=== PATIENT | female | born 1955 | race Caucasian/White ===

== ENCOUNTER → 2018-06-11 16:42 | Outpatient (CLI) | payer OTHER, MEDICAID, SELFPAY ==
[2018-06-11 17:34] LABS: INR 1.1 (0.9-1.3); Prothrombin Time 11.9 SECONDS (10.1-12.7)
[2018-06-11 17:36] LABS: PTT Partial Thromboplastin Tim 32 SECONDS (26.4-36.2)
[2018-06-11 17:40] LABS: Add Manual Diff / Slide Review NO; Basophils Percent Auto 0.8 % (0-2); Eosinophils Percent Auto 1.7 % (2-4); Hematocrit 43.8 % (36-46); Hemoglobin 14.6 g/dL (12.0-16.0); Lymphocytes Percent Auto 8.7 % (25-40); Mean Corpuscular HGB Conc 33.3 % (30-36); Mean Corpuscular Hemoglobin 29.3 PG (26-34); Mean Corpuscular Volume 87.9 fL (80-100); Monocytes Percent Auto 13.3 % (3-14); Neutrophils Absolute Auto 4400 /uL (3000-5900); Neutrophils Percent Auto 75.5 % (50-75); Platelet Count 77 X10^3/uL (150-400); Red Blood Cell Count 4.98 X10^6/uL (4.0-5.2); Red Cell Distribution Width 15.6 % (11.6-14.8); White Blood Cell Count 5.8 X10^3/uL (4.5-11.0)
[2018-06-11 17:42] LABS: Alanine Aminotransferase 25 IU/L (9-52); Albumin 4.2 g/dL (3.5-5.0); Albumin Globulin Ratio 1.2 (1.0-2.8); Alkaline Phosphatase 94 U/L (38-126); Aspartate Aminotransferase 42 IU/L (14-36); BUN Creatinine Ratio 27.8 (6-22); Bilirubin Total 0.8 mg/dL (0.2-1.3); Bilirubin Unconjugated 0.4 mg/dL (0.0-1.1); Blood Urea Nitrogen 25 mg/dL (7-17); Calcium 8.9 mg/dL (8.4-10.2); Carbon Dioxide 27 mmol/L (22-32); Chloride 103 mmol/L (98-107); Estimated Glomerular Filt Rate > 60.0 mL/min (>60); Globulin 3.4 g/dL (1.7-4.1); Glucose 139 mg/dL (80-110); HEMOLYSIS < 15 (0-50); Potassium 4.5 mmol/L (3.4-5.1); Sodium 142 mmol/L (137-145); Total Protein 7.6 g/dL (6.3-8.2)
== END ==
PROVIDERS: PCP Physician Assistant; Visit Provider Internal Medicine Gastroenterology
DX: K74.60 Unspecified cirrhosis of liver (principal); K72.90 Hepatic failure, unspecified without coma
CPT/HCPCS: 36415; 80048; 80076; 85025; 85610; 85730

== ENCOUNTER → 2018-12-11 16:48 | Outpatient (CLI) | payer OTHER, MEDICAID, SELFPAY ==
--- NOTE | 2018-12-11 | DI.RAD.S_ITS ---
PROCEDURE: XR CHEST 2V INDICATIONS: Chronic ecvmw-pbnfml-atey disease TECHNIQUE: 2 views of the chest were acquired. COMPARISON: [facility], CHEST 2 VIEW, 11/11/2013, 17:19. [facility], , CHEST 2 VIEW, 12/07/2010, 10:30. FINDINGS: Surgical changes and devices: None. Lungs and pleura: Lungs are abnormal with the prominently reduced inspiratory volume than a chronic interstitial prominence previously present. Linear stranding in each lung base by appearance is more likely atelectasis than pneumonia.. No pleural effusions or pneumothorax. Mediastinum: Mediastinal contours are normal. Heart size is normal. Bones and chest wall: No suspicious bony abnormalities. Soft tissues appear unremarkable. IMPRESSION: Reduced inspiratory volume, chronic interstitial prominence, no definite acute disease is found. Dictated by: Kit Deras M.D. on 12/11/2018 at 17:24 Approved by: Kit Deras M.D. on 12/11/2018 at 17:25
== END ==
PROVIDERS: PCP Physician Assistant; Visit Provider Physician Assistant
DX: D89.811 Chronic graft-versus-host disease (principal); R06.00 Dyspnea, unspecified
CPT/HCPCS: 71046

== ENCOUNTER → 2019-01-30 14:25 | Outpatient (ROUT) | payer OTHER, MEDICAID, SELFPAY ==
[2019-01-30 14:53] LABS: Add Manual Diff / Slide Review NO; Basophils Absolute Auto 100 /uL (0-100); Basophils Percent Auto 1.4 % (0-2); Eosinophils Absolute Auto 200 /uL (0-450); Eosinophils Percent Auto 3.7 % (2-4); Hematocrit 42.4 % (36-46); Hemoglobin 14.4 g/dL (12.0-16.0); Lymphocytes Absolute Auto 500 /uL (1100-4500); Lymphocytes Percent Auto 11.7 % (25-40); Mean Corpuscular Volume 88.3 fL (80-100); Monocytes Absolute Auto 600 /uL (0-900); Monocytes Percent Auto 13.6 % (3-14); Neutrophils Absolute Auto 3200 /uL (1500-7000); Neutrophils Percent Auto 69.6 % (50-75); Platelet Count 68 X10^3/uL (150-400); Red Cell Distribution Width 15.3 % (11.6-14.8); White Blood Cell Count 4.6 X10^3/uL (4.5-11.0)
[2019-01-30 15:31] LABS: Free T4, Direct Thyroxine 1.02 ng/dL (0.78-2.19)
[2019-01-30 15:44] LABS: Alanine Aminotransferase 21 IU/L (9-52); Albumin Globulin Ratio 1.1 (1.0-2.8); Alkaline Phosphatase 113 U/L (38-126); Aspartate Aminotransferase 38 IU/L (14-36); BUN Creatinine Ratio 26.4 (6-22); Bilirubin Total 1.1 mg/dL (0.2-1.3); Blood Urea Nitrogen 29 mg/dL (7-17); Calcium 8.9 mg/dL (8.4-10.2); Carbon Dioxide 25 mmol/L (22-32); Chloride 103 mmol/L (98-107); Cholesterol 202 mg/dL (140-199); Globulin 3.6 g/dL (1.7-4.1); Glucose 197 mg/dL (80-110); HDL Cholesterol 51 mg/dL (40-60); HEMOLYSIS < 15 (0-50); LDL Cholesterol Calculated 106 mg/dL (<100); Potassium 4.5 mmol/L (3.4-5.1); Sodium 140 mmol/L (137-145); Total Protein 7.6 g/dL (6.3-8.2); Triglycerides 223 mg/dL (35-150)
[2019-01-30 15:45] LABS: Thyroid Stimulating Hormone 4.75 uIU/mL (0.47-4.68)
[2019-01-30 17:11] LABS: Vitamin D 25 Hydroxy (D3) 64.7 ng/mL (30.0-100.0)
[2019-02-03 15:18] LABS: Parathyroid Hormone Int 77 pg/mL (14-64)
== END ==
PROVIDERS: PCP Physician Assistant; Visit Provider Internal Medicine
DX: D64.9 Anemia, unspecified (principal); D89.811 Chronic graft-versus-host disease; E03.9 Hypothyroidism, unspecified; E21.3 Hyperparathyroidism, unspecified; E55.9 Vitamin D deficiency, unspecified; E78.49 Other hyperlipidemia
CPT/HCPCS: 80053; 80061; 82306; 83970; 84439; 84443; 85025

== ENCOUNTER 2019-07-06 15:43 | Emergency (ER) | payer MEDICARE, MEDICAID, SELFPAY ==
[2019-07-06] VITALS (19 sets, daily range): BP systolic 105–158; BP diastolic 49–77; PULSE 71–87; RESP 17–26; O2SAT 93–99
--- NOTE | 2019-07-06 15:49 | DI.RAD.S_ITS ---
PROCEDURE: XR CHEST 1V INDICATIONS: chest pain TECHNIQUE: One view of the chest was acquired. COMPARISON: [facility], CR, XR CHEST 2V, 12/11/2018, 17:07. FINDINGS: Surgical changes and devices: None. Lungs and pleura: Linear areas of increased density are evident at the left lung base, laterally. Slight increased density is evident at the diaphragm on the right, which is mildly elevated. Mediastinum: Mediastinal contours appear normal. Heart size is borderline enlarged. Bones and chest wall: No suspicious bony lesions. Overlying soft tissues appear unremarkable. IMPRESSION: Mild bibasilar scarring versus atelectasis. No acute cardiopulmonary process is appreciated. Dictated by: Yves Jaimes M.D. on 07/06/2019 at 15:28 Approved by: Yves Jaimes M.D. on 07/06/2019 at 15:28
[2019-07-06 16:17] LABS: Add Manual Diff / Slide Review NO; Basophils Absolute Auto 0 /uL (0-100); Basophils Percent Auto 1.1 % (0-2); Eosinophils Absolute Auto 100 /uL (0-450); Eosinophils Percent Auto 2.6 % (2-4); Hematocrit 44.6 % (36-46); Hemoglobin 15.2 g/dL (12.0-16.0); Lymphocytes Absolute Auto 400 /uL (1100-4500); Mean Corpuscular Hemoglobin 29.7 PG (26-34); Mean Corpuscular Volume 87.4 fL (80-100); Monocytes Absolute Auto 300 /uL (0-900); Monocytes Percent Auto 7.6 % (3-14); Neutrophils Absolute Auto 3500 /uL (1500-7000); Neutrophils Percent Auto 78.7 % (50-75); Platelet Count 71 X10^3/uL (150-400); Red Cell Distribution Width 14.8 % (11.6-14.8); White Blood Cell Count 4.4 X10^3/uL (4.5-11.0)
[2019-07-06 16:23] LABS: Prothrombin Time 12.1 SECONDS (10.1-12.7)
[2019-07-06 16:27] LABS: Alanine Aminotransferase 16 IU/L (<35); Albumin 4.3 g/dL (3.5-5.0); Albumin Globulin Ratio 1.1 (1.0-2.8); Alkaline Phosphatase 99 U/L (38-126); Aspartate Aminotransferase 50 IU/L (14-36); BUN Creatinine Ratio 32.2 (6-22); Bilirubin Total 1.3 mg/dL (0.2-1.3); Blood Urea Nitrogen 29 mg/dL (7-17); Calcium 9.3 mg/dL (8.4-10.2); Carbon Dioxide 25 mmol/L (22-32); Chloride 103 mmol/L (98-107); Creatine Kinase 154 U/L (30-135); Estimated Glomerular Filt Rate > 60.0 mL/min (>60); Globulin 3.8 g/dL (1.7-4.1); Glucose 219 mg/dL (80-110); HEMOLYSIS < 15 (0-50); Lipase 231 U/L (23-300); Potassium 4.4 mmol/L (3.4-5.1); Sodium 138 mmol/L (137-145); Total Protein 8.1 g/dL (6.3-8.2)
[2019-07-06 16:31] LABS: PTT Partial Thromboplastin Tim 35 SECONDS (26.4-36.2)
--- NOTE | 2019-07-06 16:56 | ED_ITS ---
HPI - Chest Pain General Chief Complaint: Chest Pain Stated Complaint: CHEST PAIN SHOULDER PAIN Time Seen by Provider: 07/06/19 16:55 Source: patient Mode of arrival: Ambulatory History of Present Illness HPI narrative: 64-year-old woman with 4 days of chest pain worsening today. She describes central chest pain radiating through to shoulder blades and up to her neck bilaterally she states that she is always slightly short of breath has not had any vomiting diarrhea fevers and no specific cough. She has a complex medical history status post stem cell transplant for leukemia. She has developed cirrhosis with mild encephalopathy from the anti-rejection drugs. 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 She also has encephalopathy and takes rifaximin to help with elevated ammonia. Related Data Home Medications Medication Instructions Recorded Confirmed levothyroxine 25 mcg PO DAILY #0 07/17/11 07/06/19 cinacalcet [Sensipar] 30 mg PO DAILY #0 12/16/16 07/06/19 spironolactone 25 mg DAILY #0 12/16/16 07/06/19 lactulose 10 gram/15 mL oral 30 ml PO TID 30 Days #946 ml 06/25/18 07/06/19 solution rifaximin 550 mg tablet 550 mg PO BID 30 Days #60 tab 06/25/18 07/06/19 citalopram 10 mg tablet 10 mg PO DAILY tab 08/27/18 07/06/19 albuterol sulfate [Ventolin HFA] 1 puff INHALATION PRN PRN 07/06/19 07/06/19 insulin lispro [Humalog KwikPen See Rx Instructions .ROUTE .COMPLEX 07/06/19 07/06/19 Insulin] insulin regular hum U-500 conc See Rx Instructions .ROUTE .COMPLEX 07/06/19 07/06/19 [Humulin R U-500 (Conc) Kwikpen] secukinumab [Cosentyx Pen] 0 mg SUBCUT DAILY 07/06/19 07/06/19 Allergies Allergy/AdvReac Type Severity Reaction Status Date / Time hydrocodone Allergy Unknown Unverified 03/18/18 09:42 meperidine Allergy Unknown Unverified 03/18/18 09:42 morphine Allergy Unknown Unverified 03/18/18 09:42 oxycodone Allergy Unknown Unverified 03/18/18 09:42 Review of Systems Review of Systems Narrative: positive for memory dysfunction and confusion secondary to her elevated ammonia levels. Scleroderma with multiple skin changes. Chronic dyspnea secondary to stem cell transplant. Remainder of review of systems is otherwise unremarkable except as noted in the HPI Patient History Social History Smoking Status: Never smoker Smoking Status: Never smoker Exam Narrative Exam Narrative: General: Frail appearing, in no acute distress. Able to give a complete history, speaking in full sentences HEENT: Moist mucous membranes, normal sclera with reactive pupils, Neck: No JVD, supple Respiratory: Lungs are clear to auscultation, no wheezing no rales no rhonchi. Full and symmetrical air movement Cardiac: Regular rate and rhythm no murmurs no bruits Abdomen: Soft nontender good bowel tones, no flank pain Skin: With scleroderma and fibrous skin Neurologic: Grossly neurologically intact with no obvious asymmetries. Mild confusion that she attributes to her anxiety, sleep loss and ammonia level Extremities: No trauma Psych: Cooperative Initial Vital Signs Initial Vital Signs: Vital Signs Pulse Rate 76 07/06/19 15:56 Respiratory Rate 18 07/06/19 15:56 Blood Pressure 138/74 07/06/19 15:56 Pulse Oximetry 98 07/06/19 15:56 Course Course Course Narrative: Four days of chest pain getting worse this morning. Troponin is significantly elevated at 1.34. Her EKG does have abnormalities with ST elevation in lead [address] elevation in AVF with slight ST depression in aVL. 1 mm of elevation in AVR with no significant ST changes across the precordium. Will begin heparin and nitrates and assume that this is an acute coronary syndrome if not a STEMI evolving over the last 4 days. With her complicated medical history all of her medical care is at the [facility] including her previous transplant, GI care, at diabetic care and she would prefer that her medical care be managed at the [facility]. Will contact the transfer center and talked to the Cardiology service to see if they're willing to consult with medicine admit for this woman Decision to Admit Date: 07/06/19 Decision to Admit time: 17:23 Orders Ordered: ED Orders 07/06/19 15:49 XR chest 1V Stat 07/06/19 15:54 EKG-12 Lead Stat 07/06/19 16:09 Complete Blood Count AUTO DIFF Stat Comprehensive Metabolic Panel Stat Lipase Stat Partial Thromboplastin Time Stat Prothrombin Time INR Stat Troponin & CK Cardiac Panel Stat Nitroglycerin (Nitroglycerin) 50 mg in 250 mls @ 1.5 mls/hr IV TITRATE GERALD; Protocol Last Titration: 07/06/19 18:50 Dose: 6.67 mcg/min, 2 mls/hr Documented by: Admin: 07/06/19 17:46 Dose: 5 mcg/min, 1.5 mls/hr Documented by: KARINA Heparin Sodium/Dextrose (Heparin Drip) 25,000 unit in 500 mls @ 16.874 mls/hr IV CONT GERALD; Protocol Last Admin: 07/06/19 17:36 Dose: 12 units/kg/hr, 16.874 mls/hr Documented by: KARINA Discontinued Medications Aspirin (Aspirin Chew) 324 mg PO NOW ONE Stop: 07/06/19 17:27 Last Admin: 07/06/19 17:57 Dose: 324 mg Documented by: KARINA Heparin Sodium (Porcine) (Heparin) 4,000 unit IV NOW ONE Stop: 07/06/19 17:27 Last Admin: 07/06/19 17:34 Dose: 4,000 unit Documented by: KARINA Reevaluation(s) Reevaluation #1: Case findings labs and EKG are reviewed with Dr. Pryor. After receiving the EKG he feels that the ST changes in lead 3 subtle changes in AVF and reciprocal changes in aVL or enough to qualify for STEMI criteria and has suggested that we activate are stemming protocols. This has been done. In the meantime patient's pain is down to 1 on the nitro and heparin drips. I have reviewed with her the course of events findings physicians I've spoken with and hospital she will be going to and tried to alleviate a bit of her anxiety. She has no additional questions at this time She is hemodynamically stable she has not received metoprolol nor pressors and has not needed either. Spoke with ER physician at [facility]. Reviewed findings as well as EKG. Ambulance will be here shortly for transport to [facility] STEMI protocol has been activated at their side as well Time: 19:04 Vital Signs Vital signs: Vital Signs - 8 hr 07/06/19 15:56 07/06/19 16:05 07/06/19 16:30 Pulse Rate 76 71 77 Respiratory Rate 18 19 26 H Blood Pressure 138/74 Blood Pressure [Right Arm] 132/49 L 152/70 H Pulse Oximetry 98 98 98 07/06/19 17:46 07/06/19 18:25 Pulse Rate 87 86 Respiratory Rate 17 Blood Pressure 130/61 Blood Pressure [Right Arm] 127/63 Pulse Oximetry 98 MDM - Chest Pain Medical Records Data Attestation: I reviewed the patient's medical records. Lab Data Attestation: I reviewed the patient's lab results. Result diagrams: 07/06/19 16:09 07/06/19 16:09 Labs: Lab Results 07/06/19 07/06/19 07/06/19 Range/Units 16:09 16:09 16:09 WBC 4.4 L (4.5-11.0) X10^3/uL RBC 5.10 (4.0-5.2) X10^6/uL Hgb 15.2 (12.0-16.0) g/dL Hct 44.6 (36-46) % MCV 87.4 (80-100) fL MCH 29.7 (26-34) PG MCHC 34.0 (30-36) % RDW 14.8 (11.6-14.8) % Plt Count 71 L (150-400) X10^3/uL Neut % (Auto) 78.7 H (50-75) % Lymph % (Auto) 10.0 L (25-40) % [place] % (Auto) 7.6 (3-14) % Eos % (Auto) 2.6 (2-4) % Baso % (Auto) 1.1 (0-2) % Neut # (Auto) 3500 (4484-0916) /uL Lymph # (Auto) 400 L (3245-3588) /uL [place] # (Auto) 300 (0-900) /uL Eos # (Auto) 100 (0-450) /uL Baso # (Auto) 0 (0-100) /uL PT 12.1 (10.1-12.7) SECONDS INR 1.0 (0.9-1.3) APTT 35 D (26.4-36.2) SECONDS Sodium 138 (137-145) mmol/L Potassium 4.4 (3.4-5.1) mmol/L Chloride 103 (98-107) mmol/L Carbon Dioxide 25 (22-32) mmol/L BUN 29 H (7-17) mg/dL Creatinine 0.90 (0.52-1.04) mg/dL Estimated GFR > 60.0 (>60) mL/min BUN/Creatinine Ratio 32.2 H (6-22) Glucose 219 H (80-110) mg/dL Calcium 9.3 (8.4-10.2) mg/dL Total Bilirubin 1.3 (0.2-1.3) mg/dL AST 50 H (14-36) IU/L ALT 16 (<35) IU/L Alkaline Phosphatase 99 (38-126) U/L Total Creatine Kinase 154 H (30-135) U/L CK-MB (CK-2) 12.10 H (<2.37) ng/mL CK-MB (CK-2) Rel Index 7.9 H* (1.5-5.0) % Troponin I 1.340 H* (0.01-0.034) ng/mL Total Protein 8.1 (6.3-8.2) g/dL Albumin 4.3 (3.5-5.0) g/dL Globulin 3.8 (1.7-4.1) g/dL Albumin/Globulin Ratio 1.1 (1.0-2.8) Lipase 231 (23-300) U/L Imaging Data Chest x-ray: Radiologist's impression: MPRESSION: Mild bibasilar scarring versus atelectasis. No acute cardiopulmonary process is appreciated. Dictated by: Yves Jaimes M.D. on 07/06/2019 at 15:28 ECG Data Attestation: I personally reviewed and interpreted this ECG as follows: Interpretation: Sinus rhythm at a rate of 77 ST elevation in lead III, AVR, ST depression in aVL minimal ST elevation in AVF and no ST changes anteriorly. The ST change in AVR is subtle enough that I'm not convinced there are [address] elevation. In light of her clinical presentation and 4 days of pain, I do not think that this represents STEMI at this time EKG is later reviewed by cardiology who feels that criteria for STEMI are met, STEMI activation initiated immediately after this conversation, 18:49 MDM Narrative Medical decision making narrative: Four days of chest pain with complex medical history. EKG changes initially interpreted as not meeting STEMI criteria. Wit h elevated troponin heparin and nitro restarted. Plans were made to find appropriate transfer site. When EKG was eventually reviewed by cardiology he felt that it did meet STEMI criteria. In light of that, STEMI protocols were activated and patient was transferred to [facility]. Have spoken with Kody Pryor (cardiology) Rebecca (ER), Carrie (hospitalist) at [facility]. Critical Care Time Critical Care Time Critical Care Time: Yes Total Critical Care Time: 34 Attestation: Critical Care Time [34] minutes: Critical care time is separate from other billable procedures. This critical care time includes consultation with family and other consulting doctors, review of records, and interpretation of data from labs, EKGs and imaging as well as managements of acute chest pain, multiple consultations, management of ST-elevat ion myocardial infarction Discharge Plan Departure Prescriptions: No Action lactulose 10 gram/15 mL solution 30 ml PO TID 30 Days Qty: 946 RF: 0 rifaximin 550 mg tablet 550 mg PO BID 30 Days Qty: 60 RF: 0 citalopram 10 mg tablet 10 mg PO DAILY RF: 0 levothyroxine 50 mcg Tablet 25 mcg PO DAILY Qty: 0 RF: 0 spironolactone 25 MG tablet 25 mg DAILY Qty: 0 RF: 0 cinacalcet [Sensipar] 30 MG tablet 30 mg PO DAILY Qty: 0 RF: 0 albuterol sulfate [Ventolin HFA] 90 mcg/actuation HFA aerosol inhaler 1 puff INHALATION PRN PRN (Reason: Shortness Of Breath) RF: 0 Humalog KwikPen Insulin 200 unit/mL (3 mL) insulin pen See Rx Instructions .ROUTE .COMPLEX RF: 0 Humulin R U-500 (Conc) Kwikpen 500 unit/mL (3 mL) insulin pen See Rx Instructions .ROUTE .COMPLEX RF: 0 Cosentyx Pen 150 mg/mL pen injector 0 mg SUBCUT DAILY RF: 0
--- NOTE | 2019-07-06 17:00 | PC.NURSE ---
patient has a freestyle geovani in her left upper arm to check her blood sugar. patient checking her blood sugar with a reading of [address] hernandez at bedside and patient requesting juice because her blood sugar is dropping. provider okayed patient to have orange juice.
--- NOTE | 2019-07-06 17:08 | PC.NURSE ---
1704 crit lab result trop/ckmb to MD Randle
[2019-07-06 17:09] LABS: CKMB % Relative Index 7.9 % (1.5-5.0)
[2019-07-06] MEDS: HEPARIN 5,000 UNIT/ML VIAL 4000 UNIT IV (17:34)
[2019-07-06] MEDS: HEPARIN DRIP 25,000 UNIT/500 ML IV.SOLN 16.874 UNIT IV (17:36)
[2019-07-06] MEDS: NITROGLYCERIN 50 MG/250 ML INFUS..BTL IV (17:46)
[2019-07-06] MEDS: ASPIRIN 81 MG CHEW TAB 324 MG PO (17:57)
--- NOTE | 2019-07-06 18:50 | PC.NURSE ---
Per Dr. Randle pt upgraded to STEMI. Gay Will RN arranging for STAT transfer.
== END 2019-07-06 19:20 | disposition short-term general hospital (02) ==
PROVIDERS: Emergency Provider Emergency Medicine; PCP Physician Assistant
DX: I21.3 ST elevation (STEMI) myocardial infarction of unspecified site (principal); R79.89 Other specified abnormal findings of blood chemistry; F41.9 Anxiety disorder, unspecified; F43.12 Post-traumatic stress disorder, chronic; F42.9 Obsessive-compulsive disorder, unspecified; F32.9 Major depressive disorder, single episode, unspecified; F43.10 Post-traumatic stress disorder, unspecified; F32.89 Other specified depressive episodes; F42.2 Mixed obsessional thoughts and acts; F41.1 Generalized anxiety disorder; R07.9 Chest pain, unspecified
CPT/HCPCS: 36415; 71045; 80053; 82550; 82553; 83690; 84484; 85025; 85610; 85730; 90834; 93005; 93010; 96365; 96368; 96375; 99284; 99291; 99292; J1644

== ENCOUNTER 2019-11-29 16:15 | Emergency (ER) | payer MEDICARE, MEDICAID, SELFPAY ==
[2019-11-29 16:23] VITALS: BP 128/58; PULSE 78; RESP 16; TEMP 36.8; O2SAT 97; BMI 25.0
--- NOTE | 2019-11-29 16:55 | DI.RAD.S_ITS ---
PROCEDURE: XR CHEST 1V INDICATIONS: chest pain TECHNIQUE: One view of the chest was acquired. COMPARISON: [facility], [place], PET/CT SKULL BASE TO MID THIGH, 05/11/2011, 11:24. [facility], , CHEST 2 VIEW, 12/07/2010, 10:30. [facility], CHEST 2 VIEW, 11/11/2013, 17:19. [facility], , XR CHEST 2V, 12/11/2018, 17:07. [facility], XR CHEST 1V, 07/06/2019, 15:52. FINDINGS: Surgical changes and devices: None. Lungs and pleura: An incomplete inspiratory result is noted, causing a crowded appearance to the lung markings. No focal infiltrates are seen. No pneumothorax or significant pleural effusions are seen. Mediastinum: Mediastinal contours appear normal. Heart size is normal. Bones and chest wall: No suspicious bony lesions. Age-appropriate bony degenerative changes are seen. Overlying soft tissues appear unremarkable. IMPRESSION: Portable chest within normal limits. Dictated by: Brijesh Nance M.D. on 11/29/2019 at 16:19 Approved by: Brijesh Nance M.D. on 11/29/2019 at 16:20
--- NOTE | 2019-11-29 16:59 | ED_ITS ---
HPI - Chest Pain <Manuel Gómez MD - Last Filed: 11/30/19 19:40> General Chief Complaint: Chest Pain Stated Complaint: chest and back pain Time Seen by Provider: 11/29/19 16:27 History of Present Illness HPI narrative: CC: Chest pain HPI: The patient is a 64-year-old female who presents to the emergency department with pain in the center of her chest radiating to her back. She states that she has had continuous chest pain for the past week. She states that the nature the pain has been variable. She states that sometime she felt that the pain felt more like gallbladder pain. She denies any fall or injury but in June 2019 she had a myocardial infarction. The pain was worse last night and today that she came into the emergency department to be evaluated. The pain is most often sharp and burning in nature. The pain waxes and wanes in intensity. She states at times it feels like a dull achy discomfort while at other times it feels like a tight squeezing pressure. Earlier in the week it seemed to radiate to her neck into her jaw but not over the last few days. She denies it that radiated to her shoulder or her arms. She denies any fall or injury. She denies that she has had her gallbladder removed or that she has had pancreatitis in the past. The pain has been variable ranging from 7-10 over 10 in intensity. 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 She has developed cirrhosis of the liver as a result of the transplant medications. 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 Earlier today took nitroglycerin without any relief. She admits to history of diabetes mellitus but denies any seizure disorder. She has had the myocardial infarction as previously noted but denies having a stroke, congestive heart failure, asthma or COPD. She does not smoke cigarettes chew tobacco drink alcohol or use any drugs or marijuana. She complains that she has had chills and sweats without any fever. She admits to neuropathy in her legs and that earlier in the week she had a headache but not at the present time. She denies any other numbness tingling paresthesias in a seizures or paralysis other than her neuropathy. She complains that she has chronic shortness of breath and does not feel as though she is any more short of breath than usual. She has had no cough or wheezing. She has had no palpitations but has been dizzy and lightheaded. She has been intensely nauseous but has had abdominal discomfort in the epigastrium and left upper pritesh drant without reflux or heartburn. She has had no urinary symptoms and no significant diarrhea.. Related Data Home Medications Medication Instructions Recorded Confirmed levothyroxine 25 mcg PO DAILY #0 07/17/11 08/28/19 cinacalcet [Sensipar] 30 mg PO DAILY #0 12/16/16 08/28/19 rifaximin 550 mg tablet 550 mg PO BID 30 Days #60 tab 06/25/18 08/28/19 albuterol sulfate [Ventolin HFA] 1 puff INHALATION PRN PRN 07/06/19 08/28/19 aspirin 81 mg tablet,delayed 81 mg PO DAILY 08/12/19 08/28/19 release atorvastatin 40 mg tablet 40 mg PO BEDTIME 08/12/19 08/28/19 citalopram 10 mg tablet 20 mg PO DAILY tab 08/12/19 08/28/19 clopidogrel 75 mg tablet 75 mg PO DAILY 08/12/19 08/28/19 hydroxyzine HCl 25 mg tablet 25 mg PO DAILY PRN tab 08/12/19 08/28/19 insulin aspart U-100 100 unit/mL 35 unit SUBCUT BID ml 08/12/19 08/28/19 (3 mL) subcutaneous pen insulin regular hum U-500 conc 110 unit SUBCUT QACDINNER ml 08/12/19 08/28/19 metoprolol succinate 25 mg 12.5 mg PO DAILY 08/12/19 08/28/19 tablet,extended release 24 hr nitroglycerin 0.4 mg sublingual 0.4 mg SL DAILY PRN tab 08/12/19 08/28/19 tablet pantoprazole 40 mg tablet,delayed 40 mg PO DAILY 08/12/19 08/28/19 release secukinumab 150 mg/mL subcutaneous 150 mg SUBCUT .QMonthly ml 08/12/19 08/28/19 pen injector spironolactone 25 mg tablet 50 mg PO DAILY #0 tab 08/12/19 08/28/19 Allergies Allergy/AdvReac Type Severity Reaction Status Date / Time hydrocodone Allergy Unknown Verified 08/28/19 14:39 meperidine Allergy Unknown Verified 08/28/19 14:39 morphine Allergy Unknown Verified 08/28/19 14:39 oxycodone Allergy Unknown Verified 08/28/19 14:39 Review of Systems <Manuel Gómez MD - Last Filed: 11/30/19 19:40> Review of Systems Narrative: The patient's review of systems were all negative except for those mentioned in the history of present illness. Patient History <Manuel Gómez MD - Last Filed: 11/30/19 19:40> Social History Smoking Status: Never smoker Smoking Status: Never smoker Exam <Manuel Gómez MD - Last Filed: 11/30/19 19:40> Narrative Exam Narrative: PHYSICAL EXAM: CONSTITUTIONAL: Awake, Alert, Oriented, Coherent, Cooperative in NAD. Does not appear toxic or ill. The patient's speaks very softly and has a flat affect. HEAD: AT/NC EENT: PERRL, FROM of eyes, no discharge, no nystagmus MOUTH:Oral mucosa is moist and pink, posterior pharynx is without erythema or exudate. NECK: Supple, no obvious JVD, Trachea is midline without stridor, no palpable LN. SPINE: Palpationof the cervical, Thoracic, Lumbar or Sacral spine reveals no gross deformity or tenderness. No CVA tenderness. The patient's left cough stool spinal junction and ribs at about T5-6 and 7 is tender to palpation and mimics the back pain described by the patient. There is no crepitus or subcutaneous air in this location. THORAX: No deformity, retractions, . Her chest wall involving the anterior ribs under her left breast are tender to palpation. Her lower left costal sternal margin is tender to palpation and the central sternum is tender to palpation which mimics the chest pain she recently described.. LUNGS: Clear, symmetrical breath sounds without respiratory distress. HEART: Normal heart tones, regular rhythm and rate without murmur. ABDOMEN: Soft with diffuse tenderness most notably complaining in the epigastrium and left upper quadrant without guarding rebound or rigidity. There was no palpable spleen nor organomegaly. EXTREMITIES: The patient has diffuse atrophy of the muscles of her leg with significant thickening of the skin secondary to scleroderma from her bone marrow transplant. There was no appreciable pitting edema or calf tenderness. SKIN: No rash, bruising, petechiae or purpura. The skin over her legs are increased thickness and rigidity consistent with scleroderma. NEURO: Awake, alert, oriented, conversive, cranial nerves II-XII are symmetrical , moves all 4 extremities . Initial Vital Signs Initial Vital Signs: Vital Signs Temperature 98.3 F 11/29/19 16:23 Pulse Rate 78 11/29/19 16:23 Respiratory Rate 16 11/29/19 16:23 Blood Pressure 128/58 L 11/29/19 16:23 Pulse Oximetry 97 11/29/19 16:23 <Andrew Ramos DO - Last Filed: 11/30/19 01:09> Initial Vital Signs Initial Vital Signs: Vital Signs Temperature 98.3 F 11/29/19 16:23 Pulse Rate 78 11/29/19 16:23 Respiratory Rate 16 11/29/19 16:23 Blood Pressure 128/58 L 11/29/19 16:23 Pulse Oximetry 97 11/29/19 16:23 Course <Manuel Gómez MD - Last Filed: 11/30/19 19:40> Course Course Narrative: 1750: The patient's chest x-ray reveals no acute cardiopulmonary pathology. There is no infiltrates noted. 175: The patient has a mild lactic acidosis with a lactate of 2.2. The patient may be dehydrated so her IV will be increased to 1 L bolus. As result of her previous myocardial infarction in June a 2 hour troponin will be checked on the patient. Clinically I believe that the patient's chest pain is musculoskeletal in nature. 1800; the patient was informed that I was going to leave and that I would give report to Dr. Dede Gonzales and transfer care to him. The patient states that her pain and discomfort is significantly better but not completely resolved. Her pain was relieved after 15 mg of Toradol. 1812: I gave transfer of care report to Dr. Ramos. Orders Ordered: Discontinued Medications Aspirin (Aspirin Chew) 324 mg PO NOW ONE Stop: 11/29/19 16:56 Last Admin: 11/29/19 17:06 Dose: 324 mg Documented by: SCANAPO Sodium Chloride (Normal Saline 0.9%) 1,000 mls @ 150 mls/hr IV CONT GERALD Last Infusion: 11/29/19 18:54 Dose: 0 mls/hr Documented by: Infusion: 11/29/19 18:03 Dose: 1,000 mls/hr Documented by: Admin: 11/29/19 17:06 Dose: 150 mls/hr Documented by: SCANAPO Sodium Chloride (Normal Saline 0.9%) 1,000 mls @ 1,000 mls/hr IV BOLUS ONE Stop: 11/29/19 18:55 Last Admin: 11/29/19 18:03 Dose: Not Given Documented by: NÉSTOR Ketorolac Tromethamine (Toradol) 15 mg IV NOW ONE Stop: 11/29/19 17:00 Last Admin: 11/29/19 17:06 Dose: 15 mg Documented by: NÉSTOR Ondansetron HCl (Zofran) 4 mg IV NOW ONE Stop: 11/29/19 16:56 Last Admin: 11/29/19 17:06 Dose: 4 mg Documented by: NÉSTOR Vital Signs Vital signs: Vital Signs - 8 hr 11/29/19 18:56 Pulse Rate 89 Respiratory Rate 14 Blood Pressure [Right Arm] 133/60 Pulse Oximetry 97 <Andrew Ramos DO - Last Filed: 11/30/19 01:09> Orders Ordered: Discontinued Medications Aspirin (Aspirin Chew) 324 mg PO NOW ONE Stop: 11/29/19 16:56 Last Admin: 11/29/19 17:06 Dose: 324 mg Documented by: MALOUO Sodium Chloride (Normal Saline 0.9%) 1,000 mls @ 150 mls/hr IV CONT GERALD Last Infusion: 11/29/19 18:54 Dose: 0 mls/hr Documented by: Infusion: 11/29/19 18:03 Dose: 1,000 mls/hr Documented by: Admin: 11/29/19 17:06 Dose: 150 mls/hr Documented by: SCANAPO Sodium Chloride (Normal Saline 0.9%) 1,000 mls @ 1,000 mls/hr IV BOLUS ONE Stop: 11/29/19 18:55 Last Admin: 11/29/19 18:03 Dose: Not Given Documented by: NÉSTOR Ketorolac Tromethamine (Toradol) 15 mg IV NOW ONE Stop: 11/29/19 17:00 Last Admin: 11/29/19 17:06 Dose: 15 mg Documented by: NÉSTOR Ondansetron HCl (Zofran) 4 mg IV NOW ONE Stop: 11/29/19 16:56 Last Admin: 11/29/19 17:06 Dose: 4 mg Documented by: NÉSTOR Vital Signs Vital signs: Vital Signs - 8 hr 11/29/19 18:56 Pulse Rate 89 Respiratory Rate 14 Blood Pressure [Right Arm] 133/60 Pulse Oximetry 97 MDM - Chest Pain <Manuel Gómez MD - Last Filed: 11/30/19 19:40> Medical Records Data Attestation: I reviewed the patient's medical records. Lab Data Attestation: I reviewed the patient's lab results. Result diagrams: 11/29/19 16:45 11/29/19 16:45 Labs: Lab Results 11/29/19 11/29/19 11/29/19 Range/Units 16:45 16:45 16:45 WBC 8.5 (4.5-11.0) X10^3/uL RBC 4.84 (4.0-5.2) X10^6/uL Hgb 13.4 (12.0-16.0) g/dL Hct 40.3 (36-46) % MCV 83.2 (80-100) fL MCH 27.6 (26-34) PG MCHC 33.2 (30-36) % RDW 16.3 H (11.6-14.8) % Plt Count 64 L (150-400) X10^3/uL Neut % (Auto) 86.3 H (50-75) % Lymph % (Auto) 4.2 L (25-40) % [place] % (Auto) 8.1 (3-14) % Eos % (Auto) 0.5 L (2-4) % Baso % (Auto) 0.9 (0-2) % Neut # (Auto) 7300 H (7605-8161) /uL Lymph # (Auto) 400 L (3868-5952) /uL [place] # (Auto) 700 (0-900) /uL Eos # (Auto) 0 (0-450) /uL Baso # (Auto) 100 (0-100) /uL PT 12.7 (10.1-12.7) SECONDS INR 1.1 (0.9-1.3) APTT 29 D (26.4-36.2) SECONDS Sodium 138 (137-145) mmol/L Potassium 4.9 (3.4-5.1) mmol/L Chloride 100 (98-107) mmol/L Carbon Dioxide 29 (22-32) mmol/L BUN 35 H (7-17) mg/dL Creatinine 1.18 H (0.52-1.04) mg/dL Estimated GFR 46.0 L (>60) mL/min BUN/Creatinine Ratio 29.7 H (6-22) Glucose 73 L (80-110) mg/dL Lactate (0.7-2.1) mmol/L Calcium 9.6 (8.4-10.2) mg/dL Total Bilirubin 1.3 (0.2-1.3) mg/dL AST 51 H (14-36) IU/L ALT 13 (<35) IU/L Alkaline Phosphatase 92 (38-126) U/L Lactate Dehydrogenase 601 (313-618) U/L Total Creatine Kinase 49 (30-135) U/L CK-MB (CK-2) TNP CK-MB (CK-2) Rel Index TNP Troponin I < 0.012 (0.01-0.034) ng/mL Total Protein 8.7 H (6.3-8.2) g/dL Albumin 4.6 (3.5-5.0) g/dL Globulin 4.1 (1.7-4.1) g/dL Albumin/Globulin Ratio 1.1 (1.0-2.8) Lipase 215 (23-300) U/L Procalcitonin (<0.5) ng/mL 11/29/19 11/29/19 11/29/19 Range/Units 16:45 17:12 18:50 WBC (4.5-11.0) X10^3/uL RBC (4.0-5.2) X10^6/uL Hgb (12.0-16.0) g/dL Hct (36-46) % MCV (80-100) fL MCH (26-34) PG MCHC (30-36) % RDW (11.6-14.8) % Plt Count (150-400) X10^3/uL Neut % (Auto) (50-75) % Lymph % (Auto) (25-40) % [place] % (Auto) (3-14) % Eos % (Auto) (2-4) % Baso % (Auto) (0-2) % Neut # (Auto) (3938-6595) /uL Lymph # (Auto) (4523-9789) /uL [place] # (Auto) (0-900) /uL Eos # (Auto) (0-450) /uL Baso # (Auto) (0-100) /uL PT (10.1-12.7) SECONDS INR (0.9-1.3) APTT (26.4-36.2) SECONDS Sodium (137-145) mmol/L Potassium (3.4-5.1) mmol/L Chloride (98-107) mmol/L Carbon Dioxide (22-32) mmol/L BUN (7-17) mg/dL Creatinine (0.52-1.04) mg/dL Estimated GFR (>60) mL/min BUN/Creatinine Ratio (6-22) Glucose (80-110) mg/dL Lactate 2.2 H (0.7-2.1) mmol/L Calcium (8.4-10.2) mg/dL Total Bilirubin (0.2-1.3) mg/dL AST (14-36) IU/L ALT (<35) IU/L Alkaline Phosphatase (38-126) U/L Lactate Dehydrogenase (313-618) U/L Total Creatine Kinase (30-135) U/L CK-MB (CK-2) CK-MB (CK-2) Rel Index Troponin I < 0.012 (0.01-0.034) ng/mL Total Protein (6.3-8.2) g/dL Albumin (3.5-5.0) g/dL Globulin (1.7-4.1) g/dL Albumin/Globulin Ratio (1.0-2.8) Lipase (23-300) U/L Procalcitonin 0.10 (<0.5) ng/mL Urine Dip Bedside Urine Glucose Negative Bedside Urine Bilirubin - Negative Bedside Urine Ketone - Negative Urine Specific [place]ba 1.015 Bedside Urine Occult Blood - Negative Bedside Urine pH 6.0 Bedside Urine Protein - Negative Bedside Urine Urobilinogen - Negative Bedside Urine Nitrite - Negative Bedside Urine Leukocytes - Negative Esterase ECG Data Attestation: I personally reviewed and interpreted this ECG as follows: Interpretation: The patient's EKG obtained on November 29, 2019 at 16:2 5:07 a.m. reveals a ventricular rate of 75. The rhythm is sinus with prominent U waves present. The QRS duration is 78 milliseconds QTC is 393 milliseconds axis is normal. The patient's T-waves are upright in lead III and AVF. T-waves appear to be inverted in lead V1. Otherwise the patient has nonspecific ST segment changes The patient has a prominent U wave in multiple leads. <Andrew Ramos, DO - Last Filed: 11/30/19 01:09> Lab Data Labs: Lab Results 11/29/19 11/29/19 11/29/19 Range/Units 16:45 16:45 16:45 WBC 8.5 (4.5-11.0) X10^3/uL RBC 4.84 (4.0-5.2) X10^6/uL Hgb 13.4 (12.0-16.0) g/dL Hct 40.3 (36-46) % MCV 83.2 (80-100) fL MCH 27.6 (26-34) PG MCHC 33.2 (30-36) % RDW 16.3 H (11.6-14.8) % Plt Count 64 L (150-400) X10^3/uL Neut % (Auto) 86.3 H (50-75) % Lymph % (Auto) 4.2 L (25-40) % [place] % (Auto) 8.1 (3-14) % Eos % (Auto) 0.5 L (2-4) % Baso % (Auto) 0.9 (0-2) % Neut # (Auto) 7300 H (1004-2086) /uL Lymph # (Auto) 400 L (2111-2685) /uL [place] # (Auto) 700 (0-900) /uL Eos # (Auto) 0 (0-450) /uL Baso # (Auto) 100 (0-100) /uL PT 12.7 (10.1-12.7) SECONDS INR 1.1 (0.9-1.3) APTT 29 D (26.4-36.2) SECONDS Sodium 138 (137-145) mmol/L Potassium 4.9 (3.4-5.1) mmol/L Chloride 100 (98-107) mmol/L Carbon Dioxide 29 (22-32) mmol/L BUN 35 H (7-17) mg/dL Creatinine 1.18 H (0.52-1.04) mg/dL Estimated GFR 46.0 L (>60) mL/min BUN/Creatinine Ratio 29.7 H (6-22) Glucose 73 L (80-110) mg/dL Lactate (0.7-2.1) mmol/L Calcium 9.6 (8.4-10.2) mg/dL Total Bilirubin 1.3 (0.2-1.3) mg/dL AST 51 H (14-36) IU/L ALT 13 (<35) IU/L Alkaline Phosphatase 92 (38-126) U/L Lactate Dehydrogenase 601 (313-618) U/L Total Creatine Kinase 49 (30-135) U/L CK-MB (CK-2) TNP CK-MB (CK-2) Rel Index TNP Troponin I < 0.012 (0.01-0.034) ng/mL Total Protein 8.7 H (6.3-8.2) g/dL Albumin 4.6 (3.5-5.0) g/dL Globulin 4.1 (1.7-4.1) g/dL Albumin/Globulin Ratio 1.1 (1.0-2.8) Lipase 215 (23-300) U/L Procalcitonin (<0.5) ng/mL 11/29/19 11/29/19 11/29/19 Range/Units 16:45 17:12 18:50 WBC (4.5-11.0) X10^3/uL RBC (4.0-5.2) X10^6/uL Hgb (12.0-16.0) g/dL Hct (36-46) % MCV (80-100) fL MCH (26-34) PG MCHC (30-36) % RDW (11.6-14.8) % Plt Count (150-400) X10^3/uL Neut % (Auto) (50-75) % Lymph % (Auto) (25-40) % [place] % (Auto) (3-14) % Eos % (Auto) (2-4) % Baso % (Auto) (0-2) % Neut # (Auto) (4641-3640) /uL Lymph # (Auto) (3315-0652) /uL [place] # (Auto) (0-900) /uL Eos # (Auto) (0-450) /uL Baso # (Auto) (0-100) /uL PT (10.1-12.7) SECONDS INR (0.9-1.3) APTT (26.4-36.2) SECONDS Sodium (137-145) mmol/L Potassium (3.4-5.1) mmol/L Chloride (98-107) mmol/L Carbon Dioxide (22-32) mmol/L BUN (7-17) mg/dL Creatinine (0.52-1.04) mg/dL Estimated GFR (>60) mL/min BUN/Creatinine Ratio (6-22) Glucose (80-110) mg/dL Lactate 2.2 H (0.7-2.1) mmol/L Calcium (8.4-10.2) mg/dL Total Bilirubin (0.2-1.3) mg/dL AST (14-36) IU/L ALT (<35) IU/L Alkaline Phosphatase (38-126) U/L Lactate Dehydrogenase (313-618) U/L Total Creatine Kinase (30-135) U/L CK-MB (CK-2) CK-MB (CK-2) Rel Index Troponin I < 0.012 (0.01-0.034) ng/mL Total Protein (6.3-8.2) g/dL Albumin (3.5-5.0) g/dL Globulin (1.7-4.1) g/dL Albumin/Globulin Ratio (1.0-2.8) Lipase (23-300) U/L Procalcitonin 0.10 (<0.5) ng/mL Urine Dip Bedside Urine Glucose Negative Bedside Urine Bilirubin - Negative Bedside Urine Ketone - Negative Urine Specific [place] 1.015 Bedside Urine Occult Blood - Negative Bedside Urine pH 6.0 Bedside Urine Protein - Negative Bedside Urine Urobilinogen - Negative Bedside Urine Nitrite - Negative Bedside Urine Leukocytes - Negative Esterase MDM Narrative Medical decision making narrative: Dr Ramos: Received turned over from Dr. Gómez. Reviewed patient's history and physical. Review patient's labs and x- ray and EKG. Perform my own independent exam. Repeat troponin negative. Repeat EKG is sinus rhythm ventricular rate 88, LVH, nonspecific ST T wave abnormality. While patient was waiting for 2nd troponin the individual in the room with her (who states she is a nurse) attempted to take the patient's temperature with our wall thermometer. She came out and told me that the patient had a temperature of 102. When I went in to evaluate the patient I took the temperature myself and this resulted in an oral temperature of 100.2?. Review the patient's chest x-ray which showed no signs of pneumonia. I agree that the patient did have reproducible left-sided discomfort however the patient states this was not all of the symptoms that she has been having. I did decide to test the patient for COVID-19. I feel we can hold on antibiotics for now. Informed her that we would contact her for both positive and negative results. Will have her contact her primary provider and her refining machine operator for follow-up. She was given strict return precautions. She expressed understanding and agreement. Discharge Plan Departure Patient Disposition: Home Clinical Impression: Atypical chest pain, History of bone marrow transplant, Chest wall tenderness, H/O acute myocardial infarction, AML (acute myeloid leukemia) in remission, H/O cirrhosis, Cutaneous scleroderma Discharge Date/Time: 11/29/19 19:58 Instructions: DI for Atypical Chest Pain Activity Restrictions/Additional Instructions: Continue all of your medications as directed. Today we did test you for COVID- 19. This test takes anywhere from 2-5 days to result. We will contact you for any positive or negative results. Recommend that tomorrow you contact your refining machine operator and your primary provider for a follow-up. Return to the emergency department for any new or worsening symptoms Prescriptions: No Action rifaximin 550 mg tablet 550 mg PO BID 30 Days Qty: 60 RF: 0 levothyroxine 50 mcg Tablet 25 mcg PO DAILY Qty: 0 RF: 0 cinacalcet [Sensipar] 30 MG tablet 30 mg PO DAILY Qty: 0 RF: 0 aspirin 81 mg tablet,delayed release (DR/EC) 81 mg PO DAILY RF: 0 atorvastatin 40 mg tablet 40 mg PO BEDTIME RF: 0 clopidogrel 75 mg tablet 75 mg PO DAILY RF: 0 hydroxyzine HCl 25 mg tablet 25 mg PO DAILY PRN (Reason: anxiety) RF: 0 metoprolol succinate 25 mg tablet extended release 24 hr 12.5 mg PO DAILY RF: 0 nitroglycerin 0.4 mg tablet, sublingual 0.4 mg SL DAILY PRN (Reason: chest pain) RF: 0 pantoprazole 40 mg tablet,delayed release (DR/EC) 40 mg PO DAILY RF: 0 citalopram 10 mg tablet 20 mg PO DAILY RF: 0 Cosentyx Pen 150 mg/mL pen injector 150 mg SUBCUT .QMonthly RF: 0 spironolactone 25 mg tablet 50 mg PO DAILY Qty: 0 RF: 0 insulin aspart U-100 100 unit/mL (3 mL) insulin pen 35 unit SUBCUT BID RF: 0 Humulin R U-500 (Conc) Kwikpen 500 unit/mL (3 mL) insulin pen 110 unit subcut QACDINNER RF: 0 albuterol sulfate [Ventolin HFA] 90 mcg/actuation HFA aerosol inhaler 1 puff INHALATION PRN PRN (Reason: Shortness Of Breath) RF: 0 Referrals: Timur Schwartz MD [Primary Care Provider] -
[2019-11-29] MEDS: KETOROLAC 60 MG/2 ML VIAL 15 MG IV (17:06)
[2019-11-29] MEDS: ASPIRIN 81 MG CHEW TAB 324 MG PO (17:06)
[2019-11-29] MEDS: SODIUM CHLORIDE 0.9% 1,000 ML 150 ML IV (17:06)
[2019-11-29] MEDS: ONDANSETRON 4 MG/2 ML INJ IV (17:06)
[2019-11-29 17:07] LABS: Add Manual Diff / Slide Review NO; Basophils Absolute Auto 100 /uL (0-100); Basophils Percent Auto 0.9 % (0-2); Eosinophils Absolute Auto 0 /uL (0-450); Eosinophils Percent Auto 0.5 % (2-4); Hematocrit 40.3 % (36-46); Hemoglobin 13.4 g/dL (12.0-16.0); Lymphocytes Absolute Auto 400 /uL (1100-4500); Lymphocytes Percent Auto 4.2 % (25-40); Mean Corpuscular HGB Conc 33.2 % (30-36); Mean Corpuscular Hemoglobin 27.6 PG (26-34); Mean Corpuscular Volume 83.2 fL (80-100); Monocytes Absolute Auto 700 /uL (0-900); Monocytes Percent Auto 8.1 % (3-14); Neutrophils Absolute Auto 7300 /uL (1500-7000); Neutrophils Percent Auto 86.3 % (50-75); Platelet Count 64 X10^3/uL (150-400); Red Blood Cell Count 4.84 X10^6/uL (4.0-5.2); Red Cell Distribution Width 16.3 % (11.6-14.8); White Blood Cell Count 8.5 X10^3/uL (4.5-11.0)
[2019-11-29 17:08] LABS: INR 1.1 (0.9-1.3); Prothrombin Time 12.7 SECONDS (10.1-12.7)
[2019-11-29 17:10] LABS: PTT Partial Thromboplastin Tim 29 SECONDS (26.4-36.2)
[2019-11-29 17:25] LABS: Alanine Aminotransferase 13 IU/L (<35); Albumin 4.6 g/dL (3.5-5.0); Albumin Globulin Ratio 1.1 (1.0-2.8); Alkaline Phosphatase 92 U/L (38-126); Aspartate Aminotransferase 51 IU/L (14-36); BUN Creatinine Ratio 29.7 (6-22); Bilirubin Total 1.3 mg/dL (0.2-1.3); Blood Urea Nitrogen 35 mg/dL (7-17); Calcium 9.6 mg/dL (8.4-10.2); Carbon Dioxide 29 mmol/L (22-32); Chloride 100 mmol/L (98-107); Creatine Kinase 49 U/L (30-135); Globulin 4.1 g/dL (1.7-4.1); Glucose 73 mg/dL (80-110); Lactate Dehydrogenase 601 U/L (313-618); Lipase 215 U/L (23-300); Potassium 4.9 mmol/L (3.4-5.1); Sodium 138 mmol/L (137-145); Total Protein 8.7 g/dL (6.3-8.2)
[2019-11-29 17:27] LABS: Lactate (Lactic Acid) 2.2 mmol/L (0.7-2.1)
[2019-11-29 17:30] LABS: HEMOLYSIS 63 (0-50)
[2019-11-29 17:37] LABS: Troponin I < 0.012 ng/mL (0.01-0.034)
[2019-11-29 18:56] VITALS: BP 133/60; PULSE 89; RESP 14; O2SAT 97
[2019-11-29 19:14] LABS: Reflexed Lactate in 2 Hours Y
[2019-11-29 19:27] LABS: Troponin I < 0.012 ng/mL (0.01-0.034)
[2019-12-02 04:31] LABS: COVID19 Sendout Not Detected (Not Detected)
== END 2019-11-29 19:58 | disposition home or self-care (01) ==
PROVIDERS: Emergency Medicine; Emergency Provider Emergency Medicine; PCP Internal Medicine
DX: Z03.818 Encounter for observation for suspected exposure to other biological agents ruled out (principal); R07.89 Other chest pain; I25.2 Old myocardial infarction; C92.01 Acute myeloblastic leukemia, in remission; M34.9 Systemic sclerosis, unspecified; R06.02 Shortness of breath
CPT/HCPCS: 36415; 71045; 80053; 81003; 82550; 83605; 83615; 83690; 84145; 84484; 85025; 85610; 85730; 87635; 93005; 96361; 96374; 96375; 99284; J1885; J2405

== ENCOUNTER → 2019-12-09 16:18 | Outpatient (CLI) | payer MEDICARE, MEDICAID, SELFPAY ==
--- NOTE | 2019-12-09 | DI.US.S_ITS ---
PROCEDURE: US ABDOMEN COMPLETE INDICATIONS: EPIGASTRIC PAIN TECHNIQUE: Real-time scanning was performed of the abdominal and retroperitoneal organs, with image documentation. COMPARISON: None. FINDINGS: Liver: Liver is normal in size. A mildly lobular surface can be seen. Gallbladder: Sludge and stones are seen. No findings of gallstones or sludge are seen. The gallbladder wall is not thickened, measuring 3 mm or less. No specific pericholecystic fluid is seen. The sonographic Carmichael sign is regarded to be positive, with tenderness elicited when scanning over the gallbladder. Biliary ducts: Intrahepatic bile ducts are non-dilated. Extrahepatic bile duct caliber measures 5 mm. Normal is 6-7 mm or less in diameter, or 10 mm or less post-cholecystectomy. Pancreas: Not well-seen. Spleen: Spleen is enlarged measuring 14.7 cm. Kidneys: Kidneys are normal in size and echotexture. Right kidney measures 10.5 cm long; left kidney measures 10 cm long. No hydronephrosis or nephrolithiasis. No solid masses. Bilateral thinning of the cortex can be seen. Aorta: Visualized aorta is normal in caliber at less than 3 cm. Iliacs: Not seen. IVC: Intrahepatic inferior vena cava is patent. Miscellaneous: No free abdominal fluid. IMPRESSION: Gallstones and sludge can be seen, with a positive sonographic Carmichael sign. Please correlate with physical examination findings, patient presentation, and laboratory values for cholecystitis. There is no biliary dilatation seen. The liver demonstrates a mildly nodular contour and there is splenomegaly. Please correlate with potential cirrhosis. Bilateral thinning of the renal cortex. Please correlate with renal insufficiency/chronic renal disease. Dictated by: Brijesh Nance M.D. on 12/09/2019 at 16:32 Approved by: Brijesh Nance M.D. on 12/09/2019 at 16:34
[2019-12-09 17:25] LABS: Cholesterol 122 mg/dL (140-199); HDL Cholesterol 45 mg/dL (40-60); LDL Cholesterol Calculated 52 mg/dL (<100); Triglycerides 126 mg/dL (35-150)
[2019-12-09 18:30] LABS: TSH w/ Reflex to FT4 3.34 uIU/mL (0.47-4.68)
== END ==
PROVIDERS: PCP Internal Medicine; Referring Provider Internal Medicine; Visit Provider Internal Medicine
DX: R10.13 Epigastric pain (principal); K80.20 Calculus of gallbladder without cholecystitis without obstruction; K83.8 Other specified diseases of biliary tract; R16.1 Splenomegaly, not elsewhere classified
CPT/HCPCS: 36415; 76700; 80061; 84443

== ENCOUNTER → 2020-01-08 09:01 | Outpatient (CLI) | payer MEDICARE, MEDICAID, SELFPAY ==
--- NOTE | 2020-01-08 09:34 | DI.ECHO.S_ITS ---
Echocardiogram Report + + :Name: MALISSA DOTSON Study Date: 01/08/2020 Height: 65 in : :[facility] Weight: 143 lb : : Gender: Other BSA: 1.7 m2 : :: 1955 Age: 64 yrs BP: 108/54 mmHg: :Reason For Study: CAD : : Performed By: Jennifer Stauffer : :Referring: VEENA QUIROS : + + Interpretation Summary The left ventricular ejection fraction is normal. There is mild proximal septal thickening noted. There are no focal wall motion abnormalities. The right ventricle is normal size. The right ventricular systolic function is normal. Right ventricular systolic pressure is estimated to be 21 mmHg plus the clinically estimated CVP which cannot be estimated on this exam. There is moderate mitral annular calcification. There is no mitral valve stenosis. -Compared to the prior echocardiogram, the anterior wall contractility has improved. Procedure: A two-dimensional transthoracic echocardiogram with color flow and Doppler was performed. The study quality was technically adequate. Comparison is made with the echocardiogram of 07/07/2019. A contrast injection of Definity was performed to improve assessment of LV function. The patient was in normal sinus rhythm during the exam. Left Ventricle: There is mild proximal septal thickening noted. There is no thrombus. The ejection fraction is estimated to be 60-65%. The left ventricular ejection fraction is normal. There are no focal wall motion abnormalities. Diastolic parameters suggest a relaxation abnormality of the left ventricle, consistent with probable normal filling pressures. Right Ventricle: The right ventricle is normal size. The right ventricular systolic function is normal. Atria: Both atria are mildly dilated. There is no Doppler evidence for an interatrial shunt. Mitral Valve: There is moderate mitral annular calcification. There is no mitral valve stenosis. There is no mitral regurgitation noted. Aortic Valve: The aortic valve is trileaflet. The aortic valve opens well. No aortic regurgitation is present. Tricuspid Valve: The tricuspid valve is normal in structure and function. There is a trace or physiologic amount of tricuspid regurgitation. Right ventricular systolic pressure is estimated to be 21 mmHg plus the clinically estimated CVP which cannot be estimated on this exam. Pulmonic Valve: The pulmonic valve is normal in structure and function. There is a trace or physiologic amount of pulmonic regurgitation. Great Vessels: The aortic root is normal size. The ascending aorta is at the upper limits of normal in size. The aortic arch is normal in size. The inferior vena cava was not visualized. Pericardium/ Pleura There is no pericardial effusion. MMode/2D Measurements & Calculations LVIDd: 4.4 cm LVOT diam: 1.9 cm LVIDs: 2.2 cm Ao root diam: 3.3 cm FS: 50.4 % Aortic Jxn: 2.6 cm EPSS: 0.30 cm asc Aorta Diam: 3.4 cm IVSd: 0.96 cm Ao Arch Diam (Prox Trans): 2.8 cm LVPWd: 0.71 cm LV hrenandez. diameter/BSA (cm/m^2): 2.6 LV sys. diameter/BSA (cm/m^2): 1.3 LA A2 area: 16.3 cm2 RA long axis: 4.5 cm LA A4 area: 24.3 cm2 RA area: 13.2 cm2 LA length (vol): 5.4 cm RA vol: 32.5 ml LA vol: 61.8 ml RA : 18.9 ml/m2 LA vol index: 36.0 ml/m2 RVD1 (basal): 4.2 cm RVD2 (mid): 2.8 cm TAPSE: 2.4 cm Doppler Measurements & Calculations Ao V2 max: 101.9 cm/sec LVOT Max Yg: 70.5 cm/sec Ao V2 mean: 72.7 cm/sec LV V1 max P.0 mmHg Ao max P.2 mmHg LV V1 VTI: 20.7 cm Ao mean P.4 mmHg JUNG(I,D): 2.3 cm2 Ao V2 VTI: 25.7 cm JUNG(V,D): 2.0 cm2 sev ratio: 0.80 JUNG indexed to BSA (cm^2/m^2): 1.3 MV E max yg: 88.4 cm/sec TR max yg: 227.9 cm/sec MV A max yg: 96.9 cm/sec TR max P.8 mmHg MV E/A: 0.91 PA V2 max: 76.3 cm/sec Med Peak E' Yg: 7.0 cm/sec PA V2 mean: 58.4 cm/sec E/E' med: 12.7 PA mean P.5 mmHg Lat Peak E' Yg: 7.3 cm/sec PA Accel Time: 0.10 sec E/E' lat: 12.2 E/e' average: 12.4 MV dec time: 0.24 sec MV P1/2t: 70.1 msec MV P1/2t max yg: 88.5 cm/sec SV(LVOT): 59.3 ml MVA(P1/2t): 3.1 cm2 Electronically signed by: Veena Quiros M.D. on Reading Physician:01/11/2020 02:21 PM
== END ==
PROVIDERS: PCP Internal Medicine; Referring Provider Hospitalist; Visit Provider Hospitalist
DX: I25.10 Atherosclerotic heart disease of native coronary artery without angina pectoris (principal)
CPT/HCPCS: 93306; Q9957

== ENCOUNTER → 2020-03-11 15:11 | Outpatient (CLI) | payer MEDICARE, OTHER, MEDICAID, SELFPAY ==
[2020-03-12 08:35] LABS: COVID19 Sendout Not Detected (Not Detect)
== END ==
PROVIDERS: PCP Internal Medicine; Visit Provider Physician Assistant
DX: Z11.59 Encounter for screening for other viral diseases (principal)
CPT/HCPCS: 87635

== ENCOUNTER → 2020-04-19 18:39 | Outpatient (ROUT) | payer MEDICARE, MEDICAID, SELFPAY ==
[2020-04-19 19:12] LABS: Hematocrit 36.9 % (36-46); Mean Corpuscular HGB Conc 32.5 % (30-36); Mean Corpuscular Hemoglobin 26.5 PG (26-34); Mean Corpuscular Volume 81.5 fL (80-100); Platelet Count 82 X10^3/uL (150-400); Red Blood Cell Count 4.53 X10^6/uL (4.0-5.2); Red Cell Distribution Width 17.5 % (11.6-14.8); White Blood Cell Count 5.1 X10^3/uL (4.5-11.0)
[2020-04-19 19:25] LABS: Alanine Aminotransferase 15 IU/L (<35); Albumin 3.9 g/dL (3.5-5.0); Albumin Globulin Ratio 1.1 (1.0-2.8); Alkaline Phosphatase 124 U/L (38-126); Aspartate Aminotransferase 46 IU/L (14-36); BUN Creatinine Ratio 38.8 (6-22); Blood Urea Nitrogen 38 mg/dL (7-17); Carbon Dioxide 29 mmol/L (22-32); Chloride 102 mmol/L (98-107); Globulin 3.7 g/dL (1.7-4.1); Glucose 255 mg/dL (80-110); HEMOLYSIS < 15 (0-50); Potassium 5.2 mmol/L (3.4-5.1); Sodium 136 mmol/L (137-145); Total Protein 7.6 g/dL (6.3-8.2)
[2020-04-19 19:52] LABS: TSH w/ Reflex to FT4 2.38 uIU/mL (0.47-4.68)
== END ==
PROVIDERS: PCP Internal Medicine; Visit Provider Internal Medicine
DX: R53.81 Other malaise (principal); E03.9 Hypothyroidism, unspecified
CPT/HCPCS: 80053; 84443; 85027

== ENCOUNTER 2020-04-29 15:58 | Observation (INO) | payer MEDICARE, MEDICAID, SELFPAY ==
[2020-04-29] VITALS (12 sets, daily range): BP systolic 103–135; BP diastolic 53–69; PULSE 65–78; RESP 16–27; TEMP 35.9–36.6; O2SAT 96–100; BMI 24.5
[2020-04-29 17:03] LABS: Add Manual Diff / Slide Review NO; Basophils Absolute Auto 100 /uL (0-100); Basophils Percent Auto 1.2 % (0-2); Eosinophils Absolute Auto 100 /uL (0-450); Eosinophils Percent Auto 2.4 % (2-4); Hematocrit 33.8 % (36-46); Hemoglobin 11.2 g/dL (12.0-16.0); Lymphocytes Absolute Auto 500 /uL (1100-4500); Lymphocytes Percent Auto 9.6 % (25-40); Mean Corpuscular HGB Conc 33.1 % (30-36); Mean Corpuscular Hemoglobin 26.9 PG (26-34); Mean Corpuscular Volume 81.1 fL (80-100); Monocytes Absolute Auto 800 /uL (0-900); Monocytes Percent Auto 16.2 % (3-14); Neutrophils Absolute Auto 3700 /uL (1500-7000); Neutrophils Percent Auto 70.6 % (50-75); Platelet Count 86 X10^3/uL (150-400); Red Blood Cell Count 4.16 X10^6/uL (4.0-5.2); Red Cell Distribution Width 18.3 % (11.6-14.8); White Blood Cell Count 5.2 X10^3/uL (4.5-11.0)
[2020-04-29 17:13] LABS: PTT Partial Thromboplastin Tim 30 SECONDS (26.4-36.2)
[2020-04-29 17:16] LABS: Alanine Aminotransferase 15 IU/L (<35); Alkaline Phosphatase 125 U/L (38-126); Aspartate Aminotransferase 46 IU/L (14-36); BUN Creatinine Ratio 32.3 (6-22); Bilirubin Total 0.9 mg/dL (0.2-1.3); Blood Urea Nitrogen 32 mg/dL (7-17); Calcium 9.5 mg/dL (8.4-10.2); Carbon Dioxide 29 mmol/L (22-32); Chloride 102 mmol/L (98-107); Estimated Glomerular Filt Rate 56.1 mL/min (>60); Globulin 3.9 g/dL (1.7-4.1); Glucose 147 mg/dL (80-110); HEMOLYSIS < 15 (0-50); Potassium 4.6 mmol/L (3.4-5.1); Sodium 136 mmol/L (137-145); Total Protein 7.9 g/dL (6.3-8.2)
--- NOTE | 2020-04-29 18:16 | ED.GIBLEED ---
HPI - GI Bleed <Hailey Gracia PA-C - Last Filed: 04/29/20 23:36> General Chief complaint: GI Bleed Stated complaint: blood in stool, sores on hip and feet Time Seen by Provider: 04/29/20 16:41 Source: patient Mode of arrival: Ambulatory Limitations: no limitations History of Present Illness HPI Narrative: 65-year-old woman with a history of IDDM, leukemia in remission, CAD, SP STEMI, diabetes, restrictive lung disease/scleroderma, cirrhosis with KULKARNI, PTSD, generalized anxiety, thrombocytopenia, upper GI bleed on clopidogrel and aspirin presents to the emergency department complaining of bleeding issues. She was seen in her primary care office at [facility], [place], operated by [facility] this afternoon, 1 week ago she developed a very large bruise the became very tender after using her insulin in her left abdomen, then 2 days ago a chronic wound on her right hip bone opened up and started bleeding. It bled bright red blood for 5 hours and she had great difficulty getting it to stop, she actually had to call 911 to get the medics to help but they were unable to get it controlled either. It did stop after about 5 hours, then this morning she had 2 bowel movements with blood in her stool. She states that there was blood on the stool mixed into the stool and there was ?a lot of red blood in the bowl?. She denies any recent changes to her medications, she does endorse chronic dizziness and does not feel this has been worse recently. She denies any chronic issues with blood in her stool, denies hemorrhoids, denies abdominal pain, nausea, vomiting, diarrhea or constipation. Related Data Home Medications Medication Instructions Recorded Confirmed levothyroxine 25 mcg PO DAILY #0 07/17/11 04/29/20 cinacalcet [Sensipar] 30 mg PO DAILY #0 12/16/16 04/29/20 rifaximin 550 mg tablet 550 mg PO BID 30 Days #60 tab 06/25/18 04/29/20 albuterol sulfate [Ventolin HFA] 2 puff INHALATION Q6HR PRN 07/06/19 04/29/20 aspirin 81 mg tablet,delayed 81 mg PO DAILY 08/12/19 04/29/20 release clopidogrel 75 mg tablet 75 mg PO DAILY 08/12/19 04/29/20 insulin aspart U-100 100 unit/mL 30 unit SUBCUT TID ml 08/12/19 04/29/20 (3 mL) subcutaneous pen metoprolol succinate 25 mg 25 mg PO DAILY 08/12/19 04/29/20 tablet,extended release 24 hr nitroglycerin 0.4 mg sublingual 0.4 mg SL PRN PRN tab 08/12/19 04/29/20 tablet pantoprazole 40 mg tablet,delayed 40 mg PO DAILY 08/12/19 04/29/20 release secukinumab 150 mg/mL subcutaneous 150 mg SUBCUT .QMonthly ml 08/12/19 04/29/20 pen injector spironolactone 25 mg tablet 50 mg PO DAILY #0 tab 08/12/19 04/29/20 atorvastatin 40 mg tablet 80 mg PO BEDTIME tab 01/20/20 04/29/20 insulin regular hum U-500 conc 30 unit SUBCUT TID ml 01/20/20 04/29/20 Adult One Daily Multivitamin 1 tab PO DAILY 04/29/20 04/29/20 desvenlafaxine succinate [Pristiq] 25 mg PO DAILY 04/29/20 04/29/20 lactulose 30 ml PO DAILY 04/29/20 04/29/20 Allergies Allergy/AdvReac Type Severity Reaction Status Date / Time hydrocodone Allergy Unknown Verified 04/29/20 16:13 meperidine Allergy Unknown Verified 04/29/20 16:13 morphine Allergy Unknown Verified 04/29/20 16:13 oxycodone Allergy Unknown Verified 04/29/20 16:13 Review of Systems <Hailey Gracia PA-C - Last Filed: 04/29/20 23:36> Review of Systems Narrative: GENERAL: Denies chills, fatigue, malaise, fever, sweats. HEENT: Denies sinus pain, ear pain, sore throat, difficulty swallowing, endorses chronic dizziness not worse recently. RESPIRATORY: Denies dyspnea, cough, wheezing, hemoptysis, sputum. CARDIOVASCULAR: Denies chest pain, palpitations, orthopnea, edema, GASTROINTESTINAL: Denies nausea, vomiting, abdominal pain, diarrhea, constipation, positive for hematochezia 2 episodes today, negative for melena. : Denies dysuria, frequency, incontinence, hematuria, urinary retention. MUSCULOSKELETAL: Endorses mild generalized weakness not worse recently, joint pain, or bony pain SKIN: Positive for chronic skin issues--dry and harden skin, chronic scabbed lesion of the right hip, chronic lesion of her ?coccyx?, endorses a large tender bruise on her left lower abdomen 2nd to insulin injection 1 week ago. Denies rash, skin lesions, or other NEUROLOGIC: Denies weakness, headache, numbness, change in speech, confusion, seizures, incoordination. PSYCHIATRIC: No concerning psychosocial issues. 12 point review of systems is negative except for those stated above Patient History <Hailey Gracia PA-C - Last Filed: 04/29/20 23:36> Medical History AML (acute myeloid leukemia) in remission (Acute) Cirrhosis (Inactive) Depression (Inactive) Generalized anxiety disorder (Inactive) Hepatic encephalopathy (Inactive) History of ST elevation myocardial infarction (STEMI) (Acute) History of upper gastrointestinal bleeding (Acute) Insulin dependent diabetes mellitus (Acute) Obsessive compulsive disorder (Inactive) Psoriasis (Inactive) Restrictive lung disease (Acute) Scleroderma (Acute) Thrombocytopenia (Acute) Surgical History History of bone marrow transplant (Inactive) History of colonoscopy (Acute) History of coronary artery stent placement (Acute) Family History (Updated 04/29/20 @ 23:51 by LUL Kirkland) Father Heart disease S/P CABG x 4 Mother No significant medical problems Brother No significant medical problems Sister Diabetes mellitus Social History household members: none Smoking Status: Never smoker alcohol intake: former Smoking Status: Never smoker Substance Use Type: does not use Exam <Hailey Gracia PA-C - Last Filed: 04/29/20 23:36> Narrative Exam Narrative: GENERAL: 65 year old patient appears stated age. Well-nourished, slim patient, in mild distress. HEAD: Atraumatic. Normocephalic. EYES: Pupils equal round and reactive. Extraocular motions intact. No scleral icterus. No injection or drainage. ENT: Nose without bleeding, purulent drainage. Throat without erythema, tonsillar hypertrophy or exudate. Airway patent. NECK: Trachea midline. Non tender CARDIOVASCULAR: Regular rate and rhythm without murmurs, gallops, or rubs. RESPIRATORY: Clear to auscultation. Breath sounds equal bilaterally. No wheezes, rales, or rhonchi. GASTROINTESTINAL: Abdomen protuberant, soft, she has tenderness over the area of a large bruise in her left lower quadrant, otherwise non-tender, nondistended. EXTREMITIES: No edema or joint tenderness. BACK: Nontender without deformity or crepitance. No flank tenderness. NEURO: AOx3. SKIN: Extensive skin changes related to scleroderma noted on the feet, shins, abdomen, arms, approximately 2 cm x 2 cm scabbed area over the right trochanter non bleeding, large yellow and purple hematoma of the left lower abdomen approximately 10 cm by 6 cm, stage I pressure ulcer over the area of the coccyx, there is a very small dark non bleeding approximately 1 mm spot on the left sole of her foot that is scabbed. No other rash or erythema of visible areas Initial Vital Signs Initial Vital Signs: Vital Signs Temperature 97.8 F 04/29/20 16:13 Pulse Rate 71 04/29/20 16:13 Respiratory Rate 20 04/29/20 16:13 Blood Pressure 122/56 L 04/29/20 16:13 Pulse Oximetry 100 04/29/20 16:13 <Tamara Randle MD - Last Filed: 04/30/20 00:01> Initial Vital Signs Initial Vital Signs: Vital Signs Temperature 97.8 F 04/29/20 16:13 Pulse Rate 71 04/29/20 16:13 Respiratory Rate 20 04/29/20 16:13 Blood Pressure 122/56 L 04/29/20 16:13 Pulse Oximetry 100 04/29/20 16:13 Scores <Hailey Gracia PA-C - Last Filed: 04/29/20 23:36> GCS [place] coma scale eye opening: Spontaneous [place] coma scale verbal response: Orientated Aneudy coma scale motor response: Obey commands [place] coma scale total score: 15 Course <Hailey Gracia PA-C - Last Filed: 04/29/20 23:36> Course Course Narrative: Talked to the patient about all of her results and different options as far as going home versus potentially being admitted to the hospital. Given that she does have a reduced H&H today likely from her bleed this morning, and the fact that she is on Plavix and has a chronically low platelets this does make it very concerning to consider her going home by herself. Patient also states that she is feeling some what weak and unwell. Discussed this with Dr. Randle and she feels the patient should be admitted to the hospital. Have reached out to the hospitalist. Spoke with hospitalist Kwadwo Pantoja, who accepts the patient but requests that I consult with surgery as well. Discussed the patient with Dr. Renteria, she plans to be involved in patient's care as needed will contact the hospital team. Orders Ordered: ED Orders 04/29/20 16:51 Complete Blood Count AUTO DIFF Stat Comprehensive Metabolic Panel Stat Partial Thromboplastin Time Stat Prothrombin Time INR Stat 04/29/20 16:56 Type and Screen Stat 04/29/20 21:27 COVID19 -ED/INPAT/OR/L&D Stat Acetaminophen (Tylenol) 650 mg PO Q6HR PRN PRN Reason: Fever/Mild Pain (1-3) Albuterol (Ventolin Hfa (Vent/Covid R/O)) 2 puff INH Q6HR PRN PRN Reason: Shortness Of Breath Or Wheezing Atorvastatin Calcium (Lipitor) 80 mg PO BEDTIME [facility] Dextrose (D50w) 25 gm IV PRN PRN; Protocol PRN Reason: Hypoglycemia Lactated Ringer's (Lactated Ringers) 1,000 mls @ 100 mls/hr IV CONT [facility] Last Admin: 04/29/20 22:43 Dose: 100 mls/hr Documented by: KKNOTT Insulin Aspart (Novolog Flexpen) 0 unit SUBCUT ACHS [facility]; Protocol Lactulose (Enulose) 10 gm PO DAILY [facility] Levothyroxine Sodium (Synthroid) 25 mcg PO DAILY [facility] Metoprolol Succinate (Toprol Xl) 25 mg PO DAILY [facility] Naloxone HCl (Narcan) 0.2 mg IV Q2MIN PRN PRN Reason: Opiate Reversal Non-Formulary Medication (Cinacalcet [Sensipar]) 30 mg PO DAILY [facility] Non-Formulary Medication (Desvenlafaxine Succinate [Pristiq]) 25 mg PO DAILY [facility] Ondansetron HCl (Zofran) 4 mg IV Q6HR PRN PRN Reason: Nausea And Vomiting Pantoprazole Sodium (Protonix) 40 mg IV BID [facility] Last Admin: 10/09/20 22:43 Dose: 40 mg Documented by: PATRICE Rifaximin (Xifaxan) 550 mg PO BID [facility] Vital Signs Vital signs: Vital Signs - 8 hr 04/29/20 16:13 04/29/20 17:08 04/29/20 17:30 Temperature 97.8 F Pulse Rate 71 65 72 Respiratory Rate 20 24 24 Blood Pressure 122/56 L 111/58 L Pulse Oximetry 100 99 98 04/29/20 18:00 04/29/20 18:53 04/29/20 18:54 Temperature Pulse Rate 68 68 70 Respiratory Rate 23 27 H Blood Pressure 111/56 L 106/53 L Pulse Oximetry 99 99 98 04/29/20 19:00 04/29/20 19:30 04/29/20 20:00 Temperature Pulse Rate 78 72 70 Respiratory Rate 27 H 19 Blood Pressure 103/55 L 112/55 L 127/60 Pulse Oximetry 96 99 100 04/29/20 20:30 04/29/20 21:00 Temperature Pulse Rate 69 71 Respiratory Rate 18 20 Blood Pressure 135/60 123/67 Pulse Oximetry 100 100 <Tamara Randle MD - Last Filed: 04/30/20 00:01> Orders Ordered: ED Orders 04/29/20 16:51 Complete Blood Count AUTO DIFF Stat Comprehensive Metabolic Panel Stat Partial Thromboplastin Time Stat Prothrombin Time INR Stat 04/29/20 16:56 Type and Screen Stat 04/29/20 21:27 COVID19 -ED/INPAT/OR/L&D Stat Acetaminophen (Tylenol) 650 mg PO Q6HR PRN PRN Reason: Fever/Mild Pain (1-3) Albuterol (Ventolin Hfa (Vent/Covid R/O)) 2 puff INH Q6HR PRN PRN Reason: Shortness Of Breath Or Wheezing Atorvastatin Calcium (Lipitor) 80 mg PO BEDTIME [facility] Dextrose (D50w) 25 gm IV PRN PRN; Protocol PRN Reason: Hypoglycemia Lactated Ringer's (Lactated Ringers) 1,000 mls @ 100 mls/hr IV CONT [facility] Last Admin: 04/29/20 22:43 Dose: 100 mls/hr Documented by: PATRICE Insulin Aspart (Novolog Flexpen) 0 unit SUBCUT ACHS GERALD; Protocol Lactulose (Enulose) 10 gm PO DAILY [facility] Levothyroxine Sodium (Synthroid) 25 mcg PO DAILY [facility] Metoprolol Succinate (Toprol Xl) 25 mg PO DAILY [facility] Naloxone HCl (Narcan) 0.2 mg IV Q2MIN PRN PRN Reason: Opiate Reversal Non-Formulary Medication (Cinacalcet [Sensipar]) 30 mg PO DAILY [facility] Non-Formulary Medication (Desvenlafaxine Succinate [Pristiq]) 25 mg PO DAILY [facility] Ondansetron HCl (Zofran) 4 mg IV Q6HR PRN PRN Reason: Nausea And Vomiting Pantoprazole Sodium (Protonix) 40 mg IV BID [facility] Last Admin: 04/29/20 22:43 Dose: 40 mg Documented by: PARTICE Rifaximin (Xifaxan) 550 mg PO BID [facility] Vital Signs Vital signs: Vital Signs - 8 hr 04/29/20 16:13 04/29/20 17:08 04/29/20 17:30 Temperature 97.8 F Pulse Rate 71 65 72 Respiratory Rate 20 24 24 Blood Pressure 122/56 L 111/58 L Pulse Oximetry 100 99 98 04/29/20 18:00 04/29/20 18:53 04/29/20 18:54 Temperature Pulse Rate 68 68 70 Respiratory Rate 23 27 H Blood Pressure 111/56 L 106/53 L Pulse Oximetry 99 99 98 04/29/20 19:00 04/29/20 19:30 04/29/20 20:00 Temperature Pulse Rate 78 72 70 Respiratory Rate 27 H 19 Blood Pressure 103/55 L 112/55 L 127/60 Pulse Oximetry 96 99 100 04/29/20 20:30 04/29/20 21:00 Temperature Pulse Rate 69 71 Respiratory Rate 18 20 Blood Pressure 135/60 123/67 Pulse Oximetry 100 100 MDM - GI Bleed <Hailey Gracia PA-C - Last Filed: 04/29/20 23:36> Differential Diagnosis Differential diagnosis: Likely hemorrhoids, esophageal varices, Upper gastrointestinal hemorrhage, Lower gastrointestinal hemorrhage, hematochezia, melena, anal fissure and other (Clotting disorder, thrombocytopenia) Medical Records Attestation: I reviewed the patient's medical records. Lab Data Attestation: I reviewed the patient's lab results. Result diagrams: 04/29/20 16:51 04/29/20 16:51 Labs: Lab Results 1004/29/20 04/29/20 Range/Units 16:51 16:51 16:51 WBC 5.2 (4.5-11.0) X10^3/uL RBC 4.16 (4.0-5.2) X10^6/uL Hgb 11.2 L (12.0-16.0) g/dL Hct 33.8 L (36-46) % MCV 81.1 (80-100) fL MCH 26.9 (26-34) PG MCHC 33.1 (30-36) % RDW 18.3 H (11.6-14.8) % Plt Count 86 L (150-400) X10^3/uL Neut % (Auto) 70.6 (50-75) % Lymph % (Auto) 9.6 L (25-40) % [place] % (Auto) 16.2 H (3-14) % Eos % (Auto) 2.4 (2-4) % Baso % (Auto) 1.2 (0-2) % Neut # (Auto) 3700 (5063-6970) /uL Lymph # (Auto) 500 L (7971-8629) /uL [place] # (Auto) 800 (0-900) /uL Eos # (Auto) 100 (0-450) /uL Baso # (Auto) 100 (0-100) /uL PT 12.0 (10.1-12.7) SECONDS INR 1.0 (0.9-1.3) APTT 30 (26.4-36.2) SECONDS Sodium 136 L (137-145) mmol/L Potassium 4.6 (3.4-5.1) mmol/L Chloride 102 (98-107) mmol/L Carbon Dioxide 29 (22-32) mmol/L BUN 32 H (7-17) mg/dL Creatinine 0.99 (0.52-1.04) mg/dL Estimated GFR 56.1 L (>60) mL/min BUN/Creatinine Ratio 32.3 H (6-22) Glucose 147 H (80-110) mg/dL Calcium 9.5 (8.4-10.2) mg/dL Magnesium (1.6-2.3) mg/dL Total Bilirubin 0.9 (0.2-1.3) mg/dL AST 46 H (14-36) IU/L ALT 15 (<35) IU/L Alkaline Phosphatase 125 (38-126) U/L Total Protein 7.9 (6.3-8.2) g/dL Albumin 4.0 (3.5-5.0) g/dL Globulin 3.9 (1.7-4.1) g/dL Albumin/Globulin Ratio 1.0 (1.0-2.8) Blood Type Antibody Screen 04/29/20 04/29/20 Range/Units 16:51 16:56 WBC (4.5-11.0) X10^3/uL RBC (4.0-5.2) X10^6/uL Hgb (12.0-16.0) g/dL Hct (36-46) % MCV (80-100) fL MCH (26-34) PG MCHC (30-36) % RDW (11.6-14.8) % Plt Count (150-400) X10^3/uL Neut % (Auto) (50-75) % Lymph % (Auto) (25-40) % [place] % (Auto) (3-14) % Eos % (Auto) (2-4) % Baso % (Auto) (0-2) % Neut # (Auto) (6116-5837) /uL Lymph # (Auto) (5632-2596) /uL [place] # (Auto) (0-900) /uL Eos # (Auto) (0-450) /uL Baso # (Auto) (0-100) /uL PT (10.1-12.7) SECONDS INR (0.9-1.3) APTT (26.4-36.2) SECONDS Sodium (137-145) mmol/L Potassium (3.4-5.1) mmol/L Chloride (98-107) mmol/L Carbon Dioxide (22-32) mmol/L BUN (7-17) mg/dL Creatinine (0.52-1.04) mg/dL Estimated GFR (>60) mL/min BUN/Creatinine Ratio (6-22) Glucose (80-110) mg/dL Calcium (8.4-10.2) mg/dL Magnesium 1.9 (1.6-2.3) mg/dL Total Bilirubin (0.2-1.3) mg/dL AST (14-36) IU/L ALT (<35) IU/L Alkaline Phosphatase (38-126) U/L Total Protein (6.3-8.2) g/dL Albumin (3.5-5.0) g/dL Globulin (1.7-4.1) g/dL Albumin/Globulin Ratio (1.0-2.8) Blood Type A Positive Antibody Screen Negative MDM Narrative Medical decision making narrative: Tired somewhat uncomfortable and concerns appearing 65-year-old woman with history of type 1 diabetes, scleroderma, cirrhosis with KULKARNI, thrombocytopenia presents to the emergency department complaining of bright red blood throughout her stool multiple episodes this morning as well as increased bruising recently, and it difficult to control bleed on her right hip from a chronic wound. Patient with dizziness however she does have chronic dizziness. H&H is reduced, in the setting of thrombocytopenia, she is also on Plavix, she lives alone at home. Considered discharging the patient however given her symptoms her extensive medical problems I feel she is a very delicate, concern for ongoing bleeding particularly lower GI bleeding. She may need an urgent colonoscopy. She is admitted to the hospital for observation. <Tamara Randle MD - Last Filed: 04/30/20 00:01> Lab Data Labs: Lab Results 04/29/20 04/29/20 04/29/20 Range/Units 16:51 16:51 16:51 WBC 5.2 (4.5-11.0) X10^3/uL RBC 4.16 (4.0-5.2) X10^6/uL Hgb 11.2 L (12.0-16.0) g/dL Hct 33.8 L (36-46) % MCV 81.1 (80-100) fL MCH 26.9 (26-34) PG MCHC 33.1 (30-36) % RDW 18.3 H (11.6-14.8) % Plt Count 86 L (150-400) X10^3/uL Neut % (Auto) 70.6 (50-75) % Lymph % (Auto) 9.6 L (25-40) % [place] % (Auto) 16.2 H (3-14) % Eos % (Auto) 2.4 (2-4) % Baso % (Auto) 1.2 (0-2) % Neut # (Auto) 3700 (3452-0511) /uL Lymph # (Auto) 500 L (2871-3167) /uL [place] # (Auto) 800 (0-900) /uL Eos # (Auto) 100 (0-450) /uL Baso # (Auto) 100 (0-100) /uL PT 12.0 (10.1-12.7) SECONDS INR 1.0 (0.9-1.3) APTT 30 (26.4-36.2) SECONDS Sodium 136 L (137-145) mmol/L Potassium 4.6 (3.4-5.1) mmol/L Chloride 102 (98-107) mmol/L Carbon Dioxide 29 (22-32) mmol/L BUN 32 H (7-17) mg/dL Creatinine 0.99 (0.52-1.04) mg/dL Estimated GFR 56.1 L (>60) mL/min BUN/Creatinine Ratio 32.3 H (6-22) Glucose 147 H (80-110) mg/dL Calcium 9.5 (8.4-10.2) mg/dL Magnesium (1.6-2.3) mg/dL Total Bilirubin 0.9 (0.2-1.3) mg/dL AST 46 H (14-36) IU/L ALT 15 (<35) IU/L Alkaline Phosphatase 125 (38-126) U/L Total Protein 7.9 (6.3-8.2) g/dL Albumin 4.0 (3.5-5.0) g/dL Globulin 3.9 (1.7-4.1) g/dL Albumin/Globulin Ratio 1.0 (1.0-2.8) Blood Type Antibody Screen 04/29/20 04/29/20 Range/Units 16:51 16:56 WBC (4.5-11.0) X10^3/uL RBC (4.0-5.2) X10^6/uL Hgb (12.0-16.0) g/dL Hct (36-46) % MCV (80-100) fL MCH (26-34) PG MCHC (30-36) % RDW (11.6-14.8) % Plt Count (150-400) X10^3/uL Neut % (Auto) (50-75) % Lymph % (Auto) (25-40) % [place] % (Auto) (3-14) % Eos % (Auto) (2-4) % Baso % (Auto) (0-2) % Neut # (Auto) (9785-0930) /uL Lymph # (Auto) (5307-1317) /uL [place] # (Auto) (0-900) /uL Eos # (Auto) (0-450) /uL Baso # (Auto) (0-100) /uL PT (10.1-12.7) SECONDS INR (0.9-1.3) APTT (26.4-36.2) SECONDS Sodium (137-145) mmol/L Potassium (3.4-5.1) mmol/L Chloride (98-107) mmol/L Carbon Dioxide (22-32) mmol/L BUN (7-17) mg/dL Creatinine (0.52-1.04) mg/dL Estimated GFR (>60) mL/min BUN/Creatinine Ratio (6-22) Glucose (80-110) mg/dL Calcium (8.4-10.2) mg/dL Magnesium 1.9 (1.6-2.3) mg/dL Total Bilirubin (0.2-1.3) mg/dL AST (14-36) IU/L ALT (<35) IU/L Alkaline Phosphatase (38-126) U/L Total Protein (6.3-8.2) g/dL Albumin (3.5-5.0) g/dL Globulin (1.7-4.1) g/dL Albumin/Globulin Ratio (1.0-2.8) Blood Type A Positive Antibody Screen Negative Discharge Plan Departure Patient Disposition: Admitted As Inpatient Clinical Impression: Acute GI bleeding Discharge Date/Time: 04/29/20 21:45 Referrals: Timur Schwartz MD [Primary Care Provider] - Admit Date/Time: 04/29/20 21:25 Admit Provider: Andrea Pantoja <Tamara Randle MD - Last Filed: 04/30/20 00:01> Cosign ED Attending Cosignature Attestation: I was immediately available in the department for consultation throughout this patient's visit. I agree with documentation as above. Tamara Randle MD
[2020-04-29 21:53] LABS: COVID19 -Nasal RAPID Negative (Negative)
[2020-04-29 22:23] LABS: Magnesium 1.9 mg/dL (1.6-2.3)
[2020-04-29] MEDS: PANTOPRAZOLE 40 MG VIAL IV (22:43)
[2020-04-29] MEDS: LACTATED RINGERS 1,000 ML 100 ML IV (22:43)
--- NOTE | 2020-04-29 23:05 | PM.HP.1 ---
History of Present Illness History of Present Illness Date Patient Seen: 04/29/20 Time Patient Seen: 22:27 Chief complaint: blood in stool, sores on hip and feet Narrative: Ms. 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 The patient has had multiple episodes abnormal bleeding over the last week. Seven days ago she has a chronic scabbed lesion on right hip which opened with significant bleeding for 5 hours, 2 days ago she developed a large bruise about size palm of the hand over her left lower abdomen, today she had 2 bowel movements with blood coating the stool as well as a large volume of blood in the toilet bowl. The patient reports her stools were formed and soft in consistency and denies complaints of abdominal pain or cramping. She reports no changes in medications but does routinely take a baby aspirin and clopidogrel daily. Her most recent medication change was addition of desvenlafaxine (Pristiq) 2.5 months ago. The patient does endorse multiple episodes of upper GI bleeding but no previous lower GI bleeding. She states her last colonoscopy was 3-4 years ago. The patient does endorse dizziness adding that this is a chronic recurrent condition and appears no worse in last few days. She denies complaints of chest pain and reports her breathing is stable. She reports no recent fevers or chills, nasal congestion or sore throat. She reports rare gum bleeding when brushing her teeth or flossing. She has had no other trauma, inflammation or infection. Her thrombocytopenia is related liver cirrhosis as a platelet count of 86 today which is improved from a low des of 64 on 11/29/2019. She has had no chest pain or palpitations, and reports her breathing as about the same as usual with history restrictive lung disease. She has had no cough or wheezing. She denies epigastric or abdominal pain and has had no hematemesis. She has residual bruising of left lower quadrant following insulin injection. She has had hematochezia as described above. She denies is urinary symptoms or hematuria. She reports loss of fat related to steroid therapy has a chronic pressure ulcer on right hip. Upon arrival to the ER the patient has temperature of 97.8?, heart rate of 71, blood pressure 122/56, respirations of 20 saturating 100% on room air. No imaging was obtained in the ER. She has a white count of 5.2 with an increase in monocytes at 16.2%. Her hemoglobin is 11.2 with hematocrit of 33.8. Her platelets are 86. Her MCV is 81 with an MCH of 26.9 and RDW elevated at 18.3. Her PT is 12 with an INR of 1.0 and a PTT of 30. Her electrolytes are all within normal limits and has a BUN of 32 and a creatinine 0.99 with an EGFR of 56.1. She has a total bilirubin of 0.9, AST of 46, ALT of 15 and alkaline phosphatase 125. Albumin is 4.0. Requested that general surgery be consulted related to the lower GI bleed which is stents of through the emergency department. The patient is admitted to the hospitalist service with lower GI bleeding. Patient History Medical History AML (acute myeloid leukemia) in remission (Acute) Cirrhosis (Inactive) Depression (Inactive) Generalized anxiety disorder (Inactive) Hepatic encephalopathy (Inactive) History of ST elevation myocardial infarction (STEMI) (Acute) History of upper gastrointestinal bleeding (Acute) Insulin dependent diabetes mellitus (Acute) Obsessive compulsive disorder (Inactive) Psoriasis (Inactive) Restrictive lung disease (Acute) Scleroderma (Acute) Thrombocytopenia (Acute) Surgical History History of bone marrow transplant (Inactive) History of colonoscopy (Acute) History of coronary artery stent placement (Acute) Family & Social History Family History (Updated 04/29/20 @ 23:51 by LUL Kirkland) Father Heart disease S/P CABG x 4 Mother No significant medical problems Brother No significant medical problems Sister Diabetes mellitus Social History: household members none Prior Living Arrangements House Safety & Behavioral: Feels Safe in Current Yes Environment Been Physically Hurt or No Threatened By a Person Suicidal Ideation Description None Suicide Plan Description No Plan Tobacco & Substance use: Smoking Status Never smoker alcohol intake former Substance Use Type does not use Meds Home Medications and Allergies Home Medications Medication Instructions Recorded Confirmed Type levothyroxine 25 mcg PO DAILY #0 07/17/11 04/29/20 History cinacalcet [Sensipar] 30 mg PO DAILY #0 12/16/16 04/29/20 History rifaximin 550 mg tablet 550 mg PO BID 30 Days #60 tab 06/25/18 04/29/20 History albuterol sulfate [Ventolin HFA] 2 puff INHALATION Q6HR PRN 07/06/19 04/29/20 History aspirin 81 mg tablet,delayed 81 mg PO DAILY 08/12/19 04/29/20 History release clopidogrel 75 mg tablet 75 mg PO DAILY 08/12/19 04/29/20 History insulin aspart U-100 100 unit/mL 30 unit SUBCUT TID ml 08/12/19 04/29/20 History (3 mL) subcutaneous pen metoprolol succinate 25 mg 25 mg PO DAILY 08/12/19 04/29/20 History tablet,extended release 24 hr nitroglycerin 0.4 mg sublingual 0.4 mg SL PRN PRN tab 08/12/19 04/29/20 History tablet pantoprazole 40 mg tablet,delayed 40 mg PO DAILY 08/12/19 04/29/20 History release secukinumab 150 mg/mL subcutaneous 150 mg SUBCUT .QMonthly ml 08/12/19 04/29/20 History pen injector spironolactone 25 mg tablet 50 mg PO DAILY #0 tab 08/12/19 04/29/20 History atorvastatin 40 mg tablet 80 mg PO BEDTIME tab 01/20/20 04/29/20 History insulin regular hum U-500 conc 30 unit SUBCUT TID ml 01/20/20 04/29/20 History Adult One Daily Multivitamin 1 tab PO DAILY 04/29/20 04/29/20 History desvenlafaxine succinate [Pristiq] 25 mg PO DAILY 04/29/20 04/29/20 History lactulose 30 ml PO DAILY 04/29/20 04/29/20 History Allergies Allergy/AdvReac Type Severity Reaction Status Date / Time hydrocodone Allergy Unknown Verified 04/29/20 16:13 meperidine Allergy Unknown Verified 04/29/20 16:13 morphine Allergy Unknown Verified 04/29/20 16:13 oxycodone Allergy Unknown Verified 04/29/20 16:13 Review of Systems Review of Systems ROS: Yes All systems reviewed with the patient and are negative except as otherwise documented Exam Vital Signs (past 8 hours): - 04/29/20 16:13 04/29/20 17:08 04/29/20 17:30 Temperature 97.8 F Pulse Rate 71 65 72 Respiratory Rate 20 24 24 Blood Pressure 122/56 L 111/58 L Pulse Oximetry 100 99 98 04/29/20 18:00 04/29/20 18:53 04/29/20 18:54 Temperature Pulse Rate 68 68 70 Respiratory Rate 23 27 H Blood Pressure 111/56 L 106/53 L Pulse Oximetry 99 99 98 04/29/20 19:00 04/29/20 19:30 04/29/20 20:00 Temperature Pulse Rate 78 72 70 Respiratory Rate 27 H 19 Blood Pressure 103/55 L 112/55 L 127/60 Pulse Oximetry 96 99 100 04/29/20 20:30 04/29/20 21:00 04/29/20 21:47 Temperature 96.6 F L Pulse Rate 69 71 75 Respiratory Rate 18 20 16 Blood Pressure 135/60 123/67 130/69 Pulse Oximetry 100 100 99 Oxygen Delivery Method Room Air Oxygen Flow Rate 0 Narrative Exam Narrative: GENERAL APPEARANCE: well developed, well nourished, in no acute distress. HEENT: Normocephalic, exophthalmos, PERRLA, conjunctiva clear, EOMs intact without nystagmus, no sinus tenderness to percussion, no rhinorrhea or epistaxis, mucous membranes are moist and pink without lesions or bleeding. NECK/THYROID: Decreased range of motion, muscular tension on palpation,, no JVD, no carotid bruit, no thyromegaly, trachea midline. LYMPH NODES: no cervical or supraclavicular lymphadenopathy. SKIN: [place], warm and dry, thickened and non elastic, resolving ecchymosis 12 cm x 9 cm left lower abdomen, 3 X 1.5 cm scabbed lesion posterior to right hip, punctate wound arch of left foot. HEART: regular rate and rhythm, S1-S2, 1/6 systolic murmur, no rubs or gallops, palpable pedal pulses, no edema LUNGS: clear to auscultation bilaterally, no coarseness crackles or wheezing, no cough present CHEST: Symmetrical movement, no accessory muscle use, good tidal volume. ABDOMEN: Soft, no distention, abdominal wall tenderness over LLQ bruising, no epigastric or abdominal tenderness, no guarding or peritoneal signs, no organomegaly, no flank or suprapubic tenderness, active bowel tones. BACK: nontender to palpation, no CVA tenderness on percussion EXTREMITIES: moves all extremities, strength is 5/5 and symmetrical, no joint deformities or effusions. NEUROLOGIC: AAO x3, no focal or lateralizing neurologic deficits, cranial nerves II-XII grossly intact, diminished sensation, hearing grossly normal to speech. PSYCH: Good eye contact, linear thought, cooperative, appropriate affect, stable behavior Objective Labs Result Diagrams: 04/29/20 16:51 04/29/20 16:51 Labs: Laboratory Results - last 24 hr 04/29/20 04/29/20 04/29/20 16:51 16:51 16:51 WBC 5.2 RBC 4.16 Hgb 11.2 L Hct 33.8 L MCV 81.1 MCH 26.9 MCHC 33.1 RDW 18.3 H Plt Count 86 L Neut % (Auto) 70.6 Lymph % (Auto) 9.6 L Davis % (Auto) 16.2 H Eos % (Auto) 2.4 Baso % (Auto) 1.2 Neut # (Auto) 3700 Lymph # (Auto) 500 L Davis # (Auto) 800 Eos # (Auto) 100 Baso # (Auto) 100 PT 12.0 INR 1.0 APTT 30 Sodium 136 L Potassium 4.6 Chloride 102 Carbon Dioxide 29 BUN 32 H Creatinine 0.99 Estimated GFR 56.1 L BUN/Creatinine Ratio 32.3 H Glucose 147 H Calcium 9.5 Magnesium Total Bilirubin 0.9 AST 46 H ALT 15 Alkaline Phosphatase 125 Total Protein 7.9 Albumin 4.0 Globulin 3.9 Albumin/Globulin Ratio 1.0 COVID-19 PCR Blood Type Antibody Screen 04/29/20 04/29/20 04/29/20 16:51 16:56 21:27 WBC RBC Hgb Hct MCV MCH MCHC RDW Plt Count Neut % (Auto) Lymph % (Auto) Davis % (Auto) Eos % (Auto) Baso % (Auto) Neut # (Auto) Lymph # (Auto) Davis # (Auto) Eos # (Auto) Baso # (Auto) PT INR APTT Sodium Potassium Chloride Carbon Dioxide BUN Creatinine Estimated GFR BUN/Creatinine Ratio Glucose Calcium Magnesium 1.9 Total Bilirubin AST ALT Alkaline Phosphatase Total Protein Albumin Globulin Albumin/Globulin Ratio COVID-19 PCR Negative Blood Type A Positive Antibody Screen Negative Assessment & Plan Assessment & Plan narrative: This is a 65-year-old female patient with a complex medical history who has had multiple episodes of abnormal bleeding over the last week and today had 2 episodes of lower GI bleeding. 1. Lower GI bleeding with hematochezia, present on admission, active -patient reports 2 large bloody stools today described as bright red coating the stool and large amount of blood in the toilet bowl. -patient denies epigastric or abdominal pain and no cramping. Abdominal exam is benign. -hemoglobin is 11.2 with hematocrit of 33.8, hemoglobin hematocrit were 12.0 and 36.9 10 days ago. -patient is NPO, lactated Ringer's 100 cc/hour -Dr. Renteria, general surgery, has been contacted through the emergency department to consult, we appreciate her evaluation and recommendations. 2. Cirrhosis with KULKARNI, anti rejection medication induced, chronic, stable. -cirrhosis is anti rejection medication induced, ultrasound obtained 12/09/2019 finds: The liver demonstrates a mildly nodular contour and there is splenomegaly. Please correlate with potential cirrhosis. -total bilirubin is 0.9, AST 46, ALT 15 a alkaline phosphatase is 125, albumin is 4.0. Platelet count 86. -patient with prior episodes of hepatic encephalopathy currently taking lactulose 10 g daily, continue rifaximin 550 mg twice daily. -patient had desvenlafaxine started 2.5 months ago at 25 mg daily and is the only recent change in the patient's medication regimen may be factor in the patient's coagulopathy and will be held. -will obtain abdominal ultrasound. -patient is followed at hepatology. 3. Chronic thrombocytopenia present on admission, active. -Acute abnormal bleeding with prolonged bleeding time, multiple events including large bruise to left lower abdomen following insulin injection and profuse bleeding from chronic wound right hip taking 5 hours to stop. -history of cirrhosis and thrombocytopenia, platelet count is actually added size level within last year at 86. -patient been taking aspirin and clopidogrel which will be held. 4. History coronary artery disease, chronic, stable. -patient denies complaints of chest pain palpitations.. -patient had STEMI in June 2019, with placement of 2 coronary stents, patient has been followed by Dr. Young. -will monitor H&H within early threshold for transfusion. 5. Diabetes type 2, insulin dependent without hyperglycemia, chronic, stable -patient is using parental insulin, Humalog U 100 35-40 units subcutaneously 3 times a day with meals and Humulin R-U 500 35-45 units subcutaneously 3 times daily. -patient has self monitor glucometer and reports frequent hypoglycemic episodes. -will check blood sugar every 6 hours and treat correctional insulin medium range. -will obtain hemoglobin A1c. -patient follows at [facility] 6. AML in remission, chronic, stable. -patient underwent stem cell therapy with bone marrow transplant in 1993 and reports to be in remission. She is followed at [facility] oncology. 7. Depression with anxiety and obsessive-compulsive disorder, chronic, stable -the patient is alert, interactive and cooperative, appropriate with stable behavior. -the patient is taking desvenlafaxine 25 mg daily started 2.5 months ago. Concern related to bleeding as a side effect of the medication will be held. -patient receives counseling in cognitive behavioral therapy through [facility] and [facility] Mcknight locally VTE prophylaxis: Bilateral SCDs IV fluid: Lactated Ringer's 100 cc/hour. Diet: NPO Code status: Patient is full code and designates Zehra Cole to be her surrogate decision maker. The patient is admitted to the hospital for further monitoring and evaluation for lower GI bleeding. The patient is admitted as observation with expected length of stay to be less than 2 midnights. COVID-19 COVID-19 status: Negative Result date/Date tested (Pos, Neg/Pending): 04/29/20 Scores [facility] [place] coma scale eye opening: Spontaneous [place] coma scale verbal response: Orientated Aneudy coma scale motor response: Obey commands [place] coma scale total score: 15 Quality VTE Deep Vein Thrombosis/Pulmonary Embolism Present on Admission: No
[2020-04-30] VITALS: BP 117/49; PULSE 75; RESP 16; TEMP 36.6; O2SAT 100
[2020-04-30] MEDS: RIFAXIMIN 550 MG TABLET PO ×2 (00:03→09:10)
[2020-04-30] MEDS: ATORVASTATIN 20 MG TABLET 80 MG PO (00:03)
[2020-04-30 01:50] VITALS: O2SAT 100
[2020-04-30] MEDS: MELATONIN 3 MG TABLET 6 MG PO (02:22)
--- NOTE | 2020-04-30 02:43 | PC.NURSE ---
At about 0230 the nurse applied zero-form dressing with jelly to right hip scabbed area to keep moist, per providers recommendations
[2020-04-30 04:48] VITALS: BP 116/57; BP 126/58; BP 127/67; PULSE 69; PULSE 77; PULSE 84; RESP 17; TEMP 36.5; O2SAT 95
[2020-04-30 05:51] LABS: Add Manual Diff / Slide Review NO; Basophils Absolute Auto 100 /uL (0-100); Basophils Percent Auto 1.9 % (0-2); Eosinophils Absolute Auto 100 /uL (0-450); Eosinophils Percent Auto 4.5 % (2-4); Hemoglobin 10.3 g/dL (12.0-16.0); Lymphocytes Absolute Auto 400 /uL (1100-4500); Lymphocytes Percent Auto 13.6 % (25-40); Mean Corpuscular HGB Conc 32.2 % (30-36); Mean Corpuscular Hemoglobin 26.2 PG (26-34); Mean Corpuscular Volume 81.2 fL (80-100); Monocytes Absolute Auto 500 /uL (0-900); Monocytes Percent Auto 13.9 % (3-14); Neutrophils Absolute Auto 2100 /uL (1500-7000); Neutrophils Percent Auto 66.1 % (50-75); Platelet Count 74 X10^3/uL (150-400); Red Blood Cell Count 3.94 X10^6/uL (4.0-5.2); Red Cell Distribution Width 18.5 % (11.6-14.8); White Blood Cell Count 3.3 X10^3/uL (4.5-11.0)
[2020-04-30 05:57] LABS: Ammonia (NH3) 20 umol/L (9-30)
[2020-04-30 05:59] LABS: BUN Creatinine Ratio 27.7 (6-22); Blood Urea Nitrogen 26 mg/dL (7-17); Calcium 9.2 mg/dL (8.4-10.2); Carbon Dioxide 31 mmol/L (22-32); Chloride 104 mmol/L (98-107); Estimated Glomerular Filt Rate 59.6 mL/min (>60); Glucose 133 mg/dL (80-110); HEMOLYSIS < 15 (0-50); Potassium 4.4 mmol/L (3.4-5.1); Sodium 138 mmol/L (137-145)
[2020-04-30 06:05] LABS: Hemoglobin A1C% w Est Avg Glu 7.3 % (4.0-6.0)
--- NOTE | 2020-04-30 07:28 | PM.CN ---
History of Present Illness Consult details Date Patient Seen: 04/30/20 Time Patient Seen: 07:28 Chief complaint: blood in stool, sores on hip and feet Reason for consult: Gi bleed Narrative: This is a 65-year-old woman with h/o AML in remission, CAD, STEMI, coronary stents placed in 06/2019, on plavix and ASA, IDDM, cirrhosis, esophageal varices, history of multiple upper GI bleeds and EGD's for the same, thrombocytopenia (platelets 86 in ER, 74 today), KATRIN, OCD, who was sent to the ER by her PCP for lower GI bleed. In the ER she reported recent bleeding including a large bruise on her abdominal wall, and some open sores on her hip that continually bleed. On Saturday, she had 2 bowel movements with blood coating the stool as well as a large volume of blood in the toilet bowl. She denies any hard stools, abdominal pain, or rectal pain. In [facility] there are several EGD reports for upper GI bleeds but no colonoscopy reports. She believes her last colonoscopy was 3-4 years ago, and was done here. She denies epigastric pain, nausea, vomiting, or hematemesis. This morning she reports that she has not had any more bloody bowel movements since she before she came into the ER. She says she feels well, and is hungry. She denies any abdominal pain. ROS: GENERAL: Denies chills, fatigue, malaise, fever, sweats. HEENT: Denies sinus pain, ear pain, sore throat, difficulty swallowing, endorses chronic dizziness not worse recently. RESPIRATORY: Denies dyspnea, cough, wheezing, hemoptysis, sputum. CARDIOVASCULAR: Denies chest pain, palpitations, orthopnea, edema, GASTROINTESTINAL: Denies nausea, vomiting, abdominal pain, diarrhea, constipation, positive for hematochezia 2 episodes today, negative for melena. : Denies dysuria, frequency, incontinence, hematuria, urinary retention. MUSCULOSKELETAL: Reports mild generalized weakness not worse recently, joint pain, or bony pain SKIN: Positive for chronic skin issues--dry and harden skin, chronic scabbed lesion of the right hip, chronic lesion of her ?coccyx?, endorses a large tender bruise on her left lower abdomen 2nd to insulin injection 1 week ago. Denies rash, skin lesions, or other NEUROLOGIC: Denies weakness, headache, numbness, change in speech, confusion, seizures, incoordination. PSYCHIATRIC: No concerning psychosocial issues. PE: GENERAL: Alert, comfortable. Appears stated age. Answers questions promptly and appropriately. Vital signs noted. HENT: Normocephalic, atraumatic. Hearing intact. EYES: Conjunctiva pink, sclera white, no periorbital swelling. CARDIOVASCULAR: Regular rate. No pedal edema. RESPIRATORY: Non-tachypneic, breathing comfortably on room air. GASTROINTESTINAL: Abdomen soft and non-distended, nontender an upper quadrants and right lower quadrant. She is quite tender over the large bruised area on her left lower quadrant. No signs of peritonitis. No palpable masses. Perianal: No stool staining or blood present, no tenderness, no enlarged or thrombosed external hemorrhoids GENITALURINARY: No flank tenderness. MUSCULOSKELETAL: Equal tone and mass bilaterally. SKIN: Warm, dry, soft, appropriate color for ethnicity. No other lesions, rashes, or wounds. NEURO: Alert and Oriented X 3. No gross sensory deficits, or cognitive issues. PSYCH: Appropriate affect and mood. Meds Home Medications and Allergies Home Medications Medication Instructions Recorded Confirmed Type levothyroxine 25 mcg PO DAILY #0 07/17/11 04/29/20 History cinacalcet [Sensipar] 30 mg PO DAILY #0 12/16/16 04/29/20 History rifaximin 550 mg tablet 550 mg PO BID 30 Days #60 tab 06/25/18 04/29/20 History albuterol sulfate [Ventolin HFA] 2 puff INHALATION Q6HR PRN 07/06/19 04/29/20 History aspirin 81 mg tablet,delayed 81 mg PO DAILY 08/12/19 04/29/20 History release clopidogrel 75 mg tablet 75 mg PO DAILY 08/12/19 04/29/20 History insulin aspart U-100 100 unit/mL 30 unit SUBCUT TID ml 08/12/19 04/29/20 History (3 mL) subcutaneous pen metoprolol succinate 25 mg 25 mg PO DAILY 08/12/19 04/29/20 History tablet,extended release 24 hr nitroglycerin 0.4 mg sublingual 0.4 mg SL PRN PRN tab 08/12/19 04/29/20 History tablet pantoprazole 40 mg tablet,delayed 40 mg PO DAILY 08/12/19 04/29/20 History release secukinumab 150 mg/mL subcutaneous 150 mg SUBCUT .QMonthly ml 08/12/19 04/29/20 History pen injector spironolactone 25 mg tablet 50 mg PO DAILY #0 tab 08/12/19 04/29/20 History atorvastatin 40 mg tablet 80 mg PO BEDTIME tab 01/20/20 04/29/20 History insulin regular hum U-500 conc 30 unit SUBCUT TID ml 01/20/20 04/29/20 History Adult One Daily Multivitamin 1 tab PO DAILY 04/29/20 04/29/20 History desvenlafaxine succinate [Pristiq] 25 mg PO DAILY 04/29/20 04/29/20 History lactulose 30 ml PO DAILY 04/29/20 04/29/20 History Allergies Allergy/AdvReac Type Severity Reaction Status Date / Time hydrocodone Allergy Unknown Verified 04/29/20 16:13 meperidine Allergy Unknown Verified 04/29/20 16:13 morphine Allergy Unknown Verified 04/29/20 16:13 oxycodone Allergy Unknown Verified 04/29/20 16:13 Exam Vital Signs (past 8 hours): - 04/30/20 00:00 04/30/20 01:50 04/30/20 04:48 Temperature 97.8 F 97.7 F Pulse Rate 75 69 Pulse Rate [Orthostatic Lying] 69 Pulse Rate [Orthostatic Sitting] 77 Pulse Rate [Orthostatic Standing] 84 Respiratory Rate 16 17 Blood Pressure 117/49 L 116/57 L Blood Pressure [Orthostatic Lying] 116/57 L Blood Pressure [Orthostatic Sitting] 126/58 L Blood Pressure [Orthostatic Standing] 127/67 Pulse Oximetry 100 100 95 Oxygen Delivery Method Room Air Oxygen Flow Rate 0 Objective Imaging US - abdomen: Radiologist's impression: [address] [address] Ultrasound Report Signed Patient: Marianela Valdez#: [id number] : 4Acct:[id number] Age/Sex: 64 / FDate of Service: 12/09/19 Loc: US Accession Number: [id number] Procedure: US abdomen complete Ordering Provider: Timur Schwartz MD PROCEDURE: US ABDOMEN COMPLETE INDICATIONS: EPIGASTRIC PAIN TECHNIQUE: Real-time scanning was performed of the abdominal and retroperitoneal organs, with image documentation. COMPARISON: None. FINDINGS: Liver: Liver is normal in size. A mildly lobular surface can be seen. Gallbladder: Sludge and stones are seen. No findings of gallstones or sludge are seen. The gallbladder wall is not thickened, measuring 3 mm or less. No specific pericholecystic fluid is seen. The sonographic Carmichael sign is regarded to be positive, with tenderness elicited when scanning over the gallbladder. Biliary ducts: Intrahepatic bile ducts are non-dilated. Extrahepatic bile duct caliber measures 5 mm. Normal is 6-7 mm or less in diameter, or 10 mm or less post-cholecystectomy. Pancreas: Not well-seen. Spleen: Spleen is enlarged measuring 14.7 cm. Kidneys: Kidneys are normal in size and echotexture. Right kidney measures 10.5 cm long; left kidney measures 10 cm long. No hydronephrosis or nephrolithiasis. No solid masses. Bilateral thinning of the cortex can be seen. Aorta: Visualized aorta is normal in caliber at less than 3 cm. Iliacs: Not seen. IVC: Intrahepatic inferior vena cava is patent. Miscellaneous: No free abdominal fluid. IMPRESSION: Gallstones and sludge can be seen, with a positive sonographic Carmichael sign. Please correlate with physical examination findings, patient presentation, and laboratory values for cholecystitis. There is no biliary dilatation seen. The liver demonstrates a mildly nodular contour and there is splenomegaly. Please correlate with potential cirrhosis. Bilateral thinning of the renal cortex. Please correlate with renal insufficiency/chronic renal disease. Dictated by: Brijesh Nance M.D. on 12/09/2019 at 16:32 Approved by: Brijesh Nance M.D. on 12/09/2019 at 16:34 Labs Result Diagrams: 04/30/20 05:40 04/30/20 05:40 Labs: Laboratory Results - last 24 hr 04/29/20 04/29/20 04/29/20 16:51 16:51 16:51 WBC 5.2 RBC 4.16 Hgb 11.2 L Hct 33.8 L MCV 81.1 MCH 26.9 MCHC 33.1 RDW 18.3 H Plt Count 86 L Neut % (Auto) 70.6 Lymph % (Auto) 9.6 L [place] % (Auto) 16.2 H Eos % (Auto) 2.4 Baso % (Auto) 1.2 Neut # (Auto) 3700 Lymph # (Auto) 500 L [place] # (Auto) 800 Eos # (Auto) 100 Baso # (Auto) 100 PT 12.0 INR 1.0 APTT 30 Sodium 136 L Potassium 4.6 Chloride 102 Carbon Dioxide 29 BUN 32 H Creatinine 0.99 Estimated GFR 56.1 L BUN/Creatinine Ratio 32.3 H Glucose 147 H Hemoglobin A1c Calcium 9.5 Magnesium Total Bilirubin 0.9 AST 46 H ALT 15 Alkaline Phosphatase 125 Ammonia Total Protein 7.9 Albumin 4.0 Globulin 3.9 Albumin/Globulin Ratio 1.0 COVID-19 PCR Blood Type Antibody Screen 04/29/20 04/29/20 04/29/20 16:51 16:56 21:27 WBC RBC Hgb Hct MCV MCH MCHC RDW Plt Count Neut % (Auto) Lymph % (Auto) [place] % (Auto) Eos % (Auto) Baso % (Auto) Neut # (Auto) Lymph # (Auto) [place] # (Auto) Eos # (Auto) Baso # (Auto) PT INR APTT Sodium Potassium Chloride Carbon Dioxide BUN Creatinine Estimated GFR BUN/Creatinine Ratio Glucose Hemoglobin A1c Calcium Magnesium 1.9 Total Bilirubin AST ALT Alkaline Phosphatase Ammonia Total Protein Albumin Globulin Albumin/Globulin Ratio COVID-19 PCR Negative Blood Type A Positive Antibody Screen Negative 04/30/20 04/30/20 04/30/20 05:40 05:40 05:40 WBC 3.3 L RBC 3.94 L Hgb 10.3 L Hct 32.0 L MCV 81.2 MCH 26.2 MCHC 32.2 RDW 18.5 H Plt Count 74 L Neut % (Auto) 66.1 Lymph % (Auto) 13.6 L [place] % (Auto) 13.9 Eos % (Auto) 4.5 H Baso % (Auto) 1.9 Neut # (Auto) 2100 Lymph # (Auto) 400 L [place] # (Auto) 500 Eos # (Auto) 100 Baso # (Auto) 100 PT INR APTT Sodium 138 Potassium 4.4 Chloride 104 Carbon Dioxide 31 BUN 26 H Creatinine 0.94 Estimated GFR 59.6 L BUN/Creatinine Ratio 27.7 H Glucose 133 H Hemoglobin A1c Calcium 9.2 Magnesium Total Bilirubin AST ALT Alkaline Phosphatase Ammonia 20 Total Protein Albumin Globulin Albumin/Globulin Ratio COVID-19 PCR Blood Type Antibody Screen 04/30/20 05:40 WBC RBC Hgb Hct MCV MCH MCHC RDW Plt Count Neut % (Auto) Lymph % (Auto) [place] % (Auto) Eos % (Auto) Baso % (Auto) Neut # (Auto) Lymph # (Auto) [place] # (Auto) Eos # (Auto) Baso # (Auto) PT INR APTT Sodium Potassium Chloride Carbon Dioxide BUN Creatinine Estimated GFR BUN/Creatinine Ratio Glucose Hemoglobin A1c 7.3 H Calcium Magnesium Total Bilirubin AST ALT Alkaline Phosphatase Ammonia Total Protein Albumin Globulin Albumin/Globulin Ratio COVID-19 PCR Blood Type Antibody Screen Assessment & Plan Assessment and plan (1) Acute GI bleeding: Status: Acute (2) Anticoagulated by anticoagulation treatment: Status: Acute (3) Thrombocytopenia: Status: Acute (4) Restrictive lung disease: Problem details: Secondary to scleroderma Status: Acute (5) Scleroderma: Status: Acute (6) Insulin dependent diabetes mellitus: Status: Acute (7) History of upper gastrointestinal bleeding: Status: Acute (8) History of ST elevation myocardial infarction (STEMI): Problem details: 07/06/2019 Status: Acute (9) AML (acute myeloid leukemia) in remission: Status: Acute (10) Cirrhosis: Problem details: Secondary to anti rejection medications Status: Acute (11) Contusion of abdominal wall: Status: Acute Assessment & Plan narrative: This is a 65-year-old woman admitted for GI bleed. She has not passed any blood or stool since yesterday. Her hemoglobin is 10 down from a baseline of 12 last month. She denies any epigastric pain or abdominal pain. She has a large bruise on her abdominal wall reportedly from an insulin injection a week ago. Her platelets are 74, and she is on aspirin and Plavix. She is followed by forest resource specialist at . She reports that she had a colonoscopy 3-4 years ago. In our system she has several EGD reports from about 10 years ago where she was treated for esophageal varices and Tayler-Erickson tears. I discussed with the patient this morning a possibility of having a colonoscopy tomorrow. She does not want stay in the hospital for 2 days to do this. Given that blood is a significant laxative she should be having some stool output if she has a significant lower GI bleed. Looking at her whole picture, she seems to be overly anticoagulated. Given that her platelets are only 74, she has multiple significant bruises and other difficulties with bleeding aside from the bright red blood per rectum, I question the value of her being on Plavix. It would be worthy of having the hospitalist review this, or refer the question back to her jitney driver. I am happy to have her prep today and scope her tomorrow. My thought is that the yield of this is likely to be quite low given that she had a colonoscopy, per her report, 3-4 years ago. I imagine this was probably done at where she is followed by hepatology, since we do not have a record of it in our system. If the patient and hospitalist ultimately decide that she would like to stay for a lower scope, please put her on p.o. clears today, and prep her with 4 L of GoLYTELY this afternoon, and an additional 2 L this evening if she is not running clear by the evening. If she decides to stay for a scope, she should be NPO after midnight, and we will schedule her for colonoscopy with anesthesiologists for sedation tomorrow. If, as she has stated to me she decides to leave without getting scope on this admission, she should have strict return precautions, and should be scheduled for an outpatient colonoscopy with [facility], or with her doctor at at her convenience. I would also strongly suggest reviewing her need for Plavix and aspirin. Thank you for this consult. Please contact me or my partner Dr. Ac who will be chief information security officer today, if any further questions arise. COVID-19 COVID-19 status: Negative Result date/Date tested (Pos, Neg/Pending): 04/29/20 Time Spent With Patient Time with patient: 25 - 35 minutes
[2020-04-30 07:41] VITALS: PULSE 71; RESP 16; O2SAT 96
[2020-04-30 08:00] VITALS: BP 111/41; BP 112/51; BP 112/55; BP 126/63; PULSE 69; PULSE 74; PULSE 78; PULSE 83; RESP 18; TEMP 36.9; O2SAT 95
[2020-04-30] MEDS: METOPROLOL ER 25 MG TABLET PO (09:10)
[2020-04-30] MEDS: PANTOPRAZOLE 40 MG VIAL IV (09:12)
[2020-04-30] MEDS: INSULIN ASPART 100 UNIT/ML INSULN PEN SUBCUT ×2 (10:14→12:52)
--- NOTE | 2020-04-30 10:59 | CM.DANOTE ---
Patient is a 65 year old female who was admitted on 04/29/20 for G.I. Bleed. Pt has [facility] and [facility] for insurance and her PCP is Dr. Timur Schwartz. EMR was reviewed. Per MD, pt with a hx of AML in 1993 in remission but still established with for Oncology and Hepatology. Pt also with hx of anxiety, depression, OCD and established with Dr. Mcknight Psychiatrist at [facility]. Pt with ongoing bleed and bruising and on Plavix and aspirin for 2 stents placed prior and established with Dr. Lopez Regrinder Operator. Surgeon Consulted and recommending colonoscopy but pt stating she would prefer to do it as outpt and surgeon confirms that pt could safely wait to do as outpt if her bleeding has stopped. SW met bedside with pt and explained role and pt soft spoken and brief with her answers but confirms she lives in [place] alone but has local supportive friends. Pt typically independent and somewhat active at baseline and denies any hx of HH or SNF and states she does not anticipate any needs at d/c. Pt hopeful to d/c home today. SW met again bedside with pt during MD rounding and pt's bleeding has resolved and will start on regular diet to confirm she can tolerate and no further bleeding and will consult with pt's Regrinder Operator Dr. Lopez with plan of d/c home later today with follow up with PCP for referral to Dr. Noble at [facility]. Plan: SW to follow for likely pt d/c later today if she can tolerate diet and no further bleeding. No SW needs at this time, please refer if indicated. MARK Burgess Discharge Planning/Care Management CM Discharge Assessment Start: 04/30/20 10:39 Freq: Status: Active Protocol: Document 04/30/20 10:39 BF (Rec: 04/30/20 10:59 BF [id number]) Discharge Planning Assessment Assigned Fuels Engineer MARK Mcghee Advance Directives? No Advance Directives on File No History Provided By Patient,Medical Record Has Patient been admitted in last 30 No days? Prior Living Arrangements House Household Members none Type of transporation used prior to Drives own vehicle admit Independent with ADL's Yes Is patient alert and oriented? Yes Caregiver for Another No Comment Established with [facility], Regrinder Operator Dr. Lopez, and for Oncology and Hepatology Comment Home with outpt follow up for colonoscopy Barriers to Discharge No Discharge Plan Home Transportation Arrangement Patient has a friend who can transport at d/c Referrals Initiated None needed Whiteboard Updated in Patient Room with Yes name and ext. # of Fuels Engineer Review Status In Process Please Provide Date Initial DC 04/30/20 Assessment Was Performed Next Review Type Continued Stay Review
[2020-04-30 12:00] VITALS: BP 122/58; PULSE 70; RESP 16; TEMP 36.6; O2SAT 95
--- NOTE | 2020-04-30 13:52 | PC.NURSE ---
Discharge: Feels ready to d/c home. Seen by Dr. Portillo and she reviewed d/c meds and instructions with her. She is to restart her plavix and aspirin again. If she starts to have rectal bleeding she is to return to the ED to be evaluated again. No new rx. D/c packet reviewed. Questions answered. Voiced no concerns at time of discharge:
--- NOTE | 2020-05-01 16:15 | PM.DS.1 ---
History of Present Illness History of Present Illness Date Patient Seen: 04/30/20 Chief complaint: blood in stool, sores on hip and feet Narrative: Ms. 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 The patient has had multiple episodes abnormal bleeding over the last week. Seven days ago she has a chronic scabbed lesion on right hip which opened with significant bleeding for 5 hours, 2 days ago she developed a large bruise about size palm of the hand over her left lower abdomen, today she had 2 bowel movements with blood coating the stool as well as a large volume of blood in the toilet bowl. The patient reports her stools were formed and soft in consistency and denies complaints of abdominal pain or cramping. She reports no changes in medications but does routinely take a baby aspirin and clopidogrel daily. Her most recent medication change was addition of desvenlafaxine (Pristiq) 2.5 months ago. The patient does endorse multiple episodes of upper GI bleeding but no previous lower GI bleeding. She states her last colonoscopy was 3-4 years ago. The patient does endorse dizziness adding that this is a chronic recurrent condition and appears no worse in last few days. She denies complaints of chest pain and reports her breathing is stable. She reports no recent fevers or chills, nasal congestion or sore throat. She reports rare gum bleeding when brushing her teeth or flossing. She has had no other trauma, inflammation or infection. Her thrombocytopenia is related liver cirrhosis as a platelet count of 86 today which is improved from a low des of 64 on 11/29/2019. She has had no chest pain or palpitations, and reports her breathing as about the same as usual with history restrictive lung disease. She has had no cough or wheezing. She denies epigastric or abdominal pain and has had no hematemesis. She has residual bruising of left lower quadrant following insulin injection. She has had hematochezia as described above. She denies is urinary symptoms or hematuria. She reports loss of fat related to steroid therapy has a chronic pressure ulcer on right hip. Upon arrival to the ER the patient has temperature of 97.8?, heart rate of 71, blood pressure 122/56, respirations of 20 saturating 100% on room air. No imaging was obtained in the ER. She has a white count of 5.2 with an increase in monocytes at 16.2%. Her hemoglobin is 11.2 with hematocrit of 33.8. Her platelets are 86. Her MCV is 81 with an MCH of 26.9 and RDW elevated at 18.3. Her PT is 12 with an INR of 1.0 and a PTT of 30. Her electrolytes are all within normal limits and has a BUN of 32 and a creatinine 0.99 with an EGFR of 56.1. She has a total bilirubin of 0.9, AST of 46, ALT of 15 and alkaline phosphatase 125. Albumin is 4.0. Requested that general surgery be consulted related to the lower GI bleed which is stents of through the emergency department. The patient is admitted to the hospitalist service with lower GI bleeding. Discharge Providers Provider Date of admission: 04/29/20 21:25 Discharge Date: 04/30/20 Primary care physician: Timur Schwartz MD Consults: 04/29/20 21:52 Consult to Dietitian, Adult Routine Comment: Reason For Exam: Cirrhosis, varices, thrombocytopenia, GI bleed 04/29/20 21:53 Consult to Discharge Planning Routine Comment: 04/29/20 22:07 Consult to General Surgery Routine Comment: Consulting Provider: Erica Renteria Reason for consultation: GI bleed Has provider been notified: Yes 04/29/20 22:11 Consult to Dietitian, Adult Routine Comment: Reason For Exam: pt is diabetic and is being treated for depression Discharge provider: Chayo Portillo MD Summary Hospital Course Discharge Diagnosis: 1. Lower GI bleed 2. Cirrhosis 3. AML 4. Coronary artery disease, status post 2 stents June 2019 5. Scleroderma 6. Type 2 diabetes Hospital Course: Patient was admitted to the hospital for lower GI bleed. During her hospital stay she had no further diarrhea, no further rectal bleeding, and no further evidence of blood loss. Her hemoglobin and hematocrit were stable. She did not require transfusion. The patient previously was on aspirin and Plavix. Given her stent placement less than a year ago she was continued on that medication. She had no further bleeding. The patient was offered to have colonoscopy during the hospital stay. She declined for the colonoscopy but preferred an outpatient evaluation. Given she had no further bleeding, no anemia, she was deemed appropriate for discharge home. Patient did have a scab on her right hip. That was losing initially but stopped. She had minimal bruising in the left lower quadrant which appear to be improving. She had no shortness of breath, no complaints, she was deemed appropriate for discharge and arrangements were made for her to discharge home. Status at Discharge Cognitive/behavioral status at discharge: oriented Functional status at discharge: independent ambulation Overall status at discharge: patient is back to baseline Time Spent with Patient Time spent: Less than 30 minutes Exam Vital Signs (past 8 hours): Oxygen Delivery Method Room Air Oxygen Flow Rate 0 Narrative Exam Narrative: Pleasant female in no acute distress Lungs: Clear to auscultation Cardiac exam: Regular rate and rhythm normal S1-S2 Two abdomen: Soft and nontender nondistended Extremities: No edema Skin exam: Bruising in the left lower quadrant healing, scab on the right lower quite non bleeding Objective Labs Result Diagrams: 04/30/20 05:40 04/30/20 05:40 Discharge Assessment & Plan Assessment and Plan Assessment: 1. Lower GI bleed, resolved Plan of Treatment: Discharge home 0ut patient follow-up with Dr. Tavares for elective colonoscopy Discharge Plan Discharge Plan Patient Disposition: Home Discharge orders & Medications Prescriptions: Continued rifaximin 550 mg tablet 550 mg PO BID 30 Days Qty: 60 RF: 0 levothyroxine 50 mcg Tablet 25 mcg PO DAILY Qty: 0 RF: 0 cinacalcet [Sensipar] 30 MG tablet 30 mg PO DAILY Qty: 0 RF: 0 aspirin 81 mg tablet,delayed release (DR/EC) 81 mg PO DAILY RF: 0 clopidogrel 75 mg tablet 75 mg PO DAILY RF: 0 metoprolol succinate 25 mg tablet extended release 24 hr 25 mg PO DAILY RF: 0 nitroglycerin 0.4 mg tablet, sublingual 0.4 mg SL PRN PRN (Reason: chest pain) RF: 0 pantoprazole 40 mg tablet,delayed release (DR/EC) 40 mg PO DAILY RF: 0 Cosentyx Pen 150 mg/mL pen injector 150 mg SUBCUT .QMonthly RF: 0 spironolactone 25 mg tablet 50 mg PO DAILY Qty: 0 RF: 0 insulin aspart U-100 100 unit/mL (3 mL) insulin pen 30 unit SUBCUT TID RF: 0 atorvastatin 40 mg tablet 80 mg PO BEDTIME RF: 0 Humulin R U-500 (Conc) Kwikpen 500 unit/mL (3 mL) insulin pen 30 unit subcut TID RF: 0 albuterol sulfate [Ventolin HFA] 90 mcg/actuation HFA aerosol inhaler 2 puff INHALATION Q6HR PRN (Reason: Shortness Of Breath Or Wheezing) RF: 0 desvenlafaxine succinate [Pristiq] 25 mg Tablet Extended Release 24 Hr 25 mg PO DAILY RF: 0 lactulose 10 gram/15 mL Solution 30 ml PO DAILY RF: 0 Adult One Daily Multivitamin 1 tab PO DAILY RF: 0 Follow up/Referrals: Timur Schwartz MD [Primary Care Provider] - (Please call Dr. Schwartz's office to schedule your hospital follow up appointment.) Erica Renteria MD [Physician] - (Colonoscopy. ) Discharge Health Status Multidrug resistant organism: No MDRO Diet/Activity/Treatments Diet: Carb-consistent/Diabetic and Low-sodium Activity: as tolerated Visit Report/Discharge Packet Instructions: DI for Gastrointestinal Bleeding Visit Report Forms: Patient Portal/API, Stroke Signs & Symptoms Discharge Data Primary Care Provider: Timur Schwartz V Attending Provider: Andrea Pantoja Admit Date/Time: 04/29/20 21:25 Discharges patient from system. Discharge Date/Time: 04/30/20 14:00 Quality VTE Deep Vein Thrombosis/Pulmonary Embolism Present on Admission: No
--- NOTE | 2020-05-04 18:48 | PC.NURSE ---
Late Entry: LR infusion initiated 04/29 at 22:43, complete 04/30 at 08:44.
== END 2020-04-30 14:00 | disposition home or self-care (01) ==
LOC: ED 21:19 → AC 21:26
PROVIDERS: Admitting Provider Nurse Practitioner Adult Health; Emergency Provider Student in an Organized Health Care Education/Training Program; PCP Internal Medicine; Referring Provider Student in an Organized Health Care Education/Training Program; Visit Provider Nurse Practitioner Adult Health
DX: K92.2 Gastrointestinal hemorrhage, unspecified (principal); K92.1 Melena; C92.01 Acute myeloblastic leukemia, in remission; M34.9 Systemic sclerosis, unspecified; K74.60 Unspecified cirrhosis of liver; D69.6 Thrombocytopenia, unspecified; S30.1XXA Contusion of abdominal wall, initial encounter; J98.4 Other disorders of lung; I25.10 Atherosclerotic heart disease of native coronary artery without angina pectoris; E11.9 Type 2 diabetes mellitus without complications; Z79.4 Long term (current) use of insulin; Z87.19 Personal history of other diseases of the digestive system; I25.2 Old myocardial infarction; Z79.01 Long term (current) use of anticoagulants; Z11.59 Encounter for screening for other viral diseases
CPT/HCPCS: 36415; 80048; 80053; 82140; 82962; 83036; 83735; 85025; 85610; 85730; 86850; 86900; 86901; 87635; 93005; 94762; 96361; 96372; 96374; 96376; 99225; 99283; 99284; 99406; G0378; A9270; C9113

== ENCOUNTER 2020-05-12 10:30 | Outpatient (RCR) | payer MEDICARE, MEDICAID, SELFPAY | END 2020-05-17 11:05 | LOC: CAR 10:30 | PROVIDERS: PCP Internal Medicine; Referring Provider Internal Medicine; Visit Provider Internal Medicine | DX: Z95.5 Presence of coronary angioplasty implant and graft (principal) | CPT/HCPCS: 93798 ==

== ENCOUNTER → 2020-06-03 16:32 | Outpatient (CLI) | payer MEDICARE, MEDICAID, SELFPAY ==
[2020-04-29 21:49] VITALS: BMI 24.5
[2020-06-03 17:09] LABS: COVID19 -Nasal RAPID Negative (Negative)
== END ==
PROVIDERS: PCP Internal Medicine; Visit Provider Physician Assistant
DX: Z11.59 Encounter for screening for other viral diseases (principal)
CPT/HCPCS: 87635

== ENCOUNTER 2020-06-03 17:01 | Emergency (ER) | payer MEDICARE, MEDICAID, SELFPAY ==
[2020-04-29 21:49] VITALS: BMI 24.5
[2020-06-03] VITALS (13 sets, daily range): BP systolic 119–163; BP diastolic 56–74; PULSE 67–77; RESP 18–25; TEMP 36.7; O2SAT 97–100; BMI 24.5
--- NOTE | 2020-06-03 17:52 | DI.RAD.S_ITS ---
PROCEDURE: XR CHEST 1V INDICATIONS: chest pain TECHNIQUE: One view of the chest was acquired. COMPARISON: [facility], CR, XR CHEST 1V, 11/29/2019, 17:11. FINDINGS: Surgical changes and devices: None. Lungs and pleura: Bibasilar opacities, right greater than left. There is a probable small right pleural effusion, similar compared to the prior study and horizontal atelectatic change at the left lung base. The upper lung johnson are clear. No pneumothorax. Mediastinum: Mediastinal contours appear normal. Heart size is stable. Bones and chest wall: No suspicious bony lesions. Overlying soft tissues appear unremarkable. IMPRESSION: 1. Chronic small right pleural effusion and probable atelectasis or scar at the left lung base. 2. No significant change since the prior study. 3. No significant central venous congestion. Dictated by: Livier Barrett M.D. on 06/03/2020 at 18:28 Approved by: Livier Barrett M.D. on 06/03/2020 at 18:30
--- NOTE | 2020-06-03 18:07 | ED_ITS ---
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 She has been going to cardiac rehab and is finding that rather than getting easier it is getting much more difficult. She feels that symptoms have been getting worse gradually but she has definitely noticed change in the last 2 weeks. She also complains of in feet increasing fatigue and dizziness with exertion. She denies fevers, chest pain, cough, wheeze, abdominal pain, vomiting, diarrhea, dysuria, flank pain, sinus congestion, or sore throat. Related Data Home Medications Medication Instructions Recorded Confirmed levothyroxine 25 mcg PO DAILY #0 07/17/11 06/03/20 cinacalcet [Sensipar] 30 mg PO DAILY #0 12/16/16 06/03/20 rifaximin 550 mg tablet 550 mg PO BID 30 Days #60 tab 06/25/18 06/03/20 albuterol sulfate [Ventolin HFA] 2 puff INHALATION Q6HR PRN 07/06/19 06/03/20 aspirin 81 mg tablet,delayed 81 mg PO DAILY 08/12/19 06/03/20 release clopidogrel 75 mg tablet 75 mg PO DAILY 08/12/19 06/03/20 insulin aspart U-100 100 unit/mL 30 unit SUBCUT TID ml 08/12/19 06/03/20 (3 mL) subcutaneous pen metoprolol succinate 25 mg 25 mg PO DAILY 08/12/19 06/03/20 tablet,extended release 24 hr nitroglycerin 0.4 mg sublingual 0.4 mg SL PRN PRN tab 08/12/19 06/03/20 tablet pantoprazole 40 mg tablet,delayed 40 mg PO DAILY 08/12/19 06/03/20 release secukinumab 150 mg/mL subcutaneous 150 mg SUBCUT .QMonthly ml 08/12/19 06/03/20 pen injector spironolactone 25 mg tablet 50 mg PO DAILY #0 tab 08/12/19 06/03/20 atorvastatin 40 mg tablet 80 mg PO BEDTIME tab 01/20/20 06/03/20 insulin regular hum U-500 conc 30 unit SUBCUT TID ml 01/20/20 06/03/20 Adult One Daily Multivitamin 1 tab PO DAILY 04/29/20 06/03/20 desvenlafaxine succinate [Pristiq] 25 mg PO DAILY 04/29/20 06/03/20 lactulose 30 ml PO DAILY 04/29/20 06/03/20 Allergies Allergy/AdvReac Type Severity Reaction Status Date / Time hydrocodone Allergy Unknown Verified 06/03/20 16:27 meperidine Allergy Unknown Verified 06/03/20 16:27 morphine Allergy Unknown Verified 06/03/20 16:27 oxycodone Allergy Unknown Verified 06/03/20 16:27 Review of Systems Review of Systems Narrative: Remainder of review of systems including constitutional, ENT, cardiovascular, respiratory, GI, , musculoskeletal, skin, neurologic and psychiatric systems reviewed and are unremarkable except as noted in HPI. Patient History Medical History AML (acute myeloid leukemia) in remission (Acute) Cirrhosis (Acute) Depression (Inactive) Generalized anxiety disorder (Inactive) Hepatic encephalopathy (Inactive) History of ST elevation myocardial infarction (STEMI) (Acute) History of upper gastrointestinal bleeding (Acute) Insulin dependent diabetes mellitus (Acute) Obsessive compulsive disorder (Inactive) Psoriasis (Inactive) Restrictive lung disease (Acute) Scleroderma (Acute) Thrombocytopenia (Acute) Surgical History History of bone marrow transplant (Inactive) History of colonoscopy (Acute) History of coronary artery stent placement (Acute) Family History Father Heart disease S/P CABG x 4 Mother No significant medical problems Brother No significant medical problems Sister Diabetes mellitus Social History household members: none Smoking Status: Never smoker alcohol intake: former Smoking Status: Never smoker alcohol intake frequency: 0-2 drinks per day Substance Use Type: does not use Exam Narrative Exam Narrative: General: Frail appearing, in no acute distress. Able to give a complete and coherent history. Well-nourished well-developed HEENT: Moist mucous membranes, normal sclera with reactive pupils, Neck: No JVD, supple Respiratory: Lungs are clear to auscultation, no wheezing no rales no rhonchi. Full and symmetrical air movement Cardiac: Regular rate and rhythm no murmurs no bruits Abdomen: Soft nontender good bowel tones, no flank pain Skin: Warm and dry, psoriatic plaques and [place] subcutaneous texture to the lower extremities secondary to her scleroderma Neurologic: Grossly neurologically intact with no obvious asymmetries or abnormalities Extremities: No trauma, well perfused Psych: Cooperative, appropriate insight and affect Initial Vital Signs Initial Vital Signs: Vital Signs Temperature 98.1 F 06/03/20 17:20 Pulse Rate 68 06/03/20 17:20 Respiratory Rate 18 06/03/20 17:20 Blood Pressure 122/57 L 06/03/20 17:20 Pulse Oximetry 98 06/03/20 17:20 Course Orders Ordered: ED Orders 06/03/20 17:52 XR chest 1V Stat EKG-12 Lead Stat 06/03/20 18:17 Complete Blood Count AUTO DIFF Stat Comprehensive Metabolic Panel Stat D Dimer Stat Lipase Stat NT-proBNP (BNP-Adult 18+) Stat Partial Thromboplastin Time Stat Procalcitonin Stat Prothrombin Time INR Stat Troponin & CK Cardiac Panel Stat 06/03/20 20:59 CT angio chest PE protocol Stat Vital Signs Vital signs: Vital Signs - 8 hr 06/03/20 17:20 06/03/20 18:00 06/03/20 19:55 Temperature 98.1 F Pulse Rate 68 77 71 Respiratory Rate 18 24 19 Blood Pressure 122/57 L 163/74 H 152/67 H Pulse Oximetry 98 97 99 06/03/20 20:04 06/03/20 20:11 06/03/20 20:30 Temperature Pulse Rate 70 70 67 Respiratory Rate 18 25 H Blood Pressure 126/59 L 130/63 Pulse Oximetry 100 99 100 06/03/20 21:00 06/03/20 21:30 06/03/20 21:53 Temperature Pulse Rate 74 75 74 Respiratory Rate 24 22 Blood Pressure 119/56 L Pulse Oximetry 99 100 99 06/03/20 21:54 06/03/20 22:00 06/03/20 22:29 Temperature Pulse Rate 75 74 71 Respiratory Rate 22 19 21 Blood Pressure 119/56 L 134/64 Pulse Oximetry 98 99 99 06/03/20 22:30 Temperature Pulse Rate Respiratory Rate Blood Pressure 137/60 Pulse Oximetry MDM - SOB/Dyspnea Medical Records Attestation: I reviewed the patient's medical records. Lab Data Attestation: I reviewed the patient's lab results. Result diagrams: 06/03/20 18:17 06/03/20 18:17 Labs: Lab Results 06/03/20 06/03/20 06/03/20 Range/Units 18:17 18:17 18:17 WBC 4.7 (4.5-11.0) X10^3/uL RBC 4.32 (4.0-5.2) X10^6/uL Hgb 10.5 L (12.0-16.0) g/dL Hct 33.4 L (36-46) % MCV 77.1 L (80-100) fL MCH 24.2 L (26-34) PG MCHC 31.4 (30-36) % RDW 19.1 H (11.6-14.8) % Plt Count 90 L (150-400) X10^3/uL Neut % (Auto) 71.7 (50-75) % Lymph % (Auto) 10.1 L (25-40) % [place] % (Auto) 13.1 (3-14) % Eos % (Auto) 3.4 (2-4) % Baso % (Auto) 1.7 (0-2) % Neut # (Auto) 3400 (6980-6664) /uL Lymph # (Auto) 500 L (9019-8803) /uL [place] # (Auto) 600 (0-900) /uL Eos # (Auto) 200 (0-450) /uL Baso # (Auto) 100 (0-100) /uL PT 11.8 (10.1-12.7) SECONDS INR 1.0 (0.9-1.3) APTT 32 D (26.4-36.2) SECONDS D-Dimer (<230) ng/mL Sodium 140 (137-145) mmol/L Potassium 4.1 (3.4-5.1) mmol/L Chloride 105 (98-107) mmol/L Carbon Dioxide 31 (22-32) mmol/L BUN 33 H (7-17) mg/dL Creatinine 1.11 H (0.52-1.04) mg/dL Estimated GFR 49.2 L (>60) mL/min BUN/Creatinine Ratio 29.7 H (6-22) Glucose 115 H (80-110) mg/dL Calcium 9.4 (8.4-10.2) mg/dL Total Bilirubin 0.9 (0.2-1.3) mg/dL AST 41 H (14-36) IU/L ALT 14 (<35) IU/L Alkaline Phosphatase 119 (38-126) U/L Total Creatine Kinase 41 (30-135) U/L CK-MB (CK-2) TNP CK-MB (CK-2) Rel Index TNP Troponin I < 0.012 (0.01-0.034) ng/mL NT-Pro-B Natriuret Pep (<125) pg/mL Total Protein 8.2 (6.3-8.2) g/dL Albumin 4.1 (3.5-5.0) g/dL Globulin 4.1 (1.7-4.1) g/dL Albumin/Globulin Ratio 1.0 (1.0-2.8) Lipase 267 (23-300) U/L Procalcitonin (<0.5) ng/mL 06/03/20 06/03/20 06/03/20 Range/Units 18:17 18:17 18:17 WBC (4.5-11.0) X10^3/uL RBC (4.0-5.2) X10^6/uL Hgb (12.0-16.0) g/dL Hct (36-46) % MCV (80-100) fL MCH (26-34) PG MCHC (30-36) % RDW (11.6-14.8) % Plt Count (150-400) X10^3/uL Neut % (Auto) (50-75) % Lymph % (Auto) (25-40) % [place] % (Auto) (3-14) % Eos % (Auto) (2-4) % Baso % (Auto) (0-2) % Neut # (Auto) (9469-2894) /uL Lymph # (Auto) (9995-8873) /uL [place] # (Auto) (0-900) /uL Eos # (Auto) (0-450) /uL Baso # (Auto) (0-100) /uL PT (10.1-12.7) SECONDS INR (0.9-1.3) APTT (26.4-36.2) SECONDS D-Dimer 745 H (<230) ng/mL Sodium (137-145) mmol/L Potassium (3.4-5.1) mmol/L Chloride (98-107) mmol/L Carbon Dioxide (22-32) mmol/L BUN (7-17) mg/dL Creatinine (0.52-1.04) mg/dL Estimated GFR (>60) mL/min BUN/Creatinine Ratio (6-22) Glucose (80-110) mg/dL Calcium (8.4-10.2) mg/dL Total Bilirubin (0.2-1.3) mg/dL AST (14-36) IU/L ALT (<35) IU/L Alkaline Phosphatase (38-126) U/L Total Creatine Kinase (30-135) U/L CK-MB (CK-2) CK-MB (CK-2) Rel Index Troponin I (0.01-0.034) ng/mL NT-Pro-B Natriuret Pep 103 (<125) pg/mL Total Protein (6.3-8.2) g/dL Albumin (3.5-5.0) g/dL Globulin (1.7-4.1) g/dL Albumin/Globulin Ratio (1.0-2.8) Lipase (23-300) U/L Procalcitonin 0.08 (<0.5) ng/mL Imaging Data Chest x-ray: Radiologist's Impression: FINDINGS: Surgical changes and devices: None. Lungs and pleura: Bibasilar opacities, right greater than left. There is a probable small right pleural effusion, similar compared to the prior study and horizontal atelectatic change at the left lung base. The upper lung johnson are clear. No pneumothorax. Mediastinum: Mediastinal contours appear normal. Heart size is stable. Bones and chest wall: No suspicious bony lesions. Overlying soft tissues appear unremarkable. IMPRESSION: 1. Chronic small right pleural effusion and probable atelectasis or scar at the left lung base. 2. No significant change since the prior study. 3. No significant central venous congestion. Dictated by: Livier Barrett M.D. on 06/03/2020 at 18:28 CT scan - chest: Radiologist's Impression: FINDINGS: Image quality: Excellent. Pulmonary arteries: Pulmonary arteries are normal in size, and demonstrate no intraluminal filling defects to suggest central pulmonary embolism. Lungs and pleura: There are horizontal bibasilar alveolar opacities, likely atelectatic change secondary to elevated hemidiaphragms. No suspicious lung masses or nodules. No pleural effusions or pneumothorax. Central and peripheral airways are patent. Mediastinum: Heart size is normal, without pericardial effusion. There is mitral annular calcification and at least two coronary artery stents (lad and circumflex). No mediastinal or hilar adenopathy. Thoracic aorta is normal in caliber and enhancement. Esophagus is normal in caliber, without hiatal hernia. Bones and chest wall: No suspicious bony lesions. Ribs and thoracic spine appear intact throughout. Thyroid gland is normal . No axillary or supraclavicular adenopathy. Abdomen: The visible upper abdomen demonstrates cirrhotic and nodular liver morphology with small amount of perihepatic ascites. The visible portion of the spleen is probably enlarged. IMPRESSION: 1. No pulmonary embolus. 2. Cirrhosis and probable portal hypertension. 3. Low lung volumes and bibasilar atelectatic changes, less likely infection. 4. Coronary stents present Dictated by: Livier Barrett M.D. on 06/03/2020 at 21:58 ECG Data Attestation: I personally reviewed and interpreted this ECG as follows: Interpretation: Sinus rhythm at a rate of 73 LVH Normal axis, normal intervals No acute ischemic changes MDM Narrative Medical decision making narrative: Labs are reviewed. She does not have worsening anemia, acute coronary syndrome congestive heart failure or Covid to explain her increasing exertional dyspnea. Her D-dimer slightly elevated at [address] study is reassuringly negative. She does need to follow-up with her primary care physician and understands this. Physiologic stress testing or echocardiogram may be the next appropriate step in outpatient workup. She is safe for discharge Discharge Plan Departure Patient Disposition: Home Clinical Impression: Exertional dyspnea Instructions: DI for Shortness of Breath Activity Restrictions/Additional Instructions: Thank you for coming in today This exertional shortness of breath that seems to be getting worse with less activity is concerning. In the emergency department you had a thorough evaluation and it shows that ther e is no heart attack or acute heart syndrome, pneumonia or COVID, significant anemia, congestive heart failure or blood clots in your lungs. At this point, it is safe for you to go home however you do need to follow-up with Dr. Schwartz all for further outpatient evaluation to see if we can get to the bottom of your worsening shortness of breath. If you feel like you are getting worse, developed chest pain, palpitations, fevers or new symptoms it would be appropriate to return to the emergency de partment. Prescriptions: No Action rifaximin 550 mg tablet 550 mg PO BID 30 Days Qty: 60 RF: 0 levothyroxine 50 mcg Tablet 25 mcg PO DAILY Qty: 0 RF: 0 cinacalcet [Sensipar] 30 MG tablet 30 mg PO DAILY Qty: 0 RF: 0 aspirin 81 mg tablet,delayed release (DR/EC) 81 mg PO DAILY RF: 0 clopidogrel 75 mg tablet 75 mg PO DAILY RF: 0 metoprolol succinate 25 mg tablet extended release 24 hr 25 mg PO DAILY RF: 0 nitroglycerin 0.4 mg tablet, sublingual 0.4 mg SL PRN PRN (Reason: chest pain) RF: 0 pantoprazole 40 mg tablet,delayed release (DR/EC) 40 mg PO DAILY RF: 0 Cosentyx Pen 150 mg/mL pen injector 150 mg SUBCUT .QMonthly RF: 0 spironolactone 25 mg tablet 50 mg PO DAILY Qty: 0 RF: 0 insulin aspart U-100 100 unit/mL (3 mL) insulin pen 30 unit SUBCUT TID RF: 0 atorvastatin 40 mg tablet 80 mg PO BEDTIME RF: 0 Humulin R U-500 (Conc) Kwikpen 500 unit/mL (3 mL) insulin pen 30 unit subcut TID RF: 0 albuterol sulfate [Ventolin HFA] 90 mcg/actuation HFA aerosol inhaler 2 puff INHALATION Q6HR PRN (Reason: Shortness Of Breath Or Wheezing) RF: 0 desvenlafaxine succinate [Pristiq] 25 mg Tablet Extended Release 24 Hr 25 mg PO DAILY RF: 0 lactulose 10 gram/15 mL Solution 30 ml PO DAILY RF: 0 Adult One Daily Multivitamin 1 tab PO DAILY RF: 0 Referrals: Timur Schwartz MD [Primary Care Provider] -
[2020-06-03 18:24] LABS: Add Manual Diff / Slide Review NO; Basophils Absolute Auto 100 /uL (0-100); Basophils Percent Auto 1.7 % (0-2); Eosinophils Absolute Auto 200 /uL (0-450); Eosinophils Percent Auto 3.4 % (2-4); Hematocrit 33.4 % (36-46); Hemoglobin 10.5 g/dL (12.0-16.0); Lymphocytes Absolute Auto 500 /uL (1100-4500); Lymphocytes Percent Auto 10.1 % (25-40); Mean Corpuscular HGB Conc 31.4 % (30-36); Mean Corpuscular Hemoglobin 24.2 PG (26-34); Mean Corpuscular Volume 77.1 fL (80-100); Monocytes Absolute Auto 600 /uL (0-900); Monocytes Percent Auto 13.1 % (3-14); Neutrophils Absolute Auto 3400 /uL (1500-7000); Neutrophils Percent Auto 71.7 % (50-75); Platelet Count 90 X10^3/uL (150-400); Red Blood Cell Count 4.32 X10^6/uL (4.0-5.2); Red Cell Distribution Width 19.1 % (11.6-14.8); White Blood Cell Count 4.7 X10^3/uL (4.5-11.0)
[2020-06-03 18:42] LABS: Prothrombin Time 11.8 SECONDS (10.1-12.7)
[2020-06-03 18:44] LABS: PTT Partial Thromboplastin Tim 32 SECONDS (26.4-36.2)
[2020-06-03 18:50] LABS: Alanine Aminotransferase 14 IU/L (<35); Albumin 4.1 g/dL (3.5-5.0); Alkaline Phosphatase 119 U/L (38-126); Aspartate Aminotransferase 41 IU/L (14-36); BUN Creatinine Ratio 29.7 (6-22); Bilirubin Total 0.9 mg/dL (0.2-1.3); Blood Urea Nitrogen 33 mg/dL (7-17); Calcium 9.4 mg/dL (8.4-10.2); Carbon Dioxide 31 mmol/L (22-32); Chloride 105 mmol/L (98-107); Creatine Kinase 41 U/L (30-135); Estimated Glomerular Filt Rate 49.2 mL/min (>60); Globulin 4.1 g/dL (1.7-4.1); Glucose 115 mg/dL (80-110); HEMOLYSIS < 15 (0-50); Lipase 267 U/L (23-300); Potassium 4.1 mmol/L (3.4-5.1); Sodium 140 mmol/L (137-145); Total Protein 8.2 g/dL (6.3-8.2)
[2020-06-03 18:56] LABS: D Dimer 745 ng/mL (<230)
[2020-06-03 18:59] LABS: NT-proBNP (BNP-Adult 18+) 103 pg/mL (<125)
[2020-06-03 19:01] LABS: Troponin I < 0.012 ng/mL (0.01-0.034)
[2020-06-03 19:07] LABS: Procalcitonin 0.08 ng/mL (<0.5)
--- NOTE | 2020-06-03 20:59 | DI.CT.S_ITS ---
PROCEDURE: CT ANGIO CHEST PE PROTOCOL INDICATIONS: elevated d dimer, exertional dyspnea, scleroderma, recent IA TECHNIQUE: After the administration of intravenous contrast, 2 mm thick sections acquired from the pulmonary apices to the posterior costophrenic angles. 3-dimensional maximum intensity projection (MIP) coronal and sagittal reformats were then acquired through the thorax. For radiation dose reduction, the following was used: automated exposure control, adjustment of mA and/or kV according to patient size. COMPARISON: None. FINDINGS: Image quality: Excellent. Pulmonary arteries: Pulmonary arteries are normal in size, and demonstrate no intraluminal filling defects to suggest central pulmonary embolism. Lungs and pleura: There are horizontal bibasilar alveolar opacities, likely atelectatic change secondary to elevated hemidiaphragms. No suspicious lung masses or nodules. No pleural effusions or pneumothorax. Central and peripheral airways are patent. Mediastinum: Heart size is normal, without pericardial effusion. There is mitral annular calcification and at least two coronary artery stents (lad and circumflex). No mediastinal or hilar adenopathy. Thoracic aorta is normal in caliber and enhancement. Esophagus is normal in caliber, without hiatal hernia. Bones and chest wall: No suspicious bony lesions. Ribs and thoracic spine appear intact throughout. Thyroid gland is normal . No axillary or supraclavicular adenopathy. Abdomen: The visible upper abdomen demonstrates cirrhotic and nodular liver morphology with small amount of perihepatic ascites. The visible portion of the spleen is probably enlarged. IMPRESSION: 1. No pulmonary embolus. 2. Cirrhosis and probable portal hypertension. 3. Low lung volumes and bibasilar atelectatic changes, less likely infection. 4. Coronary stents present Dictated by: Livier Barrett M.D. on 06/03/2020 at 21:58 Approved by: Livier Barrett M.D. on 06/03/2020 at 22:05
--- NOTE | 2020-06-03 21:39 | PC.NURSE ---
Covid test in ER cancelled per provider as patient had covid test from [facility] at 1630 today that resulted negative.
== END 2020-06-03 22:43 | disposition home or self-care (01) ==
PROVIDERS: Emergency Medicine; Emergency Provider Emergency Medicine; PCP Internal Medicine
DX: R06.09 Other forms of dyspnea (principal); R07.9 Chest pain, unspecified; R79.89 Other specified abnormal findings of blood chemistry; M34.9 Systemic sclerosis, unspecified; E11.9 Type 2 diabetes mellitus without complications; E03.9 Hypothyroidism, unspecified; E78.5 Hyperlipidemia, unspecified; Z11.59 Encounter for screening for other viral diseases
CPT/HCPCS: 36415; 71045; 71275; 80053; 82550; 83690; 83880; 84145; 84484; 85025; 85379; 85610; 85730; 87635; 93005; 99284; Q9967

== ENCOUNTER → 2020-06-15 14:49 | Outpatient (CLI) | payer MEDICARE, MEDICAID, SELFPAY ==
[2020-04-29 21:49] VITALS: BMI 24.5
--- NOTE | 2020-06-15 | DI.ECHO.S_ITS ---
[place] [facility] +---------+ : : [address] : : : : [id number] : : : : Phone: [phone]+ Echocardiogram Report + + :Name: MALISSA DOTSON Study Date: 06/15/2020 Height: 64 in : :[facility] Weight: 145 lb : : Gender: Female BSA: 1.7 m2 : :: 1955 Age: 65 yrs BP: 135/67 mmHg: :Reason For Study: CAD : :Ordering Physician: LALA, : :CULLEN Performed By: Leni Gonzalez : :Referring: CULLEN REEVES : + + Interpretation Summary Left ventricular systolic function remains normal with an estimated ejection fraction 65 to 70% without any focal wall motion abnormality. There is mild proximal septal hypertrophy but no evidence for outflow tract obstruction. Diastolic function cannot be assessed but there is no compelling evidence for significantly elevated filling pressures. There has been no significant change since the previous study. The right ventricle grossly appears normal and unchanged from the previous study. Right ventricular systolic pressure is estimated at around 28 mmHg with a CVP of 3 mmHg, and is likely unchanged from the previous study. Both atria are normal in size and grossly unchanged from the previous exam. There is significant mitral annular calcification but no significant functional valvular abnormality. The ascending aorta is mildly enlarged at 3.4 cm but is unchanged from the previous exam. Procedure: A two-dimensional transthoracic echocardiogram with color flow and Doppler was performed. The study quality was technically adequate. Comparison is made with the echocardiogram of 01/08/2020. The patient was in sinus rhythm with heart rates between 74-82 bpm during the exam. Left Ventricle: The left ventricle is normal in size and wall thickness. There is mild proximal septal thickening noted. Left ventricular systolic function appears normal without focal wall motion abnormalities. The ejection fraction is estimated to be 60-65%. Diastolic function could not be accurately assessed due to contradictory data. There has been no significant change since the previous study. Right Ventricle: The right ventricle is not well visualized. The right ventricle grossly appears normal in size with probable normal systolic function. This is unchanged compared to the previous study. Atria: Both atria are normal in size. This is unchanged compared to the previous study. There is no Doppler evidence for an interatrial shunt. Mitral Valve: There is moderate mitral annular calcification. The mitral valve leaflets appear mildly thickened, but open well. There is no mitral valve stenosis. There is trace mitral regurgitation. This is unchanged compared to the previous study. Aortic Valve: The aortic valve is trileaflet. The aortic valve is slightly calcified. The aortic valve opens well. There is no aortic valve stenosis. No aortic regurgitation is present. Tricuspid Valve: The tricuspid valve is normal in structure and function. There is trace tricuspid regurgitation. The right ventricular systolic pressure is estimated to be at least 28 mmHg based on an estimated right atrial pressure of 3 mm Hg. This is unchanged compared to the previous study. Pulmonic Valve: The pulmonic valve leaflets are thin and pliable; valve motion is normal. There is trace pulmonic regurgitation. There is no significant valvular heart disease. Great Vessels: The aortic root is normal size. The ascending aorta is mildly enlarged. This is unchanged compared to the previous study. The IVC is of normal diameter and collapses greater than 50% with a sniff. This suggests a low right atrial pressure of 3 mm Hg. Pericardium/ Pleura There is no pericardial effusion. There is no pleural effusion. MMode/2D Measurements & Calculations LVIDd: 4.3 cm LVOT diam: 1.9 cm LVIDs: 2.7 cm Ao root diam: 3.2 cm FS: 37.2 % asc Aorta Diam: 3.4 cm EPSS: 1.2 cm Ao Arch Diam (Prox Trans): 2.8 cm IVSd: 0.77 cm LVPWd: 0.98 cm LV hernandez. diameter/BSA (cm/m^2): 2.5 LV sys. diameter/BSA (cm/m^2): 1.6 LA A2 area: 18.6 cm2 RA long axis: 4.6 cm LA A4 area: 17.8 cm2 RA area: 13.6 cm2 LA length (vol): 5.0 cm RA vol: 33.7 ml LA vol: 56.2 ml RA : 19.8 ml/m2 LA vol index: 32.9 ml/m2 IVC diam: 1.5 cm RVD1 (basal): 3.2 cm TAPSE: 2.1 cm Doppler Measurements & Calculations Ao V2 max: 121.3 cm/sec LVOT Max Yg: 107.7 cm/sec Ao V2 mean: 82.5 cm/sec LV V1 max P.6 mmHg Ao max P.9 mmHg LV V1 VTI: 25.8 cm Ao mean P.1 mmHg JUNG(I,D): 2.7 cm2 Ao V2 VTI: 26.4 cm JUNG(V,D): 2.4 cm2 sev ratio: 0.98 JUNG indexed to BSA (cm^2/m^2): 1.6 MV E max yg: 94.9 cm/sec TR max yg: 249.0 cm/sec MV A max yg: 114.7 cm/sec TR max P.8 mmHg MV E/A: 0.83 PA V2 max: 78.4 cm/sec Med Peak E' Yg: 5.9 cm/sec PA V2 mean: 58.8 cm/sec E/E' med: 16.2 PA mean P.5 mmHg Lat Peak E' Yg: 8.0 cm/sec PA pr(Accel): 22.5 mmHg E/E' lat: 11.9 E/e' average: 14.0 MV dec time: 0.30 sec MVA(VTI): 2.5 cm2 MV V2 mean: 67.5 cm/sec SV(LVOT): 70.5 ml MV mean P.2 mmHg MV V2 VTI: 28.1 cm Reading Physician:07:52 AM
== END ==
PROVIDERS: PCP Internal Medicine; Referring Provider Specialist; Visit Provider Specialist
DX: I25.10 Atherosclerotic heart disease of native coronary artery without angina pectoris (principal); I77.89 Other specified disorders of arteries and arterioles
CPT/HCPCS: 93306

== ENCOUNTER → 2020-06-25 15:46 | Outpatient (CLI) | payer MEDICARE, MEDICAID, SELFPAY ==
[2020-06-22 10:32] VITALS: BMI 24.5
[2020-06-25 16:28] LABS: COVID19 -Nasal RAPID Negative (Negative)
== END ==
PROVIDERS: PCP Internal Medicine; Visit Provider Physician Assistant
DX: Z11.59 Encounter for screening for other viral diseases (principal)
CPT/HCPCS: 87635

== ENCOUNTER → 2020-06-28 10:04 | Outpatient (CLI) | payer MEDICARE, MEDICAID, SELFPAY ==
[2020-04-29 21:49] VITALS: BMI 24.5
[2020-06-22 10:32] VITALS: BMI 24.5
--- NOTE | 2020-06-28 17:45 | DI.NM.S_ITS ---
DATE OF SERVICE: 06/28/2020 PROCEDURE: Pharmacological perfusion study. DATE OF STUDY: 06/28/2020. INDICATIONS: Shortness of breath with a known history of coronary artery disease status post LAD and obtuse marginal branch stenting June 2019, diabetes mellitus, hypertension, hyperlipidemia. RADIOPHARMACEUTICAL: 26.8 millicurie technetium-99m Myoview IV was injected at stress and 13.1 millicurie technetium-99m Myoview IV was injected at rest. CARDIAC STRESS: The patient underwent IV Lexiscan perfusion study under the supervision of an attending staff as per standard protocol. She received IV Lexiscan as per standard protocol. Remained hemodynamically stable. No chest pain, but felt shortness of breath during Lexiscan injection. Baseline EKG revealed sinus rhythm with nonspecific ST changes which remain persistent during stress test. No significant arrhythmias. No reversal agent needed. RAW DATA: There was a significantly enlarged breast shadow seen. GATED STUDY: Stress LV ejection fraction 84% without any obvious wall motion abnormalities. Resting end-diastolic volume 64 mL. TID ratio 1.12, which is within normal limits. Lung/heart ratio 0.30, which is within normal limits. MYOCARDIAL PERFUSION SCAN: Stress supine and resting supine images were compared to each other. Please note, this patient does not have any prone images. The resting supine images revealed moderate size, mildly decreased perfusion of inferior wall and severely decreased perfusion of inferior apex extending into the distal inferolateral wall. During stress supine perfusion scan looks much better. The inferior wall defect has significantly improved. Inferior apical defect has improved. During stress supine, there was mildly decreased perfusion of inferior apex and distal inferior lateral wall. No obvious reversible ischemia. CONCLUSION: I will call this study likely an abnormal myocardial perfusion study with evidence of distal inferior lateral and inferior apical infarction. However, there is a possibility of significant tissue attenuation artifact as well. Large breast shadow which was engulfing the entire heart was seen during raw images. Overall, there is no wall motion abnormalities. Clinical correlation is recommended. Overall this is a low-risk myocardial perfusion scan. Marianela Valdez - TEGAN/oliverio/ramiro doc#: [id number]/job#: [id number] dd: 06/28/2020 16:54:00 dt: 06/28/2020 17:26:00 DICTATING MD/COPIES TO: Avery Buckley MD COPIES MNE: RAUL;
== END ==
PROVIDERS: PCP Internal Medicine; Referring Provider Internal Medicine; Visit Provider Internal Medicine
DX: R94.39 Abnormal result of other cardiovascular function study (principal); I25.10 Atherosclerotic heart disease of native coronary artery without angina pectoris; R06.02 Shortness of breath; E11.9 Type 2 diabetes mellitus without complications; I10 Essential (primary) hypertension; E78.5 Hyperlipidemia, unspecified; Z95.5 Presence of coronary angioplasty implant and graft
CPT/HCPCS: 78452; 93017; A9502; J2785

== ENCOUNTER → 2020-07-12 19:36 | Outpatient (ROUT) | payer MEDICARE, MEDICAID, SELFPAY ==
[2020-06-22 10:32] VITALS: BMI 24.5
[2020-07-12 20:09] LABS: Add Manual Diff / Slide Review NO; Basophils Absolute Auto 100 /uL (0-100); Basophils Percent Auto 1.3 % (0-2); Eosinophils Absolute Auto 100 /uL (0-450); Eosinophils Percent Auto 3.6 % (2-4); Hematocrit 30.7 % (36-46); Hemoglobin 9.7 g/dL (12.0-16.0); Lymphocytes Absolute Auto 500 /uL (1100-4500); Lymphocytes Percent Auto 11.2 % (25-40); Mean Corpuscular HGB Conc 31.6 % (30-36); Mean Corpuscular Hemoglobin 23.2 PG (26-34); Mean Corpuscular Volume 73.4 fL (80-100); Monocytes Absolute Auto 600 /uL (0-900); Monocytes Percent Auto 13.6 % (3-14); Neutrophils Absolute Auto 2900 /uL (1500-7000); Neutrophils Percent Auto 70.3 % (50-75); Platelet Count 112 X10^3/uL (150-400); Red Blood Cell Count 4.19 X10^6/uL (4.0-5.2); Red Cell Distribution Width 21.4 % (11.6-14.8); White Blood Cell Count 4.1 X10^3/uL (4.5-11.0)
[2020-07-12 20:16] LABS: HEMOLYSIS < 15 (0-50); Iron 31 ug/dL (37-170)
[2020-07-12 20:29] LABS: Percent Iron Saturation 7 % (15-50); Total Iron Binding Capacity 476 ug/dL (265-497); Transferrin 368 mg/dL (206-381)
[2020-07-12 20:35] LABS: Hypochromasia 1+; Microcytosis 1+
[2020-07-12 20:44] LABS: Vitamin D 25 Hydroxy (D3) 65.1 ng/mL (30.0-100.0)
[2020-07-12 20:51] LABS: Ferritin 9 ng/mL (11-264)
== END ==
PROVIDERS: PCP Internal Medicine; Visit Provider Internal Medicine
DX: D50.9 Iron deficiency anemia, unspecified (principal); E21.3 Hyperparathyroidism, unspecified
CPT/HCPCS: 82306; 82728; 83540; 83550; 85025

== ENCOUNTER → 2020-07-26 13:18 | Outpatient (CLI) | payer MEDICARE, MEDICAID, SELFPAY ==
[2020-06-22 10:32] VITALS: BMI 24.5
[2020-07-26 14:44] LABS: COVID19 -Nasal RAPID Negative (Negative)
== END ==
PROVIDERS: PCP Internal Medicine; Visit Provider Surgery
DX: Z01.812 Encounter for preprocedural laboratory examination (principal); Z20.822 Contact with and (suspected) exposure to COVID-19
CPT/HCPCS: 87635; C9803

== ENCOUNTER 2020-07-27 08:56 | Day surgery (SDC) | payer MEDICARE, MEDICAID, SELFPAY ==
[2020-06-22 10:32] VITALS: BMI 24.5
[2020-07-27] VITALS (8 sets, daily range): BP systolic 104–133; BP diastolic 48–68; PULSE 69–94; RESP 13–20; TEMP 36–36.7; O2SAT 96–100; BMI 24.9
--- NOTE | 2020-07-27 | PATH_ITS ---
[facility] Accession Number: [id number] . 01 Material submitted: . PART A: cecum - CECAL POLYP PART B: body - POLYP 80 CM PART C: body - POLYP AT 60 CM PART D: body - POLYP AT 30 CM PART E: rectum - RECTAL POLYP . 01 Clinical history: . DX COLONOSCOPY AND ADDED EGD . 02 Diagnosis: A. Cecum, Polyp, Biopsy: Sessile serrated adenoma. . B. Polyp 80 cm, Biopsy: Tubular adenoma. . C. Colon, Polyp at 60 cm, Biopsy: Tubular adenoma. . D. Colon, Polyp at 30 cm, Biopsy: Hyperplastic polyp. . E. Rectum, Polyp, Biopsy: Tubular adenoma in two of four fragments. Hyperplastic polyp in two fragments. [facility] 07/29/2020 1251 Local . 02 Electronically signed: . Madison Faith MD, Pathologist NPI- [id number] . 01 Gross description: . Part A: CECAL POLYP: Received in formalin is 1 fragment(s) of doran, soft tissue measuring 0.7 x 0.5 x 0.4 cm submitted entirely in 1 cassette(s) Part B: POLYP 80 CM: Received in formalin are multiple fragment(s) of doran, soft tissue measuring 0.1 x 0.1 x 0.1 cm to 0.3 x 0.2 x 0.2 cm submitted entirely in 1 cassette(s) Part C: POLYP AT 60 CM: Received in formalin are 3 fragment(s) of doran, soft tissue measuring 0.3 x 0.2 x 0.2 cm to 0.6 x 0.6 x 0.3 cm submitted entirely in 1 cassette(s) Part D: POLYP AT 30 CM: Received in formalin is 1 fragment(s) of doran, soft tissue measuring 0.3 x 0.3 x 0.2 cm submitted entirely in 1 cassette(s) Part E: RECTAL POLYP: Received in formalin are 3 fragment(s) of doran, soft tissue measuring 0.1 x 0.1 x 0.1 cm to 0.4 x 0.4 x 0.3 cm submitted entirely in 1 cassette(s) /ASHWINI 07/28/2020 1846 Local . 02 Pathologist provided ICD-10: D12.0, D12.6, D12.8 . 02 CPT . 470230, 771651, [id number], [id number], [id number] Performed at: 01 [facility] [address] [place] [address], [place], [place] [id number] MD Wallace Bright MD Phone: [phone] Performed at: 02 [facility] [address] [place], [place] [id number] MD Madison Faith MD Phone: [phone]
[2020-07-27] MEDS: LACTATED RINGERS 1,000 ML 42 ML IV (09:45)
--- NOTE | 2020-07-27 10:08 | PM.PREOP ---
Pre-operative Note COVID-19 COVID-19 status: Negative Result date/Date tested (Pos, Neg/Pending): 07/27/20 Interval Note History & Physical reviewed/Exam performed by Physician: Yes Changes to H&P: No H&P completed within 30 days and has changed as indicated here:: Patient has decided to only have colonoscopy and no EGD at this time
--- NOTE | 2020-07-27 11:05 | PM.OP.ENDO ---
Operative Date/Time/Diagnoses Date of procedure: 07/27/20 Time of procedure: 11:05 Pre-op diagnosis: Anemia, rectal bleeding Post-op diagnosis: other (Numerous adenomatous appearing polyps, hemorrhoids) Procedure & Clinicians Study performed: Colonoscopy Polypectomy x 10 with cold snare Polypectomy x 2 with hot snare Polypectomy x 4 with Jumbo forceps Cauterization of bleeding polypectomy site Same procedure as scheduled: Yes Indications: Anemia, rectal bleeding, personal history of colon polyps, overdue for surveillance colonoscopy. The patient required monitored anesthesia care for this procedure due to her medical fragility, at high risk for cardiac or respiratory complication from colonoscopy under sedation. Surgeon: Erica Renteria Procedure Notes SCOAP/Timeout: Performed Procedure in detail: The patient was brought to the room and placed in left lateral decubitus position with all bony prominences padded. A time-out was performed and then the patient was given procedural sedation By Dr. Ferraro. Once adequately sedated, the procedure was begun. A rectal exam was performed revealing quiescent internal and external hemorrhoids. The colonoscope was then introduced to the rectum and advanced to the cecum in the usual fashion. The cecum was identified by the appendiceal orifice, the mucosal tri-fold, and the ileocecal valve. A 1 cm polyp was seen right at the appendiceal orifice. It was removed with cold snare. Three additional polyps were seen at 80 cm, and removed with cold snare. There was some bleeding from 1 of the polypectomy sites which was treated with cautery to good hemostasis. Additional polyps were found at 60 cm, 30 cm, and in the rectum. Total of 16 polyps were removed using cold snare, hot snare, and Jumbo forceps. All polyps appeared to be adenomatous, and precancerous. The prep was moderate, with adherent stool in some places. There is a possibility of missing the smaller polyps due to the prep. Scope was then retracted while rotating side to side and examining each mucosal fold. At the conclusion of the procedure retroflexion was performed and moderate grade 2-3 internal hemorrhoids without stigmata of recent bleeding were seen. The scope was then withdrawn from the rectum the procedure was concluded. The patient tolerated the procedure well and was transferred to the PACU in stable condition. Scope withdrawal time: 18 Findings: internal hemorrhoids (Grade 2-3) and polyp (Many, adenomatous appearing, precancerous appearing polyps) Specimen(s): other (Polyps from cecum, 80 cm, 60 cm, 30 cm, and rectum, total of 16 polyps) Complications: none Impression: Many adenomatous appearing polyps, not likely the source of bleeding. The patient it is rectal bleeding was likely from her hemorrhoids. Post-procedure Recommendations: Colonscopy in 3 years (Repeat colonoscopy in 3-5 years due to multiple polyps, depending on pathology results) Plan for aftercare: We will contact the patient with her pathology results, and final recommendations for repeat colonoscopy. Follow up: as needed Disposition: PACU
--- NOTE | 2020-07-27 11:55 | SUR.PHASEII ---
Patient resting quietly in stretcher with no complaints at this time. All discharge instructions reviewed with patient. Unable to reach feedmobile driver at this time and will attempt again.
--- NOTE | 2020-07-27 13:41 | SUR.PHASEI ---
Late entry: Stable PACU stay, o2 weaned off tolerated po fluids and soft belly.
== END 2020-07-27 13:05 | disposition home or self-care (01) ==
PROVIDERS: PCP Internal Medicine; Referring Provider Internal Medicine; Visit Provider Surgery
PROC: 0DJD8ZZ Inspection of Lower Intestinal Tract, Via Natural or Artificial Opening Endoscopic (ICD-10-PCS; CPT 45378; principal; 2020-07-27 10:15)
DX: K62.5 Hemorrhage of anus and rectum (principal); D64.9 Anemia, unspecified; I25.10 Atherosclerotic heart disease of native coronary artery without angina pectoris; E11.9 Type 2 diabetes mellitus without complications; Z79.4 Long term (current) use of insulin; K74.60 Unspecified cirrhosis of liver; Z79.01 Long term (current) use of anticoagulants; I25.2 Old myocardial infarction; K64.1 Second degree hemorrhoids; K64.4 Residual hemorrhoidal skin tags; D12.0 Benign neoplasm of cecum; D12.6 Benign neoplasm of colon, unspecified; D12.8 Benign neoplasm of rectum
CPT/HCPCS: 45385; 45380; J2704

== ENCOUNTER 2020-08-23 15:15 | Outpatient (RCR) | payer MEDICARE, MEDICAID, SELFPAY ==
--- NOTE | 2020-02-02 12:54 | PT.OIE ---
Current Diagnoses Systemic sclerosis, unspecified (01/28/20) Visit Care Team Role Provider Type Timur Schwartz MD Primary Care Provider Physician Specialty: Internal Medicine Address: [address] [place] [address], [id number] Email: [email or web address] Gage Palomares DO Attending Provider Non-Staff Referring Provider Specialty: Dermatology Address: [facility], [place], [address] Email: Physical Therapy Initial Evaluation PT-OP-A Visit Information Start: 01/28/20 11:22 Freq: Status: Active Protocol: Document 01/28/20 11:26 [facility] (Rec: 01/28/20 11:40 [facility] [id number]) Out-Patient Physical Therapy Visit Information Visit Information Visit Type Initial Evaluation Visit Start Time 01:15 Visit Stop Time 12:00 Total Visit Minutes 45 Visit Number 1 Evaluation Information Evaluation Date 01/28/20 PT-OP-B Current Condition Start: 01/28/20 11:22 Freq: Status: Active Protocol: Document 01/28/20 11:26 [facility] (Rec: 01/28/20 11:40 [facility] [id number]) Current Condition History of Current Condition Onset Date Pt has a chronic hx of scleroderma, recent flare after a MD July 08 Current Complaints painful ROM LE especially the ankles/feet,painful gait, decreased balance History of Current Condition Pt has a hisotry of scleroderma that affects her LE. This makes her legs so tight she has lost ROM in her ankles. She reports pain with walking, decresased balance and poor energy. She has been seen in PT years ago for help reducing tightness in her legs. She notes that symptms increased following a myocardial infacrtion in June of 2019. Fay reports for days before her heart attack she was having a buring pain in her chest, she was taken to the ER at [facility] and then sent to [facility] She was transfered from [facility] to [facility] in [place]. She had 2 stents put in and then had a GI bleed. When she returned home and for awhile ( a week or two) she felt increased energy. But then it went away. Has new symptoms of psorasis and reports her legs feel very bound. Taking Consentyx the injection for Psorasis. The scleroderma in her feet and legs feels worse. She hasn't had treatment in so many years for her legs. She is taking blood thinners. SHe had been doing cardiac rehab and doing really good but had to stop due to covid 19 pandemic. She hasn't been walking as much as she had before and she reports 15-20 minutes is her walking max. Past medical history includes hx of cancer, depression, type II diabetes, dizzyness, memory loss, neuropathy, thyroid disorder, psychological disorder Treatment Goals Patient/Caregiver Goals pt reports she would like to get to 35-40 minutes of walking, other goals include balance training, strengthening, and loosening her leg muscles. Prior Functional Status Baseline Function- ADL's Independent Baseline Function- Mobility Independent Current Functional Impairments (Reported) Functional Limitations- Mobility/Gait Because of the tightness her balance is off and she feels really off balance. Standing hurts due to the leg tightnes. She notes both her feet and legs have increased pain after 10 minutes of static standing . She uses a cane for outdoor ambulation. Functional Limitations- Recreation/ limited recreational Hobbies activities due to decreased endurance and pain in her legs with activity PT-OP-C Subjective Start: 01/28/20 11:22 Freq: Status: Active Protocol: Document 01/28/20 11:15 [facility] (Rec: 02/02/20 08:51 [facility] [id number]) OP-PT Pain Assessment Pain Assessment Grid Paper Pain Assessment Grid Completed Yes Location B LE/anterior and posterior calf Intensity 6 Scale Used Numeric (0 - 10) Description Chronic,Pulling,Tender, Tightness,Throbbing,With Movement Frequency Daily B hips Pain Location Details pain cant be ignored for any length of time Intensity 5 Scale Used Numeric (0 - 10) Description Pulling,Tightness,Throbbing, With Movement Frequency Daily Pain Alleviating Factors Massage PT-OP-F Manual Assessment Start: 01/28/20 11:22 Freq: Status: Active Protocol: Document 01/28/20 11:15 [facility] (Rec: 02/02/20 08:51 [facility] [id number]) Manual Assessments Soft Tissue Assessment Soft Tissue Mobility Assessment With examination there is scleroderma present throughout B LE. THis affects the musculature of the hips, quads /hamstrings, and anterior and posterior shins and ankles. There is poor calf flexibility , stiffened and tight plantar fascia, flexor digitorum brevis, adductor halliscus, and extensor muscles of the feet. Joint Mobility Assessment Joint Mobility Assessment very poor ankle mobility, hypomobility of the ankle in all planes PT-OP-J Posture/Palpation/Skin Start: 01/28/20 11:22 Freq: Status: Active Protocol: Document 01/28/20 11:15 [facility] (Rec: 02/02/20 12:33 [facility] [id number]) Palpation Assessment Location Two Palpation Location tibialis anterior Palpation Findings Soft Tissue Tightness Palpation Details scar tissue tightness throughout the muscle belly with limited ankle ROM into DF plantar fascia Palpation Location plantar fascia Palpation Findings Soft Tissue Tightness, Tenderness Palpation Details Very little flexibility from the plantar fascia due to tightness and limited ankle ROM One Palpation Location calf musculature B Palpation Findings Soft Tissue Tightness Palpation Details scar tissue noted throughout the muscular wall of the gastrocnemius and soleus musculature due to scleroderma PT-OP-K Range of Motion Start: 01/28/20 11:22 Freq: Status: Active Protocol: Document 01/28/20 11:15 [facility] (Rec: 02/02/20 08:58 [facility] [id number]) Hip Goniometric Range of Motion Hip Right Hip ROM WFL No Testing Position Supine Flexion w/Knee Flexed 105 Straight Leg Raise 45 External Rotation 15 Left Hip ROM WFL No Testing Position Supine Flexion w/Knee Flexed 100 Straight Leg Raise 40 External Rotation 15 Ankle and Foot Goniometric Range of Motion Ankle and Foot Right Ankle/Foot ROM WFL No Testing Position Supine Dorsiflexion with Knee Flexed 5 Dorsiflexion with Knee Extended 2 Plantarflexion 5 Inversion 5 Eversion 5 Left Ankle/Foot ROM WFL No Testing Position Supine Dorsiflexion with Knee Flexed 5 Dorsiflexion with Knee Extended 2 Plantarflexion 5 Inversion 5 Eversion 5 Ankle and Foot ROM Limitations ROM Limitations Soft Tissue Tightness, Contracture Comments pt is so tight in the musculature surrounding her ankles and feet due to scleroderma that she has very poor AROM and PROM. I was able to gain af few degrees today following manual therapy work PT-OP-M Strength Start: 01/28/20 11:22 Freq: Status: Active Protocol: Document 01/28/20 11:15 [facility] (Rec: 02/02/20 12:26 [facility] [id number]) Hip Strength Hip Manual Muscle Testing Right Flexion (L2) 3+ Fair+ Extension (S1) 3 Fair Abduction 3+ Fair+ Adduction 3+ Fair+ External Rotation 3 Fair Left Flexion (L2) 3+ Fair+ Abduction 3+ Fair+ Adduction 3+ Fair+ External Rotation 3 Fair Ankle/Foot Strength Ankle and Foot Manual Muscle Testing Right Dorsiflexion (L4) 2+ Poor+ Plantarflexion (S1) 2+ Poor+ Inversion 2+ Poor+ Eversion (S1) 2+ Poor+ Left Dorsiflexion (L4) 2 Poor Plantarflexion (S1) 2+ Poor+ Inversion 2+ Poor+ Eversion (S1) 2+ Poor+ Comments Limited ankle ROM makes it very difficult for Fay to activate her muscles that control ankle movement PT-OP-Q Treatments Start: 01/28/20 11:22 Freq: Status: Active Protocol: Document 01/28/20 11:15 [facility] (Rec: 02/02/20 08:55 [facility] [id number]) Manual Therapy Treatment Soft Tissue Mobilization 1 Body Location B anterior and posterior shins /feet Mobilization Type Myofascial Release Comments MFR was performed to B anterior and posterior shins and feet, PROM was performed at the ankles and feet Manual Techniques 1 Type PROM stretches were performed at B ankles and feet, manual stretching Body Position Supine Comments Good tolerance for ROM and manual stretching PT-OP-T Assessment and Plan Start: 01/28/20 11:22 Freq: Status: Active Protocol: Document 01/28/20 11:15 [facility] (Rec: 02/02/20 12:51 [facility] [id number]) Physical Therapy Assessment Rehab Potential Rehabilitation Potential Good Evaluation Complexity Number of Personal Factors/Comorbidities 0 Number of Body Systems Impaired 1-2 Clinical Presentation at Evaluation Stable Impairments Impairments Activity Tolerance,Balance, Functional Activities, Functional Mobility,Gait,Pain, ROM,Soft Tissue Mobility, Strength Other Impairments limited ROM and flexbility of the tissue due to scleroderma Goals Four Impairment Fay is not currently engaging in a home exercise program Short Term Goal (STG) Fay is instructed in exercises and gentle stretches as we progress through therapy that she is able to do at home. STG Duration 4-8 weeks Three Impairment Pain prevents Fay from standing more than 10 min and walking > 1/4 mile Business Technology Analyst Goal (LTG) Fay is able to increase her tolerance for standing to 30 minutes and walking 1/2 mile or greater at a time LTG Duration 8 weeks Two Impairment Limited ankle ROM creating difficulty with gait and balance activities Halfway Goal (LTG) Fay demonstrates a improved in ankle ROM by at least 5 degrees for DF/PF/INV/EVR to assist with balance and gait activities LTG Duration 8 weeks One Impairment Pain rated 6/10 in B LE Short Term Goal (STG) Fay has a reduction in pain to 4-5/10 with manual therapy and ROM exercises Halfway Goal (LTG) With manual therapy techniques and a home stretching/ exercise program Fay is able to reduce her pain from 6/10 tp 2-3/10 Assessment Summary Assessment Fay presents to physical therapy today with signs and symptoms consistent with LE scleroderma. The scar tissue in her legs restricts her muscles and she has very limited ankle ROM at this point making walking difficult . Fay has been seen in PT in the past for manual therapy work for for her calf muscles and feet. She reports having a myocardial infartction in June of this past year in which she needed two stents placed. She was doing cardiac rehab and doing really well with that however that was all stopped due to the covid 19 pandemic. She states that since this time she has experienced a increased in her tightness in her LE, more difficulty with her ambulation and more fatigue/pain. She rates her pain as 6/10 in the LE. With examination her ankle and foot ROM is severely limited at this time. She has muscle contractures in her feet that limited abduction of the toes. I began with gentle MFR techniques today as well as gentle stretching and ankle PROM. Fay responded well to this. Treatment will include MFR and manual ROM / stretching techniques then working towards strengthening, balance and gait training. Physical Therapy Plan Frequency and Duration Frequency of Treatment 2x/Week Duration of Treatment 8 Plan of Care Start Date 01/28/20 Plan of Care End Date 03/24/20 Therapeutic Interventions Therapeutic Interventions Balance Training,Home Exercise Program,Manual Therapy, Neuromuscular Re-education, Patient/Caregiver Education, Self-Care/Home Management,Soft Tissue Mobilization, Therapeutic Exercises Next Visit Focus/Plan Next Note Type Treatment Note Next Visit Plan manual therapy techniques for improved flexibility of the LE musculature, begin gentle stretches for the plantar fascia and calf
--- NOTE | 2020-02-02 12:55 | PT.OPPOC ---
Physical, Occupational & Speech Therapy At [facility] Current Diagnoses Systemic sclerosis, unspecified (01/28/20) Visit Care Team Role Provider Type Timur Schwartz MD Primary Care Provider Physician Specialty: Internal Medicine Address: [address] [place] [address], [id number] Email: [email or web address] Gage Palomares DO Attending Provider Non-Staff Referring Provider Specialty: Dermatology Address: [address] [place] [address], [address] Email: Plan Of Care PT-OP-T Assessment and Plan Start: 01/28/20 11:22 Freq: Status: Active Protocol: Document 01/28/20 11:15 [facility] (Rec: 02/02/20 12:51 [facility] [id number]) Physical Therapy Assessment Rehab Potential Rehabilitation Potential Good Evaluation Complexity Number of Personal Factors/Comorbidities 0 Number of Body Systems Impaired 1-2 Clinical Presentation at Evaluation Stable Impairments Impairments Activity Tolerance,Balance, Functional Activities, Functional Mobility,Gait,Pain, ROM,Soft Tissue Mobility, Strength Other Impairments limited ROM and flexibility of the tissue due to scleroderma Goals Four Impairment Fay is not currently engaging in a home exercise program Short Term Goal (STG) Fay is instructed in exercises and gentle stretches as we progress through therapy that she is able to do at home. STG Duration 4-8 weeks Three Impairment Pain prevents Fay from standing more than 10 min and walking > 1/4 mile Care Home Goal (LTG) Fay is able to increase her tolerance for standing to 30 minutes and walking 1/2 mile or greater at a time LTG Duration 8 weeks Two Impairment Limited ankle ROM creating difficulty with gait and balance activities Lead Burner Helper Goal (LTG) Fay demonstrates a improved in ankle ROM by at least 5 degrees for DF/PF/INV/EVR to assist with balance and gait activities LTG Duration 8 weeks One Impairment Pain rated 6/10 in B LE Short Term Goal (STG) Fay has a reduction in pain to 4-5/10 with manual therapy and ROM exercises Lead Burner Helper Goal (LTG) With manual therapy techniques and a home stretching/ exercise program Fay is able to reduce her pain from 6/10 tp 2-3/10 Assessment Summary Assessment Fay presents to physical therapy today with signs and symptoms consistent with LE scleroderma. The scar tissue in her legs restricts her muscles and she has very limited ankle ROM at this point making walking difficult . Fay has been seen in PT in the past for manual therapy work for for her calf muscles and feet. She reports having a NE in June of this past year in which she needed two stents placed. She was doing cardiac rehab and doing really well with that however that was all stopped due to the covid 19 pandemic. She states that since this time she has experienced a increased in her tightness in her LE, more difficulty with her ambulation and more fatigue/pain. She rates her pain as 6/10 in the LE. With examination her ankle and foot ROM is severely limited at this time. She has muscle contractures in her feet that limited abduction of the toes. I began with gentle MFR techniques today as well as gentle stretching and ankle PROM. Fay responded well to this. Treatment will include MFR and manual ROM / stretching techniques then working towards strengthening, balance and gait training. Physical Therapy Plan Frequency and Duration Frequency of Treatment 2x/Week Duration of Treatment 8 Plan of Care Start Date 01/28/20 Plan of Care End Date 03/24/20 Therapeutic Interventions Therapeutic Interventions Balance Training,Home Exercise Program,Manual Therapy, Neuromuscular Re-education, Patient/Caregiver Education, Self-Care/Home Management,Soft Tissue Mobilization, Therapeutic Exercises Next Visit Focus/Plan Next Note Type Treatment Note Next Visit Plan manual therapy techniques for improved flexibility of the LE musculature, begin gentle stretches for the plantar fascia and calf Plan of Care Dates Plan of Care Start Date 01/28/20 Plan of Care End Date 03/24/20 Electronically Signed by: Nidhi Villanueva, PT 02/02/20 [id number] Please Sign and Return: I have reviewed this Plan of Care and certify that the skilled therapy services above are required to meet the patient?s needs. Physician Signature Date Printed Name and Credentials Clinical Instructor Signature Printed Name and Credentials
--- NOTE | 2020-02-24 15:25 | PT.OTN ---
Current Diagnoses Systemic sclerosis, unspecified (02/24/20) Physical Therapy Treatment Note PT-OP-A Visit Information Start: 01/28/20 11:22 Freq: Status: Active Protocol: Document 02/24/20 15:20 [facility] (Rec: 02/24/20 15:25 [facility] [id number]) Out-Patient Physical Therapy Visit Information Visit Information Visit Type Treatment Note Visit Start Time 13:00 Visit Stop Time 13:55 Total Visit Minutes 55 Visit Number 2 PT-OP-B Current Condition Start: 01/28/20 11:22 Freq: Status: Active Protocol: Document 01/28/20 11:26 [facility] (Rec: 01/28/20 11:40 [facility] [id number]) Current Condition History of Current Condition Onset Date Pt has a chronic hx of scleroderma, recent flare after a AL July 08 Current Complaints painful ROM LE especially the ankles/feet,painful gait, decreased balance History of Current Condition Pt has a hisotry of scleroderma that affects her LE. This makes her legs so tight she has lost ROM in her ankles. She reports pain with walking, decresased balance and poor energy. She has been seen in PT years ago for help reducing tightness in her legs. She notes that symptms increased following a myocardial infacrtion in June of 2019. Fay reports for days before her heart attack she was having a buring pain in her chest, she was taken to the ER at [facility] and then sent to [facility]. She was transfered from [facility] to [email or web address] in [place]. She had 2 stents put in and then had a GI bleed. When she returned home and for awhile ( a week or two) she felt increased energy. But then it went away. Has new symptoms of psorasis and reports her legs feel very bound. Taking Consentyx the injection for Psorasis. The scleroderma in her feet and legs feels worse. She hasn't had treatment in so many years for her legs. She is taking blood thinners. SHe had been doing cardiac rehab and doing really good but had to stop due to covid 19 pandemic. She hasn't been walking as much as she had before and she reports 15-20 minutes is her walking max. Past medical history includes hx of cancer, depression, type II diabetes, dizzyness, memory loss, neuropathy, thyroid disorder, psychological disorder Treatment Goals Patient/Caregiver Goals pt reports she would like to get to 35-40 minutes of walking, other goals include balance training, strengthening, and loosening her leg muscles. Prior Functional Status Baseline Function- ADL's Independent Baseline Function- Mobility Independent Current Functional Impairments (Reported) Functional Limitations- Mobility/Gait Because of the tightness her balance is off and she feels really off balance. Standing hurts due to the leg tightnes. She notes both her feet and legs have increased pain after 10 minutes of static standing . She uses a cane for outdoor ambulation. Functional Limitations- Recreation/ limited recreational Hobbies activities due to decreased endurance and pain in her legs with activity PT-OP-C Subjective Start: 01/28/20 11:22 Freq: Status: Active Protocol: Document 02/24/20 15:20 [facility] (Rec: 02/24/20 15:25 [facility] [id number]) OP-PT Subjective Patient Comments Patient Comments Fay reports she did well after last visit. She hasn't been walking as she feels unstable. She would like to start using the biodex here following her appointments PT-OP-F Manual Assessment Start: 01/28/20 11:22 Freq: Status: Active Protocol: Document 01/28/20 11:15 [facility] (Rec: 02/02/20 08:51 [facility] [id number]) Manual Assessments Soft Tissue Assessment Soft Tissue Mobility Assessment With examination there is scleroderma present throughout B LE. THis affects the musculature of the hips, quads /hamstrings, and anterior and posterior shins and ankles. There is poor calf flexibility , stiffened and tight plantar fascia, flexor digitorum brevis, adductor halliscus, and extensor muscles of the feet. Joint Mobility Assessment Joint Mobility Assessment very poor ankle mobility, hypomobility of the ankle in all planes PT-OP-J Posture/Palpation/Skin Start: 01/28/20 11:22 Freq: Status: Active Protocol: Document 01/28/20 11:15 [facility] (Rec: 02/02/20 12:33 [facility] [id number]) Palpation Assessment Location Two Palpation Location tibialis anterior Palpation Findings Soft Tissue Tightness Palpation Details scar tissue tightness throughout the muscle belly with limited ankle ROM into DF plantar fascia Palpation Location plantar fascia Palpation Findings Soft Tissue Tightness, Tenderness Palpation Details Very little flexibility from the plantar fascia due to tightness and limited ankle ROM One Palpation Location calf musculature B Palpation Findings Soft Tissue Tightness Palpation Details scar tissue noted throughout the muscular wall of the gastrocnemius and soleus musculature due to scleroderma PT-OP-K Range of Motion Start: 01/28/20 11:22 Freq: Status: Active Protocol: Document 01/28/20 11:15 [facility] (Rec: 02/02/20 08:58 [facility] [id number]) Hip Goniometric Range of Motion Hip Right Hip ROM WFL No Testing Position Supine Flexion w/Knee Flexed 105 Straight Leg Raise 45 External Rotation 15 Left Hip ROM WFL No Testing Position Supine Flexion w/Knee Flexed 100 Straight Leg Raise 40 External Rotation 15 Ankle and Foot Goniometric Range of Motion Ankle and Foot Right Ankle/Foot ROM WFL No Testing Position Supine Dorsiflexion with Knee Flexed 5 Dorsiflexion with Knee Extended 2 Plantarflexion 5 Inversion 5 Eversion 5 Left Ankle/Foot ROM WFL No Testing Position Supine Dorsiflexion with Knee Flexed 5 Dorsiflexion with Knee Extended 2 Plantarflexion 5 Inversion 5 Eversion 5 Ankle and Foot ROM Limitations ROM Limitations Soft Tissue Tightness, Contracture Comments pt is so tight in the musculature surrounding her ankles and feet due to scleroderma that she has very poor AROM and PROM. I was able to gain af few degrees today following manual therapy work PT-OP-M Strength Start: 01/28/20 11:22 Freq: Status: Active Protocol: Document 01/28/20 11:15 [facility] (Rec: 02/02/20 12:26 [facility] [id number]) Hip Strength Hip Manual Muscle Testing Right Flexion (L2) 3+ Fair+ Extension (S1) 3 Fair Abduction 3+ Fair+ Adduction 3+ Fair+ External Rotation 3 Fair Left Flexion (L2) 3+ Fair+ Abduction 3+ Fair+ Adduction 3+ Fair+ External Rotation 3 Fair Ankle/Foot Strength Ankle and Foot Manual Muscle Testing Right Dorsiflexion (L4) 2+ Poor+ Plantarflexion (S1) 2+ Poor+ Inversion 2+ Poor+ Eversion (S1) 2+ Poor+ Left Dorsiflexion (L4) 2 Poor Plantarflexion (S1) 2+ Poor+ Inversion 2+ Poor+ Eversion (S1) 2+ Poor+ Comments Limited ankle ROM makes it very difficult for Fay to activate her muscles that control ankle movement PT-OP-Q Treatments Start: 01/28/20 11:22 Freq: Status: Active Protocol: Document 02/24/20 15:20 [facility] (Rec: 02/24/20 15:25 [facility] [id number]) Manual Therapy Treatment Soft Tissue Mobilization 1 Body Location B anterior and posterior shins /feet Mobilization Type Myofascial Release Comments MFR was performed to B anterior and posterior shins and feet, PROM was performed at the ankles and feet Manual Techniques 1 Type PROM stretches were performed at B ankles and feet, manual stretching Body Position Supine Comments Good tolerance for ROM and manual stretching PT-OP-R Modalities Start: 02/24/20 15:25 Freq: Status: Active Protocol: Document 02/24/20 15:25 [facility] (Rec: 02/24/20 15:25 [facility] [id number]) Hot Pack/Cold Pack Treatment Hot Pack Location around B calf musculature Patient Position Supine Patient Tolerance Good PT-OP-T Assessment and Plan Start: 01/28/20 11:22 Freq: Status: Active Protocol: Document 02/24/20 15:20 [facility] (Rec: 02/24/20 15:25 [facility] [id number]) Physical Therapy Assessment Assessment Summary Assessment I worked today on ankle ROM and calf stretching, Fay notes improved feeling of circulation following treatment. We talked about using a tennis ball under her arch to roll her foot on to help loosen up the plantar fascia. Physical Therapy Plan Frequency and Duration Frequency of Treatment 2x/Week Duration of Treatment 8 Plan of Care Start Date 01/28/20 Plan of Care End Date 03/24/20 Therapeutic Interventions Therapeutic Interventions Balance Training,Home Exercise Program,Manual Therapy, Neuromuscular Re-education, Patient/Caregiver Education, Self-Care/Home Management,Soft Tissue Mobilization, Therapeutic Exercises Next Visit Focus/Plan Next Note Type Treatment Note Next Visit Plan Fay would like to use the biodex at the end of treatment next visit
--- NOTE | 2020-03-01 17:32 | PT.OTN ---
Current Diagnoses Systemic sclerosis, unspecified (03/01/20) Physical Therapy Treatment Note PT-OP-A Visit Information Start: 01/28/20 11:22 Freq: Status: Active Protocol: Document 03/01/20 17:27 [facility] (Rec: 03/01/20 17:32 [facility] [id number]) Out-Patient Physical Therapy Visit Information Visit Information Visit Type Treatment Note Visit Start Time 15:15 Visit Stop Time 16:10 Total Visit Minutes 55 Visit Number 3 PT-OP-B Current Condition Start: 01/28/20 11:22 Freq: Status: Active Protocol: Document 01/28/20 11:26 [facility] (Rec: 01/28/20 11:40 [facility] [id number]) Current Condition History of Current Condition Onset Date Pt has a chronic hx of scleroderma, recent flare after a [place] July 08 Current Complaints painful ROM LE especially the ankles/feet,painful gait, decreased balance History of Current Condition Pt has a hisotry of scleroderma that affects her LE. This makes her legs so tight she has lost ROM in her ankles. She reports pain with walking, decresased balance and poor energy. She has been seen in PT years ago for help reducing tightness in her legs. She notes that symptms increased following a myocardial infacrtion in June of 2019. Fay reports for days before her heart attack she was having a buring pain in her chest, she was taken to the ER at [facility] and then sent to [facility]. She was transfered from [facility] to [facility] in [place]. She had 2 stents put in and then had a GI bleed. When she returned home and for awhile ( a week or two) she felt increased energy. But then it went away. Has new symptoms of psorasis and reports her legs feel very bound. Taking Consentyx the injection for Psorasis. The scleroderma in her feet and legs feels worse. She hasn't had treatment in so many years for her legs. She is taking blood thinners. SHe had been doing cardiac rehab and doing really good but had to stop due to covid 19 pandemic. She hasn't been walking as much as she had before and she reports 15-20 minutes is her walking max. Past medical history includes hx of cancer, depression, type II diabetes, dizzyness, memory loss, neuropathy, thyroid disorder, psychological disorder Treatment Goals Patient/Caregiver Goals pt reports she would like to get to 35-40 minutes of walking, other goals include balance training, strengthening, and loosening her leg muscles. Prior Functional Status Baseline Function- ADL's Independent Baseline Function- Mobility Independent Current Functional Impairments (Reported) Functional Limitations- Mobility/Gait Because of the tightness her balance is off and she feels really off balance. Standing hurts due to the leg tightnes. She notes both her feet and legs have increased pain after 10 minutes of static standing . She uses a cane for outdoor ambulation. Functional Limitations- Recreation/ limited recreational Hobbies activities due to decreased endurance and pain in her legs with activity PT-OP-C Subjective Start: 01/28/20 11:22 Freq: Status: Active Protocol: Document 03/01/20 17:27 [facility] (Rec: 03/01/20 17:32 [facility] [id number]) OP-PT Subjective Patient Comments Patient Comments Fay reports she feel like she has more energy and went out blackberry picking. She also gets to return to cardiac rehab PT-OP-F Manual Assessment Start: 01/28/20 11:22 Freq: Status: Active Protocol: Document 01/28/20 11:15 [facility] (Rec: 02/02/20 08:51 [facility] [id number]) Manual Assessments Soft Tissue Assessment Soft Tissue Mobility Assessment With examination there is scleroderma present throughout B LE. THis affects the musculature of the hips, quads /hamstrings, and anterior and posterior shins and ankles. There is poor calf flexibility , stiffened and tight plantar fascia, flexor digitorum brevis, adductor halliscus, and extensor muscles of the feet. Joint Mobility Assessment Joint Mobility Assessment very poor ankle mobility, hypomobility of the ankle in all planes PT-OP-J Posture/Palpation/Skin Start: 01/28/20 11:22 Freq: Status: Active Protocol: Document 01/28/20 11:15 [facility] (Rec: 02/02/20 12:33 [facility] [id number]) Palpation Assessment Location Two Palpation Location tibialis anterior Palpation Findings Soft Tissue Tightness Palpation Details scar tissue tightness throughout the muscle belly with limited ankle ROM into DF plantar fascia Palpation Location plantar fascia Palpation Findings Soft Tissue Tightness, Tenderness Palpation Details Very little flexibility from the plantar fascia due to tightness and limited ankle ROM One Palpation Location calf musculature B Palpation Findings Soft Tissue Tightness Palpation Details scar tissue noted throughout the muscular wall of the gastrocnemius and soleus musculature due to scleroderma PT-OP-K Range of Motion Start: 01/28/20 11:22 Freq: Status: Active Protocol: Document 01/28/20 11:15 [facility] (Rec: 02/02/20 08:58 [facility] [id number]) Hip Goniometric Range of Motion Hip Right Hip ROM WFL No Testing Position Supine Flexion w/Knee Flexed 105 Straight Leg Raise 45 External Rotation 15 Left Hip ROM WFL No Testing Position Supine Flexion w/Knee Flexed 100 Straight Leg Raise 40 External Rotation 15 Ankle and Foot Goniometric Range of Motion Ankle and Foot Right Ankle/Foot ROM WFL No Testing Position Supine Dorsiflexion with Knee Flexed 5 Dorsiflexion with Knee Extended 2 Plantarflexion 5 Inversion 5 Eversion 5 Left Ankle/Foot ROM WFL No Testing Position Supine Dorsiflexion with Knee Flexed 5 Dorsiflexion with Knee Extended 2 Plantarflexion 5 Inversion 5 Eversion 5 Ankle and Foot ROM Limitations ROM Limitations Soft Tissue Tightness, Contracture Comments pt is so tight in the musculature surrounding her ankles and feet due to scleroderma that she has very poor AROM and PROM. I was able to gain af few degrees today following manual therapy work PT-OP-M Strength Start: 01/28/20 11:22 Freq: Status: Active Protocol: Document 01/28/20 11:15 [facility] (Rec: 02/02/20 12:26 [facility] [id number]) Hip Strength Hip Manual Muscle Testing Right Flexion (L2) 3+ Fair+ Extension (S1) 3 Fair Abduction 3+ Fair+ Adduction 3+ Fair+ External Rotation 3 Fair Left Flexion (L2) 3+ Fair+ Abduction 3+ Fair+ Adduction 3+ Fair+ External Rotation 3 Fair Ankle/Foot Strength Ankle and Foot Manual Muscle Testing Right Dorsiflexion (L4) 2+ Poor+ Plantarflexion (S1) 2+ Poor+ Inversion 2+ Poor+ Eversion (S1) 2+ Poor+ Left Dorsiflexion (L4) 2 Poor Plantarflexion (S1) 2+ Poor+ Inversion 2+ Poor+ Eversion (S1) 2+ Poor+ Comments Limited ankle ROM makes it very difficult for Fay to activate her muscles that control ankle movement PT-OP-Q Treatments Start: 01/28/20 11:22 Freq: Status: Active Protocol: Document 03/01/20 17:27 [facility] (Rec: 03/01/20 17:32 [facility] [id number]) Cardio Equipment Recumbent Elliptical (Biodex) Duration (Minutes) 8 Resistance level 2 Manual Therapy Treatment Soft Tissue Mobilization 1 Body Location B anterior and posterior shins /feet Mobilization Type Myofascial Release Comments MFR was performed to B anterior and posterior shins and feet, PROM was performed at the ankles and feet Manual Techniques 1 Type PROM stretches were performed at B ankles and feet, manual stretching Body Position Supine Comments Good tolerance for ROM and manual stretching PT-OP-R Modalities Start: 02/24/20 15:25 Freq: Status: Active Protocol: Document 02/24/20 15:25 [facility] (Rec: 02/24/20 15:25 [facility] [id number]) Hot Pack/Cold Pack Treatment Hot Pack Location around B calf musculature Patient Position Supine Patient Tolerance Good PT-OP-T Assessment and Plan Start: 01/28/20 11:22 Freq: Status: Active Protocol: Document 03/01/20 17:27 [facility] (Rec: 03/01/20 17:32 [facility] [id number]) Physical Therapy Assessment Assessment Summary Assessment pt felt good relief today with treatment and wanted to start the biodex today. SHe is feeling more energy. She will resume cardiac rehab Physical Therapy Plan Frequency and Duration Frequency of Treatment 2x/Week Duration of Treatment 8 Plan of Care Start Date 01/28/20 Plan of Care End Date 03/24/20
--- NOTE | 2020-03-03 17:28 | PT.OTN ---
Current Diagnoses Systemic sclerosis, unspecified (03/03/20) Physical Therapy Treatment Note PT-OP-A Visit Information Start: 01/28/20 11:22 Freq: Status: Active Protocol: Document 03/03/20 17:24 [facility] (Rec: 03/03/20 17:28 [facility] [id number]) Out-Patient Physical Therapy Visit Information Visit Information Visit Type Treatment Note Visit Start Time 15:15 Visit Stop Time 16:10 Total Visit Minutes 55 Visit Number 4 PT-OP-B Current Condition Start: 01/28/20 11:22 Freq: Status: Active Protocol: Document 01/28/20 11:26 [facility] (Rec: 01/28/20 11:40 [facility] [id number]) Current Condition History of Current Condition Onset Date Pt has a chronic hx of scleroderma, recent flare after a RI July 08 Current Complaints painful ROM LE especially the ankles/feet,painful gait, decreased balance History of Current Condition Pt has a hisotry of scleroderma that affects her LE. This makes her legs so tight she has lost ROM in her ankles. She reports pain with walking, decresased balance and poor energy. She has been seen in PT years ago for help reducing tightness in her legs. She notes that symptms increased following a myocardial infacrtion in June of 2019. Fay reports for days before her heart attack she was having a buring pain in her chest, she was taken to the ER at [facility] and then sent to [facility]. She was transfered from [facility] to [facility] in [place]. She had 2 stents put in and then had a GI bleed. When she returned home and for awhile ( a week or two) she felt increased energy. But then it went away. Has new symptoms of psorasis and reports her legs feel very bound. Taking Consentyx the injection for Psorasis. The scleroderma in her feet and legs feels worse. She hasn't had treatment in so many years for her legs. She is taking blood thinners. SHe had been doing cardiac rehab and doing really good but had to stop due to covid 19 pandemic. She hasn't been walking as much as she had before and she reports 15-20 minutes is her walking max. Past medical history includes hx of cancer, depression, type II diabetes, dizzyness, memory loss, neuropathy, thyroid disorder, psychological disorder Treatment Goals Patient/Caregiver Goals pt reports she would like to get to 35-40 minutes of walking, other goals include balance training, strengthening, and loosening her leg muscles. Prior Functional Status Baseline Function- ADL's Independent Baseline Function- Mobility Independent Current Functional Impairments (Reported) Functional Limitations- Mobility/Gait Because of the tightness her balance is off and she feels really off balance. Standing hurts due to the leg tightnes. She notes both her feet and legs have increased pain after 10 minutes of static standing . She uses a cane for outdoor ambulation. Functional Limitations- Recreation/ limited recreational Hobbies activities due to decreased endurance and pain in her legs with activity PT-OP-C Subjective Start: 01/28/20 11:22 Freq: Status: Active Protocol: Document 03/03/20 17:24 [facility] (Rec: 03/03/20 17:28 [facility] [id number]) OP-PT Subjective Patient Comments Patient Comments Fay reports she has been rolling her feet on the ball. She hasn't started cardiac rehab yet but is working on getting that set up. PT-OP-F Manual Assessment Start: 01/28/20 11:22 Freq: Status: Active Protocol: Document 01/28/20 11:15 [facility] (Rec: 02/02/20 08:51 [facility] [id number]) Manual Assessments Soft Tissue Assessment Soft Tissue Mobility Assessment With examination there is scleroderma present throughout B LE. THis affects the musculature of the hips, quads /hamstrings, and anterior and posterior shins and ankles. There is poor calf flexibility , stiffened and tight plantar fascia, flexor digitorum brevis, adductor halliscus, and extensor muscles of the feet. Joint Mobility Assessment Joint Mobility Assessment very poor ankle mobility, hypomobility of the ankle in all planes PT-OP-J Posture/Palpation/Skin Start: 01/28/20 11:22 Freq: Status: Active Protocol: Document 01/28/20 11:15 [facility] (Rec: 02/02/20 12:33 [facility] [id number]) Palpation Assessment Location Two Palpation Location tibialis anterior Palpation Findings Soft Tissue Tightness Palpation Details scar tissue tightness throughout the muscle belly with limited ankle ROM into DF plantar fascia Palpation Location plantar fascia Palpation Findings Soft Tissue Tightness, Tenderness Palpation Details Very little flexibility from the plantar fascia due to tightness and limited ankle ROM One Palpation Location calf musculature B Palpation Findings Soft Tissue Tightness Palpation Details scar tissue noted throughout the muscular wall of the gastrocnemius and soleus musculature due to scleroderma PT-OP-K Range of Motion Start: 01/28/20 11:22 Freq: Status: Active Protocol: Document 01/28/20 11:15 [facility] (Rec: 02/02/20 08:58 [facility] [id number]) Hip Goniometric Range of Motion Hip Right Hip ROM WFL No Testing Position Supine Flexion w/Knee Flexed 105 Straight Leg Raise 45 External Rotation 15 Left Hip ROM WFL No Testing Position Supine Flexion w/Knee Flexed 100 Straight Leg Raise 40 External Rotation 15 Ankle and Foot Goniometric Range of Motion Ankle and Foot Right Ankle/Foot ROM WFL No Testing Position Supine Dorsiflexion with Knee Flexed 5 Dorsiflexion with Knee Extended 2 Plantarflexion 5 Inversion 5 Eversion 5 Left Ankle/Foot ROM WFL No Testing Position Supine Dorsiflexion with Knee Flexed 5 Dorsiflexion with Knee Extended 2 Plantarflexion 5 Inversion 5 Eversion 5 Ankle and Foot ROM Limitations ROM Limitations Soft Tissue Tightness, Contracture Comments pt is so tight in the musculature surrounding her ankles and feet due to scleroderma that she has very poor AROM and PROM. I was able to gain af few degrees today following manual therapy work PT-OP-M Strength Start: 01/28/20 11:22 Freq: Status: Active Protocol: Document 01/28/20 11:15 [facility] (Rec: 02/02/20 12:26 [facility] [id number]) Hip Strength Hip Manual Muscle Testing Right Flexion (L2) 3+ Fair+ Extension (S1) 3 Fair Abduction 3+ Fair+ Adduction 3+ Fair+ External Rotation 3 Fair Left Flexion (L2) 3+ Fair+ Abduction 3+ Fair+ Adduction 3+ Fair+ External Rotation 3 Fair Ankle/Foot Strength Ankle and Foot Manual Muscle Testing Right Dorsiflexion (L4) 2+ Poor+ Plantarflexion (S1) 2+ Poor+ Inversion 2+ Poor+ Eversion (S1) 2+ Poor+ Left Dorsiflexion (L4) 2 Poor Plantarflexion (S1) 2+ Poor+ Inversion 2+ Poor+ Eversion (S1) 2+ Poor+ Comments Limited ankle ROM makes it very difficult for Fay to activate her muscles that control ankle movement PT-OP-Q Treatments Start: 01/28/20 11:22 Freq: Status: Active Protocol: Document 03/03/20 17:24 [facility] (Rec: 03/03/20 17:28 [facility] [id number]) Manual Therapy Treatment Soft Tissue Mobilization 1 Body Location B anterior and posterior shins /feet Mobilization Type Myofascial Release Comments MFR was performed to B anterior and posterior shins and feet, PROM was performed at the ankles and feet Manual Techniques 1 Type PROM stretches were performed at B ankles and feet, manual stretching Body Position Supine Comments Good tolerance for ROM and manual stretching PT-OP-R Modalities Start: 02/24/20 15:25 Freq: Status: Active Protocol: Document 02/24/20 15:25 [facility] (Rec: 02/24/20 15:25 [facility] [id number]) Hot Pack/Cold Pack Treatment Hot Pack Location around B calf musculature Patient Position Supine Patient Tolerance Good PT-OP-T Assessment and Plan Start: 01/28/20 11:22 Freq: Status: Active Protocol: Document 03/03/20 17:24 [facility] (Rec: 03/03/20 17:28 [facility] [id number]) Physical Therapy Assessment Assessment Summary Assessment Pt demonstrating improved ankle ROM especially following treatment. She wished to walk on the treadmill today following treatment Physical Therapy Plan Frequency and Duration Frequency of Treatment 2x/Week Duration of Treatment 8 Plan of Care Start Date 01/28/20 Plan of Care End Date 03/24/20 Therapeutic Interventions Therapeutic Interventions Balance Training,Home Exercise Program,Manual Therapy, Neuromuscular Re-education, Patient/Caregiver Education, Self-Care/Home Management,Soft Tissue Mobilization, Therapeutic Exercises Next Visit Focus/Plan Next Note Type Treatment Note Next Visit Plan Pt tolerated the treadmill well today at the end of treatment.
--- NOTE | 2020-03-10 12:26 | PT.OTN ---
Current Diagnoses Systemic sclerosis, unspecified (03/10/20) Physical Therapy Treatment Note PT-OP-A Visit Information Start: 01/28/20 11:22 Freq: Status: Active Protocol: Document 03/10/20 12:22 [facility] (Rec: 03/10/20 12:26 [facility] [id number]) Out-Patient Physical Therapy Visit Information Visit Information Visit Type Treatment Note Visit Start Time 11:15 Visit Stop Time 12:00 Total Visit Minutes 45 Visit Number 5 PT-OP-B Current Condition Start: 01/28/20 11:22 Freq: Status: Active Protocol: Document 01/28/20 11:26 [facility] (Rec: 01/28/20 11:40 [facility] [id number]) Current Condition History of Current Condition Onset Date Pt has a chronic hx of scleroderma, recent flare after a [place] July 08 Current Complaints painful ROM LE especially the ankles/feet,painful gait, decreased balance History of Current Condition Pt has a hisotry of scleroderma that affects her LE. This makes her legs so tight she has lost ROM in her ankles. She reports pain with walking, decresased balance and poor energy. She has been seen in PT years ago for help reducing tightness in her legs. She notes that symptms increased following a myocardial infacrtion in June of 2019. Fay reports for days before her heart attack she was having a buring pain in her chest, she was taken to the ER at [facility] and then sent to [facility]. She was transfered from [facility] to [facility] in [place]. She had 2 stents put in and then had a GI bleed. When she returned home and for awhile ( a week or two) she felt increased energy. But then it went away. Has new symptoms of psorasis and reports her legs feel very bound. Taking Consentyx the injection for Psorasis. The scleroderma in her feet and legs feels worse. She hasn't had treatment in so many years for her legs. She is taking blood thinners. SHe had been doing cardiac rehab and doing really good but had to stop due to covid 19 pandemic. She hasn't been walking as much as she had before and she reports 15-20 minutes is her walking max. Past medical history includes hx of cancer, depression, type II diabetes, dizzyness, memory loss, neuropathy, thyroid disorder, psychological disorder Treatment Goals Patient/Caregiver Goals pt reports she would like to get to 35-40 minutes of walking, other goals include balance training, strengthening, and loosening her leg muscles. Prior Functional Status Baseline Function- ADL's Independent Baseline Function- Mobility Independent Current Functional Impairments (Reported) Functional Limitations- Mobility/Gait Because of the tightness her balance is off and she feels really off balance. Standing hurts due to the leg tightnes. She notes both her feet and legs have increased pain after 10 minutes of static standing . She uses a cane for outdoor ambulation. Functional Limitations- Recreation/ limited recreational Hobbies activities due to decreased endurance and pain in her legs with activity PT-OP-C Subjective Start: 01/28/20 11:22 Freq: Status: Active Protocol: Document 03/10/20 12:22 [facility] (Rec: 03/10/20 12:26 [facility] [id number]) OP-PT Subjective Patient Comments Patient Comments Fay reports she starts cardiac rehab next week. Sat, sat, . She is hoping to schedule her PT visits for following PT-OP-F Manual Assessment Start: 01/28/20 11:22 Freq: Status: Active Protocol: Document 01/28/20 11:15 [facility] (Rec: 02/02/20 08:51 [facility] [id number]) Manual Assessments Soft Tissue Assessment Soft Tissue Mobility Assessment With examination there is scleroderma present throughout B LE. THis affects the musculature of the hips, quads /hamstrings, and anterior and posterior shins and ankles. There is poor calf flexibility , stiffened and tight plantar fascia, flexor digitorum brevis, adductor halliscus, and extensor muscles of the feet. Joint Mobility Assessment Joint Mobility Assessment very poor ankle mobility, hypomobility of the ankle in all planes PT-OP-J Posture/Palpation/Skin Start: 01/28/20 11:22 Freq: Status: Active Protocol: Document 01/28/20 11:15 [facility] (Rec: 02/02/20 12:33 [facility] [id number]) Palpation Assessment Location Two Palpation Location tibialis anterior Palpation Findings Soft Tissue Tightness Palpation Details scar tissue tightness throughout the muscle belly with limited ankle ROM into DF plantar fascia Palpation Location plantar fascia Palpation Findings Soft Tissue Tightness, Tenderness Palpation Details Very little flexibility from the plantar fascia due to tightness and limited ankle ROM One Palpation Location calf musculature B Palpation Findings Soft Tissue Tightness Palpation Details scar tissue noted throughout the muscular wall of the gastrocnemius and soleus musculature due to scleroderma PT-OP-K Range of Motion Start: 01/28/20 11:22 Freq: Status: Active Protocol: Document 01/28/20 11:15 [facility] (Rec: 02/02/20 08:58 [facility] [id number]) Hip Goniometric Range of Motion Hip Right Hip ROM WFL No Testing Position Supine Flexion w/Knee Flexed 105 Straight Leg Raise 45 External Rotation 15 Left Hip ROM WFL No Testing Position Supine Flexion w/Knee Flexed 100 Straight Leg Raise 40 External Rotation 15 Ankle and Foot Goniometric Range of Motion Ankle and Foot Right Ankle/Foot ROM WFL No Testing Position Supine Dorsiflexion with Knee Flexed 5 Dorsiflexion with Knee Extended 2 Plantarflexion 5 Inversion 5 Eversion 5 Left Ankle/Foot ROM WFL No Testing Position Supine Dorsiflexion with Knee Flexed 5 Dorsiflexion with Knee Extended 2 Plantarflexion 5 Inversion 5 Eversion 5 Ankle and Foot ROM Limitations ROM Limitations Soft Tissue Tightness, Contracture Comments pt is so tight in the musculature surrounding her ankles and feet due to scleroderma that she has very poor AROM and PROM. I was able to gain af few degrees today following manual therapy work PT-OP-M Strength Start: 01/28/20 11:22 Freq: Status: Active Protocol: Document 01/28/20 11:15 [facility] (Rec: 02/02/20 12:26 [facility] [id number]) Hip Strength Hip Manual Muscle Testing Right Flexion (L2) 3+ Fair+ Extension (S1) 3 Fair Abduction 3+ Fair+ Adduction 3+ Fair+ External Rotation 3 Fair Left Flexion (L2) 3+ Fair+ Abduction 3+ Fair+ Adduction 3+ Fair+ External Rotation 3 Fair Ankle/Foot Strength Ankle and Foot Manual Muscle Testing Right Dorsiflexion (L4) 2+ Poor+ Plantarflexion (S1) 2+ Poor+ Inversion 2+ Poor+ Eversion (S1) 2+ Poor+ Left Dorsiflexion (L4) 2 Poor Plantarflexion (S1) 2+ Poor+ Inversion 2+ Poor+ Eversion (S1) 2+ Poor+ Comments Limited ankle ROM makes it very difficult for Fay to activate her muscles that control ankle movement PT-OP-Q Treatments Start: 01/28/20 11:22 Freq: Status: Active Protocol: Document 03/10/20 12:22 [facility] (Rec: 03/10/20 12:26 [facility] [id number]) Manual Therapy Treatment Soft Tissue Mobilization 1 Body Location B anterior and posterior shins /feet Mobilization Type Myofascial Release Comments MFR was performed to B anterior and posterior shins and feet, PROM was performed at the ankles and feet Manual Techniques 1 Type PROM stretches were performed at B ankles and feet, manual stretching Body Position Supine Comments Good tolerance for ROM and manual stretching PT-OP-R Modalities Start: 02/24/20 15:25 Freq: Status: Active Protocol: Document 02/24/20 15:25 [facility] (Rec: 02/24/20 15:25 [facility] [id number]) Hot Pack/Cold Pack Treatment Hot Pack Location around B calf musculature Patient Position Supine Patient Tolerance Good PT-OP-T Assessment and Plan Start: 01/28/20 11:22 Freq: Status: Active Protocol: Document 03/10/20 12:22 [facility] (Rec: 03/10/20 12:26 [facility] [id number]) Physical Therapy Assessment Assessment Summary Assessment IMproved gait following treatment, pt ready to begin cardiac rehab and will be exercising 3 times per week Physical Therapy Plan Frequency and Duration Frequency of Treatment 2x/Week Duration of Treatment 8 Plan of Care Start Date 01/28/20 Plan of Care End Date 03/24/20 Next Visit Focus/Plan Next Note Type Treatment Note Next Visit Plan assess pts fatigue level next week as she will be coming in following cardiac rehab
--- NOTE | 2020-03-15 14:54 | PT.OTN ---
Current Diagnoses Systemic sclerosis, unspecified (03/15/20) Physical Therapy Treatment Note PT-OP-A Visit Information Start: 01/28/20 11:22 Freq: Status: Active Protocol: Document 03/15/20 14:48 [facility] (Rec: 03/15/20 14:53 [facility] [id number]) Out-Patient Physical Therapy Visit Information Visit Information Visit Type Treatment Note Visit Start Time 13:45 Visit Stop Time 14:40 Total Visit Minutes 55 Visit Number 6 PT-OP-B Current Condition Start: 01/28/20 11:22 Freq: Status: Active Protocol: Document 01/28/20 11:26 [facility] (Rec: 01/28/20 11:40 [facility] [id number]) Current Condition History of Current Condition Onset Date Pt has a chronic hx of scleroderma, recent flare after a DE July 08 Current Complaints painful ROM LE especially the ankles/feet,painful gait, decreased balance History of Current Condition Pt has a hisotry of scleroderma that affects her LE. This makes her legs so tight she has lost ROM in her ankles. She reports pain with walking, decresased balance and poor energy. She has been seen in PT years ago for help reducing tightness in her legs. She notes that symptms increased following a myocardial infacrtion in June of 2019. Fay reports for days before her heart attack she was having a buring pain in her chest, she was taken to the ER at [facility] and then sent to [facility] She was transfered from [facility] to [facility] in [place]. She had 2 stents put in and then had a GI bleed. When she returned home and for awhile ( a week or two) she felt increased energy. But then it went away. Has new symptoms of psorasis and reports her legs feel very bound. Taking Consentyx the injection for Psorasis. The scleroderma in her feet and legs feels worse. She hasn't had treatment in so many years for her legs. She is taking blood thinners. SHe had been doing cardiac rehab and doing really good but had to stop due to covid 19 pandemic. She hasn't been walking as much as she had before and she reports 15-20 minutes is her walking max. Past medical history includes hx of cancer, depression, type II diabetes, dizzyness, memory loss, neuropathy, thyroid disorder, psychological disorder Treatment Goals Patient/Caregiver Goals pt reports she would like to get to 35-40 minutes of walking, other goals include balance training, strengthening, and loosening her leg muscles. Prior Functional Status Baseline Function- ADL's Independent Baseline Function- Mobility Independent Current Functional Impairments (Reported) Functional Limitations- Mobility/Gait Because of the tightness her balance is off and she feels really off balance. Standing hurts due to the leg tightnes. She notes both her feet and legs have increased pain after 10 minutes of static standing . She uses a cane for outdoor ambulation. Functional Limitations- Recreation/ limited recreational Hobbies activities due to decreased endurance and pain in her legs with activity PT-OP-C Subjective Start: 01/28/20 11:22 Freq: Status: Active Protocol: Document 03/15/20 14:48 [facility] (Rec: 03/15/20 14:53 [facility] [email or web address]) OP-PT Subjective Patient Comments Patient Comments Fay did her first cardiac rehab session and it went really well PT-OP-F Manual Assessment Start: 01/28/20 11:22 Freq: Status: Active Protocol: Document 01/28/20 11:15 [facility] (Rec: 02/02/20 08:51 [facility] [id number]) Manual Assessments Soft Tissue Assessment Soft Tissue Mobility Assessment With examination there is scleroderma present throughout B LE. THis affects the musculature of the hips, quads /hamstrings, and anterior and posterior shins and ankles. There is poor calf flexibility , stiffened and tight plantar fascia, flexor digitorum brevis, adductor halliscus, and extensor muscles of the feet. Joint Mobility Assessment Joint Mobility Assessment very poor ankle mobility, hypomobility of the ankle in all planes PT-OP-J Posture/Palpation/Skin Start: 01/28/20 11:22 Freq: Status: Active Protocol: Document 01/28/20 11:15 [facility] (Rec: 02/02/20 12:33 [facility] [id number]) Palpation Assessment Location Two Palpation Location tibialis anterior Palpation Findings Soft Tissue Tightness Palpation Details scar tissue tightness throughout the muscle belly with limited ankle ROM into DF plantar fascia Palpation Location plantar fascia Palpation Findings Soft Tissue Tightness, Tenderness Palpation Details Very little flexibility from the plantar fascia due to tightness and limited ankle ROM One Palpation Location calf musculature B Palpation Findings Soft Tissue Tightness Palpation Details scar tissue noted throughout the muscular wall of the gastrocnemius and soleus musculature due to scleroderma PT-OP-K Range of Motion Start: 01/28/20 11:22 Freq: Status: Active Protocol: Document 01/28/20 11:15 [facility] (Rec: 02/02/20 08:58 [facility] [id number]) Hip Goniometric Range of Motion Hip Right Hip ROM WFL No Testing Position Supine Flexion w/Knee Flexed 105 Straight Leg Raise 45 External Rotation 15 Left Hip ROM WFL No Testing Position Supine Flexion w/Knee Flexed 100 Straight Leg Raise 40 External Rotation 15 Ankle and Foot Goniometric Range of Motion Ankle and Foot Right Ankle/Foot ROM WFL No Testing Position Supine Dorsiflexion with Knee Flexed 5 Dorsiflexion with Knee Extended 2 Plantarflexion 5 Inversion 5 Eversion 5 Left Ankle/Foot ROM WFL No Testing Position Supine Dorsiflexion with Knee Flexed 5 Dorsiflexion with Knee Extended 2 Plantarflexion 5 Inversion 5 Eversion 5 Ankle and Foot ROM Limitations ROM Limitations Soft Tissue Tightness, Contracture Comments pt is so tight in the musculature surrounding her ankles and feet due to scleroderma that she has very poor AROM and PROM. I was able to gain af few degrees today following manual therapy work PT-OP-M Strength Start: 01/28/20 11:22 Freq: Status: Active Protocol: Document 01/28/20 11:15 [facility] (Rec: 02/02/20 12:26 [facility] [id number]) Hip Strength Hip Manual Muscle Testing Right Flexion (L2) 3+ Fair+ Extension (S1) 3 Fair Abduction 3+ Fair+ Adduction 3+ Fair+ External Rotation 3 Fair Left Flexion (L2) 3+ Fair+ Abduction 3+ Fair+ Adduction 3+ Fair+ External Rotation 3 Fair Ankle/Foot Strength Ankle and Foot Manual Muscle Testing Right Dorsiflexion (L4) 2+ Poor+ Plantarflexion (S1) 2+ Poor+ Inversion 2+ Poor+ Eversion (S1) 2+ Poor+ Left Dorsiflexion (L4) 2 Poor Plantarflexion (S1) 2+ Poor+ Inversion 2+ Poor+ Eversion (S1) 2+ Poor+ Comments Limited ankle ROM makes it very difficult for Fay to activate her muscles that control ankle movement PT-OP-Q Treatments Start: 01/28/20 11:22 Freq: Status: Active Protocol: Document 03/15/20 14:48 [facility] (Rec: 03/15/20 14:53 [facility] [id number]) Cardio Equipment Treadmill Duration (Minutes) 10 Speed .9 Manual Therapy Treatment Soft Tissue Mobilization 1 Body Location B anterior and posterior shins /feet Mobilization Type Myofascial Release Comments MFR was performed to B anterior and posterior shins and feet, PROM was performed at the ankles and feet Manual Techniques 1 Type PROM stretches were performed at B ankles and feet, manual stretching Body Position Supine Comments Good tolerance for ROM and manual stretching PT-OP-R Modalities Start: 02/24/20 15:25 Freq: Status: Active Protocol: Document 02/24/20 15:25 [facility] (Rec: 02/24/20 15:25 [facility] [id number]) Hot Pack/Cold Pack Treatment Hot Pack Location around B calf musculature Patient Position Supine Patient Tolerance Good PT-OP-T Assessment and Plan Start: 01/28/20 11:22 Freq: Status: Active Protocol: Document 03/15/20 14:48 [facility] (Rec: 03/15/20 14:53 [facility] [id number]) Physical Therapy Assessment Assessment Summary Assessment pt still wanted to do the treadmill today following her treatment. She is demonstrating improvement with her endurance for walking.
--- NOTE | 2020-03-17 16:49 | PT.OTN ---
Current Diagnoses Systemic sclerosis, unspecified (03/17/20) Physical Therapy Treatment Note PT-OP-A Visit Information Start: 01/28/20 11:22 Freq: Status: Active Protocol: Document 03/17/20 16:43 [facility] (Rec: 03/17/20 16:49 [facility] [id number]) Out-Patient Physical Therapy Visit Information Visit Information Visit Type Treatment Note Visit Start Time 14:30 Visit Stop Time 15:15 Total Visit Minutes 45 Visit Number 7 PT-OP-B Current Condition Start: 01/28/20 11:22 Freq: Status: Active Protocol: Document 01/28/20 11:26 [facility] (Rec: 01/28/20 11:40 [facility] [id number]) Current Condition History of Current Condition Onset Date Pt has a chronic hx of scleroderma, recent flare after a [place] July 08 Current Complaints painful ROM LE especially the ankles/feet,painful gait, decreased balance History of Current Condition Pt has a hisotry of scleroderma that affects her LE. This makes her legs so tight she has lost ROM in her ankles. She reports pain with walking, decresased balance and poor energy. She has been seen in PT years ago for help reducing tightness in her legs. She notes that symptms increased following a myocardial infacrtion in June of 2019. Fay reports for days before her heart attack she was having a buring pain in her chest, she was taken to the ER at [facility] and then sent to [facility]. She was transfered from [facility] to [facility] in [place]. She had 2 stents put in and then had a GI bleed. When she returned home and for awhile ( a week or two) she felt increased energy. But then it went away. Has new symptoms of psorasis and reports her legs feel very bound. Taking Consentyx the injection for Psorasis. The scleroderma in her feet and legs feels worse. She hasn't had treatment in so many years for her legs. She is taking blood thinners. SHe had been doing cardiac rehab and doing really good but had to stop due to covid 19 pandemic. She hasn't been walking as much as she had before and she reports 15-20 minutes is her walking max. Past medical history includes hx of cancer, depression, type II diabetes, dizzyness, memory loss, neuropathy, thyroid disorder, psychological disorder Treatment Goals Patient/Caregiver Goals pt reports she would like to get to 35-40 minutes of walking, other goals include balance training, strengthening, and loosening her leg muscles. Prior Functional Status Baseline Function- ADL's Independent Baseline Function- Mobility Independent Current Functional Impairments (Reported) Functional Limitations- Mobility/Gait Because of the tightness her balance is off and she feels really off balance. Standing hurts due to the leg tightnes. She notes both her feet and legs have increased pain after 10 minutes of static standing . She uses a cane for outdoor ambulation. Functional Limitations- Recreation/ limited recreational Hobbies activities due to decreased endurance and pain in her legs with activity PT-OP-C Subjective Start: 01/28/20 11:22 Freq: Status: Active Protocol: Document 03/17/20 16:43 [facility] (Rec: 03/17/20 16:49 [facility] [email or web address]) OP-PT Subjective Patient Comments Patient Comments Pt had her second cardiac rehab session today and it went well. She has been trying to roll her feet out on her ball at home. PT-OP-F Manual Assessment Start: 01/28/20 11:22 Freq: Status: Active Protocol: Document 01/28/20 11:15 [facility] (Rec: 02/02/20 08:51 [facility] [id number]) Manual Assessments Soft Tissue Assessment Soft Tissue Mobility Assessment With examination there is scleroderma present throughout B LE. THis affects the musculature of the hips, quads /hamstrings, and anterior and posterior shins and ankles. There is poor calf flexibility , stiffened and tight plantar fascia, flexor digitorum brevis, adductor halliscus, and extensor muscles of the feet. Joint Mobility Assessment Joint Mobility Assessment very poor ankle mobility, hypomobility of the ankle in all planes PT-OP-J Posture/Palpation/Skin Start: 01/28/20 11:22 Freq: Status: Active Protocol: Document 01/28/20 11:15 [facility] (Rec: 02/02/20 12:33 [facility] [id number]) Palpation Assessment Location Two Palpation Location tibialis anterior Palpation Findings Soft Tissue Tightness Palpation Details scar tissue tightness throughout the muscle belly with limited ankle ROM into DF plantar fascia Palpation Location plantar fascia Palpation Findings Soft Tissue Tightness, Tenderness Palpation Details Very little flexibility from the plantar fascia due to tightness and limited ankle ROM One Palpation Location calf musculature B Palpation Findings Soft Tissue Tightness Palpation Details scar tissue noted throughout the muscular wall of the gastrocnemius and soleus musculature due to scleroderma PT-OP-K Range of Motion Start: 01/28/20 11:22 Freq: Status: Active Protocol: Document 01/28/20 11:15 [facility] (Rec: 02/02/20 08:58 [facility] [id number]) Hip Goniometric Range of Motion Hip Right Hip ROM WFL No Testing Position Supine Flexion w/Knee Flexed 105 Straight Leg Raise 45 External Rotation 15 Left Hip ROM WFL No Testing Position Supine Flexion w/Knee Flexed 100 Straight Leg Raise 40 External Rotation 15 Ankle and Foot Goniometric Range of Motion Ankle and Foot Right Ankle/Foot ROM WFL No Testing Position Supine Dorsiflexion with Knee Flexed 5 Dorsiflexion with Knee Extended 2 Plantarflexion 5 Inversion 5 Eversion 5 Left Ankle/Foot ROM WFL No Testing Position Supine Dorsiflexion with Knee Flexed 5 Dorsiflexion with Knee Extended 2 Plantarflexion 5 Inversion 5 Eversion 5 Ankle and Foot ROM Limitations ROM Limitations Soft Tissue Tightness, Contracture Comments pt is so tight in the musculature surrounding her ankles and feet due to scleroderma that she has very poor AROM and PROM. I was able to gain af few degrees today following manual therapy work PT-OP-M Strength Start: 01/28/20 11:22 Freq: Status: Active Protocol: Document 01/28/20 11:15 [facility] (Rec: 02/02/20 12:26 [facility] [id number]) Hip Strength Hip Manual Muscle Testing Right Flexion (L2) 3+ Fair+ Extension (S1) 3 Fair Abduction 3+ Fair+ Adduction 3+ Fair+ External Rotation 3 Fair Left Flexion (L2) 3+ Fair+ Abduction 3+ Fair+ Adduction 3+ Fair+ External Rotation 3 Fair Ankle/Foot Strength Ankle and Foot Manual Muscle Testing Right Dorsiflexion (L4) 2+ Poor+ Plantarflexion (S1) 2+ Poor+ Inversion 2+ Poor+ Eversion (S1) 2+ Poor+ Left Dorsiflexion (L4) 2 Poor Plantarflexion (S1) 2+ Poor+ Inversion 2+ Poor+ Eversion (S1) 2+ Poor+ Comments Limited ankle ROM makes it very difficult for Fay to activate her muscles that control ankle movement PT-OP-Q Treatments Start: 01/28/20 11:22 Freq: Status: Active Protocol: Document 03/17/20 16:43 [facility] (Rec: 03/17/20 16:49 [facility] [id number]) Manual Therapy Treatment Soft Tissue Mobilization 1 Body Location B anterior and posterior shins /feet Mobilization Type Myofascial Release Comments MFR was performed to B anterior and posterior shins and feet, PROM was performed at the ankles and feet Manual Techniques 2 Type manual stretching for the gastroc/soleus complex Body Position Supine 1 Type PROM stretches were performed at B ankles and feet, manual stretching Body Position Supine Comments Good tolerance for ROM and manual stretching PT-OP-R Modalities Start: 02/24/20 15:25 Freq: Status: Active Protocol: Document 02/24/20 15:25 [facility] (Rec: 02/24/20 15:25 [facility] [id number]) Hot Pack/Cold Pack Treatment Hot Pack Location around B calf musculature Patient Position Supine Patient Tolerance Good PT-OP-T Assessment and Plan Start: 01/28/20 11:22 Freq: Status: Active Protocol: Document 03/17/20 16:43 [facility] (Rec: 03/17/20 16:49 [facility] [id number]) Physical Therapy Assessment Assessment Summary Assessment pt had already done cardiac rehab today so we held off on the treadmill. She is being treated for radiation induced tightness in her LE specifically her calves and feet. Fay has very limited ankle ROM and tightness in the plantar fascia as well as the calf musculature. 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 She also has scleroderma which contributes to the tightness in her legs. She has sores on her coccyx so needs a pillow under her gluteals when sitting. She prefers the large black table and we lift it to a 90 degree position to support her back. Physical Therapy Plan Next Visit Focus/Plan Next Note Type Treatment Note Next Visit Plan continue to work on soft tissue and manual work to improve circulation and tissue extensibility in the LE, ankles, and feet
--- NOTE | 2020-03-22 15:30 | PT.OTN ---
Current Diagnoses Systemic sclerosis, unspecified (03/22/20) Physical Therapy Treatment Note PT-OP-A Visit Information Start: 01/28/20 11:22 Freq: Status: Active Protocol: Document 03/22/20 14:30 SP (Rec: 03/22/20 15:41 SP [id number]) Out-Patient Physical Therapy Visit Information Visit Information Visit Type Treatment Note Visit Start Time 14:30 Visit Stop Time 15:30 Total Visit Minutes 60 Visit Number 8 Number of DRILL SERGEANT Visits 1 PT-OP-B Current Condition Start: 01/28/20 11:22 Freq: Status: Active Protocol: Document 01/28/20 11:26 AMH (Rec: 01/28/20 11:40 AMH [id number]) Current Condition History of Current Condition Onset Date Pt has a chronic hx of scleroderma, recent flare after a PR July 08 Current Complaints painful ROM LE especially the ankles/feet,painful gait, decreased balance History of Current Condition Pt has a hisotry of scleroderma that affects her LE. This makes her legs so tight she has lost ROM in her ankles. She reports pain with walking, decresased balance and poor energy. She has been seen in PT years ago for help reducing tightness in her legs. She notes that symptms increased following a myocardial infacrtion in June of 2019. Fay reports for days before her heart attack she was having a buring pain in her chest, she was taken to the ER at [facility] and then sent to [facility]. She was transfered from [facility] to [facility] in [place]. She had 2 stents put in and then had a GI bleed. When she returned home and for awhile ( a week or two) she felt increased energy. But then it went away. Has new symptoms of psorasis and reports her legs feel very bound. Taking Consentyx the injection for Psorasis. The scleroderma in her feet and legs feels worse. She hasn't had treatment in so many years for her legs. She is taking blood thinners. SHe had been doing cardiac rehab and doing really good but had to stop due to covid 19 pandemic. She hasn't been walking as much as she had before and she reports 15-20 minutes is her walking max. Past medical history includes hx of cancer, depression, type II diabetes, dizzyness, memory loss, neuropathy, thyroid disorder, psychological disorder Treatment Goals Patient/Caregiver Goals pt reports she would like to get to 35-40 minutes of walking, other goals include balance training, strengthening, and loosening her leg muscles. Prior Functional Status Baseline Function- ADL's Independent Baseline Function- Mobility Independent Current Functional Impairments (Reported) Functional Limitations- Mobility/Gait Because of the tightness her balance is off and she feels really off balance. Standing hurts due to the leg tightnes. She notes both her feet and legs have increased pain after 10 minutes of static standing . She uses a cane for outdoor ambulation. Functional Limitations- Recreation/ limited recreational Hobbies activities due to decreased endurance and pain in her legs with activity PT-OP-C Subjective Start: 01/28/20 11:22 Freq: Status: Active Protocol: Document 03/22/20 14:30 SP (Rec: 03/22/20 15:41 SP [id number]) OP-PT Subjective Patient Comments Patient Comments Pt reported didn't have cardiac rehab today. I feel very stiff today, and bottoms of my feet are hurting? PT-OP-F Manual Assessment Start: 01/28/20 11:22 Freq: Status: Active Protocol: Document 01/28/20 11:15 AMH (Rec: 02/02/20 08:51 AMH [id number]) Manual Assessments Soft Tissue Assessment Soft Tissue Mobility Assessment With examination there is scleroderma present throughout B LE. THis affects the musculature of the hips, quads /hamstrings, and anterior and posterior shins and ankles. There is poor calf flexibility , stiffened and tight plantar fascia, flexor digitorum brevis, adductor halliscus, and extensor muscles of the feet. Joint Mobility Assessment Joint Mobility Assessment very poor ankle mobility, hypomobility of the ankle in all planes PT-OP-J Posture/Palpation/Skin Start: 01/28/20 11:22 Freq: Status: Active Protocol: Document 01/28/20 11:15 AMH (Rec: 02/02/20 12:33 AMH [id number]) Palpation Assessment Location Two Palpation Location tibialis anterior Palpation Findings Soft Tissue Tightness Palpation Details scar tissue tightness throughout the muscle belly with limited ankle ROM into DF plantar fascia Palpation Location plantar fascia Palpation Findings Soft Tissue Tightness, Tenderness Palpation Details Very little flexibility from the plantar fascia due to tightness and limited ankle ROM One Palpation Location calf musculature B Palpation Findings Soft Tissue Tightness Palpation Details scar tissue noted throughout the muscular wall of the gastrocnemius and soleus musculature due to scleroderma PT-OP-K Range of Motion Start: 01/28/20 11:22 Freq: Status: Active Protocol: Document 01/28/20 11:15 AMH (Rec: 02/02/20 08:58 AMH [id number]) Hip Goniometric Range of Motion Hip Right Hip ROM WFL No Testing Position Supine Flexion w/Knee Flexed 105 Straight Leg Raise 45 External Rotation 15 Left Hip ROM WFL No Testing Position Supine Flexion w/Knee Flexed 100 Straight Leg Raise 40 External Rotation 15 Ankle and Foot Goniometric Range of Motion Ankle and Foot Right Ankle/Foot ROM WFL No Testing Position Supine Dorsiflexion with Knee Flexed 5 Dorsiflexion with Knee Extended 2 Plantarflexion 5 Inversion 5 Eversion 5 Left Ankle/Foot ROM WFL No Testing Position Supine Dorsiflexion with Knee Flexed 5 Dorsiflexion with Knee Extended 2 Plantarflexion 5 Inversion 5 Eversion 5 Ankle and Foot ROM Limitations ROM Limitations Soft Tissue Tightness, Contracture Comments pt is so tight in the musculature surrounding her ankles and feet due to scleroderma that she has very poor AROM and PROM. I was able to gain af few degrees today following manual therapy work PT-OP-M Strength Start: 01/28/20 11:22 Freq: Status: Active Protocol: Document 01/28/20 11:15 AMH (Rec: 02/02/20 12:26 AMH [id number]) Hip Strength Hip Manual Muscle Testing Right Flexion (L2) 3+ Fair+ Extension (S1) 3 Fair Abduction 3+ Fair+ Adduction 3+ Fair+ External Rotation 3 Fair Left Flexion (L2) 3+ Fair+ Abduction 3+ Fair+ Adduction 3+ Fair+ External Rotation 3 Fair Ankle/Foot Strength Ankle and Foot Manual Muscle Testing Right Dorsiflexion (L4) 2+ Poor+ Plantarflexion (S1) 2+ Poor+ Inversion 2+ Poor+ Eversion (S1) 2+ Poor+ Left Dorsiflexion (L4) 2 Poor Plantarflexion (S1) 2+ Poor+ Inversion 2+ Poor+ Eversion (S1) 2+ Poor+ Comments Limited ankle ROM makes it very difficult for Fay to activate her muscles that control ankle movement PT-OP-Q Treatments Start: 01/28/20 11:22 Freq: Status: Active Protocol: Document 03/22/20 14:30 SP (Rec: 03/22/20 15:41 SP [id number]) Cardio Equipment Treadmill Duration (Minutes) 10 Speed 1.4 Incline .5 Other intermittent no UE support Therapeutic Exercises Sitting Exercises glut/pirformis stretch Sitting Exercise Name cradle knee to chest w/ foot on opposite knee Side bilateral Reps/Minutes 30 x2 Comments soft chair Manual Therapy Treatment Soft Tissue Mobilization 1 Body Location B anterior and posterior shins /feet Mobilization Type Myofascial Release Intensity/Depth Superficial Body Position long sitting (rolled towel under B ischial tuberosities) Comments MFR was performed to B anterior and posterior shins and feet, PROM was performed at the ankles and feet Manual Techniques 2 Type manual stretching for the gastroc/soleus complex Body Position Supine Comments cued upright posture and balance over BLE 1. NBOS: head turns/ EC-easy 2. stagger- head turns 1 Type PROM stretches were performed at B ankles and feet, manual stretching Body Position Supine Comments Good tolerance for ROM and manual stretching Neuro Re-Education Treatment Balance Activities NBOS,stagger in corner Details chair front/ corner wall behind Surface floor Reps/Duration 8 Comments cued upright posture and balance over BLE 1. NBOS: head turns/ EC-easy 2. stagger- head turns PT-OP-R Modalities Start: 02/24/20 15:25 Freq: Status: Active Protocol: Document 02/24/20 15:25 AMH (Rec: 02/24/20 15:25 AMH [id number]) Hot Pack/Cold Pack Treatment Hot Pack Location around B calf musculature Patient Position Supine Patient Tolerance Good PT-OP-T Assessment and Plan Start: 01/28/20 11:22 Freq: Status: Active Protocol: Document 03/22/20 14:30 SP (Rec: 03/22/20 15:41 SP [id number]) Physical Therapy Assessment Goals Four Impairment Fay is not currently engaging in a home exercise program Short Term Goal (STG) Fay is instructed in exercises and gentle stretches as we progress through therapy that she is able to do at home. STG Duration 4-8 weeks Three Impairment Pain prevents Fay from standing more than 10 min and walking > 1/4 mile Facilities Operations Technician Goal (LTG) Fay is able to increase her tolerance for standing to 30 minutes and walking 1/2 mile or greater at a time LTG Duration 8 weeks Two Impairment Limited ankle ROM creating difficulty with gait and balance activities Correction Goal (LTG) Fay demonstrates a improved in ankle ROM by at least 5 degrees for DF/PF/INV/EVR to assist with balance and gait activities LTG Duration 8 weeks One Impairment Pain rated 6/10 in B LE Short Term Goal (STG) Fay has a reduction in pain to 4-5/10 with manual therapy and ROM exercises Facilities Operations Technician Goal (LTG) With manual therapy techniques and a home stretching/ exercise program Fay is able to reduce her pain from 6/10 tp 2-3/10 Assessment Summary Assessment Pt responded well to tx, more movement in ankles/feet post manual. Intiated corner balance activities and glut stretch for HEP with good results and challenge safety at home to decreased tightness and progress self in balance performance. Pt reported L glut pain due to hard connective tissue, improved with added glut stretch in sitting. Physical Therapy Plan Frequency and Duration Frequency of Treatment 2x/Week Duration of Treatment 8 Plan of Care Start Date 01/28/20 Plan of Care End Date 03/24/20 Therapeutic Interventions Therapeutic Interventions Balance Training,Home Exercise Program,Manual Therapy, Neuromuscular Re-education, Patient/Caregiver Education, Self-Care/Home Management,Soft Tissue Mobilization, Therapeutic Exercises Next Visit Focus/Plan Next Note Type Treatment Note Next Visit Plan Assess respsones to last tx: manual, balance corner activity, glut stretch after TM walking. Continue per PT POC: work on soft tissue and manual work to improve circulation and tissue extensibility in the LE, ankles, and feet
--- NOTE | 2020-03-22 17:34 | PT.OPPOC ---
Physical, Occupational & Speech Therapy At [facility] Current Diagnoses Systemic sclerosis, unspecified (03/29/20) Visit Care Team Role Provider Type Timur Schwartz MD Primary Care Provider Physician Specialty: Internal Medicine Address: [address] [place] [address], [id number] Email: [email or web address] Gage Palomares DO Attending Provider Non-Staff Referring Provider Specialty: Dermatology Address: [address] [place] [address], [id number] Email: Plan Of Care PT-OP-T Assessment and Plan Start: 01/28/20 11:22 Freq: Status: Active Protocol: Document 03/29/20 15:00 AMH (Rec: 03/28/20 10:01 AMH [id number]) Physical Therapy Assessment Goals Four Impairment Fay is not currently engaging in a home exercise program Short Term Goal (STG) aFy is instructed in exercises and gentle stretches as we progress through therapy that she is able to do at home. Fay is now working on a home stretching program for her LE and feet. She has also started cardiac rehab along with PT STG Duration 4-8 weeks Three Impairment Pain prevents Fay from standing more than 10 min and walking > 1/4 mile Igniter Capper Goal (LTG) Fay is able to increase her tolerance for standing to 30 minutes and walking 1/2 mile or greater at a time Fay has been working on increasing her time walking . She has been able to walk on the treadmill in the clinic for 15 minutes LTG Duration 8 weeks Two Impairment Limited ankle ROM creating difficulty with gait and balance activities Igniter Capper Goal (LTG) Fay demonstrates a improved in ankle ROM by at least 5 degrees for DF/PF/INV/EVR to assist with balance and gait activities Some progress LTG Duration 8 weeks One Impairment Pain rated 6/10 in B LE Short Term Goal (STG) Fay has a reduction in pain to 4-5/10 with manual therapy and ROM exercises Long-Term Goal (LTG) With manual therapy techniques and a home stretching/ exercise program Fay is able to reduce her pain from 6/10 tp 2-3/10 Some progress Progress Towards Goals Progress Towards Goals Progressing Toward Goals Assessment Summary Assessment Fay responds well to PT and demonstrates improved ROM of her ankles following manual therapy techniques. She has been increasing her time walking and has gotten up to 15 minutes of treadmill walking in the clinic. She would benefit from continued PT for ROM and reduced pain to assist her with mobility and decrease her risk of falls. Physical Therapy Plan Frequency and Duration Frequency of Treatment 2x/Week Duration of Treatment 8 Plan of Care Start Date 03/24/20 Plan of Care End Date 05/19/20 Next Visit Focus/Plan Next Note Type Treatment Note Next Visit Plan Assess respsones to last tx: manual, balance corner activity, glut stretch after TM walking. Continue per PT POC: work on soft tissue and manual work to improve circulation and tissue extensibility in the LE, ankles, and feet Plan of Care Dates Plan of Care Start Date 03/24/20 Plan of Care End Date 05/19/20 Electronically Signed by: Nidhi Villanueva, PT 03/29/20 [id number] Please Sign and Return: I have reviewed this Plan of Care and certify that the skilled therapy services above are required to meet the patient?s needs. Physician Signature Date Printed Name and Credentials Clinical Instructor Signature Printed Name and Credentials
--- NOTE | 2020-03-25 14:40 | PT.OTN ---
Current Diagnoses Systemic sclerosis, unspecified (03/25/20) Physical Therapy Treatment Note PT-OP-A Visit Information Start: 01/28/20 11:22 Freq: Status: Active Protocol: Document 03/25/20 13:46 SP (Rec: 03/29/20 11:58 SP [id number]) Out-Patient Physical Therapy Visit Information Visit Information Visit Type Treatment Note Visit Start Time 13:46 Visit Stop Time 14:40 Total Visit Minutes 54 Visit Number 9 Number of FRINGE KNOTTER Visits 2 PT-OP-B Current Condition Start: 01/28/20 11:22 Freq: Status: Active Protocol: Document 01/28/20 11:26 AMH (Rec: 01/28/20 11:40 AMH [id number]) Current Condition History of Current Condition Onset Date Pt has a chronic hx of scleroderma, recent flare after a [place] July 08 Current Complaints painful ROM LE especially the ankles/feet,painful gait, decreased balance History of Current Condition Pt has a hisotry of scleroderma that affects her LE. This makes her legs so tight she has lost ROM in her ankles. She reports pain with walking, decresased balance and poor energy. She has been seen in PT years ago for help reducing tightness in her legs. She notes that symptms increased following a myocardial infacrtion in June of 2019. Fay reports for days before her heart attack she was having a buring pain in her chest, she was taken to the ER at [facility] and then sent to [facility]. She was transfered from [facility] to [facility] in [place]. She had 2 stents put in and then had a GI bleed. When she returned home and for awhile ( a week or two) she felt increased energy. But then it went away. Has new symptoms of psorasis and reports her legs feel very bound. Taking Consentyx the injection for Psorasis. The scleroderma in her feet and legs feels worse. She hasn't had treatment in so many years for her legs. She is taking blood thinners. SHe had been doing cardiac rehab and doing really good but had to stop due to covid 19 pandemic. She hasn't been walking as much as she had before and she reports 15-20 minutes is her walking max. Past medical history includes hx of cancer, depression, type II diabetes, dizzyness, memory loss, neuropathy, thyroid disorder, psychological disorder Treatment Goals Patient/Caregiver Goals pt reports she would like to get to 35-40 minutes of walking, other goals include balance training, strengthening, and loosening her leg muscles. Prior Functional Status Baseline Function- ADL's Independent Baseline Function- Mobility Independent Current Functional Impairments (Reported) Functional Limitations- Mobility/Gait Because of the tightness her balance is off and she feels really off balance. Standing hurts due to the leg tightnes. She notes both her feet and legs have increased pain after 10 minutes of static standing . She uses a cane for outdoor ambulation. Functional Limitations- Recreation/ limited recreational Hobbies activities due to decreased endurance and pain in her legs with activity PT-OP-C Subjective Start: 01/28/20 11:22 Freq: Status: Active Protocol: Document 03/25/20 13:46 SP (Rec: 03/29/20 11:58 SP [id number]) OP-PT Subjective Patient Comments Patient Comments Pt c/o R shld anteriorly bothering her today and tried doing pendulums known in past but didn't seem to help as much as hoped. Pt requested if could do anything for her shoulder to help during tx today. PT-OP-F Manual Assessment Start: 01/28/20 11:22 Freq: Status: Active Protocol: Document 01/28/20 11:15 AMH (Rec: 02/02/20 08:51 AMH [id number]) Manual Assessments Soft Tissue Assessment Soft Tissue Mobility Assessment With examination there is scleroderma present throughout B LE. THis affects the musculature of the hips, quads /hamstrings, and anterior and posterior shins and ankles. There is poor calf flexibility , stiffened and tight plantar fascia, flexor digitorum brevis, adductor halliscus, and extensor muscles of the feet. Joint Mobility Assessment Joint Mobility Assessment very poor ankle mobility, hypomobility of the ankle in all planes PT-OP-J Posture/Palpation/Skin Start: 01/28/20 11:22 Freq: Status: Active Protocol: Document 01/28/20 11:15 AMH (Rec: 02/02/20 12:33 AMH [id number]) Palpation Assessment Location Two Palpation Location tibialis anterior Palpation Findings Soft Tissue Tightness Palpation Details scar tissue tightness throughout the muscle belly with limited ankle ROM into DF plantar fascia Palpation Location plantar fascia Palpation Findings Soft Tissue Tightness, Tenderness Palpation Details Very little flexibility from the plantar fascia due to tightness and limited ankle ROM One Palpation Location calf musculature B Palpation Findings Soft Tissue Tightness Palpation Details scar tissue noted throughout the muscular wall of the gastrocnemius and soleus musculature due to scleroderma PT-OP-K Range of Motion Start: 01/28/20 11:22 Freq: Status: Active Protocol: Document 01/28/20 11:15 AMH (Rec: 02/02/20 08:58 AMH [id number]) Hip Goniometric Range of Motion Hip Right Hip ROM WFL No Testing Position Supine Flexion w/Knee Flexed 105 Straight Leg Raise 45 External Rotation 15 Left Hip ROM WFL No Testing Position Supine Flexion w/Knee Flexed 100 Straight Leg Raise 40 External Rotation 15 Ankle and Foot Goniometric Range of Motion Ankle and Foot Right Ankle/Foot ROM WFL No Testing Position Supine Dorsiflexion with Knee Flexed 5 Dorsiflexion with Knee Extended 2 Plantarflexion 5 Inversion 5 Eversion 5 Left Ankle/Foot ROM WFL No Testing Position Supine Dorsiflexion with Knee Flexed 5 Dorsiflexion with Knee Extended 2 Plantarflexion 5 Inversion 5 Eversion 5 Ankle and Foot ROM Limitations ROM Limitations Soft Tissue Tightness, Contracture Comments pt is so tight in the musculature surrounding her ankles and feet due to scleroderma that she has very poor AROM and PROM. I was able to gain af few degrees today following manual therapy work PT-OP-M Strength Start: 01/28/20 11:22 Freq: Status: Active Protocol: Document 01/28/20 11:15 AMH (Rec: 02/02/20 12:26 AMH [id number]) Hip Strength Hip Manual Muscle Testing Right Flexion (L2) 3+ Fair+ Extension (S1) 3 Fair Abduction 3+ Fair+ Adduction 3+ Fair+ External Rotation 3 Fair Left Flexion (L2) 3+ Fair+ Abduction 3+ Fair+ Adduction 3+ Fair+ External Rotation 3 Fair Ankle/Foot Strength Ankle and Foot Manual Muscle Testing Right Dorsiflexion (L4) 2+ Poor+ Plantarflexion (S1) 2+ Poor+ Inversion 2+ Poor+ Eversion (S1) 2+ Poor+ Left Dorsiflexion (L4) 2 Poor Plantarflexion (S1) 2+ Poor+ Inversion 2+ Poor+ Eversion (S1) 2+ Poor+ Comments Limited ankle ROM makes it very difficult for Fay to activate her muscles that control ankle movement PT-OP-Q Treatments Start: 01/28/20 11:22 Freq: Status: Active Protocol: Document 03/25/20 13:46 SP (Rec: 03/29/20 11:58 SP [id number]) Cardio Equipment Treadmill Duration (Minutes) 10 Speed 1.4 Incline .5 Other intermittent no UE support Therapeutic Exercises Sitting Exercises pendulum Side right Reps/Minutes x10 R shld Er Side right Reps/Minutes 2 sec hold x5 Scap retraction Side bilateral Reps/Minutes 5 sec x5 glut/pirformis stretch Sitting Exercise Name cradle knee to chest w/ foot on opposite knee Side bilateral Reps/Minutes 30 x2 Comments soft chair Manual Therapy Treatment Soft Tissue Mobilization B patellar tendon Body Location B Mobilization Type Cross-Friction Intensity/Depth Moderate Body Position Sitting Comments Long sitting R pec, coracobrachialis Body Location R in sitting Mobilization Type Cross-Friction,Myofascial Release Intensity/Depth Moderate Body Position Sitting 1 Body Location B anterior and posterior shins /feet Mobilization Type Myofascial Release Intensity/Depth Superficial Body Position long sitting (rolled towel under B ischial tuberosities) Comments MFR was performed to B anterior and posterior shins and feet, PROM was performed at the ankles and feet Joint Mobilizations Patella mobes Joint B Direction med/lat/sup/inf Grade II Body Position Sitting Comments Long sitting I feel like can breath better post. R GH Jt AP Joint R Direction proximal humeral AP Grade II Body Position Sitting Reps/Duration x5 Manual Techniques 2 Type manual stretching for the gastroc/soleus complex Body Position Supine 1 Type PROM stretches were performed at B ankles and feet, manual stretching Body Location B PF/ DF Body Position Supine Comments Good tolerance for ROM and manual stretching PT-OP-R Modalities Start: 02/24/20 15:25 Freq: Status: Active Protocol: Document 03/25/20 13:46 SP (Rec: 03/29/20 11:58 SP [id number]) Hot Pack/Cold Pack Treatment Hot Pack Location R shld Patient Position Sitting Treatment Duration (minutes) 10 Patient Tolerance Good Comments decreased in discomfort anterior R shld end of tx. PT-OP-T Assessment and Plan Start: 01/28/20 11:22 Freq: Status: Active Protocol: Document 03/25/20 13:46 SP (Rec: 03/29/20 11:58 SP [id number]) Physical Therapy Assessment Goals Four Impairment Fay is not currently engaging in a home exercise program Short Term Goal (STG) Fay is instructed in exercises and gentle stretches as we progress through therapy that she is able to do at home. Fay is now working on a home stretching program for her LE and feet. She has also started cardiac rehab along with PT STG Duration 4-8 weeks Three Impairment Pain prevents Fay from standing more than 10 min and walking > 1/4 mile Intermediate Goal (LTG) Fay is able to increase her tolerance for standing to 30 minutes and walking 1/2 mile or greater at a time Fay has been working on increasing her time walking . She has been able to walk on the treadmill in the clinic for 15 minutes LTG Duration 8 weeks Two Impairment Limited ankle ROM creating difficulty with gait and balance activities Intermediate Goal (LTG) Fay demonstrates a improved in ankle ROM by at least 5 degrees for DF/PF/INV/EVR to assist with balance and gait activities Some progress LTG Duration 8 weeks One Impairment Pain rated 6/10 in B LE Short Term Goal (STG) Fay has a reduction in pain to 4-5/10 with manual therapy and ROM exercises Purler Goal (LTG) With manual therapy techniques and a home stretching/ exercise program Fay is able to reduce her pain from 6/10 tp 2-3/10 Some progress Assessment Summary Assessment Pt responded well to manual treatment B Le and added R shld today due to pain, anterior posture. She reported having increased ROM, proprioception awareness and upright posture. I feel so much looser, able to walk and breath better. Physical Therapy Plan Frequency and Duration Frequency of Treatment 2x/Week Duration of Treatment 8 Plan of Care Start Date 03/24/20 Plan of Care End Date 05/19/20 Therapeutic Interventions Therapeutic Interventions Balance Training,Home Exercise Program,Manual Therapy, Neuromuscular Re-education, Patient/Caregiver Education, Self-Care/Home Management,Soft Tissue Mobilization, Therapeutic Exercises Next Visit Focus/Plan Next Note Type Treatment Note Next Visit Plan Assess respsones to last tx: manual B calf, beckham, feet, R shld and added scap stabilization ther ex. Next tx : review HEP: balance corner, glut stretching. Continue per PT POC: work on soft tissue and manual work to improve circulation and tissue extensibility in the LE, ankles, and feet
--- NOTE | 2020-03-28 10:01 | PT.OPPN ---
Current Diagnoses Systemic sclerosis, unspecified (03/25/20) Physical Therapy Progress Note PT-OP-A Visit Information Start: 01/28/20 11:22 Freq: Status: Active Protocol: Document 03/22/20 14:30 SP (Rec: 03/22/20 15:41 SP [id number]) Out-Patient Physical Therapy Visit Information Visit Information Visit Type Treatment Note Visit Start Time 14:30 Visit Stop Time 15:30 Total Visit Minutes 60 Visit Number 8 Number of NURSING PROGRAM DIRECTOR Visits 1 PT-OP-B Current Condition Start: 01/28/20 11:22 Freq: Status: Active Protocol: Document 01/28/20 11:26 AMH (Rec: 01/28/20 11:40 AMH [id number]) Current Condition History of Current Condition Onset Date Pt has a chronic hx of scleroderma, recent flare after a [place] July 08 Current Complaints painful ROM LE especially the ankles/feet,painful gait, decreased balance History of Current Condition Pt has a hisotry of scleroderma that affects her LE. This makes her legs so tight she has lost ROM in her ankles. She reports pain with walking, decresased balance and poor energy. She has been seen in PT years ago for help reducing tightness in her legs. She notes that symptms increased following a myocardial infacrtion in June of 2019. Fay reports for days before her heart attack she was having a buring pain in her chest, she was taken to the ER at [facility] and then sent to [facility]. She was transfered from [facility] to [facility] in [place]. She had 2 stents put in and then had a GI bleed. When she returned home and for awhile ( a week or two) she felt increased energy. But then it went away. Has new symptoms of psorasis and reports her legs feel very bound. Taking Consentyx the injection for Psorasis. The scleroderma in her feet and legs feels worse. She hasn't had treatment in so many years for her legs. She is taking blood thinners. SHe had been doing cardiac rehab and doing really good but had to stop due to covid 19 pandemic. She hasn't been walking as much as she had before and she reports 15-20 minutes is her walking max. Past medical history includes hx of cancer, depression, type II diabetes, dizzyness, memory loss, neuropathy, thyroid disorder, psychological disorder Treatment Goals Patient/Caregiver Goals pt reports she would like to get to 35-40 minutes of walking, other goals include balance training, strengthening, and loosening her leg muscles. Prior Functional Status Baseline Function- ADL's Independent Baseline Function- Mobility Independent Current Functional Impairments (Reported) Functional Limitations- Mobility/Gait Because of the tightness her balance is off and she feels really off balance. Standing hurts due to the leg tightnes. She notes both her feet and legs have increased pain after 10 minutes of static standing . She uses a cane for outdoor ambulation. Functional Limitations- Recreation/ limited recreational Hobbies activities due to decreased endurance and pain in her legs with activity PT-OP-C Subjective Start: 01/28/20 11:22 Freq: Status: Active Protocol: Document 03/22/20 14:30 SP (Rec: 03/22/20 15:41 SP [id number]) OP-PT Subjective Patient Comments Patient Comments Pt reported didn't have cardiac rehab today. I feel very stiff today, and bottoms of my feet are hurting? PT-OP-F Manual Assessment Start: 01/28/20 11:22 Freq: Status: Active Protocol: Document 01/28/20 11:15 AMH (Rec: 02/02/20 08:51 AMH [id number]) Manual Assessments Soft Tissue Assessment Soft Tissue Mobility Assessment With examination there is scleroderma present throughout B LE. THis affects the musculature of the hips, quads /hamstrings, and anterior and posterior shins and ankles. There is poor calf flexibility , stiffened and tight plantar fascia, flexor digitorum brevis, adductor halliscus, and extensor muscles of the feet. Joint Mobility Assessment Joint Mobility Assessment very poor ankle mobility, hypomobility of the ankle in all planes PT-OP-J Posture/Palpation/Skin Start: 01/28/20 11:22 Freq: Status: Active Protocol: Document 01/28/20 11:15 AMH (Rec: 02/02/20 12:33 AMH [id number]) Palpation Assessment Location Two Palpation Location tibialis anterior Palpation Findings Soft Tissue Tightness Palpation Details scar tissue tightness throughout the muscle belly with limited ankle ROM into DF plantar fascia Palpation Location plantar fascia Palpation Findings Soft Tissue Tightness, Tenderness Palpation Details Very little flexibility from the plantar fascia due to tightness and limited ankle ROM One Palpation Location calf musculature B Palpation Findings Soft Tissue Tightness Palpation Details scar tissue noted throughout the muscular wall of the gastrocnemius and soleus musculature due to scleroderma PT-OP-K Range of Motion Start: 01/28/20 11:22 Freq: Status: Active Protocol: Document 01/28/20 11:15 AMH (Rec: 02/02/20 08:58 AMH [id number]) Hip Goniometric Range of Motion Hip Measured in Degrees Right Hip ROM WFL No Testing Position Supine Flexion w/Knee Flexed 105 Straight Leg Raise 45 External Rotation 15 Left Hip ROM WFL No Testing Position Supine Flexion w/Knee Flexed 100 Straight Leg Raise 40 External Rotation 15 Ankle and Foot Goniometric Range of Motion Ankle and Foot Measured in Degrees Right Ankle/Foot ROM WFL No Testing Position Supine Dorsiflexion with Knee Flexed 5 Dorsiflexion with Knee Extended 2 Plantarflexion 5 Inversion 5 Eversion 5 Left Ankle/Foot ROM WFL No Testing Position Supine Dorsiflexion with Knee Flexed 5 Dorsiflexion with Knee Extended 2 Plantarflexion 5 Inversion 5 Eversion 5 Ankle and Foot ROM Limitations ROM Limitations Soft Tissue Tightness, Contracture Comments pt is so tight in the musculature surrounding her ankles and feet due to scleroderma that she has very poor AROM and PROM. I was able to gain af few degrees today following manual therapy work PT-OP-M Strength Start: 01/28/20 11:22 Freq: Status: Active Protocol: Document 01/28/20 11:15 [facility] (Rec: 02/02/20 12:26 AMH [id number]) Hip Strength Hip Manual Muscle Testing Right Flexion (L2) 3+ Fair+ Extension (S1) 3 Fair Abduction 3+ Fair+ Adduction 3+ Fair+ External Rotation 3 Fair Left Flexion (L2) 3+ Fair+ Abduction 3+ Fair+ Adduction 3+ Fair+ External Rotation 3 Fair Ankle/Foot Strength Ankle and Foot Manual Muscle Testing Right Dorsiflexion (L4) 2+ Poor+ Plantarflexion (S1) 2+ Poor+ Inversion 2+ Poor+ Eversion (S1) 2+ Poor+ Left Dorsiflexion (L4) 2 Poor Plantarflexion (S1) 2+ Poor+ Inversion 2+ Poor+ Eversion (S1) 2+ Poor+ Comments Limited ankle ROM makes it very difficult for Fay to activate her muscles that control ankle movement PT-OP-T Assessment and Plan Start: 01/28/20 11:22 Freq: Status: Active Protocol: Document 03/22/20 14:30 SP (Rec: 03/22/20 15:41 SP [id number]) Physical Therapy Assessment Goals Four Impairment Fay is not currently engaging in a home exercise program Short Term Goal (STG) Fay is instructed in exercises and gentle stretches as we progress through therapy that she is able to do at home. STG Duration 4-8 weeks Three Impairment Pain prevents Fay from standing more than 10 min and walking > 1/4 mile Finish Rolls Operator Goal (LTG) Fay is able to increase her tolerance for standing to 30 minutes and walking 1/2 mile or greater at a time LTG Duration 8 weeks Two Impairment Limited ankle ROM creating difficulty with gait and balance activities [facility] Goal (LTG) Fay demonstrates a improved in ankle ROM by at least 5 degrees for DF/PF/INV/EVR to assist with balance and gait activities LTG Duration 8 weeks One Impairment Pain rated 6/10 in B LE Short Term Goal (STG) Fay has a reduction in pain to 4-5/10 with manual therapy and ROM exercises Jail Goal (LTG) With manual therapy techniques and a home stretching/ exercise program Fay is able to reduce her pain from 6/10 tp 2-3/10 Assessment Summary Assessment Pt responded well to tx, more movement in ankles/feet post manual. Intiated corner balance activities and glut stretch for HEP with good results and challenge safety at home to decreased tightness and progress self in balance performance. Pt reported L glut pain due to hard connective tissue, improved with added glut stretch in sitting. Physical Therapy Plan Frequency and Duration Frequency of Treatment 2x/Week Duration of Treatment 8 Plan of Care Start Date 01/28/20 Plan of Care End Date 03/24/20 Therapeutic Interventions Therapeutic Interventions Balance Training,Home Exercise Program,Manual Therapy, Neuromuscular Re-education, Patient/Caregiver Education, Self-Care/Home Management,Soft Tissue Mobilization, Therapeutic Exercises Next Visit Focus/Plan Next Note Type Treatment Note Next Visit Plan Assess respsones to last tx: manual, balance corner activity, glut stretch after TM walking. Continue per PT POC: work on soft tissue and manual work to improve circulation and tissue extensibility in the LE, ankles, and feet
--- NOTE | 2020-03-28 10:01 | PT.OPPOC ---
Physical, Occupational & Speech Therapy At [facility] Current Diagnoses Systemic sclerosis, unspecified (03/25/20) Visit Care Team Role Provider Type Timur Schwartz MD Primary Care Provider Physician Specialty: Internal Medicine Address: [address] [place] [address], [id number] Email: [email or web address] Gage Palomares DO Attending Provider Non-Staff Referring Provider Specialty: Dermatology Address: [address] [place] [address], [id number] Email: Plan Of Care PT-OP-T Assessment and Plan Start: 01/28/20 11:22 Freq: Status: Active Protocol: Document 03/22/20 14:30 SP (Rec: 03/22/20 15:41 SP [id number]) Physical Therapy Assessment Goals Four Impairment Fay is not currently engaging in a home exercise program Short Term Goal (STG) Fay is instructed in exercises and gentle stretches as we progress through therapy that she is able to do at home. STG Duration 4-8 weeks Good progress Three Impairment Pain prevents Fay from standing more than 10 min and walking > 1/4 mile Refrigerating Engineer Goal (LTG) Fay is able to increase her tolerance for standing to 30 minutes and walking 1/2 mile or greater at a time LTG Duration 8 weeks Good progress, Fay is walking 15 minutes on the treadmill Two Impairment Limited ankle ROM creating difficulty with gait and balance activities [facility] Goal (LTG) Fay demonstrates a improved in ankle ROM by at least 5 degrees for DF/PF/INV/EVR to assist with balance and gait activities LTG Duration 8 weeks Good progress One Impairment Pain rated 6/10 in B LE Short Term Goal (STG) Fay has a reduction in pain to 4-5/10 with manual therapy and ROM exercises Refrigerating Engineer Goal (LTG) With manual therapy techniques and a home stretching/ exercise program Fay is able to reduce her pain from 6/10 tp 2-3/10 Good progress Assessment Summary Assessment Pt responded well to tx, more movement in ankles/feet post manual. Intiated corner balance activities and glut stretch for HEP with good results and challenge safety at home to decreased tightness and progress self in balance performance. Pt reported L glut pain due to hard connective tissue, improved with added glut stretch in sitting. Physical Therapy Plan Frequency and Duration Frequency of Treatment 2x/Week Duration of Treatment 8 Plan of Care Start Date 01/28/20 Plan of Care End Date 03/24/20 Therapeutic Interventions Therapeutic Interventions Balance Training,Home Exercise Program,Manual Therapy, Neuromuscular Re-education, Patient/Caregiver Education, Self-Care/Home Management,Soft Tissue Mobilization, Therapeutic Exercises Next Visit Focus/Plan Next Note Type Treatment Note Next Visit Plan Assess responses to last tx: manual, balance corner activity, glut stretch after TM walking. Continue per PT POC: work on soft tissue and manual work to improve circulation and tissue extensibility in the LE, ankles, and feet Plan of Care Dates Plan of Care Start Date 01/28/20 Plan of Care End Date 03/24/20 Electronically Signed by: Nidhi Villanueva, PT 03/28/20 1001 Please Sign and Return: I have reviewed this Plan of Care and certify that the skilled therapy services above are required to meet the patient?s needs. Physician Signature Date Printed Name and Credentials Clinical Instructor Signature Printed Name and Credentials
--- NOTE | 2020-03-29 17:27 | PT.OTN ---
Current Diagnoses Systemic sclerosis, unspecified (03/31/20) Physical Therapy Treatment Note PT-OP-A Visit Information Start: 01/28/20 11:22 Freq: Status: Active Protocol: Document 03/29/20 15:15 [facility] (Rec: 03/31/20 17:26 [facility] [id number]) Out-Patient Physical Therapy Visit Information Visit Information Visit Type Treatment Note Visit Start Time 15:15 Visit Stop Time 16:00 Total Visit Minutes 45 Visit Number 10 PT-OP-B Current Condition Start: 01/28/20 11:22 Freq: Status: Active Protocol: Document 01/28/20 11:26 [facility] (Rec: 01/28/20 11:40 [facility] [id number]) Current Condition History of Current Condition Onset Date Pt has a chronic hx of scleroderma, recent flare after a CT July 08 Current Complaints painful ROM LE especially the ankles/feet,painful gait, decreased balance History of Current Condition Pt has a hisotry of scleroderma that affects her LE. This makes her legs so tight she has lost ROM in her ankles. She reports pain with walking, decresased balance and poor energy. She has been seen in PT years ago for help reducing tightness in her legs. She notes that symptms increased following a myocardial infacrtion in June of 2019. Fay reports for days before her heart attack she was having a buring pain in her chest, she was taken to the ER at [facility] and then sent to [facility]. She was transfered from [facility] to [facility] in [place]. She had 2 stents put in and then had a GI bleed. When she returned home and for awhile ( a week or two) she felt increased energy. But then it went away. Has new symptoms of psorasis and reports her legs feel very bound. Taking Consentyx the injection for Psorasis. The scleroderma in her feet and legs feels worse. She hasn't had treatment in so many years for her legs. She is taking blood thinners. SHe had been doing cardiac rehab and doing really good but had to stop due to covid 19 pandemic. She hasn't been walking as much as she had before and she reports 15-20 minutes is her walking max. Past medical history includes hx of cancer, depression, type II diabetes, dizzyness, memory loss, neuropathy, thyroid disorder, psychological disorder Treatment Goals Patient/Caregiver Goals pt reports she would like to get to 35-40 minutes of walking, other goals include balance training, strengthening, and loosening her leg muscles. Prior Functional Status Baseline Function- ADL's Independent Baseline Function- Mobility Independent Current Functional Impairments (Reported) Functional Limitations- Mobility/Gait Because of the tightness her balance is off and she feels really off balance. Standing hurts due to the leg tightnes. She notes both her feet and legs have increased pain after 10 minutes of static standing . She uses a cane for outdoor ambulation. Functional Limitations- Recreation/ limited recreational Hobbies activities due to decreased endurance and pain in her legs with activity PT-OP-C Subjective Start: 01/28/20 11:22 Freq: Status: Active Protocol: Document 03/29/20 15:15 [facility] (Rec: 03/31/20 17:26 [facility] [email or web address]) OP-PT Subjective Patient Comments Patient Comments Doing better today and has been using the ball to roll her feet out on PT-OP-F Manual Assessment Start: 01/28/20 11:22 Freq: Status: Active Protocol: Document 01/28/20 11:15 [facility] (Rec: 02/02/20 08:51 [facility] [id number]) Manual Assessments Soft Tissue Assessment Soft Tissue Mobility Assessment With examination there is scleroderma present throughout B LE. THis affects the musculature of the hips, quads /hamstrings, and anterior and posterior shins and ankles. There is poor calf flexibility , stiffened and tight plantar fascia, flexor digitorum brevis, adductor halliscus, and extensor muscles of the feet. Joint Mobility Assessment Joint Mobility Assessment very poor ankle mobility, hypomobility of the ankle in all planes PT-OP-J Posture/Palpation/Skin Start: 01/28/20 11:22 Freq: Status: Active Protocol: Document 01/28/20 11:15 [facility] (Rec: 02/02/20 12:33 [facility] [id number]) Palpation Assessment Location Two Palpation Location tibialis anterior Palpation Findings Soft Tissue Tightness Palpation Details scar tissue tightness throughout the muscle belly with limited ankle ROM into DF plantar fascia Palpation Location plantar fascia Palpation Findings Soft Tissue Tightness, Tenderness Palpation Details Very little flexibility from the plantar fascia due to tightness and limited ankle ROM One Palpation Location calf musculature B Palpation Findings Soft Tissue Tightness Palpation Details scar tissue noted throughout the muscular wall of the gastrocnemius and soleus musculature due to scleroderma PT-OP-K Range of Motion Start: 01/28/20 11:22 Freq: Status: Active Protocol: Document 01/28/20 11:15 [facility] (Rec: 02/02/20 08:58 [facility] [id number]) Hip Goniometric Range of Motion Hip Right Hip ROM WFL No Testing Position Supine Flexion w/Knee Flexed 105 Straight Leg Raise 45 External Rotation 15 Left Hip ROM WFL No Testing Position Supine Flexion w/Knee Flexed 100 Straight Leg Raise 40 External Rotation 15 Ankle and Foot Goniometric Range of Motion Ankle and Foot Right Ankle/Foot ROM WFL No Testing Position Supine Dorsiflexion with Knee Flexed 5 Dorsiflexion with Knee Extended 2 Plantarflexion 5 Inversion 5 Eversion 5 Left Ankle/Foot ROM WFL No Testing Position Supine Dorsiflexion with Knee Flexed 5 Dorsiflexion with Knee Extended 2 Plantarflexion 5 Inversion 5 Eversion 5 Ankle and Foot ROM Limitations ROM Limitations Soft Tissue Tightness, Contracture Comments pt is so tight in the musculature surrounding her ankles and feet due to scleroderma that she has very poor AROM and PROM. I was able to gain af few degrees today following manual therapy work PT-OP-M Strength Start: 01/28/20 11:22 Freq: Status: Active Protocol: Document 01/28/20 11:15 [facility] (Rec: 02/02/20 12:26 [facility] [id number]) Hip Strength Hip Manual Muscle Testing Right Flexion (L2) 3+ Fair+ Extension (S1) 3 Fair Abduction 3+ Fair+ Adduction 3+ Fair+ External Rotation 3 Fair Left Flexion (L2) 3+ Fair+ Abduction 3+ Fair+ Adduction 3+ Fair+ External Rotation 3 Fair Ankle/Foot Strength Ankle and Foot Manual Muscle Testing Right Dorsiflexion (L4) 2+ Poor+ Plantarflexion (S1) 2+ Poor+ Inversion 2+ Poor+ Eversion (S1) 2+ Poor+ Left Dorsiflexion (L4) 2 Poor Plantarflexion (S1) 2+ Poor+ Inversion 2+ Poor+ Eversion (S1) 2+ Poor+ Comments Limited ankle ROM makes it very difficult for Fay to activate her muscles that control ankle movement PT-OP-Q Treatments Start: 01/28/20 11:22 Freq: Status: Active Protocol: Document 03/29/20 15:15 [facility] (Rec: 03/31/20 17:26 [facility] [id number]) Manual Therapy Treatment Soft Tissue Mobilization 1 Body Location B anterior and posterior shins /feet Mobilization Type Myofascial Release Intensity/Depth Superficial Body Position long sitting (rolled towel under B ischial tuberosities) Comments MFR was performed to B anterior and posterior shins and feet, PROM was performed at the ankles and feet Manual Techniques 2 Type manual stretching for the gastroc/soleus complex Body Position Supine 1 Type PROM stretches were performed at B ankles and feet, manual stretching Body Location B PF/ DF Body Position Supine Comments Good tolerance for ROM and manual stretching PT-OP-R Modalities Start: 02/24/20 15:25 Freq: Status: Active Protocol: Document 03/25/20 13:46 [facility] (Rec: 03/29/20 11:58 [facility] [id number]) Hot Pack/Cold Pack Treatment Hot Pack Location R shld Patient Position Sitting Treatment Duration (minutes) 10 Patient Tolerance Good Comments decreased in discomfort anterior R shld end of tx. PT-OP-T Assessment and Plan Start: 01/28/20 11:22 Freq: Status: Active Protocol: Document 03/29/20 15:15 [facility] (Rec: 03/31/20 17:26 [facility] [id number]) Physical Therapy Assessment Assessment Summary Assessment improving ankle ROM following treatment. Pt doing well with cardiac rehab as well and feeling like her endurance is improving Physical Therapy Plan Frequency and Duration Frequency of Treatment 2x/Week Duration of Treatment 8 Plan of Care Start Date 03/24/20 Plan of Care End Date 05/19/20
--- NOTE | 2020-03-31 17:34 | PT.OTN ---
Current Diagnoses Systemic sclerosis, unspecified (03/31/20) Physical Therapy Treatment Note PT-OP-A Visit Information Start: 01/28/20 11:22 Freq: Status: Active Protocol: Document 03/31/20 17:27 [facility] (Rec: 03/31/20 17:34 [facility] [email or web address]) Out-Patient Physical Therapy Visit Information Visit Information Visit Type Treatment Note Visit Start Time 16:00 Visit Stop Time 16:55 Total Visit Minutes 55 Visit Number 12 Number of MANAGER INTERVENTIONAL Visits 0 PT-OP-B Current Condition Start: 01/28/20 11:22 Freq: Status: Active Protocol: Document 01/28/20 11:26 [facility] (Rec: 01/28/20 11:40 [facility] [id number]) Current Condition History of Current Condition Onset Date Pt has a chronic hx of scleroderma, recent flare after a PR July 08 Current Complaints painful ROM LE especially the ankles/feet,painful gait, decreased balance History of Current Condition Pt has a hisotry of scleroderma that affects her LE. This makes her legs so tight she has lost ROM in her ankles. She reports pain with walking, decresased balance and poor energy. She has been seen in PT years ago for help reducing tightness in her legs. She notes that symptms increased following a myocardial infacrtion in June of 2019. Fay reports for days before her heart attack she was having a buring pain in her chest, she [facility] to [facility] in [place]. She had 2 stents put in and then had a GI bleed. When she returned home and for awhile ( a week or two) she felt increased energy. But then it went away. Has new symptoms of psorasis and reports her legs feel very bound. Taking Consentyx the injection for Psorasis. The scleroderma in her feet and legs feels worse. She hasn't had treatment in so many years for her legs. She is taking blood thinners. SHe had been doing cardiac rehab and doing really good but had to stop due to covid 19 pandemic. She hasn't been walking as much as she had before and she reports 15-20 minutes is her walking max. Past medical history includes hx of cancer, depression, type II diabetes, dizzyness, memory loss, neuropathy, thyroid disorder, psychological disorder Treatment Goals Patient/Caregiver Goals pt reports she would like to get to 35-40 minutes of walking, other goals include balance training, strengthening, and loosening her leg muscles. Prior Functional Status Baseline Function- ADL's Independent Baseline Function- Mobility Independent Current Functional Impairments (Reported) Functional Limitations- Mobility/Gait Because of the tightness her balance is off and she feels really off balance. Standing hurts due to the leg tightnes. She notes both her feet and legs have increased pain after 10 minutes of static standing . She uses a cane for outdoor ambulation. Functional Limitations- Recreation/ limited recreational Hobbies activities due to decreased endurance and pain in her legs with activity PT-OP-C Subjective Start: 01/28/20 11:22 Freq: Status: Active Protocol: Document 03/31/20 17:27 [facility] (Rec: 03/31/20 17:34 [facility] [email or web address]) OP-PT Subjective Patient Comments Patient Comments Pt states she did cardiac rehab today and got it moved to the 2:30 time spot so can go right before PT. She still wants to try and do the treadmill after therapy apt. today. PT-OP-F Manual Assessment Start: 01/28/20 11:22 Freq: Status: Active Protocol: Document 01/28/20 11:15 [facility] (Rec: 02/02/20 08:51 [facility] [id number]) Manual Assessments Soft Tissue Assessment Soft Tissue Mobility Assessment With examination there is scleroderma present throughout B LE. THis affects the musculature of the hips, quads /hamstrings, and anterior and posterior shins and ankles. There is poor calf flexibility , stiffened and tight plantar fascia, flexor digitorum brevis, adductor halliscus, and extensor muscles of the feet. Joint Mobility Assessment Joint Mobility Assessment very poor ankle mobility, hypomobility of the ankle in all planes PT-OP-J Posture/Palpation/Skin Start: 01/28/20 11:22 Freq: Status: Active Protocol: Document 01/28/20 11:15 [facility] (Rec: 02/02/20 12:33 [facility] [id number]) Palpation Assessment Location Two Palpation Location tibialis anterior Palpation Findings Soft Tissue Tightness Palpation Details scar tissue tightness throughout the muscle belly with limited ankle ROM into DF plantar fascia Palpation Location plantar fascia Palpation Findings Soft Tissue Tightness, Tenderness Palpation Details Very little flexibility from the plantar fascia due to tightness and limited ankle ROM One Palpation Location calf musculature B Palpation Findings Soft Tissue Tightness Palpation Details scar tissue noted throughout the muscular wall of the gastrocnemius and soleus musculature due to scleroderma PT-OP-K Range of Motion Start: 01/28/20 11:22 Freq: Status: Active Protocol: Document 01/28/20 11:15 [facility] (Rec: 02/02/20 08:58 [facility] [id number]) Hip Goniometric Range of Motion Hip Right Hip ROM WFL No Testing Position Supine Flexion w/Knee Flexed 105 Straight Leg Raise 45 External Rotation 15 Left Hip ROM WFL No Testing Position Supine Flexion w/Knee Flexed 100 Straight Leg Raise 40 External Rotation 15 Ankle and Foot Goniometric Range of Motion Ankle and Foot Right Ankle/Foot ROM WFL No Testing Position Supine Dorsiflexion with Knee Flexed 5 Dorsiflexion with Knee Extended 2 Plantarflexion 5 Inversion 5 Eversion 5 Left Ankle/Foot ROM WFL No Testing Position Supine Dorsiflexion with Knee Flexed 5 Dorsiflexion with Knee Extended 2 Plantarflexion 5 Inversion 5 Eversion 5 Ankle and Foot ROM Limitations ROM Limitations Soft Tissue Tightness, Contracture Comments pt is so tight in the musculature surrounding her ankles and feet due to scleroderma that she has very poor AROM and PROM. I was able to gain af few degrees today following manual therapy work PT-OP-M Strength Start: 01/28/20 11:22 Freq: Status: Active Protocol: Document 01/28/20 11:15 [facility] (Rec: 02/02/20 12:26 [facility] [id number]) Hip Strength Hip Manual Muscle Testing Right Flexion (L2) 3+ Fair+ Extension (S1) 3 Fair Abduction 3+ Fair+ Adduction 3+ Fair+ External Rotation 3 Fair Left Flexion (L2) 3+ Fair+ Abduction 3+ Fair+ Adduction 3+ Fair+ External Rotation 3 Fair Ankle/Foot Strength Ankle and Foot Manual Muscle Testing Right Dorsiflexion (L4) 2+ Poor+ Plantarflexion (S1) 2+ Poor+ Inversion 2+ Poor+ Eversion (S1) 2+ Poor+ Left Dorsiflexion (L4) 2 Poor Plantarflexion (S1) 2+ Poor+ Inversion 2+ Poor+ Eversion (S1) 2+ Poor+ Comments Limited ankle ROM makes it very difficult for Fay to activate her muscles that control ankle movement PT-OP-Q Treatments Start: 01/28/20 11:22 Freq: Status: Active Protocol: Document 03/31/20 17:27 [facility] (Rec: 03/31/20 17:34 [facility] [id number]) Cardio Equipment Treadmill Duration (Minutes) 16 Speed 1.5 Incline .5 Other intermittent no UE support Manual Therapy Treatment Soft Tissue Mobilization B patellar tendon Body Location B Mobilization Type Cross-Friction Intensity/Depth Moderate Body Position Sitting Comments Long sitting 1 Body Location B anterior and posterior shins /feet Mobilization Type Myofascial Release Intensity/Depth Superficial Body Position long sitting (rolled towel under B ischial tuberosities) Comments MFR was performed to B anterior and posterior shins and feet, PROM was performed at the ankles and feet Manual Techniques 2 Type manual stretching for the gastroc/soleus complex Body Position Supine 1 Type PROM stretches were performed at B ankles and feet, manual stretching Body Location B PF/ DF Body Position Supine Comments Good tolerance for ROM and manual stretching PT-OP-R Modalities Start: 02/24/20 15:25 Freq: Status: Active Protocol: Document 03/25/20 13:46 [facility] (Rec: 03/29/20 11:58 [facility] [id number]) Hot Pack/Cold Pack Treatment Hot Pack Location R shld Patient Position Sitting Treatment Duration (minutes) 10 Patient Tolerance Good Comments decreased in discomfort anterior R shld end of tx. PT-OP-T Assessment and Plan Start: 01/28/20 11:22 Freq: Status: Active Protocol: Document 03/31/20 17:27 [facility] (Rec: 03/31/20 17:34 [facility] [email or web address]) Physical Therapy Assessment Assessment Summary Assessment Fay is making good progress with endurance for gait. She ambulated x 16 minutes today and had done cardiac rehab prior to PT. Her goal is to be able to walk with her friends and not feel so wobbley Physical Therapy Plan Frequency and Duration Frequency of Treatment 2x/Week Duration of Treatment 8 Plan of Care Start Date 03/24/20 Plan of Care End Date 05/19/20
--- NOTE | 2020-04-05 15:22 | PT.OTN ---
Current Diagnoses Systemic sclerosis, unspecified (04/05/20) Physical Therapy Treatment Note PT-OP-A Visit Information Start: 01/28/20 11:22 Freq: Status: Active Protocol: Document 04/05/20 14:30 SP (Rec: 04/05/20 15:37 SP [id number]) Out-Patient Physical Therapy Visit Information Visit Information Visit Type Treatment Note Visit Start Time 14:30 Visit Stop Time 15:23 Total Visit Minutes 53 Visit Number 13 Number of GRAVURE PRESS SET UP OPERATOR Visits 1 PT-OP-B Current Condition Start: 01/28/20 11:22 Freq: Status: Active Protocol: Document 01/28/20 11:26 AMH (Rec: 01/28/20 11:40 AMH [id number]) Current Condition History of Current Condition Onset Date Pt has a chronic hx of scleroderma, recent flare after a CT July 08 Current Complaints painful ROM LE especially the ankles/feet,painful gait, decreased balance History of Current Condition Pt has a hisotry of scleroderma that affects her LE. This makes her legs so tight she has lost ROM in her ankles. She reports pain with walking, decresased balance and poor energy. She has been seen in PT years ago for help reducing tightness in her legs. She notes that symptms increased following a myocardial infacrtion in June of 2019. Fay reports for days before her heart attack she was having a buring pain in her chest, she was taken to the ER at [facility] and then sent to [facility]. She was transfered from [facility] to [facility] in [place]. She had 2 stents put in and then had a GI bleed. When she returned home and for awhile ( a week or two) she felt increased energy. But then it went away. Has new symptoms of psorasis and reports her legs feel very bound. Taking Consentyx the injection for Psorasis. The scleroderma in her feet and legs feels worse. She hasn't had treatment in so many years for her legs. She is taking blood thinners. SHe had been doing cardiac rehab and doing really good but had to stop due to covid 19 pandemic. She hasn't been walking as much as she had before and she reports 15-20 minutes is her walking max. Past medical history includes hx of cancer, depression, type II diabetes, dizzyness, memory loss, neuropathy, thyroid disorder, psychological disorder Treatment Goals Patient/Caregiver Goals pt reports she would like to get to 35-40 minutes of walking, other goals include balance training, strengthening, and loosening her leg muscles. Prior Functional Status Baseline Function- ADL's Independent Baseline Function- Mobility Independent Current Functional Impairments (Reported) Functional Limitations- Mobility/Gait Because of the tightness her balance is off and she feels really off balance. Standing hurts due to the leg tightnes. She notes both her feet and legs have increased pain after 10 minutes of static standing . She uses a cane for outdoor ambulation. Functional Limitations- Recreation/ limited recreational Hobbies activities due to decreased endurance and pain in her legs with activity PT-OP-C Subjective Start: 01/28/20 11:22 Freq: Status: Active Protocol: Document 04/05/20 14:30 SP (Rec: 04/05/20 15:37 SP [id number]) OP-PT Subjective Patient Comments Patient Comments Pt reported falling over bent over while cleaning the tile next to gas stove and lost balance. Has more energy with new antidepressant but has been feeling unstable more lately. Would like to address what can do at home to help balance improve. PT-OP-F Manual Assessment Start: 01/28/20 11:22 Freq: Status: Active Protocol: Document 01/28/20 11:15 AMH (Rec: 02/02/20 08:51 AMH [id number]) Manual Assessments Soft Tissue Assessment Soft Tissue Mobility Assessment With examination there is scleroderma present throughout B LE. THis affects the musculature of the hips, quads /hamstrings, and anterior and posterior shins and ankles. There is poor calf flexibility , stiffened and tight plantar fascia, flexor digitorum brevis, adductor halliscus, and extensor muscles of the feet. Joint Mobility Assessment Joint Mobility Assessment very poor ankle mobility, hypomobility of the ankle in all planes PT-OP-J Posture/Palpation/Skin Start: 01/28/20 11:22 Freq: Status: Active Protocol: Document 01/28/20 11:15 AMH (Rec: 02/02/20 12:33 AMH [id number]) Palpation Assessment Location Two Palpation Location tibialis anterior Palpation Findings Soft Tissue Tightness Palpation Details scar tissue tightness throughout the muscle belly with limited ankle ROM into DF plantar fascia Palpation Location plantar fascia Palpation Findings Soft Tissue Tightness, Tenderness Palpation Details Very little flexibility from the plantar fascia due to tightness and limited ankle ROM One Palpation Location calf musculature B Palpation Findings Soft Tissue Tightness Palpation Details scar tissue noted throughout the muscular wall of the gastrocnemius and soleus musculature due to scleroderma PT-OP-K Range of Motion Start: 01/28/20 11:22 Freq: Status: Active Protocol: Document 01/28/20 11:15 AMH (Rec: 02/02/20 08:58 AMH [id number]) Hip Goniometric Range of Motion Hip Right Hip ROM WFL No Testing Position Supine Flexion w/Knee Flexed 105 Straight Leg Raise 45 External Rotation 15 Left Hip ROM WFL No Testing Position Supine Flexion w/Knee Flexed 100 Straight Leg Raise 40 External Rotation 15 Ankle and Foot Goniometric Range of Motion Ankle and Foot Right Ankle/Foot ROM WFL No Testing Position Supine Dorsiflexion with Knee Flexed 5 Dorsiflexion with Knee Extended 2 Plantarflexion 5 Inversion 5 Eversion 5 Left Ankle/Foot ROM WFL No Testing Position Supine Dorsiflexion with Knee Flexed 5 Dorsiflexion with Knee Extended 2 Plantarflexion 5 Inversion 5 Eversion 5 Ankle and Foot ROM Limitations ROM Limitations Soft Tissue Tightness, Contracture Comments pt is so tight in the musculature surrounding her ankles and feet due to scleroderma that she has very poor AROM and PROM. I was able to gain af few degrees today following manual therapy work PT-OP-M Strength Start: 01/28/20 11:22 Freq: Status: Active Protocol: Document 01/28/20 11:15 AMH (Rec: 02/02/20 12:26 AMH [id number]) Hip Strength Hip Manual Muscle Testing Right Flexion (L2) 3+ Fair+ Extension (S1) 3 Fair Abduction 3+ Fair+ Adduction 3+ Fair+ External Rotation 3 Fair Left Flexion (L2) 3+ Fair+ Abduction 3+ Fair+ Adduction 3+ Fair+ External Rotation 3 Fair Ankle/Foot Strength Ankle and Foot Manual Muscle Testing Right Dorsiflexion (L4) 2+ Poor+ Plantarflexion (S1) 2+ Poor+ Inversion 2+ Poor+ Eversion (S1) 2+ Poor+ Left Dorsiflexion (L4) 2 Poor Plantarflexion (S1) 2+ Poor+ Inversion 2+ Poor+ Eversion (S1) 2+ Poor+ Comments Limited ankle ROM makes it very difficult for Fay to activate her muscles that control ankle movement PT-OP-Q Treatments Start: 01/28/20 11:22 Freq: Status: Active Protocol: Document 04/05/20 14:30 SP (Rec: 04/05/20 15:37 SP [id number]) Cardio Equipment Treadmill Duration (Minutes) 6 Speed .8- 1.5 Incline 0 Other R UE support (stopped due to nausea) Therapeutic Exercises Standing Exercises step up/ downs Side bilateral Equipment Used L HR Reps/Minutes x5 leading R and L ankle mobility/anterior hip stretch Resistance AROM Equipment Used 2 nd step, L HR Reps/Minutes x5 calf raises Standing Exercise Name eccentric directioning Side bilateral Equipment Used 4 step, L HR Reps/Minutes 2x5 pause at end feel PT-OP-R Modalities Start: 02/24/20 15:25 Freq: Status: Active Protocol: Document 03/25/20 13:46 SP (Rec: 03/29/20 11:58 SP [id number]) Hot Pack/Cold Pack Treatment Hot Pack Location R shld Patient Position Sitting Treatment Duration (minutes) 10 Patient Tolerance Good Comments decreased in discomfort anterior R shld end of tx. PT-OP-T Assessment and Plan Start: 01/28/20 11:22 Freq: Status: Active Protocol: Document 04/05/20 14:30 SP (Rec: 04/05/20 15:37 SP [id number]) Physical Therapy Assessment Goals Four Impairment Fay is not currently engaging in a home exercise program Short Term Goal (STG) Fay is instructed in exercises and gentle stretches as we progress through therapy that she is able to do at home. Fay is now working on a home stretching program for her LE and feet. She has also started cardiac rehab along with PT STG Duration 4-8 weeks Three Impairment Pain prevents Fay from standing more than 10 min and walking > 1/4 mile Halfway Goal (LTG) Fay is able to increase her tolerance for standing to 30 minutes and walking 1/2 mile or greater at a time Fay has been working on increasing her time walking . She has been able to walk on the treadmill in the clinic for 15 minutes LTG Duration 8 weeks Two Impairment Limited ankle ROM creating difficulty with gait and balance activities Halfway Goal (LTG) Fay demonstrates a improved in ankle ROM by at least 5 degrees for DF/PF/INV/EVR to assist with balance and gait activities Some progress LTG Duration 8 weeks One Impairment Pain rated 6/10 in B LE Short Term Goal (STG) Fay has a reduction in pain to 4-5/10 with manual therapy and ROM exercises Halfway Goal (LTG) With manual therapy techniques and a home stretching/ exercise program Fay is able to reduce her pain from 6/10 tp 2-3/10 Some progress Assessment Summary Assessment Pt decreased strength and endurance today on TM only completed 6/10 minutes feeling little nausious during standing activity but want to participate. Assessed blood sugar 180 and wanting to know what her weight was feeling bloated at 142 lbs, less than expected. Pt improved in mobiltiy and good tolerance to new standing exercises added today using rail for support. Next tx add seated SB and or supine core strengthening, has sat on ball in cardiorehab in past, has SB at home and trial shuttle balance. Educated patient importance of hydration during the day, she stated hasn't been drinking alot of liquids and hasn't drank the 30 ml of lactilose as supposed to 2x daily and why feeling more fuzzy. Told her if doesn't improve to contact physician for further assessment. Does have a telecommunications network engineer appt coming up soon to assess shoes and padding for B feet. Physical Therapy Plan Frequency and Duration Frequency of Treatment 2x/Week Duration of Treatment 8 Plan of Care Start Date 03/24/20 Plan of Care End Date 05/19/20 Therapeutic Interventions Therapeutic Interventions Balance Training,Home Exercise Program,Manual Therapy, Neuromuscular Re-education, Patient/Caregiver Education, Self-Care/Home Management,Soft Tissue Mobilization, Therapeutic Exercises Next Visit Focus/Plan Next Note Type Treatment Note Next Visit Plan Assess respsones to last tx: Manual, eccentric calf raises, ankle mobilty, step ups. Continue per PT POC: work on soft tissue and manual work to improve circulation and tissue extensibility in the LE, ankles, and feet
--- NOTE | 2020-04-07 15:25 | PT.OTN ---
Current Diagnoses Systemic sclerosis, unspecified (04/07/20) Physical Therapy Treatment Note PT-OP-A Visit Information Start: 01/28/20 11:22 Freq: Status: Active Protocol: Document 04/07/20 14:35 SP (Rec: 04/07/20 15:48 SP [id number]) Out-Patient Physical Therapy Visit Information Visit Information Visit Type Treatment Note Visit Note Pt 5 min late for appt today. Visit Start Time 14:35 Visit Stop Time 15:25 Total Visit Minutes 50 Visit Number 14 Number of MID LEVEL PROVIDER Visits 2 PT-OP-B Current Condition Start: 01/28/20 11:22 Freq: Status: Active Protocol: Document 01/28/20 11:26 AMH (Rec: 01/28/20 11:40 AMH [id number]) Current Condition History of Current Condition Onset Date Pt has a chronic hx of scleroderma, recent flare after a [place] July 08 Current Complaints painful ROM LE especially the ankles/feet,painful gait, decreased balance History of Current Condition Pt has a hisotry of scleroderma that affects her LE. This makes her legs so tight she has lost ROM in her ankles. She reports pain with walking, decresased balance and poor energy. She has been seen in PT years ago for help reducing tightness in her legs. She notes that symptms increased following a myocardial infacrtion in June of 2019. Fay reports for days before her heart attack she was having a buring pain in her chest, she was taken to the ER at [facility] and then sent to [facility] She was transfered from [facility] to [facility] in [place]. She had 2 stents put in and then had a GI bleed. When she returned home and for awhile ( a week or two) she felt increased energy. But then it went away. Has new symptoms of psorasis and reports her legs feel very bound. Taking Consentyx the injection for Psorasis. The scleroderma in her feet and legs feels worse. She hasn't had treatment in so many years for her legs. She is taking blood thinners. SHe had been doing cardiac rehab and doing really good but had to stop due to covid 19 pandemic. She hasn't been walking as much as she had before and she reports 15-20 minutes is her walking max. Past medical history includes hx of cancer, depression, type II diabetes, dizzyness, memory loss, neuropathy, thyroid disorder, psychological disorder Treatment Goals Patient/Caregiver Goals pt reports she would like to get to 35-40 minutes of walking, other goals include balance training, strengthening, and loosening her leg muscles. Prior Functional Status Baseline Function- ADL's Independent Baseline Function- Mobility Independent Current Functional Impairments (Reported) Functional Limitations- Mobility/Gait Because of the tightness her balance is off and she feels really off balance. Standing hurts due to the leg tightnes. She notes both her feet and legs have increased pain after 10 minutes of static standing . She uses a cane for outdoor ambulation. Functional Limitations- Recreation/ limited recreational Hobbies activities due to decreased endurance and pain in her legs with activity PT-OP-C Subjective Start: 01/28/20 11:22 Freq: Status: Active Protocol: Document 04/07/20 14:35 SP (Rec: 04/07/20 15:48 SP [id number]) OP-PT Subjective Patient Comments Patient Comments Pt reported tired, little dizzy and fatigued today. Did not attend cardio rehab this am. Pt stated has been conscious of drinking more water since discussed last tx. Pt tolerated manual and little shaky with initiation of shuttle balance wt shifts but no adverse affects, little SOB but improve with cuing for relaxed shoulders and UE contact for safety and self correction and decreased tension in BLE. Assessed vitals end of tx: BP 142/70, HR 76, SaO2 97% RA, blood sugar (taken by pt) 112. Pt reported has multiple calls into Dr Dyson, floor worker to assess more how feeling but haven't heard back. Saw orchard pruner for nail care but forgot to ask about cushioning feet, although has a prescription to see an wildland fire fighter specialist for reassessment, I keep forgetting to call, even with notes I give my self, lose them. PT-OP-F Manual Assessment Start: 01/28/20 11:22 Freq: Status: Active Protocol: Document 01/28/20 11:15 AMH (Rec: 02/02/20 08:51 AMH [id number]) Manual Assessments Soft Tissue Assessment Soft Tissue Mobility Assessment With examination there is scleroderma present throughout B LE. THis affects the musculature of the hips, quads /hamstrings, and anterior and posterior shins and ankles. There is poor calf flexibility , stiffened and tight plantar fascia, flexor digitorum brevis, adductor halliscus, and extensor muscles of the feet. Joint Mobility Assessment Joint Mobility Assessment very poor ankle mobility, hypomobility of the ankle in all planes PT-OP-J Posture/Palpation/Skin Start: 01/28/20 11:22 Freq: Status: Active Protocol: Document 01/28/20 11:15 AMH (Rec: 02/02/20 12:33 [facility] [id number]) Palpation Assessment Location Two Palpation Location tibialis anterior Palpation Findings Soft Tissue Tightness Palpation Details scar tissue tightness throughout the muscle belly with limited ankle ROM into DF plantar fascia Palpation Location plantar fascia Palpation Findings Soft Tissue Tightness, Tenderness Palpation Details Very little flexibility from the plantar fascia due to tightness and limited ankle ROM One Palpation Location calf musculature B Palpation Findings Soft Tissue Tightness Palpation Details scar tissue noted throughout the muscular wall of the gastrocnemius and soleus musculature due to scleroderma PT-OP-K Range of Motion Start: 01/28/20 11:22 Freq: Status: Active Protocol: Document 01/28/20 11:15 AMH (Rec: 02/02/20 08:58 AMH [id number]) Hip Goniometric Range of Motion Hip Right Hip ROM WFL No Testing Position Supine Flexion w/Knee Flexed 105 Straight Leg Raise 45 External Rotation 15 Left Hip ROM WFL No Testing Position Supine Flexion w/Knee Flexed 100 Straight Leg Raise 40 External Rotation 15 Ankle and Foot Goniometric Range of Motion Ankle and Foot Right Ankle/Foot ROM WFL No Testing Position Supine Dorsiflexion with Knee Flexed 5 Dorsiflexion with Knee Extended 2 Plantarflexion 5 Inversion 5 Eversion 5 Left Ankle/Foot ROM WFL No Testing Position Supine Dorsiflexion with Knee Flexed 5 Dorsiflexion with Knee Extended 2 Plantarflexion 5 Inversion 5 Eversion 5 Ankle and Foot ROM Limitations ROM Limitations Soft Tissue Tightness, Contracture Comments pt is so tight in the musculature surrounding her ankles and feet due to scleroderma that she has very poor AROM and PROM. I was able to gain af few degrees today following manual therapy work PT-OP-M Strength Start: 01/28/20 11:22 Freq: Status: Active Protocol: Document 01/28/20 11:15 AMH (Rec: 02/02/20 12:26 AMH [id number]) Hip Strength Hip Manual Muscle Testing Right Flexion (L2) 3+ Fair+ Extension (S1) 3 Fair Abduction 3+ Fair+ Adduction 3+ Fair+ External Rotation 3 Fair Left Flexion (L2) 3+ Fair+ Abduction 3+ Fair+ Adduction 3+ Fair+ External Rotation 3 Fair Ankle/Foot Strength Ankle and Foot Manual Muscle Testing Right Dorsiflexion (L4) 2+ Poor+ Plantarflexion (S1) 2+ Poor+ Inversion 2+ Poor+ Eversion (S1) 2+ Poor+ Left Dorsiflexion (L4) 2 Poor Plantarflexion (S1) 2+ Poor+ Inversion 2+ Poor+ Eversion (S1) 2+ Poor+ Comments Limited ankle ROM makes it very difficult for Fay to activate her muscles that control ankle movement PT-OP-Q Treatments Start: 01/28/20 11:22 Freq: Status: Active Protocol: Document 04/07/20 14:35 SP (Rec: 04/07/20 15:48 SP [id number]) Therapeutic Exercises Standing Exercises ankle mobility/anterior hip stretch Side bilateral Resistance AROM Equipment Used 2 nd step, L HR Reps/Minutes x5 calf raises Standing Exercise Name eccentric directioning Side bilateral Equipment Used 4 step, L HR Reps/Minutes 2x5 pause at end feel Manual Therapy Treatment Soft Tissue Mobilization B patellar tendon Body Location B Mobilization Type Cross-Friction Intensity/Depth Moderate Body Position Sitting Comments Long sitting Joint Mobilizations Patella mobes Joint B Direction med/lat/sup/inf Grade II Body Position Sitting Comments Long sitting I feel like can breath better post. Manual Techniques 2 Type manual stretching for the gastroc/soleus complex Body Position Supine 1 Type PROM stretches were performed at B ankles and feet, manual stretching Body Location B PF/ DF Body Position Supine Comments Good tolerance for ROM and manual stretching PT-OP-R Modalities Start: 02/24/20 15:25 Freq: Status: Active Protocol: Document 03/25/20 13:46 SP (Rec: 03/29/20 11:58 SP [id number]) Hot Pack/Cold Pack Treatment Hot Pack Location R shld Patient Position Sitting Treatment Duration (minutes) 10 Patient Tolerance Good Comments decreased in discomfort anterior R shld end of tx. PT-OP-T Assessment and Plan Start: 01/28/20 11:22 Freq: Status: Active Protocol: Document 04/07/20 14:35 SP (Rec: 04/07/20 15:48 SP [id number]) Physical Therapy Assessment Goals Four Impairment Fay is not currently engaging in a home exercise program Short Term Goal (STG) Fay is instructed in exercises and gentle stretches as we progress through therapy that she is able to do at home. Fay is now working on a home stretching program for her LE and feet. She has also started cardiac rehab along with PT STG Duration 4-8 weeks Three Impairment Pain prevents Fay from standing more than 10 min and walking > 1/4 mile Handle Machine Operator Goal (LTG) Fay is able to increase her tolerance for standing to 30 minutes and walking 1/2 mile or greater at a time Fay has been working on increasing her time walking . She has been able to walk on the treadmill in the clinic for 15 minutes LTG Duration 8 weeks Two Impairment Limited ankle ROM creating difficulty with gait and balance activities Handle Machine Operator Goal (LTG) Fay demonstrates a improved in ankle ROM by at least 5 degrees for DF/PF/INV/EVR to assist with balance and gait activities Some progress LTG Duration 8 weeks One Impairment Pain rated 6/10 in B LE Short Term Goal (STG) Fay has a reduction in pain to 4-5/10 with manual therapy and ROM exercises Handle Machine Operator Goal (LTG) With manual therapy techniques and a home stretching/ exercise program Fay is able to reduce her pain from 6/10 tp 2-3/10 Some progress Assessment Summary Assessment Pt decreased activity tolerance and strength today. Assessed vitals post activity today, see subjective for details. Pt experienced little SOB end of tx. Pt expressed concerns of decreased activity tolerance today, is actively contacting her physician to follow up and discuss further. Will continue to assess vitals pre and post activity future tx for safety. Physical Therapy Plan Frequency and Duration Frequency of Treatment 2x/Week Duration of Treatment 8 Plan of Care Start Date 03/24/20 Plan of Care End Date 05/19/20 Therapeutic Interventions Therapeutic Interventions Balance Training,Home Exercise Program,Manual Therapy, Neuromuscular Re-education, Patient/Caregiver Education, Self-Care/Home Management,Soft Tissue Mobilization, Therapeutic Exercises Next Visit Focus/Plan Next Note Type Treatment Note Next Visit Plan Assess respsones to last tx: Manual, eccentric calf raises, ankle mobilty, shuttle balance, assessed vitals (see subjective). Continue per PT POC: work on soft tissue and manual work to improve circulation and tissue extensibility in the LE, ankles, and feet
--- NOTE | 2020-04-13 09:53 | PT.OTN ---
Current Diagnoses Systemic sclerosis, unspecified (04/12/20) Physical Therapy Treatment Note PT-OP-A Visit Information Start: 01/28/20 11:22 Freq: Status: Active Protocol: Document 04/12/20 14:30 [facility] (Rec: 04/13/20 09:53 [facility] [id number]) Out-Patient Physical Therapy Visit Information Visit Information Visit Type Treatment Note Visit Start Time 14:30 Visit Stop Time 15:20 Total Visit Minutes 50 Visit Number 15 Number of PLUG AND MOLD FINISHER Visits 3 PT-OP-B Current Condition Start: 01/28/20 11:22 Freq: Status: Active Protocol: Document 01/28/20 11:26 [facility] (Rec: 01/28/20 11:40 [facility] [id number]) Current Condition History of Current Condition Onset Date Pt has a chronic hx of scleroderma, recent flare after a [place] July 08 Current Complaints painful ROM LE especially the ankles/feet,painful gait, decreased balance History of Current Condition Pt has a hisotry of scleroderma that affects her LE. This makes her legs so tight she has lost ROM in her ankles. She reports pain with walking, decresased balance and poor energy. She has been seen in PT years ago for help reducing tightness in her legs. She notes that symptms increased following a myocardial infacrtion in June of 2019. Fay reports for days before her heart attack she was having a buring pain in her chest, she was taken to the ER at [facility] and then sent to [facility]. She was transfered from [facility] to [facility] in [place]. She had 2 stents put in and then had a GI bleed. When she returned home and for awhile ( a week or two) she felt increased energy. But then it went away. Has new symptoms of psorasis and reports her legs feel very bound. Taking Consentyx the injection for Psorasis. The scleroderma in her feet and legs feels worse. She hasn't had treatment in so many years for her legs. She is taking blood thinners. SHe had been doing cardiac rehab and doing really good but had to stop due to covid 19 pandemic. She hasn't been walking as much as she had before and she reports 15-20 minutes is her walking max. Past medical history includes hx of cancer, depression, type II diabetes, dizzyness, memory loss, neuropathy, thyroid disorder, psychological disorder Treatment Goals Patient/Caregiver Goals pt reports she would like to get to 35-40 minutes of walking, other goals include balance training, strengthening, and loosening her leg muscles. Prior Functional Status Baseline Function- ADL's Independent Baseline Function- Mobility Independent Current Functional Impairments (Reported) Functional Limitations- Mobility/Gait Because of the tightness her balance is off and she feels really off balance. Standing hurts due to the leg tightnes. She notes both her feet and legs have increased pain after 10 minutes of static standing . She uses a cane for outdoor ambulation. Functional Limitations- Recreation/ limited recreational Hobbies activities due to decreased endurance and pain in her legs with activity PT-OP-C Subjective Start: 01/28/20 11:22 Freq: Status: Active Protocol: Document 04/12/20 14:30 [facility] (Rec: 04/13/20 09:53 [facility] [id number]) OP-PT Subjective Patient Comments Patient Comments Pt has been tired this past week and feels it may be due to a build up of ammonia in her system due to her medical condition. PT-OP-F Manual Assessment Start: 01/28/20 11:22 Freq: Status: Active Protocol: Document 01/28/20 11:15 [facility] (Rec: 02/02/20 08:51 [facility] [id number]) Manual Assessments Soft Tissue Assessment Soft Tissue Mobility Assessment With examination there is scleroderma present throughout B LE. THis affects the musculature of the hips, quads /hamstrings, and anterior and posterior shins and ankles. There is poor calf flexibility , stiffened and tight plantar fascia, flexor digitorum brevis, adductor halliscus, and extensor muscles of the feet. Joint Mobility Assessment Joint Mobility Assessment very poor ankle mobility, hypomobility of the ankle in all planes PT-OP-J Posture/Palpation/Skin Start: 01/28/20 11:22 Freq: Status: Active Protocol: Document 01/28/20 11:15 [facility] (Rec: 02/02/20 12:33 [facility] [id number]) Palpation Assessment Location Two Palpation Location tibialis anterior Palpation Findings Soft Tissue Tightness Palpation Details scar tissue tightness throughout the muscle belly with limited ankle ROM into DF plantar fascia Palpation Location plantar fascia Palpation Findings Soft Tissue Tightness, Tenderness Palpation Details Very little flexibility from the plantar fascia due to tightness and limited ankle ROM One Palpation Location calf musculature B Palpation Findings Soft Tissue Tightness Palpation Details scar tissue noted throughout the muscular wall of the gastrocnemius and soleus musculature due to scleroderma PT-OP-K Range of Motion Start: 01/28/20 11:22 Freq: Status: Active Protocol: Document 01/28/20 11:15 [facility] (Rec: 02/02/20 08:58 [facility] [id number]) Hip Goniometric Range of Motion Hip Right Hip ROM WFL No Testing Position Supine Flexion w/Knee Flexed 105 Straight Leg Raise 45 External Rotation 15 Left Hip ROM WFL No Testing Position Supine Flexion w/Knee Flexed 100 Straight Leg Raise 40 External Rotation 15 Ankle and Foot Goniometric Range of Motion Ankle and Foot Right Ankle/Foot ROM WFL No Testing Position Supine Dorsiflexion with Knee Flexed 5 Dorsiflexion with Knee Extended 2 Plantarflexion 5 Inversion 5 Eversion 5 Left Ankle/Foot ROM WFL No Testing Position Supine Dorsiflexion with Knee Flexed 5 Dorsiflexion with Knee Extended 2 Plantarflexion 5 Inversion 5 Eversion 5 Ankle and Foot ROM Limitations ROM Limitations Soft Tissue Tightness, Contracture Comments pt is so tight in the musculature surrounding her ankles and feet due to scleroderma that she has very poor AROM and PROM. I was able to gain af few degrees today following manual therapy work PT-OP-M Strength Start: 01/28/20 11:22 Freq: Status: Active Protocol: Document 01/28/20 11:15 [facility] (Rec: 02/02/20 12:26 [facility] [id number]) Hip Strength Hip Manual Muscle Testing Right Flexion (L2) 3+ Fair+ Extension (S1) 3 Fair Abduction 3+ Fair+ Adduction 3+ Fair+ External Rotation 3 Fair Left Flexion (L2) 3+ Fair+ Abduction 3+ Fair+ Adduction 3+ Fair+ External Rotation 3 Fair Ankle/Foot Strength Ankle and Foot Manual Muscle Testing Right Dorsiflexion (L4) 2+ Poor+ Plantarflexion (S1) 2+ Poor+ Inversion 2+ Poor+ Eversion (S1) 2+ Poor+ Left Dorsiflexion (L4) 2 Poor Plantarflexion (S1) 2+ Poor+ Inversion 2+ Poor+ Eversion (S1) 2+ Poor+ Comments Limited ankle ROM makes it very difficult for Fay to activate her muscles that control ankle movement PT-OP-Q Treatments Start: 01/28/20 11:22 Freq: Status: Active Protocol: Document 04/12/20 14:30 [facility] (Rec: 04/13/20 09:53 [facility] [id number]) Cardio Equipment Treadmill Duration (Minutes) 14 Speed 1.5 Incline 0 Manual Therapy Treatment Soft Tissue Mobilization B patellar tendon Body Location B Mobilization Type Cross-Friction Intensity/Depth Moderate Body Position Sitting Comments Long sitting R pec, coracobrachialis Body Location R in sitting Mobilization Type Cross-Friction,Myofascial Release Intensity/Depth Moderate Body Position Sitting 1 Body Location B anterior and posterior shins /feet Mobilization Type Myofascial Release Intensity/Depth Superficial Body Position long sitting (rolled towel under B ischial tuberosities) Comments MFR was performed to B anterior and posterior shins and feet, PROM was performed at the ankles and feet Manual Techniques 2 Type manual stretching for the gastroc/soleus complex Body Position Supine 1 Type PROM stretches were performed at B ankles and feet, manual stretching Body Location B PF/ DF Body Position Supine Comments Good tolerance for ROM and manual stretching PT-OP-R Modalities Start: 02/24/20 15:25 Freq: Status: Active Protocol: Document 03/25/20 13:46 [facility] (Rec: 03/29/20 11:58 [facility] [id number]) Hot Pack/Cold Pack Treatment Hot Pack Location R shld Patient Position Sitting Treatment Duration (minutes) 10 Patient Tolerance Good Comments decreased in discomfort anterior R shld end of tx. PT-OP-T Assessment and Plan Start: 01/28/20 11:22 Freq: Status: Active Protocol: Document 04/12/20 14:30 [facility] (Rec: 04/13/20 09:53 [facility] [id number]) Physical Therapy Assessment Assessment Summary Assessment Fay is noticing increased fatigue this week. I talked to her about the smoke last week too as her lungs are very affected from her cancer treatments. She still wanted to walk on the treadmill today and she tolerated treatment well. She is continuing to be monitored in cardiac rehab Physical Therapy Plan Frequency and Duration Frequency of Treatment 2x/Week Duration of Treatment 8 Plan of Care Start Date 03/24/20 Plan of Care End Date 05/19/20 Next Visit Focus/Plan Next Note Type Treatment Note Next Visit Plan Continue per PT POC: work on soft tissue and manual work to improve circulation and tissue extensibility in the LE, ankles, and feet
--- NOTE | 2020-04-14 17:51 | PT.OTN ---
Current Diagnoses Systemic sclerosis, unspecified (04/14/20) Physical Therapy Treatment Note PT-OP-A Visit Information Start: 01/28/20 11:22 Freq: Status: Active Protocol: Document 04/14/20 17:48 [facility] (Rec: 04/14/20 17:51 [facility] [id number]) Out-Patient Physical Therapy Visit Information Visit Information Visit Type Treatment Note Visit Start Time 15:15 Visit Stop Time 16:00 Total Visit Minutes 45 Visit Number 16 Number of ESTIMATE CLERK Visits 0 PT-OP-B Current Condition Start: 01/28/20 11:22 Freq: Status: Active Protocol: Document 01/28/20 11:26 [facility] (Rec: 01/28/20 11:40 [facility] [id number]) Current Condition History of Current Condition Onset Date Pt has a chronic hx of scleroderma, recent flare after a [place] July 08 Current Complaints painful ROM LE especially the ankles/feet,painful gait, decreased balance History of Current Condition Pt has a hisotry of scleroderma that affects her LE. This makes her legs so tight she has lost ROM in her ankles. She reports pain with walking, decresased balance and poor energy. She has been seen in PT years ago for help reducing tightness in her legs. She notes that symptms increased following a myocardial infacrtion in June of 2019. Fay reports for days before her heart attack she was having a buring pain in her chest, she was taken to the ER at [facility] and then sent to [facility]. She was transfered from [facility] to [facility] in [place]. She had 2 stents put in and then had a GI bleed. When she returned home and for awhile ( a week or two) she felt increased energy. But then it went away. Has new symptoms of psorasis and reports her legs feel very bound. Taking Consentyx the injection for Psorasis. The scleroderma in her feet and legs feels worse. She hasn't had treatment in so many years for her legs. She is taking blood thinners. SHe had been doing cardiac rehab and doing really good but had to stop due to covid 19 pandemic. She hasn't been walking as much as she had before and she reports 15-20 minutes is her walking max. Past medical history includes hx of cancer, depression, type II diabetes, dizzyness, memory loss, neuropathy, thyroid disorder, psychological disorder Treatment Goals Patient/Caregiver Goals pt reports she would like to get to 35-40 minutes of walking, other goals include balance training, strengthening, and loosening her leg muscles. Prior Functional Status Baseline Function- ADL's Independent Baseline Function- Mobility Independent Current Functional Impairments (Reported) Functional Limitations- Mobility/Gait Because of the tightness her balance is off and she feels really off balance. Standing hurts due to the leg tightnes. She notes both her feet and legs have increased pain after 10 minutes of static standing . She uses a cane for outdoor ambulation. Functional Limitations- Recreation/ limited recreational Hobbies activities due to decreased endurance and pain in her legs with activity PT-OP-C Subjective Start: 01/28/20 11:22 Freq: Status: Active Protocol: Document 04/14/20 17:48 [facility] (Rec: 04/14/20 17:51 [facility] [id number]) OP-PT Subjective Patient Comments Patient Comments Pt doing better today with decreased fatigue and did cardiac rehab this am PT-OP-F Manual Assessment Start: 01/28/20 11:22 Freq: Status: Active Protocol: Document 01/28/20 11:15 [facility] (Rec: 02/02/20 08:51 [facility] [id number]) Manual Assessments Soft Tissue Assessment Soft Tissue Mobility Assessment With examination there is scleroderma present throughout B LE. THis affects the musculature of the hips, quads /hamstrings, and anterior and posterior shins and ankles. There is poor calf flexibility , stiffened and tight plantar fascia, flexor digitorum brevis, adductor halliscus, and extensor muscles of the feet. Joint Mobility Assessment Joint Mobility Assessment very poor ankle mobility, hypomobility of the ankle in all planes PT-OP-J Posture/Palpation/Skin Start: 01/28/20 11:22 Freq: Status: Active Protocol: Document 01/28/20 11:15 [facility] (Rec: 02/02/20 12:33 [facility] [id number]) Palpation Assessment Location Two Palpation Location tibialis anterior Palpation Findings Soft Tissue Tightness Palpation Details scar tissue tightness throughout the muscle belly with limited ankle ROM into DF plantar fascia Palpation Location plantar fascia Palpation Findings Soft Tissue Tightness, Tenderness Palpation Details Very little flexibility from the plantar fascia due to tightness and limited ankle ROM One Palpation Location calf musculature B Palpation Findings Soft Tissue Tightness Palpation Details scar tissue noted throughout the muscular wall of the gastrocnemius and soleus musculature due to scleroderma PT-OP-K Range of Motion Start: 01/28/20 11:22 Freq: Status: Active Protocol: Document 01/28/20 11:15 [facility] (Rec: 02/02/20 08:58 [facility] [id number]) Hip Goniometric Range of Motion Hip Right Hip ROM WFL No Testing Position Supine Flexion w/Knee Flexed 105 Straight Leg Raise 45 External Rotation 15 Left Hip ROM WFL No Testing Position Supine Flexion w/Knee Flexed 100 Straight Leg Raise 40 External Rotation 15 Ankle and Foot Goniometric Range of Motion Ankle and Foot Right Ankle/Foot ROM WFL No Testing Position Supine Dorsiflexion with Knee Flexed 5 Dorsiflexion with Knee Extended 2 Plantarflexion 5 Inversion 5 Eversion 5 Left Ankle/Foot ROM WFL No Testing Position Supine Dorsiflexion with Knee Flexed 5 Dorsiflexion with Knee Extended 2 Plantarflexion 5 Inversion 5 Eversion 5 Ankle and Foot ROM Limitations ROM Limitations Soft Tissue Tightness, Contracture Comments pt is so tight in the musculature surrounding her ankles and feet due to scleroderma that she has very poor AROM and PROM. I was able to gain af few degrees today following manual therapy work PT-OP-M Strength Start: 01/28/20 11:22 Freq: Status: Active Protocol: Document 01/28/20 11:15 [facility] (Rec: 02/02/20 12:26 [facility] [id number]) Hip Strength Hip Manual Muscle Testing Right Flexion (L2) 3+ Fair+ Extension (S1) 3 Fair Abduction 3+ Fair+ Adduction 3+ Fair+ External Rotation 3 Fair Left Flexion (L2) 3+ Fair+ Abduction 3+ Fair+ Adduction 3+ Fair+ External Rotation 3 Fair Ankle/Foot Strength Ankle and Foot Manual Muscle Testing Right Dorsiflexion (L4) 2+ Poor+ Plantarflexion (S1) 2+ Poor+ Inversion 2+ Poor+ Eversion (S1) 2+ Poor+ Left Dorsiflexion (L4) 2 Poor Plantarflexion (S1) 2+ Poor+ Inversion 2+ Poor+ Eversion (S1) 2+ Poor+ Comments Limited ankle ROM makes it very difficult for Fay to activate her muscles that control ankle movement PT-OP-Q Treatments Start: 01/28/20 11:22 Freq: Status: Active Protocol: Document 04/14/20 17:48 [facility] (Rec: 04/14/20 17:51 [facility] [id number]) Cardio Equipment Treadmill Duration (Minutes) 15 Speed 1.5 Incline 0 Manual Therapy Treatment Soft Tissue Mobilization B patellar tendon Body Location B Mobilization Type Cross-Friction Intensity/Depth Moderate Body Position Sitting Comments Long sitting 1 Body Location B anterior and posterior shins /feet Mobilization Type Myofascial Release Intensity/Depth Superficial Body Position long sitting (rolled towel under B ischial tuberosities) Comments MFR was performed to B anterior and posterior shins and feet, PROM was performed at the ankles and feet Manual Techniques 2 Type manual stretching for the gastroc/soleus complex Body Position Supine 1 Type PROM stretches were performed at B ankles and feet, manual stretching Body Location B PF/ DF Body Position Supine Comments Good tolerance for ROM and manual stretching PT-OP-R Modalities Start: 02/24/20 15:25 Freq: Status: Active Protocol: Document 03/25/20 13:46 [facility] (Rec: 03/29/20 11:58 [facility] [id number]) Hot Pack/Cold Pack Treatment Hot Pack Location R shld Patient Position Sitting Treatment Duration (minutes) 10 Patient Tolerance Good Comments decreased in discomfort anterior R shld end of tx. PT-OP-T Assessment and Plan Start: 01/28/20 11:22 Freq: Status: Active Protocol: Document 04/14/20 17:48 [facility] (Rec: 04/14/20 17:51 [facility] [id number]) Physical Therapy Assessment Assessment Summary Assessment Fay tolerated todays treatment well and the fatigue seems to have decreased. Physical Therapy Plan Frequency and Duration Frequency of Treatment 2x/Week Duration of Treatment 8 Plan of Care Start Date 03/24/20 Plan of Care End Date 05/19/20 Next Visit Focus/Plan Next Note Type Treatment Note Next Visit Plan Continue per PT POC: work on soft tissue and manual work to improve circulation and tissue extensibility in the LE, ankles, and feet
--- NOTE | 2020-04-21 17:23 | PT.OTN ---
Current Diagnoses Systemic sclerosis, unspecified (04/21/20) Physical Therapy Treatment Note PT-OP-A Visit Information Start: 01/28/20 11:22 Freq: Status: Active Protocol: Document 04/21/20 14:33 [facility] (Rec: 04/21/20 14:34 [facility] [id number]) Out-Patient Physical Therapy Visit Information Visit Information Visit Type Treatment Note Visit Start Time 14:30 Visit Stop Time 15:15 Total Visit Minutes 45 Visit Number 17 PT-OP-B Current Condition Start: 01/28/20 11:22 Freq: Status: Active Protocol: Document 01/28/20 11:26 [facility] (Rec: 01/28/20 11:40 [facility] [id number]) Current Condition History of Current Condition Onset Date Pt has a chronic hx of scleroderma, recent flare after a PR July 08 Current Complaints painful ROM LE especially the ankles/feet,painful gait, decreased balance History of Current Condition Pt has a hisotry of scleroderma that affects her LE. This makes her legs so tight she has lost ROM in her ankles. She reports pain with walking, decresased balance and poor energy. She has been seen in PT years ago for help reducing tightness in her legs. She notes that symptms increased following a myocardial infacrtion in June of 2019. Fay reports for days before her heart attack she was having a buring pain in her chest, she was taken to the ER at [facility] and then sent to [facility] She was transfered from [facility] to [facility] in [place]. She had 2 stents put in and then had a GI bleed. When she returned home and for awhile ( a week or two) she felt increased energy. But then it went away. Has new symptoms of psorasis and reports her legs feel very bound. Taking Consentyx the injection for Psorasis. The scleroderma in her feet and legs feels worse. She hasn't had treatment in so many years for her legs. She is taking blood thinners. SHe had been doing cardiac rehab and doing really good but had to stop due to covid 19 pandemic. She hasn't been walking as much as she had before and she reports 15-20 minutes is her walking max. Past medical history includes hx of cancer, depression, type II diabetes, dizzyness, memory loss, neuropathy, thyroid disorder, psychological disorder Treatment Goals Patient/Caregiver Goals pt reports she would like to get to 35-40 minutes of walking, other goals include balance training, strengthening, and loosening her leg muscles. Prior Functional Status Baseline Function- ADL's Independent Baseline Function- Mobility Independent Current Functional Impairments (Reported) Functional Limitations- Mobility/Gait Because of the tightness her balance is off and she feels really off balance. Standing hurts due to the leg tightnes. She notes both her feet and legs have increased pain after 10 minutes of static standing . She uses a cane for outdoor ambulation. Functional Limitations- Recreation/ limited recreational Hobbies activities due to decreased endurance and pain in her legs with activity PT-OP-C Subjective Start: 01/28/20 11:22 Freq: Status: Active Protocol: Document 04/21/20 14:33 [facility] (Rec: 04/21/20 14:34 [facility] [id number]) OP-PT Subjective Patient Comments Patient Comments Fay reports she has felt really dopy the past 2 weeks. She has had dizzyness and hasn't been feeling like herself. PT-OP-F Manual Assessment Start: 01/28/20 11:22 Freq: Status: Active Protocol: Document 01/28/20 11:15 [facility] (Rec: 02/02/20 08:51 [facility] [id number]) Manual Assessments Soft Tissue Assessment Soft Tissue Mobility Assessment With examination there is scleroderma present throughout B LE. THis affects the musculature of the hips, quads /hamstrings, and anterior and posterior shins and ankles. There is poor calf flexibility , stiffened and tight plantar fascia, flexor digitorum brevis, adductor halliscus, and extensor muscles of the feet. Joint Mobility Assessment Joint Mobility Assessment very poor ankle mobility, hypomobility of the ankle in all planes PT-OP-J Posture/Palpation/Skin Start: 01/28/20 11:22 Freq: Status: Active Protocol: Document 01/28/20 11:15 [facility] (Rec: 02/02/20 12:33 [facility] [id number]) Palpation Assessment Location Two Palpation Location tibialis anterior Palpation Findings Soft Tissue Tightness Palpation Details scar tissue tightness throughout the muscle belly with limited ankle ROM into DF plantar fascia Palpation Location plantar fascia Palpation Findings Soft Tissue Tightness, Tenderness Palpation Details Very little flexibility from the plantar fascia due to tightness and limited ankle ROM One Palpation Location calf musculature B Palpation Findings Soft Tissue Tightness Palpation Details scar tissue noted throughout the muscular wall of the gastrocnemius and soleus musculature due to scleroderma PT-OP-K Range of Motion Start: 01/28/20 11:22 Freq: Status: Active Protocol: Document 01/28/20 11:15 [facility] (Rec: 02/02/20 08:58 [facility] [id number]) Hip Goniometric Range of Motion Hip Right Hip ROM WFL No Testing Position Supine Flexion w/Knee Flexed 105 Straight Leg Raise 45 External Rotation 15 Left Hip ROM WFL No Testing Position Supine Flexion w/Knee Flexed 100 Straight Leg Raise 40 External Rotation 15 Ankle and Foot Goniometric Range of Motion Ankle and Foot Right Ankle/Foot ROM WFL No Testing Position Supine Dorsiflexion with Knee Flexed 5 Dorsiflexion with Knee Extended 2 Plantarflexion 5 Inversion 5 Eversion 5 Left Ankle/Foot ROM WFL No Testing Position Supine Dorsiflexion with Knee Flexed 5 Dorsiflexion with Knee Extended 2 Plantarflexion 5 Inversion 5 Eversion 5 Ankle and Foot ROM Limitations ROM Limitations Soft Tissue Tightness, Contracture Comments pt is so tight in the musculature surrounding her ankles and feet due to scleroderma that she has very poor AROM and PROM. I was able to gain af few degrees today following manual therapy work PT-OP-M Strength Start: 01/28/20 11:22 Freq: Status: Active Protocol: Document 01/28/20 11:15 [facility] (Rec: 02/02/20 12:26 [facility] [id number]) Hip Strength Hip Manual Muscle Testing Right Flexion (L2) 3+ Fair+ Extension (S1) 3 Fair Abduction 3+ Fair+ Adduction 3+ Fair+ External Rotation 3 Fair Left Flexion (L2) 3+ Fair+ Abduction 3+ Fair+ Adduction 3+ Fair+ External Rotation 3 Fair Ankle/Foot Strength Ankle and Foot Manual Muscle Testing Right Dorsiflexion (L4) 2+ Poor+ Plantarflexion (S1) 2+ Poor+ Inversion 2+ Poor+ Eversion (S1) 2+ Poor+ Left Dorsiflexion (L4) 2 Poor Plantarflexion (S1) 2+ Poor+ Inversion 2+ Poor+ Eversion (S1) 2+ Poor+ Comments Limited ankle ROM makes it very difficult for Fay to activate her muscles that control ankle movement PT-OP-Q Treatments Start: 01/28/20 11:22 Freq: Status: Active Protocol: Document 04/21/20 17:21 [facility] (Rec: 04/21/20 17:23 [facility] [id number]) Manual Therapy Treatment Soft Tissue Mobilization B patellar tendon Body Location B Mobilization Type Cross-Friction Intensity/Depth Moderate Body Position Sitting Comments Long sitting 1 Body Location B anterior and posterior shins /feet Mobilization Type Myofascial Release Intensity/Depth Superficial Body Position long sitting (rolled towel under B ischial tuberosities) Comments MFR was performed to B anterior and posterior shins and feet, PROM was performed at the ankles and feet Manual Techniques 2 Type manual stretching for the gastroc/soleus complex Body Position Supine 1 Type PROM stretches were performed at B ankles and feet, manual stretching Body Location B PF/ DF Body Position Supine Comments Good tolerance for ROM and manual stretching PT-OP-R Modalities Start: 02/24/20 15:25 Freq: Status: Active Protocol: Document 03/25/20 13:46 [facility] (Rec: 03/29/20 11:58 [facility] [id number]) Hot Pack/Cold Pack Treatment Hot Pack Location R shld Patient Position Sitting Treatment Duration (minutes) 10 Patient Tolerance Good Comments decreased in discomfort anterior R shld end of tx. PT-OP-T Assessment and Plan Start: 01/28/20 11:22 Freq: Status: Active Protocol: Document 04/21/20 17:21 [facility] (Rec: 04/21/20 17:23 [facility] [id number]) Physical Therapy Assessment Assessment Summary Assessment Fay was not herself today and feels like the anti depressant she is on may be effecting her. I encouraged her to talk to her doctor regarding the symptoms she is experiencing. She did not feel up to walking on the treadmill today.
--- NOTE | 2020-04-26 17:06 | PT.OTN ---
Current Diagnoses Systemic sclerosis, unspecified (04/26/20) Physical Therapy Treatment Note PT-OP-A Visit Information Start: 01/28/20 11:22 Freq: Status: Active Protocol: Document 04/26/20 16:56 [facility] (Rec: 04/26/20 17:06 [facility] [id number]) Out-Patient Physical Therapy Visit Information Visit Information Visit Type Treatment Note Visit Start Time 13:45 Visit Stop Time 14:30 Total Visit Minutes 45 Visit Number 18 PT-OP-B Current Condition Start: 01/28/20 11:22 Freq: Status: Active Protocol: Document 01/28/20 11:26 [facility] (Rec: 01/28/20 11:40 [facility] [id number]) Current Condition History of Current Condition Onset Date Pt has a chronic hx of scleroderma, recent flare after a HI July 08 Current Complaints painful ROM LE especially the ankles/feet,painful gait, decreased balance History of Current Condition Pt has a hisotry of scleroderma that affects her LE. This makes her legs so tight she has lost ROM in her ankles. She reports pain with walking, decresased balance and poor energy. She has been seen in PT years ago for help reducing tightness in her legs. She notes that symptms increased following a myocardial infacrtion in June of 2019. Fay reports for days before her heart attack she was having a buring pain in her chest, she was taken to the ER at [facility] and then sent to [facility]. She was transfered from [facility] to [facility] in [place]. She had 2 stents put in and then had a GI bleed. When she returned home and for awhile ( a week or two) she felt increased energy. But then it went away. Has new symptoms of psorasis and reports her legs feel very bound. Taking Consentyx the injection for Psorasis. The scleroderma in her feet and legs feels worse. She hasn't had treatment in so many years for her legs. She is taking blood thinners. SHe had been doing cardiac rehab and doing really good but had to stop due to covid 19 pandemic. She hasn't been walking as much as she had before and she reports 15-20 minutes is her walking max. Past medical history includes hx of cancer, depression, type II diabetes, dizzyness, memory loss, neuropathy, thyroid disorder, psychological disorder Treatment Goals Patient/Caregiver Goals pt reports she would like to get to 35-40 minutes of walking, other goals include balance training, strengthening, and loosening her leg muscles. Prior Functional Status Baseline Function- ADL's Independent Baseline Function- Mobility Independent Current Functional Impairments (Reported) Functional Limitations- Mobility/Gait Because of the tightness her balance is off and she feels really off balance. Standing hurts due to the leg tightnes. She notes both her feet and legs have increased pain after 10 minutes of static standing . She uses a cane for outdoor ambulation. Functional Limitations- Recreation/ limited recreational Hobbies activities due to decreased endurance and pain in her legs with activity PT-OP-C Subjective Start: 01/28/20 11:22 Freq: Status: Active Protocol: Document 04/26/20 16:56 [facility] (Rec: 04/26/20 17:06 [facility] [id number]) OP-PT Subjective Patient Comments Patient Comments Fay reports she gave her self her injection and must have hit scar tisssue or something as she came down with a severe bruise across her abdominal wall. She is very sore today. She also reports she walked across a gravel surface and this really irritated the bottem of her feet even though she had shoes on. PT-OP-F Manual Assessment Start: 01/28/20 11:22 Freq: Status: Active Protocol: Document 01/28/20 11:15 [facility] (Rec: 02/02/20 08:51 [facility] [id number]) Manual Assessments Soft Tissue Assessment Soft Tissue Mobility Assessment With examination there is scleroderma present throughout B LE. THis affects the musculature of the hips, quads /hamstrings, and anterior and posterior shins and ankles. There is poor calf flexibility , stiffened and tight plantar fascia, flexor digitorum brevis, adductor halliscus, and extensor muscles of the feet. Joint Mobility Assessment Joint Mobility Assessment very poor ankle mobility, hypomobility of the ankle in all planes PT-OP-J Posture/Palpation/Skin Start: 01/28/20 11:22 Freq: Status: Active Protocol: Document 01/28/20 11:15 [facility] (Rec: 02/02/20 12:33 [facility] [id number]) Palpation Assessment Location Two Palpation Location tibialis anterior Palpation Findings Soft Tissue Tightness Palpation Details scar tissue tightness throughout the muscle belly with limited ankle ROM into DF plantar fascia Palpation Location plantar fascia Palpation Findings Soft Tissue Tightness, Tenderness Palpation Details Very little flexibility from the plantar fascia due to tightness and limited ankle ROM One Palpation Location calf musculature B Palpation Findings Soft Tissue Tightness Palpation Details scar tissue noted throughout the muscular wall of the gastrocnemius and soleus musculature due to scleroderma PT-OP-K Range of Motion Start: 01/28/20 11:22 Freq: Status: Active Protocol: Document 01/28/20 11:15 [facility] (Rec: 02/02/20 08:58 [facility] [id number]) Hip Goniometric Range of Motion Hip Right Hip ROM WFL No Testing Position Supine Flexion w/Knee Flexed 105 Straight Leg Raise 45 External Rotation 15 Left Hip ROM WFL No Testing Position Supine Flexion w/Knee Flexed 100 Straight Leg Raise 40 External Rotation 15 Ankle and Foot Goniometric Range of Motion Ankle and Foot Right Ankle/Foot ROM WFL No Testing Position Supine Dorsiflexion with Knee Flexed 5 Dorsiflexion with Knee Extended 2 Plantarflexion 5 Inversion 5 Eversion 5 Left Ankle/Foot ROM WFL No Testing Position Supine Dorsiflexion with Knee Flexed 5 Dorsiflexion with Knee Extended 2 Plantarflexion 5 Inversion 5 Eversion 5 Ankle and Foot ROM Limitations ROM Limitations Soft Tissue Tightness, Contracture Comments pt is so tight in the musculature surrounding her ankles and feet due to scleroderma that she has very poor AROM and PROM. I was able to gain af few degrees today following manual therapy work PT-OP-M Strength Start: 01/28/20 11:22 Freq: Status: Active Protocol: Document 01/28/20 11:15 [facility] (Rec: 02/02/20 12:26 [facility] [id number]) Hip Strength Hip Manual Muscle Testing Right Flexion (L2) 3+ Fair+ Extension (S1) 3 Fair Abduction 3+ Fair+ Adduction 3+ Fair+ External Rotation 3 Fair Left Flexion (L2) 3+ Fair+ Abduction 3+ Fair+ Adduction 3+ Fair+ External Rotation 3 Fair Ankle/Foot Strength Ankle and Foot Manual Muscle Testing Right Dorsiflexion (L4) 2+ Poor+ Plantarflexion (S1) 2+ Poor+ Inversion 2+ Poor+ Eversion (S1) 2+ Poor+ Left Dorsiflexion (L4) 2 Poor Plantarflexion (S1) 2+ Poor+ Inversion 2+ Poor+ Eversion (S1) 2+ Poor+ Comments Limited ankle ROM makes it very difficult for Fay to activate her muscles that control ankle movement PT-OP-Q Treatments Start: 01/28/20 11:22 Freq: Status: Active Protocol: Document 04/26/20 16:56 [facility] (Rec: 04/26/20 17:06 [facility] [id number]) Manual Therapy Treatment Soft Tissue Mobilization 1 Body Location B anterior and posterior shins /feet Mobilization Type Myofascial Release Intensity/Depth Superficial Body Position long sitting (rolled towel under B ischial tuberosities) Comments MFR was performed to B anterior and posterior shins and feet, PROM was performed at the ankles and feet Joint Mobilizations Patella mobes Joint B Direction med/lat/sup/inf Grade II Body Position Sitting Comments Long sitting. Manual Techniques 2 Type manual stretching for the gastroc/soleus complex Body Position Supine 1 Type PROM stretches were performed at B ankles and feet, manual stretching Body Location B PF/ DF Body Position Supine Comments Good tolerance for ROM and manual stretching PT-OP-R Modalities Start: 02/24/20 15:25 Freq: Status: Active Protocol: Document 03/25/20 13:46 SP (Rec: 03/29/20 11:58 SP [id number]) Hot Pack/Cold Pack Treatment Hot Pack Location R shld Patient Position Sitting Treatment Duration (minutes) 10 Patient Tolerance Good Comments decreased in discomfort anterior R shld end of tx. PT-OP-T Assessment and Plan Start: 01/28/20 11:22 Freq: Status: Active Protocol: Document 04/26/20 16:56 [facility] (Rec: 04/26/20 17:06 [facility] [id number]) Physical Therapy Assessment Assessment Summary Assessment Fay was very sore today due to the brusing across her whole abdominal wall. She has had her nurse look at the brusing. She also had a red what looked like a small puncture kel on the sole of her left foot. She only wears shoes when walking. She will make a appointment with her Doctor to look at her left foot. Physical Therapy Plan Frequency and Duration Frequency of Treatment 2x/Week Duration of Treatment 8 Plan of Care Start Date 03/24/20 Plan of Care End Date 05/19/20 Next Visit Focus/Plan Next Note Type Treatment Note Next Visit Plan inspect the skin on the plantar surface of the left foot, continue to work on ankle ROM and decreasing myofascial and scar tissue restrictions
--- NOTE | 2020-05-03 17:34 | PT.OTN ---
Current Diagnoses Systemic sclerosis, unspecified (05/03/20) Physical Therapy Treatment Note PT-OP-A Visit Information Start: 01/28/20 11:22 Freq: Status: Active Protocol: Document 05/03/20 17:26 [facility] (Rec: 05/03/20 17:34 [facility] [id number]) Out-Patient Physical Therapy Visit Information Visit Information Visit Type Treatment Note Visit Start Time 16:00 Visit Stop Time 16:45 Total Visit Minutes 45 Visit Number 19 PT-OP-B Current Condition Start: 01/28/20 11:22 Freq: Status: Active Protocol: Document 01/28/20 11:26 [facility] (Rec: 01/28/20 11:40 [facility] [id number]) Current Condition History of Current Condition Onset Date Pt has a chronic hx of scleroderma, recent flare after a [place] July 08 Current Complaints painful ROM LE especially the ankles/feet,painful gait, decreased balance History of Current Condition Pt has a hisotry of scleroderma that affects her LE. This makes her legs so tight she has lost ROM in her ankles. She reports pain with walking, decresased balance and poor energy. She has been seen in PT years ago for help reducing tightness in her legs. She notes that symptms increased following a myocardial infacrtion in June of 2019. Fay reports for days before her heart attack she was having a buring pain in her chest, she was taken to the ER at [facility] and then sent to [facility]. She was transfered from [facility] to [facility] in [place]. She had 2 stents put in and then had a GI bleed. When she returned home and for awhile ( a week or two) she felt increased energy. But then it went away. Has new symptoms of psorasis and reports her legs feel very bound. Taking Consentyx the injection for Psorasis. The scleroderma in her feet and legs feels worse. She hasn't had treatment in so many years for her legs. She is taking blood thinners. SHe had been doing cardiac rehab and doing really good but had to stop due to covid 19 pandemic. She hasn't been walking as much as she had before and she reports 15-20 minutes is her walking max. Past medical history includes hx of cancer, depression, type II diabetes, dizzyness, memory loss, neuropathy, thyroid disorder, psychological disorder Treatment Goals Patient/Caregiver Goals pt reports she would like to get to 35-40 minutes of walking, other goals include balance training, strengthening, and loosening her leg muscles. Prior Functional Status Baseline Function- ADL's Independent Baseline Function- Mobility Independent Current Functional Impairments (Reported) Functional Limitations- Mobility/Gait Because of the tightness her balance is off and she feels really off balance. Standing hurts due to the leg tightnes. She notes both her feet and legs have increased pain after 10 minutes of static standing . She uses a cane for outdoor ambulation. Functional Limitations- Recreation/ limited recreational Hobbies activities due to decreased endurance and pain in her legs with activity PT-OP-C Subjective Start: 01/28/20 11:22 Freq: Status: Active Protocol: Document 05/03/20 17:26 [facility] (Rec: 05/03/20 17:34 [facility] [email or web address]) OP-PT Subjective Patient Comments Patient Comments Fay notes she had to be hospitalized on saturday for internal bleeding. She is now awaiting a colonoscopy. PT-OP-F Manual Assessment Start: 01/28/20 11:22 Freq: Status: Active Protocol: Document 01/28/20 11:15 [facility] (Rec: 02/02/20 08:51 [facility] [id number]) Manual Assessments Soft Tissue Assessment Soft Tissue Mobility Assessment With examination there is scleroderma present throughout B LE. THis affects the musculature of the hips, quads /hamstrings, and anterior and posterior shins and ankles. There is poor calf flexibility , stiffened and tight plantar fascia, flexor digitorum brevis, adductor halliscus, and extensor muscles of the feet. Joint Mobility Assessment Joint Mobility Assessment very poor ankle mobility, hypomobility of the ankle in all planes PT-OP-J Posture/Palpation/Skin Start: 01/28/20 11:22 Freq: Status: Active Protocol: Document 01/28/20 11:15 [facility] (Rec: 02/02/20 12:33 [facility] [id number]) Palpation Assessment Location Two Palpation Location tibialis anterior Palpation Findings Soft Tissue Tightness Palpation Details scar tissue tightness throughout the muscle belly with limited ankle ROM into DF plantar fascia Palpation Location plantar fascia Palpation Findings Soft Tissue Tightness, Tenderness Palpation Details Very little flexibility from the plantar fascia due to tightness and limited ankle ROM One Palpation Location calf musculature B Palpation Findings Soft Tissue Tightness Palpation Details scar tissue noted throughout the muscular wall of the gastrocnemius and soleus musculature due to scleroderma PT-OP-K Range of Motion Start: 01/28/20 11:22 Freq: Status: Active Protocol: Document 01/28/20 11:15 [facility] (Rec: 02/02/20 08:58 [facility] [id number]) Hip Goniometric Range of Motion Hip Right Hip ROM WFL No Testing Position Supine Flexion w/Knee Flexed 105 Straight Leg Raise 45 External Rotation 15 Left Hip ROM WFL No Testing Position Supine Flexion w/Knee Flexed 100 Straight Leg Raise 40 External Rotation 15 Ankle and Foot Goniometric Range of Motion Ankle and Foot Right Ankle/Foot ROM WFL No Testing Position Supine Dorsiflexion with Knee Flexed 5 Dorsiflexion with Knee Extended 2 Plantarflexion 5 Inversion 5 Eversion 5 Left Ankle/Foot ROM WFL No Testing Position Supine Dorsiflexion with Knee Flexed 5 Dorsiflexion with Knee Extended 2 Plantarflexion 5 Inversion 5 Eversion 5 Ankle and Foot ROM Limitations ROM Limitations Soft Tissue Tightness, Contracture Comments pt is so tight in the musculature surrounding her ankles and feet due to scleroderma that she has very poor AROM and PROM. I was able to gain af few degrees today following manual therapy work PT-OP-M Strength Start: 01/28/20 11:22 Freq: Status: Active Protocol: Document 01/28/20 11:15 [facility] (Rec: 02/02/20 12:26 [facility] [id number]) Hip Strength Hip Manual Muscle Testing Right Flexion (L2) 3+ Fair+ Extension (S1) 3 Fair Abduction 3+ Fair+ Adduction 3+ Fair+ External Rotation 3 Fair Left Flexion (L2) 3+ Fair+ Abduction 3+ Fair+ Adduction 3+ Fair+ External Rotation 3 Fair Ankle/Foot Strength Ankle and Foot Manual Muscle Testing Right Dorsiflexion (L4) 2+ Poor+ Plantarflexion (S1) 2+ Poor+ Inversion 2+ Poor+ Eversion (S1) 2+ Poor+ Left Dorsiflexion (L4) 2 Poor Plantarflexion (S1) 2+ Poor+ Inversion 2+ Poor+ Eversion (S1) 2+ Poor+ Comments Limited ankle ROM makes it very difficult for Fay to activate her muscles that control ankle movement PT-OP-Q Treatments Start: 01/28/20 11:22 Freq: Status: Active Protocol: Document 05/03/20 17:26 [facility] (Rec: 05/03/20 17:34 [facility] [id number]) Cardio Equipment Treadmill Duration (Minutes) 15 Speed 1.8 Manual Therapy Treatment Soft Tissue Mobilization B patellar tendon Body Location B Mobilization Type Cross-Friction Intensity/Depth Moderate Body Position Sitting Comments Long sitting 1 Body Location B anterior and posterior shins /feet Mobilization Type Myofascial Release Intensity/Depth Superficial Body Position long sitting (rolled towel under B ischial tuberosities) Comments MFR was performed to B anterior and posterior shins and feet, PROM was performed at the ankles and feet Manual Techniques 1 Type PROM stretches were performed at B ankles and feet, manual stretching Body Location B PF/ DF Body Position Supine Comments Good tolerance for ROM and manual stretching PT-OP-R Modalities Start: 02/24/20 15:25 Freq: Status: Active Protocol: Document 03/25/20 13:46 [facility] (Rec: 03/29/20 11:58 [facility] [id number]) Hot Pack/Cold Pack Treatment Hot Pack Location R shld Patient Position Sitting Treatment Duration (minutes) 10 Patient Tolerance Good Comments decreased in discomfort anterior R shld end of tx. PT-OP-T Assessment and Plan Start: 01/28/20 11:22 Freq: Status: Active Protocol: Document 05/03/20 17:26 [facility] (Rec: 05/03/20 17:34 [facility] [email or web address]) Physical Therapy Assessment Assessment Summary Assessment Fay is still quite bruised on the left side of her abdomen and also still has a sore on the bottom of her foot. She had a appointment with a foot doctor but had to cx due to being in the hospital. She will Reschedule Physical Therapy Plan Frequency and Duration Frequency of Treatment 2x/Week Duration of Treatment 8 Plan of Care Start Date 03/24/20 Plan of Care End Date 05/19/20 Next Visit Focus/Plan Next Note Type Treatment Note Next Visit Plan inspect the skin on the plantar surface of the left foot, continue to work on ankle ROM and decreasing myofascial and scar tissue restrictions
--- NOTE | 2020-05-05 15:07 | PT.OTN ---
Current Diagnoses Systemic sclerosis, unspecified (05/05/20) Physical Therapy Treatment Note PT-OP-A Visit Information Start: 01/28/20 11:22 Freq: Status: Active Protocol: Document 05/05/20 14:57 [facility] (Rec: 05/05/20 14:59 [facility] [id number]) Out-Patient Physical Therapy Visit Information Visit Information Visit Type Progress Note Visit Start Time 13:45 Visit Stop Time 14:30 Total Visit Minutes 45 Visit Number 20 PT-OP-B Current Condition Start: 01/28/20 11:22 Freq: Status: Active Protocol: Document 01/28/20 11:26 [facility] (Rec: 01/28/20 11:40 [facility] [id number]) Current Condition History of Current Condition Onset Date Pt has a chronic hx of scleroderma, recent flare after a [place] July 08 Current Complaints painful ROM LE especially the ankles/feet,painful gait, decreased balance History of Current Condition Pt has a hisotry of scleroderma that affects her LE. This makes her legs so tight she has lost ROM in her ankles. She reports pain with walking, decresased balance and poor energy. She has been seen in PT years ago for help reducing tightness in her legs. She notes that symptms increased following a myocardial infacrtion in June of 2019. Fay reports for days before her heart attack she was having a buring pain in her chest, she was taken to the ER at [facility] and then sent to [facility]. She was transfered from [facility] to [facility] in [place]. She had 2 stents put in and then had a GI bleed. When she returned home and for awhile ( a week or two) she felt increased energy. But then it went away. Has new symptoms of psorasis and reports her legs feel very bound. Taking Consentyx the injection for Psorasis. The scleroderma in her feet and legs feels worse. She hasn't had treatment in so many years for her legs. She is taking blood thinners. SHe had been doing cardiac rehab and doing really good but had to stop due to covid 19 pandemic. She hasn't been walking as much as she had before and she reports 15-20 minutes is her walking max. Past medical history includes hx of cancer, depression, type II diabetes, dizzyness, memory loss, neuropathy, thyroid disorder, psychological disorder Treatment Goals Patient/Caregiver Goals pt reports she would like to get to 35-40 minutes of walking, other goals include balance training, strengthening, and loosening her leg muscles. Prior Functional Status Baseline Function- ADL's Independent Baseline Function- Mobility Independent Current Functional Impairments (Reported) Functional Limitations- Mobility/Gait Because of the tightness her balance is off and she feels really off balance. Standing hurts due to the leg tightnes. She notes both her feet and legs have increased pain after 10 minutes of static standing . She uses a cane for outdoor ambulation. Functional Limitations- Recreation/ limited recreational Hobbies activities due to decreased endurance and pain in her legs with activity PT-OP-C Subjective Start: 01/28/20 11:22 Freq: Status: Active Protocol: Document 05/05/20 14:57 [facility] (Rec: 05/05/20 14:59 [facility] [email or web address]) OP-PT Subjective Patient Comments Patient Comments Fay reports she is doing better from being hospitalized , no longer experiencing blood in her stool. She went to cardiac rehab today and walked 20 min but needed to stop due to her blood sugar lowering. PT-OP-F Manual Assessment Start: 01/28/20 11:22 Freq: Status: Active Protocol: Document 05/05/20 15:04 [facility] (Rec: 05/05/20 15:06 [facility] [email or web address]) Manual Assessments Soft Tissue Assessment Soft Tissue Mobility Assessment pt is showing some changes in calf and plantar flexion flexibility which is allowing her to progress her walking distance to 20 minutes PT-OP-J Posture/Palpation/Skin Start: 01/28/20 11:22 Freq: Status: Active Protocol: Document 01/28/20 11:15 [facility] (Rec: 02/02/20 12:33 [facility] [id number]) Palpation Assessment Location Two Palpation Location tibialis anterior Palpation Findings Soft Tissue Tightness Palpation Details scar tissue tightness throughout the muscle belly with limited ankle ROM into DF plantar fascia Palpation Location plantar fascia Palpation Findings Soft Tissue Tightness, Tenderness Palpation Details Very little flexibility from the plantar fascia due to tightness and limited ankle ROM One Palpation Location calf musculature B Palpation Findings Soft Tissue Tightness Palpation Details scar tissue noted throughout the muscular wall of the gastrocnemius and soleus musculature due to scleroderma PT-OP-K Range of Motion Start: 01/28/20 11:22 Freq: Status: Active Protocol: Document 05/05/20 15:04 [facility] (Rec: 05/05/20 15:06 [facility] [email or web address]) Ankle and Foot Goniometric Range of Motion Ankle and Foot Right Ankle/Foot ROM WFL No Testing Position Supine Dorsiflexion with Knee Flexed 8 Dorsiflexion with Knee Extended 4 Plantarflexion 8 Inversion 8 Eversion 8 Left Ankle/Foot ROM WFL No Testing Position Supine Dorsiflexion with Knee Flexed 10 Dorsiflexion with Knee Extended 5 Plantarflexion 8 Inversion 8 Eversion 8 PT-OP-M Strength Start: 01/28/20 11:22 Freq: Status: Active Protocol: Document 05/05/20 15:04 [facility] (Rec: 05/05/20 15:06 [facility] [email or web address]) Ankle/Foot Strength Ankle and Foot Manual Muscle Testing Right Dorsiflexion (L4) 3 Fair Plantarflexion (S1) 3 Fair Inversion 3 Fair Eversion (S1) 3 Fair Left Dorsiflexion (L4) 3 Fair Plantarflexion (S1) 3 Fair Inversion 3 Fair Eversion (S1) 3 Fair PT-OP-Q Treatments Start: 01/28/20 11:22 Freq: Status: Active Protocol: Document 05/05/20 15:01 [facility] (Rec: 05/05/20 15:04 [facility] [email or web address]) Manual Therapy Treatment Soft Tissue Mobilization B patellar tendon Body Location B Mobilization Type Cross-Friction Intensity/Depth Moderate Body Position Sitting Comments Long sitting 1 Body Location B anterior and posterior shins /feet Mobilization Type Myofascial Release Intensity/Depth Superficial Body Position long sitting (rolled towel under B ischial tuberosities) Comments MFR was performed to B anterior and posterior shins and feet, PROM was performed at the ankles and feet Manual Techniques 2 Type manual stretching for the gastroc/soleus complex Body Position Supine 1 Type PROM stretches were performed at B ankles and feet, manual stretching Body Location B PF/ DF Body Position Supine Comments improving ankle ROM with manual stretches PT-OP-R Modalities Start: 02/24/20 15:25 Freq: Status: Active Protocol: Document 03/25/20 13:46 [facility] (Rec: 03/29/20 11:58 SP [id number]) Hot Pack/Cold Pack Treatment Hot Pack Location R shld Patient Position Sitting Treatment Duration (minutes) 10 Patient Tolerance Good Comments decreased in discomfort anterior R shld end of tx. PT-OP-T Assessment and Plan Start: 01/28/20 11:22 Freq: Status: Active Protocol: Document 05/05/20 15:01 [facility] (Rec: 05/05/20 15:04 [facility] [email or web address]) Physical Therapy Assessment Goals Four Impairment Fay is not currently engaging in a home exercise program Short Term Goal (STG) Fay is instructed in exercises and gentle stretches as we progress through therapy that she is able to do at home. Fay is now working on a home stretching program for her LE and feet. She has also started cardiac rehab along with PT STG Duration 4-8 weeks Three Impairment Pain prevents Fay from standing more than 10 min and walking > 1/4 mile Post Office Clerk Goal (LTG) Fay is able to increase her tolerance for standing to 30 minutes and walking 1/2 mile or greater at a time Fay has been working on increasing her time walking . She has been able to walk on the treadmill in the clinic for 20 minutes LTG Duration 8 weeks Two Impairment Limited ankle ROM creating difficulty with gait and balance activities Post Office Clerk Goal (LTG) Fay demonstrates a improved in ankle ROM by at least 5 degrees for DF/PF/INV/EVR to assist with balance and gait activities Some progress LTG Duration 8 weeks One Impairment Pain rated 6/10 in B LE Short Term Goal (STG) Fay has a reduction in pain to 4-5/10 with manual therapy and ROM exercises GOOD PROGRESS Senior Care Goal (LTG) With manual therapy techniques and a home stretching/ exercise program Fay is able to reduce her pain from 6/10 tp 2-3/10 Some progress Progress Towards Goals Progress Towards Goals Progressing Toward Goals Assessment Summary Assessment Fay is doing well with PT and has been able to increase her walking distance to 20 minutes now. She still has pain from the plantar aspect of her feet however she is tolerating more and feels that therapy helps. She would benefit from continued PT Physical Therapy Plan Frequency and Duration Frequency of Treatment 2x/Week Duration of Treatment 8 Plan of Care Start Date 05/05/20 Plan of Care End Date 06/21/20 Therapeutic Interventions Therapeutic Interventions Balance Training,Home Exercise Program,Manual Therapy, Neuromuscular Re-education, Patient/Caregiver Education, Self-Care/Home Management,Soft Tissue Mobilization, Therapeutic Exercises Next Visit Focus/Plan Next Note Type Treatment Note Next Visit Plan inspect the skin on the plantar surface of the left foot, continue to work on ankle ROM and decreasing myofascial and scar tissue restrictions
--- NOTE | 2020-05-05 15:07 | PT.OPPOC ---
Physical, Occupational & Speech Therapy At [facility] Current Diagnoses Systemic sclerosis, unspecified (05/05/20) Visit Care Team Role Provider Type Timur Schwartz MD Primary Care Provider Physician Specialty: Internal Medicine Address: [address] [place] [address], [id number] Email: [email or web address] Gage Palomares DO Attending Provider Non-Staff Referring Provider Specialty: Dermatology Address: [address] [place] [address], [id number] Email: Plan Of Care PT-OP-T Assessment and Plan Start: 01/28/20 11:22 Freq: Status: Active Protocol: Document 05/05/20 15:01 [facility] (Rec: 05/05/20 15:04 [facility] [email or web address]) Physical Therapy Assessment Goals Four Impairment Fay is not currently engaging in a home exercise program Short Term Goal (STG) Fay is instructed in exercises and gentle stretches as we progress through therapy that she is able to do at home. Fay is now working on a home stretching program for her LE and feet. She has also started cardiac rehab along with PT STG Duration 4-8 weeks Three Impairment Pain prevents Fay from standing more than 10 min and walking > 1/4 mile Pattern Painter Goal (LTG) Fay is able to increase her tolerance for standing to 30 minutes and walking 1/2 mile or greater at a time Fay has been working on increasing her time walking . She has been able to walk on the treadmill in the clinic for 20 minutes LTG Duration 8 weeks Two Impairment Limited ankle ROM creating difficulty with gait and balance activities Pattern Painter Goal (LTG) Fay demonstrates a improved in ankle ROM by at least 5 degrees for DF/PF/INV/EVR to assist with balance and gait activities Some progress LTG Duration 8 weeks One Impairment Pain rated 6/10 in B LE Short Term Goal (STG) Fay has a reduction in pain to 4-5/10 with manual therapy and ROM exercises GOOD PROGRESS Penitentiary Goal (LTG) With manual therapy techniques and a home stretching/ exercise program Fay is able to reduce her pain from 6/10 tp 2-3/10 Some progress Progress Towards Goals Progress Towards Goals Progressing Toward Goals Assessment Summary Assessment Fay is doing well with PT and has been able to increase her walking distance to 20 minutes now. She still has pain from the plantar aspect of her feet however she is tolerating more and feels that therapy helps. She would benefit from continued PT Physical Therapy Plan Frequency and Duration Frequency of Treatment 2x/Week Duration of Treatment 8 Plan of Care Start Date 05/05/20 Plan of Care End Date 06/21/20 Therapeutic Interventions Therapeutic Interventions Balance Training,Home Exercise Program,Manual Therapy, Neuromuscular Re-education, Patient/Caregiver Education, Self-Care/Home Management,Soft Tissue Mobilization, Therapeutic Exercises Next Visit Focus/Plan Next Note Type Treatment Note Next Visit Plan inspect the skin on the plantar surface of the left foot, continue to work on ankle ROM and decreasing myofascial and scar tissue restrictions Plan of Care Dates Plan of Care Start Date 05/05/20 Plan of Care End Date 06/21/20 Electronically Signed by: Nidhi Villanueva, PT 05/05/20 4900 Please Sign and Return: I have reviewed this Plan of Care and certify that the skilled therapy services above are required to meet the patient?s needs. Physician Signature Date Printed Name and Credentials Clinical Instructor Signature Printed Name and Credentials
--- NOTE | 2020-05-09 13:00 | PT.OTN ---
Current Diagnoses Systemic sclerosis, unspecified (05/09/20) Physical Therapy Treatment Note PT-OP-A Visit Information Start: 01/28/20 11:22 Freq: Status: Active Protocol: Document 05/09/20 12:16 SP (Rec: 05/09/20 13:00 SP [id number]) Out-Patient Physical Therapy Visit Information Visit Information Visit Type Treatment Note Visit Start Time 12:16 Visit Stop Time 13:00 Total Visit Minutes 44 Visit Number 21 Number of SHINGLER Visits 1 PT-OP-B Current Condition Start: 01/28/20 11:22 Freq: Status: Active Protocol: Document 01/28/20 11:26 [facility] (Rec: 01/28/20 11:40 [facility] [id number]) Current Condition History of Current Condition Onset Date Pt has a chronic hx of scleroderma, recent flare after a [place] July 08 Current Complaints painful ROM LE especially the ankles/feet,painful gait, decreased balance History of Current Condition Pt has a hisotry of scleroderma that affects her LE. This makes her legs so tight she has lost ROM in her ankles. She reports pain with walking, decresased balance and poor energy. She has been seen in PT years ago for help reducing tightness in her legs. She notes that symptms increased following a myocardial infacrtion in June of 2019. Fay reports for days before her heart attack she was having a buring pain in her chest, she was taken to the ER at [facility] and then sent to [facility] She was transfered from [facility] to [facility] in [place]. She had 2 stents put in and then had a GI bleed. When she returned home and for awhile ( a week or two) she felt increased energy. But then it went away. Has new symptoms of psorasis and reports her legs feel very bound. Taking Consentyx the injection for Psorasis. The scleroderma in her feet and legs feels worse. She hasn't had treatment in so many years for her legs. She is taking blood thinners. SHe had been doing cardiac rehab and doing really good but had to stop due to covid 19 pandemic. She hasn't been walking as much as she had before and she reports 15-20 minutes is her walking max. Past medical history includes hx of cancer, depression, type II diabetes, dizzyness, memory loss, neuropathy, thyroid disorder, psychological disorder Treatment Goals Patient/Caregiver Goals pt reports she would like to get to 35-40 minutes of walking, other goals include balance training, strengthening, and loosening her leg muscles. Prior Functional Status Baseline Function- ADL's Independent Baseline Function- Mobility Independent Current Functional Impairments (Reported) Functional Limitations- Mobility/Gait Because of the tightness her balance is off and she feels really off balance. Standing hurts due to the leg tightnes. She notes both her feet and legs have increased pain after 10 minutes of static standing . She uses a cane for outdoor ambulation. Functional Limitations- Recreation/ limited recreational Hobbies activities due to decreased endurance and pain in her legs with activity PT-OP-C Subjective Start: 01/28/20 11:22 Freq: Status: Active Protocol: Document 05/09/20 12:16 SP (Rec: 05/09/20 13:00 SP [id number]) OP-PT Subjective Patient Comments Patient Comments Pt reports her wounds ( bruising on L lower quadrant, R hip and L arch) are healing much better. She stated has cardio rehab after Pt today so doesn't want to walk on treadmill today. PT-OP-F Manual Assessment Start: 01/28/20 11:22 Freq: Status: Active Protocol: Document 05/05/20 15:04 [facility] (Rec: 05/05/20 15:06 [facility] [email or web address]) Manual Assessments Soft Tissue Assessment Soft Tissue Mobility Assessment pt is showing some changes in calf and plantar flexion flexibility which is allowing her to progress her walking distance to 20 minutes PT-OP-J Posture/Palpation/Skin Start: 01/28/20 11:22 Freq: Status: Active Protocol: Document 01/28/20 11:15 [facility] (Rec: 02/02/20 12:33 [facility] [id number]) Palpation Assessment Location Two Palpation Location tibialis anterior Palpation Findings Soft Tissue Tightness Palpation Details scar tissue tightness throughout the muscle belly with limited ankle ROM into DF plantar fascia Palpation Location plantar fascia Palpation Findings Soft Tissue Tightness, Tenderness Palpation Details Very little flexibility from the plantar fascia due to tightness and limited ankle ROM One Palpation Location calf musculature B Palpation Findings Soft Tissue Tightness Palpation Details scar tissue noted throughout the muscular wall of the gastrocnemius and soleus musculature due to scleroderma PT-OP-K Range of Motion Start: 01/28/20 11:22 Freq: Status: Active Protocol: Document 05/05/20 15:04 [facility] (Rec: 05/05/20 15:06 [facility] [email or web address]) Ankle and Foot Goniometric Range of Motion Ankle and Foot Right Ankle/Foot ROM WFL No Testing Position Supine Dorsiflexion with Knee Flexed 8 Dorsiflexion with Knee Extended 4 Plantarflexion 8 Inversion 8 Eversion 8 Left Ankle/Foot ROM WFL No Testing Position Supine Dorsiflexion with Knee Flexed 10 Dorsiflexion with Knee Extended 5 Plantarflexion 8 Inversion 8 Eversion 8 PT-OP-M Strength Start: 01/28/20 11:22 Freq: Status: Active Protocol: Document 05/05/20 15:04 [facility] (Rec: 05/05/20 15:06 [facility] [email or web address]) Ankle/Foot Strength Ankle and Foot Manual Muscle Testing Right Dorsiflexion (L4) 3 Fair Plantarflexion (S1) 3 Fair Inversion 3 Fair Eversion (S1) 3 Fair Left Dorsiflexion (L4) 3 Fair Plantarflexion (S1) 3 Fair Inversion 3 Fair Eversion (S1) 3 Fair PT-OP-Q Treatments Start: 01/28/20 11:22 Freq: Status: Active Protocol: Document 05/09/20 12:16 SP (Rec: 05/09/20 13:00 SP [id number]) Therapeutic Exercises Standing Exercises Dynamic eccentric calf raises Side bilateral Resistance Rail contact Reps/Minutes x10 step up/ downs Side bilateral Equipment Used L HR Reps/Minutes x5 leading R and L ankle mobility/anterior hip stretch Side bilateral Resistance AROM Equipment Used 2 nd step, B HR Reps/Minutes x5 Manual Therapy Treatment Soft Tissue Mobilization B patellar tendon Body Location B Mobilization Type Cross-Friction Intensity/Depth Moderate Body Position Sitting Comments Long sitting 1 Body Location B anterior and posterior shins /feet Mobilization Type Myofascial Release Intensity/Depth Superficial Body Position long sitting (rolled towel under B ischial tuberosities) Comments MFR was performed to B anterior and posterior shins and feet, PROM was performed at the ankles and feet Joint Mobilizations Patella mobes Joint B Direction med/lat/sup/inf Grade II Body Position Sitting Comments Long sitting. Manual Techniques 2 Type manual stretching for the gastroc/soleus complex Body Position Supine 1 Type PROM stretches were performed at B ankles and feet, manual stretching Body Location B PF/ DF Body Position Supine Comments improving ankle ROM with manual stretches PT-OP-R Modalities Start: 02/24/20 15:25 Freq: Status: Active Protocol: Document 03/25/20 13:46 SP (Rec: 03/29/20 11:58 SP [id number]) Hot Pack/Cold Pack Treatment Hot Pack Location R shld Patient Position Sitting Treatment Duration (minutes) 10 Patient Tolerance Good Comments decreased in discomfort anterior R shld end of tx. PT-OP-T Assessment and Plan Start: 01/28/20 11:22 Freq: Status: Active Protocol: Document 05/09/20 12:16 SP (Rec: 05/09/20 13:00 SP [id number]) Physical Therapy Assessment Goals Four Impairment Fay is not currently engaging in a home exercise program Short Term Goal (STG) Fay is instructed in exercises and gentle stretches as we progress through therapy that she is able to do at home. Fay is now working on a home stretching program for her LE and feet. She has also started cardiac rehab along with PT STG Duration 4-8 weeks Three Impairment Pain prevents Fay from standing more than 10 min and walking > 1/4 mile [employer] System Operator Goal (LTG) Fay is able to increase her tolerance for standing to 30 minutes and walking 1/2 mile or greater at a time Fay has been working on increasing her time walking . She has been able to walk on the treadmill in the clinic for 20 minutes LTG Duration 8 weeks Two Impairment Limited ankle ROM creating difficulty with gait and balance activities Shelter Goal (LTG) Fay demonstrates a improved in ankle ROM by at least 5 degrees for DF/PF/INV/EVR to assist with balance and gait activities Some progress LTG Duration 8 weeks One Impairment Pain rated 6/10 in B LE Short Term Goal (STG) Fay has a reduction in pain to 4-5/10 with manual therapy and ROM exercises GOOD PROGRESS Shelter Goal (LTG) With manual therapy techniques and a home stretching/ exercise program Fay is able to reduce her pain from 6/10 tp 2-3/10 Some progress Assessment Summary Assessment Skin inspection over identified areas in subjective , closed intact. Pt responded well to manual I feel so much looser. Cued for dynamic ankle/knee/ hip mobility prep for cardio rehab post PT today. Pt looked more segmental LE movement when leaving. Physical Therapy Plan Frequency and Duration Frequency of Treatment 2x/Week Duration of Treatment 8 Plan of Care Start Date 05/05/20 Plan of Care End Date 06/21/20 Therapeutic Interventions Therapeutic Interventions Balance Training,Home Exercise Program,Manual Therapy, Neuromuscular Re-education, Patient/Caregiver Education, Self-Care/Home Management,Soft Tissue Mobilization, Therapeutic Exercises Next Visit Focus/Plan Next Note Type Treatment Note Next Visit Plan Continue inspect the skin on the plantar surface of the left foot, continue to work on ankle ROM and decreasing myofascial and scar tissue restrictions
--- NOTE | 2020-05-12 13:03 | PT.OTN ---
Current Diagnoses Systemic sclerosis, unspecified (05/12/20) Physical Therapy Treatment Note PT-OP-A Visit Information Start: 01/28/20 11:22 Freq: Status: Active Protocol: Document 05/12/20 12:17 SP (Rec: 05/12/20 16:15 SP [id number]) Out-Patient Physical Therapy Visit Information Visit Information Visit Type Treatment Note Visit Start Time 12:17 Visit Stop Time 13:03 Total Visit Minutes 43 Visit Number 22 Number of REAL ESTATE LEASING AGENT Visits 2 PT-OP-B Current Condition Start: 01/28/20 11:22 Freq: Status: Active Protocol: Document 01/28/20 11:26 AMH (Rec: 01/28/20 11:40 AMH [id number]) Current Condition History of Current Condition Onset Date Pt has a chronic hx of scleroderma, recent flare after a CO July 08 Current Complaints painful ROM LE especially the ankles/feet,painful gait, decreased balance History of Current Condition Pt has a hisotry of scleroderma that affects her LE. This makes her legs so tight she has lost ROM in her ankles. She reports pain with walking, decresased balance and poor energy. She has been seen in PT years ago for help reducing tightness in her legs. She notes that symptms increased following a myocardial infacrtion in June of 2019. Fay reports for days before her heart attack she was having a buring pain in her chest, she was taken to the ER at [facility] and then sent to [facility]. She was transfered from [facility] to [facility] in [place]. She had 2 stents put in and then had a GI bleed. When she returned home and for awhile ( a week or two) she felt increased energy. But then it went away. Has new symptoms of psorasis and reports her legs feel very bound. Taking Consentyx the injection for Psorasis. The scleroderma in her feet and legs feels worse. She hasn't had treatment in so many years for her legs. She is taking blood thinners. SHe had been doing cardiac rehab and doing really good but had to stop due to covid 19 pandemic. She hasn't been walking as much as she had before and she reports 15-20 minutes is her walking max. Past medical history includes hx of cancer, depression, type II diabetes, dizzyness, memory loss, neuropathy, thyroid disorder, psychological disorder Treatment Goals Patient/Caregiver Goals pt reports she would like to get to 35-40 minutes of walking, other goals include balance training, strengthening, and loosening her leg muscles. Prior Functional Status Baseline Function- ADL's Independent Baseline Function- Mobility Independent Current Functional Impairments (Reported) Functional Limitations- Mobility/Gait Because of the tightness her balance is off and she feels really off balance. Standing hurts due to the leg tightnes. She notes both her feet and legs have increased pain after 10 minutes of static standing . She uses a cane for outdoor ambulation. Functional Limitations- Recreation/ limited recreational Hobbies activities due to decreased endurance and pain in her legs with activity PT-OP-C Subjective Start: 01/28/20 11:22 Freq: Status: Active Protocol: Document 05/12/20 12:17 SP (Rec: 05/12/20 16:15 SP [id number]) OP-PT Subjective Patient Comments Patient Comments Pt reported felt much more mobility in LEs after left last tx before cardio rehab and has scheduled same back to back today. PT-OP-F Manual Assessment Start: 01/28/20 11:22 Freq: Status: Active Protocol: Document 05/05/20 15:04 AMH (Rec: 05/05/20 15:06 AMH [email or web address]) Manual Assessments Soft Tissue Assessment Soft Tissue Mobility Assessment pt is showing some changes in calf and plantar flexion flexibility which is allowing her to progress her walking distance to 20 minutes PT-OP-J Posture/Palpation/Skin Start: 01/28/20 11:22 Freq: Status: Active Protocol: Document 01/28/20 11:15 AMH (Rec: 02/02/20 12:33 AMH [id number]) Palpation Assessment Location Two Palpation Location tibialis anterior Palpation Findings Soft Tissue Tightness Palpation Details scar tissue tightness throughout the muscle belly with limited ankle ROM into DF plantar fascia Palpation Location plantar fascia Palpation Findings Soft Tissue Tightness, Tenderness Palpation Details Very little flexibility from the plantar fascia due to tightness and limited ankle ROM One Palpation Location calf musculature B Palpation Findings Soft Tissue Tightness Palpation Details scar tissue noted throughout the muscular wall of the gastrocnemius and soleus musculature due to scleroderma PT-OP-K Range of Motion Start: 01/28/20 11:22 Freq: Status: Active Protocol: Document 05/05/20 15:04 AMH (Rec: 05/05/20 15:06 AMH [email or web address]) Ankle and Foot Goniometric Range of Motion Ankle and Foot Right Ankle/Foot ROM WFL No Testing Position Supine Dorsiflexion with Knee Flexed 8 Dorsiflexion with Knee Extended 4 Plantarflexion 8 Inversion 8 Eversion 8 Left Ankle/Foot ROM WFL No Testing Position Supine Dorsiflexion with Knee Flexed 10 Dorsiflexion with Knee Extended 5 Plantarflexion 8 Inversion 8 Eversion 8 PT-OP-M Strength Start: 01/28/20 11:22 Freq: Status: Active Protocol: Document 05/05/20 15:04 AMH (Rec: 05/05/20 15:06 [facility] [email or web address]) Ankle/Foot Strength Ankle and Foot Manual Muscle Testing Right Dorsiflexion (L4) 3 Fair Plantarflexion (S1) 3 Fair Inversion 3 Fair Eversion (S1) 3 Fair Left Dorsiflexion (L4) 3 Fair Plantarflexion (S1) 3 Fair Inversion 3 Fair Eversion (S1) 3 Fair PT-OP-Q Treatments Start: 01/28/20 11:22 Freq: Status: Active Protocol: Document 05/12/20 12:17 SP (Rec: 05/12/20 16:15 SP [id number]) Gym Equipment Shuttle Balance red clips Details WBOS Reps/Duration 5 min Comments 1. wt shift 2. stationary 3. head turns Min A Therapeutic Exercises Standing Exercises hip abd, ext Resistance TB #1 Equipment Used rail Reps/Minutes x5 each direction BLE band walk Standing Exercise Name lateral Resistance tb #1 Equipment Used rail Reps/Minutes 10 ft x2laps calf raises Standing Exercise Name eccentric directioning Side bilateral Equipment Used 4 step, B HR Reps/Minutes x10 Manual Therapy Treatment Soft Tissue Mobilization B patellar tendon Body Location B Mobilization Type Cross-Friction Intensity/Depth Moderate Body Position Sitting Comments Long sitting 1 Body Location B anterior and posterior shins /feet Mobilization Type Myofascial Release Intensity/Depth Superficial Body Position long sitting (rolled towel under B ischial tuberosities) Comments MFR was performed to B anterior and posterior shins and feet, PROM was performed at the ankles and feet Joint Mobilizations Patella mobes Joint B Direction med/lat/sup/inf Grade II Body Position Sitting Comments Long sitting. Manual Techniques 2 Type manual stretching for the gastroc/soleus complex Body Position Supine 1 Type PROM stretches were performed at B ankles and feet, manual stretching Body Location B PF/ DF Body Position Supine Comments improving ankle ROM with manual stretches PT-OP-R Modalities Start: 02/24/20 15:25 Freq: Status: Active Protocol: Document 03/25/20 13:46 SP (Rec: 03/29/20 11:58 SP [id number]) Hot Pack/Cold Pack Treatment Hot Pack Location R shld Patient Position Sitting Treatment Duration (minutes) 10 Patient Tolerance Good Comments decreased in discomfort anterior R shld end of tx. PT-OP-T Assessment and Plan Start: 01/28/20 11:22 Freq: Status: Active Protocol: Document 05/12/20 12:17 SP (Rec: 05/12/20 16:15 SP [id number]) Physical Therapy Assessment Goals Four Impairment Fay is not currently engaging in a home exercise program Short Term Goal (STG) Fay is instructed in exercises and gentle stretches as we progress through therapy that she is able to do at home. Fay is now working on a home stretching program for her LE and feet. She has also started cardiac rehab along with PT STG Duration 4-8 weeks Three Impairment Pain prevents Fay from standing more than 10 min and walking > 1/4 mile Logistics Planner Goal (LTG) Fay is able to increase her tolerance for standing to 30 minutes and walking 1/2 mile or greater at a time Fay has been working on increasing her time walking . She has been able to walk on the treadmill in the clinic for 20 minutes LTG Duration 8 weeks Two Impairment Limited ankle ROM creating difficulty with gait and balance activities Logistics Planner Goal (LTG) Fay demonstrates a improved in ankle ROM by at least 5 degrees for DF/PF/INV/EVR to assist with balance and gait activities Some progress LTG Duration 8 weeks One Impairment Pain rated 6/10 in B LE Short Term Goal (STG) Fay has a reduction in pain to 4-5/10 with manual therapy and ROM exercises GOOD PROGRESS Snf Goal (LTG) With manual therapy techniques and a home stretching/ exercise program Fay is able to reduce her pain from 6/10 tp 2-3/10 Some progress Assessment Summary Assessment Pt tolerated tx well, started with manual, L foot small sore improving, little pink and scabbing more, intact. Initiated ankle eccentric calf raises and glut facilitation band walks and balance w/ ankle ROM today with good feedback. I feel my muscles working and can move better and still have energy to go to cardio rehab now. Physical Therapy Plan Frequency and Duration Frequency of Treatment 2x/Week Duration of Treatment 8 Plan of Care Start Date 05/05/20 Plan of Care End Date 06/21/20 Therapeutic Interventions Therapeutic Interventions Balance Training,Home Exercise Program,Manual Therapy, Neuromuscular Re-education, Patient/Caregiver Education, Self-Care/Home Management,Soft Tissue Mobilization, Therapeutic Exercises Next Visit Focus/Plan Next Note Type Treatment Note Next Visit Plan Assess response to manual then shuttle balance and eccentri calf then glut strengthening at rail last tx. Continue inspect the skin on the plantar surface of the left foot, continue to work on ankle ROM and decreasing myofascial and scar tissue restrictions
--- NOTE | 2020-05-16 13:06 | PT.OTN ---
Current Diagnoses Systemic sclerosis, unspecified (05/16/20) Physical Therapy Treatment Note PT-OP-A Visit Information Start: 01/28/20 11:22 Freq: Status: Active Protocol: Document 05/16/20 12:22 SP (Rec: 05/16/20 16:19 SP [id number]) Out-Patient Physical Therapy Visit Information Visit Information Visit Type Treatment Note Visit Start Time 12:22 Visit Stop Time 13:06 Total Visit Minutes 44 Visit Number 23 Number of ELECTRICIAN'S HELPER Visits 3 PT-OP-B Current Condition Start: 01/28/20 11:22 Freq: Status: Active Protocol: Document 01/28/20 11:26 AMH (Rec: 01/28/20 11:40 AMH [id number]) Current Condition History of Current Condition Onset Date Pt has a chronic hx of scleroderma, recent flare after a CA July 08 Current Complaints painful ROM LE especially the ankles/feet,painful gait, decreased balance History of Current Condition Pt has a hisotry of scleroderma that affects her LE. This makes her legs so tight she has lost ROM in her ankles. She reports pain with walking, decresased balance and poor energy. She has been seen in PT years ago for help reducing tightness in her legs. She notes that symptms increased following a myocardial infacrtion in June of 2019. Fay reports for days before her heart attack she was having a buring pain in her chest, she was taken to the ER at [facility] and then sent to [facility] She was transfered from [facility] to [facility] in [place]. She had 2 stents put in and then had a GI bleed. When she returned home and for awhile ( a week or two) she felt increased energy. But then it went away. Has new symptoms of psorasis and reports her legs feel very bound. Taking Consentyx the injection for Psorasis. The scleroderma in her feet and legs feels worse. She hasn't had treatment in so many years for her legs. She is taking blood thinners. SHe had been doing cardiac rehab and doing really good but had to stop due to covid 19 pandemic. She hasn't been walking as much as she had before and she reports 15-20 minutes is her walking max. Past medical history includes hx of cancer, depression, type II diabetes, dizzyness, memory loss, neuropathy, thyroid disorder, psychological disorder Treatment Goals Patient/Caregiver Goals pt reports she would like to get to 35-40 minutes of walking, other goals include balance training, strengthening, and loosening her leg muscles. Prior Functional Status Baseline Function- ADL's Independent Baseline Function- Mobility Independent Current Functional Impairments (Reported) Functional Limitations- Mobility/Gait Because of the tightness her balance is off and she feels really off balance. Standing hurts due to the leg tightnes. She notes both her feet and legs have increased pain after 10 minutes of static standing . She uses a cane for outdoor ambulation. Functional Limitations- Recreation/ limited recreational Hobbies activities due to decreased endurance and pain in her legs with activity PT-OP-C Subjective Start: 01/28/20 11:22 Freq: Status: Active Protocol: Document 05/16/20 12:22 SP (Rec: 05/16/20 16:19 SP [id number]) OP-PT Subjective Patient Comments Patient Comments Pt reported that after last tx went to cardio rehab as discussed and decreased energy level and not able to perform as usual, they assessed her BP and was low. PT-OP-F Manual Assessment Start: 01/28/20 11:22 Freq: Status: Active Protocol: Document 05/05/20 15:04 AMH (Rec: 05/05/20 15:06 AMH [email or web address]) Manual Assessments Soft Tissue Assessment Soft Tissue Mobility Assessment pt is showing some changes in calf and plantar flexion flexibility which is allowing her to progress her walking distance to 20 minutes PT-OP-J Posture/Palpation/Skin Start: 01/28/20 11:22 Freq: Status: Active Protocol: Document 01/28/20 11:15 AMH (Rec: 02/02/20 12:33 AMH [id number]) Palpation Assessment Location Two Palpation Location tibialis anterior Palpation Findings Soft Tissue Tightness Palpation Details scar tissue tightness throughout the muscle belly with limited ankle ROM into DF plantar fascia Palpation Location plantar fascia Palpation Findings Soft Tissue Tightness, Tenderness Palpation Details Very little flexibility from the plantar fascia due to tightness and limited ankle ROM One Palpation Location calf musculature B Palpation Findings Soft Tissue Tightness Palpation Details scar tissue noted throughout the muscular wall of the gastrocnemius and soleus musculature due to scleroderma PT-OP-K Range of Motion Start: 01/28/20 11:22 Freq: Status: Active Protocol: Document 05/05/20 15:04 AMH (Rec: 05/05/20 15:06 AMH [email or web address]) Ankle and Foot Goniometric Range of Motion Ankle and Foot Right Ankle/Foot ROM WFL No Testing Position Supine Dorsiflexion with Knee Flexed 8 Dorsiflexion with Knee Extended 4 Plantarflexion 8 Inversion 8 Eversion 8 Left Ankle/Foot ROM WFL No Testing Position Supine Dorsiflexion with Knee Flexed 10 Dorsiflexion with Knee Extended 5 Plantarflexion 8 Inversion 8 Eversion 8 PT-OP-M Strength Start: 01/28/20 11:22 Freq: Status: Active Protocol: Document 05/05/20 15:04 AMH (Rec: 05/05/20 15:06 [facility] [email or web address]) Ankle/Foot Strength Ankle and Foot Manual Muscle Testing Right Dorsiflexion (L4) 3 Fair Plantarflexion (S1) 3 Fair Inversion 3 Fair Eversion (S1) 3 Fair Left Dorsiflexion (L4) 3 Fair Plantarflexion (S1) 3 Fair Inversion 3 Fair Eversion (S1) 3 Fair PT-OP-Q Treatments Start: 01/28/20 11:22 Freq: Status: Active Protocol: Document 05/16/20 12:22 SP (Rec: 05/16/20 16:19 SP [id number]) Therapeutic Exercises Sitting Exercises glut/pirformis stretch Sitting Exercise Name cradle knee to chest w/ foot on opposite knee Side bilateral Reps/Minutes 30 x2 Comments soft chair Standing Exercises band walk Standing Exercise Name lateral Resistance tb #1 Equipment Used no rail today, stable Reps/Minutes 10 ft x2laps calf raises Standing Exercise Name eccentric directioning Side bilateral Equipment Used 4 step, B HR Reps/Minutes x10 Manual Therapy Treatment Soft Tissue Mobilization B patellar tendon Body Location B Mobilization Type Cross-Friction Intensity/Depth Moderate Body Position Sitting Comments Long sitting 1 Body Location B anterior and posterior shins /feet Mobilization Type Myofascial Release Intensity/Depth Superficial Body Position long sitting (rolled towel under B ischial tuberosities) Comments MFR was performed to B anterior and posterior shins and feet, PROM was performed at the ankles and feet Manual Techniques 2 Type manual stretching for the gastroc/soleus complex Body Position Supine 1 Type PROM stretches were performed at B ankles and feet, manual stretching Body Location B PF/ DF Body Position Supine Comments improving ankle ROM with manual stretches PT-OP-R Modalities Start: 02/24/20 15:25 Freq: Status: Active Protocol: Document 03/25/20 13:46 SP (Rec: 03/29/20 11:58 SP [id number]) Hot Pack/Cold Pack Treatment Hot Pack Location R shld Patient Position Sitting Treatment Duration (minutes) 10 Patient Tolerance Good Comments decreased in discomfort anterior R shld end of tx. PT-OP-T Assessment and Plan Start: 01/28/20 11:22 Freq: Status: Active Protocol: Document 05/16/20 12:22 SP (Rec: 05/16/20 16:19 SP [id number]) Physical Therapy Assessment Goals Four Impairment Fay is not currently engaging in a home exercise program Short Term Goal (STG) Fay is instructed in exercises and gentle stretches as we progress through therapy that she is able to do at home. Fay is now working on a home stretching program for her LE and feet. She has also started cardiac rehab along with PT STG Duration 4-8 weeks Three Impairment Pain prevents Fay from standing more than 10 min and walking > 1/4 mile Residential Goal (LTG) Fay is able to increase her tolerance for standing to 30 minutes and walking 1/2 mile or greater at a time Fay has been working on increasing her time walking . She has been able to walk on the treadmill in the clinic for 20 minutes LTG Duration 8 weeks Two Impairment Limited ankle ROM creating difficulty with gait and balance activities Residential Goal (LTG) Fay demonstrates a improved in ankle ROM by at least 5 degrees for DF/PF/INV/EVR to assist with balance and gait activities Some progress LTG Duration 8 weeks One Impairment Pain rated 6/10 in B LE Short Term Goal (STG) Fay has a reduction in pain to 4-5/10 with manual therapy and ROM exercises GOOD PROGRESS Fiber Technician Goal (LTG) With manual therapy techniques and a home stretching/ exercise program Fay is able to reduce her pain from 6/10 tp 2-3/10 Some progress Assessment Summary Assessment Pt reported was not able to complete normal activity in cardio rehab after last tx, may need to adjust ther ex for tolerance if CR is after PT, maybe many times in future ( ask each day seen). Next tx look forward for awareness may not be beneficial to progress in both having on same day. Pt tolerated ther ex well post manual, stated I feel looser in my ankles. Able to complete 2 HEP review ex and will let us know next tx how tolerated 1 hr later in CR. Physical Therapy Plan Frequency and Duration Frequency of Treatment 2x/Week Duration of Treatment 8 Plan of Care Start Date 05/05/20 Plan of Care End Date 06/21/20 Therapeutic Interventions Therapeutic Interventions Balance Training,Home Exercise Program,Manual Therapy, Neuromuscular Re-education, Patient/Caregiver Education, Self-Care/Home Management,Soft Tissue Mobilization, Therapeutic Exercises Next Visit Focus/Plan Next Note Type Treatment Note Next Visit Plan Assess response to manual, band walk, eccentri calf raises and glut stretch. Able to complete band walk without rail support /balance last tx. Continue inspect the skin on the plantar surface of the left foot, continue to work on ankle ROM and decreasing myofascial and scar tissue restrictions
--- NOTE | 2020-05-22 15:41 | PT.OTN ---
Current Diagnoses Systemic sclerosis, unspecified (05/19/20) Physical Therapy Treatment Note PT-OP-A Visit Information Start: 01/28/20 11:22 Freq: Status: Active Protocol: Document 05/19/20 13:00 [facility] (Rec: 05/22/20 15:41 [facility] [email or web address]) Out-Patient Physical Therapy Visit Information Visit Information Visit Type Treatment Note Visit Start Time 13:00 Visit Stop Time 13:45 Total Visit Minutes 45 Visit Number 24 Number of PLATE WORKER HELPER Visits 0 PT-OP-B Current Condition Start: 01/28/20 11:22 Freq: Status: Active Protocol: Document 01/28/20 11:26 [facility] (Rec: 01/28/20 11:40 [facility] [id number]) Current Condition History of Current Condition Onset Date Pt has a chronic hx of scleroderma, recent flare after a [place] July 08 Current Complaints painful ROM LE especially the ankles/feet,painful gait, decreased balance History of Current Condition Pt has a hisotry of scleroderma that affects her LE. This makes her legs so tight she has lost ROM in her ankles. She reports pain with walking, decresased balance and poor energy. She has been seen in PT years ago for help reducing tightness in her legs. She notes that symptms increased following a myocardial infacrtion in June of 2019. Fay reports for days before her heart attack she was having a buring pain in her chest, she was taken to the ER at [facility] and then sent to [facility]. She was transfered from [facility] to [facility] in [place]. She had 2 stents put in and then had a GI bleed. When she returned home and for awhile ( a week or two) she felt increased energy. But then it went away. Has new symptoms of psorasis and reports her legs feel very bound. Taking Consentyx the injection for Psorasis. The scleroderma in her feet and legs feels worse. She hasn't had treatment in so many years for her legs. She is taking blood thinners. SHe had been doing cardiac rehab and doing really good but had to stop due to covid 19 pandemic. She hasn't been walking as much as she had before and she reports 15-20 minutes is her walking max. Past medical history includes hx of cancer, depression, type II diabetes, dizzyness, memory loss, neuropathy, thyroid disorder, psychological disorder Treatment Goals Patient/Caregiver Goals pt reports she would like to get to 35-40 minutes of walking, other goals include balance training, strengthening, and loosening her leg muscles. Prior Functional Status Baseline Function- ADL's Independent Baseline Function- Mobility Independent Current Functional Impairments (Reported) Functional Limitations- Mobility/Gait Because of the tightness her balance is off and she feels really off balance. Standing hurts due to the leg tightnes. She notes both her feet and legs have increased pain after 10 minutes of static standing . She uses a cane for outdoor ambulation. Functional Limitations- Recreation/ limited recreational Hobbies activities due to decreased endurance and pain in her legs with activity PT-OP-C Subjective Start: 01/28/20 11:22 Freq: Status: Active Protocol: Document 05/19/20 13:00 [facility] (Rec: 05/22/20 15:41 [facility] [email or web address]) OP-PT Subjective Patient Comments Patient Comments Fay reports she was pretty wiped out from last PT session . She is going to cardiac rehab today and has been able to walk as much as 20 minutes on the treadmill. She feels the manual work and stretching to her legs helps with her ambulation. PT-OP-F Manual Assessment Start: 01/28/20 11:22 Freq: Status: Active Protocol: Document 05/05/20 15:04 [facility] (Rec: 05/05/20 15:06 [facility] [email or web address]) Manual Assessments Soft Tissue Assessment Soft Tissue Mobility Assessment pt is showing some changes in calf and plantar flexion flexibility which is allowing her to progress her walking distance to 20 minutes PT-OP-J Posture/Palpation/Skin Start: 01/28/20 11:22 Freq: Status: Active Protocol: Document 01/28/20 11:15 [facility] (Rec: 02/02/20 12:33 [facility] [id number]) Palpation Assessment Location Two Palpation Location tibialis anterior Palpation Findings Soft Tissue Tightness Palpation Details scar tissue tightness throughout the muscle belly with limited ankle ROM into DF plantar fascia Palpation Location plantar fascia Palpation Findings Soft Tissue Tightness, Tenderness Palpation Details Very little flexibility from the plantar fascia due to tightness and limited ankle ROM One Palpation Location calf musculature B Palpation Findings Soft Tissue Tightness Palpation Details scar tissue noted throughout the muscular wall of the gastrocnemius and soleus musculature due to scleroderma PT-OP-K Range of Motion Start: 01/28/20 11:22 Freq: Status: Active Protocol: Document 05/05/20 15:04 [facility] (Rec: 05/05/20 15:06 [facility] [email or web address]) Ankle and Foot Goniometric Range of Motion Ankle and Foot Right Ankle/Foot ROM WFL No Testing Position Supine Dorsiflexion with Knee Flexed 8 Dorsiflexion with Knee Extended 4 Plantarflexion 8 Inversion 8 Eversion 8 Left Ankle/Foot ROM WFL No Testing Position Supine Dorsiflexion with Knee Flexed 10 Dorsiflexion with Knee Extended 5 Plantarflexion 8 Inversion 8 Eversion 8 PT-OP-M Strength Start: 01/28/20 11:22 Freq: Status: Active Protocol: Document 05/05/20 15:04 [facility] (Rec: 05/05/20 15:06 [facility] [email or web address]) Ankle/Foot Strength Ankle and Foot Manual Muscle Testing Right Dorsiflexion (L4) 3 Fair Plantarflexion (S1) 3 Fair Inversion 3 Fair Eversion (S1) 3 Fair Left Dorsiflexion (L4) 3 Fair Plantarflexion (S1) 3 Fair Inversion 3 Fair Eversion (S1) 3 Fair PT-OP-Q Treatments Start: 01/28/20 11:22 Freq: Status: Active Protocol: Document 05/19/20 13:00 [facility] (Rec: 05/22/20 15:41 [facility] [email or web address]) Manual Therapy Treatment Soft Tissue Mobilization 1 Body Location B anterior and posterior shins /feet Mobilization Type Myofascial Release Intensity/Depth Superficial Body Position long sitting (rolled towel under B ischial tuberosities) Comments MFR was performed to B anterior and posterior shins and feet, PROM was performed at the ankles and feet Manual Techniques 2 Type manual stretching for the gastroc/soleus complex Body Position Supine 1 Type PROM stretches were performed at B ankles and feet, manual stretching Body Location B PF/ DF Body Position Supine Comments improving ankle ROM with manual stretches PT-OP-R Modalities Start: 02/24/20 15:25 Freq: Status: Active Protocol: Document 03/25/20 13:46 [facility] (Rec: 03/29/20 11:58 [facility] [id number]) Hot Pack/Cold Pack Treatment Hot Pack Location R shld Patient Position Sitting Treatment Duration (minutes) 10 Patient Tolerance Good Comments decreased in discomfort anterior R shld end of tx. PT-OP-T Assessment and Plan Start: 01/28/20 11:22 Freq: Status: Active Protocol: Document 05/19/20 13:00 [facility] (Rec: 05/22/20 15:41 [facility] [email or web address]) Physical Therapy Assessment Assessment Summary Assessment Fay has been working on her calf stretches and rolling her arch on the ball at home. She had cardiac rehab following PT today so the focus was on releasing her calf from the scar tissue from radiation and working on ankle ROM to prepare her tissues for walking. Physical Therapy Plan Frequency and Duration Frequency of Treatment 2x/Week Duration of Treatment 8 Plan of Care Start Date 05/05/20 Plan of Care End Date 06/21/20 Therapeutic Interventions Therapeutic Interventions Balance Training,Home Exercise Program,Manual Therapy, Neuromuscular Re-education, Patient/Caregiver Education, Self-Care/Home Management,Soft Tissue Mobilization, Therapeutic Exercises Next Visit Focus/Plan Next Note Type Treatment Note Next Visit Plan Continue to work on releasing scar tissue in the LE to improve walking tolerance and gait, progress strengthening as tolerated.
--- NOTE | 2020-05-24 15:24 | PT.OTN ---
Current Diagnoses Systemic sclerosis, unspecified (05/24/20) Physical Therapy Treatment Note PT-OP-A Visit Information Start: 01/28/20 11:22 Freq: Status: Active Protocol: Document 05/24/20 14:35 [facility] (Rec: 05/24/20 15:43 [facility] [id number]) Out-Patient Physical Therapy Visit Information Visit Information Visit Type Treatment Note Visit Start Time 14:35 Visit Stop Time 15:24 Total Visit Minutes 49 Visit Number 25 Number of RETAIL BAKERY MANAGER Visits 1 PT-OP-B Current Condition Start: 01/28/20 11:22 Freq: Status: Active Protocol: Document 01/28/20 11:26 [facility] (Rec: 01/28/20 11:40 [facility] [id number]) Current Condition History of Current Condition Onset Date Pt has a chronic hx of scleroderma, recent flare after a [place] July 08 Current Complaints painful ROM LE especially the ankles/feet,painful gait, decreased balance History of Current Condition Pt has a hisotry of scleroderma that affects her LE. This makes her legs so tight she has lost ROM in her ankles. She reports pain with walking, decresased balance and poor energy. She has been seen in PT years ago for help reducing tightness in her legs. She notes that symptms increased following a myocardial infacrtion in June of 2019. Fay reports for days before her heart attack she was having a buring pain in her chest, she was taken to the ER at [facility] and then sent to [facility]. She was transfered from [facility] to [facility] in [place]. She had 2 stents put in and then had a GI bleed. When she returned home and for awhile ( a week or two) she felt increased energy. But then it went away. Has new symptoms of psorasis and reports her legs feel very bound. Taking Consentyx the injection for Psorasis. The scleroderma in her feet and legs feels worse. She hasn't had treatment in so many years for her legs. She is taking blood thinners. SHe had been doing cardiac rehab and doing really good but had to stop due to covid 19 pandemic. She hasn't been walking as much as she had before and she reports 15-20 minutes is her walking max. Past medical history includes hx of cancer, depression, type II diabetes, dizzyness, memory loss, neuropathy, thyroid disorder, psychological disorder Treatment Goals Patient/Caregiver Goals pt reports she would like to get to 35-40 minutes of walking, other goals include balance training, strengthening, and loosening her leg muscles. Prior Functional Status Baseline Function- ADL's Independent Baseline Function- Mobility Independent Current Functional Impairments (Reported) Functional Limitations- Mobility/Gait Because of the tightness her balance is off and she feels really off balance. Standing hurts due to the leg tightnes. She notes both her feet and legs have increased pain after 10 minutes of static standing . She uses a cane for outdoor ambulation. Functional Limitations- Recreation/ limited recreational Hobbies activities due to decreased endurance and pain in her legs with activity PT-OP-C Subjective Start: 01/28/20 11:22 Freq: Status: Active Protocol: Document 05/24/20 14:35 [facility] (Rec: 05/24/20 15:43 [facility] [id number]) OP-PT Subjective Patient Comments Patient Comments Pt reported doing pretty well , little spaced out today. I dont' have cardiorehab today ( only M, W, TH at 2). I want to walk on the TM today PT-OP-F Manual Assessment Start: 01/28/20 11:22 Freq: Status: Active Protocol: Document 05/05/20 15:04 [facility] (Rec: 05/05/20 15:06 [facility] [id number]) Manual Assessments Soft Tissue Assessment Soft Tissue Mobility Assessment pt is showing some changes in calf and plantar flexion flexibility which is allowing her to progress her walking distance to 20 minutes PT-OP-J Posture/Palpation/Skin Start: 01/28/20 11:22 Freq: Status: Active Protocol: Document 01/28/20 11:15 [facility] (Rec: 02/02/20 12:33 [facility] [id number]) Palpation Assessment Location Two Palpation Location tibialis anterior Palpation Findings Soft Tissue Tightness Palpation Details scar tissue tightness throughout the muscle belly with limited ankle ROM into DF plantar fascia Palpation Location plantar fascia Palpation Findings Soft Tissue Tightness, Tenderness Palpation Details Very little flexibility from the plantar fascia due to tightness and limited ankle ROM One Palpation Location calf musculature B Palpation Findings Soft Tissue Tightness Palpation Details scar tissue noted throughout the muscular wall of the gastrocnemius and soleus musculature due to scleroderma PT-OP-K Range of Motion Start: 01/28/20 11:22 Freq: Status: Active Protocol: Document 05/05/20 15:04 [facility] (Rec: 05/05/20 15:06 [facility] [email or web address]) Ankle and Foot Goniometric Range of Motion Ankle and Foot Right Ankle/Foot ROM WFL No Testing Position Supine Dorsiflexion with Knee Flexed 8 Dorsiflexion with Knee Extended 4 Plantarflexion 8 Inversion 8 Eversion 8 Left Ankle/Foot ROM WFL No Testing Position Supine Dorsiflexion with Knee Flexed 10 Dorsiflexion with Knee Extended 5 Plantarflexion 8 Inversion 8 Eversion 8 PT-OP-M Strength Start: 01/28/20 11:22 Freq: Status: Active Protocol: Document 05/05/20 15:04 [facility] (Rec: 05/05/20 15:06 [facility] [id number]) Ankle/Foot Strength Ankle and Foot Manual Muscle Testing Right Dorsiflexion (L4) 3 Fair Plantarflexion (S1) 3 Fair Inversion 3 Fair Eversion (S1) 3 Fair Left Dorsiflexion (L4) 3 Fair Plantarflexion (S1) 3 Fair Inversion 3 Fair Eversion (S1) 3 Fair PT-OP-Q Treatments Start: 01/28/20 11:22 Freq: Status: Active Protocol: Document 05/24/20 14:35 [facility] (Rec: 05/24/20 15:43 SP [id number]) Cardio Equipment Treadmill Duration (Minutes) 10 Speed 1.5 Incline 1 Other regularly 15 min at 1.8 Manual Therapy Treatment Soft Tissue Mobilization B patellar tendon Body Location B Mobilization Type Cross-Friction Intensity/Depth Moderate Body Position Sitting Comments Long sitting 1 Body Location B anterior and posterior shins /feet Mobilization Type Myofascial Release Intensity/Depth Superficial Body Position long sitting (rolled towel under B ischial tuberosities) Comments MFR was performed to B anterior and posterior shins and feet, PROM was performed at the ankles and feet Joint Mobilizations Patella mobes Joint B Direction med/lat/sup/inf Grade II Body Position Sitting Comments Long sitting. Manual Techniques 2 Type manual stretching for the gastroc/soleus complex Body Position Supine 1 Type PROM stretches were performed at B ankles and feet, manual stretching Body Location B PF/ DF Body Position Supine Comments improving ankle ROM with manual stretches PT-OP-R Modalities Start: 02/24/20 15:25 Freq: Status: Active Protocol: Document 03/25/20 13:46 [facility] (Rec: 03/29/20 11:58 [facility] [id number]) Hot Pack/Cold Pack Treatment Hot Pack Location R shld Patient Position Sitting Treatment Duration (minutes) 10 Patient Tolerance Good Comments decreased in discomfort anterior R shld end of tx. PT-OP-T Assessment and Plan Start: 01/28/20 11:22 Freq: Status: Active Protocol: Document 05/24/20 14:35 [facility] (Rec: 05/24/20 15:43 [facility] [id number]) Physical Therapy Assessment Goals Four Impairment Fay is not currently engaging in a home exercise program Short Term Goal (STG) Fay is instructed in exercises and gentle stretches as we progress through therapy that she is able to do at home. Fay is now working on a home stretching program for her LE and feet. She has also started cardiac rehab along with PT STG Duration 4-8 weeks Three Impairment Pain prevents Fay from standing more than 10 min and walking > 1/4 mile Deep Fat Fry Cook Goal (LTG) Fay is able to increase her tolerance for standing to 30 minutes and walking 1/2 mile or greater at a time Fay has been working on increasing her time walking . She has been able to walk on the treadmill in the clinic for 20 minutes LTG Duration 8 weeks Two Impairment Limited ankle ROM creating difficulty with gait and balance activities Custodial Goal (LTG) Fay demonstrates a improved in ankle ROM by at least 5 degrees for DF/PF/INV/EVR to assist with balance and gait activities Some progress LTG Duration 8 weeks One Impairment Pain rated 6/10 in B LE Short Term Goal (STG) Fay has a reduction in pain to 4-5/10 with manual therapy and ROM exercises GOOD PROGRESS Custodial Goal (LTG) With manual therapy techniques and a home stretching/ exercise program Fay is able to reduce her pain from 6/10 tp 2-3/10 Some progress Assessment Summary Assessment Fay commented can feel the blood circulation going into my feet during manual retrograde STMs, PROM, stretching. Pt was able to tolerate walking on TM today with an incline stating I feel like I have more movement in my ankles and feet. Pt does not have cardiorehab today, only MWTH changing to 2 pm. Discussed AROM over tennsi ball next tx to assimulate BAPS board. Physical Therapy Plan Frequency and Duration Frequency of Treatment 2x/Week Duration of Treatment 8 Plan of Care Start Date 05/05/20 Plan of Care End Date 06/21/20 Therapeutic Interventions Therapeutic Interventions Balance Training,Home Exercise Program,Manual Therapy, Neuromuscular Re-education, Patient/Caregiver Education, Self-Care/Home Management,Soft Tissue Mobilization, Therapeutic Exercises Next Visit Focus/Plan Next Note Type Treatment Note Next Visit Plan Assess response to TM walking last tx. Continue per PT POC: to work on releasing scar tissue in the LE to improve walking tolerance and gait, progress strengthening as tolerated.
--- NOTE | 2020-05-27 14:00 | PT-OP ANOTE ---
Pt cancelled same day appt pre noon, I am not feeling well and am going back to bed.
--- NOTE | 2020-05-31 17:41 | PT.OTN ---
Current Diagnoses Systemic sclerosis, unspecified (05/31/20) Physical Therapy Treatment Note PT-OP-A Visit Information Start: 01/28/20 11:22 Freq: Status: Active Protocol: Document 05/31/20 17:26 [facility] (Rec: 05/31/20 17:40 [facility] [id number]) Out-Patient Physical Therapy Visit Information Visit Information Visit Type Treatment Note Visit Start Time 13:45 Visit Stop Time 14:30 Total Visit Minutes 45 Visit Number 26 Number of [employer] Visits 0 PT-OP-B Current Condition Start: 01/28/20 11:22 Freq: Status: Active Protocol: Document 01/28/20 11:26 [facility] (Rec: 01/28/20 11:40 [facility] [id number]) Current Condition History of Current Condition Onset Date Pt has a chronic hx of scleroderma, recent flare after a AR July 08 Current Complaints painful ROM LE especially the ankles/feet,painful gait, decreased balance History of Current Condition Pt has a hisotry of scleroderma that affects her LE. This makes her legs so tight she has lost ROM in her ankles. She reports pain with walking, decresased balance and poor energy. She has been seen in PT years ago for help reducing tightness in her legs. She notes that symptms increased following a myocardial infacrtion in June of 2019. Fay reports for days before her heart attack she was having a buring pain in her chest, she was taken to the ER at [facility] and then sent to [facility]. She was transfered from [facility] to [facility] in [place]. She had 2 stents put in and then had a GI bleed. When she returned home and for awhile ( a week or two) she felt increased energy. But then it went away. Has new symptoms of psorasis and reports her legs feel very bound. Taking Consentyx the injection for Psorasis. The scleroderma in her feet and legs feels worse. She hasn't had treatment in so many years for her legs. She is taking blood thinners. SHe had been doing cardiac rehab and doing really good but had to stop due to covid 19 pandemic. She hasn't been walking as much as she had before and she reports 15-20 minutes is her walking max. Past medical history includes hx of cancer, depression, type II diabetes, dizzyness, memory loss, neuropathy, thyroid disorder, psychological disorder Treatment Goals Patient/Caregiver Goals pt reports she would like to get to 35-40 minutes of walking, other goals include balance training, strengthening, and loosening her leg muscles. Prior Functional Status Baseline Function- ADL's Independent Baseline Function- Mobility Independent Current Functional Impairments (Reported) Functional Limitations- Mobility/Gait Because of the tightness her balance is off and she feels really off balance. Standing hurts due to the leg tightnes. She notes both her feet and legs have increased pain after 10 minutes of static standing . She uses a cane for outdoor ambulation. Functional Limitations- Recreation/ limited recreational Hobbies activities due to decreased endurance and pain in her legs with activity PT-OP-C Subjective Start: 01/28/20 11:22 Freq: Status: Active Protocol: Document 05/31/20 17:26 [facility] (Rec: 05/31/20 17:40 [facility] [id number]) OP-PT Subjective Patient Comments Patient Comments Fay notes she has been having increased trouble catching her breath. She feels the scleraderma has affected her lungs as well and this week she has been more out of breath PT-OP-F Manual Assessment Start: 01/28/20 11:22 Freq: Status: Active Protocol: Document 05/05/20 15:04 [facility] (Rec: 05/05/20 15:06 [facility] [email or web address]) Manual Assessments Soft Tissue Assessment Soft Tissue Mobility Assessment pt is showing some changes in calf and plantar flexion flexibility which is allowing her to progress her walking distance to 20 minutes PT-OP-J Posture/Palpation/Skin Start: 01/28/20 11:22 Freq: Status: Active Protocol: Document 01/28/20 11:15 [facility] (Rec: 02/02/20 12:33 [facility] [id number]) Palpation Assessment Location Two Palpation Location tibialis anterior Palpation Findings Soft Tissue Tightness Palpation Details scar tissue tightness throughout the muscle belly with limited ankle ROM into DF plantar fascia Palpation Location plantar fascia Palpation Findings Soft Tissue Tightness, Tenderness Palpation Details Very little flexibility from the plantar fascia due to tightness and limited ankle ROM One Palpation Location calf musculature B Palpation Findings Soft Tissue Tightness Palpation Details scar tissue noted throughout the muscular wall of the gastrocnemius and soleus musculature due to scleroderma PT-OP-K Range of Motion Start: 01/28/20 11:22 Freq: Status: Active Protocol: Document 05/05/20 15:04 [facility] (Rec: 05/05/20 15:06 [facility] [id number]) Ankle and Foot Goniometric Range of Motion Ankle and Foot Right Ankle/Foot ROM WFL No Testing Position Supine Dorsiflexion with Knee Flexed 8 Dorsiflexion with Knee Extended 4 Plantarflexion 8 Inversion 8 Eversion 8 Left Ankle/Foot ROM WFL No Testing Position Supine Dorsiflexion with Knee Flexed 10 Dorsiflexion with Knee Extended 5 Plantarflexion 8 Inversion 8 Eversion 8 PT-OP-M Strength Start: 01/28/20 11:22 Freq: Status: Active Protocol: Document 05/05/20 15:04 [facility] (Rec: 05/05/20 15:06 [facility] [id number]) Ankle/Foot Strength Ankle and Foot Manual Muscle Testing Right Dorsiflexion (L4) 3 Fair Plantarflexion (S1) 3 Fair Inversion 3 Fair Eversion (S1) 3 Fair Left Dorsiflexion (L4) 3 Fair Plantarflexion (S1) 3 Fair Inversion 3 Fair Eversion (S1) 3 Fair PT-OP-Q Treatments Start: 01/28/20 11:22 Freq: Status: Active Protocol: Document 05/31/20 17:26 [facility] (Rec: 05/31/20 17:40 [facility] [email or web address]) Cardio Equipment Treadmill Duration (Minutes) 15 Speed 1.5 Incline 1 Therapeutic Exercises Supine Exercises diaphragmatic breathing Supine Exercise Name diaphragmatic breathing Reps/Minutes x 10 reps Comments in sitting Sitting Exercises Scap retraction Sitting Exercise Name scap retractions Reps/Minutes x 10 reps Other Exercises standing chest stretch in doorway Other Exercise Name standing chest stretch in the doorway Manual Therapy Treatment Soft Tissue Mobilization 1 Body Location B anterior and posterior shins /feet Mobilization Type Myofascial Release Intensity/Depth Superficial Body Position long sitting (rolled towel under B ischial tuberosities) Comments MFR was performed to B anterior and posterior shins and feet, PROM was performed at the ankles and feet Joint Mobilizations thoracic spine Joint PA glides in sitting Direction PA Grade II Body Position Sitting Comments pt had good tolerance today for seated thoracic mobilizations Manual Techniques 2 Type manual stretching for the gastroc/soleus complex Body Position Supine 1 Type PROM stretches were performed at B ankles and feet, manual stretching Body Location B PF/ DF Body Position Supine Comments improving ankle ROM with manual stretches PT-OP-R Modalities Start: 02/24/20 15:25 Freq: Status: Active Protocol: Document 03/25/20 13:46 [facility] (Rec: 03/29/20 11:58 [facility] [id number]) Hot Pack/Cold Pack Treatment Hot Pack Location R shld Patient Position Sitting Treatment Duration (minutes) 10 Patient Tolerance Good Comments decreased in discomfort anterior R shld end of tx. PT-OP-T Assessment and Plan Start: 01/28/20 11:22 Freq: Status: Active Protocol: Document 05/31/20 17:26 [facility] (Rec: 05/31/20 17:40 [facility] [email or web address]) Physical Therapy Assessment Assessment Summary Assessment Fay was having increased trouble breathing today. She notes this is from the radiation. We worked on diaphragmatic breathing and chest opening and I began thoracic PA mobs in sitting. She tolerated this well and was able to ambulate on the treadmill following Physical Therapy Plan Frequency and Duration Frequency of Treatment 2x/Week Duration of Treatment 8 Plan of Care Start Date 05/05/20 Plan of Care End Date 06/21/20 Therapeutic Interventions Therapeutic Interventions Balance Training,Home Exercise Program,Manual Therapy, Neuromuscular Re-education, Patient/Caregiver Education, Self-Care/Home Management,Soft Tissue Mobilization, Therapeutic Exercises Next Visit Focus/Plan Next Note Type Treatment Note Next Visit Plan Assess diaphragmatic breathing next visit, chest opening stretches, manual therapy techniques and walking on the treadmill.
--- NOTE | 2020-06-09 15:51 | PT.OTN ---
Current Diagnoses Systemic sclerosis, unspecified (06/09/20) Physical Therapy Treatment Note PT-OP-A Visit Information Start: 01/28/20 11:22 Freq: Status: Active Protocol: Document 06/09/20 11:10 [facility] (Rec: 06/09/20 11:10 [facility] [id number]) Out-Patient Physical Therapy Visit Information Visit Information Visit Type Treatment Note Visit Start Time 11:10 Visit Stop Time 12:00 Total Visit Minutes 50 Visit Number 27 Number of DIRECTOR OF MOBILE MARKETING Visits 0 PT-OP-B Current Condition Start: 01/28/20 11:22 Freq: Status: Active Protocol: Document 01/28/20 11:26 [facility] (Rec: 01/28/20 11:40 [facility] [id number]) Current Condition History of Current Condition Onset Date Pt has a chronic hx of scleroderma, recent flare after a [place] July 08 Current Complaints painful ROM LE especially the ankles/feet,painful gait, decreased balance History of Current Condition Pt has a hisotry of scleroderma that affects her LE. This makes her legs so tight she has lost ROM in her ankles. She reports pain with walking, decresased balance and poor energy. She has been seen in PT years ago for help reducing tightness in her legs. She notes that symptms increased following a myocardial infacrtion in June of 2019. Fay reports for days before her heart attack she was having a buring pain in her chest, she was taken to the ER at [facility] and then sent to [facility]. She was transfered from [facility] to [facility] [place] in [place]. She had 2 stents put in and then had a GI bleed. When she returned home and for awhile ( a week or two) she felt increased energy. But then it went away. Has new symptoms of psorasis and reports her legs feel very bound. Taking Consentyx the injection for Psorasis. The scleroderma in her feet and legs feels worse. She hasn't had treatment in so many years for her legs. She is taking blood thinners. SHe had been doing cardiac rehab and doing really good but had to stop due to covid 19 pandemic. She hasn't been walking as much as she had before and she reports 15-20 minutes is her walking max. Past medical history includes hx of cancer, depression, type II diabetes, dizzyness, memory loss, neuropathy, thyroid disorder, psychological disorder Treatment Goals Patient/Caregiver Goals pt reports she would like to get to 35-40 minutes of walking, other goals include balance training, strengthening, and loosening her leg muscles. Prior Functional Status Baseline Function- ADL's Independent Baseline Function- Mobility Independent Current Functional Impairments (Reported) Functional Limitations- Mobility/Gait Because of the tightness her balance is off and she feels really off balance. Standing hurts due to the leg tightnes. She notes both her feet and legs have increased pain after 10 minutes of static standing . She uses a cane for outdoor ambulation. Functional Limitations- Recreation/ limited recreational Hobbies activities due to decreased endurance and pain in her legs with activity PT-OP-C Subjective Start: 01/28/20 11:22 Freq: Status: Active Protocol: Document 06/09/20 11:13 [facility] (Rec: 06/09/20 11:15 [facility] [id number]) OP-PT Subjective Patient Comments Patient Comments Pt reports she saw Dr. Schwartz and will se the clinic md associate on the . She is still feling the shortness of breath . Covid test was negative PT-OP-F Manual Assessment Start: 01/28/20 11:22 Freq: Status: Active Protocol: Document 05/05/20 15:04 [facility] (Rec: 05/05/20 15:06 [facility] [email or web address]) Manual Assessments Soft Tissue Assessment Soft Tissue Mobility Assessment pt is showing some changes in calf and plantar flexion flexibility which is allowing her to progress her walking distance to 20 minutes PT-OP-J Posture/Palpation/Skin Start: 01/28/20 11:22 Freq: Status: Active Protocol: Document 01/28/20 11:15 [facility] (Rec: 02/02/20 12:33 [facility] [id number]) Palpation Assessment Location Two Palpation Location tibialis anterior Palpation Findings Soft Tissue Tightness Palpation Details scar tissue tightness throughout the muscle belly with limited ankle ROM into DF plantar fascia Palpation Location plantar fascia Palpation Findings Soft Tissue Tightness, Tenderness Palpation Details Very little flexibility from the plantar fascia due to tightness and limited ankle ROM One Palpation Location calf musculature B Palpation Findings Soft Tissue Tightness Palpation Details scar tissue noted throughout the muscular wall of the gastrocnemius and soleus musculature due to scleroderma PT-OP-K Range of Motion Start: 01/28/20 11:22 Freq: Status: Active Protocol: Document 05/05/20 15:04 [facility] (Rec: 05/05/20 15:06 [facility] [email or web address]) Ankle and Foot Goniometric Range of Motion Ankle and Foot Right Ankle/Foot ROM WFL No Testing Position Supine Dorsiflexion with Knee Flexed 8 Dorsiflexion with Knee Extended 4 Plantarflexion 8 Inversion 8 Eversion 8 Left Ankle/Foot ROM WFL No Testing Position Supine Dorsiflexion with Knee Flexed 10 Dorsiflexion with Knee Extended 5 Plantarflexion 8 Inversion 8 Eversion 8 PT-OP-M Strength Start: 01/28/20 11:22 Freq: Status: Active Protocol: Document 05/05/20 15:04 [facility] (Rec: 05/05/20 15:06 [facility] [email or web address]) Ankle/Foot Strength Ankle and Foot Manual Muscle Testing Right Dorsiflexion (L4) 3 Fair Plantarflexion (S1) 3 Fair Inversion 3 Fair Eversion (S1) 3 Fair Left Dorsiflexion (L4) 3 Fair Plantarflexion (S1) 3 Fair Inversion 3 Fair Eversion (S1) 3 Fair PT-OP-Q Treatments Start: 01/28/20 11:22 Freq: Status: Active Protocol: Document 06/09/20 15:39 [facility] (Rec: 06/09/20 15:51 [facility] [id number]) Manual Therapy Treatment Soft Tissue Mobilization B patellar tendon Body Location B Mobilization Type Cross-Friction Intensity/Depth Moderate Body Position Sitting Comments Long sitting 1 Body Location B anterior and posterior shins /feet Mobilization Type Myofascial Release Intensity/Depth Superficial Body Position long sitting (rolled towel under B ischial tuberosities) Comments MFR was performed to B anterior and posterior shins and feet, PROM was performed at the ankles and feet Manual Techniques 2 Type manual stretching for the gastroc/soleus complex Body Position Supine 1 Type PROM stretches were performed at B ankles and feet, manual stretching Body Location B PF/ DF Body Position Supine Comments improving ankle ROM with manual stretches PT-OP-R Modalities Start: 02/24/20 15:25 Freq: Status: Active Protocol: Document 03/25/20 13:46 [facility] (Rec: 03/29/20 11:58 [facility] [id number]) Hot Pack/Cold Pack Treatment Hot Pack Location R shld Patient Position Sitting Treatment Duration (minutes) 10 Patient Tolerance Good Comments decreased in discomfort anterior R shld end of tx. PT-OP-T Assessment and Plan Start: 01/28/20 11:22 Freq: Status: Active Protocol: Document 06/09/20 15:39 [facility] (Rec: 06/09/20 15:51 [facility] [id number]) Physical Therapy Assessment Assessment Summary Assessment Fay was tested for covid and was negative. She is being sent to cardiac as her shortness of breath may be cardiac related. She will do her cardio exercises today at cardiac rehab. Physical Therapy Plan Frequency and Duration Frequency of Treatment 2x/Week Duration of Treatment 8 Plan of Care Start Date 05/05/20 Plan of Care End Date 06/21/20 Next Visit Focus/Plan Next Note Type Treatment Note Next Visit Plan wait on chest assessment until after pt sees her cardiac doctor. Contine with LE ROM and stretching.
--- NOTE | 2020-06-14 17:41 | PT.OPPN ---
Current Diagnoses Systemic sclerosis, unspecified (06/14/20) Physical Therapy Progress Note PT-OP-A Visit Information Start: 01/28/20 11:22 Freq: Status: Active Protocol: Document 06/14/20 14:32 [facility] (Rec: 06/14/20 14:34 [facility] [id number]) Out-Patient Physical Therapy Visit Information Visit Information Visit Type Treatment Note Visit Start Time 14:30 Visit Stop Time 15:15 Total Visit Minutes 45 Visit Number 28 Number of HISTORIC SITES REGISTRAR Visits 0 PT-OP-B Current Condition Start: 01/28/20 11:22 Freq: Status: Active Protocol: Document 01/28/20 11:26 [facility] (Rec: 01/28/20 11:40 [facility] [id number]) Current Condition History of Current Condition Onset Date Pt has a chronic hx of scleroderma, recent flare after a [place] July 08 Current Complaints painful ROM LE especially the ankles/feet,painful gait, decreased balance History of Current Condition Pt has a hisotry of scleroderma that affects her LE. This makes her legs so tight she has lost ROM in her ankles. She reports pain with walking, decresased balance and poor energy. She has been seen in PT years ago for help reducing tightness in her legs. She notes that symptms increased following a myocardial infacrtion in June of 2019. Fay reports for days before her heart attack she was having a buring pain in her chest, she was taken to the ER at [facility] and then [facility]. She was transfered from [facility] to [facility] in [place]. She had 2 stents put in and then had a GI bleed. When she returned home and for awhile ( a week or two) she felt increased energy. But then it went away. Has new symptoms of psorasis and reports her legs feel very bound. Taking Consentyx the injection for Psorasis. The scleroderma in her feet and legs feels worse. She hasn't had treatment in so many years for her legs. She is taking blood thinners. SHe had been doing cardiac rehab and doing really good but had to stop due to covid 19 pandemic. She hasn't been walking as much as she had before and she reports 15-20 minutes is her walking max. Past medical history includes hx of cancer, depression, type II diabetes, dizzyness, memory loss, neuropathy, thyroid disorder, psychological disorder Treatment Goals Patient/Caregiver Goals pt reports she would like to get to 35-40 minutes of walking, other goals include balance training, strengthening, and loosening her leg muscles. Prior Functional Status Baseline Function- ADL's Independent Baseline Function- Mobility Independent Current Functional Impairments (Reported) Functional Limitations- Mobility/Gait Because of the tightness her balance is off and she feels really off balance. Standing hurts due to the leg tightnes. She notes both her feet and legs have increased pain after 10 minutes of static standing . She uses a cane for outdoor ambulation. Functional Limitations- Recreation/ limited recreational Hobbies activities due to decreased endurance and pain in her legs with activity PT-OP-C Subjective Start: 01/28/20 11:22 Freq: Status: Active Protocol: Document 06/14/20 14:32 [facility] (Rec: 06/14/20 14:34 [facility] [id number]) OP-PT Subjective Patient Comments Patient Comments Fay reports she is still experiencing shortness of breath and has her echocardiogram tomorrow. PT-OP-F Manual Assessment Start: 01/28/20 11:22 Freq: Status: Active Protocol: Document 05/05/20 15:04 [facility] (Rec: 05/05/20 15:06 [facility] [email or web address]) Manual Assessments Soft Tissue Assessment Soft Tissue Mobility Assessment pt is showing some changes in calf and plantar flexion flexibility which is allowing her to progress her walking distance to 20 minutes PT-OP-J Posture/Palpation/Skin Start: 01/28/20 11:22 Freq: Status: Active Protocol: Document 01/28/20 11:15 [facility] (Rec: 02/02/20 12:33 [facility] [id number]) Palpation Assessment Location Two Palpation Location tibialis anterior Palpation Findings Soft Tissue Tightness Palpation Details scar tissue tightness throughout the muscle belly with limited ankle ROM into DF plantar fascia Palpation Location plantar fascia Palpation Findings Soft Tissue Tightness, Tenderness Palpation Details Very little flexibility from the plantar fascia due to tightness and limited ankle ROM One Palpation Location calf musculature B Palpation Findings Soft Tissue Tightness Palpation Details scar tissue noted throughout the muscular wall of the gastrocnemius and soleus musculature due to scleroderma PT-OP-K Range of Motion Start: 01/28/20 11:22 Freq: Status: Active Protocol: Document 05/05/20 15:04 [facility] (Rec: 05/05/20 15:06 [facility] [email or web address]) Ankle and Foot Goniometric Range of Motion Ankle and Foot Measured in Degrees Right Ankle/Foot ROM WFL No Testing Position Supine Dorsiflexion with Knee Flexed 8 Dorsiflexion with Knee Extended 4 Plantarflexion 8 Inversion 8 Eversion 8 Left Ankle/Foot ROM WFL No Testing Position Supine Dorsiflexion with Knee Flexed 10 Dorsiflexion with Knee Extended 5 Plantarflexion 8 Inversion 8 Eversion 8 PT-OP-M Strength Start: 01/28/20 11:22 Freq: Status: Active Protocol: Document 05/05/20 15:04 [facility] (Rec: 05/05/20 15:06 [facility] [id number]) Ankle/Foot Strength Ankle and Foot Manual Muscle Testing Right Dorsiflexion (L4) 3 Fair Plantarflexion (S1) 3 Fair Inversion 3 Fair Eversion (S1) 3 Fair Left Dorsiflexion (L4) 3 Fair Plantarflexion (S1) 3 Fair Inversion 3 Fair Eversion (S1) 3 Fair PT-OP-T Assessment and Plan Start: 01/28/20 11:22 Freq: Status: Active Protocol: Document 06/14/20 17:28 [facility] (Rec: 06/14/20 17:41 [facility] [id number]) Physical Therapy Assessment Goals Four Impairment Fay is not currently engaging in a home exercise program Short Term Goal (STG) Fay is instructed in exercises and gentle stretches as we progress through therapy that she is able to do at home. Fay is now working on a home stretching program for her LE and feet. She has also started cardiac rehab along with PT STG Duration 4-8 weeks Three Impairment Pain prevents Fay from standing more than 10 min and walking > 1/4 mile Custodial Goal (LTG) Fay is able to increase her tolerance for standing to 30 minutes and walking 1/2 mile or greater at a time Fay has been working on increasing her time walking . She has been able to walk on the treadmill in the clinic for 20 minutes. These past 3 weeks she has experienced some shortness of breath. She has a negative covid test and now she is having cardiac tests performed. She was able to return to treadmill walking today for 16 minutes at 1.5 mph LTG Duration 8 weeks Two Impairment Limited ankle ROM creating difficulty with gait and balance activities Custodial Goal (LTG) Fay demonstrates a improved in ankle ROM by at least 5 degrees for DF/PF/INV/EVR to assist with balance and gait activities Some progress LTG Duration 8 weeks One Impairment Pain rated 6/10 in B LE Short Term Goal (STG) Fay has a reduction in pain to 4-5/10 with manual therapy and ROM exercises GOOD PROGRESS Custodial Goal (LTG) With manual therapy techniques and a home stretching/ exercise program Fay is able to reduce her pain from 6/10 tp 2-3/10 Some progress Fay reports her pain from the scleroderma is 4/10 now. Her neuropathy pain is rated 8/10 when it occurs Assessment Summary Assessment Fay has her appointment for echo cardiogram tomorrow. She was able to return to treadmill walking for 16 minutes today. Physical Therapy Plan Frequency and Duration Frequency of Treatment 2x/Week Duration of Treatment 8 Plan of Care Start Date 06/14/20 Plan of Care End Date 08/09/20 Therapeutic Interventions Therapeutic Interventions Balance Training,Home Exercise Program,Manual Therapy, Neuromuscular Re-education, Patient/Caregiver Education, Self-Care/Home Management,Soft Tissue Mobilization, Therapeutic Exercises
--- NOTE | 2020-06-14 17:41 | PT.OPPOC ---
Physical, Occupational & Speech Therapy At [facility] Current Diagnoses Systemic sclerosis, unspecified (06/14/20) Visit Care Team Role Provider Type Timur Schwartz MD Primary Care Provider Physician Specialty: Internal Medicine Address: [address] [place] [address], [id number] Email: [email or web address] Gage Palomares DO Attending Provider Non-Staff Referring Provider Specialty: Dermatology Address: [address] [place] [address], [id number] Email: Plan Of Care PT-OP-T Assessment and Plan Start: 01/28/20 11:22 Freq: Status: Active Protocol: Document 06/14/20 17:28 [facility] (Rec: 06/14/20 17:41 [facility] [email or web address]) Physical Therapy Assessment Goals Four Impairment Fay is not currently engaging in a home exercise program Short Term Goal (STG) Fay is instructed in exercises and gentle stretches as we progress through therapy that she is able to do at home. Fay is now working on a home stretching program for her LE and feet. She has also started cardiac rehab along with PT STG Duration 4-8 weeks Three Impairment Pain prevents Fay from standing more than 10 min and walking > 1/4 mile Legal Billing Specialist Goal (LTG) Fay is able to increase her tolerance for standing to 30 minutes and walking 1/2 mile or greater at a time Fay has been working on increasing her time walking . She has been able to walk on the treadmill in the clinic for 20 minutes. These past 3 weeks she has experienced some shortness of breath. She has a negative covid test and now she is having cardiac tests performed. She was able to return to treadmill walking today for 16 minutes at 1.5 mph LTG Duration 8 weeks Two Impairment Limited ankle ROM creating difficulty with gait and balance activities Alf Goal (LTG) Fay demonstrates a improved in ankle ROM by at least 5 degrees for DF/PF/INV/EVR to assist with balance and gait activities Some progress LTG Duration 8 weeks One Impairment Pain rated 6/10 in B LE Short Term Goal (STG) Fay has a reduction in pain to 4-5/10 with manual therapy and ROM exercises GOOD PROGRESS Legal Billing Specialist Goal (LTG) With manual therapy techniques and a home stretching/ exercise program Fay is able to reduce her pain from 6/10 tp 2-3/10 Some progress Fay reports her pain from the scleroderma is 4/10 now. Her neuropathy pain is rated 8/10 when it occurs Assessment Summary Assessment Fay has her appointment for echo cardiogram tomorrow. She was able to return to treadmill walking for 16 minutes today. Physical Therapy Plan Frequency and Duration Frequency of Treatment 2x/Week Duration of Treatment 8 Plan of Care Start Date 06/14/20 Plan of Care End Date 08/09/20 Therapeutic Interventions Therapeutic Interventions Balance Training,Home Exercise Program,Manual Therapy, Neuromuscular Re-education, Patient/Caregiver Education, Self-Care/Home Management,Soft Tissue Mobilization, Therapeutic Exercises Plan of Care Dates Plan of Care Start Date 06/14/20 Plan of Care End Date 08/09/20 Electronically Signed by: Nidhi Villanueva, PT 06/14/20 [id number] Please Sign and Return: I have reviewed this Plan of Care and certify that the skilled therapy services above are required to meet the patient?s needs. Physician Signature Date Printed Name and Credentials Clinical Instructor Signature Printed Name and Credentials
--- NOTE | 2020-06-14 17:43 | PT.OTN ---
Current Diagnoses Systemic sclerosis, unspecified (06/14/20) Physical Therapy Treatment Note PT-OP-A Visit Information Start: 01/28/20 11:22 Freq: Status: Active Protocol: Document 06/14/20 14:32 [facility] (Rec: 06/14/20 14:34 [facility] [id number]) Out-Patient Physical Therapy Visit Information Visit Information Visit Type Treatment Note Visit Start Time 14:30 Visit Stop Time 15:15 Total Visit Minutes 45 Visit Number 28 Number of EXHAUSTER Visits 0 PT-OP-B Current Condition Start: 01/28/20 11:22 Freq: Status: Active Protocol: Document 01/28/20 11:26 [facility] (Rec: 01/28/20 11:40 [facility] [id number]) Current Condition History of Current Condition Onset Date Pt has a chronic hx of scleroderma, recent flare after a [place] July 08 Current Complaints painful ROM LE especially the ankles/feet,painful gait, decreased balance History of Current Condition Pt has a hisotry of scleroderma that affects her LE. This makes her legs so tight she has lost ROM in her ankles. She reports pain with walking, decresased balance and poor energy. She has been seen in PT years ago for help reducing tightness in her legs. She notes that symptms increased following a myocardial infacrtion in June of 2019. Fay reports for days before her heart attack she was having a buring pain in her chest, she was taken to the ER at [facility] and then sent to [facility]. She was transfered from [facility] to [facility] in [place]. She had 2 stents put in and then had a GI bleed. When she returned home and for awhile ( a week or two) she felt increased energy. But then it went away. Has new symptoms of psorasis and reports her legs feel very bound. Taking Consentyx the injection for Psorasis. The scleroderma in her feet and legs feels worse. She hasn't had treatment in so many years for her legs. She is taking blood thinners. SHe had been doing cardiac rehab and doing really good but had to stop due to covid 19 pandemic. She hasn't been walking as much as she had before and she reports 15-20 minutes is her walking max. Past medical history includes hx of cancer, depression, type II diabetes, dizzyness, memory loss, neuropathy, thyroid disorder, psychological disorder Treatment Goals Patient/Caregiver Goals pt reports she would like to get to 35-40 minutes of walking, other goals include balance training, strengthening, and loosening her leg muscles. Prior Functional Status Baseline Function- ADL's Independent Baseline Function- Mobility Independent Current Functional Impairments (Reported) Functional Limitations- Mobility/Gait Because of the tightness her balance is off and she feels really off balance. Standing hurts due to the leg tightnes. She notes both her feet and legs have increased pain after 10 minutes of static standing . She uses a cane for outdoor ambulation. Functional Limitations- Recreation/ limited recreational Hobbies activities due to decreased endurance and pain in her legs with activity PT-OP-C Subjective Start: 01/28/20 11:22 Freq: Status: Active Protocol: Document 06/14/20 14:32 [facility] (Rec: 06/14/20 14:34 [facility] [id number]) OP-PT Subjective Patient Comments Patient Comments Fay reports she is still experiencing shortness of breath and has her echocardiogram tomorrow. PT-OP-F Manual Assessment Start: 01/28/20 11:22 Freq: Status: Active Protocol: Document 05/05/20 15:04 [facility] (Rec: 05/05/20 15:06 [facility] [email or web address]) Manual Assessments Soft Tissue Assessment Soft Tissue Mobility Assessment pt is showing some changes in calf and plantar flexion flexibility which is allowing her to progress her walking distance to 20 minutes PT-OP-J Posture/Palpation/Skin Start: 01/28/20 11:22 Freq: Status: Active Protocol: Document 01/28/20 11:15 [facility] (Rec: 02/02/20 12:33 [facility] [id number]) Palpation Assessment Location Two Palpation Location tibialis anterior Palpation Findings Soft Tissue Tightness Palpation Details scar tissue tightness throughout the muscle belly with limited ankle ROM into DF plantar fascia Palpation Location plantar fascia Palpation Findings Soft Tissue Tightness, Tenderness Palpation Details Very little flexibility from the plantar fascia due to tightness and limited ankle ROM One Palpation Location calf musculature B Palpation Findings Soft Tissue Tightness Palpation Details scar tissue noted throughout the muscular wall of the gastrocnemius and soleus musculature due to scleroderma PT-OP-K Range of Motion Start: 01/28/20 11:22 Freq: Status: Active Protocol: Document 05/05/20 15:04 [facility] (Rec: 05/05/20 15:06 [facility] [email or web address]) Ankle and Foot Goniometric Range of Motion Ankle and Foot Right Ankle/Foot ROM WFL No Testing Position Supine Dorsiflexion with Knee Flexed 8 Dorsiflexion with Knee Extended 4 Plantarflexion 8 Inversion 8 Eversion 8 Left Ankle/Foot ROM WFL No Testing Position Supine Dorsiflexion with Knee Flexed 10 Dorsiflexion with Knee Extended 5 Plantarflexion 8 Inversion 8 Eversion 8 PT-OP-M Strength Start: 01/28/20 11:22 Freq: Status: Active Protocol: Document 05/05/20 15:04 [facility] (Rec: 05/05/20 15:06 [facility] [email or web address]) Ankle/Foot Strength Ankle and Foot Manual Muscle Testing Right Dorsiflexion (L4) 3 Fair Plantarflexion (S1) 3 Fair Inversion 3 Fair Eversion (S1) 3 Fair Left Dorsiflexion (L4) 3 Fair Plantarflexion (S1) 3 Fair Inversion 3 Fair Eversion (S1) 3 Fair PT-OP-Q Treatments Start: 01/28/20 11:22 Freq: Status: Active Protocol: Document 06/14/20 17:28 [facility] (Rec: 06/14/20 17:41 [facility] [email or web address]) Cardio Equipment Treadmill Duration (Minutes) 15 Speed 1.5 Therapeutic Exercises Supine Exercises diaphragmatic breathing Supine Exercise Name diaphragmatic breathing Reps/Minutes x 10 reps Comments in sitting Manual Therapy Treatment Soft Tissue Mobilization B patellar tendon Body Location B Mobilization Type Cross-Friction Intensity/Depth Moderate Body Position Sitting Comments Long sitting 1 Body Location B anterior and posterior shins /feet Mobilization Type Myofascial Release Intensity/Depth Superficial Body Position long sitting (rolled towel under B ischial tuberosities) Comments MFR was performed to B anterior and posterior shins and feet, PROM was performed at the ankles and feet Joint Mobilizations thoracic spine Joint PA glides in sitting Direction PA Grade II Body Position Sitting Comments pt had good tolerance today for seated thoracic mobilizations Manual Techniques 2 Type manual stretching for the gastroc/soleus complex Body Position Supine 1 Type PROM stretches were performed at B ankles and feet, manual stretching Body Location B PF/ DF Body Position Supine Comments improving ankle ROM with manual stretches PT-OP-R Modalities Start: 02/24/20 15:25 Freq: Status: Active Protocol: Document 03/25/20 13:46 SP (Rec: 03/29/20 11:58 SP [id number]) Hot Pack/Cold Pack Treatment Hot Pack Location R shld Patient Position Sitting Treatment Duration (minutes) 10 Patient Tolerance Good Comments decreased in discomfort anterior R shld end of tx. PT-OP-T Assessment and Plan Start: 01/28/20 11:22 Freq: Status: Active Protocol: Document 06/14/20 17:28 [facility] (Rec: 06/14/20 17:41 [facility] [email or web address]) Physical Therapy Assessment Goals Four Impairment Fay is not currently engaging in a home exercise program Short Term Goal (STG) Fay is instructed in exercises and gentle stretches as we progress through therapy that she is able to do at home. Fay is now working on a home stretching program for her LE and feet. She has also started cardiac rehab along with PT STG Duration 4-8 weeks Three Impairment Pain prevents Fay from standing more than 10 min and walking > 1/4 mile Fence Setter Goal (LTG) Fay is able to increase her tolerance for standing to 30 minutes and walking 1/2 mile or greater at a time Fay has been working on increasing her time walking . She has been able to walk on the treadmill in the clinic for 20 minutes. These past 3 weeks she has experienced some shortness of breath. She has a negative covid test and now she is having cardiac tests performed. She was able to return to treadmill walking today for 16 minutes at 1.5 mph LTG Duration 8 weeks Two Impairment Limited ankle ROM creating difficulty with gait and balance activities Snf Goal (LTG) Fay demonstrates a improved in ankle ROM by at least 5 degrees for DF/PF/INV/EVR to assist with balance and gait activities Some progress LTG Duration 8 weeks One Impairment Pain rated 6/10 in B LE Short Term Goal (STG) Fay has a reduction in pain to 4-5/10 with manual therapy and ROM exercises GOOD PROGRESS Snf Goal (LTG) With manual therapy techniques and a home stretching/ exercise program Fay is able to reduce her pain from 6/10 tp 2-3/10 Some progress Fay reports her pain from the scleroderma is 4/10 now. Her neuropathy pain is rated 8/10 when it occurs Assessment Summary Assessment Fay has her appointment for echo cardiogram tomorrow. She was able to return to treadmill walking for 16 minutes today. Physical Therapy Plan Frequency and Duration Frequency of Treatment 2x/Week Duration of Treatment 8 Plan of Care Start Date 06/14/20 Plan of Care End Date 08/09/20 Therapeutic Interventions Therapeutic Interventions Balance Training,Home Exercise Program,Manual Therapy, Neuromuscular Re-education, Patient/Caregiver Education, Self-Care/Home Management,Soft Tissue Mobilization, Therapeutic Exercises
--- NOTE | 2020-06-23 13:00 | PT.OTN ---
Current Diagnoses Systemic sclerosis, unspecified (06/23/20) Physical Therapy Treatment Note PT-OP-A Visit Information Start: 01/28/20 11:22 Freq: Status: Active Protocol: Document 06/23/20 12:17 SP (Rec: 06/23/20 14:34 SP [id number]) Out-Patient Physical Therapy Visit Information Visit Information Visit Type Treatment Note Visit Start Time 12:17 Visit Stop Time 13:00 Total Visit Minutes 43 Visit Number 29 Number of TORPEDOMAN'S MATE Visits 1 PT-OP-B Current Condition Start: 01/28/20 11:22 Freq: Status: Active Protocol: Document 01/28/20 11:26 [facility] (Rec: 01/28/20 11:40 [facility] [id number]) Current Condition History of Current Condition Onset Date Pt has a chronic hx of scleroderma, recent flare after a [place] July 08 Current Complaints painful ROM LE especially the ankles/feet,painful gait, decreased balance History of Current Condition Pt has a hisotry of scleroderma that affects her LE. This makes her legs so tight she has lost ROM in her ankles. She reports pain with walking, decresased balance and poor energy. She has been seen in PT years ago for help reducing tightness in her legs. She notes that symptms increased following a myocardial infacrtion in June of 2019. Fay reports for days before her heart attack she was having a buring pain in her chest, she was taken to the ER at [facility] and then sent to [facility]. She was transfered from [facility] to [facility] in [place]. She had 2 stents put in and then had a GI bleed. When she returned home and for awhile ( a week or two) she felt increased energy. But then it went away. Has new symptoms of psorasis and reports her legs feel very bound. Taking Consentyx the injection for Psorasis. The scleroderma in her feet and legs feels worse. She hasn't had treatment in so many years for her legs. She is taking blood thinners. SHe had been doing cardiac rehab and doing really good but had to stop due to covid 19 pandemic. She hasn't been walking as much as she had before and she reports 15-20 minutes is her walking max. Past medical history includes hx of cancer, depression, type II diabetes, dizzyness, memory loss, neuropathy, thyroid disorder, psychological disorder Treatment Goals Patient/Caregiver Goals pt reports she would like to get to 35-40 minutes of walking, other goals include balance training, strengthening, and loosening her leg muscles. Prior Functional Status Baseline Function- ADL's Independent Baseline Function- Mobility Independent Current Functional Impairments (Reported) Functional Limitations- Mobility/Gait Because of the tightness her balance is off and she feels really off balance. Standing hurts due to the leg tightnes. She notes both her feet and legs have increased pain after 10 minutes of static standing . She uses a cane for outdoor ambulation. Functional Limitations- Recreation/ limited recreational Hobbies activities due to decreased endurance and pain in her legs with activity PT-OP-C Subjective Start: 01/28/20 11:22 Freq: Status: Active Protocol: Document 06/23/20 12:17 SP (Rec: 06/23/20 14:34 SP [id number]) OP-PT Subjective Patient Comments Patient Comments Pt reports had an echocardioigram about1 week ago and hasn't heard from physicican on results, set up for stress test and colonoscopy soon. Pt has cardiorehab today at 2. No PT-OP-F Manual Assessment Start: 01/28/20 11:22 Freq: Status: Active Protocol: Document 05/05/20 15:04 [facility] (Rec: 05/05/20 15:06 [facility] [id number]) Manual Assessments Soft Tissue Assessment Soft Tissue Mobility Assessment pt is showing some changes in calf and plantar flexion flexibility which is allowing her to progress her walking distance to 20 minutes PT-OP-J Posture/Palpation/Skin Start: 01/28/20 11:22 Freq: Status: Active Protocol: Document 01/28/20 11:15 [facility] (Rec: 02/02/20 12:33 [facility] [id number]) Palpation Assessment Location Two Palpation Location tibialis anterior Palpation Findings Soft Tissue Tightness Palpation Details scar tissue tightness throughout the muscle belly with limited ankle ROM into DF plantar fascia Palpation Location plantar fascia Palpation Findings Soft Tissue Tightness, Tenderness Palpation Details Very little flexibility from the plantar fascia due to tightness and limited ankle ROM One Palpation Location calf musculature B Palpation Findings Soft Tissue Tightness Palpation Details scar tissue noted throughout the muscular wall of the gastrocnemius and soleus musculature due to scleroderma PT-OP-K Range of Motion Start: 01/28/20 11:22 Freq: Status: Active Protocol: Document 05/05/20 15:04 [facility] (Rec: 05/05/20 15:06 [facility] [email or web address]) Ankle and Foot Goniometric Range of Motion Ankle and Foot Right Ankle/Foot ROM WFL No Testing Position Supine Dorsiflexion with Knee Flexed 8 Dorsiflexion with Knee Extended 4 Plantarflexion 8 Inversion 8 Eversion 8 Left Ankle/Foot ROM WFL No Testing Position Supine Dorsiflexion with Knee Flexed 10 Dorsiflexion with Knee Extended 5 Plantarflexion 8 Inversion 8 Eversion 8 PT-OP-M Strength Start: 01/28/20 11:22 Freq: Status: Active Protocol: Document 05/05/20 15:04 [facility] (Rec: 05/05/20 15:06 [facility] [email or web address]) Ankle/Foot Strength Ankle and Foot Manual Muscle Testing Right Dorsiflexion (L4) 3 Fair Plantarflexion (S1) 3 Fair Inversion 3 Fair Eversion (S1) 3 Fair Left Dorsiflexion (L4) 3 Fair Plantarflexion (S1) 3 Fair Inversion 3 Fair Eversion (S1) 3 Fair PT-OP-Q Treatments Start: 01/28/20 11:22 Freq: Status: Active Protocol: Document 06/23/20 12:17 SP (Rec: 06/23/20 14:34 SP [id number]) Cardio Equipment Treadmill Duration (Minutes) 7 Speed 0.8-1.4 mph Incline .5 Other cued increased stride, slow breath Therapeutic Exercises Standing Exercises ankle mobility/anterior hip stretch Side bilateral Resistance AROM Equipment Used 2 nd step, B HR Reps/Minutes x5 calf raises Standing Exercise Name eccentric directioning Side bilateral Equipment Used 4 step, B HR Reps/Minutes x10 Other Exercises standing chest stretch in doorway Other Exercise Name clasp behind back brandt stretch w/ scap retraction/depression and breath Comments post TM Manual Therapy Treatment Soft Tissue Mobilization B patellar tendon Body Location B Mobilization Type Cross-Friction Intensity/Depth Moderate Body Position Sitting Comments Long sitting Joint Mobilizations Patella mobes Joint B Direction med/lat/sup/inf Grade II Body Position Sitting Comments Long sitting. Manual Techniques 2 Type manual stretching for the gastroc/soleus complex Body Position Supine 1 Type PROM stretches were performed at B ankles and feet, manual stretching Body Location B PF/ DF Body Position Supine Comments improving ankle ROM with manual stretches PT-OP-R Modalities Start: 02/24/20 15:25 Freq: Status: Active Protocol: Document 03/25/20 13:46 SP (Rec: 03/29/20 11:58 SP [id number]) Hot Pack/Cold Pack Treatment Hot Pack Location R shld Patient Position Sitting Treatment Duration (minutes) 10 Patient Tolerance Good Comments decreased in discomfort anterior R shld end of tx. PT-OP-T Assessment and Plan Start: 01/28/20 11:22 Freq: Status: Active Protocol: Document 06/23/20 12:17 SP (Rec: 06/23/20 14:34 SP [id number]) Physical Therapy Assessment Goals Four Impairment Fay is not currently engaging in a home exercise program Short Term Goal (STG) Fay is instructed in exercises and gentle stretches as we progress through therapy that she is able to do at home. Fay is now working on a home stretching program for her LE and feet. She has also started cardiac rehab along with PT STG Duration 4-8 weeks Three Impairment Pain prevents Fay from standing more than 10 min and walking > 1/4 mile Health And Safety Trainer Goal (LTG) Fay is able to increase her tolerance for standing to 30 minutes and walking 1/2 mile or greater at a time Fay has been working on increasing her time walking . She has been able to walk on the treadmill in the clinic for 20 minutes. These past 3 weeks she has experienced some shortness of breath. She has a negative covid test and now she is having cardiac tests performed. She was able to return to treadmill walking today for 16 minutes at 1.5 mph LTG Duration 8 weeks Two Impairment Limited ankle ROM creating difficulty with gait and balance activities Custodial Goal (LTG) Fay demonstrates a improved in ankle ROM by at least 5 degrees for DF/PF/INV/EVR to assist with balance and gait activities Some progress LTG Duration 8 weeks One Impairment Pain rated 6/10 in B LE Short Term Goal (STG) Fay has a reduction in pain to 4-5/10 with manual therapy and ROM exercises GOOD PROGRESS Custodial Goal (LTG) With manual therapy techniques and a home stretching/ exercise program Fay is able to reduce her pain from 6/10 tp 2-3/10 Some progress Fay reports her pain from the scleroderma is 4/10 now. Her neuropathy pain is rated 8/10 when it occurs Assessment Summary Assessment Pt did not receive results to echocardiogram, will call physician again. Pt increased ankle DF/ PF ROM post manual and self calf stretches noted while walking on TM. Did not increase distance due to having cardiorehab appt 1 hr after tx. Physical Therapy Plan Frequency and Duration Frequency of Treatment 2x/Week Duration of Treatment 8 Plan of Care Start Date 06/14/20 Plan of Care End Date 08/09/20 Therapeutic Interventions Therapeutic Interventions Balance Training,Home Exercise Program,Manual Therapy, Neuromuscular Re-education, Patient/Caregiver Education, Self-Care/Home Management,Soft Tissue Mobilization, Therapeutic Exercises Next Visit Focus/Plan Next Note Type Treatment Note Next Visit Plan wait on chest assessment until after pt sees her cardiac doctor. Contine with LE ROM and stretching.
--- NOTE | 2020-06-27 13:00 | PT.OTN ---
Current Diagnoses Systemic sclerosis, unspecified (06/27/20) Physical Therapy Treatment Note PT-OP-A Visit Information Start: 01/28/20 11:22 Freq: Status: Active Protocol: Document 06/27/20 12:17 SP (Rec: 06/27/20 12:59 SP [id number]) Out-Patient Physical Therapy Visit Information Visit Information Visit Type Treatment Note Visit Start Time 12:17 Visit Stop Time 13:00 Total Visit Minutes 43 Visit Number 30 Number of MECHANICAL TECHNOLOGIST Visits 2 PT-OP-B Current Condition Start: 01/28/20 11:22 Freq: Status: Active Protocol: Document 01/28/20 11:26 AMH (Rec: 01/28/20 11:40 AMH [id number]) Current Condition History of Current Condition Onset Date Pt has a chronic hx of scleroderma, recent flare after a [place] July 08 Current Complaints painful ROM LE especially the ankles/feet,painful gait, decreased balance History of Current Condition Pt has a hisotry of scleroderma that affects her LE. This makes her legs so tight she has lost ROM in her ankles. She reports pain with walking, decresased balance and poor energy. She has been seen in PT years ago for help reducing tightness in her legs. She notes that symptms increased following a myocardial infacrtion in June of 2019. Fay reports for days before her heart attack she was having a buring pain in her chest, she was taken to the ER at [facility] and then sent to [facility]. She was transfered from [facility] to [facility] in [place]. She had 2 stents put in and then had a GI bleed. When she returned home and for awhile ( a week or two) she felt increased energy. But then it went away. Has new symptoms of psorasis and reports her legs feel very bound. Taking Consentyx the injection for Psorasis. The scleroderma in her feet and legs feels worse. She hasn't had treatment in so many years for her legs. She is taking blood thinners. SHe had been doing cardiac rehab and doing really good but had to stop due to covid 19 pandemic. She hasn't been walking as much as she had before and she reports 15-20 minutes is her walking max. Past medical history includes hx of cancer, depression, type II diabetes, dizzyness, memory loss, neuropathy, thyroid disorder, psychological disorder Treatment Goals Patient/Caregiver Goals pt reports she would like to get to 35-40 minutes of walking, other goals include balance training, strengthening, and loosening her leg muscles. Prior Functional Status Baseline Function- ADL's Independent Baseline Function- Mobility Independent Current Functional Impairments (Reported) Functional Limitations- Mobility/Gait Because of the tightness her balance is off and she feels really off balance. Standing hurts due to the leg tightnes. She notes both her feet and legs have increased pain after 10 minutes of static standing . She uses a cane for outdoor ambulation. Functional Limitations- Recreation/ limited recreational Hobbies activities due to decreased endurance and pain in her legs with activity PT-OP-C Subjective Start: 01/28/20 11:22 Freq: Status: Active Protocol: Document 06/27/20 12:17 SP (Rec: 06/27/20 12:59 SP [id number]) OP-PT Subjective Patient Comments Patient Comments Pt reported I feel so weak, got enough sleep, nice warm shower to hope perk me up, but feel like dragging. I do have cardio rehab after PT again today. I haven't heard from Dr about echo results but cardiorehab looked and didn't think anything concerning. I do have a stress scheduled tomorrow. PT-OP-F Manual Assessment Start: 01/28/20 11:22 Freq: Status: Active Protocol: Document 05/05/20 15:04 AMH (Rec: 05/05/20 15:06 AMH [email or web address]) Manual Assessments Soft Tissue Assessment Soft Tissue Mobility Assessment pt is showing some changes in calf and plantar flexion flexibility which is allowing her to progress her walking distance to 20 minutes PT-OP-J Posture/Palpation/Skin Start: 01/28/20 11:22 Freq: Status: Active Protocol: Document 01/28/20 11:15 AMH (Rec: 02/02/20 12:33 AMH [id number]) Palpation Assessment Location Two Palpation Location tibialis anterior Palpation Findings Soft Tissue Tightness Palpation Details scar tissue tightness throughout the muscle belly with limited ankle ROM into DF plantar fascia Palpation Location plantar fascia Palpation Findings Soft Tissue Tightness, Tenderness Palpation Details Very little flexibility from the plantar fascia due to tightness and limited ankle ROM One Palpation Location calf musculature B Palpation Findings Soft Tissue Tightness Palpation Details scar tissue noted throughout the muscular wall of the gastrocnemius and soleus musculature due to scleroderma PT-OP-K Range of Motion Start: 01/28/20 11:22 Freq: Status: Active Protocol: Document 05/05/20 15:04 AMH (Rec: 05/05/20 15:06 AMH [email or web address]) Ankle and Foot Goniometric Range of Motion Ankle and Foot Right Ankle/Foot ROM WFL No Testing Position Supine Dorsiflexion with Knee Flexed 8 Dorsiflexion with Knee Extended 4 Plantarflexion 8 Inversion 8 Eversion 8 Left Ankle/Foot ROM WFL No Testing Position Supine Dorsiflexion with Knee Flexed 10 Dorsiflexion with Knee Extended 5 Plantarflexion 8 Inversion 8 Eversion 8 PT-OP-M Strength Start: 01/28/20 11:22 Freq: Status: Active Protocol: Document 05/05/20 15:04 AMH (Rec: 05/05/20 15:06 AMH [email or web address]) Ankle/Foot Strength Ankle and Foot Manual Muscle Testing Right Dorsiflexion (L4) 3 Fair Plantarflexion (S1) 3 Fair Inversion 3 Fair Eversion (S1) 3 Fair Left Dorsiflexion (L4) 3 Fair Plantarflexion (S1) 3 Fair Inversion 3 Fair Eversion (S1) 3 Fair PT-OP-Q Treatments Start: 01/28/20 11:22 Freq: Status: Active Protocol: Document 06/27/20 12:17 SP (Rec: 06/27/20 12:59 SP [id number]) Therapeutic Exercises Standing Exercises Dynamic eccentric calf raises Side bilateral Resistance Rail contact Reps/Minutes x10 ankle mobility/anterior hip stretch Standing Exercise Name anterior hip stretch Side bilateral Resistance AROM Equipment Used 2 nd step, B HR Reps/Minutes 30 each LE calf raises Standing Exercise Name eccentric directioning Side bilateral Equipment Used 4 step, B HR Reps/Minutes x10 Manual Therapy Treatment Soft Tissue Mobilization B patellar tendon Body Location B Mobilization Type Cross-Friction Intensity/Depth Moderate Body Position Sitting Comments Long sitting Extra time spend over R patellar tendon to allow for elevation durign knee flexion. I can breath better. 1 Body Location B anterior and posterior shins /feet Mobilization Type Myofascial Release Intensity/Depth Superficial Body Position long sitting (rolled towel under B ischial tuberosities) Comments MFR was performed to B anterior and posterior shins and feet, PROM was performed at the ankles and feet Joint Mobilizations Patella mobes Joint B Direction med/lat/sup/inf Grade II Body Position Sitting Comments Long sitting. Manual Techniques 2 Type manual stretching for the gastroc/soleus complex Body Position Supine 1 Type PROM stretches were performed at B ankles and feet, manual stretching Body Location B PF/ DF Body Position Supine Comments improving ankle ROM with manual stretches PT-OP-R Modalities Start: 02/24/20 15:25 Freq: Status: Active Protocol: Document 03/25/20 13:46 SP (Rec: 03/29/20 11:58 SP [id number]) Hot Pack/Cold Pack Treatment Hot Pack Location R shld Patient Position Sitting Treatment Duration (minutes) 10 Patient Tolerance Good Comments decreased in discomfort anterior R shld end of tx. PT-OP-T Assessment and Plan Start: 01/28/20 11:22 Freq: Status: Active Protocol: Document 06/27/20 12:17 SP (Rec: 06/27/20 12:59 SP [id number]) Physical Therapy Assessment Goals Four Impairment Fay is not currently engaging in a home exercise program Short Term Goal (STG) Fay is instructed in exercises and gentle stretches as we progress through therapy that she is able to do at home. Fay is now working on a home stretching program for her LE and feet. She has also started cardiac rehab along with PT STG Duration 4-8 weeks Three Impairment Pain prevents Fay from standing more than 10 min and walking > 1/4 mile Nuclear Design Engineer Goal (LTG) Fay is able to increase her tolerance for standing to 30 minutes and walking 1/2 mile or greater at a time Fay has been working on increasing her time walking . She has been able to walk on the treadmill in the clinic for 20 minutes. These past 3 weeks she has experienced some shortness of breath. She has a negative covid test and now she is having cardiac tests performed. She was able to return to treadmill walking today for 16 minutes at 1.5 mph LTG Duration 8 weeks Two Impairment Limited ankle ROM creating difficulty with gait and balance activities Nuclear Design Engineer Goal (LTG) Fay demonstrates a improved in ankle ROM by at least 5 degrees for DF/PF/INV/EVR to assist with balance and gait activities Some progress LTG Duration 8 weeks One Impairment Pain rated 6/10 in B LE Short Term Goal (STG) Fay has a reduction in pain to 4-5/10 with manual therapy and ROM exercises GOOD PROGRESS Prison Goal (LTG) With manual therapy techniques and a home stretching/ exercise program Fay is able to reduce her pain from 6/10 tp 2-3/10 Some progress Fay reports her pain from the scleroderma is 4/10 now. Her neuropathy pain is rated 8/10 when it occurs Assessment Summary Assessment Pt decreased activity tolerance upon arrival today. Tx focused on manual STMs and stretching then ankle AROM HEP to BLE with improved ROM I feel alot less tightness now. Physical Therapy Plan Frequency and Duration Frequency of Treatment 2x/Week Duration of Treatment 8 Plan of Care Start Date 06/14/20 Plan of Care End Date 08/09/20 Therapeutic Interventions Therapeutic Interventions Balance Training,Home Exercise Program,Manual Therapy, Neuromuscular Re-education, Patient/Caregiver Education, Self-Care/Home Management,Soft Tissue Mobilization, Therapeutic Exercises Next Visit Focus/Plan Next Note Type Treatment Note Next Visit Plan Assess response to manual and ROM last tx. Ask on if have results of echo, stress test next tx. Continue per PT POC: wait on chest assessment until after pt sees her cardiac doctor. Contine with LE ROM and stretching.
--- NOTE | 2020-07-04 13:10 | PT-OP ANOTE ---
Pt called to reschedule today's appt last minute due to needing extra time to utilize bathroom longer than expected. Pt confirmed appt tomorrow at 1345.
--- NOTE | 2020-07-05 14:47 | PT.OTN ---
Addendum entered and electronically signed by Zahra Canales, [employer] MIN[employer] MINER 07/05/20 15:32: Marianela Aponte commented today that her dose of antidepression meds was increased and felt more weepy today. Original Note: Current Diagnoses Systemic sclerosis, unspecified (07/05/20) Physical Therapy Treatment Note PT-OP-A Visit Information Start: 01/28/20 11:22 Freq: Status: Active Protocol: Document 07/05/20 13:47 SP (Rec: 07/05/20 14:58 SP [id number]) Out-Patient Physical Therapy Visit Information Visit Information Visit Type Treatment Note Visit Note Vitals (automated) taken post TM: BP 126/58 (L arm), HR 81, 97% on room air . Next tx take baseline pre/ post activity for safety. Visit Start Time 13:47 Visit Stop Time 14:47 Total Visit Minutes 60 Visit Number 31 Number of CONTINUOUS MINING MACHINE COMPANY MINER Visits 3 PT-OP-B Current Condition Start: 01/28/20 11:22 Freq: Status: Active Protocol: Document 01/28/20 11:26 AMH (Rec: 01/28/20 11:40 AMH [id number]) Current Condition History of Current Condition Onset Date Pt has a chronic hx of scleroderma, recent flare after a [place] July 08 Current Complaints painful ROM LE especially the ankles/feet,painful gait, decreased balance History of Current Condition Pt has a hisotry of scleroderma that affects her LE. This makes her legs so tight she has lost ROM in her ankles. She reports pain with walking, decresased balance and poor energy. She has been seen in PT years ago for help reducing tightness in her legs. She notes that symptms increased following a myocardial infacrtion in June of 2019. Fay reports for days before her heart attack she was having a buring pain in her chest, she was taken to the ER at [facility] and then sent to [facility]. She was transfered from [facility] to [facility] in [place]. She had 2 stents put in and then had a GI bleed. When she returned home and for awhile ( a week or two) she felt increased energy. But then it went away. Has new symptoms of psorasis and reports her legs feel very bound. Taking Consentyx the injection for Psorasis. The scleroderma in her feet and legs feels worse. She hasn't had treatment in so many years for her legs. She is taking blood thinners. SHe had been doing cardiac rehab and doing really good but had to stop due to covid 19 pandemic. She hasn't been walking as much as she had before and she reports 15-20 minutes is her walking max. Past medical history includes hx of cancer, depression, type II diabetes, dizzyness, memory loss, neuropathy, thyroid disorder, psychological disorder Treatment Goals Patient/Caregiver Goals pt reports she would like to get to 35-40 minutes of walking, other goals include balance training, strengthening, and loosening her leg muscles. Prior Functional Status Baseline Function- ADL's Independent Baseline Function- Mobility Independent Current Functional Impairments (Reported) Functional Limitations- Mobility/Gait Because of the tightness her balance is off and she feels really off balance. Standing hurts due to the leg tightnes. She notes both her feet and legs have increased pain after 10 minutes of static standing . She uses a cane for outdoor ambulation. Functional Limitations- Recreation/ limited recreational Hobbies activities due to decreased endurance and pain in her legs with activity PT-OP-C Subjective Start: 01/28/20 11:22 Freq: Status: Active Protocol: Document 07/05/20 13:47 SP (Rec: 07/05/20 14:58 SP [id number]) OP-PT Subjective Patient Comments Patient Comments Pt reported had her stress test and was told found some blockages, follow up with farm machinery assembler tomorrow. Pt reports her hip and buttocks are hurting her today while TM walking but wants to complete 8-10 min if able. PT-OP-F Manual Assessment Start: 01/28/20 11:22 Freq: Status: Active Protocol: Document 05/05/20 15:04 AMH (Rec: 05/05/20 15:06 AMH [email or web address]) Manual Assessments Soft Tissue Assessment Soft Tissue Mobility Assessment pt is showing some changes in calf and plantar flexion flexibility which is allowing her to progress her walking distance to 20 minutes PT-OP-J Posture/Palpation/Skin Start: 01/28/20 11:22 Freq: Status: Active Protocol: Document 01/28/20 11:15 AMH (Rec: 02/02/20 12:33 AMH [id number]) Palpation Assessment Location Two Palpation Location tibialis anterior Palpation Findings Soft Tissue Tightness Palpation Details scar tissue tightness throughout the muscle belly with limited ankle ROM into DF plantar fascia Palpation Location plantar fascia Palpation Findings Soft Tissue Tightness, Tenderness Palpation Details Very little flexibility from the plantar fascia due to tightness and limited ankle ROM One Palpation Location calf musculature B Palpation Findings Soft Tissue Tightness Palpation Details scar tissue noted throughout the muscular wall of the gastrocnemius and soleus musculature due to scleroderma PT-OP-K Range of Motion Start: 01/28/20 11:22 Freq: Status: Active Protocol: Document 05/05/20 15:04 AMH (Rec: 05/05/20 15:06 AMH [email or web address]) Ankle and Foot Goniometric Range of Motion Ankle and Foot Right Ankle/Foot ROM WFL No Testing Position Supine Dorsiflexion with Knee Flexed 8 Dorsiflexion with Knee Extended 4 Plantarflexion 8 Inversion 8 Eversion 8 Left Ankle/Foot ROM WFL No Testing Position Supine Dorsiflexion with Knee Flexed 10 Dorsiflexion with Knee Extended 5 Plantarflexion 8 Inversion 8 Eversion 8 PT-OP-M Strength Start: 01/28/20 11:22 Freq: Status: Active Protocol: Document 05/05/20 15:04 AMH (Rec: 05/05/20 15:06 AMH [email or web address]) Ankle/Foot Strength Ankle and Foot Manual Muscle Testing Right Dorsiflexion (L4) 3 Fair Plantarflexion (S1) 3 Fair Inversion 3 Fair Eversion (S1) 3 Fair Left Dorsiflexion (L4) 3 Fair Plantarflexion (S1) 3 Fair Inversion 3 Fair Eversion (S1) 3 Fair PT-OP-Q Treatments Start: 01/28/20 11:22 Freq: Status: Active Protocol: Document 07/05/20 13:47 SP (Rec: 07/05/20 14:58 SP [id number]) Cardio Equipment Treadmill Duration (Minutes) 10 Speed 01.0-1.4 mph Incline 0-0.5% Other cued increased stride, slow breath Therapeutic Exercises Supine Exercises D2 flexion Side bilateral Reps/Minutes x5 (5 sec hold) Comments with slow breaths diaphragmatic breathing Supine Exercise Name diaphragmatic breathing Reps/Minutes x 10 reps Comments supine, during and post walking on TM Standing Exercises calf raises Standing Exercise Name eccentric directioning Side bilateral Equipment Used 4 step, B HR Reps/Minutes x10 Manual Therapy Treatment Soft Tissue Mobilization Upper, middle traps Body Location B Mobilization Type Cross-Friction,Rolling Intensity/Depth Moderate Body Position Sitting Comments cued slow breaths B patellar tendon Body Location B Mobilization Type Cross-Friction Intensity/Depth Moderate Body Position Sitting Comments Long sitting Extra time spend over R patellar tendon to allow for elevation durign knee flexion. I can breath better. 1 Body Location B anterior and posterior shins /feet Mobilization Type Myofascial Release Intensity/Depth Superficial Body Position long sitting (rolled towel under B ischial tuberosities) Comments MFR was performed to B anterior and posterior shins and feet, PROM was performed at the ankles and feet Joint Mobilizations Patella mobes Joint B Direction med/lat/sup/inf Grade II Body Position Sitting Comments Long sitting. Manual Techniques 2 Type manual stretching for the gastroc/soleus complex Body Position Sitting 1 Type PROM stretches were performed at B ankles and feet, manual stretching Body Location B PF/ DF Body Position Sitting Comments improving ankle ROM with manual stretches PT-OP-R Modalities Start: 02/24/20 15:25 Freq: Status: Active Protocol: Document 03/25/20 13:46 SP (Rec: 03/29/20 11:58 SP [id number]) Hot Pack/Cold Pack Treatment Hot Pack Location R shld Patient Position Sitting Treatment Duration (minutes) 10 Patient Tolerance Good Comments decreased in discomfort anterior R shld end of tx. PT-OP-T Assessment and Plan Start: 01/28/20 11:22 Freq: Status: Active Protocol: Document 07/05/20 13:47 SP (Rec: 07/05/20 14:58 SP [id number]) Physical Therapy Assessment Goals Four Impairment Fay is not currently engaging in a home exercise program Short Term Goal (STG) Fay is instructed in exercises and gentle stretches as we progress through therapy that she is able to do at home. Fay is now working on a home stretching program for her LE and feet. She has also started cardiac rehab along with PT STG Duration 4-8 weeks Three Impairment Pain prevents Fay from standing more than 10 min and walking > 1/4 mile Senior Care Goal (LTG) Fay is able to increase her tolerance for standing to 30 minutes and walking 1/2 mile or greater at a time Fay has been working on increasing her time walking . She has been able to walk on the treadmill in the clinic for 20 minutes. These past 3 weeks she has experienced some shortness of breath. She has a negative covid test and now she is having cardiac tests performed. She was able to return to treadmill walking today for 16 minutes at 1.5 mph LTG Duration 8 weeks Two Impairment Limited ankle ROM creating difficulty with gait and balance activities Senior Care Goal (LTG) Fay demonstrates a improved in ankle ROM by at least 5 degrees for DF/PF/INV/EVR to assist with balance and gait activities Some progress LTG Duration 8 weeks One Impairment Pain rated 6/10 in B LE Short Term Goal (STG) Fay has a reduction in pain to 4-5/10 with manual therapy and ROM exercises GOOD PROGRESS Senior Care Goal (LTG) With manual therapy techniques and a home stretching/ exercise program Fay is able to reduce her pain from 6/10 tp 2-3/10 Some progress Fay reports her pain from the scleroderma is 4/10 now. Her neuropathy pain is rated 8/10 when it occurs Assessment Summary Assessment Pt reported improved ROM in B LE post manual STMs and Manual stretching. Improved breathing post patellar tendon and UT STMs and D2 flexion ROM in supine. Noted decreased endurance and + SOB during TM walking today. Took vitals post activity approx 2 min due to acquiring instruments. See notes for details, WNLs. Physical Therapy Plan Frequency and Duration Frequency of Treatment 2x/Week Duration of Treatment 8 Plan of Care Start Date 06/14/20 Plan of Care End Date 08/09/20 Therapeutic Interventions Therapeutic Interventions Balance Training,Home Exercise Program,Manual Therapy, Neuromuscular Re-education, Patient/Caregiver Education, Self-Care/Home Management,Soft Tissue Mobilization, Therapeutic Exercises Next Visit Focus/Plan Next Note Type Treatment Note Next Visit Plan Assess response to manual, PROM, standing stretches and TM walking last tx. Ask on if have results of echo, stress test and farm machinery assembler findings since last visit. Continue per PT POC: wait on chest assessment until after pt sees her cardiac doctor. Contine with LE ROM and stretching.
--- NOTE | 2020-07-07 15:49 | PT.OTN ---
Current Diagnoses Systemic sclerosis, unspecified (07/07/20) Physical Therapy Treatment Note PT-OP-A Visit Information Start: 01/28/20 11:22 Freq: Status: Active Protocol: Document 07/07/20 15:36 [facility] (Rec: 07/07/20 15:48 [facility] [id number]) Out-Patient Physical Therapy Visit Information Visit Information Visit Type Treatment Note Visit Start Time 09:00 Visit Stop Time 09:45 Total Visit Minutes 45 Visit Number 32 Number of MEAL TEMPERER Visits 0 PT-OP-B Current Condition Start: 01/28/20 11:22 Freq: Status: Active Protocol: Document 01/28/20 11:26 [facility] (Rec: 01/28/20 11:40 [facility] [id number]) Current Condition History of Current Condition Onset Date Pt has a chronic hx of scleroderma, recent flare after a HI July 08 Current Complaints painful ROM LE especially the ankles/feet,painful gait, decreased balance History of Current Condition Pt has a hisotry of scleroderma that affects her LE. This makes her legs so tight she has lost ROM in her ankles. She reports pain with walking, decresased balance and poor energy. She has been seen in PT years ago for help reducing tightness in her legs. She notes that symptms increased following a myocardial infacrtion in June of 2019. Fay reports for days before her heart attack she was having a buring pain in her chest, she was taken to the ER at [facility]. [facility]fered from [facility] to [facility] in [place]. She had 2 stents put in and then had a GI bleed. When she returned home and for awhile ( a week or two) she felt increased energy. But then it went away. Has new symptoms of psorasis and reports her legs feel very bound. Taking Consentyx the injection for Psorasis. The scleroderma in her feet and legs feels worse. She hasn't had treatment in so many years for her legs. She is taking blood thinners. SHe had been doing cardiac rehab and doing really good but had to stop due to covid 19 pandemic. She hasn't been walking as much as she had before and she reports 15-20 minutes is her walking max. Past medical history includes hx of cancer, depression, type II diabetes, dizzyness, memory loss, neuropathy, thyroid disorder, psychological disorder Treatment Goals Patient/Caregiver Goals pt reports she would like to get to 35-40 minutes of walking, other goals include balance training, strengthening, and loosening her leg muscles. Prior Functional Status Baseline Function- ADL's Independent Baseline Function- Mobility Independent Current Functional Impairments (Reported) Functional Limitations- Mobility/Gait Because of the tightness her balance is off and she feels really off balance. Standing hurts due to the leg tightnes. She notes both her feet and legs have increased pain after 10 minutes of static standing . She uses a cane for outdoor ambulation. 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 and that she is anemic PT-OP-F Manual Assessment Start: 01/28/20 11:22 Freq: Status: Active Protocol: Document 05/05/20 15:04 [facility] (Rec: 05/05/20 15:06 [facility] [email or web address]) Manual Assessments Soft Tissue Assessment Soft Tissue Mobility Assessment pt is showing some changes in calf and plantar flexion flexibility which is allowing her to progress her walking distance to 20 minutes PT-OP-J Posture/Palpation/Skin Start: 01/28/20 11:22 Freq: Status: Active Protocol: Document 01/28/20 11:15 [facility] (Rec: 02/02/20 12:33 [facility] [id number]) Palpation Assessment Location Two Palpation Location tibialis anterior Palpation Findings Soft Tissue Tightness Palpation Details scar tissue tightness throughout the muscle belly with limited ankle ROM into DF plantar fascia Palpation Location plantar fascia Palpation Findings Soft Tissue Tightness, Tenderness Palpation Details Very little flexibility from the plantar fascia due to tightness and limited ankle ROM One Palpation Location calf musculature B Palpation Findings Soft Tissue Tightness Palpation Details scar tissue noted throughout the muscular wall of the gastrocnemius and soleus musculature due to scleroderma PT-OP-K Range of Motion Start: 01/28/20 11:22 Freq: Status: Active Protocol: Document 05/05/20 15:04 [facility] (Rec: 05/05/20 15:06 [facility] [id number]) Ankle and Foot Goniometric Range of Motion Ankle and Foot Right Ankle/Foot ROM WFL No Testing Position Supine Dorsiflexion with Knee Flexed 8 Dorsiflexion with Knee Extended 4 Plantarflexion 8 Inversion 8 Eversion 8 Left Ankle/Foot ROM WFL No Testing Position Supine Dorsiflexion with Knee Flexed 10 Dorsiflexion with Knee Extended 5 Plantarflexion 8 Inversion 8 Eversion 8 PT-OP-M Strength Start: 01/28/20 11:22 Freq: Status: Active Protocol: Document 05/05/20 15:04 [facility] (Rec: 05/05/20 15:06 [facility] [email or web address]) Ankle/Foot Strength Ankle and Foot Manual Muscle Testing Right Dorsiflexion (L4) 3 Fair Plantarflexion (S1) 3 Fair Inversion 3 Fair Eversion (S1) 3 Fair Left Dorsiflexion (L4) 3 Fair Plantarflexion (S1) 3 Fair Inversion 3 Fair Eversion (S1) 3 Fair PT-OP-Q Treatments Start: 01/28/20 11:22 Freq: Status: Active Protocol: Document 07/07/20 15:36 [facility] (Rec: 07/07/20 15:48 [facility] [id number]) Manual Therapy Treatment Soft Tissue Mobilization Upper, middle traps Body Location B Mobilization Type Cross-Friction,Rolling Intensity/Depth Moderate Body Position Sitting Comments cued slow breaths B patellar tendon Body Location B Mobilization Type Cross-Friction Intensity/Depth Moderate Body Position Sitting Comments Long sitting Extra time spend over R patellar tendon to allow for elevation durign knee flexion. I can breath better. 1 Body Location B anterior and posterior shins /feet Mobilization Type Myofascial Release Intensity/Depth Superficial Body Position long sitting (rolled towel under B ischial tuberosities) Comments MFR was performed to B anterior and posterior shins and feet, PROM was performed at the ankles and feet Manual Techniques 2 Type manual stretching for the gastroc/soleus complex Body Position Sitting 1 Type PROM stretches were performed at B ankles and feet, manual stretching Body Location B PF/ DF Body Position Sitting Comments improving ankle ROM with manual stretches PT-OP-R Modalities Start: 02/24/20 15:25 Freq: Status: Active Protocol: Document 03/25/20 13:46 [facility] (Rec: 03/29/20 11:58 [facility] [id number]) Hot Pack/Cold Pack Treatment Hot Pack Location R shld Patient Position Sitting Treatment Duration (minutes) 10 Patient Tolerance Good Comments decreased in discomfort anterior R shld end of tx. PT-OP-T Assessment and Plan Start: 01/28/20 11:22 Freq: Status: Active Protocol: Document 07/07/20 15:36 [facility] (Rec: 07/07/20 15:48 [facility] [id number]) Physical Therapy Assessment Assessment Summary Assessment pt was attending cardiac rehab today following her appointment so she did not do the treadmill Physical Therapy Plan Frequency and Duration Frequency of Treatment 2x/Week Duration of Treatment 8 Plan of Care Start Date 06/14/20 Plan of Care End Date 08/09/20 Therapeutic Interventions Therapeutic Interventions Balance Training,Home Exercise Program,Manual Therapy, Neuromuscular Re-education, Patient/Caregiver Education, Self-Care/Home Management,Soft Tissue Mobilization, Therapeutic Exercises Next Visit Focus/Plan Next Note Type Treatment Note Next Visit Plan We worked today on diaphragmatic breathing during treatment. Fay still seems very fatigued today. She has not started her iron treatment yet.
--- NOTE | 2020-07-11 13:45 | PT.OTN ---
Current Diagnoses Systemic sclerosis, unspecified (07/11/20) Physical Therapy Treatment Note PT-OP-A Visit Information Start: 01/28/20 11:22 Freq: Status: Active Protocol: Document 07/11/20 13:02 [facility] (Rec: 07/11/20 13:52 [facility] [id number]) Out-Patient Physical Therapy Visit Information Visit Information Visit Type Treatment Note Visit Note + SOB: BP 111/56 HR 76, 98% Visit Start Time 13:02 Visit Stop Time 13:45 Total Visit Minutes 43 Visit Number 33 Number of MOBILE THERAPIST Visits 1 PT-OP-B Current Condition Start: 01/28/20 11:22 Freq: Status: Active Protocol: Document 01/28/20 11:26 [facility] (Rec: 01/28/20 11:40 [facility] [id number]) Current Condition History of Current Condition Onset Date Pt has a chronic hx of scleroderma, recent flare after a HI July 08 Current Complaints painful ROM LE especially the ankles/feet,painful gait, decreased balance History of Current Condition Pt has a hisotry of scleroderma that affects her LE. This makes her legs so tight she has lost ROM in her ankles. She reports pain with walking, decresased balance and poor energy. She has been seen in PT years ago for help reducing tightness in her legs. She notes that symptms increased following a myocardial infacrtion in June of 2019. Fay reports for days before her heart attack she was having a buring pain in her chest, she was taken to the ER at [facility] and then [facility] She was transfered from [facility] to [facility] in [place]. She had 2 stents put in and then had a GI bleed. When she returned home and for awhile ( a week or two) she felt increased energy. But then it went away. Has new symptoms of psorasis and reports her legs feel very bound. Taking Consentyx the injection for Psorasis. The scleroderma in her feet and legs feels worse. She hasn't had treatment in so many years for her legs. She is taking blood thinners. SHe had been doing cardiac rehab and doing really good but had to stop due to covid 19 pandemic. She hasn't been walking as much as she had before and she reports 15-20 minutes is her walking max. Past medical history includes hx of cancer, depression, type II diabetes, dizzyness, memory loss, neuropathy, thyroid disorder, psychological disorder Treatment Goals Patient/Caregiver Goals pt reports she would like to get to 35-40 minutes of walking, other goals include balance training, strengthening, and loosening her leg muscles. Prior Functional Status Baseline Function- ADL's Independent Baseline Function- Mobility Independent Current Functional Impairments (Reported) Functional Limitations- Mobility/Gait Because of the tightness her balance is off and she feels really off balance. Standing hurts due to the leg tightnes. She notes both her feet and legs have increased pain after 10 minutes of static standing . She uses a cane for outdoor ambulation. Functional Limitations- Recreation/ limited recreational Hobbies activities due to decreased endurance and pain in her legs with activity PT-OP-C Subjective Start: 01/28/20 11:22 Freq: Status: Active Protocol: Document 07/11/20 13:02 [facility] (Rec: 07/11/20 13:52 [facility] [id number]) OP-PT Subjective Patient Comments Patient Comments Pt reported pretty tired today , out of breath and stated last night was sitting wave of weakness and feel like going to pass out. PT-OP-F Manual Assessment Start: 01/28/20 11:22 Freq: Status: Active Protocol: Document 05/05/20 15:04 [facility] (Rec: 05/05/20 15:06 [facility] [email or web address]) Manual Assessments Soft Tissue Assessment Soft Tissue Mobility Assessment pt is showing some changes in calf and plantar flexion flexibility which is allowing her to progress her walking distance to 20 minutes PT-OP-J Posture/Palpation/Skin Start: 01/28/20 11:22 Freq: Status: Active Protocol: Document 01/28/20 11:15 [facility] (Rec: 02/02/20 12:33 [facility] [id number]) Palpation Assessment Location Two Palpation Location tibialis anterior Palpation Findings Soft Tissue Tightness Palpation Details scar tissue tightness throughout the muscle belly with limited ankle ROM into DF plantar fascia Palpation Location plantar fascia Palpation Findings Soft Tissue Tightness, Tenderness Palpation Details Very little flexibility from the plantar fascia due to tightness and limited ankle ROM One Palpation Location calf musculature B Palpation Findings Soft Tissue Tightness Palpation Details scar tissue noted throughout the muscular wall of the gastrocnemius and soleus musculature due to scleroderma PT-OP-K Range of Motion Start: 01/28/20 11:22 Freq: Status: Active Protocol: Document 05/05/20 15:04 [facility] (Rec: 05/05/20 15:06 [facility] [email or web address]) Ankle and Foot Goniometric Range of Motion Ankle and Foot Right Ankle/Foot ROM WFL No Testing Position Supine Dorsiflexion with Knee Flexed 8 Dorsiflexion with Knee Extended 4 Plantarflexion 8 Inversion 8 Eversion 8 Left Ankle/Foot ROM WFL No Testing Position Supine Dorsiflexion with Knee Flexed 10 Dorsiflexion with Knee Extended 5 Plantarflexion 8 Inversion 8 Eversion 8 PT-OP-M Strength Start: 01/28/20 11:22 Freq: Status: Active Protocol: Document 05/05/20 15:04 [facility] (Rec: 05/05/20 15:06 [facility] [email or web address]) Ankle/Foot Strength Ankle and Foot Manual Muscle Testing Right Dorsiflexion (L4) 3 Fair Plantarflexion (S1) 3 Fair Inversion 3 Fair Eversion (S1) 3 Fair Left Dorsiflexion (L4) 3 Fair Plantarflexion (S1) 3 Fair Inversion 3 Fair Eversion (S1) 3 Fair PT-OP-Q Treatments Start: 01/28/20 11:22 Freq: Status: Active Protocol: Document 07/11/20 13:02 [facility] (Rec: 07/11/20 13:52 SP [id number]) Therapeutic Exercises Supine Exercises diaphragmatic breathing Supine Exercise Name diaphragmatic breathing Reps/Minutes x 10 reps Comments supine, during and post walking on TM Manual Therapy Treatment Soft Tissue Mobilization Upper, middle traps Body Location B Mobilization Type Cross-Friction,Rolling Intensity/Depth Moderate Body Position Sitting Comments cued slow breaths B patellar tendon Body Location B Mobilization Type Cross-Friction Intensity/Depth Moderate Body Position Sitting Comments Long sitting Extra time spend over R patellar tendon to allow for elevation durign knee flexion. I can breath better. 1 Body Location B anterior and posterior shins /feet Mobilization Type Myofascial Release Intensity/Depth Superficial Body Position long sitting (rolled towel under B ischial tuberosities) Comments MFR was performed to B anterior and posterior shins and feet, PROM was performed at the ankles and feet Joint Mobilizations Patella mobes Joint B Direction med/lat/sup/inf Grade II Body Position Sitting Comments Long sitting. Manual Techniques 2 Type manual stretching for the gastroc/soleus complex Body Position Sitting 1 Type PROM stretches were performed at B ankles and feet, manual stretching Body Location B PF/ DF Body Position Sitting Comments improving ankle ROM with manual stretches PT-OP-R Modalities Start: 02/24/20 15:25 Freq: Status: Active Protocol: Document 03/25/20 13:46 [facility] (Rec: 03/29/20 11:58 [facility] [id number]) Hot Pack/Cold Pack Treatment Hot Pack Location R shld Patient Position Sitting Treatment Duration (minutes) 10 Patient Tolerance Good Comments decreased in discomfort anterior R shld end of tx. PT-OP-T Assessment and Plan Start: 01/28/20 11:22 Freq: Status: Active Protocol: Document 07/11/20 13:02 [facility] (Rec: 07/11/20 13:52 SP [id number]) Physical Therapy Assessment Goals Four Impairment Fay is not currently engaging in a home exercise program Short Term Goal (STG) Fay is instructed in exercises and gentle stretches as we progress through therapy that she is able to do at home. Fay is now working on a home stretching program for her LE and feet. She has also started cardiac rehab along with PT STG Duration 4-8 weeks Three Impairment Pain prevents Fay from standing more than 10 min and walking > 1/4 mile Speech Scientist Goal (LTG) Fay is able to increase her tolerance for standing to 30 minutes and walking 1/2 mile or greater at a time Fay has been working on increasing her time walking . She has been able to walk on the treadmill in the clinic for 20 minutes. These past 3 weeks she has experienced some shortness of breath. She has a negative covid test and now she is having cardiac tests performed. She was able to return to treadmill walking today for 16 minutes at 1.5 mph LTG Duration 8 weeks Two Impairment Limited ankle ROM creating difficulty with gait and balance activities Half-Way Goal (LTG) Fay demonstrates a improved in ankle ROM by at least 5 degrees for DF/PF/INV/EVR to assist with balance and gait activities Some progress LTG Duration 8 weeks One Impairment Pain rated 6/10 in B LE Short Term Goal (STG) Fay has a reduction in pain to 4-5/10 with manual therapy and ROM exercises GOOD PROGRESS Speech Scientist Goal (LTG) With manual therapy techniques and a home stretching/ exercise program Fay is able to reduce her pain from 6/10 tp 2-3/10 Some progress Fay reports her pain from the scleroderma is 4/10 now. Her neuropathy pain is rated 8/10 when it occurs Assessment Summary Assessment Tx focused on manual B LE to assist mobility and circulation. Pt had improvement of color and demonstrated increased volume of breath and my ankles are much more moveable at end of tx. Physical Therapy Plan Frequency and Duration Frequency of Treatment 2x/Week Duration of Treatment 8 Plan of Care Start Date 06/14/20 Plan of Care End Date 08/09/20 Therapeutic Interventions Therapeutic Interventions Balance Training,Home Exercise Program,Manual Therapy, Neuromuscular Re-education, Patient/Caregiver Education, Self-Care/Home Management,Soft Tissue Mobilization, Therapeutic Exercises Next Visit Focus/Plan Next Note Type Treatment Note Next Visit Plan We worked today on diaphragmatic breathing during treatment. Fay still seems very fatigued today. She has not started her iron over the counter meds. MOBILE THERAPIST encouraged calling physician to get feedback on iron wanting her to take and blood in stool today for safety assessment awareness.
--- NOTE | 2020-07-13 13:55 | PT.OTN ---
Current Diagnoses Systemic sclerosis, unspecified (07/13/20) Physical Therapy Treatment Note PT-OP-A Visit Information Start: 01/28/20 11:22 Freq: Status: Active Protocol: Document 07/13/20 13:45 [facility] (Rec: 07/13/20 13:55 [facility] [email or web address]) Out-Patient Physical Therapy Visit Information Visit Information Visit Type Treatment Note Visit Start Time 13:00 Visit Stop Time 13:45 Total Visit Minutes 45 Visit Number 34 Number of WINE SALES REPRESENTATIVE Visits 0 PT-OP-B Current Condition Start: 01/28/20 11:22 Freq: Status: Active Protocol: Document 01/28/20 11:26 [facility] (Rec: 01/28/20 11:40 [facility] [id number]) Current Condition History of Current Condition Onset Date Pt has a chronic hx of scleroderma, recent flare after a MT July 08 Current Complaints painful ROM LE especially the ankles/feet,painful gait, decreased balance History of Current Condition Pt has a hisotry of scleroderma that affects her LE. This makes her legs so tight she has lost ROM in her ankles. She reports pain with walking, decresased balance and poor energy. She has been seen in PT years ago for help reducing tightness in her legs. She notes that symptms increased following a myocardial infacrtion in June of 2019. Fay reports for days before her heart attack she was having a buring pain in her chest, she was taken to the ER at [facility] and then sent to [facility] She was transfered from [facility] to [facility] in [place]. She had 2 stents put in and then had a GI bleed. When she returned home and for awhile ( a week or two) she felt increased energy. But then it went away. Has new symptoms of psorasis and reports her legs feel very bound. Taking Consentyx the injection for Psorasis. The scleroderma in her feet and legs feels worse. She hasn't had treatment in so many years for her legs. She is taking blood thinners. SHe had been doing cardiac rehab and doing really good but had to stop due to covid 19 pandemic. She hasn't been walking as much as she had before and she reports 15-20 minutes is her walking max. Past medical history includes hx of cancer, depression, type II diabetes, dizzyness, memory loss, neuropathy, thyroid disorder, psychological disorder Treatment Goals Patient/Caregiver Goals pt reports she would like to get to 35-40 minutes of walking, other goals include balance training, strengthening, and loosening her leg muscles. Prior Functional Status Baseline Function- ADL's Independent Baseline Function- Mobility Independent Current Functional Impairments (Reported) Functional Limitations- Mobility/Gait Because of the tightness her balance is off and she feels really off balance. Standing hurts due to the leg tightnes. She notes both her feet and legs have increased pain after 10 minutes of static standing . She uses a cane for outdoor ambulation. Functional Limitations- Recreation/ limited recreational Hobbies activities due to decreased endurance and pain in her legs with activity PT-OP-C Subjective Start: 01/28/20 11:22 Freq: Status: Active Protocol: Document 07/13/20 13:45 [facility] (Rec: 07/13/20 13:55 [facility] [email or web address]) OP-PT Subjective Patient Comments Patient Comments pt reports she continues to be fatigued. She also feels more short of breath. Going to cardiac rehab today. She has PT-OP-F Manual Assessment Start: 01/28/20 11:22 Freq: Status: Active Protocol: Document 05/05/20 15:04 [facility] (Rec: 05/05/20 15:06 [facility] [email or web address]) Manual Assessments Soft Tissue Assessment Soft Tissue Mobility Assessment pt is showing some changes in calf and plantar flexion flexibility which is allowing her to progress her walking distance to 20 minutes PT-OP-J Posture/Palpation/Skin Start: 01/28/20 11:22 Freq: Status: Active Protocol: Document 01/28/20 11:15 [facility] (Rec: 02/02/20 12:33 [facility] [id number]) Palpation Assessment Location Two Palpation Location tibialis anterior Palpation Findings Soft Tissue Tightness Palpation Details scar tissue tightness throughout the muscle belly with limited ankle ROM into DF plantar fascia Palpation Location plantar fascia Palpation Findings Soft Tissue Tightness, Tenderness Palpation Details Very little flexibility from the plantar fascia due to tightness and limited ankle ROM One Palpation Location calf musculature B Palpation Findings Soft Tissue Tightness Palpation Details scar tissue noted throughout the muscular wall of the gastrocnemius and soleus musculature due to scleroderma PT-OP-K Range of Motion Start: 01/28/20 11:22 Freq: Status: Active Protocol: Document 05/05/20 15:04 [facility] (Rec: 05/05/20 15:06 [facility] [email or web address]) Ankle and Foot Goniometric Range of Motion Ankle and Foot Right Ankle/Foot ROM WFL No Testing Position Supine Dorsiflexion with Knee Flexed 8 Dorsiflexion with Knee Extended 4 Plantarflexion 8 Inversion 8 Eversion 8 Left Ankle/Foot ROM WFL No Testing Position Supine Dorsiflexion with Knee Flexed 10 Dorsiflexion with Knee Extended 5 Plantarflexion 8 Inversion 8 Eversion 8 PT-OP-M Strength Start: 01/28/20 11:22 Freq: Status: Active Protocol: Document 05/05/20 15:04 [facility] (Rec: 05/05/20 15:06 [facility] [email or web address]) Ankle/Foot Strength Ankle and Foot Manual Muscle Testing Right Dorsiflexion (L4) 3 Fair Plantarflexion (S1) 3 Fair Inversion 3 Fair Eversion (S1) 3 Fair Left Dorsiflexion (L4) 3 Fair Plantarflexion (S1) 3 Fair Inversion 3 Fair Eversion (S1) 3 Fair PT-OP-Q Treatments Start: 01/28/20 11:22 Freq: Status: Active Protocol: Document 07/13/20 13:45 [facility] (Rec: 07/13/20 13:55 [facility] [email or web address]) Therapeutic Exercises Supine Exercises diaphragmatic breathing Supine Exercise Name diaphragmatic breathing Reps/Minutes x 10 reps Comments seated inhale x 4 counts, exhale x 6 counts Manual Therapy Treatment Soft Tissue Mobilization Upper, middle traps Body Location B Mobilization Type Cross-Friction,Rolling Intensity/Depth Moderate Body Position Sitting Comments cued slow breaths B patellar tendon Body Location B Mobilization Type Cross-Friction Intensity/Depth Moderate Body Position Sitting Comments Long sitting Extra time spend over R patellar tendon to allow for elevation durign knee flexion. I can breath better. 1 Body Location B anterior and posterior shins /feet Mobilization Type Myofascial Release Intensity/Depth Superficial Body Position long sitting (rolled towel under B ischial tuberosities) Comments MFR was performed to B anterior and posterior shins and feet, PROM was performed at the ankles and feet Joint Mobilizations thoracic spine Joint PA glides in sitting Direction PA Grade II Body Position Sitting Comments pt had good tolerance today for seated thoracic mobilizations Manual Techniques 2 Type manual stretching for the gastroc/soleus complex Body Position Sitting 1 Type PROM stretches were performed at B ankles and feet, manual stretching Body Location B PF/ DF Body Position Sitting Comments improving ankle ROM with manual stretches PT-OP-R Modalities Start: 02/24/20 15:25 Freq: Status: Active Protocol: Document 03/25/20 13:46 SP (Rec: 03/29/20 11:58 SP [id number]) Hot Pack/Cold Pack Treatment Hot Pack Location R shld Patient Position Sitting Treatment Duration (minutes) 10 Patient Tolerance Good Comments decreased in discomfort anterior R shld end of tx. PT-OP-T Assessment and Plan Start: 01/28/20 11:22 Freq: Status: Active Protocol: Document 07/13/20 13:45 [facility] (Rec: 07/13/20 13:55 [facility] [email or web address]) Physical Therapy Assessment Assessment Summary Assessment Pt still had a whiter color to her toes today and lots of skin cirrhois today on the bottom of her feet. She was able to do some diaphragmatic breathing and felt better after treatment. Physical Therapy Plan Frequency and Duration Frequency of Treatment 2x/Week Duration of Treatment 8 Plan of Care Start Date 06/14/20 Plan of Care End Date 08/09/20 Therapeutic Interventions Therapeutic Interventions Balance Training,Home Exercise Program,Manual Therapy, Neuromuscular Re-education, Patient/Caregiver Education, Self-Care/Home Management,Soft Tissue Mobilization, Therapeutic Exercises Next Visit Focus/Plan Next Note Type Treatment Note Next Visit Plan Continue working on breathing, improving circulation in the LE and ankle and foot ROM
--- NOTE | 2020-07-18 13:40 | PT.OTN ---
Current Diagnoses Systemic sclerosis, unspecified (07/18/20) Physical Therapy Treatment Note PT-OP-A Visit Information Start: 01/28/20 11:22 Freq: Status: Active Protocol: Document 07/18/20 13:00 SP (Rec: 07/18/20 13:51 SP [id number]) Out-Patient Physical Therapy Visit Information Visit Information Visit Type Treatment Note Visit Start Time 13:00 Visit Stop Time 13:40 Total Visit Minutes 40 Visit Number 35 Number of ASSOCIATE DIRECTOR QA Visits 1 PT-OP-B Current Condition Start: 01/28/20 11:22 Freq: Status: Active Protocol: Document 01/28/20 11:26 [facility] (Rec: 01/28/20 11:40 [facility] [id number]) Current Condition History of Current Condition Onset Date Pt has a chronic hx of scleroderma, recent flare after a [place] July 08 Current Complaints painful ROM LE especially the ankles/feet,painful gait, decreased balance History of Current Condition Pt has a hisotry of scleroderma that affects her LE. This makes her legs so tight she has lost ROM in her ankles. She reports pain with walking, decresased balance and poor energy. She has been seen in PT years ago for help reducing tightness in her legs. She notes that symptms increased following a myocardial infacrtion in June of 2019. Fay reports for days before her heart attack she was having a buring pain in her chest, she was taken to the ER at [facility] and then sent to [facility]. She was transfered from [facility] to [facility] in [place]. She had 2 stents put in and then had a GI bleed. When she returned home and for awhile ( a week or two) she felt increased energy. But then it went away. Has new symptoms of psorasis and reports her legs feel very bound. Taking Consentyx the injection for Psorasis. The scleroderma in her feet and legs feels worse. She hasn't had treatment in so many years for her legs. She is taking blood thinners. SHe had been doing cardiac rehab and doing really good but had to stop due to covid 19 pandemic. She hasn't been walking as much as she had before and she reports 15-20 minutes is her walking max. Past medical history includes hx of cancer, depression, type II diabetes, dizzyness, memory loss, neuropathy, thyroid disorder, psychological disorder Treatment Goals Patient/Caregiver Goals pt reports she would like to get to 35-40 minutes of walking, other goals include balance training, strengthening, and loosening her leg muscles. Prior Functional Status Baseline Function- ADL's Independent Baseline Function- Mobility Independent Current Functional Impairments (Reported) Functional Limitations- Mobility/Gait Because of the tightness her balance is off and she feels really off balance. Standing hurts due to the leg tightnes. She notes both her feet and legs have increased pain after 10 minutes of static standing . She uses a cane for outdoor ambulation. Functional Limitations- Recreation/ limited recreational Hobbies activities due to decreased endurance and pain in her legs with activity PT-OP-C Subjective Start: 01/28/20 11:22 Freq: Status: Active Protocol: Document 07/18/20 13:00 SP (Rec: 07/18/20 13:51 SP [id number]) OP-PT Subjective Patient Comments Patient Comments Pt reported I am not much different, still not alot of energy, taking iron now, didn' t get enougth sleep last night due to loud noises outside this am. PT-OP-F Manual Assessment Start: 01/28/20 11:22 Freq: Status: Active Protocol: Document 05/05/20 15:04 [facility] (Rec: 05/05/20 15:06 [facility] [email or web address]) Manual Assessments Soft Tissue Assessment Soft Tissue Mobility Assessment pt is showing some changes in calf and plantar flexion flexibility which is allowing her to progress her walking distance to 20 minutes PT-OP-J Posture/Palpation/Skin Start: 01/28/20 11:22 Freq: Status: Active Protocol: Document 01/28/20 11:15 [facility] (Rec: 02/02/20 12:33 [facility] [id number]) Palpation Assessment Location Two Palpation Location tibialis anterior Palpation Findings Soft Tissue Tightness Palpation Details scar tissue tightness throughout the muscle belly with limited ankle ROM into DF plantar fascia Palpation Location plantar fascia Palpation Findings Soft Tissue Tightness, Tenderness Palpation Details Very little flexibility from the plantar fascia due to tightness and limited ankle ROM One Palpation Location calf musculature B Palpation Findings Soft Tissue Tightness Palpation Details scar tissue noted throughout the muscular wall of the gastrocnemius and soleus musculature due to scleroderma PT-OP-K Range of Motion Start: 01/28/20 11:22 Freq: Status: Active Protocol: Document 05/05/20 15:04 [facility] (Rec: 05/05/20 15:06 [facility] [email or web address]) Ankle and Foot Goniometric Range of Motion Ankle and Foot Right Ankle/Foot ROM WFL No Testing Position Supine Dorsiflexion with Knee Flexed 8 Dorsiflexion with Knee Extended 4 Plantarflexion 8 Inversion 8 Eversion 8 Left Ankle/Foot ROM WFL No Testing Position Supine Dorsiflexion with Knee Flexed 10 Dorsiflexion with Knee Extended 5 Plantarflexion 8 Inversion 8 Eversion 8 PT-OP-M Strength Start: 01/28/20 11:22 Freq: Status: Active Protocol: Document 05/05/20 15:04 [facility] (Rec: 05/05/20 15:06 [facility] [email or web address]) Ankle/Foot Strength Ankle and Foot Manual Muscle Testing Right Dorsiflexion (L4) 3 Fair Plantarflexion (S1) 3 Fair Inversion 3 Fair Eversion (S1) 3 Fair Left Dorsiflexion (L4) 3 Fair Plantarflexion (S1) 3 Fair Inversion 3 Fair Eversion (S1) 3 Fair PT-OP-Q Treatments Start: 01/28/20 11:22 Freq: Status: Active Protocol: Document 07/18/20 13:00 SP (Rec: 07/28/20 12:56 SP [id number]) Manual Therapy Treatment Soft Tissue Mobilization Upper, middle traps Body Location B Mobilization Type Cross-Friction,Rolling Intensity/Depth Moderate Body Position Sitting Comments cued slow breaths B patellar tendon Body Location B Mobilization Type Cross-Friction Intensity/Depth Moderate Body Position Sitting Comments Long sitting Extra time spend over R patellar tendon to allow for elevation durign knee flexion. I can breath better. 1 Body Location B anterior and posterior shins /feet Mobilization Type Myofascial Release Intensity/Depth Superficial Body Position long sitting (rolled towel under B ischial tuberosities) Comments MFR was performed to B anterior and posterior shins and feet, PROM was performed at the ankles and feet Joint Mobilizations Patella mobes Joint B Direction med/lat/sup/inf Grade II Body Position Sitting Comments Long sitting. Manual Techniques 2 Type manual stretching for the gastroc/soleus complex Body Position Sitting 1 Type PROM stretches were performed at B ankles and feet, manual stretching Body Location B PF/ DF Body Position Sitting Comments improving ankle ROM with manual stretches PT-OP-R Modalities Start: 02/24/20 15:25 Freq: Status: Active Protocol: Document 03/25/20 13:46 SP (Rec: 03/29/20 11:58 SP [id number]) Hot Pack/Cold Pack Treatment Hot Pack Location R shld Patient Position Sitting Treatment Duration (minutes) 10 Patient Tolerance Good Comments decreased in discomfort anterior R shld end of tx. PT-OP-T Assessment and Plan Start: 01/28/20 11:22 Freq: Status: Active Protocol: Document 07/18/20 13:00 SP (Rec: 07/18/20 13:51 SP [id number]) Physical Therapy Assessment Goals Four Impairment Fay is not currently engaging in a home exercise program Short Term Goal (STG) Fay is instructed in exercises and gentle stretches as we progress through therapy that she is able to do at home. Fay is now working on a home stretching program for her LE and feet. She has also started cardiac rehab along with PT STG Duration 4-8 weeks Three Impairment Pain prevents Fay from standing more than 10 min and walking > 1/4 mile Lumber Kiln Operator Goal (LTG) Fay is able to increase her tolerance for standing to 30 minutes and walking 1/2 mile or greater at a time Fay has been working on increasing her time walking . She has been able to walk on the treadmill in the clinic for 20 minutes. These past 3 weeks she has experienced some shortness of breath. She has a negative covid test and now she is having cardiac tests performed. She was able to return to treadmill walking today for 16 minutes at 1.5 mph LTG Duration 8 weeks Two Impairment Limited ankle ROM creating difficulty with gait and balance activities Half-Way Goal (LTG) Fay demonstrates a improved in ankle ROM by at least 5 degrees for DF/PF/INV/EVR to assist with balance and gait activities Some progress LTG Duration 8 weeks One Impairment Pain rated 6/10 in B LE Short Term Goal (STG) Fay has a reduction in pain to 4-5/10 with manual therapy and ROM exercises GOOD PROGRESS Half-Way Goal (LTG) With manual therapy techniques and a home stretching/ exercise program Fay is able to reduce her pain from 6/10 tp 2-3/10 Some progress Fay reports her pain from the scleroderma is 4/10 now. Her neuropathy pain is rated 8/10 when it occurs Assessment Summary Assessment Pt continues to be fatigued today requested focus on manual to prepare for class after tx. Improved in color today pinkish on R foot and from purple to light red on L end of manual STMs and stretching. Improved skin psoriasis on plantar from past 2 treatments. L plantar foot small skin abrasion almost healed now. Pt was able to improved breath expansion and increased ankle ROM end of tx. Pt had to leave early to attend cardiorehab today. Physical Therapy Plan Frequency and Duration Frequency of Treatment 2x/Week Duration of Treatment 8 Plan of Care Start Date 06/14/20 Plan of Care End Date 08/09/20 Therapeutic Interventions Therapeutic Interventions Balance Training,Home Exercise Program,Manual Therapy, Neuromuscular Re-education, Patient/Caregiver Education, Self-Care/Home Management,Soft Tissue Mobilization, Therapeutic Exercises Next Visit Focus/Plan Next Note Type Treatment Note Next Visit Plan Continue working on breathing, improving circulation in the LE and ankle and foot ROM
--- NOTE | 2020-07-18 13:40 | PT.OTN ---
Current Diagnoses Systemic sclerosis, unspecified (07/18/20) Physical Therapy Treatment Note PT-OP-A Visit Information Start: 01/28/20 11:22 Freq: Status: Active Protocol: Document 07/18/20 13:00 SP (Rec: 07/18/20 13:51 SP [id number]) Out-Patient Physical Therapy Visit Information Visit Information Visit Type Treatment Note Visit Start Time 13:00 Visit Stop Time 13:40 Total Visit Minutes 40 Visit Number 35 Number of LAMINATION TECHNICIAN Visits 1 PT-OP-B Current Condition Start: 01/28/20 11:22 Freq: Status: Active Protocol: Document 01/28/20 11:26 [facility] (Rec: 01/28/20 11:40 [facility] [id number]) Current Condition History of Current Condition Onset Date Pt has a chronic hx of scleroderma, recent flare after a [place] July 08 Current Complaints painful ROM LE especially the ankles/feet,painful gait, decreased balance History of Current Condition Pt has a hisotry of scleroderma that affects her LE. This makes her legs so tight she has lost ROM in her ankles. She reports pain with walking, decresased balance and poor energy. She has been seen in PT years ago for help reducing tightness in her legs. She notes that symptms increased following a myocardial infacrtion in June of 2019. Fay reports for days before her heart attack she was having a buring pain in her chest, she was taken to the ER at [facility] and then sent to [facility]. She was transfered from [facility] to [facility] in [place]. She had 2 stents put in and then had a GI bleed. When she returned home and for awhile ( a week or two) she felt increased energy. But then it went away. Has new symptoms of psorasis and reports her legs feel very bound. Taking Consentyx the injection for Psorasis. The scleroderma in her feet and legs feels worse. She hasn't had treatment in so many years for her legs. She is taking blood thinners. SHe had been doing cardiac rehab and doing really good but had to stop due to covid 19 pandemic. She hasn't been walking as much as she had before and she reports 15-20 minutes is her walking max. Past medical history includes hx of cancer, depression, type II diabetes, dizzyness, memory loss, neuropathy, thyroid disorder, psychological disorder Treatment Goals Patient/Caregiver Goals pt reports she would like to get to 35-40 minutes of walking, other goals include balance training, strengthening, and loosening her leg muscles. Prior Functional Status Baseline Function- ADL's Independent Baseline Function- Mobility Independent Current Functional Impairments (Reported) Functional Limitations- Mobility/Gait Because of the tightness her balance is off and she feels really off balance. Standing hurts due to the leg tightnes. She notes both her feet and legs have increased pain after 10 minutes of static standing . She uses a cane for outdoor ambulation. Functional Limitations- Recreation/ limited recreational Hobbies activities due to decreased endurance and pain in her legs with activity PT-OP-C Subjective Start: 01/28/20 11:22 Freq: Status: Active Protocol: Document 07/18/20 13:00 SP (Rec: 07/18/20 13:51 SP [id number]) OP-PT Subjective Patient Comments Patient Comments Pt reported I am not much different, still not alot of energy, taking iron now, didn' t get enougth sleep last night due to loud noises outside this am. PT-OP-F Manual Assessment Start: 01/28/20 11:22 Freq: Status: Active Protocol: Document 05/05/20 15:04 [facility] (Rec: 05/05/20 15:06 [facility] [id number]) Manual Assessments Soft Tissue Assessment Soft Tissue Mobility Assessment pt is showing some changes in calf and plantar flexion flexibility which is allowing her to progress her walking distance to 20 minutes PT-OP-J Posture/Palpation/Skin Start: 01/28/20 11:22 Freq: Status: Active Protocol: Document 01/28/20 11:15 AM[facility] (Rec: 02/02/20 12:33 [facility] [id number]) Palpation Assessment Location Two Palpation Location tibialis anterior Palpation Findings Soft Tissue Tightness Palpation Details scar tissue tightness throughout the muscle belly with limited ankle ROM into DF plantar fascia Palpation Location plantar fascia Palpation Findings Soft Tissue Tightness, Tenderness Palpation Details Very little flexibility from the plantar fascia due to tightness and limited ankle ROM One Palpation Location calf musculature B Palpation Findings Soft Tissue Tightness Palpation Details scar tissue noted throughout the muscular wall of the gastrocnemius and soleus musculature due to scleroderma PT-OP-K Range of Motion Start: 01/28/20 11:22 Freq: Status: Active Protocol: Document 05/05/20 15:04 AM[facility] (Rec: 05/05/20 15:06 [facility] [id number]) Ankle and Foot Goniometric Range of Motion Ankle and Foot Right Ankle/Foot ROM WFL No Testing Position Supine Dorsiflexion with Knee Flexed 8 Dorsiflexion with Knee Extended 4 Plantarflexion 8 Inversion 8 Eversion 8 Left Ankle/Foot ROM WFL No Testing Position Supine Dorsiflexion with Knee Flexed 10 Dorsiflexion with Knee Extended 5 Plantarflexion 8 Inversion 8 Eversion 8 PT-OP-M Strength Start: 01/28/20 11:22 Freq: Status: Active Protocol: Document 05/05/20 15:04 AM[facility] (Rec: 05/05/20 15:06 [facility] [id number]) Ankle/Foot Strength Ankle and Foot Manual Muscle Testing Right Dorsiflexion (L4) 3 Fair Plantarflexion (S1) 3 Fair Inversion 3 Fair Eversion (S1) 3 Fair Left Dorsiflexion (L4) 3 Fair Plantarflexion (S1) 3 Fair Inversion 3 Fair Eversion (S1) 3 Fair PT-OP-Q Treatments Start: 01/28/20 11:22 Freq: Status: Active Protocol: Document 07/18/20 13:00 SP (Rec: 07/18/20 13:51 SP [id number]) Therapeutic Exercises Supine Exercises diaphragmatic breathing Supine Exercise Name diaphragmatic breathing Reps/Minutes x 10 reps Comments seated inhale x 4 counts, exhale x 6 counts Sitting Exercises Scap retraction Sitting Exercise Name scap retraction, depression Side bilateral Reps/Minutes 5 sec hold x5 Standing Exercises calf raises Standing Exercise Name eccentric directioning Side bilateral Equipment Used 4 step, B HR Reps/Minutes x8 Comments cued slow controlled stretch PT-OP-R Modalities Start: 02/24/20 15:25 Freq: Status: Active Protocol: Document 03/25/20 13:46 SP (Rec: 03/29/20 11:58 SP [id number]) Hot Pack/Cold Pack Treatment Hot Pack Location R shld Patient Position Sitting Treatment Duration (minutes) 10 Patient Tolerance Good Comments decreased in discomfort anterior R shld end of tx. PT-OP-T Assessment and Plan Start: 01/28/20 11:22 Freq: Status: Active Protocol: Document 07/18/20 13:00 SP (Rec: 07/18/20 13:51 SP [id number]) Physical Therapy Assessment Goals Four Impairment Fay is not currently engaging in a home exercise program Short Term Goal (STG) Fay is instructed in exercises and gentle stretches as we progress through therapy that she is able to do at home. Fay is now working on a home stretching program for her LE and feet. She has also started cardiac rehab along with PT STG Duration 4-8 weeks Three Impairment Pain prevents Fay from standing more than 10 min and walking > 1/4 mile Packaging Clerk Goal (LTG) Fay is able to increase her tolerance for standing to 30 minutes and walking 1/2 mile or greater at a time Fay has been working on increasing her time walking . She has been able to walk on the treadmill in the clinic for 20 minutes. These past 3 weeks she has experienced some shortness of breath. She has a negative covid test and now she is having cardiac tests performed. She was able to return to treadmill walking today for 16 minutes at 1.5 mph LTG Duration 8 weeks Two Impairment Limited ankle ROM creating difficulty with gait and balance activities Packaging Clerk Goal (LTG) Fay demonstrates a improved in ankle ROM by at least 5 degrees for DF/PF/INV/EVR to assist with balance and gait activities Some progress LTG Duration 8 weeks One Impairment Pain rated 6/10 in B LE Short Term Goal (STG) Fay has a reduction in pain to 4-5/10 with manual therapy and ROM exercises [employer]GR[employer] Senior Living Goal (LTG) With manual therapy techniques and a home stretching/ exercise program Fay is able to reduce her pain from 6/10 tp 2-3/10 Some progress Fay reports her pain from the scleroderma is 4/10 now. Her neuropathy pain is rated 8/10 when it occurs Assessment Summary Assessment Pt continues to be fatigued today requested focus on manual to prepare for class after tx. Improved in color today pinkish on R foot and from purple to light red on L end of manual STMs and stretching. Improved skin psoriasis on plantar from past 2 treatments. L plantar foot small skin abrasion almost healed now. Pt was able to improved breath expansion and increased ankle ROM end of tx. Pt had to leave early to attend cardiorehab today. Physical Therapy Plan Frequency and Duration Frequency of Treatment 2x/Week Duration of Treatment 8 Plan of Care Start Date 06/14/20 Plan of Care End Date 08/09/20 Therapeutic Interventions Therapeutic Interventions Balance Training,Home Exercise Program,Manual Therapy, Neuromuscular Re-education, Patient/Caregiver Education, Self-Care/Home Management,Soft Tissue Mobilization, Therapeutic Exercises Next Visit Focus/Plan Next Note Type Treatment Note Next Visit Plan Continue working on breathing, improving circulation in the LE and ankle and foot ROM
--- NOTE | 2020-08-01 16:08 | PT.OTN ---
Current Diagnoses Systemic sclerosis, unspecified (08/01/20) Physical Therapy Treatment Note PT-OP-A Visit Information Start: 01/28/20 11:22 Freq: Status: Active Protocol: Document 08/01/20 15:26 SP (Rec: 08/01/20 16:19 SP [id number]) Out-Patient Physical Therapy Visit Information Visit Information Visit Type Treatment Note Visit Note Pt not attended on time so brought pt back late. Visit Start Time 15:26 Visit Stop Time 16:08 Total Visit Minutes 42 Visit Number 36 Number of RECEIVER STOCKER Visits 2 PT-OP-B Current Condition Start: 01/28/20 11:22 Freq: Status: Active Protocol: Document 01/28/20 11:26 [facility] (Rec: 01/28/20 11:40 [facility] [id number]) Current Condition History of Current Condition Onset Date Pt has a chronic hx of scleroderma, recent flare after a PR July 08 Current Complaints painful ROM LE especially the ankles/feet,painful gait, decreased balance History of Current Condition Pt has a hisotry of scleroderma that affects her LE. This makes her legs so tight she has lost ROM in her ankles. She reports pain with walking, decresased balance and poor energy. She has been seen in PT years ago for help reducing tightness in her legs. She notes that symptms increased following a myocardial infacrtion in June of 2019. Fay reports for days before her heart attack she was having a buring pain in her chest, she was taken to the ER at [facility] and then sent to [facility]. She was transfered from [facility] to [facility] in [place]. She had 2 stents put in and then had a GI bleed. When she returned home and for awhile ( a week or two) she felt increased energy. But then it went away. Has new symptoms of psorasis and reports her legs feel very bound. Taking Consentyx the injection for Psorasis. The scleroderma in her feet and legs feels worse. She hasn't had treatment in so many years for her legs. She is taking blood thinners. SHe had been doing cardiac rehab and doing really good but had to stop due to covid 19 pandemic. She hasn't been walking as much as she had before and she reports 15-20 minutes is her walking max. Past medical history includes hx of cancer, depression, type II diabetes, dizzyness, memory loss, neuropathy, thyroid disorder, psychological disorder Treatment Goals Patient/Caregiver Goals pt reports she would like to get to 35-40 minutes of walking, other goals include balance training, strengthening, and loosening her leg muscles. Prior Functional Status Baseline Function- ADL's Independent Baseline Function- Mobility Independent Current Functional Impairments (Reported) Functional Limitations- Mobility/Gait Because of the tightness her balance is off and she feels really off balance. Standing hurts due to the leg tightnes. She notes both her feet and legs have increased pain after 10 minutes of static standing . She uses a cane for outdoor ambulation. Functional Limitations- Recreation/ limited recreational Hobbies activities due to decreased endurance and pain in her legs with activity PT-OP-C Subjective Start: 01/28/20 11:22 Freq: Status: Active Protocol: Document 08/01/20 15:26 SP (Rec: 08/01/20 16:19 SP [id number]) OP-PT Subjective Patient Comments Patient Comments Pt came from cardio rehab, did well today doing strengthening and cardio equipment. Able to increase her speed and elevation. Missed last couple appointments due to adverse reactions of anesthesia and colonoscopy. Patient Reported Progress Improving PT-OP-F Manual Assessment Start: 01/28/20 11:22 Freq: Status: Active Protocol: Document 05/05/20 15:04 [facility] (Rec: 05/05/20 15:06 [facility] [id number]) Manual Assessments Soft Tissue Assessment Soft Tissue Mobility Assessment pt is showing some changes in calf and plantar flexion flexibility which is allowing her to progress her walking distance to 20 minutes PT-OP-J Posture/Palpation/Skin Start: 01/28/20 11:22 Freq: Status: Active Protocol: Document 01/28/20 11:15 [facility] (Rec: 02/02/20 12:33 [facility] [id number]) Palpation Assessment Location Two Palpation Location tibialis anterior Palpation Findings Soft Tissue Tightness Palpation Details scar tissue tightness throughout the muscle belly with limited ankle ROM into DF plantar fascia Palpation Location plantar fascia Palpation Findings Soft Tissue Tightness, Tenderness Palpation Details Very little flexibility from the plantar fascia due to tightness and limited ankle ROM One Palpation Location calf musculature B Palpation Findings Soft Tissue Tightness Palpation Details scar tissue noted throughout the muscular wall of the gastrocnemius and soleus musculature due to scleroderma PT-OP-K Range of Motion Start: 01/28/20 11:22 Freq: Status: Active Protocol: Document 05/05/20 15:04 [facility] (Rec: 05/05/20 15:06 [facility] [email or web address]) Ankle and Foot Goniometric Range of Motion Ankle and Foot Right Ankle/Foot ROM WFL No Testing Position Supine Dorsiflexion with Knee Flexed 8 Dorsiflexion with Knee Extended 4 Plantarflexion 8 Inversion 8 Eversion 8 Left Ankle/Foot ROM WFL No Testing Position Supine Dorsiflexion with Knee Flexed 10 Dorsiflexion with Knee Extended 5 Plantarflexion 8 Inversion 8 Eversion 8 PT-OP-M Strength Start: 01/28/20 11:22 Freq: Status: Active Protocol: Document 05/05/20 15:04 [facility] (Rec: 05/05/20 15:06 [facility] [email or web address]) Ankle/Foot Strength Ankle and Foot Manual Muscle Testing Right Dorsiflexion (L4) 3 Fair Plantarflexion (S1) 3 Fair Inversion 3 Fair Eversion (S1) 3 Fair Left Dorsiflexion (L4) 3 Fair Plantarflexion (S1) 3 Fair Inversion 3 Fair Eversion (S1) 3 Fair PT-OP-Q Treatments Start: 01/28/20 11:22 Freq: Status: Active Protocol: Document 08/01/20 15:26 SP (Rec: 08/01/20 16:19 SP [id number]) Therapeutic Exercises Standing Exercises step up/ downs Side bilateral Equipment Used L HR Reps/Minutes 2x10 leading R and L calf raises Standing Exercise Name eccentric directioning Side bilateral Equipment Used 4 step, B HR Reps/Minutes x8 Comments cued slow controlled stretch Manual Therapy Treatment Soft Tissue Mobilization B patellar tendon Body Location B Mobilization Type Cross-Friction Intensity/Depth Moderate Body Position Sitting Comments Long sitting Extra time spend over R patellar tendon to allow for elevation durign knee flexion. I can breath better. 1 Body Location B anterior and posterior shins /feet Mobilization Type Myofascial Release Intensity/Depth Superficial Body Position long sitting (rolled towel under B ischial tuberosities) Comments MFR was performed to B anterior and posterior shins and feet, PROM was performed at the ankles and feet Joint Mobilizations Patella mobes Joint B Direction med/lat/sup/inf Grade II Body Position Sitting Comments Long sitting. Manual Techniques 2 Type manual stretching for the gastroc/soleus complex Body Position Sitting 1 Type PROM stretches were performed at B ankles and feet, manual stretching Body Location B PF/ DF Body Position Sitting Comments improving ankle ROM with manual stretches Neuro Re-Education Treatment Balance Activities hurdles Details step to patterning Surface stable Equipment at rail PRN support Reps/Duration x4 laps Comments CGA via GB, cued hip abd facilitation w/ COG over RHETT to allow increased balance PT-OP-R Modalities Start: 02/24/20 15:25 Freq: Status: Active Protocol: Document 03/25/20 13:46 SP (Rec: 03/29/20 11:58 SP [id number]) Hot Pack/Cold Pack Treatment Hot Pack Location R shld Patient Position Sitting Treatment Duration (minutes) 10 Patient Tolerance Good Comments decreased in discomfort anterior R shld end of tx. PT-OP-T Assessment and Plan Start: 01/28/20 11:22 Freq: Status: Active Protocol: Document 08/01/20 15:26 SP (Rec: 08/01/20 16:19 SP [id number]) Physical Therapy Assessment Goals Four Impairment Fay is not currently engaging in a home exercise program Short Term Goal (STG) Fya is instructed in exercises and gentle stretches as we progress through therapy that she is able to do at home. Fay is now working on a home stretching program for her LE and feet. She has also started cardiac rehab along with PT STG Duration 4-8 weeks Three Impairment Pain prevents Fay from standing more than 10 min and walking > 1/4 mile Detention Goal (LTG) Fay is able to increase her tolerance for standing to 30 minutes and walking 1/2 mile or greater at a time Fay has been working on increasing her time walking . She has been able to walk on the treadmill in the clinic for 20 minutes. These past 3 weeks she has experienced some shortness of breath. She has a negative covid test and now she is having cardiac tests performed. She was able to return to treadmill walking today for 16 minutes at 1.5 mph LTG Duration 8 weeks Two Impairment Limited ankle ROM creating difficulty with gait and balance activities Photolettering Machine Operator Goal (LTG) Fay demonstrates a improved in ankle ROM by at least 5 degrees for DF/PF/INV/EVR to assist with balance and gait activities Some progress LTG Duration 8 weeks One Impairment Pain rated 6/10 in B LE Short Term Goal (STG) Fay has a reduction in pain to 4-5/10 with manual therapy and ROM exercises GOOD PROGRESS Detention Goal (LTG) With manual therapy techniques and a home stretching/ exercise program Fay is able to reduce her pain from 6/10 tp 2-3/10 Some progress Fay reports her pain from the scleroderma is 4/10 now. Her neuropathy pain is rated 8/10 when it occurs Assessment Summary Assessment Pt attended CR before PT tx today and commented performed well with increase speed/ incline. Tx focused on manual, ankle mobility ther ex and functional SLS roger stepping . Pt required cued for R hip abductor Gluted med facilitation w/ COG over RHETT to allow increased stance time to allow opposite LE transition over roger for improving balance for gait in community. Physical Therapy Plan Frequency and Duration Frequency of Treatment 2x/Week Duration of Treatment 8 Plan of Care Start Date 06/14/20 Plan of Care End Date 08/09/20 Therapeutic Interventions Therapeutic Interventions Balance Training,Home Exercise Program,Manual Therapy, Neuromuscular Re-education, Patient/Caregiver Education, Self-Care/Home Management,Soft Tissue Mobilization, Therapeutic Exercises Next Visit Focus/Plan Next Note Type Treatment Note Next Visit Plan Assess ther ex and roger stepping along with potential sport cord stepping or hurdles before going to CR next tx. Continue per PT POC: working on breathing, improving circulation in the LE and ankle and foot ROM
--- NOTE | 2020-08-03 14:40 | PT.OTN ---
Current Diagnoses Systemic sclerosis, unspecified (08/03/20) Physical Therapy Treatment Note PT-OP-A Visit Information Start: 01/28/20 11:22 Freq: Status: Active Protocol: Document 08/03/20 14:16 [facility] (Rec: 08/03/20 14:40 [facility] [id number]) Out-Patient Physical Therapy Visit Information Visit Information Visit Type Progress Note Visit Start Time 12:45 Visit Stop Time 13:30 Total Visit Minutes 45 Visit Number 37 Number of NEW ACCOUNT INTERVIEWER Visits 0 PT-OP-B Current Condition Start: 01/28/20 11:22 Freq: Status: Active Protocol: Document 01/28/20 11:26 [facility] (Rec: 01/28/20 11:40 [facility] [id number]) Current Condition History of Current Condition Onset Date Pt has a chronic hx of scleroderma, recent flare after a ID July 08 Current Complaints painful ROM LE especially the ankles/feet,painful gait, decreased balance History of Current Condition Pt has a hisotry of scleroderma that affects her LE. This makes her legs so tight she has lost ROM in her ankles. She reports pain with walking, decresased balance and poor energy. She has been seen in PT years ago for help reducing tightness in her legs. She notes that symptms increased following a myocardial infacrtion in June of 2019. Fay reports for days before her heart attack she was having a buring pain in her chest, she was taken to the ER at [facility] and then sent to [facility] She was transfered from [facility] to [facility] in [place]. She had 2 stents put in and then had a GI bleed. When she returned home and for awhile ( a week or two) she felt increased energy. But then it went away. Has new symptoms of psorasis and reports her legs feel very bound. Taking Consentyx the injection for Psorasis. The scleroderma in her feet and legs feels worse. She hasn't had treatment in so many years for her legs. She is taking blood thinners. SHe had been doing cardiac rehab and doing really good but had to stop due to covid 19 pandemic. She hasn't been walking as much as she had before and she reports 15-20 minutes is her walking max. Past medical history includes hx of cancer, depression, type II diabetes, dizzyness, memory loss, neuropathy, thyroid disorder, psychological disorder Treatment Goals Patient/Caregiver Goals pt reports she would like to get to 35-40 minutes of walking, other goals include balance training, strengthening, and loosening her leg muscles. Prior Functional Status Baseline Function- ADL's Independent Baseline Function- Mobility Independent Current Functional Impairments (Reported) Functional Limitations- Mobility/Gait Because of the tightness her balance is off and she feels really off balance. Standing hurts due to the leg tightnes. She notes both her feet and legs have increased pain after 10 minutes of static standing . She uses a cane for outdoor ambulation. Functional Limitations- Recreation/ limited recreational Hobbies activities due to decreased endurance and pain in her legs with activity PT-OP-C Subjective Start: 01/28/20 11:22 Freq: Status: Active Protocol: Document 08/03/20 14:16 [facility] (Rec: 08/03/20 14:40 [facility] [email or web address]) OP-PT Subjective Patient Comments Patient Comments pt notes she feels she is still recovering from her colonoscopy. She has cardiac rehab following treatment today. PT-OP-F Manual Assessment Start: 01/28/20 11:22 Freq: Status: Active Protocol: Document 05/05/20 15:04 [facility] (Rec: 05/05/20 15:06 [facility] [email or web address]) Manual Assessments Soft Tissue Assessment Soft Tissue Mobility Assessment pt is showing some changes in calf and plantar flexion flexibility which is allowing her to progress her walking distance to 20 minutes PT-OP-J Posture/Palpation/Skin Start: 01/28/20 11:22 Freq: Status: Active Protocol: Document 01/28/20 11:15 [facility] (Rec: 02/02/20 12:33 [facility] [id number]) Palpation Assessment Location Two Palpation Location tibialis anterior Palpation Findings Soft Tissue Tightness Palpation Details scar tissue tightness throughout the muscle belly with limited ankle ROM into DF plantar fascia Palpation Location plantar fascia Palpation Findings Soft Tissue Tightness, Tenderness Palpation Details Very little flexibility from the plantar fascia due to tightness and limited ankle ROM One Palpation Location calf musculature B Palpation Findings Soft Tissue Tightness Palpation Details scar tissue noted throughout the muscular wall of the gastrocnemius and soleus musculature due to scleroderma PT-OP-K Range of Motion Start: 01/28/20 11:22 Freq: Status: Active Protocol: Document 05/05/20 15:04 [facility] (Rec: 05/05/20 15:06 [facility] [email or web address]) Ankle and Foot Goniometric Range of Motion Ankle and Foot Right Ankle/Foot ROM WFL No Testing Position Supine Dorsiflexion with Knee Flexed 8 Dorsiflexion with Knee Extended 4 Plantarflexion 8 Inversion 8 Eversion 8 Left Ankle/Foot ROM WFL No Testing Position Supine Dorsiflexion with Knee Flexed 10 Dorsiflexion with Knee Extended 5 Plantarflexion 8 Inversion 8 Eversion 8 PT-OP-M Strength Start: 01/28/20 11:22 Freq: Status: Active Protocol: Document 05/05/20 15:04 [facility] (Rec: 05/05/20 15:06 [facility] [email or web address]) Ankle/Foot Strength Ankle and Foot Manual Muscle Testing Right Dorsiflexion (L4) 3 Fair Plantarflexion (S1) 3 Fair Inversion 3 Fair Eversion (S1) 3 Fair Left Dorsiflexion (L4) 3 Fair Plantarflexion (S1) 3 Fair Inversion 3 Fair Eversion (S1) 3 Fair PT-OP-Q Treatments Start: 01/28/20 11:22 Freq: Status: Active Protocol: Document 08/03/20 14:16 [facility] (Rec: 08/03/20 14:40 [facility] [email or web address]) Manual Therapy Treatment Soft Tissue Mobilization 1 Body Location B anterior and posterior shins /feet Mobilization Type Myofascial Release Intensity/Depth Superficial Body Position long sitting (rolled towel under B ischial tuberosities) Comments MFR was performed to B anterior and posterior shins and feet, PROM was performed at the ankles and feet PT-OP-R Modalities Start: 02/24/20 15:25 Freq: Status: Active Protocol: Document 03/25/20 13:46 SP (Rec: 03/29/20 11:58 SP [id number]) Hot Pack/Cold Pack Treatment Hot Pack Location R shld Patient Position Sitting Treatment Duration (minutes) 10 Patient Tolerance Good Comments decreased in discomfort anterior R shld end of tx. PT-OP-T Assessment and Plan Start: 01/28/20 11:22 Freq: Status: Active Protocol: Document 08/03/20 14:16 [facility] (Rec: 08/03/20 14:40 [facility] [email or web address]) Physical Therapy Assessment Goals Four Impairment Fay is not currently engaging in a home exercise program Short Term Goal (STG) Fay is instructed in exercises and gentle stretches as we progress through therapy that she is able to do at home. Fay is now working on a home stretching program for her LE and feet. She has also started cardiac rehab along with PT STG Duration 4-8 weeks Three Impairment Pain prevents Fay from standing more than 10 min and walking > 1/4 mile Correction Goal (LTG) Fay is able to increase her tolerance for standing to 30 minutes and walking 1/2 mile or greater at a time. Shortness of breath she had experienced has decreased LTG Duration 8 weeks Two Impairment Limited ankle ROM creating difficulty with gait and balance activities Correction Goal (LTG) Fay demonstrates a improved in ankle ROM by at least 5 degrees for DF/PF/INV/EVR to assist with balance and gait activities Some progress LTG Duration 8 weeks One Impairment Pain rated 6/10 in B LE Short Term Goal (STG) Fay has a reduction in pain to 4-5/10 with manual therapy and ROM exercises GOOD PROGRESS Software Technical Lead Goal (LTG) With manual therapy techniques and a home stretching/ exercise program Fay is able to reduce her pain from 6/10 tp 2-3/10 Some progress Fay reports her pain from the scleroderma is 4/10 now. Her neuropathy pain is rated 8/10 when it occurs Assessment Summary Assessment Fay continues to make progress with PT. She is noting increased speed with walking and feels the PT has been helpful for her with her balance as well. Physical Therapy Plan Frequency and Duration Frequency of Treatment 2x/Week Duration of Treatment 8 Plan of Care Start Date 08/03/20 Plan of Care End Date 09/28/20 Therapeutic Interventions Therapeutic Interventions Balance Training,Home Exercise Program,Manual Therapy, Neuromuscular Re-education, Patient/Caregiver Education, Self-Care/Home Management,Soft Tissue Mobilization, Therapeutic Exercises Next Visit Focus/Plan Next Note Type Treatment Note Next Visit Plan continue working on balance with hurdles as well as working on improved ankle ROM with manual therapy work.
--- NOTE | 2020-08-03 14:41 | PT.OPPOC ---
Physical, Occupational & Speech Therapy At [facility] Current Diagnoses Systemic sclerosis, unspecified (08/03/20) Visit Care Team Role Provider Type Timur Schwartz MD Primary Care Provider Physician Specialty: Internal Medicine Address: [address] [place] [address], [id number] Email: [email or web address] Gage Palomares DO Attending Provider Non-Staff Referring Provider Specialty: Dermatology Address: [address] [place] [address], [id number] Email: Plan Of Care PT-OP-T Assessment and Plan Start: 01/28/20 11:22 Freq: Status: Active Protocol: Document 08/03/20 14:16 [facility] (Rec: 08/03/20 14:40 [facility] [email or web address]) Physical Therapy Assessment Goals Four Impairment Fay is not currently engaging in a home exercise program Short Term Goal (STG) Fay is instructed in exercises and gentle stretches as we progress through therapy that she is able to do at home. Fay is now working on a home stretching program for her LE and feet. She has also started cardiac rehab along with PT STG Duration 4-8 weeks Three Impairment Pain prevents Fay from standing more than 10 min and walking > 1/4 mile Cold Roller Goal (LTG) Fay is able to increase her tolerance for standing to 30 minutes and walking 1/2 mile or greater at a time. Shortness of breath she had experienced has decreased LTG Duration 8 weeks Two Impairment Limited ankle ROM creating difficulty with gait and balance activities Fdc Goal (LTG) Fay demonstrates a improved in ankle ROM by at least 5 degrees for DF/PF/INV/EVR to assist with balance and gait activities Some progress LTG Duration 8 weeks One Impairment Pain rated 6/10 in B LE Short Term Goal (STG) Fay has a reduction in pain to 4-5/10 with manual therapy and ROM exercises GOOD PROGRESS Fdc Goal (LTG) With manual therapy techniques and a home stretching/ exercise program Fay is able to reduce her pain from 6/10 tp 2-3/10 Some progress Fay reports her pain from the scleroderma is 4/10 now. Her neuropathy pain is rated 8/10 when it occurs Assessment Summary Assessment Fay continues to make progress with PT. She is noting increased speed with walking and feels the PT has been helpful for her with her balance as well. Physical Therapy Plan Frequency and Duration Frequency of Treatment 2x/Week Duration of Treatment 8 Plan of Care Start Date 08/03/20 Plan of Care End Date 09/28/20 Therapeutic Interventions Therapeutic Interventions Balance Training,Home Exercise Program,Manual Therapy, Neuromuscular Re-education, Patient/Caregiver Education, Self-Care/Home Management,Soft Tissue Mobilization, Therapeutic Exercises Next Visit Focus/Plan Next Note Type Treatment Note Next Visit Plan continue working on balance with hurdles as well as working on improved ankle ROM with manual therapy work. Plan of Care Dates Plan of Care Start Date 08/03/20 Plan of Care End Date 09/28/20 Electronically Signed by: Nidhi Villanueva, PT 08/03/20 0630 Please Sign and Return: I have reviewed this Plan of Care and certify that the skilled therapy services above are required to meet the patient?s needs. Physician Signature Date Printed Name and Credentials Clinical Instructor Signature Printed Name and Credentials
--- NOTE | 2020-08-08 16:04 | PT.OTN ---
Current Diagnoses Systemic sclerosis, unspecified (08/08/20) Physical Therapy Treatment Note PT-OP-A Visit Information Start: 01/28/20 11:22 Freq: Status: Active Protocol: Document 08/08/20 15:20 SP (Rec: 08/09/20 16:13 SP [id number]) Out-Patient Physical Therapy Visit Information Visit Information Visit Type Treatment Note Visit Start Time 15:20 Visit Stop Time 16:04 Total Visit Minutes 44 Visit Number 38 Number of ACCOUNT MANAGEMENT ASSISTANT Visits 1 PT-OP-B Current Condition Start: 01/28/20 11:22 Freq: Status: Active Protocol: Document 01/28/20 11:26 [facility] (Rec: 01/28/20 11:40 [facility] [id number]) Current Condition History of Current Condition Onset Date Pt has a chronic hx of scleroderma, recent flare after a [place] July 08 Current Complaints painful ROM LE especially the ankles/feet,painful gait, decreased balance History of Current Condition Pt has a hisotry of scleroderma that affects her LE. This makes her legs so tight she has lost ROM in her ankles. She reports pain with walking, decresased balance and poor energy. She has been seen in PT years ago for help reducing tightness in her legs. She notes that symptms increased following a myocardial infacrtion in June of 2019. Fay reports for days before her heart attack she was having a buring pain in her chest, she was taken to the ER at [facility] and then sent to [facility]. She was transfered from [facility] to [facility] in [place]. She had 2 stents put in and then had a GI bleed. When she returned home and for awhile ( a week or two) she felt increased energy. But then it went away. Has new symptoms of psorasis and reports her legs feel very bound. Taking Consentyx the injection for Psorasis. The scleroderma in her feet and legs feels worse. She hasn't had treatment in so many years for her legs. She is taking blood thinners. SHe had been doing cardiac rehab and doing really good but had to stop due to covid 19 pandemic. She hasn't been walking as much as she had before and she reports 15-20 minutes is her walking max. Past medical history includes hx of cancer, depression, type II diabetes, dizzyness, memory loss, neuropathy, thyroid disorder, psychological disorder Treatment Goals Patient/Caregiver Goals pt reports she would like to get to 35-40 minutes of walking, other goals include balance training, strengthening, and loosening her leg muscles. Prior Functional Status Baseline Function- ADL's Independent Baseline Function- Mobility Independent Current Functional Impairments (Reported) Functional Limitations- Mobility/Gait Because of the tightness her balance is off and she feels really off balance. Standing hurts due to the leg tightnes. She notes both her feet and legs have increased pain after 10 minutes of static standing . She uses a cane for outdoor ambulation. Functional Limitations- Recreation/ limited recreational Hobbies activities due to decreased endurance and pain in her legs with activity PT-OP-C Subjective Start: 01/28/20 11:22 Freq: Status: Active Protocol: Document 08/08/20 15:20 SP (Rec: 08/09/20 16:13 SP [id number]) OP-PT Subjective Patient Comments Patient Comments Pt reported just came from cardio rehab and got nauseous after TM while doing therapy ball work and needed stop for sit rest. She also stated did was ableto increase her UE wt to #3 DB with her exercises though. PT-OP-F Manual Assessment Start: 01/28/20 11:22 Freq: Status: Active Protocol: Document 05/05/20 15:04 [facility] (Rec: 05/05/20 15:06 [facility] [id number]) Manual Assessments Soft Tissue Assessment Soft Tissue Mobility Assessment pt is showing some changes in calf and plantar flexion flexibility which is allowing her to progress her walking distance to 20 minutes PT-OP-J Posture/Palpation/Skin Start: 01/28/20 11:22 Freq: Status: Active Protocol: Document 01/28/20 11:15 [facility] (Rec: 02/02/20 12:33 [facility] [id number]) Palpation Assessment Location Two Palpation Location tibialis anterior Palpation Findings Soft Tissue Tightness Palpation Details scar tissue tightness throughout the muscle belly with limited ankle ROM into DF plantar fascia Palpation Location plantar fascia Palpation Findings Soft Tissue Tightness, Tenderness Palpation Details Very little flexibility from the plantar fascia due to tightness and limited ankle ROM One Palpation Location calf musculature B Palpation Findings Soft Tissue Tightness Palpation Details scar tissue noted throughout the muscular wall of the gastrocnemius and soleus musculature due to scleroderma PT-OP-K Range of Motion Start: 01/28/20 11:22 Freq: Status: Active Protocol: Document 05/05/20 15:04 [facility] (Rec: 05/05/20 15:06 [facility] [id number]) Ankle and Foot Goniometric Range of Motion Ankle and Foot Right Ankle/Foot ROM WFL No Testing Position Supine Dorsiflexion with Knee Flexed 8 Dorsiflexion with Knee Extended 4 Plantarflexion 8 Inversion 8 Eversion 8 Left Ankle/Foot ROM WFL No Testing Position Supine Dorsiflexion with Knee Flexed 10 Dorsiflexion with Knee Extended 5 Plantarflexion 8 Inversion 8 Eversion 8 PT-OP-M Strength Start: 01/28/20 11:22 Freq: Status: Active Protocol: Document 05/05/20 15:04 [facility] (Rec: 05/05/20 15:06 [facility] [id number]) Ankle/Foot Strength Ankle and Foot Manual Muscle Testing Right Dorsiflexion (L4) 3 Fair Plantarflexion (S1) 3 Fair Inversion 3 Fair Eversion (S1) 3 Fair Left Dorsiflexion (L4) 3 Fair Plantarflexion (S1) 3 Fair Inversion 3 Fair Eversion (S1) 3 Fair PT-OP-Q Treatments Start: 01/28/20 11:22 Freq: Status: Active Protocol: Document 08/08/20 15:20 SP (Rec: 08/09/20 16:13 SP [id number]) Therapeutic Exercises Standing Exercises step up/ downs Side bilateral Equipment Used L HR Reps/Minutes 2x10 leading R and L ankle mobility/anterior hip stretch Standing Exercise Name anterior hip stretch Side bilateral Resistance AROM Equipment Used 2 nd step, B HR Reps/Minutes 20 each LE calf raises Standing Exercise Name eccentric directioning Side bilateral Equipment Used 4 step, B HR Reps/Minutes x8 Comments cued slow controlled stretch Other Exercises self STMs using rolling stick Other Exercise Name quad, HS, ITB, gastroc Side bilateral Equipment Used rolling pin Reps/Minutes 1 min total Comments seated in chair for self STMs for application at home- good feedback Manual Therapy Treatment Soft Tissue Mobilization B patellar tendon Body Location B Mobilization Type Cross-Friction Intensity/Depth Moderate Body Position Sitting Comments Long sitting Extra time spend over R patellar tendon to allow for elevation durign knee flexion. I can breath better. 1 Body Location B anterior and posterior shins /feet Mobilization Type Myofascial Release Intensity/Depth Superficial Body Position long sitting (rolled towel under B ischial tuberosities) Comments MFR was performed to B anterior and posterior shins and feet, PROM was performed at the ankles and feet Joint Mobilizations MTPs, intertarsals, calcaneus on talus/navicular Joint B Direction AP, med/lat Grade II Body Position Sitting Comments long sitting Patella mobes Joint B Direction med/lat/sup/inf Grade II Body Position Sitting Comments Long sitting. Manual Techniques 2 Type manual stretching for the gastroc/soleus complex Body Location B Body Position Sitting Comments long sitting 1 Type PROM stretches were performed at B ankles and feet, manual stretching Body Location B PF/ DF Body Position Sitting Comments improving ankle ROM with manual stretches Neuro Re-Education Treatment Balance Activities SLS f/b/s star taps Surface stable Reps/Duration 5 reps Comments cued COG over RHETT, glut facilitaiton, light contact floor tap to improve SLS. hurdles Details step to patterning Surface stable Equipment at rail PRN support Reps/Duration x4 laps Comments CGA via GB, cued hip abd facilitation w/ COG over RHETT to allow increased balance PT-OP-R Modalities Start: 02/24/20 15:25 Freq: Status: Active Protocol: Document 03/25/20 13:46 SP (Rec: 03/29/20 11:58 SP [id number]) Hot Pack/Cold Pack Treatment Hot Pack Location R shld Patient Position Sitting Treatment Duration (minutes) 10 Patient Tolerance Good Comments decreased in discomfort anterior R shld end of tx. PT-OP-T Assessment and Plan Start: 01/28/20 11:22 Freq: Status: Active Protocol: Document 08/08/20 15:20 SP (Rec: 08/09/20 16:13 SP [id number]) Physical Therapy Assessment Goals Four Impairment Fay is not currently engaging in a home exercise program Short Term Goal (STG) Fay is instructed in exercises and gentle stretches as we progress through therapy that she is able to do at home. Fay is now working on a home stretching program for her LE and feet. She has also started cardiac rehab along with PT STG Duration 4-8 weeks Three Impairment Pain prevents Fay from standing more than 10 min and walking > 1/4 mile Half-Way Goal (LTG) Fay is able to increase her tolerance for standing to 30 minutes and walking 1/2 mile or greater at a time. 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 Her neuropathy pain is rated 8/10 when it occurs Assessment Summary Assessment Pt reported manual helps to increase her ankle ROM when leaving tx. Instructed self STMs using rolling pin for home use with good feedback, that is very helpful and siimilar can do at home. Continued roger stepping with CG- Lashae for suport due to decrease SLS time. Intiated step f/b/side step taps with cuing for incresae wt shift over stance LE with decrease WB on moving LE to allow incresae stance time and thus balance with chair nearby for contact support as needed with good response this is help ful and I can do this at home to improve. Verbally discussed all HEP in chart have given for home will review if endurance in tx for home carryover progression. Physical Therapy Plan Frequency and Duration Frequency of Treatment 2x/Week Duration of Treatment 8 Plan of Care Start Date 08/03/20 Plan of Care End Date 09/28/20 Therapeutic Interventions Therapeutic Interventions Balance Training,Home Exercise Program,Manual Therapy, Neuromuscular Re-education, Patient/Caregiver Education, Self-Care/Home Management,Soft Tissue Mobilization, Therapeutic Exercises Next Visit Focus/Plan Next Note Type Treatment Note Next Visit Plan assess responses to SLS step taps and stick rolling intiated for home flex and balance carry over. continue working on balance with hurdles as well as working on improved ankle ROM with manual therapy work.
--- NOTE | 2020-08-16 17:39 | PT.OTN ---
Current Diagnoses Systemic sclerosis, unspecified (08/16/20) Physical Therapy Treatment Note PT-OP-A Visit Information Start: 01/28/20 11:22 Freq: Status: Active Protocol: Document 08/16/20 17:33 [facility] (Rec: 08/16/20 17:39 [facility] [id number]) Out-Patient Physical Therapy Visit Information Visit Information Visit Type Treatment Note Visit Start Time 14:30 Visit Stop Time 15:15 Total Visit Minutes 45 Visit Number 39 Number of GEOMATICS PROFESSOR Visits 0 PT-OP-B Current Condition Start: 01/28/20 11:22 Freq: Status: Active Protocol: Document 01/28/20 11:26 [facility] (Rec: 01/28/20 11:40 [facility] [id number]) Current Condition History of Current Condition Onset Date Pt has a chronic hx of scleroderma, recent flare after a [place] July 08 Current Complaints painful ROM LE especially the ankles/feet,painful gait, decreased balance History of Current Condition Pt has a hisotry of scleroderma that affects her LE. This makes her legs so tight she has lost ROM in her ankles. She reports pain with walking, decresased balance and poor energy. She has been seen in PT years ago for help reducing tightness in her legs. She notes that symptms increased following a myocardial infacrtion in June of 2019. Fay reports for days before her heart attack she was having a buring pain in her chest, she was taken to the ER at [facility] and then sent to [facility]. She was transfered from [facility] to [facility] in [place]. She had 2 stents put in and then had a GI bleed. When she returned home and for awhile ( a week or two) she felt increased energy. But then it went away. Has new symptoms of psorasis and reports her legs feel very bound. Taking Consentyx the injection for Psorasis. The scleroderma in her feet and legs feels worse. She hasn't had treatment in so many years for her legs. She is taking blood thinners. SHe had been doing cardiac rehab and doing really good but had to stop due to covid 19 pandemic. She hasn't been walking as much as she had before and she reports 15-20 minutes is her walking max. Past medical history includes hx of cancer, depression, type II diabetes, dizzyness, memory loss, neuropathy, thyroid disorder, psychological disorder Treatment Goals Patient/Caregiver Goals pt reports she would like to get to 35-40 minutes of walking, other goals include balance training, strengthening, and loosening her leg muscles. Prior Functional Status Baseline Function- ADL's Independent Baseline Function- Mobility Independent Current Functional Impairments (Reported) Functional Limitations- Mobility/Gait Because of the tightness her balance is off and she feels really off balance. Standing hurts due to the leg tightnes. She notes both her feet and legs have increased pain after 10 minutes of static standing . She uses a cane for outdoor ambulation. Functional Limitations- Recreation/ limited recreational Hobbies activities due to decreased endurance and pain in her legs with activity PT-OP-C Subjective Start: 01/28/20 11:22 Freq: Status: Active Protocol: Document 08/16/20 17:33 [facility] (Rec: 08/16/20 17:39 [facility] [id number]) OP-PT Subjective Patient Comments Patient Comments pt states she is feeling more out of breath. Has appt with a pulmonary doctor. PT-OP-F Manual Assessment Start: 01/28/20 11:22 Freq: Status: Active Protocol: Document 05/05/20 15:04 [facility] (Rec: 05/05/20 15:06 [facility] [id number]) Manual Assessments Soft Tissue Assessment Soft Tissue Mobility Assessment pt is showing some changes in calf and plantar flexion flexibility which is allowing her to progress her walking distance to 20 minutes PT-OP-J Posture/Palpation/Skin Start: 01/28/20 11:22 Freq: Status: Active Protocol: Document 01/28/20 11:15 [facility] (Rec: 02/02/20 12:33 [facility] [id number]) Palpation Assessment Location Two Palpation Location tibialis anterior Palpation Findings Soft Tissue Tightness Palpation Details scar tissue tightness throughout the muscle belly with limited ankle ROM into DF plantar fascia Palpation Location plantar fascia Palpation Findings Soft Tissue Tightness, Tenderness Palpation Details Very little flexibility from the plantar fascia due to tightness and limited ankle ROM One Palpation Location calf musculature B Palpation Findings Soft Tissue Tightness Palpation Details scar tissue noted throughout the muscular wall of the gastrocnemius and soleus musculature due to scleroderma PT-OP-K Range of Motion Start: 01/28/20 11:22 Freq: Status: Active Protocol: Document 05/05/20 15:04 [facility] (Rec: 05/05/20 15:06 [facility] [id number]) Ankle and Foot Goniometric Range of Motion Ankle and Foot Right Ankle/Foot ROM WFL No Testing Position Supine Dorsiflexion with Knee Flexed 8 Dorsiflexion with Knee Extended 4 Plantarflexion 8 Inversion 8 Eversion 8 Left Ankle/Foot ROM WFL No Testing Position Supine Dorsiflexion with Knee Flexed 10 Dorsiflexion with Knee Extended 5 Plantarflexion 8 Inversion 8 Eversion 8 PT-OP-M Strength Start: 01/28/20 11:22 Freq: Status: Active Protocol: Document 05/05/20 15:04 [facility] (Rec: 05/05/20 15:06 [facility] [id number]) Ankle/Foot Strength Ankle and Foot Manual Muscle Testing Right Dorsiflexion (L4) 3 Fair Plantarflexion (S1) 3 Fair Inversion 3 Fair Eversion (S1) 3 Fair Left Dorsiflexion (L4) 3 Fair Plantarflexion (S1) 3 Fair Inversion 3 Fair Eversion (S1) 3 Fair PT-OP-Q Treatments Start: 01/28/20 11:22 Freq: Status: Active Protocol: Document 08/16/20 17:33 [facility] (Rec: 08/16/20 17:39 [facility] [id number]) Manual Therapy Treatment Soft Tissue Mobilization B patellar tendon Body Location B Mobilization Type Cross-Friction Intensity/Depth Moderate Body Position Sitting Comments Long sitting Extra time spend over R patellar tendon to allow for elevation durign knee flexion. I can breath better. 1 Body Location B anterior and posterior shins /feet Mobilization Type Myofascial Release Intensity/Depth Superficial Body Position long sitting (rolled towel under B ischial tuberosities) Comments MFR was performed to B anterior and posterior shins and feet, PROM was performed at the ankles and feet Joint Mobilizations thoracic spine Joint PA glides in sitting Direction PA Grade II Body Position Sitting Comments pt had good tolerance today for seated thoracic mobilizations Manual Techniques 2 Type manual stretching for the gastroc/soleus complex Body Location B Body Position Sitting Comments long sitting 1 Type PROM stretches were performed at B ankles and feet, manual stretching Body Location B PF/ DF Body Position Sitting Comments improving ankle ROM with manual stretches PT-OP-R Modalities Start: 02/24/20 15:25 Freq: Status: Active Protocol: Document 03/25/20 13:46 SP (Rec: 03/29/20 11:58 SP [id number]) Hot Pack/Cold Pack Treatment Hot Pack Location R shld Patient Position Sitting Treatment Duration (minutes) 10 Patient Tolerance Good Comments decreased in discomfort anterior R shld end of tx. PT-OP-T Assessment and Plan Start: 01/28/20 11:22 Freq: Status: Active Protocol: Document 08/16/20 17:33 [facility] (Rec: 08/16/20 17:39 [facility] [id number]) Physical Therapy Assessment Assessment Summary Assessment Fay has 2 visits left in PT. She is still feeling limited at this point by her shortness of breath and will follow up with her pulmonary doctor. Treatment did not include the TM today because of her shortness of breath Physical Therapy Plan Frequency and Duration Frequency of Treatment 2x/Week Duration of Treatment 8 Plan of Care Start Date 08/03/20 Plan of Care End Date 09/28/20 Therapeutic Interventions Therapeutic Interventions Balance Training,Home Exercise Program,Manual Therapy, Neuromuscular Re-education, Patient/Caregiver Education, Self-Care/Home Management,Soft Tissue Mobilization, Therapeutic Exercises Next Visit Focus/Plan Next Note Type Treatment Note Next Visit Plan assess responses to SLS step taps and stick rolling intiated for home flex and balance carry over. continue working on balance with hurdles as well as working on improved ankle ROM with manual therapy work.
--- NOTE | 2020-08-18 17:40 | PT.OTN ---
Current Diagnoses Systemic sclerosis, unspecified (08/18/20) Physical Therapy Treatment Note PT-OP-A Visit Information Start: 01/28/20 11:22 Freq: Status: Active Protocol: Document 08/18/20 13:03 [facility] (Rec: 08/18/20 13:04 [facility] [id number]) Out-Patient Physical Therapy Visit Information Visit Information Visit Type Treatment Note Visit Start Time 13:00 Visit Stop Time 13:45 Total Visit Minutes 45 Visit Number 40 PT-OP-B Current Condition Start: 01/28/20 11:22 Freq: Status: Active Protocol: Document 01/28/20 11:26 [facility] (Rec: 01/28/20 11:40 [facility] [id number]) Current Condition History of Current Condition Onset Date Pt has a chronic hx of scleroderma, recent flare after a [place] July 08 Current Complaints painful ROM LE especially the ankles/feet,painful gait, decreased balance History of Current Condition Pt has a hisotry of scleroderma that affects her LE. This makes her legs so tight she has lost ROM in her ankles. She reports pain with walking, decresased balance and poor energy. She has been seen in PT years ago for help reducing tightness in her legs. She notes that symptms increased following a myocardial infacrtion in June of 2019. Fay reports for days before her heart attack she was having a buring pain in her chest, she was taken to the ER at [facility] and then sent to [facility]. She was transfered from [facility] to [facility] in [place]. She had 2 stents put in and then had a GI bleed. When she returned home and for awhile ( a week or two) she felt increased energy. But then it went away. Has new symptoms of psorasis and reports her legs feel very bound. Taking Consentyx the injection for Psorasis. The scleroderma in her feet and legs feels worse. She hasn't had treatment in so many years for her legs. She is taking blood thinners. SHe had been doing cardiac rehab and doing really good but had to stop due to covid 19 pandemic. She hasn't been walking as much as she had before and she reports 15-20 minutes is her walking max. Past medical history includes hx of cancer, depression, type II diabetes, dizzyness, memory loss, neuropathy, thyroid disorder, psychological disorder Treatment Goals Patient/Caregiver Goals pt reports she would like to get to 35-40 minutes of walking, other goals include balance training, strengthening, and loosening her leg muscles. Prior Functional Status Baseline Function- ADL's Independent Baseline Function- Mobility Independent Current Functional Impairments (Reported) Functional Limitations- Mobility/Gait Because of the tightness her balance is off and she feels really off balance. Standing hurts due to the leg tightnes. She notes both her feet and legs have increased pain after 10 minutes of static standing . She uses a cane for outdoor ambulation. Functional Limitations- Recreation/ limited recreational Hobbies activities due to decreased endurance and pain in her legs with activity PT-OP-C Subjective Start: 01/28/20 11:22 Freq: Status: Active Protocol: Document 08/18/20 13:03 [facility] (Rec: 08/18/20 13:04 [facility] [id number]) OP-PT Subjective Patient Comments Patient Comments Fay reports she is having bone pain today from the sits bones. She was at cardiac rehab yesterday and the bike seat felt really hard PT-OP-F Manual Assessment Start: 01/28/20 11:22 Freq: Status: Active Protocol: Document 05/05/20 15:04 [facility] (Rec: 05/05/20 15:06 [facility] [id number]) Manual Assessments Soft Tissue Assessment Soft Tissue Mobility Assessment pt is showing some changes in calf and plantar flexion flexibility which is allowing her to progress her walking distance to 20 minutes PT-OP-J Posture/Palpation/Skin Start: 01/28/20 11:22 Freq: Status: Active Protocol: Document 01/28/20 11:15 [facility] (Rec: 02/02/20 12:33 [facility] [id number]) Palpation Assessment Location Two Palpation Location tibialis anterior Palpation Findings Soft Tissue Tightness Palpation Details scar tissue tightness throughout the muscle belly with limited ankle ROM into DF plantar fascia Palpation Location plantar fascia Palpation Findings Soft Tissue Tightness, Tenderness Palpation Details Very little flexibility from the plantar fascia due to tightness and limited ankle ROM One Palpation Location calf musculature B Palpation Findings Soft Tissue Tightness Palpation Details scar tissue noted throughout the muscular wall of the gastrocnemius and soleus musculature due to scleroderma PT-OP-K Range of Motion Start: 01/28/20 11:22 Freq: Status: Active Protocol: Document 10/15/20 15:04 [facility] (Rec: 05/05/20 15:06 [facility] [id number]) Ankle and Foot Goniometric Range of Motion Ankle and Foot Right Ankle/Foot ROM WFL No Testing Position Supine Dorsiflexion with Knee Flexed 8 Dorsiflexion with Knee Extended 4 Plantarflexion 8 Inversion 8 Eversion 8 Left Ankle/Foot ROM WFL No Testing Position Supine Dorsiflexion with Knee Flexed 10 Dorsiflexion with Knee Extended 5 Plantarflexion 8 Inversion 8 Eversion 8 PT-OP-M Strength Start: 01/28/20 11:22 Freq: Status: Active Protocol: Document 05/05/20 15:04 [facility] (Rec: 05/05/20 15:06 [facility] [email or web address]) Ankle/Foot Strength Ankle and Foot Manual Muscle Testing Right Dorsiflexion (L4) 3 Fair Plantarflexion (S1) 3 Fair Inversion 3 Fair Eversion (S1) 3 Fair Left Dorsiflexion (L4) 3 Fair Plantarflexion (S1) 3 Fair Inversion 3 Fair Eversion (S1) 3 Fair PT-OP-Q Treatments Start: 01/28/20 11:22 Freq: Status: Active Protocol: Document 08/18/20 17:37 [facility] (Rec: 08/18/20 17:40 [facility] [id number]) Manual Therapy Treatment Soft Tissue Mobilization B patellar tendon Body Location B Mobilization Type Cross-Friction Intensity/Depth Moderate Body Position Sitting Comments Long sitting Extra time spend over R patellar tendon to allow for elevation durign knee flexion. I can breath better. 1 Body Location B anterior and posterior shins /feet Mobilization Type Myofascial Release Intensity/Depth Superficial Body Position long sitting (rolled towel under B ischial tuberosities) Comments MFR was performed to B anterior and posterior shins and feet, PROM was performed at the ankles and feet Joint Mobilizations MTPs, intertarsals, calcaneus on talus/navicular Joint B Direction AP, med/lat Grade II Body Position Sitting Comments long sitting Manual Techniques 2 Type manual stretching for the gastroc/soleus complex Body Location B Body Position Sitting Comments long sitting 1 Type PROM stretches were performed at B ankles and feet, manual stretching Body Location B PF/ DF Body Position Sitting Comments improving ankle ROM with manual stretches PT-OP-R Modalities Start: 02/24/20 15:25 Freq: Status: Active Protocol: Document 03/25/20 13:46 [facility] (Rec: 03/29/20 11:58 [facility] [id number]) Hot Pack/Cold Pack Treatment Hot Pack Location R shld Patient Position Sitting Treatment Duration (minutes) 10 Patient Tolerance Good Comments decreased in discomfort anterior R shld end of tx. PT-OP-T Assessment and Plan Start: 01/28/20 11:22 Freq: Status: Active Protocol: Document 08/18/20 17:37 [facility] (Rec: 08/18/20 17:40 [facility] [id number]) Physical Therapy Assessment Assessment Summary Assessment Fay complains of a sore on her coccyx that seems worse today. She also has a wound on the greater trochanter that may be a decubitus ulcer. I advised her to show her MD and she may benefit from wound care referral Physical Therapy Plan Frequency and Duration Frequency of Treatment 2x/Week Duration of Treatment 8 Plan of Care Start Date 08/03/20 Plan of Care End Date 09/28/20 Next Visit Focus/Plan Next Note Type Treatment Note Next Visit Plan Pt has one visit left in PT, review home program and self massage for home. Manual therapy techniques
--- NOTE | 2020-08-23 17:19 | PT.OTN ---
Current Diagnoses Systemic sclerosis, unspecified (08/23/20) Physical Therapy Treatment Note PT-OP-A Visit Information Start: 01/28/20 11:22 Freq: Status: Active Protocol: Document 08/23/20 17:15 [facility] (Rec: 08/23/20 17:19 [facility] [id number]) Out-Patient Physical Therapy Visit Information Visit Information Visit Type Treatment Note Visit Start Time 15:15 Visit Stop Time 16:00 Total Visit Minutes 45 Visit Number 41 PT-OP-B Current Condition Start: 01/28/20 11:22 Freq: Status: Active Protocol: Document 01/28/20 11:26 [facility] (Rec: 01/28/20 11:40 [facility] [id number]) Current Condition History of Current Condition Onset Date Pt has a chronic hx of scleroderma, recent flare after a [place] July 08 Current Complaints painful ROM LE especially the ankles/feet,painful gait, decreased balance History of Current Condition Pt has a hisotry of scleroderma that affects her LE. This makes her legs so tight she has lost ROM in her ankles. She reports pain with walking, decresased balance and poor energy. She has been seen in PT years ago for help reducing tightness in her legs. She notes that symptms increased following a myocardial infacrtion in June of 2019. Fay reports for days before her heart attack she was having a buring pain in her chest, she was taken to the ER at [facility] and then sent to [facility]. She was transfered from [facility] to [facility] in [place]. She had 2 stents put in and then had a GI bleed. When she returned home and for awhile ( a week or two) she felt increased energy. But then it went away. Has new symptoms of psorasis and reports her legs feel very bound. Taking Consentyx the injection for Psorasis. The scleroderma in her feet and legs feels worse. She hasn't had treatment in so many years for her legs. She is taking blood thinners. SHe had been doing cardiac rehab and doing really good but had to stop due to covid 19 pandemic. She hasn't been walking as much as she had before and she reports 15-20 minutes is her walking max. Past medical history includes hx of cancer, depression, type II diabetes, dizzyness, memory loss, neuropathy, thyroid disorder, psychological disorder Treatment Goals Patient/Caregiver Goals pt reports she would like to get to 35-40 minutes of walking, other goals include balance training, strengthening, and loosening her leg muscles. Prior Functional Status Baseline Function- ADL's Independent Baseline Function- Mobility Independent Current Functional Impairments (Reported) Functional Limitations- Mobility/Gait Because of the tightness her balance is off and she feels really off balance. Standing hurts due to the leg tightnes. She notes both her feet and legs have increased pain after 10 minutes of static standing . She uses a cane for outdoor ambulation. Functional Limitations- Recreation/ limited recreational Hobbies activities due to decreased endurance and pain in her legs with activity PT-OP-C Subjective Start: 01/28/20 11:22 Freq: Status: Active Protocol: Document 08/23/20 17:15 [facility] (Rec: 08/23/20 17:19 [facility] [id number]) OP-PT Subjective Patient Comments Patient Comments Fay reports therapy ahs helped her overall and she has been able to increase her distance on the treadmill. She is also wanting to start trying her stair stepper at home now. PT-OP-F Manual Assessment Start: 01/28/20 11:22 Freq: Status: Active Protocol: Document 05/05/20 15:04 [facility] (Rec: 05/05/20 15:06 [facility] [id number]) Manual Assessments Soft Tissue Assessment Soft Tissue Mobility Assessment pt is showing some changes in calf and plantar flexion flexibility which is allowing her to progress her walking distance to 20 minutes PT-OP-J Posture/Palpation/Skin Start: 01/28/20 11:22 Freq: Status: Active Protocol: Document 01/28/20 11:15 [facility] (Rec: 02/02/20 12:33 [facility] [id number]) Palpation Assessment Location Two Palpation Location tibialis anterior Palpation Findings Soft Tissue Tightness Palpation Details scar tissue tightness throughout the muscle belly with limited ankle ROM into DF plantar fascia Palpation Location plantar fascia Palpation Findings Soft Tissue Tightness, Tenderness Palpation Details Very little flexibility from the plantar fascia due to tightness and limited ankle ROM One Palpation Location calf musculature B Palpation Findings Soft Tissue Tightness Palpation Details scar tissue noted throughout the muscular wall of the gastrocnemius and soleus musculature due to scleroderma PT-OP-K Range of Motion Start: 01/28/20 11:22 Freq: Status: Active Protocol: Document 05/05/20 15:04 [facility] (Rec: 05/05/20 15:06 [facility] [id number]) Ankle and Foot Goniometric Range of Motion Ankle and Foot Right Ankle/Foot ROM WFL No Testing Position Supine Dorsiflexion with Knee Flexed 8 Dorsiflexion with Knee Extended 4 Plantarflexion 8 Inversion 8 Eversion 8 Left Ankle/Foot ROM WFL No Testing Position Supine Dorsiflexion with Knee Flexed 10 Dorsiflexion with Knee Extended 5 Plantarflexion 8 Inversion 8 Eversion 8 PT-OP-M Strength Start: 01/28/20 11:22 Freq: Status: Active Protocol: Document 05/05/20 15:04 [facility] (Rec: 05/05/20 15:06 [facility] [id number]) Ankle/Foot Strength Ankle and Foot Manual Muscle Testing Right Dorsiflexion (L4) 3 Fair Plantarflexion (S1) 3 Fair Inversion 3 Fair Eversion (S1) 3 Fair Left Dorsiflexion (L4) 3 Fair Plantarflexion (S1) 3 Fair Inversion 3 Fair Eversion (S1) 3 Fair PT-OP-Q Treatments Start: 01/28/20 11:22 Freq: Status: Active Protocol: Document 08/23/20 17:15 [facility] (Rec: 08/23/20 17:19 [facility] [email or web address]) Manual Therapy Treatment Soft Tissue Mobilization B patellar tendon Body Location B Mobilization Type Cross-Friction Intensity/Depth Moderate Body Position Sitting Comments Long sitting Extra time spend over R patellar tendon to allow for elevation durign knee flexion. I can breath better. Joint Mobilizations MTPs, intertarsals, calcaneus on talus/navicular Joint B Direction AP, med/lat Grade II Body Position Sitting Comments long sitting Manual Techniques 2 Type manual stretching for the gastroc/soleus complex Body Location B Body Position Sitting Comments long sitting 1 Type PROM stretches were performed at B ankles and feet, manual stretching Body Location B PF/ DF Body Position Sitting Comments improving ankle ROM with manual stretches PT-OP-R Modalities Start: 02/24/20 15:25 Freq: Status: Active Protocol: Document 03/25/20 13:46 [facility] (Rec: 03/29/20 11:58 [facility] [id number]) Hot Pack/Cold Pack Treatment Hot Pack Location R shld Patient Position Sitting Treatment Duration (minutes) 10 Patient Tolerance Good Comments decreased in discomfort anterior R shld end of tx. PT-OP-T Assessment and Plan Start: 01/28/20 11:22 Freq: Status: Active Protocol: Document 08/23/20 17:15 [facility] (Rec: 08/23/20 17:19 [facility] [id number]) Physical Therapy Assessment Assessment Summary Assessment Fay has done really well with PT. SHe has been able to do cardiac rehab and walk on the treadmill with improved ankle ROM. At this time she will be discharged from PT to a [facility] Physical Therapy Plan Frequency and Duration Frequency of Treatment 2x/Week Duration of Treatment 8 Plan of Care Start Date 08/03/20 Plan of Care End Date 09/28/20 Discharge Physical Therapy Discharge Reasons Plateau in Progress
--- NOTE | 2020-11-02 10:17 | PT.OPDS ---
Current Diagnoses Systemic sclerosis, unspecified (08/23/20) Visit Care Team Role Provider Type Timur Schwartz MD Primary Care Provider Physician Specialty: Internal Medicine Address: [address] [place] [address], [id number] Email: [email or web address] [facility] Gage Palomares DO Attending Provider Non-Staff Referring Provider Specialty: Dermatology Address: [id number], [place], [address] Email: Visit Number Visit Number [id number] Discharge Summary PT-OP-B Current Condition Start: 01/28/20 11:22 Freq: Status: Active Protocol: Document 01/28/20 11:26 [facility] (Rec: 01/28/20 11:40 [facility] [id number]) Current Condition History of Current Condition Onset Date Pt has a chronic hx of scleroderma, recent flare after a VT July 08 Current Complaints painful ROM LE especially the ankles/feet,painful gait, decreased balance History of Current Condition Pt has a hisotry of scleroderma that affects her LE. This makes her legs so tight she has lost ROM in her ankles. She reports pain with walking, decresased balance and poor energy. She has been seen in PT years ago for help reducing tightness in her legs. She notes that symptms increased following a myocardial infacrtion in June of 2019. Fay reports for days before her heart attack she was having a buring pain in her chest, she was taken to the ER at [facility] and then sent to [facility]. She was transfered from [facility] to [facility] in [place]. She had 2 stents put in and then had a GI bleed. When she returned home and for awhile ( a week or two) she felt increased energy. But then it went away. Has new symptoms of psorasis and reports her legs feel very bound. Taking Consentyx the injection for Psorasis. The scleroderma in her feet and legs feels worse. She hasn't had treatment in so many years for her legs. She is taking blood thinners. SHe had been doing cardiac rehab and doing really good but had to stop due to covid 19 pandemic. She hasn't been walking as much as she had before and she reports 15-20 minutes is her walking max. Past medical history includes hx of cancer, depression, type II diabetes, dizzyness, memory loss, neuropathy, thyroid disorder, psychological disorder Treatment Goals Patient/Caregiver Goals pt reports she would like to get to 35-40 minutes of walking, other goals include balance training, strengthening, and loosening her leg muscles. Prior Functional Status Baseline Function- ADL's Independent Baseline Function- Mobility Independent Current Functional Impairments (Reported) Functional Limitations- Mobility/Gait Because of the tightness her balance is off and she feels really off balance. Standing hurts due to the leg tightnes. She notes both her feet and legs have increased pain after 10 minutes of static standing . She uses a cane for outdoor ambulation. Functional Limitations- Recreation/ limited recreational Hobbies activities due to decreased endurance and pain in her legs with activity PT-OP-C Subjective Start: 01/28/20 11:22 Freq: Status: Active Protocol: Document 08/23/20 17:15 [facility] (Rec: 08/23/20 17:19 [facility] [id number]) OP-PT Subjective Patient Comments Patient Comments Fay reports therapy ahs helped her overall and she has been able to increase her distance on the treadmill. She is also wanting to start trying her stair stepper at home now. PT-OP-F Manual Assessment Start: 01/28/20 11:22 Freq: Status: Active Protocol: Document 05/05/20 15:04 [facility] (Rec: 05/05/20 15:06 [facility] [id number]) Manual Assessments Soft Tissue Assessment Soft Tissue Mobility Assessment pt is showing some changes in calf and plantar flexion flexibility which is allowing her to progress her walking distance to 20 minutes PT-OP-J Posture/Palpation/Skin Start: 01/28/20 11:22 Freq: Status: Active Protocol: Document 01/28/20 11:15 [facility] (Rec: 02/02/20 12:33 [facility] [id number]) Palpation Assessment Location Two Palpation Location tibialis anterior Palpation Findings Soft Tissue Tightness Palpation Details scar tissue tightness throughout the muscle belly with limited ankle ROM into DF plantar fascia Palpation Location plantar fascia Palpation Findings Soft Tissue Tightness, Tenderness Palpation Details Very little flexibility from the plantar fascia due to tightness and limited ankle ROM One Palpation Location calf musculature B Palpation Findings Soft Tissue Tightness Palpation Details scar tissue noted throughout the muscular wall of the gastrocnemius and soleus musculature due to scleroderma PT-OP-K Range of Motion Start: 01/28/20 11:22 Freq: Status: Active Protocol: Document 05/05/20 15:04 [facility] (Rec: 05/05/20 15:06 [facility] [id number]) Ankle and Foot Goniometric Range of Motion Ankle and Foot Right Ankle/Foot ROM WFL No Testing Position Supine Dorsiflexion with Knee Flexed 8 Dorsiflexion with Knee Extended 4 Plantarflexion 8 Inversion 8 Eversion 8 Left Ankle/Foot ROM WFL No Testing Position Supine Dorsiflexion with Knee Flexed 10 Dorsiflexion with Knee Extended 5 Plantarflexion 8 Inversion 8 Eversion 8 PT-OP-M Strength Start: 01/28/20 11:22 Freq: Status: Active Protocol: Document 05/05/20 15:04 [facility] (Rec: 05/05/20 15:06 [facility] [id number]) Ankle/Foot Strength Ankle and Foot Manual Muscle Testing Right Dorsiflexion (L4) 3 Fair Plantarflexion (S1) 3 Fair Inversion 3 Fair Eversion (S1) 3 Fair Left Dorsiflexion (L4) 3 Fair Plantarflexion (S1) 3 Fair Inversion 3 Fair Eversion (S1) 3 Fair PT-OP-T Assessment and Plan Start: 01/28/20 11:22 Freq: Status: Active Protocol: Document 08/23/20 17:15 [facility] (Rec: 08/23/20 17:19 [facility] [id number]) Physical Therapy Assessment Assessment Summary Assessment Fay has done really well with PT. SHe has been able to do cardiac rehab and walk on the treadmill with improved ankle ROM. At this time she will be discharged from PT to a [facility] Physical Therapy Plan Frequency and Duration Frequency of Treatment 2x/Week Duration of Treatment 8 Plan of Care Start Date 08/03/20 Plan of Care End Date 09/28/20 Discharge Physical Therapy Discharge Reasons Plateau in Progress
== END 2020-11-23 10:59 | disposition home or self-care (01) ==
LOC: PHYS 15:15
PROVIDERS: PCP Internal Medicine; Referring Provider Dermatology; Visit Provider Dermatology
DX: M34.9 Systemic sclerosis, unspecified (principal)
CPT/HCPCS: 97010; 97110; 97112; 97140; 97161

== ENCOUNTER → 2020-08-25 15:23 | Outpatient (CLI) | payer MEDICARE, MEDICAID, SELFPAY ==
[2020-06-22 10:32] VITALS: BMI 24.5
[2020-08-25 16:34] LABS: Add Manual Diff / Slide Review NO; Basophils Absolute Auto 100 /uL (0-100); Basophils Percent Auto 1.3 % (0-2); Eosinophils Absolute Auto 200 /uL (0-450); Eosinophils Percent Auto 4.2 % (2-4); Hematocrit 36.9 % (36-46); Lymphocytes Absolute Auto 500 /uL (1100-4500); Mean Corpuscular HGB Conc 32.5 % (30-36); Mean Corpuscular Hemoglobin 26.5 PG (26-34); Mean Corpuscular Volume 81.5 fL (80-100); Monocytes Absolute Auto 600 /uL (0-900); Monocytes Percent Auto 11.4 % (3-14); Neutrophils Absolute Auto 3900 /uL (1500-7000); Neutrophils Percent Auto 74.1 % (50-75); Platelet Count 76 X10^3/uL (150-400); Red Blood Cell Count 4.52 X10^6/uL (4.0-5.2); Red Cell Distribution Width 25.3 % (11.6-14.8); White Blood Cell Count 5.3 X10^3/uL (4.5-11.0)
[2020-08-25 17:18] LABS: Anisocytosis 3+
[2020-08-25 17:19] LABS: Microcytosis 1+
== END ==
PROVIDERS: PCP Internal Medicine; Referring Provider Internal Medicine; Visit Provider Internal Medicine
DX: D64.9 Anemia, unspecified (principal)
CPT/HCPCS: 36415; 85025

== ENCOUNTER 2020-09-07 14:00 | Outpatient (RCR) | payer MEDICARE, MEDICAID, SELFPAY ==
[2020-04-29 21:49] VITALS: BMI 24.5
== END 2020-09-07 14:51 ==
LOC: CAR 14:00
PROVIDERS: PCP Internal Medicine; Referring Provider Internal Medicine; Visit Provider Internal Medicine
DX: Z95.5 Presence of coronary angioplasty implant and graft (principal)
CPT/HCPCS: 93798

== ENCOUNTER → 2020-09-09 15:04 | Outpatient (CLI) | payer MEDICARE, MEDICAID, SELFPAY ==
[2020-06-22 10:32] VITALS: BMI 24.5
--- NOTE | 2020-09-09 15:06 | DI.US.S_ITS ---
PROCEDURE: US CAROTID DOPPLER BI INDICATIONS: OCCLUSION AND STENOSIS OF BILATERAL CAROTID ARTERIES TECHNIQUE: Color and pulse Doppler interrogation was performed of both carotid systems, with image documentation and velocity measurements. COMPARISON: None. FINDINGS: Stenosis calculations are based on SRU (Society of Radiologists in Ultrasound) criteria. Right side: Brachial blood pressure: 104/65 mm Hg. Common carotid artery peak systolic velocity: 211 cm/sec. Internal carotid artery peak systolic velocity: 271 cm/sec. Internal carotid artery end diastolic velocity: 68 cm/sec. External carotid artery peak systolic velocity: 141 cm/sec. ICA/CCA peak systolic ratio: 1.3. Mondragon scale imaging description: Dense, calcified atherosclerotic plaque Percent internal carotid artery stenosis: High-grade greater than 90% stenosis to occlusion. Vertebral artery: Flow direction is antegrade. Left side: Brachial blood pressure: Not evaluated Common carotid artery peak systolic velocity: 120 cm/sec. Internal carotid artery peak systolic velocity: 244 cm/sec. Internal carotid artery end diastolic velocity: 52 cm/sec. External carotid artery peak systolic velocity: 177 cm/sec. ICA/CCA peak systolic ratio: 2.0. Mondragon scale imaging description: Dense calcified atherosclerotic plaque Percent internal carotid artery stenosis: High-grade greater than 90% stenosis to occlusion. Vertebral artery: Flow direction is antegrade. IMPRESSION: Dense atherosclerotic calcification causes high-grade, greater than 90% stenosis to occlusion of the origins of the internal carotid arteries bilaterally. Recommend CT angiogram of the neck for more accurate assessment of high-grade stenosis versus occlusion. Dictated by: Radha Branham MD, PhD on 09/09/2020 at 21:49 Approved by: Radha Branham MD, PhD on 09/13/2020 at 10:27
== END ==
PROVIDERS: PCP Internal Medicine; Referring Provider Internal Medicine; Visit Provider Internal Medicine
DX: I65.23 Occlusion and stenosis of bilateral carotid arteries (principal)
CPT/HCPCS: 93880

== ENCOUNTER 2020-09-16 18:35 | Emergency (ER) | payer MEDICARE, MEDICAID, SELFPAY ==
[2020-06-22 10:32] VITALS: BMI 24.5
[2020-09-16] VITALS (13 sets, daily range): BP systolic 108–120; BP diastolic 56–67; PULSE 64–80; RESP 17–32; TEMP 37.2; O2SAT 98–100
--- NOTE | 2020-09-16 18:45 | DI.RAD.S_ITS ---
PROCEDURE: XR CHEST 1V INDICATIONS: chest pain TECHNIQUE: One view of the chest was acquired. COMPARISON: [facility], [facility], XR CHEST 1V, 06/03/2020, 18:03. FINDINGS: Surgical changes and devices: Overlying monitoring leads. Lungs and pleura: Lungs demonstrate chronic bibasilar atelectatic changes. No acute consolidations. There is slight asymmetric elevation of the right hemidiaphragm, chronic. No pleural effusions or pneumothorax. Mediastinum: Mediastinal contours appear normal. Heart size is normal. Bones and chest wall: No suspicious bony lesions. Overlying soft tissues appear unremarkable. IMPRESSION: 1. No acute cardiopulmonary disease. Dictated by: Livier Barrett M.D. on 09/16/2020 at 19:03 Approved by: Livier Barrett M.D. on 09/16/2020 at 19:04
[2020-09-16 18:54] LABS: Prothrombin Time 11.3 SECONDS (10.1-12.7)
[2020-09-16 18:57] LABS: Alanine Aminotransferase 21 IU/L (<35); Albumin 4.3 g/dL (3.5-5.0); Alkaline Phosphatase 149 U/L (38-126); Aspartate Aminotransferase 59 IU/L (14-36); BUN Creatinine Ratio 29.9 (6-22); Bilirubin Total 0.7 mg/dL (0.2-1.3); Blood Urea Nitrogen 29 mg/dL (7-17); Calcium 9.7 mg/dL (8.4-10.2); Carbon Dioxide 32 mmol/L (22-32); Chloride 102 mmol/L (98-107); Creatine Kinase 48 U/L (30-135); Estimated Glomerular Filt Rate 57.5 mL/min (>60); Globulin 4.2 g/dL (1.7-4.1); Glucose 186 mg/dL (80-110); HEMOLYSIS 20 (0-50); Lipase 259 U/L (23-300); PTT Partial Thromboplastin Tim 32 SECONDS (26.4-36.2); Potassium 4.6 mmol/L (3.4-5.1); Sodium 138 mmol/L (137-145); Total Protein 8.5 g/dL (6.3-8.2)
--- NOTE | 2020-09-16 19:04 | PC.NURSE ---
Patient taking own home meds at this time.
--- NOTE | 2020-09-16 19:04 | PC.NURSE ---
Patient reports anxiety, requesting anxiety meds. Dr. Simon informed.
[2020-09-16 19:08] LABS: Troponin I < 0.012 ng/mL (0.01-0.034)
[2020-09-16 19:10] LABS: Add Manual Diff / Slide Review NO; Basophils Absolute Auto 100 /uL (0-100); Basophils Percent Auto 1.4 % (0-2); Eosinophils Absolute Auto 200 /uL (0-450); Eosinophils Percent Auto 3.7 % (2-4); Hematocrit 39.3 % (36-46); Hemoglobin 12.7 g/dL (12.0-16.0); Lymphocytes Absolute Auto 500 /uL (1100-4500); Lymphocytes Percent Auto 9.7 % (25-40); Mean Corpuscular HGB Conc 32.3 % (30-36); Mean Corpuscular Hemoglobin 26.4 PG (26-34); Mean Corpuscular Volume 81.7 fL (80-100); Monocytes Absolute Auto 700 /uL (0-900); Monocytes Percent Auto 13.1 % (3-14); Neutrophils Absolute Auto 3700 /uL (1500-7000); Neutrophils Percent Auto 72.1 % (50-75); Platelet Count 81 X10^3/uL (150-400); Red Blood Cell Count 4.81 X10^6/uL (4.0-5.2); Red Cell Distribution Width 22.6 % (11.6-14.8); White Blood Cell Count 5.1 X10^3/uL (4.5-11.0)
[2020-09-16 19:21] LABS: COVID19 -Nasal RAPID Negative (Negative)
[2020-09-16 19:30] LABS: Anisocytosis 1+; Microcytosis 2+
[2020-09-16 21:01] LABS: Troponin I < 0.012 ng/mL (0.01-0.034)
--- NOTE | 2020-09-16 22:30 | ED_ITS ---
HPI - Chest Pain General Chief Complaint: Chest Pain Stated Complaint: Chest Pain Time Seen by Provider: 09/16/20 22:30 Source: patient and EMS Mode of arrival: Ambulatory Limitations: no limitations History of Present Illness HPI narrative: This is a 65-year-old female who comes in with approximately 24 hours of chest pain patient states it is a burning sensation that started in her back, radiates her stomach and then her chest. She states this feels similar to when she had a heart attack about a year ago in June of 2019. Patient states at that time she had similar symptoms for several days. Patient denies any diaphoresis she denies any shortness of breath, she denies any fever. She has had some mild chills. No cold, cough or congestion. She denies any nausea or vomiting today but did have some nausea yesterday. She denies any swelling in her extremities. Patient states that she had stents placed a year ago. 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 She also has diabetes, cirrhosis, sclera edema mainly in her extremities, hypertension and dyslipidemia. Takes an aspirin 81 mg, Plavix daily and atorvastatin. She was told that her carotids were 90% blocked on a recent ultrasound with her last primary care physician. She sees Dr. Schwartz for primary care and Dr. Lopez for Cardiology. Patient describes he r chest pain at a 4/10, she took 324 mg aspirin at home as per 911 recommendations. She did receive a nitro sublingual she is unsure if it made any change but it did resolve and is currently present. Related Data Home Medications Medication Instructions Recorded Confirmed levothyroxine 25 mcg PO DAILY #0 07/17/11 07/27/20 cinacalcet [Sensipar] 30 mg PO DAILY #0 12/16/16 07/27/20 rifaximin 550 mg tablet 550 mg PO BID 30 Days #60 tab 06/25/18 07/27/20 albuterol sulfate [Ventolin HFA] 2 puff INHALATION Q6HR PRN 07/06/19 07/27/20 aspirin 81 mg tablet,delayed 81 mg PO DAILY 08/12/19 07/27/20 release clopidogrel 75 mg tablet 75 mg PO DAILY 08/12/19 07/27/20 insulin aspart U-100 100 unit/mL 20 unit SUBCUT TID ml 08/12/19 07/21/20 (3 mL) subcutaneous pen metoprolol succinate 25 mg 25 mg PO DAILY 08/12/19 07/27/20 tablet,extended release 24 hr nitroglycerin 0.4 mg sublingual 0.4 mg SL PRN PRN tab 08/12/19 07/21/20 tablet pantoprazole 40 mg tablet,delayed 40 mg PO DAILY 08/12/19 07/27/20 release secukinumab 150 mg/mL subcutaneous 150 mg SUBCUT .QMonthly ml 08/12/19 07/27/20 pen injector spironolactone 25 mg tablet 50 mg PO DAILY #0 tab 08/12/19 07/27/20 atorvastatin 40 mg tablet 80 mg PO BEDTIME tab 01/20/20 07/27/20 insulin regular hum U-500 conc 35 unit SUBCUT TID ml 01/20/20 07/27/20 Previous Rx's Medication Instructions Recorded desvenlafaxine 50 mg 50 mg PO DAILY #30 tab 08/31/20 tablet,extended release 24 hr Allergies Allergy/AdvReac Type Severity Reaction Status Date / Time hydrocodone Allergy ITCHING Verified 09/16/20 21:22 oxycodone Allergy ITCHING Verified 09/16/20 21:22 propofol AdvReac Unknown Verified 09/16/20 21:22 morphine AdvReac Vomiting Verified 09/16/20 21:22 Review of Systems Review of Systems ROS Unobtainable: All systems reviewed & are unremarkable except as noted in HPI and below Patient History Medical History AML (acute myeloid leukemia) in remission Cirrhosis Depression Generalized anxiety disorder Hepatic encephalopathy History of ST elevation myocardial infarction (STEMI) History of upper gastrointestinal bleeding Insulin dependent diabetes mellitus Obsessive compulsive disorder Psoriasis Restrictive lung disease Scleroderma Thrombocytopenia Surgical History History of bone marrow transplant History of colonoscopy History of coronary artery stent placement Family History Father Heart disease S/P CABG x 4 Hypertension Mother Gallstones Brother No significant medical problems Sister Diabetes mellitus Social History marital status: unknown household members: none Smoking Status: Never smoker alcohol intake: former substance use type: does not use Smoking Status: Never smoker alcohol intake frequency: 0-2 drinks per day Substance Use Type: does not use Exam Narrative Exam Narrative: GENERAL: Alert and oriented x three, well-nourished female in mild distress. HEENT: Head normocephalic, atraumatic, EOMI, pupils reactive, face symmetric, moist mucous membranes NECK: Supple, full range of motion CARDIOVASCULAR: Regular rate and rhythm without murmurs, rubs or gallops. Non reproducible chest pain. RESPIRATORY: Breath sounds equal bilaterally, no wheezes rales or rhonchi. ABDOMEN: Soft, nontender. Normoactive bowel sounds all 4 quadrants. No guarding or rebound, rigidity, no mass : No CVA tenderness EXTREMITIES: Normal range of motion, no clubbing or edema. Neurovascularly intact NEUROLOGICAL: Cranial nerves II through XII grossly intact. Moving all extremities SKIN: Warm, dry, no petechiae, patient does have some scaly, patchy lesions on her extremities consistent with history of psoriasis. Initial Vital Signs Initial Vital Signs: Vital Signs Temperature 98.9 F 09/16/20 18:41 Pulse Rate 78 09/16/20 18:41 Respiratory Rate 17 09/16/20 18:41 Blood Pressure 117/62 09/16/20 18:41 Pulse Oximetry 100 09/16/20 18:41 Course Orders Ordered: ED Orders 09/16/20 20:30 Trop I [Troponin I] Stat 09/16/20 20:49 EKG-12 Lead Stat Discontinued Medications Aspirin (Aspirin 81 Mg Chew Tab) 324 mg PO NOW ONE Stop: 09/16/20 18:46 Last Admin: 09/16/20 19:05 Dose: Not Given Documented by: KELLIE Al Hydrox/Mg Hydrox/Simethicone 20 ml/ Lidocaine HCl 15 ml 0 ml PO NOW ONE Stop: 09/16/20 22:55 Last Admin: 09/16/20 23:18 Dose: 35 ml Documented by: EFREN Vital Signs Vital signs: Vital Signs - 8 hr 09/16/20 20:30 09/16/20 21:00 09/16/20 21:30 Pulse Rate 69 75 74 Respiratory Rate 21 30 H 26 H Blood Pressure Pulse Oximetry 100 98 99 09/16/20 21:52 09/16/20 22:00 09/16/20 22:30 Pulse Rate 72 75 80 Respiratory Rate 25 H 27 H 21 Blood Pressure 120/59 L Pulse Oximetry 99 99 09/16/20 23:00 09/16/20 23:21 Pulse Rate 75 79 Respiratory Rate 18 22 Blood Pressure 117/67 Pulse Oximetry 99 98 MDM - Chest Pain Lab Data Attestation: I reviewed the patient's lab results. Result diagrams: 09/16/20 18:35 09/16/20 18:35 Labs: Lab Results 09/16/20 09/16/20 09/16/20 Range/Units 18:35 18:35 18:35 WBC 5.1 (4.5-11.0) X10^3/uL RBC 4.81 (4.0-5.2) X10^6/uL Hgb 12.7 (12.0-16.0) g/dL Hct 39.3 (36-46) % MCV 81.7 (80-100) fL MCH 26.4 (26-34) PG MCHC 32.3 (30-36) % RDW 22.6 H (11.6-14.8) % Plt Count 81 L (150-400) X10^3/uL Neut % (Auto) 72.1 (50-75) % Lymph % (Auto) 9.7 L (25-40) % Schleicher % (Auto) 13.1 (3-14) % Eos % (Auto) 3.7 (2-4) % Baso % (Auto) 1.4 (0-2) % Neut # (Auto) 3700 (4954-9660) /uL Lymph # (Auto) 500 L (3586-1707) /uL Schleicher # (Auto) 700 (0-900) /uL Eos # (Auto) 200 (0-450) /uL Baso # (Auto) 100 (0-100) /uL RBC Morphology Not Reportable Anisocytosis 1+ H Microcytosis 2+ H PT 11.3 (10.1-12.7) SECONDS INR 1.0 (0.9-1.3) APTT 32 (26.4-36.2) SECONDS Sodium 138 (137-145) mmol/L Potassium 4.6 (3.4-5.1) mmol/L Chloride 102 (98-107) mmol/L Carbon Dioxide 32 (22-32) mmol/L BUN 29 H (7-17) mg/dL Creatinine 0.97 (0.52-1.04) mg/dL Estimated GFR 57.5 L (>60) mL/min BUN/Creatinine Ratio 29.9 H (6-22) Glucose 186 H (80-110) mg/dL Calcium 9.7 (8.4-10.2) mg/dL Total Bilirubin 0.7 (0.2-1.3) mg/dL AST 59 H (14-36) IU/L ALT 21 (<35) IU/L Alkaline Phosphatase 149 H (38-126) U/L Total Creatine Kinase 48 (30-135) U/L CK-MB (CK-2) TNP CK-MB (CK-2) Rel Index TNP Troponin I < 0.012 (0.01-0.034) ng/mL Total Protein 8.5 H (6.3-8.2) g/dL Albumin 4.3 (3.5-5.0) g/dL Globulin 4.2 H (1.7-4.1) g/dL Albumin/Globulin Ratio 1.0 (1.0-2.8) Lipase 259 (23-300) U/L SARS-CoV-2 (PCR) (Negative) 09/16/20 09/16/20 Range/Units 19:05 20:30 WBC (4.5-11.0) X10^3/uL RBC (4.0-5.2) X10^6/uL Hgb (12.0-16.0) g/dL Hct (36-46) % MCV (80-100) fL MCH (26-34) PG MCHC (30-36) % RDW (11.6-14.8) % Plt Count (150-400) X10^3/uL Neut % (Auto) (50-75) % Lymph % (Auto) (25-40) % Schleicher % (Auto) (3-14) % Eos % (Auto) (2-4) % Baso % (Auto) (0-2) % Neut # (Auto) (9382-9032) /uL Lymph # (Auto) (6378-8167) /uL Schleicher # (Auto) (0-900) /uL Eos # (Auto) (0-450) /uL Baso # (Auto) (0-100) /uL RBC Morphology Anisocytosis Microcytosis PT (10.1-12.7) SECONDS INR (0.9-1.3) APTT (26.4-36.2) SECONDS Sodium (137-145) mmol/L Potassium (3.4-5.1) mmol/L Chloride (98-107) mmol/L Carbon Dioxide (22-32) mmol/L BUN (7-17) mg/dL Creatinine (0.52-1.04) mg/dL Estimated GFR (>60) mL/min BUN/Creatinine Ratio (6-22) Glucose (80-110) mg/dL Calcium (8.4-10.2) mg/dL Total Bilirubin (0.2-1.3) mg/dL AST (14-36) IU/L ALT (<35) IU/L Alkaline Phosphatase (38-126) U/L Total Creatine Kinase (30-135) U/L CK-MB (CK-2) CK-MB (CK-2) Rel Index Troponin I < 0.012 (0.01-0.034) ng/mL Total Protein (6.3-8.2) g/dL Albumin (3.5-5.0) g/dL Globulin (1.7-4.1) g/dL Albumin/Globulin Ratio (1.0-2.8) Lipase (23-300) U/L SARS-CoV-2 (PCR) Negative (Negative) Imaging Data Chest x-ray: Radiologist's Impression: [address] [id number] ReportSigned Patient: Marianela Valdez#: [id number]: 4Acct:[id number]/Sex: 65 / FDate of Service: 09/16/20Loc: EDAccession Number: [id number] Procedure: XR chest 1V Ordering Provider: Emily Simon D.O. PROCEDURE: XR CHEST 1V INDICATIONS: chest pain TECHNIQUE: One view of the chest was acquired. COMPARISON: [facility], , XR CHEST 1V, 06/03/2020, 18:03. FINDINGS: Surgical changes and devices: Overlying monitoring leads. Lungs and pleura: Lungs demonstrate chronic bibasilar atelectatic changes. No acute consolidations. There is slight asymmetric elevation of the right hemidi aphragm, chronic. No pleural effusions or pneumothorax. Mediastinum: Mediastinal contours appear normal. Heart size is normal. Bones and chest wall: No suspicious bony lesions. Overlying soft tissues appear unremarkable. IMPRESSION: 1. No acute cardiopulmonary disease. Dictated by: Livier Barrett M.D. on 09/16/2020 at 19:03 Approved by: Livier Barrett M.D. on 09/16/2020 at 19:04 ECG Data Attestation: I personally reviewed and interpreted this ECG as follows: Prior ECG tracings: available for review Interpretation: Sinus rhythm rate of 79 IN 144 QRS 82 and QTC of 444. Patient has RSR in 3 and AVF, patient also has are in aVL. Patient has prior EKG from 06/03/2020 which appears similar to today's. EKG 2. Shows normal sinus rhythm with sinus arrhythmia. Rate of 72 IN 144 QRS 82 and QTC of 433. Patient's ST segments appear similar to prior EKG from today with no new changes appreciated MDM Narrative Medical decision making narrative: This is a 65-year-old female comes in with complaint of burning in her chest that started her back and radiated to her chest in front. Patient states this feels similar to heart attack a year ago she had stents placed at that time. She continues to take her medications regularly. Patient symptoms have been present for approximately 24 hours, she has negative troponin and repeat troponin at 2:00 a.m. was negative. Her EKG has changes but do not appear to be new in comparison to her prior EKGs. Discussed with patient I recommended observation even though her troponin is negative we cannot rule out possible angina. Patient does not wish to be kept overnight she does understand the risks. We discussed that even the her troponins that she could have angina and further workup does seem to be appropriate based on her prior history. Discharge Plan Departure Patient Disposition: Home Clinical Impression: Chest pain Instructions: DI for Chest Pain Activity Restrictions/Additional Instructions: Follow up with your manufacturing quality inspector, call for an appointment on Saturday. Is recommended that you stay for observation although this may require transfer as we do not have stress testing on the weekends. Continue your home medications as prescribed. Return to the ER if you are having new worsening symptoms, persistent chest pain or pressure, persistent vomiting, diaphoresis or sweating, lightheadedness or passing out, worsening shortness of breath, swelling in your extremities or other new or concerning symptoms. Prescriptions: No Action rifaximin 550 mg tablet 550 mg PO BID 30 Days Qty: 60 RF: 0 levothyroxine 50 mcg Tablet 25 mcg PO DAILY Qty: 0 RF: 0 cinacalcet [Sensipar] 30 MG tablet 30 mg PO DAILY Qty: 0 RF: 0 aspirin 81 mg tablet,delayed release (DR/EC) 81 mg PO DAILY RF: 0 clopidogrel 75 mg tablet 75 mg PO DAILY RF: 0 metoprolol succinate 25 mg tablet extended release 24 hr 25 mg PO DAILY RF: 0 nitroglycerin 0.4 mg tablet, sublingual 0.4 mg SL PRN PRN (Reason: chest pain) RF: 0 pantoprazole 40 mg tablet,delayed release (DR/EC) 40 mg PO DAILY RF: 0 Cosentyx Pen 150 mg/mL pen injector 150 mg SUBCUT .QMonthly RF: 0 spironolactone 25 mg tablet 50 mg PO DAILY Qty: 0 RF: 0 insulin aspart U-100 100 unit/mL (3 mL) insulin pen 20 unit SUBCUT TID RF: 0 atorvastatin 40 mg tablet 80 mg PO BEDTIME RF: 0 Humulin R U-500 (Conc) Kwikpen 500 unit/mL (3 mL) insulin pen 35 unit subcut TID RF: 0 desvenlafaxine 50 mg tablet extended release 24 hr 50 mg PO DAILY Qty: 30 RF: 1 albuterol sulfate [Ventolin HFA] 90 mcg/actuation HFA aerosol inhaler 2 puff INHALATION Q6HR PRN (Reason: Shortness Of Breath Or Wheezing) RF: 0 Referrals: Timur Schwartz MD [Primary Care Provider] -
[2020-09-16] MEDS: MAG HYDROX/ALUMINUM/SIMETH SUS 20 ML, LIDOCAINE VISCOUS 2% 15 ML PO (23:18)
== END 2020-09-16 23:40 | disposition home or self-care (01) ==
PROVIDERS: Emergency Provider Emergency Medicine; PCP Internal Medicine
DX: R07.9 Chest pain, unspecified (principal); R11.0 Nausea; Z79.82 Long term (current) use of aspirin; E11.9 Type 2 diabetes mellitus without complications; Z79.4 Long term (current) use of insulin; Z20.822 Contact with and (suspected) exposure to COVID-19
CPT/HCPCS: 36415; 71045; 80053; 82550; 83690; 84484; 85025; 85610; 85730; 87635; 93005; 99284; C9803

== ENCOUNTER → 2020-09-21 09:07 | Outpatient (CLI) | payer MEDICARE, MEDICAID, SELFPAY ==
[2020-06-22 10:32] VITALS: BMI 24.5
[2020-09-21 10:54] LABS: COVID19 -Nasal RAPID Negative (Negative)
== END ==
PROVIDERS: PCP Internal Medicine; Visit Provider Nurse Practitioner Family
DX: Z01.812 Encounter for preprocedural laboratory examination (principal); Z20.822 Contact with and (suspected) exposure to COVID-19
CPT/HCPCS: 87635; C9803

== ENCOUNTER → 2020-12-21 15:05 | Outpatient (CLI) | payer MEDICARE, MEDICAID, SELFPAY ==
[2020-06-22 10:32] VITALS: BMI 24.5
[2020-12-21 16:18] LABS: Add Manual Diff / Slide Review NO; Basophils Absolute Auto 100 /uL (0-100); Basophils Percent Auto 1.4 % (0-2); Eosinophils Absolute Auto 100 /uL (0-450); Eosinophils Percent Auto 1.6 % (2-4); Hematocrit 32.1 % (36-46); Hemoglobin 10.1 g/dL (12.0-16.0); Lymphocytes Absolute Auto 500 /uL (1100-4500); Lymphocytes Percent Auto 9.3 % (25-40); Mean Corpuscular HGB Conc 31.5 % (30-36); Mean Corpuscular Hemoglobin 23.3 PG (26-34); Mean Corpuscular Volume 73.9 fL (80-100); Monocytes Absolute Auto 700 /uL (0-900); Monocytes Percent Auto 14.9 % (3-14); Neutrophils Absolute Auto 3600 /uL (1500-7000); Neutrophils Percent Auto 72.8 % (50-75); Platelet Count 116 X10^3/uL (150-400); Red Blood Cell Count 4.34 X10^6/uL (4.0-5.2); Red Cell Distribution Width 19.8 % (11.6-14.8)
[2020-12-21 16:55] LABS: HEMOLYSIS < 15 (0-50); Iron 48 ug/dL (37-170)
[2020-12-21 17:06] LABS: Percent Iron Saturation 11 % (15-50); Total Iron Binding Capacity 454 ug/dL (265-497); Transferrin 384 mg/dL (206-381)
[2020-12-21 17:29] LABS: Ferritin 9 ng/mL (11-264)
== END ==
PROVIDERS: PCP Internal Medicine; Referring Provider Internal Medicine; Visit Provider Internal Medicine
DX: D50.9 Iron deficiency anemia, unspecified (principal)
CPT/HCPCS: 36415; 82728; 83540; 83550; 85025

== ENCOUNTER → 2021-01-04 16:13 | Outpatient (CLI) | payer MEDICARE, MEDICAID, SELFPAY ==
[2020-06-22 10:32] VITALS: BMI 24.5
[2021-01-04 17:46] LABS: Alanine Aminotransferase 15 IU/L (<35); Albumin 4.1 g/dL (3.5-5.0); Albumin Globulin Ratio 0.9 (1.0-2.8); Alkaline Phosphatase 155 U/L (38-126); Aspartate Aminotransferase 53 IU/L (14-36); BUN Creatinine Ratio 22.1 (6-22); Bilirubin Total 0.9 mg/dL (0.2-1.3); Blood Urea Nitrogen 27 mg/dL (7-17); Calcium 9.4 mg/dL (8.4-10.2); Carbon Dioxide 28 mmol/L (22-32); Chloride 103 mmol/L (98-107); Cholesterol 147 mg/dL (140-199); Estimated Glomerular Filt Rate 44.1 mL/min (>60); Globulin 4.5 g/dL (1.7-4.1); Glucose 172 mg/dL (80-110); HDL Cholesterol 52 mg/dL (40-60); HEMOLYSIS < 15 (0-50); LDL Cholesterol Calculated 72 mg/dL (<100); Magnesium 1.8 mg/dL (1.6-2.3); Potassium 4.6 mmol/L (3.4-5.1); Sodium 141 mmol/L (137-145); Total Protein 8.6 g/dL (6.3-8.2); Triglycerides 113 mg/dL (35-150)
[2021-01-08 17:48] LABS: Cholesterol, Total 142 mg/dL (100-199); HDL-Cholesterol 59 mg/dL (>39); HDL-Particle (Total) 25.8 umol/L (>=30.5); LDL Particle 649 nmol/L (<1000); LDL Size 21.6 nm (>20.5); LDL-Cholsterol 64 mg/dL (0-99); LP-IR Score <25 (<=45); Small LDL- Particle <90 nmol/L (<=527); Triglycerides 105 mg/dL (0-149)
== END ==
PROVIDERS: PCP Internal Medicine; Visit Provider Physician Assistant Medical
DX: E78.2 Mixed hyperlipidemia (principal); I10 Essential (primary) hypertension
CPT/HCPCS: 36415; 80053; 80061; 83704; 83735

== ENCOUNTER → 2021-01-13 11:01 | Outpatient (CLI) | payer MEDICARE, MEDICAID, SELFPAY ==
[2020-06-22 10:32] VITALS: BMI 24.5
[2021-01-13 11:56] LABS: COVID19 -Nasal RAPID Negative (Negative)
== END ==
PROVIDERS: PCP Internal Medicine; Referring Provider Internal Medicine; Visit Provider Internal Medicine
DX: Z20.822 Contact with and (suspected) exposure to COVID-19 (principal)
CPT/HCPCS: 87635; C9803

== ENCOUNTER → 2021-01-13 11:03 | Outpatient (CLI) | payer MEDICARE, MEDICAID, SELFPAY ==
[2020-06-22 10:32] VITALS: BMI 24.5
--- NOTE | 2021-01-18 10:07 | PM.PFT.1 ---
Pulmonary Function Test Referral & Results Date Patient Seen: 01/13/21 Requesting provider: Timur Schwartz Results: The spirometry demonstrates an FVC of 1.09 L which is 35% of predicted. The FEV1 was measured at 0.86 L which is 36% of predicted. The FEV1/FVC ratio was 79 which is 102% of predicted. Following the administration of bronchodilator there was a 12% improvement in FEV1 and a 59% improvement in FEF 25-75%. Lung volumes show an SVC of 1.48 L which is 50% of predicted. The diffusing capacity was measured at 12.30 which is 50% of predicted. No hemoglobin value was provided, so no correction for potential anemia could be made, if appropriate. The maximum voluntary ventilation was severely reduced Interpretation: This study demonstrates severe obstructive lung disease with FEV1 of less than 1 L. There is evidence of benefit following bronchodilator based on improvement in FEV1 and more notably improvement in FEF 25-75% as above which was suggest more dramatic improvement in small airway flow There is also moderately severe restrictive lung disease based on reduction SVC There is also moderate disease at the capillary alveolar level based on reduction in diffusing capacity Altogether this is consistent with a diagnosis of probably severe COPD
== END ==
PROVIDERS: PCP Internal Medicine; Referring Provider Internal Medicine; Visit Provider Internal Medicine
DX: R06.00 Dyspnea, unspecified (principal); R91.1 Solitary pulmonary nodule; J98.4 Other disorders of lung; J98.8 Other specified respiratory disorders; D89.811 Chronic graft-versus-host disease; Z20.822 Contact with and (suspected) exposure to COVID-19
CPT/HCPCS: 87635; 94060; 94726; 94729; C9803

== ENCOUNTER → 2021-01-20 17:55 | Outpatient (CLI) | payer MEDICARE, MEDICAID, SELFPAY ==
[2020-06-22 10:32] VITALS: BMI 24.5
[2021-01-20 18:30] LABS: COVID19 -Nasal RAPID Negative (Negative)
== END ==
PROVIDERS: PCP Internal Medicine; Visit Provider Physician Assistant
DX: Z20.822 Contact with and (suspected) exposure to COVID-19 (principal)
CPT/HCPCS: 87635

== ENCOUNTER 2021-01-28 18:42 | Emergency (ER) | payer MEDICARE, MEDICAID, SELFPAY ==
[2020-06-22 10:32] VITALS: BMI 24.5
[2021-01-28 18:49] VITALS: BP 131/60; PULSE 87; RESP 18; TEMP 36.7; O2SAT 96; BMI 24.5
--- NOTE | 2021-01-28 18:53 | DI.RAD.S_ITS ---
PROCEDURE: XR CHEST 2V INDICATIONS: cough TECHNIQUE: 2 views of the chest were acquired. COMPARISON: [facility], CR, XR CHEST 1V, 09/16/2020, 18:51. FINDINGS: Surgical changes and devices: None. Lungs and pleura: Mild patchy opacity within the left lung base. No pleural effusions or pneumothorax. Mediastinum: Mediastinal contours are normal. Heart size is normal. Bones and chest wall: No suspicious bony abnormalities. Soft tissues appear unremarkable. IMPRESSION: Left lower lobe pneumonia. Continued plain film surveillance is recommended to ensure resolution, and to exclude underlying or central malignancy. Dictated by: Bari Bridges M.D. on 01/28/2021 at 19:29 Approved by: Bari Bridges M.D. on 01/28/2021 at 19:29
[2021-01-28 19:37] LABS: COVID19 -Nasal RAPID Negative (Negative)
--- NOTE | 2021-01-28 19:49 | ED.GENADULT ---
HPI - General Adult General Chief complaint: Upper Respiratory Symptoms Stated complaint: SOB, Cough, Sent from [facility] Time Seen by Provider: 01/28/21 19:42 Source: patient Mode of arrival: Ambulatory Limitations: no limitations History of Present Illness HPI narrative: Patient is a 65-year-old female who is sent over from the walk-in clinic for which she states was ?a chest x-ray and antibiotics ?she states that she went to the walk-in clinic because she has had approximately 1 week of a cough, not feeling well, malaise, fevers and some shortness of breath. She states she was seen at the walk-in clinic and was given a diagnosis of pneumonia however per her report was sent to the emergency department to get antibiotics and a chest x-ray. Related Data Home Medications Medication Instructions Recorded Confirmed levothyroxine 50 mcg tablet 25 mcg PO DAILY #0 07/17/11 01/20/21 cinacalcet 30 mg tablet (Sensipar) 30 mg PO DAILY #0 12/16/16 01/20/21 rifaximin 550 mg tablet 550 mg PO BID 30 Days #60 tab 06/25/18 01/20/21 albuterol sulfate 90 mcg/actuation 2 puff INHALATION Q6HR PRN 07/06/19 01/20/21 aerosol inhaler (Ventolin HFA) aspirin 81 mg tablet,delayed 81 mg PO DAILY 08/12/19 01/20/21 release clopidogrel 75 mg tablet 75 mg PO DAILY 08/12/19 01/20/21 insulin aspart U-100 100 unit/mL 20 unit SUBCUT TID ml 08/12/19 01/20/21 (3 mL) subcutaneous pen metoprolol succinate 25 mg 25 mg PO DAILY 08/12/19 01/20/21 tablet,extended release 24 hr nitroglycerin 0.4 mg sublingual 0.4 mg SL PRN PRN tab 08/12/19 01/20/21 tablet pantoprazole 40 mg tablet,delayed 40 mg PO DAILY 08/12/19 01/20/21 release secukinumab 150 mg/mL subcutaneous 150 mg SUBCUT .QMonthly ml 08/12/19 01/20/21 pen injector (Cosentyx Pen) spironolactone 25 mg tablet 50 mg PO DAILY #0 tab 08/12/19 01/20/21 atorvastatin 40 mg tablet 80 mg PO BEDTIME tab 07/01/20 07/02/21 insulin regular hum U-500 conc 35 unit SUBCUT TID ml 01/20/20 01/20/21 (Humulin R U-500 (Conc) Insulin Kwikpen) Previous Rx's Medication Instructions Recorded desvenlafaxine 100 mg See Rx Instructions .ROUTE 01/19/21 tablet,extended release 24 hr .COMPLEX #30 tab azithromycin 250 mg tablet 250 mg PO DAILY 4 Days #4 tab 01/28/21 Allergies Allergy/AdvReac Type Severity Reaction Status Date / Time hydrocodone Allergy ITCHING Verified 01/28/21 18:49 oxycodone Allergy ITCHING Verified 01/28/21 18:49 propofol AdvReac Unknown Verified 01/28/21 18:49 morphine AdvReac Vomiting Verified 01/28/21 18:49 Review of Systems Constitutional Constitutional: Reports fatigue, Reports fever(s) and Reports lethargy Cardiovascular Cardiovascular: Denies chest pain and Reports dyspnea Respiratory Respiratory: Reports chest congestion, Reports cough and Reports dyspnea Gastrointestinal Gastrointestinal: Reports system reviewed and no additional complaints, except as documented Musculoskeletal Musculoskeletal: Reports system reviewed and no additional complaints, except as documented Integumentary/Breasts Skin/Breast: Reports system reviewed and no additional complaints, except as documented Neurologic Neurologic: Reports system reviewed and no additional complaints, except as documented Endocrine Endocrine: Reports fatigue Hematologic/Lymphatic On Anticoagulants: No Allergic/Immunologic Allergic/Immunologic: Reports system reviewed and no additional complaints, except as documented Patient History Medical History AML (acute myeloid leukemia) in remission Cirrhosis Depression Generalized anxiety disorder Hepatic encephalopathy History of ST elevation myocardial infarction (STEMI) History of upper gastrointestinal bleeding Insulin dependent diabetes mellitus Obsessive compulsive disorder Psoriasis Restrictive lung disease Scleroderma Thrombocytopenia Surgical History History of bone marrow transplant History of colonoscopy History of coronary artery stent placement Family History Father Heart disease S/P CABG x 4 Hypertension Mother Gallstones Brother No significant medical problems Sister Diabetes mellitus Social History marital status: unknown household members: none Smoking Status: Never smoker alcohol intake: former substance use type: does not use Smoking Status: Never smoker alcohol intake frequency: 0-2 drinks per day Substance Use Type: does not use Exam Initial Vital Signs Initial Vital Signs: Vital Signs Temperature 98.1 F 01/28/21 18:49 Pulse Rate 87 01/28/21 18:49 Respiratory Rate 18 01/28/21 18:49 Blood Pressure 131/60 01/28/21 18:49 Pulse Oximetry 96 01/28/21 18:49 Const General: cooperative, healthy appearing and comfortable HENMT Head: normal to inspection and normocephalic Eyes General: appearance normal, both eyes and all related structures Chest Chest: normal inspection of the chest Resp Effort & Inspection: normal respiratory effort and tachypneic Auscultation: clear to auscultation bilaterally Cardio Rate: regular rate Rhythm: regular rhythm Skin General: no rashes or lesions noted Neuro General: patient alert, patient awake and moves all extremities Extrem General: normal to inspection and capillary refill normal Psych Appearance: grossly normal and well kempt Course Orders Ordered: Discontinued Medications Azithromycin (Azithromycin 250 Mg Tablet) 500 mg PO NOW ONE Stop: 01/28/21 19:50 Last Admin: 01/28/21 20:12 Dose: 500 mg Documented by: DHRUV Vital Signs Vital signs: Vital Signs - 8 hr 01/28/21 20:23 Pulse Rate 83 Respiratory Rate 18 Blood Pressure 138/69 Pulse Oximetry 94 Medical Decision Making Lab Data Labs: Lab Results 01/28/21 Range/Units 18:55 SARS-CoV-2 (PCR) Negative (Negative) Imaging Data Chest x-ray: Radiologist's Impression: [address] [id number] ReportSigned Patient: Marianela ValdezR#: [id number]: 4Acct:[id number]/Sex: 65 / FDate of Service: 01/28/21Loc: EDAccession Number: [id number] Procedure: XR chest 2V Ordering Provider: Andrew Ramos D.O. PROCEDURE: XR CHEST 2V INDICATIONS: cough TECHNIQUE: 2 views of the chest were acquired. COMPARISON: [facility], , XR CHEST 1V, 09/16/2020, 18:51. FINDINGS: Surgical changes and devices: None. Lungs and pleura: Mild patchy opacity within the left lung base. No pleural effusions or pneumothorax. Mediastinum: Mediastinal contours are normal. Heart size is normal. Bones and chest wall: No suspicious bony abnormalities. Soft tissues appear unremarkable. IMPRESSION: Left lower lobe pneumonia. Continued plain film surveillance is recommended to ensure resolution, and to exclude underlying or central malignancy. Dictated by: Bari Bridges M.D. on 01/28/2021 at 19:29 Approved by: Bari Bridges M.D. on 01/28/2021 at 19:29 [facility] Narrative Medical decision making narrative: Patient was not hypoxic, not tachypneic, in no respiratory distress. Chest x-ray does show pneumonia this does fit her history and physical exam. Was given her 1st dose of antibiotics here in the emergency department and a prescription was sent to the pharmacy of her choice for the remainder of the course. She was given return precautions and follow-up instructions. She expressed understanding and agreement. Discharge Plan Departure Patient Disposition: Home Clinical Impression: Pneumonia Instructions: DI for Pneumonia -- Adult Activity Restrictions/Additional Instructions: The chest x-ray today does show indications of pneumonia. We will start you on antibiotics. You are given your 1st dose here and a prescription for the remainder was sent to [facility]. Take them as directed. Return to the emergency department for any new or worsening symptoms Prescriptions: New azithromycin 250 mg tablet 250 mg PO DAILY 4 Days Qty: 4 RF: 0 No Action rifaximin 550 mg tablet 550 mg PO BID 30 Days Qty: 60 RF: 0 levothyroxine 50 mcg Tablet 25 mcg PO DAILY Qty: 0 RF: 0 cinacalcet [Sensipar] 30 MG tablet 30 mg PO DAILY Qty: 0 RF: 0 aspirin 81 mg tablet,delayed release (DR/EC) 81 mg PO DAILY RF: 0 clopidogrel 75 mg tablet 75 mg PO DAILY RF: 0 metoprolol succinate 25 mg tablet extended release 24 hr 25 mg PO DAILY RF: 0 nitroglycerin 0.4 mg tablet, sublingual 0.4 mg SL PRN PRN (Reason: chest pain) RF: 0 pantoprazole 40 mg tablet,delayed release (DR/EC) 40 mg PO DAILY RF: 0 Cosentyx Pen 150 mg/mL pen injector 150 mg SUBCUT .QMonthly RF: 0 spironolactone 25 mg tablet 50 mg PO DAILY Qty: 0 RF: 0 insulin aspart U-100 100 unit/mL (3 mL) insulin pen 20 unit SUBCUT TID RF: 0 atorvastatin 40 mg tablet 80 mg PO BEDTIME RF: 0 Humulin R U-500 (Conc) Kwikpen 500 unit/mL (3 mL) insulin pen 35 unit subcut TID RF: 0 desvenlafaxine 100 mg tablet extended release 24 hr See Rx Instructions .ROUTE .COMPLEX Qty: 30 RF: 0 albuterol sulfate [Ventolin HFA] 90 mcg/actuation HFA aerosol inhaler 2 puff INHALATION Q6HR PRN (Reason: Shortness Of Breath Or Wheezing) RF: 0 Referrals: Timur Schwartz MD [Primary Care Provider] -
[2021-01-28] MEDS: AZITHROMYCIN 250 MG TABLET 500 MG PO (20:12)
[2021-01-28 20:23] VITALS: BP 138/69; PULSE 83; RESP 18; O2SAT 94
== END 2021-01-28 20:31 | disposition home or self-care (01) ==
PROVIDERS: Emergency Provider Emergency Medicine; PCP Internal Medicine
DX: J18.9 Pneumonia, unspecified organism (principal); R06.02 Shortness of breath; Z20.822 Contact with and (suspected) exposure to COVID-19
CPT/HCPCS: 71046; 87635; 99283; C9803

== ENCOUNTER 2021-02-14 13:45 | Outpatient (RCR) | payer MEDICARE, MEDICAID, SELFPAY ==
[2020-06-22 10:32] VITALS: BMI 24.5
--- NOTE | 2020-11-10 13:43 | PT.OIE ---
Current Diagnoses Systemic sclerosis, unspecified (11/10/20) Unsteadiness on feet (11/10/20) Past Medical History (Last Reviewed 09/16/20 @ 22:58 by Emily Simon DO) AML (acute myeloid leukemia) in remission Cirrhosis Depression Generalized anxiety disorder Hepatic encephalopathy History of ST elevation myocardial infarction (STEMI) History of upper gastrointestinal bleeding Insulin dependent diabetes mellitus Obsessive compulsive disorder Psoriasis Restrictive lung disease Scleroderma Thrombocytopenia Past Surgical History (Last Reviewed 09/16/20 @ 22:58 by Emily Simon DO) History of bone marrow transplant History of colonoscopy History of coronary artery stent placement Visit Care Team Role Provider Type Timur Schwartz MD Attending Provider Physician Primary Care Provider Referring Provider Specialty: Internal Medicine Address: [address] [place] [address], [facility] Email: [email or web address] Physical Therapy Initial Evaluation PT-OP-A Visit Information Start: 11/09/20 10:26 Freq: Status: Active Protocol: Document 11/09/20 12:45 [facility] (Rec: 11/10/20 13:42 [facility] [email or web address]) Out-Patient Physical Therapy Visit Information Visit Information Visit Type Initial Evaluation Visit Start Time 12:45 Visit Stop Time 13:30 Total Visit Minutes 45 Visit Number 1 Evaluation Information Evaluation Date 11/10/20 PT-OP-B Current Condition Start: 11/09/20 10:26 Freq: Status: Active Protocol: Document 11/09/20 12:57 [facility] (Rec: 11/09/20 13:34 [facility] [id number]) Current Condition History of Current Condition Current Complaints painful ROM LE especially the ankles/feet,painful gait, decreased balance History of Current Condition Pt has a hisotry of scleroderma that affects her LE. This makes her legs so tight she has lost ROM in her ankles. She reports pain with walking, decresased balance and poor energy. She has been seen in PT years ago for help reducing tightness in her legs. She notes that symptms increased following a myocardial infacrtion in June of 2019. Fay reports for days before her heart attack she was having a buring pain in her chest, she was taken to the ER at [facility] and then sent to [facility]. She was transfered from [facility] to [facility] in [place]. She had 2 stents put in and then had a GI bleed. When she returned home and for awhile ( a week or two) she felt increased energy. But then it went away. Has new symptoms of psorasis and reports her legs feel very bound. Taking Consentyx the injection for Psorasis. The scleroderma in her feet and legs feels worse. She hasn't had treatment in so many years for her legs. She is taking blood thinners. SHe had been doing cardiac rehab and doing really good but had to stop due to covid 19 pandemic. She hasn't been walking as much as she had before and she reports 15-20 minutes is her walking max. Past medical history includes hx of cancer, depression, type II diabetes, dizzyness, memory loss, neuropathy, thyroid disorder, psychological disorder She is no longer doing cardiac rehab, she feels that she is losing her balance more and has lost strength. She is dropping things and knocking things over. 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 A cane helps but she hasn't attempted it for a long time. PT-OP-C Subjective Start: 11/09/20 10:26 Freq: Status: Active Protocol: Document 11/09/20 12:45 [facility] (Rec: 11/10/20 13:42 [facility] [id number]) Patient Questionnaires ABC- Activity Specific Balance Confidence Scale ABC Score 32.5 ABC Functional Impairment 60 to <80% Impaired (Score 21- 40) OP-PT Pain Assessment Pain Assessment Grid Paper Pain Assessment Grid Completed Yes Location Bilateral Ankle Pain Location Details bilateral ankles and lower calf musculature Intensity 7 Scale Used Numeric (0 - 10) B hips Pain Location Details disctracting pain Intensity 4 Scale Used Numeric (0 - 10) PT-OP-F Manual Assessment Start: 11/09/20 10:26 Freq: Status: Active Protocol: Document 11/09/20 12:45 [facility] (Rec: 11/10/20 13:42 [facility] [email or web address]) Manual Assessments Soft Tissue Assessment Soft Tissue Mobility Assessment wide spread myofascial restrictions secondary to full body ratiation treament. The areas that affect Fay the most include her gastroc soleus and upper back and rib cage region. She is very restricted in her diaphragm, pec minor, lengthening of her calf into DF Joint Mobility Assessment Joint Mobility Assessment very poor ankle mobility, hypomobility of the ankle in all planes PT-OP-J Posture/Palpation/Skin Start: 11/09/20 10:26 Freq: Status: Active Protocol: Document 11/09/20 13:35 [facility] (Rec: 11/09/20 13:35 [facility] [id number]) Posture Evaluation Comments Posture Comments forward shoulder posture with kyphosis PT-OP-K Range of Motion Start: 11/09/20 10:26 Freq: Status: Active Protocol: Document 11/09/20 12:45 [facility] (Rec: 11/10/20 13:42 [facility] [email or web address]) Ankle and Foot Goniometric Range of Motion Ankle and Foot Right Ankle/Foot ROM WFL No Dorsiflexion with Knee Flexed 8 Dorsiflexion with Knee Extended 4 Plantarflexion 8 Inversion 8 Eversion 8 Left Ankle/Foot ROM WFL No Dorsiflexion with Knee Flexed 10 Dorsiflexion with Knee Extended 5 Plantarflexion 8 Inversion 8 Eversion 8 PT-OP-Q Treatments Start: 11/09/20 10:26 Freq: Status: Active Protocol: Document 11/09/20 12:45 [facility] (Rec: 11/10/20 13:42 [facility] [email or web address]) Cardio Equipment Treadmill Duration (Minutes) 5 Speed 1.3 Therapeutic Exercises Supine Exercises diaphragmatic breathing Supine Exercise Name diaphragmatic breathing Reps/Minutes x 10 reps Comments seated inhale x 4 counts, exhale x 6 counts Other Exercises seated rows Equipment Used level 1 theraband Reps/Minutes 2 x 10 reps PT-OP-T Assessment and Plan Start: 11/09/20 10:26 Freq: Status: Active Protocol: Document 11/09/20 12:45 [facility] (Rec: 11/10/20 13:42 [facility] [email or web address]) Physical Therapy Assessment Goals Four Impairment Fay is not currently engaging in a home exercise program balance/strength Short Term Goal (STG) Fay is instructed in a home strengthening program, balance exercises, postural exercises , and gentle stretches as we progress through therapy that she is able to do at home. STG Duration 4-8 weeks Three Impairment Pain prevents Fay from standing more than 10 min and walking > 1/4 mile Executive Administrative Asst Goal (LTG) Fay is able to increase her tolerance for standing to 30 minutes and walking 1/2 mile or greater at a time. Shortness of breath she had experienced has decreased Two Impairment Limited ankle ROM creating difficulty with gait and balance activities Executive Administrative Asst Goal (LTG) Fay demonstrates a improved in ankle ROM by at least 5 degrees for DF/PF/INV/EVR to assist with balance and gait activities LTG Duration 8 weeks One Impairment Pain rated 7/10 in B LE Short Term Goal (STG) Fay has a reduction in pain to 4-5/10 with manual therapy and ROM exercises Executive Administrative Asst Goal (LTG) With manual therapy techniques and a home stretching/ exercise program Fay is able to reduce her pain from 7/10 to 2-3/10 Assessment Summary Assessment Fay presents to physical therapy today with increasing balance and gait disturbances due to her neuropathy and decreased ROM in her ankles. She is also more affected at this time with her posture which is in more of a forward shoulder posture. She has difficulty taking deep breaths due to her compressed rib cage and hypomobility of her thoracic spine. Treatment will emphasize a strengthening program, postural program, balance and gait exercises as well as manual therapy techniques to help with Myofascial tightness and restrictions in her tissue. Physical Therapy Plan Frequency and Duration Frequency of Treatment 2x/Week Duration of Treatment 8 Plan of Care Start Date 11/09/20 Plan of Care End Date 01/04/21 Therapeutic Interventions Therapeutic Interventions Balance Training,Home Exercise Program,Manual Therapy, Neuromuscular Re-education, Patient/Caregiver Education, Self-Care/Home Management,Soft Tissue Mobilization, Therapeutic Exercises Next Visit Focus/Plan Next Note Type Treatment Note Next Visit Plan Begin working on a postural program and upening up the anterior chest to help with breathing.
--- NOTE | 2020-11-10 13:43 | PT.OPPOC ---
Physical, Occupational & Speech Therapy At [facility] Current Diagnoses Systemic sclerosis, unspecified (11/10/20) Unsteadiness on feet (11/10/20) Visit Care Team Role Provider Type Timur Schwartz MD Attending Provider Physician Primary Care Provider Referring Provider Specialty: Internal Medicine Address: [address] [place] [address], [facility] Email: [email or web address] Plan Of Care PT-OP-T Assessment and Plan Start: 11/09/20 10:26 Freq: Status: Active Protocol: Document 11/09/20 12:45 [facility] (Rec: 11/10/20 13:42 [facility] [email or web address]) Physical Therapy Assessment Goals Four Impairment Fay is not currently engaging in a home exercise program balance/strength Short Term Goal (STG) Fay is instructed in a home strengthening program, balance exercises, postural exercises , and gentle stretches as we progress through therapy that she is able to do at home. STG Duration 4-8 weeks Three Impairment Pain prevents Fay from standing more than 10 min and walking > 1/4 mile [facility]iary Goal (LTG) Fay is able to increase her tolerance for standing to 30 minutes and walking 1/2 mile or greater at a time. Shortness of breath she had experienced has decreased Two Impairment Limited ankle ROM creating difficulty with gait and balance activities Heat Transfer Technician Goal (LTG) Fay demonstrates a improved in ankle ROM by at least 5 degrees for DF/PF/INV/EVR to assist with balance and gait activities LTG Duration 8 weeks One Impairment Pain rated 7/10 in B LE Short Term Goal (STG) Fay has a reduction in pain to 4-5/10 with manual therapy and ROM exercises Heat Transfer Technician Goal (LTG) With manual therapy techniques and a home stretching/ exercise program Fay is able to reduce her pain from 7/10 to 2-3/10 Assessment Summary Assessment Fay presents to physical therapy today with increasing balance and gait disturbances due to her neuropathy and decreased ROM in her ankles. She is also more affected at this time with her posture which is in more of a forward shoulder posture. She has difficulty taking deep breaths due to her compressed rib cage and hypomobility of her thoracic spine. Treatment will emphasize a strengthening program, postural program, balance and gait exercises as well as manual therapy techniques to help with Myofascial tightness and restrictions in her tissue. Physical Therapy Plan Frequency and Duration Frequency of Treatment 2x/Week Duration of Treatment 8 Plan of Care Start Date 11/09/20 Plan of Care End Date 01/04/21 Therapeutic Interventions Therapeutic Interventions Balance Training,Home Exercise Program,Manual Therapy, Neuromuscular Re-education, Patient/Caregiver Education, Self-Care/Home Management,Soft Tissue Mobilization, Therapeutic Exercises Next Visit Focus/Plan Next Note Type Treatment Note Next Visit Plan Begin working on a postural program and opening up the anterior chest to help with breathing. Plan of Care Dates Plan of Care Start Date 11/09/20 Plan of Care End Date 01/04/21 Electronically Signed by: Nidhi Villanueva, PT 11/10/20 0227 Please Sign and Return: I have reviewed this Plan of Care and certify that the skilled therapy services above are required to meet the patient?s needs. Physician Signature Date Printed Name and Credentials Clinical Instructor Signature Printed Name and Credentials
--- NOTE | 2020-11-10 17:15 | PT.OTN ---
Current Diagnoses Systemic sclerosis, unspecified (11/10/20) Unsteadiness on feet (11/10/20) Physical Therapy Treatment Note PT-OP-A Visit Information Start: 11/09/20 10:26 Freq: Status: Active Protocol: Document 11/10/20 13:44 [facility] (Rec: 11/10/20 13:44 [facility] [email or web address]) Out-Patient Physical Therapy Visit Information Visit Information Visit Type Treatment Note Visit Start Time 13:45 Visit Stop Time 14:30 Total Visit Minutes 45 Visit Number 2 PT-OP-B Current Condition Start: 11/09/20 10:26 Freq: Status: Active Protocol: Document 11/09/20 12:57 [facility] (Rec: 11/09/20 13:34 [facility] [id number]) Current Condition History of Current Condition Current Complaints painful ROM LE especially the ankles/feet,painful gait, decreased balance History of Current Condition Pt has a hisotry of scleroderma that affects her LE. This makes her legs so tight she has lost ROM in her ankles. She reports pain with walking, decresased balance and poor energy. She has been seen in PT years ago for help reducing tightness in her legs. She notes that symptms increased following a myocardial infacrtion in June of 2019. Fay reports for days before her heart attack she was having a buring pain in her chest, she was taken to the ER at [facility] and then sent to [facility]. She was transfered from [facility] to [facility] in [place]. She had 2 stents put in and then had a GI bleed. When she returned home and for awhile ( a week or two) she felt increased energy. But then it went away. Has new symptoms of psorasis and reports her legs feel very bound. Taking Consentyx the injection for Psorasis. The scleroderma in her feet and legs feels worse. She hasn't had treatment in so many years for her legs. She is taking blood thinners. SHe had been doing cardiac rehab and doing really good but had to stop due to covid 19 pandemic. She hasn't been walking as much as she had before and she reports 15-20 minutes is her walking max. Past medical history includes hx of cancer, depression, type II diabetes, dizzyness, memory loss, neuropathy, thyroid disorder, psychological disorder She is no longer doing cardiac rehab, she feels that she is losing her balance more and has lost strength. She is dropping things and knocking things over. 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 A cane helps but she hasn't attempted it for a long time. PT-OP-C Subjective Start: 11/09/20 10:26 Freq: Status: Active Protocol: Document 11/10/20 17:11 [facility] (Rec: 11/10/20 17:15 [facility] [email or web address]) OP-PT Subjective Patient Comments Patient Comments pt reports she felt good in her rib cage after last visit Patient Reported Progress Improving PT-OP-F Manual Assessment Start: 11/09/20 10:26 Freq: Status: Active Protocol: Document 11/09/20 12:45 [facility] (Rec: 11/10/20 13:42 [facility] [email or web address]) Manual Assessments Soft Tissue Assessment Soft Tissue Mobility Assessment wide spread myofascial restrictions secondary to full body ratiation treament. The areas that affect Fay the most include her gastroc soleus and upper back and rib cage region. She is very restricted in her diaphragm, pec minor, lengthening of her calf into DF Joint Mobility Assessment Joint Mobility Assessment very poor ankle mobility, hypomobility of the ankle in all planes PT-OP-J Posture/Palpation/Skin Start: 11/09/20 10:26 Freq: Status: Active Protocol: Document 11/09/20 13:35 [facility] (Rec: 11/09/20 13:35 [facility] [id number]) Posture Evaluation Comments Posture Comments forward shoulder posture with kyphosis PT-OP-K Range of Motion Start: 11/09/20 10:26 Freq: Status: Active Protocol: Document 11/09/20 12:45 [facility] (Rec: 11/10/20 13:42 [facility] [email or web address]) Ankle and Foot Goniometric Range of Motion Ankle and Foot Right Ankle/Foot ROM WFL No Dorsiflexion with Knee Flexed 8 Dorsiflexion with Knee Extended 4 Plantarflexion 8 Inversion 8 Eversion 8 Left Ankle/Foot ROM WFL No Dorsiflexion with Knee Flexed 10 Dorsiflexion with Knee Extended 5 Plantarflexion 8 Inversion 8 Eversion 8 PT-OP-Q Treatments Start: 11/09/20 10:26 Freq: Status: Active Protocol: Document 11/10/20 17:11 [facility] (Rec: 11/10/20 17:15 [facility] [email or web address]) Cardio Equipment Treadmill Duration (Minutes) 13 Speed 1.3 Manual Therapy Treatment Soft Tissue Mobilization Upper, middle traps Body Location B Mobilization Type Cross-Friction,Rolling Intensity/Depth Moderate Body Position Sitting Comments cued slow breaths Joint Mobilizations thoracic spine Joint PA glides in sitting Direction PA Grade II Body Position Sitting Comments pt had good tolerance today for seated thoracic mobilizations Manual Techniques 2 Type manual stretching for the gastroc/soleus complex Body Location B Body Position Sitting Comments long sitting 1 Type PROM stretches were performed at B ankles and feet, manual stretching Body Location B PF/ DF Body Position Sitting Comments improving ankle ROM with manual stretches PT-OP-T Assessment and Plan Start: 11/09/20 10:26 Freq: Status: Active Protocol: Document 11/10/20 17:11 [facility] (Rec: 11/10/20 17:15 [facility] [email or web address]) Physical Therapy Assessment Assessment Summary Assessment Fay does really well with chest opening exercises as it helps her breath. And she felt less wobbilly with walking follwing treatment as she is able to stand up straighter Physical Therapy Plan Frequency and Duration Frequency of Treatment 2x/Week Duration of Treatment 8 Plan of Care Start Date 11/09/20 Plan of Care End Date 01/04/21
--- NOTE | 2020-11-15 17:06 | PT.OTN ---
Current Diagnoses Systemic sclerosis, unspecified (11/15/20) Unsteadiness on feet (11/15/20) Physical Therapy Treatment Note PT-OP-A Visit Information Start: 11/09/20 10:26 Freq: Status: Active Protocol: Document 11/15/20 13:08 [facility] (Rec: 11/15/20 13:09 [facility] [id number]) Out-Patient Physical Therapy Visit Information Visit Information Visit Type Treatment Note Visit Start Time 13:00 Visit Stop Time 13:45 Total Visit Minutes 45 Visit Number 3 PT-OP-B Current Condition Start: 11/09/20 10:26 Freq: Status: Active Protocol: Document 11/09/20 12:57 [facility] (Rec: 11/09/20 13:34 [facility] [id number]) Current Condition History of Current Condition Current Complaints painful ROM LE especially the ankles/feet,painful gait, decreased balance History of Current Condition Pt has a hisotry of scleroderma that affects her LE. This makes her legs so tight she has lost ROM in her ankles. She reports pain with walking, decresased balance and poor energy. She has been seen in PT years ago for help reducing tightness in her legs. She notes that symptms increased following a myocardial infacrtion in June of 2019. Fay reports for days before her heart attack she was having a buring pain in her chest, she was taken to the ER at [facility] and then sent to [facility]. She was transfered from [facility] to [facility] in [place]. She had 2 stents put in and then had a GI bleed. When she returned home and for awhile ( a week or two) she felt increased energy. But then it went away. Has new symptoms of psorasis and reports her legs feel very bound. Taking Consentyx the injection for Psorasis. The scleroderma in her feet and legs feels worse. She hasn't had treatment in so many years for her legs. She is taking blood thinners. SHe had been doing cardiac rehab and doing really good but had to stop due to covid 19 pandemic. She hasn't been walking as much as she had before and she reports 15-20 minutes is her walking max. Past medical history includes hx of cancer, depression, type II diabetes, dizzyness, memory loss, neuropathy, thyroid disorder, psychological disorder She is no longer doing cardiac rehab, she feels that she is losing her balance more and has lost strength. She is dropping things and knocking things over. 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 A cane helps but she hasn't attempted it for a long time. PT-OP-C Subjective Start: 11/09/20 10:26 Freq: Status: Active Protocol: Document 11/15/20 13:08 [facility] (Rec: 11/15/20 13:09 [facility] [id number]) OP-PT Subjective Patient Comments Patient Comments pt reports her psoriasis is much worse and she is concerned about her knees. She has not yet started her new medication for psorasis PT-OP-F Manual Assessment Start: 11/09/20 10:26 Freq: Status: Active Protocol: Document 11/09/20 12:45 [facility] (Rec: 11/10/20 13:42 [facility] [email or web address]) Manual Assessments Soft Tissue Assessment Soft Tissue Mobility Assessment wide spread myofascial restrictions secondary to full body ratiation treament. The areas that affect Fay the most include her gastroc soleus and upper back and rib cage region. She is very restricted in her diaphragm, pec minor, lengthening of her calf into DF Joint Mobility Assessment Joint Mobility Assessment very poor ankle mobility, hypomobility of the ankle in all planes PT-OP-J Posture/Palpation/Skin Start: 11/09/20 10:26 Freq: Status: Active Protocol: Document 11/09/20 13:35 [facility] (Rec: 11/09/20 13:35 [facility] [id number]) Posture Evaluation Comments Posture Comments forward shoulder posture with kyphosis PT-OP-K Range of Motion Start: 11/09/20 10:26 Freq: Status: Active Protocol: Document 11/09/20 12:45 [facility] (Rec: 11/10/20 13:42 [facility] [email or web address]) Ankle and Foot Goniometric Range of Motion Ankle and Foot Right Ankle/Foot ROM WFL No Dorsiflexion with Knee Flexed 8 Dorsiflexion with Knee Extended 4 Plantarflexion 8 Inversion 8 Eversion 8 Left Ankle/Foot ROM WFL No Dorsiflexion with Knee Flexed 10 Dorsiflexion with Knee Extended 5 Plantarflexion 8 Inversion 8 Eversion 8 PT-OP-Q Treatments Start: 11/09/20 10:26 Freq: Status: Active Protocol: Document 11/15/20 13:45 [facility] (Rec: 11/15/20 17:06 [facility] [email or web address]) Cardio Equipment Treadmill Duration (Minutes) 13 Speed 1.3 Therapeutic Exercises Supine Exercises diaphragmatic breathing Supine Exercise Name diaphragmatic breathing Reps/Minutes x 10 reps Comments seated inhale x 4 counts, exhale x 6 counts Other Exercises seated rows Equipment Used level 1 theraband Reps/Minutes 2 x 10 reps Manual Therapy Treatment Soft Tissue Mobilization B patellar tendon Body Location B Mobilization Type Cross-Friction Intensity/Depth Moderate Body Position Sitting Comments Long sitting Extra time spend over R patellar tendon to allow for elevation durign knee flexion. I can breath better. 1 Body Location B anterior and posterior shins /feet Mobilization Type Myofascial Release Intensity/Depth Superficial Body Position long sitting (rolled towel under B ischial tuberosities) Comments MFR was performed to B anterior and posterior shins and feet, PROM was performed at the ankles and feet Joint Mobilizations MTPs, intertarsals, calcaneus on talus/navicular Joint B Direction AP, med/lat Grade II Body Position Sitting Comments long sitting Patella mobes Joint B Direction med/lat/sup/inf Grade II Body Position Sitting Comments Long sitting. PT-OP-T Assessment and Plan Start: 11/09/20 10:26 Freq: Status: Active Protocol: Document 11/15/20 13:45 [facility] (Rec: 11/15/20 17:06 [facility] [email or web address]) Physical Therapy Assessment Assessment Summary Assessment pts psorasis is much more advanced now that it has been. Fay hasn't started her new medication as it is an injection and she is not sure yet where she needs to inject it. I advised to her talk with her MD regarding this as it would be important for her to start this medication. There was quite a few patches around knee and patella and mobilizations here were tighter today than they have been in previous courses of PT Physical Therapy Plan Frequency and Duration Frequency of Treatment 2x/Week Duration of Treatment 8 Plan of Care Start Date 11/09/20 Plan of Care End Date 01/04/21 Therapeutic Interventions Therapeutic Interventions Balance Training,Home Exercise Program,Manual Therapy, Neuromuscular Re-education, Patient/Caregiver Education, Self-Care/Home Management,Soft Tissue Mobilization, Therapeutic Exercises Next Visit Focus/Plan Next Note Type Treatment Note Next Visit Plan continue working on a postural program and upening up the anterior chest to help with breathing. Progress LE strengthening
--- NOTE | 2020-11-17 17:53 | PT.OTN ---
Current Diagnoses Systemic sclerosis, unspecified (11/17/20) Unsteadiness on feet (11/17/20) Physical Therapy Treatment Note PT-OP-A Visit Information Start: 11/09/20 10:26 Freq: Status: Active Protocol: Document 11/17/20 17:46 [facility] (Rec: 11/17/20 17:53 [facility] [email or web address]) Out-Patient Physical Therapy Visit Information Visit Information Visit Type Treatment Note Visit Start Time 13:45 Visit Stop Time 14:30 Total Visit Minutes 45 Visit Number 4 PT-OP-B Current Condition Start: 11/09/20 10:26 Freq: Status: Active Protocol: Document 11/09/20 12:57 [facility] (Rec: 11/09/20 13:34 [facility] [id number]) Current Condition History of Current Condition Current Complaints painful ROM LE especially the ankles/feet,painful gait, decreased balance History of Current Condition Pt has a hisotry of scleroderma that affects her LE. This makes her legs so tight she has lost ROM in her ankles. She reports pain with walking, decresased balance and poor energy. She has been seen in PT years ago for help reducing tightness in her legs. She notes that symptms increased following a myocardial infacrtion in June of 2019. Fay reports for days before her heart attack she was having a buring pain in her chest, she was taken to the ER at [facility] and then sent to [facility]. She was transfered from [facility] to [facility] in [place]. She had 2 stents put in and then had a GI bleed. When she returned home and for awhile ( a week or two) she felt increased energy. But then it went away. Has new symptoms of psorasis and reports her legs feel very bound. Taking Consentyx the injection for Psorasis. The scleroderma in her feet and legs feels worse. She hasn't had treatment in so many years for her legs. She is taking blood thinners. SHe had been doing cardiac rehab and doing really good but had to stop due to covid 19 pandemic. She hasn't been walking as much as she had before and she reports 15-20 minutes is her walking max. Past medical history includes hx of cancer, depression, type II diabetes, dizzyness, memory loss, neuropathy, thyroid disorder, psychological disorder She is no longer doing cardiac rehab, she feels that she is losing her balance more and has lost strength. She is dropping things and knocking things over. 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 A cane helps but she hasn't attempted it for a long time. PT-OP-C Subjective Start: 11/09/20 10:26 Freq: Status: Active Protocol: Document 11/17/20 17:46 [facility] (Rec: 11/17/20 17:53 [facility] [email or web address]) OP-PT Subjective Patient Comments Patient Comments pt reports she still hasn't started her psorasis medication yet. She feels a little short of breath right now PT-OP-F Manual Assessment Start: 11/09/20 10:26 Freq: Status: Active Protocol: Document 11/09/20 12:45 [facility] (Rec: 11/10/20 13:42 [facility] [email or web address]) Manual Assessments Soft Tissue Assessment Soft Tissue Mobility Assessment wide spread myofascial restrictions secondary to full body ratiation treament. The areas that affect Fay the most include her gastroc soleus and upper back and rib cage region. She is very restricted in her diaphragm, pec minor, lengthening of her calf into DF Joint Mobility Assessment Joint Mobility Assessment very poor ankle mobility, hypomobility of the ankle in all planes PT-OP-J Posture/Palpation/Skin Start: 11/09/20 10:26 Freq: Status: Active Protocol: Document 11/09/20 13:35 [facility] (Rec: 11/09/20 13:35 [facility] [id number]) Posture Evaluation Comments Posture Comments forward shoulder posture with kyphosis PT-OP-K Range of Motion Start: 11/09/20 10:26 Freq: Status: Active Protocol: Document 11/09/20 12:45 [facility] (Rec: 11/10/20 13:42 [facility] [email or web address]) Ankle and Foot Goniometric Range of Motion Ankle and Foot Right Ankle/Foot ROM WFL No Dorsiflexion with Knee Flexed 8 Dorsiflexion with Knee Extended 4 Plantarflexion 8 Inversion 8 Eversion 8 Left Ankle/Foot ROM WFL No Dorsiflexion with Knee Flexed 10 Dorsiflexion with Knee Extended 5 Plantarflexion 8 Inversion 8 Eversion 8 PT-OP-Q Treatments Start: 11/09/20 10:26 Freq: Status: Active Protocol: Document 11/17/20 17:46 [facility] (Rec: 11/17/20 17:53 [facility] [email or web address]) Cardio Equipment Treadmill Duration (Minutes) 10 Speed 1.5 Therapeutic Exercises Supine Exercises diaphragmatic breathing Supine Exercise Name diaphragmatic breathing Reps/Minutes x 10 reps Comments seated inhale x 4 counts, exhale x 6 counts Other Exercises sit-stand Reps/Minutes x 10 seated rows Equipment Used level 1 theraband Reps/Minutes 2 x 10 reps Manual Therapy Treatment Soft Tissue Mobilization B patellar tendon Body Location B Mobilization Type Cross-Friction Intensity/Depth Moderate Body Position Sitting Comments Long sitting Extra time spend over R patellar tendon to allow for elevation durign knee flexion. I can breath better. Joint Mobilizations Patella mobes Joint B Direction med/lat/sup/inf Grade II Body Position Sitting Comments Long sitting. Manual Techniques 2 Type manual stretching for the gastroc/soleus complex Body Location B Body Position Sitting Comments long sitting 1 Type PROM stretches were performed at B ankles and feet, manual stretching Body Location B PF/ DF Body Position Sitting Comments improving ankle ROM with manual stretches PT-OP-T Assessment and Plan Start: 11/09/20 10:26 Freq: Status: Active Protocol: Document 11/17/20 17:46 [facility] (Rec: 11/17/20 17:53 [facility] [email or web address]) Physical Therapy Assessment Assessment Summary Assessment pt has been able to increase her ambulation to 20 minutes again. Working on diaphragmatci breathing. Physical Therapy Plan Frequency and Duration Frequency of Treatment 2x/Week Duration of Treatment 8 Plan of Care Start Date 11/09/20 Plan of Care End Date 01/04/21 Therapeutic Interventions Therapeutic Interventions Balance Training,Home Exercise Program,Manual Therapy, Neuromuscular Re-education, Patient/Caregiver Education, Self-Care/Home Management,Soft Tissue Mobilization, Therapeutic Exercises Next Visit Focus/Plan Next Note Type Treatment Note Next Visit Plan continue working on a postural program and upening up the anterior chest to help with breathing. Progress LE strengthening
--- NOTE | 2020-11-24 17:39 | PT.OTN ---
Current Diagnoses Systemic sclerosis, unspecified (11/24/20) Unsteadiness on feet (11/24/20) Physical Therapy Treatment Note PT-OP-A Visit Information Start: 11/09/20 10:26 Freq: Status: Active Protocol: Document 11/24/20 13:45 [facility] (Rec: 11/29/20 17:39 [facility] [email or web address]) Out-Patient Physical Therapy Visit Information Visit Information Visit Type Treatment Note Visit Start Time 13:45 Visit Stop Time 14:30 Total Visit Minutes 45 Visit Number 5 PT-OP-B Current Condition Start: 11/09/20 10:26 Freq: Status: Active Protocol: Document 11/09/20 12:57 [facility] (Rec: 11/09/20 13:34 [facility] [id number]) Current Condition History of Current Condition Current Complaints painful ROM LE especially the ankles/feet,painful gait, decreased balance History of Current Condition Pt has a hisotry of scleroderma that affects her LE. This makes her legs so tight she has lost ROM in her ankles. She reports pain with walking, decresased balance and poor energy. She has been seen in PT years ago for help reducing tightness in her legs. She notes that symptms increased following a myocardial infacrtion in June of 2019. Fay reports for days before her heart attack she was having a buring pain in her chest, she was taken to the ER at [facility] and then sent [facility]. She was transfered from [facility] to [facility] in [place]. She had 2 stents put in and then had a GI bleed. When she returned home and for awhile ( a week or two) she felt increased energy. But then it went away. Has new symptoms of psorasis and reports her legs feel very bound. Taking Consentyx the injection for Psorasis. The scleroderma in her feet and legs feels worse. She hasn't had treatment in so many years for her legs. She is taking blood thinners. SHe had been doing cardiac rehab and doing really good but had to stop due to covid 19 pandemic. She hasn't been walking as much as she had before and she reports 15-20 minutes is her walking max. Past medical history includes hx of cancer, depression, type II diabetes, dizzyness, memory loss, neuropathy, thyroid disorder, psychological disorder She is no longer doing cardiac rehab, she feels that she is losing her balance more and has lost strength. She is dropping things and knocking things over. 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 A cane helps but she hasn't attempted it for a long time. PT-OP-C Subjective Start: 11/09/20 10:26 Freq: Status: Active Protocol: Document 11/24/20 13:45 [facility] (Rec: 11/29/20 17:39 [facility] [email or web address]) OP-PT Subjective Patient Comments Patient Comments pt reports she has gone back to per previous psorasis medication and has started it. PT-OP-F Manual Assessment Start: 11/09/20 10:26 Freq: Status: Active Protocol: Document 11/09/20 12:45 [facility] (Rec: 11/10/20 13:42 [facility] [email or web address]) Manual Assessments Soft Tissue Assessment Soft Tissue Mobility Assessment wide spread myofascial restrictions secondary to full body ratiation treament. The areas that affect Fay the most include her gastroc soleus and upper back and rib cage region. She is very restricted in her diaphragm, pec minor, lengthening of her calf into DF Joint Mobility Assessment Joint Mobility Assessment very poor ankle mobility, hypomobility of the ankle in all planes PT-OP-J Posture/Palpation/Skin Start: 11/09/20 10:26 Freq: Status: Active Protocol: Document 11/09/20 13:35 [facility] (Rec: 11/09/20 13:35 [facility] [id number]) Posture Evaluation Comments Posture Comments forward shoulder posture with kyphosis PT-OP-K Range of Motion Start: 11/09/20 10:26 Freq: Status: Active Protocol: Document 11/09/20 12:45 [facility] (Rec: 11/10/20 13:42 [facility] [email or web address]) Ankle and Foot Goniometric Range of Motion Ankle and Foot Right Ankle/Foot ROM WFL No Dorsiflexion with Knee Flexed 8 Dorsiflexion with Knee Extended 4 Plantarflexion 8 Inversion 8 Eversion 8 Left Ankle/Foot ROM WFL No Dorsiflexion with Knee Flexed 10 Dorsiflexion with Knee Extended 5 Plantarflexion 8 Inversion 8 Eversion 8 PT-OP-Q Treatments Start: 11/09/20 10:26 Freq: Status: Active Protocol: Document 11/24/20 13:45 [facility] (Rec: 11/29/20 17:39 [facility] [email or web address]) Manual Therapy Treatment Soft Tissue Mobilization Upper, middle traps Body Location B Mobilization Type Cross-Friction,Rolling Intensity/Depth Moderate Body Position Sitting Comments cued slow breaths B patellar tendon Body Location B Mobilization Type Cross-Friction Intensity/Depth Moderate Body Position Sitting Comments Long sitting Extra time spend over R patellar tendon to allow for elevation durign knee flexion. I can breath better. 1 Body Location B anterior and posterior shins /feet Mobilization Type Myofascial Release Intensity/Depth Superficial Body Position long sitting (rolled towel under B ischial tuberosities) Comments MFR was performed to B anterior and posterior shins and feet, PROM was performed at the ankles and feet Joint Mobilizations MTPs, intertarsals, calcaneus on talus/navicular Joint B Direction AP, med/lat Grade II Body Position Sitting Comments long sitting thoracic spine Joint PA glides in sitting Direction PA Grade II Body Position Sitting Comments pt had good tolerance today for seated thoracic mobilizations Patella mobes Joint B Direction med/lat/sup/inf Grade II Body Position Sitting Comments Long sitting. Manual Techniques 2 Type manual stretching for the gastroc/soleus complex Body Location B Body Position Sitting Comments long sitting 1 Type PROM stretches were performed at B ankles and feet, manual stretching Body Location B PF/ DF Body Position Sitting Comments improving ankle ROM with manual stretches PT-OP-T Assessment and Plan Start: 11/09/20 10:26 Freq: Status: Active Protocol: Document 11/24/20 13:45 [facility] (Rec: 11/29/20 17:39 [facility] [email or web address]) Physical Therapy Assessment Assessment Summary Assessment continue to work on breathing, pt has been doing her theraband at home and had improve thoracic extension today in sitting. Physical Therapy Plan Frequency and Duration Frequency of Treatment 2x/Week Duration of Treatment 8 Plan of Care Start Date 11/09/20 Plan of Care End Date 01/04/21
--- NOTE | 2020-11-30 13:31 | PT.OTN ---
Current Diagnoses Systemic sclerosis, unspecified (11/30/20) Unsteadiness on feet (11/30/20) Physical Therapy Treatment Note PT-OP-A Visit Information Start: 11/09/20 10:26 Freq: Status: Active Protocol: Document 11/30/20 10:32 [facility] (Rec: 11/30/20 10:33 [facility] [id number]) Out-Patient Physical Therapy Visit Information Visit Information Visit Type Treatment Note Visit Start Time 10:30 Visit Stop Time 11:15 Total Visit Minutes 45 Visit Number 6 PT-OP-B Current Condition Start: 11/09/20 10:26 Freq: Status: Active Protocol: Document 11/09/20 12:57 [facility] (Rec: 11/09/20 13:34 [facility] [id number]) Current Condition History of Current Condition Current Complaints painful ROM LE especially the ankles/feet,painful gait, decreased balance History of Current Condition Pt has a hisotry of scleroderma that affects her LE. This makes her legs so tight she has lost ROM in her ankles. She reports pain with walking, decresased balance and poor energy. She has been seen in PT years ago for help reducing tightness in her legs. She notes that symptms increased following a myocardial infacrtion in June of 2019. Fay reports for days before her heart attack she was having a buring pain in her chest, she was taken to the ER at [facility] and then sent to [facility]. She was transfered from [facility] to [facility] in [place]. She had 2 stents put in and then had a GI bleed. When she returned home and for awhile ( a week or two) she felt increased energy. But then it went away. Has new symptoms of psorasis and reports her legs feel very bound. Taking Consentyx the injection for Psorasis. The scleroderma in her feet and legs feels worse. She hasn't had treatment in so many years for her legs. She is taking blood thinners. SHe had been doing cardiac rehab and doing really good but had to stop due to covid 19 pandemic. She hasn't been walking as much as she had before and she reports 15-20 minutes is her walking max. Past medical history includes hx of cancer, depression, type II diabetes, dizzyness, memory loss, neuropathy, thyroid disorder, psychological disorder She is no longer doing cardiac rehab, she feels that she is losing her balance more and has lost strength. She is dropping things and knocking things over. 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 A cane helps but she hasn't attempted it for a long time. PT-OP-C Subjective Start: 11/09/20 10:26 Freq: Status: Active Protocol: Document 11/30/20 10:32 [facility] (Rec: 11/30/20 10:33 [facility] [id number]) OP-PT Subjective Patient Comments Patient Comments pt reports she didn't sleep last night PT-OP-F Manual Assessment Start: 11/09/20 10:26 Freq: Status: Active Protocol: Document 11/09/20 12:45 [facility] (Rec: 11/10/20 13:42 [facility] [id number]) Manual Assessments Soft Tissue Assessment Soft Tissue Mobility Assessment wide spread myofascial restrictions secondary to full body ratiation treament. The areas that affect Fay the most include her gastroc soleus and upper back and rib cage region. She is very restricted in her diaphragm, pec minor, lengthening of her calf into DF Joint Mobility Assessment Joint Mobility Assessment very poor ankle mobility, hypomobility of the ankle in all planes PT-OP-J Posture/Palpation/Skin Start: 11/09/20 10:26 Freq: Status: Active Protocol: Document 11/09/20 13:35 [facility] (Rec: 11/09/20 13:35 [facility] [id number]) Posture Evaluation Comments Posture Comments forward shoulder posture with kyphosis PT-OP-K Range of Motion Start: 11/09/20 10:26 Freq: Status: Active Protocol: Document 11/09/20 12:45 [facility] (Rec: 11/10/20 13:42 [facility] [id number]) Ankle and Foot Goniometric Range of Motion Ankle and Foot Right Ankle/Foot ROM WFL No Dorsiflexion with Knee Flexed 8 Dorsiflexion with Knee Extended 4 Plantarflexion 8 Inversion 8 Eversion 8 Left Ankle/Foot ROM WFL No Dorsiflexion with Knee Flexed 10 Dorsiflexion with Knee Extended 5 Plantarflexion 8 Inversion 8 Eversion 8 PT-OP-Q Treatments Start: 11/09/20 10:26 Freq: Status: Active Protocol: Document 11/30/20 10:30 [facility] (Rec: 11/30/20 13:31 [facility] [id number]) Manual Therapy Treatment Soft Tissue Mobilization Upper, middle traps Body Location B Mobilization Type Cross-Friction,Rolling Intensity/Depth Moderate Body Position Sitting Comments cued slow breaths B patellar tendon Body Location B Mobilization Type Cross-Friction Intensity/Depth Moderate Body Position Sitting Comments Long sitting Extra time spend over R patellar tendon to allow for elevation durign knee flexion. I can breath better. 1 Body Location B anterior and posterior shins /feet Mobilization Type Myofascial Release Intensity/Depth Superficial Body Position long sitting (rolled towel under B ischial tuberosities) Comments MFR was performed to B anterior and posterior shins and feet, PROM was performed at the ankles and feet Manual Techniques 2 Type manual stretching for the gastroc/soleus complex Body Location B Body Position Sitting Comments long sitting 1 Type PROM stretches were performed at B ankles and feet, manual stretching Body Location B PF/ DF Body Position Sitting Comments improving ankle ROM with manual stretches PT-OP-T Assessment and Plan Start: 11/09/20 10:26 Freq: Status: Active Protocol: Document 11/30/20 10:30 [facility] (Rec: 11/30/20 13:31 [facility] [id number]) Physical Therapy Assessment Assessment Summary Assessment Fay c/o left sided breast pain today. I talked to her about scheduling a appointment for a breast examination with her doctor. Fay was able to ambulate on the Treadmill x 15 minutes following treatment today Physical Therapy Plan Frequency and Duration Frequency of Treatment 2x/Week Duration of Treatment 8 Plan of Care Start Date 11/09/20 Plan of Care End Date 01/04/21 Next Visit Focus/Plan Next Note Type Treatment Note Next Visit Plan continue working to increase ankle ROM, improve calf flexibility, postural exercises and progress walking .
--- NOTE | 2020-12-07 14:30 | PT.OTN ---
Current Diagnoses Systemic sclerosis, unspecified (12/06/20) Unsteadiness on feet (12/06/20) Physical Therapy Treatment Note PT-OP-A Visit Information Start: 11/09/20 10:26 Freq: Status: Active Protocol: Document 12/06/20 12:58 [facility] (Rec: 12/06/20 13:05 [facility] [id number]) Out-Patient Physical Therapy Visit Information Visit Information Visit Type Treatment Note Visit Start Time 13:00 Visit Stop Time 13:45 Total Visit Minutes 45 Visit Number 7 PT-OP-B Current Condition Start: 11/09/20 10:26 Freq: Status: Active Protocol: Document 11/09/20 12:57 [facility] (Rec: 11/09/20 13:34 [facility] [id number]) Current Condition History of Current Condition Current Complaints painful ROM LE especially the ankles/feet,painful gait, decreased balance History of Current Condition Pt has a hisotry of scleroderma that affects her LE. This makes her legs so tight she has lost ROM in her ankles. She reports pain with walking, decresased balance and poor energy. She has been seen in PT years ago for help reducing tightness in her legs. She notes that symptms increased following a myocardial infacrtion in June of 2019. Fay reports for days before her heart attack she was having a buring pain in her chest, she was taken to the ER at [facility] and then sent to [facility]. She was transfered from [facility] to [facility] in [place]. She had 2 stents put in and then had a GI bleed. When she returned home and for awhile ( a week or two) she felt increased energy. But then it went away. Has new symptoms of psorasis and reports her legs feel very bound. Taking Consentyx the injection for Psorasis. The scleroderma in her feet and legs feels worse. She hasn't had treatment in so many years for her legs. She is taking blood thinners. SHe had been doing cardiac rehab and doing really good but had to stop due to covid 19 pandemic. She hasn't been walking as much as she had before and she reports 15-20 minutes is her walking max. Past medical history includes hx of cancer, depression, type II diabetes, dizzyness, memory loss, neuropathy, thyroid disorder, psychological disorder She is no longer doing cardiac rehab, she feels that she is losing her balance more and has lost strength. She is dropping things and knocking things over. 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 A cane helps but she hasn't attempted it for a long time. PT-OP-C Subjective Start: 11/09/20 10:26 Freq: Status: Active Protocol: Document 12/06/20 12:58 [facility] (Rec: 12/06/20 13:05 [facility] [id number]) OP-PT Subjective Patient Comments Patient Comments pt notes she has been more out of breath lately. She reports she was able to ambulate on the treadmill x 10 minutes last visit due to shortness of breath. She does have a appointment with dermatology now for the sore on her hip. She has been able to resume her psoriasis medication now. Patient Reported Progress Improving PT-OP-F Manual Assessment Start: 11/09/20 10:26 Freq: Status: Active Protocol: Document 11/09/20 12:45 [facility] (Rec: 11/10/20 13:42 [facility] [id number]) Manual Assessments Soft Tissue Assessment Soft Tissue Mobility Assessment wide spread myofascial restrictions secondary to full body ratiation treament. The areas that affect Fay the most include her gastroc soleus and upper back and rib cage region. She is very restricted in her diaphragm, pec minor, lengthening of her calf into DF Joint Mobility Assessment Joint Mobility Assessment very poor ankle mobility, hypomobility of the ankle in all planes PT-OP-J Posture/Palpation/Skin Start: 11/09/20 10:26 Freq: Status: Active Protocol: Document 11/09/20 13:35 [facility] (Rec: 11/09/20 13:35 [facility] [id number]) Posture Evaluation Comments Posture Comments forward shoulder posture with kyphosis PT-OP-K Range of Motion Start: 11/09/20 10:26 Freq: Status: Active Protocol: Document 11/09/20 12:45 [facility] (Rec: 11/10/20 13:42 [facility] [id number]) Ankle and Foot Goniometric Range of Motion Ankle and Foot Right Ankle/Foot ROM WFL No Dorsiflexion with Knee Flexed 8 Dorsiflexion with Knee Extended 4 Plantarflexion 8 Inversion 8 Eversion 8 Left Ankle/Foot ROM WFL No Dorsiflexion with Knee Flexed 10 Dorsiflexion with Knee Extended 5 Plantarflexion 8 Inversion 8 Eversion 8 PT-OP-Q Treatments Start: 11/09/20 10:26 Freq: Status: Active Protocol: Document 12/06/20 12:58 [facility] (Rec: 12/06/20 13:05 [facility] [id number]) Therapeutic Exercises Supine Exercises diaphragmatic breathing Supine Exercise Name diaphragmatic breathing Reps/Minutes x 10 reps Comments seated inhale x 4 counts, exhale x 6 counts Sitting Exercises Scap retraction Sitting Exercise Name scap retraction, depression Side bilateral Reps/Minutes 5 sec hold x5 Other Exercises seated rows Equipment Used level 1 theraband Reps/Minutes 2 x 10 reps Manual Therapy Treatment Soft Tissue Mobilization Upper, middle traps Body Location B Mobilization Type Cross-Friction,Rolling Intensity/Depth Moderate Body Position Sitting Comments cued slow breaths and worked on diaphragmatic breathing in sitting B patellar tendon Body Location B Mobilization Type Cross-Friction Intensity/Depth Moderate Body Position Sitting Comments Long sitting Extra time spend over R patellar tendon to allow for elevation durign knee flexion. I can breath better. 1 Body Location B anterior and posterior shins /feet Mobilization Type Myofascial Release Intensity/Depth Superficial Body Position long sitting (rolled towel under B ischial tuberosities) Comments MFR was performed to B anterior and posterior shins and feet, PROM was performed at the ankles and feet Joint Mobilizations MTPs, intertarsals, calcaneus on talus/navicular Joint B Direction AP, med/lat Grade II Body Position Sitting Comments long sitting thoracic spine Joint PA glides in sitting Direction PA Grade II Body Position Sitting Comments pt had good tolerance today for seated thoracic mobilizations Patella mobes Joint B Direction med/lat/sup/inf Grade II Body Position Sitting Comments Long sitting. Manual Techniques 2 Type manual stretching for the gastroc/soleus complex Body Location B Body Position Sitting Comments long sitting 1 Type PROM stretches were performed at B ankles and feet, manual stretching Body Location B PF/ DF Body Position Sitting Comments improving ankle ROM with manual stretches PT-OP-T Assessment and Plan Start: 11/09/20 10:26 Freq: Status: Active Protocol: Document 12/06/20 12:58 [facility] (Rec: 12/06/20 13:05 [facility] [id number]) Physical Therapy Assessment Assessment Summary Assessment Treatment continues to emphasis manual work to improve circulation to the LE, calf stretching and working towards improved ankle ROM for gait. Fay stays following treatment for treadmill and today was able to walk x 20 min following. Fay would also benefit from continued balance training and LE strengthening. She becomes very short of breath so taking breaks inbetween exercises is needed. Physical Therapy Plan Next Visit Focus/Plan Next Note Type Treatment Note Next Visit Plan continue working to increase ankle ROM, improve calf flexibility, postural exercises and progress walking .
--- NOTE | 2020-12-09 16:17 | PT.OTN ---
Current Diagnoses Systemic sclerosis, unspecified (12/09/20) Unsteadiness on feet (12/09/20) Physical Therapy Treatment Note PT-OP-A Visit Information Start: 11/09/20 10:26 Freq: Status: Active Protocol: Document 12/09/20 13:49 [facility] (Rec: 12/09/20 16:17 [facility] [id number]) Out-Patient Physical Therapy Visit Information Visit Information Visit Type Treatment Note Visit Start Time 14:32 Visit Stop Time 15:15 Total Visit Minutes 43 Visit Number 8 PT-OP-B Current Condition Start: 11/09/20 10:26 Freq: Status: Active Protocol: Document 11/09/20 12:57 [facility] (Rec: 11/09/20 13:34 [facility] [id number]) Current Condition History of Current Condition Current Complaints painful ROM LE especially the ankles/feet,painful gait, decreased balance History of Current Condition Pt has a hisotry of scleroderma that affects her LE. This makes her legs so tight she has lost ROM in her ankles. She reports pain with walking, decresased balance and poor energy. She has been seen in PT years ago for help reducing tightness in her legs. She notes that symptms increased following a myocardial infacrtion in June of 2019. Fay reports for days before her heart attack she was having a buring pain in her chest, she was taken to the ER at [facility] and then sent to [facility]. She was transfered from [facility] to [facility] in [place]. She had 2 stents put in and then had a GI bleed. When she returned home and for awhile ( a week or two) she felt increased energy. But then it went away. Has new symptoms of psorasis and reports her legs feel very bound. Taking Consentyx the injection for Psorasis. The scleroderma in her feet and legs feels worse. She hasn't had treatment in so many years for her legs. She is taking blood thinners. SHe had been doing cardiac rehab and doing really good but had to stop due to covid 19 pandemic. She hasn't been walking as much as she had before and she reports 15-20 minutes is her walking max. Past medical history includes hx of cancer, depression, type II diabetes, dizzyness, memory loss, neuropathy, thyroid disorder, psychological disorder She is no longer doing cardiac rehab, she feels that she is losing her balance more and has lost strength. She is dropping things and knocking things over. 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 A cane helps but she hasn't attempted it for a long time. PT-OP-C Subjective Start: 11/09/20 10:26 Freq: Status: Active Protocol: Document 12/09/20 13:49 [facility] (Rec: 12/09/20 16:17 [id number]) OP-PT Subjective Patient Comments Patient Comments Im doing okay and im pretty much the same. PT-OP-F Manual Assessment Start: 11/09/20 10:26 Freq: Status: Active Protocol: Document 11/09/20 12:45 [facility] (Rec: 11/10/20 13:42 [facility] [id number]) Manual Assessments Soft Tissue Assessment Soft Tissue Mobility Assessment wide spread myofascial restrictions secondary to full body ratiation treament. The areas that affect Fay the most include her gastroc soleus and upper back and rib cage region. She is very restricted in her diaphragm, pec minor, lengthening of her calf into DF Joint Mobility Assessment Joint Mobility Assessment very poor ankle mobility, hypomobility of the ankle in all planes PT-OP-J Posture/Palpation/Skin Start: 11/09/20 10:26 Freq: Status: Active Protocol: Document 11/09/20 13:35 [facility] (Rec: 11/09/20 13:35 [facility] [id number]) Posture Evaluation Comments Posture Comments forward shoulder posture with kyphosis PT-OP-K Range of Motion Start: 11/09/20 10:26 Freq: Status: Active Protocol: Document 11/09/20 12:45 [facility] (Rec: 11/10/20 13:42 [facility] [id number]) Ankle and Foot Goniometric Range of Motion Ankle and Foot Right Ankle/Foot ROM WFL No Dorsiflexion with Knee Flexed 8 Dorsiflexion with Knee Extended 4 Plantarflexion 8 Inversion 8 Eversion 8 Left Ankle/Foot ROM WFL No Dorsiflexion with Knee Flexed 10 Dorsiflexion with Knee Extended 5 Plantarflexion 8 Inversion 8 Eversion 8 PT-OP-Q Treatments Start: 11/09/20 10:26 Freq: Status: Active Protocol: Document 12/09/20 13:49 (Rec: 12/09/20 16:17 [id number]) Cardio Equipment Treadmill Duration (Minutes) 10 Speed 1.5 Therapeutic Exercises Supine Exercises diaphragmatic breathing Supine Exercise Name diaphragmatic breathing Reps/Minutes x 10 reps Comments seated inhale x 4 counts, exhale x 6 counts Manual Therapy Treatment Soft Tissue Mobilization Upper, middle traps Body Location B Mobilization Type Cross-Friction,Rolling Intensity/Depth Moderate Body Position Sitting Comments cued slow breaths and worked on diaphragmatic breathing in sitting 1 Body Location B anterior and posterior shins /feet Mobilization Type Myofascial Release Intensity/Depth Superficial Body Position long sitting (rolled towel under B ischial tuberosities) Comments MFR was performed to B anterior and posterior shins and feet, PROM was performed at the ankles and feet Joint Mobilizations MTPs, intertarsals, calcaneus on talus/navicular Joint B Direction AP, med/lat Grade II Body Position Sitting Comments long sitting thoracic spine Joint PA glides in sitting Direction PA Grade II Body Position Sitting Comments pt had good tolerance today for seated thoracic mobilizations Manual Techniques 2 Type manual stretching for the gastroc/soleus complex Body Location B Body Position Sitting Comments long sitting 1 Type PROM stretches were performed at B ankles and feet, manual stretching Body Location B PF/ DF Body Position Sitting Comments improving ankle ROM with manual stretches PT-OP-T Assessment and Plan Start: 11/09/20 10:26 Freq: Status: Active Protocol: Document 12/09/20 13:49 (Rec: 12/09/20 16:17 [id number]) Physical Therapy Assessment Goals Four Impairment Fay is not currently engaging in a home exercise program balance/strength Short Term Goal (STG) Fay is instructed in a home strengthening program, balance exercises, postural exercises , and gentle stretches as we progress through therapy that she is able to do at home. STG Duration 4-8 weeks Three Impairment Pain prevents Fay from standing more than 10 min and walking > 1/4 mile Retirement Goal (LTG) Fay is able to increase her tolerance for standing to 30 minutes and walking 1/2 mile or greater at a time. 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 Pt does not seem to be SOB as much today. Physical Therapy Plan Frequency and Duration Frequency of Treatment 2x/Week Duration of Treatment 8 Plan of Care Start Date 11/09/20 Plan of Care End Date 01/04/21 Therapeutic Interventions Therapeutic Interventions Balance Training,Home Exercise Program,Manual Therapy, Neuromuscular Re-education, Patient/Caregiver Education, Self-Care/Home Management,Soft Tissue Mobilization, Therapeutic Exercises Next Visit Focus/Plan Next Note Type Treatment Note Next Visit Plan continue working to increase ankle ROM, improve calf flexibility, postural exercises and progress walking .
--- NOTE | 2020-12-13 17:02 | PT.OTN ---
Current Diagnoses Systemic sclerosis, unspecified (12/13/20) Unsteadiness on feet (12/13/20) Physical Therapy Treatment Note PT-OP-A Visit Information Start: 11/09/20 10:26 Freq: Status: Active Protocol: Document 12/13/20 16:59 [facility] (Rec: 12/13/20 17:02 [facility] [email or web address]) Out-Patient Physical Therapy Visit Information Visit Information Visit Type Treatment Note Visit Start Time 14:30 Visit Stop Time 15:15 Total Visit Minutes 45 Visit Number 9 PT-OP-B Current Condition Start: 11/09/20 10:26 Freq: Status: Active Protocol: Document 11/09/20 12:57 [facility] (Rec: 11/09/20 13:34 [facility] [id number]) Current Condition History of Current Condition Current Complaints painful ROM LE especially the ankles/feet,painful gait, decreased balance History of Current Condition Pt has a hisotry of scleroderma that affects her LE. This makes her legs so tight she has lost ROM in her ankles. She reports pain with walking, decresased balance and poor energy. She has been seen in PT years ago for help reducing tightness in her legs. She notes that symptms increased following a myocardial infacrtion in June of 2019. Fay reports for days before her heart attack she was having a buring pain in her chest, she was taken to the ER at [facility] and then sent to [facility] She was transfered from [facility] to [facility] in [place]. She had 2 stents put in and then had a GI bleed. When she returned home and for awhile ( a week or two) she felt increased energy. But then it went away. Has new symptoms of psorasis and reports her legs feel very bound. Taking Consentyx the injection for Psorasis. The scleroderma in her feet and legs feels worse. She hasn't had treatment in so many years for her legs. She is taking blood thinners. SHe had been doing cardiac rehab and doing really good but had to stop due to covid 19 pandemic. She hasn't been walking as much as she had before and she reports 15-20 minutes is her walking max. Past medical history includes hx of cancer, depression, type II diabetes, dizzyness, memory loss, neuropathy, thyroid disorder, psychological disorder She is no longer doing cardiac rehab, she feels that she is losing her balance more and has lost strength. She is dropping things and knocking things over. 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 A cane helps but she hasn't attempted it for a long time. PT-OP-C Subjective Start: 11/09/20 10:26 Freq: Status: Active Protocol: Document 12/13/20 16:59 [facility] (Rec: 12/13/20 17:02 [facility] [email or web address]) OP-PT Subjective Patient Comments Patient Comments pt notes she walked 16 minutes on the the treadmill after last visit PT-OP-F Manual Assessment Start: 11/09/20 10:26 Freq: Status: Active Protocol: Document 11/09/20 12:45 [facility] (Rec: 11/10/20 13:42 [facility] [email or web address]) Manual Assessments Soft Tissue Assessment Soft Tissue Mobility Assessment wide spread myofascial restrictions secondary to full body ratiation treament. The areas that affect Fay the most include her gastroc soleus and upper back and rib cage region. She is very restricted in her diaphragm, pec minor, lengthening of her calf into DF Joint Mobility Assessment Joint Mobility Assessment very poor ankle mobility, hypomobility of the ankle in all planes PT-OP-J Posture/Palpation/Skin Start: 11/09/20 10:26 Freq: Status: Active Protocol: Document 11/09/20 13:35 [facility] (Rec: 11/09/20 13:35 [facility] [id number]) Posture Evaluation Comments Posture Comments forward shoulder posture with kyphosis PT-OP-K Range of Motion Start: 11/09/20 10:26 Freq: Status: Active Protocol: Document 11/09/20 12:45 [facility] (Rec: 11/10/20 13:42 [facility] [email or web address]) Ankle and Foot Goniometric Range of Motion Ankle and Foot Right Ankle/Foot ROM WFL No Dorsiflexion with Knee Flexed 8 Dorsiflexion with Knee Extended 4 Plantarflexion 8 Inversion 8 Eversion 8 Left Ankle/Foot ROM WFL No Dorsiflexion with Knee Flexed 10 Dorsiflexion with Knee Extended 5 Plantarflexion 8 Inversion 8 Eversion 8 PT-OP-Q Treatments Start: 11/09/20 10:26 Freq: Status: Active Protocol: Document 12/13/20 16:59 [facility] (Rec: 12/13/20 17:02 [facility] [email or web address]) Manual Therapy Treatment Soft Tissue Mobilization Upper, middle traps Body Location B Mobilization Type Cross-Friction,Rolling Intensity/Depth Moderate Body Position Sitting Comments cued slow breaths and worked on diaphragmatic breathing in sitting B patellar tendon Body Location B Mobilization Type Cross-Friction Intensity/Depth Moderate Body Position Sitting Comments Long sitting Extra time spend over R patellar tendon to allow for elevation durign knee flexion. I can breath better. 1 Body Location B anterior and posterior shins /feet Mobilization Type Myofascial Release Intensity/Depth Superficial Body Position long sitting (rolled towel under B ischial tuberosities) Comments MFR was performed to B anterior and posterior shins and feet, PROM was performed at the ankles and feet Manual Techniques 2 Type manual stretching for the gastroc/soleus complex Body Location B Body Position Sitting Comments long sitting 1 Type PROM stretches were performed at B ankles and feet, manual stretching Body Location B PF/ DF Body Position Sitting Comments improving ankle ROM with manual stretches PT-OP-T Assessment and Plan Start: 11/09/20 10:26 Freq: Status: Active Protocol: Document 12/13/20 16:59 [facility] (Rec: 12/13/20 17:02 [facility] [email or web address]) Physical Therapy Assessment Assessment Summary Assessment continued to focus on release of the gastroc soleus and improving ankle ROM. PT was dizzy following her visit BP was checked and was 116/62. She felt her blood sugar may be low. Pt was encouraged to check her blood sugar.
--- NOTE | 2020-12-15 17:16 | PT.OTN ---
Current Diagnoses Systemic sclerosis, unspecified (12/15/20) Unsteadiness on feet (12/15/20) Physical Therapy Treatment Note PT-OP-A Visit Information Start: 11/09/20 10:26 Freq: Status: Active Protocol: Document 12/15/20 14:31 [facility] (Rec: 12/15/20 14:36 [facility] [id number]) Out-Patient Physical Therapy Visit Information Visit Information Visit Type Treatment Note Visit Start Time 14:30 Visit Stop Time 15:15 Total Visit Minutes 45 Visit Number 10 PT-OP-B Current Condition Start: 11/09/20 10:26 Freq: Status: Active Protocol: Document 11/09/20 12:57 [facility] (Rec: 11/09/20 13:34 [facility] [id number]) Current Condition History of Current Condition Current Complaints painful ROM LE especially the ankles/feet,painful gait, decreased balance History of Current Condition Pt has a hisotry of scleroderma that affects her LE. This makes her legs so tight she has lost ROM in her ankles. She reports pain with walking, decresased balance and poor energy. She has been seen in PT years ago for help reducing tightness in her legs. She notes that symptms increased following a myocardial infacrtion in June of 2019. Fay reports for days before her heart attack she was having a buring pain in her chest, she was taken to the ER at [facility] and then sent to [facility]. She was transfered from [facility] to [facility] in [place]. She had 2 stents put in and then had a GI bleed. When she returned home and for awhile ( a week or two) she felt increased energy. But then it went away. Has new symptoms of psorasis and reports her legs feel very bound. Taking Consentyx the injection for Psorasis. The scleroderma in her feet and legs feels worse. She hasn't had treatment in so many years for her legs. She is taking blood thinners. SHe had been doing cardiac rehab and doing really good but had to stop due to covid 19 pandemic. She hasn't been walking as much as she had before and she reports 15-20 minutes is her walking max. Past medical history includes hx of cancer, depression, type II diabetes, dizzyness, memory loss, neuropathy, thyroid disorder, psychological disorder She is no longer doing cardiac rehab, she feels that she is losing her balance more and has lost strength. She is dropping things and knocking things over. 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 A cane helps but she hasn't attempted it for a long time. PT-OP-C Subjective Start: 11/09/20 10:26 Freq: Status: Active Protocol: Document 12/15/20 14:30 [facility] (Rec: 12/15/20 17:15 [facility] [email or web address]) OP-PT Subjective Patient Comments Patient Comments pt notes today she is more short of breath today. She saw Dr. Schwartz yesterday and he did refer to her pulmonary rehab PT-OP-F Manual Assessment Start: 11/09/20 10:26 Freq: Status: Active Protocol: Document 11/09/20 12:45 [facility] (Rec: 11/10/20 13:42 [facility] [email or web address]) Manual Assessments Soft Tissue Assessment Soft Tissue Mobility Assessment wide spread myofascial restrictions secondary to full body ratiation treament. The areas that affect Fay the most include her gastroc soleus and upper back and rib cage region. She is very restricted in her diaphragm, pec minor, lengthening of her calf into DF Joint Mobility Assessment Joint Mobility Assessment very poor ankle mobility, hypomobility of the ankle in all planes PT-OP-J Posture/Palpation/Skin Start: 11/09/20 10:26 Freq: Status: Active Protocol: Document 11/09/20 13:35 [facility] (Rec: 11/09/20 13:35 [facility] [id number]) Posture Evaluation Comments Posture Comments forward shoulder posture with kyphosis PT-OP-K Range of Motion Start: 11/09/20 10:26 Freq: Status: Active Protocol: Document 11/09/20 12:45 [facility] (Rec: 11/10/20 13:42 [facility] [email or web address]) Ankle and Foot Goniometric Range of Motion Ankle and Foot Right Ankle/Foot ROM WFL No Dorsiflexion with Knee Flexed 8 Dorsiflexion with Knee Extended 4 Plantarflexion 8 Inversion 8 Eversion 8 Left Ankle/Foot ROM WFL No Dorsiflexion with Knee Flexed 10 Dorsiflexion with Knee Extended 5 Plantarflexion 8 Inversion 8 Eversion 8 PT-OP-Q Treatments Start: 11/09/20 10:26 Freq: Status: Active Protocol: Document 12/15/20 14:31 [facility] (Rec: 12/15/20 14:36 [facility] [id number]) Manual Therapy Treatment Soft Tissue Mobilization B patellar tendon Body Location B Mobilization Type Cross-Friction Intensity/Depth Moderate Body Position Sitting Comments Long sitting Extra time spend over R patellar tendon to allow for elevation durign knee flexion. I can breath better. 1 Body Location B anterior and posterior shins /feet Mobilization Type Myofascial Release Intensity/Depth Superficial Body Position long sitting (rolled towel under B ischial tuberosities) Comments MFR was performed to B anterior and posterior shins and feet, PROM was performed at the ankles and feet Joint Mobilizations MTPs, intertarsals, calcaneus on talus/navicular Joint B Direction AP, med/lat Grade II Body Position Sitting Comments long sitting Manual Techniques 2 Type manual stretching for the gastroc/soleus complex Body Location B Body Position Sitting Comments long sitting 1 Type PROM stretches were performed at B ankles and feet, manual stretching Body Location B PF/ DF Body Position Sitting Comments improving ankle ROM with manual stretches PT-OP-T Assessment and Plan Start: 11/09/20 10:26 Freq: Status: Active Protocol: Document 12/15/20 14:30 [facility] (Rec: 12/15/20 17:15 [facility] [email or web address]) Physical Therapy Assessment Assessment Summary Assessment worked on opening up the chest today due to SOB, No complaints of dizzyness today but pt did not feel like she could manage the treadmill. Physical Therapy Plan Frequency and Duration Frequency of Treatment 2x/Week Duration of Treatment 8 Plan of Care Start Date 11/09/20 Plan of Care End Date 01/04/21 Therapeutic Interventions Therapeutic Interventions Balance Training,Home Exercise Program,Manual Therapy, Neuromuscular Re-education, Patient/Caregiver Education, Self-Care/Home Management,Soft Tissue Mobilization, Therapeutic Exercises Next Visit Focus/Plan Next Note Type Treatment Note Next Visit Plan continue working to increase ankle ROM, improve calf flexibility, postural exercises and progress walking .
--- NOTE | 2020-12-20 17:24 | PT.OTN ---
Current Diagnoses Systemic sclerosis, unspecified (12/20/20) Unsteadiness on feet (12/20/20) Physical Therapy Treatment Note PT-OP-A Visit Information Start: 11/09/20 10:26 Freq: Status: Active Protocol: Document 12/20/20 15:16 [facility] (Rec: 12/20/20 15:22 [facility] [id number]) Out-Patient Physical Therapy Visit Information Visit Information Visit Type Treatment Note Visit Start Time 14:30 Visit Stop Time 15:15 Total Visit Minutes 45 Visit Number 11 PT-OP-B Current Condition Start: 11/09/20 10:26 Freq: Status: Active Protocol: Document 11/09/20 12:57 [facility] (Rec: 11/09/20 13:34 [facility] [id number]) Current Condition History of Current Condition Current Complaints painful ROM LE especially the ankles/feet,painful gait, decreased balance History of Current Condition Pt has a hisotry of scleroderma that affects her LE. This makes her legs so tight she has lost ROM in her ankles. She reports pain with walking, decresased balance and poor energy. She has been seen in PT years ago for help reducing tightness in her legs. She notes that symptms increased following a myocardial infacrtion in June of 2019. Fay reports for days before her heart attack she was having a buring pain in her chest, she was taken to the ER at [facility] and then sent to [facility]. She was transfered from [facility] to [email or web address] in [place]. She had 2 stents put in and then had a GI bleed. When she returned home and for awhile ( a week or two) she felt increased energy. But then it went away. Has new symptoms of psorasis and reports her legs feel very bound. Taking Consentyx the injection for Psorasis. The scleroderma in her feet and legs feels worse. She hasn't had treatment in so many years for her legs. She is taking blood thinners. SHe had been doing cardiac rehab and doing really good but had to stop due to covid 19 pandemic. She hasn't been walking as much as she had before and she reports 15-20 minutes is her walking max. Past medical history includes hx of cancer, depression, type II diabetes, dizzyness, memory loss, neuropathy, thyroid disorder, psychological disorder She is no longer doing cardiac rehab, she feels that she is losing her balance more and has lost strength. She is dropping things and knocking things over. 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 A cane helps but she hasn't attempted it for a long time. PT-OP-C Subjective Start: 11/09/20 10:26 Freq: Status: Active Protocol: Document 12/20/20 15:16 [facility] (Rec: 12/20/20 15:22 [facility] [id number]) OP-PT Subjective Patient Comments Patient Comments pt reports she didn't sleep well last night PT-OP-F Manual Assessment Start: 11/09/20 10:26 Freq: Status: Active Protocol: Document 11/09/20 12:45 [facility] (Rec: 11/10/20 13:42 [facility] [email or web address]) Manual Assessments Soft Tissue Assessment Soft Tissue Mobility Assessment wide spread myofascial restrictions secondary to full body ratiation treament. The areas that affect Fay the most include her gastroc soleus and upper back and rib cage region. She is very restricted in her diaphragm, pec minor, lengthening of her calf into DF Joint Mobility Assessment Joint Mobility Assessment very poor ankle mobility, hypomobility of the ankle in all planes PT-OP-J Posture/Palpation/Skin Start: 11/09/20 10:26 Freq: Status: Active Protocol: Document 11/09/20 13:35 [facility] (Rec: 11/09/20 13:35 [facility] [id number]) Posture Evaluation Comments Posture Comments forward shoulder posture with kyphosis PT-OP-K Range of Motion Start: 11/09/20 10:26 Freq: Status: Active Protocol: Document 11/09/20 12:45 [facility] (Rec: 11/10/20 13:42 [facility] [email or web address]) Ankle and Foot Goniometric Range of Motion Ankle and Foot Right Ankle/Foot ROM WFL No Dorsiflexion with Knee Flexed 8 Dorsiflexion with Knee Extended 4 Plantarflexion 8 Inversion 8 Eversion 8 Left Ankle/Foot ROM WFL No Dorsiflexion with Knee Flexed 10 Dorsiflexion with Knee Extended 5 Plantarflexion 8 Inversion 8 Eversion 8 PT-OP-Q Treatments Start: 11/09/20 10:26 Freq: Status: Active Protocol: Document 12/20/20 14:30 [facility] (Rec: 12/20/20 17:24 [facility] [email or web address]) Manual Therapy Treatment Soft Tissue Mobilization Upper, middle traps Body Location B Mobilization Type Cross-Friction,Rolling Intensity/Depth Moderate Body Position Sitting Comments cued slow breaths and worked on diaphragmatic breathing in sitting B patellar tendon Body Location B Mobilization Type Cross-Friction Intensity/Depth Moderate Body Position Sitting Comments Long sitting Extra time spend over R patellar tendon to allow for elevation durign knee flexion. I can breath better. 1 Body Location B anterior and posterior shins /feet Mobilization Type Myofascial Release Intensity/Depth Superficial Body Position long sitting (rolled towel under B ischial tuberosities) Comments MFR was performed to B anterior and posterior shins and feet, PROM was performed at the ankles and feet Joint Mobilizations MTPs, intertarsals, calcaneus on talus/navicular Joint B Direction AP, med/lat Grade II Body Position Sitting Comments long sitting thoracic spine Joint PA glides in sitting Direction PA Grade II Body Position Sitting Comments pt had good tolerance today for seated thoracic mobilizations Patella mobes Joint B Direction med/lat/sup/inf Grade II Body Position Sitting Comments Long sitting. Manual Techniques 2 Type manual stretching for the gastroc/soleus complex Body Location B Body Position Sitting Comments long sitting 1 Type PROM stretches were performed at B ankles and feet, manual stretching Body Location B PF/ DF Body Position Sitting Comments improving ankle ROM with manual stretches PT-OP-T Assessment and Plan Start: 11/09/20 10:26 Freq: Status: Active Protocol: Document 12/20/20 14:30 [facility] (Rec: 12/20/20 17:22 [facility] [email or web address]) Physical Therapy Assessment Assessment Summary Assessment continued to work on chest opening and improved ROM of the ankles and mobiilty of the calf muscles. Fay was able to walk x 15 minutes on the treadmill following her visit today Physical Therapy Plan Frequency and Duration Frequency of Treatment 2x/Week Duration of Treatment 8 Plan of Care Start Date 11/09/20 Plan of Care End Date 01/04/21 Therapeutic Interventions Therapeutic Interventions Balance Training,Home Exercise Program,Manual Therapy, Neuromuscular Re-education, Patient/Caregiver Education, Self-Care/Home Management,Soft Tissue Mobilization, Therapeutic Exercises Next Visit Focus/Plan Next Note Type Treatment Note Next Visit Plan continue working to increase ankle ROM, improve calf flexibility, postural exercises and progress walking .
--- NOTE | 2020-12-22 17:29 | PT.OTN ---
Current Diagnoses Systemic sclerosis, unspecified (12/22/20) Unsteadiness on feet (12/22/20) Physical Therapy Treatment Note PT-OP-A Visit Information Start: 11/09/20 10:26 Freq: Status: Active Protocol: Document 12/22/20 14:38 [facility] (Rec: 12/22/20 14:39 [facility] [id number]) Out-Patient Physical Therapy Visit Information Visit Information Visit Type Treatment Note Visit Start Time 14:30 Visit Stop Time 15:15 Total Visit Minutes 45 Visit Number 12 PT-OP-B Current Condition Start: 11/09/20 10:26 Freq: Status: Active Protocol: Document 11/09/20 12:57 [facility] (Rec: 11/09/20 13:34 [facility] [id number]) Current Condition History of Current Condition Current Complaints painful ROM LE especially the ankles/feet,painful gait, decreased balance History of Current Condition Pt has a hisotry of scleroderma that affects her LE. This makes her legs so tight she has lost ROM in her ankles. She reports pain with walking, decresased balance and poor energy. She has been seen in PT years ago for help reducing tightness in her legs. She notes that symptms increased following a myocardial infacrtion in June of 2019. Fay reports for days before her heart attack she was having a buring pain in her chest, she was taken to the ER at [facility] and then sent to [facility]. She was transfered from [facility] to [facility] in [place]. She had 2 stents put in and then had a GI bleed. When she returned home and for awhile ( a week or two) she felt increased energy. But then it went away. Has new symptoms of psorasis and reports her legs feel very bound. Taking Consentyx the injection for Psorasis. The scleroderma in her feet and legs feels worse. She hasn't had treatment in so many years for her legs. She is taking blood thinners. SHe had been doing cardiac rehab and doing really good but had to stop due to covid 19 pandemic. She hasn't been walking as much as she had before and she reports 15-20 minutes is her walking max. Past medical history includes hx of cancer, depression, type II diabetes, dizzyness, memory loss, neuropathy, thyroid disorder, psychological disorder She is no longer doing cardiac rehab, she feels that she is losing her balance more and has lost strength. She is dropping things and knocking things over. 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 A cane helps but she hasn't attempted it for a long time. PT-OP-C Subjective Start: 11/09/20 10:26 Freq: Status: Active Protocol: Document 12/22/20 14:38 [facility] (Rec: 12/22/20 14:39 [facility] [id number]) OP-PT Subjective Patient Comments Patient Comments pt reports she walked 15 min ylast visit following her appt . PT-OP-F Manual Assessment Start: 11/09/20 10:26 Freq: Status: Active Protocol: Document 11/09/20 12:45 [facility] (Rec: 11/10/20 13:42 [facility] [email or web address]) Manual Assessments Soft Tissue Assessment Soft Tissue Mobility Assessment wide spread myofascial restrictions secondary to full body ratiation treament. The areas that affect Fay the most include her gastroc soleus and upper back and rib cage region. She is very restricted in her diaphragm, pec minor, lengthening of her calf into DF Joint Mobility Assessment Joint Mobility Assessment very poor ankle mobility, hypomobility of the ankle in all planes PT-OP-J Posture/Palpation/Skin Start: 11/09/20 10:26 Freq: Status: Active Protocol: Document 11/09/20 13:35 [facility] (Rec: 11/09/20 13:35 [facility] [id number]) Posture Evaluation Comments Posture Comments forward shoulder posture with kyphosis PT-OP-K Range of Motion Start: 11/09/20 10:26 Freq: Status: Active Protocol: Document 11/09/20 12:45 [facility] (Rec: 11/10/20 13:42 [facility] [email or web address]) Ankle and Foot Goniometric Range of Motion Ankle and Foot Right Ankle/Foot ROM WFL No Dorsiflexion with Knee Flexed 8 Dorsiflexion with Knee Extended 4 Plantarflexion 8 Inversion 8 Eversion 8 Left Ankle/Foot ROM WFL No Dorsiflexion with Knee Flexed 10 Dorsiflexion with Knee Extended 5 Plantarflexion 8 Inversion 8 Eversion 8 PT-OP-Q Treatments Start: 11/09/20 10:26 Freq: Status: Active Protocol: Document 12/22/20 14:30 [facility] (Rec: 12/22/20 17:29 [facility] [email or web address]) Manual Therapy Treatment Soft Tissue Mobilization Upper, middle traps Body Location B Mobilization Type Cross-Friction,Rolling Intensity/Depth Moderate Body Position Sitting Comments cued slow breaths and worked on diaphragmatic breathing in sitting B patellar tendon Body Location B Mobilization Type Cross-Friction Intensity/Depth Moderate Body Position Sitting Comments Long sitting Extra time spend over R patellar tendon to allow for elevation durign knee flexion. I can breath better. 1 Body Location B anterior and posterior shins /feet Mobilization Type Myofascial Release Intensity/Depth Superficial Body Position long sitting (rolled towel under B ischial tuberosities) Comments MFR was performed to B anterior and posterior shins and feet, PROM was performed at the ankles and feet Joint Mobilizations MTPs, intertarsals, calcaneus on talus/navicular Joint B Direction AP, med/lat Grade II Body Position Sitting Comments long sitting thoracic spine Joint PA glides in sitting Direction PA Grade II Body Position Sitting Comments pt had good tolerance today for seated thoracic mobilizations Patella mobes Joint B Direction med/lat/sup/inf Grade II Body Position Sitting Comments Long sitting. R GH Jt AP Joint R Direction proximal humeral AP Grade II Body Position Sitting Reps/Duration x5 Manual Techniques 2 Type manual stretching for the gastroc/soleus complex Body Location B Body Position Sitting Comments long sitting 1 Type PROM stretches were performed at B ankles and feet, manual stretching Body Location B PF/ DF Body Position Sitting Comments improving ankle ROM with manual stretches PT-OP-T Assessment and Plan Start: 11/09/20 10:26 Freq: Status: Active Protocol: Document 12/22/20 14:30 [facility] (Rec: 12/22/20 17:29 [facility] [email or web address]) Physical Therapy Assessment Assessment Summary Assessment pt's skin is improving with new medication she is on for psorasis. She walked x 14 min following treatment today
--- NOTE | 2020-12-26 11:24 | PT.OTN ---
Current Diagnoses Systemic sclerosis, unspecified (12/26/20) Unsteadiness on feet (12/26/20) Physical Therapy Treatment Note PT-OP-A Visit Information Start: 11/09/20 10:26 Freq: Status: Active Protocol: Document 12/26/20 08:55 [facility] (Rec: 12/26/20 11:24 HH [id number]) Out-Patient Physical Therapy Visit Information Visit Information Visit Type Treatment Note Visit Start Time 09:45 Visit Stop Time 10:30 Total Visit Minutes 45 Visit Number 13 PT-OP-B Current Condition Start: 11/09/20 10:26 Freq: Status: Active Protocol: Document 11/09/20 12:57 [facility] (Rec: 11/09/20 13:34 [facility] [id number]) Current Condition History of Current Condition Current Complaints painful ROM LE especially the ankles/feet,painful gait, decreased balance History of Current Condition Pt has a hisotry of scleroderma that affects her LE. This makes her legs so tight she has lost ROM in her ankles. She reports pain with walking, decresased balance and poor energy. She has been seen in PT years ago for help reducing tightness in her legs. She notes that symptms increased following a myocardial infacrtion in June of 2019. Fay reports for days before her heart attack she was having a buring pain in her chest, she was taken to the ER at [facility] and then sent to [facility]. She was transfered from [facility] to [facility] in [place]. She had 2 stents put in and then had a GI bleed. When she returned home and for awhile ( a week or two) she felt increased energy. But then it went away. Has new symptoms of psorasis and reports her legs feel very bound. Taking Consentyx the injection for Psorasis. The scleroderma in her feet and legs feels worse. She hasn't had treatment in so many years for her legs. She is taking blood thinners. SHe had been doing cardiac rehab and doing really good but had to stop due to covid 19 pandemic. She hasn't been walking as much as she had before and she reports 15-20 minutes is her walking max. Past medical history includes hx of cancer, depression, type II diabetes, dizzyness, memory loss, neuropathy, thyroid disorder, psychological disorder She is no longer doing cardiac rehab, she feels that she is losing her balance more and has lost strength. She is dropping things and knocking things over. 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 A cane helps but she hasn't attempted it for a long time. PT-OP-C Subjective Start: 11/09/20 10:26 Freq: Status: Active Protocol: Document 12/26/20 08:55 HH (Rec: 12/26/20 11:24 HH [id number]) OP-PT Subjective Patient Comments Patient Comments I walked 13 mins last time i noticed that my hip and my leg has been hurting a bit since i started treatmill training. PT-OP-F Manual Assessment Start: 11/09/20 10:26 Freq: Status: Active Protocol: Document 11/09/20 12:45 [facility] (Rec: 11/10/20 13:42 [facility] [email or web address]) Manual Assessments Soft Tissue Assessment Soft Tissue Mobility Assessment wide spread myofascial restrictions secondary to full body ratiation treament. The areas that affect Fay the most include her gastroc soleus and upper back and rib cage region. She is very restricted in her diaphragm, pec minor, lengthening of her calf into DF Joint Mobility Assessment Joint Mobility Assessment very poor ankle mobility, hypomobility of the ankle in all planes PT-OP-J Posture/Palpation/Skin Start: 11/09/20 10:26 Freq: Status: Active Protocol: Document 11/09/20 13:35 [facility] (Rec: 11/09/20 13:35 [facility] [id number]) Posture Evaluation Comments Posture Comments forward shoulder posture with kyphosis PT-OP-K Range of Motion Start: 11/09/20 10:26 Freq: Status: Active Protocol: Document 11/09/20 12:45 [facility] (Rec: 11/10/20 13:42 [facility] [email or web address]) Ankle and Foot Goniometric Range of Motion Ankle and Foot Right Ankle/Foot ROM WFL No Dorsiflexion with Knee Flexed 8 Dorsiflexion with Knee Extended 4 Plantarflexion 8 Inversion 8 Eversion 8 Left Ankle/Foot ROM WFL No Dorsiflexion with Knee Flexed 10 Dorsiflexion with Knee Extended 5 Plantarflexion 8 Inversion 8 Eversion 8 PT-OP-Q Treatments Start: 11/09/20 10:26 Freq: Status: Active Protocol: Document 12/26/20 08:55 HH (Rec: 12/26/20 11:24 [id number]) Cardio Equipment Treadmill Duration (Minutes) 10 Speed 1.5 Manual Therapy Treatment Soft Tissue Mobilization Upper, middle traps Body Location B Mobilization Type Cross-Friction,Rolling Intensity/Depth Moderate Body Position Sitting Comments cued slow breaths and worked on diaphragmatic breathing in sitting B patellar tendon Body Location B Mobilization Type Cross-Friction Intensity/Depth Moderate Body Position Sitting Comments Long sitting Extra time spend over R patellar tendon to allow for elevation durign knee flexion. I can breath better. R pec, coracobrachialis Body Location R in sitting Mobilization Type Cross-Friction,Myofascial Release Intensity/Depth Moderate Body Position Sitting 1 Body Location B anterior and posterior shins /feet Mobilization Type Myofascial Release Intensity/Depth Superficial Body Position long sitting (rolled towel under B ischial tuberosities) Comments MFR was performed to B anterior and posterior shins and feet, PROM was performed at the ankles and feet Joint Mobilizations MTPs, intertarsals, calcaneus on talus/navicular Joint B Direction AP, med/lat Grade II Body Position Sitting Comments long sitting Manual Techniques 2 Type manual stretching for the gastroc/soleus complex Body Location B Body Position Sitting Comments long sitting 1 Type PROM stretches were performed at B ankles and feet, manual stretching Body Location B PF/ DF Body Position Sitting Comments improving ankle ROM with manual stretches PT-OP-T Assessment and Plan Start: 11/09/20 10:26 Freq: Status: Active Protocol: Document 12/26/20 08:55 [facility] (Rec: 12/26/20 11:24 [id number]) Physical Therapy Assessment Goals Four Impairment Fay is not currently engaging in a home exercise program balance/strength Short Term Goal (STG) Fay is instructed in a home strengthening program, balance exercises, postural exercises , and gentle stretches as we progress through therapy that she is able to do at home. STG Duration 4-8 weeks Three Impairment Pain prevents Fay from standing more than 10 min and walking > 1/4 mile Gold Leaf Roller Goal (LTG) Fay is able to increase her tolerance for standing to 30 minutes and walking 1/2 mile or greater at a time. Shortness of breath she had experienced has decreased Two Impairment Limited ankle ROM creating difficulty with gait and balance activities Jail Goal (LTG) Fay demonstrates a improved in ankle ROM by at least 5 degrees for DF/PF/INV/EVR to assist with balance and gait activities LTG Duration 8 weeks One Impairment Pain rated 7/10 in B LE Short Term Goal (STG) Fay has a reduction in pain to 4-5/10 with manual therapy and ROM exercises Gold Leaf Roller Goal (LTG) With manual therapy techniques and a home stretching/ exercise program Fay is able to reduce her pain from 7/10 to 2-3/10 Assessment Summary Assessment Pt stated she is going to have pulmonary function test soon to see if she needs further cardiacpulmonary rehab. Pt reports she has been able to complete 10-15 minutes on treadmill before she gets very fatigue. Pt pearl session well today. Physical Therapy Plan Frequency and Duration Frequency of Treatment 2x/Week Duration of Treatment 8 Plan of Care Start Date 11/09/20 Plan of Care End Date 01/04/21 Therapeutic Interventions Therapeutic Interventions Balance Training,Home Exercise Program,Manual Therapy, Neuromuscular Re-education, Patient/Caregiver Education, Self-Care/Home Management,Soft Tissue Mobilization, Therapeutic Exercises Next Visit Focus/Plan Next Note Type Treatment Note Next Visit Plan continue working to increase ankle ROM, improve calf flexibility, postural exercises and progress walking .
--- NOTE | 2021-01-03 16:22 | PT.OTN ---
Current Diagnoses Systemic sclerosis, unspecified (01/03/21) Unsteadiness on feet (01/03/21) Physical Therapy Treatment Note PT-OP-A Visit Information Start: 11/09/20 10:26 Freq: Status: Active Protocol: Document 01/03/21 14:27 HH (Rec: 01/03/21 16:22 HH [id number]) Out-Patient Physical Therapy Visit Information Visit Information Visit Type Treatment Note Visit Start Time 14:30 Visit Stop Time 15:15 Total Visit Minutes 45 Visit Number 14 PT-OP-B Current Condition Start: 11/09/20 10:26 Freq: Status: Active Protocol: Document 11/09/20 12:57 [facility] (Rec: 11/09/20 13:34 [facility] [id number]) Current Condition History of Current Condition Current Complaints painful ROM LE especially the ankles/feet,painful gait, decreased balance History of Current Condition Pt has a hisotry of scleroderma that affects her LE. This makes her legs so tight she has lost ROM in her ankles. She reports pain with walking, decresased balance and poor energy. She has been seen in PT years ago for help reducing tightness in her legs. She notes that symptms increased following a myocardial infacrtion in June of 2019. Fay reports for days before her heart attack she was having a buring pain in her chest, she was taken to the ER at [facility] and then sent to [facility]. She was transfered from [facility] to [facility] in [place]. She had 2 stents put in and then had a GI bleed. When she returned home and for awhile ( a week or two) she felt increased energy. But then it went away. Has new symptoms of psorasis and reports her legs feel very bound. Taking Consentyx the injection for Psorasis. The scleroderma in her feet and legs feels worse. She hasn't had treatment in so many years for her legs. She is taking blood thinners. SHe had been doing cardiac rehab and doing really good but had to stop due to covid 19 pandemic. She hasn't been walking as much as she had before and she reports 15-20 minutes is her walking max. Past medical history includes hx of cancer, depression, type II diabetes, dizzyness, memory loss, neuropathy, thyroid disorder, psychological disorder She is no longer doing cardiac rehab, she feels that she is losing her balance more and has lost strength. She is dropping things and knocking things over. 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 A cane helps but she hasn't attempted it for a long time. PT-OP-C Subjective Start: 11/09/20 10:26 Freq: Status: Active Protocol: Document 01/03/21 14:27 HH (Rec: 01/03/21 16:22 HH [id number]) OP-PT Subjective Patient Comments Patient Comments I did 13 mins last time on the treatmill. I think im walking better that i almost feel normal. I dont feel as tippy PT-OP-F Manual Assessment Start: 11/09/20 10:26 Freq: Status: Active Protocol: Document 11/09/20 12:45 [facility] (Rec: 11/10/20 13:42 [facility] [email or web address]) Manual Assessments Soft Tissue Assessment Soft Tissue Mobility Assessment wide spread myofascial restrictions secondary to full body ratiation treament. The areas that affect Fay the most include her gastroc soleus and upper back and rib cage region. She is very restricted in her diaphragm, pec minor, lengthening of her calf into DF Joint Mobility Assessment Joint Mobility Assessment very poor ankle mobility, hypomobility of the ankle in all planes PT-OP-J Posture/Palpation/Skin Start: 11/09/20 10:26 Freq: Status: Active Protocol: Document 11/09/20 13:35 [facility] (Rec: 11/09/20 13:35 [facility] [id number]) Posture Evaluation Comments Posture Comments forward shoulder posture with kyphosis PT-OP-K Range of Motion Start: 11/09/20 10:26 Freq: Status: Active Protocol: Document 11/09/20 12:45 [facility] (Rec: 11/10/20 13:42 [facility] [email or web address]) Ankle and Foot Goniometric Range of Motion Ankle and Foot Right Ankle/Foot ROM WFL No Dorsiflexion with Knee Flexed 8 Dorsiflexion with Knee Extended 4 Plantarflexion 8 Inversion 8 Eversion 8 Left Ankle/Foot ROM WFL No Dorsiflexion with Knee Flexed 10 Dorsiflexion with Knee Extended 5 Plantarflexion 8 Inversion 8 Eversion 8 PT-OP-Q Treatments Start: 11/09/20 10:26 Freq: Status: Active Protocol: Document 01/03/21 14:27 (Rec: 01/03/21 16:22 [id number]) Cardio Equipment Treadmill Duration (Minutes) 13 Speed 1.5 Manual Therapy Treatment Soft Tissue Mobilization Upper, middle traps Body Location B Mobilization Type Cross-Friction,Rolling Intensity/Depth Moderate Body Position Sitting Comments cued slow breaths and worked on diaphragmatic breathing in sitting B patellar tendon Body Location B Mobilization Type Cross-Friction Intensity/Depth Moderate Body Position Sitting Comments Long sitting Extra time spend over R patellar tendon to allow for elevation durign knee flexion. I can breath better. Joint Mobilizations MTPs, intertarsals, calcaneus on talus/navicular Joint B Direction AP, med/lat Grade II Body Position Sitting Comments long sitting thoracic spine Joint PA glides in sitting Direction PA Grade II Body Position Sitting Comments pt had good tolerance today for seated thoracic mobilizations Manual Techniques 2 Type manual stretching for the gastroc/soleus complex Body Location B Body Position Sitting Comments long sitting 1 Type PROM stretches were performed at B ankles and feet, manual stretching Body Location B PF/ DF Body Position Sitting Comments improving ankle ROM with manual stretches PT-OP-T Assessment and Plan Start: 11/09/20 10:26 Freq: Status: Active Protocol: Document 01/03/21 14:27 (Rec: 01/03/21 16:22 [id number]) Physical Therapy Assessment Goals Four Impairment Fay is not currently engaging in a home exercise program balance/strength Short Term Goal (STG) Fay is instructed in a home strengthening program, balance exercises, postural exercises , and gentle stretches as we progress through therapy that she is able to do at home. STG Duration 4-8 weeks Three Impairment Pain prevents Fay from standing more than 10 min and walking > 1/4 mile [place]wn Trawler Hand Goal (LTG) Fay is able to increase her tolerance for standing to 30 minutes and walking 1/2 mile or greater at a time. Shortness of breath she had experienced has decreased Two Impairment Limited ankle ROM creating difficulty with gait and balance activities [place]wn Trawler Hand Goal (LTG) Fay demonstrates a improved in ankle ROM by at least 5 degrees for DF/PF/INV/EVR to assist with balance and gait activities LTG Duration 8 weeks One Impairment Pain rated 7/10 in B LE Short Term Goal (STG) Fay has a reduction in pain to 4-5/10 with manual therapy and ROM exercises Usp Goal (LTG) With manual therapy techniques and a home stretching/ exercise program Fay is able to reduce her pain from 7/10 to 2-3/10 Assessment Summary Assessment pt stated she has been having better balance and walking ability. Might consider adding balancing therex next visit. Will update POC as well. Physical Therapy Plan Frequency and Duration Frequency of Treatment 2x/Week Duration of Treatment 8 Plan of Care Start Date 11/09/20 Plan of Care End Date 01/04/21 Therapeutic Interventions Therapeutic Interventions Balance Training,Home Exercise Program,Manual Therapy, Neuromuscular Re-education, Patient/Caregiver Education, Self-Care/Home Management,Soft Tissue Mobilization, Therapeutic Exercises Discharge Physical Therapy Discharge Reasons Plateau in Progress Next Visit Focus/Plan Next Note Type Progress Note Next Visit Plan continue working to increase ankle ROM, improve calf flexibility, postural exercises and progress walking .
--- NOTE | 2021-01-10 16:26 | PT.OTN ---
Current Diagnoses Systemic sclerosis, unspecified (01/10/21) Unsteadiness on feet (01/10/21) Physical Therapy Treatment Note PT-OP-A Visit Information Start: 11/09/20 10:26 Freq: Status: Active Protocol: Document 01/10/21 13:03 HH (Rec: 01/10/21 16:26 HH [id number]) Out-Patient Physical Therapy Visit Information Visit Information Visit Type Treatment Note Visit Start Time 13:46 Visit Stop Time 14:30 Total Visit Minutes 44 Visit Number 15 PT-OP-B Current Condition Start: 11/09/20 10:26 Freq: Status: Active Protocol: Document 11/09/20 12:57 AMH (Rec: 11/09/20 13:34 AMH [id number]) Current Condition History of Current Condition Current Complaints painful ROM LE especially the ankles/feet,painful gait, decreased balance History of Current Condition Pt has a hisotry of scleroderma that affects her LE. This makes her legs so tight she has lost ROM in her ankles. She reports pain with walking, decresased balance and poor energy. She has been seen in PT years ago for help reducing tightness in her legs. She notes that symptms increased following a myocardial infacrtion in June of 2019. Fay reports for days before her heart attack she was having a buring pain in her chest, she was taken to the ER at [facility] and then sent to [facility]. She was transfered from [facility] to [facility] in [place]. She had 2 stents put in and then had a GI bleed. When she returned home and for awhile ( a week or two) she felt increased energy. But then it went away. Has new symptoms of psorasis and reports her legs feel very bound. Taking Consentyx the injection for Psorasis. The scleroderma in her feet and legs feels worse. She hasn't had treatment in so many years for her legs. She is taking blood thinners. SHe had been doing cardiac rehab and doing really good but had to stop due to covid 19 pandemic. She hasn't been walking as much as she had before and she reports 15-20 minutes is her walking max. Past medical history includes hx of cancer, depression, type II diabetes, dizzyness, memory loss, neuropathy, thyroid disorder, psychological disorder She is no longer doing cardiac rehab, she feels that she is losing her balance more and has lost strength. She is dropping things and knocking things over. 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 A cane helps but she hasn't attempted it for a long time. PT-OP-C Subjective Start: 11/09/20 10:26 Freq: Status: Active Protocol: Document 01/10/21 13:03 HH (Rec: 01/10/21 16:26 [id number]) OP-PT Subjective Patient Comments Patient Comments I walked 15 mins on treadmill last time. Im wobbly today and yesterday and i dont know why PT-OP-F Manual Assessment Start: 11/09/20 10:26 Freq: Status: Active Protocol: Document 11/09/20 12:45 AMH (Rec: 11/10/20 13:42 AMH [email or web address]) Manual Assessments Soft Tissue Assessment Soft Tissue Mobility Assessment wide spread myofascial restrictions secondary to full body ratiation treament. The areas that affect Fay the most include her gastroc soleus and upper back and rib cage region. She is very restricted in her diaphragm, pec minor, lengthening of her calf into DF Joint Mobility Assessment Joint Mobility Assessment very poor ankle mobility, hypomobility of the ankle in all planes PT-OP-J Posture/Palpation/Skin Start: 11/09/20 10:26 Freq: Status: Active Protocol: Document 11/09/20 13:35 AMH (Rec: 11/09/20 13:35 AMH [id number]) Posture Evaluation Comments Posture Comments forward shoulder posture with kyphosis PT-OP-K Range of Motion Start: 11/09/20 10:26 Freq: Status: Active Protocol: Document 11/09/20 12:45 AMH (Rec: 11/10/20 13:42 AMH [id number]) Ankle and Foot Goniometric Range of Motion Ankle and Foot Right Ankle/Foot ROM WFL No Dorsiflexion with Knee Flexed 8 Dorsiflexion with Knee Extended 4 Plantarflexion 8 Inversion 8 Eversion 8 Left Ankle/Foot ROM WFL No Dorsiflexion with Knee Flexed 10 Dorsiflexion with Knee Extended 5 Plantarflexion 8 Inversion 8 Eversion 8 PT-OP-Q Treatments Start: 11/09/20 10:26 Freq: Status: Active Protocol: Document 01/10/21 13:03 (Rec: 01/10/21 16:26 [id number]) Cardio Equipment Treadmill Duration (Minutes) 15 Speed 1.5 Manual Therapy Treatment Soft Tissue Mobilization Upper, middle traps Body Location B Mobilization Type Cross-Friction,Rolling Intensity/Depth Moderate Body Position Sitting Comments cued slow breaths and worked on diaphragmatic breathing in sitting B patellar tendon Body Location B Mobilization Type Cross-Friction Intensity/Depth Moderate Body Position Sitting Comments Long sitting Extra time spend over R patellar tendon to allow for elevation durign knee flexion. I can breath better. R pec, coracobrachialis Body Location R in sitting Mobilization Type Cross-Friction,Myofascial Release Intensity/Depth Moderate Body Position Sitting Joint Mobilizations MTPs, intertarsals, calcaneus on talus/navicular Joint B Direction AP, med/lat Grade II Body Position Sitting Comments long sitting thoracic spine Joint PA glides in sitting Direction PA Grade II Body Position Sitting Comments pt had good tolerance today for seated thoracic mobilizations PT-OP-T Assessment and Plan Start: 11/09/20 10:26 Freq: Status: Active Protocol: Document 01/10/21 13:03 (Rec: 01/10/21 16:26 [id number]) Physical Therapy Assessment Goals Four Impairment Fay is not currently engaging in a home exercise program balance/strength Short Term Goal (STG) Fay is instructed in a home strengthening program, balance exercises, postural exercises , and gentle stretches as we progress through therapy that she is able to do at home. STG Duration 4-8 weeks Intermediate Goal (LTG) 01/10 pt has been doing tennis ball release, scap retraction. Three Impairment Pain prevents Fay from standing more than 10 min and walking > 1/4 mile Short Term Goal (STG) 01/10 pt can tolerate about 10 mins of standing with shoes on . Pt can pearl 15 mins of walking on treadmill. Carton Forming Machine Operator Goal (LTG) Fay is able to increase her tolerance for standing to 30 minutes and walking 1/2 mile or greater at a time. Shortness of breath she had experienced has decreased Two Impairment Limited ankle ROM creating difficulty with gait and balance activities Short Term Goal (STG) 01/10 ankle ROM remains the same R DF 0 L DF -2 Carton Forming Machine Operator Goal (LTG) Fay demonstrates a improved in ankle ROM by at least 5 degrees for DF/PF/INV/EVR to assist with balance and gait activities LTG Duration 8 weeks One Impairment Pain rated 7/10 in B LE Short Term Goal (STG) 01/10 Fay has a reduction in pain to 4-5/10 with manual therapy and ROM exercises -04/09 if it's a bad day Carton Forming Machine Operator Goal (LTG) With manual therapy techniques and a home stretching/ exercise program Fay is able to reduce her pain from 7/10 to 2-3/10 Assessment Summary Assessment Pt stated she has been feeling more wobbly for the past two days but better after manual therapy today. Althought pt has not shown much improvements on ankle ROM, Pt has shown consistent tolerance (~13-15mins) while walking on treadmill. Pt believes participating PT is very beneficial to keep her mobile. Will start adding mobility ex for the next two months. Physical Therapy Plan Frequency and Duration Frequency of Treatment 2x/Week Duration of Treatment 8 Plan of Care Start Date 01/10/21 Plan of Care End Date 03/11/21 Therapeutic Interventions Therapeutic Interventions Balance Training,Home Exercise Program,Manual Therapy, Neuromuscular Re-education, Patient/Caregiver Education, Self-Care/Home Management,Soft Tissue Mobilization, Therapeutic Exercises Next Visit Focus/Plan Next Note Type Progress Note Next Visit Plan continue working to increase ankle ROM, improve calf flexibility, postural exercises and progress walking .
--- NOTE | 2021-01-10 16:30 | PT.OPPOC ---
Physical, Occupational & Speech Therapy At [facility] Current Diagnoses Systemic sclerosis, unspecified (01/24/21) Unsteadiness on feet (01/24/21) Visit Care Team Role Provider Type Timur Schwartz MD Attending Provider Physician Primary Care Provider Referring Provider Specialty: Internal Medicine Address: [address] [place] [address], [id number] Email: [email or web address] Plan Of Care PT-OP-T Assessment and Plan Start: 11/09/20 10:26 Freq: Status: Active Protocol: Document 01/24/21 13:03 (Rec: 01/10/21 16:26 [id number]) Physical Therapy Assessment Goals Four Impairment Fay is not currently engaging in a home exercise program balance/strength Short Term Goal (STG) Fay is instructed in a home strengthening program, balance exercises, postural exercises , and gentle stretches as we progress through therapy that she is able to do at home. STG Duration 4-8 weeks Detention Goal (LTG) 01/10 pt has been doing tennis ball release, scap retraction. Three Impairment Pain prevents Fay from standing more than 10 min and walking > 1/4 mile Short Term Goal (STG) 01/10 pt can tolerate about 10 mins of standing with shoes on . Pt can pearl 15 mins of walking on treadmill. Traffic Maintenance Supervisor Goal (LTG) Fay is able to increase her tolerance for standing to 30 minutes and walking 1/2 mile or greater at a time. Shortness of breath she had experienced has decreased Two Impairment Limited ankle ROM creating difficulty with gait and balance activities Short Term Goal (STG) 01/10 ankle ROM remains the same R DF 0 L DF -2 Traffic Maintenance Supervisor Goal (LTG) Fay demonstrates a improved in ankle ROM by at least 5 degrees for DF/PF/INV/EVR to assist with balance and gait activities LTG Duration 8 weeks One Impairment Pain rated 7/10 in B LE Short Term Goal (STG) 01/10 Fay has a reduction in pain to 4-5/10 with manual therapy and ROM exercises -04/09 if it's a bad day Traffic Maintenance Supervisor Goal (LTG) With manual therapy techniques and a home stretching/ exercise program Fay is able to reduce her pain from 7/10 to 2-3/10 Assessment Summary Assessment Pt stated she has been feeling more wobbly for the past two days but better after manual therapy today. Although pt has not shown much improvements on ankle ROM, Pt has shown consistent tolerance (~13- 15mins) while walking on treadmill. Pt believes participating PT is very beneficial to keep her mobile. She is also going to participate pulmonary rehab soon to optimize her functional endurance and mobility. Will extend her rehab POC for another 2 months to monitor her progress on both sides prior to DC. Physical Therapy Plan Frequency and Duration Frequency of Treatment 2x/Week Duration of Treatment 8 Plan of Care Start Date 01/10/21 Plan of Care End Date 03/11/21 Therapeutic Interventions Therapeutic Interventions Balance Training,Home Exercise Program,Manual Therapy, Neuromuscular Re-education, Patient/Caregiver Education, Self-Care/Home Management,Soft Tissue Mobilization, Therapeutic Exercises Next Visit Focus/Plan Next Note Type Progress Note Next Visit Plan continue working to increase ankle ROM, improve calf flexibility, postural exercises and progress walking . Plan of Care Dates Plan of Care Start Date 01/10/21 Plan of Care End Date 03/11/21 Electronically Signed by: Ana Maria Rosado PT 01/24/21 [id number] Please Sign and Return: I have reviewed this Plan of Care and certify that the skilled therapy services above are required to meet the patient?s needs. Physician Signature Date Printed Name and Credentials Clinical Instructor Signature Printed Name and Credentials
--- NOTE | 2021-01-13 16:20 | PT.OTN ---
Current Diagnoses Systemic sclerosis, unspecified (01/13/21) Unsteadiness on feet (01/13/21) Physical Therapy Treatment Note PT-OP-A Visit Information Start: 11/09/20 10:26 Freq: Status: Active Protocol: Document 01/13/21 15:14 HH (Rec: 01/13/21 16:20 HH [id number]) Out-Patient Physical Therapy Visit Information Visit Information Visit Type Treatment Note Visit Start Time 15:16 Visit Stop Time 16:00 Total Visit Minutes 44 Visit Number 16 Number of SOLAR APPLICATIONS DEVELOPMENT ENGINEER Visits 0 PT-OP-B Current Condition Start: 11/09/20 10:26 Freq: Status: Active Protocol: Document 11/09/20 12:57 AMH (Rec: 11/09/20 13:34 AMH [id number]) Current Condition History of Current Condition Current Complaints painful ROM LE especially the ankles/feet,painful gait, decreased balance History of Current Condition Pt has a hisotry of scleroderma that affects her LE. This makes her legs so tight she has lost ROM in her ankles. She reports pain with walking, decresased balance and poor energy. She has been seen in PT years ago for help reducing tightness in her legs. She notes that symptms increased following a myocardial infacrtion in June of 2019. Fay reports for days before her heart attack she was having a buring pain in her chest, she was taken to the ER at [facility] and then sent to located [facility]. She was transfered from [facility] to [facility] in [place]. She had 2 stents put in and then had a GI bleed. When she returned home and for awhile ( a week or two) she felt increased energy. But then it went away. Has new symptoms of psorasis and reports her legs feel very bound. Taking Consentyx the injection for Psorasis. The scleroderma in her feet and legs feels worse. She hasn't had treatment in so many years for her legs. She is taking blood thinners. SHe had been doing cardiac rehab and doing really good but had to stop due to covid 19 pandemic. She hasn't been walking as much as she had before and she reports 15-20 minutes is her walking max. Past medical history includes hx of cancer, depression, type II diabetes, dizzyness, memory loss, neuropathy, thyroid disorder, psychological disorder She is no longer doing cardiac rehab, she feels that she is losing her balance more and has lost strength. She is dropping things and knocking things over. 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 A cane helps but she hasn't attempted it for a long time. PT-OP-C Subjective Start: 11/09/20 10:26 Freq: Status: Active Protocol: Document 01/13/21 15:14 HH (Rec: 01/13/21 16:20 HH [id number]) OP-PT Subjective Patient Comments Patient Comments Im pretty out of it and stressed today cause i had covid test and pulmonary function test. They said i definitely need the pulmonary rehab PT-OP-F Manual Assessment Start: 11/09/20 10:26 Freq: Status: Active Protocol: Document 11/09/20 12:45 AMH (Rec: 11/10/20 13:42 AMH [email or web address]) Manual Assessments Soft Tissue Assessment Soft Tissue Mobility Assessment wide spread myofascial restrictions secondary to full body ratiation treament. The areas that affect Fay the most include her gastroc soleus and upper back and rib cage region. She is very restricted in her diaphragm, pec minor, lengthening of her calf into DF Joint Mobility Assessment Joint Mobility Assessment very poor ankle mobility, hypomobility of the ankle in all planes PT-OP-J Posture/Palpation/Skin Start: 11/09/20 10:26 Freq: Status: Active Protocol: Document 11/09/20 13:35 AMH (Rec: 11/09/20 13:35 AMH [id number]) Posture Evaluation Comments Posture Comments forward shoulder posture with kyphosis PT-OP-K Range of Motion Start: 11/09/20 10:26 Freq: Status: Active Protocol: Document 11/09/20 12:45 AMH (Rec: 11/10/20 13:42 AMH [email or web address]) Ankle and Foot Goniometric Range of Motion Ankle and Foot Right Ankle/Foot ROM WFL No Dorsiflexion with Knee Flexed 8 Dorsiflexion with Knee Extended 4 Plantarflexion 8 Inversion 8 Eversion 8 Left Ankle/Foot ROM WFL No Dorsiflexion with Knee Flexed 10 Dorsiflexion with Knee Extended 5 Plantarflexion 8 Inversion 8 Eversion 8 PT-OP-Q Treatments Start: 11/09/20 10:26 Freq: Status: Active Protocol: Document 01/13/21 15:14 HH (Rec: 01/13/21 16:20 [id number]) Therapeutic Exercises Standing Exercises weight shift Standing Exercise Name on blue foam, anterior and posterior weight shift Reps/Minutes 5 mins Comments cues on ankle rocking motion Manual Therapy Treatment Soft Tissue Mobilization Upper, middle traps Body Location B Mobilization Type Cross-Friction,Rolling Intensity/Depth Moderate Body Position Sitting Comments cued slow breaths and worked on diaphragmatic breathing in sitting R pec, coracobrachialis Body Location R in sitting Mobilization Type Cross-Friction,Myofascial Release Intensity/Depth Moderate Body Position Sitting Joint Mobilizations MTPs, intertarsals, calcaneus on talus/navicular Joint B Direction AP, med/lat Grade II Body Position Sitting Comments long sitting thoracic spine Joint PA glides in sitting Direction PA Grade II Body Position Sitting Comments pt had good tolerance today for seated thoracic mobilizations PT-OP-T Assessment and Plan Start: 11/09/20 10:26 Freq: Status: Active Protocol: Document 01/13/21 15:14 HH (Rec: 01/13/21 16:20 [id number]) Physical Therapy Assessment Goals Four Impairment Fay is not currently engaging in a home exercise program balance/strength Short Term Goal (STG) Fay is instructed in a home strengthening program, balance exercises, postural exercises , and gentle stretches as we progress through therapy that she is able to do at home. STG Duration 4-8 weeks Tray Setter Goal (LTG) 01/10 pt has been doing tennis ball release, scap retraction. Three Impairment Pain prevents Fay from standing more than 10 min and walking > 1/4 mile Short Term Goal (STG) 01/10 pt can tolerate about 10 mins of standing with shoes on . Pt can pearl 15 mins of walking on treadmill. Skilled Nursing Goal (LTG) Fay is able to increase her tolerance for standing to 30 minutes and walking 1/2 mile or greater at a time. Shortness of breath she had experienced has decreased Two Impairment Limited ankle ROM creating difficulty with gait and balance activities Short Term Goal (STG) 01/10 ankle ROM remains the same R DF 0 L DF -2 Skilled Nursing Goal (LTG) Fay demonstrates a improved in ankle ROM by at least 5 degrees for DF/PF/INV/EVR to assist with balance and gait activities LTG Duration 8 weeks One Impairment Pain rated 7/10 in B LE Short Term Goal (STG) 01/10 Fay has a reduction in pain to 4-5/10 with manual therapy and ROM exercises -04/09 if it's a bad day Tray Setter Goal (LTG) With manual therapy techniques and a home stretching/ exercise program Fay is able to reduce her pain from 7/10 to 2-3/10 Assessment Summary Assessment pt came in with lower energy level today after going to PFT and covid testing. Pt will receive pulmonary rehab soon. She declined to do treadmill walking d/t fatigue. Tx focused on manual therapy on thoracic spine. Physical Therapy Plan Frequency and Duration Frequency of Treatment 2x/Week Duration of Treatment 8 Plan of Care Start Date 01/10/21 Plan of Care End Date 03/11/21 Therapeutic Interventions Therapeutic Interventions Balance Training,Home Exercise Program,Manual Therapy, Neuromuscular Re-education, Patient/Caregiver Education, Self-Care/Home Management,Soft Tissue Mobilization, Therapeutic Exercises Next Visit Focus/Plan Next Note Type Progress Note Next Visit Plan continue working to increase ankle ROM, improve calf flexibility, postural exercises and progress walking .
--- NOTE | 2021-01-26 11:06 | PT.OTN ---
Current Diagnoses Systemic sclerosis, unspecified (01/24/21) Unsteadiness on feet (01/24/21) Physical Therapy Treatment Note PT-OP-A Visit Information Start: 11/09/20 10:26 Freq: Status: Active Protocol: Document 01/24/21 15:16 [facility] (Rec: 01/24/21 15:21 [facility] [id number]) Out-Patient Physical Therapy Visit Information Visit Information Visit Type Treatment Note Visit Start Time 15:15 Visit Stop Time 16:00 Total Visit Minutes 45 Visit Number 17 PT-OP-B Current Condition Start: 11/09/20 10:26 Freq: Status: Active Protocol: Document 11/09/20 12:57 [facility] (Rec: 11/09/20 13:34 [facility] [id number]) Current Condition History of Current Condition Current Complaints painful ROM LE especially the ankles/feet,painful gait, decreased balance History of Current Condition Pt has a hisotry of scleroderma that affects her LE. This makes her legs so tight she has lost ROM in her ankles. She reports pain with walking, decresased balance and poor energy. She has been seen in PT years ago for help reducing tightness in her legs. She notes that symptms increased following a myocardial infacrtion in June of 2019. Fay reports for days before her heart attack she was having a buring pain in her chest, she was taken to the ER at [facility] and then sent to [facility] She was transfered from [facility] to [facility] in [place]. She had 2 stents put in and then had a GI bleed. When she returned home and for awhile ( a week or two) she felt increased energy. But then it went away. Has new symptoms of psorasis and reports her legs feel very bound. Taking Consentyx the injection for Psorasis. The scleroderma in her feet and legs feels worse. She hasn't had treatment in so many years for her legs. She is taking blood thinners. SHe had been doing cardiac rehab and doing really good but had to stop due to covid 19 pandemic. She hasn't been walking as much as she had before and she reports 15-20 minutes is her walking max. Past medical history includes hx of cancer, depression, type II diabetes, dizzyness, memory loss, neuropathy, thyroid disorder, psychological disorder She is no longer doing cardiac rehab, she feels that she is losing her balance more and has lost strength. She is dropping things and knocking things over. 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 A cane helps but she hasn't attempted it for a long time. PT-OP-C Subjective Start: 11/09/20 10:26 Freq: Status: Active Protocol: Document 01/24/21 15:16 [facility] (Rec: 01/24/21 15:21 [facility] [id number]) OP-PT Subjective Patient Comments Patient Comments pt is still recovering from being sick. She does qualify for pulmonary rehab PT-OP-F Manual Assessment Start: 11/09/20 10:26 Freq: Status: Active Protocol: Document 11/09/20 12:45 [facility] (Rec: 11/10/20 13:42 [facility] [id number]) Manual Assessments Soft Tissue Assessment Soft Tissue Mobility Assessment wide spread myofascial restrictions secondary to full body ratiation treament. The areas that affect Fay the most include her gastroc soleus and upper back and rib cage region. She is very restricted in her diaphragm, pec minor, lengthening of her calf into DF Joint Mobility Assessment Joint Mobility Assessment very poor ankle mobility, hypomobility of the ankle in all planes PT-OP-J Posture/Palpation/Skin Start: 11/09/20 10:26 Freq: Status: Active Protocol: Document 11/09/20 13:35 [facility] (Rec: 11/09/20 13:35 [facility] [id number]) Posture Evaluation Comments Posture Comments forward shoulder posture with kyphosis PT-OP-K Range of Motion Start: 11/09/20 10:26 Freq: Status: Active Protocol: Document 11/09/20 12:45 [facility] (Rec: 11/10/20 13:42 [facility] [id number]) Ankle and Foot Goniometric Range of Motion Ankle and Foot Right Ankle/Foot ROM WFL No Dorsiflexion with Knee Flexed 8 Dorsiflexion with Knee Extended 4 Plantarflexion 8 Inversion 8 Eversion 8 Left Ankle/Foot ROM WFL No Dorsiflexion with Knee Flexed 10 Dorsiflexion with Knee Extended 5 Plantarflexion 8 Inversion 8 Eversion 8 PT-OP-Q Treatments Start: 11/09/20 10:26 Freq: Status: Active Protocol: Document 01/24/21 15:16 [facility] (Rec: 01/24/21 15:21 [facility] [id number]) Manual Therapy Treatment Soft Tissue Mobilization Upper, middle traps Body Location B Mobilization Type Cross-Friction,Rolling Intensity/Depth Moderate Body Position Sitting Comments cued slow breaths and worked on diaphragmatic breathing in sitting PT-OP-T Assessment and Plan Start: 11/09/20 10:26 Freq: Status: Active Protocol: Document 01/24/21 15:15 [facility] (Rec: 01/26/21 11:06 [facility] [id number]) Physical Therapy Assessment Assessment Summary Assessment pt continues to have low energy levers and didn't feel up to walking on the treadmill today. We worked on ankle ROM and manual therapy techniques today Physical Therapy Plan Frequency and Duration Frequency of Treatment 2x/Week Duration of Treatment 8 Plan of Care Start Date 01/10/21 Plan of Care End Date 03/11/21 Therapeutic Interventions Therapeutic Interventions Balance Training,Home Exercise Program,Manual Therapy, Neuromuscular Re-education, Patient/Caregiver Education, Self-Care/Home Management,Soft Tissue Mobilization, Therapeutic Exercises Next Visit Focus/Plan Next Note Type Treatment Note Next Visit Plan continue working to increase ankle ROM, improve calf flexibility, postural exercises and progress walking .
--- NOTE | 2021-01-26 17:26 | PT.OTN ---
Current Diagnoses Systemic sclerosis, unspecified (01/26/21) Unsteadiness on feet (01/26/21) Physical Therapy Treatment Note PT-OP-A Visit Information Start: 11/09/20 10:26 Freq: Status: Active Protocol: Document 01/26/21 15:27 [facility] (Rec: 01/26/21 15:29 [facility] [id number]) Out-Patient Physical Therapy Visit Information Visit Information Visit Type Treatment Note Visit Start Time 15:20 Visit Stop Time 16:00 Total Visit Minutes 40 Visit Number 18 PT-OP-B Current Condition Start: 11/09/20 10:26 Freq: Status: Active Protocol: Document 11/09/20 12:57 [facility] (Rec: 11/09/20 13:34 [facility] [id number]) Current Condition History of Current Condition Current Complaints painful ROM LE especially the ankles/feet,painful gait, decreased balance History of Current Condition Pt has a hisotry of scleroderma that affects her LE. This makes her legs so tight she has lost ROM in her ankles. She reports pain with walking, decresased balance and poor energy. She has been seen in PT years ago for help reducing tightness in her legs. She notes that symptms increased following a myocardial infacrtion in June of 2019. Fay reports for days before her heart attack she was having a buring pain in her chest, she was taken to the ER at [facility] and then sent to [facility]. She was transfered from [facility] to [facility] in [place]. She had 2 stents put in and then had a GI bleed. When she returned home and for awhile ( a week or two) she felt increased energy. But then it went away. Has new symptoms of psorasis and reports her legs feel very bound. Taking Consentyx the injection for Psorasis. The scleroderma in her feet and legs feels worse. She hasn't had treatment in so many years for her legs. She is taking blood thinners. SHe had been doing cardiac rehab and doing really good but had to stop due to covid 19 pandemic. She hasn't been walking as much as she had before and she reports 15-20 minutes is her walking max. Past medical history includes hx of cancer, depression, type II diabetes, dizzyness, memory loss, neuropathy, thyroid disorder, psychological disorder She is no longer doing cardiac rehab, she feels that she is losing her balance more and has lost strength. She is dropping things and knocking things over. 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 A cane helps but she hasn't attempted it for a long time. PT-OP-C Subjective Start: 11/09/20 10:26 Freq: Status: Active Protocol: Document 01/26/21 15:27 [facility] (Rec: 01/26/21 15:29 [facility] [id number]) OP-PT Subjective Patient Comments Patient Comments pt rpeo PT-OP-F Manual Assessment Start: 11/09/20 10:26 Freq: Status: Active Protocol: Document 11/09/20 12:45 [facility] (Rec: 11/10/20 13:42 [facility] [id number]) Manual Assessments Soft Tissue Assessment Soft Tissue Mobility Assessment wide spread myofascial restrictions secondary to full body ratiation treament. The areas that affect Fay the most include her gastroc soleus and upper back and rib cage region. She is very restricted in her diaphragm, pec minor, lengthening of her calf into DF Joint Mobility Assessment Joint Mobility Assessment very poor ankle mobility, hypomobility of the ankle in all planes PT-OP-J Posture/Palpation/Skin Start: 11/09/20 10:26 Freq: Status: Active Protocol: Document 11/09/20 13:35 [facility] (Rec: 11/09/20 13:35 [facility] [id number]) Posture Evaluation Comments Posture Comments forward shoulder posture with kyphosis PT-OP-K Range of Motion Start: 11/09/20 10:26 Freq: Status: Active Protocol: Document 11/09/20 12:45 [facility] (Rec: 11/10/20 13:42 [facility] [id number]) Ankle and Foot Goniometric Range of Motion Ankle and Foot Right Ankle/Foot ROM WFL No Dorsiflexion with Knee Flexed 8 Dorsiflexion with Knee Extended 4 Plantarflexion 8 Inversion 8 Eversion 8 Left Ankle/Foot ROM WFL No Dorsiflexion with Knee Flexed 10 Dorsiflexion with Knee Extended 5 Plantarflexion 8 Inversion 8 Eversion 8 PT-OP-Q Treatments Start: 11/09/20 10:26 Freq: Status: Active Protocol: Document 01/26/21 17:14 [facility] (Rec: 01/26/21 17:26 [facility] [id number]) Manual Therapy Treatment Soft Tissue Mobilization B patellar tendon Body Location B Mobilization Type Cross-Friction Intensity/Depth Moderate Body Position Sitting Comments Long sitting Extra time spend over R patellar tendon to allow for elevation durign knee flexion. I can breath better. Joint Mobilizations MTPs, intertarsals, calcaneus on talus/navicular Joint B Direction AP, med/lat Grade II Body Position Sitting Comments long sitting thoracic spine Joint PA glides in sitting Direction PA Grade II Body Position Sitting Comments pt had good tolerance today for seated thoracic mobilizations Manual Techniques 2 Type manual stretching for the gastroc/soleus complex Body Location B Body Position Sitting Comments long sitting 1 Type PROM stretches were performed at B ankles and feet, manual stretching Body Location B PF/ DF Body Position Sitting Comments improving ankle ROM with manual stretches PT-OP-T Assessment and Plan Start: 11/09/20 10:26 Freq: Status: Active Protocol: Document 01/26/21 17:14 [facility] (Rec: 01/26/21 17:26 [facility] [id number]) Physical Therapy Assessment Assessment Summary Assessment pt has a start date of 02/17 for pulmonary rehab. She has two visits left in PT and will then DC to do pulmonary rehab . She was still pretty fatigued today with audible rattle in her chest. She did walk on the treadmill for a few minutes after treatment today Physical Therapy Plan Frequency and Duration Frequency of Treatment 2x/Week Duration of Treatment 8 Plan of Care Start Date 01/10/21 Plan of Care End Date 03/11/21 Therapeutic Interventions Therapeutic Interventions Balance Training,Home Exercise Program,Manual Therapy, Neuromuscular Re-education, Patient/Caregiver Education, Self-Care/Home Management,Soft Tissue Mobilization, Therapeutic Exercises Next Visit Focus/Plan Next Note Type Treatment Note Next Visit Plan pt has 2 visits left, work on [facility] for ankle mobility and stretching exercises, manual therapy technique
--- NOTE | 2021-02-08 14:32 | PT.OTN ---
Current Diagnoses Systemic sclerosis, unspecified (02/08/21) Unsteadiness on feet (02/08/21) Physical Therapy Treatment Note PT-OP-A Visit Information Start: 11/09/20 10:26 Freq: Status: Active Protocol: Document 02/08/21 13:46 HH (Rec: 02/08/21 14:32 HH [id number]) Out-Patient Physical Therapy Visit Information Visit Information Visit Type Treatment Note Visit Start Time 13:47 Visit Stop Time 14:30 Total Visit Minutes 43 Visit Number 19 Number of SCIENTIFIC PROGRAMMER Visits 0 PT-OP-B Current Condition Start: 11/09/20 10:26 Freq: Status: Active Protocol: Document 11/09/20 12:57 AMH (Rec: 11/09/20 13:34 AMH [id number]) Current Condition History of Current Condition Current Complaints painful ROM LE especially the ankles/feet,painful gait, decreased balance History of Current Condition Pt has a hisotry of scleroderma that affects her LE. This makes her legs so tight she has lost ROM in her ankles. She reports pain with walking, decresased balance and poor energy. She has been seen in PT years ago for help reducing tightness in her legs. She notes that symptms increased following a myocardial infacrtion in June of 2019. Fay reports for days before her heart attack she was having a buring pain in her chest, she was taken to the ER at [facility] and then sent to [facility]. She was transfered from [facility] to [facility] in [place]. She had 2 stents put in and then had a GI bleed. When she returned home and for awhile ( a week or two) she felt increased energy. But then it went away. Has new symptoms of psorasis and reports her legs feel very bound. Taking Consentyx the injection for Psorasis. The scleroderma in her feet and legs feels worse. She hasn't had treatment in so many years for her legs. She is taking blood thinners. SHe had been doing cardiac rehab and doing really good but had to stop due to covid 19 pandemic. She hasn't been walking as much as she had before and she reports 15-20 minutes is her walking max. Past medical history includes hx of cancer, depression, type II diabetes, dizzyness, memory loss, neuropathy, thyroid disorder, psychological disorder She is no longer doing cardiac rehab, she feels that she is losing her balance more and has lost strength. She is dropping things and knocking things over. 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 A cane helps but she hasn't attempted it for a long time. PT-OP-C Subjective Start: 11/09/20 10:26 Freq: Status: Active Protocol: Document 02/08/21 13:46 HH (Rec: 02/08/21 14:32 HH [id number]) OP-PT Subjective Patient Comments Patient Comments I just started getting back to my stair stepper and therband exercises. PT-OP-F Manual Assessment Start: 11/09/20 10:26 Freq: Status: Active Protocol: Document 11/09/20 12:45 AMH (Rec: 11/10/20 13:42 AMH [email or web address]) Manual Assessments Soft Tissue Assessment Soft Tissue Mobility Assessment wide spread myofascial restrictions secondary to full body ratiation treament. The areas that affect Fay the most include her gastroc soleus and upper back and rib cage region. She is very restricted in her diaphragm, pec minor, lengthening of her calf into DF Joint Mobility Assessment Joint Mobility Assessment very poor ankle mobility, hypomobility of the ankle in all planes PT-OP-J Posture/Palpation/Skin Start: 11/09/20 10:26 Freq: Status: Active Protocol: Document 11/09/20 13:35 AMH (Rec: 11/09/20 13:35 AMH [id number]) Posture Evaluation Comments Posture Comments forward shoulder posture with kyphosis PT-OP-K Range of Motion Start: 11/09/20 10:26 Freq: Status: Active Protocol: Document 11/09/20 12:45 AMH (Rec: 11/10/20 13:42 AMH [email or web address]) Ankle and Foot Goniometric Range of Motion Ankle and Foot Right Ankle/Foot ROM WFL No Dorsiflexion with Knee Flexed 8 Dorsiflexion with Knee Extended 4 Plantarflexion 8 Inversion 8 Eversion 8 Left Ankle/Foot ROM WFL No Dorsiflexion with Knee Flexed 10 Dorsiflexion with Knee Extended 5 Plantarflexion 8 Inversion 8 Eversion 8 PT-OP-Q Treatments Start: 11/09/20 10:26 Freq: Status: Active Protocol: Document 02/08/21 13:46 (Rec: 02/08/21 14:32 [id number]) Cardio Equipment Treadmill Duration (Minutes) 5 Speed 1.5 Incline 0-0.5% Other cued increased stride, slow breath Manual Therapy Treatment Soft Tissue Mobilization Upper, middle traps Body Location B Mobilization Type Cross-Friction,Rolling Intensity/Depth Moderate Body Position Sitting Comments cued slow breaths and worked on diaphragmatic breathing in sitting B patellar tendon Body Location B Mobilization Type Cross-Friction Intensity/Depth Moderate Body Position Sitting Comments Long sitting Extra time spend over R patellar tendon to allow for elevation durign knee flexion. I can breath better. Joint Mobilizations MTPs, intertarsals, calcaneus on talus/navicular Joint B Direction AP, med/lat Grade II Body Position Sitting Comments long sitting thoracic spine Joint PA glides in sitting Direction PA Grade II Body Position Sitting Comments pt had good tolerance today for seated thoracic mobilizations PT-OP-T Assessment and Plan Start: 11/09/20 10:26 Freq: Status: Active Protocol: Document 02/08/21 13:46 (Rec: 02/08/21 14:32 [id number]) Physical Therapy Assessment Goals Four Impairment Fay is not currently engaging in a home exercise program balance/strength Short Term Goal (STG) Fay is instructed in a home strengthening program, balance exercises, postural exercises , and gentle stretches as we progress through therapy that she is able to do at home. STG Duration 4-8 weeks Senior Living Goal (LTG) 01/10 pt has been doing tennis ball release, scap retraction. Three Impairment Pain prevents Fay from standing more than 10 min and walking > 1/4 mile Short Term Goal (STG) 01/10 pt can tolerate about 10 mins of standing with shoes on . Pt can pearl 15 mins of walking on treadmill. Landscape Crew Member Goal (LTG) Fay is able to increase her tolerance for standing to 30 minutes and walking 1/2 mile or greater at a time. Shortness of breath she had experienced has decreased Two Impairment Limited ankle ROM creating difficulty with gait and balance activities Short Term Goal (STG) 01/10 ankle ROM remains the same R DF 0 L DF -2 Senior Living Goal (LTG) Fay demonstrates a improved in ankle ROM by at least 5 degrees for DF/PF/INV/EVR to assist with balance and gait activities LTG Duration 8 weeks One Impairment Pain rated 7/10 in B LE Short Term Goal (STG) 01/10 Fay has a reduction in pain to 4-5/10 with manual therapy and ROM exercises -04/09 if it's a bad day Senior Living Goal (LTG) With manual therapy techniques and a home stretching/ exercise program Fay is able to reduce her pain from 7/10 to 2-3/10 Assessment Summary Assessment Pt reports she is recovering better from her pneumonia. She is able to tolerate 5 mins of treadmill walking at the end of the session today. Physical Therapy Plan Frequency and Duration Frequency of Treatment 2x/Week Duration of Treatment 8 Plan of Care Start Date 01/10/21 Plan of Care End Date 03/11/21 Therapeutic Interventions Therapeutic Interventions Balance Training,Home Exercise Program,Manual Therapy, Neuromuscular Re-education, Patient/Caregiver Education, Self-Care/Home Management,Soft Tissue Mobilization, Therapeutic Exercises Next Visit Focus/Plan Next Note Type Treatment Note Next Visit Plan pt has 2 visits left, work on HEP for ankle mobility and stretching exercises, manual therapy technique
--- NOTE | 2021-02-15 16:31 | PT.OTN ---
Current Diagnoses Systemic sclerosis, unspecified (02/14/21) Unsteadiness on feet (02/14/21) Physical Therapy Treatment Note PT-OP-A Visit Information Start: 11/09/20 10:26 Freq: Status: Active Protocol: Document 02/14/21 16:26 HH (Rec: 02/15/21 16:31 HH [id number]) Out-Patient Physical Therapy Visit Information Visit Information Visit Type Discharge Summary Visit Start Time 13:47 Visit Stop Time 14:30 Total Visit Minutes 43 Visit Number 20 Number of PATIENT SVCS MGR Visits 0 PT-OP-B Current Condition Start: 11/09/20 10:26 Freq: Status: Active Protocol: Document 11/09/20 12:57 AMH (Rec: 11/09/20 13:34 AMH [id number]) Current Condition History of Current Condition Current Complaints painful ROM LE especially the ankles/feet,painful gait, decreased balance History of Current Condition Pt has a hisotry of scleroderma that affects her LE. This makes her legs so tight she has lost ROM in her ankles. She reports pain with walking, decresased balance and poor energy. She has been seen in PT years ago for help reducing tightness in her legs. She notes that symptms increased following a myocardial infacrtion in June of 2019. Fay reports for days before her heart attack she was having a buring pain in her chest, she was taken to the ER at [facility] and then sent to [facility]. She was transfered from [facility] to [facility] in [place]. She had 2 stents put in and then had a GI bleed. When she returned home and for awhile ( a week or two) she felt increased energy. But then it went away. Has new symptoms of psorasis and reports her legs feel very bound. Taking Consentyx the injection for Psorasis. The scleroderma in her feet and legs feels worse. She hasn't had treatment in so many years for her legs. She is taking blood thinners. SHe had been doing cardiac rehab and doing really good but had to stop due to covid 19 pandemic. She hasn't been walking as much as she had before and she reports 15-20 minutes is her walking max. Past medical history includes hx of cancer, depression, type II diabetes, dizzyness, memory loss, neuropathy, thyroid disorder, psychological disorder She is no longer doing cardiac rehab, she feels that she is losing her balance more and has lost strength. She is dropping things and knocking things over. 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 A cane helps but she hasn't attempted it for a long time. PT-OP-C Subjective Start: 11/09/20 10:26 Freq: Status: Active Protocol: Document 02/14/21 16:26 HH (Rec: 02/15/21 16:31 HH [id number]) OP-PT Subjective Patient Comments Patient Comments Im pretty short of breath today. I am going to pulmonary rehab starting this saturday for 9 weeks. PT-OP-F Manual Assessment Start: 11/09/20 10:26 Freq: Status: Active Protocol: Document 11/09/20 12:45 AMH (Rec: 11/10/20 13:42 AMH [email or web address]) Manual Assessments Soft Tissue Assessment Soft Tissue Mobility Assessment wide spread myofascial restrictions secondary to full body ratiation treament. The areas that affect Fay the most include her gastroc soleus and upper back and rib cage region. She is very restricted in her diaphragm, pec minor, lengthening of her calf into DF Joint Mobility Assessment Joint Mobility Assessment very poor ankle mobility, hypomobility of the ankle in all planes PT-OP-J Posture/Palpation/Skin Start: 11/09/20 10:26 Freq: Status: Active Protocol: Document 11/09/20 13:35 AMH (Rec: 11/09/20 13:35 AMH [id number]) Posture Evaluation Comments Posture Comments forward shoulder posture with kyphosis PT-OP-K Range of Motion Start: 11/09/20 10:26 Freq: Status: Active Protocol: Document 11/09/20 12:45 AMH (Rec: 11/10/20 13:42 AMH [email or web address]) Ankle and Foot Goniometric Range of Motion Ankle and Foot Right Ankle/Foot ROM WFL No Dorsiflexion with Knee Flexed 8 Dorsiflexion with Knee Extended 4 Plantarflexion 8 Inversion 8 Eversion 8 Left Ankle/Foot ROM WFL No Dorsiflexion with Knee Flexed 10 Dorsiflexion with Knee Extended 5 Plantarflexion 8 Inversion 8 Eversion 8 PT-OP-Q Treatments Start: 11/09/20 10:26 Freq: Status: Active Protocol: Document 02/14/21 16:26 (Rec: 02/15/21 16:31 [id number]) Cardio Equipment Treadmill Duration (Minutes) 15 Speed 1.5 Incline 0-0.5% Other cued increased stride, slow breath Manual Therapy Treatment Soft Tissue Mobilization Upper, middle traps Body Location B Mobilization Type Cross-Friction,Rolling Intensity/Depth Moderate Body Position Sitting Comments cued slow breaths and worked on diaphragmatic breathing in sitting B patellar tendon Body Location B Mobilization Type Cross-Friction Intensity/Depth Moderate Body Position Sitting Comments Long sitting Extra time spend over R patellar tendon to allow for elevation durign knee flexion. I can breath better. Joint Mobilizations MTPs, intertarsals, calcaneus on talus/navicular Joint B Direction AP, med/lat Grade II Body Position Sitting Comments long sitting thoracic spine Joint PA glides in sitting Direction PA Grade II Body Position Sitting Comments pt had good tolerance today for seated thoracic mobilizations PT-OP-T Assessment and Plan Start: 11/09/20 10:26 Freq: Status: Active Protocol: Document 02/14/21 16:26 (Rec: 02/15/21 16:31 [id number]) Physical Therapy Assessment Goals Four Impairment Fay is not currently engaging in a home exercise program balance/strength Short Term Goal (STG) Fay is instructed in a home strengthening program, balance exercises, postural exercises , and gentle stretches as we progress through therapy that she is able to do at home. STG Duration 4-8 weeks Assisted Goal (LTG) 01/10 pt has been doing tennis ball release, scap retraction. Three Impairment Pain prevents Fay from standing more than 10 min and walking > 1/4 mile Short Term Goal (STG) 01/10 pt can tolerate about 10 mins of standing with shoes on . Pt can pearl 15 mins of walking on treadmill. Assisted Goal (LTG) Fay is able to increase her tolerance for standing to 30 minutes and walking 1/2 mile or greater at a time. Shortness of breath she had experienced has decreased Two Impairment Limited ankle ROM creating difficulty with gait and balance activities Short Term Goal (STG) 01/10 ankle ROM remains the same R DF 0 L DF -2 Assisted Goal (LTG) Fay demonstrates a improved in ankle ROM by at least 5 degrees for DF/PF/INV/EVR to assist with balance and gait activities LTG Duration 8 weeks One Impairment Pain rated 7/10 in B LE Short Term Goal (STG) 01/10 Fay has a reduction in pain to 4-5/10 with manual therapy and ROM exercises -04/09 if it's a bad day Assisted Goal (LTG) With manual therapy techniques and a home stretching/ exercise program Fay is able to reduce her pain from 7/10 to 2-3/10 Progress Towards Goals Progress Towards Goals Slow Progress due to Activity Tolerance,Slow Progress due to Medical Issues,Slow Progress - Other Assessment Summary Assessment pt is going to participate pulmonary rehab starting 02/17. Pt's overall progress has been slow and limited d/t ongoing medical issues and recent pneumonia. However, she does has her exercise routine and I will DC her from PT today Physical Therapy Plan Discharge Physical Therapy Discharge Reasons Plateau in Progress
== END 2021-02-16 09:37 | disposition home or self-care (01) ==
LOC: PHYS 13:45
PROVIDERS: PCP Internal Medicine; Referring Provider Internal Medicine; Visit Provider Internal Medicine
DX: R26.81 Unsteadiness on feet (principal); M34.9 Systemic sclerosis, unspecified
CPT/HCPCS: 97110; 97116; 97140; 97161

== ENCOUNTER 2021-03-16 04:44 | Observation (INO) | payer MEDICARE, MEDICAID, SELFPAY ==
[2021-02-06 16:03] VITALS: BMI 24.5
[2021-03-16] VITALS (18 sets, daily range): BP systolic 105–140; BP diastolic 50–71; PULSE 69–82; RESP 10–33; TEMP 36.3–36.9; O2SAT 95–100; BMI 24.9; BMI 24.4
--- NOTE | 2021-03-16 | DI.ECHO.S_ITS ---
[facility] +---------+ : : [address] [place] : : : : [id number] : : : : Phone: [phone] Echocardiogram Report + + :Name: MALISSA DOTSON Study Date: 03/16/2021 Height: 64 in : :[facility] ReadingLocation: Weight: 145 lb : : Gender: Female BSA: 1.7 m2 : :: 1955 Age: 65 yrs BP: 120/57 mmHg: :Reason For Study: CHEST PAIN : :Ordering Physician: DL, : :JESSICA SILVERIO Performed By: Leni Gonzalez : :Referring: JESSICA JAFFE : + + Interpretation Summary 1) Normal left ventricular thickness, size, wall motion, and systolic function (EF 60-65%). 2) Normal right ventricular size and function. 3) No significant valvular abnormalities. 4) Compared to the Echo done 06/15/2020, no significant change. Procedure: A two-dimensional transthoracic echocardiogram with color flow and Doppler was performed. Comparison is made with the echocardiogram of 06/15/2020. The patient was in sinus rhythm with heart rates between 65-75 bpm during the exam. Left Ventricle: The left ventricle is normal in size and wall thickness. The ejection fraction is estimated to be 60-65%. Left ventricular systolic function appears normal without focal wall motion abnormalities. Right Ventricle: The right ventricle grossly appears normal in size with probable normal systolic function. Mitral Valve: There is moderate mitral annular calcification. The mitral valve leaflets appear mildly thickened, but open well. There is no mitral valve stenosis. There is trace mitral regurgitation. Aortic Valve: The aortic valve is trileaflet. The aortic valve opens well. The aortic valve is slightly calcified. There is no aortic valve stenosis. No aortic regurgitation is present. Tricuspid Valve: The tricuspid valve is normal in structure and function. There is mild tricuspid regurgitation. The right ventricular systolic pressure is estimated to be at least 24 mmHg based on an estimated right atrial pressure of 3 mm Hg. Pulmonic Valve: The pulmonic valve is not well seen, but is grossly normal. There is trace pulmonic regurgitation. Great Vessels: The aortic root is normal size. The ascending aorta is at the upper limits of normal in size. The IVC is of normal diameter and collapses greater than 50% with a sniff. This suggests a low right atrial pressure of 3 mm Hg. Pericardium/ Pleura There is no pericardial effusion. There is no pleural effusion. MMode/2D Measurements & Calculations LVIDd: 4.7 cm LVOT diam: 2.0 cm LVIDs: 2.8 cm Ao root diam: 3.3 cm FS: 41.3 % asc Aorta Diam: 3.4 cm IVSd: 0.82 cm Ao Arch Diam (Prox Trans): 2.9 cm LVPWd: 0.76 cm LV hernandez. diameter/BSA (cm/m^2): 2.8 LV sys. diameter/BSA (cm/m^2): 1.6 LA A2 area: 17.3 cm2 RA long axis: 4.3 cm LA A4 area: 17.2 cm2 RA area: 12.7 cm2 LA length (vol): 5.3 cm RA vol: 31.9 ml LA vol: 47.7 ml RA : 18.7 ml/m2 LA vol index: 27.9 ml/m2 IVC diam: 1.1 cm RVD1 (basal): 2.8 cm TAPSE: 2.0 cm Doppler Measurements & Calculations Ao V2 max: 125.4 cm/sec LVOT Max Yg: 94.4 cm/sec Ao V2 mean: 93.5 cm/sec LV V1 max P.6 mmHg Ao max P.3 mmHg LV V1 VTI: 23.9 cm Ao mean P.9 mmHg JUNG(I,D): 2.6 cm2 Ao V2 VTI: 28.8 cm JUNG(V,D): 2.3 cm2 sev ratio: 0.83 JUNG indexed to BSA (cm^2/m^2): 1.5 MV E max yg: 114.2 cm/sec TR max yg: 228.7 cm/sec MV A max yg: 135.7 cm/sec TR max P.9 mmHg MV E/A: 0.84 PA V2 max: 81.2 cm/sec Med Peak E' Yg: 6.1 cm/sec PA V2 mean: 57.3 cm/sec E/E' med: 18.8 PA mean P.4 mmHg Lat Peak E' Yg: 6.6 cm/sec PA pr(Accel): 37.9 mmHg E/E' lat: 17.4 E/e' average: 18.1 MV dec time: 0.28 sec MVA(VTI): 1.9 cm2 MV V2 mean: 79.3 cm/sec SV(LVOT): 73.7 ml MV mean P.1 mmHg MV V2 VTI: 38.3 cm Reading Physician:02:04 PM
--- NOTE | 2021-03-16 | DI.NM.S_ITS ---
PROCEDURE: NM GINA PERF SPECT R&S PHARM Rest and pharmacological stress myocardial perfusion SPECT with gated imaging and ejection fraction RADIOPHARMACEUTICAL: 26.1 mCi Tc-99m tetrafosmin IV at rest and 24.0 mCi Tc-99m tetrafosmin IV at peak effect of pharmacological stress. [id number] was performed. INDICATIONS: chest pain TECHNIQUE: Radiopharmaceutical was injected at peak stress test, and also at rest. SPECT images were obtained. SPECT myocardial perfusion images were displayed in short axis, horizontal long axis, and vertical long axis views. Gated images were reviewed using WeFi software. COMPARISON: None. CARDIAC STRESS: A pharmacologic stress test was performed under the supervision of an attending staff, using an infusion of lexiscan 0.4mg IV X1. Hemodynamic data: There is normal blood pressure and heart rate response to pharmacologic stress. Symptoms: The patient denied anginal chest pain. Aminophylline: none EKG: No diagnostic changes of ischemia; no ectopy. FINDINGS: Raw data: There is good myocardial uptake of radiotracer. No significant motion artifacts. Xnms-pr-zeent ratio is 0.27 (normal is less than 0.38 for tetrafosmin tracer). Left ventricle function: Gated images demonstrate normal left ventricular wall thickening. No segmental wall motion abnormalities. No transient ischemic dilation visually. Left ventricle resting end diastolic volume is 55 mL. Left ventricle stress ejection fraction is 89%; normal range is above 45%. Myocardial perfusion: There is a moderate sized severe apical defect at rest that decreased in size to small with stress, suggesting possible artifact but old apical non-transmural infarct can't excluded. No ischemia. SSS 2, SRS 8. IMPRESSION: Low risk, equivocal pharm nuclear stress test. 1) There is a moderate sized severe apical defect at rest that decreased in size to small with stress, suggesting possible artifact but old apical non-transmural infarct can't excluded. No ischemia. SSS 2, SRS 8. 2) Normal left ventricular size, wall motion, and systolic function (EF post stress 89%). 3) No ECG evidence of ischemia with lexiscan. 4) No angina during the study. 5) Compared to the nuclear stress test done 06/28/2020, no significant changes. Dictated by: Brooke Mendiola MD on 03/17/2021 at 16:43 Approved by: Brooke Mendiola MD on 03/17/2021 at 16:48
--- NOTE | 2021-03-16 04:54 | ED_ITS ---
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 Presenting this morning with chest discomfort. She described as a burning sensation on the left side of her chest. She previously had a burning sensation when she had her MRI but now she is also describing sharp pains. No shortness of breath. No prior history of sharp pain. She took 3 nitroglycerin at home it has improved her pain but it has not resolved it Related Data Home Medications Medication Instructions Recorded Confirmed levothyroxine 50 mcg tablet 25 mcg PO DAILY #0 07/17/11 03/16/21 cinacalcet 30 mg tablet (Sensipar) 30 mg PO DAILY #0 12/16/16 03/16/21 rifaximin 550 mg tablet 550 mg PO BID 30 Days #60 tab 06/25/18 03/16/21 aspirin 81 mg tablet,delayed 81 mg PO DAILY 08/12/19 03/16/21 release insulin aspart U-100 100 unit/mL 50 unit SUBCUT TID ml 08/12/19 03/16/21 (3 mL) subcutaneous pen metoprolol succinate 25 mg 25 mg PO DAILY 08/12/19 03/16/21 tablet,extended release 24 hr nitroglycerin 0.4 mg sublingual 0.4 mg SL PRN PRN tab 08/12/19 03/16/21 tablet pantoprazole 40 mg tablet,delayed 40 mg PO DAILY 08/12/19 03/16/21 release spironolactone 25 mg tablet 50 mg PO DAILY #0 tab 08/12/19 03/16/21 atorvastatin 40 mg tablet 80 mg PO BEDTIME tab 01/20/20 03/16/21 insulin regular hum U-500 conc 50 unit SUBCUT TID ml 01/20/20 03/16/21 (Humulin R U-500 (Conc) Insulin Kwikpen) Previous Rx's Medication Instructions Recorded desvenlafaxine 100 mg See Rx Instructions .ROUTE 02/17/21 tablet,extended release 24 hr .COMPLEX #30 tab Allergies Allergy/AdvReac Type Severity Reaction Status Date / Time hydrocodone Allergy ITCHING Verified 01/28/21 18:49 oxycodone Allergy ITCHING Verified 01/28/21 18:49 propofol AdvReac Unknown Verified 01/28/21 18:49 morphine AdvReac Vomiting Verified 01/28/21 18:49 Review of Systems <Bea Victoria DO - Last Filed: 03/19/21 07:19> Review of Systems Narrative: GENERAL: Denies chills, fatigue, malaise, fever, sweats, travel HEENT: Denies sinus pain, ear pain, sore throat, difficulty swallowing, neck pain RESPIRATORY: Denies dyspnea, cough, wheezing, hemoptysis, sputum. CARDIOVASCULAR: See HPI GASTROINTESTINAL: Denies nausea, vomiting, abdominal pain, diarrhea, constipation, melena. : Denies dysuria, frequency, incontinence, hematuria, urinary retention, flank pain. MUSCULOSKELETAL: Denies weakness, joint pain, or bony pain SKIN: No rash, no erythema, no pruritus NEUROLOGIC: Denies weakness, dizziness, headache, numbness, change in speech, confusion PSYCHIATRIC: No concerning psychosocial issues. 12 point review of systems is negative except for those stated above and HPI Patient History <Bea Victoria DO - Last Filed: 03/19/21 07:19> Medical History AML (acute myeloid leukemia) in remission Cirrhosis Depression Generalized anxiety disorder Hepatic encephalopathy History of ST elevation myocardial infarction (STEMI) History of upper gastrointestinal bleeding Insulin dependent diabetes mellitus Obsessive compulsive disorder Psoriasis Restrictive lung disease Scleroderma Thrombocytopenia Surgical History History of bone marrow transplant History of colonoscopy History of coronary artery stent placement Family History Father Heart disease S/P CABG x 4 Hypertension Mother Gallstones Brother No significant medical problems Sister Diabetes mellitus Social History marital status: unknown household members: none Smoking Status: Never smoker alcohol intake: former substance use type: does not use Smoking Status: Never smoker alcohol intake frequency: 0-2 drinks per day Substance Use Type: does not use Exam <Bea Victoria DO - Last Filed: 03/19/21 07:19> Initial Vital Signs Initial Vital Signs: Vital Signs Temperature 98.4 F 03/16/21 04:49 Pulse Rate 79 03/16/21 04:49 Respiratory Rate 17 03/16/21 04:49 Blood Pressure 140/65 03/16/21 04:49 Pulse Oximetry 98 03/16/21 04:49 GENERAL: Alert well-appearing 65-year-old female HEENT: Head atraumatic,EOMI, pupils reactive, face symmetric, moist mucous membranes CARDIOVASCULAR: Regular rate and rhythm without murmurs, rubs or gallops. RESPIRATORY: Breath sounds equal bilaterally, no wheezes rales or rhonchi. ABDOMEN: Soft, nontender. Normoactive bowel sounds all 4 quadrants. No guarding or rebound. EXTREMITIES: Normal range of motion, no clubbing or edema. Neurovascularly intact NEUROLOGICAL: Alert and oriented x4.Normal gait and speech. SKIN: Warm, dry, no laceration, no petechiae, no rashes or lesions. <Kuldeep Mahoney MD - Last Filed: 03/18/21 21:12> Initial Vital Signs Initial Vital Signs: Vital Signs Temperature 98.4 F 03/16/21 04:49 Pulse Rate 79 03/16/21 04:49 Respiratory Rate 17 03/16/21 04:49 Blood Pressure 140/65 03/16/21 04:49 Pulse Oximetry 98 03/16/21 04:49 Course <Bea Victoria DO - Last Filed: 03/19/21 07:19> Orders Ordered: Discontinued Medications Acetaminophen (Acetaminophen 325 Mg Tablet) 650 mg PO Q6HR PRN PRN Reason: Fever/Mild Pain (1-3) Aspirin (Aspirin Ec 81 Mg Tablet) 81 mg PO DAILY [facility] Last Admin: 03/17/21 08:07 Dose: 81 mg Documented by: JOHN Atorvastatin Calcium (Atorvastatin 20 Mg Tablet) 80 mg PO BEDTIME [facility] Last Admin: 03/16/21 20:10 Dose: 80 mg Documented by: ERAN Lactulose 200 gm/ Sterile (Water 700 ml) 0 gm MS Q4HR [facility] Last Admin: 03/17/21 11:19 Dose: Not Given Documented by: Admin: 03/17/21 11:19 Dose: Not Given Documented by: JOHN Lactulose (Lactulose 20 Gm/30 Ml Solution) 20 gm MS Q4H [facility] Last Admin: 03/17/21 11:18 Dose: Not Given Documented by: JOHN Levothyroxine Sodium (Levothyroxine 50 Mcg Tablet) 25 mcg PO DAILY@0600 [facility] Last Admin: 03/17/21 06:04 Dose: 25 mcg Documented by: ERAN Levothyroxine Sodium (Levothyroxine 25 Mcg Tablet) 25 mcg PO DAILY@0600 [facility] Nitroglycerin (Nitroglycerin 0.4 Mg Sl Tab) 0.4 mg SL NOW ONE Stop: 03/16/21 04:54 Last Admin: 03/16/21 04:57 Dose: 0.4 mg Documented by: DOMINGA Insulin Lispro U-100 100 Unit/Ml (3 Ml) Insulin Pen 50 unit SUBCUT [facility] Last Admin: 03/17/21 14:48 Dose: 50 unit Documented by: Admin: 03/17/21 10:55 Dose: 50 unit Documented by: Admin: 03/17/21 08:04 Dose: Not Given Documented by: Admin: 03/16/21 18:37 Dose: 40 unit Documented by: JOHN Insulin Regular Hum (U-500 Conc Pen) 50 unit SUBCUT [facility] Last Admin: 03/17/21 10:55 Dose: 35 unit Documented by: Admin: 03/17/21 08:04 Dose: Not Given Documented by: Admin: 03/16/21 18:17 Dose: 40 unit Documented by: JOHN Cinacalcet [Sensipar (] 30 Mg Tablet) 30 mg PO DAILY [facility] Last Admin: 03/17/21 08:09 Dose: 30 mg Documented by: JOHN Stored In Pharmacy 1 each PO PRN PRN PRN Reason: PROTOCOL Non-Formulary Medication (Desvenlafaxine) 1 tab PO BID [facility] Last Admin: 03/17/21 15:31 Dose: Not Given Documented by: DARLEEN Desvenlafaxine Er (Tablets 100mg) 0 mg PO DAILY [facility] Last Admin: 03/17/21 14:46 Dose: 100 mg Documented by: JOHN Pantoprazole Sodium (Pantoprazole Dr 40 Mg Tablet) 40 mg PO DAILY@0700 [facility] Last Admin: 03/17/21 08:07 Dose: 40 mg Documented by: JOHN Rifaximin (Rifaximin 550 Mg Tablet) 550 mg PO BID [facility] Last Admin: 03/17/21 08:09 Dose: 550 mg Documented by: Admin: 03/16/21 20:10 Dose: 550 mg Documented by: ERAN Spironolactone (Spironolactone 25 Mg Tablet) 50 mg PO DAILY [facility] Last Admin: 03/17/21 08:09 Dose: 50 mg Documented by: JOHN Vital Signs Vital signs: Vital Signs - 8 hr 03/16/21 04:49 03/16/21 04:57 03/16/21 05:05 Temperature 98.4 F Pulse Rate 79 77 81 Respiratory Rate 17 10 L Blood Pressure 140/65 140/65 Pulse Oximetry 98 96 03/16/21 05:09 03/16/21 05:30 03/16/21 06:00 Temperature Pulse Rate 79 75 76 Respiratory Rate 19 17 33 H Blood Pressure 105/56 L 129/60 116/59 L Pulse Oximetry 97 99 100 03/16/21 06:30 03/16/21 07:00 03/16/21 07:30 Temperature Pulse Rate 78 79 79 Respiratory Rate 19 19 20 Blood Pressure 120/57 L 132/63 132/60 Pulse Oximetry 98 98 99 <Kuldeep Mahoney MD - Last Filed: 03/18/21 21:12> Course Course Narrative: No new issues during course of stay 7:00 a.m.. Sign-out from Dr. Victoria, awaiting call from Cardiology as well as hospitalist for admit Decision to Admit Date: 03/16/21 Decision to Admit time: 07:33 Orders Ordered: Discontinued Medications Acetaminophen (Acetaminophen 325 Mg Tablet) 650 mg PO Q6HR PRN PRN Reason: Fever/Mild Pain (1-3) Aspirin (Aspirin Ec 81 Mg Tablet) 81 mg PO DAILY [facility] Last Admin: 03/17/21 08:07 Dose: 81 mg Documented by: JOHN Atorvastatin Calcium (Atorvastatin 20 Mg Tablet) 80 mg PO BEDTIME [facility] Last Admin: 03/16/21 20:10 Dose: 80 mg Documented by: ERAN Lactulose 200 gm/ Sterile (Water 700 ml) 0 gm MS Q4HR [facility] Last Admin: 03/17/21 11:19 Dose: Not Given Documented by: Admin: 03/17/21 11:19 Dose: Not Given Documented by: JOHN Lactulose (Lactulose 20 Gm/30 Ml Solution) 20 gm MS Q4H [facility] Last Admin: 03/17/21 11:18 Dose: Not Given Documented by: JOHN Levothyroxine Sodium (Levothyroxine 50 Mcg Tablet) 25 mcg PO DAILY@0600 [facility] Last Admin: 03/17/21 06:04 Dose: 25 mcg Documented by: ERAN Levothyroxine Sodium (Levothyroxine 25 Mcg Tablet) 25 mcg PO DAILY@0600 [facility] Nitroglycerin (Nitroglycerin 0.4 Mg Sl Tab) 0.4 mg SL NOW ONE Stop: 03/16/21 04:54 Last Admin: 03/16/21 04:57 Dose: 0.4 mg Documented by: DOMINGA Insulin Lispro U-100 100 Unit/Ml (3 Ml) Insulin Pen 50 unit SUBCUT [facility] Last Admin: 03/17/21 14:48 Dose: 50 unit Documented by: Admin: 03/17/21 10:55 Dose: 50 unit Documented by: Admin: 03/17/21 08:04 Dose: Not Given Documented by: Admin: 03/16/21 18:37 Dose: 40 unit Documented by: JOHN Insulin Regular Hum (U-500 Conc Pen) 50 unit SUBCUT [facility] Last Admin: 03/17/21 10:55 Dose: 35 unit Documented by: Admin: 03/17/21 08:04 Dose: Not Given Documented by: Admin: 03/16/21 18:17 Dose: 40 unit Documented by: JOHN Cinacalcet [Sensipar (] 30 Mg Tablet) 30 mg PO DAILY [facility] Last Admin: 03/17/21 08:09 Dose: 30 mg Documented by: JOHN Stored In Pharmacy 1 each PO PRN PRN PRN Reason: PROTOCOL Non-Formulary Medication (Desvenlafaxine) 1 tab PO BID [facility] Last Admin: 03/17/21 15:31 Dose: Not Given Documented by: DARLEEN Desvenlafaxine Er (Tablets 100mg) 0 mg PO DAILY [facility] Last Admin: 03/17/21 14:46 Dose: 100 mg Documented by: JOHN Pantoprazole Sodium (Pantoprazole Dr 40 Mg Tablet) 40 mg PO DAILY@0700 [facility] Last Admin: 03/17/21 08:07 Dose: 40 mg Documented by: JOHN Rifaximin (Rifaximin 550 Mg Tablet) 550 mg PO BID [facility] Last Admin: 03/17/21 08:09 Dose: 550 mg Documented by: Admin: 03/16/21 20:10 Dose: 550 mg Documented by: ERAN Spironolactone (Spironolactone 25 Mg Tablet) 50 mg PO DAILY [facility] Last Admin: 03/17/21 08:09 Dose: 50 mg Documented by: JOHN Reevaluation(s) Reevaluation #1: Patient feeling much better. Reviewed results with patient and understands may need admit here after review with die maker stamping Time: 07:20 Consultations Consultation #1: Spoke with Dr. Lopez, patient's die maker stamping. Reviewed patient's cardiac reports and STEMI report as well as catheterization report as well as stress test from June 2020. Patient needs to be admitted for repeat echocardiogram and stress test Time: 07:33 Consultation #2: Spoke with hospitalist, Dr. Ocampo, will accept patient Time: 07:54 Vital Signs Vital signs: Vital Signs - 8 hr 03/16/21 04:49 03/16/21 04:57 03/16/21 05:05 Temperature 98.4 F Pulse Rate 79 77 81 Respiratory Rate 17 10 L Blood Pressure 140/65 140/65 Pulse Oximetry 98 96 03/16/21 05:09 03/16/21 05:30 03/16/21 06:00 Temperature Pulse Rate 79 75 76 Respiratory Rate 19 17 33 H Blood Pressure 105/56 L 129/60 116/59 L Pulse Oximetry 97 99 100 03/16/21 06:30 03/16/21 07:00 03/16/21 07:30 Temperature Pulse Rate 78 79 79 Respiratory Rate 19 19 20 Blood Pressure 120/57 L 132/63 132/60 Pulse Oximetry 98 98 99 MDM - Chest Pain <Bea Esme, DO - Last Filed: 03/19/21 07:19> Lab Data Result diagrams: 03/17/21 05:12 03/17/21 05:12 Labs: Lab Results 03/16/21 03/16/21 03/16/21 Range/Units 04:20 04:20 06:20 WBC 5.5 (4.5-11.0) X10^3/uL RBC 4.85 (4.0-5.2) X10^6/uL Hgb 13.0 (12.0-16.0) g/dL Hct 40.3 (36-46) % MCV 83.1 (80-100) fL MCH 26.8 (26-34) PG MCHC 32.3 (30-36) % RDW 22.1 H (11.6-14.8) % Plt Count 80 L (150-400) X10^3/uL Neut % (Auto) 75.1 H (50-75) % Lymph % (Auto) 9.4 L (25-40) % [place] % (Auto) 12.4 (3-14) % Eos % (Auto) 1.7 L (2-4) % Baso % (Auto) 1.4 (0-2) % Neut # (Auto) 4100 (1916-9017) /uL Lymph # (Auto) 500 L (5222-8500) /uL [place] # (Auto) 700 (0-900) /uL Eos # (Auto) 100 (0-450) /uL Baso # (Auto) 100 (0-100) /uL RBC Morphology Normal morphology Sodium 140 (137-145) mmol/L Potassium 4.3 (3.4-5.1) mmol/L Chloride 103 (98-107) mmol/L Carbon Dioxide 30 (22-32) mmol/L BUN 37 H (7-17) mg/dL Creatinine 1.25 H (0.52-1.04) mg/dL Estimated GFR 42.9 L (>60) mL/min BUN/Creatinine Ratio 29.6 H (6-22) Glucose 196 H (80-110) mg/dL Calcium 9.6 (8.4-10.2) mg/dL Total Bilirubin 0.9 (0.2-1.3) mg/dL AST 79 H (14-36) IU/L ALT 22 (<35) IU/L Alkaline Phosphatase 163 H (38-126) U/L Total Creatine Kinase 59 (30-135) U/L CK-MB (CK-2) TNP CK-MB (CK-2) Rel Index TNP Troponin I 0.015 0.014 (0.01-0.034) ng/mL NT-Pro-B Natriuret Pep 109 (<125) pg/mL Total Protein 8.7 H (6.3-8.2) g/dL Albumin 4.2 (3.5-5.0) g/dL Globulin 4.5 H (1.7-4.1) g/dL Albumin/Globulin Ratio 0.9 L (1.0-2.8) Lipase 409 H (23-300) U/L Imaging Data Chest x-ray: My Impression: No acute cardiopulmonary process ECG Data Interpretation: EKG 1. Sinus rhythm rate 79 MS interval 150 QRS [address] depression in the [address] elevation different from previous EKG EKG 2. Sinus rhythm rate [address] depressions as seen previously MDM Narrative Medical decision making narrative: Patient has known coronary artery disease with chest burning. She was taken 3 previous nitroglycerin. She was given more in the emergency department. 2 negative troponins chest pain free. Patient signed out to Dr. Mahoney <Kuldeep Mahoney MD - Last Filed: 03/18/21 21:12> Differential Diagnosis Differential diagnosis: Likely stable angina, unstable angina pectoris, atypical chest pain, st elevation myocardial infarction and chest pain Lab Data Labs: Lab Results 03/16/21 03/16/21 03/16/21 Range/Units 04:20 04:20 06:20 WBC 5.5 (4.5-11.0) X10^3/uL RBC 4.85 (4.0-5.2) X10^6/uL Hgb 13.0 (12.0-16.0) g/dL Hct 40.3 (36-46) % MCV 83.1 (80-100) fL MCH 26.8 (26-34) PG MCHC 32.3 (30-36) % RDW 22.1 H (11.6-14.8) % Plt Count 80 L (150-400) X10^3/uL Neut % (Auto) 75.1 H (50-75) % Lymph % (Auto) 9.4 L (25-40) % [place] % (Auto) 12.4 (3-14) % Eos % (Auto) 1.7 L (2-4) % Baso % (Auto) 1.4 (0-2) % Neut # (Auto) 4100 (3987-5783) /uL Lymph # (Auto) 500 L (1210-4140) /uL [place] # (Auto) 700 (0-900) /uL Eos # (Auto) 100 (0-450) /uL Baso # (Auto) 100 (0-100) /uL RBC Morphology Normal morphology Sodium 140 (137-145) mmol/L Potassium 4.3 (3.4-5.1) mmol/L Chloride 103 (98-107) mmol/L Carbon Dioxide 30 (22-32) mmol/L BUN 37 H (7-17) mg/dL Creatinine 1.25 H (0.52-1.04) mg/dL Estimated GFR 42.9 L (>60) mL/min BUN/Creatinine Ratio 29.6 H (6-22) Glucose 196 H (80-110) mg/dL Calcium 9.6 (8.4-10.2) mg/dL Total Bilirubin 0.9 (0.2-1.3) mg/dL AST 79 H (14-36) IU/L ALT 22 (<35) IU/L Alkaline Phosphatase 163 H (38-126) U/L Total Creatine Kinase 59 (30-135) U/L CK-MB (CK-2) TNP CK-MB (CK-2) Rel Index TNP Troponin I 0.015 0.014 (0.01-0.034) ng/mL NT-Pro-B Natriuret Pep 109 (<125) pg/mL Total Protein 8.7 H (6.3-8.2) g/dL Albumin 4.2 (3.5-5.0) g/dL Globulin 4.5 H (1.7-4.1) g/dL Albumin/Globulin Ratio 0.9 L (1.0-2.8) Lipase 409 H (23-300) U/L Imaging Data Chest x-ray: Radiologist's Impression: [address] [id number] ReportSigned Patient: Marianela Valdez#: [id number]: [id number]:[id number]/Sex: 65 / FDate of Service: 03/16/21Lo: [id number] Number: [id number] Procedure: XR chest 1V Ordering Provider: Bea Victoria D.O. PROCEDURE: XR CHEST 1V INDICATIONS: chest pain TECHNIQUE: One view of the chest was acquired. COMPARISON: [facility], XR CHEST 1V, 09/16/2020, 18:51. FINDINGS: Surgical changes and devices: None. Lungs and pleura: Lungs are clear. No pleural effusions or pneumothorax. Mediastinum: Mediastinal contours appear normal. Heart size is normal. Bones and chest wall: No suspicious bony lesions. Overlying soft tissues appear unremarkable. IMPRESSION: No acute cardiopulmonary disease process. Dictated by: Radha Branham MD, PhD on 03/16/2021 at 8:23 Approved by: Radha Branham MD, PhD on 03/16/2021 at 8:23 Discharge Plan Departure Patient Disposition: Admitted as Observation Clinical Impression: Chest pain Qualifiers: Chest pain type: unspecified Qualified Code(s): R07.9 - Chest pain, unspecified Admit Date/Time: 03/16/21 07:54 Admit Provider: Andrea Ocampo
[2021-03-16] MEDS: NITROGLYCERIN 0.4 MG SL TAB SL (04:57)
[2021-03-16 05:09] LABS: Add Manual Diff / Slide Review NO; Alanine Aminotransferase 22 IU/L (<35); Albumin 4.2 g/dL (3.5-5.0); Albumin Globulin Ratio 0.9 (1.0-2.8); Alkaline Phosphatase 163 U/L (38-126); Aspartate Aminotransferase 79 IU/L (14-36); BUN Creatinine Ratio 29.6 (6-22); Basophils Absolute Auto 100 /uL (0-100); Basophils Percent Auto 1.4 % (0-2); Bilirubin Total 0.9 mg/dL (0.2-1.3); Blood Urea Nitrogen 37 mg/dL (7-17); Calcium 9.6 mg/dL (8.4-10.2); Carbon Dioxide 30 mmol/L (22-32); Chloride 103 mmol/L (98-107); Creatine Kinase 59 U/L (30-135); Eosinophils Absolute Auto 100 /uL (0-450); Eosinophils Percent Auto 1.7 % (2-4); Estimated Glomerular Filt Rate 42.9 mL/min (>60); Globulin 4.5 g/dL (1.7-4.1); Glucose 196 mg/dL (80-110); HEMOLYSIS 34 (0-50); Hematocrit 40.3 % (36-46); Lipase 409 U/L (23-300); Lymphocytes Absolute Auto 500 /uL (1100-4500); Lymphocytes Percent Auto 9.4 % (25-40); Mean Corpuscular HGB Conc 32.3 % (30-36); Mean Corpuscular Hemoglobin 26.8 PG (26-34); Mean Corpuscular Volume 83.1 fL (80-100); Monocytes Absolute Auto 700 /uL (0-900); Monocytes Percent Auto 12.4 % (3-14); Neutrophils Absolute Auto 4100 /uL (1500-7000); Neutrophils Percent Auto 75.1 % (50-75); Platelet Count 80 X10^3/uL (150-400); Potassium 4.3 mmol/L (3.4-5.1); Red Blood Cell Count 4.85 X10^6/uL (4.0-5.2); Red Cell Distribution Width 22.1 % (11.6-14.8); Sodium 140 mmol/L (137-145); Total Protein 8.7 g/dL (6.3-8.2); White Blood Cell Count 5.5 X10^3/uL (4.5-11.0)
[2021-03-16 05:20] LABS: NT-proBNP (BNP-Adult 18+) 109 pg/mL (<125); Troponin I 0.015 ng/mL (0.01-0.034)
[2021-03-16 06:28] LABS: RBC Morphology Normal Morphology
[2021-03-16 06:49] LABS: Troponin I 0.014 ng/mL (0.01-0.034)
[2021-03-16 09:24] LABS: COVID19 - ADMIT (NP swab/PCR) Negative (Negative)
--- NOTE | 2021-03-16 12:05 | PC.NURSE ---
Patient resting in bed with eyes closed at this time. Breathing unlabored. Tele on. Saline locked at this time. Patient calls before getting OOB. Bed alarm on. Belongings and call light remain in reach.
[2021-03-16 13:53] LABS: Troponin I 0.013 ng/mL (0.01-0.034)
--- NOTE | 2021-03-16 14:39 | P.HP_ITS ---
History of Present Illness History of Present Illness Date Patient Seen: 03/16/21 Chief complaint: Chest Pain Narrative: Ms. Marianela Valdez is a 65-year-old female with the past medi manuela histories significant for AML in remission (S/P stem cell/bone marrow transplant in 1993), coronary artery disease, STEMI, (06/2019), s/p coronary stent x2, insulin-dependent diabetic, restrictive lung disease secondary to scleroderma, liver cirrhosis secondary to anti rejection medication (followed at hepatology), thrombocytopenia, esophageal varices with history of multiple upper GI bleeds, generalized anxiety disorder, depression and OCD Patient History Medical History AML (acute myeloid leukemia) in remission Cirrhosis Depression Generalized anxiety disorder Hepatic encephalopathy History of ST elevation myocardial infarction (STEMI) History of upper gastrointestinal bleeding Insulin dependent diabetes mellitus Obsessive compulsive disorder Psoriasis Restrictive lung disease Scleroderma Thrombocytopenia Surgical History History of bone marrow transplant History of colonoscopy History of coronary artery stent placement Family & Social History Family History Father Heart disease S/P CABG x 4 Hypertension Mother Gallstones Brother No significant medical problems Sister Diabetes mellitus Social History: household members none Safety & Behavioral: Feels Safe in Current Yes Environment Suicidal Ideation Description None Suicide Plan Description No Plan Tobacco & Substance use: Smoking Status Never smoker alcohol intake former alcohol intake frequency 0-2 drinks per day Substance Use Type does not use Meds Home Medications and Allergies Home Medications Medication Instructions Recorded Confirmed Type levothyroxine 50 mcg tablet 25 mcg PO DAILY #0 07/17/11 03/16/21 History cinacalcet 30 mg tablet (Sensipar) 30 mg PO DAILY #0 12/16/16 03/16/21 History rifaximin 550 mg tablet 550 mg PO BID 30 Days #60 tab 06/25/18 03/16/21 History aspirin 81 mg tablet,delayed 81 mg PO DAILY 08/12/19 03/16/21 History release insulin aspart U-100 100 unit/mL 50 unit SUBCUT TID ml 08/12/19 03/16/21 History (3 mL) subcutaneous pen metoprolol succinate 25 mg 25 mg PO DAILY 08/12/19 03/16/21 History tablet,extended release 24 hr nitroglycerin 0.4 mg sublingual 0.4 mg SL PRN PRN tab 08/12/19 03/16/21 History tablet pantoprazole 40 mg tablet,delayed 40 mg PO DAILY 08/12/19 03/16/21 History release spironolactone 25 mg tablet 50 mg PO DAILY #0 tab 08/12/19 03/16/21 History atorvastatin 40 mg tablet 80 mg PO BEDTIME tab 01/20/20 03/16/21 History insulin regular hum U-500 conc 50 unit SUBCUT TID ml 01/20/20 03/16/21 History (Humulin R U-500 (Conc) Insulin Kwikpen) desvenlafaxine 100 mg See Rx Instructions .ROUTE 02/17/21 03/16/21 Rx tablet,extended release 24 hr .COMPLEX #30 tab Allergies Allergy/AdvReac Type Severity Reaction Status Date / Time hydrocodone Allergy ITCHING Verified 01/28/21 18:49 oxycodone Allergy ITCHING Verified 01/28/21 18:49 propofol AdvReac Unknown Verified 01/28/21 18:49 morphine AdvReac Vomiting Verified 01/28/21 18:49 Exam Vital Signs (past 8 hours): - 03/16/21 07:00 03/16/21 07:30 03/16/21 08:00 Temperature Pulse Rate 79 79 78 Respiratory Rate 19 20 20 Blood Pressure 132/63 132/60 Pulse Oximetry 98 99 100 03/16/21 08:04 03/16/21 09:00 03/16/21 12:10 Temperature 98.3 F 97.4 F L Pulse Rate 82 69 Respiratory Rate 14 18 Blood Pressure 137/60 118/62 129/71 Pulse Oximetry 97 95 Oxygen Delivery Method Room Air Oxygen Flow Rate 0 Objective Labs Result Diagrams: 03/16/21 04:20 03/16/21 04:20 Labs: Laboratory Results - last 24 hr 03/16/21 03/16/21 03/16/21 04:20 04:20 06:20 WBC 5.5 RBC 4.85 Hgb 13.0 Hct 40.3 MCV 83.1 MCH 26.8 MCHC 32.3 RDW 22.1 H Plt Count 80 L Neut % (Auto) 75.1 H Lymph % (Auto) 9.4 L [place] % (Auto) 12.4 Eos % (Auto) 1.7 L Baso % (Auto) 1.4 Neut # (Auto) 4100 Lymph # (Auto) 500 L [place] # (Auto) 700 Eos # (Auto) 100 Baso # (Auto) 100 RBC Morphology Normal morphology Sodium 140 Potassium 4.3 Chloride 103 Carbon Dioxide 30 BUN 37 H Creatinine 1.25 H Estimated GFR 42.9 L BUN/Creatinine Ratio 29.6 H Glucose 196 H Calcium 9.6 Total Bilirubin 0.9 AST 79 H ALT 22 Alkaline Phosphatase 163 H Total Creatine Kinase 59 CK-MB (CK-2) TNP CK-MB (CK-2) Rel Index TNP Troponin I 0.015 0.014 NT-Pro-B Natriuret Pep 109 Total Protein 8.7 H Albumin 4.2 Globulin 4.5 H Albumin/Globulin Ratio 0.9 L Lipase 409 H SARS-CoV-2 (PCR) 03/16/21 03/16/21 08:25 12:23 WBC RBC Hgb Hct MCV MCH MCHC RDW Plt Count Neut % (Auto) Lymph % (Auto) [place] % (Auto) Eos % (Auto) Baso % (Auto) Neut # (Auto) Lymph # (Auto) [place] # (Auto) Eos # (Auto) Baso # (Auto) RBC Morphology Sodium Potassium Chloride Carbon Dioxide BUN Creatinine Estimated GFR BUN/Creatinine Ratio Glucose Calcium Total Bilirubin AST ALT Alkaline Phosphatase Total Creatine Kinase CK-MB (CK-2) CK-MB (CK-2) Rel Index Troponin I 0.013 NT-Pro-B Natriuret Pep Total Protein Albumin Globulin Albumin/Globulin Ratio Lipase SARS-CoV-2 (PCR) Negative Quality VTE Deep Vein Thrombosis/Pulmonary Embolism Present on Admission: No
[2021-03-16] MEDS: INSULIN REGULAR HUM U 50 EACH SUBCUT (18:17)
[2021-03-16] MEDS: INSULIN LISPRO 50 EACH SUBCUT (18:37)
[2021-03-16] MEDS: ATORVASTATIN 20 MG TABLET 80 MG PO (20:10)
[2021-03-16] MEDS: RIFAXIMIN 550 MG TABLET PO (20:10)
--- NOTE | 2021-03-16 21:04 | PM.HP.1 ---
History of Present Illness History of Present Illness Date Patient Seen: 03/16/21 Time Patient Seen: 13:30 Chief complaint: Chest Pain Narrative: Ms. 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 Patient had chest pain that woke her from sleep around 3AM. Initially the pain was sharp and located on the left side of her upper chest. This progressed to a dull burning sensation simiar to her previous PR. It also radiated to her left shoulder and was associated with diaphoresis, and nausea. Did not seem to worsen with inspiration. She denied palpitations, vomiting. No fever, chills, abdominal pain, LE edema or orthopnea. Pain was relieved somewhat with 3x nitroglycerin tabs at home, after her 3rd pain had not resolved and she called EMS. In the ER, patient had two troponins that were within normal limits. EKG appeared unchanged compared to prior. ER provider discussed with cardiology whom recommended stress testing despite previously abnormal testing that was deemed low risk in 06/2020, heart score indicates high risk. Her labs were notable for a slight bump in her creatinine, but was otherwise unremarkable. Patient History Medical History AML (acute myeloid leukemia) in remission Cirrhosis Depression Generalized anxiety disorder Hepatic encephalopathy History of ST elevation myocardial infarction (STEMI) History of upper gastrointestinal bleeding Insulin dependent diabetes mellitus Obsessive compulsive disorder Psoriasis Restrictive lung disease Scleroderma Thrombocytopenia Surgical History History of bone marrow transplant History of colonoscopy History of coronary artery stent placement Family & Social History Family History Father Heart disease S/P CABG x 4 Hypertension Mother Gallstones Brother No significant medical problems Sister Diabetes mellitus Social History: household members none Safety & Behavioral: Feels Safe in Current Yes Environment Suicidal Ideation Description None Suicide Plan Description No Plan Tobacco & Substance use: Smoking Status Never smoker alcohol intake former alcohol intake frequency 0-2 drinks per day Substance Use Type does not use Meds Home Medications and Allergies Home Medications Medication Instructions Recorded Confirmed Type levothyroxine 50 mcg tablet 25 mcg PO DAILY #0 07/17/11 03/16/21 History cinacalcet 30 mg tablet (Sensipar) 30 mg PO DAILY #0 12/16/16 03/16/21 History rifaximin 550 mg tablet 550 mg PO BID 30 Days #60 tab 06/25/18 03/16/21 History aspirin 81 mg tablet,delayed 81 mg PO DAILY 08/12/19 03/16/21 History release insulin aspart U-100 100 unit/mL 50 unit SUBCUT TID ml 08/12/19 03/16/21 History (3 mL) subcutaneous pen metoprolol succinate 25 mg 25 mg PO DAILY 08/12/19 03/16/21 History tablet,extended release 24 hr nitroglycerin 0.4 mg sublingual 0.4 mg SL PRN PRN tab 08/12/19 03/16/21 History tablet pantoprazole 40 mg tablet,delayed 40 mg PO DAILY 08/12/19 03/16/21 History release spironolactone 25 mg tablet 50 mg PO DAILY #0 tab 08/12/19 03/16/21 History atorvastatin 40 mg tablet 80 mg PO BEDTIME tab 01/20/20 03/16/21 History insulin regular hum U-500 conc 50 unit SUBCUT TID ml 01/20/20 03/16/21 History (Humulin R U-500 (Conc) Insulin Kwikpen) desvenlafaxine 100 mg See Rx Instructions .ROUTE 02/17/21 03/16/21 Rx tablet,extended release 24 hr .COMPLEX #30 tab Allergies Allergy/AdvReac Type Severity Reaction Status Date / Time hydrocodone Allergy ITCHING Verified 01/28/21 18:49 oxycodone Allergy ITCHING Verified 01/28/21 18:49 propofol AdvReac Unknown Verified 01/28/21 18:49 morphine AdvReac Vomiting Verified 01/28/21 18:49 Review of Systems Review of Systems Narrative: All other systems reviewed with the patient and are negative unless otherwise stated. Exam Vital Signs (past 8 hours): - 03/16/21 15:20 03/16/21 17:00 03/16/21 19:30 Temperature 97.7 F 97.5 F L Pulse Rate 77 82 Respiratory Rate 17 17 Blood Pressure 110/50 L 121/64 Pulse Oximetry 97 Oxygen Delivery Method Room Air Oxygen Flow Rate 0 Narrative Exam Narrative: GENERAL APPEARANCE: well developed, well nourished, in no acute distress. HEENT: NCAT, MMM NECK: supple, trachea midline SKIN: no rashes or erythema, sclerotic LE bilaterally chronic HEART: regular rate and rhythm, S1-S2, no murmur, no rubs or gallops, palpable pedal pulses, no edema LUNGS: clear to auscultation bilaterally, no coarseness crackles or wheezing, no cough present CHEST: Symmetrical movement, no accessory muscle use. ABDOMEN: s nt nd EXTREMITIES: moves all extremities, strength is 5/5 and symmetrical, no joint deformities or effusions. NEUROLOGIC: AAO x3, no focal or lateralizing neurologic deficits, cranial nerves II-XII grossly intact, diminished sensation bilateral lower extremities, hearing grossly normal to speech. PSYCH: Good eye contact, linear thought, cooperative, appropriate affect, stable behavior Objective ECG Impression: normal sinus rhythm, in 1st EKG nonspecific ST depression vs basline wander in V3 only. resolved on repeat. Labs Result Diagrams: 03/16/21 04:20 03/16/21 04:20 Labs: Laboratory Results - last 24 hr 03/16/21 03/16/21 03/16/21 04:20 04:20 06:20 WBC 5.5 RBC 4.85 Hgb 13.0 Hct 40.3 MCV 83.1 MCH 26.8 MCHC 32.3 RDW 22.1 H Plt Count 80 L Neut % (Auto) 75.1 H Lymph % (Auto) 9.4 L [place] % (Auto) 12.4 Eos % (Auto) 1.7 L Baso % (Auto) 1.4 Neut # (Auto) 4100 Lymph # (Auto) 500 L [place] # (Auto) 700 Eos # (Auto) 100 Baso # (Auto) 100 RBC Morphology Normal morphology Sodium 140 Potassium 4.3 Chloride 103 Carbon Dioxide 30 BUN 37 H Creatinine 1.25 H Estimated GFR 42.9 L BUN/Creatinine Ratio 29.6 H Glucose 196 H Calcium 9.6 Total Bilirubin 0.9 AST 79 H ALT 22 Alkaline Phosphatase 163 H Total Creatine Kinase 59 CK-MB (CK-2) TNP CK-MB (CK-2) Rel Index TNP Troponin I 0.015 0.014 NT-Pro-B Natriuret Pep 109 Total Protein 8.7 H Albumin 4.2 Globulin 4.5 H Albumin/Globulin Ratio 0.9 L Lipase 409 H SARS-CoV-2 (PCR) 03/16/21 03/16/21 08:25 12:23 WBC RBC Hgb Hct MCV MCH MCHC RDW Plt Count Neut % (Auto) Lymph % (Auto) [place] % (Auto) Eos % (Auto) Baso % (Auto) Neut # (Auto) Lymph # (Auto) [place] # (Auto) Eos # (Auto) Baso # (Auto) RBC Morphology Sodium Potassium Chloride Carbon Dioxide BUN Creatinine Estimated GFR BUN/Creatinine Ratio Glucose Calcium Total Bilirubin AST ALT Alkaline Phosphatase Total Creatine Kinase CK-MB (CK-2) CK-MB (CK-2) Rel Index Troponin I 0.013 NT-Pro-B Natriuret Pep Total Protein Albumin Globulin Albumin/Globulin Ratio Lipase SARS-CoV-2 (PCR) Negative Assessment & Plan Assessment & Plan narrative: Ms. 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 Admitted for stress testing per cardiology recommendations. 1. chest pain, acute, present on admission in setting of known CAD with history of STEMI in 06/2019 - patient with recent stress testing 06/2020 which was abnormal, but classified as low risk study. Cardiology per ER provider recommended nuclear stress and echo. both have been ordered. - troponins are negative - chest pain has improved. - heart score indicates high risk, though a fair part of her score is based on past history. - a1c tsh and lipid panel tomorrow. 2. 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 check a1c. 3. MELISA, present on admission - unclear etiology currently, suspect slight dehydration. Will continue to follow. If worsening check UA and ultrasound to rule out obstruction. Very mild currently with creatinine of 1.25. 4. restrictive lung disease secondary to scleroderma, chronic 5. chronic cirrhosis and chronic thrombocytopenia, stable. 6. history of AML in remission. 7. KATRIN, depression, OCD, chronic and stable. - no SI or HI Code: Full as discussed with the patient. Surrogate decision maker is her friend, Carolynn, and all other contacts listed in her chart she states. Dispo: admit under observation DVT: lovenox daily. I have utilized all available immediate resources to obtain, update, or review the patient's current medications. Quality VTE Deep Vein Thrombosis/Pulmonary Embolism Present on Admission: No MIPS - Admit I confirm the patient?s Advance Care Plan is present, Code status is documented, Surrogate decision maker is in patient?s record [If Yes, STOP here]: Yes
[2021-03-17] VITALS (9 sets, daily range): BP systolic 111–144; BP diastolic 65–78; PULSE 70–93; RESP 16–20; TEMP 36.2–36.7; O2SAT 94–97
[2021-03-17 05:37] LABS: Ammonia (NH3) 54 umol/L (9-30)
[2021-03-17 05:45] LABS: Basophils Absolute Auto 100 /uL (0-100); Basophils Percent Auto 1.4 % (0-2); Eosinophils Absolute Auto 100 /uL (0-450); Eosinophils Percent Auto 2.6 % (2-4); Hematocrit 39.6 % (36-46); Hemoglobin 12.8 g/dL (12.0-16.0); Lymphocytes Absolute Auto 400 /uL (1100-4500); Lymphocytes Percent Auto 10.6 % (25-40); Mean Corpuscular HGB Conc 32.3 % (30-36); Mean Corpuscular Hemoglobin 26.7 PG (26-34); Mean Corpuscular Volume 82.9 fL (80-100); Monocytes Absolute Auto 400 /uL (0-900); Monocytes Percent Auto 11.1 % (3-14); Neutrophils Absolute Auto 2900 /uL (1500-7000); Neutrophils Percent Auto 74.3 % (50-75); Platelet Count 65 X10^3/uL (150-400); Red Blood Cell Count 4.78 X10^6/uL (4.0-5.2); White Blood Cell Count 3.9 X10^3/uL (4.5-11.0)
[2021-03-17 06:03] LABS: Add Manual Diff / Slide Review SLIDE REVIEW; BUN Creatinine Ratio 30.6 (6-22); Blood Urea Nitrogen 30 mg/dL (7-17); Carbon Dioxide 29 mmol/L (22-32); Chloride 105 mmol/L (98-107); Cholesterol 141 mg/dL (140-199); Estimated Glomerular Filt Rate 56.8 mL/min (>60); Glucose 100 mg/dL (80-110); HDL Cholesterol 55 mg/dL (40-60); HEMOLYSIS < 15 (0-50); LDL Cholesterol Calculated 61 mg/dL (<100); Magnesium 1.9 mg/dL (1.6-2.3); Potassium 4.1 mmol/L (3.4-5.1); Sodium 139 mmol/L (137-145); Triglycerides 125 mg/dL (35-150)
[2021-03-17] MEDS: LEVOTHYROXINE 50 MCG TABLET 25 MCG PO (06:04)
[2021-03-17 06:10] LABS: Hemoglobin A1C% w Est Avg Glu 6.5 % (4.0-6.0)
[2021-03-17 06:28] LABS: TSH w/ Reflex to FT4 3.37 uIU/mL (0.47-4.68)
[2021-03-17] MEDS: PANTOPRAZOLE DR 40 MG TABLET PO (08:07)
[2021-03-17] MEDS: ASPIRIN EC 81 MG TABLET PO (08:07)
[2021-03-17] MEDS: CINACALCET 30 MG 30 EACH PO (08:09)
[2021-03-17] MEDS: RIFAXIMIN 550 MG TABLET PO (08:09)
[2021-03-17] MEDS: SPIRONOLACTONE 25 MG TABLET 50 MG PO (08:09)
[2021-03-17 09:43] LABS: Anisocytosis 2+; Macrocytosis 1+; Platelet Estimate Decreased on smear
[2021-03-17] MEDS: INSULIN REGULAR HUM U 50 EACH SUBCUT (10:55)
[2021-03-17] MEDS: INSULIN LISPRO 50 EACH SUBCUT ×2 (10:55→14:48)
[2021-03-17] MEDS: DESVENLAFAXINE 100 MG PO (14:46)
--- NOTE | 2021-03-17 15:33 | CM.IDA ---
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 Patient eager to return home this afternoon/evening and will have a friend take her home. Patient states she is indp at baseline and denies needs from this GENERAL MAGISTRATE. Patient appreciative of the visit, GENERAL MAGISTRATE left contact information if any DC needs or concerns arise. No needs expected from DC planning team although will remain available in case this changes today. MARK Duffy Discharge Planning/Care Management CM Discharge Assessment Start: 03/17/21 15:32 Freq: Status: Active Protocol: Document 03/17/21 15:32 EUSEBIO (Rec: 03/17/21 15:33 [email or web address] [id number]) Discharge Planning Assessment Assigned Mingle Operator MARK Fernandez DPOA/Assigned Designee Name Zehra Cole, friend Contact Information [phone] Advance Directives? No Advance Directives on File No History Provided By Patient,Medical Record Household Members none Type of transporation used prior to Drives own vehicle admit Independent with ADL's Yes Is patient alert and oriented? Yes Barriers to Discharge No Discharge Plan Home Transportation Arrangement Patient has a friend who can transport at d/c Referrals Initiated None needed
--- NOTE | 2021-03-17 17:07 | P.DS_ITS ---
History of Present Illness History of Present Illness Date Patient Seen: 03/17/21 Time Patient Seen: 17:07 Chief complaint: Chest Pain Narrative: Ms. 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 Patient had chest pain that woke her from sleep around 3AM. Initially the pain was sharp and located on the left side of her upper chest. This progressed to a dull burning sensation simiar to her previous NM. It also radiated to her left shoulder and was associated with diaphoresis, and nausea. Did not seem to worsen with inspiration. She denied palpitations, vomiting. No fever, chills, abdominal pain, LE edema or orthopnea. Pain was relieved somewhat with 3x nitroglycerin tabs at home, after her 3rd pain had not resolved and she called EMS. In the ER, patient had two troponins that were within normal limits. EKG appeared unchanged compared to prior. ER provider discussed with cardiology whom recommended stress testing despite previously abnormal testing that was deemed low risk in 06/2020, heart score indicates high risk. Her labs were notable for a slight bump in her creatinine, but was otherwise unremarkable. Discharge Providers Provider Date of admission: 03/16/21 07:54 Discharge Date: 03/17/21 Primary care physician: Timur Schwartz MD Discharge provider: Andrea Ocampo DO Summary Hospital Course Discharge Diagnosis: 1. chest pain, acute, present on admission in setting of known CAD with history of STEMI in 06/2019 2. 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 MELISA, present on admission,resolved 4. restrictive lung disease secondary to scleroderma, chronic 5. chronic cirrhosis and chronic thrombocytopenia, stable. 6. history of AML in remission. 7. KATRIN, depression, OCD, chronic and stable. Hospital Course: Ms. 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 She had negative troponins and EKG showed non- specific changes. Her cardiology group recommended stress testing according to the ER provider. Patient had stress testing that was deemed low risk study, similar to previous stress testing approximately 8 months ago. Her symptoms had resolved shortly after arrival to the hospital floor. She was discharged home the following day after stress testing. Exam Vital Signs (past 8 hours): - 03/17/21 12:00 03/17/21 13:00 03/17/21 15:43 Temperature 97.6 F 97.7 F Pulse Rate 93 H 91 H Respiratory Rate 16 20 Blood Pressure 111/65 132/78 Pulse Oximetry 94 95 95 Oxygen Delivery Method Room Air Oxygen Flow Rate 0 Narrative Exam Narrative: GENERAL APPEARANCE: well developed, well nourished, in no acute distress. HEENT: NCAT, MMM NECK: supple, trachea midline SKIN: no rashes or erythema, sclerotic LE bilaterally chronic HEART: regular rate and rhythm, S1-S2, no murmur, no rubs or gallops, palpable pedal pulses, no edema LUNGS: clear to auscultation bilaterally, no coarseness crackles or wheezing, no cough present CHEST: Symmetrical movement, no accessory muscle use. ABDOMEN: s nt nd EXTREMITIES: moves all extremities, strength is 5/5 and symmetrical, no joint deformities or effusions. NEUROLOGIC: AAO x3, no focal or lateralizing neurologic deficits, cranial nerves II-XII grossly intact, diminished sensation bilateral lower extremities, hearing grossly normal to speech. PSYCH: Good eye contact, linear thought, cooperative, appropriate affect, stable behavior Objective Labs Result Diagrams: 03/17/21 05:12 03/17/21 05:12 Labs: Laboratory Results - last 24 hr 03/17/21 03/17/21 03/17/21 05:12 05:12 05:12 WBC 3.9 L RBC 4.78 Hgb 12.8 Hct 39.6 MCV 82.9 MCH 26.7 MCHC 32.3 RDW 22.0 H Plt Count 65 L Neut % (Auto) 74.3 Lymph % (Auto) 10.6 L [place] % (Auto) 11.1 Eos % (Auto) 2.6 Baso % (Auto) 1.4 Neut # (Auto) 2900 Lymph # (Auto) 400 L [place] # (Auto) 400 Eos # (Auto) 100 Baso # (Auto) 100 Platelet Estimate Decreased on smear RBC Morphology See below Anisocytosis 2+ H Macrocytosis 1+ H Sodium 139 Potassium 4.1 Chloride 105 Carbon Dioxide 29 BUN 30 H Creatinine 0.98 Estimated GFR 56.8 L BUN/Creatinine Ratio 30.6 H Glucose 100 Hemoglobin A1c 6.5 H Calcium 9.0 Magnesium 1.9 Ammonia Triglycerides 125 Cholesterol 141 LDL Cholesterol, Calc 61 HDL Cholesterol 55 TSH 03/17/21 03/17/21 05:12 05:12 WBC RBC Hgb Hct MCV MCH MCHC RDW Plt Count Neut % (Auto) Lymph % (Auto) [place] % (Auto) Eos % (Auto) Baso % (Auto) Neut # (Auto) Lymph # (Auto) [place] # (Auto) Eos # (Auto) Baso # (Auto) Platelet Estimate RBC Morphology Anisocytosis Macrocytosis Sodium Potassium Chloride Carbon Dioxide BUN Creatinine Estimated GFR BUN/Creatinine Ratio Glucose Hemoglobin A1c Calcium Magnesium Ammonia 54 H Triglycerides Cholesterol LDL Cholesterol, Calc HDL Cholesterol TSH 3.37 [facility] Medical History AML (acute myeloid leukemia) in remission Cirrhosis Depression Generalized anxiety disorder Hepatic encephalopathy History of ST elevation myocardial infarction (STEMI) History of upper gastrointestinal bleeding Insulin dependent diabetes mellitus Obsessive compulsive disorder Psoriasis Restrictive lung disease Scleroderma Thrombocytopenia Surgical History History of bone marrow transplant History of colonoscopy History of coronary artery stent placement Family History Father Heart disease S/P CABG x 4 Hypertension Mother Gallstones Brother No significant medical problems Sister Diabetes mellitus Social History marital status: unknown household members: none Smoking Status: Never smoker alcohol intake: former substance use type: does not use Discharge Plan Discharge Plan Patient Disposition: Home Provider Discharge Comment: You were admitted to the hospital with an episode of chest pain. You had a stress test that was deemed low risk for acute ischemia. No medicine changes are recommended. Please follow-up with your primary care provider and then postal service mail processor as previously scheduled. Discharge orders & Medications Prescriptions: Continued rifaximin 550 mg tablet 550 mg PO BID 30 Days Qty: 60 RF: 0 levothyroxine 50 mcg Tablet 25 mcg PO DAILY Qty: 0 RF: 0 cinacalcet [Sensipar] 30 MG tablet 30 mg PO DAILY Qty: 0 RF: 0 aspirin 81 mg tablet,delayed release (DR/EC) 81 mg PO DAILY RF: 0 metoprolol succinate 25 mg tablet extended release 24 hr 25 mg PO DAILY RF: 0 nitroglycerin 0.4 mg tablet, sublingual 0.4 mg SL PRN PRN (Reason: chest pain) RF: 0 pantoprazole 40 mg tablet,delayed release (DR/EC) 40 mg PO DAILY RF: 0 spironolactone 25 mg tablet 50 mg PO DAILY Qty: 0 RF: 0 insulin aspart U-100 100 unit/mL (3 mL) insulin pen 50 unit SUBCUT TID RF: 0 atorvastatin 40 mg tablet 80 mg PO BEDTIME RF: 0 Humulin R U-500 (Conc) Kwikpen 500 unit/mL (3 mL) insulin pen 50 unit subcut TID RF: 0 desvenlafaxine 100 mg tablet extended release 24 hr See Rx Instructions .ROUTE .COMPLEX Qty: 30 RF: 0 Follow up/Referrals: Timur Schwartz MD [Primary Care Provider] - Diet/Activity/Treatments Diet: Diet as Tolerated Activity: As tolerated Discharge Data Primary Care Provider: Timur Schwartz V Attending Provider: Andrea Ocampo VTE Deep Vein Thrombosis/Pulmonary Embolism Present on Admission: No
--- NOTE | 2021-03-17 18:49 | PC.NURSE ---
pt taking her own insulin. pt took 40 of humalog with her dinner. Dr. Mas ok with patient taking her own insulin. discharge instructions given to patient. belongings returned to patient.
== END 2021-03-17 18:50 | disposition home or self-care (01) ==
LOC: ED 07:35 → AC 07:55
PROVIDERS: Emergency Medicine; Nurse Practitioner Family; Admitting Provider Internal Medicine; Emergency Provider Emergency Medicine; PCP Internal Medicine; Referring Provider Emergency Medicine; Visit Provider Internal Medicine
DX: R07.9 Chest pain, unspecified (principal); I25.10 Atherosclerotic heart disease of native coronary artery without angina pectoris; E11.9 Type 2 diabetes mellitus without complications; Z79.4 Long term (current) use of insulin; C92.01 Acute myeloblastic leukemia, in remission; I25.2 Old myocardial infarction; M34.81 Systemic sclerosis with lung involvement; F41.9 Anxiety disorder, unspecified; F32.9 Major depressive disorder, single episode, unspecified; F42.9 Obsessive-compulsive disorder, unspecified; K74.4 Secondary biliary cirrhosis; I85.00 Esophageal varices without bleeding; D69.6 Thrombocytopenia, unspecified; Z20.822 Contact with and (suspected) exposure to COVID-19
CPT/HCPCS: 36415; 71045; 78452; 80048; 80053; 80061; 82140; 82550; 82962; 83036; 83690; 83735; 83880; 84443; 84484; 85025; 87635; 93005; 93010; 93017; 93306; 96372; 99284; C9803; G0378; A9502; J2785

== ENCOUNTER → 2021-04-03 16:38 | Outpatient (CLI) | payer MEDICARE, MEDICAID, SELFPAY ==
[2021-03-16 09:00] VITALS: BMI 24.4
[2021-04-03 19:04] LABS: COVID-19 CEPHEID PCR (VTM/NP) Negative (Negative)
== END ==
PROVIDERS: PCP Internal Medicine; Visit Provider Nurse Practitioner Family
DX: F42.2 Mixed obsessional thoughts and acts (principal); F43.10 Post-traumatic stress disorder, unspecified; F32.89 Other specified depressive episodes; Z20.822 Contact with and (suspected) exposure to COVID-19
CPT/HCPCS: 90837; C9803; U0003

== ENCOUNTER → 2021-04-17 14:10 | Outpatient (CLI) | payer MEDICARE, MEDICAID, SELFPAY ==
[2021-03-16 09:00] VITALS: BMI 24.4
[2021-04-17 16:00] LABS: Alanine Aminotransferase 20 IU/L (<35); Albumin 4.1 g/dL (3.5-5.0); Alkaline Phosphatase 197 U/L (38-126); Aspartate Aminotransferase 71 IU/L (14-36); BUN Creatinine Ratio 25.5 (6-22); Blood Urea Nitrogen 26 mg/dL (7-17); Calcium 9.7 mg/dL (8.4-10.2); Carbon Dioxide 32 mmol/L (22-32); Chloride 102 mmol/L (98-107); Estimated Glomerular Filt Rate 54.2 mL/min (>60); Globulin 4.1 g/dL (1.7-4.1); Glucose 124 mg/dL (80-110); HEMOLYSIS 16 (0-50); Sodium 140 mmol/L (137-145); Total Protein 8.2 g/dL (6.3-8.2)
[2021-04-17 16:22] LABS: Add Manual Diff / Slide Review NO; Basophils Absolute Auto 100 /uL (0-100); Basophils Percent Auto 1.2 % (0-2); Eosinophils Absolute Auto 100 /uL (0-450); Eosinophils Percent Auto 2.6 % (2-4); Hematocrit 40.7 % (36-46); Lymphocytes Absolute Auto 400 /uL (1100-4500); Lymphocytes Percent Auto 8.5 % (25-40); Mean Corpuscular HGB Conc 31.9 % (30-36); Mean Corpuscular Hemoglobin 27.1 PG (26-34); Mean Corpuscular Volume 84.9 fL (80-100); Monocytes Absolute Auto 600 /uL (0-900); Monocytes Percent Auto 12.8 % (3-14); Neutrophils Absolute Auto 3800 /uL (1500-7000); Neutrophils Percent Auto 74.9 % (50-75); Platelet Count 101 X10^3/uL (150-400); Red Cell Distribution Width 18.4 % (11.6-14.8)
[2021-04-21 18:48] LABS: QuantiFERON Mitogen Value >10.00 IU/mL (.); QuantiFERON Nil Value 0.01 IU/mL (.); QuantiFERON TB Gold Plus Negative (Negative); QuantiFERON TB1 Ag Value 0.01 IU/mL (.); QuantiFERON TB2 Ag Value 0.02 IU/mL (.)
== END ==
PROVIDERS: PCP Internal Medicine; Referring Provider Registered Nurse; Visit Provider Registered Nurse
DX: Z79.899 Other long term (current) drug therapy (principal)
CPT/HCPCS: 36415; 80053; 85025; 86480

== ENCOUNTER → 2021-06-22 14:48 | Outpatient (CLI) | payer MEDICARE, MEDICAID, SELFPAY ==
[2020-06-22 10:32] VITALS: BMI 24.5
[2021-03-16 09:00] VITALS: BMI 24.4
--- NOTE | 2021-06-22 14:50 | DI.ECHO.S_ITS ---
[facility] +---------+ : : [address] : : : : [id number] : : : : Phone: [phone] Echocardiogram Report + + :Name: MALISSA DOTSON Study Date: 06/22/2021 Height: 64 in : :[facility] ReadingLocation: Weight: 147 lb : : Gender: Female BSA: 1.7 m2 : :: 1955 Age: 66 yrs BP: 144/75 mmHg: :Reason For Study: DYSPNEA : :Ordering Physician: LALA, : :CULLEN Performed By: Leni Gonzalez : :Referring: CULLEN REEVES : + + Interpretation Summary Left ventricular systolic function appears normal with an estimated ejection fraction of 65 to 70% without any obvious focal wall motion abnormality although the distal inferior wall and inferoapex, extending into the distal inferior septum is not well seen, yet appears unchanged from the previous study. Left ventricular size and wall thickness appear normal and unchanged. Diastolic function is challenging to assess because of her mitral valve disease but suggests a probable relaxation abnormality with fairly normal filling pressures, and likely unchanged from the previous exam. The right ventricle appears normal in size and systolic function, and unchanged from the previous study. Right ventricular systolic pressure cannot be estimated. The left atrium is mildly enlarged and measures slightly larger compared to the previous study. There is moderate mitral annular calcification with mild calcification of the mitral valve leaflets with possible mild mitral stenosis with a mean transvalvular gradient of 4.2 mmHg compared to 3.1 mmHg previously. Otherwise, there is no significant functional valvular abnormality. The ascending aorta and aortic arch are borderline enlarged but unchanged from the previous study. Procedure: A two-dimensional transthoracic echocardiogram with color flow and Doppler was performed. The study quality was technically adequate. Comparison is made with the echocardiogram of 03/16/2021. The heart rate ranged between 69-84 bpm during the study. Left Ventricle: The left ventricle is normal in size and wall thickness. Left ventricular systolic function is probably normal. The ejection fraction is estimated to be 65-70%. There are no obvious focal wall motion abnormalities noted but poor endocardial definition reduces the sensitivity for the detection of such. The distal inferior wall and inferoapex extending into the distal inferior septum is not well seen but appears unchanged from the previous study. Diastolic function could not be accurately assessed due to confounding valvular disease. This is unchanged compared to the previous study. Right Ventricle: The right ventricle is normal in size and function. This is unchanged compared to the previous study. Atria: The left atrium is mildly dilated. The left atrium has mildly increased in size since the prior echo exam. Right atrial size is normal. This is unchanged compared to the previous study. There is no Doppler evidence for an interatrial shunt. Mitral Valve: There is moderate mitral annular calcification. The mitral valve leaflets are mildly calcified. There is mild mitral stenosis. The mitral valve mean gradient is 4.2 mmHg compared to the previous 3.1 mmHg. There is trace mitral regurgitation. This is unchanged compared to the previous study. Aortic Valve: The aortic valve is trileaflet. The aortic valve is slightly calcified. The aortic valve opens well. There is no aortic valve stenosis. No aortic regurgitation is present. Tricuspid Valve: The tricuspid valve is normal in structure and function. There is a trace or physiologic amount of tricuspid regurgitation. Pulmonary artery pressures cannot be estimated because of the lack of a measurable TR jet velocity. Pulmonic Valve: The pulmonic valve leaflets are thin and pliable; valve motion is normal. There is trace pulmonic regurgitation. There is no other significant valvular heart disease. Great Vessels: The aortic root is normal size. The ascending aorta is at the upper limits of normal in size. The aortic arch is at the upper limits of normal in size. This is unchanged compared to the previous study. The inferior vena cava was not well visualized. Pericardium/ Pleura There is no pericardial effusion. There is no pleural effusion. MMode/2D Measurements & Calculations LVIDd: 4.1 cm LVOT diam: 2.0 cm LVIDs: 2.5 cm Ao root diam: 2.8 cm FS: 38.8 % asc Aorta Diam: 3.4 cm IVSd: 1.1 cm Ao Arch Diam (Prox Trans): 3.0 cm LVPWd: 0.82 cm LV hernandez. diameter/BSA (cm/m^2): 2.4 LV sys. diameter/BSA (cm/m^2): 1.5 LA A2 area: 22.2 cm2 RA long axis: 4.9 cm LA A4 area: 18.2 cm2 RA area: 13.6 cm2 LA length (vol): 5.2 cm RA vol: 32.3 ml LA vol: 65.9 ml RA : 18.8 ml/m2 LA vol index: 38.4 ml/m2 RVD1 (basal): 3.5 cm TAPSE: 1.9 cm Doppler Measurements & Calculations Ao V2 max: 141.0 cm/sec LVOT Max Yg: 104.2 cm/sec Ao V2 mean: 96.4 cm/sec LV V1 max P.3 mmHg Ao max P.9 mmHg LV V1 VTI: 21.9 cm Ao mean P.2 mmHg JUNG(I,D): 2.4 cm2 Ao V2 VTI: 27.1 cm JUNG(V,D): 2.2 cm2 sev ratio: 0.81 JUNG indexed to BSA (cm^2/m^2): 1.4 MV E max yg: 115.3 cm/sec PA V2 max: 89.0 cm/sec MV A max yg: 137.1 cm/sec PA V2 mean: 61.8 cm/sec MV E/A: 0.84 PA mean P.7 mmHg Med Peak E' Yg: 5.8 cm/sec PA pr(Accel): 31.0 mmHg E/E' med: 19.8 Lat Peak E' Yg: 6.6 cm/sec E/E' lat: 17.4 E/e' average: 18.6 MV dec time: 0.29 sec MVA(VTI): 1.8 cm2 MV V2 mean: 97.1 cm/sec SV(LVOT): 66.0 ml MV mean P.2 mmHg MV V2 VTI: 36.3 cm Reading Physician:05:39 PM
== END ==
PROVIDERS: PCP Internal Medicine; Referring Provider Specialist; Visit Provider Physician Assistant Medical
DX: I05.0 Rheumatic mitral stenosis (principal); R06.00 Dyspnea, unspecified
CPT/HCPCS: 90837; 93306

== ENCOUNTER 2021-07-12 23:16 | Emergency (ER) | payer MEDICARE, MEDICAID, SELFPAY ==
[2021-07-12 15:14] VITALS: BMI 24.4
[2021-07-12 23:21] VITALS: PULSE 95; O2SAT 97
[2021-07-12 23:24] VITALS: BP 162/89; PULSE 92; RESP 20; TEMP 36.6; O2SAT 98
[2021-07-12 23:30] VITALS: PULSE 89; O2SAT 98
--- NOTE | 2021-07-12 23:35 | DI.CT.S_ITS ---
PROCEDURE: CT HEAD/BRAIN WO CON INDICATIONS: dizziness and headache TECHNIQUE: Noncontrast 4.5 mm thick angled axial sections acquired from the foramen magnum to the vertex, with coronal and sagittal reformats. For radiation dose reduction, the following was used: automated exposure control, adjustment of mA and/or kV according to patient size. COMPARISON: None. FINDINGS: Image quality: Excellent. CSF spaces: Basal cisterns are patent. No extra-axial fluid collections. Ventricles are normal in size and shape. Brain: No intracranial hemorrhage, mass, or mass effect. Mondragon-white matter interface appears preserved. Skull and face: Calvarium and visualized facial bones are intact, without suspicious lesions. Sinuses: Visualized sinuses and mastoids are clear. IMPRESSION: 1. No acute intracranial abnormality. Dictated by: Wallace Dang M.D. on 07/13/2021 at 0:07 Approved by: Wallace Dang M.D. on 07/13/2021 at 0:08
--- NOTE | 2021-07-12 23:35 | ED_ITS ---
HPI - General Adult General Chief complaint: Dizziness Stated complaint: Dizziness Time Seen by Provider: 07/12/21 23:35 Source: patient and EMS Mode of arrival: EMS History of Present Illness HPI narrative: Patient is a 66-year-old female brought in by EMS for evaluation of an episode that occurred several hours prior to arrival. Patient states that she had a 10 minute episode where she felt like the room was spinning. She has had vertigo in the past but this was more intense than her prior episodes. At the time she denied any chest pain. No palpitations. No shortness of breath. Afterwards she has developed a headache and that has continued since then although improved somewhat. She also states that she had episodes where she felt like her vision was changing. But that has also resolved. She does have a history of insulin- dependent diabetes. Also has a history of AML. Related Data Home Medications Medication Instructions Recorded Confirmed levothyroxine 50 mcg tablet 25 mcg PO DAILY #0 07/17/11 07/11/21 cinacalcet 30 mg tablet (Sensipar) 30 mg PO DAILY #0 12/16/16 07/11/21 rifaximin 550 mg tablet 550 mg PO BID 30 Days #60 tab 06/25/18 07/11/21 aspirin 81 mg tablet,delayed 81 mg PO DAILY 08/12/19 07/11/21 release insulin aspart U-100 100 unit/mL 50 unit SUBCUT TID ml 08/12/19 07/11/21 (3 mL) subcutaneous pen metoprolol succinate 25 mg 25 mg PO DAILY 08/12/19 07/11/21 tablet,extended release 24 hr nitroglycerin 0.4 mg sublingual 0.4 mg SL PRN PRN tab 08/12/19 07/11/21 tablet pantoprazole 40 mg tablet,delayed 40 mg PO DAILY 08/12/19 07/11/21 release spironolactone 25 mg tablet 50 mg PO DAILY #0 tab 08/12/19 07/11/21 atorvastatin 40 mg tablet 80 mg PO BEDTIME tab 01/20/20 07/11/21 insulin regular hum U-500 conc 50 unit SUBCUT TID ml 01/20/20 07/11/21 (Humulin R U-500 (Conc) Insulin Kwikpen) furosemide 20 mg tablet 20 mg PO BID 07/11/21 07/11/21 Previous Rx's Medication Instructions Recorded desvenlafaxine 100 mg 100 mg PO DAILY #90 tab 07/11/21 tablet,extended release 24 hr hydroxyzine pamoate 25 mg capsule 25 mg PO BID PRN #20 cap 07/11/21 Allergies Allergy/AdvReac Type Severity Reaction Status Date / Time hydrocodone Allergy ITCHING Verified 07/11/21 15:19 oxycodone Allergy ITCHING Verified 07/11/21 15:19 propofol AdvReac Unknown Verified 07/11/21 15:19 morphine AdvReac Vomiting Verified 07/11/21 15:19 Review of Systems Constitutional Constitutional: Denies fever(s) and Reports headache(s) Eyes Eyes: Reports as per HPI and Reports system reviewed and no additional complaints, except as documented ENT Ears, Nose, Mouth, and Throat: Reports headache(s) Cardiovascular Cardiovascular: Reports system reviewed and no additional complaints, except as documented Respiratory Respiratory: Reports system reviewed and no additional complaints, except as documented Gastrointestinal Gastrointestinal: Reports system reviewed and no additional complaints, except as documented Musculoskeletal Musculoskeletal: Reports system reviewed and no additional complaints, except as documented Integumentary/Breasts Skin/Breast: Reports system reviewed and no additional complaints, except as documented and Reports as per HPI Neurologic Neurologic: Reports headache(s) Hematologic/Lymphatic On Anticoagulants: No Allergic/Immunologic Allergic/Immunologic: Reports system reviewed and no additional complaints, except as documented Patient History Medical History AML (acute myeloid leukemia) in remission Cirrhosis Depression Generalized anxiety disorder Hepatic encephalopathy History of ST elevation myocardial infarction (STEMI) History of upper gastrointestinal bleeding Insulin dependent diabetes mellitus Obsessive compulsive disorder Psoriasis Restrictive lung disease Scleroderma Thrombocytopenia Surgical History History of bone marrow transplant History of colonoscopy History of coronary artery stent placement Family History Father Heart disease S/P CABG x 4 Hypertension Mother Gallstones Brother No significant medical problems Sister Diabetes mellitus Social History marital status: unknown household members: none Smoking Status: Never smoker alcohol intake: former substance use type: does not use Smoking Status: Never smoker alcohol intake frequency: 0-2 drinks per day Substance Use Type: does not use Exam Initial Vital Signs Initial Vital Signs: Vital Signs Pulse Rate 95 H 07/12/21 23:21 Pulse Oximetry 97 07/12/21 23:21 Const General: cooperative and well developed HENMT Head: normal to inspection and normocephalic Face and sinus: normal facial exam Eyes General: appearance normal, both eyes and all related structures Resp Effort & Inspection: normal respiratory effort Auscultation: clear to auscultation bilaterally Cardio Rate: regular rate Rhythm: regular rhythm Neuro General: patient alert, patient awake, patient oriented x3 and moves all extremities Cranial Nerves: CN's II-XI intact bilaterally Cognition: normal cognition Speech: speech normal Motor: muscle tone normal throughout Coordination: [id number] test normal Extrem General: normal to inspection Scores GCS [place] coma scale eye opening: Spontaneous Aneudy coma scale verbal response: Orientated Aneudy coma scale motor response: Obey commands Aneudy coma scale total score: 15 NIH Stroke Scale Level of Conciousness: Alert, keenly responsive Ask month/age: Answers both questions correctly. Open/close eyes, close hand: Performs both tasks correctly Best gaze horizontal: Normal Visual johnson: No visual loss Facial palsy: Normal symetrical movement Left arm drift: No drift for full 10 sec Right arm drift: No drift for full 10 sec Left leg drift: No drift for full 5 sec Right leg drift: No drift for full 5 sec Limb ataxia: Absent Sensory on face/arms/legs: Normal, no sensory loss Best language: No aphasia, normal Dysarthria: Normal Extinction or inattention: No abnormality Total NIH Stroke scale score: 0 Course Orders Ordered: ED Orders 07/12/21 23:35 CT head/brain wo con Stat 07/12/21 23:36 Basic Metabolic Panel Stat Complete Blood Count AUTO DIFF Stat 07/12/21 23:37 EKG-12 Lead Stat Vital Signs Vital signs: Vital Signs - 8 hr 07/12/21 23:21 07/12/21 23:24 07/12/21 23:30 Temperature 98 F Pulse Rate 95 H 92 H 89 Respiratory Rate 20 Blood Pressure 162/89 H Pulse Oximetry 97 98 98 07/12/21 23:56 07/13/21 00:00 07/13/21 00:59 Temperature Pulse Rate 93 H 93 H 90 Respiratory Rate 20 Blood Pressure 166/70 H 154/70 H 154/70 H Pulse Oximetry 97 97 98 Medical Decision Making Lab Data Result diagrams: 07/13/21 00:20 07/13/21 00:20 Labs: Lab Results 07/13/21 07/13/21 Range/Units 00:20 00:20 WBC 5.1 (4.5-11.0) X10^3/uL RBC 4.62 (4.0-5.2) X10^6/uL Hgb 13.3 (12.0-16.0) g/dL Hct 39.7 (36-46) % MCV 86.0 (80-100) fL MCH 28.8 (26-34) PG MCHC 33.5 (30-36) % RDW 17.4 H (11.6-14.8) % Plt Count 85 L (150-400) X10^3/uL Neut % (Auto) 74.9 (50-75) % Lymph % (Auto) 8.4 L (25-40) % [place] % (Auto) 12.7 (3-14) % Eos % (Auto) 2.6 (2-4) % Baso % (Auto) 1.4 (0-2) % Neut # (Auto) 3800 (2823-4189) /uL Lymph # (Auto) 400 L (1184-1259) /uL [place] # (Auto) 600 (0-900) /uL Eos # (Auto) 100 (0-450) /uL Baso # (Auto) 100 (0-100) /uL Sodium 140 (137-145) mmol/L Potassium 3.8 (3.4-5.1) mmol/L Chloride 104 (98-107) mmol/L Carbon Dioxide 34 H (22-32) mmol/L BUN 26 H (7-17) mg/dL Creatinine 0.95 (0.52-1.04) mg/dL Estimated GFR 58.7 L (>60) mL/min BUN/Creatinine Ratio 27.4 H (6-22) Glucose 89 (80-110) mg/dL Calcium 10.1 (8.4-10.2) mg/dL Urine Dip Bedside Urine Glucose Negative Bedside Urine Bilirubin - Negative Bedside Urine Ketone - Negative Urine Specific [place] 1.02 Bedside Urine Occult Blood - Negative Bedside Urine pH 6.5 Bedside Urine Protein + 30 Bedside Urine Urobilinogen +/- 1mg Bedside Urine Nitrite - Negative Bedside Urine Leukocytes - Negative Esterase Point of care testing: Urine Dip Bedside Urine Glucose Negative Bedside Urine Bilirubin - Negative Bedside Urine Ketone - Negative Urine Specific [place] 1.02 Bedside Urine Occult Blood - Negative Bedside Urine pH 6.5 Bedside Urine Protein + 30 Bedside Urine Urobilinogen +/- 1mg Bedside Urine Nitrite - Negative Bedside Urine Leukocytes - Negative Esterase Imaging Data CT scan - head: Radiologist's Impression: [address] [address] [address] Scan Report Signed Patient: Marianela Valdez MR#: [id number] : 1955 Acct:[id number] Age/Sex: 66 / F Date of Service: 07/12/21 Loc: ED Accession Number: [id number] ?? Procedure: CT head/brain wo con Ordering Provider: Andrew Ramos D.O. PROCEDURE:? CT HEAD/BRAIN WO CON ? INDICATIONS:? dizziness and headache ? TECHNIQUE:? Noncontrast 4.5 mm thick angled axial sections acquired from the foramen magnum to the vertex, with coronal and sagittal reformats.? For radiation dose reduction, the following was used:? automated exposure control, adjustment of mA and/or kV according to patient size.? ? COMPARISON:? None. ? FINDINGS:? Image quality:? Excellent.? ? CSF spaces:? Basal cisterns are patent.? No extra-axial fluid collections.? Ventricles are normal in size and shape.? ? Brain:? No intracranial hemorrhage, mass, or mass effect.? Mondragon-white matter interface appears preserved.? ? Skull and face:? Calvarium and visualized facial bones are intact, without suspicious lesions.? ? Sinuses:? Visualized sinuses and mastoids are clear.? ? IMPRESSION:? ? 1. No acute intracranial abnormality.? ? ? Dictated by: Wallace Dang M.D. on 07/13/2021 at 0:07 ? ? Approved by: Wallace Dang M.D. on 07/13/2021 at 0:08?? ECG Data Attestation: I personally reviewed and interpreted this ECG as follows: Interpretation: Sinus rhythm [place] LVH Normal QRS Ventricular rate [address] T wave changes MDM Narrative Medical decision making narrative: Labs EKG and head CT and exam are all unremarkable. Low suspicion for TIA/CVA. Her the letter full as the episode of vertigo. I feel that we can hold on further workup for now. I did discuss this with the patient. Discussed return precautions and follow-up instructions. She expressed understanding and agreement. Discharge Plan Departure Patient Disposition: Home Clinical Impression: Vertigo Instructions: DI for Vertigo Activity Restrictions/Additional Instructions: Continue to take all of your medications as directed. Contact your primary doctor for a follow-up. Return to the emergency department for any new or worsening symptoms. Prescriptions: No Action furosemide 20 mg tablet 20 mg PO BID 0RF desvenlafaxine 100 mg tablet extended release 24 hr 100 mg PO DAILY Qty: 90 1RF hydroxyzine pamoate 25 mg capsule 25 mg PO BID PRN (Reason: anxiety) Qty: 20 1RF rifaximin 550 mg tablet 550 mg PO BID 30 Days Qty: 60 0RF levothyroxine 50 mcg Tablet 25 mcg PO DAILY Qty: 0 0RF cinacalcet [Sensipar] 30 MG tablet 30 mg PO DAILY Qty: 0 0RF aspirin 81 mg tablet,delayed release (DR/EC) 81 mg PO DAILY 0RF metoprolol succinate 25 mg tablet extended release 24 hr 25 mg PO DAILY 0RF nitroglycerin 0.4 mg tablet, sublingual 0.4 mg SL PRN PRN (Reason: chest pain) 0RF Label Comments: has never taken Rx Instructions: one tab Q5 minutes, call 911 if pain persists (up to three tablets). pantoprazole 40 mg tablet,delayed release (DR/EC) 40 mg PO DAILY 0RF spironolactone 25 mg tablet 50 mg PO DAILY Qty: 0 0RF Rx Instructions: per updated med list from 07/12/19 - Adrian Martin MD d/c instructions insulin aspart U-100 100 unit/mL (3 mL) insulin pen 50 unit SUBCUT TID 0RF Label Comments: per updated med list from 07/12/19 - Adrian Martin MD d/c instructions atorvastatin 40 mg tablet 80 mg PO BEDTIME 0RF Humulin R U-500 (Conc) Kwikpen 500 unit/mL (3 mL) insulin pen 50 unit subcut TID 0RF Referrals: Timur Schwartz MD [Primary Care Provider] -
[2021-07-12 23:56] VITALS: BP 166/70; PULSE 93; O2SAT 97
[2021-07-13] VITALS: BP 154/70; PULSE 93; O2SAT 97
[2021-07-13 00:34] LABS: Add Manual Diff / Slide Review NO; Basophils Absolute Auto 100 /uL (0-100); Basophils Percent Auto 1.4 % (0-2); Eosinophils Absolute Auto 100 /uL (0-450); Eosinophils Percent Auto 2.6 % (2-4); Hematocrit 39.7 % (36-46); Hemoglobin 13.3 g/dL (12.0-16.0); Lymphocytes Absolute Auto 400 /uL (1100-4500); Lymphocytes Percent Auto 8.4 % (25-40); Mean Corpuscular HGB Conc 33.5 % (30-36); Mean Corpuscular Hemoglobin 28.8 PG (26-34); Monocytes Absolute Auto 600 /uL (0-900); Monocytes Percent Auto 12.7 % (3-14); Neutrophils Absolute Auto 3800 /uL (1500-7000); Neutrophils Percent Auto 74.9 % (50-75); Platelet Count 85 X10^3/uL (150-400); Red Blood Cell Count 4.62 X10^6/uL (4.0-5.2); Red Cell Distribution Width 17.4 % (11.6-14.8); White Blood Cell Count 5.1 X10^3/uL (4.5-11.0)
[2021-07-13 00:40] LABS: BUN Creatinine Ratio 27.4 (6-22); Blood Urea Nitrogen 26 mg/dL (7-17); Calcium 10.1 mg/dL (8.4-10.2); Carbon Dioxide 34 mmol/L (22-32); Chloride 104 mmol/L (98-107); Estimated Glomerular Filt Rate 58.7 mL/min (>60); Glucose 89 mg/dL (80-110); HEMOLYSIS 33 (0-50); Potassium 3.8 mmol/L (3.4-5.1); Sodium 140 mmol/L (137-145)
[2021-07-13 00:59] VITALS: BP 154/70; PULSE 90; RESP 20; O2SAT 98
--- NOTE | 2021-07-17 14:18 | PC.NURSE ---
Dr. Noble's office called returning phone call regarding follow up. Discussed that pt was seen 07/13 and person who left message does not work in ED.
== END 2021-07-13 01:16 | disposition home or self-care (01) ==
PROVIDERS: Emergency Provider Emergency Medicine; PCP Internal Medicine
DX: R42 Dizziness and giddiness (principal); R51.9 Headache, unspecified; R03.0 Elevated blood-pressure reading, without diagnosis of hypertension
CPT/HCPCS: 70450; 80048; 81003; 85025; 93005; 99283; 99284

== ENCOUNTER 2021-08-17 14:15 | Outpatient (RCR) | payer MEDICARE, MEDICAID, SELFPAY ==
[2021-02-06 16:03] VITALS: BMI 24.5
== END 2021-08-17 16:15 ==
LOC: PUL 14:15
PROVIDERS: PCP Internal Medicine; Referring Provider Internal Medicine; Visit Provider Internal Medicine
DX: J98.4 Other disorders of lung (principal); M34.9 Systemic sclerosis, unspecified
CPT/HCPCS: G0237; G0238

== ENCOUNTER → 2021-08-18 15:50 | Outpatient (CLI) | payer MEDICARE, MEDICAID, SELFPAY ==
[2021-08-18 12:55] VITALS: BMI 24.4
[2021-08-18 17:26] LABS: COVID-19 CEPHEID PCR (VTM/NP) Negative (Negative)
== END ==
PROVIDERS: Family Provider Internal Medicine; PCP Internal Medicine; Visit Provider Family Medicine Sleep Medicine
DX: Z20.822 Contact with and (suspected) exposure to COVID-19 (principal)
CPT/HCPCS: C9803; U0003

== ENCOUNTER → 2022-01-17 13:05 | Outpatient (CLI) | payer MEDICARE, MEDICAID, SELFPAY ==
[2021-09-22 13:39] VITALS: BMI 24.4
[2022-01-17 14:48] LABS: Cholesterol 218 mg/dL (140-199); HDL Cholesterol 60 mg/dL (40-60); LDL Cholesterol Calculated 125 mg/dL (<100); Triglycerides 164 mg/dL (35-150)
[2022-01-18 09:26] LABS: Alanine Aminotransferase 25 IU/L (<35); Albumin Globulin Ratio 0.9 (1.0-2.8); Alkaline Phosphatase 165 U/L (38-126); Aspartate Aminotransferase 81 IU/L (14-36); BUN Creatinine Ratio 23.4 (6-22); Bilirubin Total 1.3 mg/dL (0.2-1.3); Blood Urea Nitrogen 22 mg/dL (7-17); Calcium 10.1 mg/dL (8.4-10.2); Carbon Dioxide 28 mmol/L (22-32); Chloride 102 mmol/L (98-107); Estimated Glomerular Filt Rate > 60 mL/min (>60); Globulin 4.4 g/dL (1.7-4.1); Glucose 248 mg/dL (80-110); HEMOLYSIS 40 (0-50); Magnesium 1.6 mg/dL (1.6-2.3); Sodium 138 mmol/L (137-145); Total Protein 8.4 g/dL (6.3-8.2)
== END ==
PROVIDERS: Family Provider Internal Medicine; PCP Internal Medicine; Referring Provider Specialist; Visit Provider Specialist
DX: E78.00 Pure hypercholesterolemia, unspecified (principal); I10 Essential (primary) hypertension
CPT/HCPCS: 36415; 80053; 80061; 83735

== ENCOUNTER 2022-02-04 14:05 | Emergency (ER) | payer MEDICARE, MEDICAID, SELFPAY ==
[2021-09-22 13:39] VITALS: BMI 24.4
[2022-02-04] VITALS (40 sets, daily range): BP systolic 84–158; BP diastolic 43–73; PULSE 95–127; RESP 16–41; O2SAT 92–98; BMI 31.1
--- NOTE | 2022-02-04 14:12 | DI.RAD.S_ITS ---
PROCEDURE: XR CHEST 1V INDICATIONS: chest pain TECHNIQUE: One view of the chest was acquired. COMPARISON: [facility], CR, XR CHEST 1V, 03/16/2021, 4:56. FINDINGS: Surgical changes and devices: None. Lungs and pleura: . No pleural effusions or pneumothorax. Low lung volumes accentuate pulmonary interstitium and heart size. Minimal left basilar atelectasis and or infiltrate Mediastinum: Mediastinal contours appear normal. Heart size is normal. Bones and chest wall: No suspicious bony lesions. Overlying soft tissues appear unremarkable. IMPRESSION: Minimal left basilar atelectasis and or infiltrate accentuated by low lung volumes Approved by: Paddy Thomas M.D. on 02/04/2022 at 14:55
[2022-02-04 14:53] LABS: Add Manual Diff / Slide Review NO; Basophils Absolute Auto 100 /uL (0-100); Basophils Percent Auto 1.2 % (0-2); Eosinophils Absolute Auto 100 /uL (0-450); Eosinophils Percent Auto 1.2 % (2-4); Hemoglobin 13.2 g/dL (12.0-16.0); Lymphocytes Absolute Auto 200 /uL (1100-4500); Lymphocytes Percent Auto 4.4 % (25-40); Mean Corpuscular HGB Conc 32.9 % (30-36); Mean Corpuscular Hemoglobin 28.9 PG (26-34); Mean Corpuscular Volume 87.6 fL (80-100); Monocytes Absolute Auto 200 /uL (0-900); Monocytes Percent Auto 3.9 % (3-14); Neutrophils Absolute Auto 4800 /uL (1500-7000); Neutrophils Percent Auto 89.3 % (50-75); Platelet Count 73 X10^3/uL (150-400); Red Blood Cell Count 4.57 X10^6/uL (4.0-5.2); Red Cell Distribution Width 18.5 % (11.6-14.8); White Blood Cell Count 5.4 X10^3/uL (4.5-11.0)
[2022-02-04 14:55] LABS: Prothrombin Time 11.6 SECONDS (10.1-12.7)
[2022-02-04 14:57] LABS: PTT Partial Thromboplastin Tim 31 SECONDS (26.4-36.2)
[2022-02-04 14:59] LABS: Alanine Aminotransferase 41 IU/L (<35); Albumin 3.9 g/dL (3.5-5.0); Albumin Globulin Ratio 0.9 (1.0-2.8); Alkaline Phosphatase 230 U/L (38-126); Aspartate Aminotransferase 118 IU/L (14-36); Blood Urea Nitrogen 20 mg/dL (7-17); Calcium 9.1 mg/dL (8.4-10.2); Carbon Dioxide 26 mmol/L (22-32); Chloride 104 mmol/L (98-107); Creatine Kinase 39 U/L (30-135); Estimated Glomerular Filt Rate 54 mL/min (>60); Globulin 4.5 g/dL (1.7-4.1); Glucose 198 mg/dL (80-110); HEMOLYSIS < 15 (0-50); Lipase 538 U/L (23-300); Magnesium 1.9 mg/dL (1.6-2.3); Potassium 3.6 mmol/L (3.4-5.1); Sodium 138 mmol/L (137-145); Total Protein 8.4 g/dL (6.3-8.2)
[2022-02-04 15:11] LABS: Troponin I 0.014 ng/mL (0.01-0.034)
--- NOTE | 2022-02-04 15:24 | DI.CT.S_ITS ---
PROCEDURE: CT ABDOMEN PELVIS W CON INDICATIONS: Right upper quadrant/epigastric pain TECHNIQUE: After the administration of intravenous contrast, axial sections acquired from the lung bases to the pubic symphysis. Coronal and sagittal reformats were performed. For radiation dose reduction, the following was used: automated exposure control, adjustment of mA and/or kV according to patient size. COMPARISON: None. FINDINGS: Lower thorax: Bibasilar atelectasis present. Heart size is enlarged, there is dense vascular calcification present. Liver: Liver is enlarged, there is cirrhotic coarsened parenchymal attenuation noted. Portal vein is nevertheless patent. Perihepatic free fluid present. Biliary system: Gallbladder is distended, there is an laminated stone in the neck of the gallbladder. Pancreas: Unremarkable without mass or inflammation evident. Spleen: Splenomegaly,13.8 cm Adrenals: Normal morphology and density. Reproductive system: Unremarkable as visualized. Urinary system: Normal renal size and attenuation. No renal calculi, hydronephrosis, or solid mass present. Urinary bladder unremarkable. Gastrointestinal system: Colon shows diffuse wall thickening. Several diverticula in noted superimposed in the sigmoid and right colon. No obstruction. Appendix: Normal appendix identified. No evidence of appendicitis. Peritoneal spaces: Moderate free fluid in the pelvis Vasculature: The IVC, aorta and iliac vasculature are unremarkable. Abdominal wall: Abdominal wall intact without evidence of ventral or inguinal hernias. Diffuse subcutaneous induration noted over the mid anterior abdominal wall may related to multiple injections or chronic inflammation Musculoskeletal: Normal bone mineralization. No acute fractures. IMPRESSION: 1. Hepatic cirrhosis and splenomegaly. Patent portal vein. 2. Cholelithiasis and distended gallbladder without dramatic pericholecystic inflammatory change. 3. Diffuse colonic wall thickening could reflect colitis the proper clinical setting. No abscess or obstruction present. 3. Moderate free fluid in the abdomen and pelvis. Approved by: Paddy Thomas M.D. on 02/04/2022 at 15:33
--- NOTE | 2022-02-04 15:25 | ED.CHESTPAIN ---
HPI - Chest Pain <Kuldeep Mahoney MD - Last Filed: 02/17/22 12:32> General Chief Complaint: Chest Pain Stated Complaint: CP & ABD pain Time Seen by Provider: 02/04/22 14:32 History of Present Illness HPI narrative: Patient here for epigastric pain that radiates to the chest and shoulders and mid back. Started last night and has been constant. Has felt nauseous and sweaty as well. Painful with movement. Patient received fentanyl by EMS prior to arrival and feeling better. The patient states she does not drink alcohol. Still has her gallbladder. Patient states had no appetite yesterday. No dyspnea. Does not drink alcohol. Related Data Home Medications Medication Instructions Recorded Confirmed levothyroxine 50 mcg tablet 25 mcg PO DAILY ##0 07/17/11 02/15/22 cinacalcet 30 mg tablet (Sensipar) 30 mg PO DAILY ##0 12/16/16 02/15/22 rifaximin 550 mg tablet 550 mg PO BID 30 days #60 tabs 06/25/18 02/15/22 aspirin 81 mg tablet,delayed 81 mg PO DAILY 08/12/19 02/15/22 release insulin aspart U-100 100 unit/mL 50 unit SUBCUT TID 08/12/19 02/15/22 (3 mL) subcutaneous pen metoprolol succinate 25 mg 25 mg PO DAILY 08/12/19 02/15/22 tablet,extended release 24 hr nitroglycerin 0.4 mg sublingual 0.4 mg sublingual PRN PRN chest 08/12/19 02/15/22 tablet pain insulin regular hum U-500 conc 500 50 unit SUBCUT TID 01/20/20 02/15/22 unit/mL(3 mL) subcut pen (Humulin R U-500 (Conc) Insulin Kwikpen) atorvastatin 80 mg tablet 80 mg PO DAILY 11/06/21 02/15/22 cholecalciferol (vitamin D3) 25 25 mcg PO DAILY 11/06/21 02/15/22 mcg (1,000 unit) tablet insulin lispro 200 unit/mL (3 mL) 50 unit SUBCUT DAILY 11/06/21 02/15/22 subcutaneous pen (Humalog KwikPen U-200 Insulin) olopatadine 0.1 % eye drops 1 drp EYE-BOTH BID 11/06/21 02/15/22 risankizumab-rzaa 150 mg/mL 150 mg SUBCUT Q4W 11/06/21 02/15/22 subcutaneous syringe (Skyrizi) spironolactone 50 mg tablet 50 mg PO DAILY 11/06/21 02/15/22 furosemide 20 mg tablet 20 mg PO DAILY 02/15/22 02/15/22 pen needle, diabetic 31 gauge x #50 ea 02/15/22 02/15/22/16 (BD Ultra-Fine Mini Pen Needle) pen needle, diabetic 32 gauge x #100 ea 02/15/22 02/15/22 1/6 (NovoFine Plus) Previous Rx's Medication Instructions Recorded hydroxyzine pamoate 25 mg capsule 25 mg PO BID PRN anxiety #20 caps 07/11/21 desvenlafaxine 100 mg 100 mg PO DAILY #90 tabs 12/28/21 tablet,extended release 24 hr Allergies Allergy/AdvReac Type Severity Reaction Status Date / Time hydrocodone Allergy ITCHING Verified 02/15/22 12:07 oxycodone Allergy ITCHING Verified 02/15/22 12:07 propofol AdvReac Unknown Verified 02/15/22 12:07 morphine AdvReac Vomiting Verified 02/15/22 12:07 Review of Systems <Kuldeep Mahoney MD - Last Filed: 02/17/22 12:32> Review of Systems Narrative: GENERAL: Denies chills, fatigue, malaise, fever, positive for sweats. HEENT: Denies sinus pain, ear pain, sore throat RESPIRATORY: Denies dyspnea, cough CARDIOVASCULAR: Denies chest pain, palpitations GASTROINTESTINAL: Positive for nausea, negative vomiting, positive abdominal pain : Denies dysuria, frequency, hematuria MUSCULOSKELETAL: denies muscle or bony pain SKIN: Denies rash, skin lesions NEUROLOGIC: Denies weakness, numbness ROS Unobtainable: All systems reviewed & are unremarkable except as noted in HPI and below Patient History <Kuldeep Mahoney MD - Last Filed: 02/17/22 12:32> Medical History (Updated 02/15/22 @ 17:01 by Timur Schwartz MD) Acquired hypothyroidism AML (acute myeloid leukemia) in remission Chronic kidney disease, stage 3a Cirrhosis Coronary artery disease Decubitus ulcer of coccyx Depression Gallstone pancreatitis Generalized anxiety disorder Generalized anxiety disorder GVHD (graft versus host disease) Hepatic encephalopathy History of ST elevation myocardial infarction (STEMI) History of upper gastrointestinal bleeding Hyperparathyroidism, secondary renal Insulin dependent diabetes mellitus Mixed hyperlipidemia Obsessive compulsive disorder Psoriasis Restrictive lung disease Scleroderma Thrombocytopenia Surgical History History of bone marrow transplant History of colonoscopy History of coronary artery stent placement Family History Father Heart disease S/P CABG x 4 Hypertension Mother Gallstones Brother No significant medical problems Sister Diabetes mellitus Social History marital status: unknown household members: none Smoking Status: Never smoker alcohol intake: former substance use type: does not use Smoking Status: Never smoker alcohol intake frequency: 0-2 drinks per day Substance Use Type: does not use Exam <Kuldeep Mahoney MD - Last Filed: 02/17/22 12:32> Narrative Exam Narrative: GENERAL: in no distress, not toxic not dyspneic HEAD: Normocephalic. EYES: Pupils equal round No scleral icterus. ENT: Mucous membranes moist. NECK: Trachea midline. CARDIOVASCULAR: Regular rate and rhythm without murmurs RESPIRATORY: Clear to auscultation. Breath sounds equal bilaterally. No wheezes, rales, or rhonchi. GASTROINTESTINAL: Abdomen soft, reproducible epigastric and right upper quadrant tenderness. Positive Carmichael sign. Bowel sounds present no peritoneal signs NEURO: AOx4. SKIN: Warm and dry PSYCH: Not anxious, is cooperative Initial Vital Signs Initial Vital Signs: Vital Signs Pulse Rate 103 H 02/04/22 14:07 Respiratory Rate 16 02/04/22 14:07 Blood Pressure 138/73 02/04/22 14:07 Pulse Oximetry 97 02/04/22 14:07 Oxygen Delivery Method 02/04/22 14:07 <Tamara Hernandez MD - Last Filed: 02/05/22 07:36> Initial Vital Signs Initial Vital Signs: Vital Signs Pulse Rate 103 H 02/04/22 14:07 Respiratory Rate 16 02/04/22 14:07 Blood Pressure 138/73 02/04/22 14:07 Pulse Oximetry 97 02/04/22 14:07 Oxygen Delivery Method 02/04/22 14:07 <Bea Victoria DO - Last Filed: 02/05/22 15:48> Initial Vital Signs Initial Vital Signs: Vital Signs Pulse Rate 103 H 02/04/22 14:07 Respiratory Rate 16 02/04/22 14:07 Blood Pressure 138/73 02/04/22 14:07 Pulse Oximetry 97 02/04/22 14:07 Oxygen Delivery Method 02/04/22 14:07 Course <Kuldeep Mahoney MD - Last Filed: 02/17/22 12:32> Course Course Narrative: Reviewing of the laboratory studies and imaging. Concerning for cholecystitis or possible choledocholithiasis and possible cholangitis. Blood cultures lactic acid procalcitonin attain. Rocephin started. Patient will likely need MRCP as well as possible ERCP. We do not have ERCP capabilities here. Patient does have providers at [facility]. 1800 s/o dr hernandez, await call back from [facility] transfer center, possible observation overnight here for MRCP in the morning. Orders Ordered: Discontinued Medications Alprazolam (Alprazolam 0.25 Mg Tablet) 0.25 mg PO NOW ONE Stop: 02/04/22 15:24 Last Admin: 02/04/22 15:33 Dose: 0.25 mg Documented By: AT Atorvastatin Calcium (Atorvastatin 20 Mg Tablet) 80 mg PO BEDTIME [facility] Dextrose (Dextrose 50 % In Water 25 Gm/50 Ml Syringe) 25 gm IV PRN PRN; Protocol PRN Reason: Hypoglycemia Diphenhydramine HCl (Diphenhydramine 50 Mg/Ml Vial) 50 mg IV NOW ONE Stop: 02/05/22 02:25 Last Admin: 02/05/22 02:31 Dose: 50 mg Documented By: MAXX Fentanyl (Fentanyl 100 Mcg/2 Ml Inj) 50 mcg IV Q1HR PRN PRN Reason: Pain, Severe (7-10) Last Admin: 02/05/22 13:01 Dose: 50 mcg Documented By: Admin: 02/04/22 22:54 Dose: 50 mcg Documented By: Admin: 02/04/22 20:32 Dose: 50 mcg Documented By: AT Fentanyl (Fentanyl 100 Mcg/2 Ml Inj) 50 mcg IV NOW ONE Stop: 02/05/22 09:32 Last Admin: 02/05/22 10:05 Dose: 50 mcg Documented By: RLS Fentanyl (Fentanyl 100 Mcg/2 Ml Inj) 75 mcg 1 mcg/kg (75 mcg) IV NOW ONE Stop: 02/05/22 12:48 Last Admin: 02/05/22 13:16 Dose: Not Given Documented By: RLS Heparin Sodium (Porcine) (Heparin 5,000 Unit/Ml Vial) 4,000 unit IV NOW ONE Stop: 02/05/22 07:53 Last Admin: 02/05/22 08:03 Dose: 4,000 unit Documented By: RLS Hydrocortisone (Hydrocortisone 100 Mg/2 Ml Vial) 100 mg IV NOW ONE Stop: 02/04/22 19:47 Last Admin: 02/04/22 20:06 Dose: 100 mg Documented By: AT Sodium Chloride (Normal Saline 0.9%) 500 mls @ 1,000 mls/hr IV BOLUS ONE Stop: 02/04/22 15:54 Last Infusion: 02/04/22 17:33 Dose: 0 mls/hr Documented By: Admin: 02/04/22 15:33 Dose: 1,000 mls/hr Documented By: AT Ceftriaxone Sodium 2,000 mg/ (Sodium Chloride) 100 mls @ 200 mls/hr IV NOW ONE Stop: 02/04/22 18:16 Last Infusion: 02/04/22 19:18 Dose: 0 mls/hr Documented By: Admin: 02/04/22 18:40 Dose: 200 mls/hr Documented By: AT Sodium Chloride (Normal Saline 0.9%) 1,000 mls @ 1,000 mls/hr IV BOLUS ONE Stop: 02/04/22 20:04 Last Infusion: 02/04/22 20:26 Dose: 0 mls/hr Documented By: Admin: 02/04/22 19:20 Dose: 1,000 mls/hr Documented By: AT Cefepime HCl 2 gm/ Sodium (Chloride) 100 mls @ 200 mls/hr IV Q12H [facility] Last Infusion: 02/05/22 09:15 Dose: 0 mls/hr Documented By: Admin: 02/05/22 08:48 Dose: 200 mls/hr Documented By: Infusion: 02/04/22 20:55 Dose: 0 mls/hr Documented By: Admin: 02/04/22 20:06 Dose: 200 mls/hr Documented By: AT Metronidazole (Flagyl) 500 mg in 100 mls @ 100 mls/hr IV Q8H [facility] Last Infusion: 02/05/22 13:14 Dose: 0 mls/hr Documented By: Admin: 02/05/22 11:52 Dose: 100 mls/hr Documented By: Infusion: 02/05/22 04:13 Dose: 0 mls/hr Documented By: Admin: 02/05/22 03:21 Dose: 100 mls/hr Documented By: Infusion: 02/04/22 22:25 Dose: 0 mls/hr Documented By: Admin: 02/04/22 21:07 Dose: 100 mls/hr Documented By: AT Sodium Chloride (Normal Saline 0.9%) 1,000 mls @ 150 mls/hr IV CONT [facility] Last Infusion: 02/05/22 13:15 Dose: 0 mls/hr Documented By: Admin: 02/05/22 11:45 Dose: 150 mls/hr Documented By: Infusion: 02/05/22 11:44 Dose: 0 mls/hr Documented By: Admin: 02/05/22 03:21 Dose: 150 mls/hr Documented By: Infusion: 02/05/22 03:13 Dose: 150 mls/hr Documented By: Admin: 02/04/22 20:32 Dose: 150 mls/hr Documented By: AT Heparin Sodium/Dextrose (Heparin Drip) 25,000 unit in 500 mls @ 17.962 mls/hr IV CONT [facility]; Protocol Last Titration: 02/05/22 13:15 Dose: 0 units/kg/hr, 0 mls/hr Documented By: Admin: 02/05/22 08:04 Dose: 12 units/kg/hr, 17.962 mls/hr Documented By: JONI Insulin Human Lispro (Insulin Lispro 100 Unit/Ml 3ml Vial) 25 unit SUBCUT NOW ONE Stop: 02/04/22 23:15 Last Admin: 02/05/22 00:51 Dose: 25 unit Documented By: MAXX Co-signed By: JOSEPH Ondansetron HCl (Ondansetron 4 Mg/2 Ml Inj) 4 mg IV Q6HR PRN PRN Reason: Nausea And Vomiting Ondansetron HCl (Ondansetron 4 Mg/2 Ml Inj) 4 mg IV NOW ONE Stop: 02/05/22 09:30 Last Admin: 02/05/22 10:05 Dose: Not Given Documented By: JONI Rifaximin (Rifaximin 550 Mg Tablet) 550 mg PO BID [facility] Last Admin: 02/05/22 09:03 Dose: 550 mg Documented By: Admin: 02/05/22 02:16 Dose: 550 mg Documented By: AMXX Vital Signs Vital signs: Vital Signs - 8 hr 02/05/22 08:00 02/05/22 08:00 02/05/22 08:02 Temperature Pulse Rate 82 81 Respiratory Rate 26 H 19 Blood Pressure 116/57 L Pulse Oximetry 100 99 Oxygen Delivery Method Oxygen Flow Rate 02/05/22 08:02 02/05/22 08:03 02/05/22 08:03 Temperature Pulse Rate 81 Respiratory Rate 21 Blood Pressure 115/63 113/59 L Pulse Oximetry 99 Oxygen Delivery Method Oxygen Flow Rate 02/05/22 08:00 02/05/22 08:45 02/05/22 08:30 Temperature 97.9 F Pulse Rate 81 Respiratory Rate 21 Blood Pressure 113/59 L 115/59 L Pulse Oximetry 99 Oxygen Delivery Method Oxygen Flow Rate 02/05/22 08:30 02/05/22 09:00 02/05/22 09:00 Temperature Pulse Rate 83 84 Respiratory Rate 23 25 H Blood Pressure 131/62 Pulse Oximetry 100 99 Oxygen Delivery Method Heated High Flow Nasal Cannula Oxygen Flow Rate 2 02/05/22 09:30 02/05/22 10:00 02/05/22 10:16 Temperature Pulse Rate 87 81 81 Respiratory Rate 26 H 25 H 18 Blood Pressure Pulse Oximetry 99 99 98 Oxygen Delivery Method Nasal Cannula Nasal Cannula Oxygen Flow Rate 1 1 02/05/22 10:16 02/05/22 10:30 02/05/22 10:30 Temperature Pulse Rate 81 Respiratory Rate 21 Blood Pressure 121/58 L 125/60 Pulse Oximetry 99 Oxygen Delivery Method Oxygen Flow Rate 02/05/22 10:57 02/05/22 10:57 02/05/22 11:00 Temperature Pulse Rate 83 Respiratory Rate Blood Pressure 121/60 117/62 Pulse Oximetry 97 Oxygen Delivery Method Oxygen Flow Rate 02/05/22 11:00 02/05/22 11:30 02/05/22 11:30 Temperature Pulse Rate 81 83 Respiratory Rate 25 H Blood Pressure 111/83 Pulse Oximetry 99 96 Oxygen Delivery Method Nasal Cannula Oxygen Flow Rate 1 02/05/22 12:00 07/18/22 12:00 02/05/22 12:30 Temperature Pulse Rate 84 Respiratory Rate 25 H Blood Pressure 125/66 122/64 Pulse Oximetry 98 Oxygen Delivery Method Oxygen Flow Rate 02/05/22 12:30 02/05/22 13:00 Temperature Pulse Rate 84 87 Respiratory Rate 27 H 33 H Blood Pressure Pulse Oximetry 97 96 Oxygen Delivery Method Oxygen Flow Rate <Tamara Hernandez MD - Last Filed: 02/05/22 07:36> Orders Ordered: Discontinued Medications Alprazolam (Alprazolam 0.25 Mg Tablet) 0.25 mg PO NOW ONE Stop: 02/04/22 15:24 Last Admin: 02/04/22 15:33 Dose: 0.25 mg Documented By: AT Atorvastatin Calcium (Atorvastatin 20 Mg Tablet) 80 mg PO BEDTIME [facility] Dextrose (Dextrose 50 % In Water 25 Gm/50 Ml Syringe) 25 gm IV PRN PRN; Protocol PRN Reason: Hypoglycemia Diphenhydramine HCl (Diphenhydramine 50 Mg/Ml Vial) 50 mg IV NOW ONE Stop: 02/05/22 02:25 Last Admin: 02/05/22 02:31 Dose: 50 mg Documented By: MAXX Fentanyl (Fentanyl 100 Mcg/2 Ml Inj) 50 mcg IV Q1HR PRN PRN Reason: Pain, Severe (7-10) Last Admin: 02/05/22 13:01 Dose: 50 mcg Documented By: Admin: 02/04/22 22:54 Dose: 50 mcg Documented By: Admin: 02/04/22 20:32 Dose: 50 mcg Documented By: AT Fentanyl (Fentanyl 100 Mcg/2 Ml Inj) 50 mcg IV NOW ONE Stop: 02/05/22 09:32 Last Admin: 02/05/22 10:05 Dose: 50 mcg Documented By: RLS Fentanyl (Fentanyl 100 Mcg/2 Ml Inj) 75 mcg 1 mcg/kg (75 mcg) IV NOW ONE Stop: 02/05/22 12:48 Last Admin: 02/05/22 13:16 Dose: Not Given Documented By: RLS Heparin Sodium (Porcine) (Heparin 5,000 Unit/Ml Vial) 4,000 unit IV NOW ONE Stop: 02/05/22 07:53 Last Admin: 02/05/22 08:03 Dose: 4,000 unit Documented By: RLS Hydrocortisone (Hydrocortisone 100 Mg/2 Ml Vial) 100 mg IV NOW ONE Stop: 02/04/22 19:47 Last Admin: 02/04/22 20:06 Dose: 100 mg Documented By: AT Sodium Chloride (Normal Saline 0.9%) 500 mls @ 1,000 mls/hr IV BOLUS ONE Stop: 02/04/22 15:54 Last Infusion: 02/04/22 17:33 Dose: 0 mls/hr Documented By: Admin: 02/04/22 15:33 Dose: 1,000 mls/hr Documented By: AT Ceftriaxone Sodium 2,000 mg/ (Sodium Chloride) 100 mls @ 200 mls/hr IV NOW ONE Stop: 02/04/22 18:16 Last Infusion: 02/04/22 19:18 Dose: 0 mls/hr Documented By: Admin: 02/04/22 18:40 Dose: 200 mls/hr Documented By: AT Sodium Chloride (Normal Saline 0.9%) 1,000 mls @ 1,000 mls/hr IV BOLUS ONE Stop: 02/04/22 20:04 Last Infusion: 02/04/22 20:26 Dose: 0 mls/hr Documented By: Admin: 02/04/22 19:20 Dose: 1,000 mls/hr Documented By: AT Cefepime HCl 2 gm/ Sodium (Chloride) 100 mls @ 200 mls/hr IV Q12H [facility] Last Infusion: 02/05/22 09:15 Dose: 0 mls/hr Documented By: Admin: 02/05/22 08:48 Dose: 200 mls/hr Documented By: Infusion: 02/04/22 20:55 Dose: 0 mls/hr Documented By: Admin: 02/04/22 20:06 Dose: 200 mls/hr Documented By: AT Metronidazole (Flagyl) 500 mg in 100 mls @ 100 mls/hr IV Q8H [facility] Last Infusion: 02/05/22 13:14 Dose: 0 mls/hr Documented By: Admin: 02/05/22 11:52 Dose: 100 mls/hr Documented By: Infusion: 02/05/22 04:13 Dose: 0 mls/hr Documented By: Admin: 02/05/22 03:21 Dose: 100 mls/hr Documented By: Infusion: 02/04/22 22:25 Dose: 0 mls/hr Documented By: Admin: 02/04/22 21:07 Dose: 100 mls/hr Documented By: AT Sodium Chloride (Normal Saline 0.9%) 1,000 mls @ 150 mls/hr IV CONT [facility] Last Infusion: 02/05/22 13:15 Dose: 0 mls/hr Documented By: Admin: 02/05/22 11:45 Dose: 150 mls/hr Documented By: Infusion: 02/05/22 11:44 Dose: 0 mls/hr Documented By: Admin: 02/05/22 03:21 Dose: 150 mls/hr Documented By: Infusion: 02/05/22 03:13 Dose: 150 mls/hr Documented By: Admin: 02/04/22 20:32 Dose: 150 mls/hr Documented By: AT Heparin Sodium/Dextrose (Heparin Drip) 25,000 unit in 500 mls @ 17.962 mls/hr IV CONT [facility]ERAL[facility]; Protocol Last Titration: 02/05/22 13:15 Dose: 0 units/kg/hr, 0 mls/hr Documented By: Admin: 02/05/22 08:04 Dose: 12 units/kg/hr, 17.962 mls/hr Documented By: JONI Insulin Human Lispro (Insulin Lispro 100 Unit/Ml 3ml Vial) 25 unit SUBCUT NOW ONE Stop: 02/04/22 23:15 Last Admin: 02/05/22 00:51 Dose: 25 unit Documented By: MAXX Co-signed By: JOSEPH Ondansetron HCl (Ondansetron 4 Mg/2 Ml Inj) 4 mg IV Q6HR PRN PRN Reason: Nausea And Vomiting Ondansetron HCl (Ondansetron 4 Mg/2 Ml Inj) 4 mg IV NOW ONE Stop: 02/05/22 09:30 Last Admin: 02/05/22 10:05 Dose: Not Given Documented By: JONI Rifaximin (Rifaximin 550 Mg Tablet) 550 mg PO BID [facility] Last Admin: 02/05/22 09:03 Dose: 550 mg Documented By: Admin: 02/05/22 02:16 Dose: 550 mg Documented By: MAXX Vital Signs Vital signs: Vital Signs - 8 hr 02/05/22 08:00 02/05/22 08:00 07/18/22 08:02 Temperature Pulse Rate 82 81 Respiratory Rate 26 H 19 Blood Pressure 116/57 L Pulse Oximetry 100 99 Oxygen Delivery Method Oxygen Flow Rate 02/05/22 08:02 02/05/22 08:03 02/05/22 08:03 Temperature Pulse Rate 81 Respiratory Rate 21 Blood Pressure 115/63 113/59 L Pulse Oximetry 99 Oxygen Delivery Method Oxygen Flow Rate 02/05/22 08:00 02/05/22 08:45 02/05/22 08:30 Temperature 97.9 F Pulse Rate 81 Respiratory Rate 21 Blood Pressure 113/59 L 115/59 L Pulse Oximetry 99 Oxygen Delivery Method Oxygen Flow Rate 02/05/22 08:30 02/05/22 09:00 02/05/22 09:00 Temperature Pulse Rate 83 84 Respiratory Rate 23 25 H Blood Pressure 131/62 Pulse Oximetry 100 99 Oxygen Delivery Method Heated High Flow Nasal Cannula Oxygen Flow Rate 2 02/05/22 09:30 02/05/22 10:00 02/05/22 10:16 Temperature Pulse Rate 87 81 81 Respiratory Rate 26 H 25 H 18 Blood Pressure Pulse Oximetry 99 99 98 Oxygen Delivery Method Nasal Cannula Nasal Cannula Oxygen Flow Rate 1 1 02/05/22 10:16 02/05/22 10:30 02/05/22 10:30 Temperature Pulse Rate 81 Respiratory Rate 21 Blood Pressure 121/58 L 125/60 Pulse Oximetry 99 Oxygen Delivery Method Oxygen Flow Rate 02/05/22 10:57 02/05/22 10:57 02/05/22 11:00 Temperature Pulse Rate 83 Respiratory Rate Blood Pressure 121/60 117/62 Pulse Oximetry 97 Oxygen Delivery Method Oxygen Flow Rate 02/05/22 11:00 02/05/22 11:30 02/05/22 11:30 Temperature Pulse Rate 81 83 Respiratory Rate 25 H Blood Pressure 111/83 Pulse Oximetry 99 96 Oxygen Delivery Method Nasal Cannula Oxygen Flow Rate 1 02/05/22 12:00 02/05/22 12:00 02/05/22 12:30 Temperature Pulse Rate 84 Respiratory Rate 25 H Blood Pressure 125/66 122/64 Pulse Oximetry 98 Oxygen Delivery Method Oxygen Flow Rate 02/05/22 12:30 02/05/22 13:00 Temperature Pulse Rate 84 87 Respiratory Rate 27 H 33 H Blood Pressure Pulse Oximetry 97 96 Oxygen Delivery Method Oxygen Flow Rate <DO Corrie Durant Last Filed: 02/05/22 15:48> Orders Ordered: Discontinued Medications Alprazolam (Alprazolam 0.25 Mg Tablet) 0.25 mg PO NOW ONE Stop: 02/04/22 15:24 Last Admin: 02/04/22 15:33 Dose: 0.25 mg Documented By: AT Atorvastatin Calcium (Atorvastatin 20 Mg Tablet) 80 mg PO BEDTIME G[facility] Dextrose (Dextrose 50 % In Water 25 Gm/50 Ml Syringe) 25 gm IV PRN PRN; Protocol PRN Reason: Hypoglycemia Diphenhydramine HCl (Diphenhydramine 50 Mg/Ml Vial) 50 mg IV NOW ONE Stop: 02/05/22 02:25 Last Admin: 02/05/22 02:31 Dose: 50 mg Documented By: MAXX Fentanyl (Fentanyl 100 Mcg/2 Ml Inj) 50 mcg IV Q1HR PRN PRN Reason: Pain, Severe (7-10) Last Admin: 02/05/22 13:01 Dose: 50 mcg Documented By: Admin: 02/04/22 22:54 Dose: 50 mcg Documented By: Admin: 02/04/22 20:32 Dose: 50 mcg Documented By: AT Fentanyl (Fentanyl 100 Mcg/2 Ml Inj) 50 mcg IV NOW ONE Stop: 02/05/22 09:32 Last Admin: 02/05/22 10:05 Dose: 50 mcg Documented By: RLS Fentanyl (Fentanyl 100 Mcg/2 Ml Inj) 75 mcg 1 mcg/kg (75 mcg) IV NOW ONE Stop: 02/05/22 12:48 Last Admin: 02/05/22 13:16 Dose: Not Given Documented By: JONI Heparin Sodium (Porcine) (Heparin 5,000 Unit/Ml Vial) 4,000 unit IV NOW ONE Stop: 02/05/22 07:53 Last Admin: 02/05/22 08:03 Dose: 4,000 unit Documented By: RLS Hydrocortisone (Hydrocortisone 100 Mg/2 Ml Vial) 100 mg IV NOW ONE Stop: 02/04/22 19:47 Last Admin: 02/04/22 20:06 Dose: 100 mg Documented By: AT Sodium Chloride (Normal Saline 0.9%) 500 mls @ 1,000 mls/hr IV BOLUS ONE Stop: 02/04/22 15:54 Last Infusion: 02/04/22 17:33 Dose: 0 mls/hr Documented By: Admin: 02/04/22 15:33 Dose: 1,000 mls/hr Documented By: AT Ceftriaxone Sodium 2,000 mg/ (Sodium Chloride) 100 mls @ 200 mls/hr IV NOW ONE Stop: 02/04/22 18:16 Last Infusion: 02/04/22 19:18 Dose: 0 mls/hr Documented By: Admin: 02/04/22 18:40 Dose: 200 mls/hr Documented By: AT Sodium Chloride (Normal Saline 0.9%) 1,000 mls @ 1,000 mls/hr IV BOLUS ONE Stop: 02/04/22 20:04 Last Infusion: 02/04/22 20:26 Dose: 0 mls/hr Documented By: Admin: 02/04/22 19:20 Dose: 1,000 mls/hr Documented By: AT Cefepime HCl 2 gm/ Sodium (Chloride) 100 mls @ 200 mls/hr IV Q12H [facility] Last Infusion: 02/05/22 09:15 Dose: 0 mls/hr Documented By: Admin: 02/05/22 08:48 Dose: 200 mls/hr Documented By: Infusion: 02/04/22 20:55 Dose: 0 mls/hr Documented By: Admin: 02/04/22 20:06 Dose: 200 mls/hr Documented By: AT Metronidazole (Flagyl) 500 mg in 100 mls @ 100 mls/hr IV Q8H [facility] Last Infusion: 02/05/22 13:14 Dose: 0 mls/hr Documented By: Admin: 02/05/22 11:52 Dose: 100 mls/hr Documented By: Infusion: 02/05/22 04:13 Dose: 0 mls/hr Documented By: Admin: 02/05/22 03:21 Dose: 100 mls/hr Documented By: Infusion: 02/04/22 22:25 Dose: 0 mls/hr Documented By: Admin: 02/04/22 21:07 Dose: 100 mls/hr Documented By: AT Sodium Chloride (Normal Saline 0.9%) 1,000 mls @ 150 mls/hr IV CONT [facility] Last Infusion: 02/05/22 13:15 Dose: 0 mls/hr Documented By: Admin: 02/05/22 11:45 Dose: 150 mls/hr Documented By: Infusion: 02/05/22 11:44 Dose: 0 mls/hr Documented By: Admin: 02/05/22 03:21 Dose: 150 mls/hr Documented By: Infusion: 02/05/22 03:13 Dose: 150 mls/hr Documented By: Admin: 02/04/22 20:32 Dose: 150 mls/hr Documented By: AT Heparin Sodium/Dextrose (Heparin Drip) 25,000 unit in 500 mls @ 17.962 mls/hr IV CONT [facility]; Protocol Last Titration: 02/05/22 13:15 Dose: 0 units/kg/hr, 0 mls/hr Documented By: Admin: 02/05/22 08:04 Dose: 12 units/kg/hr, 17.962 mls/hr Documented By: JONI Insulin Human Lispro (Insulin Lispro 100 Unit/Ml 3ml Vial) 25 unit SUBCUT NOW ONE Stop: 02/04/22 23:15 Last Admin: 02/05/22 00:51 Dose: 25 unit Documented By: MAXX Co-signed By: JOSEPH Ondansetron HCl (Ondansetron 4 Mg/2 Ml Inj) 4 mg IV Q6HR PRN PRN Reason: Nausea And Vomiting Ondansetron HCl (Ondansetron 4 Mg/2 Ml Inj) 4 mg IV NOW ONE Stop: 02/05/22 09:30 Last Admin: 02/05/22 10:05 Dose: Not Given Documented By: JONI Rifaximin (Rifaximin 550 Mg Tablet) 550 mg PO BID [facility] Last Admin: 02/05/22 09:03 Dose: 550 mg Documented By: Admin: 02/05/22 02:16 Dose: 550 mg Documented By: MAXX Vital Signs Vital signs: Vital Signs - 8 hr 02/05/22 08:00 02/05/22 08:00 02/05/22 08:02 Temperature Pulse Rate 82 81 Respiratory Rate 26 H 19 Blood Pressure 116/57 L Pulse Oximetry 100 99 Oxygen Delivery Method Oxygen Flow Rate 02/05/22 08:02 02/05/22 08:03 02/05/22 08:03 Temperature Pulse Rate 81 Respiratory Rate 21 Blood Pressure 115/63 113/59 L Pulse Oximetry 99 Oxygen Delivery Method Oxygen Flow Rate 02/05/22 08:00 02/05/22 08:45 02/05/22 08:30 Temperature 97.9 F Pulse Rate 81 Respiratory Rate 21 Blood Pressure 113/59 L 115/59 L Pulse Oximetry 99 Oxygen Delivery Method Oxygen Flow Rate 02/05/22 08:30 02/05/22 09:00 02/05/22 09:00 Temperature Pulse Rate 83 84 Respiratory Rate 23 25 H Blood Pressure 131/62 Pulse Oximetry 100 99 Oxygen Delivery Method Heated High Flow Nasal Cannula Oxygen Flow Rate 2 02/05/22 09:30 02/05/22 10:00 02/05/22 10:16 Temperature Pulse Rate 87 81 81 Respiratory Rate 26 H 25 H 18 Blood Pressure Pulse Oximetry 99 99 98 Oxygen Delivery Method Nasal Cannula Nasal Cannula Oxygen Flow Rate 1 1 02/05/22 10:16 02/05/22 10:30 02/05/22 10:30 Temperature Pulse Rate 81 Respiratory Rate 21 Blood Pressure 121/58 L 125/60 Pulse Oximetry 99 Oxygen Delivery Method Oxygen Flow Rate 02/05/22 10:57 02/05/22 10:57 02/05/22 11:00 Temperature Pulse Rate 83 Respiratory Rate Blood Pressure 121/60 117/62 Pulse Oximetry 97 Oxygen Delivery Method Oxygen Flow Rate 02/05/22 11:00 02/05/22 11:30 02/05/22 11:30 Temperature Pulse Rate 81 83 Respiratory Rate 25 H Blood Pressure 111/83 Pulse Oximetry 99 96 Oxygen Delivery Method Nasal Cannula Oxygen Flow Rate 1 02/05/22 12:00 02/05/22 12:00 02/05/22 12:30 Temperature Pulse Rate 84 Respiratory Rate 25 H Blood Pressure 125/66 122/64 Pulse Oximetry 98 Oxygen Delivery Method Oxygen Flow Rate 02/05/22 12:30 02/05/22 13:00 Temperature Pulse Rate 84 87 Respiratory Rate 27 H 33 H Blood Pressure Pulse Oximetry 97 96 Oxygen Delivery Method Oxygen Flow Rate MDM - Chest Pain <Kuldeep Mahoney MD - Last Filed: 02/17/22 12:32> Differential Diagnosis Differential diagnosis: Likely stable angina, unstable angina pectoris, atypical chest pain, chest pain, biliary colic and other (Pancreatitis/cholecystitis/gastritis) Lab Data Result diagrams: 02/05/22 05:55 02/05/22 05:55 Labs: Lab Results 02/04/22 02/04/22 02/04/22 Range/Units 14:35 14:35 14:35 WBC 5.4 (4.5-11.0) X10^3/uL RBC 4.57 (4.0-5.2) X10^6/uL Hgb 13.2 (12.0-16.0) g/dL Hct 40.0 (36-46) % MCV 87.6 (80-100) fL MCH 28.9 (26-34) PG MCHC 32.9 (30-36) % RDW 18.5 H (11.6-14.8) % Plt Count 73 L (150-400) X10^3/uL Neut % (Auto) 89.3 H (50-75) % Lymph % (Auto) 4.4 L (25-40) % Living[place] % (Auto) 3.9 (3-14) % Eos % (Auto) 1.2 L (2-4) % Baso % (Auto) 1.2 (0-2) % Neut # (Auto) 4800 (7023-2226) /uL Lymph # (Auto) 200 L (0234-5536) /uL Livingston # (Auto) 200 (0-900) /uL Eos # (Auto) 100 (0-450) /uL Baso # (Auto) 100 (0-100) /uL PT 11.6 (10.1-12.7) SECONDS INR 1.0 (0.9-1.3) APTT 31 (26.4-36.2) SECONDS D-Dimer (<230) ng/mL Sodium 138 (137-145) mmol/L Potassium 3.6 (3.4-5.1) mmol/L Chloride 104 (98-107) mmol/L Carbon Dioxide 26 (22-32) mmol/L BUN 20 H (7-17) mg/dL Creatinine 1.11 H (0.52-1.04) mg/dL Estimated GFR 54 L (>60) mL/min BUN/Creatinine Ratio 18.0 (6-22) Glucose 198 H (80-110) mg/dL Lactate (0.7-2.1) mmol/L Calcium 9.1 (8.4-10.2) mg/dL Magnesium 1.9 (1.6-2.3) mg/dL Total Bilirubin 3.0 H (0.2-1.3) mg/dL AST 118 H (14-36) IU/L ALT 41 H (<35) IU/L Alkaline Phosphatase 230 H (38-126) U/L Total Creatine Kinase 39 (30-135) U/L CK-MB (CK-2) TNP CK-MB (CK-2) Rel Index TNP Troponin I 0.014 (0.01-0.034) ng/mL NT-Pro-B Natriuret Pep (<125) pg/mL Total Protein 8.4 H (6.3-8.2) g/dL Albumin 3.9 (3.5-5.0) g/dL Globulin 4.5 H (1.7-4.1) g/dL Albumin/Globulin Ratio 0.9 L (1.0-2.8) Lipase 538 H (23-300) U/L Procalcitonin (<0.5) ng/mL A. baumannii (PCR) (Not Detect) Katie albicans (PCR) (Not Detect) C. glabrata (PCR) (Not Detect) C. krusei (PCR) (Not Detect) C. parapsilosis (PCR) (Not Detect) C. tropicalis (PCR) (Not Detect) SARS-CoV-2 (PCR) (Negative) Enterobacteriac sp PCR (Not Detect) E. cloacae complex PCR (Not Detect) Enterococcus sp PCR (Not Detect) E. coli (PCR) (Not Detect) H. influenzae (PCR) (Not Detect) Klebsiella oxytoca PCR (Not Detect) Klebsiella pneumoniae (Not Detect) List. monocytogenes PCR (Not Detect) N. meningitidis (PCR) (Not Detect) Proteus species (PCR) (Not Detect) Serratia marcescens PCR (Not Detect) Staphylococcus sp PCR (Not Detect) Staph aureus (PCR) (Not Detect) mecA-Methicil Res Gene Streptococcus sp PCR (Not Detect) Group A Strep (PCR) (Not Detect) Strep agalactiae (PCR) (Not Detect) Strep pneumoniae (PCR) (Not Detect) P. aeruginosa (PCR) (Not Detect) Clarissa/B-Vanco Res Genes KPC-Carbap Res Gene PCR (Not Detect) 02/04/22 02/04/22 02/04/22 Range/Units 14:35 19:03 20:22 WBC (4.5-11.0) X10^3/uL RBC (4.0-5.2) X10^6/uL Hgb (12.0-16.0) g/dL Hct (36-46) % MCV (80-100) fL MCH (26-34) PG MCHC (30-36) % RDW (11.6-14.8) % Plt Count (150-400) X10^3/uL Neut % (Auto) (50-75) % Lymph % (Auto) (25-40) % Livingston % (Auto) (3-14) % Eos % (Auto) (2-4) % Baso % (Auto) (0-2) % Neut # (Auto) (0157-1284) /uL Lymph # (Auto) (5853-8971) /uL Livingston # (Auto) (0-900) /uL Eos # (Auto) (0-450) /uL Baso # (Auto) (0-100) /uL PT (10.1-12.7) SECONDS INR (0.9-1.3) APTT (26.4-36.2) SECONDS D-Dimer (<230) ng/mL Sodium (137-145) mmol/L Potassium (3.4-5.1) mmol/L Chloride (98-107) mmol/L Carbon Dioxide (22-32) mmol/L BUN (7-17) mg/dL Creatinine (0.52-1.04) mg/dL Estimated GFR (>60) mL/min BUN/Creatinine Ratio (6-22) Glucose (80-110) mg/dL Lactate (0.7-2.1) mmol/L Calcium (8.4-10.2) mg/dL Magnesium (1.6-2.3) mg/dL Total Bilirubin (0.2-1.3) mg/dL AST (14-36) IU/L ALT (<35) IU/L Alkaline Phosphatase (38-126) U/L Total Creatine Kinase (30-135) U/L CK-MB (CK-2) CK-MB (CK-2) Rel Index Troponin I 0.050 H (0.01-0.034) ng/mL NT-Pro-B Natriuret Pep (<125) pg/mL Total Protein (6.3-8.2) g/dL Albumin (3.5-5.0) g/dL Globulin (1.7-4.1) g/dL Albumin/Globulin Ratio (1.0-2.8) Lipase (23-300) U/L Procalcitonin (<0.5) ng/mL A. baumannii (PCR) Not detected (Not Detect) Katie albicans (PCR) Not detected (Not Detect) C. glabrata (PCR) Not detected (Not Detect) C. krusei (PCR) Not detected (Not Detect) C. parapsilosis (PCR) Not detected (Not Detect) C. tropicalis (PCR) Not detected (Not Detect) SARS-CoV-2 (PCR) Negative (Negative) Enterobacteriac sp PCR Detected H (Not Detect) E. cloacae complex PCR Not detected (Not Detect) Enterococcus sp PCR Not detected (Not Detect) E. coli (PCR) Detected H (Not Detect) H. influenzae (PCR) Not detected (Not Detect) Klebsiella oxytoca PCR Not detected (Not Detect) Klebsiella pneumoniae Not detected (Not Detect) List. monocytogenes PCR Not detected (Not Detect) N. meningitidis (PCR) Not detected (Not Detect) Proteus species (PCR) Not detected (Not Detect) Serratia marcescens PCR Not detected (Not Detect) Staphylococcus sp PCR Not detected (Not Detect) Staph aureus (PCR) Not detected (Not Detect) mecA-Methicil Res Gene Not Reportable Streptococcus sp PCR Not detected (Not Detect) Group A Strep (PCR) Not detected (Not Detect) Strep agalactiae (PCR) Not detected (Not Detect) Strep pneumoniae (PCR) Not detected (Not Detect) P. aeruginosa (PCR) Not detected (Not Detect) Clarissa/B-Vanco Res Genes Not Reportable KPC-Carbap Res Gene PCR Not detected (Not Detect) 02/04/22 02/04/22 02/04/22 Range/Units 20:23 20:23 22:40 WBC (4.5-11.0) X10^3/uL RBC (4.0-5.2) X10^6/uL Hgb (12.0-16.0) g/dL Hct (36-46) % MCV (80-100) fL MCH (26-34) PG MCHC (30-36) % RDW (11.6-14.8) % Plt Count (150-400) X10^3/uL Neut % (Auto) (50-75) % Lymph % (Auto) (25-40) % Livingston % (Auto) (3-14) % Eos % (Auto) (2-4) % Baso % (Auto) (0-2) % Neut # (Auto) (6369-6466) /uL Lymph # (Auto) (9688-2389) /uL Livingston # (Auto) (0-900) /uL Eos # (Auto) (0-450) /uL Baso # (Auto) (0-100) /uL PT (10.1-12.7) SECONDS INR (0.9-1.3) APTT (26.4-36.2) SECONDS D-Dimer (<230) ng/mL Sodium (137-145) mmol/L Potassium (3.4-5.1) mmol/L Chloride (98-107) mmol/L Carbon Dioxide (22-32) mmol/L BUN (7-17) mg/dL Creatinine (0.52-1.04) mg/dL Estimated GFR (>60) mL/min BUN/Creatinine Ratio (6-22) Glucose (80-110) mg/dL Lactate 1.8 (0.7-2.1) mmol/L Calcium (8.4-10.2) mg/dL Magnesium (1.6-2.3) mg/dL Total Bilirubin (0.2-1.3) mg/dL AST (14-36) IU/L ALT (<35) IU/L Alkaline Phosphatase (38-126) U/L Total Creatine Kinase (30-135) U/L CK-MB (CK-2) CK-MB (CK-2) Rel Index Troponin I 0.058 H (0.01-0.034) ng/mL NT-Pro-B Natriuret Pep (<125) pg/mL Total Protein (6.3-8.2) g/dL Albumin (3.5-5.0) g/dL Globulin (1.7-4.1) g/dL Albumin/Globulin Ratio (1.0-2.8) Lipase (23-300) U/L Procalcitonin 8.70 H (<0.5) ng/mL A. baumannii (PCR) (Not Detect) Katie albicans (PCR) (Not Detect) C. glabrata (PCR) (Not Detect) C. krusei (PCR) (Not Detect) C. parapsilosis (PCR) (Not Detect) C. tropicalis (PCR) (Not Detect) SARS-CoV-2 (PCR) (Negative) Enterobacteriac sp PCR (Not Detect) E. cloacae complex PCR (Not Detect) Enterococcus sp PCR (Not Detect) E. coli (PCR) (Not Detect) H. influenzae (PCR) (Not Detect) Klebsiella oxytoca PCR (Not Detect) Klebsiella pneumoniae (Not Detect) List. monocytogenes PCR (Not Detect) N. meningitidis (PCR) (Not Detect) Proteus species (PCR) (Not Detect) Serratia marcescens PCR (Not Detect) Staphylococcus sp PCR (Not Detect) Staph aureus (PCR) (Not Detect) mecA-Methicil Res Gene Streptococcus sp PCR (Not Detect) Group A Strep (PCR) (Not Detect) Strep agalactiae (PCR) (Not Detect) Strep pneumoniae (PCR) (Not Detect) P. aeruginosa (PCR) (Not Detect) Clarissa/B-Vanco Res Genes KPC-Carbap Res Gene PCR (Not Detect) 02/05/22 02/05/22 02/05/22 Range/Units 01:55 05:55 05:55 WBC 9.4 D (4.5-11.0) X10^3/uL RBC 4.12 (4.0-5.2) X10^6/uL Hgb 11.8 L (12.0-16.0) g/dL Hct 36.0 (36-46) % MCV 87.5 (80-100) fL MCH 28.7 (26-34) PG MCHC 32.8 (30-36) % RDW 18.3 H (11.6-14.8) % Plt Count 59 L (150-400) X10^3/uL Neut % (Auto) 91.5 H (50-75) % Lymph % (Auto) 2.3 L (25-40) % Livingston % (Auto) 6.1 (3-14) % Eos % (Auto) 0.1 L (2-4) % Baso % (Auto) 0.0 (0-2) % Neut # (Auto) 8600 H (7942-0527) /uL Lymph # (Auto) 200 L (5358-0642) /uL Livingston # (Auto) 600 (0-900) /uL Eos # (Auto) 0 (0-450) /uL Baso # (Auto) 0 (0-100) /uL PT (10.1-12.7) SECONDS INR (0.9-1.3) APTT (26.4-36.2) SECONDS D-Dimer (<230) ng/mL Sodium 136 L (137-145) mmol/L Potassium 4.7 (3.4-5.1) mmol/L Chloride 108 H (98-107) mmol/L Carbon Dioxide 21 L (22-32) mmol/L BUN 24 H (7-17) mg/dL Creatinine 1.24 H (0.52-1.04) mg/dL Estimated GFR 48 L (>60) mL/min BUN/Creatinine Ratio 19.4 (6-22) Glucose 179 H (80-110) mg/dL Lactate (0.7-2.1) mmol/L Calcium 8.1 L (8.4-10.2) mg/dL Magnesium (1.6-2.3) mg/dL Total Bilirubin 6.0 H (0.2-1.3) mg/dL AST 121 H (14-36) IU/L ALT 47 H (<35) IU/L Alkaline Phosphatase 196 H (38-126) U/L Total Creatine Kinase (30-135) U/L CK-MB (CK-2) CK-MB (CK-2) Rel Index Troponin I 0.061 H (0.01-0.034) ng/mL NT-Pro-B Natriuret Pep (<125) pg/mL Total Protein 7.7 (6.3-8.2) g/dL Albumin 3.4 L (3.5-5.0) g/dL Globulin 4.3 H (1.7-4.1) g/dL Albumin/Globulin Ratio 0.8 L (1.0-2.8) Lipase (23-300) U/L Procalcitonin (<0.5) ng/mL A. baumannii (PCR) (Not Detect) Katie albicans (PCR) (Not Detect) C. glabrata (PCR) (Not Detect) C. krusei (PCR) (Not Detect) C. parapsilosis (PCR) (Not Detect) C. tropicalis (PCR) (Not Detect) SARS-CoV-2 (PCR) (Negative) Enterobacteriac sp PCR (Not Detect) E. cloacae complex PCR (Not Detect) Enterococcus sp PCR (Not Detect) E. coli (PCR) (Not Detect) H. influenzae (PCR) (Not Detect) Klebsiella oxytoca PCR (Not Detect) Klebsiella pneumoniae (Not Detect) List. monocytogenes PCR (Not Detect) N. meningitidis (PCR) (Not Detect) Proteus species (PCR) (Not Detect) Serratia marcescens PCR (Not Detect) Staphylococcus sp PCR (Not Detect) Staph aureus (PCR) (Not Detect) mecA-Methicil Res Gene Streptococcus sp PCR (Not Detect) Group A Strep (PCR) (Not Detect) Strep agalactiae (PCR) (Not Detect) Strep pneumoniae (PCR) (Not Detect) P. aeruginosa (PCR) (Not Detect) Clarissa/B-Vanco Res Genes KPC-Carbap Res Gene PCR (Not Detect) 02/05/22 02/05/22 02/05/22 Range/Units 05:55 05:55 08:04 WBC (4.5-11.0) X10^3/uL RBC (4.0-5.2) X10^6/uL Hgb (12.0-16.0) g/dL Hct (36-46) % MCV (80-100) fL MCH (26-34) PG MCHC (30-36) % RDW (11.6-14.8) % Plt Count (150-400) X10^3/uL Neut % (Auto) (50-75) % Lymph % (Auto) (25-40) % Livingston % (Auto) (3-14) % Eos % (Auto) (2-4) % Baso % (Auto) (0-2) % Neut # (Auto) (3483-8378) /uL Lymph # (Auto) (1266-3584) /uL Livingston # (Auto) (0-900) /uL Eos # (Auto) (0-450) /uL Baso # (Auto) (0-100) /uL PT (10.1-12.7) SECONDS INR (0.9-1.3) APTT (26.4-36.2) SECONDS D-Dimer (<230) ng/mL Sodium (137-145) mmol/L Potassium (3.4-5.1) mmol/L Chloride (98-107) mmol/L Carbon Dioxide (22-32) mmol/L BUN (7-17) mg/dL Creatinine (0.52-1.04) mg/dL Estimated GFR (>60) mL/min BUN/Creatinine Ratio (6-22) Glucose (80-110) mg/dL Lactate (0.7-2.1) mmol/L Calcium (8.4-10.2) mg/dL Magnesium (1.6-2.3) mg/dL Total Bilirubin (0.2-1.3) mg/dL AST (14-36) IU/L ALT (<35) IU/L Alkaline Phosphatase (38-126) U/L Total Creatine Kinase (30-135) U/L CK-MB (CK-2) CK-MB (CK-2) Rel Index Troponin I 0.084 H (0.01-0.034) ng/mL NT-Pro-B Natriuret Pep 549 H (<125) pg/mL Total Protein (6.3-8.2) g/dL Albumin (3.5-5.0) g/dL Globulin (1.7-4.1) g/dL Albumin/Globulin Ratio (1.0-2.8) Lipase 81 D (23-300) U/L Procalcitonin (<0.5) ng/mL A. baumannii (PCR) (Not Detect) Katie albicans (PCR) (Not Detect) C. glabrata (PCR) (Not Detect) C. krusei (PCR) (Not Detect) C. parapsilosis (PCR) (Not Detect) C. tropicalis (PCR) (Not Detect) SARS-CoV-2 (PCR) (Negative) Enterobacteriac sp PCR (Not Detect) E. cloacae complex PCR (Not Detect) Enterococcus sp PCR (Not Detect) E. coli (PCR) (Not Detect) H. influenzae (PCR) (Not Detect) Klebsiella oxytoca PCR (Not Detect) Klebsiella pneumoniae (Not Detect) List. monocytogenes PCR (Not Detect) N. meningitidis (PCR) (Not Detect) Proteus species (PCR) (Not Detect) Serratia marcescens PCR (Not Detect) Staphylococcus sp PCR (Not Detect) Staph aureus (PCR) (Not Detect) mecA-Methicil Res Gene Streptococcus sp PCR (Not Detect) Group A Strep (PCR) (Not Detect) Strep agalactiae (PCR) (Not Detect) Strep pneumoniae (PCR) (Not Detect) P. aeruginosa (PCR) (Not Detect) Clarissa/B-Vanco Res Genes KPC-Carbap Res Gene PCR (Not Detect) 02/05/22 02/05/22 02/05/22 Range/Units 08:04 08:04 08:04 WBC (4.5-11.0) X10^3/uL RBC (4.0-5.2) X10^6/uL Hgb (12.0-16.0) g/dL Hct (36-46) % MCV (80-100) fL MCH (26-34) PG MCHC (30-36) % RDW (11.6-14.8) % Plt Count (150-400) X10^3/uL Neut % (Auto) (50-75) % Lymph % (Auto) (25-40) % Livingston % (Auto) (3-14) % Eos % (Auto) (2-4) % Baso % (Auto) (0-2) % Neut # (Auto) (4662-2387) /uL Lymph # (Auto) (0235-0034) /uL Livingston # (Auto) (0-900) /uL Eos # (Auto) (0-450) /uL Baso # (Auto) (0-100) /uL PT (10.1-12.7) SECONDS INR (0.9-1.3) APTT (26.4-36.2) SECONDS D-Dimer 894 H (<230) ng/mL Sodium (137-145) mmol/L Potassium (3.4-5.1) mmol/L Chloride (98-107) mmol/L Carbon Dioxide (22-32) mmol/L BUN (7-17) mg/dL Creatinine (0.52-1.04) mg/dL Estimated GFR (>60) mL/min BUN/Creatinine Ratio (6-22) Glucose (80-110) mg/dL Lactate 1.4 (0.7-2.1) mmol/L Calcium (8.4-10.2) mg/dL Magnesium (1.6-2.3) mg/dL Total Bilirubin (0.2-1.3) mg/dL AST (14-36) IU/L ALT (<35) IU/L Alkaline Phosphatase (38-126) U/L Total Creatine Kinase (30-135) U/L CK-MB (CK-2) CK-MB (CK-2) Rel Index Troponin I 0.081 H (0.01-0.034) ng/mL NT-Pro-B Natriuret Pep (<125) pg/mL Total Protein (6.3-8.2) g/dL Albumin (3.5-5.0) g/dL Globulin (1.7-4.1) g/dL Albumin/Globulin Ratio (1.0-2.8) Lipase (23-300) U/L Procalcitonin (<0.5) ng/mL A. baumannii (PCR) (Not Detect) Katie albicans (PCR) (Not Detect) C. glabrata (PCR) (Not Detect) C. krusei (PCR) (Not Detect) C. parapsilosis (PCR) (Not Detect) C. tropicalis (PCR) (Not Detect) SARS-CoV-2 (PCR) (Negative) Enterobacteriac sp PCR (Not Detect) E. cloacae complex PCR (Not Detect) Enterococcus sp PCR (Not Detect) E. coli (PCR) (Not Detect) H. influenzae (PCR) (Not Detect) Klebsiella oxytoca PCR (Not Detect) Klebsiella pneumoniae (Not Detect) List. monocytogenes PCR (Not Detect) N. meningitidis (PCR) (Not Detect) Proteus species (PCR) (Not Detect) Serratia marcescens PCR (Not Detect) Staphylococcus sp PCR (Not Detect) Staph aureus (PCR) (Not Detect) mecA-Methicil Res Gene Streptococcus sp PCR (Not Detect) Group A Strep (PCR) (Not Detect) Strep agalactiae (PCR) (Not Detect) Strep pneumoniae (PCR) (Not Detect) P. aeruginosa (PCR) (Not Detect) Clarissa/B-Vanco Res Genes KPC-Carbap Res Gene PCR (Not Detect) 02/05/22 Range/Units 08:04 WBC (4.5-11.0) X10^3/uL RBC (4.0-5.2) X10^6/uL Hgb (12.0-16.0) g/dL Hct (36-46) % MCV (80-100) fL MCH (26-34) PG MCHC (30-36) % RDW (11.6-14.8) % Plt Count (150-400) X10^3/uL Neut % (Auto) (50-75) % Lymph % (Auto) (25-40) % Livingston % (Auto) (3-14) % Eos % (Auto) (2-4) % Baso % (Auto) (0-2) % Neut # (Auto) (3299-7683) /uL Lymph # (Auto) (5349-9574) /uL Livingston # (Auto) (0-900) /uL Eos # (Auto) (0-450) /uL Baso # (Auto) (0-100) /uL PT (10.1-12.7) SECONDS INR (0.9-1.3) APTT 27 (26.4-36.2) SECONDS D-Dimer (<230) ng/mL Sodium (137-145) mmol/L Potassium (3.4-5.1) mmol/L Chloride (98-107) mmol/L Carbon Dioxide (22-32) mmol/L BUN (7-17) mg/dL Creatinine (0.52-1.04) mg/dL Estimated GFR (>60) mL/min BUN/Creatinine Ratio (6-22) Glucose (80-110) mg/dL Lactate (0.7-2.1) mmol/L Calcium (8.4-10.2) mg/dL Magnesium (1.6-2.3) mg/dL Total Bilirubin (0.2-1.3) mg/dL AST (14-36) IU/L ALT (<35) IU/L Alkaline Phosphatase (38-126) U/L Total Creatine Kinase (30-135) U/L CK-MB (CK-2) CK-MB (CK-2) Rel Index Troponin I (0.01-0.034) ng/mL NT-Pro-B Natriuret Pep (<125) pg/mL Total Protein (6.3-8.2) g/dL Albumin (3.5-5.0) g/dL Globulin (1.7-4.1) g/dL Albumin/Globulin Ratio (1.0-2.8) Lipase (23-300) U/L Procalcitonin (<0.5) ng/mL A. baumannii (PCR) (Not Detect) Katie albicans (PCR) (Not Detect) C. glabrata (PCR) (Not Detect) C. krusei (PCR) (Not Detect) C. parapsilosis (PCR) (Not Detect) C. tropicalis (PCR) (Not Detect) SARS-CoV-2 (PCR) (Negative) Enterobacteriac sp PCR (Not Detect) E. cloacae complex PCR (Not Detect) Enterococcus sp PCR (Not Detect) E. coli (PCR) (Not Detect) H. influenzae (PCR) (Not Detect) Klebsiella oxytoca PCR (Not Detect) Klebsiella pneumoniae (Not Detect) List. monocytogenes PCR (Not Detect) N. meningitidis (PCR) (Not Detect) Proteus species (PCR) (Not Detect) Serratia marcescens PCR (Not Detect) Staphylococcus sp PCR (Not Detect) Staph aureus (PCR) (Not Detect) mecA-Methicil Res Gene Streptococcus sp PCR (Not Detect) Group A Strep (PCR) (Not Detect) Strep agalactiae (PCR) (Not Detect) Strep pneumoniae (PCR) (Not Detect) P. aeruginosa (PCR) (Not Detect) Clarissa/B-Vanco Res Genes KPC-Carbap Res Gene PCR (Not Detect) Point of Care Testing Glucose POC [address] scan - abdomen/pelvis: Radiologist's Impression: [address] [address] [address] Scan Report Signed Patient: Marianela Valdez MR#: [id number] : 1955 Acct:[id number] Age/Sex: 66 / F Date of Service: 02/04/22 Loc: ED Accession Number: [id number] ?? Procedure: CT abdomen pelvis w con Ordering Provider: Kuldeep Mahoney MD PROCEDURE:? CT ABDOMEN PELVIS W CON ? INDICATIONS:? Right upper quadrant/epigastric pain ? TECHNIQUE:? After the administration of intravenous contrast, axial sections acquired from the lung bases to the pubic symphysis.? Coronal and sagittal reformats were performed.? For radiation dose reduction, the following was used:? automated exposure control, adjustment of mA and/or kV according to patient size.? ? COMPARISON:? None. ? FINDINGS: ? Lower thorax:? Bibasilar atelectasis present.? Heart size is enlarged, there is dense vascular calcification present. ? Liver:? Liver is enlarged, there is cirrhotic coarsened parenchymal attenuation noted.? Portal vein is nevertheless patent.? Perihepatic free fluid present. ? Biliary system:? Gallbladder is distended, there is an laminated stone in the neck of the gallbladder. ? Pancreas:? Unremarkable without mass or inflammation evident. ? Spleen:? Splenomegaly,13.8 cm ? Adrenals:? Normal morphology and density. ? Reproductive system:? Unremarkable as visualized. ? Urinary system:? Normal renal size and attenuation. No renal calculi, hydronephrosis, or solid mass present.? Urinary bladder unremarkable. ? Gastrointestinal system:? Colon shows diffuse wall thickening.? Several diverticula in noted superimposed in the sigmoid and right colon.? No obstruction. ? Appendix:? Normal appendix identified.? No evidence of appendicitis. ? Peritoneal spaces:? Moderate free fluid in the pelvis ? Vasculature:? The IVC, aorta and iliac vasculature are unremarkable. ? Abdominal wall:? Abdominal wall intact without evidence of ventral or inguinal hernias.? Diffuse subcutaneous induration noted over the mid anterior abdominal wall may related to multiple injections or chronic inflammation ? Musculoskeletal:? Normal bone mineralization.? No acute fractures.? ? IMPRESSION: ? 1. Hepatic cirrhosis and splenomegaly.? Patent portal vein. ? 2. Cholelithiasis and distended gallbladder without dramatic pericholecystic inflammatory change. ? 3. Diffuse colonic wall thickening could reflect colitis the proper clinical setting.? No abscess or obstruction present. ? 3. Moderate free fluid in the abdomen and pelvis. ? Approved by: Paddy Thomas M.D. on 02/04/2022 at 15:33? US - abdomen: Radiologist's Impression: [address] [address] Ultrasound Report Signed Patient: Marianela Valdez MR#: [id number] : 1955 Acct:[id number] Age/Sex: 66 / F Date of Service: 02/04/22 Loc: ED Accession Number: [id number] ?? Procedure: US abdomen limited Ordering Provider: Kuldeep Mahoney MD PROCEDURE:? US ABDOMEN LIMITED ? INDICATIONS:? RUQ/EPIGASTRIC PAIN ? TECHNIQUE:? Real-time scanning was performed of the abdominal and retroperitoneal organs, with image documentation.? ? COMPARISON:? [facility], US, US ABDOMEN COMPLETE, 12/09/2019, 16:33. ? FINDINGS: ? Liver:? Coarse echotexture consistent with hepatic cirrhosis ? Gallbladder:? Biliary sludge in calculi present.? Gallbladder is distended 5.3 cm.? No gallbladder wall thickening, pericholecystic fluid or Carmichael sign. ? Common Bile Duct:? 8.9 mm. ? Pancreas:? Unremarkable as visualized ? IMPRESSION: ? 1. Gallbladder distention and cholelithiasis without ultrasound evidence of acute cholecystitis. ? 2. Prominent CBD 8.9 mm.? Consider follow-up MRCP to evaluate for distal choledocholithiasis ? Approved by: Paddy Thomas M.D. on 02/04/2022 at 16:54? ECG Data Interpretation: Sinus tachycardia rate [address] elevation or depression. <Tamara Hernandez MD - Last Filed: 02/05/22 07:36> Lab Data Labs: Lab Results 02/04/22 02/04/22 02/04/22 Range/Units 14:35 14:35 14:35 WBC 5.4 (4.5-11.0) X10^3/uL RBC 4.57 (4.0-5.2) X10^6/uL Hgb 13.2 (12.0-16.0) g/dL Hct 40.0 (36-46) % MCV 87.6 (80-100) fL MCH 28.9 (26-34) PG MCHC 32.9 (30-36) % RDW 18.5 H (11.6-14.8) % Plt Count 73 L (150-400) X10^3/uL Neut % (Auto) 89.3 H (50-75) % Lymph % (Auto) 4.4 L (25-40) % Livingston % (Auto) 3.9 (3-14) % Eos % (Auto) 1.2 L (2-4) % Baso % (Auto) 1.2 (0-2) % Neut # (Auto) 4800 (5189-7602) /uL Lymph # (Auto) 200 L (1904-6522) /uL Livingston # (Auto) 200 (0-900) /uL Eos # (Auto) 100 (0-450) /uL Baso # (Auto) 100 (0-100) /uL PT 11.6 (10.1-12.7) SECONDS INR 1.0 (0.9-1.3) APTT 31 (26.4-36.2) SECONDS D-Dimer (<230) ng/mL Sodium 138 (137-145) mmol/L Potassium 3.6 (3.4-5.1) mmol/L Chloride 104 (98-107) mmol/L Carbon Dioxide 26 (22-32) mmol/L BUN 20 H (7-17) mg/dL Creatinine 1.11 H (0.52-1.04) mg/dL Estimated GFR 54 L (>60) mL/min BUN/Creatinine Ratio 18.0 (6-22) Glucose 198 H (80-110) mg/dL Lactate (0.7-2.1) mmol/L Calcium 9.1 (8.4-10.2) mg/dL Magnesium 1.9 (1.6-2.3) mg/dL Total Bilirubin 3.0 H (0.2-1.3) mg/dL AST 118 H (14-36) IU/L ALT 41 H (<35) IU/L Alkaline Phosphatase 230 H (38-126) U/L Total Creatine Kinase 39 (30-135) U/L CK-MB (CK-2) TNP CK-MB (CK-2) Rel Index TNP Troponin I 0.014 (0.01-0.034) ng/mL NT-Pro-B Natriuret Pep (<125) pg/mL Total Protein 8.4 H (6.3-8.2) g/dL Albumin 3.9 (3.5-5.0) g/dL Globulin 4.5 H (1.7-4.1) g/dL Albumin/Globulin Ratio 0.9 L (1.0-2.8) Lipase 538 H (23-300) U/L Procalcitonin (<0.5) ng/mL A. baumannii (PCR) (Not Detect) Katie albicans (PCR) (Not Detect) C. glabrata (PCR) (Not Detect) C. krusei (PCR) (Not Detect) C. parapsilosis (PCR) (Not Detect) C. tropicalis (PCR) (Not Detect) SARS-CoV-2 (PCR) (Negative) Enterobacteriac sp PCR (Not Detect) E. cloacae complex PCR (Not Detect) Enterococcus sp PCR (Not Detect) E. coli (PCR) (Not Detect) H. influenzae (PCR) (Not Detect) Klebsiella oxytoca PCR (Not Detect) Klebsiella pneumoniae (Not Detect) List. monocytogenes PCR (Not Detect) N. meningitidis (PCR) (Not Detect) Proteus species (PCR) (Not Detect) Serratia marcescens PCR (Not Detect) Staphylococcus sp PCR (Not Detect) Staph aureus (PCR) (Not Detect) mecA-Methicil Res Gene Streptococcus sp PCR (Not Detect) Group A Strep (PCR) (Not Detect) Strep agalactiae (PCR) (Not Detect) Strep pneumoniae (PCR) (Not Detect) P. aeruginosa (PCR) (Not Detect) Clarissa/B-Vanco Res Genes KPC-Carbap Res Gene PCR (Not Detect) 02/04/22 02/04/22 02/04/22 Range/Units 14:35 19:03 20:22 WBC (4.5-11.0) X10^3/uL RBC (4.0-5.2) X10^6/uL Hgb (12.0-16.0) g/dL Hct (36-46) % MCV (80-100) fL MCH (26-34) PG MCHC (30-36) % RDW (11.6-14.8) % Plt Count (150-400) X10^3/uL Neut % (Auto) (50-75) % Lymph % (Auto) (25-40) % Livingston % (Auto) (3-14) % Eos % (Auto) (2-4) % Baso % (Auto) (0-2) % Neut # (Auto) (7559-7402) /uL Lymph # (Auto) (2177-1954) /uL Livingston # (Auto) (0-900) /uL Eos # (Auto) (0-450) /uL Baso # (Auto) (0-100) /uL PT (10.1-12.7) SECONDS INR (0.9-1.3) APTT (26.4-36.2) SECONDS D-Dimer (<230) ng/mL Sodium (137-145) mmol/L Potassium (3.4-5.1) mmol/L Chloride (98-107) mmol/L Carbon Dioxide (22-32) mmol/L BUN (7-17) mg/dL Creatinine (0.52-1.04) mg/dL Estimated GFR (>60) mL/min BUN/Creatinine Ratio (6-22) Glucose (80-110) mg/dL Lactate (0.7-2.1) mmol/L Calcium (8.4-10.2) mg/dL Magnesium (1.6-2.3) mg/dL Total Bilirubin (0.2-1.3) mg/dL AST (14-36) IU/L ALT (<35) IU/L Alkaline Phosphatase (38-126) U/L Total Creatine Kinase (30-135) U/L CK-MB (CK-2) CK-MB (CK-2) Rel Index Troponin I 0.050 H (0.01-0.034) ng/mL NT-Pro-B Natriuret Pep (<125) pg/mL Total Protein (6.3-8.2) g/dL Albumin (3.5-5.0) g/dL Globulin (1.7-4.1) g/dL Albumin/Globulin Ratio (1.0-2.8) Lipase (23-300) U/L Procalcitonin (<0.5) ng/mL A. baumannii (PCR) Not detected (Not Detect) Katie albicans (PCR) Not detected (Not Detect) C. glabrata (PCR) Not detected (Not Detect) C. krusei (PCR) Not detected (Not Detect) C. parapsilosis (PCR) Not detected (Not Detect) C. tropicalis (PCR) Not detected (Not Detect) SARS-CoV-2 (PCR) Negative (Negative) Enterobacteriac sp PCR Detected H (Not Detect) E. cloacae complex PCR Not detected (Not Detect) Enterococcus sp PCR Not detected (Not Detect) E. coli (PCR) Detected H (Not Detect) H. influenzae (PCR) Not detected (Not Detect) Klebsiella oxytoca PCR Not detected (Not Detect) Klebsiella pneumoniae Not detected (Not Detect) List. monocytogenes PCR Not detected (Not Detect) N. meningitidis (PCR) Not detected (Not Detect) Proteus species (PCR) Not detected (Not Detect) Serratia marcescens PCR Not detected (Not Detect) Staphylococcus sp PCR Not detected (Not Detect) Staph aureus (PCR) Not detected (Not Detect) mecA-Methicil Res Gene Not Reportable Streptococcus sp PCR Not detected (Not Detect) Group A Strep (PCR) Not detected (Not Detect) Strep agalactiae (PCR) Not detected (Not Detect) Strep pneumoniae (PCR) Not detected (Not Detect) P. aeruginosa (PCR) Not detected (Not Detect) Clarissa/B-Vanco Res Genes Not Reportable KPC-Carbap Res Gene PCR Not detected (Not Detect) 02/04/22 02/04/22 02/04/22 Range/Units 20:23 20:23 22:40 WBC (4.5-11.0) X10^3/uL RBC (4.0-5.2) X10^6/uL Hgb (12.0-16.0) g/dL Hct (36-46) % MCV (80-100) fL MCH (26-34) PG MCHC (30-36) % RDW (11.6-14.8) % Plt Count (150-400) X10^3/uL Neut % (Auto) (50-75) % Lymph % (Auto) (25-40) % Livingston % (Auto) (3-14) % Eos % (Auto) (2-4) % Baso % (Auto) (0-2) % Neut # (Auto) (2081-1500) /uL Lymph # (Auto) (8318-2536) /uL Livingston # (Auto) (0-900) /uL Eos # (Auto) (0-450) /uL Baso # (Auto) (0-100) /uL PT (10.1-12.7) SECONDS INR (0.9-1.3) APTT (26.4-36.2) SECONDS D-Dimer (<230) ng/mL Sodium (137-145) mmol/L Potassium (3.4-5.1) mmol/L Chloride (98-107) mmol/L Carbon Dioxide (22-32) mmol/L BUN (7-17) mg/dL Creatinine (0.52-1.04) mg/dL Estimated GFR (>60) mL/min BUN/Creatinine Ratio (6-22) Glucose (80-110) mg/dL Lactate 1.8 (0.7-2.1) mmol/L Calcium (8.4-10.2) mg/dL Magnesium (1.6-2.3) mg/dL Total Bilirubin (0.2-1.3) mg/dL AST (14-36) IU/L ALT (<35) IU/L Alkaline Phosphatase (38-126) U/L Total Creatine Kinase (30-135) U/L CK-MB (CK-2) CK-MB (CK-2) Rel Index Troponin I 0.058 H (0.01-0.034) ng/mL NT-Pro-B Natriuret Pep (<125) pg/mL Total Protein (6.3-8.2) g/dL Albumin (3.5-5.0) g/dL Globulin (1.7-4.1) g/dL Albumin/Globulin Ratio (1.0-2.8) Lipase (23-300) U/L Procalcitonin 8.70 H (<0.5) ng/mL A. baumannii (PCR) (Not Detect) Katie albicans (PCR) (Not Detect) C. glabrata (PCR) (Not Detect) C. krusei (PCR) (Not Detect) C. parapsilosis (PCR) (Not Detect) C. tropicalis (PCR) (Not Detect) SARS-CoV-2 (PCR) (Negative) Enterobacteriac sp PCR (Not Detect) E. cloacae complex PCR (Not Detect) Enterococcus sp PCR (Not Detect) E. coli (PCR) (Not Detect) H. influenzae (PCR) (Not Detect) Klebsiella oxytoca PCR (Not Detect) Klebsiella pneumoniae (Not Detect) List. monocytogenes PCR (Not Detect) N. meningitidis (PCR) (Not Detect) Proteus species (PCR) (Not Detect) Serratia marcescens PCR (Not Detect) Staphylococcus sp PCR (Not Detect) Staph aureus (PCR) (Not Detect) mecA-Methicil Res Gene Streptococcus sp PCR (Not Detect) Group A Strep (PCR) (Not Detect) Strep agalactiae (PCR) (Not Detect) Strep pneumoniae (PCR) (Not Detect) P. aeruginosa (PCR) (Not Detect) Clarissa/B-Vanco Res Genes KPC-Carbap Res Gene PCR (Not Detect) 02/05/22 02/05/22 02/05/22 Range/Units 01:55 05:55 05:55 WBC 9.4 D (4.5-11.0) X10^3/uL RBC 4.12 (4.0-5.2) X10^6/uL Hgb 11.8 L (12.0-16.0) g/dL Hct 36.0 (36-46) % MCV 87.5 (80-100) fL MCH 28.7 (26-34) PG MCHC 32.8 (30-36) % RDW 18.3 H (11.6-14.8) % Plt Count 59 L (150-400) X10^3/uL Neut % (Auto) 91.5 H (50-75) % Lymph % (Auto) 2.3 L (25-40) % Livingston % (Auto) 6.1 (3-14) % Eos % (Auto) 0.1 L (2-4) % Baso % (Auto) 0.0 (0-2) % Neut # (Auto) 8600 H (7003-2822) /uL Lymph # (Auto) 200 L (6422-1579) /uL Livingston # (Auto) 600 (0-900) /uL Eos # (Auto) 0 (0-450) /uL Baso # (Auto) 0 (0-100) /uL PT (10.1-12.7) SECONDS INR (0.9-1.3) APTT (26.4-36.2) SECONDS D-Dimer (<230) ng/mL Sodium 136 L (137-145) mmol/L Potassium 4.7 (3.4-5.1) mmol/L Chloride 108 H (98-107) mmol/L Carbon Dioxide 21 L (22-32) mmol/L BUN 24 H (7-17) mg/dL Creatinine 1.24 H (0.52-1.04) mg/dL Estimated GFR 48 L (>60) mL/min BUN/Creatinine Ratio 19.4 (6-22) Glucose 179 H (80-110) mg/dL Lactate (0.7-2.1) mmol/L Calcium 8.1 L (8.4-10.2) mg/dL Magnesium (1.6-2.3) mg/dL Total Bilirubin 6.0 H (0.2-1.3) mg/dL AST 121 H (14-36) IU/L ALT 47 H (<35) IU/L Alkaline Phosphatase 196 H (38-126) U/L Total Creatine Kinase (30-135) U/L CK-MB (CK-2) CK-MB (CK-2) Rel Index Troponin I 0.061 H (0.01-0.034) ng/mL NT-Pro-B Natriuret Pep (<125) pg/mL Total Protein 7.7 (6.3-8.2) g/dL Albumin 3.4 L (3.5-5.0) g/dL Globulin 4.3 H (1.7-4.1) g/dL Albumin/Globulin Ratio 0.8 L (1.0-2.8) Lipase (23-300) U/L Procalcitonin (<0.5) ng/mL A. baumannii (PCR) (Not Detect) Katie albicans (PCR) (Not Detect) C. glabrata (PCR) (Not Detect) C. krusei (PCR) (Not Detect) C. parapsilosis (PCR) (Not Detect) C. tropicalis (PCR) (Not Detect) SARS-CoV-2 (PCR) (Negative) Enterobacteriac sp PCR (Not Detect) E. cloacae complex PCR (Not Detect) Enterococcus sp PCR (Not Detect) E. coli (PCR) (Not Detect) H. influenzae (PCR) (Not Detect) Klebsiella oxytoca PCR (Not Detect) Klebsiella pneumoniae (Not Detect) List. monocytogenes PCR (Not Detect) N. meningitidis (PCR) (Not Detect) Proteus species (PCR) (Not Detect) Serratia marcescens PCR (Not Detect) Staphylococcus sp PCR (Not Detect) Staph aureus (PCR) (Not Detect) mecA-Methicil Res Gene Streptococcus sp PCR (Not Detect) Group A Strep (PCR) (Not Detect) Strep agalactiae (PCR) (Not Detect) Strep pneumoniae (PCR) (Not Detect) P. aeruginosa (PCR) (Not Detect) Clarissa/B-Vanco Res Genes KPC-Carbap Res Gene PCR (Not Detect) 02/05/22 02/05/22 02/05/22 Range/Units 05:55 05:55 08:04 WBC (4.5-11.0) X10^3/uL RBC (4.0-5.2) X10^6/uL Hgb (12.0-16.0) g/dL Hct (36-46) % MCV (80-100) fL MCH (26-34) PG MCHC (30-36) % RDW (11.6-14.8) % Plt Count (150-400) X10^3/uL Neut % (Auto) (50-75) % Lymph % (Auto) (25-40) % Livingston % (Auto) (3-14) % Eos % (Auto) (2-4) % Baso % (Auto) (0-2) % Neut # (Auto) (2485-0896) /uL Lymph # (Auto) (8834-7029) /uL Livingston # (Auto) (0-900) /uL Eos # (Auto) (0-450) /uL Baso # (Auto) (0-100) /uL PT (10.1-12.7) SECONDS INR (0.9-1.3) APTT (26.4-36.2) SECONDS D-Dimer (<230) ng/mL Sodium (137-145) mmol/L Potassium (3.4-5.1) mmol/L Chloride (98-107) mmol/L Carbon Dioxide (22-32) mmol/L BUN (7-17) mg/dL Creatinine (0.52-1.04) mg/dL Estimated GFR (>60) mL/min BUN/Creatinine Ratio (6-22) Glucose (80-110) mg/dL Lactate (0.7-2.1) mmol/L Calcium (8.4-10.2) mg/dL Magnesium (1.6-2.3) mg/dL Total Bilirubin (0.2-1.3) mg/dL AST (14-36) IU/L ALT (<35) IU/L Alkaline Phosphatase (38-126) U/L Total Creatine Kinase (30-135) U/L CK-MB (CK-2) CK-MB (CK-2) Rel Index Troponin I 0.084 H (0.01-0.034) ng/mL NT-Pro-B Natriuret Pep 549 H (<125) pg/mL Total Protein (6.3-8.2) g/dL Albumin (3.5-5.0) g/dL Globulin (1.7-4.1) g/dL Albumin/Globulin Ratio (1.0-2.8) Lipase 81 D (23-300) U/L Procalcitonin (<0.5) ng/mL A. baumannii (PCR) (Not Detect) Katie albicans (PCR) (Not Detect) C. glabrata (PCR) (Not Detect) C. krusei (PCR) (Not Detect) C. parapsilosis (PCR) (Not Detect) C. tropicalis (PCR) (Not Detect) SARS-CoV-2 (PCR) (Negative) Enterobacteriac sp PCR (Not Detect) E. cloacae complex PCR (Not Detect) Enterococcus sp PCR (Not Detect) E. coli (PCR) (Not Detect) H. influenzae (PCR) (Not Detect) Klebsiella oxytoca PCR (Not Detect) Klebsiella pneumoniae (Not Detect) List. monocytogenes PCR (Not Detect) N. meningitidis (PCR) (Not Detect) Proteus species (PCR) (Not Detect) Serratia marcescens PCR (Not Detect) Staphylococcus sp PCR (Not Detect) Staph aureus (PCR) (Not Detect) mecA-Methicil Res Gene Streptococcus sp PCR (Not Detect) Group A Strep (PCR) (Not Detect) Strep agalactiae (PCR) (Not Detect) Strep pneumoniae (PCR) (Not Detect) P. aeruginosa (PCR) (Not Detect) Clarissa/B-Vanco Res Genes KPC-Carbap Res Gene PCR (Not Detect) 02/05/22 02/05/22 02/05/22 Range/Units 08:04 08:04 08:04 WBC (4.5-11.0) X10^3/uL RBC (4.0-5.2) X10^6/uL Hgb (12.0-16.0) g/dL Hct (36-46) % MCV (80-100) fL MCH (26-34) PG MCHC (30-36) % RDW (11.6-14.8) % Plt Count (150-400) X10^3/uL Neut % (Auto) (50-75) % Lymph % (Auto) (25-40) % Livingston % (Auto) (3-14) % Eos % (Auto) (2-4) % Baso % (Auto) (0-2) % Neut # (Auto) (8382-7312) /uL Lymph # (Auto) (2305-2984) /uL Livingston # (Auto) (0-900) /uL Eos # (Auto) (0-450) /uL Baso # (Auto) (0-100) /uL PT (10.1-12.7) SECONDS INR (0.9-1.3) APTT (26.4-36.2) SECONDS D-Dimer 894 H (<230) ng/mL Sodium (137-145) mmol/L Potassium (3.4-5.1) mmol/L Chloride (98-107) mmol/L Carbon Dioxide (22-32) mmol/L BUN (7-17) mg/dL Creatinine (0.52-1.04) mg/dL Estimated GFR (>60) mL/min BUN/Creatinine Ratio (6-22) Glucose (80-110) mg/dL Lactate 1.4 (0.7-2.1) mmol/L Calcium (8.4-10.2) mg/dL Magnesium (1.6-2.3) mg/dL Total Bilirubin (0.2-1.3) mg/dL AST (14-36) IU/L ALT (<35) IU/L Alkaline Phosphatase (38-126) U/L Total Creatine Kinase (30-135) U/L CK-MB (CK-2) CK-MB (CK-2) Rel Index Troponin I 0.081 H (0.01-0.034) ng/mL NT-Pro-B Natriuret Pep (<125) pg/mL Total Protein (6.3-8.2) g/dL Albumin (3.5-5.0) g/dL Globulin (1.7-4.1) g/dL Albumin/Globulin Ratio (1.0-2.8) Lipase (23-300) U/L Procalcitonin (<0.5) ng/mL A. baumannii (PCR) (Not Detect) Katie albicans (PCR) (Not Detect) C. glabrata (PCR) (Not Detect) C. krusei (PCR) (Not Detect) C. parapsilosis (PCR) (Not Detect) C. tropicalis (PCR) (Not Detect) SARS-CoV-2 (PCR) (Negative) Enterobacteriac sp PCR (Not Detect) E. cloacae complex PCR (Not Detect) Enterococcus sp PCR (Not Detect) E. coli (PCR) (Not Detect) H. influenzae (PCR) (Not Detect) Klebsiella oxytoca PCR (Not Detect) Klebsiella pneumoniae (Not Detect) List. monocytogenes PCR (Not Detect) N. meningitidis (PCR) (Not Detect) Proteus species (PCR) (Not Detect) Serratia marcescens PCR (Not Detect) Staphylococcus sp PCR (Not Detect) Staph aureus (PCR) (Not Detect) mecA-Methicil Res Gene Streptococcus sp PCR (Not Detect) Group A Strep (PCR) (Not Detect) Strep agalactiae (PCR) (Not Detect) Strep pneumoniae (PCR) (Not Detect) P. aeruginosa (PCR) (Not Detect) Clarissa/B-Vanco Res Genes KPC-Carbap Res Gene PCR (Not Detect) 02/05/22 Range/Units 08:04 WBC (4.5-11.0) X10^3/uL RBC (4.0-5.2) X10^6/uL Hgb (12.0-16.0) g/dL Hct (36-46) % MCV (80-100) fL MCH (26-34) PG MCHC (30-36) % RDW (11.6-14.8) % Plt Count (150-400) X10^3/uL Neut % (Auto) (50-75) % Lymph % (Auto) (25-40) % Livingston % (Auto) (3-14) % Eos % (Auto) (2-4) % Baso % (Auto) (0-2) % Neut # (Auto) (4136-4386) /uL Lymph # (Auto) (8927-4469) /uL Livingston # (Auto) (0-900) /uL Eos # (Auto) (0-450) /uL Baso # (Auto) (0-100) /uL PT (10.1-12.7) SECONDS INR (0.9-1.3) APTT 27 (26.4-36.2) SECONDS D-Dimer (<230) ng/mL Sodium (137-145) mmol/L Potassium (3.4-5.1) mmol/L Chloride (98-107) mmol/L Carbon Dioxide (22-32) mmol/L BUN (7-17) mg/dL Creatinine (0.52-1.04) mg/dL Estimated GFR (>60) mL/min BUN/Creatinine Ratio (6-22) Glucose (80-110) mg/dL Lactate (0.7-2.1) mmol/L Calcium (8.4-10.2) mg/dL Magnesium (1.6-2.3) mg/dL Total Bilirubin (0.2-1.3) mg/dL AST (14-36) IU/L ALT (<35) IU/L Alkaline Phosphatase (38-126) U/L Total Creatine Kinase (30-135) U/L CK-MB (CK-2) CK-MB (CK-2) Rel Index Troponin I (0.01-0.034) ng/mL NT-Pro-B Natriuret Pep (<125) pg/mL Total Protein (6.3-8.2) g/dL Albumin (3.5-5.0) g/dL Globulin (1.7-4.1) g/dL Albumin/Globulin Ratio (1.0-2.8) Lipase (23-300) U/L Procalcitonin (<0.5) ng/mL A. baumannii (PCR) (Not Detect) Katie albicans (PCR) (Not Detect) C. glabrata (PCR) (Not Detect) C. krusei (PCR) (Not Detect) C. parapsilosis (PCR) (Not Detect) C. tropicalis (PCR) (Not Detect) SARS-CoV-2 (PCR) (Negative) Enterobacteriac sp PCR (Not Detect) E. cloacae complex PCR (Not Detect) Enterococcus sp PCR (Not Detect) E. coli (PCR) (Not Detect) H. influenzae (PCR) (Not Detect) Klebsiella oxytoca PCR (Not Detect) Klebsiella pneumoniae (Not Detect) List. monocytogenes PCR (Not Detect) N. meningitidis (PCR) (Not Detect) Proteus species (PCR) (Not Detect) Serratia marcescens PCR (Not Detect) Staphylococcus sp PCR (Not Detect) Staph aureus (PCR) (Not Detect) mecA-Methicil Res Gene Streptococcus sp PCR (Not Detect) Group A Strep (PCR) (Not Detect) Strep agalactiae (PCR) (Not Detect) Strep pneumoniae (PCR) (Not Detect) P. aeruginosa (PCR) (Not Detect) Clarissa/B-Vanco Res Genes KPC-Carbap Res Gene PCR (Not Detect) Point of Care Testing Glucose POC 159 ECG Data Interpretation: 14:22 Sinus tachycardia rate [address] elevation or depression. 21:56 Sinus tach at 1:03 a.m. Normal axis, normal intervals No significant change from EKG at 2:22 p.m. today MDM Narrative Medical decision making narrative: Dr Hernandez. Care is assumed. 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 MRCP is needed and she will need hospital admission. MRI is not available this evening. Have spoken with the [facility], Dr Stewart general Medicine attending. Patient is felt to be appropriate for transfer to the [facility] however beds are not currently available. Concurrent with this discussion, patient has become hypotensive increasingly tachycardic with increased respiratory rate. Fluid resuscitation is initiated. She had been initially given ceftriaxone and now with the decreasing blood pressure will will change that to cefepime and Flagyl. If she continues to worsen will contact the [facility] with request for ICU bed rather than general floor care. Plan is begin to work on bed availability and transfer anticipated tomorrow with continued care in resuscitation in the ER here this evening 815pm patient is re-examined. She is responding to fluid bolus however also complaining of increased dyspnea. EKG and troponin on arrival at 2:30 a.m. this afternoon were unremarkable. Will repeat troponin. Explained to her findings, concerns and plan. Questions answered. 10:26. EKG shows no significant change. Troponin has increase from .014 to .050. Pt took 4 baby asa when she called 911 earlier today. Still c/o headache, but dyspnea mildly improved. Nice response to fluid challenge with blood pressure 116/72 currently 225 continued headache. IV narcotics have been briefly useful. Also requesting sleep aid. Medication options are somewhat limited. Riccoadryl has worked well for her with both issues. Will try this. Waiting for next trop. Dyspnea improved and BP remains stable at 132/62 6:09 Dr Jayla Martin, med attending. Accepts admit, agrees on review this am, noted bump in trop and stabalizing pressures, floor care would be appropriate. Will call with bed availablity. Morning labs pending 7am increasing CP. No change with repeat EKG. Trops continue to trend up. Labs with increased bili/ast/alt/alkphos. Bed [facility] available at [facility] with transport to arrive at 845. Pt currently in MRI <Bea Victoria, - Last Filed: 02/05/22 15:48> Lab Data Labs: Lab Results 02/04/22 02/04/22 02/04/22 Range/Units 14:35 14:35 14:35 WBC 5.4 (4.5-11.0) X10^3/uL RBC 4.57 (4.0-5.2) X10^6/uL Hgb 13.2 (12.0-16.0) g/dL Hct 40.0 (36-46) % MCV 87.6 (80-100) fL MCH 28.9 (26-34) PG MCHC 32.9 (30-36) % RDW 18.5 H (11.6-14.8) % Plt Count 73 L (150-400) X10^3/uL Neut % (Auto) 89.3 H (50-75) % Lymph % (Auto) 4.4 L (25-40) % Livingston % (Auto) 3.9 (3-14) % Eos % (Auto) 1.2 L (2-4) % Baso % (Auto) 1.2 (0-2) % Neut # (Auto) 4800 (4949-7891) /uL Lymph # (Auto) 200 L (9054-8353) /uL Livingston # (Auto) 200 (0-900) /uL Eos # (Auto) 100 (0-450) /uL Baso # (Auto) 100 (0-100) /uL PT 11.6 (10.1-12.7) SECONDS INR 1.0 (0.9-1.3) APTT 31 (26.4-36.2) SECONDS D-Dimer (<230) ng/mL Sodium 138 (137-145) mmol/L Potassium 3.6 (3.4-5.1) mmol/L Chloride 104 (98-107) mmol/L Carbon Dioxide 26 (22-32) mmol/L BUN 20 H (7-17) mg/dL Creatinine 1.11 H (0.52-1.04) mg/dL Estimated GFR 54 L (>60) mL/min BUN/Creatinine Ratio 18.0 (6-22) Glucose 198 H (80-110) mg/dL Lactate (0.7-2.1) mmol/L Calcium 9.1 (8.4-10.2) mg/dL Magnesium 1.9 (1.6-2.3) mg/dL Total Bilirubin 3.0 H (0.2-1.3) mg/dL AST 118 H (14-36) IU/L ALT 41 H (<35) IU/L Alkaline Phosphatase 230 H (38-126) U/L Total Creatine Kinase 39 (30-135) U/L CK-MB (CK-2) TNP CK-MB (CK-2) Rel Index TNP Troponin I 0.014 (0.01-0.034) ng/mL NT-Pro-B Natriuret Pep (<125) pg/mL Total Protein 8.4 H (6.3-8.2) g/dL Albumin 3.9 (3.5-5.0) g/dL Globulin 4.5 H (1.7-4.1) g/dL Albumin/Globulin Ratio 0.9 L (1.0-2.8) Lipase 538 H (23-300) U/L Procalcitonin (<0.5) ng/mL A. baumannii (PCR) (Not Detect) Katie albicans (PCR) (Not Detect) C. glabrata (PCR) (Not Detect) C. krusei (PCR) (Not Detect) C. parapsilosis (PCR) (Not Detect) C. tropicalis (PCR) (Not Detect) SARS-CoV-2 (PCR) (Negative) Enterobacteriac sp PCR (Not Detect) E. cloacae complex PCR (Not Detect) Enterococcus sp PCR (Not Detect) E. coli (PCR) (Not Detect) H. influenzae (PCR) (Not Detect) Klebsiella oxytoca PCR (Not Detect) Klebsiella pneumoniae (Not Detect) List. monocytogenes PCR (Not Detect) N. meningitidis (PCR) (Not Detect) Proteus species (PCR) (Not Detect) Serratia marcescens PCR (Not Detect) Staphylococcus sp PCR (Not Detect) Staph aureus (PCR) (Not Detect) mecA-Methicil Res Gene Streptococcus sp PCR (Not Detect) Group A Strep (PCR) (Not Detect) Strep agalactiae (PCR) (Not Detect) Strep pneumoniae (PCR) (Not Detect) P. aeruginosa (PCR) (Not Detect) Clarissa/B-Vanco Res Genes KPC-Carbap Res Gene PCR (Not Detect) 02/04/22 02/04/22 02/04/22 Range/Units 14:35 19:03 20:22 WBC (4.5-11.0) X10^3/uL RBC (4.0-5.2) X10^6/uL Hgb (12.0-16.0) g/dL Hct (36-46) % MCV (80-100) fL MCH (26-34) PG MCHC (30-36) % RDW (11.6-14.8) % Plt Count (150-400) X10^3/uL Neut % (Auto) (50-75) % Lymph % (Auto) (25-40) % Livingston % (Auto) (3-14) % Eos % (Auto) (2-4) % Baso % (Auto) (0-2) % Neut # (Auto) (5554-3527) /uL Lymph # (Auto) (7474-9972) /uL Livingston # (Auto) (0-900) /uL Eos # (Auto) (0-450) /uL Baso # (Auto) (0-100) /uL PT (10.1-12.7) SECONDS INR (0.9-1.3) APTT (26.4-36.2) SECONDS D-Dimer (<230) ng/mL Sodium (137-145) mmol/L Potassium (3.4-5.1) mmol/L Chloride (98-107) mmol/L Carbon Dioxide (22-32) mmol/L BUN (7-17) mg/dL Creatinine (0.52-1.04) mg/dL Estimated GFR (>60) mL/min BUN/Creatinine Ratio (6-22) Glucose (80-110) mg/dL Lactate (0.7-2.1) mmol/L Calcium (8.4-10.2) mg/dL Magnesium (1.6-2.3) mg/dL Total Bilirubin (0.2-1.3) mg/dL AST (14-36) IU/L ALT (<35) IU/L Alkaline Phosphatase (38-126) U/L Total Creatine Kinase (30-135) U/L CK-MB (CK-2) CK-MB (CK-2) Rel Index Troponin I 0.050 H (0.01-0.034) ng/mL NT-Pro-B Natriuret Pep (<125) pg/mL Total Protein (6.3-8.2) g/dL Albumin (3.5-5.0) g/dL Globulin (1.7-4.1) g/dL Albumin/Globulin Ratio (1.0-2.8) Lipase (23-300) U/L Procalcitonin (<0.5) ng/mL A. baumannii (PCR) Not detected (Not Detect) Katie albicans (PCR) Not detected (Not Detect) C. glabrata (PCR) Not detected (Not Detect) C. krusei (PCR) Not detected (Not Detect) C. parapsilosis (PCR) Not detected (Not Detect) C. tropicalis (PCR) Not detected (Not Detect) SARS-CoV-2 (PCR) Negative (Negative) Enterobacteriac sp PCR Detected H (Not Detect) E. cloacae complex PCR Not detected (Not Detect) Enterococcus sp PCR Not detected (Not Detect) E. coli (PCR) Detected H (Not Detect) H. influenzae (PCR) Not detected (Not Detect) Klebsiella oxytoca PCR Not detected (Not Detect) Klebsiella pneumoniae Not detected (Not Detect) List. monocytogenes PCR Not detected (Not Detect) N. meningitidis (PCR) Not detected (Not Detect) Proteus species (PCR) Not detected (Not Detect) Serratia marcescens PCR Not detected (Not Detect) Staphylococcus sp PCR Not detected (Not Detect) Staph aureus (PCR) Not detected (Not Detect) mecA-Methicil Res Gene Not Reportable Streptococcus sp PCR Not detected (Not Detect) Group A Strep (PCR) Not detected (Not Detect) Strep agalactiae (PCR) Not detected (Not Detect) Strep pneumoniae (PCR) Not detected (Not Detect) P. aeruginosa (PCR) Not detected (Not Detect) Clarissa/B-Vanco Res Genes Not Reportable KPC-Carbap Res Gene PCR Not detected (Not Detect) 02/04/22 02/04/22 02/04/22 Range/Units 20:23 20:23 22:40 WBC (4.5-11.0) X10^3/uL RBC (4.0-5.2) X10^6/uL Hgb (12.0-16.0) g/dL Hct (36-46) % MCV (80-100) fL MCH (26-34) PG MCHC (30-36) % RDW (11.6-14.8) % Plt Count (150-400) X10^3/uL Neut % (Auto) (50-75) % Lymph % (Auto) (25-40) % Livingston % (Auto) (3-14) % Eos % (Auto) (2-4) % Baso % (Auto) (0-2) % Neut # (Auto) (4596-1966) /uL Lymph # (Auto) (8963-8612) /uL Livingston # (Auto) (0-900) /uL Eos # (Auto) (0-450) /uL Baso # (Auto) (0-100) /uL PT (10.1-12.7) SECONDS INR (0.9-1.3) APTT (26.4-36.2) SECONDS D-Dimer (<230) ng/mL Sodium (137-145) mmol/L Potassium (3.4-5.1) mmol/L Chloride (98-107) mmol/L Carbon Dioxide (22-32) mmol/L BUN (7-17) mg/dL Creatinine (0.52-1.04) mg/dL Estimated GFR (>60) mL/min BUN/Creatinine Ratio (6-22) Glucose (80-110) mg/dL Lactate 1.8 (0.7-2.1) mmol/L Calcium (8.4-10.2) mg/dL Magnesium (1.6-2.3) mg/dL Total Bilirubin (0.2-1.3) mg/dL AST (14-36) IU/L ALT (<35) IU/L Alkaline Phosphatase (38-126) U/L Total Creatine Kinase (30-135) U/L CK-MB (CK-2) CK-MB (CK-2) Rel Index Troponin I 0.058 H (0.01-0.034) ng/mL NT-Pro-B Natriuret Pep (<125) pg/mL Total Protein (6.3-8.2) g/dL Albumin (3.5-5.0) g/dL Globulin (1.7-4.1) g/dL Albumin/Globulin Ratio (1.0-2.8) Lipase (23-300) U/L Procalcitonin 8.70 H (<0.5) ng/mL A. baumannii (PCR) (Not Detect) Katie albicans (PCR) (Not Detect) C. glabrata (PCR) (Not Detect) C. krusei (PCR) (Not Detect) C. parapsilosis (PCR) (Not Detect) C. tropicalis (PCR) (Not Detect) SARS-CoV-2 (PCR) (Negative) Enterobacteriac sp PCR (Not Detect) E. cloacae complex PCR (Not Detect) Enterococcus sp PCR (Not Detect) E. coli (PCR) (Not Detect) H. influenzae (PCR) (Not Detect) Klebsiella oxytoca PCR (Not Detect) Klebsiella pneumoniae (Not Detect) List. monocytogenes PCR (Not Detect) N. meningitidis (PCR) (Not Detect) Proteus species (PCR) (Not Detect) Serratia marcescens PCR (Not Detect) Staphylococcus sp PCR (Not Detect) Staph aureus (PCR) (Not Detect) mecA-Methicil Res Gene Streptococcus sp PCR (Not Detect) Group A Strep (PCR) (Not Detect) Strep agalactiae (PCR) (Not Detect) Strep pneumoniae (PCR) (Not Detect) P. aeruginosa (PCR) (Not Detect) Clarissa/B-Vanco Res Genes KPC-Carbap Res Gene PCR (Not Detect) 02/05/22 02/05/22 02/05/22 Range/Units 01:55 05:55 05:55 WBC 9.4 D (4.5-11.0) X10^3/uL RBC 4.12 (4.0-5.2) X10^6/uL Hgb 11.8 L (12.0-16.0) g/dL Hct 36.0 (36-46) % MCV 87.5 (80-100) fL MCH 28.7 (26-34) PG MCHC 32.8 (30-36) % RDW 18.3 H (11.6-14.8) % Plt Count 59 L (150-400) X10^3/uL Neut % (Auto) 91.5 H (50-75) % Lymph % (Auto) 2.3 L (25-40) % Livingston % (Auto) 6.1 (3-14) % Eos % (Auto) 0.1 L (2-4) % Baso % (Auto) 0.0 (0-2) % Neut # (Auto) 8600 H (4779-7174) /uL Lymph # (Auto) 200 L (3614-2861) /uL Livingston # (Auto) 600 (0-900) /uL Eos # (Auto) 0 (0-450) /uL Baso # (Auto) 0 (0-100) /uL PT (10.1-12.7) SECONDS INR (0.9-1.3) APTT (26.4-36.2) SECONDS D-Dimer (<230) ng/mL Sodium 136 L (137-145) mmol/L Potassium 4.7 (3.4-5.1) mmol/L Chloride 108 H (98-107) mmol/L Carbon Dioxide 21 L (22-32) mmol/L BUN 24 H (7-17) mg/dL Creatinine 1.24 H (0.52-1.04) mg/dL Estimated GFR 48 L (>60) mL/min BUN/Creatinine Ratio 19.4 (6-22) Glucose 179 H (80-110) mg/dL Lactate (0.7-2.1) mmol/L Calcium 8.1 L (8.4-10.2) mg/dL Magnesium (1.6-2.3) mg/dL Total Bilirubin 6.0 H (0.2-1.3) mg/dL AST 121 H (14-36) IU/L ALT 47 H (<35) IU/L Alkaline Phosphatase 196 H (38-126) U/L Total Creatine Kinase (30-135) U/L CK-MB (CK-2) CK-MB (CK-2) Rel Index Troponin I 0.061 H (0.01-0.034) ng/mL NT-Pro-B Natriuret Pep (<125) pg/mL Total Protein 7.7 (6.3-8.2) g/dL Albumin 3.4 L (3.5-5.0) g/dL Globulin 4.3 H (1.7-4.1) g/dL Albumin/Globulin Ratio 0.8 L (1.0-2.8) Lipase (23-300) U/L Procalcitonin (<0.5) ng/mL A. baumannii (PCR) (Not Detect) Katie albicans (PCR) (Not Detect) C. glabrata (PCR) (Not Detect) C. krusei (PCR) (Not Detect) C. parapsilosis (PCR) (Not Detect) C. tropicalis (PCR) (Not Detect) SARS-CoV-2 (PCR) (Negative) Enterobacteriac sp PCR (Not Detect) E. cloacae complex PCR (Not Detect) Enterococcus sp PCR (Not Detect) E. coli (PCR) (Not Detect) H. influenzae (PCR) (Not Detect) Klebsiella oxytoca PCR (Not Detect) Klebsiella pneumoniae (Not Detect) List. monocytogenes PCR (Not Detect) N. meningitidis (PCR) (Not Detect) Proteus species (PCR) (Not Detect) Serratia marcescens PCR (Not Detect) Staphylococcus sp PCR (Not Detect) Staph aureus (PCR) (Not Detect) mecA-Methicil Res Gene Streptococcus sp PCR (Not Detect) Group A Strep (PCR) (Not Detect) Strep agalactiae (PCR) (Not Detect) Strep pneumoniae (PCR) (Not Detect) P. aeruginosa (PCR) (Not Detect) Clarissa/B-Vanco Res Genes KPC-Carbap Res Gene PCR (Not Detect) 02/05/22 02/05/22 02/05/22 Range/Units 05:55 05:55 08:04 WBC (4.5-11.0) X10^3/uL RBC (4.0-5.2) X10^6/uL Hgb (12.0-16.0) g/dL Hct (36-46) % MCV (80-100) fL MCH (26-34) PG MCHC (30-36) % RDW (11.6-14.8) % Plt Count (150-400) X10^3/uL Neut % (Auto) (50-75) % Lymph % (Auto) (25-40) % Livingston % (Auto) (3-14) % Eos % (Auto) (2-4) % Baso % (Auto) (0-2) % Neut # (Auto) (3169-1372) /uL Lymph # (Auto) (1321-2427) /uL Livingston # (Auto) (0-900) /uL Eos # (Auto) (0-450) /uL Baso # (Auto) (0-100) /uL PT (10.1-12.7) SECONDS INR (0.9-1.3) APTT (26.4-36.2) SECONDS D-Dimer (<230) ng/mL Sodium (137-145) mmol/L Potassium (3.4-5.1) mmol/L Chloride (98-107) mmol/L Carbon Dioxide (22-32) mmol/L BUN (7-17) mg/dL Creatinine (0.52-1.04) mg/dL Estimated GFR (>60) mL/min BUN/Creatinine Ratio (6-22) Glucose (80-110) mg/dL Lactate (0.7-2.1) mmol/L Calcium (8.4-10.2) mg/dL Magnesium (1.6-2.3) mg/dL Total Bilirubin (0.2-1.3) mg/dL AST (14-36) IU/L ALT (<35) IU/L Alkaline Phosphatase (38-126) U/L Total Creatine Kinase (30-135) U/L CK-MB (CK-2) CK-MB (CK-2) Rel Index Troponin I 0.084 H (0.01-0.034) ng/mL NT-Pro-B Natriuret Pep 549 H (<125) pg/mL Total Protein (6.3-8.2) g/dL Albumin (3.5-5.0) g/dL Globulin (1.7-4.1) g/dL Albumin/Globulin Ratio (1.0-2.8) Lipase 81 D (23-300) U/L Procalcitonin (<0.5) ng/mL A. baumannii (PCR) (Not Detect) Katie albicans (PCR) (Not Detect) C. glabrata (PCR) (Not Detect) C. krusei (PCR) (Not Detect) C. parapsilosis (PCR) (Not Detect) C. tropicalis (PCR) (Not Detect) SARS-CoV-2 (PCR) (Negative) Enterobacteriac sp PCR (Not Detect) E. cloacae complex PCR (Not Detect) Enterococcus sp PCR (Not Detect) E. coli (PCR) (Not Detect) H. influenzae (PCR) (Not Detect) Klebsiella oxytoca PCR (Not Detect) Klebsiella pneumoniae (Not Detect) List. monocytogenes PCR (Not Detect) N. meningitidis (PCR) (Not Detect) Proteus species (PCR) (Not Detect) Serratia marcescens PCR (Not Detect) Staphylococcus sp PCR (Not Detect) Staph aureus (PCR) (Not Detect) mecA-Methicil Res Gene Streptococcus sp PCR (Not Detect) Group A Strep (PCR) (Not Detect) Strep agalactiae (PCR) (Not Detect) Strep pneumoniae (PCR) (Not Detect) P. aeruginosa (PCR) (Not Detect) Clarissa/B-Vanco Res Genes KPC-Carbap Res Gene PCR (Not Detect) 02/05/22 02/05/22 02/05/22 Range/Units 08:04 08:04 08:04 WBC (4.5-11.0) X10^3/uL RBC (4.0-5.2) X10^6/uL Hgb (12.0-16.0) g/dL Hct (36-46) % MCV (80-100) fL MCH (26-34) PG MCHC (30-36) % RDW (11.6-14.8) % Plt Count (150-400) X10^3/uL Neut % (Auto) (50-75) % Lymph % (Auto) (25-40) % Livingston % (Auto) (3-14) % Eos % (Auto) (2-4) % Baso % (Auto) (0-2) % Neut # (Auto) (9041-0680) /uL Lymph # (Auto) (2007-2737) /uL Livingston # (Auto) (0-900) /uL Eos # (Auto) (0-450) /uL Baso # (Auto) (0-100) /uL PT (10.1-12.7) SECONDS INR (0.9-1.3) APTT (26.4-36.2) SECONDS D-Dimer 894 H (<230) ng/mL Sodium (137-145) mmol/L Potassium (3.4-5.1) mmol/L Chloride (98-107) mmol/L Carbon Dioxide (22-32) mmol/L BUN (7-17) mg/dL Creatinine (0.52-1.04) mg/dL Estimated GFR (>60) mL/min BUN/Creatinine Ratio (6-22) Glucose (80-110) mg/dL Lactate 1.4 (0.7-2.1) mmol/L Calcium (8.4-10.2) mg/dL Magnesium (1.6-2.3) mg/dL Total Bilirubin (0.2-1.3) mg/dL AST (14-36) IU/L ALT (<35) IU/L Alkaline Phosphatase (38-126) U/L Total Creatine Kinase (30-135) U/L CK-MB (CK-2) CK-MB (CK-2) Rel Index Troponin I 0.081 H (0.01-0.034) ng/mL NT-Pro-B Natriuret Pep (<125) pg/mL Total Protein (6.3-8.2) g/dL Albumin (3.5-5.0) g/dL Globulin (1.7-4.1) g/dL Albumin/Globulin Ratio (1.0-2.8) Lipase (23-300) U/L Procalcitonin (<0.5) ng/mL A. baumannii (PCR) (Not Detect) Katie albicans (PCR) (Not Detect) C. glabrata (PCR) (Not Detect) C. krusei (PCR) (Not Detect) C. parapsilosis (PCR) (Not Detect) C. tropicalis (PCR) (Not Detect) SARS-CoV-2 (PCR) (Negative) Enterobacteriac sp PCR (Not Detect) E. cloacae complex PCR (Not Detect) Enterococcus sp PCR (Not Detect) E. coli (PCR) (Not Detect) H. influenzae (PCR) (Not Detect) Klebsiella oxytoca PCR (Not Detect) Klebsiella pneumoniae (Not Detect) List. monocytogenes PCR (Not Detect) N. meningitidis (PCR) (Not Detect) Proteus species (PCR) (Not Detect) Serratia marcescens PCR (Not Detect) Staphylococcus sp PCR (Not Detect) Staph aureus (PCR) (Not Detect) mecA-Methicil Res Gene Streptococcus sp PCR (Not Detect) Group A Strep (PCR) (Not Detect) Strep agalactiae (PCR) (Not Detect) Strep pneumoniae (PCR) (Not Detect) P. aeruginosa (PCR) (Not Detect) Clarissa/B-Vanco Res Genes KPC-Carbap Res Gene PCR (Not Detect) 02/05/22 Range/Units 08:04 WBC (4.5-11.0) X10^3/uL RBC (4.0-5.2) X10^6/uL Hgb (12.0-16.0) g/dL Hct (36-46) % MCV (80-100) fL MCH (26-34) PG MCHC (30-36) % RDW (11.6-14.8) % Plt Count (150-400) X10^3/uL Neut % (Auto) (50-75) % Lymph % (Auto) (25-40) % Livingston % (Auto) (3-14) % Eos % (Auto) (2-4) % Baso % (Auto) (0-2) % Neut # (Auto) (9446-2403) /uL Lymph # (Auto) (0881-1498) /uL Livingston # (Auto) (0-900) /uL Eos # (Auto) (0-450) /uL Baso # (Auto) (0-100) /uL PT (10.1-12.7) SECONDS INR (0.9-1.3) APTT 27 (26.4-36.2) SECONDS D-Dimer (<230) ng/mL Sodium (137-145) mmol/L Potassium (3.4-5.1) mmol/L Chloride (98-107) mmol/L Carbon Dioxide (22-32) mmol/L BUN (7-17) mg/dL Creatinine (0.52-1.04) mg/dL Estimated GFR (>60) mL/min BUN/Creatinine Ratio (6-22) Glucose (80-110) mg/dL Lactate (0.7-2.1) mmol/L Calcium (8.4-10.2) mg/dL Magnesium (1.6-2.3) mg/dL Total Bilirubin (0.2-1.3) mg/dL AST (14-36) IU/L ALT (<35) IU/L Alkaline Phosphatase (38-126) U/L Total Creatine Kinase (30-135) U/L CK-MB (CK-2) CK-MB (CK-2) Rel Index Troponin I (0.01-0.034) ng/mL NT-Pro-B Natriuret Pep (<125) pg/mL Total Protein (6.3-8.2) g/dL Albumin (3.5-5.0) g/dL Globulin (1.7-4.1) g/dL Albumin/Globulin Ratio (1.0-2.8) Lipase (23-300) U/L Procalcitonin (<0.5) ng/mL A. baumannii (PCR) (Not Detect) Katie albicans (PCR) (Not Detect) C. glabrata (PCR) (Not Detect) C. krusei (PCR) (Not Detect) C. parapsilosis (PCR) (Not Detect) C. tropicalis (PCR) (Not Detect) SARS-CoV-2 (PCR) (Negative) Enterobacteriac sp PCR (Not Detect) E. cloacae complex PCR (Not Detect) Enterococcus sp PCR (Not Detect) E. coli (PCR) (Not Detect) H. influenzae (PCR) (Not Detect) Klebsiella oxytoca PCR (Not Detect) Klebsiella pneumoniae (Not Detect) List. monocytogenes PCR (Not Detect) N. meningitidis (PCR) (Not Detect) Proteus species (PCR) (Not Detect) Serratia marcescens PCR (Not Detect) Staphylococcus sp PCR (Not Detect) Staph aureus (PCR) (Not Detect) mecA-Methicil Res Gene Streptococcus sp PCR (Not Detect) Group A Strep (PCR) (Not Detect) Strep agalactiae (PCR) (Not Detect) Strep pneumoniae (PCR) (Not Detect) P. aeruginosa (PCR) (Not Detect) Clarissa/B-Vanco Res Genes KPC-Carbap Res Gene PCR (Not Detect) Point of Care Testing Glucose POC 159 Imaging Data CX #2: Radiologist's Impression: Modesta KULDIP [id number] XRay Report Signed Patient: Marianela Valdez MR#: [id number] : 1955 Acct:[id number] Age/Sex: 66 / F Date of Service: 02/05/22 Loc: ED Accession Number: [id number] ?? Procedure: XR chest 1V Ordering Provider: Tamara Hernandez MD PROCEDURE:? XR CHEST 1V ? INDICATIONS:? respiratory distress ? TECHNIQUE:? One view of the chest was acquired.? ? COMPARISON:? [facility], , XR CHEST 1V, 02/04/2022, 14:32. ? FINDINGS:? ? Surgical changes and devices:? None.? ? Lungs and pleura:? Minimal diffuse interstitial prominence, unchanged.? This may be chronic in etiology.? Low lung volumes as before with streaky bibasilar opacities.? This is favored to represent atelectasis.? No new focal consolidations.? No substantial pleural effusion.? No pneumothorax. ? Mediastinum:? Mediastinal contours appear stable.? Heart size is normal.? ? Bones and chest wall:? No suspicious bony lesions.? Overlying soft tissues appear unremarkable.? ? IMPRESSION:? Minimal diffuse interstitial prominence, likely chronic.? Persistent low lung volumes with stable streaky bibasilar opacities favored to represent atelectasis.? No new acute airspace disease identified. ? ? Dictated by: Kelton Anaya M.D. on 02/05/2022 at 7:31 ? ? Approved by: Kelton Anaya M.D. on 02/05/2022 at 7:32 ? US - DVT: Radiologist's Impression: Marianela Valdez MR#: [id number] : 1955 Acct:[id number] Age/Sex: 66 / F Date of Service: 02/05/22 Loc: ED Accession Number: [id number] ?? Procedure: US periph venous low extrem bi Ordering Provider: Bea Victoria D.O. PROCEDURE:? US PERIPH VENOUS LOW EXTREM BI ? INDICATIONS:? elevated dimer ? TECHNIQUE:? Real-time imaging, as well as color and pulse Doppler interrogation, were performed of the deep veins of both legs from the inguinal ligament to the popliteal fossa.? ? COMPARISON:? None. ? FINDINGS:? ? Right: The common femoral, femoral and popliteal veins are normally compressible, and free of intraluminal thrombus.? Color and pulse Doppler demonstrate normal phasic intravascular flow.? There is normal augmentation response to distal compression maneuver.? ? Left: The common femoral, femoral and popliteal veins are normally compressible, and free of intraluminal thrombus.? Color and pulse Doppler demonstrate normal phasic intravascular flow.? There is normal augmentation response to distal compression maneuver.? ? ? IMPRESSION:? ? Negative for deep venous thrombosis involving either lower extremity. ? ? Dictated by: Brijesh Nance M.D. on 02/05/2022 at 9:53 ? ? ECG Data Interpretation: 14:22 Sinus tachycardia rate [address] elevation or depression. 21:56 Sinus tach at 1:03 a.m. Normal axis, normal intervals No significant change from EKG at 2:22 p.m. today [facility] EKG 3. Sinus rhythm rate [address] changes similar to prior EKG 4. Sinus rhythm rate [address] changes similar to prior MDM Narrative Medical decision making narrative: Dr Hernandez. Care is assumed. Patient is post stem cell transplant in the mid 90s with multiple complications with [id number] disease is followed at [facility] and presents with increasing midepigastric pain with CT scan, ultrasound and labs suggesting probable common duct stone. MRCP is needed and she will need hospital admission. MRI is not available this evening. Have spoken with the [facility], Dr Stewart general Medicine attending. Patient is felt to be appropriate for transfer to the [facility] however beds are not currently available. Concurrent with this discussion, patient has become hypotensive increasingly tachycardic with increased respiratory rate. Fluid resuscitation is initiated. She had been initially given ceftriaxone and now with the decreasing blood pressure will will change that to cefepime and Flagyl. If she continues to worsen will contact the [facility] with request for ICU bed rather than general floor care. Plan is begin to work on bed availability and transfer anticipated tomorrow with continued care in resuscitation in the ER here this evening 815pm patient is re-examined. She is responding to fluid bolus however also complaining of increased dyspnea. EKG and troponin on arrival at 2:30 a.m. this afternoon were unremarkable. Will repeat troponin. Explained to her findings, concerns and plan. Questions answered. 10:26. EKG shows no significant change. Troponin has increase from .014 to .050. Pt took 4 baby asa when she called 911 earlier today. Still c/o headache, but dyspnea mildly improved. Nice response to fluid challenge with blood pressure 116/72 currently 225 continued headache. IV narcotics have been briefly useful. Also requesting sleep aid. Medication options are somewhat limited. Benadryl has worked well for her with both issues. Will try this. Waiting for next trop. Dyspnea improved and BP remains stable at 132/62 6:09 Dr Jayla Martin, med attending. Accepts admit, agrees on review this am, noted bump in trop and stabalizing pressures, floor care would be appropriate. Will call with bed availablity. Morning labs pending 7am increasing CP. No change with repeat EKG. Trops continue to trend up. Labs with increased bili/ast/alt/alkphos. Bed is available at [facility] with transport to arrive at 845. Pt currently in MRI 8am (Esme) Patient signed out to me by Dr. Johnston I have seen evaluated patient myself. Attempted to get an MRCP however patient was unable to lie flat. She required 6 L of nasal cannula. When she returned she was awake alert talking lungs are clear mild conversational dyspnea. Repeat chest x-ray continues to show low low lung volumes. 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 She does have some ongoing shortness of breath but she says this is significantly worse. She has a repeat EKG which does not show any changes. She has a slowly rising troponin which is not yet technically positive. BNP D-dimer are pending. Patient again has a difficult time lying flat. Attempted BiPAP to help with of dyspnea however she did not tolerate and got quite anxious. Attempting high-flow nasal cannula. She is not have any chest pain. BNP is in the 500s after only 2 L. It is higher than her normal. D-dimer is elevated at 800 it was previously 700 in 2020. Symptoms not very consistent with PE although should be considered. She is currently on heparin drip. Troponin has actually started rising down. She has no chest pain no changes in her EKGs. Patient is on high-flow nasal cannula however she is only at 30% and actually tolerates nasal cannula at 1-2 L as long as she sitting upright. Patient cannot lie flat. Patient has an accepting physician and bed at [facility]. This time she does not need a higher level of care. She is currently talking on her cell phone to her friend about her belongings and what she will need [place]. She actually is trending back down to a nasal cannula. And appears comfortable. Unfortunately went look like patient needed a higher level of care the floor bed was given away. Transport arrived transport was not sent to wake his floor bed no longer available. Need to restart process on accepting patient again. 10am- Dr. Ruvalcaba at updated reaccepts patient. Awaiting for bed./ Patient is accepted. <Tamara Hernandez MD - Last Filed: 02/05/22 07:36> Critical Care Time Critical Care Time: Yes Total Critical Care Time: 97 Attestation: Critical care time is separate from other billable procedures. There is a high probability of a significant, sudden or life-threatening deterioration that requires my full and direct attention, intervention and personal management. This critical care time includes consultation with family and other consulting doctors, review of records, and interpretation of data from labs, EKGs and imaging as well as managements of sepsis, common bile duct occlusion, ongoing chest pain, extended your stay with continued care due to bed availability and capacity issues Discharge Plan Departure Patient Disposition: [facility] Clinical Impression: Common bile duct dilatation, Acute hypotension, Graft vs host disease, Elevated troponin Prescriptions: No Action hydroxyzine pamoate 25 mg capsule 25 mg PO BID PRN (Reason: anxiety) Qty: 20 1RF rifaximin 550 mg tablet 550 mg PO BID 30 Days Qty: 60 Label Comments: takes at noon and midnight levothyroxine 50 mcg Tablet 25 mcg PO DAILY Qty: 0 Label Comments: take at about noon cinacalcet [Sensipar] 30 MG tablet 30 mg PO DAILY Qty: 0 Label Comments: takes at about midnight aspirin 81 mg tablet,delayed release (DR/EC) 81 mg PO DAILY Label Comments: takes at about noon metoprolol succinate 25 mg tablet extended release 24 hr 25 mg PO DAILY Label Comments: take at about noon nitroglycerin 0.4 mg tablet, sublingual 0.4 mg SL PRN PRN (Reason: chest pain) Label Comments: has never taken Rx Instructions: one tab Q5 minutes, call 911 if pain persists (up to three tablets). insulin aspart U-100 100 unit/mL (3 mL) insulin pen 50 unit SUBCUT TID Label Comments: per updated med list from 07/12/19 - Adrian Martin MD d/c instructions Humulin R U-500 (Conc) Kwikpen 500 unit/mL (3 mL) insulin pen 50 unit subcut TID desvenlafaxine 100 mg tablet extended release 24 hr 100 mg PO DAILY Qty: 90 0RF Label Comments: takes at about noon spironolactone 50 mg tablet 50 mg PO DAILY Label Comments: Take ONE tablet (50 mg total) by mouth daily, at midnight. atorvastatin 80 mg tablet 80 mg PO DAILY Label Comments: take at about midnight Humalog KwikPen Insulin 200 unit/mL (3 mL) insulin pen 50 unit SUBCUT DAILY Skyrizi 150 mg/mL syringe 150 mg SUBCUT Q4W cholecalciferol (vitamin D3) 25 mcg (1,000 unit) tablet 25 mcg PO DAILY Label Comments: takes at about noon olopatadine 0.1 % drops 1 drp EYE-BOTH BID Label Comments: Instill 1 drop in the both eyes twice daily (DME) pen needle, diabetic [BD Ultra-Fine Mini Pen Needle] 31 gauge x 3/16 needle See Rx Instructions .ROUTE .MEDSUPPLY Qty: 50 Rx Instructions: As directed furosemide 20 mg tablet 20 mg PO DAILY (DME) NovoFine Plus 32 gauge x 1/6 needle See Rx Instructions .ROUTE .MEDSUPPLY Qty: 100 Label Comments: USE UP TO 6 TIMES A DAY TO INJECT INSULIN Rx Instructions: As directed Referrals: Timur Schwartz MD [Primary Care Provider] -
--- NOTE | 2022-02-04 15:31 | DI.US.S_ITS ---
PROCEDURE: US ABDOMEN LIMITED INDICATIONS: RUQ/EPIGASTRIC PAIN TECHNIQUE: Real-time scanning was performed of the abdominal and retroperitoneal organs, with image documentation. COMPARISON: [facility], US, US ABDOMEN COMPLETE, 12/09/2019, 16:33. FINDINGS: Liver: Coarse echotexture consistent with hepatic cirrhosis Gallbladder: Biliary sludge in calculi present. Gallbladder is distended 5.3 cm. No gallbladder wall thickening, pericholecystic fluid or Carmichael sign. Common Bile Duct: 8.9 mm. Pancreas: Unremarkable as visualized IMPRESSION: 1. Gallbladder distention and cholelithiasis without ultrasound evidence of acute cholecystitis. 2. Prominent CBD 8.9 mm. Consider follow-up MRCP to evaluate for distal choledocholithiasis Approved by: Paddy Thomas M.D. on 02/04/2022 at 16:54
[2022-02-04] MEDS: ALPRAZolam 0.25 MG TABLET PO (15:33)
[2022-02-04] MEDS: SODIUM CHLORIDE 0.9% 500 ML 1000 ML IV (15:33)
[2022-02-04] MEDS: cefTRIAXone 2,000 MG in SODIUM CHLORIDE 0.9% 100 ML 200 MG IV (18:40)
[2022-02-04] MEDS: SODIUM CHLORIDE 0.9% 1,000 ML 1000 ML IV (19:20)
[2022-02-04 19:43] LABS: COVID19 -Nasal RAPID Negative (Negative)
[2022-02-04] MEDS: CEFEPIME 2 GM in SODIUM CHLORIDE 0.9% 100 ML IV (20:06)
[2022-02-04] MEDS: HYDROCORTISONE 100 MG/2 ML VIAL IV (20:06)
[2022-02-04] MEDS: SODIUM CHLORIDE 0.9% 1,000 ML 150 ML IV (20:32)
[2022-02-04] MEDS: fentaNYL 100 MCG/2 ML INJ 50 MCG IV ×2 (20:32→22:54)
[2022-02-04 20:43] LABS: Lactate (Lactic Acid) 1.8 mmol/L (0.7-2.1)
[2022-02-04] MEDS: metroNIDAZOLE 500 MG/100 ML PIGGYBACK 100 MG IV (21:07)
--- NOTE | 2022-02-04 23:03 | PC.NURSE ---
Stretcher switched out for hospital bed. Pt provided vegetable broth and ice water. Pt has glucose monitor on her arm and reading is 203.
[2022-02-04 23:31] LABS: Troponin I 0.058 ng/mL (0.01-0.034)
[2022-02-05] VITALS (34 sets, daily range): BP systolic 103–148; BP diastolic 52–83; PULSE 79–95; RESP 18–33; TEMP 36.6; O2SAT 95–100
[2022-02-05] MEDS: INSULIN LISPRO 100 UNIT/ML 3ML VIAL 25 UNIT SUBCUT (00:51)
[2022-02-05] MEDS: RIFAXIMIN 550 MG TABLET PO ×2 (02:16→09:03)
[2022-02-05 02:20] LABS: Troponin I 0.061 ng/mL (0.01-0.034)
[2022-02-05] MEDS: diphenhydrAMINE 50 MG/ML VIAL IV (02:31)
[2022-02-05] MEDS: metroNIDAZOLE 500 MG/100 ML PIGGYBACK 100 MG IV ×2 (03:21→11:52)
[2022-02-05] MEDS: SODIUM CHLORIDE 0.9% 1,000 ML 150 ML IV ×2 (03:21→11:45)
[2022-02-05 06:09] LABS: Add Manual Diff / Slide Review NO; Basophils Absolute Auto 0 /uL (0-100); Eosinophils Absolute Auto 0 /uL (0-450); Eosinophils Percent Auto 0.1 % (2-4); Hemoglobin 11.8 g/dL (12.0-16.0); Lymphocytes Absolute Auto 200 /uL (1100-4500); Lymphocytes Percent Auto 2.3 % (25-40); Mean Corpuscular HGB Conc 32.8 % (30-36); Mean Corpuscular Hemoglobin 28.7 PG (26-34); Mean Corpuscular Volume 87.5 fL (80-100); Monocytes Absolute Auto 600 /uL (0-900); Monocytes Percent Auto 6.1 % (3-14); Neutrophils Absolute Auto 8600 /uL (1500-7000); Neutrophils Percent Auto 91.5 % (50-75); Platelet Count 59 X10^3/uL (150-400); Red Blood Cell Count 4.12 X10^6/uL (4.0-5.2); Red Cell Distribution Width 18.3 % (11.6-14.8); White Blood Cell Count 9.4 X10^3/uL (4.5-11.0)
[2022-02-05 06:24] LABS: Alanine Aminotransferase 47 IU/L (<35); Albumin 3.4 g/dL (3.5-5.0); Albumin Globulin Ratio 0.8 (1.0-2.8); Alkaline Phosphatase 196 U/L (38-126); Aspartate Aminotransferase 121 IU/L (14-36); BUN Creatinine Ratio 19.4 (6-22); Blood Urea Nitrogen 24 mg/dL (7-17); Calcium 8.1 mg/dL (8.4-10.2); Carbon Dioxide 21 mmol/L (22-32); Chloride 108 mmol/L (98-107); Estimated Glomerular Filt Rate 48 mL/min (>60); Globulin 4.3 g/dL (1.7-4.1); Glucose 179 mg/dL (80-110); HEMOLYSIS < 15 (0-50); Potassium 4.7 mmol/L (3.4-5.1); Sodium 136 mmol/L (137-145); Total Protein 7.7 g/dL (6.3-8.2)
[2022-02-05 06:35] LABS: Troponin I 0.084 ng/mL (0.01-0.034)
[2022-02-05 07:08] LABS: Acinetobacter baumannii Not Detected (Not Detect); Enterobacteriaceae species Detected (Not Detect); Enterococcus species Not Detected (Not Detect); KPC (carbapenem-resist gene) Not Detected (Not Detect); Listeria monocytogenes Not Detected (Not Detect); Staphylococcus species Not Detected (Not Detect); Streptococcus agalactiae (Gr B Not Detected (Not Detect); Streptococcus pneumonia Not Detected (Not Detect); Streptococcus pyogenes (Gr A) Not Detected (Not Detect); Streptococcus species Not Detected (Not Detect)
[2022-02-05 07:09] LABS: Candida albicans Not Detected (Not Detect); Candida glabrata Not Detected (Not Detect); Candida krusei Not Detected (Not Detect); Candida parapsilosis Not Detected (Not Detect); Candida tropicalis Not Detected (Not Detect); E. coli Detected (Not Detect); Enterobacter cloacae complex Not Detected (Not Detect); Haemophilus influenzae Not Detected (Not Detect); Neisseria meningitidis Not Detected (Not Detect); Proteus species Not Detected (Not Detect); Pseudomonas aeruginosa Not Detected (Not Detect); Serratia marcescens Not Detected (Not Detect)
--- NOTE | 2022-02-05 07:16 | DI.RAD.S_ITS ---
PROCEDURE: XR CHEST 1V INDICATIONS: respiratory distress TECHNIQUE: One view of the chest was acquired. COMPARISON: [facility], CR, XR CHEST 1V, 02/04/2022, 14:32. FINDINGS: Surgical changes and devices: None. Lungs and pleura: Minimal diffuse interstitial prominence, unchanged. This may be chronic in etiology. Low lung volumes as before with streaky bibasilar opacities. This is favored to represent atelectasis. No new focal consolidations. No substantial pleural effusion. No pneumothorax. Mediastinum: Mediastinal contours appear stable. Heart size is normal. Bones and chest wall: No suspicious bony lesions. Overlying soft tissues appear unremarkable. IMPRESSION: Minimal diffuse interstitial prominence, likely chronic. Persistent low lung volumes with stable streaky bibasilar opacities favored to represent atelectasis. No new acute airspace disease identified. Dictated by: Kelton Anaya M.D. on 02/05/2022 at 7:31 Approved by: Kelton Anaya M.D. on 02/05/2022 at 7:32
[2022-02-05 07:44] LABS: Lipase 81 U/L (23-300)
[2022-02-05] MEDS: HEPARIN 5,000 UNIT/ML VIAL 4000 UNIT IV (08:03)
[2022-02-05] MEDS: HEPARIN DRIP 25,000 UNIT/500 ML IV.SOLN 17.962 UNIT IV (08:04)
[2022-02-05 08:27] LABS: PTT Partial Thromboplastin Tim 27 SECONDS (26.4-36.2)
[2022-02-05 08:29] LABS: Lactate (Lactic Acid) 1.4 mmol/L (0.7-2.1)
--- NOTE | 2022-02-05 08:33 | RT ---
Patient was put on heated high flow nasal cannula secondary to falling saturations when laying down. Patient was originally put on bipap but did not tolerate. requested the high flow instead. Patient is tolerating cannula well and no complaints at this time. Patient is on 40L/30%
[2022-02-05 08:39] LABS: NT-proBNP (BNP-Adult 18+) 549 pg/mL (<125)
[2022-02-05 08:42] LABS: Troponin I 0.081 ng/mL (0.01-0.034)
[2022-02-05 08:44] LABS: D Dimer 894 ng/mL (<230)
[2022-02-05] MEDS: CEFEPIME 2 GM in SODIUM CHLORIDE 0.9% 100 ML IV (08:48)
--- NOTE | 2022-02-05 09:28 | DI.US.S_ITS ---
PROCEDURE: US PERIPH VENOUS LOW EXTREM BI INDICATIONS: elevated dimer TECHNIQUE: Real-time imaging, as well as color and pulse Doppler interrogation, were performed of the deep veins of both legs from the inguinal ligament to the popliteal fossa. COMPARISON: None. FINDINGS: Right: The common femoral, femoral and popliteal veins are normally compressible, and free of intraluminal thrombus. Color and pulse Doppler demonstrate normal phasic intravascular flow. There is normal augmentation response to distal compression maneuver. Left: The common femoral, femoral and popliteal veins are normally compressible, and free of intraluminal thrombus. Color and pulse Doppler demonstrate normal phasic intravascular flow. There is normal augmentation response to distal compression maneuver. IMPRESSION: Negative for deep venous thrombosis involving either lower extremity. Dictated by: Brijesh Nance M.D. on 02/05/2022 at 9:53 Approved by: Brijesh Nance M.D. on 02/05/2022 at 9:53
[2022-02-05] MEDS: fentaNYL 100 MCG/2 ML INJ 50 MCG IV ×2 (10:05→13:01)
--- NOTE | 2022-02-05 11:01 | PC.NURSE ---
states she still has chest pain and headache after her fentanyl.
--- NOTE | 2022-02-05 11:02 | PC.NURSE ---
Accepted [facility] arrive at 1500. Floor [phone] NWA ETA 1300 Can arrive at at [address] Dr. Flores accepting and Vania is the contact at transfer center.
--- NOTE | 2022-02-05 12:42 | PC.NURSE ---
Pt provided black coffee and ice water per request.
--- NOTE | 2022-02-05 13:17 | PC.NURSE ---
pt tolerating 1 liter nasal cannula. sats greater than 95 percent.
--- NOTE | 2022-02-05 15:01 | PC.NURSE ---
report to TAMMIE Muro [phone].
== END 2022-02-05 13:30 | disposition short-term general hospital (02) ==
PROVIDERS: Emergency Medicine; Emergency Provider Emergency Medicine; Family Provider Internal Medicine; PCP Internal Medicine
DX: K83.8 Other specified diseases of biliary tract (principal); I95.9 Hypotension, unspecified; D89.813 Graft-versus-host disease, unspecified; R77.8 Other specified abnormalities of plasma proteins; R10.11 Right upper quadrant pain; R07.9 Chest pain, unspecified; R11.0 Nausea; R00.0 Tachycardia, unspecified; Z20.822 Contact with and (suspected) exposure to COVID-19
CPT/HCPCS: 36415; 71045; 74177; 76705; 80053; 82550; 82962; 83605; 83690; 83735; 83880; 84145; 84484; 85025; 85379; 85610; 85730; 87040; 87150; 87186; 87635; 93005; 93010; 93970; 96361; 96365; 96366; 96367; 96368; 96372; 96375; 96376; 99284; 99291; 99292; C9803; J0692; J0696; J1200; J1644; J1720; J1815; J3010; Q9967

== ENCOUNTER → 2022-02-15 17:16 | Outpatient (CLI) | payer MEDICARE, MEDICAID, SELFPAY ==
[2021-09-22 13:39] VITALS: BMI 24.4
[2022-02-15 17:35] LABS: Hematocrit 38.5 % (36-46); Hemoglobin 12.6 g/dL (12.0-16.0); Mean Corpuscular HGB Conc 32.8 % (30-36); Mean Corpuscular Volume 85.5 fL (80-100); Platelet Count 98 X10^3/uL (150-400); Red Cell Distribution Width 18.4 % (11.6-14.8); White Blood Cell Count 4.9 X10^3/uL (4.5-11.0)
[2022-02-15 17:47] LABS: Alanine Aminotransferase 23 IU/L (<35); Albumin 3.7 g/dL (3.5-5.0); Albumin Globulin Ratio 0.8 (1.0-2.8); Alkaline Phosphatase 240 U/L (38-126); Ammonia (NH3) < 9 umol/L (9-30); Aspartate Aminotransferase 72 IU/L (14-36); BUN Creatinine Ratio 14.7 (6-22); Bilirubin Total 1.4 mg/dL (0.2-1.3); Blood Urea Nitrogen 20 mg/dL (7-17); Calcium 9.1 mg/dL (8.4-10.2); Carbon Dioxide 30 mmol/L (22-32); Chloride 100 mmol/L (98-107); Estimated Glomerular Filt Rate 43 mL/min (>60); Globulin 4.6 g/dL (1.7-4.1); Glucose 181 mg/dL (80-110); HEMOLYSIS < 15 (0-50); Lipase 221 U/L (23-300); Potassium 3.8 mmol/L (3.4-5.1); Sodium 136 mmol/L (137-145); Total Protein 8.3 g/dL (6.3-8.2)
== END ==
PROVIDERS: Family Provider Internal Medicine; PCP Internal Medicine; Referring Provider Internal Medicine; Visit Provider Internal Medicine
DX: K80.50 Calculus of bile duct without cholangitis or cholecystitis without obstruction (principal); K85.10 Biliary acute pancreatitis without necrosis or infection; G93.49 Other encephalopathy; D89.813 Graft-versus-host disease, unspecified; K74.60 Unspecified cirrhosis of liver
CPT/HCPCS: 36415; 80053; 82140; 83690; 85027

== ENCOUNTER → 2022-03-01 13:16 | Outpatient (CLI) | payer MEDICARE, MEDICAID, SELFPAY ==
[2021-09-22 13:39] VITALS: BMI 24.4
== END ==
PROVIDERS: Family Provider Internal Medicine; PCP Internal Medicine; Referring Provider Internal Medicine; Visit Provider Family Medicine
DX: L89.151 Pressure ulcer of sacral region, stage 1 (principal); E11.628 Type 2 diabetes mellitus with other skin complications; D89.813 Graft-versus-host disease, unspecified; E46 Unspecified protein-calorie malnutrition; Z79.899 Other long term (current) drug therapy; Z74.09 Other reduced mobility; Z79.4 Long term (current) use of insulin
CPT/HCPCS: 99203; 99213

== ENCOUNTER 2022-04-01 11:26 | Emergency (ER) | payer MEDICARE, MEDICAID, SELFPAY ==
[2021-09-22 13:39] VITALS: BMI 24.4
[2022-04-01] VITALS (24 sets, daily range): BP systolic 149–172; BP diastolic 68–86; PULSE 79–93; RESP 19–28; TEMP 37; O2SAT 94–100; BMI 26.4
--- NOTE | 2022-04-01 11:49 | DI.RAD.S_ITS ---
PROCEDURE: XR CHEST 1V INDICATIONS: chest pain TECHNIQUE: One view of the chest was acquired. COMPARISON: [facility], CR, XR CHEST 1V, 02/05/2022, 7:13. FINDINGS: Surgical changes and devices: None. Lungs and pleura: Mildly low lung volumes bilaterally. Horizontal opacity at the left lung base is most likely atelectasis. No pleural effusions or pneumothorax. Mediastinum: Mediastinal contours appear normal. Heart size is normal. Bones and chest wall: No suspicious bony lesions. Overlying soft tissues appear unremarkable. IMPRESSION: Mildly low lung volumes with basilar atelectasis. No acute consolidation. Dictated by: Dillon Dee M.D. on 04/01/2022 at 11:37 Approved by: Dillon Dee M.D. on 04/01/2022 at 11:40
[2022-04-01 12:12] LABS: Add Manual Diff / Slide Review NO; Basophils Absolute Auto 0 /uL (0-100); Basophils Percent Auto 1.2 % (0-2); Eosinophils Absolute Auto 100 /uL (0-450); Eosinophils Percent Auto 4.1 % (2-4); Hematocrit 35.7 % (36-46); Hemoglobin 11.4 g/dL (12.0-16.0); Lymphocytes Absolute Auto 300 /uL (1100-4500); Lymphocytes Percent Auto 8.9 % (25-40); Mean Corpuscular Hemoglobin 27.5 PG (26-34); Mean Corpuscular Volume 86.1 fL (80-100); Monocytes Absolute Auto 400 /uL (0-900); Monocytes Percent Auto 12.4 % (3-14); Neutrophils Absolute Auto 2500 /uL (1500-7000); Neutrophils Percent Auto 73.4 % (50-75); Platelet Count 71 X10^3/uL (150-400); Red Blood Cell Count 4.15 X10^6/uL (4.0-5.2); Red Cell Distribution Width 17.3 % (11.6-14.8); White Blood Cell Count 3.4 X10^3/uL (4.5-11.0)
[2022-04-01 12:27] LABS: COVID19 -Nasal RAPID Negative (Negative)
[2022-04-01 12:33] LABS: Alanine Aminotransferase 19 IU/L (<35); Albumin 3.6 g/dL (3.5-5.0); Albumin Globulin Ratio 0.7 (1.0-2.8); Alkaline Phosphatase 232 U/L (38-126); Aspartate Aminotransferase 71 IU/L (14-36); BUN Creatinine Ratio 20.3 (6-22); Bilirubin Total 1.5 mg/dL (0.2-1.3); Blood Urea Nitrogen 15 mg/dL (7-17); Carbon Dioxide 27 mmol/L (22-32); Chloride 103 mmol/L (98-107); Creatine Kinase 38 U/L (30-135); Estimated Glomerular Filt Rate > 60 mL/min (>60); Glucose 272 mg/dL (80-110); HEMOLYSIS < 15 (0-50); Lipase 181 U/L (23-300); Magnesium 1.7 mg/dL (1.6-2.3); Potassium 4.1 mmol/L (3.4-5.1); Sodium 139 mmol/L (137-145); Total Protein 8.6 g/dL (6.3-8.2)
[2022-04-01 12:45] LABS: Troponin I 0.022 ng/mL (0.01-0.034)
--- NOTE | 2022-04-01 13:24 | DI.CT.S_ITS ---
PROCEDURE: CT HEAD/BRAIN WO CON INDICATIONS: fall, hit head on thinners TECHNIQUE: Noncontrast 4.5 mm thick angled axial sections acquired from the foramen magnum to the vertex, with coronal and sagittal reformats. For radiation dose reduction, the following was used: automated exposure control, adjustment of mA and/or kV according to patient size. COMPARISON: [facility], CT, CT HEAD/BRAIN WO CON, 07/12/2021, 23:44. FINDINGS: Image quality: Excellent. CSF spaces: Basal cisterns are patent. The ventricles are symmetric in size and shape. Hyperdense blood products are seen in the anterior right frontal convexity and along the anterior right parafalcine region. Blood products measure up to 5 mm in maximum thickness. Brain: No intraparenchymal hemorrhage is seen. No significant mass effect. There is cerebral volume loss for age, with resultant ventricular and sulcal prominence. There are periventricular and deep white matter chronic small vessel ischemic changes. There is intracranial internal carotid artery atherosclerosis. Skull and face: Calvarium and visualized facial bones appear intact, without suspicious lesions. Sinuses: Visualized sinuses and mastoids are clear. IMPRESSION: Small hyperdense subdural hematoma along the anterior inferior right frontal convexity and right parafalcine region. No significant mass effect or midline shift. No intraparenchymal hemorrhage. Findings were discussed with the referring physician, Dr. Simon, by telephone on 04/01/2022 at 1:30 PM ([place] time). Dictated by: Dillon Dee M.D. on 04/01/2022 at 13:23 Approved by: Dillon Dee M.D. on 04/01/2022 at 13:31
--- NOTE | 2022-04-01 13:25 | ED_ITS ---
HPI - Dizziness <Emily Simon DO - Last Filed: 04/02/22 20:53> General Chief Complaint: Dizziness Stated Complaint: Dizzy, fall 4 days ago, headache- ref by gut dropper Time Seen by Provider: 04/01/22 13:22 Source: patient Mode of arrival: Wheelchair Limitations: no limitations History of Present Illness HPI Narrative: This is a 66-year-old female with complex medical history of diabetes, cirr hosis, renal disease had bone marrow transplant for AML in 1993 and was recently hospitalized at a month and a half ago for stone in the bile duct and had ERCP and reported bacteremia and was hospitalized for 5 days who comes with complaint of fall 4 days ago patient states she was bent over looking for papers when she went to move she lost her balance and fell backwards striking the back of her head. She is felt different little confused weaker in dizzy with some stumbling since then she is had a persistent headache she is felt hot and cold intermittently and sometimes shaky. She denies neck or back pain, no chest pain or pressure. No new shortness of breath. Patient states no nausea or vomiting, no issues with bowel movements, no issues with urination no numbness or tingling in her extremities. No weakness in her arms but her legs have felt weaker. She has not had any pain radiating down her legs. Patient states she has had some longstanding weakness in her extremities she is been weaker intermittently, stumbling occasionally she is had voice changes and knocked things down she is following with [facility] through Neurology for workup. She presents today because her symptoms have been persisting although she notes many of her symptoms were present even before her fall. Patient does note she has not been taking her medications regularly, she notes she is been taking Tylenol and Advil more frequently than normal patient states she did have a dental e xtraction 1-2 weeks ago for an infected tooth which she has finished antibiotics. She denies tobacco, alcohol or illicit. She has allergies to multiple narcotics but tolerates fentanyl and Versed, patient also states she has anaphylaxis to a filter that is used when giving blood. Her primary care is Dr. Schwartz the majority of her subspecialty care is through [facility] Related Data Home Medications Medication Instructions Recorded Confirmed levothyroxine 50 mcg tablet 25 mcg PO DAILY ##0 07/17/11 02/15/22 cinacalcet 30 mg tablet (Sensipar) 30 mg PO DAILY ##0 12/16/16 02/15/22 rifaximin 550 mg tablet 550 mg PO BID 30 days #60 tabs 06/25/18 02/15/22 aspirin 81 mg tablet,delayed 81 mg PO DAILY 08/12/19 02/15/22 release insulin aspart U-100 100 unit/mL 50 unit SUBCUT TID 08/12/19 02/15/22 (3 mL) subcutaneous pen metoprolol succinate 25 mg 25 mg PO DAILY 08/12/19 02/15/22 tablet,extended release 24 hr nitroglycerin 0.4 mg sublingual 0.4 mg sublingual PRN PRN chest 08/12/1902/15 tablet pain insulin regular hum U-500 conc 500 50 unit SUBCUT TID 01/20/20 02/15/22 unit/mL(3 mL) subcut pen (Humulin R U-500 (Conc) Insulin Kwikpen) atorvastatin 80 mg tablet 80 mg PO DAILY 11/06/21 02/15/22 cholecalciferol (vitamin D3) 25 25 mcg PO DAILY 11/06/21 02/15/22 mcg (1,000 unit) tablet insulin lispro 200 unit/mL (3 mL) 50 unit SUBCUT DAILY 11/06/21 02/15/22 subcutaneous pen (Humalog KwikPen U-200 Insulin) olopatadine 0.1 % eye drops 1 drp EYE-BOTH BID 11/06/21 02/15/22 risankizumab-rzaa 150 mg/mL 150 mg SUBCUT Q4W 11/06/21 02/15/22 subcutaneous syringe (Micheal) spironolactone 50 mg tablet 50 mg PO DAILY 11/06/21 02/15/22 furosemide 20 mg tablet 20 mg PO DAILY 02/15/22 02/15/22 pen needle, diabetic 31 gauge x #50 ea 02/15/22 02/15/22/16 (BD Ultra-Fine Mini Pen Needle) pen needle, diabetic 32 gauge x #100 ea 02/15/22 02/15/22 1/6 (NovoFine Plus) Previous Rx's Medication Instructions Recorded hydroxyzine pamoate 25 mg capsule 25 mg PO BID PRN anxiety #20 caps 07/11/21 desvenlafaxine 100 mg 100 mg PO DAILY #90 tabs 12/28/21 tablet,extended release 24 hr Allergies Allergy/AdvReac Type Severity Reaction Status Date / Time hydrocodone Allergy ITCHING Verified 02/15/22 12:07 oxycodone Allergy ITCHING Verified 02/15/22 12:07 propofol AdvReac Unknown Verified 02/15/22 12:07 morphine AdvReac Vomiting Verified 02/15/22 12:07 Review of Systems <Emily Simon DO - Last Filed: 04/02/22 20:53> Review of Systems ROS Unobtainable: All systems reviewed & are unremarkable except as noted in HPI and below Patient History <Emily Simon DO - Last Filed: 04/02/22 20:53> Medical History Acquired hypothyroidism AML (acute myeloid leukemia) in remission Chronic kidney disease, stage 3a Cirrhosis Coronary artery disease Decubitus ulcer of coccyx Depression Gallstone pancreatitis Generalized anxiety disorder Generalized anxiety disorder GVHD (graft versus host disease) Hepatic encephalopathy History of ST elevation myocardial infarction (STEMI) History of upper gastrointestinal bleeding Hyperparathyroidism, secondary renal Insulin dependent diabetes mellitus Mixed hyperlipidemia Obsessive compulsive disorder Psoriasis Restrictive lung disease Scleroderma Thrombocytopenia Surgical History History of bone marrow transplant History of colonoscopy History of coronary artery stent placement Family History Father Heart disease S/P CABG x 4 Hypertension Mother Gallstones Brother No significant medical problems Sister Diabetes mellitus Social History marital status: unknown household members: none Smoking Status: Never smoker alcohol intake: former substance use type: does not use Smoking Status: Never smoker alcohol intake frequency: 0-2 drinks per day Substance Use Type: does not use Exam <Emily Simon DO - Last Filed: 04/02/22 20:53> Narrative Exam Narrative: GEN: Thin female, alert and oriented x 3, patient appears to be in mild distress. HEENT: Atraumatic, pupils are equal round reactive to light, extraocular movements are intact, nares are clear, TMs are clear with no fluid, there is no conjunctival pallor. Throat is clear without any exudates, erythema, tonsillar enlargement or uvular deviation, no facial droop. HEART: Regular rate and rhythm without murmur, clicks, rubs. pulses are equal in upper and lower extremities LUNGS:Lungs clear to auscultation, no wheezes, rales, crackles, chest moves symmetrically ABD:bowel sounds normal, soft, non-tender, no guarding, rebound, rigidity, no masses noted, no hepatosplenomegaly :No CVA tenderness BACK: No cervical, thoracic or lumbar vertebral point tenderness. Patient has decreased range of motion. Patient's gait is [antalgic/normal]. Muscle strength is 5/5 in upper and lower extremities, sensation intact in all 4 extremities. MSCL: Non-tender, no muscle atrophy, muscles strength 5/5 upper and lower extremities, full range of motion, normal gait NEURO:CN 2-12 intact, sensation normal Initial Vital Signs Initial Vital Signs: Vital Signs Temperature 98.6 F 04/01/22 11:44 Pulse Rate 93 H 04/01/22 11:44 Respiratory Rate 20 04/01/22 11:44 Blood Pressure 151/68 H 04/01/22 11:44 Pulse Oximetry 96 04/01/22 11:44 Oxygen Delivery Method 04/01/22 11:44 <Andrew Ramos DO - Last Filed: 04/01/22 21:49> Initial Vital Signs Initial Vital Signs: Vital Signs Temperature 98.6 F 04/01/22 11:44 Pulse Rate 93 H 04/01/22 11:44 Respiratory Rate 20 04/01/22 11:44 Blood Pressure 151/68 H 04/01/22 11:44 Pulse Oximetry 96 04/01/22 11:44 Oxygen Delivery Method 04/01/22 11:44 Scores <Emily Simon DO - Last Filed: 04/02/22 20:53> GCS Aneudy coma scale eye opening: Spontaneous Aneudy coma scale verbal response: Orientated [place] coma scale motor response: Obey commands [place] coma scale total score: 15 <Andrew Ramos DO - Last Filed: 04/01/22 21:49> GCS Aneudy coma scale total score: 15 Course <Emily Simon DO - Last Filed: 04/02/22 20:53> Orders Ordered: Discontinued Medications Insulin Human Regular (Insulin Regular 100 Unit/Ml 3 Ml Vial) 10 unit SUBCUT NOW ONE Stop: 04/01/22 16:18 Last Admin: 04/01/22 17:11 Dose: 10 unit Documented By: JONI Co-signed By: SABAS Reevaluation(s) Reevaluation #1: Patient is seated on the edge of the bed. Reviewed her findings today. Reiterated plan for repeat head CT at 7:30 a.m. this evening and recommendations from Neurosurgery. Time: 19:00 Consultations Consultation #1: Dr. Gibbons, neurosurgery at [facility]. Recommends repeat head CT at 6 hour. interval if stable can follow-up outpatient with primary care he does recommend holding her aspirin for 3 days. Suspect there is also a component of concussion with her symptoms today Vital Signs Vital signs: Vital Signs - 8 hr 04/01/22 14:09 04/01/22 14:30 04/01/22 14:56 Pulse Rate 90 90 88 Respiratory Rate 24 24 Blood Pressure Pulse Oximetry 96 99 98 04/01/22 14:56 04/01/22 15:00 04/01/22 15:00 Pulse Rate 87 Respiratory Rate 22 Blood Pressure 151/71 H 152/76 H Pulse Oximetry 99 04/01/22 15:30 04/01/22 15:30 04/01/22 16:00 Pulse Rate 87 Respiratory Rate 19 Blood Pressure 149/72 H 159/74 H Pulse Oximetry 99 04/01/22 16:00 04/01/22 16:30 04/01/22 16:30 Pulse Rate 93 H 90 Respiratory Rate 23 28 H Blood Pressure 166/86 H Pulse Oximetry 98 97 04/01/22 17:00 04/01/22 17:00 04/01/22 17:30 Pulse Rate 84 Respiratory Rate 24 Blood Pressure 166/79 H 150/71 H Pulse Oximetry 96 04/01/22 17:30 04/01/22 18:00 04/01/22 18:00 Pulse Rate 84 80 Respiratory Rate 21 20 Blood Pressure 172/79 H Pulse Oximetry 94 99 04/01/22 18:30 04/01/22 18:30 04/01/22 19:00 Pulse Rate 79 Respiratory Rate 28 H Blood Pressure 166/84 H 167/76 H Pulse Oximetry 99 04/01/22 19:00 04/01/22 19:36 04/01/22 20:00 Pulse Rate 80 82 81 Respiratory Rate 22 23 25 H Blood Pressure Pulse Oximetry 99 97 99 04/01/22 20:30 04/01/22 21:00 04/01/22 21:22 Pulse Rate 84 83 Respiratory Rate 28 H 26 H Blood Pressure 161/75 H Pulse Oximetry 97 99 04/01/22 21:22 Pulse Rate 89 Respiratory Rate Blood Pressure Pulse Oximetry 96 <Andrew Ramos, DO - Last Filed: 04/01/22 21:49> Orders Ordered: Discontinued Medications Insulin Human Regular (Insulin Regular 100 Unit/Ml 3 Ml Vial) 10 unit SUBCUT NOW ONE Stop: 04/01/22 16:18 Last Admin: 04/01/22 17:11 Dose: 10 unit Documented By: JONI Co-signed By: SABAS Vital Signs Vital signs: Vital Signs - 8 hr 04/01/22 14:09 04/01/22 14:30 04/01/22 14:56 Pulse Rate 90 90 88 Respiratory Rate 24 24 Blood Pressure Pulse Oximetry 96 99 98 04/01/22 14:56 04/01/22 15:00 04/01/22 15:00 Pulse Rate 87 Respiratory Rate 22 Blood Pressure 151/71 H 152/76 H Pulse Oximetry 99 04/01/22 15:30 04/01/22 15:30 04/01/22 16:00 Pulse Rate 87 Respiratory Rate 19 Blood Pressure 149/72 H 159/74 H Pulse Oximetry 99 04/01/22 16:00 04/01/22 16:30 04/01/22 16:30 Pulse Rate 93 H 90 Respiratory Rate 23 28 H Blood Pressure 166/86 H Pulse Oximetry 98 97 04/01/22 17:00 04/01/22 17:00 04/01/22 17:30 Pulse Rate 84 Respiratory Rate 24 Blood Pressure 166/79 H 150/71 H Pulse Oximetry 96 04/01/22 17:30 04/01/22 18:00 04/01/22 18:00 Pulse Rate 84 80 Respiratory Rate 21 20 Blood Pressure 172/79 H Pulse Oximetry 94 99 04/01/22 18:30 04/01/22 18:30 04/01/22 19:00 Pulse Rate 79 Respiratory Rate 28 H Blood Pressure 166/84 H 167/76 H Pulse Oximetry 99 04/01/22 19:00 04/01/22 19:36 04/01/22 20:00 Pulse Rate 80 82 81 Respiratory Rate 22 23 25 H Blood Pressure Pulse Oximetry 99 97 99 04/01/22 20:30 04/01/22 21:00 04/01/22 21:22 Pulse Rate 84 83 Respiratory Rate 28 H 26 H Blood Pressure 161/75 H Pulse Oximetry 97 99 04/01/22 21:22 Pulse Rate 89 Respiratory Rate Blood Pressure Pulse Oximetry 96 MDM - Dizziness <Emily Simon, DO - Last Filed: 04/02/22 20:53> Lab Data Result diagrams: 04/01/22 12:00 04/01/22 12:00 Labs: Lab Results 04/01/22 04/01/22 04/01/22 Range/Units 12:00 12:00 12:00 WBC 3.4 L (4.5-11.0) X10^3/uL RBC 4.15 (4.0-5.2) X10^6/uL Hgb 11.4 L (12.0-16.0) g/dL Hct 35.7 L (36-46) % MCV 86.1 (80-100) fL MCH 27.5 (26-34) PG MCHC 32.0 (30-36) % RDW 17.3 H (11.6-14.8) % Plt Count 71 L (150-400) X10^3/uL Neut % (Auto) 73.4 (50-75) % Lymph % (Auto) 8.9 L (25-40) % [place] % (Auto) 12.4 (3-14) % Eos % (Auto) 4.1 H (2-4) % Baso % (Auto) 1.2 (0-2) % Neut # (Auto) 2500 (4965-2565) /uL Lymph # (Auto) 300 L (8937-8407) /uL [place] # (Auto) 400 (0-900) /uL Eos # (Auto) 100 (0-450) /uL Baso # (Auto) 0 (0-100) /uL Sodium 139 (137-145) mmol/L Potassium 4.1 (3.4-5.1) mmol/L Chloride 103 (98-107) mmol/L Carbon Dioxide 27 (22-32) mmol/L BUN 15 (7-17) mg/dL Creatinine 0.74 (0.52-1.04) mg/dL Estimated GFR > 60 (>60) mL/min BUN/Creatinine Ratio 20.3 (6-22) Glucose 272 H (80-110) mg/dL Calcium 10.0 (8.4-10.2) mg/dL Magnesium 1.7 (1.6-2.3) mg/dL Total Bilirubin 1.5 H (0.2-1.3) mg/dL AST 71 H (14-36) IU/L ALT 19 (<35) IU/L Alkaline Phosphatase 232 H (38-126) U/L Total Creatine Kinase 38 (30-135) U/L CK-MB (CK-2) TNP CK-MB (CK-2) Rel Index TNP Troponin I 0.022 (0.01-0.034) ng/mL Total Protein 8.6 H (6.3-8.2) g/dL Albumin 3.6 (3.5-5.0) g/dL Globulin 5.0 H (1.7-4.1) g/dL Albumin/Globulin Ratio 0.7 L (1.0-2.8) Lipase 181 (23-300) U/L Urine RBC (0-5/HPF) Urine WBC (0-5/HPF) Urine Bacteria (None) Ur Culture Indicated? SARS-CoV-2 (PCR) Negative (Negative) 04/01/22 Range/Units 13:45 WBC (4.5-11.0) X10^3/uL RBC (4.0-5.2) X10^6/uL Hgb (12.0-16.0) g/dL Hct (36-46) % MCV (80-100) fL MCH (26-34) PG MCHC (30-36) % RDW (11.6-14.8) % Plt Count (150-400) X10^3/uL Neut % (Auto) (50-75) % Lymph % (Auto) (25-40) % [place] % (Auto) (3-14) % Eos % (Auto) (2-4) % Baso % (Auto) (0-2) % Neut # (Auto) (8192-0056) /uL Lymph # (Auto) (5903-3186) /uL [place] # (Auto) (0-900) /uL Eos # (Auto) (0-450) /uL Baso # (Auto) (0-100) /uL Sodium (137-145) mmol/L Potassium (3.4-5.1) mmol/L Chloride (98-107) mmol/L Carbon Dioxide (22-32) mmol/L BUN (7-17) mg/dL Creatinine (0.52-1.04) mg/dL Estimated GFR (>60) mL/min BUN/Creatinine Ratio (6-22) Glucose (80-110) mg/dL Calcium (8.4-10.2) mg/dL Magnesium (1.6-2.3) mg/dL Total Bilirubin (0.2-1.3) mg/dL AST (14-36) IU/L ALT (<35) IU/L Alkaline Phosphatase (38-126) U/L Total Creatine Kinase (30-135) U/L CK-MB (CK-2) CK-MB (CK-2) Rel Index Troponin I (0.01-0.034) ng/mL Total Protein (6.3-8.2) g/dL Albumin (3.5-5.0) g/dL Globulin (1.7-4.1) g/dL Albumin/Globulin Ratio (1.0-2.8) Lipase (23-300) U/L Urine RBC 0-1/hpf (0-5/HPF) Urine WBC 0-1/hpf (0-5/HPF) Urine Bacteria None seen (None) Ur Culture Indicated? Cult not indicated SARS-CoV-2 (PCR) (Negative) Point of Care Testing Glucose POC 225 Urine Dip Bedside Urine Glucose 1000 mg/dl Bedside Urine Bilirubin - Negative Bedside Urine Ketone - Negative Urine Specific [place] 1.015 Bedside Urine Occult Blood - Negative Bedside Urine pH 6.0 Bedside Urine Protein +/- 15 Bedside Urine Urobilinogen - Negative Bedside Urine Nitrite - Negative Bedside Urine Leukocytes - Negative Esterase Imaging Data CT scan - head: Radiologist's Impression: Close Cervical Spine CT (Signed) Dillon Dee - 04/01/[address] (Signed) Dillon Dee - 04/01/22 Chest X-Ray (Signed) Dillon Dee - 04/01/22 Vascular Ultrasound (Signed) Brijesh Nance - 02/05/22 Chest X-Ray (Signed) Kelton Anaya - 02/05/22 Abdomen Ultrasound (Signed) Thomas,Paddy - 02/04/22 Abdomen/Pelvis CT (Signed) Thomas,Paddy - 02/04/22 Chest X-Ray (Signed) Thomas,Paddy - 02/04/22 Outside EKG 02/04/[address] (Signed) Wallace Dang - 07/12/21 Echocardiogram Ultrasound (Signed) Levi Lopez - 06/22/21 Telemetry Strips 03/16/21 Telemetry Strips 03/16/21 Chest X-Ray (Signed) Radha Branham - 03/16/21 Myocardial Perfusion Scan Nuc Med (Signed) Selene Mendiolau - 03/16/21 Echocardiogram Ultrasound (Signed) Selene Mendiolau - 03/16/21 Chest X-Ray (Signed) Bari Bridges - 01/28/21 PFT Result 01/13/21 Chest X-Ray (Signed) Livier Barrett - 09/16/20 EKG Rpt. 09/16/20 Carotid Doppler Study (Signed) Radha Branham - 09/09/20 Radiology Report (Cancelled) Avery Buckley - 06/28/20 Myocardial Perfusion Scan Nuc Med (Signed) Zahida Buckleyu - 06/28/20 Echocardiogram Ultrasound (Signed) Levi Lopez - 06/15/20 Chest CTA (Signed) Livier Barrett - 06/03/20 Chest X-Ray (Signed) Livier Barrett - 06/03/20 Telemetry Strips 04/29/20 Echocardiogram Ultrasound (Signed) Rohan Alfonso - 01/08/20 Abdomen Ultrasound (Signed) Brijesh Nance - 12/09/19 Chest X-Ray (Signed) Brijesh Nance - 11/29/19 EKG Rpt. 07/06/19 Chest X-Ray (Signed) Yves Jaimes - 07/06/19 Chest X-Ray (Signed) Kit Deras - 12/11/[address] [address] [address] Scan Report Signed Patient: Marianela Valedz MR#: [id number] : 1955 Acct:[id number] Age/Sex: 66 / F Date of Service: 04/01/22 Loc: ED Accession Number: [id number] ?? Procedure: CT head/brain wo con Ordering Provider: Emily Simon D.O. PROCEDURE:? CT HEAD/BRAIN WO CON ? INDICATIONS:? fall, hit head on thinners ? TECHNIQUE:? Noncontrast 4.5 mm thick angled axial sections acquired from the foramen magnum to the vertex, with coronal and sagittal reformats.? For radiation dose reduction, the following was used:? automated exposure control, adjustment of mA and/or kV according to patient size.? ? COMPARISON:? [facility], CT, CT HEAD/BRAIN WO CON, 07/12/2021, 23:44. ? FINDINGS:? Image quality:? Excellent.? ? CSF spaces:? Basal cisterns are patent.? The ventricles are symmetric in size and shape.? Hyperdense blood products are seen in the anterior right frontal convexity and along the anterior right parafalcine region.? Blood products measure up to 5 mm in maximum thickness. ? Brain:? No intraparenchymal hemorrhage is seen.? No significant mass effect.? T here is cerebral volume loss for age, with resultant ventricular and sulcal prominence.? There are periventricular and deep white matter chronic small vessel ischemic changes.? There is intracranial internal carotid artery atherosclerosis.? ? Skull and face:? Calvarium and visualized facial bones appear intact, without suspicious lesions.? ? Sinuses:? Visualized sinuses and mastoids are clear.? ? IMPRESSION:? Small hyperdense subdural hematoma along the anterior inferior right frontal convexity and right parafalcine region.? No significant mass effect or midline shift.? No intraparenchymal hemorrhage. ? Findings were discussed with the referring physician, Dr. Simon, by telephone on 04/01/2022 at 1:30 PM ([place] time). ? ? ? Dictated by: Dillon Dee M.D. on 04/01/2022 at 13:23 ? ? Approved by: Dillon Dee M.D. on 04/01/2022 at 13:31?? CT - cervical spine: Radiologist's Impression: [address] [address] [address] Scan Report Signed Patient: Marianela Valdez MR#: [id number] : 1955 Acct:[id number] Age/Sex: 66 / F Date of Service: 04/01/22 Loc: ED Accession Number: [id number] ?? Procedure: CT cervical spine wo con Ordering Provider: Emily Simon D.O. PROCEDURE:? CT CERVICAL SPINE WO CON ? INDICATIONS:? fall ? TECHNIQUE:? Noncontrast 3 mm thick sections acquired from the skull base to the T4 level.? Sagittal and coronal reformats were then constructed.? For radiation dose reduction, the following was used:? automated exposure control, adjustment of mA and/or kV according to patient size.? ? COMPARISON:? None. ? FINDINGS:? Image quality:? Excellent.? ? Bones:? No acute fractures or dislocations.? Visualized superior ribs are intact.? Mild multilevel degenerative changes. ? Soft tissues:? Prevertebral soft tissues are normal in thickness.? No paraverteb ral hematomas.? No apical pneumothoraces.? ? IMPRESSION:? No acute cervical spine fracture or subluxation. ? ? ? Dictated by: Dillon Dee M.D. on 04/01/2022 at 13:31 ? ? Approved by: Dillon Dee M.D. on 04/01/2022 at 13:33?? Chest x-ray: Radiologist's Impression: [place] [address] XRay Report Signed Patient: Marianela Valdez MR#: [id number] : 1955 Acct:[id number] Age/Sex: 66 / F Date of Service: 04/01/22 Loc: ED Accession Number: [id number] ?? Procedure: XR chest 1V Ordering Provider: Emily Simon D.O. PROCEDURE:? XR CHEST 1V ? INDICATIONS:? chest pain ? TECHNIQUE:? One view of the chest was acquired.? ? [facility], 7:13. ? FINDINGS:? ? Surgical changes and devices:? None.? ? Lungs and pleura:? Mildly low lung volumes bilaterally.? Horizontal opacity at the left lung base is most likely atelectasis.? No pleural effusions or pneumothorax.? ? Mediastinum:? Mediastinal contours appear normal.? Heart size is normal.? ? Bones and chest wall:? No suspicious bony lesions.? Overlying soft tissues appear unremarkable.? ? IMPRESSION:? Mildly low lung volumes with basilar atelectasis.? No acute consolidation. ? ? Dictated by: Dillon Dee M.D. on 04/01/2022 at 11:37 ? ? Approved by: Dillon Dee M.D. on 04/01/2022 at 11:40?? ECG Data Attestation: I personally reviewed and interpreted this ECG as follows: Interpretation: Sinus rhythm, rate of 92 SC 150 QRS 82 QTC 447. Patient has prior from 02/05/2022 which appears similar. MDM Narrative Medical decision making narrative: This is a 66-year-old female with some longstanding memory and neurologic issues who states she had a fall 4 days ago hit her head and has had persistent headache since with some increased tumbling and dizziness. No acute neurologic changes on examination. Patient states she is been ambulating since then. Head CT shows a small 5 mm subdural without any mass effect or shift. Patient's C- spine is negative, chest x-ray does not show major changes. Labs overall show a decrease in white cell, hemoglobin and platelets which patient has had intermit tently over the past with longstanding low platelets in the 70s today and as low as 59 in the past. Patient is otherwise appear at baseline her creatinine actually appears improved compared to January, patient's troponin is negative. No acute EKG changes. Discussed with neurosurgery they recommend repeat head CT in 6 hours if stable patient can be discharged home and hold her aspirin for 3 days before restarting. Patient signed out to Dr. Ramos while awaiting repeat head CT. Patient was re-evaluated at baseline, sitting up on the edge of the bed has been moving about. Dr Rmaos: Received turned over. You patient's history and physical exam. Repeat head CT shows no worsening potential improvement of the subdural noticed in the initial head CT. Patient has been ambulatory. Tolerating oral intake. Plan to be is to discharge home. I did discuss the findings with a repeat head CT with the patient. She was given return precautions follow-up instructions. She expressed understanding and agreement. <Andrew Ramos, DO - Last Filed: 04/01/22 21:49> Lab Data Labs: Lab Results 09/06/1204/01/22 04/01/22 Range/Units 12:00 12:00 12:00 WBC 3.4 L (4.5-11.0) X10^3/uL RBC 4.15 (4.0-5.2) X10^6/uL Hgb 11.4 L (12.0-16.0) g/dL Hct 35.7 L (36-46) % MCV 86.1 (80-100) fL MCH 27.5 (26-34) PG MCHC 32.0 (30-36) % RDW 17.3 H (11.6-14.8) % Plt Count 71 L (150-400) X10^3/uL Neut % (Auto) 73.4 (50-75) % Lymph % (Auto) 8.9 L (25-40) % [place] % (Auto) 12.4 (3-14) % Eos % (Auto) 4.1 H (2-4) % Baso % (Auto) 1.2 (0-2) % Neut # (Auto) 2500 (3772-5319) /uL Lymph # (Auto) 300 L (2349-7777) /uL [place] # (Auto) 400 (0-900) /uL Eos # (Auto) 100 (0-450) /uL Baso # (Auto) 0 (0-100) /uL Sodium 139 (137-145) mmol/L Potassium 4.1 (3.4-5.1) mmol/L Chloride 103 (98-107) mmol/L Carbon Dioxide 27 (22-32) mmol/L BUN 15 (7-17) mg/dL Creatinine 0.74 (0.52-1.04) mg/dL Estimated GFR > 60 (>60) mL/min BUN/Creatinine Ratio 20.3 (6-22) Glucose 272 H (80-110) mg/dL Calcium 10.0 (8.4-10.2) mg/dL Magnesium 1.7 (1.6-2.3) mg/dL Total Bilirubin 1.5 H (0.2-1.3) mg/dL AST 71 H (14-36) IU/L ALT 19 (<35) IU/L Alkaline Phosphatase 232 H (38-126) U/L Total Creatine Kinase 38 (30-135) U/L CK-MB (CK-2) TNP CK-MB (CK-2) Rel Index TNP Troponin I 0.022 (0.01-0.034) ng/mL Total Protein 8.6 H (6.3-8.2) g/dL Albumin 3.6 (3.5-5.0) g/dL Globulin 5.0 H (1.7-4.1) g/dL Albumin/Globulin Ratio 0.7 L (1.0-2.8) Lipase 181 (23-300) U/L Urine RBC (0-5/HPF) Urine WBC (0-5/HPF) Urine Bacteria (None) Ur Culture Indicated? SARS-CoV-2 (PCR) Negative (Negative) 04/01/22 Range/Units 13:45 WBC (4.5-11.0) X10^3/uL RBC (4.0-5.2) X10^6/uL Hgb (12.0-16.0) g/dL Hct (36-46) % MCV (80-100) fL MCH (26-34) PG MCHC (30-36) % RDW (11.6-14.8) % Plt Count (150-400) X10^3/uL Neut % (Auto) (50-75) % Lymph % (Auto) (25-40) % [place] % (Auto) (3-14) % Eos % (Auto) (2-4) % Baso % (Auto) (0-2) % Neut # (Auto) (1340-3480) /uL Lymph # (Auto) (0951-5347) /uL [place] # (Auto) (0-900) /uL Eos # (Auto) (0-450) /uL Baso # (Auto) (0-100) /uL Sodium (137-145) mmol/L Potassium (3.4-5.1) mmol/L Chloride (98-107) mmol/L Carbon Dioxide (22-32) mmol/L BUN (7-17) mg/dL Creatinine (0.52-1.04) mg/dL Estimated GFR (>60) mL/min BUN/Creatinine Ratio (6-22) Glucose (80-110) mg/dL Calcium (8.4-10.2) mg/dL Magnesium (1.6-2.3) mg/dL Total Bilirubin (0.2-1.3) mg/dL AST (14-36) IU/L ALT (<35) IU/L Alkaline Phosphatase (38-126) U/L Total Creatine Kinase (30-135) U/L CK-MB (CK-2) CK-MB (CK-2) Rel Index Troponin I (0.01-0.034) ng/mL Total Protein (6.3-8.2) g/dL Albumin (3.5-5.0) g/dL Globulin (1.7-4.1) g/dL Albumin/Globulin Ratio (1.0-2.8) Lipase (23-300) U/L Urine RBC 0-1/hpf (0-5/HPF) Urine WBC 0-1/hpf (0-5/HPF) Urine Bacteria None seen (None) Ur Culture Indicated? Cult not indicated SARS-CoV-2 (PCR) (Negative) Point of Care Testing Glucose POC 225 Urine Dip Bedside Urine Glucose 1000 mg/dl Bedside Urine Bilirubin - Negative Bedside Urine Ketone - Negative Urine Specific [place] 1.015 Bedside Urine Occult Blood - Negative Bedside Urine pH 6.0 Bedside Urine Protein +/- 15 Bedside Urine Urobilinogen - Negative Bedside Urine Nitrite - Negative Bedside Urine Leukocytes - Negative Esterase Imaging Data Repeat head CT: Radiologist's Impression: [place] [address] CT Scan Report Signed Patient: Marianela Valdez MR#: [id number] : 1955 Acct:[id number] Age/Sex: 66 / F Date of Service: 04/01/22 Loc: ED Accession Number: [id number] ?? Procedure: CT head/brain wo con Ordering Provider: Emily Simon D.O. PROCEDURE:? CT HEAD/BRAIN WO CON ? INDICATIONS:? repeat, SDH ? TECHNIQUE:? Noncontrast 4.5 mm thick angled axial sections acquired from the foramen magnum to the vertex, with coronal and sagittal reformats.? For radiation dose reduction, the following was used:? automated exposure control, adjustment of mA and/or kV according to patient size.? ? COMPARISON:? [facility], CT, CT HEAD/BRAIN WO CON, 04/01/2022, 14:06.? [facility], CT, CT HEAD/BRAIN WO CON, 07/12/2021, 23:44. ? FINDINGS:? Image quality:? Excellent.? ? CSF spaces:? Basal cisterns are patent.? No extra-axial fluid collections.? The ventricles are symmetric in size and shape.? ? Brain:? Redemonstration of small anterior right frontal convexity and right parafalcine subdural hematoma which appears stable to slightly decreased in conspicuity.? No new acute intracranial hemorrhage identified.? No intracranial masses.? There is cerebral volume loss for age, with resultant ventricular and sulcal prominence.? There are periventricular and deep white matter chronic small vessel ischemic changes.? There is intracranial internal carotid artery atherosclerosis.? ? Skull and face:? Calvarium and visualized facial bones appear intact, without suspicious lesions.? ? Sinuses:? Visualized sinuses and mastoids are clear.? ? IMPRESSION:? Stable to slightly decreased conspicuity of small hyperdense subdural hematoma along the anterior inferior right frontal convexity and right parafalcine region.? No mass effect or midline shift.? No new areas of acute intracranial hemorrhage identified. ? Otherwise, stable CT evaluation of the head with age related senescent changes and sequela of chronic small vessel ischemic disease. ? ? Dictated by: Kelton Anaya M.D. on 04/01/2022 at 20:31 ? ? Approved by: Kelton Anaya M.D. on 04/01/2022 at 20:35?? [facility] Narrative Medical decision making narrative: This is a 66-year-old female with some longstanding memory and neurologic issues who states she had a fall 4 days ago hit her head and has had persistent headache since with some increased tumbling and dizziness. No acute neurologic changes on examination. Patient states she is been ambulating since then. Head CT shows a small 5 mm subdural without any mass effect or shift. Patient's C- spine is negative, chest x-ray does not show major changes. Labs overall show a decrease in white cell, hemoglobin and platelets which patient has had intermittently over the past with longstanding low platelets in the 70s today and as low as 59 in the past. Patient is otherwise appear at baseline her creatinine actually appears improved compared to January, patient's troponin is negative. No acute EKG changes. Discussed with neurosurgery they recommend repeat head CT in 6 hours if stable patient can be discharged home and hold her aspirin for 3 days before restarting. Dr Ramos: Received turned over. You patient's history and physical exam. Repeat head CT shows no worsening potential improvement of the subdural noticed in the initial head CT. Patient has been ambulatory. Tolerating oral intake. Plan to be is to discharge home. I did discuss the findings with a repeat head CT with the patient. She was given return precautions follow-up instructions. She expressed understanding and agreement. Discharge Plan Departure Patient Disposition: Home Clinical Impression: Fall, SDH (subdural hematoma) Instructions: DI for Subdural Hematoma Activity Restrictions/Additional Instructions: Follow-up with your physician for recheck. Please call for an appointment this week. Your case was discussed with Neurosurgery at [facility] and they reviewed your images. They recommend holding your aspirin for the next 3 days you can restart your aspirin on the 05 of April. You may continue your other home medications as prescribed Your head CT today showed a small 5 mm subdural hematoma, this was repeated at hours and shows no new change Please return for rapidly worsening or new symptoms, passing, severe headaches, persistent vomiting or other new or changing symptoms. Prescriptions: No Action hydroxyzine pamoate 25 mg capsule 25 mg PO BID PRN (Reason: anxiety) Qty: 20 1RF rifaximin 550 mg tablet 550 mg PO BID 30 Days Qty: 60 Label Comments: takes at noon and midnight levothyroxine 50 mcg Tablet 25 mcg PO DAILY Qty: 0 Label Comments: take at about noon cinacalcet [Sensipar] 30 MG tablet 30 mg PO DAILY Qty: 0 Label Comments: takes at about midnight aspirin 81 mg tablet,delayed release (DR/EC) 81 mg PO DAILY Label Comments: takes at about noon metoprolol succinate 25 mg tablet extended release 24 hr 25 mg PO DAILY Label Comments: take at about noon nitroglycerin 0.4 mg tablet, sublingual 0.4 mg SL PRN PRN (Reason: chest pain) Label Comments: has never taken Rx Instructions: one tab Q5 minutes, call 911 if pain persists (up to three tablets). insulin aspart U-100 100 unit/mL (3 mL) insulin pen 50 unit SUBCUT TID Label Comments: per updated med list from 07/12/19 - Adrian Martin MD d/c instructions Humulin R U-500 (Conc) Kwikpen 500 unit/mL (3 mL) insulin pen 50 unit subcut TID desvenlafaxine 100 mg tablet extended release 24 hr 100 mg PO DAILY Qty: 90 0RF Label Comments: takes at about noon spironolactone 50 mg tablet 50 mg PO DAILY Label Comments: Take ONE tablet (50 mg total) by mouth daily, at midnight. atorvastatin 80 mg tablet 80 mg PO DAILY Label Comments: take at about midnight Humalog KwikPen Insulin 200 unit/mL (3 mL) insulin pen 50 unit SUBCUT DAILY Skyrizi 150 mg/mL syringe 150 mg SUBCUT Q4W cholecalciferol (vitamin D3) 25 mcg (1,000 unit) tablet 25 mcg PO DAILY Label Comments: takes at about noon olopatadine 0.1 % drops 1 drp EYE-BOTH BID Label Comments: Instill 1 drop in the both eyes twice daily (DME) pen needle, diabetic [BD Ultra-Fine Mini Pen Needle] 31 gauge x 3/16 needle See Rx Instructions .ROUTE .MEDSUPPLY Qty: 50 Rx Instructions: As directed furosemide 20 mg tablet 20 mg PO DAILY (DME) NovoFine Plus 32 gauge x 1/6 needle See Rx Instructions .ROUTE .MEDSUPPLY Qty: 100 Label Comments: USE UP TO 6 TIMES A DAY TO INJECT INSULIN Rx Instructions: As directed Referrals: Timur Schwartz MD [Primary Care Provider] - Visit Report Forms: Patient Portal/API
--- NOTE | 2022-04-01 13:44 | DI.CT.S_ITS ---
PROCEDURE: CT CERVICAL SPINE WO CON INDICATIONS: fall TECHNIQUE: Noncontrast 3 mm thick sections acquired from the skull base to the T4 level. Sagittal and coronal reformats were then constructed. For radiation dose reduction, the following was used: automated exposure control, adjustment of mA and/or kV according to patient size. COMPARISON: None. FINDINGS: Image quality: Excellent. Bones: No acute fractures or dislocations. Visualized superior ribs are intact. Mild multilevel degenerative changes. Soft tissues: Prevertebral soft tissues are normal in thickness. No paravertebral hematomas. No apical pneumothoraces. IMPRESSION: No acute cervical spine fracture or subluxation. Dictated by: Dillon Dee M.D. on 04/01/2022 at 13:31 Approved by: Dillon Dee M.D. on 04/01/2022 at 13:33
[2022-04-01 15:28] LABS: Bacteria Urine None Seen; RBC Urine 0-1/HPF (0-5/HPF); WBC Urine 0-1/HPF (0-5/HPF)
[2022-04-01 15:29] LABS: Culture Indicated Urine Cult Not Indicated
[2022-04-01] MEDS: INSULIN REGULAR 100 UNIT/ML 3 ML VIAL 10 UNIT SUBCUT (17:11)
--- NOTE | 2022-04-01 19:30 | DI.CT.S_ITS ---
PROCEDURE: CT HEAD/BRAIN WO CON INDICATIONS: repeat, SDH TECHNIQUE: Noncontrast 4.5 mm thick angled axial sections acquired from the foramen magnum to the vertex, with coronal and sagittal reformats. For radiation dose reduction, the following was used: automated exposure control, adjustment of mA and/or kV according to patient size. COMPARISON: [facility], CT, CT HEAD/BRAIN WO CON, 04/01/2022, 14:06. [facility], CT, CT HEAD/BRAIN WO CON, 07/12/2021, 23:44. FINDINGS: Image quality: Excellent. CSF spaces: Basal cisterns are patent. No extra-axial fluid collections. The ventricles are symmetric in size and shape. Brain: Redemonstration of small anterior right frontal convexity and right parafalcine subdural hematoma which appears stable to slightly decreased in conspicuity. No new acute intracranial hemorrhage identified. No intracranial masses. There is cerebral volume loss for age, with resultant ventricular and sulcal prominence. There are periventricular and deep white matter chronic small vessel ischemic changes. There is intracranial internal carotid artery atherosclerosis. Skull and face: Calvarium and visualized facial bones appear intact, without suspicious lesions. Sinuses: Visualized sinuses and mastoids are clear. IMPRESSION: Stable to slightly decreased conspicuity of small hyperdense subdural hematoma along the anterior inferior right frontal convexity and right parafalcine region. No mass effect or midline shift. No new areas of acute intracranial hemorrhage identified. Otherwise, stable CT evaluation of the head with age related senescent changes and sequela of chronic small vessel ischemic disease. Dictated by: Kelton Anaya M.D. on 04/01/2022 at 20:31 Approved by: Kelton Anaya M.D. on 04/01/2022 at 20:35
== END 2022-04-01 22:00 | disposition home or self-care (01) ==
PROVIDERS: Emergency Medicine; Emergency Provider Emergency Medicine; Family Provider Internal Medicine; PCP Internal Medicine
DX: S06.5X0A Traumatic subdural hemorrhage without loss of consciousness, initial encounter (principal); R07.9 Chest pain, unspecified; Z79.01 Long term (current) use of anticoagulants; Z20.822 Contact with and (suspected) exposure to COVID-19; R42 Dizziness and giddiness; W19.XXXA Unspecified fall, initial encounter
CPT/HCPCS: 36415; 70450; 71045; 72125; 80053; 81003; 81015; 82550; 82962; 83690; 83735; 84484; 85025; 87635; 93005; 96372; 99283; 99285; C9803

== ENCOUNTER → 2022-05-17 15:38 | Outpatient (CLI) | payer MEDICARE, MEDICAID, SELFPAY ==
[2022-04-04 09:29] VITALS: BMI 24.4
[2022-05-17 18:30] LABS: Alanine Aminotransferase 20 IU/L (<35); Albumin 3.8 g/dL (3.5-5.0); Albumin Globulin Ratio 0.8 (1.0-2.8); Alkaline Phosphatase 191 U/L (38-126); Aspartate Aminotransferase 49 IU/L (14-36); BUN Creatinine Ratio 27.7 (6-22); Bilirubin Total 1.2 mg/dL (0.2-1.3); Blood Urea Nitrogen 26 mg/dL (7-17); Calcium 9.3 mg/dL (8.4-10.2); Carbon Dioxide 28 mmol/L (22-32); Chloride 103 mmol/L (98-107); Estimated Glomerular Filt Rate > 60 mL/min (>60); Globulin 4.8 g/dL (1.7-4.1); Glucose 205 mg/dL (80-110); HEMOLYSIS < 15 (0-50); Magnesium 1.9 mg/dL (1.6-2.3); Potassium 3.8 mmol/L (3.4-5.1); Sodium 139 mmol/L (137-145); Total Protein 8.6 g/dL (6.3-8.2)
[2022-05-21 06:43] LABS: Cholesterol, Total 136 mg/dL (100-199); HDL-Cholesterol 57 mg/dL (>39); HDL-Particle (Total) 17.3 umol/L (>=30.5); LDL Particle 551 nmol/L (<1000); LDL Size 22.2 nm (>20.5); LDL-Cholsterol 56 mg/dL (0-99); LP-IR Score <25 (<=45); Small LDL- Particle <90 nmol/L (<=527); Triglycerides 132 mg/dL (0-149)
== END ==
PROVIDERS: Family Provider Internal Medicine; PCP Internal Medicine; Referring Provider Specialist; Visit Provider Physician Assistant Medical
DX: F42.2 Mixed obsessional thoughts and acts (principal); F43.10 Post-traumatic stress disorder, unspecified; I10 Essential (primary) hypertension; E78.2 Mixed hyperlipidemia
CPT/HCPCS: 36415; 80053; 80061; 83704; 83735; 90837

== ENCOUNTER → 2022-06-12 14:53 | Outpatient (CLI) | payer MEDICARE, MEDICAID, SELFPAY ==
[2022-04-04 09:29] VITALS: BMI 24.4
--- NOTE | 2022-06-12 14:54 | DI.US.S_ITS ---
PROCEDURE: US CAROTID DOPPLER BI INDICATIONS: CAROTID STENOSIS TECHNIQUE: Color and pulse Doppler interrogation was performed of both carotid systems, with image documentation and velocity measurements. COMPARISON: Outside Facility, RG, CT NECK ANGIO, 10/04/2020, 10:35. Formerly [facility], , US CAROTID DOPPLER BI, 09/09/2020, 15:43. FINDINGS: Stenosis calculations are based on SRU (Society of Radiologists in Ultrasound) criteria. Right side: Brachial blood pressure: 97/53 mm Hg. Common carotid artery peak systolic velocity: 183 cm/sec. Internal carotid artery peak systolic velocity: 261 cm/sec. Internal carotid artery end diastolic velocity: 58 cm/sec. External carotid artery peak systolic velocity: 195 cm/sec. ICA/CCA peak systolic ratio: 1.4. Mondragon scale imaging description: Multifocal atherosclerotic plaque. Percent internal carotid artery stenosis: Greater than 70%. Vertebral artery: Flow direction is antegrade. Left side: Brachial blood pressure: 104/53 mm Hg. Common carotid artery peak systolic velocity: 97 cm/sec. Internal carotid artery peak systolic velocity: 382 cm/sec. Internal carotid artery end diastolic velocity: 61 cm/sec. External carotid artery peak systolic velocity: 235 cm/sec. ICA/CCA peak systolic ratio: 4.0. Mondragon scale imaging description: Multifocal atherosclerotic plaque Percent internal carotid artery stenosis: Greater than 70%. Vertebral artery: Flow direction is antegrade. IMPRESSION: 70% stenosis to near occlusion of the bilateral internal carotid arteries, greater on the left than on the right. Approved by: Dillon Dee M.D. on 06/12/2022 at 17:11
== END ==
PROVIDERS: Family Provider Internal Medicine; PCP Internal Medicine; Referring Provider Internal Medicine; Visit Provider Internal Medicine
DX: I65.23 Occlusion and stenosis of bilateral carotid arteries (principal)
CPT/HCPCS: 93880

== ENCOUNTER 2022-06-18 15:28 | Emergency (ER) | payer MEDICARE, MEDICAID, SELFPAY ==
[2022-04-04 09:29] VITALS: BMI 24.4
[2022-06-18 15:39] VITALS: BP 130/62; PULSE 72; RESP 18; TEMP 36.6; O2SAT 97
--- NOTE | 2022-06-18 15:39 | DI.RAD.S_ITS ---
PROCEDURE: XR ELBOW RT MIN 3V INDICATIONS: pain TECHNIQUE: 3 views of the elbow were acquired. COMPARISON: None. FINDINGS: Bones: No displaced fracture. Scattered arthrosis and suspected enthesopathic changes. Soft tissues: No significant elbow joint effusion. IMPRESSION: No acute radiographic abnormality. If there is high concern for occult injury, consider repeat radiography or cross-sectional imaging. Dictated by: Gerald Pereira M.D. on 06/18/2022 at 16:22 Approved by: Gerald Pereira M.D. on 06/18/2022 at 16:23
--- NOTE | 2022-06-18 16:36 | ED.GENADULT ---
HPI - General Adult General Chief complaint: Extremity Injury, Upper Stated complaint: R arm pain to the point of nausaus x1 Time Seen by Provider: 06/18/22 16:36 Source: patient Mode of arrival: Ambulatory History of Present Illness HPI narrative: Patient is a 67-year-old female who is here for evaluation of a right elbow injury. She thinks that she hurt her elbow within the past couple days when she tried to catch herself from falling. She does have a bruise in the outside of her elbow. The pain radiates down her arm and also upper arm. She did take an ibuprofen. She states the pain is causing her to become nauseous. Related Data Home Medications Medication Instructions Recorded Confirmed levothyroxine 50 mcg tablet 25 mcg PO DAILY ##0 07/17/11 05/18/22 cinacalcet 30 mg tablet (Sensipar) 30 mg PO DAILY ##0 12/16/16 05/18/22 rifaximin 550 mg tablet 550 mg PO BID 30 days #60 tabs 06/25/18 05/18/22 aspirin 81 mg tablet,delayed 81 mg PO DAILY 08/12/19 05/18/22 release metoprolol succinate 25 mg 25 mg PO DAILY 08/12/19 05/18/22 tablet,extended release 24 hr nitroglycerin 0.4 mg sublingual 0.4 mg sublingual PRN PRN chest 08/12/19 05/18/22 tablet pain insulin regular hum U-500 conc 500 50 unit SUBCUT TID 01/20/20 05/18/22 unit/mL(3 mL) subcut pen (Humulin R U-500 (Conc) Insulin Kwikpen) atorvastatin 80 mg tablet 80 mg PO DAILY 11/06/21 05/18/22 cholecalciferol (vitamin D3) 25 25 mcg PO DAILY 11/06/21 05/18/22 mcg (1,000 unit) tablet insulin lispro 200 unit/mL (3 mL) 50 unit SUBCUT DAILY 11/06/21 05/18/22 subcutaneous pen (Humalog KwikPen U-200 Insulin) olopatadine 0.1 % eye drops 1 drp EYE-BOTH BID 11/06/21 05/18/22 spironolactone 50 mg tablet 50 mg PO DAILY 11/06/21 05/18/22 pen needle, diabetic 31 gauge x #50 ea 02/15/22 05/18/22/16 (BD Ultra-Fine Mini Pen Needle) pen needle, diabetic 32 gauge x #100 ea 02/15/22 05/18/22 1/ (NovoFine Plus) risankizumab-rzaa 150 mg/mL 150 mg SUBCUT [id number] 04/09/22 05/18/22 subcutaneous syringe (Skyrizi) Previous Rx's Medication Instructions Recorded hydroxyzine pamoate 25 mg capsule 25 mg PO BID PRN anxiety #20 caps 07/11/21 desvenlafaxine 100 mg 100 mg PO DAILY #90 tabs 05/15/22 tablet,extended release 24 hr tramadol 50 mg tablet 50 mg PO BID PRN pain #60 tabs 05/18/22 Allergies Allergy/AdvReac Type Severity Reaction Status Date / Time hydrocodone Allergy ITCHING Verified 06/18/22 15:41 oxycodone Allergy ITCHING Verified 06/18/22 15:41 propofol AdvReac Unknown Verified 06/18/22 15:41 morphine AdvReac Vomiting Verified 06/18/22 15:41 Pall Blood Filter Allergy Severe Anaphylaxis Uncoded 06/18/22 15:42 Review of Systems Constitutional Constitutional: Reports system reviewed and no additional complaints, except as documented Gastrointestinal Gastrointestinal: Reports system reviewed and no additional complaints, except as documented Musculoskeletal Musculoskeletal: Reports system reviewed and no additional complaints, except as documented Integumentary/Breasts Skin/Breast: Reports system reviewed and no additional complaints, except as documented Neurologic Neurologic: Reports system reviewed and no additional complaints, except as documented Patient History Medical History Acquired hypothyroidism AML (acute myeloid leukemia) in remission Carotid stenosis Chronic kidney disease, stage 3a Cirrhosis Concussion Coronary artery disease Decubitus ulcer of coccyx Depression Gallstone pancreatitis Generalized anxiety disorder Generalized anxiety disorder GVHD (graft versus host disease) Hepatic encephalopathy History of ST elevation myocardial infarction (STEMI) History of upper gastrointestinal bleeding Hyperparathyroidism, secondary renal Insulin dependent diabetes mellitus Mixed hyperlipidemia Obsessive compulsive disorder Psoriasis Restrictive lung disease Scleroderma Thrombocytopenia Surgical History History of bone marrow transplant History of colonoscopy History of coronary artery stent placement Family History Father Heart disease S/P CABG x 4 Hypertension Mother Gallstones Brother No significant medical problems Sister Diabetes mellitus Social History marital status: unknown household members: none Smoking Status: Never smoker alcohol intake: former substance use type: does not use Smoking Status: Never smoker alcohol intake frequency: 0-2 drinks per day Substance Use Type: does not use Exam Initial Vital Signs Initial Vital Signs: Vital Signs Temperature 97.8 F 06/18/22 15:39 Pulse Rate 72 06/18/22 15:39 Respiratory Rate 18 06/18/22 15:39 Blood Pressure 130/62 06/18/22 15:39 Pulse Oximetry 97 06/18/22 15:39 Oxygen Delivery Method 06/18/22 15:39 Const General: cooperative and healthy appearing Cardio Pulses: radial pulses present Skin Other: Contusion on the lateral aspect of the elbow over the lateral epicondyle Neuro Sensory Exam: no sensory deficits noted Extrem Other: The right elbow is limited in range of motion secondary to discomfort. The right shoulder and right wrist are unremarkable. Course Orders Ordered: ED Orders 06/18/22 15:39 XR elbow RT min 3V Stat Vital Signs Vital signs: Vital Signs - 8 hr 06/18/22 15:39 Temperature 97.8 F Pulse Rate 72 Respiratory Rate 18 Blood Pressure 130/62 Pulse Oximetry 97 Oxygen Delivery Method Room Air Medical Decision Making Imaging Data Extremity x-ray #1: Radiologist's Impression: [address] [address] XRay Report Signed Patient: Marianela Valdez MR#: [id number] : 1955 Acct:[id number] Age/Sex: 67 / F Date of Service: 06/18/22 Loc: ED Accession Number: [id number] ?? Procedure: XR elbow RT min 3V Ordering Provider: Andrew Ramos D.O. PROCEDURE:? XR ELBOW RT MIN 3V ? INDICATIONS:? pain ? TECHNIQUE:? 3 views of the elbow were acquired.? ? COMPARISON:? None. ? FINDINGS:? ? Bones:? No displaced fracture.? Scattered arthrosis and suspected enthesopathic changes. ? Soft tissues:? No significant elbow joint effusion. ? ? IMPRESSION:? No acute radiographic abnormality.? If there is high concern for occult injury, consider repeat radiography or cross-sectional imaging. ? ? Dictated by: Gerald Pereira M.D. on 06/18/2022 at 16:22 ? ? Approved by: Gerald Pereira M.D. on 06/18/2022 at 16:23?? [facility] Narrative Medical decision making narrative: No fractures noted on the x-rays. She is acutely painful over the contusion over the lateral epicondyle. Otherwise neurovascularly intact. We did discuss use of Tylenol and ibuprofen. Will hold putting her on a sling to avoid her on becoming stiff. She was given return precautions. She expressed understanding and agreement. Discharge Plan Departure Patient Disposition: Home Clinical Impression: Contusion of elbow, right Instructions: How To Perform RICE (Rest, Ice, Compress, Elevate) Activity Restrictions/Additional Instructions: The x-ray did not show any signs of a broken bone or dislocation. You can take an occasional Tylenol or ibuprofen like we discussed. Also recommend putting ice over the area. Contact your primary doctor for follow-up. Return to the emergency department for any new or worsening symptoms. Prescriptions: No Action hydroxyzine pamoate 25 mg capsule 25 mg PO BID PRN (Reason: anxiety) Qty: 20 1RF rifaximin 550 mg tablet 550 mg PO BID 30 Days Qty: 60 Label Comments: takes at noon and midnight levothyroxine 50 mcg Tablet 25 mcg PO DAILY Qty: 0 Label Comments: take at about noon cinacalcet [Sensipar] 30 MG tablet 30 mg PO DAILY Qty: 0 Label Comments: takes at about midnight aspirin 81 mg tablet,delayed release (DR/EC) 81 mg PO DAILY Label Comments: takes at about noon metoprolol succinate 25 mg tablet extended release 24 hr 25 mg PO DAILY Label Comments: take at about noon nitroglycerin 0.4 mg tablet, sublingual 0.4 mg SL PRN PRN (Reason: chest pain) Label Comments: has never taken Rx Instructions: one tab Q5 minutes, call 911 if pain persists (up to three tablets). Humulin R U-500 (Conc) Kwikpen 500 unit/mL (3 mL) insulin pen 50 unit subcut TID desvenlafaxine 100 mg tablet extended release 24 hr 100 mg PO DAILY Qty: 90 0RF Label Comments: takes at about noon tramadol 50 mg tablet 50 mg PO BID PRN (Reason: pain) Qty: 60 5RF spironolactone 50 mg tablet 50 mg PO DAILY Label Comments: Take ONE tablet (50 mg total) by mouth daily, at midnight. atorvastatin 80 mg tablet 80 mg PO DAILY Label Comments: take at about midnight Humalog KwikPen Insulin 200 unit/mL (3 mL) insulin pen 50 unit SUBCUT DAILY cholecalciferol (vitamin D3) 25 mcg (1,000 unit) tablet 25 mcg PO DAILY Label Comments: takes at about noon olopatadine 0.1 % drops 1 drp EYE-BOTH BID Label Comments: Instill 1 drop in the both eyes twice daily Skyrizi 150 mg/mL syringe 150 mg SUBCUT [id number] (DME) pen needle, diabetic [BD Ultra-Fine Mini Pen Needle] 31 gauge x 3/16 needle See Rx Instructions .ROUTE .MEDSUPPLY Qty: 50 Rx Instructions: As directed (DME) NovoFine Plus 32 gauge x 1/6 needle See Rx Instructions .ROUTE .MEDSUPPLY Qty: 100 Label Comments: USE UP TO 6 TIMES A DAY TO INJECT INSULIN Rx Instructions: As directed Referrals: Timur Schwartz MD [Primary Care Provider] -
--- NOTE | 2022-06-18 16:51 | PC.NURSE ---
seen assessed and DC'd by MD without RN involvement
== END 2022-06-18 16:51 | disposition home or self-care (01) ==
PROVIDERS: Emergency Provider Emergency Medicine; Family Provider Internal Medicine; PCP Internal Medicine
DX: S50.01XA Contusion of right elbow, initial encounter (principal); W18.40XA Slipping, tripping and stumbling without falling, unspecified, initial encounter
CPT/HCPCS: 73080; 99283

== ENCOUNTER 2022-11-12 16:00 | Outpatient (RCR) | payer MEDICARE, MEDICAID, SELFPAY ==
[2021-08-18 12:55] VITALS: BMI 24.4
--- NOTE | 2021-08-24 14:04 | PT.OIE ---
Current Diagnoses Systemic sclerosis, unspecified (08/30/21) Unsteadiness on feet (08/30/21) Past Medical History (Last Reviewed 07/13/21 @ 01:06 by Andrew Ramos DO) AML (acute myeloid leukemia) in remission Cirrhosis Depression Generalized anxiety disorder Hepatic encephalopathy History of bone marrow transplant History of colonoscopy History of coronary artery stent placement History of ST elevation myocardial infarction (STEMI) History of upper gastrointestinal bleeding Insulin dependent diabetes mellitus Obsessive compulsive disorder Psoriasis Restrictive lung disease Scleroderma Thrombocytopenia Past Surgical History (Last Reviewed 03/16/21 @ 14:40 by Andrea Ocampo DO) History of bone marrow transplant History of colonoscopy History of coronary artery stent placement Visit Care Team Role Provider Type Timur Schwartz MD Attending Provider Physician Family Provider Primary Care Provider Referring Provider Specialty: Internal Medicine Address: [address] [place] [address], [facility] Email: [email or web address] Physical Therapy Initial Evaluation PT-OP-A Visit Information Start: 08/24/21 09:51 Freq: Status: Active Protocol: Document 08/24/21 09:45 [facility] (Rec: 08/24/21 09:56 [facility] [id number]) Out-Patient Physical Therapy Visit Information Visit Information Visit Type Initial Evaluation Visit Start Time 09:45 Visit Stop Time 10:30 Total Visit Minutes 45 Visit Number 1 Evaluation Information Evaluation Date 08/24/21 PT-OP-B Current Condition Start: 08/24/21 09:51 Freq: Status: Active Protocol: Document 08/24/21 09:45 [facility] (Rec: 08/24/21 09:56 [facility] [id number]) Current Condition History of Current Condition Onset Date 1993 with stem cell/ bone marrow transplant Current Complaints Pt complains of worsening scleroderma lower legs and feet, decreased ROM History of Current Condition pt hasn't been taking her psoriasis medication because she has to do a needle poke every three months and she feels like she has so many pokes but her psoriasis has worsened in her feet along with her scleroderma making it difficult to walk and to move her feet and ankles. She also notes that despite going through pulmonary rehab she still feels short of breath all the time. 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, PHM also includes encephalopathy, hair loss, diabetes, [place] in 2019 with 2 stents placed Prior Treatments and Tests Pt has received PT in the past for ankle and foot ROM, balance, gait training, MFR and manual therapy techniques to improve ankle and foot mobility Treatment Goals Patient/Caregiver Goals Pts goals include improving ankle and foot mobility and decreasing stiffness and pain PT-OP-C Subjective Start: 08/24/21 09:51 Freq: Status: Active Protocol: Document 08/24/21 09:45 [facility] (Rec: 08/30/21 09:35 [facility] [id number]) OP-PT Pain Assessment Location bilateral ankles and feet Intensity 7 Scale Used Numeric (0 - 10) Description Pressure,Spasm,Tightness, Throbbing Frequency Daily Pain Aggravating Factors Standing,Walking PT-OP-F Manual Assessment Start: 08/30/21 13:57 Freq: Status: Active Protocol: Document 08/24/21 09:45 [facility] (Rec: 08/30/21 14:01 [facility] [id number]) Manual Assessments Soft Tissue Assessment Soft Tissue Mobility Assessment scleraderma throughout the calf and plantar fascia making tissue mobility very difficult. Pt responds well to MFR and manual stretching PT-OP-J Posture/Palpation/Skin Start: 08/24/21 09:51 Freq: Status: Active Protocol: Document 08/24/21 09:45 [facility] (Rec: 08/30/21 09:42 [facility] [id number]) Palpation Assessment Location plantar fascia Palpation Location bilateral plantar fascia Palpation Findings Soft Tissue Tightness, Tenderness Palpation Details guarded and tight plantar fascia bilaterally PT-OP-K Range of Motion Start: 08/24/21 09:51 Freq: Status: Active Protocol: Document 08/24/21 09:45 [facility] (Rec: 08/30/21 09:42 [facility] [id number]) Ankle and Foot Goniometric Range of Motion Ankle and Foot Right Dorsiflexion with Knee Flexed 2 Dorsiflexion with Knee Extended 2 Plantarflexion 6 Inversion 5 Eversion 4 Comments very poor limited ankle mobility Left Dorsiflexion with Knee Flexed 3 Dorsiflexion with Knee Extended 2 Plantarflexion 5 Inversion 5 Eversion 4 Comments very poor limited ankle mobility Ankle and Foot ROM Limitations ROM Limitations Soft Tissue Tightness, Contracture,Pain Comments pt is very limited in ankle and foot ROM, the scleroderma has restricted her joint ROM so much that she only has a few degrees in all planes for her ankle. I am able to mobilize her metatarsals with very limited ROM, tightness in the calf and and plantar fascia B also limits ROM PT-OP-T Assessment and Plan Start: 08/24/21 09:51 Freq: Status: Active Protocol: Document 08/24/21 09:45 [facility] (Rec: 08/30/21 09:35 [facility] [id number]) Physical Therapy Assessment Goals 3 Impairment LE, foot and ankle pain rated 7/10 Halfway Goal (LTG) With manual therapy techniques , ROM exercises, stretches, and mobility exercises Fay has a reduction in pain by 2-3 numbers on the pain scale LTG Duration 12 weeks 2 Impairment B Calf and plantar fascia tightness and pain limiting pts ability to walk Short Term Goal (STG) Fay is educated on stretches and manual techniques she can do at home to help with plantar fascia and calf tightness STG Duration 4 weeks [employer] Goal (LTG) Fay notes a overall reduction in tightness decreasing her pain with walking LTG Duration 12 weeks 1 Impairment Poor ankle and foot ROM affecting balance and gait Halfway Goal (LTG) Fay is able to improve her ankle ROM by 5 degrees into DF to assist with gait and balance LTG Duration 12 weeks Assessment Summary Assessment Fay is a 66 year old female who returns to PT today with worsening c/o painful scleroderma and psoriasis that affects her lower legs, ankles and feet. Fay describes her pain as 7/10 in the ankles and bottoms of her feet making it very hard to walk or to even move her ankles. She has taken medicine for her psorasis however it includes giving her self a injection and since she does injections so often for her diabetes Fay finds it hard to will her self to give herself another injection so she has not been getting the psoriasis medication. With examination today the psoriasis on her ankles and feet is much worse and she has very limited ankle mobility. She notes manual therapy techniques that mobilize her ankles and feet really help her and improve her feeling of circulation. Treatment will emphasize manual therapies as well as a home program for ankle mobility and flexibility , gait and balance training. Fay is a good candidate for PT Physical Therapy Plan Frequency and Duration Frequency of Treatment 1x/Week Duration of Treatment 12 Plan of Care Start Date 08/24/21 Plan of Care End Date 11/16/21 Therapeutic Interventions Therapeutic Interventions Balance Training,Gait Training ,Home Exercise Program,Joint Mobilizations,Manual Therapy, Patient/Caregiver Education, Self-Care/Home Management,Soft Tissue Mobilization, Therapeutic Exercises Next Visit Focus/Plan Next Note Type Treatment Note Next Visit Plan Begin working on ankle ROM and calf flexibility, give Fay a HEP for self care for her ankles and feet for ROM
--- NOTE | 2021-08-24 14:11 | PT.OPPOC ---
Physical, Occupational & Speech Therapy At [facility] Current Diagnoses Systemic sclerosis, unspecified (08/30/21) Unsteadiness on feet (08/30/21) Visit Care Team Role Provider Type Timur Schwartz MD Attending Provider Physician Family Provider Primary Care Provider Referring Provider Specialty: Internal Medicine Address: [address] [place] [address], [facility] Email: [email or web address] Of Care PT-OP-T Assessment and Plan Start: 08/24/21 09:51 Freq: Status: Active Protocol: Document 08/24/21 09:45 [facility] (Rec: 08/30/21 09:35 [facility] [id number]) Physical Therapy Assessment Goals 3 Impairment LE, foot and ankle pain rated 7/10 Mcc Goal (LTG) With manual therapy techniques , ROM exercises, stretches, and mobility exercises Fay has a reduction in pain by 2-3 numbers on the pain scale LTG Duration 12 weeks 2 Impairment B Calf and plantar fascia tightness and pain limiting pts ability to walk Short Term Goal (STG) Fay is educated on stretches and manual techniques she can do at home to help with plantar fascia and calf tightness STG Duration 4 weeks Mcc Goal (LTG) Fay notes a overall reduction in tightness decreasing her pain with walking LTG Duration 12 weeks 1 Impairment Poor ankle and foot ROM affecting balance and gait Mcc Goal (LTG) Fay is able to improve her ankle ROM by 5 degrees into DF to assist with gait and balance LTG Duration 12 weeks Assessment Summary Assessment Fay is a 66 year old female who returns to PT today with worsening c/o painful scleroderma and psoriasis that affects her lower legs, ankles and feet. Fay describes her pain as 7/10 in the ankles and bottoms of her feet making it very hard to walk or to even move her ankles. She has taken medicine for her psoriasis however it includes giving her self a injection and since she does injections so often for her diabetes Fay finds it hard to will her self to give herself another injection so she has not been getting the psoriasis medication. With examination today the psoriasis on her ankles and feet is much worse and she has very limited ankle mobility. She notes manual therapy techniques that mobilize her ankles and feet really help her and improve her feeling of circulation. Treatment will emphasize manual therapies as well as a home program for ankle mobility and flexibility , gait and balance training. Fay is a good candidate for PT Physical Therapy Plan Frequency and Duration Frequency of Treatment 1x/Week Duration of Treatment 12 Plan of Care Start Date 08/24/21 Plan of Care End Date 11/16/21 Therapeutic Interventions Therapeutic Interventions Balance Training,Gait Training ,Home Exercise Program,Joint Mobilizations,Manual Therapy, Patient/Caregiver Education, Self-Care/Home Management,Soft Tissue Mobilization, Therapeutic Exercises Next Visit Focus/Plan Next Note Type Treatment Note Next Visit Plan Begin working on ankle ROM and calf flexibility, give Fay a HEP for self care for her ankles and feet for ROM Plan of Care Dates Plan of Care Start Date 08/24/21 Plan of Care End Date 11/16/21 Electronically Signed by: Nidhi Villanueva, PT 08/30/21 1411 Please Sign and Return: I have reviewed this Plan of Care and certify that the skilled therapy services above are required to meet the patient?s needs. Physician Signature Date Printed Name and Credentials Clinical Instructor Signature Printed Name and Credentials
--- NOTE | 2021-08-30 14:23 | PT.OTN ---
Current Diagnoses Systemic sclerosis, unspecified (08/30/21) Unsteadiness on feet (08/30/21) Physical Therapy Treatment Note PT-OP-A Visit Information Start: 08/24/21 09:51 Freq: Status: Active Protocol: Document 08/30/21 14:16 [facility] (Rec: 08/30/21 14:22 [facility] [id number]) Out-Patient Physical Therapy Visit Information Visit Information Visit Type Treatment Note Visit Start Time 11:15 Visit Stop Time 12:00 Total Visit Minutes 45 Visit Number 2 PT-OP-B Current Condition Start: 08/24/21 09:51 Freq: Status: Active Protocol: Document 08/24/21 09:45 [facility] (Rec: 08/24/21 09:56 [facility] [id number]) Current Condition History of Current Condition 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 She also notes that despite going through pulmonary rehab she still feels short of breath all the time. 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, PHM also includes encephalopathy, hair loss, diabetes, [place] in 2019 with 2 stents placed Prior Treatments and Tests Pt has recieved PT in the past for ankle and foot ROM, balance, gait training, MFR and manual therapy techniques to improve ankle and foot mobility Treatment Goals Patient/Caregiver Goals Pts goals include improving ankle and foot mobility and decreasing stiffness and pain PT-OP-C Subjective Start: 08/24/21 09:51 Freq: Status: Active Protocol: Document 08/30/21 14:16 [facility] (Rec: 08/30/21 14:22 [facility] [id number]) OP-PT Subjective Patient Comments Patient Comments pt reports she did go to pulmonary rehab yesterday and was able to walk 20 minutes on the treadmill and 20 min on the seated biodex. She is doing the maintaince program through pulmonary rehab 2 days a week PT-OP-F Manual Assessment Start: 08/30/21 13:57 Freq: Status: Active Protocol: Document 08/24/21 09:45 [facility] (Rec: 08/30/21 14:01 [facility] [id number]) Manual Assessments Soft Tissue Assessment Soft Tissue Mobility Assessment scleraderma throughout the calf and plantar fascia making tissue mobililty very difficult. Pt responds well to MFR and manual stretching PT-OP-J Posture/Palpation/Skin Start: 08/24/21 09:51 Freq: Status: Active Protocol: Document 08/24/21 09:45 [facility] (Rec: 08/30/21 09:42 [facility] [id number]) Palpation Assessment Location plantar fascia Palpation Location bilateral plantar fascia Palpation Findings Soft Tissue Tightness, Tenderness Palpation Details guarded and tight plantar fascia bilaterally PT-OP-K Range of Motion Start: 08/24/21 09:51 Freq: Status: Active Protocol: Document 08/24/21 09:45 [facility] (Rec: 08/30/21 09:42 [facility] [id number]) Ankle and Foot Goniometric Range of Motion Ankle and Foot Right Dorsiflexion with Knee Flexed 2 Dorsiflexion with Knee Extended 2 Plantarflexion 6 Inversion 5 Eversion 4 Comments very poor limited ankle mobility Left Dorsiflexion with Knee Flexed 3 Dorsiflexion with Knee Extended 2 Plantarflexion 5 Inversion 5 Eversion 4 Comments very poor limited ankle mobility Ankle and Foot ROM Limitations ROM Limitations Soft Tissue Tightness, Contracture,Pain Comments pt is very limited in ankle and foot ROM, the scleroderma has restricted her joint ROM so much that she only has a few degrees in all planes for her ankle. I am able to mobilize her metatarsals with very limited ROM, tightness in the calf and and plantar fascia B also limits ROM PT-OP-Q Treatments Start: 08/30/21 14:15 Freq: Status: Active Protocol: Document 08/30/21 14:16 [facility] (Rec: 08/30/21 14:22 [facility] [id number]) Cardio Equipment Recumbent Elliptical (Biodex) Duration (Minutes) 20 Other pt did 20 min on biodex following manual treatment today Therapeutic Exercises Supine Exercises 4 way ankle Comments begin next visit ankle pumps Reps/Minutes x 20 Sitting Exercises diaphragmatic breathing Reps/Minutes x 4 min Comments encouraging Fay to inhale through her nose Manual Therapy Treatment Soft Tissue Mobilization B patellar tendon Body Location B Mobilization Type Cross-Friction Intensity/Depth Moderate Body Position Sitting Comments Long sitting Extra time spend over R patellar tendon to allow for elevation durign knee flexion. I can breath better. Manual Techniques 2 Type manual stretching for the gastroc/soleus complex Body Location B Body Position Sitting Comments long sitting 1 Type PROM stretches were performed at B ankles and feet, manual stretching Body Location B PF/ DF Body Position Sitting Comments improving ankle ROM with manual stretches PT-OP-T Assessment and Plan Start: 08/24/21 09:51 Freq: Status: Active Protocol: Document 08/30/21 14:16 [facility] (Rec: 08/30/21 14:22 [facility] [id number]) Physical Therapy Assessment Assessment Summary Assessment Fay often feels short of breath, started treatment today with diaphragmatic breathing in a seated position I worked on MFR work on the plantar fascia and calf musculature, manual ankle ROM all planes. Pt to work on rolling out her foot at home. She was able to do 20 min on the bike today following treatment Physical Therapy Plan Frequency and Duration Frequency of Treatment 1x/Week Duration of Treatment 12 Plan of Care Start Date 08/24/21 Plan of Care End Date 11/16/21 Therapeutic Interventions Therapeutic Interventions Balance Training,Gait Training ,Home Exercise Program,Joint Mobilizations,Manual Therapy, Patient/Caregiver Education, Self-Care/Home Management,Soft Tissue Mobilization, Therapeutic Exercises Next Visit Focus/Plan Next Note Type Treatment Note Next Visit Plan begin lateral hip stabilization exercises with either clam shells or supine hip ER with band, continue working on ankle and foot mobility with manual techniques, add in standing calf stretch and balance exercises
--- NOTE | 2021-09-05 17:23 | PT.OTN ---
Current Diagnoses Systemic sclerosis, unspecified (09/05/21) Unsteadiness on feet (09/05/21) Physical Therapy Treatment Note PT-OP-A Visit Information Start: 08/24/21 09:51 Freq: Status: Active Protocol: Document 09/05/21 15:15 [facility] (Rec: 09/05/21 15:22 [facility] [id number]) Out-Patient Physical Therapy Visit Information Visit Information Visit Type Aquatic Treatment Note Visit Start Time 15:15 Visit Stop Time 16:00 Total Visit Minutes 45 Visit Number 3 PT-OP-B Current Condition Start: 08/24/21 09:51 Freq: Status: Active Protocol: Document 08/24/21 09:45 [facility] (Rec: 08/24/21 09:56 [facility] [id number]) Current Condition History of Current Condition 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 She also notes that despite going through pulmonary rehab she still feels short of breath all the time. 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, PHM also includes encephalopathy, hair loss, diabetes, [place] in 2019 with 2 stents placed Prior Treatments and Tests Pt has recieved PT in the past for ankle and foot ROM, balance, gait training, MFR and manual therapy techniques to improve ankle and foot mobility Treatment Goals Patient/Caregiver Goals Pts goals include improving ankle and foot mobility and decreasing stiffness and pain PT-OP-C Subjective Start: 08/24/21 09:51 Freq: Status: Active Protocol: Document 09/05/21 15:15 [facility] (Rec: 09/05/21 15:22 [facility] [id number]) OP-PT Subjective Patient Comments Patient Comments Fay reports she did her pulmonary rehab before PT today. She feels more fatigued today. She did the UBE at pulmonary rehab x 20 minutes and the treadmill x 10 minutes. She felt very tired afterwards. PT also reports the deep prep massage cream really helps her skin on her feet and she feels more circulation following PT Patient Reported Progress Improving PT-OP-F Manual Assessment Start: 08/30/21 13:57 Freq: Status: Active Protocol: Document 08/24/21 09:45 [facility] (Rec: 08/30/21 14:01 [facility] [id number]) Manual Assessments Soft Tissue Assessment Soft Tissue Mobility Assessment scleraderma throughout the calf and plantar fascia making tissue mobililty very difficult. Pt responds well to MFR and manual stretching PT-OP-J Posture/Palpation/Skin Start: 08/24/21 09:51 Freq: Status: Active Protocol: Document 08/24/21 09:45 [facility] (Rec: 08/30/21 09:42 [facility] [id number]) Palpation Assessment Location plantar fascia Palpation Location bilateral plantar fascia Palpation Findings Soft Tissue Tightness, Tenderness Palpation Details guarded and tight plantar fascia bilaterally PT-OP-K Range of Motion Start: 08/24/21 09:51 Freq: Status: Active Protocol: Document 08/24/21 09:45 [facility] (Rec: 08/30/21 09:42 [facility] [id number]) Ankle and Foot Goniometric Range of Motion Ankle and Foot Right Dorsiflexion with Knee Flexed 2 Dorsiflexion with Knee Extended 2 Plantarflexion 6 Inversion 5 Eversion 4 Comments very poor limited ankle mobility Left Dorsiflexion with Knee Flexed 3 Dorsiflexion with Knee Extended 2 Plantarflexion 5 Inversion 5 Eversion 4 Comments very poor limited ankle mobility Ankle and Foot ROM Limitations ROM Limitations Soft Tissue Tightness, Contracture,Pain Comments pt is very limited in ankle and foot ROM, the scleroderma has restricted her joint ROM so much that she only has a few degrees in all planes for her ankle. I am able to mobilize her metatarsals with very limited ROM, tightness in the calf and and plantar fascia B also limits ROM PT-OP-Q Treatments Start: 08/30/21 14:15 Freq: Status: Active Protocol: Document 09/05/21 15:15 [facility] (Rec: 09/05/21 17:20 [facility] [id number]) Therapeutic Exercises Supine Exercises 4 way ankle Equipment Used level 1 TB Reps/Minutes 3 x 10 reps each direction ankle pumps Reps/Minutes x 20 Sitting Exercises diaphragmatic breathing Reps/Minutes x 4 min Comments encouraging Fay to inhale through her nose Manual Therapy Treatment Soft Tissue Mobilization B patellar tendon Body Location B Mobilization Type Cross-Friction Intensity/Depth Moderate Body Position Sitting Comments Long sitting Extra time spend over R patellar tendon to allow for elevation durign knee flexion. I can breath better. 1 Body Location B anterior and posterior shins /feet Mobilization Type Myofascial Release Intensity/Depth Superficial Body Position long sitting (rolled towel under B ischial tuberosities) Comments MFR was performed to B anterior and posterior shins and feet, PROM was performed at the ankles and feet Joint Mobilizations MTPs, intertarsals, calcaneus on talus/navicular Joint B Direction AP, med/lat Grade II Body Position Sitting Comments long sitting thoracic spine Joint PA glides in sitting Direction PA Grade II Body Position Sitting Comments pt had good tolerance today for seated thoracic mobilizations Manual Techniques 2 Type manual stretching for the gastroc/soleus complex Body Location B Body Position Sitting Comments long sitting 1 Type PROM stretches were performed at B ankles and feet, manual stretching Body Location B PF/ DF Body Position Sitting Comments improving ankle ROM with manual stretches PT-OP-T Assessment and Plan Start: 08/24/21 09:51 Freq: Status: Active Protocol: Document 09/05/21 15:15 [facility] (Rec: 09/05/21 17:20 [facility] [id number]) Physical Therapy Assessment Goals 3 Impairment LE, foot and ankle pain rated 7/10 Institutional Asset Manager Goal (LTG) With manual therapy techniques , ROM exercises, stretches, and mobility exercises Fay has a reduction in pain by 2-3 numbers on the pain scale LTG Duration 12 weeks 2 Impairment B Calf and plantar fascia tightness and pain limiting pts ability to walk Short Term Goal (STG) Fay is educated on stretches and manual techniques she can do at home to help with plantar fascia and calf tightness STG Duration 4 weeks Institutional Asset Manager Goal (LTG) Fay notes a overall reduction in tightness decreasing her pain with walking LTG Duration 12 weeks 1 Impairment Poor ankle and foot ROM affecting balance and gait Institutional Asset Manager Goal (LTG) Fay is able to improve her ankle ROM by 5 degrees into DF to assist with gait and balance LTG Duration 12 weeks Assessment Summary Assessment Fay is doing but pulmonary rehab as well as PT. 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 Her tissue in her legs and feet is very scared and has restricted mobility. I am encouraging her to work on her ankle mobility exercises at home and Fay also has a ball to roll her foot on at home. Due to shortness of breath I also work on thoracic mobility in sitting and diaphragmatic breathing. Fay often does the biodex or treadmill following treatment but today didn't due that since she had pulmonary rehab prior. Physical Therapy Plan Frequency and Duration Frequency of Treatment 1x/Week Duration of Treatment 12 Plan of Care Start Date 08/24/21 Plan of Care End Date 11/16/21 Therapeutic Interventions Therapeutic Interventions Balance Training,Gait Training ,Home Exercise Program,Joint Mobilizations,Manual Therapy, Patient/Caregiver Education, Self-Care/Home Management,Soft Tissue Mobilization, Therapeutic Exercises Next Visit Focus/Plan Next Note Type Treatment Note Next Visit Plan add in supine hip abduction with theraband, check lateral malleolus B as it looked as if a pressure sore was forming. Fay had on fuzzy socks and I talked to her about switching her socks for walking on the treadmill as the fuzzy ones may cause too much friction. Continue working on ankle and foot mobility and manual therapy treatments for improved ROM/mobility
--- NOTE | 2021-09-12 18:11 | PT.OTN ---
Current Diagnoses Systemic sclerosis, unspecified (09/12/21) Unsteadiness on feet (09/12/21) Physical Therapy Treatment Note PT-OP-A Visit Information Start: 08/24/21 09:51 Freq: Status: Active Protocol: Document 09/12/21 10:35 [facility] (Rec: 09/12/21 18:07 ON LICENSE OF [facility] [id number]) Out-Patient Physical Therapy Visit Information Visit Information Visit Type Treatment Note Visit Start Time 10:35 Visit Stop Time 11:35 Total Visit Minutes 45 Visit Number 4 PT-OP-B Current Condition Start: 08/24/21 09:51 Freq: Status: Active Protocol: Document 08/24/21 09:45 [facility] (Rec: 08/24/21 09:56 [facility] [id number]) Current Condition History of Current Condition 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 She also notes that despite going through pulmonary rehab she still feels short of breath all the time. 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, PHM also includes encephalopathy, hair loss, diabetes, [place] in 2019 with 2 stents placed Prior Treatments and Tests Pt has recieved PT in the past for ankle and foot ROM, balance, gait training, MFR and manual therapy techniques to improve ankle and foot mobility Treatment Goals Patient/Caregiver Goals Pts goals include improving ankle and foot mobility and decreasing stiffness and pain PT-OP-C Subjective Start: 08/24/21 09:51 Freq: Status: Active Protocol: Document 09/12/21 10:35 [facility] (Rec: 09/12/21 18:10 ON LICENSE OF [facility] [id number]) OP-PT Subjective Patient Comments Patient Comments Fay reports feeling very rushed today with the roads being icy and snow where she lives. She has a question about 3 spots on her feet today PT-OP-F Manual Assessment Start: 08/30/21 13:57 Freq: Status: Active Protocol: Document 08/24/21 09:45 ON LICENSE OF [facility] (Rec: 08/30/21 14:01 ON LICENSE OF [facility] [id number]) Manual Assessments Soft Tissue Assessment Soft Tissue Mobility Assessment scleraderma throughout the calf and plantar fascia making tissue mobililty very difficult. Pt responds well to MFR and manual stretching PT-OP-J Posture/Palpation/Skin Start: 08/24/21 09:51 Freq: Status: Active Protocol: Document 08/24/21 09:45 [facility] (Rec: 08/30/21 09:42 ON LICENSE OF [facility] [id number]) Palpation Assessment Location plantar fascia Palpation Location bilateral plantar fascia Palpation Findings Soft Tissue Tightness, Tenderness Palpation Details guarded and tight plantar fascia bilaterally PT-OP-K Range of Motion Start: 08/24/21 09:51 Freq: Status: Active Protocol: Document 08/24/21 09:45 [facility] (Rec: 08/30/21 09:42 ON LICENSE OF [facility] [id number]) Ankle and Foot Goniometric Range of Motion Ankle and Foot Right Dorsiflexion with Knee Flexed 2 Dorsiflexion with Knee Extended 2 Plantarflexion 6 Inversion 5 Eversion 4 Comments very poor limited ankle mobility Left Dorsiflexion with Knee Flexed 3 Dorsiflexion with Knee Extended 2 Plantarflexion 5 Inversion 5 Eversion 4 Comments very poor limited ankle mobility Ankle and Foot ROM Limitations ROM Limitations Soft Tissue Tightness, Contracture,Pain Comments pt is very limited in ankle and foot ROM, the scleroderma has restricted her joint ROM so much that she only has a few degrees in all planes for her ankle. I am able to mobilize her metatarsals with very limited ROM, tightness in the calf and and plantar fascia B also limits ROM PT-OP-Q Treatments Start: 08/30/21 14:15 Freq: Status: Active Protocol: Document 09/12/21 10:35 [facility] (Rec: 09/12/21 18:10 ON LICENSE OF [facility] [id number]) Cardio Equipment Recumbent Elliptical (Biodex) Duration (Minutes) 10 Other pt did 10 min on biodex following manual treatment today Manual Therapy Treatment Soft Tissue Mobilization B patellar tendon Body Location B Mobilization Type Cross-Friction Intensity/Depth Moderate Body Position Sitting Comments Long sitting Extra time spend over R patellar tendon to allow for elevation durign knee flexion. I can breath better. Joint Mobilizations MTPs, intertarsals, calcaneus on talus/navicular Joint B Direction AP, med/lat Grade II Body Position Sitting Comments long sitting thoracic spine Joint PA glides in sitting Direction PA Grade II Body Position Sitting Comments pt had good tolerance today for seated thoracic mobilizations Patella mobes Joint B Direction med/lat/sup/inf Grade II Body Position Sitting Comments Long sitting. PT-OP-T Assessment and Plan Start: 08/24/21 09:51 Freq: Status: Active Protocol: Document 09/12/21 10:35 ON LICENSE OF [facility] (Rec: 09/12/21 18:10 ON LICENSE OF [facility] [id number]) Physical Therapy Assessment Assessment Summary Assessment Fay did have a area on the right lateral mallelous that looks like a pressure sore, also three spots on the left plantar aspect of her foot that look red. Fay has her appt with her foot doctor next week. Physical Therapy Plan Frequency and Duration Frequency of Treatment 1x/Week Duration of Treatment 12 Plan of Care Start Date 08/24/21 Plan of Care End Date 11/16/21 Therapeutic Interventions Therapeutic Interventions Balance Training,Gait Training ,Home Exercise Program,Joint Mobilizations,Manual Therapy, Patient/Caregiver Education, Self-Care/Home Management,Soft Tissue Mobilization, Therapeutic Exercises Next Visit Focus/Plan Next Note Type Treatment Note Next Visit Plan add in supine hip abduction with theraband, check lateral malleolus B as it looked as if a pressure sore was forming. Fay had on fuzzy socks and I talked to her about switching her socks for walking on the treadmill as the fuzzy ones may cause too much friction. Continue working on ankle and foot mobility and manual therapy treatments for improved ROM/mobility
--- NOTE | 2021-09-14 13:00 | PT.OTN ---
Current Diagnoses Systemic sclerosis, unspecified (09/14/21) Unsteadiness on feet (09/14/21) Physical Therapy Treatment Note PT-OP-A Visit Information Start: 08/24/21 09:51 Freq: Status: Active Protocol: Document 09/14/21 12:57 [facility] (Rec: 09/14/21 13:00 [facility] [id number]) Out-Patient Physical Therapy Visit Information Visit Information Visit Type Treatment Note Visit Start Time 11:15 Visit Stop Time 12:00 Total Visit Minutes 45 Visit Number 5 PT-OP-B Current Condition Start: 08/24/21 09:51 Freq: Status: Active Protocol: Document 08/24/21 09:45 [facility] (Rec: 08/24/21 09:56 [facility] [id number]) Current Condition History of Current Condition 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 She also notes that despite going through pulmonary rehab she still feels short of breath all the time. 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, PHM also includes encephalopathy, hair loss, diabetes, [place] in 2019 with 2 stents placed Prior Treatments and Tests Pt has recieved PT in the past for ankle and foot ROM, balance, gait training, MFR and manual therapy techniques to improve ankle and foot mobility Treatment Goals Patient/Caregiver Goals Pts goals include improving ankle and foot mobility and decreasing stiffness and pain PT-OP-C Subjective Start: 08/24/21 09:51 Freq: Status: Active Protocol: Document 09/14/21 12:57 [facility] (Rec: 09/14/21 13:00 [facility] [id number]) OP-PT Subjective Patient Comments Patient Comments Fay reports she was able to do 40 minutes of cardio yesterday at pulmonary rehab. PT-OP-F Manual Assessment Start: 08/30/21 13:57 Freq: Status: Active Protocol: Document 08/24/21 09:45 [facility] (Rec: 08/30/21 14:01 [facility] [id number]) Manual Assessments Soft Tissue Assessment Soft Tissue Mobility Assessment scleraderma throughout the calf and plantar fascia making tissue mobililty very difficult. Pt responds well to MFR and manual stretching PT-OP-J Posture/Palpation/Skin Start: 08/24/21 09:51 Freq: Status: Active Protocol: Document 08/24/21 09:45 [facility] (Rec: 08/30/21 09:42 [facility] [id number]) Palpation Assessment Location plantar fascia Palpation Location bilateral plantar fascia Palpation Findings Soft Tissue Tightness, Tenderness Palpation Details guarded and tight plantar fascia bilaterally PT-OP-K Range of Motion Start: 08/24/21 09:51 Freq: Status: Active Protocol: Document 08/24/21 09:45 [facility] (Rec: 08/30/21 09:42 [facility] [id number]) Ankle and Foot Goniometric Range of Motion Ankle and Foot Right Dorsiflexion with Knee Flexed 2 Dorsiflexion with Knee Extended 2 Plantarflexion 6 Inversion 5 Eversion 4 Comments very poor limited ankle mobility Left Dorsiflexion with Knee Flexed 3 Dorsiflexion with Knee Extended 2 Plantarflexion 5 Inversion 5 Eversion 4 Comments very poor limited ankle mobility Ankle and Foot ROM Limitations ROM Limitations Soft Tissue Tightness, Contracture,Pain Comments pt is very limited in ankle and foot ROM, the scleroderma has restricted her joint ROM so much that she only has a few degrees in all planes for her ankle. I am able to mobilize her metatarsals with very limited ROM, tightness in the calf and and plantar fascia B also limits ROM PT-OP-Q Treatments Start: 08/30/21 14:15 Freq: Status: Active Protocol: Document 09/14/21 12:57 [facility] (Rec: 09/14/21 13:00 [facility] [id number]) Therapeutic Exercises Supine Exercises ankle pumps Reps/Minutes x 20 Manual Therapy Treatment Soft Tissue Mobilization B patellar tendon Body Location B Mobilization Type Cross-Friction Intensity/Depth Moderate Body Position Sitting Comments Long sitting Extra time spend over R patellar tendon to allow for elevation durign knee flexion. I can breath better. 1 Body Location B anterior and posterior shins /feet Mobilization Type Myofascial Release Intensity/Depth Superficial Body Position long sitting (rolled towel under B ischial tuberosities) Comments MFR was performed to B anterior and posterior shins and feet, PROM was performed at the ankles and feet Joint Mobilizations MTPs, intertarsals, calcaneus on talus/navicular Joint B Direction AP, med/lat Grade II Body Position Sitting Comments long sitting thoracic spine Joint PA glides in sitting Direction PA Grade II Body Position Sitting Comments pt had good tolerance today for seated thoracic mobilizations Manual Techniques 2 Type manual stretching for the gastroc/soleus complex Body Location B Body Position Sitting Comments long sitting 1 Type PROM stretches were performed at B ankles and feet, manual stretching Body Location B PF/ DF Body Position Sitting Comments improving ankle ROM with manual stretches PT-OP-T Assessment and Plan Start: 08/24/21 09:51 Freq: Status: Active Protocol: Document 09/14/21 12:57 [facility] (Rec: 09/14/21 13:00 [facility] [id number]) Physical Therapy Assessment Assessment Summary Assessment Fay had on better socks today to help avoid pressure sores on the lateral malleolus. She has three red spots on the bottom of her L foot. She will see her foot doctor next week Physical Therapy Plan Frequency and Duration Frequency of Treatment 1x/Week Duration of Treatment 12 Plan of Care Start Date 08/24/21 Plan of Care End Date 11/16/21 Therapeutic Interventions Therapeutic Interventions Balance Training,Gait Training ,Home Exercise Program,Joint Mobilizations,Manual Therapy, Patient/Caregiver Education, Self-Care/Home Management,Soft Tissue Mobilization, Therapeutic Exercises Next Visit Focus/Plan Next Note Type Treatment Note Next Visit Plan add in supine hip abduction with theraband, check lateral malleolus B as it looked as if a pressure sore was forming. Fay had on fuzzy socks and I talked to her about switching her socks for walking on the treadmill as the fuzzy ones may cause too much friction. Continue working on ankle and foot mobility and manual therapy treatments for improved ROM/mobility
--- NOTE | 2021-09-21 15:38 | PT.OTN ---
Current Diagnoses Systemic sclerosis, unspecified (09/21/21) Unsteadiness on feet (09/21/21) Physical Therapy Treatment Note PT-OP-A Visit Information Start: 08/24/21 09:51 Freq: Status: Active Protocol: Document 09/21/21 13:02 [facility] (Rec: 09/21/21 13:03 [facility] [id number]) Out-Patient Physical Therapy Visit Information Visit Information Visit Type Treatment Note Visit Start Time 13:00 Visit Stop Time 13:45 Total Visit Minutes 45 Visit Number 6 PT-OP-B Current Condition Start: 08/24/21 09:51 Freq: Status: Active Protocol: Document 08/24/21 09:45 [facility] (Rec: 08/24/21 09:56 [facility] [id number]) Current Condition History of Current Condition 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 She also notes that despite going through pulmonary rehab she still feels short of breath all the time. 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, PHM also includes encephalopathy, hair loss, diabetes, [place] in 2019 with 2 stents placed Prior Treatments and Tests Pt has recieved PT in the past for ankle and foot ROM, balance, gait training, MFR and manual therapy techniques to improve ankle and foot mobility Treatment Goals Patient/Caregiver Goals Pts goals include improving ankle and foot mobility and decreasing stiffness and pain PT-OP-C Subjective Start: 08/24/21 09:51 Freq: Status: Active Protocol: Document 09/21/21 13:02 [facility] (Rec: 09/21/21 13:03 [facility] [id number]) OP-PT Subjective Patient Comments Patient Comments pt comes in to PT today with a limp as she states she has a ingrown toenail. She has a appt today at 4:00 for her foot doctor PT-OP-F Manual Assessment Start: 08/30/21 13:57 Freq: Status: Active Protocol: Document 08/24/21 09:45 [facility] (Rec: 08/30/21 14:01 [facility] [id number]) Manual Assessments Soft Tissue Assessment Soft Tissue Mobility Assessment scleraderma throughout the calf and plantar fascia making tissue mobililty very difficult. Pt responds well to MFR and manual stretching PT-OP-J Posture/Palpation/Skin Start: 08/24/21 09:51 Freq: Status: Active Protocol: Document 08/24/21 09:45 [facility] (Rec: 08/30/21 09:42 [facility] [id number]) Palpation Assessment Location plantar fascia Palpation Location bilateral plantar fascia Palpation Findings Soft Tissue Tightness, Tenderness Palpation Details guarded and tight plantar fascia bilaterally PT-OP-K Range of Motion Start: 08/24/21 09:51 Freq: Status: Active Protocol: Document 08/24/21 09:45 [facility] (Rec: 08/30/21 09:42 [facility] [id number]) Ankle and Foot Goniometric Range of Motion Ankle and Foot Right Dorsiflexion with Knee Flexed 2 Dorsiflexion with Knee Extended 2 Plantarflexion 6 Inversion 5 Eversion 4 Comments very poor limited ankle mobility Left Dorsiflexion with Knee Flexed 3 Dorsiflexion with Knee Extended 2 Plantarflexion 5 Inversion 5 Eversion 4 Comments very poor limited ankle mobility Ankle and Foot ROM Limitations ROM Limitations Soft Tissue Tightness, Contracture,Pain Comments pt is very limited in ankle and foot ROM, the scleroderma has restricted her joint ROM so much that she only has a few degrees in all planes for her ankle. I am able to mobilize her metatarsals with very limited ROM, tightness in the calf and and plantar fascia B also limits ROM PT-OP-Q Treatments Start: 08/30/21 14:15 Freq: Status: Active Protocol: Document 09/21/21 13:00 [facility] (Rec: 09/21/21 14:26 [facility] [id number]) Manual Therapy Treatment Soft Tissue Mobilization B patellar tendon Body Location B Mobilization Type Cross-Friction Intensity/Depth Moderate Body Position Sitting Comments Long sitting Extra time spend over R patellar tendon to allow for elevation durign knee flexion. I can breath better. Joint Mobilizations MTPs, intertarsals, calcaneus on talus/navicular Joint B Direction AP, med/lat Grade II Body Position Sitting Comments long sitting Manual Techniques 2 Type manual stretching for the gastroc/soleus complex Body Location B Body Position Sitting Comments long sitting 1 Type PROM stretches were performed at B ankles and feet, manual stretching Body Location B PF/ DF Body Position Sitting Comments improving ankle ROM with manual stretches PT-OP-T Assessment and Plan Start: 08/24/21 09:51 Freq: Status: Active Protocol: Document 09/21/21 13:00 [facility] (Rec: 09/21/21 14:26 [facility] [id number]) Physical Therapy Assessment Assessment Summary Assessment Fay did restart her medication of psoriasis however she was two months over due so her skin break down is currently quite a bit. She has to give herself an injection that is painful for her so she avoided doing it. I have asked her to ask her pcb design engineer if he can administer the injection as it is once every 3 months. She had a good amount of hot spots on her feet today that she will show her foot doctor this afternoon. Treatment was limited today due to pain in her great toe on the left with ingrown toenail Physical Therapy Plan Frequency and Duration Frequency of Treatment 1x/Week Duration of Treatment 12 Plan of Care Start Date 08/24/21 Plan of Care End Date 11/16/21 Therapeutic Interventions Therapeutic Interventions Balance Training,Gait Training ,Home Exercise Program,Joint Mobilizations,Manual Therapy, Patient/Caregiver Education, Self-Care/Home Management,Soft Tissue Mobilization, Therapeutic Exercises Next Visit Focus/Plan Next Note Type Treatment Note Next Visit Plan continue progressing ankle ROM and mobility, plantar fascia relief B, cardio conditioning and strength
--- NOTE | 2021-09-26 17:07 | PT.OTN ---
Current Diagnoses Systemic sclerosis, unspecified (09/26/21) Unsteadiness on feet (09/26/21) Physical Therapy Treatment Note PT-OP-A Visit Information Start: 08/24/21 09:51 Freq: Status: Active Protocol: Document 09/26/21 16:06 [facility] (Rec: 09/26/21 17:07 [facility] [id number]) Out-Patient Physical Therapy Visit Information Visit Information Visit Type Treatment Note Visit Start Time 16:00 Visit Stop Time 16:45 Total Visit Minutes 45 Visit Number 7 PT-OP-B Current Condition Start: 08/24/21 09:51 Freq: Status: Active Protocol: Document 08/24/21 09:45 [facility] (Rec: 08/24/21 09:56 [facility] [id number]) Current Condition History of Current Condition 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 She also notes that despite going through pulmonary rehab she still feels short of breath all the time. 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, PHM also includes encephalopathy, hair loss, diabetes, [place] in 2019 with 2 stents placed Prior Treatments and Tests Pt has recieved PT in the past for ankle and foot ROM, balance, gait training, MFR and manual therapy techniques to improve ankle and foot mobility Treatment Goals Patient/Caregiver Goals Pts goals include improving ankle and foot mobility and decreasing stiffness and pain PT-OP-C Subjective Start: 08/24/21 09:51 Freq: Status: Active Protocol: Document 09/26/21 16:06 [facility] (Rec: 09/26/21 17:07 [facility] [id number]) OP-PT Subjective Patient Comments Patient Comments Fay saw her foot doctor and had her toenail worked on so she is feeling a little better in her toe PT-OP-F Manual Assessment Start: 08/30/21 13:57 Freq: Status: Active Protocol: Document 08/24/21 09:45 [facility] (Rec: 08/30/21 14:01 [facility] [id number]) Manual Assessments Soft Tissue Assessment Soft Tissue Mobility Assessment scleraderma throughout the calf and plantar fascia making tissue mobililty very difficult. Pt responds well to MFR and manual stretching PT-OP-J Posture/Palpation/Skin Start: 08/24/21 09:51 Freq: Status: Active Protocol: Document 08/24/21 09:45 [facility] (Rec: 08/30/21 09:42 [facility] [id number]) Palpation Assessment Location plantar fascia Palpation Location bilateral plantar fascia Palpation Findings Soft Tissue Tightness, Tenderness Palpation Details guarded and tight plantar fascia bilaterally PT-OP-K Range of Motion Start: 08/24/21 09:51 Freq: Status: Active Protocol: Document 08/24/21 09:45 [facility] (Rec: 08/30/21 09:42 [facility] [id number]) Ankle and Foot Goniometric Range of Motion Ankle and Foot Right Dorsiflexion with Knee Flexed 2 Dorsiflexion with Knee Extended 2 Plantarflexion 6 Inversion 5 Eversion 4 Comments very poor limited ankle mobility Left Dorsiflexion with Knee Flexed 3 Dorsiflexion with Knee Extended 2 Plantarflexion 5 Inversion 5 Eversion 4 Comments very poor limited ankle mobility Ankle and Foot ROM Limitations ROM Limitations Soft Tissue Tightness, Contracture,Pain Comments pt is very limited in ankle and foot ROM, the scleroderma has restricted her joint ROM so much that she only has a few degrees in all planes for her ankle. I am able to mobilize her metatarsals with very limited ROM, tightness in the calf and and plantar fascia B also limits ROM PT-OP-Q Treatments Start: 08/30/21 14:15 Freq: Status: Active Protocol: Document 09/26/21 16:06 [facility] (Rec: 09/26/21 17:07 [facility] [id number]) Manual Therapy Treatment Soft Tissue Mobilization B patellar tendon Body Location B Mobilization Type Cross-Friction Intensity/Depth Moderate Body Position Sitting Comments Long sitting Extra time spend over R patellar tendon to allow for elevation durign knee flexion. I can breath better. 1 Body Location B anterior and posterior shins /feet Mobilization Type Myofascial Release Intensity/Depth Superficial Body Position long sitting (rolled towel under B ischial tuberosities) Comments MFR was performed to B anterior and posterior shins and feet, PROM was performed at the ankles and feet Joint Mobilizations MTPs, intertarsals, calcaneus on talus/navicular Joint B Direction AP, med/lat Grade II Body Position Sitting Comments long sitting thoracic spine Joint PA glides in sitting Direction PA Grade II Body Position Sitting Comments pt had good tolerance today for seated thoracic mobilizations, worked on deep breaths during throacic mobilizations Manual Techniques 2 Type manual stretching for the gastroc/soleus complex Body Location B Body Position Sitting Comments long sitting 1 Type PROM stretches were performed at B ankles and feet, manual stretching Body Location B PF/ DF Body Position Sitting Comments improving ankle ROM with manual stretches PT-OP-T Assessment and Plan Start: 08/24/21 09:51 Freq: Status: Active Protocol: Document 09/26/21 16:06 [facility] (Rec: 09/26/21 17:07 [facility] [id number]) Physical Therapy Assessment Assessment Summary Assessment Fay had seen her foot doctor and she had her ingrown toenail cut back but she was still very sore today at her great toe on the left. She did not go to pulmonary rehab today as she felt walking would increase pain. We are focusing on ankle ROM, calf flexibility and manual work to help relieve tightness in her feet and ankles. The psoriasis is still very active , she did have her injection to help this however it was 3 months late. There are a few areas on the left plantar surface of her foot that are red and I try to avoid these areas. Physical Therapy Plan Frequency and Duration Frequency of Treatment 1x/Week Duration of Treatment 12 Plan of Care Start Date 08/24/21 Plan of Care End Date 11/16/21 Therapeutic Interventions Therapeutic Interventions Balance Training,Gait Training ,Home Exercise Program,Joint Mobilizations,Manual Therapy, Patient/Caregiver Education, Self-Care/Home Management,Soft Tissue Mobilization, Therapeutic Exercises Next Visit Focus/Plan Next Note Type Treatment Note Next Visit Plan continue progressing ankle ROM and mobility, plantar fascia relief B, cardio conditioning and strength
--- NOTE | 2021-09-29 13:46 | PT.OTN ---
Current Diagnoses Systemic sclerosis, unspecified (09/29/21) Unsteadiness on feet (09/29/21) Physical Therapy Treatment Note PT-OP-A Visit Information Start: 08/24/21 09:51 Freq: Status: Active Protocol: Document 09/29/21 11:51 [facility] (Rec: 09/29/21 13:45 [facility] [id number]) Out-Patient Physical Therapy Visit Information Visit Information Visit Type Treatment Note Visit Start Time 11:55 Visit Stop Time 12:50 Total Visit Minutes 55 Visit Number 8 Number of CONDENSER CLEANER Visits 1 PT-OP-B Current Condition Start: 08/24/21 09:51 Freq: Status: Active Protocol: Document 08/24/21 09:45 [facility] (Rec: 08/24/21 09:56 [facility] [id number]) Current Condition History of Current Condition 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 She also notes that despite going through pulmonary rehab she still feels short of breath all the time. 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, PHM also includes encephalopathy, hair loss, diabetes, [place] in 2019 with 2 stents placed Prior Treatments and Tests Pt has recieved PT in the past for ankle and foot ROM, balance, gait training, MFR and manual therapy techniques to improve ankle and foot mobility Treatment Goals Patient/Caregiver Goals Pts goals include improving ankle and foot mobility and decreasing stiffness and pain PT-OP-C Subjective Start: 08/24/21 09:51 Freq: Status: Active Protocol: Document 09/29/21 11:51 [facility] (Rec: 09/29/21 13:45 [facility] [id number]) OP-PT Subjective Patient Comments Patient Comments Fay states her L toe is still sore and she woke up late today so she is a little out of breath from running around getting ready PT-OP-F Manual Assessment Start: 08/30/21 13:57 Freq: Status: Active Protocol: Document 08/24/21 09:45 [facility] (Rec: 08/30/21 14:01 [facility] [id number]) Manual Assessments Soft Tissue Assessment Soft Tissue Mobility Assessment scleraderma throughout the calf and plantar fascia making tissue mobililty very difficult. Pt responds well to MFR and manual stretching PT-OP-J Posture/Palpation/Skin Start: 08/24/21 09:51 Freq: Status: Active Protocol: Document 08/24/21 09:45 [facility] (Rec: 08/30/21 09:42 [facility] [id number]) Palpation Assessment Location plantar fascia Palpation Location bilateral plantar fascia Palpation Findings Soft Tissue Tightness, Tenderness Palpation Details guarded and tight plantar fascia bilaterally PT-OP-K Range of Motion Start: 08/24/21 09:51 Freq: Status: Active Protocol: Document 08/24/21 09:45 [facility] (Rec: 08/30/21 09:42 [facility] [id number]) Ankle and Foot Goniometric Range of Motion Ankle and Foot Right Dorsiflexion with Knee Flexed 2 Dorsiflexion with Knee Extended 2 Plantarflexion 6 Inversion 5 Eversion 4 Comments very poor limited ankle mobility Left Dorsiflexion with Knee Flexed 3 Dorsiflexion with Knee Extended 2 Plantarflexion 5 Inversion 5 Eversion 4 Comments very poor limited ankle mobility Ankle and Foot ROM Limitations ROM Limitations Soft Tissue Tightness, Contracture,Pain Comments pt is very limited in ankle and foot ROM, the scleroderma has restricted her joint ROM so much that she only has a few degrees in all planes for her ankle. I am able to mobilize her metatarsals with very limited ROM, tightness in the calf and and plantar fascia B also limits ROM PT-OP-Q Treatments Start: 08/30/21 14:15 Freq: Status: Active Protocol: Document 09/29/21 11:51 [facility] (Rec: 09/29/21 13:45 [facility] [id number]) Manual Therapy Treatment Soft Tissue Mobilization 1 Body Location B anterior and posterior shins /feet Mobilization Type Myofascial Release Intensity/Depth Superficial Body Position long sitting (rolled towel under B ischial tuberosities) Comments MFR was performed to B anterior and posterior shins and feet, PROM was performed at the ankles and feet Joint Mobilizations MTPs, intertarsals, calcaneus on talus/navicular Joint B Direction AP, med/lat Grade II Body Position Sitting Comments long sitting Patella mobes Joint B Direction med/lat/sup/inf Grade II Body Position Sitting Comments Long sitting. Manual Techniques 2 Type manual stretching for the gastroc/soleus complex Body Location B Body Position Sitting Comments long sitting 1 Type PROM stretches were performed at B ankles and feet, manual stretching Body Location B PF/ DF, IV/EV Body Position Sitting Comments improving ankle ROM with manual stretches PT-OP-T Assessment and Plan Start: 08/24/21 09:51 Freq: Status: Active Protocol: Document 09/29/21 11:51 [facility] (Rec: 09/29/21 13:45 [facility] [id number]) Physical Therapy Assessment Goals 3 Impairment LE, foot and ankle pain rated 7/10 Jail Goal (LTG) With manual therapy techniques , ROM exercises, stretches, and mobility exercises Fay has a reduction in pain by 2-3 numbers on the pain scale LTG Duration 12 weeks 2 Impairment B Calf and plantar fascia tightness and pain limiting pts ability to walk Short Term Goal (STG) Fay is educated on stretches and manual techniques she can do at home to help with plantar fascia and calf tightness STG Duration 4 weeks Foam Rubber Curer Goal (LTG) Fay notes a overall reduction in tightness decreasing her pain with walking LTG Duration 12 weeks 1 Impairment Poor ankle and foot ROM affecting balance and gait Foam Rubber Curer Goal (LTG) Fay is able to improve her ankle ROM by 5 degrees into DF to assist with gait and balance LTG Duration 12 weeks Assessment Summary Assessment After manual work to bhavna LEs, Fay states she feels so much looser my shoes almost feel too big!. Pt is able to improve bhavna ankle ROM after STM and jt mobs. She has only a few sore along [place] this session that CONDENSER CLEANER avoids from her psoriasis. After PT appt, pt has pulmonary rehab today. Physical Therapy Plan Frequency and Duration Frequency of Treatment 1x/Week Duration of Treatment 12 Plan of Care Start Date 08/24/21 Plan of Care End Date 11/16/21 Therapeutic Interventions Therapeutic Interventions Balance Training,Gait Training ,Home Exercise Program,Joint Mobilizations,Manual Therapy, Patient/Caregiver Education, Self-Care/Home Management,Soft Tissue Mobilization, Therapeutic Exercises Next Visit Focus/Plan Next Note Type Treatment Note Next Visit Plan continue progressing ankle ROM and mobility, plantar fascia relief B, cardio conditioning and strength
--- NOTE | 2021-10-03 18:10 | PT.OTN ---
Current Diagnoses Systemic sclerosis, unspecified (10/03/21) Unsteadiness on feet (10/03/21) Physical Therapy Treatment Note PT-OP-A Visit Information Start: 08/24/21 09:51 Freq: Status: Active Protocol: Document 10/03/21 12:58 [facility] (Rec: 10/03/21 13:48 [facility] [id number]) Out-Patient Physical Therapy Visit Information Visit Information Visit Type Treatment Note Visit Start Time 13:00 Visit Stop Time 13:45 Total Visit Minutes 45 Visit Number 9 Number of ADMINISTRATIVE SECRETARY Visits 0 PT-OP-B Current Condition Start: 08/24/21 09:51 Freq: Status: Active Protocol: Document 08/24/21 09:45 [facility] (Rec: 08/24/21 09:56 [facility] [id number]) Current Condition History of Current Condition 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 She also notes that despite going through pulmonary rehab she still feels short of breath all the time. 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, PHM also includes encephalopathy, hair loss, diabetes, [place] in 2019 with 2 stents placed Prior Treatments and Tests Pt has recieved PT in the past for ankle and foot ROM, balance, gait training, MFR and manual therapy techniques to improve ankle and foot mobility Treatment Goals Patient/Caregiver Goals Pts goals include improving ankle and foot mobility and decreasing stiffness and pain PT-OP-C Subjective Start: 08/24/21 09:51 Freq: Status: Active Protocol: Document 10/03/21 12:58 [facility] (Rec: 10/03/21 13:48 [facility] [id number]) OP-PT Subjective Patient Comments Patient Comments pt reports her left toe is still really sore and it is limiting her ability to walk PT-OP-F Manual Assessment Start: 08/30/21 13:57 Freq: Status: Active Protocol: Document 08/24/21 09:45 [facility] (Rec: 08/30/21 14:01 [facility] [id number]) Manual Assessments Soft Tissue Assessment Soft Tissue Mobility Assessment scleraderma throughout the calf and plantar fascia making tissue mobililty very difficult. Pt responds well to MFR and manual stretching PT-OP-J Posture/Palpation/Skin Start: 08/24/21 09:51 Freq: Status: Active Protocol: Document 08/24/21 09:45 [facility] (Rec: 08/30/21 09:42 [facility] [id number]) Palpation Assessment Location plantar fascia Palpation Location bilateral plantar fascia Palpation Findings Soft Tissue Tightness, Tenderness Palpation Details guarded and tight plantar fascia bilaterally PT-OP-K Range of Motion Start: 08/24/21 09:51 Freq: Status: Active Protocol: Document 08/24/21 09:45 [facility] (Rec: 08/30/21 09:42 [facility] [id number]) Ankle and Foot Goniometric Range of Motion Ankle and Foot Right Dorsiflexion with Knee Flexed 2 Dorsiflexion with Knee Extended 2 Plantarflexion 6 Inversion 5 Eversion 4 Comments very poor limited ankle mobility Left Dorsiflexion with Knee Flexed 3 Dorsiflexion with Knee Extended 2 Plantarflexion 5 Inversion 5 Eversion 4 Comments very poor limited ankle mobility Ankle and Foot ROM Limitations ROM Limitations Soft Tissue Tightness, Contracture,Pain Comments pt is very limited in ankle and foot ROM, the scleroderma has restricted her joint ROM so much that she only has a few degrees in all planes for her ankle. I am able to mobilize her metatarsals with very limited ROM, tightness in the calf and and plantar fascia B also limits ROM PT-OP-Q Treatments Start: 08/30/21 14:15 Freq: Status: Active Protocol: Document 10/03/21 12:58 [facility] (Rec: 10/03/21 13:48 [facility] [id number]) Therapeutic Exercises Supine Exercises ankle pumps Reps/Minutes x 20 Manual Therapy Treatment Soft Tissue Mobilization B patellar tendon Body Location B Mobilization Type Cross-Friction Intensity/Depth Moderate Body Position Sitting Comments Long sitting Extra time spend over R patellar tendon to allow for elevation durign knee flexion. I can breath better. 1 Body Location B anterior and posterior shins /feet Mobilization Type Myofascial Release Intensity/Depth Superficial Body Position long sitting (rolled towel under B ischial tuberosities) Comments MFR was performed to B anterior and posterior shins and feet, PROM was performed at the ankles and feet Joint Mobilizations MTPs, intertarsals, calcaneus on talus/navicular Joint B Direction AP, med/lat Grade II Body Position Sitting Comments long sitting thoracic spine Joint PA glides in sitting Direction PA Grade II Body Position Sitting Comments pt had good tolerance today for seated thoracic mobilizations, worked on deep breaths during throacic mobilizations Patella mobes Joint B Direction med/lat/sup/inf Grade II Body Position Sitting Comments Long sitting. R GH Jt AP Joint R Direction proximal humeral AP Grade II Body Position Sitting Reps/Duration x5 Manual Techniques 2 Type manual stretching for the gastroc/soleus complex Body Location B Body Position Sitting Comments long sitting 1 Type PROM stretches were performed at B ankles and feet, manual stretching Body Location B PF/ DF, IV/EV Body Position Sitting Comments improving ankle ROM with manual stretches PT-OP-T Assessment and Plan Start: 08/24/21 09:51 Freq: Status: Active Protocol: Document 10/03/21 12:58 [facility] (Rec: 10/03/21 18:10 [facility] [id number]) Physical Therapy Assessment Assessment Summary Assessment Fay is really sore on her left great toe and I encouraged her to make another appt with her foot doctor. Physical Therapy Plan Frequency and Duration Frequency of Treatment 1x/Week Duration of Treatment 12 Plan of Care Start Date 08/24/21 Plan of Care End Date 11/16/21 Therapeutic Interventions Therapeutic Interventions Balance Training,Gait Training ,Home Exercise Program,Joint Mobilizations,Manual Therapy, Patient/Caregiver Education, Self-Care/Home Management,Soft Tissue Mobilization, Therapeutic Exercises Next Visit Focus/Plan Next Note Type Treatment Note Next Visit Plan continue progressing ankle ROM and mobility, plantar fascia relief B, cardio conditioning and strength
--- NOTE | 2021-10-06 13:01 | PT.OTN ---
Current Diagnoses Systemic sclerosis, unspecified (10/06/21) Unsteadiness on feet (10/06/21) Physical Therapy Treatment Note PT-OP-A Visit Information Start: 08/24/21 09:51 Freq: Status: Active Protocol: Document 10/06/21 12:06 [facility] (Rec: 10/06/21 13:01 [facility] [id number]) Out-Patient Physical Therapy Visit Information Visit Information Visit Type Treatment Note Visit Start Time 12:05 Visit Stop Time 12:50 Total Visit Minutes 45 Visit Number 10 Number of WINDOW CLEANER Visits 1 PT-OP-B Current Condition Start: 08/24/21 09:51 Freq: Status: Active Protocol: Document 08/24/21 09:45 [facility] (Rec: 08/24/21 09:56 [facility] [id number]) Current Condition History of Current Condition 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 She also notes that despite going through pulmonary rehab she still feels short of breath all the time. 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, PHM also includes encephalopathy, hair loss, diabetes, [place] in 2019 with 2 stents placed Prior Treatments and Tests Pt has recieved PT in the past for ankle and foot ROM, balance, gait training, MFR and manual therapy techniques to improve ankle and foot mobility Treatment Goals Patient/Caregiver Goals Pts goals include improving ankle and foot mobility and decreasing stiffness and pain PT-OP-C Subjective Start: 08/24/21 09:51 Freq: Status: Active Protocol: Document 10/06/21 12:06 ISAIAH (Rec: 10/06/21 13:01 [facility] [id number]) OP-PT Subjective Patient Comments Patient Comments Pt reports her L toe where toe nail was removed is really bothering her so she goes back to the dr at 3 today to get it checked. PT-OP-F Manual Assessment Start: 08/30/21 13:57 Freq: Status: Active Protocol: Document 08/24/21 09:45 [facility] (Rec: 08/30/21 14:01 [facility] [id number]) Manual Assessments Soft Tissue Assessment Soft Tissue Mobility Assessment scleraderma throughout the calf and plantar fascia making tissue mobililty very difficult. Pt responds well to MFR and manual stretching PT-OP-J Posture/Palpation/Skin Start: 08/24/21 09:51 Freq: Status: Active Protocol: Document 08/24/21 09:45 [facility] (Rec: 08/30/21 09:42 [facility] [id number]) Palpation Assessment Location plantar fascia Palpation Location bilateral plantar fascia Palpation Findings Soft Tissue Tightness, Tenderness Palpation Details guarded and tight plantar fascia bilaterally PT-OP-K Range of Motion Start: 08/24/21 09:51 Freq: Status: Active Protocol: Document 08/24/21 09:45 [facility] (Rec: 08/30/21 09:42 [facility] [id number]) Ankle and Foot Goniometric Range of Motion Ankle and Foot Right Dorsiflexion with Knee Flexed 2 Dorsiflexion with Knee Extended 2 Plantarflexion 6 Inversion 5 Eversion 4 Comments very poor limited ankle mobility Left Dorsiflexion with Knee Flexed 3 Dorsiflexion with Knee Extended 2 Plantarflexion 5 Inversion 5 Eversion 4 Comments very poor limited ankle mobility Ankle and Foot ROM Limitations ROM Limitations Soft Tissue Tightness, Contracture,Pain Comments pt is very limited in ankle and foot ROM, the scleroderma has restricted her joint ROM so much that she only has a few degrees in all planes for her ankle. I am able to mobilize her metatarsals with very limited ROM, tightness in the calf and and plantar fascia B also limits ROM PT-OP-Q Treatments Start: 08/30/21 14:15 Freq: Status: Active Protocol: Document 10/06/21 12:06 [facility] (Rec: 10/06/21 13:01 [facility] [id number]) Manual Therapy Treatment Soft Tissue Mobilization B patellar tendon Body Location B Mobilization Type Cross-Friction Intensity/Depth Moderate Body Position Sitting Comments Long sitting Extra time spend over R patellar tendon to allow for elevation durign knee flexion. I can breath better. 1 Body Location B anterior and posterior shins /feet Mobilization Type Myofascial Release Intensity/Depth Superficial Body Position long sitting (rolled towel under B ischial tuberosities) Comments MFR was performed to B anterior and posterior shins and feet, PROM was performed at the ankles and feet Joint Mobilizations MTPs, intertarsals, calcaneus on talus/navicular Joint B Direction AP, med/lat Grade II Body Position Sitting Comments long sitting Patella mobes Joint B Direction med/lat/sup/inf Grade II Body Position Sitting Comments Long sitting. Manual Techniques 2 Type manual stretching for the gastroc/soleus complex Body Location B Body Position Sitting Comments long sitting 1 Type PROM stretches were performed at B ankles and feet, manual stretching Body Location B PF/ DF, IV/EV Body Position Sitting Comments improving ankle ROM with manual stretches PT-OP-T Assessment and Plan Start: 08/24/21 09:51 Freq: Status: Active Protocol: Document 10/06/21 12:06 [facility] (Rec: 10/06/21 13:01 [facility] [id number]) Physical Therapy Assessment Goals 3 Impairment LE, foot and ankle pain rated 7/10 Skilled Nursing Goal (LTG) With manual therapy techniques , ROM exercises, stretches, and mobility exercises Fay has a reduction in pain by 2-3 numbers on the pain scale LTG Duration 12 weeks 2 Impairment B Calf and plantar fascia tightness and pain limiting pts ability to walk Short Term Goal (STG) Fay is educated on stretches and manual techniques she can do at home to help with plantar fascia and calf tightness STG Duration 4 weeks Skilled Nursing Goal (LTG) Fay notes a overall reduction in tightness decreasing her pain with walking LTG Duration 12 weeks 1 Impairment Poor ankle and foot ROM affecting balance and gait Skilled Nursing Goal (LTG) Fay is able to improve her ankle ROM by 5 degrees into DF to assist with gait and balance LTG Duration 12 weeks Assessment Summary Assessment Fay feels she always improves her ankle and foot ROM after therapy but she doesn't believe it lasts long. Encouraged pt to stretch between appts to continue feeling improved ROM. Physical Therapy Plan Frequency and Duration Frequency of Treatment 1x/Week Duration of Treatment 12 Plan of Care Start Date 08/24/21 Plan of Care End Date 11/16/21 Therapeutic Interventions Therapeutic Interventions Balance Training,Gait Training ,Home Exercise Program,Joint Mobilizations,Manual Therapy, Patient/Caregiver Education, Self-Care/Home Management,Soft Tissue Mobilization, Therapeutic Exercises Next Visit Focus/Plan Next Note Type Treatment Note Next Visit Plan Review appropriate calf stretches, continue progressing ankle ROM and mobility, plantar fascia relief B, cardio conditioning and strength
--- NOTE | 2021-10-10 14:16 | PT.OTN ---
Current Diagnoses Systemic sclerosis, unspecified (10/10/21) Unsteadiness on feet (10/10/21) Physical Therapy Treatment Note PT-OP-A Visit Information Start: 08/24/21 09:51 Freq: Status: Active Protocol: Document 10/10/21 13:00 [facility] (Rec: 10/10/21 13:08 [facility] [id number]) Out-Patient Physical Therapy Visit Information Visit Information Visit Type Treatment Note Visit Start Time 13:00 Visit Stop Time 13:45 Total Visit Minutes 45 Visit Number 11 PT-OP-B Current Condition Start: 08/24/21 09:51 Freq: Status: Active Protocol: Document 08/24/21 09:45 [facility] (Rec: 08/24/21 09:56 [facility] [id number]) Current Condition History of Current Condition 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 She also notes that despite going through pulmonary rehab she still feels short of breath all the time. 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, PHM also includes encephalopathy, hair loss, diabetes, [place] in 2019 with 2 stents placed Prior Treatments and Tests Pt has recieved PT in the past for ankle and foot ROM, balance, gait training, MFR and manual therapy techniques to improve ankle and foot mobility Treatment Goals Patient/Caregiver Goals Pts goals include improving ankle and foot mobility and decreasing stiffness and pain PT-OP-C Subjective Start: 08/24/21 09:51 Freq: Status: Active Protocol: Document 10/10/21 13:00 [facility] (Rec: 10/10/21 13:08 [facility] [id number]) OP-PT Subjective Patient Comments Patient Comments pt reports her toe is sore to the touch but its not bothering her with walking. SHe went back to the foot docgtor saturday there was a big piece of nail present under her nail. They numbed her foot and cut more of the nail off. PT-OP-F Manual Assessment Start: 08/30/21 13:57 Freq: Status: Active Protocol: Document 08/24/21 09:45 [facility] (Rec: 08/30/21 14:01 [facility] [id number]) Manual Assessments Soft Tissue Assessment Soft Tissue Mobility Assessment scleraderma throughout the calf and plantar fascia making tissue mobililty very difficult. Pt responds well to MFR and manual stretching PT-OP-J Posture/Palpation/Skin Start: 08/24/21 09:51 Freq: Status: Active Protocol: Document 08/24/21 09:45 [facility] (Rec: 08/30/21 09:42 [facility] [id number]) Palpation Assessment Location plantar fascia Palpation Location bilateral plantar fascia Palpation Findings Soft Tissue Tightness, Tenderness Palpation Details guarded and tight plantar fascia bilaterally PT-OP-K Range of Motion Start: 08/24/21 09:51 Freq: Status: Active Protocol: Document 08/24/21 09:45 [facility] (Rec: 08/30/21 09:42 [facility] [id number]) Ankle and Foot Goniometric Range of Motion Ankle and Foot Right Dorsiflexion with Knee Flexed 2 Dorsiflexion with Knee Extended 2 Plantarflexion 6 Inversion 5 Eversion 4 Comments very poor limited ankle mobility Left Dorsiflexion with Knee Flexed 3 Dorsiflexion with Knee Extended 2 Plantarflexion 5 Inversion 5 Eversion 4 Comments very poor limited ankle mobility Ankle and Foot ROM Limitations ROM Limitations Soft Tissue Tightness, Contracture,Pain Comments pt is very limited in ankle and foot ROM, the scleroderma has restricted her joint ROM so much that she only has a few degrees in all planes for her ankle. I am able to mobilize her metatarsals with very limited ROM, tightness in the calf and and plantar fascia B also limits ROM PT-OP-Q Treatments Start: 08/30/21 14:15 Freq: Status: Active Protocol: Document 10/10/21 13:00 [facility] (Rec: 10/10/21 14:15 [facility] [id number]) Manual Therapy Treatment Soft Tissue Mobilization B patellar tendon Body Location B Mobilization Type Cross-Friction Intensity/Depth Moderate Body Position Sitting Comments Long sitting Extra time spend over R patellar tendon to allow for elevation durign knee flexion. I can breath better. 1 Body Location B anterior and posterior shins /feet Mobilization Type Myofascial Release Intensity/Depth Superficial Body Position long sitting (rolled towel under B ischial tuberosities) Comments MFR was performed to B anterior and posterior shins and feet, PROM was performed at the ankles and feet Joint Mobilizations MTPs, intertarsals, calcaneus on talus/navicular Joint B Direction AP, med/lat Grade II Body Position Sitting Comments long sitting thoracic spine Joint PA glides in sitting Direction PA Grade II Body Position Sitting Comments pt had good tolerance today for seated thoracic mobilizations, worked on deep breaths during throacic mobilizations Patella mobes Joint B Direction med/lat/sup/inf Grade II Body Position Sitting Comments Long sitting. Manual Techniques 2 Type manual stretching for the gastroc/soleus complex Body Location B Body Position Sitting Comments long sitting 1 Type PROM stretches were performed at B ankles and feet, manual stretching Body Location B PF/ DF, IV/EV Body Position Sitting Comments improving ankle ROM with manual stretches PT-OP-T Assessment and Plan Start: 08/24/21 09:51 Freq: Status: Active Protocol: Document 10/10/21 13:00 [facility] (Rec: 10/10/21 14:15 [facility] [id number]) Physical Therapy Assessment Assessment Summary Assessment pt still very sore in her left toe but able to walk better today. She had pulmonary therapy right after her PT visit today and she was going to work out on the [place] Physical Therapy Plan Frequency and Duration Frequency of Treatment 1x/Week Duration of Treatment 12 Plan of Care Start Date 08/24/21 Plan of Care End Date 11/16/21 Therapeutic Interventions Therapeutic Interventions Balance Training,Gait Training ,Home Exercise Program,Joint Mobilizations,Manual Therapy, Patient/Caregiver Education, Self-Care/Home Management,Soft Tissue Mobilization, Therapeutic Exercises Next Visit Focus/Plan Next Note Type Treatment Note Next Visit Plan Review appropriate calf stretches, continue progressing ankle ROM and mobility, plantar fascia relief B, cardio conditioning and strength
--- NOTE | 2021-10-17 16:55 | PT.OTN ---
Current Diagnoses Systemic sclerosis, unspecified (10/17/21) Unsteadiness on feet (10/17/21) Physical Therapy Treatment Note PT-OP-A Visit Information Start: 08/24/21 09:51 Freq: Status: Active Protocol: Document 10/17/21 13:15 [facility] (Rec: 10/17/21 16:54 [facility] [id number]) Out-Patient Physical Therapy Visit Information Visit Information Visit Type Treatment Note Visit Start Time 13:15 Visit Stop Time 13:45 Total Visit Minutes 30 Visit Number 12 PT-OP-B Current Condition Start: 08/24/21 09:51 Freq: Status: Active Protocol: Document 08/24/21 09:45 [facility] (Rec: 08/24/21 09:56 [facility] [id number]) Current Condition History of Current Condition 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 She also notes that despite going through pulmonary rehab she still feels short of breath all the time. 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, PHM also includes encephalopathy, hair loss, diabetes, [place] in 2019 with 2 stents placed Prior Treatments and Tests Pt has recieved PT in the past for ankle and foot ROM, balance, gait training, MFR and manual therapy techniques to improve ankle and foot mobility Treatment Goals Patient/Caregiver Goals Pts goals include improving ankle and foot mobility and decreasing stiffness and pain PT-OP-C Subjective Start: 08/24/21 09:51 Freq: Status: Active Protocol: Document 10/17/21 13:15 [facility] (Rec: 10/17/21 16:54 [facility] [id number]) OP-PT Subjective Patient Comments Patient Comments pt called in to let us know her car wouldn't start and her neighbor was bringing her into therapy. She was 15 min late due to this PT-OP-F Manual Assessment Start: 08/30/21 13:57 Freq: Status: Active Protocol: Document 08/24/21 09:45 [facility] (Rec: 08/30/21 14:01 [facility] [id number]) Manual Assessments Soft Tissue Assessment Soft Tissue Mobility Assessment scleraderma throughout the calf and plantar fascia making tissue mobililty very difficult. Pt responds well to MFR and manual stretching PT-OP-J Posture/Palpation/Skin Start: 08/24/21 09:51 Freq: Status: Active Protocol: Document 08/24/21 09:45 [facility] (Rec: 08/30/21 09:42 [facility] [id number]) Palpation Assessment Location plantar fascia Palpation Location bilateral plantar fascia Palpation Findings Soft Tissue Tightness, Tenderness Palpation Details guarded and tight plantar fascia bilaterally PT-OP-K Range of Motion Start: 08/24/21 09:51 Freq: Status: Active Protocol: Document 08/24/21 09:45 [facility] (Rec: 08/30/21 09:42 [facility] [id number]) Ankle and Foot Goniometric Range of Motion Ankle and Foot Right Dorsiflexion with Knee Flexed 2 Dorsiflexion with Knee Extended 2 Plantarflexion 6 Inversion 5 Eversion 4 Comments very poor limited ankle mobility Left Dorsiflexion with Knee Flexed 3 Dorsiflexion with Knee Extended 2 Plantarflexion 5 Inversion 5 Eversion 4 Comments very poor limited ankle mobility Ankle and Foot ROM Limitations ROM Limitations Soft Tissue Tightness, Contracture,Pain Comments pt is very limited in ankle and foot ROM, the scleroderma has restricted her joint ROM so much that she only has a few degrees in all planes for her ankle. I am able to mobilize her metatarsals with very limited ROM, tightness in the calf and and plantar fascia B also limits ROM PT-OP-Q Treatments Start: 08/30/21 14:15 Freq: Status: Active Protocol: Document 10/17/21 13:15 [facility] (Rec: 10/17/21 16:54 [facility] [id number]) Manual Therapy Treatment Soft Tissue Mobilization B patellar tendon Body Location B Mobilization Type Cross-Friction Intensity/Depth Moderate Body Position Sitting Comments Long sitting Extra time spend over R patellar tendon to allow for elevation durign knee flexion. I can breath better. 1 Body Location B anterior and posterior shins /feet Mobilization Type Myofascial Release Intensity/Depth Superficial Body Position long sitting (rolled towel under B ischial tuberosities) Comments MFR was performed to B anterior and posterior shins and feet, PROM was performed at the ankles and feet Joint Mobilizations MTPs, intertarsals, calcaneus on talus/navicular Joint B Direction AP, med/lat Grade II Body Position Sitting Comments long sitting Patella mobes Joint B Direction med/lat/sup/inf Grade II Body Position Sitting Comments Long sitting. PT-OP-T Assessment and Plan Start: 08/24/21 09:51 Freq: Status: Active Protocol: Document 10/17/21 13:15 [facility] (Rec: 10/17/21 16:54 [facility] [id number]) Physical Therapy Assessment Assessment Summary Assessment treatment shortened today due to pts car not starting and her being late. She is still having pain from her great toe . She has antibiotics given to her from her doctor but hasn't started them yet and is hoping she wont need them Physical Therapy Plan Frequency and Duration Frequency of Treatment 1x/Week Duration of Treatment 12 Plan of Care Start Date 08/24/21 Plan of Care End Date 11/16/21 Therapeutic Interventions Therapeutic Interventions Balance Training,Gait Training ,Home Exercise Program,Joint Mobilizations,Manual Therapy, Patient/Caregiver Education, Self-Care/Home Management,Soft Tissue Mobilization, Therapeutic Exercises Next Visit Focus/Plan Next Note Type Treatment Note Next Visit Plan Review appropriate calf stretches, continue progressing ankle ROM and mobility, plantar fascia relief B, cardio conditioning and strength
--- NOTE | 2021-11-13 11:56 | PT.OTN ---
Current Diagnoses Systemic sclerosis, unspecified (11/13/21) Unsteadiness on feet (11/13/21) Physical Therapy Treatment Note PT-OP-A Visit Information Start: 08/24/21 09:51 Freq: Status: Active Protocol: Document 11/13/21 11:53 MA (Rec: 11/13/21 11:55 MA [id number]) Out-Patient Physical Therapy Visit Information Visit Information Visit Type Treatment Note Visit Start Time 10:15 Visit Stop Time 11:04 Total Visit Minutes 49 Visit Number 13 Number of FICTION AND NONFICTION WRITER PROSE Visits 1 PT-OP-B Current Condition Start: 08/24/21 09:51 Freq: Status: Active Protocol: Document 08/24/21 09:45 [facility] (Rec: 08/24/21 09:56 [facility] [id number]) Current Condition History of Current Condition 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 She also notes that despite going through pulmonary rehab she still feels short of breath all the time. 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, PHM also includes encephalopathy, hair loss, diabetes, [place] in 2019 with 2 stents placed Prior Treatments and Tests Pt has recieved PT in the past for ankle and foot ROM, balance, gait training, MFR and manual therapy techniques to improve ankle and foot mobility Treatment Goals Patient/Caregiver Goals Pts goals include improving ankle and foot mobility and decreasing stiffness and pain PT-OP-C Subjective Start: 08/24/21 09:51 Freq: Status: Active Protocol: Document 11/13/21 11:53 MA (Rec: 11/13/21 11:56 MA [id number]) OP-PT Subjective Patient Comments Patient Comments Pt states she has not been to PT in awhile since she had family in town and things going on. She feels her neuropathy has gotten worse through anterior shins and dorsum of feet bilaterally. PT-OP-F Manual Assessment Start: 08/30/21 13:57 Freq: Status: Active Protocol: Document 08/24/21 09:45 [facility] (Rec: 08/30/21 14:01 [facility] [id number]) Manual Assessments Soft Tissue Assessment Soft Tissue Mobility Assessment scleraderma throughout the calf and plantar fascia making tissue mobililty very difficult. Pt responds well to MFR and manual stretching PT-OP-J Posture/Palpation/Skin Start: 08/24/21 09:51 Freq: Status: Active Protocol: Document 08/24/21 09:45 [facility] (Rec: 08/30/21 09:42 [facility] [id number]) Palpation Assessment Location plantar fascia Palpation Location bilateral plantar fascia Palpation Findings Soft Tissue Tightness, Tenderness Palpation Details guarded and tight plantar fascia bilaterally PT-OP-K Range of Motion Start: 08/24/21 09:51 Freq: Status: Active Protocol: Document 08/24/21 09:45 [facility] (Rec: 08/30/21 09:42 [facility] [id number]) Ankle and Foot Goniometric Range of Motion Ankle and Foot Right Dorsiflexion with Knee Flexed 2 Dorsiflexion with Knee Extended 2 Plantarflexion 6 Inversion 5 Eversion 4 Comments very poor limited ankle mobility Left Dorsiflexion with Knee Flexed 3 Dorsiflexion with Knee Extended 2 Plantarflexion 5 Inversion 5 Eversion 4 Comments very poor limited ankle mobility Ankle and Foot ROM Limitations ROM Limitations Soft Tissue Tightness, Contracture,Pain Comments pt is very limited in ankle and foot ROM, the scleroderma has restricted her joint ROM so much that she only has a few degrees in all planes for her ankle. I am able to mobilize her metatarsals with very limited ROM, tightness in the calf and and plantar fascia B also limits ROM PT-OP-Q Treatments Start: 08/30/21 14:15 Freq: Status: Active Protocol: Document 11/13/21 11:53 MA (Rec: 11/13/21 11:55 MA [id number]) Manual Therapy Treatment Soft Tissue Mobilization 1 Body Location B anterior and posterior shins /feet Mobilization Type Myofascial Release Intensity/Depth Superficial Body Position long sitting (rolled towel under B ischial tuberosities) Comments MFR was performed to B anterior and posterior shins and feet, PROM was performed at the ankles and feet Joint Mobilizations MTPs, intertarsals, calcaneus on talus/navicular Joint B Direction AP, med/lat Grade II Body Position Sitting Comments long sitting Manual Techniques 2 Type manual stretching for the gastroc/soleus complex Body Location B Body Position Sitting Comments long sitting 1 Type PROM stretches were performed at B ankles and feet, manual stretching Body Location B PF/ DF, IV/EV Body Position Sitting Comments improving ankle ROM with manual stretches PT-OP-T Assessment and Plan Start: 08/24/21 09:51 Freq: Status: Active Protocol: Document 11/13/21 11:53 MA (Rec: 11/13/21 11:55 MA [id number]) Physical Therapy Assessment Goals 3 Impairment LE, foot and ankle pain rated 7/10 Transition Specialist Goal (LTG) With manual therapy techniques , ROM exercises, stretches, and mobility exercises Fay has a reduction in pain by 2-3 numbers on the pain scale LTG Duration 12 weeks 2 Impairment B Calf and plantar fascia tightness and pain limiting pts ability to walk Short Term Goal (STG) Fay is educated on stretches and manual techniques she can do at home to help with plantar fascia and calf tightness STG Duration 4 weeks Longterm Goal (LTG) Fay notes a overall reduction in tightness decreasing her pain with walking LTG Duration 12 weeks 1 Impairment Poor ankle and foot ROM affecting balance and gait Transition Specialist Goal (LTG) Fay is able to improve her ankle ROM by 5 degrees into DF to assist with gait and balance LTG Duration 12 weeks Physical Therapy Plan Frequency and Duration Frequency of Treatment 1x/Week Duration of Treatment 12 Plan of Care Start Date 08/24/21 Plan of Care End Date 11/16/21 Therapeutic Interventions Therapeutic Interventions Balance Training,Gait Training ,Home Exercise Program,Joint Mobilizations,Manual Therapy, Patient/Caregiver Education, Self-Care/Home Management,Soft Tissue Mobilization, Therapeutic Exercises Next Visit Focus/Plan Next Note Type Progress Note Next Visit Plan update POC ending 11/16 Review appropriate calf stretches, continue progressing ankle ROM and mobility, plantar fascia relief B, cardio conditioning and strength
--- NOTE | 2021-11-13 11:56 | PT.OTN ---
Current Diagnoses Systemic sclerosis, unspecified (11/13/21) Unsteadiness on feet (11/13/21) Physical Therapy Treatment Note PT-OP-A Visit Information Start: 08/24/21 09:51 Freq: Status: Active Protocol: Document 11/13/21 11:53 MA (Rec: 11/13/21 11:55 MA [id number]) Out-Patient Physical Therapy Visit Information Visit Information Visit Type Treatment Note Visit Start Time 10:15 Visit Stop Time 11:04 Total Visit Minutes 49 Visit Number 13 Number of ONLINE EDITOR Visits 1 PT-OP-B Current Condition Start: 08/24/21 09:51 Freq: Status: Active Protocol: Document 08/24/21 09:45 [facility] (Rec: 08/24/21 09:56 [facility] [id number]) Current Condition History of Current Condition 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 She also notes that despite going through pulmonary rehab she still feels short of breath all the time. 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, PHM also includes encephalopathy, hair loss, diabetes, [place] in 2019 with 2 stents placed Prior Treatments and Tests Pt has recieved PT in the past for ankle and foot ROM, balance, gait training, MFR and manual therapy techniques to improve ankle and foot mobility Treatment Goals Patient/Caregiver Goals Pts goals include improving ankle and foot mobility and decreasing stiffness and pain PT-OP-C Subjective Start: 08/24/21 09:51 Freq: Status: Active Protocol: Document 11/13/21 11:53 MA (Rec: 11/13/21 11:56 MA [id number]) OP-PT Subjective Patient Comments Patient Comments Pt states she has not been to PT in awhile since she had family in town and things going on. She feels her neuropathy has gotten worse through anterior shins and dorsum of feet bilaterally. PT-OP-F Manual Assessment Start: 08/30/21 13:57 Freq: Status: Active Protocol: Document 08/24/21 09:45 [facility] (Rec: 08/30/21 14:01 [facility] [id number]) Manual Assessments Soft Tissue Assessment Soft Tissue Mobility Assessment scleraderma throughout the calf and plantar fascia making tissue mobililty very difficult. Pt responds well to MFR and manual stretching PT-OP-J Posture/Palpation/Skin Start: 08/24/21 09:51 Freq: Status: Active Protocol: Document 08/24/21 09:45 [facility] (Rec: 08/30/21 09:42 [facility] [id number]) Palpation Assessment Location plantar fascia Palpation Location bilateral plantar fascia Palpation Findings Soft Tissue Tightness, Tenderness Palpation Details guarded and tight plantar fascia bilaterally PT-OP-K Range of Motion Start: 08/24/21 09:51 Freq: Status: Active Protocol: Document 08/24/21 09:45 [facility] (Rec: 08/30/21 09:42 [facility] [id number]) Ankle and Foot Goniometric Range of Motion Ankle and Foot Right Dorsiflexion with Knee Flexed 2 Dorsiflexion with Knee Extended 2 Plantarflexion 6 Inversion 5 Eversion 4 Comments very poor limited ankle mobility Left Dorsiflexion with Knee Flexed 3 Dorsiflexion with Knee Extended 2 Plantarflexion 5 Inversion 5 Eversion 4 Comments very poor limited ankle mobility Ankle and Foot ROM Limitations ROM Limitations Soft Tissue Tightness, Contracture,Pain Comments pt is very limited in ankle and foot ROM, the scleroderma has restricted her joint ROM so much that she only has a few degrees in all planes for her ankle. I am able to mobilize her metatarsals with very limited ROM, tightness in the calf and and plantar fascia B also limits ROM PT-OP-Q Treatments Start: 08/30/21 14:15 Freq: Status: Active Protocol: Document 11/13/21 11:53 MA (Rec: 11/13/21 11:55 MA [id number]) Manual Therapy Treatment Soft Tissue Mobilization 1 Body Location B anterior and posterior shins /feet Mobilization Type Myofascial Release Intensity/Depth Superficial Body Position long sitting (rolled towel under B ischial tuberosities) Comments MFR was performed to B anterior and posterior shins and feet, PROM was performed at the ankles and feet Joint Mobilizations MTPs, intertarsals, calcaneus on talus/navicular Joint B Direction AP, med/lat Grade II Body Position Sitting Comments long sitting Manual Techniques 2 Type manual stretching for the gastroc/soleus complex Body Location B Body Position Sitting Comments long sitting 1 Type PROM stretches were performed at B ankles and feet, manual stretching Body Location B PF/ DF, IV/EV Body Position Sitting Comments improving ankle ROM with manual stretches PT-OP-T Assessment and Plan Start: 08/24/21 09:51 Freq: Status: Active Protocol: Document 11/13/21 11:53 MA (Rec: 11/13/21 11:55 MA [id number]) Physical Therapy Assessment Goals 3 Impairment LE, foot and ankle pain rated 7/10 Family Dinner Service Specialist Goal (LTG) With manual therapy techniques , ROM exercises, stretches, and mobility exercises Fay has a reduction in pain by 2-3 numbers on the pain scale LTG Duration 12 weeks 2 Impairment B Calf and plantar fascia tightness and pain limiting pts ability to walk Short Term Goal (STG) Fay is educated on stretches and manual techniques she can do at home to help with plantar fascia and calf tightness STG Duration 4 weeks Penitentiary Goal (LTG) Fay notes a overall reduction in tightness decreasing her pain with walking LTG Duration 12 weeks 1 Impairment Poor ankle and foot ROM affecting balance and gait Family Dinner Service Specialist Goal (LTG) Fay is able to improve her ankle ROM by 5 degrees into DF to assist with gait and balance LTG Duration 12 weeks Physical Therapy Plan Frequency and Duration Frequency of Treatment 1x/Week Duration of Treatment 12 Plan of Care Start Date 08/24/21 Plan of Care End Date 11/16/21 Therapeutic Interventions Therapeutic Interventions Balance Training,Gait Training ,Home Exercise Program,Joint Mobilizations,Manual Therapy, Patient/Caregiver Education, Self-Care/Home Management,Soft Tissue Mobilization, Therapeutic Exercises Next Visit Focus/Plan Next Note Type Progress Note Next Visit Plan update POC ending 11/16 Review appropriate calf stretches, continue progressing ankle ROM and mobility, plantar fascia relief B, cardio conditioning and strength
--- NOTE | 2021-11-15 13:04 | PT.OTN ---
Current Diagnoses Systemic sclerosis, unspecified (11/15/21) Unsteadiness on feet (11/15/21) Physical Therapy Treatment Note PT-OP-A Visit Information Start: 08/24/21 09:51 Freq: Status: Active Protocol: Document 11/15/21 11:57 MA (Rec: 11/15/21 13:03 MA [id number]) Out-Patient Physical Therapy Visit Information Visit Information Visit Type Treatment Note Visit Start Time 12:00 Visit Stop Time 12:55 Total Visit Minutes 55 Visit Number 14 Number of FINANCIAL BROKERS Visits 2 PT-OP-B Current Condition Start: 08/24/21 09:51 Freq: Status: Active Protocol: Document 08/24/21 09:45 [facility] (Rec: 08/24/21 09:56 [facility] [id number]) Current Condition History of Current Condition 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 She also notes that despite going through pulmonary rehab she still feels short of breath all the time. 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, PHM also includes encephalopathy, hair loss, diabetes, [place] in 2019 with 2 stents placed Prior Treatments and Tests Pt has recieved PT in the past for ankle and foot ROM, balance, gait training, MFR and manual therapy techniques to improve ankle and foot mobility Treatment Goals Patient/Caregiver Goals Pts goals include improving ankle and foot mobility and decreasing stiffness and pain PT-OP-C Subjective Start: 08/24/21 09:51 Freq: Status: Active Protocol: Document 11/15/21 11:57 MA (Rec: 11/15/21 13:04 MA [id number]) OP-PT Subjective Patient Comments Patient Comments Pt had burning L foot pain last night and could not get up and walk due to pain. PT-OP-F Manual Assessment Start: 08/30/21 13:57 Freq: Status: Active Protocol: Document 08/24/21 09:45 [facility] (Rec: 08/30/21 14:01 [facility] [id number]) Manual Assessments Soft Tissue Assessment Soft Tissue Mobility Assessment scleraderma throughout the calf and plantar fascia making tissue mobililty very difficult. Pt responds well to MFR and manual stretching PT-OP-J Posture/Palpation/Skin Start: 08/24/21 09:51 Freq: Status: Active Protocol: Document 08/24/21 09:45 [facility] (Rec: 08/30/21 09:42 [facility] [id number]) Palpation Assessment Location plantar fascia Palpation Location bilateral plantar fascia Palpation Findings Soft Tissue Tightness, Tenderness Palpation Details guarded and tight plantar fascia bilaterally PT-OP-K Range of Motion Start: 08/24/21 09:51 Freq: Status: Active Protocol: Document 08/24/21 09:45 [facility] (Rec: 08/30/21 09:42 [facility] [id number]) Ankle and Foot Goniometric Range of Motion Ankle and Foot Right Dorsiflexion with Knee Flexed 2 Dorsiflexion with Knee Extended 2 Plantarflexion 6 Inversion 5 Eversion 4 Comments very poor limited ankle mobility Left Dorsiflexion with Knee Flexed 3 Dorsiflexion with Knee Extended 2 Plantarflexion 5 Inversion 5 Eversion 4 Comments very poor limited ankle mobility Ankle and Foot ROM Limitations ROM Limitations Soft Tissue Tightness, Contracture,Pain Comments pt is very limited in ankle and foot ROM, the scleroderma has restricted her joint ROM so much that she only has a few degrees in all planes for her ankle. I am able to mobilize her metatarsals with very limited ROM, tightness in the calf and and plantar fascia B also limits ROM PT-OP-Q Treatments Start: 08/30/21 14:15 Freq: Status: Active Protocol: Document 11/15/21 11:57 MA (Rec: 11/15/21 13:03 MA [id number]) Therapeutic Exercises Standing Exercises Gastroc Stretch Standing Exercise Name staggered stance Side bilateral Reps/Minutes x30 ea Manual Therapy Treatment Soft Tissue Mobilization 1 Body Location B anterior and posterior shins /feet Mobilization Type Myofascial Release Intensity/Depth Superficial Body Position long sitting (rolled towel under B ischial tuberosities) Comments MFR was performed to B anterior and posterior shins and feet, PROM was performed at the ankles and feet Joint Mobilizations MTPs, intertarsals, calcaneus on talus/navicular Joint B Direction AP, med/lat Grade II Body Position Sitting Comments long sitting Patella mobes Joint B Direction med/lat/sup/inf Grade II Body Position Sitting Comments Long sitting. Manual Techniques 2 Type manual stretching for the gastroc/soleus complex Body Location B Body Position Sitting Comments long sitting 1 Type PROM stretches were performed at B ankles and feet, manual stretching Body Location B PF/ DF, IV/EV Body Position Sitting Comments improving ankle ROM with manual stretches PT-OP-T Assessment and Plan Start: 08/24/21 09:51 Freq: Status: Active Protocol: Document 11/15/21 11:57 MA (Rec: 11/15/21 13:03 MA [id number]) Physical Therapy Assessment Goals 3 Impairment LE, foot and ankle pain rated 7/10 11/15- 8/10 pain; pt feels her pain is getting worse but maybe due to not having PT for 1 month Senior Care Goal (LTG) With manual therapy techniques , ROM exercises, stretches, and mobility exercises Fay has a reduction in pain by 2-3 numbers on the pain scale LTG Duration 12 weeks 2 Impairment B Calf and plantar fascia tightness and pain limiting pts ability to walk Short Term Goal (STG) Fay is educated on stretches and manual techniques she can do at home to help with plantar fascia and calf tightness STG Duration 4 weeks Senior Care Goal (LTG) Fay notes a overall reduction in tightness decreasing her pain with walking LTG Duration 12 weeks 1 Impairment Poor ankle and foot ROM affecting balance and gait Business Continuity Strategy Director Goal (LTG) Fay is able to improve her ankle ROM by 5 degrees into DF to assist with gait and balance LTG Duration 12 weeks Assessment Summary Assessment Fay is able to get to neutral DF during AROM and can passively be ranged to ~2 degrees bilaterally. She is having increased pain recently to 8/10 but admits it may be due to not going to pulmonary rehab or PT for several weeks while she had family in town. Pt's medial feet are both purple today and plantar surface of R foot near MT joints. Color improved to a more pink natural color after STM and PROM L>R. FINANCIAL BROKERS discusses concern over purple discoloration to pt and requests she continue to check them and perform HEP regularly to improve circulation. Pt instructed to contact MD if discoloration worsens. Physical Therapy Plan Frequency and Duration Frequency of Treatment 1x/Week Duration of Treatment 12 Plan of Care Start Date 08/24/21 Plan of Care End Date 11/16/21 Therapeutic Interventions Therapeutic Interventions Balance Training,Gait Training ,Home Exercise Program,Joint Mobilizations,Manual Therapy, Patient/Caregiver Education, Self-Care/Home Management,Soft Tissue Mobilization, Therapeutic Exercises Next Visit Focus/Plan Next Note Type Progress Note Next Visit Plan update POC ending 11/16. Pt requests exercises for strengthening LEs/hips next session. Review appropriate calf stretches, continue progressing ankle ROM and mobility, plantar fascia relief B, cardio conditioning and strength
--- NOTE | 2021-11-21 10:01 | PT.OPPN ---
Current Diagnoses Systemic sclerosis, unspecified (11/15/21) Unsteadiness on feet (11/15/21) Physical Therapy Progress Note PT-OP-A Visit Information Start: 08/24/21 09:51 Freq: Status: Active Protocol: Document 11/15/21 11:57 MA (Rec: 11/15/21 13:03 MA [id number]) Out-Patient Physical Therapy Visit Information Visit Information Visit Type Treatment Note Visit Start Time 12:00 Visit Stop Time 12:55 Total Visit Minutes 55 Visit Number 14 Number of SURGICAL GARMENT ASSEMBLER Visits 2 PT-OP-B Current Condition Start: 08/24/21 09:51 Freq: Status: Active Protocol: Document 08/24/21 09:45 [facility] (Rec: 08/24/21 09:56 [facility] [id number]) Current Condition History of Current Condition 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 She also notes that despite going through pulmonary rehab she still feels short of breath all the time. 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, PHM also includes encephalopathy, hair loss, diabetes, [place] in 2019 with 2 stents placed Prior Treatments and Tests Pt has recieved PT in the past for ankle and foot ROM, balance, gait training, MFR and manual therapy techniques to improve ankle and foot mobility Treatment Goals Patient/Caregiver Goals Pts goals include improving ankle and foot mobility and decreasing stiffness and pain PT-OP-C Subjective Start: 08/24/21 09:51 Freq: Status: Active Protocol: Document 11/15/21 11:57 MA (Rec: 11/15/21 13:04 MA [id number]) OP-PT Subjective Patient Comments Patient Comments Pt had burning L foot pain last night and could not get up and walk due to pain. PT-OP-F Manual Assessment Start: 08/30/21 13:57 Freq: Status: Active Protocol: Document 08/24/21 09:45 [facility] (Rec: 08/30/21 14:01 [facility] [id number]) Manual Assessments Soft Tissue Assessment Soft Tissue Mobility Assessment scleraderma throughout the calf and plantar fascia making tissue mobililty very difficult. Pt responds well to MFR and manual stretching PT-OP-J Posture/Palpation/Skin Start: 08/24/21 09:51 Freq: Status: Active Protocol: Document 08/24/21 09:45 [facility] (Rec: 08/30/21 09:42 [facility] [id number]) Palpation Assessment Location plantar fascia Palpation Location bilateral plantar fascia Palpation Findings Soft Tissue Tightness, Tenderness Palpation Details guarded and tight plantar fascia bilaterally PT-OP-K Range of Motion Start: 08/24/21 09:51 Freq: Status: Active Protocol: Document 08/24/21 09:45 [facility] (Rec: 08/30/21 09:42 [facility] [id number]) Ankle and Foot Goniometric Range of Motion Ankle and Foot Measured in Degrees Right Dorsiflexion with Knee Flexed 2 Dorsiflexion with Knee Extended 2 Plantarflexion 6 Inversion 5 Eversion 4 Comments very poor limited ankle mobility Left Dorsiflexion with Knee Flexed 3 Dorsiflexion with Knee Extended 2 Plantarflexion 5 Inversion 5 Eversion 4 Comments very poor limited ankle mobility Ankle and Foot ROM Limitations ROM Limitations Soft Tissue Tightness, Contracture,Pain Comments pt is very limited in ankle and foot ROM, the scleroderma has restricted her joint ROM so much that she only has a few degrees in all planes for her ankle. I am able to mobilize her metatarsals with very limited ROM, tightness in the calf and and plantar fascia B also limits ROM PT-OP-T Assessment and Plan Start: 08/24/21 09:51 Freq: Status: Active Protocol: Document 11/21/21 09:57 [facility] (Rec: 11/21/21 10:01 [facility] [id number]) Physical Therapy Assessment Goals 3 Impairment LE, foot and ankle pain rated 7/10 /27- 8/10 pain; pt feels her pain is getting worse but maybe due to not having PT for 1 month Deburring And Tooling Machine Operator Goal (LTG) With manual therapy techniques , ROM exercises, stretches, and mobility exercises Fay has a reduction in pain by 2-3 numbers on the pain scale LTG Duration 12 weeks 2 Impairment B Calf and plantar fascia tightness and pain limiting pts ability to walk Short Term Goal (STG) Fay is educated on stretches and manual techniques she can do at home to help with plantar fascia and calf tightness As of 11/15/21 Fay has been educated on stretches to work on at home to help with plantar fascia tightness and calf tightness STG Duration 4 weeks Prison Goal (LTG) Fay notes a overall reduction in tightness decreasing her pain with walking No change LTG Duration 12 weeks 1 Impairment Poor ankle and foot ROM affecting balance and gait Prison Goal (LTG) Fay is able to improve her ankle ROM by 5 degrees into DF to assist with gait and balance As of 11/15/21 no change with gait or balance LTG Duration 12 weeks Progress Towards Goals Progress Towards Goals Slow Progress due to Activity Tolerance,Slow Progress due to Attendance Issues Assessment Summary Assessment Fay has shown slow progression with PT due to current medical issues and fatigue. Fay is able to get to neutral DF during AROM and can passively be ranged to ~2 degrees bilaterally. She is having increased pain recently to 02/28 but admits it may be due to not going to pulmonary rehab or PT for several weeks while she had family in town. Pt's medial feet are both purple today and plantar surface of R foot near MT joints. Color improved to a more pink natural color after STM and PROM L>R. SURGICAL GARMENT ASSEMBLER discusses concern over purple discoloration to pt and requests she continue to check them and perform HEP regularly to improve circulation. Pt instructed to contact MD if discoloration worsens Physical Therapy Plan Frequency and Duration Frequency of Treatment 1x/Week Duration of Treatment 8 Plan of Care Start Date 11/15/21 Plan of Care End Date 01/15/22 Therapeutic Interventions Therapeutic Interventions Balance Training,Gait Training ,Home Exercise Program,Joint Mobilizations,Manual Therapy, Patient/Caregiver Education, Self-Care/Home Management,Soft Tissue Mobilization, Therapeutic Exercises Next Visit Focus/Plan Next Note Type Treatment Note Next Visit Plan Pt requests exercises for strengthening LEs/hips next session. Review appropriate calf stretches, continue progressing ankle ROM and mobility, plantar fascia relief B, cardio conditioning and strength
--- NOTE | 2021-11-21 10:01 | PT.OPPOC ---
Physical, Occupational & Speech Therapy At [facility] Current Diagnoses Systemic sclerosis, unspecified (11/15/21) Unsteadiness on feet (11/15/21) Visit Care Team Role Provider Type Timur Schwartz MD Attending Provider Physician Family Provider Primary Care Provider Referring Provider Specialty: Internal Medicine Address: [address] [place] [address], [facility] Email: [email or web address] Plan Of Care PT-OP-T Assessment and Plan Start: 08/24/21 09:51 Freq: Status: Active Protocol: Document 11/21/21 09:57 [facility] (Rec: 11/21/21 10:01 [facility] [id number]) Physical Therapy Assessment Goals 3 Impairment LE, foot and ankle pain rated 7/10 11/15- 8/10 pain; pt feels her pain is getting worse but maybe due to not having PT for 1 month Usp Goal (LTG) With manual therapy techniques , ROM exercises, stretches, and mobility exercises Fay has a reduction in pain by 2-3 numbers on the pain scale LTG Duration 12 weeks 2 Impairment B Calf and plantar fascia tightness and pain limiting pts ability to walk Short Term Goal (STG) Fay is educated on stretches and manual techniques she can do at home to help with plantar fascia and calf tightness As of 11/15/21 Fay has been educated on stretches to work on at home to help with plantar fascia tightness and calf tightness STG Duration 4 weeks Computerized Machine Fabric Cutter Goal (LTG) Fay notes a overall reduction in tightness decreasing her pain with walking No change LTG Duration 12 weeks 1 Impairment Poor ankle and foot ROM affecting balance and gait Usp Goal (LTG) Fay is able to improve her ankle ROM by 5 degrees into DF to assist with gait and balance As of 11/15/21 no change with gait or balance LTG Duration 12 weeks Progress Towards Goals Progress Towards Goals Slow Progress due to Activity Tolerance,Slow Progress due to Attendance Issues Assessment Summary Assessment Fay has shown slow progression with PT due to current medical issues and fatigue. Fay is able to get to neutral DF during AROM and can passively be ranged to ~2 degrees bilaterally. She is having increased pain recently to 8/10 but admits it may be due to not going to pulmonary rehab or PT for several weeks while she had family in town. Pt's medial feet are both purple today and plantar surface of R foot near MT joints. Color improved to a more pink natural color after STM and PROM L>R. COMPUTER APPLICATIONS ENGINEER discusses concern over purple discoloration to pt and requests she continue to check them and perform HEP regularly to improve circulation. Pt instructed to contact MD if discoloration worsens Physical Therapy Plan Frequency and Duration Frequency of Treatment 1x/Week Duration of Treatment 8 Plan of Care Start Date 11/15/21 Plan of Care End Date 01/15/22 Therapeutic Interventions Therapeutic Interventions Balance Training,Gait Training ,Home Exercise Program,Joint Mobilizations,Manual Therapy, Patient/Caregiver Education, Self-Care/Home Management,Soft Tissue Mobilization, Therapeutic Exercises Next Visit Focus/Plan Next Note Type Treatment Note Next Visit Plan Pt requests exercises for strengthening LEs/hips next session. Review appropriate calf stretches, continue progressing ankle ROM and mobility, plantar fascia relief B, cardio conditioning and strength Plan of Care Dates Plan of Care Start Date 11/15/21 Plan of Care End Date 01/15/22 Electronically Signed by: Nidhi Villanueva, PT 11/21/21 1001 If you are in agreement with this Plan of Care, please return a signed and dated copy. I have reviewed this Plan of Care and certify that the skilled therapy services above are required to meet the patient?s needs. Physician Signature Date Printed Name and Credentials Clinical Instructor Signature Printed Name and Credentials
--- NOTE | 2021-11-22 09:18 | PT.OPPOC ---
Physical, Occupational & Speech Therapy At [facility] Current Diagnoses Systemic sclerosis, unspecified (11/15/21) Unsteadiness on feet (11/15/21) Visit Care Team Role Provider Type Timur Schwartz MD Attending Provider Physician Family Provider Primary Care Provider Referring Provider Specialty: Internal Medicine Address: [address] [place] [address], [facility] Email: [email or web address] Plan Of Care PT-OP-T Assessment and Plan Start: 08/24/21 09:51 Freq: Status: Active Protocol: Document 11/21/21 09:57 [facility] (Rec: 11/21/21 10:01 [facility] [id number]) Physical Therapy Assessment Goals 3 Impairment LE, foot and ankle pain rated 7/10 11/15- 8/10 pain; pt feels her pain is getting worse but maybe due to not having PT for 1 month Custodial Goal (LTG) With manual therapy techniques , ROM exercises, stretches, and mobility exercises Fay has a reduction in pain by 2-3 numbers on the pain scale LTG Duration 12 weeks 2 Impairment B Calf and plantar fascia tightness and pain limiting pts ability to walk Short Term Goal (STG) Fay is educated on stretches and manual techniques she can do at home to help with plantar fascia and calf tightness As of 11/15/21 Fay has been educated on stretches to work on at home to help with plantar fascia tightness and calf tightness STG Duration 4 weeks Labor And Delivery Nurse Goal (LTG) Fay notes a overall reduction in tightness decreasing her pain with walking No change LTG Duration 12 weeks 1 Impairment Poor ankle and foot ROM affecting balance and gait Custodial Goal (LTG) Fay is able to improve her ankle ROM by 5 degrees into DF to assist with gait and balance As of 11/15/21 no change with gait or balance LTG Duration 12 weeks Progress Towards Goals Progress Towards Goals Slow Progress due to Activity Tolerance,Slow Progress due to Attendance Issues Assessment Summary Assessment Fay has shown slow progression with PT due to current medical issues and fatigue. Fay is able to get to neutral DF during AROM and can passively be ranged to ~2 degrees bilaterally. She is having increased pain recently to 8/10 but admits it may be due to not going to pulmonary rehab or PT for several weeks while she had family in town. Pt's medial feet are both purple today and plantar surface of R foot near MT joints. Color improved to a more pink natural color after STM and PROM L>R. WINDOW COVERING SALES CONSULTANT discusses concern over purple discoloration to pt and requests she continue to check them and perform HEP regularly to improve circulation. Pt instructed to contact MD if discoloration worsens Physical Therapy Plan Frequency and Duration Frequency of Treatment 2x/Week Duration of Treatment 8 Plan of Care Start Date 11/15/21 Plan of Care End Date 01/15/22 Therapeutic Interventions Therapeutic Interventions Balance Training,Gait Training ,Home Exercise Program,Joint Mobilizations,Manual Therapy, Patient/Caregiver Education, Self-Care/Home Management,Soft Tissue Mobilization, Therapeutic Exercises Next Visit Focus/Plan Next Note Type Treatment Note Next Visit Plan Pt requests exercises for strengthening LEs/hips next session. Review appropriate calf stretches, continue progressing ankle ROM and mobility, plantar fascia relief B, cardio conditioning and strength Plan of Care Dates Plan of Care Start Date 11/15/21 Plan of Care End Date 01/15/22 Electronically Signed by: Nidhi Villanueva, PT 11/22/21 0918 If you are in agreement with this Plan of Care, please return a signed and dated copy. I have reviewed this Plan of Care and certify that the skilled therapy services above are required to meet the patient?s needs. Physician Signature Date Printed Name and Credentials Clinical Instructor Signature Printed Name and Credentials
--- NOTE | 2021-11-23 14:55 | PT.OTN ---
Current Diagnoses Systemic sclerosis, unspecified (11/23/21) Unsteadiness on feet (11/23/21) Physical Therapy Treatment Note PT-OP-A Visit Information Start: 08/24/21 09:51 Freq: Status: Active Protocol: Document 11/23/21 13:00 [facility] (Rec: 11/23/21 14:55 [facility] [id number]) Out-Patient Physical Therapy Visit Information Visit Information Visit Type Treatment Note Visit Start Time 13:00 Visit Stop Time 13:45 Total Visit Minutes 45 Visit Number 15 Number of ASTRONOMY PROFESSOR Visits 0 PT-OP-B Current Condition Start: 08/24/21 09:51 Freq: Status: Active Protocol: Document 08/24/21 09:45 [facility] (Rec: 08/24/21 09:56 [facility] [id number]) Current Condition History of Current Condition 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 She also notes that despite going through pulmonary rehab she still feels short of breath all the time. 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, PHM also includes encephalopathy, hair loss, diabetes, [place] in 2019 with 2 stents placed Prior Treatments and Tests Pt has recieved PT in the past for ankle and foot ROM, balance, gait training, MFR and manual therapy techniques to improve ankle and foot mobility Treatment Goals Patient/Caregiver Goals Pts goals include improving ankle and foot mobility and decreasing stiffness and pain PT-OP-C Subjective Start: 08/24/21 09:51 Freq: Status: Active Protocol: Document 11/23/21 13:00 [facility] (Rec: 11/23/21 14:55 [facility] [id number]) OP-PT Subjective Patient Comments Patient Comments Pt reports she underwent a needle EMG test in [place] which was full body testing and it was horribly painful. She feels pain in her body that is residual from that PT-OP-F Manual Assessment Start: 08/30/21 13:57 Freq: Status: Active Protocol: Document 08/24/21 09:45 [facility] (Rec: 08/30/21 14:01 [facility] [id number]) Manual Assessments Soft Tissue Assessment Soft Tissue Mobility Assessment scleraderma throughout the calf and plantar fascia making tissue mobililty very difficult. Pt responds well to MFR and manual stretching PT-OP-J Posture/Palpation/Skin Start: 08/24/21 09:51 Freq: Status: Active Protocol: Document 08/24/21 09:45 [facility] (Rec: 08/30/21 09:42 [facility] [id number]) Palpation Assessment Location plantar fascia Palpation Location bilateral plantar fascia Palpation Findings Soft Tissue Tightness, Tenderness Palpation Details guarded and tight plantar fascia bilaterally PT-OP-K Range of Motion Start: 08/24/21 09:51 Freq: Status: Active Protocol: Document 08/24/21 09:45 [facility] (Rec: 08/30/21 09:42 [facility] [id number]) Ankle and Foot Goniometric Range of Motion Ankle and Foot Right Dorsiflexion with Knee Flexed 2 Dorsiflexion with Knee Extended 2 Plantarflexion 6 Inversion 5 Eversion 4 Comments very poor limited ankle mobility Left Dorsiflexion with Knee Flexed 3 Dorsiflexion with Knee Extended 2 Plantarflexion 5 Inversion 5 Eversion 4 Comments very poor limited ankle mobility Ankle and Foot ROM Limitations ROM Limitations Soft Tissue Tightness, Contracture,Pain Comments pt is very limited in ankle and foot ROM, the scleroderma has restricted her joint ROM so much that she only has a few degrees in all planes for her ankle. I am able to mobilize her metatarsals with very limited ROM, tightness in the calf and and plantar fascia B also limits ROM PT-OP-Q Treatments Start: 08/30/21 14:15 Freq: Status: Active Protocol: Document 11/23/21 13:00 [facility] (Rec: 11/23/21 14:55 [facility] [id number]) Manual Therapy Treatment Soft Tissue Mobilization Upper, middle traps Body Location B Mobilization Type Cross-Friction,Rolling Intensity/Depth Moderate Body Position Sitting Comments cued slow breaths and worked on diaphragmatic breathing in sitting B patellar tendon Body Location B Mobilization Type Cross-Friction Intensity/Depth Moderate Body Position Sitting Comments Long sitting Extra time spend over R patellar tendon to allow for elevation durign knee flexion. I can breath better. Joint Mobilizations MTPs, intertarsals, calcaneus on talus/navicular Joint B Direction AP, med/lat Grade II Body Position Sitting Comments long sitting thoracic spine Joint PA glides in sitting Direction PA Grade II Body Position Sitting Comments pt had good tolerance today for seated thoracic mobilizations, worked on deep breaths during throacic mobilizations Patella mobes Joint B Direction med/lat/sup/inf Grade II Body Position Sitting Comments Long sitting. Manual Techniques 2 Type manual stretching for the gastroc/soleus complex Body Location B Body Position Sitting Comments long sitting 1 Type PROM stretches were performed at B ankles and feet, manual stretching Body Location B PF/ DF, IV/EV Body Position Sitting Comments improving ankle ROM with manual stretches PT-OP-T Assessment and Plan Start: 08/24/21 09:51 Freq: Status: Active Protocol: Document 11/23/21 13:00 [facility] (Rec: 11/23/21 14:55 [facility] [id number]) Physical Therapy Assessment Assessment Summary Assessment Fay was in increased pain today after her needle EMG testing. She did not wish to engage in cardio exercise today Physical Therapy Plan Frequency and Duration Frequency of Treatment 2x/Week Duration of Treatment 8 Plan of Care Start Date 11/15/21 Plan of Care End Date 01/15/22 Therapeutic Interventions Therapeutic Interventions Balance Training,Gait Training ,Home Exercise Program,Joint Mobilizations,Manual Therapy, Patient/Caregiver Education, Self-Care/Home Management,Soft Tissue Mobilization, Therapeutic Exercises Next Visit Focus/Plan Next Note Type Treatment Note Next Visit Plan Pt requests exercises for strengthening LEs/hips next session. Review appropriate calf stretches, continue progressing ankle ROM and mobility, plantar fascia relief B, cardio conditioning and strength
--- NOTE | 2021-11-29 13:18 | PT.OTN ---
Current Diagnoses Systemic sclerosis, unspecified (11/29/21) Unsteadiness on feet (11/29/21) Physical Therapy Treatment Note PT-OP-A Visit Information Start: 08/24/21 09:51 Freq: Status: Active Protocol: Document 11/29/21 11:24 [facility] (Rec: 11/29/21 13:13 [facility] [id number]) Out-Patient Physical Therapy Visit Information Visit Information Visit Type Treatment Note Visit Start Time 11:20 Visit Stop Time 12:00 Total Visit Minutes 40 Visit Number 16 PT-OP-B Current Condition Start: 08/24/21 09:51 Freq: Status: Active Protocol: Document 08/24/21 09:45 [facility] (Rec: 08/24/21 09:56 [facility] [id number]) Current Condition History of Current Condition 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 She also notes that despite going through pulmonary rehab she still feels short of breath all the time. 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, PHM also includes encephalopathy, hair loss, diabetes, [place] in 2019 with 2 stents placed Prior Treatments and Tests Pt has recieved PT in the past for ankle and foot ROM, balance, gait training, MFR and manual therapy techniques to improve ankle and foot mobility Treatment Goals Patient/Caregiver Goals Pts goals include improving ankle and foot mobility and decreasing stiffness and pain PT-OP-C Subjective Start: 08/24/21 09:51 Freq: Status: Active Protocol: Document 11/29/21 11:24 [facility] (Rec: 11/29/21 13:13 [facility] [id number]) OP-PT Subjective Patient Comments Patient Comments pt notes her feet and 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 She is feeling more depression since her needle EMG and she is in more pain. PT-OP-F Manual Assessment Start: 08/30/21 13:57 Freq: Status: Active Protocol: Document 08/24/21 09:45 [facility] (Rec: 08/30/21 14:01 [facility] [id number]) Manual Assessments Soft Tissue Assessment Soft Tissue Mobility Assessment scleraderma throughout the calf and plantar fascia making tissue mobililty very difficult. Pt responds well to MFR and manual stretching PT-OP-J Posture/Palpation/Skin Start: 08/24/21 09:51 Freq: Status: Active Protocol: Document 08/24/21 09:45 [facility] (Rec: 08/30/21 09:42 [facility] [id number]) Palpation Assessment Location plantar fascia Palpation Location bilateral plantar fascia Palpation Findings Soft Tissue Tightness, Tenderness Palpation Details guarded and tight plantar fascia bilaterally PT-OP-K Range of Motion Start: 08/24/21 09:51 Freq: Status: Active Protocol: Document 08/24/21 09:45 [facility] (Rec: 08/30/21 09:42 [facility] [id number]) Ankle and Foot Goniometric Range of Motion Ankle and Foot Right Dorsiflexion with Knee Flexed 2 Dorsiflexion with Knee Extended 2 Plantarflexion 6 Inversion 5 Eversion 4 Comments very poor limited ankle mobility Left Dorsiflexion with Knee Flexed 3 Dorsiflexion with Knee Extended 2 Plantarflexion 5 Inversion 5 Eversion 4 Comments very poor limited ankle mobility Ankle and Foot ROM Limitations ROM Limitations Soft Tissue Tightness, Contracture,Pain Comments pt is very limited in ankle and foot ROM, the scleroderma has restricted her joint ROM so much that she only has a few degrees in all planes for her ankle. I am able to mobilize her metatarsals with very limited ROM, tightness in the calf and and plantar fascia B also limits ROM PT-OP-Q Treatments Start: 08/30/21 14:15 Freq: Status: Active Protocol: Document 11/29/21 11:24 [facility] (Rec: 11/29/21 13:13 [facility] [id number]) Manual Therapy Treatment Soft Tissue Mobilization Upper, middle traps Body Location B Mobilization Type Cross-Friction,Rolling Intensity/Depth Moderate Body Position Sitting Comments cued slow breaths and worked on diaphragmatic breathing in sitting 1 Body Location B anterior and posterior shins /feet Mobilization Type Myofascial Release Intensity/Depth Superficial Body Position long sitting (rolled towel under B ischial tuberosities) Comments MFR was performed to B anterior and posterior shins and feet, PROM was performed at the ankles and feet Joint Mobilizations MTPs, intertarsals, calcaneus on talus/navicular Joint B Direction AP, med/lat Grade II Body Position Sitting Comments long sitting Patella mobes Joint B Direction med/lat/sup/inf Grade II Body Position Sitting Comments Long sitting. Manual Techniques 2 Type manual stretching for the gastroc/soleus complex Body Location B Body Position Sitting Comments long sitting 1 Type PROM stretches were performed at B ankles and feet, manual stretching Body Location B PF/ DF, IV/EV Body Position Sitting Comments improving ankle ROM with manual stretches PT-OP-T Assessment and Plan Start: 08/24/21 09:51 Freq: Status: Active Protocol: Document 11/29/21 11:24 [facility] (Rec: 11/29/21 13:13 [facility] [id number]) Physical Therapy Assessment Assessment Summary Assessment Fay continues to be in more pain after her needle EMG test . SHe was able to get on the biodex today following the manual therapy and went x 10 min Physical Therapy Plan Frequency and Duration Frequency of Treatment 2x/Week Duration of Treatment 8 Plan of Care Start Date 11/15/21 Plan of Care End Date 01/15/22 Therapeutic Interventions Therapeutic Interventions Balance Training,Gait Training ,Home Exercise Program,Joint Mobilizations,Manual Therapy, Patient/Caregiver Education, Self-Care/Home Management,Soft Tissue Mobilization, Therapeutic Exercises Next Visit Focus/Plan Next Note Type Treatment Note Next Visit Plan continue working on ankle mobility, pt
--- NOTE | 2021-12-04 12:52 | PT.OTN ---
Current Diagnoses Systemic sclerosis, unspecified (12/04/21) Unsteadiness on feet (12/04/21) Physical Therapy Treatment Note PT-OP-A Visit Information Start: 08/24/21 09:51 Freq: Status: Active Protocol: Document 12/04/21 11:57 [facility] (Rec: 12/04/21 12:51 [facility] [id number]) Out-Patient Physical Therapy Visit Information Visit Information Visit Type Treatment Note Visit Start Time 12:00 Visit Stop Time 12:45 Total Visit Minutes 45 Visit Number 17 Number of WASH OIL PUMP OPERATOR HELPER Visits 1 PT-OP-B Current Condition Start: 08/24/21 09:51 Freq: Status: Active Protocol: Document 08/24/21 09:45 [facility] (Rec: 08/24/21 09:56 [facility] [id number]) Current Condition History of Current Condition 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 She also notes that despite going through pulmonary rehab she still feels short of breath all the time. 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, PHM also includes encephalopathy, hair loss, diabetes, [place] in 2019 with 2 stents placed Prior Treatments and Tests Pt has recieved PT in the past for ankle and foot ROM, balance, gait training, MFR and manual therapy techniques to improve ankle and foot mobility Treatment Goals Patient/Caregiver Goals Pts goals include improving ankle and foot mobility and decreasing stiffness and pain PT-OP-C Subjective Start: 08/24/21 09:51 Freq: Status: Active Protocol: Document 12/04/21 11:57 [facility] (Rec: 12/04/21 12:52 [facility] [id number]) OP-PT Subjective Patient Comments Patient Comments Pt states she had EMG test and still has a bit of PTSD from it and cries when she thinks about how painful it was. PT-OP-F Manual Assessment Start: 08/30/21 13:57 Freq: Status: Active Protocol: Document 08/24/21 09:45 [facility] (Rec: 08/30/21 14:01 [facility] [id number]) Manual Assessments Soft Tissue Assessment Soft Tissue Mobility Assessment scleraderma throughout the calf and plantar fascia making tissue mobililty very difficult. Pt responds well to MFR and manual stretching PT-OP-J Posture/Palpation/Skin Start: 08/24/21 09:51 Freq: Status: Active Protocol: Document 08/24/21 09:45 [facility] (Rec: 08/30/21 09:42 [facility] [id number]) Palpation Assessment Location plantar fascia Palpation Location bilateral plantar fascia Palpation Findings Soft Tissue Tightness, Tenderness Palpation Details guarded and tight plantar fascia bilaterally PT-OP-K Range of Motion Start: 08/24/21 09:51 Freq: Status: Active Protocol: Document 08/24/21 09:45 [facility] (Rec: 08/30/21 09:42 [facility] [id number]) Ankle and Foot Goniometric Range of Motion Ankle and Foot Right Dorsiflexion with Knee Flexed 2 Dorsiflexion with Knee Extended 2 Plantarflexion 6 Inversion 5 Eversion 4 Comments very poor limited ankle mobility Left Dorsiflexion with Knee Flexed 3 Dorsiflexion with Knee Extended 2 Plantarflexion 5 Inversion 5 Eversion 4 Comments very poor limited ankle mobility Ankle and Foot ROM Limitations ROM Limitations Soft Tissue Tightness, Contracture,Pain Comments pt is very limited in ankle and foot ROM, the scleroderma has restricted her joint ROM so much that she only has a few degrees in all planes for her ankle. I am able to mobilize her metatarsals with very limited ROM, tightness in the calf and and plantar fascia B also limits ROM PT-OP-Q Treatments Start: 08/30/21 14:15 Freq: Status: Active Protocol: Document 12/04/21 11:57 [facility] (Rec: 12/04/21 12:51 [facility] [id number]) Manual Therapy Treatment Soft Tissue Mobilization B patellar tendon Body Location B Mobilization Type Cross-Friction Intensity/Depth Moderate Body Position Sitting Comments Long sitting Extra time spend over R patellar tendon to allow for elevation durign knee flexion. I can breath better. 1 Body Location B anterior and posterior shins /feet Mobilization Type Myofascial Release Intensity/Depth Superficial Body Position long sitting (rolled towel under B ischial tuberosities) Comments MFR was performed to B anterior and posterior shins and feet, PROM was performed at the ankles and feet Joint Mobilizations MTPs, intertarsals, calcaneus on talus/navicular Joint B Direction AP, med/lat Grade II Body Position Sitting Comments long sitting Patella mobes Joint B Direction med/lat/sup/inf Grade II Body Position Sitting Comments Long sitting. PT-OP-T Assessment and Plan Start: 08/24/21 09:51 Freq: Status: Active Protocol: Document 12/04/21 11:57 [facility] (Rec: 12/04/21 12:51 [facility] [id number]) Physical Therapy Assessment Goals 3 Impairment LE, foot and ankle pain rated 7/10 11/15- 8/10 pain; pt feels her pain is getting worse but maybe due to not having PT for 1 month Drug Abuse Social Worker Goal (LTG) With manual therapy techniques , ROM exercises, stretches, and mobility exercises Fay has a reduction in pain by 2-3 numbers on the pain scale LTG Duration 12 weeks 2 Impairment B Calf and plantar fascia tightness and pain limiting pts ability to walk Short Term Goal (STG) Fay is educated on stretches and manual techniques she can do at home to help with plantar fascia and calf tightness As of 11/15/21 Fay has been educated on stretches to work on at home to help with plantar fascia tightness and calf tightness STG Duration 4 weeks Drug Abuse Social Worker Goal (LTG) Fay notes a overall reduction in tightness decreasing her pain with walking No change LTG Duration 12 weeks 1 Impairment Poor ankle and foot ROM affecting balance and gait Skilled Nursing Goal (LTG) Fay is able to improve her ankle ROM by 5 degrees into DF to assist with gait and balance As of 11/15/21 no change with gait or balance LTG Duration 12 weeks Assessment Summary Assessment Pt arrives with SOB that improves after manual to LEs with pt stating, I always feel like I breathe better after you guys work on my legs . She has improved PROM DF after manual work. Physical Therapy Plan Frequency and Duration Frequency of Treatment 2x/Week Duration of Treatment 8 Plan of Care Start Date 11/15/21 Plan of Care End Date 01/15/22 Therapeutic Interventions Therapeutic Interventions Balance Training,Gait Training ,Home Exercise Program,Joint Mobilizations,Manual Therapy, Patient/Caregiver Education, Self-Care/Home Management,Soft Tissue Mobilization, Therapeutic Exercises Next Visit Focus/Plan Next Note Type Treatment Note Next Visit Plan continue working on ankle mobility, pt
--- NOTE | 2021-12-12 12:37 | PT.OTN ---
Current Diagnoses Systemic sclerosis, unspecified (12/12/21) Unsteadiness on feet (12/12/21) Physical Therapy Treatment Note PT-OP-A Visit Information Start: 08/24/21 09:51 Freq: Status: Active Protocol: Document 12/12/21 11:20 [facility] (Rec: 12/12/21 12:20 [facility] [id number]) Out-Patient Physical Therapy Visit Information Visit Information Visit Type Treatment Note Visit Start Time 11:20 Visit Stop Time 12:05 Total Visit Minutes 45 Visit Number 18 PT-OP-B Current Condition Start: 08/24/21 09:51 Freq: Status: Active Protocol: Document 08/24/21 09:45 [facility] (Rec: 08/24/21 09:56 [facility] [id number]) Current Condition History of Current Condition 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 She also notes that despite going through pulmonary rehab she still feels short of breath all the time. 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, PHM also includes encephalopathy, hair loss, diabetes, [place] in 2019 with 2 stents placed Prior Treatments and Tests Pt has recieved PT in the past for ankle and foot ROM, balance, gait training, MFR and manual therapy techniques to improve ankle and foot mobility Treatment Goals Patient/Caregiver Goals Pts goals include improving ankle and foot mobility and decreasing stiffness and pain PT-OP-C Subjective Start: 08/24/21 09:51 Freq: Status: Active Protocol: Document 12/12/21 11:20 [facility] (Rec: 12/12/21 12:20 [facility] [id number]) OP-PT Subjective Patient Comments Patient Comments pt still is feeling the buring in top of her feet and along the lateral beckham bones PT-OP-F Manual Assessment Start: 08/30/21 13:57 Freq: Status: Active Protocol: Document 08/24/21 09:45 [facility] (Rec: 08/30/21 14:01 [facility] [id number]) Manual Assessments Soft Tissue Assessment Soft Tissue Mobility Assessment scleraderma throughout the calf and plantar fascia making tissue mobililty very difficult. Pt responds well to MFR and manual stretching PT-OP-J Posture/Palpation/Skin Start: 08/24/21 09:51 Freq: Status: Active Protocol: Document 08/24/21 09:45 [facility] (Rec: 08/30/21 09:42 [facility] [id number]) Palpation Assessment Location plantar fascia Palpation Location bilateral plantar fascia Palpation Findings Soft Tissue Tightness, Tenderness Palpation Details guarded and tight plantar fascia bilaterally PT-OP-K Range of Motion Start: 08/24/21 09:51 Freq: Status: Active Protocol: Document 08/24/21 09:45 [facility] (Rec: 08/30/21 09:42 [facility] [id number]) Ankle and Foot Goniometric Range of Motion Ankle and Foot Right Dorsiflexion with Knee Flexed 2 Dorsiflexion with Knee Extended 2 Plantarflexion 6 Inversion 5 Eversion 4 Comments very poor limited ankle mobility Left Dorsiflexion with Knee Flexed 3 Dorsiflexion with Knee Extended 2 Plantarflexion 5 Inversion 5 Eversion 4 Comments very poor limited ankle mobility Ankle and Foot ROM Limitations ROM Limitations Soft Tissue Tightness, Contracture,Pain Comments pt is very limited in ankle and foot ROM, the scleroderma has restricted her joint ROM so much that she only has a few degrees in all planes for her ankle. I am able to mobilize her metatarsals with very limited ROM, tightness in the calf and and plantar fascia B also limits ROM PT-OP-Q Treatments Start: 08/30/21 14:15 Freq: Status: Active Protocol: Document 12/12/21 11:20 [facility] (Rec: 12/12/21 12:34 [facility] [id number]) Cardio Equipment Recumbent Stepper (Sci-Fit) Duration (Minutes) 15 Manual Therapy Treatment Soft Tissue Mobilization Upper, middle traps Body Location B Mobilization Type Cross-Friction,Rolling Intensity/Depth Moderate Body Position Sitting Comments cued slow breaths and worked on diaphragmatic breathing in sitting B patellar tendon Body Location B Mobilization Type Cross-Friction Intensity/Depth Moderate Body Position Sitting Comments Long sitting Extra time spend over R patellar tendon to allow for elevation durign knee flexion. I can breath better. 1 Body Location B anterior and posterior shins /feet Mobilization Type Myofascial Release Intensity/Depth Superficial Body Position long sitting (rolled towel under B ischial tuberosities) Comments MFR was performed to B anterior and posterior shins and feet, PROM was performed at the ankles and feet Joint Mobilizations MTPs, intertarsals, calcaneus on talus/navicular Joint B Direction AP, med/lat Grade II Body Position Sitting Comments long sitting Patella mobes Joint B Direction med/lat/sup/inf Grade II Body Position Sitting Comments Long sitting. Manual Techniques 2 Type manual stretching for the gastroc/soleus complex Body Location B Body Position Sitting Comments long sitting 1 Type PROM stretches were performed at B ankles and feet, manual stretching Body Location B PF/ DF, IV/EV Body Position Sitting Comments improving ankle ROM with manual stretches PT-OP-T Assessment and Plan Start: 08/24/21 09:51 Freq: Status: Active Protocol: Document 12/12/21 11:20 [facility] (Rec: 12/12/21 12:34 [facility] [id number]) Physical Therapy Assessment Assessment Summary Assessment pts dorsal aspsect of B feet were much redder today. She does have a detective investigator appt next week. I encouraged her to continue with her exercises at home and keep up with pulmonary therapy for continued circulation. Fay did stay to ride the recumbant stepper today after her PT session Physical Therapy Plan Frequency and Duration Frequency of Treatment 2x/Week Duration of Treatment 8 Plan of Care Start Date 11/15/21 Plan of Care End Date 01/15/22 Therapeutic Interventions Therapeutic Interventions Balance Training,Gait Training ,Home Exercise Program,Joint Mobilizations,Manual Therapy, Patient/Caregiver Education, Self-Care/Home Management,Soft Tissue Mobilization, Therapeutic Exercises Next Visit Focus/Plan Next Note Type Treatment Note Next Visit Plan continue working on ankle mobility, MFR techniques
--- NOTE | 2021-12-14 18:10 | PT.OTN ---
Current Diagnoses Systemic sclerosis, unspecified (12/14/21) Unsteadiness on feet (12/14/21) Physical Therapy Treatment Note PT-OP-A Visit Information Start: 08/24/21 09:51 Freq: Status: Active Protocol: Document 12/14/21 13:00 [facility] (Rec: 12/14/21 13:48 [facility] [id number]) Out-Patient Physical Therapy Visit Information Visit Information Visit Type Treatment Note Visit Start Time 13:00 Visit Stop Time 13:45 Total Visit Minutes 45 Visit Number 19 PT-OP-B Current Condition Start: 08/24/21 09:51 Freq: Status: Active Protocol: Document 08/24/21 09:45 [facility] (Rec: 08/24/21 09:56 [facility] [id number]) Current Condition History of Current Condition 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 She also notes that despite going through pulmonary rehab she still feels short of breath all the time. 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, PHM also includes encephalopathy, hair loss, diabetes, [place] in 2019 with 2 stents placed Prior Treatments and Tests Pt has recieved PT in the past for ankle and foot ROM, balance, gait training, MFR and manual therapy techniques to improve ankle and foot mobility Treatment Goals Patient/Caregiver Goals Pts goals include improving ankle and foot mobility and decreasing stiffness and pain PT-OP-C Subjective Start: 08/24/21 09:51 Freq: Status: Active Protocol: Document 12/14/21 13:00 [facility] (Rec: 12/14/21 13:48 [facility] [id number]) OP-PT Subjective Patient Comments Patient Comments pt reports she slept a lot yesterday and felt down PT-OP-F Manual Assessment Start: 08/30/21 13:57 Freq: Status: Active Protocol: Document 08/24/21 09:45 [facility] (Rec: 08/30/21 14:01 [facility] [id number]) Manual Assessments Soft Tissue Assessment Soft Tissue Mobility Assessment scleraderma throughout the calf and plantar fascia making tissue mobililty very difficult. Pt responds well to MFR and manual stretching PT-OP-J Posture/Palpation/Skin Start: 08/24/21 09:51 Freq: Status: Active Protocol: Document 08/24/21 09:45 [facility] (Rec: 08/30/21 09:42 [facility] [id number]) Palpation Assessment Location plantar fascia Palpation Location bilateral plantar fascia Palpation Findings Soft Tissue Tightness, Tenderness Palpation Details guarded and tight plantar fascia bilaterally PT-OP-K Range of Motion Start: 08/24/21 09:51 Freq: Status: Active Protocol: Document 08/24/21 09:45 [facility] (Rec: 08/30/21 09:42 [facility] [id number]) Ankle and Foot Goniometric Range of Motion Ankle and Foot Right Dorsiflexion with Knee Flexed 2 Dorsiflexion with Knee Extended 2 Plantarflexion 6 Inversion 5 Eversion 4 Comments very poor limited ankle mobility Left Dorsiflexion with Knee Flexed 3 Dorsiflexion with Knee Extended 2 Plantarflexion 5 Inversion 5 Eversion 4 Comments very poor limited ankle mobility Ankle and Foot ROM Limitations ROM Limitations Soft Tissue Tightness, Contracture,Pain Comments pt is very limited in ankle and foot ROM, the scleroderma has restricted her joint ROM so much that she only has a few degrees in all planes for her ankle. I am able to mobilize her metatarsals with very limited ROM, tightness in the calf and and plantar fascia B also limits ROM PT-OP-Q Treatments Start: 08/30/21 14:15 Freq: Status: Active Protocol: Document 12/14/21 13:00 [facility] (Rec: 12/14/21 18:07 [facility] [id number]) Cardio Equipment Recumbent Stepper (Sci-Fit) Duration (Minutes) 15 Other after treatment Manual Therapy Treatment Soft Tissue Mobilization Upper, middle traps Body Location B Mobilization Type Cross-Friction,Rolling Intensity/Depth Moderate Body Position Sitting Comments cued slow breaths and worked on diaphragmatic breathing in sitting B patellar tendon Body Location B Mobilization Type Cross-Friction Intensity/Depth Moderate Body Position Sitting Comments Long sitting Extra time spend over R patellar tendon to allow for elevation durign knee flexion. I can breath better. Joint Mobilizations MTPs, intertarsals, calcaneus on talus/navicular Joint B Direction AP, med/lat Grade II Body Position Sitting Comments long sitting Manual Techniques 2 Type manual stretching for the gastroc/soleus complex Body Location B Body Position Sitting Comments long sitting 1 Type PROM stretches were performed at B ankles and feet, manual stretching Body Location B PF/ DF, IV/EV Body Position Sitting Comments improving ankle ROM with manual stretches PT-OP-T Assessment and Plan Start: 08/24/21 09:51 Freq: Status: Active Protocol: Document 12/14/21 13:00 [facility] (Rec: 12/14/21 15:59 [facility] [id number]) Physical Therapy Assessment Assessment Summary Assessment Fay reports that she felt more energy last visit after riding the bike following treatment. She wants to do it again today Physical Therapy Plan Frequency and Duration Frequency of Treatment 2x/Week Duration of Treatment 8 Plan of Care Start Date 11/15/21 Plan of Care End Date 01/15/22 Therapeutic Interventions Therapeutic Interventions Balance Training,Gait Training ,Home Exercise Program,Joint Mobilizations,Manual Therapy, Patient/Caregiver Education, Self-Care/Home Management,Soft Tissue Mobilization, Therapeutic Exercises Next Visit Focus/Plan Next Note Type Treatment Note Next Visit Plan continue working on ankle mobility, MFR techniques
--- NOTE | 2021-12-19 17:33 | PT.OTN ---
Current Diagnoses Systemic sclerosis, unspecified (12/19/21) Unsteadiness on feet (12/19/21) Physical Therapy Treatment Note PT-OP-A Visit Information Start: 08/24/21 09:51 Freq: Status: Active Protocol: Document 12/19/21 11:15 [facility] (Rec: 12/19/21 12:03 [facility] [id number]) Out-Patient Physical Therapy Visit Information Visit Information Visit Type Treatment Note Visit Start Time 12:15 Visit Stop Time 13:00 Total Visit Minutes 45 Visit Number 20 PT-OP-B Current Condition Start: 08/24/21 09:51 Freq: Status: Active Protocol: Document 08/24/21 09:45 [facility] (Rec: 08/24/21 09:56 [facility] [id number]) Current Condition History of Current Condition 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 She also notes that despite going through pulmonary rehab she still feels short of breath all the time. 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, PHM also includes encephalopathy, hair loss, diabetes, [place] in 2019 with 2 stents placed Prior Treatments and Tests Pt has recieved PT in the past for ankle and foot ROM, balance, gait training, MFR and manual therapy techniques to improve ankle and foot mobility Treatment Goals Patient/Caregiver Goals Pts goals include improving ankle and foot mobility and decreasing stiffness and pain PT-OP-C Subjective Start: 08/24/21 09:51 Freq: Status: Active Protocol: Document 12/19/21 11:15 [facility] (Rec: 12/19/21 12:03 [facility] [id number]) OP-PT Subjective Patient Comments Patient Comments pt reports her right great toe is very painful and red. She has a appt with her denture processor today She notes pain on the lateral aspect of her great toe and a swollen lump on top that is like fire PT-OP-F Manual Assessment Start: 08/30/21 13:57 Freq: Status: Active Protocol: Document 08/24/21 09:45 [facility] (Rec: 08/30/21 14:01 [facility] [id number]) Manual Assessments Soft Tissue Assessment Soft Tissue Mobility Assessment scleraderma throughout the calf and plantar fascia making tissue mobililty very difficult. Pt responds well to MFR and manual stretching PT-OP-J Posture/Palpation/Skin Start: 08/24/21 09:51 Freq: Status: Active Protocol: Document 08/24/21 09:45 [facility] (Rec: 08/30/21 09:42 [facility] [id number]) Palpation Assessment Location plantar fascia Palpation Location bilateral plantar fascia Palpation Findings Soft Tissue Tightness, Tenderness Palpation Details guarded and tight plantar fascia bilaterally PT-OP-K Range of Motion Start: 08/24/21 09:51 Freq: Status: Active Protocol: Document 08/24/21 09:45 [facility] (Rec: 08/30/21 09:42 [facility] [id number]) Ankle and Foot Goniometric Range of Motion Ankle and Foot Right Dorsiflexion with Knee Flexed 2 Dorsiflexion with Knee Extended 2 Plantarflexion 6 Inversion 5 Eversion 4 Comments very poor limited ankle mobility Left Dorsiflexion with Knee Flexed 3 Dorsiflexion with Knee Extended 2 Plantarflexion 5 Inversion 5 Eversion 4 Comments very poor limited ankle mobility Ankle and Foot ROM Limitations ROM Limitations Soft Tissue Tightness, Contracture,Pain Comments pt is very limited in ankle and foot ROM, the scleroderma has restricted her joint ROM so much that she only has a few degrees in all planes for her ankle. I am able to mobilize her metatarsals with very limited ROM, tightness in the calf and and plantar fascia B also limits ROM PT-OP-Q Treatments Start: 08/30/21 14:15 Freq: Status: Active Protocol: Document 12/19/21 11:15 [facility] (Rec: 12/19/21 17:25 [facility] [id number]) Manual Therapy Treatment Soft Tissue Mobilization B patellar tendon Body Location B Mobilization Type Cross-Friction Intensity/Depth Moderate Body Position Sitting Comments Long sitting Extra time spend over R patellar tendon to allow for elevation durign knee flexion. I can breath better. 1 Body Location B anterior and posterior shins /feet Mobilization Type Myofascial Release Intensity/Depth Superficial Body Position long sitting (rolled towel under B ischial tuberosities) Comments MFR was performed to B anterior and posterior shins and feet, PROM was performed at the ankles and feet Joint Mobilizations MTPs, intertarsals, calcaneus on talus/navicular Joint B Direction AP, med/lat Grade II Body Position Sitting Comments long sitting Manual Techniques 2 Type manual stretching for the gastroc/soleus complex Body Location B Body Position Sitting Comments long sitting 1 Type PROM stretches were performed at B ankles and feet, manual stretching Body Location B PF/ DF, IV/EV Body Position Sitting Comments improving ankle ROM with manual stretches PT-OP-T Assessment and Plan Start: 08/24/21 09:51 Freq: Status: Active Protocol: Document 12/19/21 11:15 [facility] (Rec: 12/19/21 17:23 [facility] [id number]) Physical Therapy Assessment Goals 3 Impairment LE, foot and ankle pain rated 7/10 11/15- 8/10 pain; pt feels her pain is getting worse but maybe due to not having PT for 1 month Transmission Technician Goal (LTG) With manual therapy techniques , ROM exercises, stretches, and mobility exercises Fay has a reduction in pain by 2-3 numbers on the pain scale LTG Duration 12 weeks 2 Impairment B Calf and plantar fascia tightness and pain limiting pts ability to walk Short Term Goal (STG) Fay is educated on stretches and manual techniques she can do at home to help with plantar fascia and calf tightness As of 11/15/21 Fay has been educated on stretches to work on at home to help with plantar fascia tightness and calf tightness STG Duration 4 weeks Assisted Goal (LTG) Fay notes a overall reduction in tightness decreasing her pain with walking No change LTG Duration 12 weeks 1 Impairment Poor ankle and foot ROM affecting balance and gait Transmission Technician Goal (LTG) Fay is able to improve her ankle ROM by 5 degrees into DF to assist with gait and balance As of 11/15/21 no change with gait or balance LTG Duration 12 weeks Assessment Summary Assessment Fay was really red and irritated across the top of her right foot today. It also appears she has a corn on the lateral aspect of her right foot. She didn't feel that she could ride the biodex following treatment today. Physical Therapy Plan Frequency and Duration Frequency of Treatment 2x/Week Duration of Treatment 8 Plan of Care Start Date 11/15/21 Plan of Care End Date 01/15/22 Therapeutic Interventions Therapeutic Interventions Balance Training,Gait Training ,Home Exercise Program,Joint Mobilizations,Manual Therapy, Patient/Caregiver Education, Self-Care/Home Management,Soft Tissue Mobilization, Therapeutic Exercises Next Visit Focus/Plan Next Note Type Treatment Note Next Visit Plan check in on redness of the right foot and what the denture processor felt was the reason for the irritation next visit .
--- NOTE | 2021-12-25 12:48 | PT.OTN ---
Current Diagnoses Systemic sclerosis, unspecified (12/25/21) Unsteadiness on feet (12/25/21) Physical Therapy Treatment Note PT-OP-A Visit Information Start: 08/24/21 09:51 Freq: Status: Active Protocol: Document 12/25/21 12:41 MA (Rec: 12/25/21 12:48 MA [id number]) Out-Patient Physical Therapy Visit Information Visit Information Visit Type Treatment Note Visit Start Time 11:00 Visit Stop Time 11:45 Total Visit Minutes 45 Visit Number 21 Number of [employer]PER[employer]ENDENT Visits 1 PT-OP-B Current Condition Start: 08/24/21 09:51 Freq: Status: Active Protocol: Document 08/24/21 09:45 [facility] (Rec: 08/24/21 09:56 [facility] [id number]) Current Condition History of Current Condition 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 She also notes that despite going through pulmonary rehab she still feels short of breath all the time. 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, PHM also includes encephalopathy, hair loss, diabetes, [place] in 2019 with 2 stents placed Prior Treatments and Tests Pt has recieved PT in the past for ankle and foot ROM, balance, gait training, MFR and manual therapy techniques to improve ankle and foot mobility Treatment Goals Patient/Caregiver Goals Pts goals include improving ankle and foot mobility and decreasing stiffness and pain PT-OP-C Subjective Start: 08/24/21 09:51 Freq: Status: Active Protocol: Document 12/25/21 12:41 MA (Rec: 12/25/21 12:48 MA [id number]) OP-PT Subjective Patient Comments Patient Comments Pt reports having a large patch of skin that felt like a pebble scraped off near her R big toe last week. She has been using tea tree oil on R foot and her redness and dry skin has improved. PT-OP-F Manual Assessment Start: 08/30/21 13:57 Freq: Status: Active Protocol: Document 08/24/21 09:45 [facility] (Rec: 08/30/21 14:01 [facility] [id number]) Manual Assessments Soft Tissue Assessment Soft Tissue Mobility Assessment scleraderma throughout the calf and plantar fascia making tissue mobililty very difficult. Pt responds well to MFR and manual stretching PT-OP-J Posture/Palpation/Skin Start: 08/24/21 09:51 Freq: Status: Active Protocol: Document 08/24/21 09:45 [facility] (Rec: 08/30/21 09:42 [facility] [id number]) Palpation Assessment Location plantar fascia Palpation Location bilateral plantar fascia Palpation Findings Soft Tissue Tightness, Tenderness Palpation Details guarded and tight plantar fascia bilaterally PT-OP-K Range of Motion Start: 08/24/21 09:51 Freq: Status: Active Protocol: Document 08/24/21 09:45 [facility] (Rec: 08/30/21 09:42 [facility] [id number]) Ankle and Foot Goniometric Range of Motion Ankle and Foot Right Dorsiflexion with Knee Flexed 2 Dorsiflexion with Knee Extended 2 Plantarflexion 6 Inversion 5 Eversion 4 Comments very poor limited ankle mobility Left Dorsiflexion with Knee Flexed 3 Dorsiflexion with Knee Extended 2 Plantarflexion 5 Inversion 5 Eversion 4 Comments very poor limited ankle mobility Ankle and Foot ROM Limitations ROM Limitations Soft Tissue Tightness, Contracture,Pain Comments pt is very limited in ankle and foot ROM, the scleroderma has restricted her joint ROM so much that she only has a few degrees in all planes for her ankle. I am able to mobilize her metatarsals with very limited ROM, tightness in the calf and and plantar fascia B also limits ROM PT-OP-Q Treatments Start: 08/30/21 14:15 Freq: Status: Active Protocol: Document 12/25/21 12:41 MA (Rec: 12/25/21 12:48 MA [id number]) Therapeutic Exercises Standing Exercises Gastroc Stretch Standing Exercise Name staggered stance Side bilateral Reps/Minutes x1' ea Comments reviewed for HEP Manual Therapy Treatment Soft Tissue Mobilization B patellar tendon Body Location B Mobilization Type Cross-Friction Intensity/Depth Moderate Body Position Sitting Comments Long sitting Extra time spend over R patellar tendon to allow for elevation durign knee flexion. I can breath better. 1 Body Location B anterior and posterior shins /feet Mobilization Type Myofascial Release Intensity/Depth Superficial Body Position long sitting (rolled towel under B ischial tuberosities) Comments MFR was performed to B anterior and posterior shins and feet, PROM was performed at the ankles and feet Joint Mobilizations MTPs, intertarsals, calcaneus on talus/navicular Joint B Direction AP, med/lat Grade II Body Position Sitting Comments long sitting Patella mobes Joint B Direction med/lat/sup/inf Grade II Body Position Sitting Comments Long sitting. Manual Techniques 2 Type manual stretching for the gastroc/soleus complex Body Location B Body Position Sitting Comments long sitting 1 Type PROM stretches were performed at B ankles and feet, manual stretching Body Location B PF/ DF, IV/EV Body Position Sitting Comments improving ankle ROM with manual stretches PT-OP-T Assessment and Plan Start: 08/24/21 09:51 Freq: Status: Active Protocol: Document 12/25/21 12:41 MA (Rec: 12/25/21 12:48 MA [id number]) Physical Therapy Assessment Goals 3 Impairment LE, foot and ankle pain rated 7/10 11/15- 8/10 pain; pt feels her pain is getting worse but maybe due to not having PT for 1 month Beveler Goal (LTG) With manual therapy techniques , ROM exercises, stretches, and mobility exercises Fay has a reduction in pain by 2-3 numbers on the pain scale LTG Duration 12 weeks 2 Impairment B Calf and plantar fascia tightness and pain limiting pts ability to walk Short Term Goal (STG) Fay is educated on stretches and manual techniques she can do at home to help with plantar fascia and calf tightness As of 11/15/21 Fay has been educated on stretches to work on at home to help with plantar fascia tightness and calf tightness STG Duration 4 weeks Beveler Goal (LTG) Fay notes a overall reduction in tightness decreasing her pain with walking No change LTG Duration 12 weeks 1 Impairment Poor ankle and foot ROM affecting balance and gait Beveler Goal (LTG) Fay is able to improve her ankle ROM by 5 degrees into DF to assist with gait and balance As of 11/15/21 no change with gait or balance LTG Duration 12 weeks Assessment Summary Assessment Pt's redness on dorsum of R foot has improved greatly since last visit. She was able to use recumbant stepper after tx today. Pt has been waking up with calf cramps and admits she has only been doing ankle circles and ankle pumps to stretch. Reviewed gastroc/soleus stretches with pt in standing and using a towel long sitting. Encouraged pt to try stretching prior to sleeping to help reduce cramping. Physical Therapy Plan Frequency and Duration Frequency of Treatment 2x/Week Duration of Treatment 8 Plan of Care Start Date 11/15/21 Plan of Care End Date 01/15/22 Therapeutic Interventions Therapeutic Interventions Balance Training,Gait Training ,Home Exercise Program,Joint Mobilizations,Manual Therapy, Patient/Caregiver Education, Self-Care/Home Management,Soft Tissue Mobilization, Therapeutic Exercises Next Visit Focus/Plan Next Note Type Treatment Note Next Visit Plan check in on redness of the right foot and what the director of vocational guidance felt was the reason for the irritation next visit .
--- NOTE | 2021-12-28 18:08 | PT.OTN ---
Current Diagnoses Systemic sclerosis, unspecified (12/28/21) Unsteadiness on feet (12/28/21) Physical Therapy Treatment Note PT-OP-A Visit Information Start: 08/24/21 09:51 Freq: Status: Active Protocol: Document 12/28/21 15:15 [facility] (Rec: 12/28/21 18:07 [facility] [id number]) Out-Patient Physical Therapy Visit Information Visit Information Visit Type Treatment Note Visit Start Time 15:15 Visit Stop Time 16:00 Total Visit Minutes 45 Visit Number 22 PT-OP-B Current Condition Start: 08/24/21 09:51 Freq: Status: Active Protocol: Document 08/24/21 09:45 [facility] (Rec: 08/24/21 09:56 [facility] [id number]) Current Condition History of Current Condition 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 She also notes that despite going through pulmonary rehab she still feels short of breath all the time. 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, PHM also includes encephalopathy, hair loss, diabetes, [place] in 2019 with 2 stents placed Prior Treatments and Tests Pt has recieved PT in the past for ankle and foot ROM, balance, gait training, MFR and manual therapy techniques to improve ankle and foot mobility Treatment Goals Patient/Caregiver Goals Pts goals include improving ankle and foot mobility and decreasing stiffness and pain PT-OP-C Subjective Start: 08/24/21 09:51 Freq: Status: Active Protocol: Document 12/28/21 15:15 [facility] (Rec: 12/28/21 18:07 [facility] [id number]) OP-PT Subjective Patient Comments Patient Comments pt had her MD appt and the corn on her foot was taken off . This has helped with her pain PT-OP-F Manual Assessment Start: 08/30/21 13:57 Freq: Status: Active Protocol: Document 08/24/21 09:45 [facility] (Rec: 08/30/21 14:01 [facility] [id number]) Manual Assessments Soft Tissue Assessment Soft Tissue Mobility Assessment scleraderma throughout the calf and plantar fascia making tissue mobililty very difficult. Pt responds well to MFR and manual stretching PT-OP-J Posture/Palpation/Skin Start: 08/24/21 09:51 Freq: Status: Active Protocol: Document 08/24/21 09:45 [facility] (Rec: 08/30/21 09:42 [facility] [id number]) Palpation Assessment Location plantar fascia Palpation Location bilateral plantar fascia Palpation Findings Soft Tissue Tightness, Tenderness Palpation Details guarded and tight plantar fascia bilaterally PT-OP-K Range of Motion Start: 08/24/21 09:51 Freq: Status: Active Protocol: Document 08/24/21 09:45 [facility] (Rec: 08/30/21 09:42 [facility] [id number]) Ankle and Foot Goniometric Range of Motion Ankle and Foot Right Dorsiflexion with Knee Flexed 2 Dorsiflexion with Knee Extended 2 Plantarflexion 6 Inversion 5 Eversion 4 Comments very poor limited ankle mobility Left Dorsiflexion with Knee Flexed 3 Dorsiflexion with Knee Extended 2 Plantarflexion 5 Inversion 5 Eversion 4 Comments very poor limited ankle mobility Ankle and Foot ROM Limitations ROM Limitations Soft Tissue Tightness, Contracture,Pain Comments pt is very limited in ankle and foot ROM, the scleroderma has restricted her joint ROM so much that she only has a few degrees in all planes for her ankle. I am able to mobilize her metatarsals with very limited ROM, tightness in the calf and and plantar fascia B also limits ROM PT-OP-Q Treatments Start: 08/30/21 14:15 Freq: Status: Active Protocol: Document 12/28/21 15:15 [facility] (Rec: 12/28/21 18:07 [facility] [id number]) Manual Therapy Treatment Soft Tissue Mobilization B patellar tendon Body Location B Mobilization Type Cross-Friction Intensity/Depth Moderate Body Position Sitting Comments Long sitting Extra time spend over R patellar tendon to allow for elevation durign knee flexion. I can breath better. 1 Body Location B anterior and posterior shins /feet Mobilization Type Myofascial Release Intensity/Depth Superficial Body Position long sitting (rolled towel under B ischial tuberosities) Comments MFR was performed to B anterior and posterior shins and feet, PROM was performed at the ankles and feet Joint Mobilizations MTPs, intertarsals, calcaneus on talus/navicular Joint B Direction AP, med/lat Grade II Body Position Sitting Comments long sitting Manual Techniques 2 Type manual stretching for the gastroc/soleus complex Body Location B Body Position Sitting Comments long sitting 1 Type PROM stretches were performed at B ankles and feet, manual stretching Body Location B PF/ DF, IV/EV Body Position Sitting Comments improving ankle ROM with manual stretches PT-OP-T Assessment and Plan Start: 08/24/21 09:51 Freq: Status: Active Protocol: Document 12/28/21 15:15 [facility] (Rec: 12/28/21 18:07 [facility] [id number]) Physical Therapy Assessment Assessment Summary Assessment redness on foot greatly improved and pt was able to do the biodex following treatment today Physical Therapy Plan Frequency and Duration Frequency of Treatment 2x/Week Duration of Treatment 8 Plan of Care Start Date 11/15/21 Plan of Care End Date 01/15/22
--- NOTE | 2022-01-02 17:15 | PT.OTN ---
Current Diagnoses Systemic sclerosis, unspecified (01/02/22) Unsteadiness on feet (01/02/22) Physical Therapy Treatment Note PT-OP-A Visit Information Start: 08/24/21 09:51 Freq: Status: Active Protocol: Document 01/02/22 13:45 [facility] (Rec: 01/02/22 17:15 [facility] [id number]) Out-Patient Physical Therapy Visit Information Visit Information Visit Type Treatment Note Visit Start Time 13:45 Visit Stop Time 14:30 Total Visit Minutes 45 Visit Number 23 PT-OP-B Current Condition Start: 08/24/21 09:51 Freq: Status: Active Protocol: Document 08/24/21 09:45 [facility] (Rec: 08/24/21 09:56 [facility] [id number]) Current Condition History of Current Condition 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 She also notes that despite going through pulmonary rehab she still feels short of breath all the time. 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, PHM also includes encephalopathy, hair loss, diabetes, [place] in 2019 with 2 stents placed Prior Treatments and Tests Pt has recieved PT in the past for ankle and foot ROM, balance, gait training, MFR and manual therapy techniques to improve ankle and foot mobility Treatment Goals Patient/Caregiver Goals Pts goals include improving ankle and foot mobility and decreasing stiffness and pain PT-OP-C Subjective Start: 08/24/21 09:51 Freq: Status: Active Protocol: Document 01/02/22 13:45 [facility] (Rec: 01/02/22 14:39 [facility] [id number]) OP-PT Subjective Patient Comments Patient Comments pt notes she hasn't been experiencing the neuropathy like she has been PT-OP-F Manual Assessment Start: 08/30/21 13:57 Freq: Status: Active Protocol: Document 08/24/21 09:45 [facility] (Rec: 08/30/21 14:01 [facility] [id number]) Manual Assessments Soft Tissue Assessment Soft Tissue Mobility Assessment scleraderma throughout the calf and plantar fascia making tissue mobililty very difficult. Pt responds well to MFR and manual stretching PT-OP-J Posture/Palpation/Skin Start: 08/24/21 09:51 Freq: Status: Active Protocol: Document 08/24/21 09:45 [facility] (Rec: 08/30/21 09:42 [facility] [id number]) Palpation Assessment Location plantar fascia Palpation Location bilateral plantar fascia Palpation Findings Soft Tissue Tightness, Tenderness Palpation Details guarded and tight plantar fascia bilaterally PT-OP-K Range of Motion Start: 08/24/21 09:51 Freq: Status: Active Protocol: Document 08/24/21 09:45 [facility] (Rec: 08/30/21 09:42 [facility] [id number]) Ankle and Foot Goniometric Range of Motion Ankle and Foot Right Dorsiflexion with Knee Flexed 2 Dorsiflexion with Knee Extended 2 Plantarflexion 6 Inversion 5 Eversion 4 Comments very poor limited ankle mobility Left Dorsiflexion with Knee Flexed 3 Dorsiflexion with Knee Extended 2 Plantarflexion 5 Inversion 5 Eversion 4 Comments very poor limited ankle mobility Ankle and Foot ROM Limitations ROM Limitations Soft Tissue Tightness, Contracture,Pain Comments pt is very limited in ankle and foot ROM, the scleroderma has restricted her joint ROM so much that she only has a few degrees in all planes for her ankle. I am able to mobilize her metatarsals with very limited ROM, tightness in the calf and and plantar fascia B also limits ROM PT-OP-Q Treatments Start: 08/30/21 14:15 Freq: Status: Active Protocol: Document 01/02/22 13:45 [facility] (Rec: 01/02/22 17:15 [facility] [id number]) Manual Therapy Treatment Soft Tissue Mobilization Upper, middle traps Body Location B Mobilization Type Cross-Friction,Rolling Intensity/Depth Moderate Body Position Sitting Comments cued slow breaths and worked on diaphragmatic breathing in sitting B patellar tendon Body Location B Mobilization Type Cross-Friction Intensity/Depth Moderate Body Position Sitting Comments Long sitting Extra time spend over R patellar tendon to allow for elevation durign knee flexion. I can breath better. 1 Body Location B anterior and posterior shins /feet Mobilization Type Myofascial Release Intensity/Depth Superficial Body Position long sitting (rolled towel under B ischial tuberosities) Comments MFR was performed to B anterior and posterior shins and feet, PROM was performed at the ankles and feet Joint Mobilizations MTPs, intertarsals, calcaneus on talus/navicular Joint B Direction AP, med/lat Grade II Body Position Sitting Comments long sitting Patella mobes Joint B Direction med/lat/sup/inf Grade II Body Position Sitting Comments Long sitting. Manual Techniques 2 Type manual stretching for the gastroc/soleus complex Body Location B Body Position Sitting Comments long sitting 1 Type PROM stretches were performed at B ankles and feet, manual stretching Body Location B PF/ DF, IV/EV Body Position Sitting Comments improving ankle ROM with manual stretches PT-OP-T Assessment and Plan Start: 08/24/21 09:51 Freq: Status: Active Protocol: Document 01/02/22 13:45 [facility] (Rec: 01/02/22 17:15 [facility] [id number]) Physical Therapy Assessment Assessment Summary Assessment Fay is doing better today and wasn't in as much pain, redness also reduced over the top of the foot B Physical Therapy Plan Frequency and Duration Frequency of Treatment 2x/Week Duration of Treatment 8 Plan of Care Start Date 11/15/21 Plan of Care End Date 01/15/22 Therapeutic Interventions Therapeutic Interventions Balance Training,Gait Training ,Home Exercise Program,Joint Mobilizations,Manual Therapy, Patient/Caregiver Education, Self-Care/Home Management,Soft Tissue Mobilization, Therapeutic Exercises Next Visit Focus/Plan Next Note Type Treatment Note Next Visit Plan continue working on fascial mobility and ROM of the ankle and feet
--- NOTE | 2022-01-08 14:40 | PT.OTN ---
Current Diagnoses Systemic sclerosis, unspecified (01/08/22) Unsteadiness on feet (01/08/22) Physical Therapy Treatment Note PT-OP-A Visit Information Start: 08/24/21 09:51 Freq: Status: Active Protocol: Document 01/08/22 13:35 MA (Rec: 01/08/22 14:40 MA [id number]) Out-Patient Physical Therapy Visit Information Visit Information Visit Type Treatment Note Visit Start Time 13:45 Visit Stop Time 14:30 Total Visit Minutes 45 Visit Number 24 Number of ENGINEERING PRODUCTION WORKER Visits 1 PT-OP-B Current Condition Start: 08/24/21 09:51 Freq: Status: Active Protocol: Document 08/24/21 09:45 [facility] (Rec: 08/24/21 09:56 [facility] [id number]) Current Condition History of Current Condition 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 She also notes that despite going through pulmonary rehab she still feels short of breath all the time. 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, PHM also includes encephalopathy, hair loss, diabetes, [place] in 2019 with 2 stents placed Prior Treatments and Tests Pt has recieved PT in the past for ankle and foot ROM, balance, gait training, MFR and manual therapy techniques to improve ankle and foot mobility Treatment Goals Patient/Caregiver Goals Pts goals include improving ankle and foot mobility and decreasing stiffness and pain PT-OP-C Subjective Start: 08/24/21 09:51 Freq: Status: Active Protocol: Document 01/08/22 13:35 MA (Rec: 01/08/22 14:40 MA [id number]) OP-PT Subjective Patient Comments Patient Comments Pt states she woke up and her leg was bleeding pretty badly. She does not know why it started bleeding. PT-OP-F Manual Assessment Start: 08/30/21 13:57 Freq: Status: Active Protocol: Document 08/24/21 09:45 [facility] (Rec: 08/30/21 14:01 [facility] [id number]) Manual Assessments Soft Tissue Assessment Soft Tissue Mobility Assessment scleraderma throughout the calf and plantar fascia making tissue mobililty very difficult. Pt responds well to MFR and manual stretching PT-OP-J Posture/Palpation/Skin Start: 08/24/21 09:51 Freq: Status: Active Protocol: Document 08/24/21 09:45 [facility] (Rec: 08/30/21 09:42 [facility] [id number]) Palpation Assessment Location plantar fascia Palpation Location bilateral plantar fascia Palpation Findings Soft Tissue Tightness, Tenderness Palpation Details guarded and tight plantar fascia bilaterally PT-OP-K Range of Motion Start: 08/24/21 09:51 Freq: Status: Active Protocol: Document 08/24/21 09:45 [facility] (Rec: 08/30/21 09:42 [facility] [id number]) Ankle and Foot Goniometric Range of Motion Ankle and Foot Right Dorsiflexion with Knee Flexed 2 Dorsiflexion with Knee Extended 2 Plantarflexion 6 Inversion 5 Eversion 4 Comments very poor limited ankle mobility Left Dorsiflexion with Knee Flexed 3 Dorsiflexion with Knee Extended 2 Plantarflexion 5 Inversion 5 Eversion 4 Comments very poor limited ankle mobility Ankle and Foot ROM Limitations ROM Limitations Soft Tissue Tightness, Contracture,Pain Comments pt is very limited in ankle and foot ROM, the scleroderma has restricted her joint ROM so much that she only has a few degrees in all planes for her ankle. I am able to mobilize her metatarsals with very limited ROM, tightness in the calf and and plantar fascia B also limits ROM PT-OP-Q Treatments Start: 08/30/21 14:15 Freq: Status: Active Protocol: Document 01/08/22 13:35 MA (Rec: 01/08/22 14:40 MA [id number]) Therapeutic Exercises Standing Exercises Gastroc Stretch Standing Exercise Name in long-sitting today Side bilateral Equipment Used towel Reps/Minutes 2x30 ea Manual Therapy Treatment Joint Mobilizations MTPs, intertarsals, calcaneus on talus/navicular Joint B Direction AP, med/lat Grade II Body Position Sitting Comments long sitting Patella mobes Joint B Direction med/lat/sup/inf Grade II Body Position Sitting Comments Long sitting. Manual Techniques 2 Type manual stretching for the gastroc/soleus complex Body Location B Body Position Sitting Comments long sitting 1 Type PROM stretches were performed at B ankles and feet, manual stretching Body Location B PF/ DF, IV/EV Body Position Sitting Comments improving ankle ROM with manual stretches PT-OP-T Assessment and Plan Start: 08/24/21 09:51 Freq: Status: Active Protocol: Document 01/08/22 13:35 MA (Rec: 01/08/22 14:40 MA [id number]) Physical Therapy Assessment Goals 3 Impairment LE, foot and ankle pain rated 7/10 11/15- 8/10 pain; pt feels her pain is getting worse but maybe due to not having PT for 1 month Custodial Goal (LTG) With manual therapy techniques , ROM exercises, stretches, and mobility exercises Fay has a reduction in pain by 2-3 numbers on the pain scale LTG Duration 12 weeks 2 Impairment B Calf and plantar fascia tightness and pain limiting pts ability to walk Short Term Goal (STG) Fay is educated on stretches and manual techniques she can do at home to help with plantar fascia and calf tightness As of 11/15/21 Fay has been educated on stretches to work on at home to help with plantar fascia tightness and calf tightness STG Duration 4 weeks Hazardous Materials Handler Goal (LTG) Fay notes a overall reduction in tightness decreasing her pain with walking No change LTG Duration 12 weeks 1 Impairment Poor ankle and foot ROM affecting balance and gait Hazardous Materials Handler Goal (LTG) Fay is able to improve her ankle ROM by 5 degrees into DF to assist with gait and balance As of 11/15/21 no change with gait or balance LTG Duration 12 weeks Assessment Summary Assessment Fay arrived stating she felt very stiff today but at the end of therapy she states she feels much looser. She has a small open wound on R beckham and dried blood around area stating she woke up with blood pooled on her RLE but she does not know how she cut herself. Avoided area today during STM and encouraged pt to clean wound again at home after therapy. Physical Therapy Plan Frequency and Duration Frequency of Treatment 2x/Week Duration of Treatment 8 Plan of Care Start Date 11/15/21 Plan of Care End Date 01/15/22 Therapeutic Interventions Therapeutic Interventions Balance Training,Gait Training ,Home Exercise Program,Joint Mobilizations,Manual Therapy, Patient/Caregiver Education, Self-Care/Home Management,Soft Tissue Mobilization, Therapeutic Exercises Next Visit Focus/Plan Next Note Type Treatment Note Next Visit Plan continue working on fascial mobility and ROM of the ankle and feet
--- NOTE | 2022-01-11 16:13 | PT.OTN ---
Current Diagnoses Systemic sclerosis, unspecified (01/11/22) Unsteadiness on feet (01/11/22) Physical Therapy Treatment Note PT-OP-A Visit Information Start: 08/24/21 09:51 Freq: Status: Active Protocol: Document 01/11/22 16:09 MA (Rec: 01/11/22 16:13 MA [id number]) Out-Patient Physical Therapy Visit Information Visit Information Visit Type Treatment Note Visit Start Time 15:15 Visit Stop Time 16:04 Total Visit Minutes 49 Visit Number 25 Number of SOLE LAYER HAND Visits 2 PT-OP-B Current Condition Start: 08/24/21 09:51 Freq: Status: Active Protocol: Document 08/24/21 09:45 [facility] (Rec: 08/24/21 09:56 [facility] [id number]) Current Condition History of Current Condition 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 She also notes that despite going through pulmonary rehab she still feels short of breath all the time. 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, PHM also includes encephalopathy, hair loss, diabetes, [place] in 2019 with 2 stents placed Prior Treatments and Tests Pt has recieved PT in the past for ankle and foot ROM, balance, gait training, MFR and manual therapy techniques to improve ankle and foot mobility Treatment Goals Patient/Caregiver Goals Pts goals include improving ankle and foot mobility and decreasing stiffness and pain PT-OP-C Subjective Start: 08/24/21 09:51 Freq: Status: Active Protocol: Document 01/11/22 16:09 MA (Rec: 01/11/22 16:13 MA [id number]) OP-PT Subjective Patient Comments Patient Comments Pt sees pulmonary neurologist next Saturday. PT-OP-F Manual Assessment Start: 08/30/21 13:57 Freq: Status: Active Protocol: Document 08/24/21 09:45 [facility] (Rec: 08/30/21 14:01 [facility] [id number]) Manual Assessments Soft Tissue Assessment Soft Tissue Mobility Assessment scleraderma throughout the calf and plantar fascia making tissue mobililty very difficult. Pt responds well to MFR and manual stretching PT-OP-J Posture/Palpation/Skin Start: 08/24/21 09:51 Freq: Status: Active Protocol: Document 08/24/21 09:45 [facility] (Rec: 08/30/21 09:42 [facility] [id number]) Palpation Assessment Location plantar fascia Palpation Location bilateral plantar fascia Palpation Findings Soft Tissue Tightness, Tenderness Palpation Details guarded and tight plantar fascia bilaterally PT-OP-K Range of Motion Start: 08/24/21 09:51 Freq: Status: Active Protocol: Document 08/24/21 09:45 [facility] (Rec: 08/30/21 09:42 [facility] [id number]) Ankle and Foot Goniometric Range of Motion Ankle and Foot Right Dorsiflexion with Knee Flexed 2 Dorsiflexion with Knee Extended 2 Plantarflexion 6 Inversion 5 Eversion 4 Comments very poor limited ankle mobility Left Dorsiflexion with Knee Flexed 3 Dorsiflexion with Knee Extended 2 Plantarflexion 5 Inversion 5 Eversion 4 Comments very poor limited ankle mobility Ankle and Foot ROM Limitations ROM Limitations Soft Tissue Tightness, Contracture,Pain Comments pt is very limited in ankle and foot ROM, the scleroderma has restricted her joint ROM so much that she only has a few degrees in all planes for her ankle. I am able to mobilize her metatarsals with very limited ROM, tightness in the calf and and plantar fascia B also limits ROM PT-OP-Q Treatments Start: 08/30/21 14:15 Freq: Status: Active Protocol: Document 01/11/22 16:09 MA (Rec: 01/11/22 16:13 TN [id number]) Manual Therapy Treatment Soft Tissue Mobilization Upper, middle traps Body Location B Mobilization Type Cross-Friction,Rolling Intensity/Depth Moderate Body Position Sitting Comments cued slow breaths and worked on diaphragmatic breathing in sitting B patellar tendon Body Location B Mobilization Type Cross-Friction Intensity/Depth Moderate Body Position Sitting Comments Long sitting Extra time spend over R patellar tendon to allow for elevation durign knee flexion. I can breath better. 1 Body Location B anterior and posterior shins /feet Mobilization Type Myofascial Release Intensity/Depth Superficial Body Position long sitting (rolled towel under B ischial tuberosities) Comments MFR was performed to B anterior and posterior shins and feet, PROM was performed at the ankles and feet Joint Mobilizations MTPs, intertarsals, calcaneus on talus/navicular Joint B Direction AP, med/lat Grade II Body Position Sitting Comments long sitting Patella mobes Joint B Direction med/lat/sup/inf Grade II Body Position Sitting Comments Long sitting. Manual Techniques 2 Type manual stretching for the gastroc/soleus complex Body Location B Body Position Sitting Comments long sitting 1 Type PROM stretches were performed at B ankles and feet, manual stretching Body Location B PF/ DF, IV/EV Body Position Sitting Comments improving ankle ROM with manual stretches PT-OP-T Assessment and Plan Start: 08/24/21 09:51 Freq: Status: Active Protocol: Document 01/11/22 16:09 MA (Rec: 01/11/22 16:13 MA [id number]) Physical Therapy Assessment Goals 3 Impairment LE, foot and ankle pain rated 7/10 11/15- 8/10 pain; pt feels her pain is getting worse but maybe due to not having PT for 1 month Snf Goal (LTG) With manual therapy techniques , ROM exercises, stretches, and mobility exercises Fay has a reduction in pain by 2-3 numbers on the pain scale LTG Duration 12 weeks 2 Impairment B Calf and plantar fascia tightness and pain limiting pts ability to walk Short Term Goal (STG) Fay is educated on stretches and manual techniques she can do at home to help with plantar fascia and calf tightness As of 11/15/21 Fay has been educated on stretches to work on at home to help with plantar fascia tightness and calf tightness STG Duration 4 weeks Tube Test Technician Goal (LTG) Fay notes a overall reduction in tightness decreasing her pain with walking No change LTG Duration 12 weeks 1 Impairment Poor ankle and foot ROM affecting balance and gait Snf Goal (LTG) Fay is able to improve her ankle ROM by 5 degrees into DF to assist with gait and balance As of 11/15/21 no change with gait or balance LTG Duration 12 weeks Assessment Summary Assessment Fay's beckham wound is healing well and she has no new open wounds on BLEs. She continues to state she feels looser after therapy and she feels her breathing improves after manual work. Physical Therapy Plan Frequency and Duration Frequency of Treatment 2x/Week Duration of Treatment 8 Plan of Care Start Date 11/15/21 Plan of Care End Date 01/15/22 Therapeutic Interventions Therapeutic Interventions Balance Training,Gait Training ,Home Exercise Program,Joint Mobilizations,Manual Therapy, Patient/Caregiver Education, Self-Care/Home Management,Soft Tissue Mobilization, Therapeutic Exercises Next Visit Focus/Plan Next Note Type Treatment Note Next Visit Plan continue working on fascial mobility and ROM of the ankle and feet
--- NOTE | 2022-01-15 17:03 | PT.OTN ---
Current Diagnoses Systemic sclerosis, unspecified (01/15/22) Unsteadiness on feet (01/15/22) Physical Therapy Treatment Note PT-OP-A Visit Information Start: 08/24/21 09:51 Freq: Status: Active Protocol: Document 01/15/22 16:58 MA (Rec: 01/15/22 17:03 MA [id number]) Out-Patient Physical Therapy Visit Information Visit Information Visit Type Treatment Note Visit Start Time 14:30 Visit Stop Time 15:15 Total Visit Minutes 45 Visit Number 26 Number of FIXED INCOME TRADING VICE PRESIDENT Visits 3 PT-OP-B Current Condition Start: 08/24/21 09:51 Freq: Status: Active Protocol: Document 08/24/21 09:45 [facility] (Rec: 08/24/21 09:56 [facility] [id number]) Current Condition History of Current Condition 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 She also notes that despite going through pulmonary rehab she still feels short of breath all the time. 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, PHM also includes encephalopathy, hair loss, diabetes, [place] in 2019 with 2 stents placed Prior Treatments and Tests Pt has recieved PT in the past for ankle and foot ROM, balance, gait training, MFR and manual therapy techniques to improve ankle and foot mobility Treatment Goals Patient/Caregiver Goals Pts goals include improving ankle and foot mobility and decreasing stiffness and pain PT-OP-C Subjective Start: 08/24/21 09:51 Freq: Status: Active Protocol: Document 01/15/22 16:58 MA (Rec: 01/15/22 17:03 MA [id number]) OP-PT Subjective Patient Comments Patient Comments Pt reports accidentally scratching her beckham and taking off a chunk of skin. Requests bandaide for after session. PT-OP-F Manual Assessment Start: 08/30/21 13:57 Freq: Status: Active Protocol: Document 08/24/21 09:45 [facility] (Rec: 08/30/21 14:01 [facility] [id number]) Manual Assessments Soft Tissue Assessment Soft Tissue Mobility Assessment scleraderma throughout the calf and plantar fascia making tissue mobililty very difficult. Pt responds well to MFR and manual stretching PT-OP-J Posture/Palpation/Skin Start: 08/24/21 09:51 Freq: Status: Active Protocol: Document 08/24/21 09:45 [facility] (Rec: 08/30/21 09:42 [facility] [id number]) Palpation Assessment Location plantar fascia Palpation Location bilateral plantar fascia Palpation Findings Soft Tissue Tightness, Tenderness Palpation Details guarded and tight plantar fascia bilaterally PT-OP-K Range of Motion Start: 08/24/21 09:51 Freq: Status: Active Protocol: Document 08/24/21 09:45 [facility] (Rec: 08/30/21 09:42 [facility] [id number]) Ankle and Foot Goniometric Range of Motion Ankle and Foot Right Dorsiflexion with Knee Flexed 2 Dorsiflexion with Knee Extended 2 Plantarflexion 6 Inversion 5 Eversion 4 Comments very poor limited ankle mobility Left Dorsiflexion with Knee Flexed 3 Dorsiflexion with Knee Extended 2 Plantarflexion 5 Inversion 5 Eversion 4 Comments very poor limited ankle mobility Ankle and Foot ROM Limitations ROM Limitations Soft Tissue Tightness, Contracture,Pain Comments pt is very limited in ankle and foot ROM, the scleroderma has restricted her joint ROM so much that she only has a few degrees in all planes for her ankle. I am able to mobilize her metatarsals with very limited ROM, tightness in the calf and and plantar fascia B also limits ROM PT-OP-Q Treatments Start: 08/30/21 14:15 Freq: Status: Active Protocol: Document 01/15/22 16:58 MA (Rec: 01/15/22 17:03 MA [id number]) Manual Therapy Treatment Soft Tissue Mobilization Upper, middle traps Body Location B Mobilization Type Cross-Friction,Rolling Intensity/Depth Moderate Body Position Sitting Comments cued slow breaths and worked on diaphragmatic breathing in sitting B patellar tendon Body Location B Mobilization Type Cross-Friction Intensity/Depth Moderate Body Position Sitting Comments Long sitting Extra time spend over R patellar tendon to allow for elevation durign knee flexion. I can breath better. 1 Body Location B anterior and posterior shins /feet Mobilization Type Myofascial Release Intensity/Depth Superficial Body Position long sitting (rolled towel under B ischial tuberosities) Comments MFR was performed to B anterior and posterior shins and feet, PROM was performed at the ankles and feet Joint Mobilizations MTPs, intertarsals, calcaneus on talus/navicular Joint B Direction AP, med/lat Grade II Body Position Sitting Comments long sitting Patella mobes Joint B Direction med/lat/sup/inf Grade II Body Position Sitting Comments Long sitting. Manual Techniques 2 Type manual stretching for the gastroc/soleus complex Body Location B Body Position Sitting Comments long sitting 1 Type PROM stretches were performed at B ankles and feet, manual stretching Body Location B PF/ DF, IV/EV Body Position Sitting Comments improving ankle ROM with manual stretches PT-OP-T Assessment and Plan Start: 08/24/21 09:51 Freq: Status: Active Protocol: Document 01/15/22 16:58 MA (Rec: 01/15/22 17:03 MA [id number]) Physical Therapy Assessment Goals 3 Impairment LE, foot and ankle pain rated 7/10 11/15- 8/10 pain; pt feels her pain is getting worse but maybe due to not having PT for 1 month Director Business Systems Goal (LTG) With manual therapy techniques , ROM exercises, stretches, and mobility exercises Fay has a reduction in pain by 2-3 numbers on the pain scale LTG Duration 12 weeks 2 Impairment B Calf and plantar fascia tightness and pain limiting pts ability to walk Short Term Goal (STG) Fay is educated on stretches and manual techniques she can do at home to help with plantar fascia and calf tightness As of 11/15/21 Fay has been educated on stretches to work on at home to help with plantar fascia tightness and calf tightness STG Duration 4 weeks Director Business Systems Goal (LTG) Fay notes a overall reduction in tightness decreasing her pain with walking No change LTG Duration 12 weeks 1 Impairment Poor ankle and foot ROM affecting balance and gait Director Business Systems Goal (LTG) Fay is able to improve her ankle ROM by 5 degrees into DF to assist with gait and balance As of 11/15/21 no change with gait or balance LTG Duration 12 weeks Assessment Summary Assessment Pt has wounds to both shins but FIXED INCOME TRADING VICE PRESIDENT was able to work around wounds this session during manual work. She is tighter through RLE> LLE this session. Discussed working on more AROM through ankles next session and possibly trying a few minutes of balance at end of session. Pt feels she benefits most from manual work but does admit her balance has gotten worse. Physical Therapy Plan Frequency and Duration Frequency of Treatment 2x/Week Duration of Treatment 8 Plan of Care Start Date 11/15/21 Plan of Care End Date 01/15/22 Therapeutic Interventions Therapeutic Interventions Balance Training,Gait Training ,Home Exercise Program,Joint Mobilizations,Manual Therapy, Patient/Caregiver Education, Self-Care/Home Management,Soft Tissue Mobilization, Therapeutic Exercises Next Visit Focus/Plan Next Note Type Treatment Note Next Visit Plan Start with standing gastroc stretches. Continue working on fascial mobility and ROM of the ankle and feet- possibly add 5 min of balance work at end of session
--- NOTE | 2022-03-14 14:24 | PT.OTN ---
Current Diagnoses Systemic sclerosis, unspecified (03/14/22) Unsteadiness on feet (03/14/22) Physical Therapy Treatment Note PT-OP-A Visit Information Start: 08/24/21 09:51 Freq: Status: Active Protocol: Document 03/14/22 12:00 [facility] (Rec: 03/14/22 14:24 [facility] [id number]) Out-Patient Physical Therapy Visit Information Visit Information Visit Type Treatment Note Visit Start Time 12:00 Visit Stop Time 12:45 Total Visit Minutes 45 Visit Number 28 Number of [facility]ORS[facility] GRINDER Visits 0 PT-OP-B Current Condition Start: 08/24/21 09:51 Freq: Status: Active Protocol: Document 08/24/21 09:45 [facility] (Rec: 08/24/21 09:56 [facility] [id number]) Current Condition History of Current Condition 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 She also notes that despite going through pulmonary rehab she still feels short of breath all the time. 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, PHM also includes encephalopathy, hair loss, diabetes, PA in 2019 with 2 stents placed Prior Treatments and Tests Pt has recieved PT in the past for ankle and foot ROM, balance, gait training, MFR and manual therapy techniques to improve ankle and foot mobility Treatment Goals Patient/Caregiver Goals Pts goals include improving ankle and foot mobility and decreasing stiffness and pain PT-OP-C Subjective Start: 08/24/21 09:51 Freq: Status: Active Protocol: Document 03/14/22 12:00 [facility] (Rec: 03/14/22 14:24 [facility] [id number]) OP-PT Subjective Patient Comments Patient Comments Fay notes she has been in a great deal of pain from a tooth infection. PT-OP-F Manual Assessment Start: 08/30/21 13:57 Freq: Status: Active Protocol: Document 08/24/21 09:45 [facility] (Rec: 08/30/21 14:01 [facility] [id number]) Manual Assessments Soft Tissue Assessment Soft Tissue Mobility Assessment scleraderma throughout the calf and plantar fascia making tissue mobililty very difficult. Pt responds well to MFR and manual stretching PT-OP-J Posture/Palpation/Skin Start: 08/24/21 09:51 Freq: Status: Active Protocol: Document 08/24/21 09:45 [facility] (Rec: 08/30/21 09:42 [facility] [id number]) Palpation Assessment Location plantar fascia Palpation Location bilateral plantar fascia Palpation Findings Soft Tissue Tightness, Tenderness Palpation Details guarded and tight plantar fascia bilaterally PT-OP-K Range of Motion Start: 08/24/21 09:51 Freq: Status: Active Protocol: Document 08/24/21 09:45 [facility] (Rec: 08/30/21 09:42 [facility] [id number]) Ankle and Foot Goniometric Range of Motion Ankle and Foot Right Dorsiflexion with Knee Flexed 2 Dorsiflexion with Knee Extended 2 Plantarflexion 6 Inversion 5 Eversion 4 Comments very poor limited ankle mobility Left Dorsiflexion with Knee Flexed 3 Dorsiflexion with Knee Extended 2 Plantarflexion 5 Inversion 5 Eversion 4 Comments very poor limited ankle mobility Ankle and Foot ROM Limitations ROM Limitations Soft Tissue Tightness, Contracture,Pain Comments pt is very limited in ankle and foot ROM, the scleroderma has restricted her joint ROM so much that she only has a few degrees in all planes for her ankle. I am able to mobilize her metatarsals with very limited ROM, tightness in the calf and and plantar fascia B also limits ROM PT-OP-Q Treatments Start: 08/30/21 14:15 Freq: Status: Active Protocol: Document 03/14/22 12:00 [facility] (Rec: 03/14/22 14:24 [facility] [id number]) Cardio Equipment Recumbent Elliptical (Biodex) Duration (Minutes) 10 Resistance 2 Manual Therapy Treatment Soft Tissue Mobilization B patellar tendon Body Location B Mobilization Type Cross-Friction Intensity/Depth Moderate Body Position Sitting Comments Long sitting Extra time spend over R patellar tendon to allow for elevation durign knee flexion. I can breath better. 1 Body Location B anterior and posterior shins /feet Mobilization Type Myofascial Release Intensity/Depth Superficial Body Position long sitting (rolled towel under B ischial tuberosities) Comments MFR was performed to B anterior and posterior shins and feet, PROM was performed at the ankles and feet Joint Mobilizations MTPs, intertarsals, calcaneus on talus/navicular Joint B Direction AP, med/lat Grade II Body Position Sitting Comments long sitting Manual Techniques 2 Type manual stretching for the gastroc/soleus complex Body Location B Body Position Sitting Comments long sitting 1 Type PROM stretches were performed at B ankles and feet, manual stretching Body Location B PF/ DF, IV/EV Body Position Sitting Comments improving ankle ROM with manual stretches PT-OP-T Assessment and Plan Start: 08/24/21 09:51 Freq: Status: Active Protocol: Document 03/14/22 12:00 [facility] (Rec: 03/14/22 14:24 [facility] [id number]) Physical Therapy Assessment Assessment Summary Assessment Fay was able to return to 10 min on the biodex today, she continues to be very tight in her calf musculature and shins . Worked on ankle ROM and mobility Physical Therapy Plan Frequency and Duration Frequency of Treatment 2x/Week Duration of Treatment 12 Plan of Care Start Date 03/01/22 Plan of Care End Date 06/01/22 Therapeutic Interventions Therapeutic Interventions Balance Training,Gait Training ,Home Exercise Program,Joint Mobilizations,Manual Therapy, Patient/Caregiver Education, Self-Care/Home Management,Soft Tissue Mobilization, Therapeutic Exercises Next Visit Focus/Plan Next Note Type Treatment Note Next Visit Plan Start with standing gastroc stretches. Continue working on fascial mobility and ROM of the ankle and feet- possibly add 5 min of balance work at end of session
--- NOTE | 2022-04-09 15:30 | PT.OTN ---
Current Diagnoses Systemic sclerosis, unspecified (05/22/22) Unsteadiness on feet (05/22/22) Physical Therapy Treatment Note PT-OP-A Visit Information Start: 08/24/21 09:51 Freq: Status: Active Protocol: Document 04/09/22 14:35 [facility] (Rec: 06/03/22 22:05 [facility] [id number]-) Out-Patient Physical Therapy Visit Information Visit Information Visit Type Treatment Note Visit Start Time 14:35 Visit Stop Time 15:15 Total Visit Minutes 40 Visit Number 29 Number of HAND STRIPER Visits 1 PT-OP-B Current Condition Start: 08/24/21 09:51 Freq: Status: Active Protocol: Document 08/24/21 09:45 [facility] (Rec: 08/24/21 09:56 [facility] [id number]) Current Condition History of Current Condition 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 She also notes that despite going through pulmonary rehab she still feels short of breath all the time. 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, PHM also includes encephalopathy, hair loss, diabetes, [place] in 2019 with 2 stents placed Prior Treatments and Tests Pt has recieved PT in the past for ankle and foot ROM, balance, gait training, MFR and manual therapy techniques to improve ankle and foot mobility Treatment Goals Patient/Caregiver Goals Pts goals include improving ankle and foot mobility and decreasing stiffness and pain PT-OP-C Subjective Start: 08/24/21 09:51 Freq: Status: Active Protocol: Document 03/30/22 14:35 [facility] (Rec: 06/03/22 22:05 [facility] [phone]-) OP-PT Subjective Patient Comments Patient Comments Fay reports she feel 10 days ago and had a hematoma but has been cleared for PT. She has missed PT and wants to try the Biodex today. PT-OP-F Manual Assessment Start: 08/30/21 13:57 Freq: Status: Active Protocol: Document 08/24/21 09:45 [facility] (Rec: 08/30/21 14:01 [facility] [id number]) Manual Assessments Soft Tissue Assessment Soft Tissue Mobility Assessment scleraderma throughout the calf and plantar fascia making tissue mobililty very difficult. Pt responds well to MFR and manual stretching PT-OP-J Posture/Palpation/Skin Start: 08/24/21 09:51 Freq: Status: Active Protocol: Document 08/24/21 09:45 [facility] (Rec: 08/30/21 09:42 [facility] [id number]) Palpation Assessment Location plantar fascia Palpation Location bilateral plantar fascia Palpation Findings Soft Tissue Tightness, Tenderness Palpation Details guarded and tight plantar fascia bilaterally PT-OP-K Range of Motion Start: 08/24/21 09:51 Freq: Status: Active Protocol: Document 08/24/21 09:45 [facility] (Rec: 08/30/21 09:42 [facility] [id number]) Ankle and Foot Goniometric Range of Motion Ankle and Foot Right Dorsiflexion with Knee Flexed 2 Dorsiflexion with Knee Extended 2 Plantarflexion 6 Inversion 5 Eversion 4 Comments very poor limited ankle mobility Left Dorsiflexion with Knee Flexed 3 Dorsiflexion with Knee Extended 2 Plantarflexion 5 Inversion 5 Eversion 4 Comments very poor limited ankle mobility Ankle and Foot ROM Limitations ROM Limitations Soft Tissue Tightness, Contracture,Pain Comments pt is very limited in ankle and foot ROM, the scleroderma has restricted her joint ROM so much that she only has a few degrees in all planes for her ankle. I am able to mobilize her metatarsals with very limited ROM, tightness in the calf and and plantar fascia B also limits ROM PT-OP-Q Treatments Start: 08/30/21 14:15 Freq: Status: Active Protocol: Document 04/09/22 14:35 [facility] (Rec: 06/03/22 22:05 [facility] [id number]-) Cardio Equipment Recumbent Elliptical (Biodex) Duration (Minutes) 10 Resistance 2 Manual Therapy Treatment Soft Tissue Mobilization B patellar tendon Body Location B Mobilization Type Cross-Friction Intensity/Depth Moderate Body Position Sitting Comments Long sitting Extra time spend over R patellar tendon to allow for elevation durign knee flexion. I can breath better. 1 Body Location B anterior and posterior shins /feet Mobilization Type Myofascial Release Intensity/Depth Superficial Body Position Sitting Comments PROM was performed at the ankles and feet Manual Techniques 2 Type manual stretching for the gastroc/soleus complex Body Location B Body Position Sitting 1 Type PROM stretches were performed at B ankles and feet, manual stretching Body Location B PF/ DF, IV/EV Body Position Sitting Comments improving ankle ROM with manual stretches PT-OP-T Assessment and Plan Start: 08/24/21 09:51 Freq: Status: Active Protocol: Document 04/09/22 14:35 [facility] (Rec: 06/03/22 22:05 [facility] [phone]-) Physical Therapy Assessment Goals 3 Impairment LE, foot and ankle pain rated 7/10 11/15- 8/10 pain; pt feels her pain is getting worse but maybe due to not having PT for 1 month Examination Scorer Goal (LTG) With manual therapy techniques , ROM exercises, stretches, and mobility exercises Fay has a reduction in pain by 2-3 numbers on the pain scale LTG Duration 12 weeks 2 Impairment B Calf and plantar fascia tightness and pain limiting pts ability to walk Short Term Goal (STG) Fay is educated on stretches and manual techniques she can do at home to help with plantar fascia and calf tightness As of 11/15/21 Fay has been educated on stretches to work on at home to help with plantar fascia tightness and calf tightness STG Duration 4 weeks Examination Scorer Goal (LTG) Fay notes a overall reduction in tightness decreasing her pain with walking No change LTG Duration 12 weeks 1 Impairment Poor ankle and foot ROM affecting balance and gait Longterm Goal (LTG) aFy is able to improve her ankle ROM by 5 degrees into DF to assist with gait and balance As of 11/15/21 no change with gait or balance LTG Duration 12 weeks Assessment Summary Assessment Treatment focus ankle mobility decreasing palpable tightness to calves bilaterally. Small superficial wound on bottom of L foot noted and pt advised to follow up with foot doctor . Pt had good feedback response to manual therapy and tolerated 10 minutes on Biodex at end of session. Physical Therapy Plan Frequency and Duration Frequency of Treatment 2x/Week Duration of treatment (weeks) 12 Plan of Care Start Date 03/01/22 Plan of Care End Date 06/01/22 Therapeutic Interventions Therapeutic Interventions Balance Training,Gait Training ,Home Exercise Program,Joint Mobilizations,Manual Therapy, Patient/Caregiver Education, Self-Care/Home Management,Soft Tissue Mobilization, Therapeutic Exercises Next Visit Focus/Plan Next Note Type Treatment Note Next Visit Plan Start with standing gastroc stretches. Continue working on fascial mobility and ROM of the ankle and feet- possibly add 5 min of balance work at end of session
--- NOTE | 2022-04-18 09:43 | PT.OTN ---
Current Diagnoses Systemic sclerosis, unspecified (04/17/22) Unsteadiness on feet (04/17/22) Physical Therapy Treatment Note PT-OP-A Visit Information Start: 08/24/21 09:51 Freq: Status: Active Protocol: Document 04/17/22 15:29 [facility] (Rec: 04/17/22 18:17 [facility] [id number]) Out-Patient Physical Therapy Visit Information Visit Information Visit Type Treatment Note Visit Start Time 15:25 Visit Stop Time 16:00 Total Visit Minutes 35 Visit Number 29 Number of PATTERN CHAIN BUILDER Visits 0 PT-OP-B Current Condition Start: 08/24/21 09:51 Freq: Status: Active Protocol: Document 08/24/21 09:45 [facility] (Rec: 08/24/21 09:56 [facility] [id number]) Current Condition History of Current Condition 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 She also notes that despite going through pulmonary rehab she still feels short of breath all the time. 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, PHM also includes encephalopathy, hair loss, diabetes, [place] in 2019 with 2 stents placed Prior Treatments and Tests Pt has recieved PT in the past for ankle and foot ROM, balance, gait training, MFR and manual therapy techniques to improve ankle and foot mobility Treatment Goals Patient/Caregiver Goals Pts goals include improving ankle and foot mobility and decreasing stiffness and pain PT-OP-C Subjective Start: 08/24/21 09:51 Freq: Status: Active Protocol: Document 04/17/22 15:29 [facility] (Rec: 04/17/22 15:33 [facility] [id number]) OP-PT Subjective Patient Comments Patient Comments Fay reports a couple of weeks ago she fell and hit her head . SHe had a brain MRI at the and she has had bleeding in the brain and in the frontal lobe. She has headaches that come and go and her balance is really bad she notes. She has a appt PT-OP-F Manual Assessment Start: 08/30/21 13:57 Freq: Status: Active Protocol: Document 08/24/21 09:45 [facility] (Rec: 08/30/21 14:01 [facility] [id number]) Manual Assessments Soft Tissue Assessment Soft Tissue Mobility Assessment scleraderma throughout the calf and plantar fascia making tissue mobililty very difficult. Pt responds well to MFR and manual stretching PT-OP-J Posture/Palpation/Skin Start: 08/24/21 09:51 Freq: Status: Active Protocol: Document 08/24/21 09:45 [facility] (Rec: 08/30/21 09:42 [facility] [id number]) Palpation Assessment Location plantar fascia Palpation Location bilateral plantar fascia Palpation Findings Soft Tissue Tightness, Tenderness Palpation Details guarded and tight plantar fascia bilaterally PT-OP-K Range of Motion Start: 08/24/21 09:51 Freq: Status: Active Protocol: Document 08/24/21 09:45 [facility] (Rec: 08/30/21 09:42 [facility] [id number]) Ankle and Foot Goniometric Range of Motion Ankle and Foot Right Dorsiflexion with Knee Flexed 2 Dorsiflexion with Knee Extended 2 Plantarflexion 6 Inversion 5 Eversion 4 Comments very poor limited ankle mobility Left Dorsiflexion with Knee Flexed 3 Dorsiflexion with Knee Extended 2 Plantarflexion 5 Inversion 5 Eversion 4 Comments very poor limited ankle mobility Ankle and Foot ROM Limitations ROM Limitations Soft Tissue Tightness, Contracture,Pain Comments pt is very limited in ankle and foot ROM, the scleroderma has restricted her joint ROM so much that she only has a few degrees in all planes for her ankle. I am able to mobilize her metatarsals with very limited ROM, tightness in the calf and and plantar fascia B also limits ROM PT-OP-Q Treatments Start: 08/30/21 14:15 Freq: Status: Active Protocol: Document 04/17/22 15:29 [facility] (Rec: 04/17/22 18:17 [facility] [id number]) Manual Therapy Treatment Soft Tissue Mobilization bilateral SCM release Mobilization Type Myofascial Release Upper, middle traps Body Location B Mobilization Type Cross-Friction,Rolling Intensity/Depth Moderate Body Position Sitting Comments cued slow breaths and worked on diaphragmatic breathing in sitting Joint Mobilizations thoracic spine Joint PA glides in sitting Direction PA Grade II Body Position Sitting Comments pt had good tolerance today for seated thoracic mobilizations, worked on deep breaths during throacic mobilizations PT-OP-T Assessment and Plan Start: 08/24/21 09:51 Freq: Status: Active Protocol: Document 04/17/22 15:29 [facility] (Rec: 04/18/22 09:34 [facility] [id number]) Physical Therapy Assessment Assessment Summary Assessment Fay returns to PT today after not being seen since 03/14/22/ Since that time she has suffered a fall with a resulting subdural hematoma. She has been seen by neurology and continues to note she feels dizzy at times and has increased weakness. Time was spent today working on her posture and neck and shoulder release as she feels tenderness here after her fall . Physical Therapy Plan Frequency and Duration Frequency of Treatment 2x/Week Duration of treatment (weeks) 12 Plan of Care Start Date 03/01/22 Plan of Care End Date 06/01/22 Therapeutic Interventions Therapeutic Interventions Balance Training,Gait Training ,Home Exercise Program,Joint Mobilizations,Manual Therapy, Patient/Caregiver Education, Self-Care/Home Management,Soft Tissue Mobilization, Therapeutic Exercises Next Visit Focus/Plan Next Note Type Treatment Note Next Visit Plan Start with standing gastroc stretches. Continue working on fascial mobility and ROM of the ankle and feet- possibly add 5 min of balance work at end of session
--- NOTE | 2022-04-19 17:47 | PT.OTN ---
Current Diagnoses Systemic sclerosis, unspecified (04/19/22) Unsteadiness on feet (04/19/22) Physical Therapy Treatment Note PT-OP-A Visit Information Start: 08/24/21 09:51 Freq: Status: Active Protocol: Document 04/19/22 17:39 [facility] (Rec: 04/19/22 17:47 [facility] [id number]) Out-Patient Physical Therapy Visit Information Visit Information Visit Type Treatment Note Visit Start Time 11:15 Visit Stop Time 12:00 Total Visit Minutes 45 Visit Number 30 Number of TIMBER GIRDLER Visits 0 PT-OP-B Current Condition Start: 08/24/21 09:51 Freq: Status: Active Protocol: Document 08/24/21 09:45 [facility] (Rec: 08/24/21 09:56 [facility] [id number]) Current Condition History of Current Condition 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 She also notes that despite going through pulmonary rehab she still feels short of breath all the time. 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, PHM also includes encephalopathy, hair loss, diabetes, [place] in 2019 with 2 stents placed Prior Treatments and Tests Pt has recieved PT in the past for ankle and foot ROM, balance, gait training, MFR and manual therapy techniques to improve ankle and foot mobility Treatment Goals Patient/Caregiver Goals Pts goals include improving ankle and foot mobility and decreasing stiffness and pain PT-OP-C Subjective Start: 08/24/21 09:51 Freq: Status: Active Protocol: Document 04/19/22 17:39 [facility] (Rec: 04/19/22 17:47 [facility] [id number]) OP-PT Subjective Patient Comments Patient Comments from note 04/17/22 Fay reports a couple of weeks ago she fell and hit her head. SHe had a brain MRI at the and she has had bleeding in the brain and in the frontal lobe. She has headaches that come and go and her balance is really bad she notes. She is doing better today than she was on saturday and felt tx on saturday helped her PT-OP-F Manual Assessment Start: 08/30/21 13:57 Freq: Status: Active Protocol: Document 08/24/21 09:45 [facility] (Rec: 08/30/21 14:01 [facility] [id number]) Manual Assessments Soft Tissue Assessment Soft Tissue Mobility Assessment scleraderma throughout the calf and plantar fascia making tissue mobililty very difficult. Pt responds well to MFR and manual stretching PT-OP-J Posture/Palpation/Skin Start: 08/24/21 09:51 Freq: Status: Active Protocol: Document 08/24/21 09:45 [facility] (Rec: 08/30/21 09:42 [facility] [id number]) Palpation Assessment Location plantar fascia Palpation Location bilateral plantar fascia Palpation Findings Soft Tissue Tightness, Tenderness Palpation Details guarded and tight plantar fascia bilaterally PT-OP-K Range of Motion Start: 08/24/21 09:51 Freq: Status: Active Protocol: Document 08/24/21 09:45 [facility] (Rec: 08/30/21 09:42 [facility] [id number]) Ankle and Foot Goniometric Range of Motion Ankle and Foot Right Dorsiflexion with Knee Flexed 2 Dorsiflexion with Knee Extended 2 Plantarflexion 6 Inversion 5 Eversion 4 Comments very poor limited ankle mobility Left Dorsiflexion with Knee Flexed 3 Dorsiflexion with Knee Extended 2 Plantarflexion 5 Inversion 5 Eversion 4 Comments very poor limited ankle mobility Ankle and Foot ROM Limitations ROM Limitations Soft Tissue Tightness, Contracture,Pain Comments pt is very limited in ankle and foot ROM, the scleroderma has restricted her joint ROM so much that she only has a few degrees in all planes for her ankle. I am able to mobilize her metatarsals with very limited ROM, tightness in the calf and and plantar fascia B also limits ROM PT-OP-Q Treatments Start: 08/30/21 14:15 Freq: Status: Active Protocol: Document 04/19/22 17:39 [facility] (Rec: 04/19/22 17:47 [facility] [id number]) Therapeutic Exercises Supine Exercises seated scapula retractions Reps/Minutes x 15 seated foot rolls on soft golf ball Comments x 15 min during work on upper trapezius Manual Therapy Treatment Soft Tissue Mobilization bilateral SCM release Mobilization Type Myofascial Release Upper, middle traps Body Location B Mobilization Type Cross-Friction,Rolling Intensity/Depth Moderate Body Position Sitting Comments cued slow breaths and worked on diaphragmatic breathing in sitting B patellar tendon Body Location B Mobilization Type Cross-Friction Intensity/Depth Moderate Body Position Sitting Comments Long sitting Extra time spend over R patellar tendon to allow for elevation durign knee flexion. I can breath better. Joint Mobilizations MTPs, intertarsals, calcaneus on talus/navicular Joint B Direction AP, med/lat Grade II Body Position Sitting Comments long sitting thoracic spine Joint PA glides in sitting Direction PA Grade II Body Position Sitting Comments pt had good tolerance today for seated thoracic mobilizations, worked on deep breaths during throacic mobilizations Manual Techniques 2 Type manual stretching for the gastroc/soleus complex Body Location B Body Position Sitting 1 Type PROM stretches were performed at B ankles and feet, manual stretching Body Location B PF/ DF, IV/EV Body Position Sitting Comments improving ankle ROM with manual stretches PT-OP-T Assessment and Plan Start: 08/24/21 09:51 Freq: Status: Active Protocol: Document 04/19/22 17:39 [facility] (Rec: 04/19/22 17:47 [facility] [id number]) Physical Therapy Assessment Assessment Summary Assessment Fay sat in a chair today for treatment, this worked really well She worked on rolling her feet on a soft golf ball( yellow one) during manual work on her neck and shoulders. She has been having more neck pain since her fall and head injury. I worked on her feet in a seated position. Her left foot has a deeper wound that before. She will talk to her foot doctor regarding this and this area in the dorsal aspect of her foot was avoided today Physical Therapy Plan Frequency and Duration Frequency of Treatment 2x/Week Duration of treatment (weeks) 12 Plan of Care Start Date 03/01/22 Plan of Care End Date 06/01/22 Therapeutic Interventions Therapeutic Interventions Balance Training,Gait Training ,Home Exercise Program,Joint Mobilizations,Manual Therapy, Patient/Caregiver Education, Self-Care/Home Management,Soft Tissue Mobilization, Therapeutic Exercises Next Visit Focus/Plan Next Note Type Treatment Note Next Visit Plan standing calf stretches with chair, seated ball rolls andshoulder blade retractions. Continue to work on pain relief in the neck and ROM of the foot and ankles
--- NOTE | 2022-05-01 18:21 | PT.OTN ---
Current Diagnoses Systemic sclerosis, unspecified (05/01/22) Unsteadiness on feet (05/01/22) Physical Therapy Treatment Note PT-OP-A Visit Information Start: 08/24/21 09:51 Freq: Status: Active Protocol: Document 05/01/22 13:07 [facility] (Rec: 05/01/22 13:19 [facility] [id number]) Out-Patient Physical Therapy Visit Information Visit Information Visit Type Treatment Note Visit Start Time 13:04 Visit Stop Time 13:57 Total Visit Minutes 53 Visit Number 31 Number of ENTRY LEVEL MARKETING ASSISTANT Visits 1 PT-OP-B Current Condition Start: 08/24/21 09:51 Freq: Status: Active Protocol: Document 08/24/21 09:45 [facility] (Rec: 08/24/21 09:56 [facility] [id number]) Current Condition History of Current Condition 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 She also notes that despite going through pulmonary rehab she still feels short of breath all the time. 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, PHM also includes encephalopathy, hair loss, diabetes, [place] in 2019 with 2 stents placed Prior Treatments and Tests Pt has recieved PT in the past for ankle and foot ROM, balance, gait training, MFR and manual therapy techniques to improve ankle and foot mobility Treatment Goals Patient/Caregiver Goals Pts goals include improving ankle and foot mobility and decreasing stiffness and pain PT-OP-C Subjective Start: 08/24/21 09:51 Freq: Status: Active Protocol: Document 05/01/22 13:07 [facility] (Rec: 05/01/22 13:19 [facility] [id number]) OP-PT Subjective Patient Comments Patient Comments Pt reports she has been tired and sleeping a lot from the concussion but that she feels she is getting better and has less balance issues. She hasn' t left the house in days because the concussion made me feel old and vulnerable and not feeling that well at all and I just got deep deep depression that I just thought I was never going to come out of. It really brought me down. One day I woke up and it was better. Pt is on anti- depressants It's the best one I've had. She does neck stretches all day but Ever since the fall my neck has been really sore. Pt reports she cancelled appt w/ foot doctor when she wasn't up to going. PT-OP-F Manual Assessment Start: 08/30/21 13:57 Freq: Status: Active Protocol: Document 08/24/21 09:45 [facility] (Rec: 08/30/21 14:01 [facility] [id number]) Manual Assessments Soft Tissue Assessment Soft Tissue Mobility Assessment scleraderma throughout the calf and plantar fascia making tissue mobililty very difficult. Pt responds well to MFR and manual stretching PT-OP-J Posture/Palpation/Skin Start: 08/24/21 09:51 Freq: Status: Active Protocol: Document 08/24/21 09:45 [facility] (Rec: 08/30/21 09:42 [facility] [id number]) Palpation Assessment Location plantar fascia Palpation Location bilateral plantar fascia Palpation Findings Soft Tissue Tightness, Tenderness Palpation Details guarded and tight plantar fascia bilaterally PT-OP-K Range of Motion Start: 08/24/21 09:51 Freq: Status: Active Protocol: Document 08/24/21 09:45 [facility] (Rec: 08/30/21 09:42 [facility] [id number]) Ankle and Foot Goniometric Range of Motion Ankle and Foot Right Dorsiflexion with Knee Flexed 2 Dorsiflexion with Knee Extended 2 Plantarflexion 6 Inversion 5 Eversion 4 Comments very poor limited ankle mobility Left Dorsiflexion with Knee Flexed 3 Dorsiflexion with Knee Extended 2 Plantarflexion 5 Inversion 5 Eversion 4 Comments very poor limited ankle mobility Ankle and Foot ROM Limitations ROM Limitations Soft Tissue Tightness, Contracture,Pain Comments pt is very limited in ankle and foot ROM, the scleroderma has restricted her joint ROM so much that she only has a few degrees in all planes for her ankle. I am able to mobilize her metatarsals with very limited ROM, tightness in the calf and and plantar fascia B also limits ROM PT-OP-Q Treatments Start: 08/30/21 14:15 Freq: Status: Active Protocol: Document 10/11/22 13:07 [facility] (Rec: 05/01/22 13:19 [facility] [id number]) Cardio Equipment Recumbent Stepper (Sci-Fit) Duration (Minutes) 15 Other after treatment Manual Therapy Treatment Soft Tissue Mobilization Upper, middle traps Body Location B Mobilization Type Cross-Friction,Rolling Intensity/Depth Moderate Body Position Sitting Comments cued slow breaths and worked on diaphragmatic breathing in sitting B patellar tendon Body Location B Mobilization Type Cross-Friction Intensity/Depth Moderate Body Position Sitting Comments Long sitting Extra time spend over R patellar tendon to allow for elevation durign knee flexion. I can breath better. 1 Body Location B anterior and posterior shins /feet Mobilization Type Myofascial Release Intensity/Depth Superficial Body Position Sitting Comments PROM was performed at the ankles and feet Manual Techniques 2 Type manual stretching for the gastroc/soleus complex Body Location B Body Position Sitting PT-OP-T Assessment and Plan Start: 08/24/21 09:51 Freq: Status: Active Protocol: Document 05/01/22 13:07 [facility] (Rec: 05/01/22 13:19 [facility] [id number]) Physical Therapy Assessment Goals 3 Impairment LE, foot and ankle pain rated 7/10 11/15- 8/10 pain; pt feels her pain is getting worse but maybe due to not having PT for 1 month Asset Analyst Goal (LTG) With manual therapy techniques , ROM exercises, stretches, and mobility exercises Fay has a reduction in pain by 2-3 numbers on the pain scale LTG Duration 12 weeks 2 Impairment B Calf and plantar fascia tightness and pain limiting pts ability to walk Short Term Goal (STG) Fay is educated on stretches and manual techniques she can do at home to help with plantar fascia and calf tightness As of 11/15/21 Fay has been educated on stretches to work on at home to help with plantar fascia tightness and calf tightness STG Duration 4 weeks Long-Term Goal (LTG) Fay notes a overall reduction in tightness decreasing her pain with walking No change LTG Duration 12 weeks 1 Impairment Poor ankle and foot ROM affecting balance and gait Long-Term Goal (LTG) Fay is able to improve her ankle ROM by 5 degrees into DF to assist with gait and balance As of 11/15/21 no change with gait or balance LTG Duration 12 weeks Assessment Summary Assessment Treatment focus on manual therapy to improve ROM in foot and ankles and pain relief in neck. Fay sat in a chair for manual therapy to feet and neck. Pt has good feedback response to all manual. Pt wound on plantar aspect of L foot appears deeper than 04/09 visit - pt requested photo w/ her phone and will reschedule cancelled appointment w/ foot doctor. Pt completed 11.5 min on the Sci-fit recumbent stepper end of treatment session. Pt will benefit from continued skilled therapeutic intervention. Physical Therapy Plan Frequency and Duration Frequency of Treatment 2x/Week Duration of treatment (weeks) 12 Plan of Care Start Date 03/01/22 Plan of Care End Date 06/01/22 Therapeutic Interventions Therapeutic Interventions Balance Training,Gait Training ,Home Exercise Program,Joint Mobilizations,Manual Therapy, Patient/Caregiver Education, Self-Care/Home Management,Soft Tissue Mobilization, Therapeutic Exercises Next Visit Focus/Plan Next Note Type Treatment Note Next Visit Plan standing calf stretches with chair, seated ball rolls and shoulder blade retractions. Continue to work on pain relief in the neck and ROM of the foot and ankles
--- NOTE | 2022-05-15 14:10 | PT.OTN ---
Current Diagnoses Systemic sclerosis, unspecified (05/22/22) Unsteadiness on feet (05/22/22) Physical Therapy Treatment Note PT-OP-A Visit Information Start: 08/24/21 09:51 Freq: Status: Active Protocol: Document 05/15/22 10:31 [facility] (Rec: 05/15/22 10:41 [facility] [id number]) Out-Patient Physical Therapy Visit Information Visit Information Visit Type Treatment Note Visit Start Time 10:35 Visit Stop Time 11:15 Total Visit Minutes 40 Visit Number 32 Number of INSTRUMENT MAN Visits 0 PT-OP-B Current Condition Start: 08/24/21 09:51 Freq: Status: Active Protocol: Document 08/24/21 09:45 [facility] (Rec: 08/24/21 09:56 [facility] [id number]) Current Condition History of Current Condition 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 She also notes that despite going through pulmonary rehab she still feels short of breath all the time. 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, PHM also includes encephalopathy, hair loss, diabetes, [place] in 2019 with 2 stents placed Prior Treatments and Tests Pt has recieved PT in the past for ankle and foot ROM, balance, gait training, MFR and manual therapy techniques to improve ankle and foot mobility Treatment Goals Patient/Caregiver Goals Pts goals include improving ankle and foot mobility and decreasing stiffness and pain PT-OP-C Subjective Start: 08/24/21 09:51 Freq: Status: Active Protocol: Document 05/15/22 10:31 [facility] (Rec: 05/15/22 10:41 [facility] [id number]) OP-PT Subjective Patient Comments Patient Comments Fay notes she has felt much improved, all she is doing is painting, eating and sleeping. She notes her feet are hurting. PT-OP-F Manual Assessment Start: 08/30/21 13:57 Freq: Status: Active Protocol: Document 08/24/21 09:45 [facility] (Rec: 08/30/21 14:01 [facility] [id number]) Manual Assessments Soft Tissue Assessment Soft Tissue Mobility Assessment scleraderma throughout the calf and plantar fascia making tissue mobililty very difficult. Pt responds well to MFR and manual stretching PT-OP-J Posture/Palpation/Skin Start: 08/24/21 09:51 Freq: Status: Active Protocol: Document 08/24/21 09:45 [facility] (Rec: 08/30/21 09:42 [facility] [id number]) Palpation Assessment Location plantar fascia Palpation Location bilateral plantar fascia Palpation Findings Soft Tissue Tightness, Tenderness Palpation Details guarded and tight plantar fascia bilaterally PT-OP-K Range of Motion Start: 08/24/21 09:51 Freq: Status: Active Protocol: Document 08/24/21 09:45 [facility] (Rec: 08/30/21 09:42 [facility] [id number]) Ankle and Foot Goniometric Range of Motion Ankle and Foot Right Dorsiflexion with Knee Flexed 2 Dorsiflexion with Knee Extended 2 Plantarflexion 6 Inversion 5 Eversion 4 Comments very poor limited ankle mobility Left Dorsiflexion with Knee Flexed 3 Dorsiflexion with Knee Extended 2 Plantarflexion 5 Inversion 5 Eversion 4 Comments very poor limited ankle mobility Ankle and Foot ROM Limitations ROM Limitations Soft Tissue Tightness, Contracture,Pain Comments pt is very limited in ankle and foot ROM, the scleroderma has restricted her joint ROM so much that she only has a few degrees in all planes for her ankle. I am able to mobilize her metatarsals with very limited ROM, tightness in the calf and and plantar fascia B also limits ROM PT-OP-Q Treatments Start: 08/30/21 14:15 Freq: Status: Active Protocol: Document 05/15/22 10:30 [facility] (Rec: 05/22/22 14:10 [facility] [id number]) Manual Therapy Treatment Joint Mobilizations MTPs, intertarsals, calcaneus on talus/navicular Joint B Direction AP, med/lat Grade II Body Position Sitting Comments long sitting thoracic spine Joint PA glides in sitting Direction PA Grade II Body Position Sitting Comments pt had good tolerance today for seated thoracic mobilizations, worked on deep breaths during throacic mobilizations Patella mobes Joint B Direction med/lat/sup/inf Grade II Body Position Sitting Comments Long sitting. Manual Techniques 2 Type manual stretching for the gastroc/soleus complex Body Location B Body Position Sitting 1 Type PROM stretches were performed at B ankles and feet, manual stretching Body Location B PF/ DF, IV/EV Body Position Sitting Comments improving ankle ROM with manual stretches PT-OP-T Assessment and Plan Start: 08/24/21 09:51 Freq: Status: Active Protocol: Document 05/15/22 10:30 [facility] (Rec: 05/22/22 14:10 [facility] [id number]) Physical Therapy Assessment Assessment Summary Assessment Fay is feeling better again after sustaining her head injury. She was able to ride the [employer] x 15 min following her appt today Physical Therapy Plan Frequency and Duration Frequency of Treatment 2x/Week Duration of treatment (weeks) 12 Plan of Care Start Date 03/01/22 Plan of Care End Date 06/01/22 Therapeutic Interventions Therapeutic Interventions Balance Training,Gait Training ,Home Exercise Program,Joint Mobilizations,Manual Therapy, Patient/Caregiver Education, Self-Care/Home Management,Soft Tissue Mobilization, Therapeutic Exercises Next Visit Focus/Plan Next Note Type Treatment Note Next Visit Plan standing calf stretches with chair, seated ball rolls and shoulder blade retractions. Continue to work on pain relief in the neck and ROM of the foot and ankles
--- NOTE | 2022-05-22 14:24 | PT.OTN ---
Current Diagnoses Systemic sclerosis, unspecified (05/22/22) Unsteadiness on feet (05/22/22) Physical Therapy Treatment Note PT-OP-A Visit Information Start: 08/24/21 09:51 Freq: Status: Active Protocol: Document 05/22/22 11:15 [facility] (Rec: 05/22/22 14:24 [facility] [id number]) Out-Patient Physical Therapy Visit Information Visit Information Visit Type Progress Note Visit Start Time 11:15 Visit Stop Time 12:00 Total Visit Minutes 45 Visit Number 33 Number of OFFSET PLATE MAKER Visits 0 PT-OP-B Current Condition Start: 08/24/21 09:51 Freq: Status: Active Protocol: Document 08/24/21 09:45 [facility] (Rec: 08/24/21 09:56 [facility] [id number]) Current Condition History of Current Condition 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 She also notes that despite going through pulmonary rehab she still feels short of breath all the time. 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, PHM also includes encephalopathy, hair loss, diabetes, [place] in 2019 with 2 stents placed Prior Treatments and Tests Pt has recieved PT in the past for ankle and foot ROM, balance, gait training, MFR and manual therapy techniques to improve ankle and foot mobility Treatment Goals Patient/Caregiver Goals Pts goals include improving ankle and foot mobility and decreasing stiffness and pain PT-OP-C Subjective Start: 08/24/21 09:51 Freq: Status: Active Protocol: Document 05/22/22 11:15 [facility] (Rec: 05/22/22 14:24 [facility] [id number]) OP-PT Subjective Patient Comments Patient Comments Fay reports she has been painting a lot and feels inspired to paint. She would like to ride the sci fit again after her appt today PT-OP-F Manual Assessment Start: 08/30/21 13:57 Freq: Status: Active Protocol: Document 08/24/21 09:45 [facility] (Rec: 08/30/21 14:01 [facility] [id number]) Manual Assessments Soft Tissue Assessment Soft Tissue Mobility Assessment scleraderma throughout the calf and plantar fascia making tissue mobililty very difficult. Pt responds well to MFR and manual stretching PT-OP-J Posture/Palpation/Skin Start: 08/24/21 09:51 Freq: Status: Active Protocol: Document 08/24/21 09:45 [facility] (Rec: 08/30/21 09:42 [facility] [id number]) Palpation Assessment Location plantar fascia Palpation Location bilateral plantar fascia Palpation Findings Soft Tissue Tightness, Tenderness Palpation Details guarded and tight plantar fascia bilaterally PT-OP-K Range of Motion Start: 08/24/21 09:51 Freq: Status: Active Protocol: Document 08/24/21 09:45 [facility] (Rec: 08/30/21 09:42 [facility] [id number]) Ankle and Foot Goniometric Range of Motion Ankle and Foot Right Dorsiflexion with Knee Flexed 2 Dorsiflexion with Knee Extended 2 Plantarflexion 6 Inversion 5 Eversion 4 Comments very poor limited ankle mobility Left Dorsiflexion with Knee Flexed 3 Dorsiflexion with Knee Extended 2 Plantarflexion 5 Inversion 5 Eversion 4 Comments very poor limited ankle mobility Ankle and Foot ROM Limitations ROM Limitations Soft Tissue Tightness, Contracture,Pain Comments pt is very limited in ankle and foot ROM, the scleroderma has restricted her joint ROM so much that she only has a few degrees in all planes for her ankle. I am able to mobilize her metatarsals with very limited ROM, tightness in the calf and and plantar fascia B also limits ROM PT-OP-Q Treatments Start: 08/30/21 14:15 Freq: Status: Active Protocol: Document 05/22/22 11:15 [facility] (Rec: 05/22/22 14:24 [facility] [id number]) Manual Therapy Treatment Soft Tissue Mobilization Upper, middle traps Body Location B Mobilization Type Cross-Friction,Rolling Intensity/Depth Moderate Body Position Sitting Comments cued slow breaths and worked on diaphragmatic breathing in sitting B patellar tendon Body Location B Mobilization Type Cross-Friction Intensity/Depth Moderate Body Position Sitting Comments Long sitting Extra time spend over R patellar tendon to allow for elevation durign knee flexion. I can breath better. R pec, coracobrachialis Body Location R in sitting Mobilization Type Cross-Friction,Myofascial Release Intensity/Depth Moderate Body Position Sitting 1 Body Location B anterior and posterior shins /feet Mobilization Type Myofascial Release Intensity/Depth Superficial Body Position Sitting Comments PROM was performed at the ankles and feet Joint Mobilizations MTPs, intertarsals, calcaneus on talus/navicular Joint B Direction AP, med/lat Grade II Body Position Sitting Comments long sitting thoracic spine Joint PA glides in sitting Direction PA Grade II Body Position Sitting Comments pt had good tolerance today for seated thoracic mobilizations, worked on deep breaths during throacic mobilizations Manual Techniques 2 Type manual stretching for the gastroc/soleus complex Body Location B Body Position Sitting 1 Type PROM stretches were performed at B ankles and feet, manual stretching Body Location B PF/ DF, IV/EV Body Position Sitting Comments improving ankle ROM with manual stretches PT-OP-T Assessment and Plan Start: 08/24/21 09:51 Freq: Status: Active Protocol: Document 05/22/22 11:15 [facility] (Rec: 05/22/22 14:24 [facility] [id number]) Physical Therapy Assessment Goals 3 Impairment LE, foot and ankle pain rated 7/10 05/22/22- pain; pt feels her pain improving 6/10 Senior Living Goal (LTG) With manual therapy techniques , ROM exercises, stretches, and mobility exercises Fay has a reduction in pain by 2-3 numbers on the pain scale good progress LTG Duration 12 weeks 2 Impairment B Calf and plantar fascia tightness and pain limiting pts ability to walk Short Term Goal (STG) Fay is educated on stretches and manual techniques she can do at home to help with plantar fascia and calf tightness As of 11/15/21 Fay has been educated on stretches to work on at home to help with plantar fascia tightness and calf tightness Good progress STG Duration 4 weeks Senior Living Goal (LTG) Fay notes a overall reduction in tightness decreasing her pain with walking some progress LTG Duration 12 weeks 1 Impairment Poor ankle and foot ROM affecting balance and gait Joint Maker Machine Goal (LTG) Fay is able to improve her ankle ROM by 5 degrees into DF to assist with gait and balance LTG Duration 12 weeks Assessment Summary Assessment Fay had more energy today and was able to stay after her treatment and did 27 min on the sci fit. She had more white patches of skin on her feet today but her wound on the plantar aspect is healing now. Pt would benefit from continued PT focusing on ankle joint mobility, gait and balance Physical Therapy Plan Frequency and Duration Frequency of Treatment 2x/Week Duration of treatment (weeks) 12 Plan of Care Start Date 05/22/22 Plan of Care End Date 07/22/22 Therapeutic Interventions Therapeutic Interventions Balance Training,Gait Training ,Home Exercise Program,Joint Mobilizations,Manual Therapy, Patient/Caregiver Education, Self-Care/Home Management,Soft Tissue Mobilization, Therapeutic Exercises Next Visit Focus/Plan Next Note Type Treatment Note Next Visit Plan standing calf stretches with chair, seated ball rolls and shoulder blade retractions. Continue to work on pain relief in the neck and ROM of the foot and ankles
--- NOTE | 2022-05-22 14:24 | PT.OPPOC ---
Physical, Occupational & Speech Therapy At [facility] Current Diagnoses Systemic sclerosis, unspecified (05/22/22) Unsteadiness on feet (05/22/22) Visit Care Team Role Provider Type Timur Schwartz MD Attending Provider Physician Family Provider Primary Care Provider Referring Provider Specialty: Internal Medicine Address: [address] [place] [address], [facility] Email: [email or web address] Plan Of Care PT-OP-T Assessment and Plan Start: 08/24/21 09:51 Freq: Status: Active Protocol: Document 05/22/22 11:15 [facility] (Rec: 05/22/22 14:24 [facility] [id number]) Physical Therapy Assessment Goals 3 Impairment LE, foot and ankle pain rated 7/10 05/22/22- pain; pt feels her pain improving 6/10 Exterior Door Installer Goal (LTG) With manual therapy techniques , ROM exercises, stretches, and mobility exercises Fay has a reduction in pain by 2-3 numbers on the pain scale good progress LTG Duration 12 weeks 2 Impairment B Calf and plantar fascia tightness and pain limiting pts ability to walk Short Term Goal (STG) Fay is educated on stretches and manual techniques she can do at home to help with plantar fascia and calf tightness As of 11/15/21 Fay has been educated on stretches to work on at home to help with plantar fascia tightness and calf tightness Good progress STG Duration 4 weeks Exterior Door Installer Goal (LTG) Fay notes a overall reduction in tightness decreasing her pain with walking some progress LTG Duration 12 weeks 1 Impairment Poor ankle and foot ROM affecting balance and gait [facility] Goal (LTG) Fay is able to improve her ankle ROM by 5 degrees into DF to assist with gait and balance LTG Duration 12 weeks Assessment Summary Assessment Fay had more energy today and was able to stay after her treatment and did 27 min on the sci fit. She had more white patches of skin on her feet today but her wound on the plantar aspect is healing now. Pt would benefit from continued PT focusing on ankle joint mobility, gait and balance Physical Therapy Plan Frequency and Duration Frequency of Treatment 2x/Week Duration of treatment (weeks) 12 Plan of Care Start Date 05/22/22 Plan of Care End Date 07/22/22 Therapeutic Interventions Therapeutic Interventions Balance Training,Gait Training ,Home Exercise Program,Joint Mobilizations,Manual Therapy, Patient/Caregiver Education, Self-Care/Home Management,Soft Tissue Mobilization, Therapeutic Exercises Next Visit Focus/Plan Next Note Type Treatment Note Next Visit Plan standing calf stretches with chair, seated ball rolls and shoulder blade retractions. Continue to work on pain relief in the neck and ROM of the foot and ankles Plan of Care Dates Plan of Care Start Date 05/22/22 Plan of Care End Date 07/22/22 Electronically Signed by: Nidhi Villanueva, PT 05/22/22 1424 If you are in agreement with this Plan of Care, please return a signed and dated copy. I have reviewed this Plan of Care and certify that the skilled therapy services above are required to meet the patient?s needs. Physician Signature Date Printed Name and Credentials Clinical Instructor Signature Printed Name and Credentials
--- NOTE | 2022-06-05 20:37 | PT.OTN ---
Current Diagnoses Systemic sclerosis, unspecified (06/05/22) Unsteadiness on feet (06/05/22) Physical Therapy Treatment Note PT-OP-A Visit Information Start: 08/24/21 09:51 Freq: Status: Active Protocol: Document 06/05/22 20:22 [facility] (Rec: 06/05/22 20:37 [facility] [id number]) Out-Patient Physical Therapy Visit Information Visit Information Visit Type Treatment Note Visit Start Time 13:03 Visit Stop Time 13:54 Total Visit Minutes 51 Visit Number 35 PT-OP-B Current Condition Start: 08/24/21 09:51 Freq: Status: Active Protocol: Document 08/24/21 09:45 [facility] (Rec: 08/24/21 09:56 [facility] [id number]) Current Condition History of Current Condition 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 She also notes that despite going through pulmonary rehab she still feels short of breath all the time. 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, PHM also includes encephalopathy, hair loss, diabetes, [place] in 2019 with 2 stents placed Prior Treatments and Tests Pt has recieved PT in the past for ankle and foot ROM, balance, gait training, MFR and manual therapy techniques to improve ankle and foot mobility Treatment Goals Patient/Caregiver Goals Pts goals include improving ankle and foot mobility and decreasing stiffness and pain PT-OP-C Subjective Start: 08/24/21 09:51 Freq: Status: Active Protocol: Document 06/05/22 20:22 [facility] (Rec: 06/05/22 20:37 [facility] [id number]) OP-PT Subjective Patient Comments Patient Comments Fay reports her psoriasis is acting up and her feet hurt a lot. She sees the foot doctor tomorrow. She had more energy last visit but not today. PT-OP-F Manual Assessment Start: 08/30/21 13:57 Freq: Status: Active Protocol: Document 08/24/21 09:45 [facility] (Rec: 08/30/21 14:01 [facility] [id number]) Manual Assessments Soft Tissue Assessment Soft Tissue Mobility Assessment scleraderma throughout the calf and plantar fascia making tissue mobililty very difficult. Pt responds well to MFR and manual stretching PT-OP-J Posture/Palpation/Skin Start: 08/24/21 09:51 Freq: Status: Active Protocol: Document 08/24/21 09:45 [facility] (Rec: 08/30/21 09:42 [facility] [id number]) Palpation Assessment Location plantar fascia Palpation Location bilateral plantar fascia Palpation Findings Soft Tissue Tightness, Tenderness Palpation Details guarded and tight plantar fascia bilaterally PT-OP-K Range of Motion Start: 08/24/21 09:51 Freq: Status: Active Protocol: Document 08/24/21 09:45 [facility] (Rec: 08/30/21 09:42 [facility] [id number]) Ankle and Foot Goniometric Range of Motion Ankle and Foot Right Dorsiflexion with Knee Flexed 2 Dorsiflexion with Knee Extended 2 Plantarflexion 6 Inversion 5 Eversion 4 Comments very poor limited ankle mobility Left Dorsiflexion with Knee Flexed 3 Dorsiflexion with Knee Extended 2 Plantarflexion 5 Inversion 5 Eversion 4 Comments very poor limited ankle mobility Ankle and Foot ROM Limitations ROM Limitations Soft Tissue Tightness, Contracture,Pain Comments pt is very limited in ankle and foot ROM, the scleroderma has restricted her joint ROM so much that she only has a few degrees in all planes for her ankle. I am able to mobilize her metatarsals with very limited ROM, tightness in the calf and and plantar fascia B also limits ROM PT-OP-Q Treatments Start: 08/30/21 14:15 Freq: Status: Active Protocol: Document 06/05/22 20:22 [facility] (Rec: 06/05/22 20:37 [facility] [id number]) Manual Therapy Treatment Soft Tissue Mobilization B patellar tendon Body Location B Mobilization Type Cross-Friction Intensity/Depth Moderate Body Position Sitting Comments Long sitting Extra time spend over R patellar tendon to allow for elevation durign knee flexion. I can breath better. 1 Body Location B anterior and posterior shins /feet Mobilization Type Myofascial Release Intensity/Depth Superficial Body Position Sitting Comments PROM was performed at the ankles and feet Joint Mobilizations MTPs, intertarsals, calcaneus on talus/navicular Joint B Direction AP, med/lat Grade II Body Position Sitting Comments long sitting Manual Techniques 2 Type manual stretching for the gastroc/soleus complex Body Location B Body Position Sitting Comments long sitting 1 Type PROM stretches were performed at B ankles and feet, manual stretching Body Location B PF/ DF, IV/EV Body Position Sitting Comments improving ankle ROM with manual stretches PT-OP-T Assessment and Plan Start: 08/24/21 09:51 Freq: Status: Active Protocol: Document 06/05/22 20:22 [facility] (Rec: 06/05/22 20:37 [facility] [id number]) Physical Therapy Assessment Goals 3 Impairment LE, foot and ankle pain rated 7/10 05/22/22- pain; pt feels her pain improving 6/10 Fpc Goal (LTG) With manual therapy techniques , ROM exercises, stretches, and mobility exercises Fay has a reduction in pain by 2-3 numbers on the pain scale good progress LTG Duration 12 weeks 2 Impairment B Calf and plantar fascia tightness and pain limiting pts ability to walk Short Term Goal (STG) Fay is educated on stretches and manual techniques she can do at home to help with plantar fascia and calf tightness As of 11/15/21 Fay has been educated on stretches to work on at home to help with plantar fascia tightness and calf tightness Good progress STG Duration 4 weeks Fpc Goal (LTG) Fay notes a overall reduction in tightness decreasing her pain with walking some progress LTG Duration 12 weeks 1 Impairment Poor ankle and foot ROM affecting balance and gait Trench Digger Helper Goal (LTG) Fay is able to improve her ankle ROM by 5 degrees into DF to assist with gait and balance LTG Duration 12 weeks Assessment Summary Assessment Fay presents today with worsening of thickened skin on plantar aspect of feet bilaterally and bumps to shins which pt believes are blisters related to psoriasis flareup, possibly due to pt receiving psoriasis injection late (~ 3 weeks ago). Wound to L plantar aspect appears to be healing - pt to see foot MD tomorrow. Pt has observable improved ankle and foot mobility after manual therapy and good feedback response reporting decreased pain. Pt stayed after appointment to use recumbent stepper (Sci-fit ). Pt will benefit from continued skilled therapeutic intervention. Physical Therapy Plan Frequency and Duration Frequency of Treatment 2x/Week Duration of treatment (weeks) 12 Plan of Care Start Date 05/22/22 Plan of Care End Date 07/22/22 Therapeutic Interventions Therapeutic Interventions Balance Training,Gait Training ,Home Exercise Program,Joint Mobilizations,Manual Therapy, Patient/Caregiver Education, Self-Care/Home Management,Soft Tissue Mobilization, Therapeutic Exercises Next Visit Focus/Plan Next Note Type Treatment Note Next Visit Plan standing calf stretches with chair, seated ball rolls and shoulder blade retractions. Continue to work on pain relief in the neck and ROM of the foot and ankles
--- NOTE | 2022-06-13 09:31 | PT.OTN ---
Current Diagnoses Systemic sclerosis, unspecified (06/12/22) Unsteadiness on feet (06/12/22) Physical Therapy Treatment Note PT-OP-A Visit Information Start: 08/24/21 09:51 Freq: Status: Active Protocol: Document 06/12/22 13:01 [facility] (Rec: 06/12/22 13:47 [facility] [id number]) Out-Patient Physical Therapy Visit Information Visit Information Visit Type Treatment Note Visit Start Time 13:02 Visit Stop Time 13:45 Total Visit Minutes 43 Visit Number 36 PT-OP-B Current Condition Start: 08/24/21 09:51 Freq: Status: Active Protocol: Document 08/24/21 09:45 [facility] (Rec: 08/24/21 09:56 [facility] [id number]) Current Condition History of Current Condition 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 She also notes that despite going through pulmonary rehab she still feels short of breath all the time. 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, PHM also includes encephalopathy, hair loss, diabetes, [place] in 2019 with 2 stents placed Prior Treatments and Tests Pt has recieved PT in the past for ankle and foot ROM, balance, gait training, MFR and manual therapy techniques to improve ankle and foot mobility Treatment Goals Patient/Caregiver Goals Pts goals include improving ankle and foot mobility and decreasing stiffness and pain PT-OP-C Subjective Start: 08/24/21 09:51 Freq: Status: Active Protocol: Document 06/12/22 13:01 [facility] (Rec: 06/12/22 13:47 [facility] [id number]) OP-PT Subjective Patient Comments Patient Comments Fay reports she hasd her ultrasound to check her cartiod artery is today. She still feels fatigued. She notes her feet are continuing to peel. SHe notes her foot doctor does not seem concerned about the sore on the plantar aspect of her foot. PT-OP-F Manual Assessment Start: 08/30/21 13:57 Freq: Status: Active Protocol: Document 08/24/21 09:45 [facility] (Rec: 08/30/21 14:01 [facility] [id number]) Manual Assessments Soft Tissue Assessment Soft Tissue Mobility Assessment scleraderma throughout the calf and plantar fascia making tissue mobililty very difficult. Pt responds well to MFR and manual stretching PT-OP-J Posture/Palpation/Skin Start: 08/24/21 09:51 Freq: Status: Active Protocol: Document 08/24/21 09:45 [facility] (Rec: 08/30/21 09:42 [facility] [id number]) Palpation Assessment Location plantar fascia Palpation Location bilateral plantar fascia Palpation Findings Soft Tissue Tightness, Tenderness Palpation Details guarded and tight plantar fascia bilaterally PT-OP-K Range of Motion Start: 08/24/21 09:51 Freq: Status: Active Protocol: Document 08/24/21 09:45 [facility] (Rec: 08/30/21 09:42 [facility] [id number]) Ankle and Foot Goniometric Range of Motion Ankle and Foot Right Dorsiflexion with Knee Flexed 2 Dorsiflexion with Knee Extended 2 Plantarflexion 6 Inversion 5 Eversion 4 Comments very poor limited ankle mobility Left Dorsiflexion with Knee Flexed 3 Dorsiflexion with Knee Extended 2 Plantarflexion 5 Inversion 5 Eversion 4 Comments very poor limited ankle mobility Ankle and Foot ROM Limitations ROM Limitations Soft Tissue Tightness, Contracture,Pain Comments pt is very limited in ankle and foot ROM, the scleroderma has restricted her joint ROM so much that she only has a few degrees in all planes for her ankle. I am able to mobilize her metatarsals with very limited ROM, tightness in the calf and and plantar fascia B also limits ROM PT-OP-Q Treatments Start: 08/30/21 14:15 Freq: Status: Active Protocol: Document 06/12/22 13:00 [facility] (Rec: 06/13/22 09:31 [facility] [id number]) Manual Therapy Treatment Soft Tissue Mobilization B patellar tendon Body Location B Mobilization Type Cross-Friction Intensity/Depth Moderate Body Position Sitting Comments Long sitting Extra time spend over R patellar tendon to allow for elevation durign knee flexion. I can breath better. 1 Body Location B anterior and posterior shins /feet Mobilization Type Myofascial Release Intensity/Depth Superficial Body Position Sitting Comments PROM was performed at the ankles and feet Joint Mobilizations MTPs, intertarsals, calcaneus on talus/navicular Joint B Direction AP, med/lat Grade II Body Position Sitting Comments long sitting Manual Techniques 2 Type manual stretching for the gastroc/soleus complex Body Location B Body Position Sitting Comments long sitting 1 Type PROM stretches were performed at B ankles and feet, manual stretching Body Location B PF/ DF, IV/EV Body Position Sitting Comments improving ankle ROM with manual stretches PT-OP-T Assessment and Plan Start: 08/24/21 09:51 Freq: Status: Active Protocol: Document 06/12/22 13:00 [facility] (Rec: 06/13/22 09:31 [facility] [id number]) Physical Therapy Assessment Assessment Summary Assessment Fay continues to present with thickened skin, blisters and skin irritation to her legs and feet. She continues to feel that PT and manual therapy work is helping her. Her ultrasound is today to test her cartoid artery. Pt stayed after PT today to do the Sci fit exercise machine Physical Therapy Plan Frequency and Duration Frequency of Treatment 2x/Week Duration of treatment (weeks) 12 Plan of Care Start Date 05/22/22 Plan of Care End Date 07/22/22 Therapeutic Interventions Therapeutic Interventions Balance Training,Gait Training ,Home Exercise Program,Joint Mobilizations,Manual Therapy, Patient/Caregiver Education, Self-Care/Home Management,Soft Tissue Mobilization, Therapeutic Exercises Next Visit Focus/Plan Next Note Type Treatment Note Next Visit Plan standing calf stretches with chair, seated ball rolls and shoulder blade retractions. Continue to work on pain relief in the neck and ROM of the foot and ankles
--- NOTE | 2022-06-18 14:30 | PT.OTN ---
Current Diagnoses Systemic sclerosis, unspecified (06/25/22) Unsteadiness on feet (06/25/22) Physical Therapy Treatment Note PT-OP-A Visit Information Start: 08/24/21 09:51 Freq: Status: Active Protocol: Document 06/18/22 13:09 N[facility] (Rec: 06/18/22 13:19 [facility] [id number]) Out-Patient Physical Therapy Visit Information Visit Information Visit Type Treatment Note Visit Start Time 13:05 Visit Stop Time 13:45 Total Visit Minutes 40 Visit Number 37 Number of [employer] Visits 1 Evaluation Information Evaluation Date 08/24/21 PT-OP-B Current Condition Start: 08/24/21 09:51 Freq: Status: Active Protocol: Document 08/24/21 09:45 [facility] (Rec: 08/24/21 09:56 [facility] [id number]) Current Condition History of Current Condition 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 She also notes that despite going through pulmonary rehab she still feels short of breath all the time. 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, PHM also includes encephalopathy, hair loss, diabetes, [place] in 2019 with 2 stents placed Prior Treatments and Tests Pt has recieved PT in the past for ankle and foot ROM, balance, gait training, MFR and manual therapy techniques to improve ankle and foot mobility Treatment Goals Patient/Caregiver Goals Pts goals include improving ankle and foot mobility and decreasing stiffness and pain PT-OP-C Subjective Start: 08/24/21 09:51 Freq: Status: Active Protocol: Document 06/18/22 13:09 NBM (Rec: 06/18/22 13:19 [facility] [id number]) OP-PT Subjective Patient Comments Patient Comments Fay reports her right arm hurts. She states she did not fall but caught herself and maybe hurt it then without realizing it. It's been hurting a few days now and she took advil to take the edge off. She does not think she can do the machine today. This pain zaps me. PT-OP-F Manual Assessment Start: 08/30/21 13:57 Freq: Status: Active Protocol: Document 08/24/21 09:45 [facility] (Rec: 08/30/21 14:01 [facility] [id number]) Manual Assessments Soft Tissue Assessment Soft Tissue Mobility Assessment scleraderma throughout the calf and plantar fascia making tissue mobililty very difficult. Pt responds well to MFR and manual stretching PT-OP-J Posture/Palpation/Skin Start: 08/24/21 09:51 Freq: Status: Active Protocol: Document 08/24/21 09:45 [facility] (Rec: 08/30/21 09:42 [facility] [id number]) Palpation Assessment Location plantar fascia Palpation Location bilateral plantar fascia Palpation Findings Soft Tissue Tightness, Tenderness Palpation Details guarded and tight plantar fascia bilaterally PT-OP-K Range of Motion Start: 08/24/21 09:51 Freq: Status: Active Protocol: Document 08/24/21 09:45 [facility] (Rec: 08/30/21 09:42 [facility] [id number]) Ankle and Foot Goniometric Range of Motion Ankle and Foot Right Dorsiflexion with Knee Flexed 2 Dorsiflexion with Knee Extended 2 Plantarflexion 6 Inversion 5 Eversion 4 Comments very poor limited ankle mobility Left Dorsiflexion with Knee Flexed 3 Dorsiflexion with Knee Extended 2 Plantarflexion 5 Inversion 5 Eversion 4 Comments very poor limited ankle mobility Ankle and Foot ROM Limitations ROM Limitations Soft Tissue Tightness, Contracture,Pain Comments pt is very limited in ankle and foot ROM, the scleroderma has restricted her joint ROM so much that she only has a few degrees in all planes for her ankle. I am able to mobilize her metatarsals with very limited ROM, tightness in the calf and and plantar fascia B also limits ROM PT-OP-Q Treatments Start: 08/30/21 14:15 Freq: Status: Active Protocol: Document 06/18/22 13:09 NB (Rec: 06/18/22 13:19 NB [id number]) Manual Therapy Treatment Soft Tissue Mobilization Upper, middle traps Body Location B Mobilization Type Cross-Friction,Rolling Intensity/Depth Moderate Body Position Sitting Comments cued slow breaths and worked on diaphragmatic breathing in sitting B patellar tendon Body Location B Mobilization Type Cross-Friction Intensity/Depth Moderate Body Position Sitting Comments Long sitting 1 Body Location B anterior and posterior shins /feet Mobilization Type Myofascial Release Intensity/Depth Superficial Body Position Sitting Comments PROM was performed at the ankles and feet Manual Techniques 2 Type manual stretching for the gastroc/soleus complex Body Location B Body Position Sitting Comments long sitting 1 Type PROM stretches were performed at B ankles and feet, manual stretching Body Location B PF/ DF, IV/EV Body Position Sitting Comments improving ankle ROM with manual stretches PT-OP-T Assessment and Plan Start: 08/24/21 09:51 Freq: Status: Active Protocol: Document 06/18/22 13:09 [facility] (Rec: 06/18/22 13:19 [facility] [id number]) Physical Therapy Assessment Goals 3 Impairment LE, foot and ankle pain rated 7/10 05/22/22- pain; pt feels her pain improving 6/10 [employer] Project Manager Goal (LTG) With manual therapy techniques , ROM exercises, stretches, and mobility exercises Fay has a reduction in pain by 2-3 numbers on the pain scale good progress LTG Duration 12 weeks 2 Impairment B Calf and plantar fascia tightness and pain limiting pts ability to walk Short Term Goal (STG) Fay is educated on stretches and manual techniques she can do at home to help with plantar fascia and calf tightness As of 11/15/21 Fay has been educated on stretches to work on at home to help with plantar fascia tightness and calf tightness Good progress STG Duration 4 weeks Senior Living Goal (LTG) Fay notes a overall reduction in tightness decreasing her pain with walking some progress LTG Duration 12 weeks 1 Impairment Poor ankle and foot ROM affecting balance and gait [employer] Operations Project Manager Goal (LTG) Fay is able to improve her ankle ROM by 5 degrees into DF to assist with gait and balance LTG Duration 12 weeks Assessment Summary Assessment Fay does not feel she can tolerate the recumbent stepper today due to the pain in her R elbow, which occurs when moved slightly. She plans to go to urgent care to address her elbow after therapy today. She continues to present with thickened skin on lower extremities and has a good feedback response to manual therapy today. Physical Therapy Plan Frequency and Duration Frequency of Treatment 2x/Week Duration of treatment (weeks) 12 Plan of Care Start Date 05/22/22 Plan of Care End Date 07/22/22 Therapeutic Interventions Therapeutic Interventions Balance Training,Gait Training ,Home Exercise Program,Joint Mobilizations,Manual Therapy, Patient/Caregiver Education, Self-Care/Home Management,Soft Tissue Mobilization, Therapeutic Exercises Next Visit Focus/Plan Next Note Type Treatment Note Next Visit Plan standing calf stretches with chair, seated ball rolls and shoulder blade retractions. Continue to work on pain relief in the neck and ROM of the foot and ankles
--- NOTE | 2022-06-21 14:49 | PT.OTN ---
Current Diagnoses Systemic sclerosis, unspecified (06/21/22) Unsteadiness on feet (06/21/22) Physical Therapy Treatment Note PT-OP-A Visit Information Start: 08/24/21 09:51 Freq: Status: Active Protocol: Document 06/21/22 14:45 [facility] (Rec: 06/21/22 14:48 [facility] [id number]) Out-Patient Physical Therapy Visit Information Visit Information Visit Type Treatment Note Visit Start Time 13:45 Visit Stop Time 14:30 Total Visit Minutes 45 Visit Number 38 Number of GROUND SURVEILLANCE SYSTEMS OPERATOR Visits 0 PT-OP-B Current Condition Start: 08/24/21 09:51 Freq: Status: Active Protocol: Document 08/24/21 09:45 [facility] (Rec: 08/24/21 09:56 [facility] [id number]) Current Condition History of Current Condition 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 She also notes that despite going through pulmonary rehab she still feels short of breath all the time. 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, PHM also includes encephalopathy, hair loss, diabetes, [place] in 2019 with 2 stents placed Prior Treatments and Tests Pt has recieved PT in the past for ankle and foot ROM, balance, gait training, MFR and manual therapy techniques to improve ankle and foot mobility Treatment Goals Patient/Caregiver Goals Pts goals include improving ankle and foot mobility and decreasing stiffness and pain PT-OP-C Subjective Start: 08/24/21 09:51 Freq: Status: Active Protocol: Document 06/21/22 14:45 [facility] (Rec: 06/21/22 14:48 [facility] [id number]) OP-PT Subjective Patient Comments Patient Comments Fay reports she is still really sore in her elbow from catching herself. She did get a xray and it was negative PT-OP-F Manual Assessment Start: 08/30/21 13:57 Freq: Status: Active Protocol: Document 08/24/21 09:45 [facility] (Rec: 08/30/21 14:01 [facility] [id number]) Manual Assessments Soft Tissue Assessment Soft Tissue Mobility Assessment scleraderma throughout the calf and plantar fascia making tissue mobililty very difficult. Pt responds well to MFR and manual stretching PT-OP-J Posture/Palpation/Skin Start: 08/24/21 09:51 Freq: Status: Active Protocol: Document 08/24/21 09:45 [facility] (Rec: 08/30/21 09:42 [facility] [id number]) Palpation Assessment Location plantar fascia Palpation Location bilateral plantar fascia Palpation Findings Soft Tissue Tightness, Tenderness Palpation Details guarded and tight plantar fascia bilaterally PT-OP-K Range of Motion Start: 08/24/21 09:51 Freq: Status: Active Protocol: Document 08/24/21 09:45 [facility] (Rec: 08/30/21 09:42 [facility] [id number]) Ankle and Foot Goniometric Range of Motion Ankle and Foot Right Dorsiflexion with Knee Flexed 2 Dorsiflexion with Knee Extended 2 Plantarflexion 6 Inversion 5 Eversion 4 Comments very poor limited ankle mobility Left Dorsiflexion with Knee Flexed 3 Dorsiflexion with Knee Extended 2 Plantarflexion 5 Inversion 5 Eversion 4 Comments very poor limited ankle mobility Ankle and Foot ROM Limitations ROM Limitations Soft Tissue Tightness, Contracture,Pain Comments pt is very limited in ankle and foot ROM, the scleroderma has restricted her joint ROM so much that she only has a few degrees in all planes for her ankle. I am able to mobilize her metatarsals with very limited ROM, tightness in the calf and and plantar fascia B also limits ROM PT-OP-Q Treatments Start: 08/30/21 14:15 Freq: Status: Active Protocol: Document 06/21/22 14:45 [facility] (Rec: 06/21/22 14:48 [facility] [id number]) Manual Therapy Treatment Soft Tissue Mobilization Upper, middle traps Body Location B Mobilization Type Cross-Friction,Rolling Intensity/Depth Moderate Body Position Sitting Comments cued slow breaths and worked on diaphragmatic breathing in sitting Joint Mobilizations MTPs, intertarsals, calcaneus on talus/navicular Joint B Direction AP, med/lat Grade II Body Position Sitting Comments long sitting Patella mobes Joint B Direction med/lat/sup/inf Grade II Body Position Sitting Comments Long sitting. Manual Techniques 2 Type manual stretching for the gastroc/soleus complex Body Location B Body Position Sitting Comments long sitting 1 Type PROM stretches were performed at B ankles and feet, manual stretching Body Location B PF/ DF, IV/EV Body Position Sitting Comments improving ankle ROM with manual stretches PT-OP-T Assessment and Plan Start: 08/24/21 09:51 Freq: Status: Active Protocol: Document 06/21/22 14:45 [facility] (Rec: 06/21/22 14:48 [facility] [id number]) Physical Therapy Assessment Assessment Summary Assessment Fay was still sore in her right elbow and didn't feel she could tolerate the biodex today. She continues to present with thickened skin and blisters on her feet and legs. She notes she feels improved circulation following manual therapy treatment. Physical Therapy Plan Frequency and Duration Frequency of Treatment 2x/Week Duration of treatment (weeks) 12 Plan of Care Start Date 05/22/22 Plan of Care End Date 07/22/22 Therapeutic Interventions Therapeutic Interventions Balance Training,Gait Training ,Home Exercise Program,Joint Mobilizations,Manual Therapy, Patient/Caregiver Education, Self-Care/Home Management,Soft Tissue Mobilization, Therapeutic Exercises Next Visit Focus/Plan Next Note Type Treatment Note Next Visit Plan standing calf stretches with chair, seated ball rolls and shoulder blade retractions. Continue to work on pain relief in the neck and ROM of the foot and ankles
--- NOTE | 2022-06-25 18:19 | PT.OTN ---
Current Diagnoses Systemic sclerosis, unspecified (06/25/22) Unsteadiness on feet (06/25/22) Physical Therapy Treatment Note PT-OP-A Visit Information Start: 08/24/21 09:51 Freq: Status: Active Protocol: Document 06/25/22 13:03 [facility] (Rec: 06/25/22 18:15 [facility] [id number]) Out-Patient Physical Therapy Visit Information Visit Information Visit Type Treatment Note Visit Start Time 13:00 Visit Stop Time 13:45 Total Visit Minutes 45 Visit Number 39 Number of INCOMING INSPECTOR Visits 1 PT-OP-B Current Condition Start: 08/24/21 09:51 Freq: Status: Active Protocol: Document 08/24/21 09:45 [facility] (Rec: 08/24/21 09:56 [facility] [id number]) Current Condition History of Current Condition 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 She also notes that despite going through pulmonary rehab she still feels short of breath all the time. 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, PHM also includes encephalopathy, hair loss, diabetes, [place] in 2019 with 2 stents placed Prior Treatments and Tests Pt has recieved PT in the past for ankle and foot ROM, balance, gait training, MFR and manual therapy techniques to improve ankle and foot mobility Treatment Goals Patient/Caregiver Goals Pts goals include improving ankle and foot mobility and decreasing stiffness and pain PT-OP-C Subjective Start: 08/24/21 09:51 Freq: Status: Active Protocol: Document 06/25/22 13:03 [facility] (Rec: 06/25/22 18:15 [facility] [id number]) OP-PT Subjective Patient Comments Patient Comments Fay reports her arm bone is still sore but is much better than it was. She wants to try the Sci-Fit today. Her shoes broke so she ordered a new pair through Medicare but they sent a smaller size (7.5 instead of 8), which she is wearing. Once they're on they 're not bad, but I feel like I don't walk as well in them. I feel like I'm walking like Elías Sher. She is planning to go to another shoe store to see what they have and if she can afford it. I'm really out of breath. Her left foot felt very sore a few days ago and her R foot had neuropathy and I broke down. She has been applying neosporin to her L foot and has an appt with the concrete mixer operator helper and foot doctor this week. PT-OP-F Manual Assessment Start: 08/30/21 13:57 Freq: Status: Active Protocol: Document 08/24/21 09:45 [facility] (Rec: 08/30/21 14:01 [facility] [id number]) Manual Assessments Soft Tissue Assessment Soft Tissue Mobility Assessment scleraderma throughout the calf and plantar fascia making tissue mobililty very difficult. Pt responds well to MFR and manual stretching PT-OP-J Posture/Palpation/Skin Start: 08/24/21 09:51 Freq: Status: Active Protocol: Document 08/24/21 09:45 [facility] (Rec: 08/30/21 09:42 [facility] [id number]) Palpation Assessment Location plantar fascia Palpation Location bilateral plantar fascia Palpation Findings Soft Tissue Tightness, Tenderness Palpation Details guarded and tight plantar fascia bilaterally PT-OP-K Range of Motion Start: 08/24/21 09:51 Freq: Status: Active Protocol: Document 08/24/21 09:45 [facility] (Rec: 08/30/21 09:42 [facility] [id number]) Ankle and Foot Goniometric Range of Motion Ankle and Foot Right Dorsiflexion with Knee Flexed 2 Dorsiflexion with Knee Extended 2 Plantarflexion 6 Inversion 5 Eversion 4 Comments very poor limited ankle mobility Left Dorsiflexion with Knee Flexed 3 Dorsiflexion with Knee Extended 2 Plantarflexion 5 Inversion 5 Eversion 4 Comments very poor limited ankle mobility Ankle and Foot ROM Limitations ROM Limitations Soft Tissue Tightness, Contracture,Pain Comments pt is very limited in ankle and foot ROM, the scleroderma has restricted her joint ROM so much that she only has a few degrees in all planes for her ankle. I am able to mobilize her metatarsals with very limited ROM, tightness in the calf and and plantar fascia B also limits ROM PT-OP-Q Treatments Start: 08/30/21 14:15 Freq: Status: Active Protocol: Document 06/25/22 13:03 [facility] (Rec: 06/25/22 18:15 [facility] [id number]) Cardio Equipment Recumbent Stepper (Sci-Fit) Duration (Minutes) 15 Other after treatment, no RUE d/t pain Therapeutic Exercises Supine Exercises seated foot rolls on soft golf ball Supine Exercise Name HEP review - discussed that pt does these regularly Sitting Exercises diaphragmatic breathing Reps/Minutes x 4 min Comments encouraging Fay to inhale through her nose Manual Therapy Treatment Soft Tissue Mobilization B patellar tendon Body Location B Mobilization Type Cross-Friction Intensity/Depth Moderate Body Position Sitting Comments Long sitting 1 Body Location B anterior and posterior shins /feet Mobilization Type Myofascial Release Intensity/Depth Superficial Body Position Sitting Comments PROM was performed at the ankles and feet Joint Mobilizations MTPs, intertarsals, calcaneus on talus/navicular Joint B Direction AP, med/lat Grade II Body Position Sitting Comments long sitting Manual Techniques 2 Type manual stretching for the gastroc/soleus complex Body Location B Body Position Sitting Comments long sitting 1 Type PROM stretches were performed at B ankles and feet, manual stretching Body Location B PF/ DF, IV/EV Body Position Sitting Comments improving ankle ROM with manual stretches Self-Care/Home Management Treatment Education Patient Education Home Exercise Program Other Education HEP review for seated foot rolls and diaphragmatic breathin. PT-OP-T Assessment and Plan Start: 08/24/21 09:51 Freq: Status: Active Protocol: Document 06/25/22 13:03 [facility] (Rec: 06/25/22 18:15 [facility] [id number]) Physical Therapy Assessment Goals 3 Impairment LE, foot and ankle pain rated 7/10 05/22/22- pain; pt feels her pain improving 6/10 Jail Goal (LTG) With manual therapy techniques , ROM exercises, stretches, and mobility exercises Fay has a reduction in pain by 2-3 numbers on the pain scale good progress LTG Duration 12 weeks 2 Impairment B Calf and plantar fascia tightness and pain limiting pts ability to walk Short Term Goal (STG) Fay is educated on stretches and manual techniques she can do at home to help with plantar fascia and calf tightness As of 11/15/21 Fay has been educated on stretches to work on at home to help with plantar fascia tightness and calf tightness Good progress STG Duration 4 weeks Jail Goal (LTG) Fay notes a overall reduction in tightness decreasing her pain with walking some progress LTG Duration 12 weeks 1 Impairment Poor ankle and foot ROM affecting balance and gait Jail Goal (LTG) Fay is able to improve her ankle ROM by 5 degrees into DF to assist with gait and balance LTG Duration 12 weeks Assessment Summary Assessment Fay was able to tolerate Sci- Fit after treatment today without use of RUE. She continues to present with thickened skin and blisters on her feet and legs and has more tenderness to small area on plantar aspect of foot - she is using neosporin and sees concrete mixer operator helper and foot doctor this week. Her shoes broke and new ones are a half size too small. She has a good feedback response to manual therapy today, particulary PF/ DF/IN/EV ankle mobility and stretching - reports I can breathe better and It feels so good to have it moved since it's stuck. Physical Therapy Plan Frequency and Duration Frequency of Treatment 2x/Week Duration of treatment (weeks) 12 Plan of Care Start Date 05/22/22 Plan of Care End Date 07/22/22 Therapeutic Interventions Therapeutic Interventions Balance Training,Gait Training ,Home Exercise Program,Joint Mobilizations,Manual Therapy, Patient/Caregiver Education, Self-Care/Home Management,Soft Tissue Mobilization, Therapeutic Exercises Next Visit Focus/Plan Next Note Type Treatment Note Next Visit Plan standing calf stretches with chair, seated ball rolls and shoulder blade retractions. Continue to work on pain relief in the neck and ROM of the foot and ankles
--- NOTE | 2022-06-28 18:24 | PT.OTN ---
Current Diagnoses Systemic sclerosis, unspecified (06/28/22) Unsteadiness on feet (06/28/22) Physical Therapy Treatment Note PT-OP-A Visit Information Start: 08/24/21 09:51 Freq: Status: Active Protocol: Document 07/02/22 13:21 [facility] (Rec: 07/02/22 13:22 [facility] [id number]) Out-Patient Physical Therapy Visit Information Visit Information Visit Type Other Visit Note Spoke w/ pt re: missed 1pm appointment - she states she left a voicemail today to cancel due to an upset stomach . Confirmed next appt w/ PT Nidhi is Komal 07/05 at 2:30p. PT-OP-B Current Condition Start: 08/24/21 09:51 Freq: Status: Active Protocol: Document 08/24/21 09:45 [facility] (Rec: 08/24/21 09:56 [facility] [id number]) Current Condition History of Current Condition 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 She also notes that despite going through pulmonary rehab she still feels short of breath all the time. 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, PHM also includes encephalopathy, hair loss, diabetes, [place] in 2019 with 2 stents placed Prior Treatments and Tests Pt has recieved PT in the past for ankle and foot ROM, balance, gait training, MFR and manual therapy techniques to improve ankle and foot mobility Treatment Goals Patient/Caregiver Goals Pts goals include improving ankle and foot mobility and decreasing stiffness and pain PT-OP-C Subjective Start: 08/24/21 09:51 Freq: Status: Active Protocol: Document 06/28/22 13:50 [facility] (Rec: 06/28/22 13:57 [facility] [id number]) OP-PT Subjective Patient Comments Patient Comments Fay notes she got new shoes ordered through [employer] but they are a half size too small . Medicare wont let her return them. PT-OP-F Manual Assessment Start: 08/30/21 13:57 Freq: Status: Active Protocol: Document 08/24/21 09:45 [facility] (Rec: 08/30/21 14:01 [facility] [id number]) Manual Assessments Soft Tissue Assessment Soft Tissue Mobility Assessment scleraderma throughout the calf and plantar fascia making tissue mobililty very difficult. Pt responds well to MFR and manual stretching PT-OP-J Posture/Palpation/Skin Start: 08/24/21 09:51 Freq: Status: Active Protocol: Document 08/24/21 09:45 [facility] (Rec: 08/30/21 09:42 [facility] [id number]) Palpation Assessment Location plantar fascia Palpation Location bilateral plantar fascia Palpation Findings Soft Tissue Tightness, Tenderness Palpation Details guarded and tight plantar fascia bilaterally PT-OP-K Range of Motion Start: 08/24/21 09:51 Freq: Status: Active Protocol: Document 08/24/21 09:45 [facility] (Rec: 08/30/21 09:42 [facility] [id number]) Ankle and Foot Goniometric Range of Motion Ankle and Foot Right Dorsiflexion with Knee Flexed 2 Dorsiflexion with Knee Extended 2 Plantarflexion 6 Inversion 5 Eversion 4 Comments very poor limited ankle mobility Left Dorsiflexion with Knee Flexed 3 Dorsiflexion with Knee Extended 2 Plantarflexion 5 Inversion 5 Eversion 4 Comments very poor limited ankle mobility Ankle and Foot ROM Limitations ROM Limitations Soft Tissue Tightness, Contracture,Pain Comments pt is very limited in ankle and foot ROM, the scleroderma has restricted her joint ROM so much that she only has a few degrees in all planes for her ankle. I am able to mobilize her metatarsals with very limited ROM, tightness in the calf and and plantar fascia B also limits ROM PT-OP-Q Treatments Start: 08/30/21 14:15 Freq: Status: Active Protocol: Document 06/25/22 13:03 [facility] (Rec: 06/25/22 18:15 [facility] [id number]) Cardio Equipment Recumbent Stepper (Sci-Fit) Duration (Minutes) 15 Other after treatment, no RUE d/t pain Therapeutic Exercises Supine Exercises seated foot rolls on soft golf ball Supine Exercise Name HEP review - discussed that pt does these regularly Sitting Exercises diaphragmatic breathing Reps/Minutes x 4 min Comments encouraging Fay to inhale through her nose Manual Therapy Treatment Soft Tissue Mobilization B patellar tendon Body Location B Mobilization Type Cross-Friction Intensity/Depth Moderate Body Position Sitting Comments Long sitting 1 Body Location B anterior and posterior shins /feet Mobilization Type Myofascial Release Intensity/Depth Superficial Body Position Sitting Comments PROM was performed at the ankles and feet Joint Mobilizations MTPs, intertarsals, calcaneus on talus/navicular Joint B Direction AP, med/lat Grade II Body Position Sitting Comments long sitting Manual Techniques 2 Type manual stretching for the gastroc/soleus complex Body Location B Body Position Sitting Comments long sitting 1 Type PROM stretches were performed at B ankles and feet, manual stretching Body Location B PF/ DF, IV/EV Body Position Sitting Comments improving ankle ROM with manual stretches Self-Care/Home Management Treatment Education Patient Education Home Exercise Program Other Education HEP review for seated foot rolls and diaphragmatic breathin. PT-OP-T Assessment and Plan Start: 08/24/21 09:51 Freq: Status: Active Protocol: Document 06/28/22 18:23 [facility] (Rec: 07/03/22 18:24 [facility] [id number]) Physical Therapy Assessment Assessment Summary Assessment Fay was able to tolerate Sci- Fit after treatment today without use of RUE. She continues to present with thickened skin and blisters on her feet and legs and has more tenderness to small area on plantar aspect of foot - she is using neosporin and sees salesperson new cars and foot doctor this week. Her shoes broke and new ones are a half size too small. She has a good feedback response to manual therapy today, particulary PF/ DF/IN/EV ankle mobility and stretching - reports I can breathe better and It feels so good to have it moved since it's stuck. Physical Therapy Plan Frequency and Duration Frequency of Treatment 2x/Week Duration of treatment (weeks) 12 Plan of Care Start Date 05/22/22 Plan of Care End Date 07/22/22 Next Visit Focus/Plan Next Note Type Treatment Note Next Visit Plan standing calf stretches with chair, seated ball rolls and shoulder blade retractions. Continue to work on pain relief in the neck and ROM of the foot and ankles
--- NOTE | 2022-07-02 13:19 | PT-OP ANOTE ---
Spoke with pt regarding her missed 1:00pm appointment - she states she left a voicemail today to cancel due to an upset stomach. Confirmed next appointment w/ PT Nidhi is 07/05 at 2:30p.
--- NOTE | 2022-07-05 17:49 | PT.OTN ---
Current Diagnoses Systemic sclerosis, unspecified (07/05/22) Unsteadiness on feet (07/05/22) Physical Therapy Treatment Note PT-OP-A Visit Information Start: 08/24/21 09:51 Freq: Status: Active Protocol: Document 07/05/22 14:40 [facility] (Rec: 07/05/22 15:24 [facility] [id number]) Out-Patient Physical Therapy Visit Information Visit Information Visit Type Treatment Note Visit Start Time 13:50 Visit Stop Time 14:30 Total Visit Minutes 40 Visit Number 41 PT-OP-B Current Condition Start: 08/24/21 09:51 Freq: Status: Active Protocol: Document 08/24/21 09:45 [facility] (Rec: 08/24/21 09:56 [facility] [id number]) Current Condition History of Current Condition 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 She also notes that despite going through pulmonary rehab she still feels short of breath all the time. 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, PHM also includes encephalopathy, hair loss, diabetes, [place] in 2019 with 2 stents placed Prior Treatments and Tests Pt has recieved PT in the past for ankle and foot ROM, balance, gait training, MFR and manual therapy techniques to improve ankle and foot mobility Treatment Goals Patient/Caregiver Goals Pts goals include improving ankle and foot mobility and decreasing stiffness and pain PT-OP-C Subjective Start: 08/24/21 09:51 Freq: Status: Active Protocol: Document 07/05/22 14:35 [facility] (Rec: 07/05/22 17:49 [facility] [id number]) OP-PT Subjective Patient Comments Patient Comments Fay is wearing a new pair of shoes and they are the fuzzy crocs. She reports they feel really good on her feet PT-OP-F Manual Assessment Start: 08/30/21 13:57 Freq: Status: Active Protocol: Document 08/24/21 09:45 [facility] (Rec: 08/30/21 14:01 [facility] [id number]) Manual Assessments Soft Tissue Assessment Soft Tissue Mobility Assessment scleraderma throughout the calf and plantar fascia making tissue mobililty very difficult. Pt responds well to MFR and manual stretching PT-OP-J Posture/Palpation/Skin Start: 08/24/21 09:51 Freq: Status: Active Protocol: Document 08/24/21 09:45 [facility] (Rec: 08/30/21 09:42 [facility] [id number]) Palpation Assessment Location plantar fascia Palpation Location bilateral plantar fascia Palpation Findings Soft Tissue Tightness, Tenderness Palpation Details guarded and tight plantar fascia bilaterally PT-OP-K Range of Motion Start: 08/24/21 09:51 Freq: Status: Active Protocol: Document 08/24/21 09:45 [facility] (Rec: 08/30/21 09:42 [facility] [id number]) Ankle and Foot Goniometric Range of Motion Ankle and Foot Right Dorsiflexion with Knee Flexed 2 Dorsiflexion with Knee Extended 2 Plantarflexion 6 Inversion 5 Eversion 4 Comments very poor limited ankle mobility Left Dorsiflexion with Knee Flexed 3 Dorsiflexion with Knee Extended 2 Plantarflexion 5 Inversion 5 Eversion 4 Comments very poor limited ankle mobility Ankle and Foot ROM Limitations ROM Limitations Soft Tissue Tightness, Contracture,Pain Comments pt is very limited in ankle and foot ROM, the scleroderma has restricted her joint ROM so much that she only has a few degrees in all planes for her ankle. I am able to mobilize her metatarsals with very limited ROM, tightness in the calf and and plantar fascia B also limits ROM PT-OP-Q Treatments Start: 08/30/21 14:15 Freq: Status: Active Protocol: Document 07/05/22 14:35 [facility] (Rec: 07/05/22 17:49 [facility] [id number]) Manual Therapy Treatment Soft Tissue Mobilization B patellar tendon Body Location B Mobilization Type Cross-Friction Intensity/Depth Moderate Body Position Sitting Comments Long sitting 1 Body Location B anterior and posterior shins /feet Mobilization Type Myofascial Release Intensity/Depth Superficial Body Position Sitting Comments PROM was performed at the ankles and feet Joint Mobilizations MTPs, intertarsals, calcaneus on talus/navicular Joint B Direction AP, med/lat Grade II Body Position Sitting Comments long sitting Manual Techniques 2 Type manual stretching for the gastroc/soleus complex Body Location B Body Position Sitting Comments long sitting 1 Type PROM stretches were performed at B ankles and feet, manual stretching Body Location B PF/ DF, IV/EV Body Position Sitting Comments improving ankle ROM with manual stretches PT-OP-T Assessment and Plan Start: 08/24/21 09:51 Freq: Status: Active Protocol: Document 07/05/22 14:35 [facility] (Rec: 07/05/22 17:49 [facility] [id number]) Physical Therapy Assessment Assessment Summary Assessment Fay was prescribed a steroid cream for her legs however she hadn't started it yet as of today. She notes she feels a great amount of pain in her anterior shins and is not sure if its bone pain of from the sclerosis. Physical Therapy Plan Frequency and Duration Frequency of Treatment 2x/Week Duration of treatment (weeks) 12 Plan of Care Start Date 05/22/22 Plan of Care End Date 07/22/22 Therapeutic Interventions Therapeutic Interventions Balance Training,Gait Training ,Home Exercise Program,Joint Mobilizations,Manual Therapy, Patient/Caregiver Education, Self-Care/Home Management,Soft Tissue Mobilization, Therapeutic Exercises Next Visit Focus/Plan Next Note Type Treatment Note Next Visit Plan standing calf stretches with chair, seated ball rolls and shoulder blade retractions. Continue to work on pain relief in the neck and ROM of the foot and ankles
--- NOTE | 2022-07-09 18:17 | PT.OTN ---
Current Diagnoses Systemic sclerosis, unspecified (07/09/22) Unsteadiness on feet (07/09/22) Physical Therapy Treatment Note PT-OP-A Visit Information Start: 08/24/21 09:51 Freq: Status: Active Protocol: Document 07/09/22 13:09 [facility] (Rec: 07/09/22 13:20 [facility] [id number]) Out-Patient Physical Therapy Visit Information Visit Information Visit Type Treatment Note Visit Note Pt late Visit Start Time 13:14 Visit Stop Time 13:48 Total Visit Minutes 34 Visit Number 42 Number of STEAMBLASTER Visits 1 Evaluation Information Evaluation Date 08/24/21 PT-OP-B Current Condition Start: 08/24/21 09:51 Freq: Status: Active Protocol: Document 08/24/21 09:45 [facility] (Rec: 08/24/21 09:56 [facility] [id number]) Current Condition History of Current Condition 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 She also notes that despite going through pulmonary rehab she still feels short of breath all the time. 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, PHM also includes encephalopathy, hair loss, diabetes, [place] in 2019 with 2 stents placed Prior Treatments and Tests Pt has recieved PT in the past for ankle and foot ROM, balance, gait training, MFR and manual therapy techniques to improve ankle and foot mobility Treatment Goals Patient/Caregiver Goals Pts goals include improving ankle and foot mobility and decreasing stiffness and pain PT-OP-C Subjective Start: 08/24/21 09:51 Freq: Status: Active Protocol: Document 07/09/22 13:09 [facility] (Rec: 07/09/22 13:20 [facility] [id number]) OP-PT Subjective Patient Comments Patient Comments Pt is wearing the new crocs which are very comfortable. She has not started the steroid cream for her feet because sometimes I am a little rebelious and I find myself to be high-maintenance. Pain in R elbow returned last night and she took tylenol 500mg today which really helps. PT-OP-F Manual Assessment Start: 08/30/21 13:57 Freq: Status: Active Protocol: Document 08/24/21 09:45 [facility] (Rec: 08/30/21 14:01 [facility] [id number]) Manual Assessments Soft Tissue Assessment Soft Tissue Mobility Assessment scleraderma throughout the calf and plantar fascia making tissue mobililty very difficult. Pt responds well to MFR and manual stretching PT-OP-J Posture/Palpation/Skin Start: 08/24/21 09:51 Freq: Status: Active Protocol: Document 08/24/21 09:45 [facility] (Rec: 08/30/21 09:42 [facility] [id number]) Palpation Assessment Location plantar fascia Palpation Location bilateral plantar fascia Palpation Findings Soft Tissue Tightness, Tenderness Palpation Details guarded and tight plantar fascia bilaterally PT-OP-K Range of Motion Start: 08/24/21 09:51 Freq: Status: Active Protocol: Document 08/24/21 09:45 [facility] (Rec: 08/30/21 09:42 [facility] [id number]) Ankle and Foot Goniometric Range of Motion Ankle and Foot Right Dorsiflexion with Knee Flexed 2 Dorsiflexion with Knee Extended 2 Plantarflexion 6 Inversion 5 Eversion 4 Comments very poor limited ankle mobility Left Dorsiflexion with Knee Flexed 3 Dorsiflexion with Knee Extended 2 Plantarflexion 5 Inversion 5 Eversion 4 Comments very poor limited ankle mobility Ankle and Foot ROM Limitations ROM Limitations Soft Tissue Tightness, Contracture,Pain Comments pt is very limited in ankle and foot ROM, the scleroderma has restricted her joint ROM so much that she only has a few degrees in all planes for her ankle. I am able to mobilize her metatarsals with very limited ROM, tightness in the calf and and plantar fascia B also limits ROM PT-OP-Q Treatments Start: 08/30/21 14:15 Freq: Status: Active Protocol: Document 07/09/22 13:09 [facility] (Rec: 07/09/22 13:20 [facility] [id number]) Manual Therapy Treatment Soft Tissue Mobilization B patellar tendon Body Location B Mobilization Type Cross-Friction Intensity/Depth Moderate Body Position Sitting Comments Long sitting 1 Body Location B anterior and posterior shins /feet Mobilization Type Myofascial Release Intensity/Depth Superficial Body Position Sitting Comments PROM was performed at the ankles and feet Joint Mobilizations MTPs, intertarsals, calcaneus on talus/navicular Joint B Direction AP, med/lat Grade II Body Position Sitting Comments long sitting Patella mobes Joint B Direction med/lat/sup/inf Grade II Body Position Sitting Comments Long sitting. Self-Care/Home Management Treatment Education Patient Education Pain Management,Safety Other Education Pt encouraged to apply prescribed cream for thickened skin on feet - states she will tonight. PT-OP-T Assessment and Plan Start: 08/24/21 09:51 Freq: Status: Active Protocol: Document 07/09/22 13:09 [facility] (Rec: 07/09/22 13:20 [facility] [id number]) Physical Therapy Assessment Goals 3 Impairment LE, foot and ankle pain rated 7/10 05/22/22- pain; pt feels her pain improving 6/10 Vegetable Vendor Goal (LTG) With manual therapy techniques , ROM exercises, stretches, and mobility exercises Fay has a reduction in pain by 2-3 numbers on the pain scale good progress LTG Duration 12 weeks 2 Impairment B Calf and plantar fascia tightness and pain limiting pts ability to walk Short Term Goal (STG) Fay is educated on stretches and manual techniques she can do at home to help with plantar fascia and calf tightness As of 11/15/21 Fay has been educated on stretches to work on at home to help with plantar fascia tightness and calf tightness Good progress STG Duration 4 weeks Vegetable Vendor Goal (LTG) Fay notes a overall reduction in tightness decreasing her pain with walking some progress LTG Duration 12 weeks 1 Impairment Poor ankle and foot ROM affecting balance and gait Shelter Goal (LTG) Fay is able to improve her ankle ROM by 5 degrees into DF to assist with gait and balance LTG Duration 12 weeks Assessment Summary Assessment Fay's wound on plantar aspect of L foot at base 1st metatarsal is continuing to heal but a small wound at base of 5th metatarsal was noted and pt informed. Pt encouraged to apply steroid cream to feet for thickened skin and plans to do so today. She has a good feedback response to manual therapy, particularly at knees. Pt had a low blood sugar alert and was provided juice and a chocolate, and was unable to stay after treatment to use stepper due to ongoing low blood sugar and medicine in car. Pt was escorted to car after treatment by PT Aide. Physical Therapy Plan Frequency and Duration Frequency of Treatment 2x/Week Duration of treatment (weeks) 12 Plan of Care Start Date 05/22/22 Plan of Care End Date 07/22/22 Therapeutic Interventions Therapeutic Interventions Balance Training,Gait Training ,Home Exercise Program,Joint Mobilizations,Manual Therapy, Patient/Caregiver Education, Self-Care/Home Management,Soft Tissue Mobilization, Therapeutic Exercises Next Visit Focus/Plan Next Note Type Treatment Note Next Visit Plan standing calf stretches with chair, seated ball rolls and shoulder blade retractions. Continue to work on pain relief in the neck and ROM of the foot and ankles
--- NOTE | 2022-07-17 15:11 | PT.OTN ---
Current Diagnoses Systemic sclerosis, unspecified (07/17/22) Unsteadiness on feet (07/17/22) Physical Therapy Treatment Note PT-OP-A Visit Information Start: 08/24/21 09:51 Freq: Status: Active Protocol: Document 07/17/22 13:55 [facility] (Rec: 07/17/22 14:42 [facility] [id number]) Out-Patient Physical Therapy Visit Information Visit Information Visit Type Treatment Note Visit Start Time 01:35 Visit Stop Time 14:35 Total Visit Minutes 45 Visit Number 43 Number of LEAF CONDITIONER Visits 0 PT-OP-B Current Condition Start: 08/24/21 09:51 Freq: Status: Active Protocol: Document 08/24/21 09:45 [facility] (Rec: 08/24/21 09:56 [facility] [id number]) Current Condition History of Current Condition 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 She also notes that despite going through pulmonary rehab she still feels short of breath all the time. 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, PHM also includes encephalopathy, hair loss, diabetes, [place] in 2019 with 2 stents placed Prior Treatments and Tests Pt has recieved PT in the past for ankle and foot ROM, balance, gait training, MFR and manual therapy techniques to improve ankle and foot mobility Treatment Goals Patient/Caregiver Goals Pts goals include improving ankle and foot mobility and decreasing stiffness and pain PT-OP-C Subjective Start: 08/24/21 09:51 Freq: Status: Active Protocol: Document 07/17/22 13:55 [facility] (Rec: 07/17/22 15:10 [facility] [id number]) OP-PT Subjective Patient Comments Patient Comments Fay reports she is feeling more dizzy again today. She has a appt with her cardiolgist tomorrow in [place] PT-OP-F Manual Assessment Start: 08/30/21 13:57 Freq: Status: Active Protocol: Document 08/24/21 09:45 [facility] (Rec: 08/30/21 14:01 [facility] [id number]) Manual Assessments Soft Tissue Assessment Soft Tissue Mobility Assessment scleraderma throughout the calf and plantar fascia making tissue mobililty very difficult. Pt responds well to MFR and manual stretching PT-OP-J Posture/Palpation/Skin Start: 08/24/21 09:51 Freq: Status: Active Protocol: Document 08/24/21 09:45 [facility] (Rec: 08/30/21 09:42 [facility] [id number]) Palpation Assessment Location plantar fascia Palpation Location bilateral plantar fascia Palpation Findings Soft Tissue Tightness, Tenderness Palpation Details guarded and tight plantar fascia bilaterally PT-OP-K Range of Motion Start: 08/24/21 09:51 Freq: Status: Active Protocol: Document 08/24/21 09:45 [facility] (Rec: 08/30/21 09:42 [facility] [id number]) Ankle and Foot Goniometric Range of Motion Ankle and Foot Right Dorsiflexion with Knee Flexed 2 Dorsiflexion with Knee Extended 2 Plantarflexion 6 Inversion 5 Eversion 4 Comments very poor limited ankle mobility Left Dorsiflexion with Knee Flexed 3 Dorsiflexion with Knee Extended 2 Plantarflexion 5 Inversion 5 Eversion 4 Comments very poor limited ankle mobility Ankle and Foot ROM Limitations ROM Limitations Soft Tissue Tightness, Contracture,Pain Comments pt is very limited in ankle and foot ROM, the scleroderma has restricted her joint ROM so much that she only has a few degrees in all planes for her ankle. I am able to mobilize her metatarsals with very limited ROM, tightness in the calf and and plantar fascia B also limits ROM PT-OP-Q Treatments Start: 08/30/21 14:15 Freq: Status: Active Protocol: Document 07/17/22 13:55 [facility] (Rec: 07/17/22 15:10 [facility] [id number]) Manual Therapy Treatment Soft Tissue Mobilization B patellar tendon Body Location B Mobilization Type Cross-Friction Intensity/Depth Moderate Body Position Sitting Comments Long sitting 1 Body Location B anterior and posterior shins /feet Mobilization Type Myofascial Release Intensity/Depth Superficial Body Position Sitting Comments PROM was performed at the ankles and feet Joint Mobilizations thoracic spine Joint PA glides in sitting Direction PA Grade II Body Position Sitting Comments pt had good tolerance today for seated thoracic mobilizations, worked on deep breaths during throacic mobilizations Patella mobes Joint B Direction med/lat/sup/inf Grade II Body Position Sitting Comments Long sitting. Manual Techniques 2 Type manual stretching for the gastroc/soleus complex Body Location B Body Position Sitting Comments long sitting 1 Type PROM stretches were performed at B ankles and feet, manual stretching Body Location B PF/ DF, IV/EV Body Position Sitting Comments improving ankle ROM with manual stretches PT-OP-T Assessment and Plan Start: 08/24/21 09:51 Freq: Status: Active Protocol: Document 07/17/22 13:55 [facility] (Rec: 07/17/22 15:10 [facility] [id number]) Physical Therapy Assessment Assessment Summary Assessment Fay was able to stay and ride the sci fit x 20 min after treatment. She continues to show wounds on the bottom of her feet and is feeling tightness and pain in her legs . She notes PT treatments really help her feel more mobile. She notes increased blood flow. She will report on her MD appt after tomorrow. Physical Therapy Plan Frequency and Duration Frequency of Treatment 2x/Week Duration of treatment (weeks) 12 Plan of Care Start Date 05/22/22 Plan of Care End Date 07/22/22 Therapeutic Interventions Therapeutic Interventions Balance Training,Gait Training ,Home Exercise Program,Joint Mobilizations,Manual Therapy, Patient/Caregiver Education, Self-Care/Home Management,Soft Tissue Mobilization, Therapeutic Exercises Next Visit Focus/Plan Next Note Type Progress Note Next Visit Plan Tests and measures next visit for MI to
--- NOTE | 2022-07-19 17:37 | PT.OPPOC ---
Physical, Occupational & Speech Therapy At [facility] Current Diagnoses Systemic sclerosis, unspecified (07/19/22) Unsteadiness on feet (07/19/22) Visit Care Team Role Provider Type Timur Schwartz MD Attending Provider Physician Family Provider Primary Care Provider Referring Provider Specialty: Internal Medicine Address: [address] [place] [address], [facility] Email: [email or web address] Plan Of Care PT-OP-T Assessment and Plan Start: 08/24/21 09:51 Freq: Status: Active Protocol: Document 07/19/22 13:48 [facility] (Rec: 07/19/22 17:34 [facility] [id number]) Physical Therapy Assessment Goals 3 Impairment LE, foot and ankle pain rated 7/10 07/19/22- pain; pt feels her pain improving 5/10 Alf Goal (LTG) With manual therapy techniques , ROM exercises, stretches, and mobility exercises Fay has a reduction in pain by 2-3 numbers on the pain scale good progress LTG Duration 12 weeks 2 Impairment B Calf and plantar fascia tightness and pain limiting pts ability to walk Short Term Goal (STG) Fay is educated on stretches and manual techniques she can do at home to help with plantar fascia and calf tightness As of 11/15/21 Fay has been educated on stretches to work on at home to help with plantar fascia tightness and calf tightness Good progress STG Duration 4 weeks Alf Goal (LTG) Fay notes a overall reduction in tightness decreasing her pain with walking some progress LTG Duration 12 weeks 1 Impairment Poor ankle and foot ROM affecting balance and gait Structural Drafter Goal (LTG) Fay is able to improve her ankle ROM by 5 degrees into DF to assist with gait and balance No [place] [facility] change with ankle ROM LTG Duration 12 weeks Assessment Summary Assessment trial of ultrasound today on the plantar aspect of the right foot prior to MFR techniques just to see how Fay would tolerate this and if it would help with tissue mobility following. The right side only was attempted and this did seem to help with ROM following. Fay will assess as to how she felt following treatment today as to if she would like to try additional ultrasound treatments. Fay would benefit from continued PT treatments to help with tissue mobility. Physical Therapy Plan Frequency and Duration Frequency of Treatment 2x/Week Duration of treatment (weeks) 12 Plan of Care Start Date 07/19/22 Plan of Care End Date 10/11/22 Therapeutic Interventions Therapeutic Interventions Balance Training,Gait Training ,Home Exercise Program,Joint Mobilizations,Manual Therapy, Patient/Caregiver Education, Self-Care/Home Management,Soft Tissue Mobilization, Therapeutic Exercises Next Visit Focus/Plan Next Note Type Treatment Note Next Visit Plan Assess how Fay did with the ultrasound on the plantar aspect of her feet. [employer] biodex or sci fit following manual work. Plan of Care Dates Plan of Care Start Date 07/19/22 Plan of Care End Date 10/11/22 Electronically Signed by: Nidhi Villanueva, PT 07/19/22 [id number] If you are in agreement with this Plan of Care, please return a signed and dated copy. I have reviewed this Plan of Care and certify that the skilled therapy services above are required to meet the patient?s needs. Physician Signature Date Printed Name and Credentials Clinical Instructor Signature Printed Name and Credentials
--- NOTE | 2022-07-19 17:38 | PT.OTN ---
Current Diagnoses Systemic sclerosis, unspecified (07/19/22) Unsteadiness on feet (07/19/22) Physical Therapy Treatment Note PT-OP-A Visit Information Start: 08/24/21 09:51 Freq: Status: Active Protocol: Document 07/19/22 13:48 [facility] (Rec: 07/19/22 14:35 [facility] [id number]) Out-Patient Physical Therapy Visit Information Visit Information Visit Type Progress Note Visit Start Time 13:45 Visit Stop Time 14:30 Total Visit Minutes 45 Visit Number 44 Number of PERFORMANCE IMPROVEMENT COORDINATOR Visits 0 PT-OP-B Current Condition Start: 08/24/21 09:51 Freq: Status: Active Protocol: Document 08/24/21 09:45 [facility] (Rec: 08/24/21 09:56 [facility] [id number]) Current Condition History of Current Condition 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 She also notes that despite going through pulmonary rehab she still feels short of breath all the time. 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, PHM also includes encephalopathy, hair loss, diabetes, [place] in 2019 with 2 stents placed Prior Treatments and Tests Pt has recieved PT in the past for ankle and foot ROM, balance, gait training, MFR and manual therapy techniques to improve ankle and foot mobility Treatment Goals Patient/Caregiver Goals Pts goals include improving ankle and foot mobility and decreasing stiffness and pain PT-OP-C Subjective Start: 08/24/21 09:51 Freq: Status: Active Protocol: Document 07/19/22 13:48 [facility] (Rec: 07/19/22 17:34 [facility] [id number]) OP-PT Subjective Patient Comments Patient Comments Fay reports her cardiologst appt is actually next week not yesterday like she had thought. She feels like she is forgetting things. PT-OP-F Manual Assessment Start: 08/30/21 13:57 Freq: Status: Active Protocol: Document 08/24/21 09:45 [facility] (Rec: 08/30/21 14:01 [facility] [id number]) Manual Assessments Soft Tissue Assessment Soft Tissue Mobility Assessment scleraderma throughout the calf and plantar fascia making tissue mobililty very difficult. Pt responds well to MFR and manual stretching PT-OP-J Posture/Palpation/Skin Start: 08/24/21 09:51 Freq: Status: Active Protocol: Document 08/24/21 09:45 [facility] (Rec: 08/30/21 09:42 [facility] [id number]) Palpation Assessment Location plantar fascia Palpation Location bilateral plantar fascia Palpation Findings Soft Tissue Tightness, Tenderness Palpation Details guarded and tight plantar fascia bilaterally PT-OP-K Range of Motion Start: 08/24/21 09:51 Freq: Status: Active Protocol: Document 08/24/21 09:45 [facility] (Rec: 08/30/21 09:42 [facility] [id number]) Ankle and Foot Goniometric Range of Motion Ankle and Foot Right Dorsiflexion with Knee Flexed 2 Dorsiflexion with Knee Extended 2 Plantarflexion 6 Inversion 5 Eversion 4 Comments very poor limited ankle mobility Left Dorsiflexion with Knee Flexed 3 Dorsiflexion with Knee Extended 2 Plantarflexion 5 Inversion 5 Eversion 4 Comments very poor limited ankle mobility Ankle and Foot ROM Limitations ROM Limitations Soft Tissue Tightness, Contracture,Pain Comments pt is very limited in ankle and foot ROM, the scleroderma has restricted her joint ROM so much that she only has a few degrees in all planes for her ankle. I am able to mobilize her metatarsals with very limited ROM, tightness in the calf and and plantar fascia B also limits ROM PT-OP-Q Treatments Start: 08/30/21 14:15 Freq: Status: Active Protocol: Document 07/19/22 13:48 [facility] (Rec: 07/19/22 17:34 [facility] [id number]) Manual Therapy Treatment Soft Tissue Mobilization Upper, middle traps Body Location B Mobilization Type Cross-Friction,Rolling Intensity/Depth Moderate Body Position Sitting Comments cued slow breaths and worked on diaphragmatic breathing in sitting B patellar tendon Body Location B Mobilization Type Cross-Friction Intensity/Depth Moderate Body Position Sitting Comments Long sitting Manual Techniques 2 Type manual stretching for the gastroc/soleus complex Body Location B Body Position Sitting Comments long sitting 1 Type PROM stretches were performed at B ankles and feet, manual stretching Body Location B PF/ DF, IV/EV Body Position Sitting Comments improving ankle ROM with manual stretches PT-OP-R Modalities Start: 07/19/22 17:34 Freq: Status: Active Protocol: Document 07/19/22 13:48 [facility] (Rec: 07/19/22 17:35 [facility] [id number]) Ultrasound Therapy Treatment Right plantar fascia Treatment Duration (minutes) 8 Patient Position Sitting Coupling Medium Ultrasound Gel Applicator Size (cm2) 5 Mode Setting Continuous Duty Cycle 100% Intensity Setting (w/cm2) 1.5 PT-OP-T Assessment and Plan Start: 08/24/21 09:51 Freq: Status: Active Protocol: Document 07/19/22 13:48 [facility] (Rec: 07/19/22 17:34 [facility] [id number]) Physical Therapy Assessment Goals 3 Impairment LE, foot and ankle pain rated 7/10 07/19/22- pain; pt feels her pain improving 5/10 Fpc Goal (LTG) With manual therapy techniques , ROM exercises, stretches, and mobility exercises Fay has a reduction in pain by 2-3 numbers on the pain scale good progress LTG Duration 12 weeks 2 Impairment B Calf and plantar fascia tightness and pain limiting pts ability to walk Short Term Goal (STG) Fay is educated on stretches and manual techniques she can do at home to help with plantar fascia and calf tightness As of 11/15/21 Fay has been educated on stretches to work on at home to help with plantar fascia tightness and calf tightness Good progress STG Duration 4 weeks Trim Operator Goal (LTG) Fay notes a overall reduction in tightness decreasing her pain with walking some progress LTG Duration 12 weeks 1 Impairment Poor ankle and foot ROM affecting balance and gait Trim Operator Goal (LTG) Fay is able to improve her ankle ROM by 5 degrees into DF to assist with gait and balance No engraver steel plate change with ankle ROM LTG Duration 12 weeks Assessment Summary Assessment trial of ultrasound today on the plantar aspect of the right foot prior to MFR techniques just to see how Fay would tolerate this and if it would help with tissue mobility following. The right side only was attempted and this did seem to help with ROM following. Fay will assess as to how she felt following treatment today as to if she would like to try additional ultrasound treatments. Fay would benefit from continued PT treatments to help with tissue mobility. Physical Therapy Plan Frequency and Duration Frequency of Treatment 2x/Week Duration of treatment (weeks) 12 Plan of Care Start Date 07/19/22 Plan of Care End Date 10/11/22 Therapeutic Interventions Therapeutic Interventions Balance Training,Gait Training ,Home Exercise Program,Joint Mobilizations,Manual Therapy, Patient/Caregiver Education, Self-Care/Home Management,Soft Tissue Mobilization, Therapeutic Exercises Next Visit Focus/Plan Next Note Type Treatment Note Next Visit Plan Assess how Fay did with the ultrasound on the plantar aspect of her feet. Ecourage biodex or sci fit following manual work.
--- NOTE | 2022-08-28 16:51 | PT.OTN ---
Current Diagnoses Systemic sclerosis, unspecified (08/28/22) Unsteadiness on feet (08/28/22) Physical Therapy Treatment Note PT-OP-A Visit Information Start: 08/24/21 09:51 Freq: Status: Active Protocol: Document 08/28/22 13:00 [facility] (Rec: 08/28/22 13:48 [facility] [id number]) Out-Patient Physical Therapy Visit Information Visit Information Visit Type Progress Note Visit Start Time 13:00 Visit Stop Time 13:45 Total Visit Minutes 45 Visit Number 46 Number of LEAD PROJECT ENGINEER Visits 0 PT-OP-B Current Condition Start: 08/24/21 09:51 Freq: Status: Active Protocol: Document 08/24/21 09:45 [facility] (Rec: 08/24/21 09:56 [facility] [id number]) Current Condition History of Current Condition 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 She also notes that despite going through pulmonary rehab she still feels short of breath all the time. 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, PHM also includes encephalopathy, hair loss, diabetes, [place] in 2019 with 2 stents placed Prior Treatments and Tests Pt has recieved PT in the past for ankle and foot ROM, balance, gait training, MFR and manual therapy techniques to improve ankle and foot mobility Treatment Goals Patient/Caregiver Goals Pts goals include improving ankle and foot mobility and decreasing stiffness and pain PT-OP-C Subjective Start: 08/24/21 09:51 Freq: Status: Active Protocol: Document 08/28/22 13:00 [facility] (Rec: 08/28/22 13:48 [facility] [id number]) OP-PT Subjective Patient Comments Patient Comments pt reports she had covid and it really knocked her out for a month PT-OP-F Manual Assessment Start: 08/30/21 13:57 Freq: Status: Active Protocol: Document 08/24/21 09:45 [facility] (Rec: 08/30/21 14:01 [facility] [id number]) Manual Assessments Soft Tissue Assessment Soft Tissue Mobility Assessment scleraderma throughout the calf and plantar fascia making tissue mobililty very difficult. Pt responds well to MFR and manual stretching PT-OP-J Posture/Palpation/Skin Start: 08/24/21 09:51 Freq: Status: Active Protocol: Document 08/24/21 09:45 [facility] (Rec: 08/30/21 09:42 [facility] [id number]) Palpation Assessment Location plantar fascia Palpation Location bilateral plantar fascia Palpation Findings Soft Tissue Tightness, Tenderness Palpation Details guarded and tight plantar fascia bilaterally PT-OP-K Range of Motion Start: 08/24/21 09:51 Freq: Status: Active Protocol: Document 08/24/21 09:45 [facility] (Rec: 08/30/21 09:42 [facility] [id number]) Ankle and Foot Goniometric Range of Motion Ankle and Foot Right Dorsiflexion with Knee Flexed 2 Dorsiflexion with Knee Extended 2 Plantarflexion 6 Inversion 5 Eversion 4 Comments very poor limited ankle mobility Left Dorsiflexion with Knee Flexed 3 Dorsiflexion with Knee Extended 2 Plantarflexion 5 Inversion 5 Eversion 4 Comments very poor limited ankle mobility Ankle and Foot ROM Limitations ROM Limitations Soft Tissue Tightness, Contracture,Pain Comments pt is very limited in ankle and foot ROM, the scleroderma has restricted her joint ROM so much that she only has a few degrees in all planes for her ankle. I am able to mobilize her metatarsals with very limited ROM, tightness in the calf and and plantar fascia B also limits ROM PT-OP-Q Treatments Start: 08/30/21 14:15 Freq: Status: Active Protocol: Document 08/28/22 13:00 [facility] (Rec: 08/28/22 16:51 [facility] [id number]) Manual Therapy Treatment Soft Tissue Mobilization Upper, middle traps Body Location B Mobilization Type Cross-Friction,Rolling Intensity/Depth Moderate Body Position Sitting Comments cued slow breaths and worked on diaphragmatic breathing in sitting B patellar tendon Body Location B Mobilization Type Cross-Friction Intensity/Depth Moderate Body Position Sitting Comments Long sitting Joint Mobilizations MTPs, intertarsals, calcaneus on talus/navicular Joint B Direction AP, med/lat Grade II Body Position Sitting Comments long sitting Manual Techniques 2 Type manual stretching for the gastroc/soleus complex Body Location B Body Position Sitting Comments long sitting 1 Type PROM stretches were performed at B ankles and feet, manual stretching Body Location B PF/ DF, IV/EV Body Position Sitting Comments improving ankle ROM with manual stretches PT-OP-R Modalities Start: 07/19/22 17:34 Freq: Status: Active Protocol: Document 07/19/22 13:48 [facility] (Rec: 07/19/22 17:35 [facility] [id number]) Ultrasound Therapy Treatment Right plantar fascia Treatment Duration (minutes) 8 Patient Position Sitting Coupling Medium Ultrasound Gel Applicator Size (cm2) 5 Mode Setting Continuous Duty Cycle 100% Intensity Setting (w/cm2) 1.5 PT-OP-T Assessment and Plan Start: 08/24/21 09:51 Freq: Status: Active Protocol: Document 08/28/22 13:00 [facility] (Rec: 08/28/22 16:51 [facility] [id number]) Physical Therapy Assessment Assessment Summary Assessment Fay feels like she slid backward with having covid. She has been very fatigued and has not been able to get out much. She did feel up to staying after today's treatment to do the biodex. Physical Therapy Plan Frequency and Duration Frequency of Treatment 2x/Week Duration of treatment (weeks) 12 Plan of Care Start Date 07/19/22 Plan of Care End Date 10/11/22 Therapeutic Interventions Therapeutic Interventions Balance Training,Gait Training ,Home Exercise Program,Joint Mobilizations,Manual Therapy, Patient/Caregiver Education, Self-Care/Home Management,Soft Tissue Mobilization, Therapeutic Exercises Next Visit Focus/Plan Next Note Type Treatment Note Next Visit Plan Encourage continued biodex or sci fit following manual work.
--- NOTE | 2022-09-26 14:16 | PT.OTN ---
Current Diagnoses Systemic sclerosis, unspecified (09/26/22) Unsteadiness on feet (09/26/22) Physical Therapy Treatment Note PT-OP-A Visit Information Start: 08/24/21 09:51 Freq: Status: Active Protocol: Document 09/26/22 09:42 [facility] (Rec: 09/26/22 09:50 [facility] [id number]) Out-Patient Physical Therapy Visit Information Visit Information Visit Type Treatment Note Visit Start Time 09:45 Visit Stop Time 10:30 Total Visit Minutes 45 Visit Number 49 Number of TURBINE ASSEMBLER Visits 0 PT-OP-B Current Condition Start: 08/24/21 09:51 Freq: Status: Active Protocol: Document 08/24/21 09:45 [facility] (Rec: 08/24/21 09:56 [facility] [id number]) Current Condition History of Current Condition 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 She also notes that despite going through pulmonary rehab she still feels short of breath all the time. 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, PHM also includes encephalopathy, hair loss, diabetes, [place] in 2019 with 2 stents placed Prior Treatments and Tests Pt has recieved PT in the past for ankle and foot ROM, balance, gait training, MFR and manual therapy techniques to improve ankle and foot mobility Treatment Goals Patient/Caregiver Goals Pts goals include improving ankle and foot mobility and decreasing stiffness and pain PT-OP-C Subjective Start: 08/24/21 09:51 Freq: Status: Active Protocol: Document 09/26/22 09:42 [facility] (Rec: 09/26/22 09:50 [facility] [id number]) OP-PT Subjective Patient Comments Patient Comments pt notes she rushed to get here today as she thought her appt was at 9:00 She saw the enrollment eligibility representative and he will give her a cream that might help with the pain. She is also getting a cream from her enrollment eligibility representative for her legs . PT-OP-F Manual Assessment Start: 08/30/21 13:57 Freq: Status: Active Protocol: Document 08/24/21 09:45 [facility] (Rec: 08/30/21 14:01 [facility] [id number]) Manual Assessments Soft Tissue Assessment Soft Tissue Mobility Assessment scleraderma throughout the calf and plantar fascia making tissue mobililty very difficult. Pt responds well to MFR and manual stretching PT-OP-J Posture/Palpation/Skin Start: 08/24/21 09:51 Freq: Status: Active Protocol: Document 08/24/21 09:45 [facility] (Rec: 08/30/21 09:42 [facility] [id number]) Palpation Assessment Location plantar fascia Palpation Location bilateral plantar fascia Palpation Findings Soft Tissue Tightness, Tenderness Palpation Details guarded and tight plantar fascia bilaterally PT-OP-K Range of Motion Start: 08/24/21 09:51 Freq: Status: Active Protocol: Document 08/24/21 09:45 [facility] (Rec: 08/30/21 09:42 [facility] [id number]) Ankle and Foot Goniometric Range of Motion Ankle and Foot Right Dorsiflexion with Knee Flexed 2 Dorsiflexion with Knee Extended 2 Plantarflexion 6 Inversion 5 Eversion 4 Comments very poor limited ankle mobility Left Dorsiflexion with Knee Flexed 3 Dorsiflexion with Knee Extended 2 Plantarflexion 5 Inversion 5 Eversion 4 Comments very poor limited ankle mobility Ankle and Foot ROM Limitations ROM Limitations Soft Tissue Tightness, Contracture,Pain Comments pt is very limited in ankle and foot ROM, the scleroderma has restricted her joint ROM so much that she only has a few degrees in all planes for her ankle. I am able to mobilize her metatarsals with very limited ROM, tightness in the calf and and plantar fascia B also limits ROM PT-OP-Q Treatments Start: 08/30/21 14:15 Freq: Status: Active Protocol: Document 09/26/22 14:14 [facility] (Rec: 09/26/22 14:15 [facility] [id number]) Cardio Equipment Recumbent Stepper (Sci-Fit) Duration (Minutes) 10 Resistance 2 Manual Therapy Treatment Soft Tissue Mobilization Upper, middle traps Body Location B Mobilization Type Cross-Friction,Rolling Intensity/Depth Moderate Body Position Sitting Comments cued slow breaths and worked on diaphragmatic breathing in sitting B patellar tendon Body Location B Mobilization Type Cross-Friction Intensity/Depth Moderate Body Position Sitting Comments Long sitting 1 Body Location B anterior and posterior shins /feet Mobilization Type Myofascial Release Intensity/Depth Superficial Body Position Sitting Comments PROM was performed at the ankles and feet Joint Mobilizations Patella mobes Joint B Direction med/lat/sup/inf Grade II Body Position Sitting Comments Long sitting. Manual Techniques 2 Type manual stretching for the gastroc/soleus complex Body Location B Body Position Sitting Comments long sitting 1 Type PROM stretches were performed at B ankles and feet, manual stretching Body Location B PF/ DF, IV/EV Body Position Sitting Comments improving ankle ROM with manual stretches PT-OP-R Modalities Start: 07/19/22 17:34 Freq: Status: Active Protocol: Document 07/19/22 13:48 [facility] (Rec: 07/19/22 17:35 [facility] [id number]) Ultrasound Therapy Treatment Right plantar fascia Treatment Duration (minutes) 8 Patient Position Sitting Coupling Medium Ultrasound Gel Applicator Size (cm2) 5 Mode Setting Continuous Duty Cycle 100% Intensity Setting (w/cm2) 1.5 PT-OP-T Assessment and Plan Start: 08/24/21 09:51 Freq: Status: Active Protocol: Document 09/26/22 14:15 [facility] (Rec: 09/26/22 14:16 [facility] [id number]) Physical Therapy Assessment Assessment Summary Assessment pt has been able to work on cardio a bit more these past few visits. She will obtain a new cream for her shins to help with the scleroderma from her enrollment eligibility representative Physical Therapy Plan Frequency and Duration Frequency of Treatment 2x/Week Duration of treatment (weeks) 12 Plan of Care Start Date 07/19/22 Plan of Care End Date 10/11/22 Therapeutic Interventions Therapeutic Interventions Balance Training,Gait Training ,Home Exercise Program,Joint Mobilizations,Manual Therapy, Patient/Caregiver Education, Self-Care/Home Management,Soft Tissue Mobilization, Therapeutic Exercises Next Visit Focus/Plan Next Note Type Treatment Note Next Visit Plan Encourage continued biodex or sci fit following manual work.
--- NOTE | 2022-09-28 16:23 | PT.OTN ---
Current Diagnoses Systemic sclerosis, unspecified (09/28/22) Unsteadiness on feet (09/28/22) Physical Therapy Treatment Note PT-OP-A Visit Information Start: 08/24/21 09:51 Freq: Status: Active Protocol: Document 09/28/22 14:43 NBM (Rec: 09/28/22 16:05 NBM [id number]) Out-Patient Physical Therapy Visit Information Visit Information Visit Type Treatment Note Visit Start Time 14:38 Visit Stop Time 15:25 Total Visit Minutes 47 Visit Number 51 Number of STANDARD MACHINE STITCHER Visits 1 PT-OP-B Current Condition Start: 08/24/21 09:51 Freq: Status: Active Protocol: Document 08/24/21 09:45 [facility] (Rec: 08/24/21 09:56 [facility] [id number]) Current Condition History of Current Condition 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 She also notes that despite going through pulmonary rehab she still feels short of breath all the time. 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, PHM also includes encephalopathy, hair loss, diabetes, [place] in 2019 with 2 stents placed Prior Treatments and Tests Pt has recieved PT in the past for ankle and foot ROM, balance, gait training, MFR and manual therapy techniques to improve ankle and foot mobility Treatment Goals Patient/Caregiver Goals Pts goals include improving ankle and foot mobility and decreasing stiffness and pain PT-OP-C Subjective Start: 08/24/21 09:51 Freq: Status: Active Protocol: Document 09/28/22 14:43 NBM (Rec: 09/28/22 16:05 NBM [id number]) OP-PT Subjective Patient Comments Patient Comments Pt states she is doing better and that she did 25 min at Lvl 4 on the Sci-Fit after last session. Pt states she is considering going to an exercise ball class. PT-OP-F Manual Assessment Start: 08/30/21 13:57 Freq: Status: Active Protocol: Document 08/24/21 09:45 [facility] (Rec: 08/30/21 14:01 [facility] [id number]) Manual Assessments Soft Tissue Assessment Soft Tissue Mobility Assessment scleraderma throughout the calf and plantar fascia making tissue mobililty very difficult. Pt responds well to MFR and manual stretching PT-OP-J Posture/Palpation/Skin Start: 08/24/21 09:51 Freq: Status: Active Protocol: Document 08/24/21 09:45 [facility] (Rec: 08/30/21 09:42 [facility] [id number]) Palpation Assessment Location plantar fascia Palpation Location bilateral plantar fascia Palpation Findings Soft Tissue Tightness, Tenderness Palpation Details guarded and tight plantar fascia bilaterally PT-OP-K Range of Motion Start: 08/24/21 09:51 Freq: Status: Active Protocol: Document 08/24/21 09:45 [facility] (Rec: 08/30/21 09:42 [facility] [id number]) Ankle and Foot Goniometric Range of Motion Ankle and Foot Right Dorsiflexion with Knee Flexed 2 Dorsiflexion with Knee Extended 2 Plantarflexion 6 Inversion 5 Eversion 4 Comments very poor limited ankle mobility Left Dorsiflexion with Knee Flexed 3 Dorsiflexion with Knee Extended 2 Plantarflexion 5 Inversion 5 Eversion 4 Comments very poor limited ankle mobility Ankle and Foot ROM Limitations ROM Limitations Soft Tissue Tightness, Contracture,Pain Comments pt is very limited in ankle and foot ROM, the scleroderma has restricted her joint ROM so much that she only has a few degrees in all planes for her ankle. I am able to mobilize her metatarsals with very limited ROM, tightness in the calf and and plantar fascia B also limits ROM PT-OP-Q Treatments Start: 08/30/21 14:15 Freq: Status: Active Protocol: Document 09/28/22 14:43 NBM (Rec: 09/28/22 16:05 NBM [id number]) Therapeutic Exercises Standing Exercises Kitchen Sink Stretch Standing Exercise Name added to HEP Equipment Used raised mat table Reps/Minutes 3' Comments stress-relieving Gastroc Stretch Side bilateral Reps/Minutes 2x60 ea Comments w cross-friction STM to patellar tendons bhavna Manual Therapy Treatment Soft Tissue Mobilization Upper, middle traps Body Location B Mobilization Type Cross-Friction,Rolling Intensity/Depth Moderate Body Position Sitting Comments cued slow breaths and worked on diaphragmatic breathing in sitting B patellar tendon Body Location B Mobilization Type Cross-Friction Intensity/Depth Moderate Body Position Sitting Comments during gastroc stretch 1 Body Location B anterior and posterior shins /feet Mobilization Type Myofascial Release Intensity/Depth Superficial Body Position Sitting Comments PROM was performed at the ankles and feet Joint Mobilizations MTPs, intertarsals, calcaneus on talus/navicular Joint B Direction AP, med/lat Grade II Body Position Sitting Comments long sitting Patella mobes Joint B Direction med/lat/sup/inf Grade II Body Position Sitting Comments Long sitting. Manual Techniques 2 Type manual stretching for the gastroc/soleus complex Body Location B Body Position Sitting Comments long sitting 1 Type PROM stretches were performed at B ankles and feet, manual stretching Body Location B PF/ DF, IV/EV Body Position Sitting Comments improving ankle ROM with manual stretches Neuro Re-Education Treatment Balance Activities heel raises Details w/ UE support Surface firm Equipment raised mat table Comments cues for slow eccentric. Cramp in L calf initially but resolved w/ gastroc stretch weightshifting Details lateral, anterior Surface floor Equipment raised mat table, close SBA Comments cued initially COG over RHETT, glute facilitation, Self-Care/Home Management Treatment Education Patient Education Home Exercise Program Other Education Added to HEP: Kitchen sink stretch for thoracic elongation - HO given. PT-OP-R Modalities Start: 07/19/22 17:34 Freq: Status: Active Protocol: Document 07/19/22 13:48 [facility] (Rec: 07/19/22 17:35 [facility] [id number]) Ultrasound Therapy Treatment Right plantar fascia Treatment Duration (minutes) 8 Patient Position Sitting Coupling Medium Ultrasound Gel Applicator Size (cm2) 5 Mode Setting Continuous Duty Cycle 100% Intensity Setting (w/cm2) 1.5 PT-OP-T Assessment and Plan Start: 08/24/21 09:51 Freq: Status: Active Protocol: Document 09/28/22 14:43 NBM (Rec: 09/28/22 16:05 NBM [id number]) Physical Therapy Assessment Goals 3 Impairment LE, foot and ankle pain rated 7/10 07/19/22- pain; pt feels her pain improving 5/10 Penitentiary Goal (LTG) With manual therapy techniques , ROM exercises, stretches, and mobility exercises Fay has a reduction in pain by 2-3 numbers on the pain scale good progress LTG Duration 12 weeks 2 Impairment B Calf and plantar fascia tightness and pain limiting pts ability to walk Short Term Goal (STG) Fay is educated on stretches and manual techniques she can do at home to help with plantar fascia and calf tightness As of 11/15/21 Fay has been educated on stretches to work on at home to help with plantar fascia tightness and calf tightness Good progress STG Duration 4 weeks Machine Shop Apprentice Goal (LTG) Fay notes a overall reduction in tightness decreasing her pain with walking some progress LTG Duration 12 weeks 1 Impairment Poor ankle and foot ROM affecting balance and gait Penitentiary Goal (LTG) Fay is able to improve her ankle ROM by 5 degrees into DF to assist with gait and balance No bed bug exterminator change with ankle ROM LTG Duration 12 weeks Assessment Summary Assessment Pt presents after visit with manager implementation yesterday with removal of thickened calluses on bilateral feet and ankles, and with one small wound cauterized on dorsal aspect of L foot. She tolerates treatment session well with increased focus on weightbearing ex's and weightshifting. Added to HEP: Kitchen sink stretch for thoracic elongation - HO given . Pt completes 25 minutes on Sci-Fit recumbant stepper after session. Physical Therapy Plan Frequency and Duration Frequency of Treatment 2x/Week Duration of treatment (weeks) 12 Plan of Care Start Date 07/19/22 Plan of Care End Date 10/11/22 Therapeutic Interventions Therapeutic Interventions Balance Training,Gait Training ,Home Exercise Program,Joint Mobilizations,Manual Therapy, Patient/Caregiver Education, Self-Care/Home Management,Soft Tissue Mobilization, Therapeutic Exercises Next Visit Focus/Plan Next Note Type Treatment Note Next Visit Plan Encourage continued biodex or sci fit following manual work.
--- NOTE | 2022-10-02 14:56 | PT.OTN ---
Current Diagnoses Systemic sclerosis, unspecified (10/02/22) Unsteadiness on feet (10/02/22) Physical Therapy Treatment Note PT-OP-A Visit Information Start: 08/24/21 09:51 Freq: Status: Active Protocol: Document 10/02/22 09:02 [facility] (Rec: 10/02/22 09:03 [facility] [id number]) Out-Patient Physical Therapy Visit Information Visit Information Visit Type Treatment Note Visit Start Time 09:00 Visit Stop Time 09:45 Total Visit Minutes 45 Visit Number 52 Number of TALENT ACQUISITION CONSULTANT Visits 0 PT-OP-B Current Condition Start: 08/24/21 09:51 Freq: Status: Active Protocol: Document 08/24/21 09:45 [facility] (Rec: 08/24/21 09:56 [facility] [id number]) Current Condition History of Current Condition 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 She also notes that despite going through pulmonary rehab she still feels short of breath all the time. 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, PHM also includes encephalopathy, hair loss, diabetes, [place] in 2019 with 2 stents placed Prior Treatments and Tests Pt has recieved PT in the past for ankle and foot ROM, balance, gait training, MFR and manual therapy techniques to improve ankle and foot mobility Treatment Goals Patient/Caregiver Goals Pts goals include improving ankle and foot mobility and decreasing stiffness and pain PT-OP-C Subjective Start: 08/24/21 09:51 Freq: Status: Active Protocol: Document 10/02/22 09:02 [facility] (Rec: 10/02/22 09:03 [facility] [id number]) OP-PT Subjective Patient Comments Patient Comments pt notes she has been doing a higher resistance on the sci fit and did 25 min last time , She feels she has been walking a little better and had a good session with the assistant teaching professor last week for cleaning up her feet and taking off calluses Patient Reported Progress Improving PT-OP-F Manual Assessment Start: 08/30/21 13:57 Freq: Status: Active Protocol: Document 08/24/21 09:45 [facility] (Rec: 08/30/21 14:01 [facility] [id number]) Manual Assessments Soft Tissue Assessment Soft Tissue Mobility Assessment scleraderma throughout the calf and plantar fascia making tissue mobililty very difficult. Pt responds well to MFR and manual stretching PT-OP-J Posture/Palpation/Skin Start: 08/24/21 09:51 Freq: Status: Active Protocol: Document 08/24/21 09:45 [facility] (Rec: 08/30/21 09:42 [facility] [id number]) Palpation Assessment Location plantar fascia Palpation Location bilateral plantar fascia Palpation Findings Soft Tissue Tightness, Tenderness Palpation Details guarded and tight plantar fascia bilaterally PT-OP-K Range of Motion Start: 08/24/21 09:51 Freq: Status: Active Protocol: Document 08/24/21 09:45 [facility] (Rec: 08/30/21 09:42 [facility] [id number]) Ankle and Foot Goniometric Range of Motion Ankle and Foot Right Dorsiflexion with Knee Flexed 2 Dorsiflexion with Knee Extended 2 Plantarflexion 6 Inversion 5 Eversion 4 Comments very poor limited ankle mobility Left Dorsiflexion with Knee Flexed 3 Dorsiflexion with Knee Extended 2 Plantarflexion 5 Inversion 5 Eversion 4 Comments very poor limited ankle mobility Ankle and Foot ROM Limitations ROM Limitations Soft Tissue Tightness, Contracture,Pain Comments pt is very limited in ankle and foot ROM, the scleroderma has restricted her joint ROM so much that she only has a few degrees in all planes for her ankle. I am able to mobilize her metatarsals with very limited ROM, tightness in the calf and and plantar fascia B also limits ROM PT-OP-Q Treatments Start: 08/30/21 14:15 Freq: Status: Active Protocol: Document 10/02/22 09:00 [facility] (Rec: 10/02/22 14:56 [facility] [id number]) Cardio Equipment Recumbent Stepper (Sci-Fit) Duration (Minutes) 10 Resistance 3 Manual Therapy Treatment Soft Tissue Mobilization Upper, middle traps Body Location B Mobilization Type Cross-Friction,Rolling Intensity/Depth Moderate Body Position Sitting Comments cued slow breaths and worked on diaphragmatic breathing in sitting 1 Body Location B anterior and posterior shins /feet Mobilization Type Myofascial Release Intensity/Depth Superficial Body Position Sitting Comments PROM was performed at the ankles and feet Joint Mobilizations thoracic spine Joint PA glides in sitting Direction PA Grade II Body Position Sitting Comments pt had good tolerance today for seated thoracic mobilizations, worked on deep breaths during throacic mobilizations Patella mobes Joint B Direction med/lat/sup/inf Grade II Body Position Sitting Comments Long sitting. Manual Techniques 2 Type manual stretching for the gastroc/soleus complex Body Location B Body Position Sitting Comments long sitting 1 Type PROM stretches were performed at B ankles and feet, manual stretching Body Location B PF/ DF, IV/EV Body Position Sitting Comments improving ankle ROM with manual stretches PT-OP-R Modalities Start: 07/19/22 17:34 Freq: Status: Active Protocol: Document 07/19/22 13:48 [facility] (Rec: 07/19/22 17:35 [facility] [id number]) Ultrasound Therapy Treatment Right plantar fascia Treatment Duration (minutes) 8 Patient Position Sitting Coupling Medium Ultrasound Gel Applicator Size (cm2) 5 Mode Setting Continuous Duty Cycle 100% Intensity Setting (w/cm2) 1.5 PT-OP-T Assessment and Plan Start: 08/24/21 09:51 Freq: Status: Active Protocol: Document 10/02/22 09:00 [facility] (Rec: 10/02/22 14:56 [facility] [id number]) Physical Therapy Assessment Assessment Summary Assessment pts feet do look a lot better after assistant teaching professor appt and she feels that she is walking better overall. Pt likes the standing stretch given last visit and was able to stay after her appointment for further work on the scifit Physical Therapy Plan Frequency and Duration Frequency of Treatment 2x/Week Duration of treatment (weeks) 12 Plan of Care Start Date 07/19/22 Plan of Care End Date 10/11/22 Therapeutic Interventions Therapeutic Interventions Balance Training,Gait Training ,Home Exercise Program,Joint Mobilizations,Manual Therapy, Patient/Caregiver Education, Self-Care/Home Management,Soft Tissue Mobilization, Therapeutic Exercises Next Visit Focus/Plan Next Note Type Treatment Note Next Visit Plan Encourage continued biodex or sci fit following manual work.
--- NOTE | 2022-10-04 14:17 | PT.OTN ---
Current Diagnoses Systemic sclerosis, unspecified (10/04/22) Unsteadiness on feet (10/04/22) Physical Therapy Treatment Note PT-OP-A Visit Information Start: 08/24/21 09:51 Freq: Status: Active Protocol: Document 10/04/22 09:36 [facility] (Rec: 10/04/22 10:33 [facility] [id number]) Out-Patient Physical Therapy Visit Information Visit Information Visit Type Treatment Note Visit Start Time 09:40 Visit Stop Time 10:30 Total Visit Minutes 50 Visit Number 53 PT-OP-B Current Condition Start: 08/24/21 09:51 Freq: Status: Active Protocol: Document 08/24/21 09:45 [facility] (Rec: 08/24/21 09:56 [facility] [id number]) Current Condition History of Current Condition 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 She also notes that despite going through pulmonary rehab she still feels short of breath all the time. 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, PHM also includes encephalopathy, hair loss, diabetes, [place] in 2019 with 2 stents placed Prior Treatments and Tests Pt has recieved PT in the past for ankle and foot ROM, balance, gait training, MFR and manual therapy techniques to improve ankle and foot mobility Treatment Goals Patient/Caregiver Goals Pts goals include improving ankle and foot mobility and decreasing stiffness and pain PT-OP-C Subjective Start: 08/24/21 09:51 Freq: Status: Active Protocol: Document 10/04/22 09:36 [facility] (Rec: 10/04/22 10:33 [facility] [id number]) OP-PT Subjective Patient Comments Patient Comments pt notes she was able to do her stair stepper for a couple of minutes at home. She also reports she is wearing two pairs of socks and this feels better for walking. Patient Reported Progress Improving PT-OP-F Manual Assessment Start: 08/30/21 13:57 Freq: Status: Active Protocol: Document 08/24/21 09:45 [facility] (Rec: 08/30/21 14:01 [facility] [id number]) Manual Assessments Soft Tissue Assessment Soft Tissue Mobility Assessment scleraderma throughout the calf and plantar fascia making tissue mobililty very difficult. Pt responds well to MFR and manual stretching PT-OP-J Posture/Palpation/Skin Start: 08/24/21 09:51 Freq: Status: Active Protocol: Document 08/24/21 09:45 [facility] (Rec: 08/30/21 09:42 [facility] [id number]) Palpation Assessment Location plantar fascia Palpation Location bilateral plantar fascia Palpation Findings Soft Tissue Tightness, Tenderness Palpation Details guarded and tight plantar fascia bilaterally PT-OP-K Range of Motion Start: 08/24/21 09:51 Freq: Status: Active Protocol: Document 08/24/21 09:45 [facility] (Rec: 08/30/21 09:42 [facility] [id number]) Ankle and Foot Goniometric Range of Motion Ankle and Foot Right Dorsiflexion with Knee Flexed 2 Dorsiflexion with Knee Extended 2 Plantarflexion 6 Inversion 5 Eversion 4 Comments very poor limited ankle mobility Left Dorsiflexion with Knee Flexed 3 Dorsiflexion with Knee Extended 2 Plantarflexion 5 Inversion 5 Eversion 4 Comments very poor limited ankle mobility Ankle and Foot ROM Limitations ROM Limitations Soft Tissue Tightness, Contracture,Pain Comments pt is very limited in ankle and foot ROM, the scleroderma has restricted her joint ROM so much that she only has a few degrees in all planes for her ankle. I am able to mobilize her metatarsals with very limited ROM, tightness in the calf and and plantar fascia B also limits ROM PT-OP-Q Treatments Start: 08/30/21 14:15 Freq: Status: Active Protocol: Document 10/04/22 09:36 [facility] (Rec: 10/04/22 14:16 [facility] [id number]) Cardio Equipment Recumbent Stepper (Sci-Fit) Duration (Minutes) 15 Resistance 5 Manual Therapy Treatment Soft Tissue Mobilization B patellar tendon Body Location B Mobilization Type Cross-Friction Intensity/Depth Moderate Body Position Sitting Comments during gastroc stretch 1 Body Location B anterior and posterior shins /feet Mobilization Type Myofascial Release Intensity/Depth Superficial Body Position Sitting Comments PROM was performed at the ankles and feet Joint Mobilizations MTPs, intertarsals, calcaneus on talus/navicular Joint B Direction AP, med/lat Grade II Body Position Sitting Comments long sitting Patella mobes Joint B Direction med/lat/sup/inf Grade II Body Position Sitting Comments Long sitting. Manual Techniques 2 Type manual stretching for the gastroc/soleus complex Body Location B Body Position Sitting Comments long sitting 1 Type PROM stretches were performed at B ankles and feet, manual stretching Body Location B PF/ DF, IV/EV Body Position Sitting Comments improving ankle ROM with manual stretches PT-OP-R Modalities Start: 07/19/22 17:34 Freq: Status: Active Protocol: Document 07/19/22 13:48 [facility] (Rec: 07/19/22 17:35 [facility] [id number]) Ultrasound Therapy Treatment Right plantar fascia Treatment Duration (minutes) 8 Patient Position Sitting Coupling Medium Ultrasound Gel Applicator Size (cm2) 5 Mode Setting Continuous Duty Cycle 100% Intensity Setting (w/cm2) 1.5 PT-OP-T Assessment and Plan Start: 08/24/21 09:51 Freq: Status: Active Protocol: Document 10/04/22 09:36 [facility] (Rec: 10/04/22 14:16 [facility] [id number]) Physical Therapy Assessment Assessment Summary Assessment pt has more endurance for cardio exercise and has been able to restart up her stair stepper at home. Improved circulation into her legs and she is tolerating manual ankle ROM better at this time. Continue to encourage home exercises including ankle ROM and rolling her foot on a ball for home Physical Therapy Plan Frequency and Duration Frequency of Treatment 2x/Week Duration of treatment (weeks) 12 Plan of Care Start Date 07/19/22 Plan of Care End Date 10/11/22 Therapeutic Interventions Therapeutic Interventions Balance Training,Gait Training ,Home Exercise Program,Joint Mobilizations,Manual Therapy, Patient/Caregiver Education, Self-Care/Home Management,Soft Tissue Mobilization, Therapeutic Exercises Next Visit Focus/Plan Next Note Type Progress Note Next Visit Plan Encourage continued biodex or sci fit following manual work.
--- NOTE | 2022-10-08 16:00 | PT.OTN ---
Current Diagnoses Systemic sclerosis, unspecified (10/08/22) Unsteadiness on feet (10/08/22) Physical Therapy Treatment Note PT-OP-A Visit Information Start: 08/24/21 09:51 Freq: Status: Active Protocol: Document 10/08/22 13:57 NBM (Rec: 10/08/22 14:38 NBM [id number]) Out-Patient Physical Therapy Visit Information Visit Information Visit Type Treatment Note Visit Start Time 13:54 Visit Stop Time 14:46 Total Visit Minutes 52 Visit Number 54 Number of WIRE TWISTING MACHINE OPERATOR Visits 1 PT-OP-B Current Condition Start: 08/24/21 09:51 Freq: Status: Active Protocol: Document 08/24/21 09:45 [facility] (Rec: 08/24/21 09:56 [facility] [id number]) Current Condition History of Current Condition 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 She also notes that despite going through pulmonary rehab she still feels short of breath all the time. 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, PHM also includes encephalopathy, hair loss, diabetes, [place] in 2019 with 2 stents placed Prior Treatments and Tests Pt has recieved PT in the past for ankle and foot ROM, balance, gait training, MFR and manual therapy techniques to improve ankle and foot mobility Treatment Goals Patient/Caregiver Goals Pts goals include improving ankle and foot mobility and decreasing stiffness and pain PT-OP-C Subjective Start: 08/24/21 09:51 Freq: Status: Active Protocol: Document 10/08/22 13:57 NBM (Rec: 10/08/22 14:38 NBM [id number]) OP-PT Subjective Patient Comments Patient Comments Pt reports she has the stair stepper at home but has only done it once because she gets breathless and really feels it in her muscles - she wants to do it again. Getting up from a chair or couch has been a lot easier. She wants to use the recumbent stepper after today's session. PT-OP-F Manual Assessment Start: 08/30/21 13:57 Freq: Status: Active Protocol: Document 08/24/21 09:45 [facility] (Rec: 08/30/21 14:01 [facility] [id number]) Manual Assessments Soft Tissue Assessment Soft Tissue Mobility Assessment scleraderma throughout the calf and plantar fascia making tissue mobililty very difficult. Pt responds well to MFR and manual stretching PT-OP-J Posture/Palpation/Skin Start: 08/24/21 09:51 Freq: Status: Active Protocol: Document 08/24/21 09:45 [facility] (Rec: 08/30/21 09:42 [facility] [id number]) Palpation Assessment Location plantar fascia Palpation Location bilateral plantar fascia Palpation Findings Soft Tissue Tightness, Tenderness Palpation Details guarded and tight plantar fascia bilaterally PT-OP-K Range of Motion Start: 08/24/21 09:51 Freq: Status: Active Protocol: Document 08/24/21 09:45 [facility] (Rec: 08/30/21 09:42 [facility] [id number]) Ankle and Foot Goniometric Range of Motion Ankle and Foot Right Dorsiflexion with Knee Flexed 2 Dorsiflexion with Knee Extended 2 Plantarflexion 6 Inversion 5 Eversion 4 Comments very poor limited ankle mobility Left Dorsiflexion with Knee Flexed 3 Dorsiflexion with Knee Extended 2 Plantarflexion 5 Inversion 5 Eversion 4 Comments very poor limited ankle mobility Ankle and Foot ROM Limitations ROM Limitations Soft Tissue Tightness, Contracture,Pain Comments pt is very limited in ankle and foot ROM, the scleroderma has restricted her joint ROM so much that she only has a few degrees in all planes for her ankle. I am able to mobilize her metatarsals with very limited ROM, tightness in the calf and and plantar fascia B also limits ROM PT-OP-Q Treatments Start: 08/30/21 14:15 Freq: Status: Active Protocol: Document 10/08/22 13:57 NBM (Rec: 10/08/22 14:38 NBM [id number]) Cardio Equipment Recumbent Stepper (Sci-Fit) Duration (Minutes) 15 Resistance 5 Therapeutic Activity Therapeutic Activity Sit to Stand Reps/Minutes x5 Comments cues for glute squeeze at top, control eccentric ( challenging), bhavna knee alignment Manual Therapy Treatment Soft Tissue Mobilization Upper, middle traps Body Location B Mobilization Type Cross-Friction,Oscillations, Rolling,Sustained Pressure Intensity/Depth Moderate Body Position Sitting Comments Also periscapular w/ focus to B superior and lateral borders of scapulae. cued slow breaths and worked on diaphragmatic breathing in sitting B patellar tendon Body Location B Mobilization Type Cross-Friction Intensity/Depth Moderate Body Position Sitting Comments during gastroc stretch 1 Body Location B anterior and posterior shins /feet Mobilization Type Myofascial Release Intensity/Depth Superficial Body Position Sitting Comments PROM was performed at the ankles and feet PT-OP-R Modalities Start: 07/19/22 17:34 Freq: Status: Active Protocol: Document 07/19/22 13:48 [facility] (Rec: 07/19/22 17:35 [facility] [id number]) Ultrasound Therapy Treatment Right plantar fascia Treatment Duration (minutes) 8 Patient Position Sitting Coupling Medium Ultrasound Gel Applicator Size (cm2) 5 Mode Setting Continuous Duty Cycle 100% Intensity Setting (w/cm2) 1.5 PT-OP-T Assessment and Plan Start: 08/24/21 09:51 Freq: Status: Active Protocol: Document 10/08/22 13:57 NBM (Rec: 10/08/22 14:38 NBM [id number]) Physical Therapy Assessment Goals 3 Impairment LE, foot and ankle pain rated 7/10 07/19/22- pain; pt feels her pain improving 5/10 Driver Education Instructor Goal (LTG) With manual therapy techniques , ROM exercises, stretches, and mobility exercises Fay has a reduction in pain by 2-3 numbers on the pain scale good progress LTG Duration 12 weeks 2 Impairment B Calf and plantar fascia tightness and pain limiting pts ability to walk Short Term Goal (STG) Fay is educated on stretches and manual techniques she can do at home to help with plantar fascia and calf tightness As of 11/15/21 Fay has been educated on stretches to work on at home to help with plantar fascia tightness and calf tightness Good progress STG Duration 4 weeks Detention Goal (LTG) Fay notes a overall reduction in tightness decreasing her pain with walking some progress LTG Duration 12 weeks 1 Impairment Poor ankle and foot ROM affecting balance and gait Driver Education Instructor Goal (LTG) Fay is able to improve her ankle ROM by 5 degrees into DF to assist with gait and balance No local company intermodal truck driver change with ankle ROM LTG Duration 12 weeks Assessment Summary Assessment Pt has positive feedback response to soft tissue mobilization to superior and lateral borders of bilateral scapulae. Pt is able to perform 5x Sit to Stand w/ UE support and cues for glute squeeze - pt is very challenged w/ eccentric control and knee valgus with sitting. Pt's self-awarenss of LE alginment improves w/ cueing and repetition. Physical Therapy Plan Frequency and Duration Frequency of Treatment 2x/Week Duration of treatment (weeks) 12 Plan of Care Start Date 07/19/22 Plan of Care End Date 10/11/22 Therapeutic Interventions Therapeutic Interventions Balance Training,Gait Training ,Home Exercise Program,Joint Mobilizations,Manual Therapy, Patient/Caregiver Education, Self-Care/Home Management,Soft Tissue Mobilization, Therapeutic Exercises Next Visit Focus/Plan Next Note Type Progress Note Next Visit Plan Encourage continued biodex or sci fit following manual work.
--- NOTE | 2022-10-11 14:30 | PT.OPPN ---
Current Diagnoses Systemic sclerosis, unspecified (10/16/22) Unsteadiness on feet (10/16/22) Physical Therapy Progress Note PT-OP-A Visit Information Start: 08/24/21 09:51 Freq: Status: Active Protocol: Document 10/11/22 13:45 [facility] (Rec: 10/16/22 15:40 [facility] [id number]) Out-Patient Physical Therapy Visit Information Visit Information Visit Type Progress Note Visit Start Time 13:45 Visit Stop Time 14:30 Total Visit Minutes 45 Visit Number 55 Number of TWINE REELING MACHINE OPERATOR Visits 0 PT-OP-B Current Condition Start: 08/24/21 09:51 Freq: Status: Active Protocol: Document 08/24/21 09:45 [facility] (Rec: 08/24/21 09:56 [facility] [id number]) Current Condition History of Current Condition 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 She also notes that despite going through pulmonary rehab she still feels short of breath all the time. 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, PHM also includes encephalopathy, hair loss, diabetes, [place] in 2019 with 2 stents placed Prior Treatments and Tests Pt has recieved PT in the past for ankle and foot ROM, balance, gait training, MFR and manual therapy techniques to improve ankle and foot mobility Treatment Goals Patient/Caregiver Goals Pts goals include improving ankle and foot mobility and decreasing stiffness and pain PT-OP-C Subjective Start: 08/24/21 09:51 Freq: Status: Active Protocol: Document 10/11/22 13:45 [facility] (Rec: 10/16/22 15:40 [facility] [id number]) OP-PT Subjective Patient Comments Patient Comments Pt reports she has the stair stepper at home but has only done it once because she gets breathless and really feels it in her muscles - she wants to do it again. Getting up from a chair or couch has been a lot easier. She wants to use the recumbent stepper after today's session. PT-OP-F Manual Assessment Start: 08/30/21 13:57 Freq: Status: Active Protocol: Document 08/24/21 09:45 [facility] (Rec: 08/30/21 14:01 [facility] [id number]) Manual Assessments Soft Tissue Assessment Soft Tissue Mobility Assessment scleraderma throughout the calf and plantar fascia making tissue mobililty very difficult. Pt responds well to MFR and manual stretching PT-OP-J Posture/Palpation/Skin Start: 08/24/21 09:51 Freq: Status: Active Protocol: Document 08/24/21 09:45 [facility] (Rec: 08/30/21 09:42 [facility] [id number]) Palpation Assessment Location plantar fascia Palpation Location bilateral plantar fascia Palpation Findings Soft Tissue Tightness, Tenderness Palpation Details guarded and tight plantar fascia bilaterally PT-OP-K Range of Motion Start: 08/24/21 09:51 Freq: Status: Active Protocol: Document 08/24/21 09:45 [facility] (Rec: 08/30/21 09:42 [facility] [id number]) Ankle and Foot Goniometric Range of Motion Ankle and Foot Measured in Degrees Right Dorsiflexion with Knee Flexed 2 Dorsiflexion with Knee Extended 2 Plantarflexion 6 Inversion 5 Eversion 4 Comments very poor limited ankle mobility Left Dorsiflexion with Knee Flexed 3 Dorsiflexion with Knee Extended 2 Plantarflexion 5 Inversion 5 Eversion 4 Comments very poor limited ankle mobility Ankle and Foot ROM Limitations ROM Limitations Soft Tissue Tightness, Contracture,Pain Comments pt is very limited in ankle and foot ROM, the scleroderma has restricted her joint ROM so much that she only has a few degrees in all planes for her ankle. I am able to mobilize her metatarsals with very limited ROM, tightness in the calf and and plantar fascia B also limits ROM PT-OP-T Assessment and Plan Start: 08/24/21 09:51 Freq: Status: Active Protocol: Document 10/11/22 13:45 [facility] (Rec: 10/16/22 15:40 [facility] [id number]) Physical Therapy Assessment Goals 3 Impairment LE, foot and ankle pain rated 7/10 10/11/22- pain; pt feels her pain improving 5/10 Fpc Goal (LTG) With manual therapy techniques , ROM exercises, stretches, and mobility exercises Fay has a reduction in pain by 2-3 numbers on the pain scale good progress LTG Duration 12 weeks 2 Impairment B Calf and plantar fascia tightness and pain limiting pts ability to walk Short Term Goal (STG) Fay is educated on stretches and manual techniques she can do at home to help with plantar fascia and calf tightness As of 11/15/21 Fay has been educated on stretches to work on at home to help with plantar fascia tightness and calf tightness Good progress STG Duration 4 weeks Cold Roll Inspector Goal (LTG) Fay notes a overall reduction in tightness decreasing her pain with walking some progress LTG Duration 12 weeks 1 Impairment Poor ankle and foot ROM affecting balance and gait Fpc Goal (LTG) Fay is able to improve her ankle ROM by 5 degrees into DF to assist with gait and balance No long-term change with ankle ROM LTG Duration 12 weeks Assessment Summary Assessment Pt responds well to soft tissue mobilization of the calf and plantar aspect of her feet as well as manual therapy for ankle mobility. She has been able to increase her time on the stationary bike to 25 min and reports overall improvements in ability to ambulate following her treatments. Unfortunatly she is not getting any long-term effects. She has one visit left in October to review her HEP and then PT will be discontinued at that time. Physical Therapy Plan Frequency and Duration Frequency of Treatment 1x/Week Duration of treatment (weeks) 4 Plan of Care Start Date 10/11/22 Plan of Care End Date 11/13/22 Therapeutic Interventions Therapeutic Interventions Balance Training,Gait Training ,Home Exercise Program,Joint Mobilizations,Manual Therapy, Patient/Caregiver Education, Self-Care/Home Management,Soft Tissue Mobilization, Therapeutic Exercises Next Visit Focus/Plan Next Note Type Treatment Note Next Visit Plan Encourage continued biodex or sci fit following manual work.
--- NOTE | 2022-10-11 14:30 | PT.OPPOC ---
Physical, Occupational & Speech Therapy At [facility] Current Diagnoses Systemic sclerosis, unspecified (10/16/22) Unsteadiness on feet (10/16/22) Visit Care Team Role Provider Type Timur Schwartz MD Attending Provider Physician Family Provider Primary Care Provider Referring Provider Specialty: Internal Medicine Address: [address] [place] [address], [facility] Email: [email or web address] Plan Of Care PT-OP-T Assessment and Plan Start: 08/24/21 09:51 Freq: Status: Active Protocol: Document 10/11/22 13:45 [facility] (Rec: 10/16/22 15:40 [facility] [id number]) Physical Therapy Assessment Goals 3 Impairment LE, foot and ankle pain rated 7/10 10/11/22- pain; pt feels her pain improving 5/10 Python Java Developer Goal (LTG) With manual therapy techniques , ROM exercises, stretches, and mobility exercises Fay has a reduction in pain by 2-3 numbers on the pain scale good progress LTG Duration 12 weeks 2 Impairment B Calf and plantar fascia tightness and pain limiting pts ability to walk Short Term Goal (STG) Fay is educated on stretches and manual techniques she can do at home to help with plantar fascia and calf tightness As of 11/15/21 Fay has been educated on stretches to work on at home to help with plantar fascia tightness and calf tightness Good progress STG Duration 4 weeks Python Java Developer Goal (LTG) Fay notes a overall reduction in tightness decreasing her pain with walking some progress LTG Duration 12 weeks 1 Impairment Poor ankle and foot ROM affecting balance and gait Python Java Developer Goal (LTG) Fay is able to improve her ankle ROM by 5 degrees into DF to assist with gait and balance No moth exterminator change with ankle ROM LTG Duration 12 weeks Assessment Summary Assessment Margarito responds well to soft tissue mobilization of the calf and plantar aspect of her feet as well as manual therapy for ankle mobility. She has been able to increase her time on the stationary bike to 25 min and reports overall improvements in ability to ambulate following her treatments. Unfortunately she is not getting any moth exterminator effects. She has one visit left in October to review her HEP and then PT will be discontinued at that time. Physical Therapy Plan Frequency and Duration Frequency of Treatment 1x/Week Duration of treatment (weeks) 4 Plan of Care Start Date 10/11/22 Plan of Care End Date 11/13/22 Therapeutic Interventions Therapeutic Interventions Balance Training,Gait Training ,Home Exercise Program,Joint Mobilizations,Manual Therapy, Patient/Caregiver Education, Self-Care/Home Management,Soft Tissue Mobilization, Therapeutic Exercises Next Visit Focus/Plan Next Note Type Treatment Note Next Visit Plan Encourage continued biodex or sci fit following manual work. Plan of Care Dates Plan of Care Start Date 10/11/22 Plan of Care End Date 11/13/22 Electronically Signed by: Nidhi Villanueva, PT 10/16/22 2135 If you are in agreement with this Plan of Care, please return a signed and dated copy. I have reviewed this Plan of Care and certify that the skilled therapy services above are required to meet the patient?s needs. Physician Signature Date Printed Name and Credentials Clinical Instructor Signature Printed Name and Credentials
--- NOTE | 2022-10-11 15:42 | PT.OTN ---
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 PT-OP-B Current Condition Start: 08/24/21 09:51 Freq: Status: Active Protocol: Document 08/24/21 09:45 [facility] (Rec: 08/24/21 09:56 [facility] [id number]) Current Condition History of Current Condition 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 She also notes that despite going through pulmonary rehab she still feels short of breath all the time. 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, PHM also includes encephalopathy, hair loss, diabetes, [place] in 2019 with 2 stents placed Prior Treatments and Tests Pt has recieved PT in the past for ankle and foot ROM, balance, gait training, MFR and manual therapy techniques to improve ankle and foot mobility Treatment Goals Patient/Caregiver Goals Pts goals include improving ankle and foot mobility and decreasing stiffness and pain PT-OP-C Subjective Start: 08/24/21 09:51 Freq: Status: Active Protocol: Document 10/11/22 13:45 [facility] (Rec: 10/16/22 15:40 [facility] [id number]) OP-PT Subjective Patient Comments Patient Comments Pt reports she has the stair stepper at home but has only done it once because she gets breathless and really feels it in her muscles - she wants to do it again. Getting up from a chair or couch has been a lot easier. She wants to use the recumbent stepper after today's session. PT-OP-F Manual Assessment Start: 08/30/21 13:57 Freq: Status: Active Protocol: Document 08/24/21 09:45 [facility] (Rec: 08/30/21 14:01 [facility] [id number]) Manual Assessments Soft Tissue Assessment Soft Tissue Mobility Assessment scleraderma throughout the calf and plantar fascia making tissue mobililty very difficult. Pt responds well to MFR and manual stretching PT-OP-J Posture/Palpation/Skin Start: 08/24/21 09:51 Freq: Status: Active Protocol: Document 08/24/21 09:45 [facility] (Rec: 08/30/21 09:42 [facility] [id number]) Palpation Assessment Location plantar fascia Palpation Location bilateral plantar fascia Palpation Findings Soft Tissue Tightness, Tenderness Palpation Details guarded and tight plantar fascia bilaterally PT-OP-K Range of Motion Start: 08/24/21 09:51 Freq: Status: Active Protocol: Document 08/24/21 09:45 [facility] (Rec: 08/30/21 09:42 [facility] [id number]) Ankle and Foot Goniometric Range of Motion Ankle and Foot Right Dorsiflexion with Knee Flexed 2 Dorsiflexion with Knee Extended 2 Plantarflexion 6 Inversion 5 Eversion 4 Comments very poor limited ankle mobility Left Dorsiflexion with Knee Flexed 3 Dorsiflexion with Knee Extended 2 Plantarflexion 5 Inversion 5 Eversion 4 Comments very poor limited ankle mobility Ankle and Foot ROM Limitations ROM Limitations Soft Tissue Tightness, Contracture,Pain Comments pt is very limited in ankle and foot ROM, the scleroderma has restricted her joint ROM so much that she only has a few degrees in all planes for her ankle. I am able to mobilize her metatarsals with very limited ROM, tightness in the calf and and plantar fascia B also limits ROM PT-OP-Q Treatments Start: 08/30/21 14:15 Freq: Status: Active Protocol: Document 10/11/22 13:45 [facility] (Rec: 10/16/22 15:40 [facility] [id number]) Cardio Equipment Recumbent Elliptical (Biodex) Duration (Minutes) 10 Resistance 3 Manual Therapy Treatment Soft Tissue Mobilization Upper, middle traps Body Location B Mobilization Type Cross-Friction,Oscillations, Rolling,Sustained Pressure Intensity/Depth Moderate Body Position Sitting Comments Also periscapular w/ focus to B superior and lateral borders of scapulae. cued slow breaths and worked on diaphragmatic breathing in sitting B patellar tendon Body Location B Mobilization Type Cross-Friction Intensity/Depth Moderate Body Position Sitting Comments during gastroc stretch Manual Techniques 2 Type manual stretching for the gastroc/soleus complex Body Location B Body Position Sitting Comments long sitting 1 Type PROM stretches were performed at B ankles and feet, manual stretching Body Location B PF/ DF, IV/EV Body Position Sitting Comments improving ankle ROM with manual stretches PT-OP-R Modalities Start: 07/19/22 17:34 Freq: Status: Active Protocol: Document 07/19/22 13:48 [facility] (Rec: 07/19/22 17:35 [facility] [id number]) Ultrasound Therapy Treatment Right plantar fascia Treatment Duration (minutes) 8 Patient Position Sitting Coupling Medium Ultrasound Gel Applicator Size (cm2) 5 Mode Setting Continuous Duty Cycle 100% Intensity Setting (w/cm2) 1.5 PT-OP-T Assessment and Plan Start: 08/24/21 09:51 Freq: Status: Active Protocol: Document 10/11/22 13:45 [facility] (Rec: 10/16/22 15:40 [facility] [id number]) Physical Therapy Assessment Goals 3 Impairment LE, foot and ankle pain rated 7/10 10/11/22- pain; pt feels her pain improving 5/10 Half-Way Goal (LTG) With manual therapy techniques , ROM exercises, stretches, and mobility exercises Fay has a reduction in pain by 2-3 numbers on the pain scale good progress LTG Duration 12 weeks 2 Impairment B Calf and plantar fascia tightness and pain limiting pts ability to walk Short Term Goal (STG) Fay is educated on stretches and manual techniques she can do at home to help with plantar fascia and calf tightness As of 11/15/21 Fay has been educated on stretches to work on at home to help with plantar fascia tightness and calf tightness Good progress STG Duration 4 weeks Half-Way Goal (LTG) Fay notes a overall reduction in tightness decreasing her pain with walking some progress LTG Duration 12 weeks 1 Impairment Poor ankle and foot ROM affecting balance and gait Half-Way Goal (LTG) Fay is able to improve her ankle ROM by 5 degrees into DF to assist with gait and balance No halfway change with ankle ROM LTG Duration 12 weeks Assessment Summary Assessment Pt responds well to soft tissue mobilization of the calf and plantar aspect of her feet as well as manual therapy for ankle mobility. She has been able to increase her time on the stationary bike to 25 min and reports overall improvements in ability to ambulate following her treatments. Unfortunatly she is not getting any halfway effects. She has one visit left in October to review her HEP and then PT will be discontinued at that time. Physical Therapy Plan Frequency and Duration Frequency of Treatment 1x/Week Duration of treatment (weeks) 4 Plan of Care Start Date 10/11/22 Plan of Care End Date 11/13/22 Therapeutic Interventions Therapeutic Interventions Balance Training,Gait Training ,Home Exercise Program,Joint Mobilizations,Manual Therapy, Patient/Caregiver Education, Self-Care/Home Management,Soft Tissue Mobilization, Therapeutic Exercises Next Visit Focus/Plan Next Note Type Treatment Note Next Visit Plan Encourage continued biodex or sci fit following manual work.
--- NOTE | 2022-10-16 15:47 | PT.OTN ---
Current Diagnoses Systemic sclerosis, unspecified (10/16/22) Unsteadiness on feet (10/16/22) Physical Therapy Treatment Note PT-OP-A Visit Information Start: 08/24/21 09:51 Freq: Status: Active Protocol: Document 10/16/22 15:42 [facility] (Rec: 10/16/22 15:46 [facility] [id number]) Out-Patient Physical Therapy Visit Information Visit Information Visit Type Treatment Note Visit Start Time 13:45 Visit Stop Time 14:30 Total Visit Minutes 45 Visit Number 56 PT-OP-B Current Condition Start: 08/24/21 09:51 Freq: Status: Active Protocol: Document 08/24/21 09:45 [facility] (Rec: 08/24/21 09:56 [facility] [id number]) Current Condition History of Current Condition 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 She also notes that despite going through pulmonary rehab she still feels short of breath all the time. 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, PHM also includes encephalopathy, hair loss, diabetes, [place] in 2019 with 2 stents placed Prior Treatments and Tests Pt has recieved PT in the past for ankle and foot ROM, balance, gait training, MFR and manual therapy techniques to improve ankle and foot mobility Treatment Goals Patient/Caregiver Goals Pts goals include improving ankle and foot mobility and decreasing stiffness and pain PT-OP-C Subjective Start: 08/24/21 09:51 Freq: Status: Active Protocol: Document 10/16/22 15:42 [facility] (Rec: 10/16/22 15:46 [facility] [id number]) OP-PT Subjective Patient Comments Patient Comments Fay notes she has been trying to do the stair stepper more at home. PT-OP-F Manual Assessment Start: 08/30/21 13:57 Freq: Status: Active Protocol: Document 08/24/21 09:45 [facility] (Rec: 08/30/21 14:01 [facility] [id number]) Manual Assessments Soft Tissue Assessment Soft Tissue Mobility Assessment scleraderma throughout the calf and plantar fascia making tissue mobililty very difficult. Pt responds well to MFR and manual stretching PT-OP-J Posture/Palpation/Skin Start: 08/24/21 09:51 Freq: Status: Active Protocol: Document 08/24/21 09:45 [facility] (Rec: 08/30/21 09:42 [facility] [id number]) Palpation Assessment Location plantar fascia Palpation Location bilateral plantar fascia Palpation Findings Soft Tissue Tightness, Tenderness Palpation Details guarded and tight plantar fascia bilaterally PT-OP-K Range of Motion Start: 08/24/21 09:51 Freq: Status: Active Protocol: Document 08/24/21 09:45 [facility] (Rec: 08/30/21 09:42 [facility] [id number]) Ankle and Foot Goniometric Range of Motion Ankle and Foot Right Dorsiflexion with Knee Flexed 2 Dorsiflexion with Knee Extended 2 Plantarflexion 6 Inversion 5 Eversion 4 Comments very poor limited ankle mobility Left Dorsiflexion with Knee Flexed 3 Dorsiflexion with Knee Extended 2 Plantarflexion 5 Inversion 5 Eversion 4 Comments very poor limited ankle mobility Ankle and Foot ROM Limitations ROM Limitations Soft Tissue Tightness, Contracture,Pain Comments pt is very limited in ankle and foot ROM, the scleroderma has restricted her joint ROM so much that she only has a few degrees in all planes for her ankle. I am able to mobilize her metatarsals with very limited ROM, tightness in the calf and and plantar fascia B also limits ROM PT-OP-Q Treatments Start: 08/30/21 14:15 Freq: Status: Active Protocol: Document 10/16/22 15:42 [facility] (Rec: 10/16/22 15:46 [facility] [id number]) Cardio Equipment Recumbent Elliptical (Biodex) Duration (Minutes) 15 Resistance 3 Manual Therapy Treatment Soft Tissue Mobilization Upper, middle traps Body Location B Mobilization Type Cross-Friction,Oscillations, Rolling,Sustained Pressure Intensity/Depth Moderate Body Position Sitting Comments Also periscapular w/ focus to B superior and lateral borders of scapulae. cued slow breaths and worked on diaphragmatic breathing in sitting B patellar tendon Body Location B Mobilization Type Cross-Friction Intensity/Depth Moderate Body Position Sitting Comments during gastroc stretch 1 Body Location B anterior and posterior shins /feet Mobilization Type Myofascial Release Intensity/Depth Superficial Body Position Sitting Comments PROM was performed at the ankles and feet Manual Techniques 2 Type manual stretching for the gastroc/soleus complex Body Location B Body Position Sitting Comments long sitting 1 Type PROM stretches were performed at B ankles and feet, manual stretching Body Location B PF/ DF, IV/EV Body Position Sitting Comments improving ankle ROM with manual stretches PT-OP-R Modalities Start: 07/19/22 17:34 Freq: Status: Active Protocol: Document 07/19/22 13:48 [facility] (Rec: 07/19/22 17:35 [facility] [id number]) Ultrasound Therapy Treatment Right plantar fascia Treatment Duration (minutes) 8 Patient Position Sitting Coupling Medium Ultrasound Gel Applicator Size (cm2) 5 Mode Setting Continuous Duty Cycle 100% Intensity Setting (w/cm2) 1.5 PT-OP-T Assessment and Plan Start: 08/24/21 09:51 Freq: Status: Active Protocol: Document 10/16/22 15:46 [facility] (Rec: 10/16/22 15:47 [facility] [id number]) Physical Therapy Assessment Assessment Summary Assessment pt has one visit left in PT. Review all established HEP next visit and encourage continued use of her stair stepper. Physical Therapy Plan Frequency and Duration Frequency of Treatment 1x/Week Duration of treatment (weeks) 4 Plan of Care Start Date 10/11/22 Plan of Care End Date 11/13/22 Next Visit Focus/Plan Next Note Type Treatment Note Next Visit Plan Review HEP as this will be Fay's last PT visit
--- NOTE | 2022-10-31 13:41 | PT.OTN ---
Current Diagnoses Systemic sclerosis, unspecified (10/31/22) Unsteadiness on feet (10/31/22) Physical Therapy Treatment Note PT-OP-A Visit Information Start: 08/24/21 09:51 Freq: Status: Active Protocol: Document 10/31/22 12:07 [facility] (Rec: 10/31/22 12:09 [facility] [id number]) Out-Patient Physical Therapy Visit Information Visit Information Visit Type Treatment Note Visit Start Time 12:00 Visit Stop Time 12:45 Total Visit Minutes 45 Visit Number 57 PT-OP-B Current Condition Start: 08/24/21 09:51 Freq: Status: Active Protocol: Document 08/24/21 09:45 [facility] (Rec: 08/24/21 09:56 [facility] [id number]) Current Condition History of Current Condition 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 She also notes that despite going through pulmonary rehab she still feels short of breath all the time. 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, PHM also includes encephalopathy, hair loss, diabetes, [place] in 2019 with 2 stents placed Prior Treatments and Tests Pt has recieved PT in the past for ankle and foot ROM, balance, gait training, MFR and manual therapy techniques to improve ankle and foot mobility Treatment Goals Patient/Caregiver Goals Pts goals include improving ankle and foot mobility and decreasing stiffness and pain PT-OP-C Subjective Start: 08/24/21 09:51 Freq: Status: Active Protocol: Document 10/31/22 12:07 [facility] (Rec: 10/31/22 12:09 [facility] [id number]) OP-PT Subjective Patient Comments Patient Comments pt notes there is a spot on her foot that is super sensitive and is still hurting her. Patient Reported Progress Same PT-OP-F Manual Assessment Start: 08/30/21 13:57 Freq: Status: Active Protocol: Document 08/24/21 09:45 [facility] (Rec: 08/30/21 14:01 [facility] [id number]) Manual Assessments Soft Tissue Assessment Soft Tissue Mobility Assessment scleraderma throughout the calf and plantar fascia making tissue mobililty very difficult. Pt responds well to MFR and manual stretching PT-OP-J Posture/Palpation/Skin Start: 08/24/21 09:51 Freq: Status: Active Protocol: Document 08/24/21 09:45 [facility] (Rec: 08/30/21 09:42 [facility] [id number]) Palpation Assessment Location plantar fascia Palpation Location bilateral plantar fascia Palpation Findings Soft Tissue Tightness, Tenderness Palpation Details guarded and tight plantar fascia bilaterally PT-OP-K Range of Motion Start: 08/24/21 09:51 Freq: Status: Active Protocol: Document 08/24/21 09:45 [facility] (Rec: 08/30/21 09:42 [facility] [id number]) Ankle and Foot Goniometric Range of Motion Ankle and Foot Right Dorsiflexion with Knee Flexed 2 Dorsiflexion with Knee Extended 2 Plantarflexion 6 Inversion 5 Eversion 4 Comments very poor limited ankle mobility Left Dorsiflexion with Knee Flexed 3 Dorsiflexion with Knee Extended 2 Plantarflexion 5 Inversion 5 Eversion 4 Comments very poor limited ankle mobility Ankle and Foot ROM Limitations ROM Limitations Soft Tissue Tightness, Contracture,Pain Comments pt is very limited in ankle and foot ROM, the scleroderma has restricted her joint ROM so much that she only has a few degrees in all planes for her ankle. I am able to mobilize her metatarsals with very limited ROM, tightness in the calf and and plantar fascia B also limits ROM PT-OP-Q Treatments Start: 08/30/21 14:15 Freq: Status: Active Protocol: Document 10/31/22 13:38 [facility] (Rec: 10/31/22 13:40 [facility] [id number]) Cardio Equipment Recumbent Stepper (Sci-Fit) Duration (Minutes) 15 Resistance 5 PT-OP-R Modalities Start: 07/19/22 17:34 Freq: Status: Active Protocol: Document 07/19/22 13:48 [facility] (Rec: 07/19/22 17:35 [facility] [id number]) Ultrasound Therapy Treatment Right plantar fascia Treatment Duration (minutes) 8 Patient Position Sitting Coupling Medium Ultrasound Gel Applicator Size (cm2) 5 Mode Setting Continuous Duty Cycle 100% Intensity Setting (w/cm2) 1.5 PT-OP-T Assessment and Plan Start: 08/24/21 09:51 Freq: Status: Active Protocol: Document 10/31/22 13:38 [facility] (Rec: 10/31/22 13:40 [facility] [id number]) Physical Therapy Assessment Assessment Summary Assessment Fay presented with extremely dry cracked heels today. She has a new referral for vestibular assessment that she will schedule. She has been able to use her stair stepper at home and feels she is getting better overall with this. Physical Therapy Plan Frequency and Duration Frequency of Treatment 1x/Week Duration of treatment (weeks) 4 Plan of Care Start Date 10/11/22 Plan of Care End Date 11/13/22 Next Visit Focus/Plan Next Note Type Treatment Note Next Visit Plan DC PT, pt is able to schedule an additional visit since POC expires 11/13/22. She has no further visits scheduled at this time.
--- NOTE | 2022-11-12 18:14 | PT.OTN ---
Current Diagnoses Systemic sclerosis, unspecified (11/12/22) Unsteadiness on feet (11/12/22) Physical Therapy Treatment Note PT-OP-A Visit Information Start: 08/24/21 09:51 Freq: Status: Active Protocol: Document 11/12/22 16:07 NBM (Rec: 11/12/22 18:13 NBM [id number]) Out-Patient Physical Therapy Visit Information Visit Information Visit Type Treatment Note Visit Start Time 16:06 Visit Stop Time 16:54 Total Visit Minutes 48 Visit Number 58 Number of INFORMATION COORDINATOR Visits 1 Evaluation Information Evaluation Date 08/24/21 PT-OP-B Current Condition Start: 08/24/21 09:51 Freq: Status: Active Protocol: Document 08/24/21 09:45 [facility] (Rec: 08/24/21 09:56 [facility] [id number]) Current Condition History of Current Condition 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 She also notes that despite going through pulmonary rehab she still feels short of breath all the time. 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, PHM also includes encephalopathy, hair loss, diabetes, CO in 2019 with 2 stents placed Prior Treatments and Tests Pt has recieved PT in the past for ankle and foot ROM, balance, gait training, MFR and manual therapy techniques to improve ankle and foot mobility Treatment Goals Patient/Caregiver Goals Pts goals include improving ankle and foot mobility and decreasing stiffness and pain PT-OP-C Subjective Start: 08/24/21 09:51 Freq: Status: Active Protocol: Document 11/12/22 16:07 NBM (Rec: 11/12/22 18:13 NBM [id number]) OP-PT Subjective Patient Comments Patient Comments Pt reports when she turns her head she has a tremor in her neck, and she feels nauseous and doesn't feel like eating, and you don't feel good when you don't eat. She thinks the sore spot on her L foot is from her orthotic rubbing on it and took it out a few days ago. PT-OP-F Manual Assessment Start: 08/30/21 13:57 Freq: Status: Active Protocol: Document 08/24/21 09:45 [facility] (Rec: 08/30/21 14:01 [facility] [id number]) Manual Assessments Soft Tissue Assessment Soft Tissue Mobility Assessment scleraderma throughout the calf and plantar fascia making tissue mobililty very difficult. Pt responds well to MFR and manual stretching PT-OP-J Posture/Palpation/Skin Start: 08/24/21 09:51 Freq: Status: Active Protocol: Document 08/24/21 09:45 [facility] (Rec: 08/30/21 09:42 [facility] [id number]) Palpation Assessment Location plantar fascia Palpation Location bilateral plantar fascia Palpation Findings Soft Tissue Tightness, Tenderness Palpation Details guarded and tight plantar fascia bilaterally PT-OP-K Range of Motion Start: 08/24/21 09:51 Freq: Status: Active Protocol: Document 08/24/21 09:45 [facility] (Rec: 08/30/21 09:42 [facility] [id number]) Ankle and Foot Goniometric Range of Motion Ankle and Foot Right Dorsiflexion with Knee Flexed 2 Dorsiflexion with Knee Extended 2 Plantarflexion 6 Inversion 5 Eversion 4 Comments very poor limited ankle mobility Left Dorsiflexion with Knee Flexed 3 Dorsiflexion with Knee Extended 2 Plantarflexion 5 Inversion 5 Eversion 4 Comments very poor limited ankle mobility Ankle and Foot ROM Limitations ROM Limitations Soft Tissue Tightness, Contracture,Pain Comments pt is very limited in ankle and foot ROM, the scleroderma has restricted her joint ROM so much that she only has a few degrees in all planes for her ankle. I am able to mobilize her metatarsals with very limited ROM, tightness in the calf and and plantar fascia B also limits ROM PT-OP-Q Treatments Start: 08/30/21 14:15 Freq: Status: Active Protocol: Document 11/12/22 16:07 NBM (Rec: 11/12/22 18:13 NBM [id number]) Cardio Equipment Recumbent Stepper (Sci-Fit) Duration (Minutes) 16 Resistance 5.6 Manual Therapy Treatment Soft Tissue Mobilization Upper, middle traps Body Location B Mobilization Type Cross-Friction,Oscillations, Rolling,Sustained Pressure Intensity/Depth Moderate Body Position Sitting Comments cued slow breaths and worked on diaphragmatic breathing in sitting B patellar tendon Body Location B Mobilization Type Cross-Friction Intensity/Depth Moderate Body Position Sitting Comments during gastroc stretch 1 Body Location B anterior and posterior shins /feet Mobilization Type Myofascial Release Intensity/Depth Superficial Body Position Sitting Comments PROM was performed at the ankles and feet Manual Techniques 2 Type manual stretching for the gastroc/soleus complex Body Location B Body Position Sitting Comments long sitting 1 Type PROM stretches were performed at B ankles and feet, manual stretching Body Location B PF/ DF, IV/EV Body Position Sitting Comments improving ankle ROM with manual stretches Self-Care/Home Management Treatment Education Patient Education Pain Management,Safety Other Education Discussed pt's diagnosis of depression and how it is currently impacting pt's life. Pt acknowledges lack of sleep and appetite and mentally exhausted with their body. Pt currently denies suicidal ideation. Educated on relaxation techniques with positive self-talk/affirmation : seated, eyes closed, arms outstretched in T for 3 deep breaths>self-hug w/ gentle thoracic rotation bhavna>Thank you body for all yuou did today. Positive feedback response. PT-OP-R Modalities Start: 07/19/22 17:34 Freq: Status: Active Protocol: Document 07/19/22 13:48 [facility] (Rec: 07/19/22 17:35 [facility] [id number]) Ultrasound Therapy Treatment Right plantar fascia Treatment Duration (minutes) 8 Patient Position Sitting Coupling Medium Ultrasound Gel Applicator Size (cm2) 5 Mode Setting Continuous Duty Cycle 100% Intensity Setting (w/cm2) 1.5 PT-OP-T Assessment and Plan Start: 08/24/21 09:51 Freq: Status: Active Protocol: Document 11/12/22 16:07 NBM (Rec: 11/12/22 18:13 NB [id number]) Physical Therapy Assessment Goals 3 Impairment LE, foot and ankle pain rated 7/10 10/11/22- pain; pt feels her pain improving 5/10 Residential Goal (LTG) With manual therapy techniques , ROM exercises, stretches, and mobility exercises Fay has a reduction in pain by 2-3 numbers on the pain scale good progress LTG Duration 12 weeks 2 Impairment B Calf and plantar fascia tightness and pain limiting pts ability to walk Short Term Goal (STG) Fay is educated on stretches and manual techniques she can do at home to help with plantar fascia and calf tightness As of 11/15/21 Fay has been educated on stretches to work on at home to help with plantar fascia tightness and calf tightness Good progress STG Duration 4 weeks Residential Goal (LTG) Fay notes a overall reduction in tightness decreasing her pain with walking some progress LTG Duration 12 weeks 1 Impairment Poor ankle and foot ROM affecting balance and gait Rehabilitation Services Aide Goal (LTG) Fya is able to improve her ankle ROM by 5 degrees into DF to assist with gait and balance No custodial change with ankle ROM LTG Duration 12 weeks Assessment Summary Assessment Fay presents to this last PT appt today with noticeably decreased muscle mass bilaterally on LEs since last seen by this INFORMATION COORDINATOR 10/08/22, and she states her line locator stated at recent PFT visit that she lost 13 pounds compared to last year. Discussed pt's diagnosis of depression and how it is currently impacting pt's life. Pt acknowledges lack of sleep and appetite and mentally exhausted with their body. Pt currently denies suicidal ideation. Educated on relaxation techniques with positive self-talk/affirmation with positive feedback response and Fay is encouraged to notify PCP of nausea affecting appetite and weight loss. She acknowledges dehydration and is encouraged to drink more water, including prior to using recumbent stepper end of session for 16 min at level 5.6. She continues to have sore spot on plantar aspect of L foot and believes this is due to her orthotic rubbing against it and has removed the orthotic and reports improvement. Fay has a new referral for vestibular assessment that she will schedule. Physical Therapy Plan Frequency and Duration Frequency of Treatment 1x/Week Duration of treatment (weeks) 4 Plan of Care Start Date 10/11/22 Plan of Care End Date 11/13/22 Therapeutic Interventions Therapeutic Interventions Balance Training,Gait Training ,Home Exercise Program,Joint Mobilizations,Manual Therapy, Patient/Caregiver Education, Self-Care/Home Management,Soft Tissue Mobilization, Therapeutic Exercises Next Visit Focus/Plan Next Note Type Treatment Note Next Visit Plan DC PT. She has no further visits scheduled at this time and POC expires 11/13/22.
== END 2022-12-28 11:53 | disposition home or self-care (01) ==
LOC: PHYS 16:00
PROVIDERS: Family Provider Internal Medicine; PCP Internal Medicine; Referring Provider Internal Medicine; Visit Provider Internal Medicine
DX: M34.9 Systemic sclerosis, unspecified (principal); R26.81 Unsteadiness on feet
CPT/HCPCS: 97035; 97110; 97112; 97116; 97140; 97161

== ENCOUNTER → 2022-11-21 12:30 | Outpatient (CLI) | payer MEDICARE, MEDICAID, SELFPAY ==
[2022-07-04 09:50] VITALS: BMI 24.4
[2022-11-21 14:34] LABS: Alanine Aminotransferase 18 IU/L (<35); Albumin 3.7 g/dL (3.5-5.0); Albumin Globulin Ratio 0.8 (1.0-2.8); Alkaline Phosphatase 180 U/L (38-126); Aspartate Aminotransferase 50 IU/L (14-36); BUN Creatinine Ratio 24.5 (6-22); Bilirubin Total 1.2 mg/dL (0.2-1.3); Blood Urea Nitrogen 24 mg/dL (7-17); Calcium 8.5 mg/dL (8.4-10.2); Carbon Dioxide 29 mmol/L (22-32); Chloride 102 mmol/L (98-107); Estimated Glomerular Filt Rate > 60 mL/min (>60); Globulin 4.4 g/dL (1.7-4.1); Glucose 186 mg/dL (80-110); HEMOLYSIS < 15 (0-50); Magnesium 1.8 mg/dL (1.6-2.3); Potassium 4.3 mmol/L (3.4-5.1); Sodium 139 mmol/L (137-145); Total Protein 8.1 g/dL (6.3-8.2)
[2022-11-24 10:36] LABS: Cholesterol, Total 143 mg/dL (100-199); HDL-Cholesterol 71 mg/dL (>39); HDL-Particle (Total) 21.9 umol/L (>=30.5); LDL Particle 539 nmol/L (<1000); LDL Size 22.4 nm (>20.5); LDL-Cholsterol 54 mg/dL (0-99); LP-IR Score <25 (<=45); Small LDL- Particle <90 nmol/L (<=527); Triglycerides 98 mg/dL (0-149)
== END ==
PROVIDERS: Family Provider Internal Medicine; PCP Internal Medicine; Referring Provider Specialist; Visit Provider Specialist
DX: I10 Essential (primary) hypertension (principal); E78.2 Mixed hyperlipidemia
CPT/HCPCS: 36415; 80053; 80061; 83704; 83735

== ENCOUNTER 2023-01-18 22:27 | Emergency (ER) | payer MEDICARE, MEDICAID, SELFPAY ==
[2022-07-04 09:50] VITALS: BMI 24.4
[2023-01-18 22:34] VITALS: BP 133/64; O2SAT 86
[2023-01-18 22:38] VITALS: BP 133/64; PULSE 61; RESP 18; TEMP 36.6; O2SAT 98; BMI 23.1
--- NOTE | 2023-01-18 22:44 | DI.RAD.S_ITS ---
PROCEDURE: XR CHEST 1V INDICATIONS: chest pain TECHNIQUE: One view of the chest was acquired. COMPARISON: [facility], CR, XR CHEST 1V, 04/01/2022, 12:02. FINDINGS: Surgical changes and devices: None. Lungs and pleura: Unchanged right costophrenic angle blunting likely scarring. Linear opacities are also unchanged left base likely. Mediastinum: Mediastinal contours appear normal. Heart size is enlarged. Bones and chest wall: No suspicious bony lesions. Overlying soft tissues appear unremarkable. IMPRESSION: No acute pulmonary process. Dictated by: Shaneka Gilman M.D. on 01/18/2023 at 23:30 Approved by: Shaneka Gilman M.D. on 01/18/2023 at 23:30
--- NOTE | 2023-01-18 22:53 | ED_ITS ---
HPI - Extremity Problem General Chief complaint: Extremity Problem,Nontraumatic Stated complaint: Leg swelling Time Seen by Provider: 01/18/23 22:36 Source: patient Mode of arrival: Ambulatory History of Present Illness HPI Narrative: 67-year-old female with history of AML (in remission), chronic kidney disease, hyperparathyroidism, hypothyroidism, hyperlipidemia, coronary artery disease, levrp-goxeke-knyz disease, anemia, restrictive lung disease, scleroderma, diabetes presents at the request of her him specialist for evaluation of right leg swelling for a few weeks. She denies any trauma or injury. She has had no fever or chills. She denies any new medications or dietary change. She states that she noticed some swelling on the lateral portion of her leg a few weeks ago and denies it is worsening or changing at all but is certainly not getting better. It hurts with palpation and with attempts at ambulation. She states that she is chronically dizzy and states that maybe she is feeling a little more dizzy than normal on occasion but not all the time. She states that she often times is more dizzy upon standing Related Data Home Medications Medication Instructions Recorded Confirmed levothyroxine 50 mcg tablet 25 mcg PO DAILY ##0 07/17/11 12/21/22 cinacalcet 30 mg tablet (Sensipar) 30 mg PO DAILY ##0 12/16/16 12/21/22 rifaximin 550 mg tablet 550 mg PO BID 30 days #60 tabs 06/25/18 12/21/22 aspirin 81 mg tablet,delayed 81 mg PO DAILY 08/12/19 12/21/22 release metoprolol succinate 25 mg 25 mg PO DAILY 08/12/19 12/21/22 tablet,extended release 24 hr nitroglycerin 0.4 mg sublingual 0.4 mg sublingual PRN PRN chest 08/12/19 tablet pain insulin regular hum U-500 conc 500 50 unit SUBCUT TID 01/20/20 12/21/22 unit/mL(3 mL) subcut pen (Humulin R U-500 (Conc) Insulin Kwikpen) atorvastatin 80 mg tablet 80 mg PO DAILY 11/06/21 12/21/22 cholecalciferol (vitamin D3) 25 25 mcg PO DAILY 11/06/21 12/21/22 mcg (1,000 unit) tablet insulin lispro 200 unit/mL (3 mL) 50 unit SUBCUT DAILY 11/06/21 12/21/22 subcutaneous pen (Humalog KwikPen U-200 Insulin) olopatadine 0.1 % eye drops 1 drp EYE-BOTH BID 11/06/21 12/21/22 spironolactone 50 mg tablet 50 mg PO DAILY 11/06/21 12/21/22 pen needle, diabetic 31 gauge x #50 ea 02/15/22 12/21/22 3/16 (BD Ultra-Fine Mini Pen Needle) pen needle, diabetic 32 gauge x #100 ea 02/15/22 12/21/22 1/6 (NovoFine Plus) alcohol swabs (Alcohol Prep Pads) 1 pad topical TID PRN 12/21/22 12/21/22 blood sugar diagnostic (OneTouch #10 ea 12/21/22 12/21/22 Verio test strips) desvenlafaxine succinate 25 mg 25 mg PO DAILY 12/21/22 12/21/22 tablet,extended release 24 hr empty container (BD Sharps ea miscellaneous 12/21/22 12/21/22 Calculating Machine Operator) magnesium oxide 400 mg (241.3 mg 400 mg PO DAILY 12/21/22 12/21/22 magnesium) tablet risankizumab-rzaa 150 mg/mL 150 mg SUBCUT Q12W 12/21/22 12/21/22 subcutaneous pen injector (Micheal) triamcinolone acetonide 0.05 % 1 applic topical BID 12/21/22 12/21/22 topical ointment Previous Rx's Medication Instructions Recorded desvenlafaxine 100 mg 100 mg PO DAILY #90 tabs 08/22/22 tablet,extended release 24 hr Disabled Parking Permit 1 ea Not Applicable DAILY #1 ea 12/21/22 bupropion HCl 75 mg tablet 75 mg PO DAILY #30 tabs 01/08/23 cephalexin 500 mg capsule 500 mg PO Q6H 7 days #28 caps 01/19/23 Allergies Allergy/AdvReac Type Severity Reaction Status Date / Time hydrocodone Allergy ITCHING Verified 01/18/23 22:38 oxycodone Allergy ITCHING Verified 01/18/23 22:38 propofol AdvReac Unknown Verified 01/18/23 22:38 morphine AdvReac Vomiting Verified 01/18/23 22:38 Pall Blood Filter Allergy Severe Anaphylaxis Uncoded 12/21/22 09:43 Review of Systems Review of Systems Narrative: GENERAL: Denies chills, fatigue, malaise, fever, sweats. HEENT: Denies sinus pain, ear pain, sore throat, difficulty swallowing, dizziness. RESPIRATORY: Denies dyspnea, cough, wheezing, hemoptysis, sputum. CARDIOVASCULAR: Denies chest pain, palpitations, orthopnea, edema, GASTROINTESTINAL: Denies nausea, vomiting, abdominal pain, diarrhea, constipation, melena. : Denies dysuria, frequency, incontinence, hematuria, urinary retention. MUSCULOSKELETAL: See HPI SKIN: See HPI NEUROLOGIC: Denies weakness, headache, numbness, change in speech, confusion, seizures, incoordination. PSYCHIATRIC: No concerning psychosocial issues. 12 point review of systems is negative except for those stated above Patient History Medical History Acquired hypothyroidism AML (acute myeloid leukemia) in remission Carotid stenosis Chronic kidney disease, stage 3a Cirrhosis Concussion Coronary artery disease Decubitus ulcer of coccyx Depression Gallstone pancreatitis Generalized anxiety disorder Generalized anxiety disorder GVHD (graft versus host disease) Hepatic encephalopathy History of ST elevation myocardial infarction (STEMI) History of upper gastrointestinal bleeding Hyperparathyroidism, secondary renal Insulin dependent diabetes mellitus Mixed hyperlipidemia Obsessive compulsive disorder Psoriasis Restrictive lung disease Scleroderma Thrombocytopenia Surgical History History of bone marrow transplant History of colonoscopy History of coronary artery stent placement Family History Father Heart disease S/P CABG x 4 Hypertension Mother Gallstones Brother No significant medical problems Sister Diabetes mellitus Social History marital status: unknown household members: none Smoking Status: Never smoker alcohol intake: former substance use type: does not use Smoking Status: Never smoker alcohol intake frequency: 0-2 drinks per day Substance Use Type: does not use Exam Narrative Exam Narrative: GENERAL: [67] year old patient appears stated age. Well-developed patient, in mild distress. HEAD: Atraumatic. Normocephalic. EYES: Pupils equal round and reactive. Extraocular motions intact. No scleral icterus. No injection or drainage. ENT: Nose without bleeding, purulent drainage. Throat without erythema, tonsillar hypertrophy or exudate. Airway patent. NECK: Trachea midline. Non tender CARDIOVASCULAR: Regular rate and rhythm without murmurs, gallops, or rubs. RESPIRATORY: Clear to auscultation. Breath sounds equal bilaterally. No wheezes, rales, or rhonchi. GASTROINTESTINAL: Abdomen soft, non-tender, nondistended. EXTREMITIES: Bilateral lower extremities without obvious swelling or new erythema, skin is tense and tender to palpation BACK: Nontender without deformity or crepitance. No flank tenderness. NEURO: AOx3. SKIN: No rash or erythema of visible areas Initial Vital Signs Initial Vital Signs: Vital Signs Temperature 97.9 F 01/18/23 22:38 Pulse Rate 61 01/18/23 22:38 Respiratory Rate 18 01/18/23 22:38 Blood Pressure 133/64 01/18/23 22:38 Pulse Oximetry 98 01/18/23 22:38 Oxygen Delivery Method Room Air 01/18/23 22:38 Course Orders Ordered: ED Orders 01/18/23 22:44 XR chest 1V Stat EKG-12 Lead Stat 01/18/23 22:51 Complete Blood Count AUTO DIFF Stat Comprehensive Metabolic Panel Stat Lipase Stat Magnesium Stat PTT Partial Thromboplastin Nelson Stat Prothrombin Time INR Stat Troponin & CK Cardiac Panel Stat 01/18/23 23:36 US periph venous low extrem rt Stat Discontinued Medications Aspirin (Aspirin 81 Mg Chew Tab) 324 mg PO NOW ONE Stop: 01/18/23 22:44 Last Admin: 01/18/23 23:23 Dose: Not Given Cefazolin Sodium (Cephalexin 250 Mg Cap Prepack) 1 bottle MISC SEEINSTR ONE Stop: 01/19/23 00:19 Vital Signs Vital signs: Vital Signs - 8 hr 01/18/23 22:38 Temperature 97.9 F Pulse Rate 61 Respiratory Rate 18 Blood Pressure 133/64 Pulse Oximetry 98 Oxygen Delivery Method Room Air MDM - Extremity (Nontraumatic) Lab Data 01/18/23 22:51 01/18/23 22:51 Labs: Lab Results 01/18/23 01/18/23 01/18/23 Range/Units 22:51 22:51 22:51 WBC 4.8 (4.5-11.0) X10^3/uL RBC 4.35 (4.0-5.2) X10^6/uL Hgb 11.8 L (12.0-16.0) g/dL Hct 36.3 (36-46) % MCV 83.5 (80-100) fL MCH 27.2 (26-34) PG MCHC 32.6 (30-36) % RDW 18.2 H (11.6-14.8) % Plt Count 73 L (150-400) X10^3/uL Neut % (Auto) 76.8 H (50-75) % Lymph % (Auto) 7.8 L (25-40) % Mccracken % (Auto) 12.3 (3-14) % Eos % (Auto) 2.0 (2-4) % Baso % (Auto) 1.1 (0-2) % Neut # (Auto) 3700 (2744-1185) /uL Lymph # (Auto) 400 L (2870-3202) /uL M[place]racken # (Auto) 600 (0-900) /uL Eos # (Auto) 100 (0-450) /uL Baso # (Auto) 100 (0-100) /uL PT 12.7 (10.1-12.7) SECONDS INR 1.1 (0.9-1.3) APTT 33 (26-36) SECONDS Sodium 138 (137-145) mmol/L Potassium 4.1 (3.4-5.1) mmol/L Chloride 100 (98-107) mmol/L Carbon Dioxide 34 H (22-32) mmol/L BUN 30 H (7-17) mg/dL Creatinine 1.03 (0.52-1.04) mg/dL Estimated GFR 59 L (>60) mL/min BUN/Creatinine Ratio 29.1 H (6-22) Glucose 176 H (80-110) mg/dL Calcium 9.8 (8.4-10.2) mg/dL Magnesium 2.2 (1.6-2.3) mg/dL Total Bilirubin 1.2 (0.2-1.3) mg/dL AST 40 H (14-36) IU/L ALT 18 (<35) IU/L Alkaline Phosphatase 177 H (38-126) U/L Total Creatine Kinase 39 (30-135) U/L Troponin I < 0.012 (0.01-0.034) ng/mL Total Protein 8.3 H (6.3-8.2) g/dL Albumin 3.8 (3.5-5.0) g/dL Globulin 4.5 H (1.7-4.1) g/dL Albumin/Globulin Ratio 0.8 L (1.0-2.8) Lipase 168 (23-300) U/L MDM Narrative Medical decision making narrative: [67] year old patient presents with pain and swelling of right lower extremity in the absence of injury Multiple etiologies for patient's symptoms considered including, but not limited to: [DVT versus cellulitis versus other] Prior Charts reviewed in our EMR Primary Historian: patient Labs reviewed and interpreted by myself: No leukocytosis or left shift, no signs of anemia, electrolytes and renal function at baseline Imaging reviewed: Ultrasound demonstrates no clot Patient's history and physical are very reassuring. There is no evidence of DVT on imaging, there is minimal swelling and some possible increased erythema in the right leg. Given lack of injury, no evidence of DVT cellulitis is co nsidered most likely. Antibiotics administered Findings and discharge diagnosis discussed with patient/family followed by verbalization of understanding Return precautions discussed with patient/family whom verbalize understanding of diagnosis and plan Discharge Plan Departure Patient Disposition: Home Clinical Impression: Pain in right lower leg, Cellulitis Instructions: DI for Cellulitis -- Adult Activity Restrictions/Additional Instructions: *You have been diagnosed with [right leg pain likely due to mild infection. Ultrasound showed no clot. Otherwise your history and physical exam as well as labs and imaging are reassuring] *What to do: *Please continue to take your regular medications as directed. [x ] New medication prescriptions sent to your pharmacy: [ [facility]] [ ] New medication written as a paper prescription [ ] No new medications given *Please follow up with your primary care provider in 2-3 days, call for an appointment. Let them know you were seen in the Emergency Department and that we ask that you be seen in follow up. We will electronically transmit a record of today's note if your PCP is in our system *If you do not have a primary care provider please contact the [facility] Resource line at [phone]. They will ask some questions about your medical history and help get you set up with a doctor in the community. *Return to Emergency Department if you should have any new, worsening or concerning symptoms, such as [fever greater than 101 F, shaking chills, worsening pain, persistent vomiting or other bothersome symptoms] Prescriptions: New cephalexin 500 mg capsule 500 mg PO Q6H 7 Days Qty: 28 0RF No Action rifaximin 550 mg tablet 550 mg PO BID 30 Days Qty: 60 Patient Comments: takes at noon and midnight levothyroxine 50 mcg Tablet 25 mcg PO DAILY Qty: 0 Patient Comments: take at about noon cinacalcet [Sensipar] 30 MG tablet 30 mg PO DAILY Qty: 0 Patient Comments: takes at about midnight aspirin 81 mg tablet,delayed release (DR/EC) 81 mg PO DAILY Patient Comments: takes at about noon metoprolol succinate 25 mg tablet extended release 24 hr 25 mg PO DAILY Patient Comments: take at about noon nitroglycerin 0.4 mg tablet, sublingual 0.4 mg SL PRN PRN (Reason: chest pain) Patient Comments: has never taken Rx Instructions: one tab Q5 minutes, call 911 if pain persists (up to three tablets). Humulin R U-500 (Conc) Kwikpen 500 unit/mL (3 mL) insulin pen 50 unit subcut TID desvenlafaxine 100 mg tablet extended release 24 hr 100 mg PO DAILY MDD 125mg Qty: 90 0RF Patient Comments: takes at about noon bupropion HCl 75 mg tablet 75 mg PO DAILY Qty: 30 2RF Skyrizi 150 mg/mL pen injector 150 mg SUBCUT Q12W Patient Comments: INJECT 150 MG UNDER THE SKIN ONCE EVERY TWELVE WEEKS (MAINTENANCE DOSE) magnesium oxide 400 mg (241.3 mg magnesium) tablet 400 mg PO DAILY Patient Comments: TAKE ONE TABLET BY MOUTH ONE TIME DAILY alcohol swabs [Alcohol Prep Pads] Pads, Medicated 1 pad topical TID PRN (DME) OneTouch Verio test strips Strip See Rx Instructions .ROUTE .MEDSUPPLY Qty: 10 Patient Comments: USE WHEN [facility] IS NOT WORKING 4 TIMES A DAY Rx Instructions: As directed BD Sharps Calculating Machine Operator Misc miscellaneous Patient Comments: USE TO DISPOSE OF NEEDLES/SYRINGES desvenlafaxine succinate 25 mg tablet extended release 24 hr 25 mg PO DAILY triamcinolone acetonide 0.05 % ointment 1 applic topical BID Disabled Parking Permit 1 ea Not Applicable DAILY Qty: 1 0RF spironolactone 50 mg tablet 50 mg PO DAILY Patient Comments: Take ONE tablet (50 mg total) by mouth daily, at midnight. atorvastatin 80 mg tablet 80 mg PO DAILY Patient Comments: take at about midnight Humalog KwikPen Insulin 200 unit/mL (3 mL) insulin pen 50 unit SUBCUT DAILY cholecalciferol (vitamin D3) 25 mcg (1,000 unit) tablet 25 mcg PO DAILY Patient Comments: takes at about noon olopatadine 0.1 % drops 1 drp EYE-BOTH BID Patient Comments: Instill 1 drop in the both eyes twice daily (DME) pen needle, diabetic [BD Ultra-Fine Mini Pen Needle] 31 gauge x 3/16 needle See Rx Instructions .ROUTE .MEDSUPPLY Qty: 50 Rx Instructions: As directed (DME) NovoFine Plus 32 gauge x 1/6 needle See Rx Instructions .ROUTE .MEDSUPPLY Qty: 100 Patient Comments: USE UP TO 6 TIMES A DAY TO INJECT INSULIN Rx Instructions: As directed Referrals: Timur Schwartz MD [Primary Care Provider] - Stand Alone Forms: Patient Portal/API
[2023-01-18 23:00] VITALS: BP 122/57; PULSE 58; O2SAT 99
[2023-01-18 23:06] LABS: Add Manual Diff / Slide Review NO; Basophils Absolute Auto 100 /uL (0-100); Basophils Percent Auto 1.1 % (0-2); Eosinophils Absolute Auto 100 /uL (0-450); Hematocrit 36.3 % (36-46); Hemoglobin 11.8 g/dL (12.0-16.0); Lymphocytes Absolute Auto 400 /uL (1100-4500); Lymphocytes Percent Auto 7.8 % (25-40); Mean Corpuscular HGB Conc 32.6 % (30-36); Mean Corpuscular Hemoglobin 27.2 PG (26-34); Mean Corpuscular Volume 83.5 fL (80-100); Monocytes Absolute Auto 600 /uL (0-900); Monocytes Percent Auto 12.3 % (3-14); Neutrophils Absolute Auto 3700 /uL (1500-7000); Neutrophils Percent Auto 76.8 % (50-75); Platelet Count 73 X10^3/uL (150-400); Red Blood Cell Count 4.35 X10^6/uL (4.0-5.2); Red Cell Distribution Width 18.2 % (11.6-14.8); White Blood Cell Count 4.8 X10^3/uL (4.5-11.0)
[2023-01-18 23:08] LABS: INR 1.1 (0.9-1.3); Prothrombin Time 12.7 SECONDS (10.1-12.7)
[2023-01-18 23:10] LABS: PTT Partial Thromboplastin Tim 33 SECONDS (26-36)
[2023-01-18 23:12] LABS: Alanine Aminotransferase 18 IU/L (<35); Albumin 3.8 g/dL (3.5-5.0); Albumin Globulin Ratio 0.8 (1.0-2.8); Alkaline Phosphatase 177 U/L (38-126); Aspartate Aminotransferase 40 IU/L (14-36); BUN Creatinine Ratio 29.1 (6-22); Bilirubin Total 1.2 mg/dL (0.2-1.3); Blood Urea Nitrogen 30 mg/dL (7-17); Calcium 9.8 mg/dL (8.4-10.2); Carbon Dioxide 34 mmol/L (22-32); Chloride 100 mmol/L (98-107); Creatine Kinase 39 U/L (30-135); Estimated Glomerular Filt Rate 59 mL/min (>60); Globulin 4.5 g/dL (1.7-4.1); Glucose 176 mg/dL (80-110); HEMOLYSIS < 15 (0-50); Lipase 168 U/L (23-300); Magnesium 2.2 mg/dL (1.6-2.3); Potassium 4.1 mmol/L (3.4-5.1); Sodium 138 mmol/L (137-145); Total Protein 8.3 g/dL (6.3-8.2)
[2023-01-18 23:24] LABS: Troponin I < 0.012 ng/mL (0.01-0.034)
[2023-01-18 23:30] VITALS: PULSE 60; RESP 22; O2SAT 98
[2023-01-18 23:31] VITALS: BP 129/61; PULSE 60; RESP 23; O2SAT 99
--- NOTE | 2023-01-18 23:36 | DI.US.S_ITS ---
PROCEDURE: US PERIPH VENOUS LOW EXTREM RT INDICATIONS: PAIN, EDEMA TECHNIQUE: Real-time imaging, as well as color and pulse Doppler interrogation, were performed of the lower extremity deep veins from the inguinal ligament to the popliteal fossa. COMPARISON: None. FINDINGS: The common femoral, femoral and popliteal veins are normally compressible, and free of intraluminal thrombus. Color and pulse Doppler demonstrate normal phasic intraluminal flow. There is normal augmentation response to distal compression maneuver. IMPRESSION: No deep venous thrombosis. Dictated by: Shaneka Gilman M.D. on 01/19/2023 at 0:42 Approved by: Shaneka Gilman M.D. on 01/19/2023 at 0:42
[2023-01-19] VITALS: BP 125/57; PULSE 58; O2SAT 99
[2023-01-19] MEDS: cephALEXin 250 MG CAP PREPACK 1 BOTTLE MISC (00:31)
== END 2023-01-19 00:35 | disposition home or self-care (01) ==
PROVIDERS: Emergency Provider Emergency Medicine; Family Provider Internal Medicine; PCP Internal Medicine
DX: L03.115 Cellulitis of right lower limb (principal); M79.604 Pain in right leg; R07.9 Chest pain, unspecified
CPT/HCPCS: 36415; 71045; 80053; 82550; 83690; 83735; 84484; 85025; 85610; 85730; 93005; 93010; 93971; 99283; 99284

== ENCOUNTER → 2023-05-21 17:04 | Outpatient (CLI) | payer MEDICARE, MEDICAID, SELFPAY ==
[2023-01-21 15:46] VITALS: BMI 24.4
[2023-05-21 18:40] LABS: Alanine Aminotransferase 13 IU/L (<35); Albumin 3.6 g/dL (3.5-5.0); Albumin Globulin Ratio 0.8 (1.0-2.8); Alkaline Phosphatase 134 U/L (38-126); Aspartate Aminotransferase 36 IU/L (14-36); BUN Creatinine Ratio 21.1 (6-22); Bilirubin Total 0.8 mg/dL (0.2-1.3); Blood Urea Nitrogen 19 mg/dL (7-17); Calcium 10.5 mg/dL (8.4-10.2); Carbon Dioxide 30 mmol/L (22-32); Chloride 99 mmol/L (98-107); Estimated Glomerular Filt Rate > 60 mL/min (>60); Globulin 4.3 g/dL (1.7-4.1); Glucose 126 mg/dL (80-110); HEMOLYSIS < 15 (0-50); Magnesium 1.9 mg/dL (1.6-2.3); Potassium 4.7 mmol/L (3.4-5.1); Sodium 134 mmol/L (137-145); Total Protein 7.9 g/dL (6.3-8.2)
== END ==
PROVIDERS: Family Provider Internal Medicine; PCP Internal Medicine; Referring Provider Specialist; Visit Provider Specialist
DX: I10 Essential (primary) hypertension (principal); E78.2 Mixed hyperlipidemia
CPT/HCPCS: 36415; 80053; 83735

== ENCOUNTER 2023-06-11 15:15 | Outpatient (RCR) | payer MEDICARE, MEDICAID, SELFPAY ==
[2023-01-21 15:46] VITALS: BMI 24.4
--- NOTE | 2023-02-14 17:00 | PT.OIE ---
Current Diagnoses Stiffness of right ankle, not elsewhere classified (02/14/23) Stiffness of left ankle, not elsewhere classified (02/14/23) Systemic sclerosis, unspecified (02/14/23) Muscle weakness (generalized) (02/14/23) Unsteadiness on feet (02/14/23) Past Medical History (Last Updated 01/24/23 @ 17:05 by Timur Schwartz MD) Acquired hypothyroidism AML (acute myeloid leukemia) in remission Carotid stenosis Chronic kidney disease, stage 3a Cirrhosis Concussion Coronary artery disease Decubitus ulcer of coccyx Depression Gallstone pancreatitis Generalized anxiety disorder Generalized anxiety disorder GVHD (graft versus host disease) Hepatic encephalopathy History of ST elevation myocardial infarction (STEMI) History of upper gastrointestinal bleeding Hyperparathyroidism, secondary renal Insulin dependent diabetes mellitus Mixed hyperlipidemia Obsessive compulsive disorder Psoriasis Restrictive lung disease Scleroderma Thrombocytopenia Venous (peripheral) insufficiency Past Surgical History (Last Reviewed 01/24/23 @ 17:03 by Timur Schwartz MD) History of bone marrow transplant History of colonoscopy History of coronary artery stent placement Visit Care Team Role Provider Type Timur Schwartz MD Attending Provider Physician Family Provider Primary Care Provider Referring Provider Specialty: Internal Medicine Address: [address] [place] [address] Email: [email or web address] Therapy Initial Evaluation PT-OP-A Visit Information Start: 02/14/23 14:58 Freq: Status: Active Protocol: Document 02/14/23 15:00 [facility] (Rec: 02/14/23 16:02 [facility] [id number][facility] Out-Patient Physical Therapy Visit Information Visit Information Visit Type Initial Evaluation Visit Start Time 15:00 Visit Stop Time 15:45 Total Visit Minutes 45 Visit Number 1 Evaluation Information Evaluation Date 02/14/23 PT-OP-B Current Condition Start: 02/14/23 14:58 Freq: Status: Active Protocol: Document 02/14/23 15:04 [facility] (Rec: 02/14/23 15:10 [facility] [id number]) Current Condition History of Current Condition Onset Date 2 months Current Complaints leg and foot pain, decreased balance History of Current Condition Pt notes she started noticing horrible lumps in her lower legs, it causes pain and swelling R > L She wasd diagnosed with cellulitis in the ER. She notes increased neuropathy PT-OP-D Balance Start: 02/14/23 14:58 Freq: Status: Active Protocol: Document 02/14/23 15:00 [facility] (Rec: 02/21/23 08:06 [facility] [id number]) OP-PT Balance Assessment Sitting Balance Static Sitting Balance Ability Normal Dynamic Sitting Balance Ability Normal Standing Balance Static Standing Balance Ability Fair Dynamic Standing Balance Ability Fair Standing Balance Comments wide base of support Castellanos Fall Scale Copyright Permission PT-OP-G Mobility & Gait Start: 02/14/23 14:58 Freq: Status: Active Protocol: Document 02/14/23 15:00 [facility] (Rec: 02/21/23 08:05 [facility] [id number]) OP Gait Assessment Gait Deviations General Gait Pattern Decreased Stride Length, Decreased Feet Clearance, Flexed Trunk,Step-to Gait Factors Limiting Gait Function Factors Limiting Gait Function Decreased Sensation,Decreased Strength,Limited Range of Motion,Pain Comments Gait Comments neuropathy, pain, and decreased ankle ROM and strength all contribute to gait disturbances PT-OP-K Range of Motion Start: 02/14/23 14:58 Freq: Status: Active Protocol: Document 02/14/23 15:00 [facility] (Rec: 02/20/23 13:09 [facility] [id number]) Ankle and Foot Goniometric Range of Motion Ankle and Foot Right Ankle/Foot ROM WFL No Testing Position Sitting Dorsiflexion with Knee Flexed 2 Dorsiflexion with Knee Extended 2 Plantarflexion 2 Inversion 2 Eversion 2 Comments very limited and poor ankle ROM Left Ankle/Foot ROM WFL No Testing Position Sitting Dorsiflexion with Knee Flexed 3 Dorsiflexion with Knee Extended 2 Plantarflexion 5 Inversion 5 Eversion 5 Comments very limited and poor ankle ROM PT-OP-Q Treatments Start: 02/14/23 14:58 Freq: Status: Active Protocol: Document 02/14/23 15:00 [facility] (Rec: 02/14/23 16:17 [facility] [id number]) Manual Therapy Treatment Soft Tissue Mobilization plantar fascia and calf musculature Mobilization Type Strumming Intensity/Depth Superficial Body Position Sitting Comments pt is sitting with legs propped on a chair and folded towel under each ischial tuberosity Manual Techniques manual ankle PROM B Comments pt very restriced in B ankles due to progressing scleroderma . She is very tender throughout the tops of her feet so hand placement underneath is needed, worked on ROM in all planes plantar flexion, DF, inversion and eversion PT-OP-T Assessment and Plan Start: 02/14/23 14:58 Freq: Status: Active Protocol: Document 02/14/23 15:00 [facility] (Rec: 02/19/23 16:26 [facility] [id number]) Physical Therapy Assessment Rehab Potential Rehabilitation Potential Fair Evaluation Complexity Number of Personal Factors/Comorbidities 1-2 Number of Body Systems Impaired 3 Clinical Presentation at Evaluation Evolving Impairments Impairments Activity Tolerance,Balance, Functional Activities,Gait, Integument,Posture,ROM,Soft Tissue Mobility,Strength,Tone Goals 4 Impairment unsteadyness of gait and pt is a fall risk Oracle Architect Goal (LTG) Fay is educated on use of assistive devices as well as PT treatments working on ankle ROM and balance to improve ambulation and gait stratagies LTG Duration 12 weeks 3 Impairment LE, foot and ankle pain rated 9/10 that limites her ability to walk for exercise Oracle Architect Goal (LTG) Fay reports a overall reduction with foot and leg pain and she is able to return to walking for exercise and riding the stationary bike 2 Impairment B Calf and plantar fascia tightness and pain limiting pts ability to walk due to decreased ankle ROM Short Term Goal (STG) Fay is educated in a HEP for ankle mobility and flexibility STG Duration 5 weeks Oracle Architect Goal (LTG) Fay presents with improved ankle ROM and decreased tightness of the calf and plantar fascia LTG Duration 12 weeks 1 Impairment Poor ankle and foot ROM affecting balance and gait Short Term Goal (STG) Fay presents with improved balance as is able to stand feet together eyes closed x 10 seconds Oracle Architect Goal (LTG) Fay is able to stand x 30 seconds with feet together and eyes closed without loss of balance LTG Duration 12 weeks Assessment Summary Assessment Fay is a 67 year old female with history of AML and 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 This greatly effectly multiple areas of her body however most predominately her LE and feet . She presents with increased right leg swelling and tightening of her tissue. She was seen at [facility] in the ER on 2022 with increased LE swelling on the right and was diagnosed with cellulitus. She was discharged on cephalexin. Fay reports pain is rated 9/10 in her lower legs and feet both front and back. It limits her ability to walk and her sleep is disrupted. Fay is at a fall risk due to unsteadyness on her feet. She is not currently using a assistive device as she reports it makes it more difficult for her to carry a cane. She has pain to palpation over the anterior aspects of B LE worse than it has been in prior PT. She also presents with what appears to be hardened blisters throughout her B LE on the anterior shins. The psorasis is also worse on her ankles and feet. Fay notes manual therapy that mobilize her ankles and feet can really help her. Treatment will emphasize manual therapy as well as a HEP for ankle mobility and flexibility, opening up of her anterior chest for posture, breathing techniques, gait and balance training. Physical Therapy Plan Frequency and Duration Frequency of Treatment 2x/Week Duration of treatment (weeks) 12 Plan of Care Start Date 02/14/23 Plan of Care End Date 05/09/23 Therapeutic Interventions Therapeutic Interventions Gait Training,Home Exercise Program,Joint Mobilizations, Manual Therapy,Patient/ Caregiver Education,Self-Care/ Home Management,Soft Tissue Mobilization,Therapeutic Exercises Next Visit Focus/Plan Next Note Type Treatment Note Next Visit Plan work on ankle mobility with manual therapy techniques, diaphragmatic breathing and anterior chest stretches with ball behind her back sitting in a chair, trial of BAPS board next visit for ankle ROM
--- NOTE | 2023-02-14 17:00 | PT.OPPOC ---
Physical, Occupational & Speech Therapy At [facility] Current Diagnoses Stiffness of right ankle, not elsewhere classified (02/14/23) Stiffness of left ankle, not elsewhere classified (02/14/23) Systemic sclerosis, unspecified (02/14/23) Muscle weakness (generalized) (02/14/23) Unsteadiness on feet (02/14/23) Visit Care Team Role Provider Type iTmur Schwartz MD Attending Provider Physician Family Provider Primary Care Provider Referring Provider Specialty: Internal Medicine Address: [address] [place] [address] Email: [email or web address] Plan Of Care PT-OP-T Assessment and Plan Start: 02/14/23 14:58 Freq: Status: Active Protocol: Document 02/14/23 15:00 [facility] (Rec: 02/19/23 16:26 [facility] [id number]) Physical Therapy Assessment Rehab Potential Rehabilitation Potential Fair Evaluation Complexity Number of Personal Factors/Comorbidities 1-2 Number of Body Systems Impaired 3 Clinical Presentation at Evaluation Evolving Impairments Impairments Activity Tolerance,Balance, Functional Activities,Gait, Integument,Posture,ROM,Soft Tissue Mobility,Strength,Tone Goals 4 Impairment unsteadiness of gait and pt is a fall risk Snf Goal (LTG) Fay is educated on use of assistive devices as well as PT treatments working on ankle ROM and balance to improve ambulation and gait strategies LTG Duration 12 weeks 3 Impairment LE, foot and ankle pain rated 9/10 that limits her ability to walk for exercise Snf Goal (LTG) Fay reports a overall reduction with foot and leg pain and she is able to return to walking for exercise and riding the stationary bike 2 Impairment B Calf and plantar fascia tightness and pain limiting pts ability to walk due to decreased ankle ROM Short Term Goal (STG) Fay is educated in a HEP for ankle mobility and flexibility STG Duration 5 weeks Snf Goal (LTG) Fay presents with improved ankle ROM and decreased tightness of the calf and plantar fascia LTG Duration 12 weeks 1 Impairment Poor ankle and foot ROM affecting balance and gait Short Term Goal (STG) Fay presents with improved balance as is able to stand feet together eyes closed x 10 seconds Receiving Supervisor Goal (LTG) Fay is able to stand x 30 seconds with feet together and eyes closed without loss of balance LTG Duration 12 weeks Assessment Summary Assessment Fay is a 67 year old female with history of AML and 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 This greatly effectly multiple areas of her body however most predominately her LE and feet . She presents with increased right leg swelling and tightening of her tissue. She was seen at [facility] in the ER on 2022 with increased LE swelling on the right and was diagnosed with cellulitus. She was discharged on cephalexin. Fay reports pain is rated 9/10 in her lower legs and feet both front and back. It limits her ability to walk and her sleep is disrupted. Fay is at a fall risk due to unsteadyness on her feet. She is not currently using a assistive device as she reports it makes it more difficult for her to carry a cane. She has pain to palpation over the anterior aspects of B LE worse than it has been in prior PT. She also presents with what appears to be hardened blisters throughout her B LE on the anterior shins. The psorasis is also worse on her ankles and feet. Fay notes manual therapy that mobilize her ankles and feet can really help her. Treatment will emphasize manual therapy as well as a HEP for ankle mobility and flexibility, opening up of her anterior chest for posture, breathing techniques, gait and balance training. Physical Therapy Plan Frequency and Duration Frequency of Treatment 2x/Week Duration of treatment (weeks) 12 Plan of Care Start Date 02/14/23 Plan of Care End Date 05/09/23 Therapeutic Interventions Therapeutic Interventions Gait Training,Home Exercise Program,Joint Mobilizations, Manual Therapy,Patient/ Caregiver Education,Self-Care/ Home Management,Soft Tissue Mobilization,Therapeutic Exercises Next Visit Focus/Plan Next Note Type Treatment Note Next Visit Plan work on ankle mobility with manual therapy techniques, diaphragmatic breathing and anterior chest stretches with ball behind her back sitting in a chair, trial of BAPS board next visit for ankle ROM Plan of Care Dates Plan of Care Start Date 02/14/23 Plan of Care End Date 05/09/23 Electronically Signed by: Nidhi Villanueva, PT 02/21/23 0807 If you are in agreement with this Plan of Care, please return a signed and dated copy. I have reviewed this Plan of Care and certify that the skilled therapy services above are required to meet the patient?s needs. Physician Signature Date Printed Name and Credentials Clinical Instructor Signature Printed Name and Credentials
--- NOTE | 2023-02-21 16:15 | PT.OTN ---
Current Diagnoses Stiffness of right ankle, not elsewhere classified (02/21/23) Stiffness of left ankle, not elsewhere classified (02/21/23) Systemic sclerosis, unspecified (02/21/23) Muscle weakness (generalized) (02/21/23) Unsteadiness on feet (02/21/23) Physical Therapy Treatment Note PT-OP-A Visit Information Start: 02/14/23 14:58 Freq: Status: Active Protocol: Document 02/21/23 13:00 [facility] (Rec: 02/21/23 13:50 [facility] [id number]) Out-Patient Physical Therapy Visit Information Visit Information Visit Type Treatment Note Visit Start Time 13:00 Visit Stop Time 13:45 Total Visit Minutes 45 Visit Number 2 PT-OP-B Current Condition Start: 02/14/23 14:58 Freq: Status: Active Protocol: Document 02/14/23 15:04 [facility] (Rec: 02/14/23 15:10 [facility] [id number]) Current Condition History of Current Condition Onset Date 2 months Current Complaints leg and foot pain, decreased balance History of Current Condition Pt notes she started noticing horrible lumps in her lower legs, it causes pain and swelling R > L She wasd diagnosed with cellulitis in the ER. She notes increased neuropathy PT-OP-C Subjective Start: 02/14/23 14:58 Freq: Status: Active Protocol: Document 02/21/23 13:00 [facility] (Rec: 02/21/23 13:50 [facility] [id number]) OP-PT Subjective Patient Comments Patient Comments pt notes he neuropathy is worse and she had to cx on saturday due to increased pain from the neuroapthy with walking Patient Reported Progress Same PT-OP-D Balance Start: 02/14/23 14:58 Freq: Status: Active Protocol: Document 02/14/23 15:00 [facility] (Rec: 02/21/23 08:06 [facility] [id number]) OP-PT Balance Assessment Sitting Balance Static Sitting Balance Ability Normal Dynamic Sitting Balance Ability Normal Standing Balance Static Standing Balance Ability Fair Dynamic Standing Balance Ability Fair Standing Balance Comments wide base of support Castellanos Fall Scale Copyright Permission PT-OP-G Mobility & Gait Start: 02/14/23 14:58 Freq: Status: Active Protocol: Document 02/14/23 15:00 [facility] (Rec: 02/21/23 08:05 [facility] [id number]) OP Gait Assessment Gait Deviations General Gait Pattern Decreased Stride Length, Decreased Feet Clearance, Flexed Trunk,Step-to Gait Factors Limiting Gait Function Factors Limiting Gait Function Decreased Sensation,Decreased Strength,Limited Range of Motion,Pain Comments Gait Comments neuropathy, pain, and decreased ankle ROM and strength all contribute to gait disturbances PT-OP-K Range of Motion Start: 02/14/23 14:58 Freq: Status: Active Protocol: Document 02/14/23 15:00 [facility] (Rec: 02/20/23 13:09 [facility] [id number]) Ankle and Foot Goniometric Range of Motion Ankle and Foot Right Ankle/Foot ROM WFL No Testing Position Sitting Dorsiflexion with Knee Flexed 2 Dorsiflexion with Knee Extended 2 Plantarflexion 2 Inversion 2 Eversion 2 Comments very limited and poor ankle ROM Left Ankle/Foot ROM WFL No Testing Position Sitting Dorsiflexion with Knee Flexed 3 Dorsiflexion with Knee Extended 2 Plantarflexion 5 Inversion 5 Eversion 5 Comments very limited and poor ankle ROM PT-OP-Q Treatments Start: 02/14/23 14:58 Freq: Status: Active Protocol: Document 02/21/23 13:00 [facility] (Rec: 02/21/23 13:50 [facility] [id number]) Cardio Equipment Recumbent Elliptical ([employer]) Duration (Minutes) 10 Resistance 2 Therapeutic Exercises Sitting Exercises seated BAPS Sitting Exercise Name DF/PF Side bilateral Equipment Used BAPS board with ball size 4 Reps/Minutes x 2 min each side Comments working on ankle ROM Manual Therapy Treatment Soft Tissue Mobilization plantar fascia and calf musculature Mobilization Type Strumming Intensity/Depth Superficial Body Position Sitting Comments pt is sitting with legs propped on a chair and folded towel under each ischial tuberosity Manual Techniques manual calf stretch Reps/Duration holding into DF for calf stretch x 1 min manual ankle PROM B Type B Ankle manual ROM Comments pt very restriced in B ankles due to progressing scleroderma . She is very tender throughout the tops of her feet so hand placement underneath is needed, worked on ROM in all planes plantar flexion, DF, inversion and eversion PT-OP-T Assessment and Plan Start: 02/14/23 14:58 Freq: Status: Active Protocol: Document 02/21/23 13:00 [facility] (Rec: 02/21/23 16:14 [facility] [id number]) Physical Therapy Assessment Assessment Summary Assessment I talked to Fay today about trying to return to the cardio exercise on the Sci fit for increased circulation to her legs to try and help with the neuropathy symptoms. She agreed to this and also was able to use the BAPS board today for ankle ROM. Her LE's were not as swollen today as they were last visit. She tolerated treatment well. Physical Therapy Plan Frequency and Duration Frequency of Treatment 2x/Week Duration of treatment (weeks) 12 Plan of Care Start Date 02/14/23 Plan of Care End Date 05/09/23 Therapeutic Interventions Therapeutic Interventions Gait Training,Home Exercise Program,Joint Mobilizations, Manual Therapy,Patient/ Caregiver Education,Self-Care/ Home Management,Soft Tissue Mobilization,Therapeutic Exercises Next Visit Focus/Plan Next Note Type Treatment Note Next Visit Plan work on ankle mobility with manual therapy techniques, diaphragmatic breathing and anterior chest stretches with ball behind her back sitting in a chair, continue with BAPS board next visit for ankle ROM.
--- NOTE | 2023-02-28 16:29 | PT.OTN ---
Current Diagnoses Stiffness of right ankle, not elsewhere classified (02/28/23) Stiffness of left ankle, not elsewhere classified (02/28/23) Systemic sclerosis, unspecified (02/28/23) Muscle weakness (generalized) (02/28/23) Unsteadiness on feet (02/28/23) Physical Therapy Treatment Note PT-OP-A Visit Information Start: 02/14/23 14:58 Freq: Status: Active Protocol: Document 02/28/23 09:37 [facility] (Rec: 02/28/23 10:31 [facility] [id number]) Out-Patient Physical Therapy Visit Information Visit Information Visit Type Treatment Note Visit Start Time 09:30 Visit Stop Time 10:15 Total Visit Minutes 45 Visit Number 3 PT-OP-B Current Condition Start: 02/14/23 14:58 Freq: Status: Active Protocol: Document 02/14/23 15:04 [facility] (Rec: 02/14/23 15:10 [facility] [id number]) Current Condition History of Current Condition Onset Date 2 months Current Complaints leg and foot pain, decreased balance History of Current Condition Pt notes she started noticing horrible lumps in her lower legs, it causes pain and swelling R > L She wasd diagnosed with cellulitis in the ER. She notes increased neuropathy PT-OP-C Subjective Start: 02/14/23 14:58 Freq: Status: Active Protocol: Document 02/28/23 09:37 [facility] (Rec: 02/28/23 10:31 [facility] [id number]) OP-PT Subjective Patient Comments Patient Comments The last two days have been better, I went to the foot doctor and she exfoliated my feet some. I am not in as much pain today. Patient Reported Progress Improving PT-OP-D Balance Start: 02/14/23 14:58 Freq: Status: Active Protocol: Document 02/14/23 15:00 [facility] (Rec: 02/21/23 08:06 [facility] [id number]) OP-PT Balance Assessment Sitting Balance Static Sitting Balance Ability Normal Dynamic Sitting Balance Ability Normal Standing Balance Static Standing Balance Ability Fair Dynamic Standing Balance Ability Fair Standing Balance Comments wide base of support Castellanos Fall Scale Copyright Permission PT-OP-G Mobility & Gait Start: 02/14/23 14:58 Freq: Status: Active Protocol: Document 02/14/23 15:00 [facility] (Rec: 02/21/23 08:05 [facility] [id number]) OP Gait Assessment Gait Deviations General Gait Pattern Decreased Stride Length, Decreased Feet Clearance, Flexed Trunk,Step-to Gait Factors Limiting Gait Function Factors Limiting Gait Function Decreased Sensation,Decreased Strength,Limited Range of Motion,Pain Comments Gait Comments neuropathy, pain, and decreased ankle ROM and strength all contribute to gait disturbances PT-OP-K Range of Motion Start: 02/14/23 14:58 Freq: Status: Active Protocol: Document 02/14/23 15:00 [facility] (Rec: 02/20/23 13:09 [facility] [id number]) Ankle and Foot Goniometric Range of Motion Ankle and Foot Right Ankle/Foot ROM WFL No Testing Position Sitting Dorsiflexion with Knee Flexed 2 Dorsiflexion with Knee Extended 2 Plantarflexion 2 Inversion 2 Eversion 2 Comments very limited and poor ankle ROM Left Ankle/Foot ROM WFL No Testing Position Sitting Dorsiflexion with Knee Flexed 3 Dorsiflexion with Knee Extended 2 Plantarflexion 5 Inversion 5 Eversion 5 Comments very limited and poor ankle ROM PT-OP-Q Treatments Start: 02/14/23 14:58 Freq: Status: Active Protocol: Document 02/28/23 09:30 [facility] (Rec: 02/28/23 16:28 [facility] [id number]) Cardio Equipment Recumbent Elliptical ([employer]) Duration (Minutes) 10 Resistance 2 Other pt rode the bike following treatment Therapeutic Exercises Sitting Exercises seated BAPS Sitting Exercise Name DF/PF Side bilateral Equipment Used BAPS board with ball size 4 Reps/Minutes x 2 min each side Comments working on ankle ROM Manual Therapy Treatment Soft Tissue Mobilization plantar fascia and calf musculature Mobilization Type Strumming Intensity/Depth Superficial Body Position Sitting Comments pt is sitting with legs propped on a chair and folded towel under each ischial tuberosity Manual Techniques manual calf stretch Reps/Duration holding into DF for calf stretch x 1 min manual ankle PROM B Type B Ankle manual ROM Comments pt very restriced in B ankles due to progressing scleroderma . She is very tender throughout the tops of her feet so hand placement underneath is needed, worked on ROM in all planes plantar flexion, DF, inversion and eversion PT-OP-T Assessment and Plan Start: 02/14/23 14:58 Freq: Status: Active Protocol: Document 02/28/23 09:30 [facility] (Rec: 02/28/23 16:28 [facility] [id number]) Physical Therapy Assessment Assessment Summary Assessment Fay is presenting with decreased swelling in her LE as compared to first visit and improved ankle ROM, she is tolerating the BAPS board and has been able to stay after treatment to ride the sci fit. Physical Therapy Plan Frequency and Duration Frequency of Treatment 2x/Week Duration of treatment (weeks) 12 Plan of Care Start Date 02/14/23 Plan of Care End Date 05/09/23 Therapeutic Interventions Therapeutic Interventions Gait Training,Home Exercise Program,Joint Mobilizations, Manual Therapy,Patient/ Caregiver Education,Self-Care/ Home Management,Soft Tissue Mobilization,Therapeutic Exercises Next Visit Focus/Plan Next Note Type Treatment Note Next Visit Plan work on ankle mobility with manual therapy techniques, diaphragmatic breathing and anterior chest stretches with ball behind her back sitting in a chair, continue with BAPS board next visit for ankle ROM.
--- NOTE | 2023-03-04 17:17 | PT.OTN ---
Current Diagnoses Stiffness of right ankle, not elsewhere classified (03/04/23) Stiffness of left ankle, not elsewhere classified (03/04/23) Systemic sclerosis, unspecified (03/04/23) Muscle weakness (generalized) (03/04/23) Unsteadiness on feet (03/04/23) Physical Therapy Treatment Note PT-OP-A Visit Information Start: 02/14/23 14:58 Freq: Status: Active Protocol: Document 03/04/23 11:29 [facility] (Rec: 03/04/23 11:01 [facility] [id number]) Out-Patient Physical Therapy Visit Information Visit Information Visit Type Treatment Note Visit Start Time 11:30 Visit Stop Time 12:15 Total Visit Minutes 45 Visit Number 4 Number of SOCCER REFEREE Visits 1 Evaluation Information Evaluation Date 02/14/23 PT-OP-B Current Condition Start: 02/14/23 14:58 Freq: Status: Active Protocol: Document 02/14/23 15:04 [facility] (Rec: 02/14/23 15:10 [facility] [id number]) Current Condition History of Current Condition Onset Date 2 months Current Complaints leg and foot pain, decreased balance History of Current Condition Pt notes she started noticing horrible lumps in her lower legs, it causes pain and swelling R > L She wasd diagnosed with cellulitis in the ER. She notes increased neuropathy PT-OP-C Subjective Start: 02/14/23 14:58 Freq: Status: Active Protocol: Document 03/04/23 11:29 [facility] (Rec: 03/04/23 11:01 [facility] [id number]) OP-PT Subjective Patient Comments Patient Comments Fay reports My toes feel much better now. I love the exercise machine. She did Sci -fit machine 20-25 min after last treatment. She states her neuropathy was so painful she could not walk and had to cancel but a PT friend did craniosacral therapy and toes are moving a lot better. She does ankle circles all the time. PT-OP-D Balance Start: 02/14/23 14:58 Freq: Status: Active Protocol: Document 02/14/23 15:00 [facility] (Rec: 02/21/23 08:06 [facility] [id number]) OP-PT Balance Assessment Sitting Balance Static Sitting Balance Ability Normal Dynamic Sitting Balance Ability Normal Standing Balance Static Standing Balance Ability Fair Dynamic Standing Balance Ability Fair Standing Balance Comments wide base of support Castellanos Fall Scale Copyright Permission PT-OP-G Mobility & Gait Start: 02/14/23 14:58 Freq: Status: Active Protocol: Document 02/14/23 15:00 [facility] (Rec: 02/21/23 08:05 [facility] [id number]) OP Gait Assessment Gait Deviations General Gait Pattern Decreased Stride Length, Decreased Feet Clearance, Flexed Trunk,Step-to Gait Factors Limiting Gait Function Factors Limiting Gait Function Decreased Sensation,Decreased Strength,Limited Range of Motion,Pain Comments Gait Comments neuropathy, pain, and decreased ankle ROM and strength all contribute to gait disturbances PT-OP-K Range of Motion Start: 02/14/23 14:58 Freq: Status: Active Protocol: Document 02/14/23 15:00 [facility] (Rec: 02/20/23 13:09 [facility] [id number]) Ankle and Foot Goniometric Range of Motion Ankle and Foot Right Ankle/Foot ROM WFL No Testing Position Sitting Dorsiflexion with Knee Flexed 2 Dorsiflexion with Knee Extended 2 Plantarflexion 2 Inversion 2 Eversion 2 Comments very limited and poor ankle ROM Left Ankle/Foot ROM WFL No Testing Position Sitting Dorsiflexion with Knee Flexed 3 Dorsiflexion with Knee Extended 2 Plantarflexion 5 Inversion 5 Eversion 5 Comments very limited and poor ankle ROM PT-OP-Q Treatments Start: 02/14/23 14:58 Freq: Status: Active Protocol: Document 03/04/23 11:29 [facility] (Rec: 03/04/23 11:01 [facility] [id number]) Cardio Equipment Recumbent Stepper (Sci-Fit) Duration (Minutes) 10 Resistance 2 Other pt used following treatment Therapeutic Exercises Sitting Exercises seated BAPS Sitting Exercise Name DF/PF Side bilateral Equipment Used BAPS board with ball size 4 Reps/Minutes x 2 min each side Comments working on ankle ROM Manual Therapy Treatment Soft Tissue Mobilization B patellar tendons Mobilization Type Cross-Friction Intensity/Depth Moderate Body Position Sitting Comments pt is sitting with legs propped on a chair and folded towel under each ischial tuberosity Upper, middle traps Body Location B Mobilization Type Cross-Friction,Oscillations, Rolling,Sustained Pressure Intensity/Depth Moderate Body Position Sitting Comments cued slow breaths and worked on diaphragmatic breathing in sitting plantar fascia and calf musculature Mobilization Type Strumming Intensity/Depth Superficial Body Position Sitting Comments pt is sitting with legs propped on a chair and folded towel under each ischial tuberosity Manual Techniques manual calf stretch Reps/Duration holding into DF for calf stretch x 1 min manual ankle PROM B Type B Ankle manual ROM Comments pt very restriced in B ankles due to progressing scleroderma . She is less tender on tops of her feet today but hand placement still focused underneath to work on ROM in all planes plantar flexion, DF , inversion and eversion Self-Care/Home Management Treatment Education Patient Education Home Exercise Program Other Education Pt encouraged in personal HEP including ankle ex's for improving ankle ROM. PT-OP-T Assessment and Plan Start: 02/14/23 14:58 Freq: Status: Active Protocol: Document 03/04/23 11:29 [facility] (Rec: 03/04/23 11:01 [facility] [id number]) Physical Therapy Assessment Goals 4 Impairment unsteadyness of gait and pt is a fall risk Group Home Goal (LTG) Fay is educated on use of assistive devices as well as PT treatments working on ankle ROM and balance to improve ambulation and gait stratagies LTG Duration 12 weeks 3 Impairment LE, foot and ankle pain rated 9/10 that limites her ability to walk for exercise [employer] Goal (LTG) Fay reports a overall reduction with foot and leg pain and she is able to return to walking for exercise and riding the stationary bike 2 Impairment B Calf and plantar fascia tightness and pain limiting pts ability to walk due to decreased ankle ROM Short Term Goal (STG) Fay is educated in a HEP for ankle mobility and flexibility STG Duration 5 weeks [employer] Goal (LTG) Fay presents with improved ankle ROM and decreased tightness of the calf and plantar fascia LTG Duration 12 weeks 1 Impairment Poor ankle and foot ROM affecting balance and gait Short Term Goal (STG) Fay presents with improved balance as is able to stand feet together eyes closed x 10 seconds Group Home Goal (LTG) Fay is able to stand x 30 seconds with feet together and eyes closed without loss of balance LTG Duration 12 weeks Assessment Summary Assessment Fay is less tender on tops of her feet today but hand placement is still focused underneath to work on ROM in all planes for plantar flexion , DF, inversion and eversion w / positive feedback response. STM to upper and middle traps and B patellar tendons with cues for diaphragmatic breathing and positive feedback response. Pt is encouraged to continue HEP of ankle circles for improving ankle ROM. After eating and resting due to low blood sugar alert end of session Fay does 10 minutes on Sci-Fit instead of 20 min today. Physical Therapy Plan Frequency and Duration Frequency of Treatment 2x/Week Duration of treatment (weeks) 12 Plan of Care Start Date 02/14/23 Plan of Care End Date 05/09/23 Therapeutic Interventions Therapeutic Interventions Gait Training,Home Exercise Program,Joint Mobilizations, Manual Therapy,Patient/ Caregiver Education,Self-Care/ Home Management,Soft Tissue Mobilization,Therapeutic Exercises Next Visit Focus/Plan Next Note Type Treatment Note Next Visit Plan work on ankle mobility with manual therapy techniques, diaphragmatic breathing and anterior chest stretches with ball behind her back sitting in a chair, continue with BAPS board next visit for ankle ROM.
--- NOTE | 2023-03-11 15:23 | PT.OTN ---
Current Diagnoses Stiffness of right ankle, not elsewhere classified (03/11/23) Stiffness of left ankle, not elsewhere classified (03/11/23) Systemic sclerosis, unspecified (03/11/23) Muscle weakness (generalized) (03/11/23) Unsteadiness on feet (03/11/23) Physical Therapy Treatment Note PT-OP-A Visit Information Start: 02/14/23 14:58 Freq: Status: Active Protocol: Document 03/11/23 13:49 [facility] (Rec: 03/11/23 15:18 [facility] [id number]) Out-Patient Physical Therapy Visit Information Visit Information Visit Type Treatment Note Visit Start Time 13:33 Visit Stop Time 14:23 Total Visit Minutes 50 Visit Number 5 Number of KNOWLEDGE MANAGEMENT CONSULTANT Visits 2 PT-OP-B Current Condition Start: 02/14/23 14:58 Freq: Status: Active Protocol: Document 02/14/23 15:04 [facility] (Rec: 02/14/23 15:10 [facility] [id number]) Current Condition History of Current Condition Onset Date 2 months Current Complaints leg and foot pain, decreased balance History of Current Condition Pt notes she started noticing horrible lumps in her lower legs, it causes pain and swelling R > L She wasd diagnosed with cellulitis in the ER. She notes increased neuropathy PT-OP-C Subjective Start: 02/14/23 14:58 Freq: Status: Active Protocol: Document 03/11/23 13:49 [facility] (Rec: 03/11/23 15:18 [facility] [id number]) OP-PT Subjective Patient Comments Patient Comments Pt reports she is feeling pain all over and is tired of being in pain all the time. She had upper endoscopy last week and they used an extra anesthesia so she is still groggy and sleeping a lot. Her sister in law is coming to visit and she is struggling to get the house ready. PT-OP-D Balance Start: 02/14/23 14:58 Freq: Status: Active Protocol: Document 02/14/23 15:00 [facility] (Rec: 02/21/23 08:06 [facility] [id number]) OP-PT Balance Assessment Sitting Balance Static Sitting Balance Ability Normal Dynamic Sitting Balance Ability Normal Standing Balance Static Standing Balance Ability Fair Dynamic Standing Balance Ability Fair Standing Balance Comments wide base of support Castellanos Fall Scale Copyright Permission PT-OP-G Mobility & Gait Start: 02/14/23 14:58 Freq: Status: Active Protocol: Document 02/14/23 15:00 [facility] (Rec: 02/21/23 08:05 [facility] [id number]) OP Gait Assessment Gait Deviations General Gait Pattern Decreased Stride Length, Decreased Feet Clearance, Flexed Trunk,Step-to Gait Factors Limiting Gait Function Factors Limiting Gait Function Decreased Sensation,Decreased Strength,Limited Range of Motion,Pain Comments Gait Comments neuropathy, pain, and decreased ankle ROM and strength all contribute to gait disturbances PT-OP-K Range of Motion Start: 02/14/23 14:58 Freq: Status: Active Protocol: Document 02/14/23 15:00 [facility] (Rec: 02/20/23 13:09 [facility] [id number]) Ankle and Foot Goniometric Range of Motion Ankle and Foot Right Ankle/Foot ROM WFL No Testing Position Sitting Dorsiflexion with Knee Flexed 2 Dorsiflexion with Knee Extended 2 Plantarflexion 2 Inversion 2 Eversion 2 Comments very limited and poor ankle ROM Left Ankle/Foot ROM WFL No Testing Position Sitting Dorsiflexion with Knee Flexed 3 Dorsiflexion with Knee Extended 2 Plantarflexion 5 Inversion 5 Eversion 5 Comments very limited and poor ankle ROM PT-OP-Q Treatments Start: 02/14/23 14:58 Freq: Status: Active Protocol: Document 03/11/23 13:49 [facility] (Rec: 03/11/23 15:18 [facility] [id number]) Cardio Equipment Recumbent Stepper (Sci-Fit) Duration (Minutes) 25 Resistance 2.5 Other pt used following treatment Manual Therapy Treatment Soft Tissue Mobilization B patellar tendons Mobilization Type Cross-Friction Intensity/Depth Moderate Body Position Sitting Comments pt is sitting with legs propped on a chair and folded towel under each ischial tuberosity Upper, middle traps Body Location B Mobilization Type Cross-Friction,Oscillations, Rolling,Sustained Pressure Intensity/Depth Moderate Body Position Sitting Comments manually pec stretch bhavna. cued slow breaths and worked on diaphragmatic breathing in sitting plantar fascia and calf musculature Mobilization Type Strumming Intensity/Depth Superficial Body Position Sitting Comments pt is sitting with legs propped on a chair and folded towel under each ischial tuberosity Manual Techniques manual calf stretch Reps/Duration holding into DF for calf stretch x 1 min manual ankle PROM B Type B Ankle manual ROM Comments pt very restriced in B ankles due to progressing scleroderma . She is less tender on tops of her feet today but hand placement still focused underneath to work on ROM in all planes plantar flexion, DF , inversion and eversion Self-Care/Home Management Treatment Education Patient Education Home Exercise Program,Pain Management,Posture Other Education 1. I/s pt in seated breathing/ relaxation techniques: 1. Arms abducted 90 deg w/ elbows extended (T) w/ tall posture and deep breaths 2. Arms wrapped around body in self- hug 3. Rocking bilaterally w/ self-hug and slow pacing 4. Mantra : Thank you, Body, for all you did today. 2. Discussed sources of support for keeping up with the house including neighbor and [id number] who is coming to visit and willing to help. PT-OP-T Assessment and Plan Start: 02/14/23 14:58 Freq: Status: Active Protocol: Document 03/11/23 13:49 [facility] (Rec: 03/11/23 15:18 [facility] [id number]) Physical Therapy Assessment Goals 4 Impairment unsteadyness of gait and pt is a fall risk Marketing Research Analyst Goal (LTG) Fay is educated on use of assistive devices as well as PT treatments working on ankle ROM and balance to improve ambulation and gait stratagies LTG Duration 12 weeks 3 Impairment LE, foot and ankle pain rated 9/10 that limites her ability to walk for exercise Care Home Goal (LTG) Fay reports a overall reduction with foot and leg pain and she is able to return to walking for exercise and riding the stationary bike 2 Impairment B Calf and plantar fascia tightness and pain limiting pts ability to walk due to decreased ankle ROM Short Term Goal (STG) Fay is educated in a HEP for ankle mobility and flexibility STG Duration 5 weeks Care Home Goal (LTG) Fay presents with improved ankle ROM and decreased tightness of the calf and plantar fascia LTG Duration 12 weeks 1 Impairment Poor ankle and foot ROM affecting balance and gait Short Term Goal (STG) Fay presents with improved balance as is able to stand feet together eyes closed x 10 seconds Marketing Research Analyst Goal (LTG) Fay is able to stand x 30 seconds with feet together and eyes closed without loss of balance LTG Duration 12 weeks Assessment Summary Assessment Fay is initially tearful today presenting with generalized pain. She responds well to STM to back and shoulders w/ cues for deep breathing and upright posture. She is instructed in relaxation/breathing techniques with positive feedback response and reset. Pt completes 25 min on Sci- Fit today at Level 2.5 resistance end of session. Physical Therapy Plan Frequency and Duration Frequency of Treatment 2x/Week Duration of treatment (weeks) 12 Plan of Care Start Date 02/14/23 Plan of Care End Date 05/09/23 Therapeutic Interventions Therapeutic Interventions Gait Training,Home Exercise Program,Joint Mobilizations, Manual Therapy,Patient/ Caregiver Education,Self-Care/ Home Management,Soft Tissue Mobilization,Therapeutic Exercises Next Visit Focus/Plan Next Note Type Treatment Note Next Visit Plan Consider a video of 03/11/23 relaxation techniques for pt HEP. Progress POC as able. POC: work on ankle mobility with manual therapy techniques , diaphragmatic breathing and anterior chest stretches with ball behind her back sitting in a chair, continue with BAPS board next visit for ankle ROM.
--- NOTE | 2023-03-19 16:12 | PT.OTN ---
Current Diagnoses Polyneuropathy, unspecified (03/19/23) Stiffness of right ankle, not elsewhere classified (03/19/23) Stiffness of left ankle, not elsewhere classified (03/19/23) Systemic sclerosis, unspecified (03/19/23) Muscle weakness (generalized) (03/19/23) Unsteadiness on feet (03/19/23) Other reduced mobility (03/19/23) Physical Therapy Treatment Note PT-OP-A Visit Information Start: 02/14/23 14:58 Freq: Status: Active Protocol: Document 03/19/23 14:00 [facility] (Rec: 03/19/23 16:10 [facility] [id number]) Out-Patient Physical Therapy Visit Information Visit Information Visit Type Treatment Note Visit Start Time 14:00 Visit Stop Time 14:45 Total Visit Minutes 45 Visit Number 6 Number of CROWNING INSPECTOR Visits 0 PT-OP-B Current Condition Start: 02/14/23 14:58 Freq: Status: Active Protocol: Document 02/14/23 15:04 [facility] (Rec: 02/14/23 15:10 [facility] [id number]) Current Condition History of Current Condition Onset Date 2 months Current Complaints leg and foot pain, decreased balance History of Current Condition Pt notes she started noticing horrible lumps in her lower legs, it causes pain and swelling R > L She wasd diagnosed with cellulitis in the ER. She notes increased neuropathy PT-OP-C Subjective Start: 02/14/23 14:58 Freq: Status: Active Protocol: Document 03/19/23 14:00 [facility] (Rec: 03/19/23 15:02 [facility] [id number]) OP-PT Subjective Patient Comments Patient Comments pt notes she fell 4 days ago backwards onto the side table, she notes she has a big bruise on her left side so it hurts when she tries to lay down, she notes her coccyx bone is very inflammed. Her feet and legs have been a little better PT-OP-D Balance Start: 02/14/23 14:58 Freq: Status: Active Protocol: Document 02/14/23 15:00 [facility] (Rec: 02/21/23 08:06 [facility] [id number]) OP-PT Balance Assessment Sitting Balance Static Sitting Balance Ability Normal Dynamic Sitting Balance Ability Normal Standing Balance Static Standing Balance Ability Fair Dynamic Standing Balance Ability Fair Standing Balance Comments wide base of support Castellanos Fall Scale Copyright Permission PT-OP-G Mobility & Gait Start: 02/14/23 14:58 Freq: Status: Active Protocol: Document 02/14/23 15:00 [facility] (Rec: 02/21/23 08:05 [facility] [id number]) OP Gait Assessment Gait Deviations General Gait Pattern Decreased Stride Length, Decreased Feet Clearance, Flexed Trunk,Step-to Gait Factors Limiting Gait Function Factors Limiting Gait Function Decreased Sensation,Decreased Strength,Limited Range of Motion,Pain Comments Gait Comments neuropathy, pain, and decreased ankle ROM and strength all contribute to gait disturbances PT-OP-K Range of Motion Start: 02/14/23 14:58 Freq: Status: Active Protocol: Document 02/14/23 15:00 [facility] (Rec: 02/20/23 13:09 [facility] [id number]) Ankle and Foot Goniometric Range of Motion Ankle and Foot Right Ankle/Foot ROM WFL No Testing Position Sitting Dorsiflexion with Knee Flexed 2 Dorsiflexion with Knee Extended 2 Plantarflexion 2 Inversion 2 Eversion 2 Comments very limited and poor ankle ROM Left Ankle/Foot ROM WFL No Testing Position Sitting Dorsiflexion with Knee Flexed 3 Dorsiflexion with Knee Extended 2 Plantarflexion 5 Inversion 5 Eversion 5 Comments very limited and poor ankle ROM PT-OP-Q Treatments Start: 02/14/23 14:58 Freq: Status: Active Protocol: Document 03/19/23 14:00 [facility] (Rec: 03/19/23 16:10 [facility] [id number]) Cardio Equipment Recumbent Stepper (Sci-Fit) Duration (Minutes) 25 Resistance 2.5 Other pt used following treatment PT-OP-T Assessment and Plan Start: 02/14/23 14:58 Freq: Status: Active Protocol: Document 03/19/23 14:00 [facility] (Rec: 03/19/23 16:10 [facility] [id number]) Physical Therapy Assessment Assessment Summary Assessment Fay took a fall backward and presents with a very large bruise on her left posterior axilla. She did not seek medical attention. She does not feel she needs further assessment but I did encourage her too. She has not been able to use her seated stair stepper as her coccyx is bothering her but this she says is not from the fall. She was able to sit on the sci fit today for 25 min after her treatment. She does bring in a referral for vestibular PT and she would benefit from this. Physical Therapy Plan Frequency and Duration Frequency of Treatment 2x/Week Duration of treatment (weeks) 12 Plan of Care Start Date 02/14/23 Plan of Care End Date 05/09/23 Therapeutic Interventions Therapeutic Interventions Gait Training,Home Exercise Program,Joint Mobilizations, Manual Therapy,Patient/ Caregiver Education,Self-Care/ Home Management,Soft Tissue Mobilization,Therapeutic Exercises Next Visit Focus/Plan Next Note Type Treatment Note Next Visit Plan continue to work on ankle mobility with manual therapy techniques, diaphragmatic breathing and anterior chest stretches with ball behind her back sitting in a chair, continue with BAPS board next visit for ankle ROM.
--- NOTE | 2023-04-04 16:02 | PT.OTN ---
Current Diagnoses Polyneuropathy, unspecified (04/04/23) Stiffness of right ankle, not elsewhere classified (04/04/23) Stiffness of left ankle, not elsewhere classified (04/04/23) Systemic sclerosis, unspecified (04/04/23) Muscle weakness (generalized) (04/04/23) Unsteadiness on feet (04/04/23) Other reduced mobility (04/04/23) Physical Therapy Treatment Note PT-OP-A Visit Information Start: 02/14/23 14:58 Freq: Status: Active Protocol: Document 04/04/23 15:06 [facility] (Rec: 04/04/23 16:01 [facility] [id number]) Out-Patient Physical Therapy Visit Information Visit Information Visit Type Treatment Note Visit Start Time 15:00 Visit Stop Time 15:45 Total Visit Minutes 45 Visit Number 8 PT-OP-B Current Condition Start: 02/14/23 14:58 Freq: Status: Active Protocol: Document 02/14/23 15:04 [facility] (Rec: 02/14/23 15:10 [facility] [id number]) Current Condition History of Current Condition Onset Date 2 months Current Complaints leg and foot pain, decreased balance History of Current Condition Pt notes she started noticing horrible lumps in her lower legs, it causes pain and swelling R > L She wasd diagnosed with cellulitis in the ER. She notes increased neuropathy PT-OP-C Subjective Start: 02/14/23 14:58 Freq: Status: Active Protocol: Document 04/04/23 15:06 [facility] (Rec: 04/04/23 16:01 [facility] [id number]) OP-PT Subjective Patient Comments Patient Comments Fay reports she has been on her stair stepper 2 times per day. Her friend Carolynn is with her today who is a manual therapist PT-OP-D Balance Start: 02/14/23 14:58 Freq: Status: Active Protocol: Document 02/14/23 15:00 [facility] (Rec: 02/21/23 08:06 [facility] [id number]) OP-PT Balance Assessment Sitting Balance Static Sitting Balance Ability Normal Dynamic Sitting Balance Ability Normal Standing Balance Static Standing Balance Ability Fair Dynamic Standing Balance Ability Fair Standing Balance Comments wide base of support Castellanos Fall Scale Copyright Permission PT-OP-G Mobility & Gait Start: 02/14/23 14:58 Freq: Status: Active Protocol: Document 02/14/23 15:00 [facility] (Rec: 02/21/23 08:05 [facility] [id number]) OP Gait Assessment Gait Deviations General Gait Pattern Decreased Stride Length, Decreased Feet Clearance, Flexed Trunk,Step-to Gait Factors Limiting Gait Function Factors Limiting Gait Function Decreased Sensation,Decreased Strength,Limited Range of Motion,Pain Comments Gait Comments neuropathy, pain, and decreased ankle ROM and strength all contribute to gait disturbances PT-OP-K Range of Motion Start: 02/14/23 14:58 Freq: Status: Active Protocol: Document 02/14/23 15:00 [facility] (Rec: 02/20/23 13:09 [facility] [id number]) Ankle and Foot Goniometric Range of Motion Ankle and Foot Right Ankle/Foot ROM WFL No Testing Position Sitting Dorsiflexion with Knee Flexed 2 Dorsiflexion with Knee Extended 2 Plantarflexion 2 Inversion 2 Eversion 2 Comments very limited and poor ankle ROM Left Ankle/Foot ROM WFL No Testing Position Sitting Dorsiflexion with Knee Flexed 3 Dorsiflexion with Knee Extended 2 Plantarflexion 5 Inversion 5 Eversion 5 Comments very limited and poor ankle ROM PT-OP-Q Treatments Start: 02/14/23 14:58 Freq: Status: Active Protocol: Document 04/04/23 15:06 [facility] (Rec: 04/04/23 16:01 [facility] [id number]) Manual Therapy Treatment Soft Tissue Mobilization MFR technique with traction to the LE Comments gentle MFR technique with distal traction in the LE, pt notes she can feel increased circulation with this B patellar tendons Mobilization Type Cross-Friction Intensity/Depth Moderate Body Position Sitting Comments pt is sitting with legs propped on a chair and folded towel under each ischial tuberosity plantar fascia and calf musculature Mobilization Type Strumming Intensity/Depth Superficial Body Position Sitting Comments pt is long sitting on plinth with sheets rolled up underneath her gluteals B Manual Techniques PROM of the toes B Comments worked on ROM of the metatarsals and encouaged toe flexion manual calf stretch Reps/Duration holding into DF for calf stretch x 1 min manual ankle PROM B Type B Ankle manual ROM Comments pt very restriced in B ankles due to progressing scleroderma . She is less tender on tops of her feet today but hand placement still focused underneath to work on ROM in all planes plantar flexion, DF , inversion and eversion PT-OP-T Assessment and Plan Start: 02/14/23 14:58 Freq: Status: Active Protocol: Document 04/04/23 15:06 [facility] (Rec: 04/04/23 16:01 [facility] [id number]) Physical Therapy Assessment Assessment Summary Assessment Fay is doing better with her skin and mobility today, she did not bring in a cane today. Her friend was present for the appointment and also demonstrated a technique she has been using with Fay. Fay did not stay to do her cardio today as she had a appointment right after this one. Physical Therapy Plan Frequency and Duration Frequency of Treatment 2x/Week Duration of treatment (weeks) 12 Plan of Care Start Date 02/14/23 Plan of Care End Date 05/09/23 Therapeutic Interventions Therapeutic Interventions Gait Training,Home Exercise Program,Joint Mobilizations, Manual Therapy,Patient/ Caregiver Education,Self-Care/ Home Management,Soft Tissue Mobilization,Therapeutic Exercises
--- NOTE | 2023-04-09 16:44 | PT.OTN ---
Current Diagnoses Polyneuropathy, unspecified (04/09/23) Stiffness of right ankle, not elsewhere classified (04/09/23) Stiffness of left ankle, not elsewhere classified (04/09/23) Systemic sclerosis, unspecified (04/09/23) Muscle weakness (generalized) (04/09/23) Unsteadiness on feet (04/09/23) Other reduced mobility (04/09/23) Physical Therapy Treatment Note PT-OP-A Visit Information Start: 02/14/23 14:58 Freq: Status: Active Protocol: Document 04/09/23 14:27 [facility] (Rec: 04/09/23 16:41 [facility] [id number]) Out-Patient Physical Therapy Visit Information Visit Information Visit Type Treatment Note Visit Start Time 14:20 Visit Stop Time 15:20 Total Visit Minutes 60 Visit Number 9 Number of CROP SCOUT Visits 1 PT-OP-B Current Condition Start: 02/14/23 14:58 Freq: Status: Active Protocol: Document 02/14/23 15:04 [facility] (Rec: 02/14/23 15:10 [facility] [id number]) Current Condition History of Current Condition Onset Date 2 months Current Complaints leg and foot pain, decreased balance History of Current Condition Pt notes she started noticing horrible lumps in her lower legs, it causes pain and swelling R > L She wasd diagnosed with cellulitis in the ER. She notes increased neuropathy PT-OP-C Subjective Start: 02/14/23 14:58 Freq: Status: Active Protocol: Document 04/09/23 14:27 [facility] (Rec: 04/09/23 16:41 [facility] [id number]) OP-PT Subjective Patient Comments Patient Comments Fay reports when she fell a couple of weeks ago she really hurt her coccyx bone and it hurts. She's been icing it per doctor's instructions. I've been doing my stair stepper every day and I feel stronger. She states the cane gets in her way so she hasn't been using it lately. PT-OP-D Balance Start: 02/14/23 14:58 Freq: Status: Active Protocol: Document 02/14/23 15:00 [facility] (Rec: 02/21/23 08:06 [facility] [id number]) OP-PT Balance Assessment Sitting Balance Static Sitting Balance Ability Normal Dynamic Sitting Balance Ability Normal Standing Balance Static Standing Balance Ability Fair Dynamic Standing Balance Ability Fair Standing Balance Comments wide base of support Castellanos Fall Scale Copyright Permission PT-OP-G Mobility & Gait Start: 02/14/23 14:58 Freq: Status: Active Protocol: Document 02/14/23 15:00 [facility] (Rec: 02/21/23 08:05 [facility] [id number]) OP Gait Assessment Gait Deviations General Gait Pattern Decreased Stride Length, Decreased Feet Clearance, Flexed Trunk,Step-to Gait Factors Limiting Gait Function Factors Limiting Gait Function Decreased Sensation,Decreased Strength,Limited Range of Motion,Pain Comments Gait Comments neuropathy, pain, and decreased ankle ROM and strength all contribute to gait disturbances PT-OP-K Range of Motion Start: 02/14/23 14:58 Freq: Status: Active Protocol: Document 02/14/23 15:00 [facility] (Rec: 02/20/23 13:09 [facility] [id number]) Ankle and Foot Goniometric Range of Motion Ankle and Foot Right Ankle/Foot ROM WFL No Testing Position Sitting Dorsiflexion with Knee Flexed 2 Dorsiflexion with Knee Extended 2 Plantarflexion 2 Inversion 2 Eversion 2 Comments very limited and poor ankle ROM Left Ankle/Foot ROM WFL No Testing Position Sitting Dorsiflexion with Knee Flexed 3 Dorsiflexion with Knee Extended 2 Plantarflexion 5 Inversion 5 Eversion 5 Comments very limited and poor ankle ROM PT-OP-Q Treatments Start: 02/14/23 14:58 Freq: Status: Active Protocol: Document 04/09/23 14:27 [facility] (Rec: 04/09/23 16:41 [facility] [id number]) Therapeutic Exercises Sitting Exercises seated [facility] Sitting Exercise Name DF/PF, m-l challenging, circles Side bilateral Equipment Used BAPS board with ball size 3 Reps/Minutes x 2 min each side Comments working on ankle ROM Gait Training Gait Activity Weightshifting Description anterioposterior, mediolateral Device Used hi-lo table for UE support Level of Assistance SBA>CGA Surface firm Distance/Duration x10 ea Manual Therapy Treatment Soft Tissue Mobilization B patellar tendons Mobilization Type Cross-Friction Intensity/Depth Moderate Body Position Sitting Comments pt is sitting with legs propped on a chair and folded towel under each ischial tuberosity Upper, middle traps Body Location B Mobilization Type Myofascial Release,Rolling, Sustained Pressure,Other Intensity/Depth Moderate Body Position Standing Comments manually pec stretch bhavna. cued slow breaths and worked on diaphragmatic breathing in standing plantar fascia and calf musculature Mobilization Type Strumming,Sustained Pressure Intensity/Depth Moderate Body Position Sitting Comments pt is long sitting with folded towels underneath her ischial tuberosities B Manual Techniques manual calf stretch Reps/Duration holding into DF for calf stretch x 1 min manual ankle PROM B Type B Ankle manual ROM Comments pt very restriced in B ankles due to progressing scleroderma . She is less tender on tops of her feet today but hand placement still focused underneath to work on ROM in all planes plantar flexion, DF , inversion and eversion Neuro Re-Education Treatment Balance Activities SLS Details 2 [employer]IES GRADER>1 [employer]IES GRADER Surface firm Equipment hi-lo table for UE support Reps/Duration 1x2-95y ea PT-OP-T Assessment and Plan Start: 02/14/23 14:58 Freq: Status: Active Protocol: Document 04/09/23 14:27 [facility] (Rec: 04/09/23 16:41 [facility] [id number]) Physical Therapy Assessment Goals 4 Impairment unsteadyness of gait and pt is a fall risk Prison Goal (LTG) Fay is educated on use of assistive devices as well as PT treatments working on ankle ROM and balance to improve ambulation and gait stratagies LTG Duration 12 weeks 3 Impairment LE, foot and ankle pain rated 9/10 that limites her ability to walk for exercise Thread Pulling Machine Attendant Goal (LTG) Fay reports a overall reduction with foot and leg pain and she is able to return to walking for exercise and riding the stationary bike 2 Impairment B Calf and plantar fascia tightness and pain limiting pts ability to walk due to decreased ankle ROM Short Term Goal (STG) Fay is educated in a HEP for ankle mobility and flexibility STG Duration 5 weeks Thread Pulling Machine Attendant Goal (LTG) Fay presents with improved ankle ROM and decreased tightness of the calf and plantar fascia LTG Duration 12 weeks 1 Impairment Poor ankle and foot ROM affecting balance and gait Short Term Goal (STG) Fay presents with improved balance as is able to stand feet together eyes closed x 10 seconds Prison Goal (LTG) Fay is able to stand x 30 seconds with feet together and eyes closed without loss of balance LTG Duration 12 weeks Assessment Summary Assessment During treatment session Fay identifies a pressure sore developing on L greater trochanter. Per conversation w / evaluating PT she is encouraged by this CROP SCOUT to seek urgent care. She declines stating she has the tools at home to dress wound. She is counseled on risk of infection and again encouraged to seek urgent care, to wash hands and use gloves if dressing wound, and to contact PCP/ dermatology for urgent appt ( Dermatology appt in Apr). She' s sleeps on L side d/t prior hx of R hip pressure sore and is counseled on sleeping positions to offset pressure on L hip and to sleep on R. Treatment session prior focuses on standing balance, weightshifting, and ankle ROM w/ BAPs which progresses from lvl 4 to Lvl 3 ball. She has one LOB posteriorly in NBOS with perturbations to trunk, and maintains static balance with eyes closed 30s in NBOS. She uses Sci-Fit stepper end of session. Physical Therapy Plan Frequency and Duration Frequency of Treatment 2x/Week Duration of treatment (weeks) 12 Plan of Care Start Date 02/14/23 Plan of Care End Date 05/09/23 Therapeutic Interventions Therapeutic Interventions Gait Training,Home Exercise Program,Joint Mobilizations, Manual Therapy,Patient/ Caregiver Education,Self-Care/ Home Management,Soft Tissue Mobilization,Therapeutic Exercises Next Visit Focus/Plan Next Note Type Treatment Note Next Visit Plan continue to work on ankle mobility with manual therapy techniques, diaphragmatic breathing and anterior chest stretches with ball behind her back sitting in a chair, continue with BAPS board next visit for ankle ROM.
--- NOTE | 2023-04-18 16:43 | PT.OTN ---
Current Diagnoses Polyneuropathy, unspecified (04/18/23) Stiffness of right ankle, not elsewhere classified (04/18/23) Stiffness of left ankle, not elsewhere classified (04/18/23) Systemic sclerosis, unspecified (04/18/23) Muscle weakness (generalized) (04/18/23) Unsteadiness on feet (04/18/23) Other reduced mobility (04/18/23) Physical Therapy Treatment Note PT-OP-A Visit Information Start: 02/14/23 14:58 Freq: Status: Active Protocol: Document 04/18/23 16:38 [facility] (Rec: 04/18/23 16:43 [facility] [id number]) Out-Patient Physical Therapy Visit Information Visit Information Visit Type Treatment Note Visit Start Time 14:00 Visit Stop Time 14:45 Total Visit Minutes 45 Visit Number 10 PT-OP-B Current Condition Start: 02/14/23 14:58 Freq: Status: Active Protocol: Document 02/14/23 15:04 [facility] (Rec: 02/14/23 15:10 [facility] [id number]) Current Condition History of Current Condition Onset Date 2 months Current Complaints leg and foot pain, decreased balance History of Current Condition Pt notes she started noticing horrible lumps in her lower legs, it causes pain and swelling R > L She wasd diagnosed with cellulitis in the ER. She notes increased neuropathy PT-OP-C Subjective Start: 02/14/23 14:58 Freq: Status: Active Protocol: Document 04/18/23 14:05 [facility] (Rec: 04/18/23 14:06 [facility] [id number]) OP-PT Subjective Patient Comments Patient Comments Fay reports she has been trying to rotate sides more with sleeping to relief pressure. She has been using her stair stepper and she is feeling stronger PT-OP-D Balance Start: 02/14/23 14:58 Freq: Status: Active Protocol: Document 02/14/23 15:00 [facility] (Rec: 02/21/23 08:06 [facility] [id number]) OP-PT Balance Assessment Sitting Balance Static Sitting Balance Ability Normal Dynamic Sitting Balance Ability Normal Standing Balance Static Standing Balance Ability Fair Dynamic Standing Balance Ability Fair Standing Balance Comments wide base of support Castellanos Fall Scale Copyright Permission PT-OP-G Mobility & Gait Start: 02/14/23 14:58 Freq: Status: Active Protocol: Document 02/14/23 15:00 [facility] (Rec: 02/21/23 08:05 [facility] [id number]) OP Gait Assessment Gait Deviations General Gait Pattern Decreased Stride Length, Decreased Feet Clearance, Flexed Trunk,Step-to Gait Factors Limiting Gait Function Factors Limiting Gait Function Decreased Sensation,Decreased Strength,Limited Range of Motion,Pain Comments Gait Comments neuropathy, pain, and decreased ankle ROM and strength all contribute to gait disturbances PT-OP-K Range of Motion Start: 02/14/23 14:58 Freq: Status: Active Protocol: Document 02/14/23 15:00 [facility] (Rec: 02/20/23 13:09 [facility] [id number]) Ankle and Foot Goniometric Range of Motion Ankle and Foot Right Ankle/Foot ROM WFL No Testing Position Sitting Dorsiflexion with Knee Flexed 2 Dorsiflexion with Knee Extended 2 Plantarflexion 2 Inversion 2 Eversion 2 Comments very limited and poor ankle ROM Left Ankle/Foot ROM WFL No Testing Position Sitting Dorsiflexion with Knee Flexed 3 Dorsiflexion with Knee Extended 2 Plantarflexion 5 Inversion 5 Eversion 5 Comments very limited and poor ankle ROM PT-OP-Q Treatments Start: 02/14/23 14:58 Freq: Status: Active Protocol: Document 04/18/23 16:38 [facility] (Rec: 04/18/23 16:43 [facility] [id number]) Cardio Equipment Recumbent Stepper (Sci-Fit) Seat Position 20 min Other pt stayed after treatment to ride bike x 20 Manual Therapy Treatment Soft Tissue Mobilization MFR technique with traction to the LE Comments gentle MFR technique with distal traction in the LE, pt notes she can feel increased circulation with this B patellar tendons Mobilization Type Cross-Friction Intensity/Depth Moderate Body Position Sitting Comments pt is sitting with legs propped on a chair and folded towel under each ischial tuberosity Manual Techniques PROM of the toes B Comments worked on ROM of the metatarsals and encouaged toe flexion manual calf stretch Reps/Duration holding into DF for calf stretch x 1 min manual ankle PROM B Type B Ankle manual ROM Comments pt very restriced in B ankles due to progressing scleroderma . She is less tender on tops of her feet today but hand placement still focused underneath to work on ROM in all planes plantar flexion, DF , inversion and eversion PT-OP-T Assessment and Plan Start: 02/14/23 14:58 Freq: Status: Active Protocol: Document 04/18/23 16:38 [facility] (Rec: 04/18/23 16:43 [facility] [id number]) Physical Therapy Assessment Goals 4 Impairment unsteadyness of gait and pt is a fall risk Residential Goal (LTG) Fay is educated on use of assistive devices as well as PT treatments working on ankle ROM and balance to improve ambulation and gait stratagies LTG Duration 12 weeks 3 Impairment LE, foot and ankle pain rated 9/10 that limites her ability to walk for exercise Residential Goal (LTG) Fay reports a overall reduction with foot and leg pain and she is able to return to walking for exercise and riding the stationary bike 2 Impairment B Calf and plantar fascia tightness and pain limiting pts ability to walk due to decreased ankle ROM Short Term Goal (STG) Fay is educated in a HEP for ankle mobility and flexibility STG Duration 5 weeks Dobie Worker Goal (LTG) Fay presents with improved ankle ROM and decreased tightness of the calf and plantar fascia LTG Duration 12 weeks 1 Impairment Poor ankle and foot ROM affecting balance and gait Short Term Goal (STG) Fay presents with improved balance as is able to stand feet together eyes closed x 10 seconds Dobie Worker Goal (LTG) Fay is able to stand x 30 seconds with feet together and eyes closed without loss of balance LTG Duration 12 weeks Assessment Summary Assessment Fay notes she is not experiencing as much pain on her ishium this week and has been making sure to change sides at night to relief pressure Physical Therapy Plan Frequency and Duration Frequency of Treatment 2x/Week Duration of treatment (weeks) 12 Plan of Care Start Date 02/14/23 Plan of Care End Date 05/09/23 Therapeutic Interventions Therapeutic Interventions Gait Training,Home Exercise Program,Joint Mobilizations, Manual Therapy,Patient/ Caregiver Education,Self-Care/ Home Management,Soft Tissue Mobilization,Therapeutic Exercises Next Visit Focus/Plan Next Note Type Treatment Note Next Visit Plan continue to work on ankle mobility with manual therapy techniques, diaphragmatic breathing and anterior chest stretches with ball behind her back sitting in a chair, continue with BAPS board next visit for ankle ROM.
--- NOTE | 2023-04-22 15:55 | PT.OTN ---
Current Diagnoses Polyneuropathy, unspecified (04/22/23) Stiffness of right ankle, not elsewhere classified (04/22/23) Stiffness of left ankle, not elsewhere classified (04/22/23) Systemic sclerosis, unspecified (04/22/23) Muscle weakness (generalized) (04/22/23) Unsteadiness on feet (04/22/23) Other reduced mobility (04/22/23) Physical Therapy Treatment Note PT-OP-A Visit Information Start: 02/14/23 14:58 Freq: Status: Active Protocol: Document 04/22/23 14:22 [facility] (Rec: 04/22/23 15:54 [facility] [id number]) Out-Patient Physical Therapy Visit Information Visit Information Visit Type Treatment Note Visit Start Time 14:19 Visit Stop Time 15:10 Total Visit Minutes 51 Visit Number 11 Number of MACHINE DRILLER Visits 1 PT-OP-B Current Condition Start: 02/14/23 14:58 Freq: Status: Active Protocol: Document 02/14/23 15:04 [facility] (Rec: 02/14/23 15:10 [facility] [id number]) Current Condition History of Current Condition Onset Date 2 months Current Complaints leg and foot pain, decreased balance History of Current Condition Pt notes she started noticing horrible lumps in her lower legs, it causes pain and swelling R > L She wasd diagnosed with cellulitis in the ER. She notes increased neuropathy PT-OP-C Subjective Start: 02/14/23 14:58 Freq: Status: Active Protocol: Document 04/22/23 14:22 [facility] (Rec: 04/22/23 15:54 [facility] [id number]) OP-PT Subjective Patient Comments Patient Comments Fay reports she's been really depressed and cried for more than half an hour last night becuase of feeling overwhelmed with worry and pain re: her legs especially. She's been having stomach upset as well. She has been switching sides to sleep at night to relieve pressure and has been using her stair stepper daily. She used to be able to do only a few minutes but now can do 15 minutes and feels it most in her thighs. PT-OP-D Balance Start: 02/14/23 14:58 Freq: Status: Active Protocol: Document 02/14/23 15:00 [facility] (Rec: 02/21/23 08:06 [facility] [id number]) OP-PT Balance Assessment Sitting Balance Static Sitting Balance Ability Normal Dynamic Sitting Balance Ability Normal Standing Balance Static Standing Balance Ability Fair Dynamic Standing Balance Ability Fair Standing Balance Comments wide base of support Castellanos Fall Scale Copyright Permission PT-OP-G Mobility & Gait Start: 02/14/23 14:58 Freq: Status: Active Protocol: Document 02/14/23 15:00 [facility] (Rec: 02/21/23 08:05 [facility] [id number]) OP Gait Assessment Gait Deviations General Gait Pattern Decreased Stride Length, Decreased Feet Clearance, Flexed Trunk,Step-to Gait Factors Limiting Gait Function Factors Limiting Gait Function Decreased Sensation,Decreased Strength,Limited Range of Motion,Pain Comments Gait Comments neuropathy, pain, and decreased ankle ROM and strength all contribute to gait disturbances PT-OP-K Range of Motion Start: 02/14/23 14:58 Freq: Status: Active Protocol: Document 02/14/23 15:00 [facility] (Rec: 02/20/23 13:09 [facility] [id number]) Ankle and Foot Goniometric Range of Motion Ankle and Foot Right Ankle/Foot ROM WFL No Testing Position Sitting Dorsiflexion with Knee Flexed 2 Dorsiflexion with Knee Extended 2 Plantarflexion 2 Inversion 2 Eversion 2 Comments very limited and poor ankle ROM Left Ankle/Foot ROM WFL No Testing Position Sitting Dorsiflexion with Knee Flexed 3 Dorsiflexion with Knee Extended 2 Plantarflexion 5 Inversion 5 Eversion 5 Comments very limited and poor ankle ROM PT-OP-Q Treatments Start: 02/14/23 14:58 Freq: Status: Active Protocol: Document 04/22/23 14:22 [facility] (Rec: 04/22/23 15:54 [facility] [id number]) Cardio Equipment Recumbent Stepper (Sci-Fit) Seat Position 20 min Other pt stayed after treatment to ride stepper Therapeutic Exercises Sitting Exercises Diaphragmatic Breathing ex Sitting Exercise Name 1. Arms out to sides w/ deep breaths 2. self-hug w/ rocking 3. mantra Reps/Minutes 5' Comments positive feedback response seated BAPS Sitting Exercise Name DF/PF - challenging d/t calf tightness, m-l, circles Side bilateral Equipment Used BAPS board with ball size 3 Reps/Minutes x 2 min each side Comments working on ankle ROM Manual Therapy Treatment Soft Tissue Mobilization B patellar tendons Mobilization Type Cross-Friction Intensity/Depth Moderate Body Position Sitting Comments Feet propped on stool pt declines folded towels under ischial tuberosities today. plantar fascia and calf musculature Body Location bilateral Mobilization Type Rolling,Strumming,Sustained Pressure Intensity/Depth Moderate Body Position Sitting Comments pt declines folded towels under ischial tuberosities today. Manual Techniques PROM of the toes B Comments worked on ROM of the metatarsals and encouaged toe flexion manual calf stretch Body Location bilateral Reps/Duration holding into DF for calf stretch x 1 min manual ankle PROM B Type B Ankle manual ROM Comments pt very restriced in B ankles due to progressing scleroderma . She is less tender on tops of her feet today but hand placement still focused underneath to work on ROM in PF and DF PT-OP-T Assessment and Plan Start: 02/14/23 14:58 Freq: Status: Active Protocol: Document 04/22/23 14:22 [facility] (Rec: 04/22/23 15:54 [facility] [id number]) Physical Therapy Assessment Goals 4 Impairment unsteadyness of gait and pt is a fall risk Skilled Nursing Goal (LTG) Fay is educated on use of assistive devices as well as PT treatments working on ankle ROM and balance to improve ambulation and gait stratagies LTG Duration 12 weeks 3 Impairment LE, foot and ankle pain rated 9/10 that limites her ability to walk for exercise [employer] Laborer Goal (LTG) Fay reports a overall reduction with foot and leg pain and she is able to return to walking for exercise and riding the stationary bike 2 Impairment B Calf and plantar fascia tightness and pain limiting pts ability to walk due to decreased ankle ROM Short Term Goal (STG) Fay is educated in a HEP for ankle mobility and flexibility STG Duration 5 weeks Skilled Nursing Goal (LTG) Fay presents with improved ankle ROM and decreased tightness of the calf and plantar fascia LTG Duration 12 weeks 1 Impairment Poor ankle and foot ROM affecting balance and gait Short Term Goal (STG) Fay presents with improved balance as is able to stand feet together eyes closed x 10 seconds [employer] Ii Laborer Goal (LTG) Fay is able to stand x 30 seconds with feet together and eyes closed without loss of balance LTG Duration 12 weeks Assessment Summary Assessment Fay has positive feedback response to deep breathing ex for relaxation and pain management. Pt is educated briefly in closed-chain vs open-chain ex as with BAPS board vs ankle circles. The tightness in her bilateral calves R>L makes PF/DF challenging on BAPS board today due to feeling of spasm in calves w/ PF. She requires cues for eccentric control w/ BAPS board. Pt stays to do recumbent stepper 20 min end of session. Physical Therapy Plan Frequency and Duration Frequency of Treatment 2x/Week Duration of treatment (weeks) 12 Plan of Care Start Date 02/14/23 Plan of Care End Date 05/09/23 Therapeutic Interventions Therapeutic Interventions Gait Training,Home Exercise Program,Joint Mobilizations, Manual Therapy,Patient/ Caregiver Education,Self-Care/ Home Management,Soft Tissue Mobilization,Therapeutic Exercises Next Visit Focus/Plan Next Note Type Treatment Note Next Visit Plan continue to work on ankle mobility with manual therapy techniques, diaphragmatic breathing and anterior chest stretches with ball behind her back sitting in a chair, continue with BAPS board next visit for ankle ROM.
--- NOTE | 2023-04-25 16:15 | PT.OTN ---
Current Diagnoses Polyneuropathy, unspecified (04/25/23) Stiffness of right ankle, not elsewhere classified (04/25/23) Stiffness of left ankle, not elsewhere classified (04/25/23) Systemic sclerosis, unspecified (04/25/23) Muscle weakness (generalized) (04/25/23) Unsteadiness on feet (04/25/23) Other reduced mobility (04/25/23) Physical Therapy Treatment Note PT-OP-A Visit Information Start: 02/14/23 14:58 Freq: Status: Active Protocol: Document 04/25/23 13:15 [facility] (Rec: 04/25/23 14:59 [facility] [id number]) Out-Patient Physical Therapy Visit Information Visit Information Visit Type Treatment Note Visit Start Time 13:15 Visit Stop Time 14:00 Total Visit Minutes 45 Visit Number 12 Number of BINGO USHER Visits 0 PT-OP-B Current Condition Start: 02/14/23 14:58 Freq: Status: Active Protocol: Document 02/14/23 15:04 [facility] (Rec: 02/14/23 15:10 [facility] [id number]) Current Condition History of Current Condition Onset Date 2 months Current Complaints leg and foot pain, decreased balance History of Current Condition Pt notes she started noticing horrible lumps in her lower legs, it causes pain and swelling R > L She wasd diagnosed with cellulitis in the ER. She notes increased neuropathy PT-OP-C Subjective Start: 02/14/23 14:58 Freq: Status: Active Protocol: Document 04/25/23 13:15 [facility] (Rec: 04/25/23 16:14 [facility] [id number]) OP-PT Subjective Patient Comments Patient Comments Fay reports she feels as if she is walking better, she has been doing her seated stair stepper daily. She does note some tightness in her plantar fascia on the left Patient Reported Progress Improving PT-OP-D Balance Start: 02/14/23 14:58 Freq: Status: Active Protocol: Document 02/14/23 15:00 [facility] (Rec: 02/21/23 08:06 [facility] [id number]) OP-PT Balance Assessment Sitting Balance Static Sitting Balance Ability Normal Dynamic Sitting Balance Ability Normal Standing Balance Static Standing Balance Ability Fair Dynamic Standing Balance Ability Fair Standing Balance Comments wide base of support Castellanos Fall Scale Copyright Permission PT-OP-G Mobility & Gait Start: 02/14/23 14:58 Freq: Status: Active Protocol: Document 02/14/23 15:00 [facility] (Rec: 02/21/23 08:05 [facility] [id number]) OP Gait Assessment Gait Deviations General Gait Pattern Decreased Stride Length, Decreased Feet Clearance, Flexed Trunk,Step-to Gait Factors Limiting Gait Function Factors Limiting Gait Function Decreased Sensation,Decreased Strength,Limited Range of Motion,Pain Comments Gait Comments neuropathy, pain, and decreased ankle ROM and strength all contribute to gait disturbances PT-OP-K Range of Motion Start: 02/14/23 14:58 Freq: Status: Active Protocol: Document 02/14/23 15:00 [facility] (Rec: 02/20/23 13:09 [facility] [id number]) Ankle and Foot Goniometric Range of Motion Ankle and Foot Right Ankle/Foot ROM WFL No Testing Position Sitting Dorsiflexion with Knee Flexed 2 Dorsiflexion with Knee Extended 2 Plantarflexion 2 Inversion 2 Eversion 2 Comments very limited and poor ankle ROM Left Ankle/Foot ROM WFL No Testing Position Sitting Dorsiflexion with Knee Flexed 3 Dorsiflexion with Knee Extended 2 Plantarflexion 5 Inversion 5 Eversion 5 Comments very limited and poor ankle ROM PT-OP-Q Treatments Start: 02/14/23 14:58 Freq: Status: Active Protocol: Document 04/25/23 13:15 [facility] (Rec: 04/25/23 16:14 [facility] [id number]) Therapeutic Exercises Standing Exercises standing calf stretch Reps/Minutes hold 1-2 min Comments pt wasd educated in standng calf stretch to help reduce posterior tightness Manual Therapy Treatment Soft Tissue Mobilization MFR technique with traction to the LE Comments gentle MFR technique with distal traction in the LE, pt notes she can feel increased circulation with this B patellar tendons Mobilization Type Cross-Friction Intensity/Depth Moderate Body Position Sitting Comments pt is sitting with legs propped on a chair and folded towel under each ischial tuberosity plantar fascia and calf musculature Body Location bilateral Mobilization Type Rolling,Strumming,Sustained Pressure Intensity/Depth Moderate Body Position Sitting Manual Techniques PROM of the toes B Comments worked on ROM of the metatarsals and encouaged toe flexion manual calf stretch Body Location bilateral Reps/Duration holding into DF for calf stretch x 1 min manual ankle PROM B Type B Ankle manual ROM Comments pt very restriced in B ankles due to progressing scleroderma . She is less tender on tops of her feet today but hand placement still focused underneath to work on ROM in PF and DF PT-OP-T Assessment and Plan Start: 02/14/23 14:58 Freq: Status: Active Protocol: Document 04/25/23 13:15 [facility] (Rec: 04/25/23 16:14 [facility] [id number]) Physical Therapy Assessment Assessment Summary Assessment Fay is doing better overall and feeling better. She was able to stay and ride the sci fit x 20 min after treatment today Physical Therapy Plan Frequency and Duration Frequency of Treatment 2x/Week Duration of treatment (weeks) 12 Plan of Care Start Date 02/14/23 Plan of Care End Date 05/09/23 Therapeutic Interventions Therapeutic Interventions Gait Training,Home Exercise Program,Joint Mobilizations, Manual Therapy,Patient/ Caregiver Education,Self-Care/ Home Management,Soft Tissue Mobilization,Therapeutic Exercises Next Visit Focus/Plan Next Note Type Treatment Note Next Visit Plan continue to work on ankle mobility with manual therapy techniques, diaphragmatic breathing and anterior chest stretches with ball behind her back sitting in a chair, continue with BAPS board next visit for ankle ROM.
--- NOTE | 2023-04-29 15:50 | PT.OTN ---
Current Diagnoses Polyneuropathy, unspecified (04/29/23) Stiffness of right ankle, not elsewhere classified (04/29/23) Stiffness of left ankle, not elsewhere classified (04/29/23) Systemic sclerosis, unspecified (04/29/23) Muscle weakness (generalized) (04/29/23) Unsteadiness on feet (04/29/23) Other reduced mobility (04/29/23) Physical Therapy Treatment Note PT-OP-A Visit Information Start: 02/14/23 14:58 Freq: Status: Active Protocol: Document 04/29/23 15:25 NBM (Rec: 04/29/23 15:47 [facility] [id number]) Out-Patient Physical Therapy Visit Information Visit Information Visit Type Treatment Note Visit Start Time 14:17 Visit Stop Time 15:07 Total Visit Minutes 50 Visit Number 13 Number of BIOFUELS RESEARCH SCIENTIST Visits 1 PT-OP-B Current Condition Start: 02/14/23 14:58 Freq: Status: Active Protocol: Document 02/14/23 15:04 [facility] (Rec: 02/14/23 15:10 [facility] [id number]) Current Condition History of Current Condition Onset Date 2 months Current Complaints leg and foot pain, decreased balance History of Current Condition Pt notes she started noticing horrible lumps in her lower legs, it causes pain and swelling R > L She wasd diagnosed with cellulitis in the ER. She notes increased neuropathy PT-OP-C Subjective Start: 02/14/23 14:58 Freq: Status: Active Protocol: Document 04/29/23 15:25 NBM (Rec: 04/29/23 15:47 NB [id number]) OP-PT Subjective Patient Comments Patient Comments Fay reports high stress and anxiety after not finding rent check for four days and stopping oral medications because she struggles with swallowing pills. She says her L ankle and foot have spots which hurt and her calves feel like rocks. She is very tired of all of the appointments and pain and wants to sleep. She hasn't done her stepper in days. PT-OP-D Balance Start: 02/14/23 14:58 Freq: Status: Active Protocol: Document 02/14/23 15:00 [facility] (Rec: 02/21/23 08:06 [facility] [id number]) OP-PT Balance Assessment Sitting Balance Static Sitting Balance Ability Normal Dynamic Sitting Balance Ability Normal Standing Balance Static Standing Balance Ability Fair Dynamic Standing Balance Ability Fair Standing Balance Comments wide base of support Castellanos Fall Scale Copyright Permission PT-OP-G Mobility & Gait Start: 02/14/23 14:58 Freq: Status: Active Protocol: Document 02/14/23 15:00 [facility] (Rec: 02/21/23 08:05 [facility] [id number]) OP Gait Assessment Gait Deviations General Gait Pattern Decreased Stride Length, Decreased Feet Clearance, Flexed Trunk,Step-to Gait Factors Limiting Gait Function Factors Limiting Gait Function Decreased Sensation,Decreased Strength,Limited Range of Motion,Pain Comments Gait Comments neuropathy, pain, and decreased ankle ROM and strength all contribute to gait disturbances PT-OP-K Range of Motion Start: 02/14/23 14:58 Freq: Status: Active Protocol: Document 02/14/23 15:00 [facility] (Rec: 02/20/23 13:09 [facility] [id number]) Ankle and Foot Goniometric Range of Motion Ankle and Foot Right Ankle/Foot ROM WFL No Testing Position Sitting Dorsiflexion with Knee Flexed 2 Dorsiflexion with Knee Extended 2 Plantarflexion 2 Inversion 2 Eversion 2 Comments very limited and poor ankle ROM Left Ankle/Foot ROM WFL No Testing Position Sitting Dorsiflexion with Knee Flexed 3 Dorsiflexion with Knee Extended 2 Plantarflexion 5 Inversion 5 Eversion 5 Comments very limited and poor ankle ROM PT-OP-Q Treatments Start: 02/14/23 14:58 Freq: Status: Active Protocol: Document 04/29/23 15:25 NB (Rec: 04/29/23 15:47 NB [id number]) Cardio Equipment Recumbent Stepper (Sci-Fit) Resistance 2.1>2.5 Seat Position 20 min Other pt stayed after treatment to ride stepper Therapeutic Exercises Sitting Exercises Diaphragmatic Breathing ex Sitting Exercise Name 1. Arms out to sides w/ deep breaths 2. self-hug w/ rocking 3. mantra Reps/Minutes 6' Comments positive feedback response Manual Therapy Treatment Soft Tissue Mobilization B patellar tendons Mobilization Type Cross-Friction Intensity/Depth Moderate Body Position Sitting Comments pt is sitting with legs propped on stool plantar fascia and calf musculature Body Location bilateral Mobilization Type Rolling,Strumming,Sustained Pressure Intensity/Depth Moderate Body Position Sitting Comments pt is sitting with legs propped on stool focus to distal calves and achilles. Self-Care/Home Management Treatment Activities Self-Care/Home Management Activities Callus at L lateral malleoli partially rubbed off and pt c/ o pain. Bacitracin zinc and Band-aid applied, and foam donut cut to size and applied w/ surgical tape in heel lock pattern. Discussion with pt about stopping oral meds and pt plans to resume medications today after treatment. PT-OP-T Assessment and Plan Start: 02/14/23 14:58 Freq: Status: Active Protocol: Document 04/29/23 15:25 [facility] (Rec: 04/29/23 15:47 [facility] [id number]) Physical Therapy Assessment Goals 4 Impairment unsteadyness of gait and pt is a fall risk Prison Goal (LTG) Fay is educated on use of assistive devices as well as PT treatments working on ankle ROM and balance to improve ambulation and gait stratagies LTG Duration 12 weeks 3 Impairment LE, foot and ankle pain rated 9/10 that limites her ability to walk for exercise Career Center Advisor Goal (LTG) Fay reports a overall reduction with foot and leg pain and she is able to return to walking for exercise and riding the stationary bike 2 Impairment B Calf and plantar fascia tightness and pain limiting pts ability to walk due to decreased ankle ROM Short Term Goal (STG) Fay is educated in a HEP for ankle mobility and flexibility STG Duration 5 weeks Prison Goal (LTG) Fay presents with improved ankle ROM and decreased tightness of the calf and plantar fascia LTG Duration 12 weeks 1 Impairment Poor ankle and foot ROM affecting balance and gait Short Term Goal (STG) Fay presents with improved balance as is able to stand feet together eyes closed x 10 seconds Career Center Advisor Goal (LTG) Fay is able to stand x 30 seconds with feet together and eyes closed without loss of balance LTG Duration 12 weeks Assessment Summary Assessment Fay presents today with high anxiety and stress which coincides with stopping all oral medications due to discomfort with swallowing pills; she responds well to diaphragmatic breathing ex's to stimulate parasympathetic nervous system. She is most bothered today by bilateral distal calf tightness and L ankle and foot callus. Treatment focus on relaxation technique, L lateral malleoli callus and manual therapy. L ankle callus appears to have rubbed off partially so band- aid w/ bacitracin applied as well as foam for cushion support. Foam donut provided for foot callus at tuberosity of 5th metatarsal as well. Discussion with pt about stopping oral meds and pt plans to resume medications today after treatment. She stays after treatment to complete recumbent stepper for 20 min. Physical Therapy Plan Frequency and Duration Frequency of Treatment 2x/Week Duration of treatment (weeks) 12 Plan of Care Start Date 02/14/23 Plan of Care End Date 05/09/23 Therapeutic Interventions Therapeutic Interventions Gait Training,Home Exercise Program,Joint Mobilizations, Manual Therapy,Patient/ Caregiver Education,Self-Care/ Home Management,Soft Tissue Mobilization,Therapeutic Exercises Next Visit Focus/Plan Next Note Type Treatment Note Next Visit Plan continue to work on ankle mobility with manual therapy techniques, diaphragmatic breathing and anterior chest stretches with ball behind her back sitting in a chair, continue with BAPS board next visit for ankle ROM.
--- NOTE | 2023-05-02 16:12 | PT.OTN ---
Current Diagnoses Polyneuropathy, unspecified (05/02/23) Stiffness of right ankle, not elsewhere classified (05/02/23) Stiffness of left ankle, not elsewhere classified (05/02/23) Systemic sclerosis, unspecified (05/02/23) Muscle weakness (generalized) (05/02/23) Unsteadiness on feet (05/02/23) Other reduced mobility (05/02/23) Physical Therapy Treatment Note PT-OP-A Visit Information Start: 02/14/23 14:58 Freq: Status: Active Protocol: Document 05/02/23 13:18 [facility] (Rec: 05/02/23 14:08 [facility] [id number]) Out-Patient Physical Therapy Visit Information Visit Information Visit Type Treatment Note Visit Start Time 13:15 Visit Stop Time 14:00 Total Visit Minutes 45 Visit Number 14 Number of REPROGRAPHICS TECHNICIAN Visits 0 PT-OP-B Current Condition Start: 02/14/23 14:58 Freq: Status: Active Protocol: Document 02/14/23 15:04 [facility] (Rec: 02/14/23 15:10 [facility] [id number]) Current Condition History of Current Condition Onset Date 2 months Current Complaints leg and foot pain, decreased balance History of Current Condition Pt notes she started noticing horrible lumps in her lower legs, it causes pain and swelling R > L She wasd diagnosed with cellulitis in the ER. She notes increased neuropathy PT-OP-C Subjective Start: 02/14/23 14:58 Freq: Status: Active Protocol: Document 05/02/23 13:15 [facility] (Rec: 05/02/23 16:12 [facility] [id number]) OP-PT Subjective Patient Comments Patient Comments Fay brings in a foot pad and asks if I will apply it for a red spot that has developed on her foot. She feels she has been able to exercise more and has been doing 20 min on her stair stepper PT-OP-D Balance Start: 02/14/23 14:58 Freq: Status: Active Protocol: Document 02/14/23 15:00 [facility] (Rec: 02/21/23 08:06 [facility] [id number]) OP-PT Balance Assessment Sitting Balance Static Sitting Balance Ability Normal Dynamic Sitting Balance Ability Normal Standing Balance Static Standing Balance Ability Fair Dynamic Standing Balance Ability Fair Standing Balance Comments wide base of support Castellanos Fall Scale Copyright Permission PT-OP-G Mobility & Gait Start: 02/14/23 14:58 Freq: Status: Active Protocol: Document 02/14/23 15:00 [facility] (Rec: 02/21/23 08:05 [facility] [id number]) OP Gait Assessment Gait Deviations General Gait Pattern Decreased Stride Length, Decreased Feet Clearance, Flexed Trunk,Step-to Gait Factors Limiting Gait Function Factors Limiting Gait Function Decreased Sensation,Decreased Strength,Limited Range of Motion,Pain Comments Gait Comments neuropathy, pain, and decreased ankle ROM and strength all contribute to gait disturbances PT-OP-K Range of Motion Start: 02/14/23 14:58 Freq: Status: Active Protocol: Document 02/14/23 15:00 [facility] (Rec: 02/20/23 13:09 [facility] [id number]) Ankle and Foot Goniometric Range of Motion Ankle and Foot Right Ankle/Foot ROM WFL No Testing Position Sitting Dorsiflexion with Knee Flexed 2 Dorsiflexion with Knee Extended 2 Plantarflexion 2 Inversion 2 Eversion 2 Comments very limited and poor ankle ROM Left Ankle/Foot ROM WFL No Testing Position Sitting Dorsiflexion with Knee Flexed 3 Dorsiflexion with Knee Extended 2 Plantarflexion 5 Inversion 5 Eversion 5 Comments very limited and poor ankle ROM PT-OP-Q Treatments Start: 02/14/23 14:58 Freq: Status: Active Protocol: Document 05/02/23 13:15 [facility] (Rec: 05/02/23 16:12 [facility] [id number]) Manual Therapy Treatment Soft Tissue Mobilization MFR technique with traction to the LE Comments gentle MFR technique with distal traction in the LE, pt notes she can feel increased circulation with this plantar fascia and calf musculature Body Location bilateral Mobilization Type Rolling,Strumming,Sustained Pressure Intensity/Depth Moderate Body Position Sitting Comments pt is sitting with legs propped on stool focus to distal calves and achilles. Manual Techniques PROM of the toes B Comments worked on ROM of the metatarsals and encouaged toe flexion manual calf stretch Body Location bilateral Reps/Duration holding into DF for calf stretch x 1 min manual ankle PROM B Type B Ankle manual ROM Comments pt very restriced in B ankles due to progressing scleroderma . She is less tender on tops of her feet today but hand placement still focused underneath to work on ROM in PF and DF PT-OP-T Assessment and Plan Start: 02/14/23 14:58 Freq: Status: Active Protocol: Document 05/02/23 13:15 [facility] (Rec: 05/02/23 16:12 [facility] [id number]) Physical Therapy Assessment Assessment Summary Assessment Fay was doing better again with breathing, I did place a protective pad with open spot for pressure sore on her left lateral ankle today. The spot on the plantar aspect of the left foot does look larger so I talked to her about this spot and we didn't use any massage cream on the bottom of left foot. Physical Therapy Plan Frequency and Duration Frequency of Treatment 2x/Week Duration of treatment (weeks) 12 Plan of Care Start Date 02/14/23 Plan of Care End Date 05/09/23 Therapeutic Interventions Therapeutic Interventions Gait Training,Home Exercise Program,Joint Mobilizations, Manual Therapy,Patient/ Caregiver Education,Self-Care/ Home Management,Soft Tissue Mobilization,Therapeutic Exercises Next Visit Focus/Plan Next Note Type Treatment Note Next Visit Plan continue to work on ankle mobility with manual therapy techniques, diaphragmatic breathing and anterior chest stretches with ball behind her back sitting in a chair, continue with BAPS board next visit for ankle ROM.
--- NOTE | 2023-05-06 14:41 | PT-OP ANOTE ---
Left voicemail for pt re: missed appt today 05/06. Advised next Physical Therapy appt [place] 05/09 at 3:00pm, and to call [phone] more than 24 hrs in advance if possible if needing to cancel or reschedule.
--- NOTE | 2023-05-09 16:08 | PT.OTN ---
Current Diagnoses Polyneuropathy, unspecified (05/09/23) Stiffness of right ankle, not elsewhere classified (05/09/23) Stiffness of left ankle, not elsewhere classified (05/09/23) Systemic sclerosis, unspecified (05/09/23) Muscle weakness (generalized) (05/09/23) Unsteadiness on feet (05/09/23) Other reduced mobility (05/09/23) Physical Therapy Treatment Note PT-OP-A Visit Information Start: 02/14/23 14:58 Freq: Status: Active Protocol: Document 05/09/23 15:05 [facility] (Rec: 05/09/23 16:08 [facility] [id number]) Out-Patient Physical Therapy Visit Information Visit Information Visit Type Treatment Note Visit Start Time 15:00 Visit Stop Time 15:45 Total Visit Minutes 45 Visit Number 15 PT-OP-B Current Condition Start: 02/14/23 14:58 Freq: Status: Active Protocol: Document 02/14/23 15:04 [facility] (Rec: 02/14/23 15:10 [facility] [id number]) Current Condition History of Current Condition Onset Date 2 months Current Complaints leg and foot pain, decreased balance History of Current Condition Pt notes she started noticing horrible lumps in her lower legs, it causes pain and swelling R > L She wasd diagnosed with cellulitis in the ER. She notes increased neuropathy PT-OP-C Subjective Start: 02/14/23 14:58 Freq: Status: Active Protocol: Document 05/09/23 15:05 [facility] (Rec: 05/09/23 16:08 [facility] [id number]) OP-PT Subjective Patient Comments Patient Comments Fay saw the consultant teacher yesterday and was given a new prescription for the scleroderma PT-OP-D Balance Start: 02/14/23 14:58 Freq: Status: Active Protocol: Document 02/14/23 15:00 [facility] (Rec: 02/21/23 08:06 [facility] [id number]) OP-PT Balance Assessment Sitting Balance Static Sitting Balance Ability Normal Dynamic Sitting Balance Ability Normal Standing Balance Static Standing Balance Ability Fair Dynamic Standing Balance Ability Fair Standing Balance Comments wide base of support Castellanos Fall Scale Copyright Permission PT-OP-G Mobility & Gait Start: 02/14/23 14:58 Freq: Status: Active Protocol: Document 02/14/23 15:00 [facility] (Rec: 02/21/23 08:05 [facility] [id number]) OP Gait Assessment Gait Deviations General Gait Pattern Decreased Stride Length, Decreased Feet Clearance, Flexed Trunk,Step-to Gait Factors Limiting Gait Function Factors Limiting Gait Function Decreased Sensation,Decreased Strength,Limited Range of Motion,Pain Comments Gait Comments neuropathy, pain, and decreased ankle ROM and strength all contribute to gait disturbances PT-OP-K Range of Motion Start: 02/14/23 14:58 Freq: Status: Active Protocol: Document 02/14/23 15:00 [facility] (Rec: 02/20/23 13:09 [facility] [id number]) Ankle and Foot Goniometric Range of Motion Ankle and Foot Right Ankle/Foot ROM WFL No Testing Position Sitting Dorsiflexion with Knee Flexed 2 Dorsiflexion with Knee Extended 2 Plantarflexion 2 Inversion 2 Eversion 2 Comments very limited and poor ankle ROM Left Ankle/Foot ROM WFL No Testing Position Sitting Dorsiflexion with Knee Flexed 3 Dorsiflexion with Knee Extended 2 Plantarflexion 5 Inversion 5 Eversion 5 Comments very limited and poor ankle ROM PT-OP-Q Treatments Start: 02/14/23 14:58 Freq: Status: Active Protocol: Document 05/09/23 15:05 [facility] (Rec: 05/09/23 16:08 [facility] [id number]) Cardio Equipment Recumbent Stepper (Sci-Fit) Resistance 2.1>2.5 Seat Position 20 min Other pt stayed after treatment to ride stepper Manual Therapy Treatment Soft Tissue Mobilization MFR technique with traction to the LE Comments gentle MFR technique with distal traction in the LE, pt notes she can feel increased circulation with this B patellar tendons Mobilization Type Cross-Friction Intensity/Depth Moderate Body Position Sitting Comments pt is sitting with legs propped on stool plantar fascia and calf musculature Body Location bilateral Mobilization Type Rolling,Strumming,Sustained Pressure Intensity/Depth Moderate Body Position Sitting Comments pt is sitting with legs propped on stool focus to distal calves and achilles. Manual Techniques PROM of the toes B Comments worked on ROM of the metatarsals and encouaged toe flexion manual calf stretch Body Location bilateral Reps/Duration holding into DF for calf stretch x 1 min manual ankle PROM B Type B Ankle manual ROM Comments pt very restriced in B ankles due to progressing scleroderma . She is less tender on tops of her feet today but hand placement still focused underneath to work on ROM in PF and DF PT-OP-T Assessment and Plan Start: 02/14/23 14:58 Freq: Status: Active Protocol: Document 05/09/23 15:05 [facility] (Rec: 05/09/23 16:08 [facility] [id number]) Physical Therapy Assessment Goals 4 Impairment unsteadyness of gait and pt is a fall risk Halfway Goal (LTG) Fya is educated on use of assistive devices as well as PT treatments working on ankle ROM and balance to improve ambulation and gait stratagies good progress and Fay has not experienced any recent falls LTG Duration 12 weeks 3 Impairment LE, foot and ankle pain rated 9/10 that limites her ability to walk for exercise Curriculum Designer Goal (LTG) Fay reports a overall reduction with foot and leg pain and she is able to return to walking for exercise and riding the stationary bike Good progress and Fay has been able to ride her home seated stair stepper 3 xms per week x 20 min 2 Impairment B Calf and plantar fascia tightness and pain limiting pts ability to walk due to decreased ankle ROM Short Term Goal (STG) Fay is educated in a HEP for ankle mobility and flexibility STG Duration 5 weeks Halfway Goal (LTG) Fay presents with improved ankle ROM and decreased tightness of the calf and plantar fascia Some progress LTG Duration 12 weeks 1 Impairment Poor ankle and foot ROM affecting balance and gait Short Term Goal (STG) Fay presents with improved balance as is able to stand feet together eyes closed x 10 seconds Halfway Goal (LTG) Fay is able to stand x 30 seconds with feet together and eyes closed without loss of balance goal not yet met LTG Duration 12 weeks Assessment Summary Assessment Fay has responded well to PT treatments focusing on improved ROM and flexibility of the LE to reduce fall risk. Fay is having a better day today, she is walking better and had more energy. She stayed afterwards x 20 min to ride the sci fit after her treatment today. She has an additional month of PT scheduled and then will be discharged so that she can start her PT for vestibular treatment. Physical Therapy Plan Frequency and Duration Frequency of Treatment 2x/Week Duration of treatment (weeks) 4 Plan of Care Start Date 05/09/23 Plan of Care End Date 06/04/23 Therapeutic Interventions Therapeutic Interventions Gait Training,Home Exercise Program,Joint Mobilizations, Manual Therapy,Patient/ Caregiver Education,Self-Care/ Home Management,Soft Tissue Mobilization,Therapeutic Exercises
--- NOTE | 2023-05-13 17:44 | PT.OTN ---
Current Diagnoses Polyneuropathy, unspecified (05/13/23) Stiffness of right ankle, not elsewhere classified (05/13/23) Stiffness of left ankle, not elsewhere classified (05/13/23) Systemic sclerosis, unspecified (05/13/23) Muscle weakness (generalized) (05/13/23) Unsteadiness on feet (05/13/23) Other reduced mobility (05/13/23) Physical Therapy Treatment Note PT-OP-A Visit Information Start: 02/14/23 14:58 Freq: Status: Active Protocol: Document 05/13/23 15:59 NBM (Rec: 05/13/23 17:41 NB [id number]) Out-Patient Physical Therapy Visit Information Visit Information Visit Type Treatment Note Visit Start Time 14:00 Visit Stop Time 14:50 Total Visit Minutes 50 Visit Number 16 Number of PULMONOLOGIST Visits 1 Evaluation Information Evaluation Date 02/14/23 PT-OP-B Current Condition Start: 02/14/23 14:58 Freq: Status: Active Protocol: Document 02/14/23 15:04 [facility] (Rec: 02/14/23 15:10 [facility] [id number]) Current Condition History of Current Condition Onset Date 2 months Current Complaints leg and foot pain, decreased balance History of Current Condition Pt notes she started noticing horrible lumps in her lower legs, it causes pain and swelling R > L She wasd diagnosed with cellulitis in the ER. She notes increased neuropathy PT-OP-C Subjective Start: 02/14/23 14:58 Freq: Status: Active Protocol: Document 05/13/23 15:59 NBM (Rec: 05/13/23 17:41 NB [id number]) OP-PT Subjective Patient Comments Patient Comments Fay states she needs to have her new scleroderma prescription filled still but has been feeling overwhelmed. She has pain at her L ankle and brings a foam donut from associate product integrity engineer Dr. Sims to apply to the ankle. PT-OP-D Balance Start: 02/14/23 14:58 Freq: Status: Active Protocol: Document 02/14/23 15:00 [facility] (Rec: 02/21/23 08:06 [facility] [id number]) OP-PT Balance Assessment Sitting Balance Static Sitting Balance Ability Normal Dynamic Sitting Balance Ability Normal Standing Balance Static Standing Balance Ability Fair Dynamic Standing Balance Ability Fair Standing Balance Comments wide base of support Castellanos Fall Scale Copyright Permission PT-OP-G Mobility & Gait Start: 02/14/23 14:58 Freq: Status: Active Protocol: Document 02/14/23 15:00 [facility] (Rec: 02/21/23 08:05 [facility] [id number]) OP Gait Assessment Gait Deviations General Gait Pattern Decreased Stride Length, Decreased Feet Clearance, Flexed Trunk,Step-to Gait Factors Limiting Gait Function Factors Limiting Gait Function Decreased Sensation,Decreased Strength,Limited Range of Motion,Pain Comments Gait Comments neuropathy, pain, and decreased ankle ROM and strength all contribute to gait disturbances PT-OP-K Range of Motion Start: 02/14/23 14:58 Freq: Status: Active Protocol: Document 02/14/23 15:00 [facility] (Rec: 02/20/23 13:09 [facility] [id number]) Ankle and Foot Goniometric Range of Motion Ankle and Foot Right Ankle/Foot ROM WFL No Testing Position Sitting Dorsiflexion with Knee Flexed 2 Dorsiflexion with Knee Extended 2 Plantarflexion 2 Inversion 2 Eversion 2 Comments very limited and poor ankle ROM Left Ankle/Foot ROM WFL No Testing Position Sitting Dorsiflexion with Knee Flexed 3 Dorsiflexion with Knee Extended 2 Plantarflexion 5 Inversion 5 Eversion 5 Comments very limited and poor ankle ROM PT-OP-Q Treatments Start: 02/14/23 14:58 Freq: Status: Active Protocol: Document 05/13/23 15:59 NBM (Rec: 05/13/23 17:41 NBM [id number]) Cardio Equipment Recumbent Stepper (Sci-Fit) Resistance 1.1>2.5 Seat Position 20 min Other pt stayed after treatment to ride stepper Manual Therapy Treatment Soft Tissue Mobilization B patellar tendons Mobilization Type Cross-Friction Intensity/Depth Moderate Body Position Sitting Comments pt is sitting with legs propped on stool plantar fascia and calf musculature Body Location bilateral Mobilization Type Rolling,Strumming,Sustained Pressure Intensity/Depth Moderate Body Position Sitting Comments pt is sitting with legs propped on stool focus to plantar aspect of phalanges and achilles. Joint Mobilizations Patella Joint bilateral Direction superior/inferior Grade II Body Position Sitting Comments long sitting w/ feet on stool; positive feedback response Manual Techniques PROM of the toes B Comments worked on ROM of the metatarsals and encouaged toe flexion manual calf stretch Body Location bilateral Reps/Duration holding into DF for calf stretch x 1 min manual ankle PROM B Type B Ankle manual ROM Comments pt very restriced in B ankles due to progressing scleroderma . She is less tender on tops of her feet today but hand placement still focused underneath to work on ROM in PF and DF Self-Care/Home Management Treatment Education Patient Education Joint Protection,Pain Management,Safety Other Education Pt c/o of pain at lateral malleoli and brings foam donut to place - skin inspection shows small scab over lateral malleoli - pt confirms it was bleeding after associate product integrity engineer Dr. Sims worked on it. Foam donut placed and secured w/ heel lock taping pattern using surgical tape - pt plans to wear for two days and is instructed to remove if any irritation or pain. PT-OP-T Assessment and Plan Start: 02/14/23 14:58 Freq: Status: Active Protocol: Document 05/13/23 15:59 NBM (Rec: 05/13/23 17:41 NB [id number]) Physical Therapy Assessment Goals 4 Impairment unsteadyness of gait and pt is a fall risk Recycling Tech Goal (LTG) Fay is educated on use of assistive devices as well as PT treatments working on ankle ROM and balance to improve ambulation and gait stratagies good progress and Fay has not experienced any recent falls LTG Duration 12 weeks 3 Impairment LE, foot and ankle pain rated 9/10 that limites her ability to walk for exercise Recycling Tech Goal (LTG) Fay reports a overall reduction with foot and leg pain and she is able to return to walking for exercise and riding the stationary bike Good progress and Fay has been able to ride her home seated stair stepper 3 xms per week x 20 min 2 Impairment B Calf and plantar fascia tightness and pain limiting pts ability to walk due to decreased ankle ROM Short Term Goal (STG) Fay is educated in a HEP for ankle mobility and flexibility STG Duration 5 weeks Recycling Tech Goal (LTG) Fay presents with improved ankle ROM and decreased tightness of the calf and plantar fascia Some progress LTG Duration 12 weeks 1 Impairment Poor ankle and foot ROM affecting balance and gait Short Term Goal (STG) Fay presents with improved balance as is able to stand feet together eyes closed x 10 seconds [facility] Goal (LTG) Fay is able to stand x 30 seconds with feet together and eyes closed without loss of balance goal not yet met LTG Duration 12 weeks Assessment Summary Assessment Treatment focus today on improved ROM and flexibility of the LE to reduce fall risk. STM to plantar fascia and calves today with focus to plantar aspect of phalanges and achilles and PROM focus to ankles bilaterally with positive feedback response end of session. Foam donut provided by pt applied to L lateral malleoli and secured with surgical tape in heel- locking pattern w/ instructions to remove if any irritation or pain. Pt does not feel up to doing 25 minutes on Sci-Fit today but stays after to do 20 minutes. help desk consultant contacted to schedule pt for Vestibular following last scheduled PT visit 05/29/23. Physical Therapy Plan Frequency and Duration Frequency of Treatment 2x/Week Duration of treatment (weeks) 4 Plan of Care Start Date 05/09/23 Plan of Care End Date 06/04/23 Therapeutic Interventions Therapeutic Interventions Gait Training,Home Exercise Program,Joint Mobilizations, Manual Therapy,Patient/ Caregiver Education,Self-Care/ Home Management,Soft Tissue Mobilization,Therapeutic Exercises Next Visit Focus/Plan Next Note Type Treatment Note Next Visit Plan continue to work on ankle mobility with manual therapy techniques, diaphragmatic breathing and anterior chest stretches with ball behind her back sitting in a chair, continue with BAPS board for ankle ROM.
--- NOTE | 2023-05-16 16:18 | PT.OTN ---
Current Diagnoses Polyneuropathy, unspecified (05/16/23) Stiffness of right ankle, not elsewhere classified (05/16/23) Stiffness of left ankle, not elsewhere classified (05/16/23) Systemic sclerosis, unspecified (05/16/23) Muscle weakness (generalized) (05/16/23) Unsteadiness on feet (05/16/23) Other reduced mobility (05/16/23) Physical Therapy Treatment Note PT-OP-A Visit Information Start: 02/14/23 14:58 Freq: Status: Active Protocol: Document 05/16/23 15:02 [facility] (Rec: 05/16/23 16:18 [facility] [id number]) Out-Patient Physical Therapy Visit Information Visit Information Visit Type Treatment Note Visit Start Time 15:00 Visit Stop Time 15:45 Total Visit Minutes 45 Visit Number 17 PT-OP-B Current Condition Start: 02/14/23 14:58 Freq: Status: Active Protocol: Document 02/14/23 15:04 [facility] (Rec: 02/14/23 15:10 [facility] [id number]) Current Condition History of Current Condition Onset Date 2 months Current Complaints leg and foot pain, decreased balance History of Current Condition Pt notes she started noticing horrible lumps in her lower legs, it causes pain and swelling R > L She wasd diagnosed with cellulitis in the ER. She notes increased neuropathy PT-OP-C Subjective Start: 02/14/23 14:58 Freq: Status: Active Protocol: Document 05/16/23 15:02 [facility] (Rec: 05/16/23 16:18 [facility] [id number]) OP-PT Subjective Patient Comments Patient Comments Fay reports she has a new pressure sore spot on right foot at the lateral ankle that is really sore PT-OP-D Balance Start: 02/14/23 14:58 Freq: Status: Active Protocol: Document 02/14/23 15:00 [facility] (Rec: 02/21/23 08:06 [facility] [id number]) OP-PT Balance Assessment Sitting Balance Static Sitting Balance Ability Normal Dynamic Sitting Balance Ability Normal Standing Balance Static Standing Balance Ability Fair Dynamic Standing Balance Ability Fair Standing Balance Comments wide base of support Castellanos Fall Scale Copyright Permission PT-OP-G Mobility & Gait Start: 02/14/23 14:58 Freq: Status: Active Protocol: Document 02/14/23 15:00 [facility] (Rec: 02/21/23 08:05 [facility] [id number]) OP Gait Assessment Gait Deviations General Gait Pattern Decreased Stride Length, Decreased Feet Clearance, Flexed Trunk,Step-to Gait Factors Limiting Gait Function Factors Limiting Gait Function Decreased Sensation,Decreased Strength,Limited Range of Motion,Pain Comments Gait Comments neuropathy, pain, and decreased ankle ROM and strength all contribute to gait disturbances PT-OP-K Range of Motion Start: 02/14/23 14:58 Freq: Status: Active Protocol: Document 02/14/23 15:00 [facility] (Rec: 02/20/23 13:09 [facility] [id number]) Ankle and Foot Goniometric Range of Motion Ankle and Foot Right Ankle/Foot ROM WFL No Testing Position Sitting Dorsiflexion with Knee Flexed 2 Dorsiflexion with Knee Extended 2 Plantarflexion 2 Inversion 2 Eversion 2 Comments very limited and poor ankle ROM Left Ankle/Foot ROM WFL No Testing Position Sitting Dorsiflexion with Knee Flexed 3 Dorsiflexion with Knee Extended 2 Plantarflexion 5 Inversion 5 Eversion 5 Comments very limited and poor ankle ROM PT-OP-Q Treatments Start: 02/14/23 14:58 Freq: Status: Active Protocol: Document 05/16/23 15:02 [facility] (Rec: 05/16/23 16:18 [facility] [id number]) Manual Therapy Treatment Soft Tissue Mobilization MFR technique with traction to the LE Comments gentle MFR technique with distal traction in the LE, pt notes she can feel increased circulation with this B patellar tendons Mobilization Type Cross-Friction Intensity/Depth Moderate Body Position Sitting Comments pt is sitting with legs propped on stool Upper, middle traps Body Location B Mobilization Type Myofascial Release,Rolling, Sustained Pressure,Other Intensity/Depth Moderate Body Position Standing Comments manually pec stretch bhavna. cued slow breaths and worked on diaphragmatic breathing in standing plantar fascia and calf musculature Body Location bilateral Mobilization Type Rolling,Strumming,Sustained Pressure Intensity/Depth Moderate Body Position Sitting Comments pt is sitting with legs propped on stool focus to plantar aspect of phalanges and achilles. Joint Mobilizations Patella Joint bilateral Direction superior/inferior Grade II Body Position Sitting Comments long sitting w/ feet on stool; positive feedback response Manual Techniques PROM of the toes B Comments worked on ROM of the metatarsals and encouaged toe flexion manual calf stretch Body Location bilateral Reps/Duration holding into DF for calf stretch x 1 min manual ankle PROM B Type B Ankle manual ROM Comments pt very restriced in B ankles due to progressing scleroderma . She is less tender on tops of her feet today but hand placement still focused underneath to work on ROM in PF and DF PT-OP-T Assessment and Plan Start: 02/14/23 14:58 Freq: Status: Active Protocol: Document 05/16/23 15:02 [facility] (Rec: 05/16/23 16:18 [facility] [id number]) Physical Therapy Assessment Assessment Summary Assessment a pressure relief foam pad was placed on R lateral malleolus with cut out for the red sore . I talked to Fay about the fuzzy socks she is wearing and encouraged a sock for running or hiking that helps prevent against blisters. I am feeling that the fuzzy socks may be causing too much friction on her skin. Fay did stay today after her appt to do the sci fit Physical Therapy Plan Frequency and Duration Frequency of Treatment 2x/Week Duration of treatment (weeks) 4 Plan of Care Start Date 05/09/23 Plan of Care End Date 06/04/23 Therapeutic Interventions Therapeutic Interventions Gait Training,Home Exercise Program,Joint Mobilizations, Manual Therapy,Patient/ Caregiver Education,Self-Care/ Home Management,Soft Tissue Mobilization,Therapeutic Exercises Next Visit Focus/Plan Next Note Type Treatment Note Next Visit Plan Fay has two visits left for her LE and then she will be switching to a new referral for vestibular work
--- NOTE | 2023-05-21 16:00 | PT.OTN ---
Current Diagnoses Polyneuropathy, unspecified (05/21/23) Stiffness of right ankle, not elsewhere classified (05/21/23) Stiffness of left ankle, not elsewhere classified (05/21/23) Systemic sclerosis, unspecified (05/21/23) Muscle weakness (generalized) (05/21/23) Unsteadiness on feet (05/21/23) Other reduced mobility (05/21/23) Physical Therapy Treatment Note PT-OP-A Visit Information Start: 02/14/23 14:58 Freq: Status: Active Protocol: Document 05/21/23 15:01 [facility] (Rec: 05/21/23 15:05 [facility] [id number]) Out-Patient Physical Therapy Visit Information Visit Information Visit Type Treatment Note Visit Start Time 15:00 Visit Stop Time 15:45 Total Visit Minutes 45 Visit Number 18 Precautions Precautions Fay notes she feels tired today PT-OP-B Current Condition Start: 02/14/23 14:58 Freq: Status: Active Protocol: Document 02/14/23 15:04 [facility] (Rec: 02/14/23 15:10 [facility] [id number]) Current Condition History of Current Condition Onset Date 2 months Current Complaints leg and foot pain, decreased balance History of Current Condition Pt notes she started noticing horrible lumps in her lower legs, it causes pain and swelling R > L She wasd diagnosed with cellulitis in the ER. She notes increased neuropathy PT-OP-C Subjective Start: 02/14/23 14:58 Freq: Status: Active Protocol: Document 05/21/23 15:00 [facility] (Rec: 05/22/23 09:24 [facility] [id number]) OP-PT Subjective Patient Comments Patient Comments Fay reports she is feeling over whelmed with the amount of doctors appts she is having now and she is really worried about the bumps that continue to form on her legs Patient Reported Progress Same PT-OP-D Balance Start: 02/14/23 14:58 Freq: Status: Active Protocol: Document 02/14/23 15:00 [facility] (Rec: 02/21/23 08:06 [facility] [id number]) OP-PT Balance Assessment Sitting Balance Static Sitting Balance Ability Normal Dynamic Sitting Balance Ability Normal Standing Balance Static Standing Balance Ability Fair Dynamic Standing Balance Ability Fair Standing Balance Comments wide base of support Castellanos Fall Scale Copyright Permission PT-OP-G Mobility & Gait Start: 02/14/23 14:58 Freq: Status: Active Protocol: Document 02/14/23 15:00 [facility] (Rec: 02/21/23 08:05 [facility] [id number]) OP Gait Assessment Gait Deviations General Gait Pattern Decreased Stride Length, Decreased Feet Clearance, Flexed Trunk,Step-to Gait Factors Limiting Gait Function Factors Limiting Gait Function Decreased Sensation,Decreased Strength,Limited Range of Motion,Pain Comments Gait Comments neuropathy, pain, and decreased ankle ROM and strength all contribute to gait disturbances PT-OP-K Range of Motion Start: 02/14/23 14:58 Freq: Status: Active Protocol: Document 02/14/23 15:00 [facility] (Rec: 02/20/23 13:09 [facility] [id number]) Ankle and Foot Goniometric Range of Motion Ankle and Foot Right Ankle/Foot ROM WFL No Testing Position Sitting Dorsiflexion with Knee Flexed 2 Dorsiflexion with Knee Extended 2 Plantarflexion 2 Inversion 2 Eversion 2 Comments very limited and poor ankle ROM Left Ankle/Foot ROM WFL No Testing Position Sitting Dorsiflexion with Knee Flexed 3 Dorsiflexion with Knee Extended 2 Plantarflexion 5 Inversion 5 Eversion 5 Comments very limited and poor ankle ROM PT-OP-Q Treatments Start: 02/14/23 14:58 Freq: Status: Active Protocol: Document 05/21/23 15:00 [facility] (Rec: 05/22/23 09:24 [facility] [id number]) Manual Therapy Treatment Soft Tissue Mobilization MFR technique with traction to the LE Comments gentle MFR technique with distal traction in the LE, pt notes she can feel increased circulation with this B patellar tendons Mobilization Type Cross-Friction Intensity/Depth Moderate Body Position Sitting Comments pt is sitting with legs propped on stool Upper, middle traps Body Location B Mobilization Type Myofascial Release,Rolling, Sustained Pressure,Other Intensity/Depth Moderate Body Position Standing Comments manually pec stretch bhavna. cued slow breaths and worked on diaphragmatic breathing in standing Manual Techniques manual calf stretch Body Location bilateral Reps/Duration holding into DF for calf stretch x 1 min manual ankle PROM B Type B Ankle manual ROM Comments pt very restriced in B ankles due to progressing scleroderma . She is less tender on tops of her feet today but hand placement still focused underneath to work on ROM in PF and DF PT-OP-T Assessment and Plan Start: 02/14/23 14:58 Freq: Status: Active Protocol: Document 05/21/23 15:00 [facility] (Rec: 05/22/23 09:24 [facility] [id number]) Physical Therapy Assessment Assessment Summary Assessment I added an additional pressure relief pad on the right lateral 5th toe today. Fay is presenting with increased hot spots on her feet and legs . She did switch out her socks to wool ones. She has one visit left in PT and is working on getting a referral for vertigo and vestibular training with [facility] Physical Therapy Plan Frequency and Duration Frequency of Treatment 2x/Week Duration of treatment (weeks) 4 Plan of Care Start Date 05/09/23 Plan of Care End Date 06/04/23 Therapeutic Interventions Therapeutic Interventions Gait Training,Home Exercise Program,Joint Mobilizations, Manual Therapy,Patient/ Caregiver Education,Self-Care/ Home Management,Soft Tissue Mobilization,Therapeutic Exercises Next Visit Focus/Plan Next Note Type Treatment Note Next Visit Plan Fay has one visit left in PT, review HEP and continue with manual therapy work next visit
--- NOTE | 2023-06-16 17:56 | PT.OTN ---
Current Diagnoses Polyneuropathy, unspecified (06/11/23) Stiffness of right ankle, not elsewhere classified (06/11/23) Stiffness of left ankle, not elsewhere classified (06/11/23) Systemic sclerosis, unspecified (06/11/23) Muscle weakness (generalized) (06/11/23) Unsteadiness on feet (06/11/23) Other reduced mobility (06/11/23) Physical Therapy Treatment Note PT-OP-A Visit Information Start: 02/14/23 14:58 Freq: Status: Active Protocol: Document 06/11/23 16:59 [facility] (Rec: 06/11/23 17:00 [facility] [id number]) Out-Patient Physical Therapy Visit Information Visit Information Visit Type Treatment Note Visit Start Time 15:15 Visit Stop Time 16:00 Total Visit Minutes 45 Visit Number 19 PT-OP-B Current Condition Start: 02/14/23 14:58 Freq: Status: Active Protocol: Document 02/14/23 15:04 [facility] (Rec: 02/14/23 15:10 [facility] [id number]) Current Condition History of Current Condition Onset Date 2 months Current Complaints leg and foot pain, decreased balance History of Current Condition Pt notes she started noticing horrible lumps in her lower legs, it causes pain and swelling R > L She wasd diagnosed with cellulitis in the ER. She notes increased neuropathy PT-OP-C Subjective Start: 02/14/23 14:58 Freq: Status: Active Protocol: Document 06/11/23 15:15 [facility] (Rec: 06/16/23 17:56 [facility] [id number]) OP-PT Subjective Patient Comments Patient Comments Fay reports she has been using her stair stepper at home PT-OP-D Balance Start: 02/14/23 14:58 Freq: Status: Active Protocol: Document 02/14/23 15:00 [facility] (Rec: 02/21/23 08:06 [facility] [id number]) OP-PT Balance Assessment Sitting Balance Static Sitting Balance Ability Normal Dynamic Sitting Balance Ability Normal Standing Balance Static Standing Balance Ability Fair Dynamic Standing Balance Ability Fair Standing Balance Comments wide base of support Castellanos Fall Scale Copyright Permission PT-OP-G Mobility & Gait Start: 02/14/23 14:58 Freq: Status: Active Protocol: Document 02/14/23 15:00 [facility] (Rec: 02/21/23 08:05 [facility] [id number]) OP Gait Assessment Gait Deviations General Gait Pattern Decreased Stride Length, Decreased Feet Clearance, Flexed Trunk,Step-to Gait Factors Limiting Gait Function Factors Limiting Gait Function Decreased Sensation,Decreased Strength,Limited Range of Motion,Pain Comments Gait Comments neuropathy, pain, and decreased ankle ROM and strength all contribute to gait disturbances PT-OP-K Range of Motion Start: 02/14/23 14:58 Freq: Status: Active Protocol: Document 02/14/23 15:00 [facility] (Rec: 02/20/23 13:09 [facility] [id number]) Ankle and Foot Goniometric Range of Motion Ankle and Foot Right Ankle/Foot ROM WFL No Testing Position Sitting Dorsiflexion with Knee Flexed 2 Dorsiflexion with Knee Extended 2 Plantarflexion 2 Inversion 2 Eversion 2 Comments very limited and poor ankle ROM Left Ankle/Foot ROM WFL No Testing Position Sitting Dorsiflexion with Knee Flexed 3 Dorsiflexion with Knee Extended 2 Plantarflexion 5 Inversion 5 Eversion 5 Comments very limited and poor ankle ROM PT-OP-Q Treatments Start: 02/14/23 14:58 Freq: Status: Active Protocol: Document 06/11/23 15:15 [facility] (Rec: 06/16/23 17:56 [facility] [id number]) Manual Therapy Treatment Soft Tissue Mobilization B patellar tendons Mobilization Type Cross-Friction Intensity/Depth Moderate Body Position Sitting Comments pt is sitting with legs propped on stool plantar fascia and calf musculature Body Location bilateral Mobilization Type Rolling,Strumming,Sustained Pressure Intensity/Depth Moderate Body Position Sitting Comments pt is sitting with legs propped on stool focus to plantar aspect of phalanges and achilles. Joint Mobilizations Patella Joint bilateral Direction superior/inferior Grade II Body Position Sitting Comments long sitting w/ feet on stool; positive feedback response Manual Techniques PROM of the toes B Comments worked on ROM of the metatarsals and encouaged toe flexion manual calf stretch Body Location bilateral Reps/Duration holding into DF for calf stretch x 1 min manual ankle PROM B Type B Ankle manual ROM Comments pt very restriced in B ankles due to progressing scleroderma . She is less tender on tops of her feet today but hand placement still focused underneath to work on ROM in PF and DF PT-OP-T Assessment and Plan Start: 02/14/23 14:58 Freq: Status: Active Protocol: Document 06/11/23 15:15 [facility] (Rec: 06/16/23 17:56 [facility] [id number]) Physical Therapy Assessment Assessment Summary Assessment Fay needed a additional pressure pad on her lateral 5th metatarsal today, she continues to present with pressure sores. We have discussed changing socks and she is trying that. She continues to have regular visits with her foot doctor. At this time Fay will be finished with PT for scleraderma and will work on vestibular rehab for dizzyness . She will be discharged to a [facility] and will continue with her stair stepper at home. Physical Therapy Plan Discharge Physical Therapy Discharge Reasons Plateau in Progress
--- NOTE | 2023-06-16 17:56 | PT.OPDS ---
Current Diagnoses Polyneuropathy, unspecified (06/11/23) Stiffness of right ankle, not elsewhere classified (06/11/23) Stiffness of left ankle, not elsewhere classified (06/11/23) Systemic sclerosis, unspecified (06/11/23) Muscle weakness (generalized) (06/11/23) Unsteadiness on feet (06/11/23) Other reduced mobility (06/11/23) Visit Care Team Role Provider Type Timur Schwartz MD Attending Provider Physician Family Provider Primary Care Provider Referring Provider Specialty: Internal Medicine Address: [address] [place] [address] Email: [email or web address] Visit Number Visit Number 19 Discharge Summary PT-OP-B Current Condition Start: 02/14/23 14:58 Freq: Status: Active Protocol: Document 02/14/23 15:04 [facility] (Rec: 02/14/23 15:10 [facility] [id number]) Current Condition History of Current Condition Onset Date 2 months Current Complaints leg and foot pain, decreased balance History of Current Condition Pt notes she started noticing horrible lumps in her lower legs, it causes pain and swelling R > L She wasd diagnosed with cellulitis in the ER. She notes increased neuropathy PT-OP-C Subjective Start: 02/14/23 14:58 Freq: Status: Active Protocol: Document 06/11/23 15:15 [facility] (Rec: 06/16/23 17:56 [facility] [id number]) OP-PT Subjective Patient Comments Patient Comments Fay reports she has been using her stair stepper at home PT-OP-D Balance Start: 02/14/23 14:58 Freq: Status: Active Protocol: Document 02/14/23 15:00 [facility] (Rec: 02/21/23 08:06 [facility] [id number]) OP-PT Balance Assessment Sitting Balance Static Sitting Balance Ability Normal Dynamic Sitting Balance Ability Normal Standing Balance Static Standing Balance Ability Fair Dynamic Standing Balance Ability Fair Standing Balance Comments wide base of support Castellanos Fall Scale Copyright Permission PT-OP-G Mobility & Gait Start: 02/14/23 14:58 Freq: Status: Active Protocol: Document 02/14/23 15:00 [facility] (Rec: 02/21/23 08:05 [facility] [id number]) OP Gait Assessment Gait Deviations General Gait Pattern Decreased Stride Length, Decreased Feet Clearance, Flexed Trunk,Step-to Gait Factors Limiting Gait Function Factors Limiting Gait Function Decreased Sensation,Decreased Strength,Limited Range of Motion,Pain Comments Gait Comments neuropathy, pain, and decreased ankle ROM and strength all contribute to gait disturbances PT-OP-K Range of Motion Start: 02/14/23 14:58 Freq: Status: Active Protocol: Document 02/14/23 15:00 [facility] (Rec: 02/20/23 13:09 [facility] [id number]) Ankle and Foot Goniometric Range of Motion Ankle and Foot Right Ankle/Foot ROM WFL No Testing Position Sitting Dorsiflexion with Knee Flexed 2 Dorsiflexion with Knee Extended 2 Plantarflexion 2 Inversion 2 Eversion 2 Comments very limited and poor ankle ROM Left Ankle/Foot ROM WFL No Testing Position Sitting Dorsiflexion with Knee Flexed 3 Dorsiflexion with Knee Extended 2 Plantarflexion 5 Inversion 5 Eversion 5 Comments very limited and poor ankle ROM PT-OP-T Assessment and Plan Start: 02/14/23 14:58 Freq: Status: Active Protocol: Document 06/11/23 15:15 [facility] (Rec: 06/16/23 17:56 [facility] [id number]) Physical Therapy Assessment Assessment Summary Assessment Fay needed a additional pressure pad on her lateral 5th metatarsal today, she continues to present with pressure sores. We have discussed changing socks and she is trying that. She continues to have regular visits with her foot doctor. At this time Fay will be finished with PT for scleraderma and will work on vestibular rehab for dizzyness . She will be discharged to a [facility] and will continue with her stair stepper at home. Physical Therapy Plan Discharge Physical Therapy Discharge Reasons Plateau in Progress
== END 2023-06-19 13:10 | disposition home or self-care (01) ==
LOC: PHYS 15:15
PROVIDERS: Family Provider Internal Medicine; PCP Internal Medicine; Referring Provider Internal Medicine; Visit Provider Internal Medicine
DX: M34.9 Systemic sclerosis, unspecified (principal); M25.671 Stiffness of right ankle, not elsewhere classified; M25.672 Stiffness of left ankle, not elsewhere classified; R26.81 Unsteadiness on feet; M62.81 Muscle weakness (generalized); Z74.09 Other reduced mobility; G62.9 Polyneuropathy, unspecified
CPT/HCPCS: 97110; 97112; 97140; 97161; 97535

== ENCOUNTER → 2023-07-12 17:34 | Outpatient (CLI) | payer MEDICARE, MEDICAID, SELFPAY ==
[2023-01-21 15:46] VITALS: BMI 24.4
[2023-07-12 17:49] LABS: Hematocrit 34.3 % (36-46); Mean Corpuscular Hemoglobin 26.2 PG (26-34); Mean Corpuscular Volume 81.7 fL (80-100); Platelet Count 108 X10^3/uL (150-400); Red Blood Cell Count 4.19 X10^6/uL (4.0-5.2); Red Cell Distribution Width 18.6 % (11.6-14.8); White Blood Cell Count 5.1 X10^3/uL (4.5-11.0)
[2023-07-12 18:04] LABS: Hemoglobin A1C% w Est Avg Glu 6.7 % (4.0-6.0)
[2023-07-12 18:05] LABS: Alanine Aminotransferase 16 IU/L (<35); Albumin 3.6 g/dL (3.5-5.0); Albumin Globulin Ratio 0.8 (1.0-2.8); Alkaline Phosphatase 156 U/L (38-126); Aspartate Aminotransferase 44 IU/L (14-36); BUN Creatinine Ratio 28.4 (6-22); Bilirubin Total 1.3 mg/dL (0.2-1.3); Blood Urea Nitrogen 29 mg/dL (7-17); Calcium 10.4 mg/dL (8.4-10.2); Carbon Dioxide 26 mmol/L (22-32); Chloride 103 mmol/L (98-107); Cholesterol 118 mg/dL (140-199); Estimated Glomerular Filt Rate 60 mL/min (>60); Globulin 4.7 g/dL (1.7-4.1); Glucose 161 mg/dL (80-110); HDL Cholesterol 50 mg/dL (40-60); HEMOLYSIS < 15 (0-50); LDL Cholesterol Calculated 52 mg/dL (<100); Sodium 136 mmol/L (137-145); Total Protein 8.3 g/dL (6.3-8.2); Triglycerides 79 mg/dL (35-150)
[2023-07-12 18:50] LABS: TSH w/ Reflex to FT4 4.37 uIU/mL (0.47-4.68)
== END ==
PROVIDERS: Family Provider Internal Medicine; PCP Internal Medicine; Referring Provider Internal Medicine; Visit Provider Internal Medicine
DX: E03.9 Hypothyroidism, unspecified (principal); E78.2 Mixed hyperlipidemia; N25.81 Secondary hyperparathyroidism of renal origin
CPT/HCPCS: 36415; 80053; 80061; 83036; 84443; 85027

== ENCOUNTER 2023-07-31 15:15 | Outpatient (RCR) | payer MEDICARE, MEDICAID, SELFPAY ==
[2023-01-21 15:46] VITALS: BMI 24.4
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
--- NOTE | 2023-07-25 17:43 | PT.OPPOC ---
Physical, Occupational & Speech Therapy At [facility] Current Diagnoses Unsteadiness on feet (07/25/23) Dizziness and giddiness (07/25/23) History of falling (07/25/23) Visit Care Team Role Provider Type Timur Schwartz MD Attending Provider Physician Family Provider Primary Care Provider Referring Provider Specialty: Internal Medicine Address: [address] [place] [address], [facility] Email: [email or web address] Plan Of Care PT-OP-T Assessment and Plan Start: 07/25/23 17:09 Freq: Status: Active Protocol: Document 07/25/23 15:15 [facility] (Rec: 07/25/23 17:38 [facility] [id number]) Physical Therapy Assessment Rehab Potential Rehabilitation Potential Fair Evaluation Complexity Number of Personal Factors/Comorbidities 3 or More Number of Body Systems Impaired 4 or More Clinical Presentation at Evaluation Unstable Impairments Impairments Activity Tolerance,Balance, Coordination,Functional Activities,Functional Mobility ,Gait,Sensation,Soft Tissue Mobility,Strength,Tone, Vestibular Goals 4 Impairment Pt demonstrated a fall reaction in CTSIB positions II , III, IV, V, and Lead Android Developer Goal (LTG) Pt to exhibit decreased instability by tolerating CTSIB positions II and IV with moderate sway for at least 30 seconds LTG Duration 10/23/23 3 Impairment Bilateral hip abduction MMT scores 3-/5 Prison Goal (LTG) Pt to improve hip abduction MMT to at least 4-/5 in order to improve ability to perform hip strategies to improve stabilizing response to loss of balance LTG Duration 10/23/23 2 Impairment Pt DVA testing shows a 5 line degradation Prison Goal (LTG) Pt to demonstrate improve vestibular function and VOR retraining by decreasing DVA line degradation to 3 or less. LTG Duration 10/23/23 1 Impairment Pt does not have an appropriate home exercise program Short Term Goal (STG) Pt to be independent and compliant with an appropriate HEP STG Duration 09/05/23 Assessment Summary Assessment Pt presents with a highly complex, multi-factorial decrease in balance and stability, including decreased sensation, bilateral vestibular hypofunction, potentially due to presbystasis, and significant hip weakness. High falls risk, per medication list, CTSIB results, and history of falls. Focus during today's assessment was largely contained to vestibular testing, however will likely benefit from continued functional testing, including DGI and 30 second Sit to Stand . Pt should benefit from skilled therapeutic intervention focusing on general balance and conditioning, vestibular habituation/adaptation exercises, LE strengthening, and improving activity tolerance. Physical Therapy Plan Frequency and Duration Frequency of Treatment 2x/Week Plan of Care Start Date 07/25/23 Plan of Care End Date 10/23/23 Therapeutic Interventions Therapeutic Interventions Balance Training,Coordination Training,Gait Training,Home Exercise Program,Manual Therapy,Neuromuscular Re- education,Patient/Caregiver Education,Self-Care/Home Management,Soft Tissue Mobilization,Therapeutic Activities,Therapeutic Exercises,Vestibular Rehabilitation Next Visit Focus/Plan Next Note Type Treatment Note Next Visit Plan DGI, 30 second Sit to Stand, hip strengthening, balance training Plan of Care Dates Plan of Care Start Date 07/25/23 Plan of Care End Date 10/23/23 Electronically Signed by: Fredy Alegre, PT 07/25/23 0837 If you are in agreement with this Plan of Care, please return a signed and dated copy. I have reviewed this Plan of Care and certify that the skilled therapy services above are required to meet the patient?s needs. Physician Signature Date Printed Name and Credentials Clinical Instructor Signature Printed Name and Credentials
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
--- NOTE | 2023-08-27 16:32 | PT-OP ANOTE ---
Pt no-showed to her appointment today. Therapist phoned and left message checking on her, and reminding her of the next scheduled appointment.
--- NOTE | 2023-09-02 14:13 | PT-OP ANOTE ---
Pt no-showed once again to 09/02/23 appointment. Therapist called to remind of attendance policy, and provide pt with time of next scheduled visit. Pt warned that another no-show would result in discharge.
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
== END 2023-09-17 10:08 | disposition home or self-care (01) ==
LOC: PHYS 15:15
PROVIDERS: Family Provider Internal Medicine; PCP Internal Medicine; Referring Provider Internal Medicine; Visit Provider Internal Medicine
DX: R26.81 Unsteadiness on feet (principal); R42 Dizziness and giddiness; Z91.81 History of falling
CPT/HCPCS: 97110; 97112; 97163

== ENCOUNTER → 2023-07-31 17:06 | Outpatient (CLI) | payer MEDICARE, MEDICAID, SELFPAY ==
[2023-01-21 15:46] VITALS: BMI 24.4
[2023-07-31 18:21] LABS: Creatinine Urine Random 292.6 mg/dL
[2023-07-31 18:28] LABS: Microalbumi Creatinin Ratio Ur 17.4 ug/mg CR (<30); Microalbumin Urine Random 5.1 mg/dL (0-1.6)
== END ==
LOC: LAB 17:08
PROVIDERS: Family Provider Internal Medicine; PCP Internal Medicine; Referring Provider Internal Medicine; Visit Provider Internal Medicine
DX: N25.81 Secondary hyperparathyroidism of renal origin (principal); E03.9 Hypothyroidism, unspecified
CPT/HCPCS: 82043; 82570

== ENCOUNTER 2023-08-10 16:42 | Emergency (ER) | payer MEDICARE, MEDICAID, SELFPAY ==
[2023-01-21 15:46] VITALS: BMI 24.4
[2023-08-10] VITALS (11 sets, daily range): BP systolic 110–136; BP diastolic 57–62; PULSE 75–84; RESP 16–30; TEMP 36.4; O2SAT 96–99; BMI 22.3
--- NOTE | 2023-08-10 17:26 | DI.RAD.S_ITS ---
PROCEDURE: XR CHEST 1V INDICATIONS: DYSPNEA TECHNIQUE: One view of the chest was acquired. COMPARISON: [facility], CR, XR CHEST 1V, 01/18/2023, 23:02. [facility], CR, XR CHEST 1V, 04/01/2022, 12:02. FINDINGS: Surgical changes and devices: None. Lungs and pleura: Low lung volumes are seen bilaterally with probable bibasilar atelectasis. Small left pleural effusion. Mediastinum: Mediastinal contours appear normal. Heart size is normal. Bones and chest wall: No suspicious bony lesions. Overlying soft tissues appear unremarkable. Left rotator cuff calcific tendinopathy. IMPRESSION: Small left pleural effusion. Low lung volumes bilaterally with bibasilar atelectasis. Approved by: Dillon Dee M.D. on 08/10/2023 at 18:23
--- NOTE | 2023-08-10 17:27 | DI.CT.S_ITS ---
PROCEDURE: CT ABDOMEN PELVIS W CON INDICATIONS: ABD DISTENSION, RUQ PAIN TECHNIQUE: After the administration of intravenous contrast, axial sections acquired from the lung bases to the pubic symphysis. Coronal and sagittal reformats were performed. For radiation dose reduction, the following was used: automated exposure control, adjustment of mA and/or kV according to patient size. COMPARISON: [facility], CT, CT ABDOMEN PELVIS W CON, 02/04/2022, 15:32. FINDINGS: Image quality: Diagnostic. Lower Chest: Trace bilateral pleural effusions with atelectasis of the lung bases. ABDOMEN: Liver: Nodular appearance of the liver. No enhancing mass is seen in the portal venous phase of contrast enhancement. Gallbladder: Large calcified gallstones are seen. No significant gallbladder wall thickening identified. Biliary ducts: No biliary dilation. Pancreas: No ductal dilation. Spleen: Spleen is borderline in size. Adrenal Glands: No adrenal nodules. Kidneys and Ureters: No hydronephrosis. No solid mass. No complex renal cystic lesion which requires follow up. Stomach and Bowel: Normal colonic caliber, without significant wall thickening. Multiple diverticula are seen in the colon without signs of acute diverticulitis. A diverticulum is seen at the 2nd portion of the duodenum without acute inflammatory changes. Peritoneum: Moderate volume of ascites is seen throughout the abdomen and pelvis. No pneumoperitoneum. Ventral Wall: No hernia. Nonspecific subcutaneous edema and skin thickening is seen in the anterior abdominal wall. Subcutaneous calcifications are seen in the flanks bilaterally, possibly related to prior medication injections. Abdominal Nodes: No retroperitoneal or mesenteric adenopathy by size criteria. Vessels: Aorta and inferior vena cava are normal in size. Small paraesophageal varices are present. PELVIS: Pelvic Organs: Unremarkable. Bladder: Unremarkable. Pelvic Nodes: No enlarged lymph nodes. Miscellaneous: No inguinal hernias are seen. Bones: No aggressive osseous abnormality. IMPRESSION: 1. Hepatic cirrhosis. Liver has decreased in size when compared to the prior CT from 02/04/2022. 2. Moderate ascites throughout the abdomen and pelvis, which has increased when compared to the prior CT. 3. Additional signs of portal hypertension including borderline splenomegaly and small paraesophageal varices. 4. Cholelithiasis. 5. Colonic diverticulosis without signs of acute diverticulitis. Approved by: Dillon Dee M.D. on 08/10/2023 at 19:47
[2023-08-10 17:38] LABS: Ammonia (NH3) 36 umol/L (9-30)
--- NOTE | 2023-08-10 18:07 | PC.NURSE ---
spoke with venancio in the lab reporting that she is going to find the tubes and will call back if new samples are needed
[2023-08-10 18:08] LABS: Add Manual Diff / Slide Review NO; Basophils Absolute Auto 100 /uL (0-100); Eosinophils Absolute Auto 100 /uL (0-450); Hematocrit 34.6 % (36-46); Hemoglobin 11.1 g/dL (12.0-16.0); Lymphocytes Absolute Auto 400 /uL (1100-4500); Lymphocytes Percent Auto 6.1 % (25-40); Mean Corpuscular Hemoglobin 25.7 PG (26-34); Mean Corpuscular Volume 80.3 fL (80-100); Monocytes Absolute Auto 800 /uL (0-900); Monocytes Percent Auto 11.8 % (3-14); Neutrophils Absolute Auto 5300 /uL (1500-7000); Neutrophils Percent Auto 79.1 % (50-75); Platelet Count 120 X10^3/uL (150-400); Red Blood Cell Count 4.31 X10^6/uL (4.0-5.2); Red Cell Distribution Width 18.4 % (11.6-14.8); White Blood Cell Count 6.7 X10^3/uL (4.5-11.0)
[2023-08-10 18:18] LABS: Alanine Aminotransferase 13 IU/L (<35); Albumin 3.4 g/dL (3.5-5.0); Albumin Globulin Ratio 0.7 (1.0-2.8); Alkaline Phosphatase 180 U/L (38-126); Aspartate Aminotransferase 30 IU/L (14-36); BUN Creatinine Ratio 29.8 (6-22); Bilirubin Total 1.4 mg/dL (0.2-1.3); Blood Urea Nitrogen 36 mg/dL (7-17); Calcium 10.1 mg/dL (8.4-10.2); Carbon Dioxide 29 mmol/L (22-32); Chloride 102 mmol/L (98-107); Creatine Kinase 36 U/L (30-135); Estimated Glomerular Filt Rate 49 mL/min (>60); Globulin 4.9 g/dL (1.7-4.1); Glucose 146 mg/dL (80-110); HEMOLYSIS < 15 (0-50); Lipase 114 U/L (23-300); Potassium 3.8 mmol/L (3.4-5.1); Sodium 138 mmol/L (137-145); Total Protein 8.3 g/dL (6.3-8.2)
--- NOTE | 2023-08-10 18:26 | ED.CHESTPAIN ---
HPI - Chest Pain General Chief Complaint: Chest Pain Stated Complaint: SOB, Chest pain, ABD pain Time Seen by Provider: 08/10/23 16:57 Source: patient, RN notes reviewed, old records reviewed and other (friend at bedside) Limitations: no limitations History of Present Illness HPI narrative: This is a 68-year-old female with history of AML remotely and in remission with prior whole-body radiation, chronic kidney disease, hyperparathyroidism, hypothyroidism, dyslipidemia, coronary artery disease, cxiwp-yimjab-nubq disease, anemia, restrictive lung disease, scleroderma, known cirrhosis, and diabetes with complaint of abdominal pain that has been going on for some time. As well as increased shortness of breath. Patient states she has not had any fevers or chills. She denies any chest pain or pressure. No nausea or vomiting. She states she has not had increasing orthopnea. She normally has a orthopnea at baseline but has needed to be more upright and felt more short of breath. She chronically has not distended abdomen that is quite hard from her prior radiation. But she has had increased pain more on the right side but radiates across to the left. Patient states that she has known gallstones. Patient states she has had watery like stools frequently. She is dropped off a stool sample at the request of Dr. Schwartz. Patient denies any black or bloody stools. No new urinary symptoms. She has noted that her legs feel more tight lately. She states they are very skinny but they have felt tighter than they normally do. She is allergic to morphine, oxycodone and hydrocodone. Develops anaphylaxis with Pall Blood Filter. She is on Xifaxan but not on lactulose currently. No tobacco, occasional alcohol, no recreational drugs. Related Data Home Medications Medication Instructions Recorded Confirmed levothyroxine 50 mcg tablet 25 mcg PO DAILY ##0 07/17/11 06/27/23 cinacalcet 30 mg tablet (Sensipar) 30 mg PO DAILY ##0 12/16/16 06/27/23 rifaximin 550 mg tablet 550 mg PO BID 30 days #60 tabs 06/25/18 06/27/23 aspirin 81 mg tablet,delayed 81 mg PO DAILY 08/12/19 06/27/23 release metoprolol succinate 25 mg 25 mg PO DAILY 08/12/19 06/27/23 tablet,extended release 24 hr nitroglycerin 0.4 mg sublingual 0.4 mg sublingual PRN PRN chest 08/12/19 06/27/23 tablet pain insulin regular hum U-500 conc 500 50 unit SUBCUT TID 01/20/20 06/27/23 unit/mL(3 mL) subcut pen (Humulin R U-500 (Conc) Insulin Kwikpen) atorvastatin 80 mg tablet 80 mg PO DAILY 11/06/21 06/27/23 cholecalciferol (vitamin D3) 25 25 mcg PO DAILY 11/06/21 06/27/23 mcg (1,000 unit) tablet insulin lispro 200 unit/mL (3 mL) 50 unit SUBCUT DAILY 11/06/21 06/27/23 subcutaneous pen (Humalog KwikPen U-200 Insulin) olopatadine 0.1 % eye drops 1 drp EYE-BOTH BID 11/06/21 06/27/23 spironolactone 50 mg tablet 50 mg PO DAILY 11/06/21 06/27/23 pen needle, diabetic 31 gauge x #50 ea 02/15/22 06/27/23 3/16 (BD Ultra-Fine Mini Pen Needle) pen needle, diabetic 32 gauge x #100 ea 02/15/22 06/27/23 1/6 (NovoFine Plus) alcohol swabs (Alcohol Prep Pads) 1 pad topical TID PRN 12/21/22 06/27/23 blood sugar diagnostic (OneTouch #10 ea 12/21/22 06/27/23 Verio test strips) empty container (Spongecells ea miscellaneous 12/21/22 06/27/23 Testing Consultant) magnesium oxide 400 mg (241.3 mg 400 mg PO DAILY 12/21/22 06/27/23 magnesium) tablet risankizumab-rzaa 150 mg/mL 150 mg SUBCUT Q12W 12/21/22 06/27/23 subcutaneous pen injector (Micehal) triamcinolone acetonide 0.05 % 1 applic topical BID 12/21/22 06/27/23 topical ointment desvenlafaxine 100 mg 100 mg PO DAILY 06/27/23 06/27/23 tablet,extended release 24 hr desvenlafaxine 50 mg 50 mg PO DAILY 06/27/23 06/27/23 tablet,extended release 24 hr Previous Rx's Medication Instructions Recorded Disabled Parking Permit 1 ea Not Applicable DAILY #1 ea 12/21/22 chavez.stocking,knee,reg,smal #2 ea 01/24/23 ondansetron 4 mg disintegrating 4 mg PO QID PRN nausea and 08/10/23 tablet vomiting #10 tabs tramadol 50 mg tablet 50 mg PO Q6H PRN pain #10 tabs 08/10/23 Allergies Allergy/AdvReac Type Severity Reaction Status Date / Time hydrocodone Allergy ITCHING Verified 06/27/23 16:12 oxycodone Allergy ITCHING Verified 06/27/23 16:12 propofol AdvReac Unknown Verified 06/27/23 16:12 morphine AdvReac Vomiting Verified 06/27/23 16:12 Pall Blood Filter Allergy Severe Anaphylaxis Uncoded 06/27/23 16:12 Review of Systems Review of Systems ROS Unobtainable: All systems reviewed & are unremarkable except as noted in HPI and below Patient History Medical History Venous (peripheral) insufficiency Carotid stenosis Concussion Decubitus ulcer of coccyx Gallstone pancreatitis Generalized anxiety disorder Chronic kidney disease, stage 3a Hyperparathyroidism, secondary renal Acquired hypothyroidism Mixed hyperlipidemia Coronary artery disease 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 Thrombocytopenia Restrictive lung disease Scleroderma History of ST elevation myocardial infarction (STEMI) History of upper gastrointestinal bleeding AML (acute myeloid leukemia) in remission Hepatic encephalopathy Psoriasis Cirrhosis Depression Generalized anxiety disorder Obsessive compulsive disorder Surgical History History of coronary artery stent placement History of colonoscopy History of bone marrow transplant Family History Father Heart disease S/P CABG x 4 Hypertension Mother Gallstones Brother No significant medical problems Sister Diabetes mellitus Social History marital status: unknown household members: none Smoking Status: Never smoker alcohol intake: former substance use type: does not use Smoking Status: Never smoker alcohol intake frequency: 0-2 drinks per day Substance Use Type: does not use Exam Narrative Exam Narrative: GENERAL: Alert and oriented x three, thin female in mild distress. HEENT: Head normocephalic, atraumatic, EOMI, pupils reactive, face symmetric, moist mucous membranes NECK: Supple, full range of motion CARDIOVASCULAR: Regular rate and rhythm without murmurs, rubs or gallops. Patient is seated upright. No obvious JVD. No obvious edema bilateral lower extremities. RESPIRATORY: Breath sounds equal bilaterally, no wheezes rales or rhonchi. No tachypnea or accessory muscle use. ABDOMEN: Soft, nontender. Normoactive bowel sounds all 4 quadrants. No guarding or rebound, rigidity, no mass : No CVA tenderness EXTREMITIES: Normal range of motion, no clubbing or edema. Patient has changes consistent with scleroderma of her lower extremities and per patient and her baseline without any obvious swelling or erythema of the skin is tense and thickened. Neurovascularly intact NEUROLOGICAL: Cranial nerves II through XII grossly intact. Moving all extremities SKIN: Warm, dry, no petechiae, no rashes or lesions otherwise noted. Initial Vital Signs Initial Vital Signs: Vital Signs Temperature 97.6 F 08/10/23 16:56 Pulse Rate 84 08/10/23 16:56 Respiratory Rate 16 08/10/23 16:56 Pulse Oximetry 97 08/10/23 16:56 Oxygen Delivery Method Room Air 08/10/23 16:56 Course Orders Ordered: ED Orders 08/10/23 17:00 Ammonia (NH3) Stat BNP [NT-proBNP (BNP-Adult 18+)] Stat Complete Blood Count AUTO DIFF Stat Comprehensive Metabolic Panel Stat Lipase Stat Troponin & CK Cardiac Panel Stat 08/10/23 17:26 XR chest 1V Stat 08/10/23 17:27 CT abdomen pelvis w con Stat 08/10/23 18:06 EKG-12 Lead Stat Discontinued Medications Ondansetron HCl (Ondansetron 4 Mg Odt Prepack) 1 bottle MISC DIRECTED ONE Stop: 08/10/23 21:03 Last Admin: 08/10/23 21:14 Dose: 1 bottle Documented By: LUIS F Tramadol HCl (Tramadol 50 Mg Prepack) 1 bottle MISC DIRECTED ONE Stop: 08/10/23 21:03 Last Admin: 08/10/23 21:14 Dose: 1 bottle Documented By: LUIS F Vital Signs Vital signs: Vital Signs - 8 hr 08/10/23 16:56 08/10/23 17:00 08/10/23 17:03 Temperature 97.6 F Pulse Rate 84 79 79 Respiratory Rate 16 28 H 27 H Blood Pressure Pulse Oximetry 97 97 98 Oxygen Delivery Method Room Air 08/10/23 17:03 08/10/23 17:30 08/10/23 17:30 Temperature Pulse Rate 80 Respiratory Rate 22 Blood Pressure 110/59 L 128/60 Pulse Oximetry 97 Oxygen Delivery Method 08/10/23 18:00 08/10/23 18:00 08/10/23 18:45 Temperature Pulse Rate 76 82 Respiratory Rate 24 30 H Blood Pressure 117/61 Pulse Oximetry 97 96 Oxygen Delivery Method 08/10/23 18:45 08/10/23 19:00 08/10/23 19:00 Temperature Pulse Rate 81 Respiratory Rate 22 Blood Pressure 136/61 136/62 Pulse Oximetry 96 Oxygen Delivery Method 08/10/23 19:30 08/10/23 19:30 08/10/23 20:00 Temperature Pulse Rate 79 78 Respiratory Rate 24 24 Blood Pressure 115/61 Pulse Oximetry 98 98 Oxygen Delivery Method 08/10/23 20:00 08/10/23 20:30 08/10/23 20:30 Temperature Pulse Rate 79 Respiratory Rate 24 Blood Pressure 120/60 118/60 Pulse Oximetry 99 Oxygen Delivery Method 08/10/23 21:00 08/10/23 21:00 Temperature Pulse Rate 75 Respiratory Rate 22 Blood Pressure 117/57 L Pulse Oximetry 97 Oxygen Delivery Method MDM - Chest Pain Lab Data 08/10/23 17:00 08/10/23 17:00 Labs: Lab Results 08/10/23 Range/Units 17:00 WBC 6.7 (4.5-11.0) X10^3/uL RBC 4.31 (4.0-5.2) X10^6/uL Hgb 11.1 L (12.0-16.0) g/dL Hct 34.6 L (36-46) % MCV 80.3 (80-100) fL MCH 25.7 L (26-34) PG MCHC 32.0 (30-36) % RDW 18.4 H (11.6-14.8) % Plt Count 120 L (150-400) X10^3/uL Neut % (Auto) 79.1 H (50-75) % Lymph % (Auto) 6.1 L (25-40) % Harris % (Auto) 11.8 (3-14) % Eos % (Auto) 2.0 (2-4) % Baso % (Auto) 1.0 (0-2) % Neut # (Auto) 5300 (5345-3163) /uL Lymph # (Auto) 400 L (1381-7121) /uL Harris # (Auto) 800 (0-900) /uL Eos # (Auto) 100 (0-450) /uL Baso # (Auto) 100 (0-100) /uL Sodium 138 (137-145) mmol/L Potassium 3.8 (3.4-5.1) mmol/L Chloride 102 (98-107) mmol/L Carbon Dioxide 29 (22-32) mmol/L BUN 36 H (7-17) mg/dL Creatinine 1.21 H (0.52-1.04) mg/dL Estimated GFR 49 L (>60) mL/min BUN/Creatinine Ratio 29.8 H (6-22) Glucose 146 H (80-110) mg/dL Calcium 10.1 (8.4-10.2) mg/dL Total Bilirubin 1.4 H (0.2-1.3) mg/dL AST 30 (14-36) IU/L ALT 13 (<35) IU/L Alkaline Phosphatase 180 H (38-126) U/L Ammonia 36 H (9-30) umol/L Total Creatine Kinase 36 (30-135) U/L Troponin I 0.017 (0.01-0.034) ng/mL NT-Pro-B Natriuret Pep 444 H (<125) pg/mL Total Protein 8.3 H (6.3-8.2) g/dL Albumin 3.4 L (3.5-5.0) g/dL Globulin 4.9 H (1.7-4.1) g/dL Albumin/Globulin Ratio 0.7 L (1.0-2.8) Lipase 114 (23-300) U/L Imaging Data Chest x-ray: Radiologist's Impression: [address] [address] XRay Report Signed Patient: Marianela Valdez MR#: [id number] : 1955 Acct:[id number] Age/Sex: 68 / F Date of Service: 08/10/23 Loc: ED Accession Number: [id number] Procedure: XR chest 1V Ordering Provider: Emily Sanchez MD PROCEDURE: XR CHEST 1V INDICATIONS: DYSPNEA TECHNIQUE: One view of the chest was acquired. COMPARISON: [facility], CR, XR CHEST 1V, 01/18/2023, 23:02. [facility], CR, XR CHEST 1V, 04/01/2022, 12:02. FINDINGS: Surgical changes and devices: None. Lungs and pleura: Low lung volumes are seen bilaterally with probable bibasilar atelectasis. Small left pleural effusion. Mediastinum: Mediastinal contours appear normal. Heart size is normal. Bones and chest wall: No suspicious bony lesions. Overlying soft tissues appear unremarkable. Left rotator cuff calcific tendinopathy. IMPRESSION: Small left pleural effusion. Low lung volumes bilaterally with bibasilar atelectasis. Approved by: Dillon Dee M.D. on 08/10/2023 at 18:23 CT scan - abdomen/pelvis: Radiologist's Impression: Close Abdomen/Pelvis CT (Signed) Dillon Dee - 08/10/23 Chest X-Ray (Signed) Dillon Dee - 08/10/23 Launch?[place] [address] CT Scan Report Signed Patient: Marianela Valdez MR#: [id number] : 1955 Acct:[id number] Age/Sex: 68 / F Date of Service: 08/10/23 Loc: ED Accession Number: [id number] Procedure: CT abdomen pelvis w con Ordering Provider: Emily Sanchez MD PROCEDURE: CT ABDOMEN PELVIS W CON INDICATIONS: ABD DISTENSION, RUQ PAIN TECHNIQUE: After the administration of intravenous contrast, axial sections acquired from the lung bases to the pubic symphysis. Coronal and sagittal reformats were performed. For radiation dose reduction, the following was used: automated exposure control, adjustment of mA and/or kV according to patient size. COMPARISON: [facility], CT, CT ABDOMEN PELVIS W CON, 02/04/2022, 15:32. FINDINGS: Image quality: Diagnostic. Lower Chest: Trace bilateral pleural effusions with atelectasis of the lung bases. ABDOMEN: Liver: Nodular appearance of the liver. No enhancing mass is seen in the portal venous phase of contrast enhancement. Gallbladder: Large calcified gallstones are seen. No significant gallbladder wall thickening identified. Biliary ducts: No biliary dilation. Pancreas: No ductal dilation. Spleen: Spleen is borderline in size. Adrenal Glands: No adrenal nodules. Kidneys and Ureters: No hydronephrosis. No solid mass. No complex renal cystic lesion which requires follow up. Stomach and Bowel: Normal colonic caliber, without significant wall thickening. Multiple diverticula are seen in the colon without signs of acute diverticulitis. A diverticulum is seen at the 2nd portion of the duodenum without acute inflammatory changes. Peritoneum: Moderate volume of ascites is seen throughout the abdomen and pelvis. No pneumoperitoneum. Ventral Wall: No hernia. Nonspecific subcutaneous edema and skin thickening is seen in the anterior abdominal wall. Subcutaneous calcifications are seen in the flanks bilaterally, possibly related to prior medication injections. Abdominal Nodes: No retroperitoneal or mesenteric adenopathy by size criteria. Vessels: Aorta and inferior vena cava are normal in size. Small paraesophageal varices are present. PELVIS: Pelvic Organs: Unremarkable. Bladder: Unremarkable. Pelvic Nodes: No enlarged lymph nodes. Miscellaneous: No inguinal hernias are seen. Bones: No aggressive osseous abnormality. IMPRESSION: 1. Hepatic cirrhosis. Liver has decreased in size when compared to the prior CT from 02/04/2022. 2. Moderate ascites throughout the abdomen and pelvis, which has increased when compared to the prior CT. 3. Additional signs of portal hypertension including borderline splenomegaly and small paraesophageal varices. 4. Cholelithiasis. 5. Colonic diverticulosis without signs of acute diverticulitis. Approved by: Dillon Dee M.D. on 08/10/2023 at 19:47 ECG Data Attestation: I personally reviewed and interpreted this ECG as follows: Prior ECG tracings: available for review Interpretation: Sinus rhythm, rate of 77 WA 150 QRS 84 QTC 430. Normal sinus rhythm RSR, no acute ST changes appreciated patient has prior from 01/18/2023 which appears similar. MDM Narrative Medical decision making narrative: 68-year-old female with history of AML, subsequent complications from her treatment. Patient's abdomen is quite hard and full. Patient indicates this is kind her normal. She describes pain but is nontender to palpation. She also notes some shortness of breath which is increased from usual. Labs show white count of 6.7 hemoglobin of 11 which is consistent with patient's priors. Platelets are 120 improved from priors with a des of 59 in January of 2022. Patient's electrolytes overall appropriate with a potassium of 3.8 sodium 138, creatinine is 1.21 slightly up from prior at 1.02, she has range in the past. Glucose is 146 bilirubin is 1.4, AST ALT are 30 and 13 with an alk-phos of 180 and a lipase of 114. it has been elevated in the past ammonia is up at 36. Negative troponin. BNP EKG shows sinus rhythm rate of 77 no acute changes from prior in December of 2022. Workup chest x-ray shows small left pleural effusion CT abdomen pelvis shows hepatic cirrhosis, liver decreased in size compared to prior CT from 02/04/2022, moderate ascites increased compared to priors, additional signs of portal hypertension including borderline splenomegaly and small paraesophageal varices, cholelithiasis, colonic diverticulosis but without signs of diverticulitis. Discussed with patient she does have lactulose at home discussed adding this on. She is alert, appropriate does not seem to have significant changes to her mentation. She notes she stopped taking several medications gives her somewhat difficult to swallow including her spironolactone and several other medications. She in it discussed her findings today. Would ask her to restart her spironolactone, she can discuss with her pharmacist if she can cut them up when we discussed possibly crushing them and she finds that she has some issues they sort of gets stuck she does get scoped regular leads for evaluation for esophageal varices and has not been told she had any issues but asked to discuss with her equipment application specialist and they can also order a swallow study. She has been able to drink water here without any issue. Discussed with patient she does have ascites, if it continues to worsen this can sometimes cause shortness of breath she may ultimately need a paracentesis but does not appear to require today. She is distended but not excessively so and notes that her skin is typically very hard and firm anyway secondary to her scleroderma. Patient was nontender on examination so my suspicion for significant gallbladder issues as lower. Her LFTs are fairly baseline for the patient. Discussed return precautions she feels comfortable with this plan she would like to return home at this time. Discharge Plan Departure Patient Disposition: Home Clinical Impression: Pleural effusion, Increased ammonia level, Ascites Activity Restrictions/Additional Instructions: Your imaging does show a small left pleural effusion. It also shows changes consistent with progression of your cirrhosis from your last CT, I would continue to follow regularly with Gastroenterology or Hepatology. I do recommend adding lactulose back to your regimen daily. Your ammonia was slightly elevated today. I also recommend that you restart your other medications back to your regimen including your spironolactone. Take Zofran 1 tablet every 6 hours as needed for nausea. You can take this 20 minutes prior to taking any tramadol for pain. You may take tramadol 1 tablet every 6 hours as needed for pain. This medication can make you sleepy do not drive, perform hazardous activities or make any major decisions while taking it. This medication will make you constipated please take a stool softener once to twice daily until stools are soft and regular. Prescription sent to [facility] in [place]. Please return for fevers, new or worsening chest pain, shortness of breath, lightheadedness or passing out, persistent vomiting, new swelling in her extremities, altered mental status or other new or concerning changes Prescriptions: New ondansetron 4 mg tablet,disintegrating 4 mg PO QID PRN (Reason: nausea and vomiting) Qty: 10 0RF tramadol 50 mg tablet 50 mg PO Q6H PRN (Reason: pain) Qty: 10 0RF No Action rifaximin 550 mg tablet 550 mg PO BID 30 Days Qty: 60 Patient Comments: takes at noon and midnight levothyroxine 50 mcg Tablet 25 mcg PO DAILY Qty: 0 Patient Comments: take at about noon cinacalcet [Sensipar] 30 MG tablet 30 mg PO DAILY Qty: 0 Patient Comments: takes at about midnight aspirin 81 mg tablet,delayed release (DR/EC) 81 mg PO DAILY Patient Comments: takes at about noon metoprolol succinate 25 mg tablet extended release 24 hr 25 mg PO DAILY Patient Comments: take at about noon nitroglycerin 0.4 mg tablet, sublingual 0.4 mg SL PRN PRN (Reason: chest pain) Patient Comments: has never taken Rx Instructions: one tab Q5 minutes, call 911 if pain persists (up to three tablets). Humulin R U-500 (Conc) Kwikpen 500 unit/mL (3 mL) insulin pen 50 unit subcut TID Skyrizi 150 mg/mL pen injector 150 mg SUBCUT Q12W Patient Comments: INJECT 150 MG UNDER THE SKIN ONCE EVERY TWELVE WEEKS (MAINTENANCE DOSE) magnesium oxide 400 mg (241.3 mg magnesium) tablet 400 mg PO DAILY Patient Comments: TAKE ONE TABLET BY MOUTH ONE TIME DAILY alcohol swabs [Alcohol Prep Pads] Pads, Medicated 1 pad topical TID PRN (DME) OneTouch Verio test strips Strip See Rx Instructions .ROUTE .MEDSUPPLY Qty: 10 Patient Comments: USE WHEN NextStep.ioE IS NOT WORKING 4 TIMES A DAY Rx Instructions: As directed BD Sharps Testing Consultant Misc miscellaneous Patient Comments: USE TO DISPOSE OF NEEDLES/SYRINGES triamcinolone acetonide 0.05 % ointment 1 applic topical BID Disabled Parking Permit 1 ea Not Applicable DAILY Qty: 1 0RF desvenlafaxine 100 mg tablet extended release 24 hr 100 mg PO DAILY Patient Comments: takes at about noon Rx Instructions: Take with 50 mg tab for total dose of 150 mg per day desvenlafaxine 50 mg tablet extended release 24 hr 50 mg PO DAILY Rx Instructions: Take with 100 mg tab for total daily dose of 150 mg spironolactone 50 mg tablet 50 mg PO DAILY Patient Comments: Take ONE tablet (50 mg total) by mouth daily, at midnight. atorvastatin 80 mg tablet 80 mg PO DAILY Patient Comments: take at about midnight Humalog KwikPen Insulin 200 unit/mL (3 mL) insulin pen 50 unit SUBCUT DAILY cholecalciferol (vitamin D3) 25 mcg (1,000 unit) tablet 25 mcg PO DAILY Patient Comments: takes at about noon olopatadine 0.1 % drops 1 drp EYE-BOTH BID Patient Comments: Instill 1 drop in the both eyes twice daily (DME) pen needle, diabetic [BD Ultra-Fine Mini Pen Needle] 31 gauge x 3/16 needle See Rx Instructions .ROUTE .MEDSUPPLY Qty: 50 Rx Instructions: As directed (DME) NovoFine Plus 32 gauge x 1/6 needle See Rx Instructions .ROUTE .MEDSUPPLY Qty: 100 Patient Comments: USE UP TO 6 TIMES A DAY TO INJECT INSULIN Rx Instructions: As directed (DME) chavez.stocking,knee,reg,smal Misc See Rx Instructions .Route Qty: 2 2RF Rx Instructions: 15-20mmHg, wear morning until bedtime Referrals: Timur Schwartz MD [Primary Care Provider] - Stand Alone Forms: Patient Portal/API
[2023-08-10 18:30] LABS: Troponin I 0.017 ng/mL (0.01-0.034)
[2023-08-10 20:12] LABS: NT-proBNP (BNP-Adult 18+) 444 pg/mL (<125)
[2023-08-10] MEDS: TRAMADOL 50 MG PREPACK 1 BOTTLE MISC (21:14)
[2023-08-10] MEDS: ONDANSETRON 4 MG ODT PREPACK 1 BOTTLE MISC (21:14)
== END 2023-08-10 21:35 | disposition home or self-care (01) ==
PROVIDERS: Emergency Medicine; Emergency Provider Emergency Medicine; Family Provider Internal Medicine; PCP Internal Medicine
DX: J90 Pleural effusion, not elsewhere classified (principal); R18.8 Other ascites; R79.89 Other specified abnormal findings of blood chemistry; R07.9 Chest pain, unspecified; R06.02 Shortness of breath
CPT/HCPCS: 36415; 71045; 74177; 80053; 82140; 82550; 83690; 83880; 84484; 85025; 93005; 93010; 99283; 99284; Q9967

== ENCOUNTER 2023-08-15 21:54 | Emergency (ER) | payer MEDICARE, MEDICAID, SELFPAY ==
[2023-01-21 15:46] VITALS: BMI 24.4
[2023-08-15] VITALS (7 sets, daily range): BP systolic 132–146; BP diastolic 65–72; PULSE 87–90; RESP 18; TEMP 36.8; O2SAT 96–99; BMI 21.9
--- NOTE | 2023-08-15 22:04 | ED_ITS ---
HPI - Abdominal Pain General Chief Complaint: Chest Pain Stated Complaint: abd pain, chest burning Time Seen by Provider: 08/15/23 21:59 History of Present Illness HPI narrative: 68-year-old female with history of AML (remote, in remission), chronic kidney disease, coronary artery disease, restrictive lung disease, scleroderma, cirrhosis with ascites, diabetes presents by EMS from home for abdominal pain that radiates upward into her chest. Patient is seen here 5 days prior for same, she was diagnosed with slight advancement in her ascites and told to start taking her spironolactone and lactulose again. Patient states that she does not feel improved and now has chest pain. She verbalizes frustration that she is having difficulty coordinating her doctor's appointments and frustrated with how long everything is taking. She states she came here today to find answers and feel better. Related Data Home Medications Medication Instructions Recorded Confirmed levothyroxine 50 mcg tablet 25 mcg PO DAILY ##0 07/17/11 06/27/23 cinacalcet 30 mg tablet (Sensipar) 30 mg PO DAILY ##0 12/16/16 06/27/23 rifaximin 550 mg tablet 550 mg PO BID 30 days #60 tabs 06/25/18 06/27/23 aspirin 81 mg tablet,delayed 81 mg PO DAILY 08/12/19 06/27/23 release metoprolol succinate 25 mg 25 mg PO DAILY 08/12/19 06/27/23 tablet,extended release 24 hr nitroglycerin 0.4 mg sublingual 0.4 mg sublingual PRN PRN chest 08/12/19 06/27/23 tablet pain insulin regular hum U-500 conc 500 50 unit SUBCUT TID 01/20/20 06/27/23 unit/mL(3 mL) subcut pen (Humulin R U-500 (Conc) Insulin Kwikpen) atorvastatin 80 mg tablet 80 mg PO DAILY 11/06/21 06/27/23 cholecalciferol (vitamin D3) 25 25 mcg PO DAILY 11/06/21 06/27/23 mcg (1,000 unit) tablet insulin lispro 200 unit/mL (3 mL) 50 unit SUBCUT DAILY 11/06/21 06/27/23 subcutaneous pen (Humalog KwikPen U-200 Insulin) olopatadine 0.1 % eye drops 1 drp EYE-BOTH BID 11/06/21 06/27/23 pen needle, diabetic 31 gauge x #50 ea 02/15/22 06/27/23 3/16 (BD Ultra-Fine Mini Pen Needle) pen needle, diabetic 32 gauge x #100 ea 02/15/22 06/27/23 1/6 (NovoFine Plus) alcohol swabs (Alcohol Prep Pads) 1 pad topical TID PRN 12/21/22 06/27/23 blood sugar diagnostic (OneTouch #10 ea 12/21/22 06/27/23 Verio test strips) empty container (BD Sharps ea miscellaneous 12/21/22 06/27/23 Sap Grc Security) magnesium oxide 400 mg (241.3 mg 400 mg PO DAILY 12/21/22 06/27/23 magnesium) tablet risankizumab-rzaa 150 mg/mL 150 mg SUBCUT Q12W 12/21/22 06/27/23 subcutaneous pen injector (Micheal) triamcinolone acetonide 0.05 % 1 applic topical BID 12/21/22 06/27/23 topical ointment desvenlafaxine 100 mg 100 mg PO DAILY 06/27/23 06/27/23 tablet,extended release 24 hr desvenlafaxine 50 mg 50 mg PO DAILY 06/27/23 06/27/23 tablet,extended release 24 hr Previous Rx's Medication Instructions Recorded Disabled Parking Permit 1 ea Not Applicable DAILY #1 ea 12/21/22 chavez.stocking,knee,reg,smal #2 ea 01/24/23 ondansetron 4 mg disintegrating 4 mg PO QID PRN nausea and 08/10/23 tablet vomiting #10 tabs tramadol 50 mg tablet 50 mg PO Q6H PRN pain #10 tabs 08/10/23 spironolactone 50 mg tablet 50 mg PO DAILY #90 tabs 08/14/23 Allergies Allergy/AdvReac Type Severity Reaction Status Date / Time hydrocodone Allergy ITCHING Verified 06/27/23 16:12 oxycodone Allergy ITCHING Verified 06/27/23 16:12 propofol AdvReac Unknown Verified 06/27/23 16:12 morphine AdvReac Vomiting Verified 06/27/23 16:12 Pall Blood Filter Allergy Severe Anaphylaxis Uncoded 06/27/23 16:12 Review of Systems Review of Systems Narrative: Negative except as noted above Patient History Medical History Venous (peripheral) insufficiency Carotid stenosis Concussion Decubitus ulcer of coccyx Gallstone pancreatitis Generalized anxiety disorder Chronic kidney disease, stage 3a Hyperparathyroidism, secondary renal Acquired hypothyroidism Mixed hyperlipidemia Coronary artery disease 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 Thrombocytopenia Restrictive lung disease Scleroderma History of ST elevation myocardial infarction (STEMI) History of upper gastrointestinal bleeding AML (acute myeloid leukemia) in remission Hepatic encephalopathy Psoriasis Cirrhosis Depression Generalized anxiety disorder Obsessive compulsive disorder Surgical History History of coronary artery stent placement History of colonoscopy History of bone marrow transplant Family History Father Heart disease S/P CABG x 4 Hypertension Mother Gallstones Brother No significant medical problems Sister Diabetes mellitus Social History marital status: unknown household members: none Smoking Status: Never smoker alcohol intake: former substance use type: does not use Smoking Status: Never smoker alcohol intake frequency: 0-2 drinks per day Substance Use Type: does not use Exam Initial Vital Signs Initial Vital Signs: Vital Signs Pulse Oximetry 96 08/15/23 21:56 Const: Awake, alert, no acute distress, frail, appears chronically unwell Cardiac: regular rate, regular rhythm RESP: unlabored, clear bilaterally, no wheezing GI: Atraumatic, soft, mild distention, nontender MSK: Atraumatic, full range of motion, pulses equal Skin: Warm, Dry, intact, no rashes Neuro: AO x3, CN II-XII grossly intact, moves all extremities Psych: affect normal, mood normal, not suicidal, not homicidal Course Orders Ordered: Discontinued Medications Al Hydrox/Mg Hydrox/Simethicone (Mag Hydrox/Alum/Simeth 30 Ml Udc) 30 ml PO NOW ONE Stop: 08/15/23 23:03 Last Admin: 08/15/23 23:11 Dose: 30 ml Documented By: MAXX Lidocaine HCl (Lidocaine Viscous 2% 15 Ml Solution) 15 ml PO NOW ONE Stop: 08/15/23 23:03 Last Admin: 08/15/23 23:11 Dose: 15 ml Documented By: DKB Vital Signs Vital signs: Vital Signs - 8 hr 08/15/23 21:56 08/15/23 21:57 08/15/23 21:57 Temperature Pulse Rate 90 Respiratory Rate Blood Pressure 141/68 H Pulse Oximetry 96 98 Oxygen Delivery Method 08/15/23 22:00 08/15/23 22:00 08/15/23 22:05 Temperature 98.2 F Pulse Rate 88 90 Respiratory Rate 18 Blood Pressure 138/65 141/68 H Pulse Oximetry 97 99 Oxygen Delivery Method Room Air 08/15/23 22:30 08/15/23 22:30 08/15/23 23:00 Temperature Pulse Rate 87 Respiratory Rate 18 Blood Pressure 146/72 H 132/71 Pulse Oximetry 98 Oxygen Delivery Method 08/15/23 23:00 08/15/23 23:30 08/15/23 23:30 Temperature Pulse Rate 89 87 Respiratory Rate Blood Pressure 133/68 Pulse Oximetry 97 98 Oxygen Delivery Method 08/16/23 00:00 08/16/23 00:00 Temperature Pulse Rate 88 Respiratory Rate 18 Blood Pressure 142/69 H Pulse Oximetry 97 Oxygen Delivery Method MDM - Abdominal Pain Differential Diagnosis Differential diagnosis: Likely abdominal pain, diverticulitis and pancreatitis Lab Data 08/15/23 22:00 08/15/23 22:00 Labs: Lab Results 08/15/23 08/16/23 Range/Units 22:00 00:04 WBC 7.2 (4.5-11.0) X10^3/uL RBC 4.46 (4.0-5.2) X10^6/uL Hgb 11.6 L (12.0-16.0) g/dL Hct 36.1 (36-46) % MCV 81.0 (80-100) fL MCH 26.1 (26-34) PG MCHC 32.2 (30-36) % RDW 18.8 H (11.6-14.8) % Plt Count 127 L (150-400) X10^3/uL Neut % (Auto) 77.4 H (50-75) % Lymph % (Auto) 6.8 L (25-40) % [place] % (Auto) 12.6 (3-14) % Eos % (Auto) 2.2 (2-4) % Baso % (Auto) 1.0 (0-2) % Neut # (Auto) 5600 (7965-8701) /uL Lymph # (Auto) 500 L (0705-2591) /uL [place] # (Auto) 900 (0-900) /uL Eos # (Auto) 200 (0-450) /uL Baso # (Auto) 100 (0-100) /uL PT 13.3 H (9.4-12.5) SECONDS INR 1.2 (0.9-1.3) Sodium 139 (137-145) mmol/L Potassium 4.3 (3.4-5.1) mmol/L Chloride 102 (98-107) mmol/L Carbon Dioxide 30 (22-32) mmol/L BUN 34 H (7-17) mg/dL Creatinine 0.95 (0.52-1.04) mg/dL Estimated GFR > 60 (>60) mL/min BUN/Creatinine Ratio 35.8 H (6-22) Glucose 138 H (80-110) mg/dL Calcium 10.1 (8.4-10.2) mg/dL Total Bilirubin 1.4 H (0.2-1.3) mg/dL AST 29 (14-36) IU/L ALT 13 (<35) IU/L Alkaline Phosphatase 186 H (38-126) U/L Total Creatine Kinase 28 L (30-135) U/L Troponin I 0.013 < 0.012 (0.01-0.034) ng/mL Total Protein 8.8 H (6.3-8.2) g/dL Albumin 3.5 (3.5-5.0) g/dL Globulin 5.3 H (1.7-4.1) g/dL Albumin/Globulin Ratio 0.7 L (1.0-2.8) ECG Data Interpretation: Normal sinus rhythm, no ST T wave changes, no STEMI MDM Narrative Medical decision making narrative: Patient presenting for repeat evaluation, states she has not feeling better after being seen several days ago. Also reporting frustration that her medical conditions are difficult to manage and taking a long time via her primary care doctor's office. Abdomen is soft, she does have [id number]-[id number] distention but patient has known ascites. EKG sinus rhythm without ischemic findings. Troponins negative x2. Chest x-ray shows small left pleural effusion. Labs otherwise unchanged from prior. Patient counseled on lab and imaging findings. I do not know the cause of her chest pain, she will need to continue to follow up with her specialists for her symptoms. I recommended continuing lactulose, spironolactone, other chronic medications. No new medications or adjustments today. Discharge Plan Departure Patient Disposition: Home Clinical Impression: Chest pain, Cirrhosis of liver with ascites Instructions: DI for Cirrhosis, DI for Chest Pain Activity Restrictions/Additional Instructions: Your EKG and heart enzymes were normal today. Continue all of your medications such as spironolactone at home. Follow up with your primary care physician. Prescriptions: No Action rifaximin 550 mg tablet 550 mg PO BID 30 Days Qty: 60 Patient Comments: takes at noon and midnight levothyroxine 50 mcg Tablet 25 mcg PO DAILY Qty: 0 Patient Comments: take at about noon cinacalcet [Sensipar] 30 MG tablet 30 mg PO DAILY Qty: 0 Patient Comments: takes at about midnight aspirin 81 mg tablet,delayed release (DR/EC) 81 mg PO DAILY Patient Comments: takes at about noon metoprolol succinate 25 mg tablet extended release 24 hr 25 mg PO DAILY Patient Comments: take at about noon nitroglycerin 0.4 mg tablet, sublingual 0.4 mg SL PRN PRN (Reason: chest pain) Patient Comments: has never taken Rx Instructions: one tab Q5 minutes, call 911 if pain persists (up to three tablets). Humulin R U-500 (Conc) Kwikpen 500 unit/mL (3 mL) insulin pen 50 unit subcut TID spironolactone 50 mg tablet 50 mg PO DAILY Qty: 90 3RF Skyrizi 150 mg/mL pen injector 150 mg SUBCUT Q12W Patient Comments: INJECT 150 MG UNDER THE SKIN ONCE EVERY TWELVE WEEKS (MAINTENANCE DOSE) magnesium oxide 400 mg (241.3 mg magnesium) tablet 400 mg PO DAILY Patient Comments: TAKE ONE TABLET BY MOUTH ONE TIME DAILY alcohol swabs [Alcohol Prep Pads] Pads, Medicated 1 pad topical TID PRN (DME) OneTouch Verio test strips Strip See Rx Instructions .ROUTE .MEDSUPPLY Qty: 10 Patient Comments: USE WHEN FREESTYLE ALFREDO IS NOT WORKING 4 TIMES A DAY Rx Instructions: As directed BD Sharps Sap [employer] Security Misc miscellaneous Patient Comments: USE TO DISPOSE OF NEEDLES/SYRINGES triamcinolone acetonide 0.05 % ointment 1 applic topical BID Disabled Parking Permit 1 ea Not Applicable DAILY Qty: 1 0RF desvenlafaxine 100 mg tablet extended release 24 hr 100 mg PO DAILY Patient Comments: takes at about noon Rx Instructions: Take with 50 mg tab for total dose of 150 mg per day desvenlafaxine 50 mg tablet extended release 24 hr 50 mg PO DAILY Rx Instructions: Take with 100 mg tab for total daily dose of 150 mg atorvastatin 80 mg tablet 80 mg PO DAILY Patient Comments: take at about midnight Humalog KwikPen Insulin 200 unit/mL (3 mL) insulin pen 50 unit SUBCUT DAILY cholecalciferol (vitamin D3) 25 mcg (1,000 unit) tablet 25 mcg PO DAILY Patient Comments: takes at about noon olopatadine 0.1 % drops 1 drp EYE-BOTH BID Patient Comments: Instill 1 drop in the both eyes twice daily (DME) pen needle, diabetic [BD Ultra-Fine Mini Pen Needle] 31 gauge x 3/16 needle See Rx Instructions .ROUTE .MEDSUPPLY Qty: 50 Rx Instructions: As directed (DME) NovoFine Plus 32 gauge x 1/6 needle See Rx Instructions .ROUTE .MEDSUPPLY Qty: 100 Patient Comments: USE UP TO 6 TIMES A DAY TO INJECT INSULIN Rx Instructions: As directed (DME) chavez.stocking,knee,reg,smal Misc See Rx Instructions .Route Qty: 2 2RF Rx Instructions: 15-20mmHg, wear morning until bedtime ondansetron 4 mg tablet,disintegrating 4 mg PO QID PRN (Reason: nausea and vomiting) Qty: 10 0RF tramadol 50 mg tablet 50 mg PO Q6H PRN (Reason: pain) Qty: 10 0RF Referrals: Timur Schwartz MD [Primary Care Provider] - Stand Alone Forms: Patient Portal/API
--- NOTE | 2023-08-15 22:06 | DI.RAD.S_ITS ---
PROCEDURE: XR CHEST 1V INDICATIONS: CHEST PAIN/BURNING TECHNIQUE: One view of the chest was acquired. COMPARISON: [facility], CT, CT ABDOMEN PELVIS W CON, 08/10/2023, 18:38. [facility], CR, XR CHEST 1V, 08/10/2023, 17:36. FINDINGS: Surgical changes and devices: None. Lungs and pleura: Right hemidiaphragm elevation. Small left pleural effusion. Left basilar atelectasis. No pneumothorax. Mediastinum: Mediastinal contours appear normal. Heart size is normal. Bones and chest wall: No suspicious bony lesions. Overlying soft tissues appear unremarkable. IMPRESSION: 1. Small left pleural effusion with left basilar atelectasis. Dictated by: Gloria Chandler M.D. on 08/15/2023 at 22:29 Approved by: Gloria Chandler M.D. on 08/15/2023 at 22:30
[2023-08-15 22:14] LABS: Add Manual Diff / Slide Review NO; Basophils Absolute Auto 100 /uL (0-100); Eosinophils Absolute Auto 200 /uL (0-450); Eosinophils Percent Auto 2.2 % (2-4); Hematocrit 36.1 % (36-46); Hemoglobin 11.6 g/dL (12.0-16.0); Lymphocytes Absolute Auto 500 /uL (1100-4500); Lymphocytes Percent Auto 6.8 % (25-40); Mean Corpuscular HGB Conc 32.2 % (30-36); Mean Corpuscular Hemoglobin 26.1 PG (26-34); Monocytes Absolute Auto 900 /uL (0-900); Monocytes Percent Auto 12.6 % (3-14); Neutrophils Absolute Auto 5600 /uL (1500-7000); Neutrophils Percent Auto 77.4 % (50-75); Platelet Count 127 X10^3/uL (150-400); Red Blood Cell Count 4.46 X10^6/uL (4.0-5.2); Red Cell Distribution Width 18.8 % (11.6-14.8); White Blood Cell Count 7.2 X10^3/uL (4.5-11.0)
[2023-08-15 22:18] LABS: INR 1.2 (0.9-1.3); Prothrombin Time 13.3 SECONDS (9.4-12.5)
[2023-08-15 22:24] LABS: Alanine Aminotransferase 13 IU/L (<35); Albumin 3.5 g/dL (3.5-5.0); Albumin Globulin Ratio 0.7 (1.0-2.8); Alkaline Phosphatase 186 U/L (38-126); Aspartate Aminotransferase 29 IU/L (14-36); BUN Creatinine Ratio 35.8 (6-22); Bilirubin Total 1.4 mg/dL (0.2-1.3); Blood Urea Nitrogen 34 mg/dL (7-17); Calcium 10.1 mg/dL (8.4-10.2); Carbon Dioxide 30 mmol/L (22-32); Chloride 102 mmol/L (98-107); Creatine Kinase 28 U/L (30-135); Estimated Glomerular Filt Rate > 60 mL/min (>60); Globulin 5.3 g/dL (1.7-4.1); Glucose 138 mg/dL (80-110); HEMOLYSIS < 15 (0-50); Potassium 4.3 mmol/L (3.4-5.1); Sodium 139 mmol/L (137-145); Total Protein 8.8 g/dL (6.3-8.2)
[2023-08-15 22:35] LABS: Troponin I 0.013 ng/mL (0.01-0.034)
[2023-08-15] MEDS: LIDOCAINE VISCOUS 2% 15 ML SOLUTION PO (23:11)
[2023-08-15] MEDS: MAG HYDROX/ALUM/SIMETH 30 ML UDC PO (23:11)
[2023-08-16] VITALS: BP 142/69; PULSE 88; RESP 18; O2SAT 97
[2023-08-16 00:30] VITALS: BP 151/74; PULSE 85; RESP 18; O2SAT 97
[2023-08-16 00:40] LABS: Troponin I < 0.012 ng/mL (0.01-0.034)
[2023-08-16 00:59] VITALS: PULSE 85; O2SAT 98
[2023-08-16 01:00] VITALS: BP 139/75; RESP 18
== END 2023-08-16 01:20 | disposition home or self-care (01) ==
PROVIDERS: Emergency Provider Emergency Medicine; Family Provider Internal Medicine; PCP Internal Medicine
DX: R07.9 Chest pain, unspecified (principal); K74.60 Unspecified cirrhosis of liver; R18.8 Other ascites
CPT/HCPCS: 71045; 80053; 82550; 84484; 85025; 85610; 93005; 99283; 99284

== ENCOUNTER 2023-09-20 09:34 | Emergency (ER) | payer MEDICARE, MEDICAID, SELFPAY ==
[2023-09-19 15:06] VITALS: BMI 24.4
[2023-09-20] VITALS (10 sets, daily range): BP systolic 118–147; BP diastolic 58–69; PULSE 76–82; RESP 17; TEMP 36.6; O2SAT 98–99; BMI 22.1
--- NOTE | 2023-09-20 10:07 | ED_ITS ---
HPI - General Adult General Chief complaint: Abdominal Pain Stated complaint: needs fluid removed from stomach Time Seen by Provider: 09/20/23 10:04 Source: patient Mode of arrival: Wheelchair History of Present Illness HPI narrative: 68-year-old female with history of AML, CKD, GVHD, esophageal varices, encephalopathy, depression, OCD, thrombocytopenia, scleroderma, cirrhosis, on spironolactone, rifaximin presents with abdominal distension. History clarified from triage notes. She has history of recent paracntesis but has rapidly accumulating abdominal ascites. prison sent her in for evaluation. Brother is reportedly POA. She has some shortness of breath in setting of difficulty breathing against abdomen. No F/C, chest or abdominal or back or flank pain. No trauma. No urinary symptoms. Related Data Home Medications Medication Instructions Recorded Confirmed levothyroxine 50 mcg tablet 25 mcg PO DAILY ##0 07/17/11 06/27/23 cinacalcet 30 mg tablet (Sensipar) 30 mg PO DAILY ##0 12/16/16 06/27/23 rifaximin 550 mg tablet 550 mg PO BID 30 days #60 tabs 06/25/18 06/27/23 aspirin 81 mg tablet,delayed 81 mg PO DAILY 08/12/19 06/27/23 release metoprolol succinate 25 mg 25 mg PO DAILY 08/12/19 06/27/23 tablet,extended release 24 hr nitroglycerin 0.4 mg sublingual 0.4 mg sublingual PRN PRN chest 08/12/19 06/27/23 tablet pain insulin regular hum U-500 conc 500 50 unit SUBCUT TID 01/20/20 06/27/23 unit/mL(3 mL) subcut pen (Humulin R U-500 (Conc) Insulin Kwikpen) atorvastatin 80 mg tablet 80 mg PO DAILY 11/06/21 06/27/23 cholecalciferol (vitamin D3) 25 25 mcg PO DAILY 11/06/21 06/27/23 mcg (1,000 unit) tablet insulin lispro 200 unit/mL (3 mL) 50 unit SUBCUT DAILY 11/06/21 06/27/23 subcutaneous pen (Humalog KwikPen U-200 Insulin) olopatadine 0.1 % eye drops 1 drp EYE-BOTH BID 11/06/21 06/27/23 pen needle, diabetic 31 gauge x #50 ea 02/15/22 06/27/23 3/16 (BD Ultra-Fine Mini Pen Needle) pen needle, diabetic 32 gauge x #100 ea 02/15/22 06/27/23 1/ (NovoFine Plus) alcohol swabs (Alcohol Prep Pads) 1 pad topical TID PRN 12/21/22 06/27/23 blood sugar diagnostic (OneTouch #10 ea 12/21/22 06/27/23 Verio test strips) empty container (BD Sharps ea miscellaneous 12/21/22 06/27/23 Animal Husbandry Teacher) magnesium oxide 400 mg (241.3 mg 400 mg PO DAILY 12/21/22 06/27/23 magnesium) tablet risankizumab-rzaa 150 mg/mL 150 mg SUBCUT Q12W 12/21/22 06/27/23 subcutaneous pen injector (Micheal) triamcinolone acetonide 0.05 % 1 applic topical BID 12/21/22 06/27/23 topical ointment desvenlafaxine 100 mg 100 mg PO DAILY 06/27/23 06/27/23 tablet,extended release 24 hr desvenlafaxine 50 mg 50 mg PO DAILY 06/27/23 06/27/23 tablet,extended release 24 hr Previous Rx's Medication Instructions Recorded Disabled Parking Permit 1 ea Not Applicable DAILY #1 ea 12/21/22 chavez.stocking,knee,reg,smal #2 ea 01/24/23 ondansetron 4 mg disintegrating 4 mg PO QID PRN nausea and 08/10/23 tablet vomiting #10 tabs tramadol 50 mg tablet 50 mg PO Q6H PRN pain #10 tabs 08/10/23 spironolactone 50 mg tablet 50 mg PO DAILY #90 tabs 08/14/23 Allergies Allergy/AdvReac Type Severity Reaction Status Date / Time hydrocodone Allergy ITCHING Verified 09/20/23 09:44 oxycodone Allergy ITCHING Verified 09/20/23 09:44 propofol AdvReac Unknown Verified 09/20/23 09:44 morphine AdvReac Vomiting Verified 09/20/23 09:44 Pall Blood Filter Allergy Severe Anaphylaxis Uncoded 06/27/23 16:12 Review of Systems Review of Systems Narrative: Constitutional: no fever, no chills Eyes: no visual disturbance, no discharge Ears, Nose, Mouth, Throat: no rhinorrhea, no sore throat Cardiovascular: no chest pain, no palpitations Respiratory: no cough, +shortness of breath Gastrointestinal: no abdominal pain, no vomiting, no diarrhea Genitourinary: no dysuria, no hematuria Musculoskeletal: no back pain, no neck stiffness Skin: no rash, no wound Neurological: no focal weakness, no focal numbness Patient History Medical History Venous (peripheral) insufficiency Carotid stenosis Concussion Decubitus ulcer of coccyx Gallstone pancreatitis Generalized anxiety disorder Chronic kidney disease, stage 3a Hyperparathyroidism, secondary renal Acquired hypothyroidism Mixed hyperlipidemia Coronary artery disease 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 Thrombocytopenia Restrictive lung disease Scleroderma History of ST elevation myocardial infarction (STEMI) History of upper gastrointestinal bleeding AML (acute myeloid leukemia) in remission Hepatic encephalopathy Psoriasis Cirrhosis Depression Generalized anxiety disorder Obsessive compulsive disorder Surgical History History of coronary artery stent placement History of colonoscopy History of bone marrow transplant Family History Father Heart disease S/P CABG x 4 Hypertension Mother Gallstones Brother No significant medical problems Sister Diabetes mellitus Social History marital status: unknown household members: none Smoking Status: Never smoker alcohol intake: former substance use type: does not use Smoking Status: Never smoker alcohol intake frequency: holidays/special occasions only Substance Use Type: does not use Exam Narrative Exam Narrative: Const: no acute distress, non toxic appearing; calm, conversant, pleasant, mildly confused at baseline Eyes: PERRLA, EOMI ENT: mucous membranes moist Neck: supple, non-tender Resp: no respiratory distress, clear to auscultation bilaterally Card: regular rate and rhythm, no murmurs Abd: distended though non tender diffusely, no rigidity or rebound or guarding Back: no T or L spine tenderness, no CVA tenderness bilaterally Extrem: no deformities, no swelling bilateral lower extremities, no asterixis Neuro: ANOx3/4, director of acquisitions grossly intact, grossly intact sensation and strength all extremities Skin: no rash, warm and dry POCUS by myself shows ascites but there is NOT enough to safely perform paracentesis Initial Vital Signs Initial Vital Signs: Vital Signs Temperature 97.8 F 09/20/23 09:36 Pulse Rate 78 09/20/23 09:36 Respiratory Rate 17 09/20/23 09:36 Blood Pressure 147/64 H 09/20/23 09:36 Pulse Oximetry 98 09/20/23 09:36 Oxygen Delivery Method Room Air 09/20/23 09:36 Course Course Course Narrative: This patient presents with gradually reaccumulating abdominal ascites, likely driving her symptoms, though I have considered a broad differential including but not limited to viral syndrome, pneumonia, symptomatic anemia, volume overload/CHF, COPD, pneumothorax, UTI among others. Immediately after my assessment, I spoke with Carolynn on phone, and then patient's brother Ed, who was reportedly power of criminal attorney. I confirm no other new concerns, that they are trying to arrange hospice for patient, and that they are comfortable with my workup and plan today. Ed understands patient is not safe to receive paracentesis, but that regardless of findings today, she will need close outpatient follow up for reassessment of this, as she is likely to continue accumulating. I am obtaining labs, urinalysis, viral swab, chest x-ray and will closely reassess. Workup shows reassuring CBC, no leukocytosis, with anemia slightly worsened from prior though in similar range, with chronic appearing thrombocytopenia. INR within normal limits. CMP with borderline hyponatremia, probable MELISA that could be prerenal, hyperglycemia with sodium correcting in this setting, chronically elevated alk phos, no AST or ALT or bilirubin elevation, lipase within normal limits. COVID returned positive, likely contributing to symptoms. CXR radiology read below, which I agree with on my review: FINDINGS: Surgical changes and devices: None. Lungs and pleura: Low lung volumes. No dense consolidation or pleural effusion. Mediastinum: Unremarkable cardiomediastinal contours. Normal heart size. Bones and chest wall: Degenerative changes. IMPRESSION: Low lung volumes on single view radiograph, limiting evaluation. No acute abnormality. Dictated by: Gerald Pereira M.D. on 09/20/2023 at 12:17 Patient stable here, appearing comfortable. COVID is most likely driving her symptoms. I do agree she will ultimately need paracentesis, but she is not safe for this currently, which I communicated to her family. In this setting, I have written discharge instructions with updates regarding workup today and importance of close follow-up and return precautions. Repeat exam and vital signs reassuring. Questions answered. Plan reviewed. Patient discharged in stable condition. Orders Ordered: ED Orders 09/20/23 13:09 Urinalysis and Microscopic Stat Vital Signs Vital signs: Vital Signs - 8 hr 09/20/23 12:30 09/20/23 12:30 09/20/23 12:46 Pulse Rate 78 82 Blood Pressure 124/58 L Pulse Oximetry 99 98 09/20/23 12:46 Pulse Rate Blood Pressure 138/64 Pulse Oximetry Medical Decision Making Lab Data 09/20/23 10:03 09/20/23 10:03 Labs: Lab Results 09/20/23 09/20/23 09/20/23 Range/Units 10:03 11:16 13:09 WBC 7.2 (4.5-11.0) X10^3/uL RBC 4.03 (4.0-5.2) X10^6/uL Hgb 10.3 L (12.0-16.0) g/dL Hct 33.0 L (36-46) % MCV 81.8 (80-100) fL MCH 25.4 L (26-34) PG MCHC 31.1 (30-36) % RDW 20.0 H (11.6-14.8) % Plt Count 82 L (150-400) X10^3/uL Neut % (Auto) 83.9 H (50-75) % Lymph % (Auto) 5.5 L (25-40) % [place] % (Auto) 9.2 (3-14) % Eos % (Auto) 0.8 L (2-4) % Baso % (Auto) 0.6 (0-2) % Neut # (Auto) 6100 (8884-5714) /uL Lymph # (Auto) 400 L (5301-3883) /uL [place] # (Auto) 700 (0-900) /uL Eos # (Auto) 100 (0-450) /uL Baso # (Auto) 0 (0-100) /uL PT 13.0 H (9.4-12.5) SECONDS INR 1.1 (0.9-1.3) Sodium 136 L (137-145) mmol/L Potassium 4.7 (3.4-5.1) mmol/L Chloride 105 (98-107) mmol/L Carbon Dioxide 28 (22-32) mmol/L BUN 47 H (7-17) mg/dL Creatinine 1.25 H (0.52-1.04) mg/dL Estimated GFR 47 L (>60) mL/min BUN/Creatinine Ratio 37.6 H (6-22) Glucose 297 H (80-110) mg/dL Calcium 9.6 (8.4-10.2) mg/dL Total Bilirubin 1.0 (0.2-1.3) mg/dL AST 34 (14-36) IU/L ALT 19 (<35) IU/L Alkaline Phosphatase 223 H (38-126) U/L Total Protein 7.8 (6.3-8.2) g/dL Albumin 3.1 L (3.5-5.0) g/dL Globulin 4.7 H (1.7-4.1) g/dL Albumin/Globulin Ratio 0.7 L (1.0-2.8) Lipase 194 (23-300) U/L Urine Color Yellow Urine Appearance Clear Urine pH 5.5 (4.5-8.0) Ur Specific [place] 1.020 (1.000-1.035) Urine Protein Negative (Negative) Urine Glucose (UA) 2+ H (Negative) g/dL Urine Ketones Negative (NEGATIVE) Urine Occult Blood Negative (Negative) Urine Nitrate Negative (Negative) Urine Bilirubin Negative (NEGATIVE) Urine Urobilinogen 0.2 (0.2) E.U./dL Ur Leukocyte Esterase Negative (NEGATIVE) Urine RBC None seen (0-5/HPF) Urine WBC 0-1/hpf (0-5/HPF) Ur Squamous Epith Cells 0-1 /hpf (0-5/HPF) Urine Bacteria Moderate (10-30) H (None) Hyaline Casts 1-5/lpf (None) Ur Culture Indicated? Cult not indicated Vol Urine Centrifuged 10ml (spun) SARS-CoV-2 (PCR) Positive H (Negative) Influenza A (RT-PCR) Flu a negative (NEGATIVE) Influenza B (RT-PCR) Flu b negative (NEGATIVE) RSV (PCR) Negative (Negative) Discharge Plan Departure Patient Disposition: Home Clinical Impression: Ascites, COVID Activity Restrictions/Additional Instructions: It was a pleasure taking care of you today. It is important to fully read and understand the below. Please ask us if you have any questions. I agree that ultimately, a paracentesis will help your symptoms. However, it is not safe to do the paracentsis currently. While there is fluid in your abdomen, there is not enough currently to safely do the paracentesis. In addition, you have COVID, which could be contributing. Please see your primary doctor within 3 days to be reassessed and ensure you are improving. Ideally, you should schedule regular assessments for paracentesis that are not through the ER. We are happy to help, but this is not the ideal setting to get this procedure done on a regular basis. PLEASE REPEAT YOUR LABS WITH YOUR PRIMARY DOCTOR. You currently may have a mild kidney injury. Repeat your CBC and chemistry. No tests or assessments are perfect, and your condition could change control analyst time. If your symptoms change or worsen, it is very important you immediately seek medical care. If you have any new or worsening pain, lightheadedness or passing out, bleeding, shortness of breath, fever, vomiting, confusion, numbness, weakness, or anything else that concerns you, please immediately seek medical care. If you have been prescribed any medications: please read the drug package inserts on how to properly use the medication and any potential side effects. If you had labs (blood tests) or imaging (CT scan or x-rays) done during your visit: please follow up on the results of these with your primary care doctor, as discussed. In addition, please know the results we received today may be preliminary. Our usual practice is to follow up on tests within a few days of a patient's discharge from the Emergency Department and notify you of any changes. These may lead to changes to your treatment plan. However, the best way to obtain and interpret these test results is through your Primary Care Provider. If you need to update your contact information, please stop by the assignment desk editor and alert the Registration personnel before you leave the Emergency Department. Thank you for the opportunity to participate in your healthcare. We are always here and happy to see you in the future. Prescriptions: No Action rifaximin 550 mg tablet 550 mg PO BID 30 Days Qty: 60 Patient Comments: takes at noon and midnight levothyroxine 50 mcg Tablet 25 mcg PO DAILY Qty: 0 Patient Comments: take at about noon cinacalcet [Sensipar] 30 MG tablet 30 mg PO DAILY Qty: 0 Patient Comments: takes at about midnight aspirin 81 mg tablet,delayed release (DR/EC) 81 mg PO DAILY Patient Comments: takes at about noon metoprolol succinate 25 mg tablet extended release 24 hr 25 mg PO DAILY Patient Comments: take at about noon nitroglycerin 0.4 mg tablet, sublingual 0.4 mg SL PRN PRN (Reason: chest pain) Patient Comments: has never taken Rx Instructions: one tab Q5 minutes, call 911 if pain persists (up to three tablets). Humulin R U-500 (Conc) Kwikpen 500 unit/mL (3 mL) insulin pen 50 unit subcut TID spironolactone 50 mg tablet 50 mg PO DAILY Qty: 90 3RF Skyrizi 150 mg/mL pen injector 150 mg SUBCUT Q12W Patient Comments: INJECT 150 MG UNDER THE SKIN ONCE EVERY TWELVE WEEKS (MAINTENANCE DOSE) magnesium oxide 400 mg (241.3 mg magnesium) tablet 400 mg PO DAILY Patient Comments: TAKE ONE TABLET BY MOUTH ONE TIME DAILY alcohol swabs [Alcohol Prep Pads] Pads, Medicated 1 pad topical TID PRN (DME) OneTouch Verio test strips Strip See Rx Instructions .ROUTE .MEDSUPPLY Qty: 10 Patient Comments: USE WHEN LatamLeap IS NOT WORKING 4 TIMES A DAY Rx Instructions: As directed BD Sharps Animal Husbandry Teacher Misc miscellaneous Patient Comments: USE TO DISPOSE OF NEEDLES/SYRINGES triamcinolone acetonide 0.05 % ointment 1 applic topical BID Disabled Parking Permit 1 ea Not Applicable DAILY Qty: 1 0RF desvenlafaxine 100 mg tablet extended release 24 hr 100 mg PO DAILY Patient Comments: takes at about noon Rx Instructions: Take with 50 mg tab for total dose of 150 mg per day desvenlafaxine 50 mg tablet extended release 24 hr 50 mg PO DAILY Rx Instructions: Take with 100 mg tab for total daily dose of 150 mg atorvastatin 80 mg tablet 80 mg PO DAILY Patient Comments: take at about midnight Humalog KwikPen Insulin 200 unit/mL (3 mL) insulin pen 50 unit SUBCUT DAILY cholecalciferol (vitamin D3) 25 mcg (1,000 unit) tablet 25 mcg PO DAILY Patient Comments: takes at about noon olopatadine 0.1 % drops 1 drp EYE-BOTH BID Patient Comments: Instill 1 drop in the both eyes twice daily (DME) pen needle, diabetic [BD Ultra-Fine Mini Pen Needle] 31 gauge x 3/16 needle See Rx Instructions .ROUTE .MEDSUPPLY Qty: 50 Rx Instructions: As directed (DME) NovoFine Plus 32 gauge x 1/6 needle See Rx Instructions .ROUTE .MEDSUPPLY Qty: 100 Patient Comments: USE UP TO 6 TIMES A DAY TO INJECT INSULIN Rx Instructions: As directed (DME) chavez.stocking,knee,reg,smal Misc See Rx Instructions .Route Qty: 2 2RF Rx Instructions: 15-20mmHg, wear morning until bedtime ondansetron 4 mg tablet,disintegrating 4 mg PO QID PRN (Reason: nausea and vomiting) Qty: 10 0RF tramadol 50 mg tablet 50 mg PO Q6H PRN (Reason: pain) Qty: 10 0RF Referrals: Timur Schwartz MD [Primary Care Provider] - Stand Alone Forms: Patient Portal/API
[2023-09-20 10:13] LABS: Add Manual Diff / Slide Review NO; Basophils Absolute Auto 0 /uL (0-100); Basophils Percent Auto 0.6 % (0-2); Eosinophils Absolute Auto 100 /uL (0-450); Eosinophils Percent Auto 0.8 % (2-4); Hemoglobin 10.3 g/dL (12.0-16.0); Lymphocytes Absolute Auto 400 /uL (1100-4500); Lymphocytes Percent Auto 5.5 % (25-40); Mean Corpuscular HGB Conc 31.1 % (30-36); Mean Corpuscular Hemoglobin 25.4 PG (26-34); Mean Corpuscular Volume 81.8 fL (80-100); Monocytes Absolute Auto 700 /uL (0-900); Monocytes Percent Auto 9.2 % (3-14); Neutrophils Absolute Auto 6100 /uL (1500-7000); Neutrophils Percent Auto 83.9 % (50-75); Platelet Count 82 X10^3/uL (150-400); Red Blood Cell Count 4.03 X10^6/uL (4.0-5.2); White Blood Cell Count 7.2 X10^3/uL (4.5-11.0)
[2023-09-20 10:24] LABS: INR 1.1 (0.9-1.3)
[2023-09-20 10:28] LABS: Alanine Aminotransferase 19 IU/L (<35); Albumin 3.1 g/dL (3.5-5.0); Albumin Globulin Ratio 0.7 (1.0-2.8); Alkaline Phosphatase 223 U/L (38-126); Aspartate Aminotransferase 34 IU/L (14-36); BUN Creatinine Ratio 37.6 (6-22); Blood Urea Nitrogen 47 mg/dL (7-17); Calcium 9.6 mg/dL (8.4-10.2); Carbon Dioxide 28 mmol/L (22-32); Chloride 105 mmol/L (98-107); Estimated Glomerular Filt Rate 47 mL/min (>60); Globulin 4.7 g/dL (1.7-4.1); Glucose 297 mg/dL (80-110); HEMOLYSIS < 15 (0-50); Lipase 194 U/L (23-300); Potassium 4.7 mmol/L (3.4-5.1); Sodium 136 mmol/L (137-145); Total Protein 7.8 g/dL (6.3-8.2)
--- NOTE | 2023-09-20 11:16 | DI.RAD.S_ITS ---
PROCEDURE: XR CHEST 1V INDICATIONS: shortness of breath TECHNIQUE: One view of the chest was acquired. COMPARISON: [facility], CR, XR CHEST 1V, 08/15/2023, 22:07. [facility], CR, XR CHEST 1V, 08/10/2023, 17:36. FINDINGS: Surgical changes and devices: None. Lungs and pleura: Low lung volumes. No dense consolidation or pleural effusion. Mediastinum: Unremarkable cardiomediastinal contours. Normal heart size. Bones and chest wall: Degenerative changes. IMPRESSION: Low lung volumes on single view radiograph, limiting evaluation. No acute abnormality. Dictated by: Gerald Pereira M.D. on 09/20/2023 at 12:17 Approved by: Gerald Pereira M.D. on 09/20/2023 at 12:17
[2023-09-20 12:00] LABS: Influenza A - CEPHEID Flu A NEGATIVE (NEGATIVE); Influenza B - CEPHEID Flu B NEGATIVE (NEGATIVE); Respiratory Syncytial Virus Negative (Negative)
[2023-09-20 12:02] LABS: COVID-19 CEPHEID 4-PLEX PCR POSITIVE (Negative)
[2023-09-20 13:22] LABS: Appearance Urine UA CLEAR; Bilirubin Urine UA NEGATIVE (NEGATIVE); Color Urine UA YELLOW; Glucose Urine UA 2+ g/dL (Negative); Ketones Urine UA NEGATIVE (NEGATIVE); Leukocyte Esterase Urine UA NEGATIVE (NEGATIVE); Nitrite Urine UA NEGATIVE (Negative); Occult Blood Urine UA NEGATIVE (Negative); Protein Urine UA NEGATIVE (Negative); Urobilinogen Urine UA 0.2 E.U./dL (0.2)
[2023-09-20 13:24] LABS: pH Urine UA 5.5 (4.5-8.0)
[2023-09-20 13:39] LABS: Bacteria Urine Moderate (10-30); Culture Indicated Urine Cult Not Indicated; Hyaline Casts Urine 1-5/LPF; RBC Urine None Seen (0-5/HPF); Squamous Epithelial Cell Urine 0-1 /HPF (0-5/HPF); Urine Volume 10mL (spun); WBC Urine 0-1/HPF (0-5/HPF)
== END 2023-09-20 14:00 | disposition home or self-care (01) ==
PROVIDERS: Emergency Provider Emergency Medicine; Family Provider Internal Medicine; PCP Internal Medicine
DX: R18.8 Other ascites (principal); U07.1 COVID-19
CPT/HCPCS: 0241U; 36415; 51701; 71045; 80053; 81001; 83690; 85025; 85610; 99283; 99284